=== PATIENT | female | born 1960 | race Caucasian/White ===

== ENCOUNTER 2016-06-02 12:43 | Inpatient (IN) | payer OTHER ==
[~2016-06-02] VITALS: Ht 162.6 cm; Wt 70.6 kg
[2016-06-02] VITALS (20 sets, daily range): BP systolic 106–122; BP diastolic 58–74; PULSE 77–104; RESP 16–20; BMI 28.1; BMI 32.8
[~2016-06-02 12:43] MED LIST: DEC2 PO; HYDR-906 PO; IBUP-1542 PO; LOSA25TA5 PO
[2016-06-02] MEDS ORDERED: FLUCONAZOLE 100 MG TAB PO SCH (14:30)
[2016-06-02] MEDS: SOD CHLORIDE 0.9% 1,000 ML IV SCH (15:15)
[2016-06-02] MEDS: ACYCLOVIR 400 MG TAB PO SCH ×2 (15:30→23:29)
--- NOTE | 2016-06-02 15:39 | CONS ---
Date/Time of Note Date/Time of Note DATE: 06/02/16 TIME: 15:19 Assessment/Plan Assessment/Plan Chief Complaint/Hosp Course 56 yo female with massive neck mass causing tracheal compression and airway compromise s/p tracheostomy placement. 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 Pt was given cycle 1A and 1B of R HyperCVAD but had only a partial response to therapy. She is now being admitted for cycle 1 of R-CODOX- M. Pt now afebrile and is now off antibiotics. Problems: Additional Assessment/Plan Additional Assessment/Plan -pt is to start cycle 1 R CODOX -M -Rituximab (Rituxan) as follows: * Cycle 1: 375 mg/m2 (660mg) IV on Day 1 -Cyclophosphamide (Cytoxan) 800 mg/m2 ( 1415mg) IV once per day on days 1 & 2 -Vincristine (Oncovin) 1.0 mg (dose reduced for neuropathy) days 1 & 15 -Doxorubicin (Adriamycin) 50 mg/m2 (88mg) IV once on day 1 -Methotrexate (MTX) 100mg/m2 (175mg) IV over 1 hour then 900mg/m2 (1590mg) over 23 hours on day 15. will start Na HCo3 prior to MTX infusion and only start MTX once Urine Ph > 7.0. Leucovorin 25mg IV q 4 hours will start 36 hours after MTX starts until MTX level is < 0.05. 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 all steroids should be discontinued for now unless they are part of the chemotherapy regimen -continue to work with physical therapy. # Neuropathy -gabapentin 300mg TID Approximately 40 min were spent at patient's bedside and in coordination of her care Consultation Date/Type/Reason Admit Date/Time 06/02/16 Date of Consultation: Jun 02, 2016 Type of Consultation: Hematology Reason for Consultation Burkitt's lymphoma Referring Provider: TELLY SOLANO MD Hx of Present Illness 56-year-old female over the last month who has been noticing a large swelling in her neck associated with difficulty breathing, voice changes and dysphagia. In the ER, the patient had a CT scan of the soft tissues of the neck that showed a large thyroid mass. Pt was subsequently been trached. She has since been diagnosed with aggressive STAGE IIB Burkitts lymphoma of the neck causing tracheal deviation. Of note her initial LDH was greater than 800. She started chemotherapy with R HyperCVAD but had debilitating neuropathy and only a partial response with cycle 1A and Cycle 1B. she is thus being electively admitted to start chemotherapy with R CODOX- M / IVAC. She currently feels well and is tolerating a puree diet. She denies any fevers or problems breathing Constitutional: no complaints Eyes: no complaints ENT: no complaints Respiratory: no complaints Cardiovascular: no complaints Gastrointestinal: no complaints Genitourinary: no complaints Musculoskeletal: bone/joint pain Skin: no complaints Neurologic: other (neuropathy) Psychological: anxiety Past Medical History hypothyroidism burkitts lymphoma Past Surgical History Past Surgical Hx: no surgical history Family History Significant Family History: no pertinent family hx Social History Smoking Status: Never smoker Drug Use: none Exam/Review of Systems Vital Signs Vitals Vital Signs Date Time Temp Pulse Resp B/P Pulse Ox O2 Delivery O2 Flow Rate FiO2 06/02/16 13:24 99.0 104 20 107/74 100 Room Air Exam Constitutional: alert, frail, oriented Psych: anxiety Head: normocephalic Eyes: nl conjunctiva ENMT: other (trach in place) Neck: non-tender, supple Respiratory: clear to auscultation, normal air movement Cardiovascular: regular rate and rhythm Gastrointestinal: soft Musculoskeletal: nl extremities to inspection, nl gait and stance Extremities: normal pulses Medications Medications Current Medications Sodium Chloride (NS) 1,000 ml @ 75 mls/hr [id number] IV Last administered on 06/06at 15:15; Admin Dose 75 MLS/HR; Start 06/02/16 at 14:30 Acyclovir (Zovirax) 400 mg BID PO ; Start 06/02/16 at 14:30 Fluconazole (Diflucan) 100 mg DAILY PO ; Start 06/02/16 at 14:30 CHANDRIKA MERLOS M.D. Jun 02, 2016 15:36
[2016-06-02 16:32] LABS: BASOPHILS % 0.1 % (0.0-2.0); EOSINOPHILS % 0.8 % (0.0-7.0); HEMATOCRIT 24.4 % (37.0-47.0); HEMOGLOBIN 8.3 g/dl (12.0-16.0); LYMPHOCYTES # 0.9 10^3/ul (0.8-2.9); LYMPHOCYTES % 14.3 % (15.0-51.0); MEAN CORPUSCULAR HEMOGLOBIN 28.8 pg (29.0-33.0); MEAN CORPUSCULAR HGB CONC 34.1 g/dl (32.0-37.0); MEAN CORPUSCULAR VOLUME 84.5 fl (82.0-101.0); MEAN PLATELET VOLUME 6.7 fl (7.4-10.4); MONOCYTE # 0.6 10^3/ul (0.3-0.9); MONOCYTES % 9.8 % (0.0-11.0); NEUTROPHIL # 4.8 10^3/ul (1.6-7.5); PLATELET COUNT 179 10^3/UL (140-440); RED BLOOD COUNT 2.89 10^6/ul (4.20-5.40); RED CELL DISTRIBUTION WIDTH 18.3 % (11.5-14.5); UNCORRECTED WBC 6.4 10^3/ul (4.8-10.8); WHITE BLOOD COUNT 6.4 10^3/ul (4.8-10.8)
[2016-06-02 16:35] LABS: ALBUMIN 3.1 g/dl (3.3-4.9); POTASSIUM 4.1 mmol/L (3.5-5.1)
[2016-06-02 16:37] LABS: BILIRUBIN,INDIRECT 0.5 mg/dl (0-1.1); BILIRUBIN,TOTAL 0.5 mg/dl (0.2-1.3); CREATININE 0.37 mg/dl (0.44-1.00)
[2016-06-02 16:38] LABS: ALBUMIN/GLOBULIN RATIO 1.24; TOTAL PROTEIN 5.6 g/dl (6.1-8.1); URIC ACID 2.7 mg/dl (3.1-7.9)
[2016-06-02 16:39] LABS: CALCIUM 8.6 mg/dl (8.4-10.2)
[2016-06-02 16:49] LABS: CONDITION 1; LH ANALYZER COMMENTS 1; SUSPECT 1
[2016-06-02] MEDS ORDERED: DEXAMETHASONE 10 MG/ML 1 ML INJ IV PRN (18:30)
[2016-06-02] MEDS ORDERED: DIPHENHYDRAMINE 50 MG INJ IV PRN (18:30)
[2016-06-02] MEDS ORDERED: [UNRECOGNIZED DRUG - REMARK] XX SCH (19:00)
[2016-06-02] MEDS ORDERED: ONDANSETRON IV ONE (19:30)
[2016-06-02] MEDS ORDERED: DIPHENHYDRAMINE IV ONE (19:30)
[2016-06-02] MEDS ORDERED: DEXAMETHASONE IV ONE (19:30)
[2016-06-02] MEDS ORDERED: [UNRECOGNIZED DRUG - OTHER] IV ONE (19:30)
[2016-06-02] MEDS ORDERED: RITUXIMAB IV SCH (20:00)
[2016-06-02] MEDS ORDERED: SOD CHLORIDE 0.9% IV SCH (20:00)
[2016-06-03] VITALS (23 sets, daily range): BP systolic 103–121; BP diastolic 59–73; PULSE 64–101; RESP 16–20
[2016-06-03] MEDS: SOD CHLORIDE 0.9% IV SCH (01:19)
[2016-06-03] MEDS: CYCLOPHOSPHAMIDE IV SCH (01:19)
[2016-06-03] MEDS ORDERED: SOD CHLORIDE 0.9% IV SCH ×3 (02:00→18:00)
[2016-06-03] MEDS ORDERED: VINCRISTINE IV SCH ×2 (02:00→18:00)
[2016-06-03] MEDS ORDERED: DOXORUBICIN IV SCH (03:00)
[2016-06-03] MEDS: SOD CHLORIDE 0.9% 1,000 ML IV SCH ×3 (03:29→15:46)
[2016-06-03 05:24] LABS: BASOPHILS % 0.2 % (0.0-2.0); EOSINOPHILS % 0.2 % (0.0-7.0); HEMATOCRIT 21.3 % (37.0-47.0); HEMOGLOBIN 7.3 g/dl (12.0-16.0); LYMPHOCYTES # 0.8 10^3/ul (0.8-2.9); LYMPHOCYTES % 11.5 % (15.0-51.0); MEAN CORPUSCULAR HEMOGLOBIN 28.9 pg (29.0-33.0); MEAN CORPUSCULAR HGB CONC 34.3 g/dl (32.0-37.0); MEAN CORPUSCULAR VOLUME 84.3 fl (82.0-101.0); MEAN PLATELET VOLUME 6.8 fl (7.4-10.4); MONOCYTE # 0.2 10^3/ul (0.3-0.9); MONOCYTES % 2.6 % (0.0-11.0); NEUTROPHIL # 5.7 10^3/ul (1.6-7.5); NEUTROPHILS % 85.5 % (39.0-77.0); PLATELET COUNT 188 10^3/UL (140-440); RED BLOOD COUNT 2.53 10^6/ul (4.20-5.40); RED CELL DISTRIBUTION WIDTH 18.7 % (11.5-14.5); UNCORRECTED WBC 6.7 10^3/ul (4.8-10.8); WHITE BLOOD COUNT 6.7 10^3/ul (4.8-10.8)
[2016-06-03 05:28] LABS: CONDITION 1; LH ANALYZER COMMENTS 1
[2016-06-03 05:38] LABS: POTASSIUM 4.1 mmol/L (3.5-5.1)
[2016-06-03 05:39] LABS: CREATININE 0.35 mg/dl (0.44-1.00)
[2016-06-03 05:40] LABS: ALBUMIN/GLOBULIN RATIO 1.11; BILIRUBIN,INDIRECT 0.4 mg/dl (0-1.1); BILIRUBIN,TOTAL 0.4 mg/dl (0.2-1.3); TOTAL PROTEIN 5.7 g/dl (6.1-8.1); URIC ACID 2.5 mg/dl (3.1-7.9)
[2016-06-03 05:41] LABS: CALCIUM 8.2 mg/dl (8.4-10.2)
[2016-06-03] MEDS: FLUCONAZOLE 100 MG TAB PO SCH (09:59)
[2016-06-03] MEDS: ACYCLOVIR 400 MG TAB PO SCH ×2 (09:59→21:20)
--- NOTE | 2016-06-03 11:04 | CONS ---
Date/Time of Note Date/Time of Note DATE: 06/03/16 TIME: 11:00 Assessment/Plan Assessment/Plan Chief Complaint/Hosp Course 56 yo female with massive neck mass causing tracheal compression and airway compromise s/p tracheostomy placement. 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 Pt was given cycle 1A and 1B of R HyperCVAD but had only a partial response to therapy and severe side effects. We have thus changed her chemotherapy regimen. She is now being admitted for cycle 1 of R-CODOX-M. Pt now afebrile and is now off antibiotics. Problems: Additional Assessment/Plan -continue with cycle 1 R CODOX -M. today is day 2 -Rituximab (Rituxan) as follows: * Cycle 1: 375 mg/m2 (660mg) IV on Day 1 -Cyclophosphamide (Cytoxan) 800 mg/m2 ( 1415mg) IV once per day on days 1 & 2 -Vincristine (Oncovin) 1.0 mg (dose reduced for neuropathy) days 1 & 15 -Doxorubicin (Adriamycin) 50 mg/m2 (88mg) IV once on day 1 -Methotrexate (MTX) 100mg/m2 (175mg) IV over 1 hour then 900mg/m2 (1590mg) over 23 hours on day 15. will start Na HCo3 prior to MTX infusion and only start MTX once Urine Ph > 7.0. Leucovorin 25mg IV q 4 hours will start 36 hours after MTX starts until MTX level is < 0.05. 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 all steroids should be discontinued for now unless they are part of the chemotherapy regimen -continue to work with physical therapy. # Neuropathy -gabapentin 300mg TID Approximately 40 min were spent at patient's bedside and in coordination of her care Consultation Date/Type/Reason Admit Date/Time Jun 02, 2016 at 15:10 Initial Consult Date 06/02/16 Type of Consultation: Hematology Reason for Consultation burkitt's lymphoma, of neck Referring Provider: TELLY SOLANO MD 24 HR Interval Summary Free Text/Dictation patient has started chemotherapy. today is day 2. tolerated chemotherapy well. working with physical therapy Exam/Review of Systems Vital Signs Vitals Vital Signs Date Time Temp Pulse Resp B/P Pulse Ox O2 Delivery O2 Flow Rate FiO2 06/03/16 09:00 99 20 99 Aerosol 5.0 28 06/03/16 07:15 114/67 06/03/16 04:00 97.6 Intake and Output 06/02/16 06/02/16 06/03/16 15:00 23:00 07:00 Intake Total 524.5 ml 1656 ml Output Total 850 ml Balance 524.5 ml 806 ml Exam Constitutional: alert, oriented Head: atraumatic, normocephalic Eyes: nl conjunctiva Neck: other (trach in place) Respiratory: clear to auscultation, normal air movement Cardiovascular: regular rate and rhythm Gastrointestinal: soft Musculoskeletal: nl extremities to inspection, nl gait and stance Extremities: normal pulses Results Result Diagram: 06/03/16 0415 06/03/16 0415 Results 24 hrs Laboratory Tests Test 06/02/16 15:45 06/03/16 04:15 Alanine Aminotransferase (ALT/SGPT) 80 H 79 H Albumin 3.1 L 3.0 L Albumin/Globulin Ratio 1.24 1.11 Alkaline Phosphatase 102 96 Anion Gap 7 L 10 Aspartate Amino Transf (AST/SGOT) 62 H 48 H Basophils # 0.0 0.0 Basophils % 0.1 0.2 Blood Morphology Comment Blood Urea Nitrogen 3 L 5 L Calcium Level 8.6 8.2 L Carbon Dioxide Level 34 H 29 Chloride Level 101 106 Creatinine 0.37 L 0.35 L Direct Bilirubin 0.00 0.00 Eosinophils # 0.0 0.0 Eosinophils % 0.8 0.2 Globulin 2.50 2.70 Glucose Level 94 163 Hematocrit 24.4 L 21.3 L Hemoglobin 8.3 L 7.3 L Indirect Bilirubin 0.5 0.4 Lactate Dehydrogenase 1541 H 1414 H Lymphocytes # 0.9 0.8 Lymphocytes % 14.3 L 11.5 L Mean Corpuscular Hemoglobin 28.8 L 28.9 L Mean Corpuscular Hemoglobin Concent 34.1 34.3 Mean Corpuscular Volume 84.5 84.3 Mean Platelet Volume 6.7 L 6.8 L Monocytes # 0.6 0.2 L Monocytes % 9.8 2.6 Neutrophils # 4.8 5.7 Neutrophils % 75.0 85.5 H Nucleated Red Blood Cells # 0.0 0.0 Nucleated Red Blood Cells % 0.0 0.0 Platelet Count 179 # 188 Potassium Level 4.1 4.1 Red Blood Count 2.89 L 2.53 L Red Cell Distribution Width 18.3 H 18.7 H Sodium Level 138 141 Total Bilirubin 0.5 0.4 Total Protein 5.6 L 5.7 L Uric Acid 2.7 L 2.5 L White Blood Count 6.4 # 6.7 Medications Medications Current Medications Sodium Chloride (NS) 1,000 ml @ 100 mls/hr Q10H IV Last administered on at 03:29; Admin Dose 100 MLS/HR; Start 06/02/16 at 14:30 Acyclovir 400 mg 400 mg BID PO Last administered on 06/03/16at 09:59; Admin Dose 400 MG; Start 06/02/16 at 14:30 Cyclophosphamide 1 gm/ Cyclophosphamide 415 mg/Sodium Chloride 250 ml @ 125 mls /hr Q24H IV Last administered on 06/03/16at 01:19; Admin Dose 125 MLS/HR; Start 06/03/16 at 00:00; Stop 06/04/16 at 01:59 Vincristine Sulfate 1 mg/ Sodium Chloride 51 ml @ 102 mls/hr Q15D IV Last administered on 06/03/16at 04:59; Admin Dose 102 MLS/HR; Start 06/03/16 at 02: 00; Stop 06/18/16 at 02:29 Methotrexate 175 mg/Sodium Chloride 250 ml @ 250 mls/hr ONCE IV ; Start at 03:00; Stop 06/18/16 at 03:59 Methotrexate 1590 mg/Sodium Chloride 1,000 ml @ 43.478 mls/ hr Q23H IV ; Start 06/18/16 at 04:00; Stop 06/19/16 at 02:59 Ondansetron HCl 16 mg/ Dexamethasone 10 mg/ Diphenhydramine HCl 25 mg/Dextrose 59.5 ml @ 252 mls/hr ONCE ONCE IV ; Start 06/03/16 at 23:30; Stop 06/03/16 at 23:44 Ondansetron HCl/ Dexamethasone/ Diphenhydramine HCl/Dextrose (Zofran Inj/ Decadron/Benadryl/ D5W) 59.5 ml @ 252 mls/hr ONCE ONCE IV ; Start 06/18/16 at 01:30; Stop 06/18/16 at 01:44 Diphenhydramine HCl (Benadryl) 25 mg Q4H PRN IV ALLERGIC REACTION; Start 06/02 at 18:30 Dexamethasone (Decadron) 10 mg Q4H PRN IV ALLERGIC REACTION; Start 06/02/16 at 18:30 Filgrastim 300 mcg 300 mcg DAILY@17 SC ; Start 06/04/16 at 17:00; Stop at 17:01 Leucovorin Calcium/Dextrose (Leucovorin Calcium Inj/D5W) 50 ml @ 50 mls/hr Q6H IV ; Start 06/19/16 at 15:00 Fluconazole 100 mg 100 mg DAILY PO Last administered on 06/03/16at 09:59; Admin Dose 100 MG; Start 06/03/16 at 09:00 Ondansetron HCl 8 mg/Sodium Chloride 54 ml @ 216 mls/hr Q6H PRN IV NAUSEA AND/ OR VOMITING; Start 06/02/16 at 18:30 Sodium Bicarbonate/ Dextrose (Na Bicarb/D5W) 1,000 ml @ 125 mls/hr Q8H IV ; Start 06/17/16 at 03:00 CHANDRIKA MERLOS M.D. Jun 03, 2016 11:04
--- NOTE | 2016-06-03 16:34 | QN ---
Documentation Comment [id number] GUERLINE SULLIVAN MD Jun 03, 2016 16:34
[2016-06-03] MEDS ORDERED: NACL 0.9% 3 ML SYG IV SCH (17:00)
[2016-06-03] MEDS ORDERED: BISACODYL (EC) 5 MG TAB PO PRN (17:00)
[2016-06-03] MEDS ORDERED: MAGNESIUM HYDROXIDE 30ML CUP PO PRN (17:00)
[2016-06-03] MEDS ORDERED: BISACODYL 10 MG SUPP PR PRN (17:00)
[2016-06-03] MEDS ORDERED: NA PHOSPHATE/BIPHOS 133 ML ENEMA PR PRN (17:00)
[2016-06-03] MEDS: ALBUTEROL/IPRATROPIUM (NEB) 3 ML AMP HHN SCH ×2 (17:30→21:29)
--- NOTE | 2016-06-03 18:03 | HP ---
DATE OF ADMISSION: 06/02/2016 HISTORY OF PRESENT ILLNESS: A 56-year-old female with massive neck mass in the past causing trachea l compression, airway compromise, status post tracheostomy placement. The patient has Burkitt's lym phoma, getting chemotherapy by Dr. Thomas, admitted again for chemotherapy. The patient is being adm itted for further management. The patient has a history of respiratory failure, Burkitt's lymphoma, history of cholelithiasis, right umbilical hernia, tracheostomy, status post pancytopenia. The pat ient has a history of healthcare-associated pneumonia, history of encephalopathy, history of chemoth erapy-induced pancytopenia, history of abdominal surgery. ALLERGY HISTORY: NEGATIVE. FAMILY HISTORY: Negative. SOCIAL HISTORY: Noncontributory at this point. MEDICATION HISTORY: The patient is on: 1. Zovirax. 2. Cyclophosphamide. 3. Decadron. 4. Benadryl. 5. Neupogen. 6. Diflucan. 7. Leucovorin 8. Methotrexate. 9. Zofran. 10. Sodium bicarbonate. 11. Vincristine. 12. Decadron. 13. [place]. 14. Ibuprofen. 15. Losartan. REVIEW OF SYSTEMS: Limited because of the tracheostomy. PHYSICAL EXAMINATION: GENERAL: The patient is awake and alert. VITAL SIGNS: Pulse 99, blood pressure . HEENT: Head is atraumatic, normocephalic. NECK: Tracheostomy in place. LUNGS: Clear. CARDIOVASCULAR: S1, S2 are normal. ABDOMEN: Soft. Bowel sounds positive. No palpable mass or hepatosplenomegaly. Surgical scar on a bdominal area. EXTREMITIES: There is no cyanosis, clubbing, edema. CENTRAL NERVOUS SYSTEM: The patient is awake, alert with no focal deficit. LABORATORY DATA: Sodium 130, potassium 4.1, BUN of 3, creatinine 0.37. Lactate dehydrogenase 1541. Alkaline phosphatase is 102, AST 62, ALT 80. The patient had a right lower lobe patchy consolidat ion on the previous x-ray done. IMPRESSION: The patient has Burkitt's lymphoma status post tracheostomy, status post thyroid mass, status post pancytopenia, abnormal liver function test. The patient has anemia. PLAN: Continue recommendation from Dr. Thomas for chemotherapy. The patient will be on oxygen and b ronchodilators as needed. Dictated By: GUERLINE MORALES/YUNI Conf#: [id number] DID#: [id number]
[2016-06-03] MEDS: NYSTATIN SUSP 5 ML CUP PO SCH (21:19)
[2016-06-03] MEDS: GABAPENTIN 100 MG CAP PO SCH (21:20)
[2016-06-03] MEDS: ARTIFICIAL TEARS 15 ML OPH BOTH EYES SCH (21:53)
[2016-06-03] MEDS ORDERED: [UNRECOGNIZED DRUG - OTHER] IV ONE (23:30)
[2016-06-03] MEDS ORDERED: DIPHENHYDRAMINE IV ONE (23:30)
[2016-06-03] MEDS ORDERED: ONDANSETRON IV ONE (23:30)
[2016-06-03] MEDS ORDERED: DEXAMETHASONE IV ONE (23:30)
[2016-06-04] MEDS: SOD CHLORIDE 0.9% IV SCH (00:43)
[2016-06-04] MEDS: CYCLOPHOSPHAMIDE IV SCH (00:43)
[2016-06-04 00:50] VITALS: BP 98/57; PULSE 75; RESP 18
[2016-06-04 01:14] VITALS: BP 99/57; PULSE 76; RESP 18
[2016-06-04] MEDS: ALBUTEROL/IPRATROPIUM (NEB) 3 ML AMP HHN SCH ×6 (01:32→21:28)
[2016-06-04] MEDS: LEVOTHYROXINE 100 MCG TAB PO SCH (05:23)
[2016-06-04] MEDS: SOD CHLORIDE 0.9% 1,000 ML IV SCH ×2 (05:23→18:39)
[2016-06-04] MEDS: PANTOPRAZOLE 40 MG INJ IV SCH (05:23)
[2016-06-04 05:46] VITALS: BP 105/60; PULSE 77; RESP 18
[2016-06-04 06:07] LABS: ALBUMIN 2.6 g/dl (3.3-4.9)
[2016-06-04 06:09] LABS: BILIRUBIN,INDIRECT 0.1 mg/dl (0-1.1); BILIRUBIN,TOTAL 0.1 mg/dl (0.2-1.3); CREATININE 0.31 mg/dl (0.44-1.00)
[2016-06-04 06:10] LABS: ALBUMIN/GLOBULIN RATIO 1.13; CALCIUM 7.9 mg/dl (8.4-10.2); TOTAL PROTEIN 4.9 g/dl (6.1-8.1)
[2016-06-04 07:31] LABS: EOSINOPHILS % 0.1 % (0.0-7.0); HEMOGLOBIN 7.1 g/dl (12.0-16.0); LYMPHOCYTES # 0.3 10^3/ul (0.8-2.9); LYMPHOCYTES % 4.7 % (15.0-51.0); MEAN CORPUSCULAR HEMOGLOBIN 28.6 pg (29.0-33.0); MEAN CORPUSCULAR HGB CONC 33.6 g/dl (32.0-37.0); MEAN CORPUSCULAR VOLUME 85.1 fl (82.0-101.0); MEAN PLATELET VOLUME 6.7 fl (7.4-10.4); MONOCYTE # 0.2 10^3/ul (0.3-0.9); MONOCYTES % 2.6 % (0.0-11.0); NEUTROPHIL # 6.6 10^3/ul (1.6-7.5); NEUTROPHILS % 92.6 % (39.0-77.0); PLATELET COUNT 195 10^3/UL (140-440); RED BLOOD COUNT 2.47 10^6/ul (4.20-5.40); RED CELL DISTRIBUTION WIDTH 19.3 % (11.5-14.5); UNCORRECTED WBC 7.1 10^3/ul (4.8-10.8); WHITE BLOOD COUNT 7.1 10^3/ul (4.8-10.8)
[2016-06-04 07:35] LABS: CONDITION 1; LH ANALYZER COMMENTS 1
[2016-06-04 08:00] VITALS: BP 109/56; PULSE 102; RESP 20
--- NOTE | 2016-06-04 08:33 | CONS ---
Date/Time of Note Date/Time of Note DATE: 06/04/16 TIME: 08:29 Assessment/Plan Assessment/Plan Chief Complaint/Hosp Course 56 yo female with massive neck mass causing tracheal compression and airway compromise s/p tracheostomy placement. 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 Pt was given cycle 1A and 1B of R HyperCVAD but had only a partial response to therapy and severe side effects. We have thus changed her chemotherapy regimen. She is now being admitted for cycle 1 of R-CODOX-M. Problems: (1) Tracheostomy present Status: Acute (2) Lymphoma Status: Chronic Additional Assessment/Plan -continue with cycle 1 R CODOX -M. today is day 2 -Rituximab (Rituxan) as follows: * Cycle 1: 375 mg/m2 (660mg) IV on Day 1 -Cyclophosphamide (Cytoxan) 800 mg/m2 ( 1415mg) IV once per day on days 1 & 2 -Vincristine (Oncovin) 1.0 mg (dose reduced for neuropathy) days 1 & 15 -Doxorubicin (Adriamycin) 50 mg/m2 (88mg) IV once on day 1 -Methotrexate (MTX) 100mg/m2 (175mg) IV over 1 hour then 900mg/m2 (1590mg) over 23 hours on day 15. will start Na HCo3 prior to MTX infusion and only start MTX once Urine Ph > 7.0. Leucovorin 25mg IV q 4 hours will start 36 hours after MTX starts until MTX level is < 0.05. 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 all steroids should be discontinued for now unless they are part of the chemotherapy regimen -continue to work with physical therapy. 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 -uric acid level ok -will continue to monitor LDH Approximately 40 min were spent at patient's bedside and in coordination of her care Consultation Date/Type/Reason Admit Date/Time Jun 02, 2016 at 15:10 Initial Consult Date 12/12/16 Type of Consultation: Hematology Reason for Consultation burkitt's lymphoma Referring Provider: TELLY SOLANO MD 24 HR Interval Summary Free Text/Dictation no acute overnight events. working with physical therapy Exam/Review of Systems Vital Signs Vitals Vital Signs Date Time Temp Pulse Resp B/P Pulse Ox O2 Delivery O2 Flow Rate FiO2 06/04/16 05:46 98.9 77 18 105/60 98 Trach Collar 5.0 06/04/16 05:42 28 Intake and Output 06/03/16 06/03/16 06/04/16 15:00 23:00 07:00 Intake Total 144 ml 1600 ml 350 ml Output Total 1000 ml 850 ml Balance 144 ml 600 ml -500 ml Exam Constitutional: alert, oriented Psych: no complaints Head: atraumatic, normocephalic Eyes: nl conjunctiva ENMT: other (trach in place) Neck: other (mass has decreased in size), supple Respiratory: clear to auscultation, normal air movement Cardiovascular: regular rate and rhythm Gastrointestinal: soft Musculoskeletal: nl extremities to inspection, nl gait and stance Extremities: normal pulses Neurological: DIETETIC AIDE II-XII intact Results Result Diagram: 06/04/1642706/04/16427 Results 24 hrs Laboratory Tests Test 06/04/16 04:28 Alanine Aminotransferase (ALT/SGPT) 61 Albumin 2.6 L Albumin/Globulin Ratio 1.13 Alkaline Phosphatase 78 Anion Gap 14 Aspartate Amino Transf (AST/SGOT) 37 Basophils # 0.0 Basophils % 0.0 Blood Morphology Comment Blood Urea Nitrogen 5 L Calcium Level 7.9 L Carbon Dioxide Level 24 Chloride Level 111 H Creatinine 0.31 L Direct Bilirubin 0.00 Eosinophils # 0.0 Eosinophils % 0.1 Globulin 2.30 Glucose Level 191 Hematocrit 21.0 L Hemoglobin 7.1 L Indirect Bilirubin 0.1 Lactate Dehydrogenase 1089 H Lymphocytes # 0.3 L Lymphocytes % 4.7 L Mean Corpuscular Hemoglobin 28.6 L Mean Corpuscular Hemoglobin Concent 33.6 Mean Corpuscular Volume 85.1 Mean Platelet Volume 6.7 L Monocytes # 0.2 L Monocytes % 2.6 Neutrophils # 6.6 Neutrophils % 92.6 H Nucleated Red Blood Cells # 0.0 Nucleated Red Blood Cells % 0.0 Platelet Count 195 Potassium Level 3.0 L Red Blood Count 2.47 L Red Cell Distribution Width 19.3 H Sodium Level 146 H Total Bilirubin 0.1 L Total Protein 4.9 L Uric Acid 3.0 L White Blood Count 7.1 Medications Medications Current Medications Sodium Chloride (NS) 1,000 ml @ 100 mls/hr Q10H IV Last administered on at 05:23; Admin Dose 100 MLS/HR; Start 06/02/16 at 14:30 Acyclovir 400 mg 400 mg BID PO Last administered on 06/03/16at 21:20; Admin Dose 400 MG; Start 06/02/16 at 14:30 Methotrexate 175 mg/Sodium Chloride 250 ml @ 250 mls/hr ONCE IV ; Start at 03:00; Stop 06/16/16 at 03:59 Methotrexate 1590 mg/Sodium Chloride 1,000 ml @ 43.478 mls/ hr Q23H IV ; Start 06/16/16 at 04:00; Stop 06/17/16 at 02:59 Ondansetron HCl/ Dexamethasone/ Diphenhydramine HCl/Dextrose (Zofran Inj/ Decadron/Benadryl/ D5W) 59.5 ml @ 120 mls/hr ONCE IV ; Start 06/16/16 at 02:00 ; Stop 06/16/16 at 02:30 Diphenhydramine HCl (Benadryl) 25 mg Q4H PRN IV ALLERGIC REACTION; Start 06/02 at 18:30 Dexamethasone (Decadron) 10 mg Q4H PRN IV ALLERGIC REACTION; Start 06/02/16 at 18:30 Filgrastim 300 mcg 300 mcg DAILY@17 SC ; Start 06/04/16 at 17:00; Stop at 17:01 Leucovorin Calcium/Dextrose (Leucovorin Calcium Inj/D5W) 50 ml @ 50 mls/hr Q6H IV ; Start 06/17/16 at 15:00 Fluconazole 100 mg 100 mg DAILY PO Last administered on 06/03/16at 09:59; Admin Dose 100 MG; Start 06/03/16 at 09:00 Ondansetron HCl 8 mg/Sodium Chloride 54 ml @ 216 mls/hr Q6H PRN IV NAUSEA AND/ OR VOMITING; Start 06/02/16 at 18:30 Sodium Bicarbonate/ Dextrose (Na Bicarb/D5W) 1,000 ml @ 125 mls/hr Q8H IV ; Start 06/17/16 at 03:00 Ondansetron HCl (Zofran Inj) 4 mg Q6H PRN IV NAUSEA AND/OR VOMITING; Start at 17:00 Acetaminophen (Tylenol Tab) 650 mg Q6H PRN PO PAIN LEVEL 1-3 OR FEVER; Start 06/03/16 at 17:00 Acetaminophen (Tylenol Supp) 650 mg Q6H PRN AR PAIN LEVEL 1-3 OR FEVER; Start 06/03/16 at 17:00 Docusate Sodium (Colace) 100 mg Q12H PRN PO CONSTIPATION; Start 06/03/16 at 17 :00 Magnesium Hydroxide (Milk Of Mag) 30 ml DAILY PRN PO CONSTIPATION; Start 06/03 at 17:00 Bisacodyl (Dulcolax) 5 mg DAILY PRN PO CONSTIPATION; Start 06/03/16 at 17:00 Bisacodyl (Dulcolax Supp) 10 mg DAILY PRN AR CONSTIPATION; Start 06/03/16 at 17:00 Sodium Biphosphate/ Sodium Phosphate (Fleet Enema) 133 ml DAILY PRN AR CONSTIPATION; Start 06/03/16 at 17:00 Pantoprazole (Protonix Iv) 40 mg DAILY@06 IV Last administered on 06/04/16at 05 :23; Admin Dose 40 MG; Start 06/04/16 at 06:00 Enoxaparin Sodium (Lovenox) 30 mg DAILY SC ; Start 06/04/16 at 09:00 Allopurinol (Zyloprim) 300 mg DAILY PO ; Start 06/04/16 at 09:00 Eye Lubricant (Artificial Tears Oph) 2 drop QID BOTH EYES Last administered on 06/03/16at 21:53; Admin Dose 2 DROP; Start 06/03/16 at 21:00 Eye Lubricant ([place] Oint) 1 applic DAILY BOTH EYES ; Start 06/04/16 at 09:00 Gabapentin (Neurontin) 200 mg TID PO Last administered on 06/03/16at 21:20; Admin Dose 200 MG; Start 06/03/16 at 21:00 Levothyroxine Sodium (Synthroid) 100 mcg DAILY@06 PO Last administered on 06/04at 05:23; Admin Dose 100 MCG; Start 06/04/16 at 06:00 Nystatin 5 ml 5 ml QID PO Last administered on 06/03/16at 21:19; Admin Dose 5 ML; Start 06/03/16 at 21:00 Vincristine Sulfate/Sodium Chloride (Oncovin/NS) 51 ml @ 102 mls/hr 05 IV ; Start 06/17/16 at 05:00; Stop 06/17/16 at 05:29 CHANDRIKA MERLOS M.D. Jun 04, 2016 08:33
[2016-06-04] MEDS: ENOXAPARIN 30 MG/0.3 ML SYG SC SCH (09:33)
[2016-06-04] MEDS: ACYCLOVIR 400 MG TAB PO SCH ×2 (09:34→21:19)
[2016-06-04] MEDS: FLUCONAZOLE 100 MG TAB PO SCH (09:34)
[2016-06-04] MEDS: GABAPENTIN 100 MG CAP PO SCH ×3 (09:34→21:19)
[2016-06-04] MEDS: ALLOPURINOL 300 MG TAB PO SCH (09:34)
[2016-06-04] MEDS: NYSTATIN SUSP 5 ML CUP PO SCH ×4 (09:34→21:19)
[2016-06-04] MEDS: ARTIFICIAL TEARS 15 ML OPH BOTH EYES SCH ×4 (09:56→21:19)
[2016-06-04] MEDS: OCULAR LUBRICANT 3.5 GM OPH OINT BOTH EYES SCH (09:56)
[2016-06-04] MEDS ORDERED: POTASSIUM CHLORIDE 20 MEQ in SOD CHLORIDE 0.9% 100 ML IVPB ONE (10:00)
[2016-06-04] MEDS: FILGRASTIM 300 MCG INJ SC SCH (18:43)
--- NOTE | 2016-06-04 20:09 | PN ---
Date/Time of Note Date/Time of Note DATE: 06/04/16 TIME: 20:08 Assessment/Plan VTE Prophylaxis VTE Prophylaxis Intervention: other Lines/Catheters IV [facility] PICC Line Central line still needed: Yes Urinary Cath still in place: No Assessment/Plan Chief Complaint/Hosp Course IMPRESSION: The patient has Burkitt's lymphoma status post tracheostomy, status post thyroid mass, status post pancytopenia, abnormal liver function test. The patient has anemia. hypokalemiaplan chemo kcl Problems: Subjective 24 Hr Interval Summary Respiratory: No shortness of breath Gastrointestinal: no complaints Genitourinary: no complaints Exam/Review of Systems Vital Signs Vitals Vital Signs Date Time Temp Pulse Resp B/P Pulse Ox O2 Delivery O2 Flow Rate FiO2 06/04/16 16:37 80 20 100 Aerosol 5.0 28 06/04/16 08:00 98.0 109/56 Intake and Output 06/03/16 06/03/16 06/04/16 15:00 23:00 07:00 Intake Total 144 ml 1600 ml 350 ml Output Total 1000 ml 850 ml Balance 144 ml 600 ml -500 ml Exam Cardiovascular: regular rate and rhythm Gastrointestinal: nl liver, spleen, non-tender, soft Extremities: No edema 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, nl mental status Results Result Diagram: 06/04/1642706/04/16427 Results 24 hrs Laboratory Tests Test 06/04/16 04:28 Alanine Aminotransferase (ALT/SGPT) 61 Albumin 2.6 L Albumin/Globulin Ratio 1.13 Alkaline Phosphatase 78 Anion Gap 14 Aspartate Amino Transf (AST/SGOT) 37 Basophils # 0.0 Basophils % 0.0 Blood Morphology Comment Blood Urea Nitrogen 5 L Calcium Level 7.9 L Carbon Dioxide Level 24 Chloride Level 111 H Creatinine 0.31 L Direct Bilirubin 0.00 Eosinophils # 0.0 Eosinophils % 0.1 Globulin 2.30 Glucose Level 191 Hematocrit 21.0 L Hemoglobin 7.1 L Indirect Bilirubin 0.1 Lactate Dehydrogenase 1089 H Lymphocytes # 0.3 L Lymphocytes % 4.7 L Mean Corpuscular Hemoglobin 28.6 L Mean Corpuscular Hemoglobin Concent 33.6 Mean Corpuscular Volume 85.1 Mean Platelet Volume 6.7 L Monocytes # 0.2 L Monocytes % 2.6 Neutrophils # 6.6 Neutrophils % 92.6 H Nucleated Red Blood Cells # 0.0 Nucleated Red Blood Cells % 0.0 Platelet Count 195 Potassium Level 3.0 L Red Blood Count 2.47 L Red Cell Distribution Width 19.3 H Sodium Level 146 H Total Bilirubin 0.1 L Total Protein 4.9 L Uric Acid 3.0 L White Blood Count 7.1 Medications Medications Current Medications Sodium Chloride (NS) 1,000 ml @ 100 mls/hr Q10H IV Last administered on at 18:39; Admin Dose 100 MLS/HR; Start 06/02/16 at 14:30 Acyclovir 400 mg 400 mg BID PO Last administered on 06/04/16at 09:34; Admin Dose 400 MG; Start 06/02/16 at 14:30 Methotrexate 175 mg/Sodium Chloride 250 ml @ 250 mls/hr ONCE IV ; Start at 03:00; Stop 06/16/16 at 03:59 Methotrexate 1590 mg/Sodium Chloride 1,000 ml @ 43.478 mls/ hr Q23H IV ; Start 06/16/16 at 04:00; Stop 06/17/16 at 02:59 Ondansetron HCl/ Dexamethasone/ Diphenhydramine HCl/Dextrose (Zofran Inj/ Decadron/Benadryl/ D5W) 59.5 ml @ 120 mls/hr ONCE IV ; Start 06/16/16 at 02:00 ; Stop 06/16/16 at 02:30 Diphenhydramine HCl (Benadryl) 25 mg Q4H PRN IV ALLERGIC REACTION; Start 06/02 at 18:30 Dexamethasone (Decadron) 10 mg Q4H PRN IV ALLERGIC REACTION; Start 06/02/16 at 18:30 Filgrastim 300 mcg 300 mcg DAILY@17 SC Last administered on 06/04/16at 18:43; Admin Dose 300 MCG; Start 06/04/16 at 17:00; Stop 06/08/16 at 17:01 Leucovorin Calcium/Dextrose (Leucovorin Calcium Inj/D5W) 50 ml @ 50 mls/hr Q6H IV ; Start 06/17/16 at 15:00 Fluconazole 100 mg 100 mg DAILY PO Last administered on 06/04/16at 09:34; Admin Dose 100 MG; Start 06/03/16 at 09:00 Ondansetron HCl 8 mg/Sodium Chloride 54 ml @ 216 mls/hr Q6H PRN IV NAUSEA AND/ OR VOMITING; Start 06/02/16 at 18:30 Sodium Bicarbonate/ Dextrose (Na Bicarb/D5W) 1,000 ml @ 125 mls/hr Q8H IV ; Start 06/17/16 at 03:00 Ondansetron HCl (Zofran Inj) 4 mg Q6H PRN IV NAUSEA AND/OR VOMITING; Start at 17:00 Acetaminophen (Tylenol Tab) 650 mg Q6H PRN PO PAIN LEVEL 1-3 OR FEVER; Start 06/03/16 at 17:00 Acetaminophen (Tylenol Supp) 650 mg Q6H PRN [place] PAIN LEVEL 1-3 OR FEVER; Start 06/03/16 at 17:00 Docusate Sodium (Colace) 100 mg Q12H PRN PO CONSTIPATION; Start 06/03/16 at 17 :00 Magnesium Hydroxide (Milk Of Mag) 30 ml DAILY PRN PO CONSTIPATION; Start 06/03 at 17:00 Bisacodyl (Dulcolax) 5 mg DAILY PRN PO CONSTIPATION; Start 06/03/16 at 17:00 Bisacodyl (Dulcolax Supp) 10 mg DAILY PRN [place] CONSTIPATION; Start 06/03/16 at 17:00 Sodium Biphosphate/ Sodium Phosphate (Fleet Enema) 133 ml DAILY PRN [place] CONSTIPATION; Start 06/03/16 at 17:00 Pantoprazole (Protonix Iv) 40 mg DAILY@06 IV Last administered on 06/04/16at 05 :23; Admin Dose 40 MG; Start 06/04/16 at 06:00 Enoxaparin Sodium (Lovenox) 30 mg DAILY SC Last administered on 06/04/16at 09: 33; Admin Dose 30 MG; Start 06/04/16 at 09:00 Allopurinol (Zyloprim) 300 mg DAILY PO Last administered on 06/04/16at 09:34; Admin Dose 300 MG; Start 06/04/16 at 09:00 Eye Lubricant (Artificial Tears Oph) 2 drop QID BOTH EYES Last administered on 06/04/16at 18:39; Admin Dose 2 DROP; Start 06/03/16 at 21:00 Eye Lubricant (Akwa Oint) 1 applic DAILY BOTH EYES Last administered on at 09:56; Admin Dose 1 APPLIC; Start 06/04/16 at 09:00 Gabapentin (Neurontin) 200 mg TID PO Last administered on 06/04/16at 09:34; Admin Dose 200 MG; Start 06/03/16 at 21:00 Levothyroxine Sodium (Synthroid) 100 mcg DAILY@06 PO Last administered on 06/04at 05:23; Admin Dose 100 MCG; Start 06/04/16 at 06:00 Nystatin 5 ml 5 ml QID PO Last administered on 06/04/16at 18:39; Admin Dose 5 ML; Start 06/03/16 at 21:00 Vincristine Sulfate/Sodium Chloride (Oncovin/NS) 51 ml @ 102 mls/hr 05 IV ; Start 06/17/16 at 05:00; Stop 06/17/16 at 05:29 Mupirocin (Bactroban) 1 applic BID TOP ; Start 06/04/16 at 21:00 GUERLINE SULLIVAN MD Jun 04, 2016 20:09
[2016-06-04 21:05] VITALS: BP 124/61; PULSE 97; RESP 18
[2016-06-04] MEDS: MUPIROCIN 2% 22 GM OINT TOP SCH (21:26)
[2016-06-05] MEDS: ALBUTEROL/IPRATROPIUM (NEB) 3 ML AMP HHN SCH ×6 (01:03→21:25)
[2016-06-05] MEDS: SOD CHLORIDE 0.9% 1,000 ML IV SCH ×3 (03:46→22:30)
[2016-06-05 05:47] LABS: EOSINOPHILS % 0.1 % (0.0-7.0); HEMATOCRIT 26.9 % (37.0-47.0); HEMOGLOBIN 9.1 g/dl (12.0-16.0); LYMPHOCYTES # 0.3 10^3/ul (0.8-2.9); LYMPHOCYTES % 4.1 % (15.0-51.0); MEAN CORPUSCULAR HEMOGLOBIN 28.7 pg (29.0-33.0); MEAN CORPUSCULAR HGB CONC 33.8 g/dl (32.0-37.0); MEAN PLATELET VOLUME 6.6 fl (7.4-10.4); MONOCYTE # 0.1 10^3/ul (0.3-0.9); MONOCYTES % 0.9 % (0.0-11.0); NEUTROPHIL # 6.9 10^3/ul (1.6-7.5); NEUTROPHILS % 94.9 % (39.0-77.0); PLATELET COUNT 168 10^3/UL (140-440); RED BLOOD COUNT 3.17 10^6/ul (4.20-5.40); UNCORRECTED WBC 7.3 10^3/ul (4.8-10.8); WHITE BLOOD COUNT 7.3 10^3/ul (4.8-10.8)
[2016-06-05 06:01] LABS: CONDITION 1; LH ANALYZER COMMENTS 1; SUSPECT 1
[2016-06-05 06:10] LABS: ALBUMIN 2.6 g/dl (3.3-4.9)
[2016-06-05 06:11] LABS: POTASSIUM 3.1 mmol/L (3.5-5.1)
[2016-06-05 06:13] LABS: ALBUMIN/GLOBULIN RATIO 1.13; BILIRUBIN,INDIRECT 0.2 mg/dl (0-1.1); BILIRUBIN,TOTAL 0.2 mg/dl (0.2-1.3); CALCIUM 8.1 mg/dl (8.4-10.2); CREATININE 0.33 mg/dl (0.44-1.00); TOTAL PROTEIN 4.9 g/dl (6.1-8.1); URIC ACID 3.1 mg/dl (3.1-7.9)
[2016-06-05] MEDS: PANTOPRAZOLE 40 MG INJ IV SCH (06:31)
[2016-06-05] MEDS: LEVOTHYROXINE 100 MCG TAB PO SCH (06:31)
[2016-06-05 07:58] VITALS: BP 153/77; PULSE 96; RESP 20
[2016-06-05] MEDS: ALLOPURINOL 300 MG TAB PO SCH (08:50)
[2016-06-05] MEDS: OCULAR LUBRICANT 3.5 GM OPH OINT BOTH EYES SCH (08:50)
[2016-06-05] MEDS: GABAPENTIN 100 MG CAP PO SCH ×3 (08:50→21:34)
[2016-06-05] MEDS: ACYCLOVIR 400 MG TAB PO SCH ×2 (08:50→21:35)
[2016-06-05] MEDS: NYSTATIN SUSP 5 ML CUP PO SCH ×4 (08:50→21:34)
[2016-06-05] MEDS: ARTIFICIAL TEARS 15 ML OPH BOTH EYES SCH ×4 (08:51→21:35)
[2016-06-05] MEDS: MUPIROCIN 2% 22 GM OINT TOP SCH ×2 (08:51→21:35)
[2016-06-05] MEDS: FLUCONAZOLE 100 MG TAB PO SCH (08:51)
[2016-06-05] MEDS: ENOXAPARIN 30 MG/0.3 ML SYG SC SCH (09:04)
[2016-06-05] MEDS ORDERED: POTASSIUM CHLORIDE 250 ML IVPB SCH (10:00)
--- NOTE | 2016-06-05 10:59 | PN ---
Date/Time of Note Date/Time of Note DATE: 06/05/16 TIME: 10:55 Assessment/Plan VTE Prophylaxis VTE Prophylaxis Intervention: other Lines/Catheters IV Catheter Type (from Nrs): PICC Line Central line still needed: Yes Urinary Cath still in place: No Assessment/Plan Chief Complaint/Hosp Course IMPRESSION: The patient has Burkitt's lymphoma status post tracheostomy, status post thyroid mass, status post pancytopenia, abnormal liver function test. The patient has anemia. hypokalemia plan chemo kcl Problems: Subjective 24 Hr Interval Summary Cardiovascular: no complaints Gastrointestinal: no complaints Exam/Review of Systems Vital Signs Vitals Vital Signs Date Time Temp Pulse Resp B/P Pulse Ox O2 Delivery O2 Flow Rate FiO2 06/05/16 10:34 101 26 100 Aerosol 5.0 28 06/05/16 07:58 99.0 153/77 Intake and Output 06/04/16 06/04/16 06/05/16 15:00 23:00 07:00 Intake Total 2210 ml 1600 ml Output Total 850 ml Balance 2210 ml 750 ml Exam Respiratory: clear to auscultation Cardiovascular: regular rate and rhythm Gastrointestinal: soft Musculoskeletal: nl extremities to inspection Extremities: No clubbing, No edema Results Result Diagram: 06/05/16 0439 06/05/16 0439 Results 24 hrs Laboratory Tests Test 06/05/16 04:39 Alanine Aminotransferase (ALT/SGPT) 62 Albumin 2.6 L Albumin/Globulin Ratio 1.13 Alkaline Phosphatase 84 Anion Gap 9 # Aspartate Amino Transf (AST/SGOT) 41 Basophils # 0.0 Basophils % 0.0 Blood Morphology Comment Blood Urea Nitrogen 3 L Calcium Level 8.1 L Carbon Dioxide Level 27 Chloride Level 112 H Creatinine 0.33 L Direct Bilirubin 0.00 Eosinophils # 0.0 Eosinophils % 0.1 Globulin 2.30 Glucose Level 86 # Hematocrit 26.9 #L Hemoglobin 9.1 #L Indirect Bilirubin 0.2 Lactate Dehydrogenase 1185 H Lymphocytes # 0.3 L Lymphocytes % 4.1 L Mean Corpuscular Hemoglobin 28.7 L Mean Corpuscular Hemoglobin Concent 33.8 Mean Corpuscular Volume 85.0 Mean Platelet Volume 6.6 L Monocytes # 0.1 L Monocytes % 0.9 Neutrophils # 6.9 Neutrophils % 94.9 H Nucleated Red Blood Cells # 0.0 Nucleated Red Blood Cells % 0.0 Platelet Count 168 Potassium Level 3.1 L Red Blood Count 3.17 #L Red Cell Distribution Width 18.0 H Sodium Level 145 H Total Bilirubin 0.2 Total Protein 4.9 L Uric Acid 3.1 White Blood Count 7.3 Medications Medications Current Medications Sodium Chloride (NS) 1,000 ml @ 100 mls/hr Q10H IV Last administered on at 03:46; Admin Dose 100 MLS/HR; Start 06/02/16 at 14:30 Acyclovir 400 mg 400 mg BID PO Last administered on 06/05/16at 08:50; Admin Dose 400 MG; Start 06/02/16 at 14:30 Methotrexate 175 mg/Sodium Chloride 250 ml @ 250 mls/hr ONCE IV ; Start at 03:00; Stop 06/16/16 at 03:59 Methotrexate 1590 mg/Sodium Chloride 1,000 ml @ 43.478 mls/ hr Q23H IV ; Start 06/16/16 at 04:00; Stop 06/17/16 at 02:59 Ondansetron HCl/ Dexamethasone/ Diphenhydramine HCl/Dextrose (Zofran Inj/ Decadron/Benadryl/ D5W) 59.5 ml @ 120 mls/hr ONCE IV ; Start 06/16/16 at 02:00 ; Stop 06/16/16 at 02:30 Diphenhydramine HCl (Benadryl) 25 mg Q4H PRN IV ALLERGIC REACTION; Start 06/02 at 18:30 Dexamethasone (Decadron) 10 mg Q4H PRN IV ALLERGIC REACTION; Start 06/02/16 at 18:30 Filgrastim 300 mcg 300 mcg DAILY@17 SC Last administered on 06/04/16at 18:43; Admin Dose 300 MCG; Start 06/04/16 at 17:00; Stop 06/08/16 at 17:01 Leucovorin Calcium/Dextrose (Leucovorin Calcium Inj/D5W) 50 ml @ 50 mls/hr Q6H IV ; Start 06/17/16 at 15:00 Fluconazole 100 mg 100 mg DAILY PO Last administered on 06/05/16at 08:51; Admin Dose 100 MG; Start 06/03/16 at 09:00 Ondansetron HCl 8 mg/Sodium Chloride 54 ml @ 216 mls/hr Q6H PRN IV NAUSEA AND/ OR VOMITING; Start 06/02/16 at 18:30 Sodium Bicarbonate/ Dextrose (Na Bicarb/D5W) 1,000 ml @ 125 mls/hr Q8H IV ; Start 06/17/16 at 03:00 Ondansetron HCl (Zofran Inj) 4 mg Q6H PRN IV NAUSEA AND/OR VOMITING; Start at 17:00 Acetaminophen (Tylenol Tab) 650 mg Q6H PRN PO PAIN LEVEL 1-3 OR FEVER; Start 06/03/16 at 17:00 Acetaminophen (Tylenol Supp) 650 mg Q6H PRN [place] PAIN LEVEL 1-3 OR FEVER; Start 06/03/16 at 17:00 Docusate Sodium (Colace) 100 mg Q12H PRN PO CONSTIPATION; Start 06/03/16 at 17 :00 Magnesium Hydroxide (Milk Of Mag) 30 ml DAILY PRN PO CONSTIPATION; Start 06/03 at 17:00 Bisacodyl (Dulcolax) 5 mg DAILY PRN PO CONSTIPATION; Start 06/03/16 at 17:00 Bisacodyl (Dulcolax Supp) 10 mg DAILY PRN [place] CONSTIPATION; Start 06/03/16 at 17:00 Sodium Biphosphate/ Sodium Phosphate (Fleet Enema) 133 ml DAILY PRN [place] CONSTIPATION; Start 06/03/16 at 17:00 Pantoprazole (Protonix Iv) 40 mg DAILY@06 IV Last administered on 06/05/16at 06 :31; Admin Dose 40 MG; Start 06/04/16 at 06:00 Enoxaparin Sodium (Lovenox) 30 mg DAILY SC Last administered on 06/05/16at 09: 04; Admin Dose 30 MG; Start 06/04/16 at 09:00 Allopurinol (Zyloprim) 300 mg DAILY PO Last administered on 06/05/16at 08:50; Admin Dose 300 MG; Start 06/04/16 at 09:00 Eye Lubricant (Artificial Tears Oph) 2 drop QID BOTH EYES Last administered on 06/05/16at 08:51; Admin Dose 2 DROP; Start 06/03/16 at 21:00 Eye Lubricant (Akwa Oint) 1 applic DAILY BOTH EYES Last administered on at 08:50; Admin Dose 1 APPLIC; Start 06/04/16 at 09:00 Gabapentin (Neurontin) 200 mg TID PO Last administered on 06/05/16at 08:50; Admin Dose 200 MG; Start 06/03/16 at 21:00 Levothyroxine Sodium (Synthroid) 100 mcg DAILY@06 PO Last administered on 06/05at 06:31; Admin Dose 100 MCG; Start 06/04/16 at 06:00 Nystatin 5 ml 5 ml QID PO Last administered on 06/05/16at 08:50; Admin Dose 5 ML; Start 06/03/16 at 21:00 Vincristine Sulfate/Sodium Chloride (Oncovin/NS) 51 ml @ 102 mls/hr 05 IV ; Start 06/17/16 at 05:00; Stop 06/17/16 at 05:29 Mupirocin 1 applic 1 applic BID TOP Last administered on 06/05/16at 08:51; Admin Dose 1 APPLIC; Start 06/04/16 at 21:00 Potassium Chloride (KCl 40 MEQ/250 ML NS) 250 ml @ 62.5 mls/hr ONCE IVPB Last administered on 06/05/16at 09:32; Admin Dose 62.5 MLS/HR; Start 06/05/16 at 10: 00; Stop 06/05/16 at 13:59 GUERLINE SULLIVAN MD Jun 05, 2016 10:58
--- NOTE | 2016-06-05 13:02 | CONS ---
Date/Time of Note Date/Time of Note DATE: 06/05/16 TIME: 12:58 Assessment/Plan Assessment/Plan Chief Complaint/Hosp Course 56 yo female with massive neck mass causing tracheal compression and airway compromise s/p tracheostomy placement. 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 Pt was given cycle 1A and 1B of R HyperCVAD but had only a partial response to therapy and severe side effects. We have thus changed her chemotherapy regimen. She is now being admitted for cycle 1 of R-CODOX-M. Problems: Additional Assessment/Plan -continue with cycle 1 R CODOX -M. today is day 3 -Rituximab (Rituxan) as follows: * Cycle 1: 375 mg/m2 (660mg) IV on Day 1 -Cyclophosphamide (Cytoxan) 800 mg/m2 ( 1415mg) IV once per day on days 1 & 2 -Vincristine (Oncovin) 1.0 mg (dose reduced for neuropathy) days 1 & 15 -Doxorubicin (Adriamycin) 50 mg/m2 (88mg) IV once on day 1 -Methotrexate (MTX) 100mg/m2 (175mg) IV over 1 hour then 900mg/m2 (1590mg) over 23 hours on day 15. will start Na HCo3 prior to MTX infusion and only start MTX once Urine Ph > 7.0. Leucovorin 25mg IV q 4 hours will start 36 hours after MTX starts until MTX level is < 0.05. 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 all steroids should be discontinued for now unless they are part of the chemotherapy regimen -continue to work with physical therapy. 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 -uric acid level ok -will continue to monitor LDH Approximately 40 min were spent at patient's bedside and in coordination of her care Consultation Date/Type/Reason Admit Date/Time Jun 02, 2016 at 15:10 Initial Consult Date 06/02/16 Type of Consultation: Hematology Reason for Consultation burkitt's lymphoma Referring Provider: TELLY SOLANO MD 24 HR Interval Summary Free Text/Dictation patient feels more weak today Exam/Review of Systems Vital Signs Vitals Vital Signs Date Time Temp Pulse Resp B/P Pulse Ox O2 Delivery O2 Flow Rate FiO2 06/05/16 10:34 101 26 100 Aerosol 5.0 28 06/05/16 07:58 99.0 153/77 Intake and Output 06/04/16 06/04/16 06/05/16 15:00 23:00 07:00 Intake Total 2210 ml 1600 ml Output Total 850 ml Balance 2210 ml 750 ml Exam Head: atraumatic, normocephalic Eyes: nl conjunctiva ENMT: nl external ears & nose Neck: other (trach in place), supple Respiratory: clear to auscultation, normal air movement Cardiovascular: regular rate and rhythm Gastrointestinal: soft Musculoskeletal: nl extremities to inspection, nl gait and stance Extremities: normal pulses Results Result Diagram: 06/05/16 0439 06/05/16 0439 Results 24 hrs Laboratory Tests Test 06/05/16 04:39 Alanine Aminotransferase (ALT/SGPT) 62 Albumin 2.6 L Albumin/Globulin Ratio 1.13 Alkaline Phosphatase 84 Anion Gap 9 # Aspartate Amino Transf (AST/SGOT) 41 Basophils # 0.0 Basophils % 0.0 Blood Morphology Comment Blood Urea Nitrogen 3 L Calcium Level 8.1 L Carbon Dioxide Level 27 Chloride Level 112 H Creatinine 0.33 L Direct Bilirubin 0.00 Eosinophils # 0.0 Eosinophils % 0.1 Globulin 2.30 Glucose Level 86 # Hematocrit 26.9 #L Hemoglobin 9.1 #L Indirect Bilirubin 0.2 Lactate Dehydrogenase 1185 H Lymphocytes # 0.3 L Lymphocytes % 4.1 L Mean Corpuscular Hemoglobin 28.7 L Mean Corpuscular Hemoglobin Concent 33.8 Mean Corpuscular Volume 85.0 Mean Platelet Volume 6.6 L Monocytes # 0.1 L Monocytes % 0.9 Neutrophils # 6.9 Neutrophils % 94.9 H Nucleated Red Blood Cells # 0.0 Nucleated Red Blood Cells % 0.0 Platelet Count 168 Potassium Level 3.1 L Red Blood Count 3.17 #L Red Cell Distribution Width 18.0 H Sodium Level 145 H Total Bilirubin 0.2 Total Protein 4.9 L Uric Acid 3.1 White Blood Count 7.3 Medications Medications Current Medications Sodium Chloride (NS) 1,000 ml @ 100 mls/hr Q10H IV Last administered on at 03:46; Admin Dose 100 MLS/HR; Start 06/02/16 at 14:30 Acyclovir 400 mg 400 mg BID PO Last administered on 06/05/16at 08:50; Admin Dose 400 MG; Start 06/02/16 at 14:30 Methotrexate 175 mg/Sodium Chloride 250 ml @ 250 mls/hr ONCE IV ; Start at 03:00; Stop 06/16/16 at 03:59 Methotrexate 1590 mg/Sodium Chloride 1,000 ml @ 43.478 mls/ hr Q23H IV ; Start 06/16/16 at 04:00; Stop 06/17/16 at 02:59 Ondansetron HCl/ Dexamethasone/ Diphenhydramine HCl/Dextrose (Zofran Inj/ Decadron/Benadryl/ D5W) 59.5 ml @ 120 mls/hr ONCE IV ; Start 06/16/16 at 02:00 ; Stop 06/16/16 at 02:30 Diphenhydramine HCl (Benadryl) 25 mg Q4H PRN IV ALLERGIC REACTION; Start 06/02 at 18:30 Dexamethasone (Decadron) 10 mg Q4H PRN IV ALLERGIC REACTION; Start 06/02/16 at 18:30 Filgrastim 300 mcg 300 mcg DAILY@17 SC Last administered on 06/04/16at 18:43; Admin Dose 300 MCG; Start 06/04/16 at 17:00; Stop 06/08/16 at 17:01 Leucovorin Calcium/Dextrose (Leucovorin Calcium Inj/D5W) 50 ml @ 50 mls/hr Q6H IV ; Start 06/17/16 at 15:00 Fluconazole 100 mg 100 mg DAILY PO Last administered on 06/05/16at 08:51; Admin Dose 100 MG; Start 06/03/16 at 09:00 Ondansetron HCl 8 mg/Sodium Chloride 54 ml @ 216 mls/hr Q6H PRN IV NAUSEA AND/ OR VOMITING; Start 06/02/16 at 18:30 Sodium Bicarbonate/ Dextrose (Na Bicarb/D5W) 1,000 ml @ 125 mls/hr Q8H IV ; Start 06/17/16 at 03:00 Ondansetron HCl (Zofran Inj) 4 mg Q6H PRN IV NAUSEA AND/OR VOMITING; Start at 17:00 Acetaminophen (Tylenol Tab) 650 mg Q6H PRN PO PAIN LEVEL 1-3 OR FEVER; Start 06/03/16 at 17:00 Acetaminophen (Tylenol Supp) 650 mg Q6H PRN [place] PAIN LEVEL 1-3 OR FEVER; Start 06/03/16 at 17:00 Docusate Sodium (Colace) 100 mg Q12H PRN PO CONSTIPATION; Start 06/03/16 at 17 :00 Magnesium Hydroxide (Milk Of Mag) 30 ml DAILY PRN PO CONSTIPATION; Start 06/03 at 17:00 Bisacodyl (Dulcolax) 5 mg DAILY PRN PO CONSTIPATION; Start 06/03/16 at 17:00 Bisacodyl (Dulcolax Supp) 10 mg DAILY PRN [place] CONSTIPATION; Start 06/03/16 at 17:00 Sodium Biphosphate/ Sodium Phosphate (Fleet Enema) 133 ml DAILY PRN [place] CONSTIPATION; Start 06/03/16 at 17:00 Pantoprazole (Protonix Iv) 40 mg DAILY@06 IV Last administered on 06/05/16at 06 :31; Admin Dose 40 MG; Start 06/04/16 at 06:00 Enoxaparin Sodium (Lovenox) 30 mg DAILY SC Last administered on 06/05/16at 09: 04; Admin Dose 30 MG; Start 06/04/16 at 09:00 Allopurinol (Zyloprim) 300 mg DAILY PO Last administered on 06/05/16at 08:50; Admin Dose 300 MG; Start 06/04/16 at 09:00 Eye Lubricant (Artificial Tears Oph) 2 drop QID BOTH EYES Last administered on 06/05/16at 12:44; Admin Dose 2 DROP; Start 06/03/16 at 21:00 Eye Lubricant (Akwa Oint) 1 applic DAILY BOTH EYES Last administered on at 08:50; Admin Dose 1 APPLIC; Start 06/04/16 at 09:00 Gabapentin (Neurontin) 200 mg TID PO Last administered on 06/05/16at 12:44; Admin Dose 200 MG; Start 06/03/16 at 21:00 Levothyroxine Sodium (Synthroid) 100 mcg DAILY@06 PO Last administered on 12/15 /16at 06:31; Admin Dose 100 MCG; Start 06/04/16 at 06:00 Nystatin 5 ml 5 ml QID PO Last administered on 06/05/16at 12:44; Admin Dose 5 ML; Start 06/03/16 at 21:00 Vincristine Sulfate/Sodium Chloride (Oncovin/NS) 51 ml @ 102 mls/hr 05 IV ; Start 06/17/16 at 05:00; Stop 06/17/16 at 05:29 Mupirocin 1 applic 1 applic BID TOP Last administered on 06/05/16at 08:51; Admin Dose 1 APPLIC; Start 06/04/16 at 21:00 Potassium Chloride (KCl 40 MEQ/250 ML NS) 250 ml @ 62.5 mls/hr ONCE IVPB Last administered on 06/05/16at 09:32; Admin Dose 62.5 MLS/HR; Start 06/05/16 at 10: 00; Stop 06/05/16 at 13:59 CHANDRIKA MERLOS M.D. Jun 05, 2016 13:01
[2016-06-05] MEDS: FILGRASTIM 300 MCG INJ SC SCH (17:06)
[2016-06-05 20:05] VITALS: BP 143/69; PULSE 104; RESP 20
[2016-06-06] MEDS: ALBUTEROL/IPRATROPIUM (NEB) 3 ML AMP HHN SCH ×5 (01:29→20:13)
[2016-06-06] MEDS: PANTOPRAZOLE (EC) 40 MG TAB PO SCH (05:53)
[2016-06-06] MEDS: LEVOTHYROXINE 100 MCG TAB PO SCH (05:53)
[2016-06-06 05:55] LABS: BASOPHILS % 0.2 % (0.0-2.0); EOSINOPHILS % 0.3 % (0.0-7.0); HEMOGLOBIN 9.3 g/dl (12.0-16.0); LYMPHOCYTES # 0.3 10^3/ul (0.8-2.9); LYMPHOCYTES % 4.1 % (15.0-51.0); MEAN CORPUSCULAR HEMOGLOBIN 28.9 pg (29.0-33.0); MEAN CORPUSCULAR HGB CONC 34.3 g/dl (32.0-37.0); MEAN CORPUSCULAR VOLUME 84.4 fl (82.0-101.0); MEAN PLATELET VOLUME 6.7 fl (7.4-10.4); MONOCYTE # 0.1 10^3/ul (0.3-0.9); MONOCYTES % 0.7 % (0.0-11.0); NEUTROPHIL # 7.4 10^3/ul (1.6-7.5); NEUTROPHILS % 94.7 % (39.0-77.0); PLATELET COUNT 164 10^3/UL (140-440); RED CELL DISTRIBUTION WIDTH 17.7 % (11.5-14.5); UNCORRECTED WBC 7.8 10^3/ul (4.8-10.8); WHITE BLOOD COUNT 7.8 10^3/ul (4.8-10.8)
[2016-06-06 06:05] LABS: ALBUMIN 2.6 g/dl (3.3-4.9); POTASSIUM 3.5 mmol/L (3.5-5.1)
[2016-06-06 06:07] LABS: CREATININE 0.31 mg/dl (0.44-1.00)
[2016-06-06 06:08] LABS: ALBUMIN/GLOBULIN RATIO 1.23; BILIRUBIN,INDIRECT 0.5 mg/dl (0-1.1); BILIRUBIN,TOTAL 0.5 mg/dl (0.2-1.3); TOTAL PROTEIN 4.7 g/dl (6.1-8.1); URIC ACID 2.4 mg/dl (3.1-7.9)
[2016-06-06 06:09] LABS: CALCIUM 8.5 mg/dl (8.4-10.2)
[2016-06-06 06:10] LABS: CONDITION 1; LH ANALYZER COMMENTS 1; SUSPECT 1
[2016-06-06 08:21] VITALS: BP 123/74; PULSE 91; RESP 20
[2016-06-06] MEDS: SOD CHLORIDE 0.9% 1,000 ML IV SCH ×2 (08:30→18:30)
[2016-06-06] MEDS: ALLOPURINOL 300 MG TAB PO SCH (08:58)
[2016-06-06] MEDS: NYSTATIN SUSP 5 ML CUP PO SCH ×4 (08:58→20:25)
[2016-06-06] MEDS: GABAPENTIN 100 MG CAP PO SCH ×3 (08:58→20:25)
[2016-06-06] MEDS: OCULAR LUBRICANT 3.5 GM OPH OINT BOTH EYES SCH (08:58)
[2016-06-06] MEDS: ACYCLOVIR 400 MG TAB PO SCH ×2 (08:58→20:25)
[2016-06-06] MEDS: ARTIFICIAL TEARS 15 ML OPH BOTH EYES SCH ×4 (08:58→20:24)
[2016-06-06] MEDS: FLUCONAZOLE 100 MG TAB PO SCH (08:58)
[2016-06-06] MEDS: ENOXAPARIN 30 MG/0.3 ML SYG SC SCH (09:00)
[2016-06-06] MEDS: MUPIROCIN 2% 22 GM OINT TOP SCH ×2 (11:40→20:25)
--- NOTE | 2016-06-06 12:51 | CONS ---
Date/Time of Note Date/Time of Note DATE: 06/06/16 TIME: 12:50 Assessment/Plan Assessment/Plan Chief Complaint/Hosp Course 56 yo female with massive neck mass causing tracheal compression and airway compromise s/p tracheostomy placement. 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 Pt was given cycle 1A and 1B of R HyperCVAD but had only a partial response to therapy and severe side effects. We have thus changed her chemotherapy regimen. She is now being admitted for cycle 1 of R-CODOX-M. Problems: Additional Assessment/Plan -continue with cycle 1 R CODOX -M. today is day 4 -Rituximab (Rituxan) as follows: * Cycle 1: 375 mg/m2 (660mg) IV on Day 1 -Cyclophosphamide (Cytoxan) 800 mg/m2 ( 1415mg) IV once per day on days 1 & 2 -Vincristine (Oncovin) 1.0 mg (dose reduced for neuropathy) days 1 & 15 -Doxorubicin (Adriamycin) 50 mg/m2 (88mg) IV once on day 1 -Methotrexate (MTX) 100mg/m2 (175mg) IV over 1 hour then 900mg/m2 (1590mg) over 23 hours on day 15. will start Na HCo3 prior to MTX infusion and only start MTX once Urine Ph > 7.0. Leucovorin 25mg IV q 4 hours will start 36 hours after MTX starts until MTX level is < 0.05. 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 all steroids should be discontinued for now unless they are part of the chemotherapy regimen -continue to work with physical therapy. 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 -uric acid level ok -will continue to monitor LDH Approximately 40 min were spent at patient's bedside and in coordination of her care Consultation Date/Type/Reason Admit Date/Time Jun 02, 2016 at 15:10 Initial Consult Date 06/02/16 Type of Consultation: Hematology Reason for Consultation burkitt's lymphoma Referring Provider: TELLY SOLANO MD 24 HR Interval Summary Free Text/Dictation working with PT and ambulating well Exam/Review of Systems Vital Signs Vitals Vital Signs Date Time Temp Pulse Resp B/P Pulse Ox O2 Delivery O2 Flow Rate FiO2 06/06/16 08:21 104 20 99 5.0 06/06/16 08:21 98.6 123/74 Trach Collar 06/06/16 01:29 28 Intake and Output 06/05/16 06/05/16 06/06/16 15:00 23:00 07:00 Intake Total 1100 ml 820 ml 120 ml Output Total 1800 ml Balance 1100 ml 820 ml -1680 ml Exam Constitutional: alert, oriented Psych: no complaints Head: atraumatic, normocephalic Eyes: nl conjunctiva ENMT: nl external ears & nose Neck: other (trach in place) Respiratory: clear to auscultation, normal air movement Cardiovascular: nl pulses, regular rate and rhythm Gastrointestinal: soft Musculoskeletal: nl extremities to inspection, nl gait and stance Extremities: normal pulses Results Result Diagram: 06/06/16 04306/06/16 043 Results 24 hrs Laboratory Tests Test 06/06/16 04:30 Alanine Aminotransferase (ALT/SGPT) 63 Albumin 2.6 L Albumin/Globulin Ratio 1.23 Alkaline Phosphatase 93 Anion Gap 11 Aspartate Amino Transf (AST/SGOT) 30 Basophils # 0.0 Basophils % 0.2 Blood Morphology Comment Blood Urea Nitrogen 6 L Calcium Level 8.5 Carbon Dioxide Level 30 Chloride Level 103 Creatinine 0.31 L Direct Bilirubin 0.00 Eosinophils # 0.0 Eosinophils % 0.3 Globulin 2.10 Glucose Level 89 Hematocrit 27.0 L Hemoglobin 9.3 L Indirect Bilirubin 0.5 Lactate Dehydrogenase 1180 H Lymphocytes # 0.3 L Lymphocytes % 4.1 L Mean Corpuscular Hemoglobin 28.9 L Mean Corpuscular Hemoglobin Concent 34.3 Mean Corpuscular Volume 84.4 Mean Platelet Volume 6.7 L Monocytes # 0.1 L Monocytes % 0.7 Neutrophils # 7.4 Neutrophils % 94.7 H Nucleated Red Blood Cells # 0.0 Nucleated Red Blood Cells % 0.0 Platelet Count 164 Potassium Level 3.5 Red Blood Count 3.20 L Red Cell Distribution Width 17.7 H Sodium Level 140 Total Bilirubin 0.5 Total Protein 4.7 L Uric Acid 2.4 L White Blood Count 7.8 Medications Medications Current Medications Sodium Chloride (NS) 1,000 ml @ 100 mls/hr Q10H IV Last administered on at 03:46; Admin Dose 100 MLS/HR; Start 06/02/16 at 14:30 Acyclovir 400 mg 400 mg BID PO Last administered on 06/06/16at 08:58; Admin Dose 400 MG; Start 06/02/16 at 14:30 Methotrexate 175 mg/Sodium Chloride 250 ml @ 250 mls/hr ONCE IV ; Start at 03:00; Stop 06/16/16 at 03:59 Methotrexate 1590 mg/Sodium Chloride 1,000 ml @ 43.478 mls/ hr Q23H IV ; Start 06/16/16 at 04:00; Stop 06/17/16 at 02:59 Ondansetron HCl/ Dexamethasone/ Diphenhydramine HCl/Dextrose (Zofran Inj/ Decadron/Benadryl/ D5W) 59.5 ml @ 120 mls/hr ONCE IV ; Start 06/16/16 at 02:00 ; Stop 06/16/16 at 02:30 Diphenhydramine HCl (Benadryl) 25 mg Q4H PRN IV ALLERGIC REACTION; Start 06/02 at 18:30 Dexamethasone (Decadron) 10 mg Q4H PRN IV ALLERGIC REACTION; Start 06/02/16 at 18:30 Filgrastim 300 mcg 300 mcg DAILY@17 SC Last administered on 06/05/16at 17:06; Admin Dose 300 MCG; Start 06/04/16 at 17:00; Stop 06/08/16 at 17:01 Leucovorin Calcium/Dextrose (Leucovorin Calcium Inj/D5W) 50 ml @ 50 mls/hr Q6H IV ; Start 06/17/16 at 15:00 Fluconazole 100 mg 100 mg DAILY PO Last administered on 06/06/16at 08:58; Admin Dose 100 MG; Start 06/03/16 at 09:00 Ondansetron HCl 8 mg/Sodium Chloride 54 ml @ 216 mls/hr Q6H PRN IV NAUSEA AND/ OR VOMITING; Start 06/02/16 at 18:30 Sodium Bicarbonate/ Dextrose (Na Bicarb/D5W) 1,000 ml @ 125 mls/hr Q8H IV ; Start 06/17/16 at 03:00 Ondansetron HCl (Zofran Inj) 4 mg Q6H PRN IV NAUSEA AND/OR VOMITING; Start at 17:00 Acetaminophen (Tylenol Tab) 650 mg Q6H PRN PO PAIN LEVEL 1-3 OR FEVER; Start 06/03/16 at 17:00 Acetaminophen (Tylenol Supp) 650 mg Q6H PRN HI PAIN LEVEL 1-3 OR FEVER; Start 06/03/16 at 17:00 Docusate Sodium (Colace) 100 mg Q12H PRN PO CONSTIPATION; Start 06/03/16 at 17 :00 Magnesium Hydroxide (Milk Of Mag) 30 ml DAILY PRN PO CONSTIPATION; Start 06/03 at 17:00 Bisacodyl (Dulcolax) 5 mg DAILY PRN PO CONSTIPATION; Start 06/03/16 at 17:00 Bisacodyl (Dulcolax Supp) 10 mg DAILY PRN [place] CONSTIPATION; Start 06/03/16 at 17:00 Sodium Biphosphate/ Sodium Phosphate (Fleet Enema) 133 ml DAILY PRN [place] CONSTIPATION; Start 06/03/16 at 17:00 Enoxaparin Sodium (Lovenox) 30 mg DAILY SC Last administered on 06/06/16at 09: 00; Admin Dose 30 MG; Start 06/04/16 at 09:00 Allopurinol (Zyloprim) 300 mg DAILY PO Last administered on 06/06/16at 08:58; Admin Dose 300 MG; Start 06/04/16 at 09:00 Eye Lubricant (Artificial Tears Oph) 2 drop QID BOTH EYES Last administered on 06/06/16at 08:58; Admin Dose 2 DROP; Start 06/03/16 at 21:00 Eye Lubricant (Akwa Oint) 1 applic DAILY BOTH EYES Last administered on at 08:58; Admin Dose 1 APPLIC; Start 06/04/16 at 09:00 Gabapentin (Neurontin) 200 mg TID PO Last administered on 06/06/16at 08:58; Admin Dose 200 MG; Start 06/03/16 at 21:00 Levothyroxine Sodium (Synthroid) 100 mcg DAILY@06 PO Last administered on 06/06at 05:53; Admin Dose 100 MCG; Start 06/04/16 at 06:00 Nystatin 5 ml 5 ml QID PO Last administered on 06/06/16at 08:58; Admin Dose 5 ML; Start 06/03/16 at 21:00 Vincristine Sulfate/Sodium Chloride (Oncovin/NS) 51 ml @ 102 mls/hr 05 IV ; Start 06/17/16 at 05:00; Stop 06/17/16 at 05:29 Mupirocin (Bactroban) 1 applic BID TOP Last administered on 06/06/16at 11:40; Admin Dose 1 APPLIC; Start 06/04/16 at 21:00 Pantoprazole (Protonix Tab) 40 mg DAILY@06 PO Last administered on 06/06/16at 05:53; Admin Dose 40 MG; Start 06/06/16 at 06:00 CHANDRIKA MERLOS M.D. Jun 06, 2016 12:51
--- NOTE | 2016-06-06 17:31 | PN ---
Date/Time of Note Date/Time of Note DATE: 06/06/16 TIME: 17:30 Assessment/Plan VTE Prophylaxis VTE Prophylaxis Intervention: other Lines/Catheters IV Catheter Type (from Nrs): PICC Line Central line still needed: Yes Urinary Cath still in place: No Assessment/Plan Chief Complaint/Hosp Course IMPRESSION: The patient has Burkitt's lymphoma status post tracheostomy, status post thyroid mass, status post pancytopenia, abnormal liver function test. The patient has anemia. plan chemo PER DR MERLOS Problems: Subjective 24 Hr Interval Summary Cardiovascular: no complaints Gastrointestinal: no complaints Exam/Review of Systems Vital Signs Vitals Vital Signs Date Time Temp Pulse Resp B/P Pulse Ox O2 Delivery O2 Flow Rate FiO2 06/06/16 15:05 101 22 99 Aerosol 5.0 T Tube 06/06/16 15:05 28 06/06/16 08:21 98.6 123/74 Intake and Output 06/05/16 06/05/16 06/06/16 15:00 23:00 07:00 Intake Total 1100 ml 820 ml 120 ml Output Total 1800 ml Balance 1100 ml 820 ml -1680 ml Exam Respiratory: clear to auscultation Cardiovascular: regular rate and rhythm Gastrointestinal: soft Musculoskeletal: nl extremities to inspection Extremities: normal pulses Results Result Diagram: 06/06/16 0430 06/06/16 0430 Results 24 hrs Laboratory Tests Test 06/06/16 04:30 Alanine Aminotransferase (ALT/SGPT) 63 Albumin 2.6 L Albumin/Globulin Ratio 1.23 Alkaline Phosphatase 93 Anion Gap 11 Aspartate Amino Transf (AST/SGOT) 30 Basophils # 0.0 Basophils % 0.2 Blood Morphology Comment Blood Urea Nitrogen 6 L Calcium Level 8.5 Carbon Dioxide Level 30 Chloride Level 103 Creatinine 0.31 L Direct Bilirubin 0.00 Eosinophils # 0.0 Eosinophils % 0.3 Globulin 2.10 Glucose Level 89 Hematocrit 27.0 L Hemoglobin 9.3 L Indirect Bilirubin 0.5 Lactate Dehydrogenase 1180 H Lymphocytes # 0.3 L Lymphocytes % 4.1 L Mean Corpuscular Hemoglobin 28.9 L Mean Corpuscular Hemoglobin Concent 34.3 Mean Corpuscular Volume 84.4 Mean Platelet Volume 6.7 L Monocytes # 0.1 L Monocytes % 0.7 Neutrophils # 7.4 Neutrophils % 94.7 H Nucleated Red Blood Cells # 0.0 Nucleated Red Blood Cells % 0.0 Platelet Count 164 Potassium Level 3.5 Red Blood Count 3.20 L Red Cell Distribution Width 17.7 H Sodium Level 140 Total Bilirubin 0.5 Total Protein 4.7 L Uric Acid 2.4 L White Blood Count 7.8 Medications Medications Current Medications Sodium Chloride (NS) 1,000 ml @ 100 mls/hr Q10H IV Last administered on at 03:46; Admin Dose 100 MLS/HR; Start 06/02/16 at 14:30 Acyclovir 400 mg 400 mg BID PO Last administered on 06/06/16at 08:58; Admin Dose 400 MG; Start 06/02/16 at 14:30 Methotrexate 175 mg/Sodium Chloride 250 ml @ 250 mls/hr ONCE IV ; Start at 03:00; Stop 06/16/16 at 03:59 Methotrexate 1590 mg/Sodium Chloride 1,000 ml @ 43.478 mls/ hr Q23H IV ; Start 06/16/16 at 04:00; Stop 06/17/16 at 02:59 Ondansetron HCl/ Dexamethasone/ Diphenhydramine HCl/Dextrose (Zofran Inj/ Decadron/Benadryl/ D5W) 59.5 ml @ 120 mls/hr ONCE IV ; Start 06/16/16 at 02:00 ; Stop 06/16/16 at 02:30 Diphenhydramine HCl (Benadryl) 25 mg Q4H PRN IV ALLERGIC REACTION; Start 06/02 at 18:30 Dexamethasone (Decadron) 10 mg Q4H PRN IV ALLERGIC REACTION; Start 06/02/16 at 18:30 Filgrastim 300 mcg 300 mcg DAILY@17 SC Last administered on 06/05/16at 17:06; Admin Dose 300 MCG; Start 06/04/16 at 17:00; Stop 06/08/16 at 17:01 Leucovorin Calcium/Dextrose (Leucovorin Calcium Inj/D5W) 50 ml @ 50 mls/hr Q6H IV ; Start 06/17/16 at 15:00 Fluconazole 100 mg 100 mg DAILY PO Last administered on 06/06/16at 08:58; Admin Dose 100 MG; Start 06/03/16 at 09:00 Ondansetron HCl 8 mg/Sodium Chloride 54 ml @ 216 mls/hr Q6H PRN IV NAUSEA AND/ OR VOMITING; Start 06/02/16 at 18:30 Sodium Bicarbonate/ Dextrose (Na Bicarb/D5W) 1,000 ml @ 125 mls/hr Q8H IV ; Start 06/17/16 at 03:00 Ondansetron HCl (Zofran Inj) 4 mg Q6H PRN IV NAUSEA AND/OR VOMITING; Start at 17:00 Acetaminophen (Tylenol Tab) 650 mg Q6H PRN PO PAIN LEVEL 1-3 OR FEVER; Start 06/03/16 at 17:00 Acetaminophen (Tylenol Supp) 650 mg Q6H PRN PA PAIN LEVEL 1-3 OR FEVER; Start 06/03/16 at 17:00 Docusate Sodium (Colace) 100 mg Q12H PRN PO CONSTIPATION; Start 06/03/16 at 17 :00 Magnesium Hydroxide (Milk Of Mag) 30 ml DAILY PRN PO CONSTIPATION; Start 06/03 at 17:00 Bisacodyl (Dulcolax) 5 mg DAILY PRN PO CONSTIPATION; Start 06/03/16 at 17:00 Bisacodyl (Dulcolax Supp) 10 mg DAILY PRN [place] CONSTIPATION; Start 06/03/16 at 17:00 Sodium Biphosphate/ Sodium Phosphate (Fleet Enema) 133 ml DAILY PRN PA CONSTIPATION; Start 06/03/16 at 17:00 Enoxaparin Sodium (Lovenox) 30 mg DAILY SC Last administered on 06/06/16at 09: 00; Admin Dose 30 MG; Start 06/04/16 at 09:00 Allopurinol (Zyloprim) 300 mg DAILY PO Last administered on 06/06/16at 08:58; Admin Dose 300 MG; Start 06/04/16 at 09:00 Eye Lubricant (Artificial Tears Oph) 2 drop QID BOTH EYES Last administered on 06/06/16at 13:57; Admin Dose 2 DROP; Start 06/03/16 at 21:00 Eye Lubricant (Akwa Oint) 1 applic DAILY BOTH EYES Last administered on at 08:58; Admin Dose 1 APPLIC; Start 06/04/16 at 09:00 Gabapentin (Neurontin) 200 mg TID PO Last administered on 06/06/16at 13:57; Admin Dose 200 MG; Start 06/03/16 at 21:00 Levothyroxine Sodium (Synthroid) 100 mcg DAILY@06 PO Last administered on 06/06at 05:53; Admin Dose 100 MCG; Start 06/04/16 at 06:00 Nystatin 5 ml 5 ml QID PO Last administered on 06/06/16at 13:57; Admin Dose 5 ML; Start 06/03/16 at 21:00 Vincristine Sulfate/Sodium Chloride (Oncovin/NS) 51 ml @ 102 mls/hr 05 IV ; Start 06/17/16 at 05:00; Stop 06/17/16 at 05:29 Mupirocin (Bactroban) 1 applic BID TOP Last administered on 06/06/16at 11:40; Admin Dose 1 APPLIC; Start 06/04/16 at 21:00 Pantoprazole (Protonix Tab) 40 mg DAILY@06 PO Last administered on 06/06/16at 05:53; Admin Dose 40 MG; Start 06/06/16 at 06:00 GUERLINE SULLIVAN MD Jun 06, 2016 17:31
[2016-06-06] MEDS: FILGRASTIM 300 MCG INJ SC SCH (17:34)
[2016-06-06 20:03] VITALS: BP 135/75; PULSE 101; RESP 19
[2016-06-07] MEDS: ALBUTEROL/IPRATROPIUM (NEB) 3 ML AMP HHN SCH ×6 (01:00→20:29)
[2016-06-07] MEDS: SOD CHLORIDE 0.9% 1,000 ML IV SCH ×2 (04:30→16:04)
[2016-06-07 05:23] LABS: BASOPHILS % 0.2 % (0.0-2.0); EOSINOPHILS % 0.6 % (0.0-7.0); HEMATOCRIT 30.1 % (37.0-47.0); HEMOGLOBIN 10.4 g/dl (12.0-16.0); LYMPHOCYTES # 0.2 10^3/ul (0.8-2.9); LYMPHOCYTES % 4.1 % (15.0-51.0); MEAN CORPUSCULAR HEMOGLOBIN 29.4 pg (29.0-33.0); MEAN CORPUSCULAR HGB CONC 34.7 g/dl (32.0-37.0); MEAN CORPUSCULAR VOLUME 84.6 fl (82.0-101.0); MEAN PLATELET VOLUME 6.7 fl (7.4-10.4); NEUTROPHIL # 3.6 10^3/ul (1.6-7.5); NEUTROPHILS % 94.1 % (39.0-77.0); PLATELET COUNT 164 10^3/UL (140-440); RED BLOOD COUNT 3.56 10^6/ul (4.20-5.40); RED CELL DISTRIBUTION WIDTH 17.6 % (11.5-14.5); UNCORRECTED WBC 3.9 10^3/ul (4.8-10.8); WHITE BLOOD COUNT 3.9 10^3/ul (4.8-10.8)
[2016-06-07] MEDS: PANTOPRAZOLE (EC) 40 MG TAB PO SCH (05:29)
[2016-06-07] MEDS: LEVOTHYROXINE 100 MCG TAB PO SCH (05:29)
[2016-06-07 05:30] LABS: ALBUMIN 3.2 g/dl (3.3-4.9); POTASSIUM 3.7 mmol/L (3.5-5.1)
[2016-06-07 05:32] LABS: BILIRUBIN,INDIRECT 0.5 mg/dl (0-1.1); BILIRUBIN,TOTAL 0.5 mg/dl (0.2-1.3); CREATININE 0.32 mg/dl (0.44-1.00)
[2016-06-07 05:33] LABS: ALBUMIN/GLOBULIN RATIO 1.14; URIC ACID 1.9 mg/dl (3.1-7.9)
[2016-06-07 05:34] LABS: CALCIUM 8.7 mg/dl (8.4-10.2)
[2016-06-07 06:13] LABS: CONDITION 1; LH ANALYZER COMMENTS 1; SUSPECT 1
[2016-06-07 08:20] VITALS: BP 106/65; PULSE 97; RESP 18
[2016-06-07] MEDS: ARTIFICIAL TEARS 15 ML OPH BOTH EYES SCH ×4 (09:25→20:36)
[2016-06-07] MEDS: OCULAR LUBRICANT 3.5 GM OPH OINT BOTH EYES SCH (09:25)
[2016-06-07] MEDS: NYSTATIN SUSP 5 ML CUP PO SCH ×4 (09:25→20:37)
[2016-06-07] MEDS: MUPIROCIN 2% 22 GM OINT TOP SCH ×2 (09:26→20:37)
[2016-06-07] MEDS: GABAPENTIN 100 MG CAP PO SCH ×3 (09:26→20:37)
[2016-06-07] MEDS: ALLOPURINOL 300 MG TAB PO SCH (09:26)
[2016-06-07] MEDS: ACYCLOVIR 400 MG TAB PO SCH ×2 (09:26→20:36)
[2016-06-07] MEDS: FLUCONAZOLE 100 MG TAB PO SCH (09:26)
[2016-06-07] MEDS: ENOXAPARIN 30 MG/0.3 ML SYG SC SCH (09:47)
[2016-06-07 11:14] LABS: ANISOCYTOSIS 1+; POIKILOCYTOSIS 1+
[2016-06-07 11:15] LABS: OVALOCYTES FEW; TEAR DROP CELLS OCCASIONAL
--- NOTE | 2016-06-07 13:43 | PN ---
Date/Time of Note Date/Time of Note DATE: 06/07/16 TIME: 13:42 Assessment/Plan VTE Prophylaxis VTE Prophylaxis Intervention: other Lines/Catheters IV Catheter Type (from Nrs): PICC Line Central line still needed: Yes Urinary Cath still in place: No Assessment/Plan Chief Complaint/Hosp Course IMPRESSION: The patient has Burkitt's lymphoma status post tracheostomy, status post thyroid mass, status post pancytopenia, abnormal liver function test. The patient has anemia. plan chemo PER DR MERLOS ck cbc Problems: Subjective 24 Hr Interval Summary Cardiovascular: no complaints Gastrointestinal: no complaints Genitourinary: no complaints Musculoskeletal: no complaints Exam/Review of Systems Vital Signs Vitals Vital Signs Date Time Temp Pulse Resp B/P Pulse Ox O2 Delivery O2 Flow Rate FiO2 06/07/16 13:06 102 22 97 Aerosol 28 06/07/16 09:46 5.0 06/07/16 08:20 98.6 106/65 Intake and Output 06/06/16 06/06/16 06/07/16 15:00 23:00 07:00 Intake Total 500 ml 700 ml Output Total 900 ml Balance 500 ml -200 ml Exam Respiratory: clear to auscultation Cardiovascular: regular rate and rhythm Gastrointestinal: bowel sounds (+), soft Results Result Diagram: 06/07/16 0430 06/07/16 0430 Results 24 hrs Laboratory Tests Test 06/07/16 04:30 Alanine Aminotransferase (ALT/SGPT) 60 Albumin 3.2 L Albumin/Globulin Ratio 1.14 Alkaline Phosphatase 114 Anion Gap 12 Anisocytosis 1+ Aspartate Amino Transf (AST/SGOT) 24 Basophils # 0.0 Basophils % 0.2 Blood Morphology Comment Blood Urea Nitrogen 7 Calcium Level 8.7 Carbon Dioxide Level 30 Chloride Level 101 Creatinine 0.32 L Direct Bilirubin 0.00 Eosinophils # 0.0 Eosinophils % 0.6 Globulin 2.80 Glucose Level 102 Hematocrit 30.1 L Hemoglobin 10.4 L Indirect Bilirubin 0.5 Lactate Dehydrogenase 1040 H Lymphocytes # 0.2 L Lymphocytes % 4.1 L Mean Corpuscular Hemoglobin 29.4 Mean Corpuscular Hemoglobin Concent 34.7 Mean Corpuscular Volume 84.6 Mean Platelet Volume 6.7 L Monocytes # 0.0 L Monocytes % 1.0 Neutrophils # 3.6 Neutrophils % 94.1 H Nucleated Red Blood Cells # 0.0 Nucleated Red Blood Cells % 0.0 Ovalocytes FEW Platelet Count 164 Potassium Level 3.7 Red Blood Count 3.56 L Red Cell Distribution Width 17.6 H Sodium Level 139 Tear Drop Cells OCCASIONAL Total Bilirubin 0.5 Total Protein 6.0 #L Uric Acid 1.9 L White Blood Count 3.9 #L Medications Medications Current Medications Sodium Chloride (NS) 1,000 ml @ 100 mls/hr Q10H IV Last administered on at 03:46; Admin Dose 100 MLS/HR; Start 06/02/16 at 14:30 Acyclovir 400 mg 400 mg BID PO Last administered on 06/07/16at 09:26; Admin Dose 400 MG; Start 06/02/16 at 14:30 Methotrexate 175 mg/Sodium Chloride 250 ml @ 250 mls/hr ONCE IV ; Start at 03:00; Stop 06/16/16 at 03:59 Methotrexate 1590 mg/Sodium Chloride 1,000 ml @ 43.478 mls/ hr Q23H IV ; Start 06/16/16 at 04:00; Stop 06/17/16 at 02:59 Ondansetron HCl/ Dexamethasone/ Diphenhydramine HCl/Dextrose (Zofran Inj/ Decadron/Benadryl/ D5W) 59.5 ml @ 120 mls/hr ONCE IV ; Start 06/16/16 at 02:00 ; Stop 06/16/16 at 02:30 Diphenhydramine HCl (Benadryl) 25 mg Q4H PRN IV ALLERGIC REACTION Last administered on 06/06/16at 20:26; Admin Dose 25 MG; Start 06/02/16 at 18:30 Dexamethasone (Decadron) 10 mg Q4H PRN IV ALLERGIC REACTION; Start 06/02/16 at 18:30 Filgrastim 300 mcg 300 mcg DAILY@17 SC Last administered on 06/06/16at 17:34; Admin Dose 300 MCG; Start 06/04/16 at 17:00; Stop 06/08/16 at 17:01 Leucovorin Calcium/Dextrose (Leucovorin Calcium Inj/D5W) 50 ml @ 50 mls/hr Q6H IV ; Start 06/17/16 at 15:00 Fluconazole 100 mg 100 mg DAILY PO Last administered on 06/07/16at 09:26; Admin Dose 100 MG; Start 06/03/16 at 09:00 Ondansetron HCl 8 mg/Sodium Chloride 54 ml @ 216 mls/hr Q6H PRN IV NAUSEA AND/ OR VOMITING; Start 06/02/16 at 18:30 Sodium Bicarbonate/ Dextrose (Na Bicarb/D5W) 1,000 ml @ 125 mls/hr Q8H IV ; Start 06/17/16 at 03:00 Ondansetron HCl (Zofran Inj) 4 mg Q6H PRN IV NAUSEA AND/OR VOMITING; Start at 17:00 Acetaminophen (Tylenol Tab) 650 mg Q6H PRN PO PAIN LEVEL 1-3 OR FEVER; Start 06/03/16 at 17:00 Acetaminophen (Tylenol Supp) 650 mg Q6H PRN [place] PAIN LEVEL 1-3 OR FEVER; Start 06/03/16 at 17:00 Docusate Sodium (Colace) 100 mg Q12H PRN PO CONSTIPATION; Start 06/03/16 at 17 :00 Magnesium Hydroxide (Milk Of Mag) 30 ml DAILY PRN PO CONSTIPATION; Start 06/03 at 17:00 Bisacodyl (Dulcolax) 5 mg DAILY PRN PO CONSTIPATION; Start 06/03/16 at 17:00 Bisacodyl (Dulcolax Supp) 10 mg DAILY PRN [place] CONSTIPATION; Start 06/03/16 at 17:00 Sodium Biphosphate/ Sodium Phosphate (Fleet Enema) 133 ml DAILY PRN [place] CONSTIPATION; Start 06/03/16 at 17:00 Enoxaparin Sodium (Lovenox) 30 mg DAILY SC Last administered on 06/07/16at 09: 47; Admin Dose 30 MG; Start 06/04/16 at 09:00 Allopurinol (Zyloprim) 300 mg DAILY PO Last administered on 06/07/16at 09:26; Admin Dose 300 MG; Start 06/04/16 at 09:00 Eye Lubricant (Artificial Tears Oph) 2 drop QID BOTH EYES Last administered on 06/07/16at 12:40; Admin Dose 2 DROP; Start 06/03/16 at 21:00 Eye Lubricant (Akwa Oint) 1 applic DAILY BOTH EYES Last administered on at 09:25; Admin Dose 1 APPLIC; Start 06/04/16 at 09:00 Gabapentin (Neurontin) 200 mg TID PO Last administered on 06/07/16at 12:40; Admin Dose 200 MG; Start 06/03/16 at 21:00 Levothyroxine Sodium (Synthroid) 100 mcg DAILY@06 PO Last administered on 06/07at 05:29; Admin Dose 100 MCG; Start 06/04/16 at 06:00 Nystatin 5 ml 5 ml QID PO Last administered on 06/07/16at 12:40; Admin Dose 5 ML; Start 06/03/16 at 21:00 Vincristine Sulfate/Sodium Chloride (Oncovin/NS) 51 ml @ 102 mls/hr 05 IV ; Start 06/17/16 at 05:00; Stop 06/17/16 at 05:29 Mupirocin (Bactroban) 1 applic BID TOP Last administered on 06/07/16at 09:26; Admin Dose 1 APPLIC; Start 06/04/16 at 21:00 Pantoprazole (Protonix Tab) 40 mg DAILY@06 PO Last administered on 06/07/16at 05:29; Admin Dose 40 MG; Start 06/06/16 at 06:00 GUERLINE SULLIVAN MD Jun 07, 2016 13:43
[2016-06-07 17:52] LABS: ADD UMIC YES; URINE BILIRUBIN (Dip) NEGATIVE (NEGATIVE); URINE BLOOD (Dip) TRACE (NEGATIVE); URINE COLOR LT. YELLOW (YELLOW); URINE GLUCOSE (Dip) NEGATIVE (NEGATIVE); URINE KETONES (Dip) NEGATIVE (NEGATIVE); URINE LEUKOCYTE ESTERASE (Dip) NEGATIVE (NEGATIVE); URINE NITRITE (Dip) NEGATIVE (NEGATIVE); URINE TOTAL PROTEIN (Dip) NEGATIVE (NEGATIVE); URINE UROBILINOGEN (Dip) 0.2 E.U./dL (0.1-1.0)
[2016-06-07] MEDS: FILGRASTIM 300 MCG INJ SC SCH (18:04)
[2016-06-07 18:29] LABS: SQUAMOUS EPITHELIAL CELL,UR RARE; URINE RBCS 0-2 /HPF (0)
--- NOTE | 2016-06-07 19:33 | CONS ---
Date/Time of Note Date/Time of Note DATE: 06/07/16 TIME: 19:32 Assessment/Plan Assessment/Plan Chief Complaint/Hosp Course 56 yo female with massive neck mass causing tracheal compression and airway compromise s/p tracheostomy placement. 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 Pt was given cycle 1A and 1B of R HyperCVAD but had only a partial response to therapy and severe side effects. We have thus changed her chemotherapy regimen. She is now being admitted for cycle 1 of R-CODOX-M. Problems: Additional Assessment/Plan -continue with cycle 1 R CODOX -M. today is day 5 -Rituximab (Rituxan) as follows: * Cycle 1: 375 mg/m2 (660mg) IV on Day 1 -Cyclophosphamide (Cytoxan) 800 mg/m2 ( 1415mg) IV once per day on days 1 & 2 -Vincristine (Oncovin) 1.0 mg (dose reduced for neuropathy) days 1 & 15 -Doxorubicin (Adriamycin) 50 mg/m2 (88mg) IV once on day 1 -Methotrexate (MTX) 100mg/m2 (175mg) IV over 1 hour then 900mg/m2 (1590mg) over 23 hours on day 15. will start Na HCo3 prior to MTX infusion and only start MTX once Urine Ph > 7.0. Leucovorin 25mg IV q 4 hours will start 36 hours after MTX starts until MTX level is < 0.05. 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 all steroids should be discontinued for now unless they are part of the chemotherapy regimen -continue to work with physical therapy. 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 -uric acid level ok, 1.9 today -will continue to monitor LDH Problems: Consultation Date/Type/Reason Admit Date/Time Jun 02, 2016 at 15:10 Initial Consult Date 06/02/16 Type of Consultation: Hematology Referring Provider: TELLY SOLANO MD 24 HR Interval Summary Free Text/Dictation Patient doing well, no complaints, no pain. Exam/Review of Systems Vital Signs Vitals Vital Signs Date Time Temp Pulse Resp B/P Pulse Ox O2 Delivery O2 Flow Rate FiO2 06/07/16 17:08 108 26 99 Aerosol 28 06/07/16 17:07 5.0 06/07/16 08:20 98.6 106/65 Intake and Output 06/06/16 06/06/16 06/07/16 15:00 23:00 07:00 Intake Total 500 ml 700 ml Output Total 900 ml Balance 500 ml -200 ml Exam Constitutional: alert, oriented Psych: no complaints Head: atraumatic, normocephalic Eyes: nl conjunctiva ENMT: nl external ears & nose Neck: other (trach in place) Respiratory: clear to auscultation, normal air movement Cardiovascular: nl pulses, regular rate and rhythm Gastrointestinal: soft Musculoskeletal: nl extremities to inspection, nl gait and stance Extremities: normal pulses Results Result Diagram: 06/07/16 0430 06/07/16 0430 Results 24 hrs Laboratory Tests Test 06/07/16 04:30 06/07/16 17:07 Alanine Aminotransferase (ALT/SGPT) 60 Albumin 3.2 L Albumin/Globulin Ratio 1.14 Alkaline Phosphatase 114 Anion Gap 12 Anisocytosis 1+ Aspartate Amino Transf (AST/SGOT) 24 Basophils # 0.0 Basophils % 0.2 Blood Morphology Comment Blood Urea Nitrogen 7 Calcium Level 8.7 Carbon Dioxide Level 30 Chloride Level 101 Creatinine 0.32 L Direct Bilirubin 0.00 Eosinophils # 0.0 Eosinophils % 0.6 Globulin 2.80 Glucose Level 102 Hematocrit 30.1 L Hemoglobin 10.4 L Indirect Bilirubin 0.5 Lactate Dehydrogenase 1040 H Lymphocytes # 0.2 L Lymphocytes % 4.1 L Mean Corpuscular Hemoglobin 29.4 Mean Corpuscular Hemoglobin Concent 34.7 Mean Corpuscular Volume 84.6 Mean Platelet Volume 6.7 L Monocytes # 0.0 L Monocytes % 1.0 Neutrophils # 3.6 Neutrophils % 94.1 H Nucleated Red Blood Cells # 0.0 Nucleated Red Blood Cells % 0.0 Ovalocytes FEW Platelet Count 164 Potassium Level 3.7 Red Blood Count 3.56 L Red Cell Distribution Width 17.6 H Sodium Level 139 Tear Drop Cells OCCASIONAL Total Bilirubin 0.5 Total Protein 6.0 #L Uric Acid 1.9 L White Blood Count 3.9 #L Urine Bilirubin NEGATIVE Urine Clarity CLEAR Urine Color LT. YELLOW Urine Glucose NEGATIVE Urine Hemoglobin TRACE Urine Ketones NEGATIVE Urine Leukocyte Esterase NEGATIVE Urine Microscopic RBC 0-2 Urine Microscopic WBC 0-2 Urine Nitrite NEGATIVE Urine Specific [place] 1.010 Urine Squamous Epithelial Cells RARE Urine Total Protein NEGATIVE Urine Urobilinogen 0.2 E.U./dL Urine pH 7.0 Medications Medications Current Medications Sodium Chloride (NS) 1,000 ml @ 100 mls/hr Q10H IV Last administered on at 16:04; Admin Dose 100 MLS/HR; Start 06/02/16 at 14:30 Acyclovir 400 mg 400 mg BID PO Last administered on 06/07/16at 09:26; Admin Dose 400 MG; Start 06/02/16 at 14:30 Methotrexate 175 mg/Sodium Chloride 250 ml @ 250 mls/hr ONCE IV ; Start at 03:00; Stop 06/16/16 at 03:59 Methotrexate 1590 mg/Sodium Chloride 1,000 ml @ 43.478 mls/ hr Q23H IV ; Start 06/16/16 at 04:00; Stop 06/17/16 at 02:59 Ondansetron HCl/ Dexamethasone/ Diphenhydramine HCl/Dextrose (Zofran Inj/ Decadron/Benadryl/ D5W) 59.5 ml @ 120 mls/hr ONCE IV ; Start 06/16/16 at 02:00 ; Stop 06/16/16 at 02:30 Diphenhydramine HCl (Benadryl) 25 mg Q4H PRN IV ALLERGIC REACTION Last administered on 06/06/16at 20:26; Admin Dose 25 MG; Start 06/02/16 at 18:30 Dexamethasone (Decadron) 10 mg Q4H PRN IV ALLERGIC REACTION; Start 06/02/16 at 18:30 Filgrastim 300 mcg 300 mcg DAILY@17 SC Last administered on 06/07/16at 18:04; Admin Dose 300 MCG; Start 06/04/16 at 17:00; Stop 06/08/16 at 17:01 Leucovorin Calcium/Dextrose (Leucovorin Calcium Inj/D5W) 50 ml @ 50 mls/hr Q6H IV ; Start 06/17/16 at 15:00 Fluconazole 100 mg 100 mg DAILY PO Last administered on 06/07/16at 09:26; Admin Dose 100 MG; Start 06/03/16 at 09:00 Ondansetron HCl 8 mg/Sodium Chloride 54 ml @ 216 mls/hr Q6H PRN IV NAUSEA AND/ OR VOMITING; Start 06/02/16 at 18:30 Sodium Bicarbonate/ Dextrose (Na Bicarb/D5W) 1,000 ml @ 125 mls/hr Q8H IV ; Start 06/17/16 at 03:00 Ondansetron HCl (Zofran Inj) 4 mg Q6H PRN IV NAUSEA AND/OR VOMITING; Start at 17:00 Acetaminophen (Tylenol Tab) 650 mg Q6H PRN PO PAIN LEVEL 1-3 OR FEVER; Start 06/03/16 at 17:00 Acetaminophen (Tylenol Supp) 650 mg Q6H PRN [place] PAIN LEVEL 1-3 OR FEVER; Start 06/03/16 at 17:00 Docusate Sodium (Colace) 100 mg Q12H PRN PO CONSTIPATION; Start 06/03/16 at 17 :00 Magnesium Hydroxide (Milk Of Mag) 30 ml DAILY PRN PO CONSTIPATION; Start 06/03 at 17:00 Bisacodyl (Dulcolax) 5 mg DAILY PRN PO CONSTIPATION; Start 06/03/16 at 17:00 Bisacodyl (Dulcolax Supp) 10 mg DAILY PRN [place] CONSTIPATION; Start 06/03/16 at 17:00 Sodium Biphosphate/ Sodium Phosphate (Fleet Enema) 133 ml DAILY PRN [place] CONSTIPATION; Start 06/03/16 at 17:00 Enoxaparin Sodium (Lovenox) 30 mg DAILY SC Last administered on 06/07/16at 09: 47; Admin Dose 30 MG; Start 06/04/16 at 09:00 Allopurinol (Zyloprim) 300 mg DAILY PO Last administered on 06/07/16at 09:26; Admin Dose 300 MG; Start 06/04/16 at 09:00 Eye Lubricant (Artificial Tears Oph) 2 drop QID BOTH EYES Last administered on 06/07/16at 18:03; Admin Dose 2 DROP; Start 06/03/16 at 21:00 Eye Lubricant (Akwa Oint) 1 applic DAILY BOTH EYES Last administered on at 09:25; Admin Dose 1 APPLIC; Start 06/04/16 at 09:00 Gabapentin (Neurontin) 200 mg TID PO Last administered on 06/07/16at 12:40; Admin Dose 200 MG; Start 06/03/16 at 21:00 Levothyroxine Sodium (Synthroid) 100 mcg DAILY@06 PO Last administered on 06/07at 05:29; Admin Dose 100 MCG; Start 06/04/16 at 06:00 Nystatin 5 ml 5 ml QID PO Last administered on 06/07/16at 18:03; Admin Dose 5 ML; Start 06/03/16 at 21:00 Vincristine Sulfate/Sodium Chloride (Oncovin/NS) 51 ml @ 102 mls/hr 05 IV ; Start 06/17/16 at 05:00; Stop 06/17/16 at 05:29 Mupirocin (Bactroban) 1 applic BID TOP Last administered on 06/07/16at 09:26; Admin Dose 1 APPLIC; Start 06/04/16 at 21:00 Pantoprazole (Protonix Tab) 40 mg DAILY@06 PO Last administered on 06/07/16at 05:29; Admin Dose 40 MG; Start 06/06/16 at 06:00 KELLY ELAINE MD Jun 07, 2016 19:33
[2016-06-07 20:00] VITALS: BP 134/78; PULSE 110; RESP 20
[2016-06-07] MEDS: ACETAMINOPHEN 325 MG TAB PO PRN (20:45)
[2016-06-07 23:05] VITALS: PULSE 93
[2016-06-08] MEDS: ALBUTEROL/IPRATROPIUM (NEB) 3 ML AMP HHN SCH ×6 (00:08→21:25)
[2016-06-08 00:10] VITALS: PULSE 98
[2016-06-08] MEDS: SOD CHLORIDE 0.9% 1,000 ML IV SCH ×6 (00:30→22:20)
[2016-06-08 05:46] LABS: ALBUMIN 3.1 g/dl (3.3-4.9)
[2016-06-08 05:48] LABS: BILIRUBIN,INDIRECT 0.5 mg/dl (0-1.1); BILIRUBIN,TOTAL 0.5 mg/dl (0.2-1.3); CREATININE 0.3 mg/dl (0.44-1.00)
[2016-06-08 05:49] LABS: ALBUMIN/GLOBULIN RATIO 1.19; CALCIUM 8.1 mg/dl (8.4-10.2); TOTAL PROTEIN 5.7 g/dl (6.1-8.1); URIC ACID 1.6 mg/dl (3.1-7.9)
[2016-06-08] MEDS: LEVOTHYROXINE 100 MCG TAB PO SCH (05:49)
[2016-06-08] MEDS: PANTOPRAZOLE (EC) 40 MG TAB PO SCH (05:50)
[2016-06-08 09:51] VITALS: BP 107/66; PULSE 100; RESP 17
[2016-06-08 09:53] LABS: HEMATOCRIT 27.3 % (37.0-47.0); HEMOGLOBIN 9.5 g/dl (12.0-16.0); MEAN CORPUSCULAR HEMOGLOBIN 29.1 pg (29.0-33.0); MEAN CORPUSCULAR HGB CONC 34.9 g/dl (32.0-37.0); MEAN CORPUSCULAR VOLUME 83.3 fl (82.0-101.0); MEAN PLATELET VOLUME 6.7 fl (7.4-10.4); PLATELET COUNT 136 10^3/UL (140-440); RED BLOOD COUNT 3.27 10^6/ul (4.20-5.40); RED CELL DISTRIBUTION WIDTH 17.2 % (11.5-14.5); UNCORRECTED WBC 0.7 10^3/ul (4.8-10.8)
[2016-06-08] MEDS: NYSTATIN SUSP 5 ML CUP PO SCH ×5 (09:57→22:21)
[2016-06-08 09:58] LABS: CONDITION 1; LH ANALYZER COMMENTS 1; SUSPECT 1
[2016-06-08] MEDS: ACYCLOVIR 400 MG TAB PO SCH ×3 (09:58→22:20)
[2016-06-08] MEDS: FLUCONAZOLE 100 MG TAB PO SCH (09:58)
[2016-06-08] MEDS: ALLOPURINOL 300 MG TAB PO SCH (09:58)
[2016-06-08] MEDS: OCULAR LUBRICANT 3.5 GM OPH OINT BOTH EYES SCH (09:58)
[2016-06-08] MEDS: ARTIFICIAL TEARS 15 ML OPH BOTH EYES SCH ×5 (09:58→22:20)
[2016-06-08] MEDS: GABAPENTIN 100 MG CAP PO SCH ×4 (09:58→22:20)
[2016-06-08] MEDS: MUPIROCIN 2% 22 GM OINT TOP SCH ×3 (09:59→22:21)
[2016-06-08] MEDS: ENOXAPARIN 30 MG/0.3 ML SYG SC SCH (10:05)
[2016-06-08 12:59] LABS: LYMPHOCYTES # 0.1 10^3/ul (0.8-2.9); MONOCYTE # 0.1 10^3/ul (0.3-0.9); NEUTROPHIL # 0.5 10^3/ul (1.6-7.5)
[2016-06-08 13:01] LABS: ANISOCYTOSIS 1+
--- NOTE | 2016-06-08 16:39 | PN ---
Date/Time of Note Date/Time of Note DATE: 06/08/16 TIME: 16:38 Assessment/Plan VTE Prophylaxis VTE Prophylaxis Intervention: other Lines/Catheters IV Catheter Type (from Nrs): PICC Line Central line still needed: Yes Urinary Cath still in place: No Assessment/Plan Chief Complaint/Hosp Course IMPRESSION: The patient has Burkitt's lymphoma status post tracheostomy, status post thyroid mass, status post pancytopenia, abnormal liver function test. The patient has anemia.NEUTROPENIA S/P CHEMO plan PER DR MERLOS ck cbc Problems: Subjective 24 Hr Interval Summary Cardiovascular: no complaints, No orthopenea, No palpitations Neurologic: no complaints Exam/Review of Systems Vital Signs Vitals Vital Signs Date Time Temp Pulse Resp B/P Pulse Ox O2 Delivery O2 Flow Rate FiO2 06/08/16 13:46 108 18 99 Aerosol Mask 5.0 28 06/08/16 09:51 99.7 107/66 Intake and Output 06/07/16 06/07/16 06/08/16 15:00 23:00 07:00 Intake Total 660 ml 1280 ml Output Total 600 ml 800 ml Balance 60 ml 480 ml Exam Neck: supple Respiratory: clear to auscultation Cardiovascular: regular rate and rhythm Gastrointestinal: soft Musculoskeletal: nl extremities to inspection Results Result Diagram: 06/08/165 06/08/16 0445 Results 24 hrs Laboratory Tests Test 06/07/16 17:07 06/08/16 04:45 Urine Bilirubin NEGATIVE Urine Clarity CLEAR Urine Color LT. YELLOW Urine Glucose NEGATIVE Urine Hemoglobin TRACE Urine Ketones NEGATIVE Urine Leukocyte Esterase NEGATIVE Urine Microscopic RBC 0-2 Urine Microscopic WBC 0-2 Urine Nitrite NEGATIVE Urine Specific [place] 1.010 Urine Squamous Epithelial Cells RARE Urine Total Protein NEGATIVE Urine Urobilinogen 0.2 E.U./dL Urine pH 7.0 Alanine Aminotransferase (ALT/SGPT) 54 Albumin 3.1 L Albumin/Globulin Ratio 1.19 Alkaline Phosphatase 98 Anion Gap 12 Anisocytosis 1+ Aspartate Amino Transf (AST/SGOT) 30 Band Neutrophils % 2.0 Basophils # 0.0 Basophils % 1.0 Blood Morphology Comment Blood Urea Nitrogen 6 L Calcium Level 8.1 L Carbon Dioxide Level 26 Chloride Level 104 Creatinine 0.30 L Differential Comment MANUAL DIFF Direct Bilirubin 0.00 Eosinophils # 0.0 Eosinophils % 2.0 Globulin 2.60 Glucose Level 108 Hematocrit 27.3 L Hemoglobin 9.5 L Indirect Bilirubin 0.5 Lactate Dehydrogenase 1051 H Lymphocytes # 0.1 L Lymphocytes % 14.0 L Mean Corpuscular Hemoglobin 29.1 Mean Corpuscular Hemoglobin Concent 34.9 Mean Corpuscular Volume 83.3 Mean Platelet Volume 6.7 L Metamyelocytes # 0.0 Metamyelocytes % 1.0 H Monocytes # 0.1 L Monocytes % 10.0 Neutrophils # 0.5 L Neutrophils % 70.0 Platelet Count 136 L Potassium Level 4.0 Red Blood Count 3.27 L Red Cell Distribution Width 17.2 H Sodium Level 138 Total Bilirubin 0.5 Total Protein 5.7 L Uric Acid 1.6 L White Blood Count 0.7 #L Medications Medications Current Medications Sodium Chloride (NS) 1,000 ml @ 100 mls/hr Q10H IV Last administered on at 11:48; Admin Dose 100 MLS/HR; Start 06/02/16 at 14:30 Acyclovir 400 mg 400 mg BID PO Last administered on 06/08/16at 09:58; Admin Dose 400 MG; Start 06/02/16 at 14:30 Methotrexate 175 mg/Sodium Chloride 250 ml @ 250 mls/hr ONCE IV ; Start at 03:00; Stop 06/16/16 at 03:59 Methotrexate 1590 mg/Sodium Chloride 1,000 ml @ 43.478 mls/ hr Q23H IV ; Start 06/16/16 at 04:00; Stop 06/17/16 at 02:59 Ondansetron HCl/ Dexamethasone/ Diphenhydramine HCl/Dextrose (Zofran Inj/ Decadron/Benadryl/ D5W) 59.5 ml @ 120 mls/hr ONCE IV ; Start 06/16/16 at 02:00 ; Stop 06/16/16 at 02:30 Diphenhydramine HCl (Benadryl) 25 mg Q4H PRN IV ALLERGIC REACTION Last administered on 06/06/16at 20:26; Admin Dose 25 MG; Start 06/02/16 at 18:30 Dexamethasone (Decadron) 10 mg Q4H PRN IV ALLERGIC REACTION; Start 06/02/16 at 18:30 Filgrastim 300 mcg 300 mcg DAILY@17 SC Last administered on 06/07/16at 18:04; Admin Dose 300 MCG; Start 06/04/16 at 17:00; Stop 06/08/16 at 17:01 Leucovorin Calcium/Dextrose (Leucovorin Calcium Inj/D5W) 50 ml @ 50 mls/hr Q6H IV ; Start 06/17/16 at 15:00 Fluconazole 100 mg 100 mg DAILY PO Last administered on 06/08/16at 09:58; Admin Dose 100 MG; Start 06/03/16 at 09:00 Ondansetron HCl 8 mg/Sodium Chloride 54 ml @ 216 mls/hr Q6H PRN IV NAUSEA AND/ OR VOMITING; Start 06/02/16 at 18:30 Sodium Bicarbonate/ Dextrose (Na Bicarb/D5W) 1,000 ml @ 125 mls/hr Q8H IV ; Start 06/17/16 at 03:00 Ondansetron HCl (Zofran Inj) 4 mg Q6H PRN IV NAUSEA AND/OR VOMITING; Start at 17:00 Acetaminophen (Tylenol Tab) 650 mg Q6H PRN PO PAIN LEVEL 1-3 OR FEVER Last administered on 06/07/16at 20:45; Admin Dose 650 MG; Start 06/03/16 at 17:00 Acetaminophen (Tylenol Supp) 650 mg Q6H PRN [place] PAIN LEVEL 1-3 OR FEVER; Start 06/03/16 at 17:00 Docusate Sodium (Colace) 100 mg Q12H PRN PO CONSTIPATION; Start 06/03/16 at 17 :00 Magnesium Hydroxide (Milk Of Mag) 30 ml DAILY PRN PO CONSTIPATION; Start 06/03 at 17:00 Bisacodyl (Dulcolax) 5 mg DAILY PRN PO CONSTIPATION; Start 06/03/16 at 17:00 Bisacodyl (Dulcolax Supp) 10 mg DAILY PRN [place] CONSTIPATION; Start 06/03/16 at 17:00 Sodium Biphosphate/ Sodium Phosphate (Fleet Enema) 133 ml DAILY PRN [place] CONSTIPATION; Start 06/03/16 at 17:00 Enoxaparin Sodium (Lovenox) 30 mg DAILY SC Last administered on 06/08/16at 10: 05; Admin Dose 30 MG; Start 06/04/16 at 09:00 Allopurinol (Zyloprim) 300 mg DAILY PO Last administered on 06/08/16at 09:58; Admin Dose 300 MG; Start 06/04/16 at 09:00 Eye Lubricant (Artificial Tears Oph) 2 drop QID BOTH EYES Last administered on 06/08/16 09:58; Admin Dose 2 DROP; Start 06/03/16 at 21:00 Eye Lubricant (Akwa Oint) 1 applic DAILY BOTH EYES Last administered on at 09:58; Admin Dose 1 APPLIC; Start 06/04/16 at 09:00 Gabapentin (Neurontin) 200 mg TID PO Last administered on 06/08/16at 09:58; Admin Dose 200 MG; Start 06/03/16 at 21:00 Levothyroxine Sodium (Synthroid) 100 mcg DAILY@06 PO Last administered on 06/08 05:49; Admin Dose 100 MCG; Start 06/04/16 at 06:00 Nystatin 5 ml 5 ml QID PO Last administered on 06/08/16at 09:57; Admin Dose 5 ML; Start 06/03/16 at 21:00 Vincristine Sulfate/Sodium Chloride (Oncovin/NS) 51 ml @ 102 mls/hr 05 IV ; Start 06/17/16 at 05:00; Stop 06/17/16 at 05:29 Mupirocin (Bactroban) 1 applic BID TOP Last administered on 06/08/16at 09:59; Admin Dose 1 APPLIC; Start 06/04/16 at 21:00 Pantoprazole (Protonix Tab) 40 mg DAILY@06 PO Last administered on 06/07/16at 05:29; Admin Dose 40 MG; Start 06/06/16 at 06:00 GUERLINE SULLIVAN MD Jun 08, 2016 16:39
[2016-06-08] MEDS: FILGRASTIM 300 MCG INJ SC SCH ×2 (17:00→22:19)
[2016-06-08] MEDS: LORAZEPAM 2 MG INJ IV PRN (18:38)
[2016-06-08 20:00] VITALS: BP 116/75; PULSE 109; RESP 17
[2016-06-08] MEDS: ACETAMINOPHEN 325 MG TAB PO PRN (22:20)
[2016-06-08] MEDS: ACETAMINOPHEN 650 MG SUPP PR PRN (22:26)
[2016-06-08] MEDS ORDERED: VANCOMYCIN 1 GM (PMX) 250 ML IVPB SCH (22:30)
[2016-06-08 22:56] LABS: INR 1.09; PARTIAL THROMBOPLASTIN TIME 31.4 Sec (25.0-35.0); PROTIME 14.1 Sec (12.2-14.2); PT RATIO 1.1
[2016-06-08] MEDS: CEFEPIME 1GM/50 ML (PMX) 50 ML IVPB SCH (23:41)
--- NOTE | 2016-06-08 23:52 | RADRPT ---
PROCEDURE: Chest xray. CLINICAL INDICATION: Bleeding from trache. TECHNIQUE: A portable upright AP view of the chest was obtained. COMPARISON: 05/20/2016. FINDINGS: There is a percutaneous tracheostomy tube with its tip projecting in the upper thoracic trachea. Th ere is a left arm PICC with its tip near the cavoatrial junction. There is stable mild enlargement of the cardiac silhouette. Atherosclerotic calcifications are again noted in the aortic arch. Ther e is pulmonary vascular congestion. Subsegmental atelectasis remains in the right mid lung zone. T here is suggestion of a small left pleural effusion. No pneumothorax is identified. IMPRESSION: Percutaneous tracheostomy tube tip projects in the upper thoracic trachea. Stable mild cardiomegaly and pulmonary vascular congestion. Right mid lung zone subsegmental atelectasis. Suggestion of a small left pleural effusion. RPTAT:PP .Bobbi Trevino MD, Date Time Electronically viewed and signed by .Bobbi Tervino MD, on 06/08/2016 23:51 .K/
[2016-06-09] VITALS (57 sets, daily range): BP systolic 91–148; BP diastolic 47–94; PULSE 88–120; RESP 15–43
[2016-06-09] MEDS: ALBUTEROL/IPRATROPIUM (NEB) 3 ML AMP HHN SCH ×6 (00:19→20:54)
[2016-06-09] MEDS: ACETAMINOPHEN 650 MG SUPP PR PRN (03:37)
[2016-06-09] MEDS ORDERED: SOD CHLORIDE 0.9% IV ONE (04:00)
[2016-06-09 04:34] LABS: HEMATOCRIT 26.5 % (37.0-47.0); HEMOGLOBIN 9.1 g/dl (12.0-16.0); MEAN CORPUSCULAR HEMOGLOBIN 28.8 pg (29.0-33.0); MEAN CORPUSCULAR HGB CONC 34.3 g/dl (32.0-37.0); MEAN PLATELET VOLUME 6.6 fl (7.4-10.4); PLATELET COUNT 107 10^3/UL (140-440); RED BLOOD COUNT 3.16 10^6/ul (4.20-5.40); RED CELL DISTRIBUTION WIDTH 17.3 % (11.5-14.5); UNCORRECTED WBC 0.3 10^3/ul (4.8-10.8); WHITE BLOOD COUNT 0.3 10^3/ul (4.8-10.8)
[2016-06-09 04:46] LABS: POTASSIUM 3.6 mmol/L (3.5-5.1)
[2016-06-09 04:48] LABS: ALBUMIN/GLOBULIN RATIO 1.15; BILIRUBIN,INDIRECT 0.6 mg/dl (0-1.1); BILIRUBIN,TOTAL 0.6 mg/dl (0.2-1.3); CREATININE 0.32 mg/dl (0.44-1.00); TOTAL PROTEIN 5.6 g/dl (6.1-8.1)
[2016-06-09 04:49] LABS: CALCIUM 8.2 mg/dl (8.4-10.2); URIC ACID 1.7 mg/dl (3.1-7.9)
[2016-06-09 04:54] LABS: CONDITION 1; LH ANALYZER COMMENTS 1; SUSPECT 1
[2016-06-09] MEDS: LEVOTHYROXINE 100 MCG TAB PO SCH (05:20)
[2016-06-09] MEDS: PANTOPRAZOLE 40 MG INJ IV SCH (05:20)
[2016-06-09] MEDS ORDERED: GENTAMICIN IV PER PHARMACY XX SCH (05:30)
[2016-06-09] MEDS ORDERED: VANCOMYCIN IV PER PHARMACY XX SCH (05:30)
[2016-06-09] MEDS: SOD CHLORIDE 0.9% IV SCH ×5 (06:29→09:30)
[2016-06-09] MEDS: SOD CHLORIDE 0.9% 1,000 ML IV SCH ×2 (06:30→16:30)
[2016-06-09] MEDS: FLUCONAZOLE 200 MG/NS (PMX) 100 ML IVPB SCH (06:37)
[2016-06-09] MEDS: ACYCLOVIR 400 MG TAB PO SCH ×2 (09:00→22:46)
[2016-06-09] MEDS ORDERED: VANCOMYCIN 1 GM in NS 250 ML IVPB SCH (09:00)
[2016-06-09] MEDS ORDERED: GENTAMICIN 120 MG/NS (PMX) 100 ML IVPB SCH (09:00)
[2016-06-09 09:42] LABS: LYMPHOCYTES # 0.2 10^3/ul (0.8-2.9)
[2016-06-09 09:57] LABS: ADD UMIC YES; URINE BILIRUBIN (Dip) NEGATIVE (NEGATIVE); URINE BLOOD (Dip) TRACE (NEGATIVE); URINE COLOR LT. YELLOW (YELLOW); URINE GLUCOSE (Dip) NEGATIVE (NEGATIVE); URINE KETONES (Dip) 15 (NEGATIVE); URINE LEUKOCYTE ESTERASE (Dip) NEGATIVE (NEGATIVE); URINE NITRITE (Dip) NEGATIVE (NEGATIVE); URINE TOTAL PROTEIN (Dip) NEGATIVE (NEGATIVE); URINE UROBILINOGEN (Dip) 0.2 E.U./dL (0.1-1.0)
[2016-06-09 11:03] LABS: SQUAMOUS EPITHELIAL CELL,UR FEW; URINE RBCS 0-2 /HPF (0)
[2016-06-09] MEDS: CEFEPIME 1GM/50 ML (PMX) 50 ML IVPB SCH (11:37)
[2016-06-09] MEDS: OCULAR LUBRICANT 3.5 GM OPH OINT BOTH EYES SCH (11:45)
[2016-06-09] MEDS: NYSTATIN SUSP 5 ML CUP PO SCH ×4 (12:16→22:05)
[2016-06-09] MEDS: GABAPENTIN 100 MG CAP PO SCH ×3 (12:16→22:06)
[2016-06-09] MEDS: ALLOPURINOL 300 MG TAB PO SCH (12:16)
[2016-06-09] MEDS: ARTIFICIAL TEARS 15 ML OPH BOTH EYES SCH ×4 (12:48→22:06)
[2016-06-09] MEDS: MUPIROCIN 2% 22 GM OINT TOP SCH ×2 (12:51→22:06)
[2016-06-09] MEDS: ENOXAPARIN 30 MG/0.3 ML SYG SC SCH (12:51)
--- NOTE | 2016-06-09 12:59 | CONS ---
Date/Time of Note Date/Time of Note DATE: 06/09/16 TIME: 12:53 Assessment/Plan Assessment/Plan Chief Complaint/Hosp Course 56 yo female with massive neck mass causing tracheal compression and airway compromise s/p tracheostomy placement. 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 Pt was given cycle 1A and 1B of R HyperCVAD but had only a partial response to therapy and severe side effects. We have thus changed her chemotherapy regimen. She is now being admitted for cycle 1 of R-CODOX-M. Problems: Additional Assessment/Plan # Burkitt's lymphoma -continue with cycle 1 R CODOX -M. today is day 7 -Rituximab (Rituxan) as follows: * Cycle 1: 375 mg/m2 (660mg) IV on Day 1 -Cyclophosphamide (Cytoxan) 800 mg/m2 ( 1415mg) IV once per day on days 1 & 2 -Vincristine (Oncovin) 1.0 mg (dose reduced for neuropathy) days 1 & 15 -Doxorubicin (Adriamycin) 50 mg/m2 (88mg) IV once on day 1 -Methotrexate (MTX) 100mg/m2 (175mg) IV over 1 hour then 900mg/m2 (1590mg) over 23 hours on day 15. will start Na HCo3 prior to MTX infusion and only start MTX once Urine Ph > 7.0. Leucovorin 25mg IV q 4 hours will start 36 hours after MTX starts until MTX level is < 0.05. # Neutropenic fever -cont Neupogen 480mcg q day -continue antibiotics. will consult Dr. 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 all steroids should be discontinued for now unless they are part of the chemotherapy regimen -continue to work with physical therapy. 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 -uric acid level ok, 1.9 today -will continue to monitor LDH Approximately 40 min were spent at patient;s bedside and in coordination of her care Consultation Date/Type/Reason Admit Date/Time Jun 02, 2016 at 15:10 Initial Consult Date 06/02/16 Type of Consultation: Hematology Reason for Consultation Burkitt's lymphoma Referring Provider: TELLY SOLANO MD 24 HR Interval Summary Free Text/Dictation pt transferred to ICU for neutropenic sepsis. t max to 103. currently not on pressors. pt given a dose of gentamicin Exam/Review of Systems Vital Signs Vitals Vital Signs Date Time Temp Pulse Resp B/P Pulse Ox O2 Delivery O2 Flow Rate FiO2 06/09/16 12:00 112 06/09/16 09:36 98 5.0 28 06/09/16 09:36 30 Aerosol 06/09/16 08:15 113/66 06/09/16 08:00 99.7 Intake and Output 06/08/16 06/08/16 06/09/16 15:00 23:00 07:00 Intake Total 1640 ml 1000 ml Output Total 800 ml 400 ml Balance 840 ml 600 ml Exam Constitutional: alert, oriented Psych: no complaints Head: atraumatic, normocephalic Eyes: nl conjunctiva Neck: other (trach in place) Respiratory: diminished breath sounds Cardiovascular: other (tachycardic) Gastrointestinal: soft Musculoskeletal: nl extremities to inspection, nl gait and stance Extremities: normal pulses Results Result Diagram: 06/09/16 0424 06/09/16423 Results 24 hrs Laboratory Tests Test 06/08/16 22:35 06/09/16 03:55 06/09/16 04:24 06/09/16 05:45 Activated Partial Thromboplast Time 31.4 INR International Normalized Ratio 1.09 Prothrombin Time 14.1 Prothrombin Time Ratio 1.1 Bedside Glucose 116 Alanine Aminotransferase (ALT/SGPT) 55 Albumin 3.0 L Albumin/Globulin Ratio 1.15 Alkaline Phosphatase 99 Anion Gap 13 Aspartate Amino Transf (AST/SGOT) 26 Basophils # 0.0 Basophils % 4.0 H Blood Morphology Comment Blood Urea Nitrogen 5 L Calcium Level 8.2 L Carbon Dioxide Level 25 Chloride Level 103 Creatinine 0.32 L Direct Bilirubin 0.00 Eosinophils # 0.0 Eosinophils % 4.0 Globulin 2.60 Glucose Level 118 Hematocrit 26.5 L Hemoglobin 9.1 L Indirect Bilirubin 0.6 Lactate Dehydrogenase 865 H Lactic Acid Level 0.9 Lymphocytes # 0.2 L Lymphocytes % 76.0 H Mean Corpuscular Hemoglobin 28.8 L Mean Corpuscular Hemoglobin Concent 34.3 Mean Corpuscular Volume 84.0 Mean Platelet Volume 6.6 L Monocytes # 0.0 L Monocytes % 8.0 Neutrophils # 0.0 L Neutrophils % 8.0 L Platelet Count 107 #L Potassium Level 3.6 Red Blood Count 3.16 L Red Cell Distribution Width 17.3 H Sodium Level 137 Total Bilirubin 0.6 Total Protein 5.6 L Uric Acid 1.7 L White Blood Count 0.3 #L Urine Bilirubin NEGATIVE Urine Clarity CLEAR Urine Color LT. YELLOW Urine Glucose NEGATIVE Urine Hemoglobin TRACE Urine Ketones 15 Urine Leukocyte Esterase NEGATIVE Urine Microscopic RBC 0-2 Urine Microscopic WBC NONE SEEN Urine Nitrite NEGATIVE Urine Specific [place] 1.015 Urine Squamous Epithelial Cells FEW Urine Total Protein NEGATIVE Urine Urobilinogen 0.2 E.U./dL Urine pH 5.5 Test 06/09/16 10:30 Lactic Acid Level 0.8 Medications Medications Current Medications Sodium Chloride (NS) 1,000 ml @ 100 mls/hr Q10H IV Last administered on at 22:20; Admin Dose 100 MLS/HR; Start 06/02/16 at 14:30 Acyclovir 400 mg 400 mg BID PO Last administered on 06/08/16at 09:58; Admin Dose 400 MG; Start 06/02/16 at 14:30 Methotrexate 175 mg/Sodium Chloride 250 ml @ 250 mls/hr ONCE IV ; Start at 03:00; Stop 06/16/16 at 03:59 Methotrexate 1590 mg/Sodium Chloride 1,000 ml @ 43.478 mls/ hr Q23H IV ; Start 06/16/16 at 04:00; Stop 06/17/16 at 02:59 Ondansetron HCl/ Dexamethasone/ Diphenhydramine HCl/Dextrose (Zofran Inj/ Decadron/Benadryl/ D5W) 59.5 ml @ 120 mls/hr ONCE IV ; Start 06/16/16 at 02:00 ; Stop 06/16/16 at 02:30 Diphenhydramine HCl (Benadryl) 25 mg Q4H PRN IV ALLERGIC REACTION Last administered on 06/06/16at 20:26; Admin Dose 25 MG; Start 06/02/16 at 18:30 Dexamethasone 10 mg 10 mg Q4H PRN IV ALLERGIC REACTION; Start 06/02/16 at 18: 30 Leucovorin Calcium/Dextrose (Leucovorin Calcium Inj/D5W) 50 ml @ 50 mls/hr Q6H IV ; Start 06/17/16 at 15:00 Fluconazole 100 mg 100 mg DAILY PO Last administered on 06/08/16at 09:58; Admin Dose 100 MG; Start 06/03/16 at 09:00; Status Future Hold Ondansetron HCl 8 mg/Sodium Chloride 54 ml @ 216 mls/hr Q6H PRN IV NAUSEA AND/ OR VOMITING; Start 06/02/16 at 18:30 Sodium Bicarbonate/ Dextrose (Na Bicarb/D5W) 1,000 ml @ 125 mls/hr Q8H IV ; Start 06/17/16 at 03:00 Ondansetron HCl (Zofran Inj) 4 mg Q6H PRN IV NAUSEA AND/OR VOMITING; Start at 17:00 Acetaminophen (Tylenol Tab) 650 mg Q6H PRN PO PAIN LEVEL 1-3 OR FEVER Last administered on 06/07/16at 20:45; Admin Dose 650 MG; Start 06/03/16 at 17:00 Acetaminophen (Tylenol Supp) 650 mg Q6H PRN IN PAIN LEVEL 1-3 OR FEVER Last administered on 06/09/16at 03:37; Admin Dose 650 MG; Start 06/03/16 at 17:00 Docusate Sodium (Colace) 100 mg Q12H PRN PO CONSTIPATION; Start 06/03/16 at 17 :00 Magnesium Hydroxide (Milk Of Mag) 30 ml DAILY PRN PO CONSTIPATION; Start 06/03 at 17:00 Bisacodyl (Dulcolax) 5 mg DAILY PRN PO CONSTIPATION; Start 06/03/16 at 17:00 Bisacodyl (Dulcolax Supp) 10 mg DAILY PRN IN CONSTIPATION; Start 06/03/16 at 17:00 Sodium Biphosphate/ Sodium Phosphate (Fleet Enema) 133 ml DAILY PRN IN CONSTIPATION; Start 06/03/16 at 17:00 Enoxaparin Sodium (Lovenox) 30 mg DAILY SC Last administered on 06/08/16at 10: 05; Admin Dose 30 MG; Start 06/04/16 at 09:00 Allopurinol (Zyloprim) 300 mg DAILY PO Last administered on 06/09/16at 12:16; Admin Dose 300 MG; Start 06/04/16 at 09:00 Eye Lubricant (Artificial Tears Oph) 2 drop QID BOTH EYES Last administered on 06/08/16at 18:38; Admin Dose 2 DROP; Start 06/03/16 at 21:00 Eye Lubricant (Akwa Oint) 1 applic DAILY BOTH EYES Last administered on at 11:45; Admin Dose 1 APPLIC; Start 06/04/16 at 09:00 Gabapentin (Neurontin) 200 mg TID PO Last administered on 06/09/16at 12:16; Admin Dose 200 MG; Start 06/03/16 at 21:00 Levothyroxine Sodium (Synthroid) 100 mcg DAILY@06 PO Last administered on 06/08at 05:49; Admin Dose 100 MCG; Start 06/04/16 at 06:00 Nystatin 5 ml 5 ml QID PO Last administered on 06/09/16at 12:16; Admin Dose 5 ML; Start 06/03/16 at 21:00 Vincristine Sulfate/Sodium Chloride (Oncovin/NS) 51 ml @ 102 mls/hr 05 IV ; Start 06/17/16 at 05:00; Stop 06/17/16 at 05:29 Mupirocin (Bactroban) 1 applic BID TOP Last administered on 06/08/16at 09:59; Admin Dose 1 APPLIC; Start 06/04/16 at 21:00 Pantoprazole (Protonix Iv) 40 mg DAILY@06 IV Last administered on 06/09/16at 05 :20; Admin Dose 40 MG; Start 06/09/16 at 06:00 Lorazepam 1 mg 1 mg Q6H PRN IV AGITATION/ANXIETY Last administered on at 18:38; Admin Dose 1 MG; Start 06/08/16 at 18:00 Cefepime HCl 50 ml @ 100 mls/hr DAILY IVPB Last administered on 06/09/16at 11: 37; Admin Dose 100 MLS/HR; Start 06/08/16 at 23:00 Sodium Chloride 2,600 ml @ 2,600 mls/hr Q1H IV Last administered on at 06:45; Admin Dose 2,600 MLS/HR; Start 06/09/16 at 05:30 Fluconazole (Diflucan 200 Mg/ NS (Pmx)) 100 ml @ 100 mls/hr Q24H IVPB Last administered on 06/09/16at 06:37; Admin Dose 100 MLS/HR; Start 06/09/16 at 05: 30 Gentamicin Sulfate GENTAMICIN PER PHARM... NOTE XX ; Start 06/09/16 at 05:30 Vancomycin HCl 250 ml @ 125 mls/hr Q12H IVPB Last administered on 06/09/16at 11:38; Admin Dose 125 MLS/HR; Start 06/09/16 at 09:00 Gentamicin Sulfate 100 ml @ 200 mls/hr Q8H IVPB Last administered on at 11:36; Admin Dose 200 MLS/HR; Start 06/09/16 at 09:00 Imipenem/ Cilastatin Sodium (Primaxin 500 Mg/ 100 ml (Pmx)) 100 ml @ 100 mls/ hr Q8 IVPB ; Start 06/09/16 at 14:00 CHANDRIKA MERLOS M.D. Jun 09, 2016 12:59
[2016-06-09] MEDS: IMIPENEM-CILAST 500MG IV (PMX) 100 ML IVPB SCH ×2 (14:03→22:06)
[2016-06-09] MEDS: ACETAMINOPHEN 325 MG TAB PO PRN (14:36)
--- NOTE | 2016-06-09 15:26 | PN ---
DATE: 06/09/2016 SUBJECTIVE: Patient was transferred to ICU secondary to fever of 103, acute encephalopathy. Curren tly sleeping and in no distress. ANTIMICROBIALS: 1. Patient received IV bolus. 2. Vancomycin. 3. Fluconazole. 4. Gentamicin 5. Cefepime. 6. She is also getting topical Bactroban to nares. 7. She is also on acyclovir. VITAL SIGNS: T-max 103.9, T-current 99.7, pulse 112, respirations 30, blood pressure 113/66, satura tion 98 on trach mask. WBC 0.3, H and H 9.1 and 26.5, platelets 107. Neutrophils of ____ no bands. BUN 5, creatinine 0.82. MICROBIOLOGY: Nares swab on admission growing MRSA. INDWELLINGS: The patient has PICC line, tracheostomy. PHYSICAL EXAMINATION: GENERAL: A well developed , fragile, middle-aged [place] woman who is in no distress. Patient is sleeping. HEENT: Head atraumatic, normocephalic. Sclerae anicteric. Buccal mucosa dry. NECK: Supple, trachea midline. CHEST: Rise symmetrical. Breath sounds diminished to bases. HEART: S1, S2. ABDOMEN: Soft, bowel tones present. EXTREMITIES: Without cyanosis. ASSESSMENT: 1. Neutropenic fevers, rule out pneumonia, rule out other infectious etiologies. 2. Stage IIA Burkitt's lymphoma, currently in chemotherapy. 3. Methicillin-resistant Staphylococcus aureus nares colonization. 4. Respiratory failure, status post tracheostomy secondary to a neck mass causing tracheal compress ion and airway compromise. 5. Neutropenia and pancytopenia. PLAN: We are going to discontinue cefepime and gentamicin and start patient on imipenem. Continue vancomycin, Diflucan and acyclovir. Check blood and urine cultures, follow on chest x-ray tomorrow. Continue Bactroban to nares. Follow oncology recommendations. Dictated By: RODRÍGUEZ ERAZO ASSOCIATE DIRECTOR QA for JILLIAN CUEVAS/YUNI Conf#: [id number] DID#: [id number]
[2016-06-09 16:55] LABS: WHITE BLOOD COUNT 0.7 10^3/ul (4.8-10.8)
[2016-06-09] MEDS: FILGRASTIM IVPB SCH (17:00)
[2016-06-09] MEDS: DEXTROSE 5% IVPB SCH (17:00)
--- NOTE | 2016-06-09 22:30 | PN ---
Date/Time of Note Date/Time of Note DATE: 06/09/16 TIME: 22:28 Assessment/Plan VTE Prophylaxis VTE Prophylaxis Intervention: other Lines/Catheters IV Catheter Type (from Nrs): PICC Line Central line still needed: Yes Urinary Cath still in place: No Assessment/Plan Chief Complaint/Hosp Course IMPRESSION: The patient has Burkitt's lymphoma status post tracheostomy, status post thyroid mass, status post pancytopenia, abnormal liver function test. The patient has anemia.NEUTROPENIA S/P CHEMO, S/P [employer] plan PER DR MERLOS ANTIBIOTIC IV FLUID ID CONSULT Problems: Subjective 24 Hr Interval Summary Subjective hx not possible: other (S/P [employer] NOW IN ICU) Exam/Review of Systems Vital Signs Vitals Vital Signs Date Time Temp Pulse Resp B/P Pulse Ox O2 Delivery O2 Flow Rate FiO2 06/09/16 20:59 98 5.0 28 06/09/16 20:55 107 24 Aerosol 06/09/16 19:30 140/79 06/09/16 16:00 99.7 Intake and Output 06/08/16 06/08/16 06/09/16 15:00 23:00 07:00 Intake Total 1640 ml 1000 ml Output Total 800 ml 400 ml Balance 840 ml 600 ml Exam Respiratory: diminished breath sounds Cardiovascular: regular rate and rhythm Gastrointestinal: soft Musculoskeletal: nl extremities to inspection Extremities: normal pulses Results Result Diagram: 06/09/16 0424 06/09/16 0424 Results 24 hrs Laboratory Tests Test 06/08/16 22:35 06/09/16 03:55 06/09/16 04:24 06/09/16 05:45 Activated Partial Thromboplast Time 31.4 INR International Normalized Ratio 1.09 Prothrombin Time 14.1 Prothrombin Time Ratio 1.1 Bedside Glucose 116 Alanine Aminotransferase (ALT/SGPT) 55 Albumin 3.0 L Albumin/Globulin Ratio 1.15 Alkaline Phosphatase 99 Anion Gap 13 Aspartate Amino Transf (AST/SGOT) 26 Basophils # 0.0 Basophils % 4.0 H Blood Morphology Comment Blood Urea Nitrogen 5 L Calcium Level 8.2 L Carbon Dioxide Level 25 Chloride Level 103 Creatinine 0.32 L Direct Bilirubin 0.00 Eosinophils # 0.0 Eosinophils % 4.0 Globulin 2.60 Glucose Level 118 Hematocrit 26.5 L Hemoglobin 9.1 L Indirect Bilirubin 0.6 Lactate Dehydrogenase 865 H Lactic Acid Level 0.9 Lymphocytes # 0.2 L Lymphocytes % 76.0 H Mean Corpuscular Hemoglobin 28.8 L Mean Corpuscular Hemoglobin Concent 34.3 Mean Corpuscular Volume 84.0 Mean Platelet Volume 6.6 L Monocytes # 0.0 L Monocytes % 8.0 Neutrophils # 0.0 L Neutrophils % 8.0 L Platelet Count 107 #L Potassium Level 3.6 Red Blood Count 3.16 L Red Cell Distribution Width 17.3 H Sodium Level 137 Total Bilirubin 0.6 Total Protein 5.6 L Uric Acid 1.7 L White Blood Count 0.3 #L Urine Bilirubin NEGATIVE Urine Clarity CLEAR Urine Color LT. YELLOW Urine Glucose NEGATIVE Urine Hemoglobin TRACE Urine Ketones 15 Urine Leukocyte Esterase NEGATIVE Urine Microscopic RBC 0-2 Urine Microscopic WBC NONE SEEN Urine Nitrite NEGATIVE Urine Specific [place] 1.015 Urine Squamous Epithelial Cells FEW Urine Total Protein NEGATIVE Urine Urobilinogen 0.2 E.U./dL Urine pH 5.5 Test 06/09/16 10:30 Lactic Acid Level 0.8 Medications Medications Current Medications Sodium Chloride (NS) 1,000 ml @ 100 mls/hr Q10H IV Last administered on at 22:20; Admin Dose 100 MLS/HR; Start 06/02/16 at 14:30 Acyclovir 400 mg 400 mg BID PO Last administered on 06/09/16at 09:00; Admin Dose 400 MG; Start 06/02/16 at 14:30 Methotrexate 175 mg/Sodium Chloride 250 ml @ 250 mls/hr ONCE IV ; Start at 03:00; Stop 06/16/16 at 03:59 Methotrexate 1590 mg/Sodium Chloride 1,000 ml @ 43.478 mls/ hr Q23H IV ; Start 06/16/16 at 04:00; Stop 06/17/16 at 02:59 Ondansetron HCl/ Dexamethasone/ Diphenhydramine HCl/Dextrose (Zofran Inj/ Decadron/Benadryl/ D5W) 59.5 ml @ 120 mls/hr ONCE IV ; Start 06/16/16 at 02:00 ; Stop 06/16/16 at 02:30 Diphenhydramine HCl (Benadryl) 25 mg Q4H PRN IV ALLERGIC REACTION Last administered on 06/06/16at 20:26; Admin Dose 25 MG; Start 06/02/16 at 18:30 Dexamethasone 10 mg 10 mg Q4H PRN IV ALLERGIC REACTION; Start 06/02/16 at 18: 30 Leucovorin Calcium/Dextrose (Leucovorin Calcium Inj/D5W) 50 ml @ 50 mls/hr Q6H IV ; Start 06/17/16 at 15:00 Fluconazole 100 mg 100 mg DAILY PO Last administered on 06/08/16at 09:58; Admin Dose 100 MG; Start 06/03/16 at 09:00; Status Future Hold Ondansetron HCl 8 mg/Sodium Chloride 54 ml @ 216 mls/hr Q6H PRN IV NAUSEA AND/ OR VOMITING; Start 06/02/16 at 18:30 Sodium Bicarbonate/ Dextrose (Na Bicarb/D5W) 1,000 ml @ 125 mls/hr Q8H IV ; Start 06/17/16 at 03:00 Ondansetron HCl (Zofran Inj) 4 mg Q6H PRN IV NAUSEA AND/OR VOMITING; Start at 17:00 Acetaminophen (Tylenol Tab) 650 mg Q6H PRN PO PAIN LEVEL 1-3 OR FEVER Last administered on 06/09/16at 14:36; Admin Dose 650 MG; Start 06/03/16 at 17:00 Acetaminophen (Tylenol Supp) 650 mg Q6H PRN [place] PAIN LEVEL 1-3 OR FEVER Last administered on 06/09/16at 03:37; Admin Dose 650 MG; Start 06/03/16 at 17:00 Docusate Sodium (Colace) 100 mg Q12H PRN PO CONSTIPATION; Start 06/03/16 at 17 :00 Magnesium Hydroxide (Milk Of Mag) 30 ml DAILY PRN PO CONSTIPATION; Start 06/03 at 17:00 Bisacodyl (Dulcolax) 5 mg DAILY PRN PO CONSTIPATION; Start 06/03/16 at 17:00 Bisacodyl (Dulcolax Supp) 10 mg DAILY PRN [place] CONSTIPATION; Start 06/03/16 at 17:00 Sodium Biphosphate/ Sodium Phosphate (Fleet Enema) 133 ml DAILY PRN [place] CONSTIPATION; Start 06/03/16 at 17:00 Enoxaparin Sodium (Lovenox) 30 mg DAILY SC Last administered on 06/09/16at 12: 51; Admin Dose 30 MG; Start 06/04/16 at 09:00 Allopurinol (Zyloprim) 300 mg DAILY PO Last administered on 06/09/16at 12:16; Admin Dose 300 MG; Start 06/04/16 at 09:00 Eye Lubricant (Artificial Tears Oph) 2 drop QID BOTH EYES Last administered on 06/09/16at 22:06; Admin Dose 2 DROP; Start 06/03/16 at 21:00 Eye Lubricant (Akwa Oint) 1 applic DAILY BOTH EYES Last administered on at 11:45; Admin Dose 1 APPLIC; Start 06/04/16 at 09:00 Gabapentin (Neurontin) 200 mg TID PO Last administered on 06/09/16at 22:06; Admin Dose 200 MG; Start 06/03/16 at 21:00 Levothyroxine Sodium (Synthroid) 100 mcg DAILY@06 PO Last administered on 06/08at 05:49; Admin Dose 100 MCG; Start 06/04/16 at 06:00 Nystatin 5 ml 5 ml QID PO Last administered on 06/09/16at 22:05; Admin Dose 5 ML; Start 06/03/16 at 21:00 Vincristine Sulfate/Sodium Chloride (Oncovin/NS) 51 ml @ 102 mls/hr 05 IV ; Start 06/17/16 at 05:00; Stop 06/17/16 at 05:29 Mupirocin (Bactroban) 1 applic BID TOP Last administered on 06/09/16at 22:06; Admin Dose 1 APPLIC; Start 06/04/16 at 21:00 Pantoprazole (Protonix Iv) 40 mg DAILY@06 IV Last administered on 06/09/16at 05 :20; Admin Dose 40 MG; Start 06/09/16 at 06:00 Lorazepam 1 mg 1 mg Q6H PRN IV AGITATION/ANXIETY Last administered on at 18:38; Admin Dose 1 MG; Start 06/08/16 at 18:00 Fluconazole 100 ml @ 100 mls/hr Q24H IVPB Last administered on 06/09/16at 06: 37; Admin Dose 100 MLS/HR; Start 06/09/16 at 05:30 Imipenem/ Cilastatin Sodium 100 ml @ 100 mls/hr Q8 IVPB Last administered on 06/09/16at 22:06; Admin Dose 100 MLS/HR; Start 06/09/16 at 14:00 Filgrastim 480 mcg/Dextrose 51.6 ml @ 103.2 mls/ hr DAILY@17 IVPB Last administered on 06/09/16at 17:00; Admin Dose 103.2 MLS/HR; Start 06/09/16 at 17 :00 Vancomycin HCl/ Sodium Chloride (Vancocin/NS) 250 ml @ 83.333 mls/ hr Q12H IVPB ; Start 06/09/16 at 21:00 GUERLINE SULLIVAN MD Jun 09, 2016 22:30
[2016-06-09] MEDS: VANCOMYCIN 1.25 GM in SOD CHLORIDE 0.9% 250 ML IVPB SCH (23:49)
[2016-06-10] VITALS (19 sets, daily range): BP systolic 100–137; BP diastolic 51–88; PULSE 87–117; RESP 18–44
[2016-06-10] MEDS: SOD CHLORIDE 0.9% 1,000 ML IV SCH ×3 (00:01→22:28)
[2016-06-10] MEDS: ALBUTEROL/IPRATROPIUM (NEB) 3 ML AMP HHN SCH ×6 (01:46→20:09)
[2016-06-10 05:32] LABS: ALBUMIN 2.4 g/dl (3.3-4.9); ALBUMIN/GLOBULIN RATIO 0.88; BILIRUBIN,INDIRECT 0.3 mg/dl (0-1.1); BILIRUBIN,TOTAL 0.3 mg/dl (0.2-1.3); CALCIUM 7.7 mg/dl (8.4-10.2); CREATININE 0.31 mg/dl (0.44-1.00); TOTAL PROTEIN 5.1 g/dl (6.1-8.1); URIC ACID 1.5 mg/dl (3.1-7.9)
[2016-06-10] MEDS: PANTOPRAZOLE 40 MG INJ IV SCH (05:43)
[2016-06-10] MEDS: FLUCONAZOLE 200 MG/NS (PMX) 100 ML IVPB SCH (05:43)
[2016-06-10 05:44] LABS: HEMATOCRIT 20.7 % (37.0-47.0); HEMOGLOBIN 7.2 g/dl (12.0-16.0); MEAN CORPUSCULAR HEMOGLOBIN 29.3 pg (29.0-33.0); MEAN CORPUSCULAR HGB CONC 34.8 g/dl (32.0-37.0); MEAN CORPUSCULAR VOLUME 84.3 fl (82.0-101.0); MEAN PLATELET VOLUME 6.9 fl (7.4-10.4); PLATELET COUNT 66 10^3/UL (140-440); RED BLOOD COUNT 2.46 10^6/ul (4.20-5.40); RED CELL DISTRIBUTION WIDTH 17.3 % (11.5-14.5); UNCORRECTED WBC 0.3 10^3/ul (4.8-10.8); WHITE BLOOD COUNT 0.3 10^3/ul (4.8-10.8)
[2016-06-10] MEDS: LEVOTHYROXINE 100 MCG TAB PO SCH (05:44)
[2016-06-10] MEDS: IMIPENEM-CILAST 500MG IV (PMX) 100 ML IVPB SCH ×3 (05:44→21:24)
[2016-06-10 05:58] LABS: CONDITION 1; LH ANALYZER COMMENTS 1; SUSPECT 1
[2016-06-10 06:37] LABS: POTASSIUM 2.9 mmol/L (3.5-5.1)
[2016-06-10] MEDS ORDERED: POTASSIUM CHLORIDE 250 ML IVPB ONE (07:00)
--- NOTE | 2016-06-10 09:32 | RADRPT ---
PROCEDURE: XR Chest. CLINICAL INDICATION: Shortness of breath. TECHNIQUE: Single frontal chest x-ray. COMPARISON: Chest radiograph 12 01/30/2016. FINDINGS: Interval removal of the left upper extremity PICC line is noted. The cardiac silhouette remains mildly enlarged. Interval decrease in mild pulmonary vascular conges tion. Aortic atherosclerotic vascular calcifications are identified. There are bilateral low lung volumes with vascular crowding and mild bibasilar atelectasis which has slightly improved compared to prior study. No pneumothorax, pleural effusion or consolidation is s een. No acute osseous abnormality is noted. IMPRESSION: 1. Interval removal of the left upper extremity PICC line. 2. Low lung volumes with vascular crowding and mild bibasilar atelectasis which has slightly impro neva compared to prior study. 3. Persistent mild cardiomegaly with interval decrease in mild pulmonary vascular congestion. 4. Aortic atherosclerosis. RPTAT: [facility] .Lindy Parks MD, MD Date Time Electronically viewed and signed by .Lindy Parks MD, on 06/10/2016 09:32 .N/
--- NOTE | 2016-06-10 09:34 | CONS ---
Date/Time of Note Date/Time of Note DATE: 06/10/16 TIME: 09:32 Assessment/Plan Assessment/Plan Chief Complaint/Hosp Course 56 yo female with massive neck mass causing tracheal compression and airway compromise s/p tracheostomy placement. 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 Pt was given cycle 1A and 1B of R HyperCVAD but had only a partial response to therapy and severe side effects. We have thus changed her chemotherapy regimen. She is now being admitted for cycle 1 of R-CODOX-M. Problems: Additional Assessment/Plan # Burkitt's lymphoma -continue with cycle 1 R CODOX -M. today is day 8 -Rituximab (Rituxan) as follows: * Cycle 1: 375 mg/m2 (660mg) IV on Day 1 -Cyclophosphamide (Cytoxan) 800 mg/m2 ( 1415mg) IV once per day on days 1 & 2 -Vincristine (Oncovin) 1.0 mg (dose reduced for neuropathy) days 1 & 15 -Doxorubicin (Adriamycin) 50 mg/m2 (88mg) IV once on day 1 -Methotrexate (MTX) 100mg/m2 (175mg) IV over 1 hour then 900mg/m2 (1590mg) over 23 hours on day 15. will start Na HCo3 prior to MTX infusion and only start MTX once Urine Ph > 7.0. Leucovorin 25mg IV q 4 hours will start 36 hours after MTX starts until MTX level is < 0.05. # Neutropenic fever -pt is now afebrile -cont Neupogen 480mcg q day -continue antibiotics. will consult Dr. 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 all steroids should be discontinued for now unless they are part of the chemotherapy regimen -continue to work with physical therapy. 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 -uric acid level ok, 1.9 today -will continue to monitor LDH Approximately 40 min were spent at patient;s bedside and in coordination of her care Consultation Date/Type/Reason Admit Date/Time Jun 02, 2016 at 15:10 Initial Consult Date 06/02/16 Type of Consultation: Hematology Reason for Consultation Stage II Burkitt's lymphoma Referring Provider: TELLY SOLANO MD 24 HR Interval Summary Free Text/Dictation pt remains afebrile. still neutropenic Exam/Review of Systems Vital Signs Vitals Vital Signs Date Time Temp Pulse Resp B/P Pulse Ox O2 Delivery O2 Flow Rate FiO2 06/10/16 07:00 102 25 130/68 98 Trach Collar 5.0 06/10/16 05:54 28 06/10/16 04:00 98.1 Intake and Output 06/09/16 06/09/16 06/10/16 15:00 23:00 07:00 Intake Total 1420 ml 603.6 ml 1233.2 ml Output Total 1050 ml 350 ml Balance 370 ml 253.6 ml 1233.2 ml Exam Constitutional: alert, oriented Psych: anxiety Head: normocephalic ENMT: other (trach in place) Respiratory: clear to auscultation, normal air movement Cardiovascular: nl pulses, regular rate and rhythm Gastrointestinal: soft Musculoskeletal: nl extremities to inspection, nl gait and stance Extremities: normal pulses Results Result Diagram: 06/10/16 0430 06/10/16 0430 Results 24 hrs Laboratory Tests Test 06/09/16 10:30 06/10/16 04:30 Lactic Acid Level 0.8 Alanine Aminotransferase (ALT/SGPT) 49 Albumin 2.4 L Albumin/Globulin Ratio 0.88 Alkaline Phosphatase 86 Anion Gap 10 Aspartate Amino Transf (AST/SGOT) 20 Basophils # Basophils % Blood Morphology Comment Blood Urea Nitrogen 3 L Calcium Level 7.7 L Carbon Dioxide Level 25 Chloride Level 110 Creatinine 0.31 L Direct Bilirubin 0.00 Eosinophils # Eosinophils % Globulin 2.70 Glucose Level 87 Hematocrit 20.7 #L Hemoglobin 7.2 #L Indirect Bilirubin 0.3 Lactate Dehydrogenase 700 H Lymphocytes # Mean Corpuscular Hemoglobin 29.3 Mean Corpuscular Hemoglobin Concent 34.8 Mean Corpuscular Volume 84.3 Mean Platelet Volume 6.9 L Monocytes # Neutrophils # Neutrophils % Platelet Count 66 #L Potassium Level 2.9 *L Red Blood Count 2.46 #L Red Cell Distribution Width 17.3 H Sodium Level 142 Total Bilirubin 0.3 Total Protein 5.1 L Uric Acid 1.5 L White Blood Count 0.3 L Medications Medications Current Medications Sodium Chloride (NS) 1,000 ml @ 100 mls/hr Q10H IV Last administered on at 00:01; Admin Dose 100 MLS/HR; Start 06/02/16 at 14:30 Acyclovir 400 mg 400 mg BID PO Last administered on 06/09/16at 22:46; Admin Dose 400 MG; Start 06/02/16 at 14:30 Methotrexate 175 mg/Sodium Chloride 250 ml @ 250 mls/hr ONCE IV ; Start at 03:00; Stop 06/16/16 at 03:59 Methotrexate 1590 mg/Sodium Chloride 1,000 ml @ 43.478 mls/ hr Q23H IV ; Start 06/16/16 at 04:00; Stop 06/17/16 at 02:59 Ondansetron HCl/ Dexamethasone/ Diphenhydramine HCl/Dextrose (Zofran Inj/ Decadron/Benadryl/ D5W) 59.5 ml @ 120 mls/hr ONCE IV ; Start 06/16/16 at 02:00 ; Stop 06/16/16 at 02:30 Diphenhydramine HCl (Benadryl) 25 mg Q4H PRN IV ALLERGIC REACTION Last administered on 06/06/16at 20:26; Admin Dose 25 MG; Start 06/02/16 at 18:30 Dexamethasone 10 mg 10 mg Q4H PRN IV ALLERGIC REACTION; Start 06/02/16 at 18: 30 Leucovorin Calcium/Dextrose (Leucovorin Calcium Inj/D5W) 50 ml @ 50 mls/hr Q6H IV ; Start 06/17/16 at 15:00 Fluconazole 100 mg 100 mg DAILY PO Last administered on 06/08/16at 09:58; Admin Dose 100 MG; Start 06/03/16 at 09:00; Status Future Hold Ondansetron HCl 8 mg/Sodium Chloride 54 ml @ 216 mls/hr Q6H PRN IV NAUSEA AND/ OR VOMITING; Start 06/02/16 at 18:30 Sodium Bicarbonate/ Dextrose (Na Bicarb/D5W) 1,000 ml @ 125 mls/hr Q8H IV ; Start 06/17/16 at 03:00 Ondansetron HCl (Zofran Inj) 4 mg Q6H PRN IV NAUSEA AND/OR VOMITING; Start at 17:00 Acetaminophen (Tylenol Tab) 650 mg Q6H PRN PO PAIN LEVEL 1-3 OR FEVER Last administered on 06/10/16at 00:00; Admin Dose 650 MG; Start 06/03/16 at 17:00 Acetaminophen (Tylenol Supp) 650 mg Q6H PRN [place] PAIN LEVEL 1-3 OR FEVER Last administered on 06/09/16at 03:37; Admin Dose 650 MG; Start 06/03/16 at 17:00 Docusate Sodium (Colace) 100 mg Q12H PRN PO CONSTIPATION; Start 06/03/16 at 17 :00 Magnesium Hydroxide (Milk Of Mag) 30 ml DAILY PRN PO CONSTIPATION; Start 06/03 at 17:00 Bisacodyl (Dulcolax) 5 mg DAILY PRN PO CONSTIPATION; Start 06/03/16 at 17:00 Bisacodyl (Dulcolax Supp) 10 mg DAILY PRN [place] CONSTIPATION; Start 06/03/16 at 17:00 Sodium Biphosphate/ Sodium Phosphate (Fleet Enema) 133 ml DAILY PRN [place] CONSTIPATION; Start 06/03/16 at 17:00 Enoxaparin Sodium (Lovenox) 30 mg DAILY SC Last administered on 06/09/16at 12: 51; Admin Dose 30 MG; Start 06/04/16 at 09:00 Allopurinol (Zyloprim) 300 mg DAILY PO Last administered on 06/09/16at 12:16; Admin Dose 300 MG; Start 06/04/16 at 09:00 Eye Lubricant (Artificial Tears Oph) 2 drop QID BOTH EYES Last administered on 06/09/16at 22:06; Admin Dose 2 DROP; Start 06/03/16 at 21:00 Eye Lubricant (Akwa Oint) 1 applic DAILY BOTH EYES Last administered on at 11:45; Admin Dose 1 APPLIC; Start 06/04/16 at 09:00 Gabapentin (Neurontin) 200 mg TID PO Last administered on 06/09/16at 22:06; Admin Dose 200 MG; Start 06/03/16 at 21:00 Levothyroxine Sodium (Synthroid) 100 mcg DAILY@06 PO Last administered on 06/10at 05:44; Admin Dose 100 MCG; Start 06/04/16 at 06:00 Nystatin 5 ml 5 ml QID PO Last administered on 06/09/16at 22:05; Admin Dose 5 ML; Start 06/03/16 at 21:00 Vincristine Sulfate/Sodium Chloride (Oncovin/NS) 51 ml @ 102 mls/hr 05 IV ; Start 06/17/16 at 05:00; Stop 06/17/16 at 05:29 Mupirocin (Bactroban) 1 applic BID TOP Last administered on 06/09/16at 22:06; Admin Dose 1 APPLIC; Start 06/04/16 at 21:00 Pantoprazole (Protonix Iv) 40 mg DAILY@06 IV Last administered on 06/10/16at 05 :43; Admin Dose 40 MG; Start 06/09/16 at 06:00 Lorazepam 1 mg 1 mg Q6H PRN IV AGITATION/ANXIETY Last administered on at 18:38; Admin Dose 1 MG; Start 06/08/16 at 18:00 Fluconazole 100 ml @ 100 mls/hr Q24H IVPB Last administered on 06/10/16at 05: 43; Admin Dose 100 MLS/HR; Start 06/09/16 at 05:30 Imipenem/ Cilastatin Sodium 100 ml @ 100 mls/hr Q8 IVPB Last administered on 06/10/16at 05:44; Admin Dose 100 MLS/HR; Start 06/09/16 at 14:00 Filgrastim 480 mcg/Dextrose 51.6 ml @ 103.2 mls/ hr DAILY@17 IVPB Last administered on 06/09/16at 17:00; Admin Dose 103.2 MLS/HR; Start 06/09/16 at 17 :00 Vancomycin HCl 1.25 gm/Sodium Chloride 250 ml @ 83.333 mls/ hr Q12H IVPB Last administered on 06/09/16at 23:49; Admin Dose 83.333 MLS/HR; Start 06/09/16 at 21:00 Potassium Chloride (KCl 40 MEQ/250 ML NS) 250 ml @ 62.5 mls/hr ONCE ONCE IVPB ; Start 06/10/16 at 07:00; Stop 06/10/16 at 10:59 CHANDRIKA MERLOS M.D. Jun 10, 2016 09:34
[2016-06-10] MEDS: ARTIFICIAL TEARS 15 ML OPH BOTH EYES SCH ×4 (09:35→21:23)
[2016-06-10] MEDS: MUPIROCIN 2% 22 GM OINT TOP SCH ×2 (09:36→21:23)
[2016-06-10] MEDS: OCULAR LUBRICANT 3.5 GM OPH OINT BOTH EYES SCH (09:36)
[2016-06-10] MEDS: ACYCLOVIR 400 MG TAB PO SCH ×2 (09:37→21:23)
[2016-06-10] MEDS: ALLOPURINOL 300 MG TAB PO SCH (09:37)
[2016-06-10] MEDS: GABAPENTIN 100 MG CAP PO SCH ×3 (09:37→21:24)
[2016-06-10 09:40] LABS: LYMPHOCYTES # 0.2 10^3/ul (0.8-2.9)
[2016-06-10 09:41] LABS: ANISOCYTOSIS 1+; PLATELET ESTIMATE PLT APPEAR DECREASED
[2016-06-10] MEDS: ENOXAPARIN 30 MG/0.3 ML SYG SC SCH (09:46)
[2016-06-10] MEDS: VANCOMYCIN 1.25 GM in SOD CHLORIDE 0.9% 250 ML IVPB SCH ×2 (09:50→22:23)
--- NOTE | 2016-06-10 12:29 | PN ---
Date/Time of Note Date/Time of Note DATE: 06/10/16 TIME: 12:26 Assessment/Plan VTE Prophylaxis VTE Prophylaxis Intervention: other Lines/Catheters IV Catheter Type (from Nrs): PICC Line Central line still needed: Yes Urinary Cath still in place: No Assessment/Plan Chief Complaint/Hosp Course IMPRESSION: The patient has Burkitt's lymphoma status post tracheostomy, status post thyroid mass, status post pancytopenia, abnormal liver function test. 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 PLAN PER DR MERLOS ANTIBIOTIC IV FLUID ID CONSULT KCL Problems: Subjective 24 Hr Interval Summary Respiratory: No shortness of breath Cardiovascular: no complaints Gastrointestinal: no complaints Exam/Review of Systems Vital Signs Vitals Vital Signs Date Time Temp Pulse Resp B/P Pulse Ox O2 Delivery O2 Flow Rate FiO2 06/10/16 12:00 113 24 120/65 99 06/10/16 08:00 97.6 Trach Collar 5.0 06/10/16 05:54 28 Intake and Output 06/09/16 06/09/16 06/10/16 15:00 23:00 07:00 Intake Total 1420 ml 603.6 ml 1233.2 ml Output Total 1050 ml 350 ml Balance 370 ml 253.6 ml 1233.2 ml Exam Neck: supple Cardiovascular: regular rate and rhythm Gastrointestinal: bowel sounds (+), soft Extremities: normal pulses Results Result Diagram: 06/10/1642906/10/16 0430 Results 24 hrs Laboratory Tests Test 06/10/16 04:30 Alanine Aminotransferase (ALT/SGPT) 49 Albumin 2.4 L Albumin/Globulin Ratio 0.88 Alkaline Phosphatase 86 Anion Gap 10 Anisocytosis 1+ Aspartate Amino Transf (AST/SGOT) 20 Basophils # 0.0 Basophils % 1.0 Blood Morphology Comment Blood Urea Nitrogen 3 L Calcium Level 7.7 L Carbon Dioxide Level 25 Chloride Level 110 Creatinine 0.31 L Differential Comment Direct Bilirubin 0.00 Eosinophils # 0.0 Eosinophils % 5.0 Globulin 2.70 Glucose Level 87 Hematocrit 20.7 #L Hemoglobin 7.2 #L Indirect Bilirubin 0.3 Lactate Dehydrogenase 700 H Lymphocytes # 0.2 L Lymphocytes % 80.0 H Mean Corpuscular Hemoglobin 29.3 Mean Corpuscular Hemoglobin Concent 34.8 Mean Corpuscular Volume 84.3 Mean Platelet Volume 6.9 L Monocytes # 0.0 L Monocytes % 8.0 Neutrophils # 0.0 L Neutrophils % 6.0 L Platelet Count 66 #L Platelet Estimate PLT APPEAR DECREASED Potassium Level 2.9 *L Red Blood Count 2.46 #L Red Cell Distribution Width 17.3 H Sodium Level 142 Total Bilirubin 0.3 Total Protein 5.1 L Uric Acid 1.5 L White Blood Count 0.3 L Medications Medications Current Medications Sodium Chloride (NS) 1,000 ml @ 100 mls/hr Q10H IV Last administered on at 09:34; Admin Dose 100 MLS/HR; Start 06/02/16 at 14:30 Acyclovir 400 mg 400 mg BID PO Last administered on 06/10/16at 09:37; Admin Dose 400 MG; Start 06/02/16 at 14:30 Methotrexate 175 mg/Sodium Chloride 250 ml @ 250 mls/hr ONCE IV ; Start at 03:00; Stop 06/16/16 at 03:59 Methotrexate 1590 mg/Sodium Chloride 1,000 ml @ 43.478 mls/ hr Q23H IV ; Start 06/16/16 at 04:00; Stop 06/17/16 at 02:59 Ondansetron HCl/ Dexamethasone/ Diphenhydramine HCl/Dextrose (Zofran Inj/ Decadron/Benadryl/ D5W) 59.5 ml @ 120 mls/hr ONCE IV ; Start 06/16/16 at 02:00 ; Stop 06/16/16 at 02:30 Diphenhydramine HCl (Benadryl) 25 mg Q4H PRN IV ALLERGIC REACTION Last administered on 06/06/16at 20:26; Admin Dose 25 MG; Start 06/02/16 at 18:30 Dexamethasone 10 mg 10 mg Q4H PRN IV ALLERGIC REACTION; Start 06/02/16 at 18: 30 Leucovorin Calcium/Dextrose (Leucovorin Calcium Inj/D5W) 50 ml @ 50 mls/hr Q6H IV ; Start 06/17/16 at 15:00 Fluconazole 100 mg 100 mg DAILY PO Last administered on 06/08/16at 09:58; Admin Dose 100 MG; Start 06/03/16 at 09:00; Status Future Hold Ondansetron HCl 8 mg/Sodium Chloride 54 ml @ 216 mls/hr Q6H PRN IV NAUSEA AND/ OR VOMITING; Start 06/02/16 at 18:30 Sodium Bicarbonate/ Dextrose (Na Bicarb/D5W) 1,000 ml @ 125 mls/hr Q8H IV ; Start 06/17/16 at 03:00 Ondansetron HCl (Zofran Inj) 4 mg Q6H PRN IV NAUSEA AND/OR VOMITING; Start at 17:00 Acetaminophen (Tylenol Tab) 650 mg Q6H PRN PO PAIN LEVEL 1-3 OR FEVER Last administered on 06/10/16at 00:00; Admin Dose 650 MG; Start 06/03/16 at 17:00 Acetaminophen (Tylenol Supp) 650 mg Q6H PRN [place] PAIN LEVEL 1-3 OR FEVER Last administered on 06/09/16at 03:37; Admin Dose 650 MG; Start 06/03/16 at 17:00 Docusate Sodium (Colace) 100 mg Q12H PRN PO CONSTIPATION; Start 06/03/16 at 17 :00 Magnesium Hydroxide (Milk Of Mag) 30 ml DAILY PRN PO CONSTIPATION; Start 06/03 at 17:00 Bisacodyl (Dulcolax) 5 mg DAILY PRN PO CONSTIPATION; Start 06/03/16 at 17:00 Bisacodyl (Dulcolax Supp) 10 mg DAILY PRN [place] CONSTIPATION; Start 06/03/16 at 17:00 Sodium Biphosphate/ Sodium Phosphate (Fleet Enema) 133 ml DAILY PRN [place] CONSTIPATION; Start 06/03/16 at 17:00 Enoxaparin Sodium (Lovenox) 30 mg DAILY SC Last administered on 06/10/16at 09: 46; Admin Dose 30 MG; Start 06/04/16 at 09:00 Allopurinol (Zyloprim) 300 mg DAILY PO Last administered on 06/10/16at 09:37; Admin Dose 300 MG; Start 06/04/16 at 09:00 Eye Lubricant (Artificial Tears Oph) 2 drop QID BOTH EYES Last administered on 06/10/16at 09:35; Admin Dose 2 DROP; Start 06/03/16 at 21:00 Eye Lubricant (Akwa Oint) 1 applic DAILY BOTH EYES Last administered on at 09:36; Admin Dose 1 APPLIC; Start 06/04/16 at 09:00 Gabapentin (Neurontin) 200 mg TID PO Last administered on 06/10/16 09:37; Admin Dose 200 MG; Start 06/03/16 at 21:00 Levothyroxine Sodium (Synthroid) 100 mcg DAILY@06 PO Last administered on 06/10 05:44; Admin Dose 100 MCG; Start 06/04/16 at 06:00 Nystatin 5 ml 5 ml QID PO Last administered on 06/09/16 22:05; Admin Dose 5 ML; Start 06/03/16 at 21:00 Vincristine Sulfate/Sodium Chloride (Oncovin/NS) 51 ml @ 102 mls/hr 05 IV ; Start 06/17/16 at 05:00; Stop 06/17/16 at 05:29 Mupirocin (Bactroban) 1 applic BID TOP Last administered on 06/10/16 09:36; Admin Dose 1 APPLIC; Start 06/04/16 at 21:00 Pantoprazole (Protonix Iv) 40 mg DAILY@06 IV Last administered on 06/10/16 05 :43; Admin Dose 40 MG; Start 06/09/16 at 06:00 Lorazepam 1 mg 1 mg Q6H PRN IV AGITATION/ANXIETY Last administered on at 18:38; Admin Dose 1 MG; Start 06/08/16 at 18:00 Fluconazole 100 ml @ 100 mls/hr Q24H IVPB Last administered on 06/10/16 05: 43; Admin Dose 100 MLS/HR; Start 06/09/16 at 05:30 Imipenem/ Cilastatin Sodium 100 ml @ 100 mls/hr Q8 IVPB Last administered on 06/10/16 05:44; Admin Dose 100 MLS/HR; Start 06/09/16 at 14:00 Filgrastim 480 mcg/Dextrose 51.6 ml @ 103.2 mls/ hr DAILY@17 IVPB Last administered on 06/09/16 17:00; Admin Dose 103.2 MLS/HR; Start 06/09/16 at 17 :00 Vancomycin HCl/ Sodium Chloride (Vancocin/NS) 250 ml @ 83.333 mls/ hr Q12H IVPB Last administered on 06/10/16 09:50; Admin Dose 83.333 MLS/HR; Start at 21:00 GUERLINE SULLIVAN MD Jun 10, 2016 12:28
[2016-06-10] MEDS: NYSTATIN SUSP 5 ML CUP PO SCH ×4 (13:00→21:23)
--- NOTE | 2016-06-10 15:19 | PN ---
DATE: 06/10/2016 SUBJECTIVE: This is an infectious disease progress note. No acute events overnight. Patient is al ert, feels good, looks comfortable. Denies pain, discomfort. T-max last night was 101.2, T-current 97.6, pulse 113, respirations 20, blood pressure 120/65, saturation 99% on trach mask. WBC 0.3, H and H 7.2 and 20.7, platelets 66. BUN 3, creatinine 0.31. MICROBIOLOGY: Blood cultures from 06/08/2016 grew coagulase-negative staph species. Repeat blood c ultures pending. Nares swab positive for MRSA. INDWELLINGS: Trach and left upper extremity PICC line. ANTIMICROBIALS: 1. Vancomycin. 2. Imipenem. 3. Topical Bactroban to nares. 4. Fluconazole. 5. Acyclovir. PHYSICAL EXAMINATION: GENERAL: This is a well-developed, ill-appearing, middle-aged [place] woman who is alert, in no dis tress. HEENT: Head atraumatic, normocephalic. Sclerae anicteric. Buccal mucosa pink. NECK: Supple. Tracheostomy present. CHEST: Rise symmetrical. Breath sounds diminished to bases. HEART: S1, S2. ABDOMEN: Soft, bowel tones present. EXTREMITIES: Without cyanosis. ASSESSMENT: 1. Sepsis with high fevers likely secondary to neutropenia. 2. Coagulase-negative Staphylococcus bacteremia, possibly contaminant versus secondary to lyme. 3. Methicillin-resistant Staphylococcus aureus nares colonization. 4. Possible aspiration pneumonia. 5. Stage IIA Burkitt's lymphoma, getting chemotherapy. The next cycle on Thursday. 6. Respiratory failure, status post tracheostomy secondary to a neck mass causing tracheal compress ion and airway compromise, remains on trach collar. 7. Dysphagia. PLAN: The patient remains stable pending repeat cultures. She is on appropriate antimicrobials. W e will continue observing blood cultures. Repeated come back positive. We will discontinue PICC li ne and give her a line holiday prior to putting in a new line. The above was discussed with patient , Dr. Curran and ____. Dictated By: RODRÍGUEZ ERAZO SOFTWARE ENGINEER DEVELOPER for JILLIAN CUEVAS/YUNI Conf#: [id number] DID#: [id number]
[2016-06-10] MEDS: DEXTROSE 5% IVPB SCH (17:45)
[2016-06-10] MEDS: FILGRASTIM IVPB SCH (17:45)
[2016-06-10] MEDS: ACETAMINOPHEN 325 MG TAB PO PRN ×2 (19:00)
[2016-06-11] MEDS: ALBUTEROL/IPRATROPIUM (NEB) 3 ML AMP HHN SCH ×6 (01:24→20:28)
[2016-06-11] MEDS: ACETAMINOPHEN 325 MG TAB PO PRN ×2 (03:11→21:50)
[2016-06-11] MEDS: FLUCONAZOLE 200 MG/NS (PMX) 100 ML IVPB SCH (06:44)
[2016-06-11] MEDS: LEVOTHYROXINE 100 MCG TAB PO SCH (06:55)
[2016-06-11] MEDS: PANTOPRAZOLE 40 MG INJ IV SCH (06:55)
[2016-06-11 08:10] VITALS: BP 119/57; PULSE 88; RESP 16
[2016-06-11] MEDS: ARTIFICIAL TEARS 15 ML OPH BOTH EYES SCH ×4 (08:16→22:01)
[2016-06-11] MEDS: MUPIROCIN 2% 22 GM OINT TOP SCH ×2 (08:16→22:01)
[2016-06-11] MEDS: ACYCLOVIR 400 MG TAB PO SCH ×2 (08:16→22:56)
[2016-06-11] MEDS: IMIPENEM-CILAST 500MG IV (PMX) 100 ML IVPB SCH ×3 (08:16→22:57)
[2016-06-11] MEDS: ALLOPURINOL 300 MG TAB PO SCH (08:17)
[2016-06-11] MEDS: GABAPENTIN 100 MG CAP PO SCH ×3 (08:17→21:49)
[2016-06-11] MEDS: OCULAR LUBRICANT 3.5 GM OPH OINT BOTH EYES SCH (08:17)
[2016-06-11] MEDS: NYSTATIN SUSP 5 ML CUP PO SCH ×4 (08:17→21:50)
[2016-06-11] MEDS: SOD CHLORIDE 0.9% 1,000 ML IV SCH ×2 (08:28→18:30)
[2016-06-11] MEDS: ENOXAPARIN 30 MG/0.3 ML SYG SC SCH (08:36)
[2016-06-11] MEDS ORDERED: COLLAGENASE 30 GM TUBE TOP ONE (09:00)
[2016-06-11] MEDS: VANCOMYCIN 1.25 GM in SOD CHLORIDE 0.9% 250 ML IVPB SCH ×2 (10:09→21:49)
--- NOTE | 2016-06-11 12:07 | CONS ---
Date/Time of Note Date/Time of Note DATE: 06/11/16 TIME: 12:05 Consult Date/Type/Reason Admit Date/Time Jun 02, 2016 at 15:10 Initial Consult Date 06/02/16 Type of Consultation: ID Ordering Provider: TLELY SOLANO MD Subjective alert, c/o no appetite, no n/v/d, feels good, looks comfortable Objective Vital Signs Date Time Temp Pulse Resp B/P Pulse Ox O2 Delivery O2 Flow Rate FiO2 06/11/16 09:52 83 20 99 Aerosol 5.0 28 Aerosol Mask 06/11/16 08:10 97.8 119/57 Intake and Output 06/10/16 06/10/16 06/11/16 15:00 23:00 07:00 Intake Total 120 ml 1811.6 ml 1010 ml Output Total 400 ml 300 ml 600 ml Balance -280 ml 1511.6 ml 410 ml Results/Medications Result Diagram: 06/10/16 0430 06/10/16 0430 Medications Current Medications Sodium Chloride (NS) 1,000 ml @ 100 mls/hr Q10H IV Last administered on at 22:28; Admin Dose 100 MLS/HR; Start 06/02/16 at 14:30 Acyclovir 400 mg 400 mg BID PO Last administered on 06/11/16at 08:16; Admin Dose 400 MG; Start 06/02/16 at 14:30 Methotrexate 175 mg/Sodium Chloride 250 ml @ 250 mls/hr ONCE IV ; Start at 03:00; Stop 06/16/16 at 03:59 Methotrexate 1590 mg/Sodium Chloride 1,000 ml @ 43.478 mls/ hr Q23H IV ; Start 06/16/16 at 04:00; Stop 06/17/16 at 02:59 Ondansetron HCl/ Dexamethasone/ Diphenhydramine HCl/Dextrose (Zofran Inj/ Decadron/Benadryl/ D5W) 59.5 ml @ 120 mls/hr ONCE IV ; Start 06/16/16 at 02:00 ; Stop 06/16/16 at 02:30 Diphenhydramine HCl (Benadryl) 25 mg Q4H PRN IV ALLERGIC REACTION Last administered on 06/06/16at 20:26; Admin Dose 25 MG; Start 06/02/16 at 18:30 Dexamethasone 10 mg 10 mg Q4H PRN IV ALLERGIC REACTION; Start 06/02/16 at 18: 30 Leucovorin Calcium/Dextrose (Leucovorin Calcium Inj/D5W) 50 ml @ 50 mls/hr Q6H IV ; Start 06/17/16 at 15:00 Fluconazole 100 mg 100 mg DAILY PO Last administered on 06/08/16at 09:58; Admin Dose 100 MG; Start 06/03/16 at 09:00; Status Future Hold Ondansetron HCl/ Sodium Chloride (Zofran Inj/NS) 54 ml @ 216 mls/hr Q6H PRN IV NAUSEA AND/OR VOMITING; Start 06/02/16 at 18:30 Ondansetron HCl (Zofran Inj) 4 mg Q6H PRN IV NAUSEA AND/OR VOMITING; Start at 17:00 Acetaminophen (Tylenol Tab) 650 mg Q6H PRN PO PAIN LEVEL 1-3 OR FEVER Last administered on 06/11/16at 03:11; Admin Dose 650 MG; Start 06/03/16 at 17:00 Acetaminophen (Tylenol Supp) 650 mg Q6H PRN [place] PAIN LEVEL 1-3 OR FEVER Last administered on 06/09/16at 03:37; Admin Dose 650 MG; Start 06/03/16 at 17:00 Docusate Sodium (Colace) 100 mg Q12H PRN PO CONSTIPATION; Start 06/03/16 at 17 :00 Magnesium Hydroxide (Milk Of Mag) 30 ml DAILY PRN PO CONSTIPATION; Start 06/03 at 17:00 Bisacodyl (Dulcolax) 5 mg DAILY PRN PO CONSTIPATION; Start 06/03/16 at 17:00 Bisacodyl (Dulcolax Supp) 10 mg DAILY PRN [place] CONSTIPATION; Start 06/03/16 at 17:00 Sodium Biphosphate/ Sodium Phosphate (Fleet Enema) 133 ml DAILY PRN [place] CONSTIPATION; Start 06/03/16 at 17:00 Enoxaparin Sodium (Lovenox) 30 mg DAILY SC Last administered on 06/11/16at 08: 36; Admin Dose 30 MG; Start 06/04/16 at 09:00 Allopurinol (Zyloprim) 300 mg DAILY PO Last administered on 06/11/16at 08:17; Admin Dose 300 MG; Start 06/04/16 at 09:00 Eye Lubricant (Artificial Tears Oph) 2 drop QID BOTH EYES Last administered on 06/11/16at 08:16; Admin Dose 2 DROP; Start 06/03/16 at 21:00 Eye Lubricant (Akwa Oint) 1 applic DAILY BOTH EYES Last administered on at 08:17; Admin Dose 1 APPLIC; Start 06/04/16 at 09:00 Gabapentin (Neurontin) 200 mg TID PO Last administered on 06/11/16at 08:17; Admin Dose 200 MG; Start 06/03/16 at 21:00 Levothyroxine Sodium (Synthroid) 100 mcg DAILY@06 PO Last administered on 06/11at 06:55; Admin Dose 100 MCG; Start 06/04/16 at 06:00 Nystatin 5 ml 5 ml QID PO Last administered on 06/11/16at 08:17; Admin Dose 5 ML; Start 06/03/16 at 21:00 Vincristine Sulfate/Sodium Chloride (Oncovin/NS) 51 ml @ 102 mls/hr 05 IV ; Start 06/17/16 at 05:00; Stop 06/17/16 at 05:29 Mupirocin (Bactroban) 1 applic BID TOP Last administered on 06/11/16at 08:16; Admin Dose 1 APPLIC; Start 06/04/16 at 21:00 Pantoprazole (Protonix Iv) 40 mg DAILY@06 IV Last administered on 06/11/16at 06 :55; Admin Dose 40 MG; Start 06/09/16 at 06:00 Lorazepam 1 mg 1 mg Q6H PRN IV AGITATION/ANXIETY Last administered on at 18:38; Admin Dose 1 MG; Start 06/08/16 at 18:00 Fluconazole 100 ml @ 100 mls/hr Q24H IVPB Last administered on 06/11/16at 06: 44; Admin Dose 100 MLS/HR; Start 06/09/16 at 05:30 Imipenem/ Cilastatin Sodium 100 ml @ 100 mls/hr Q8 IVPB Last administered on 06/11/16at 08:16; Admin Dose 100 MLS/HR; Start 06/09/16 at 14:00 Filgrastim 480 mcg/Dextrose 51.6 ml @ 103.2 mls/ hr DAILY@17 IVPB Last administered on 06/10/16at 17:45; Admin Dose 103.2 MLS/HR; Start 06/09/16 at 17 :00 Vancomycin HCl/ Sodium Chloride (Vancocin/NS) 250 ml @ 83.333 mls/ hr Q12H IVPB Last administered on 06/11/16at 10:09; Admin Dose 83.333 MLS/HR; Start at 21:00 Assessment/Plan Chief Complaint/Hosp Course MICROBIOLOGY: Blood cultures from 06/08/2016 grew coagulase-negative staph species. Repeat blood cultures negative. Nares swab positive for MRSA. INDWELLINGS: Trach and left upper extremity PICC line. ANTIMICROBIALS: 1. Vancomycin. 2. Imipenem. 3. Topical Bactroban to nares. 4. Fluconazole. 5. Acyclovir. PHYSICAL EXAMINATION: GENERAL: This is a well-developed, ill-appearing, middle-aged [place] woman who is alert, in no distress. HEENT: Head atraumatic, normocephalic. Sclerae anicteric. Buccal mucosa pink. NECK: Supple. Tracheostomy present. CHEST: Rise symmetrical. Breath sounds diminished to bases. HEART: S1, S2. ABDOMEN: Soft, bowel tones present. EXTREMITIES: Without cyanosis. ASSESSMENT: 1. Sepsis with high fevers likely secondary to neutropenia. 2. Coagulase-negative Staphylococcus bacteremia, likely contaminant. 3. Methicillin-resistant Staphylococcus aureus nares colonization. 4. Possible aspiration pneumonia. 5. Stage IIA Burkitt's lymphoma, getting chemotherapy. The next cycle on Thursday. 6. Respiratory failure, status post tracheostomy secondary to a neck mass causing tracheal compression and airway compromise, remains on trach collar. 7. Dysphagia. PLAN: The patient remains stable, repeat bld cultures negative. She is on appropriate antimicrobials. Plan for chemo next week DW pt/staff Problems: RODRÍGUEZ ERAZO NP Jun 11, 2016 12:07
--- NOTE | 2016-06-11 12:43 | CONS ---
Date/Time of Note Date/Time of Note DATE: 06/11/16 TIME: 12:41 Assessment/Plan Assessment/Plan Chief Complaint/Hosp Course 56 yo female with massive neck mass causing tracheal compression and airway compromise s/p tracheostomy placement. 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 Pt was given cycle 1A and 1B of R HyperCVAD but had only a partial response to therapy and severe side effects. We have thus changed her chemotherapy regimen. She is now being admitted for cycle 1 of R-CODOX-M. Problems: Additional Assessment/Plan # Burkitt's lymphoma -continue with cycle 1 R CODOX -M. today is day 8 -Rituximab (Rituxan) as follows: * Cycle 1: 375 mg/m2 (660mg) IV on Day 1 -Cyclophosphamide (Cytoxan) 800 mg/m2 ( 1415mg) IV once per day on days 1 & 2 -Vincristine (Oncovin) 1.0 mg (dose reduced for neuropathy) days 1 & 15 . next dose due on 06/17 -Doxorubicin (Adriamycin) 50 mg/m2 (88mg) IV once on day 1 -Methotrexate (MTX) 100mg/m2 (175mg) IV over 1 hour then 900mg/m2 (1590mg) over 23 hours on day 15. will start Na HCo3 prior to MTX infusion and only start MTX once Urine Ph > 7.0. Leucovorin 25mg IV q 4 hours will start 36 hours after MTX starts until MTX level is < 0.05. next dose due on 06/16 # Neutropenic fever -pt is now afebrile -cont Neupogen 480mcg q day -continue antibiotics. will consult Dr. 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 all steroids should be discontinued for now unless they are part of the chemotherapy regimen -continue to work with physical therapy. 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 -uric acid level ok, 1.9 today -will continue to monitor LDH Approximately 40 min were spent at patient;s bedside and in coordination of her care Consultation Date/Type/Reason Admit Date/Time Jun 02, 2016 at 15:10 Initial Consult Date 06/02/16 Type of Consultation: Hematology Reason for Consultation Burkitt's Lymphoma Referring Provider: TELLY SOLANO MD 24 HR Interval Summary Free Text/Dictation no acute overnight events. pt remains afebrile. Hg did drop. no signs of bleeding Exam/Review of Systems Vital Signs Vitals Vital Signs Date Time Temp Pulse Resp B/P Pulse Ox O2 Delivery O2 Flow Rate FiO2 06/11/16 09:52 83 20 99 Aerosol 5.0 28 Aerosol Mask 06/11/16 08:10 97.8 119/57 Intake and Output 06/10/16 06/10/16 06/11/16 15:00 23:00 07:00 Intake Total 120 ml 1811.6 ml 1010 ml Output Total 400 ml 300 ml 600 ml Balance -280 ml 1511.6 ml 410 ml Exam Constitutional: alert, oriented Psych: no complaints Head: atraumatic, normocephalic Eyes: nl conjunctiva ENMT: nl external ears & nose Neck: non-tender, supple Respiratory: other (trach in place) Cardiovascular: nl pulses, regular rate and rhythm Gastrointestinal: soft Musculoskeletal: nl extremities to inspection, nl gait and stance Results Result Diagram: 06/10/16 04306/10/16 043 Medications Medications Current Medications Sodium Chloride (NS) 1,000 ml @ 100 mls/hr Q10H IV Last administered on at 22:28; Admin Dose 100 MLS/HR; Start 06/02/16 at 14:30 Acyclovir 400 mg 400 mg BID PO Last administered on 06/11/16at 08:16; Admin Dose 400 MG; Start 06/02/16 at 14:30 Methotrexate 175 mg/Sodium Chloride 250 ml @ 250 mls/hr ONCE IV ; Start at 03:00; Stop 06/16/16 at 03:59 Methotrexate 1590 mg/Sodium Chloride 1,000 ml @ 43.478 mls/ hr Q23H IV ; Start 06/16/16 at 04:00; Stop 06/17/16 at 02:59 Ondansetron HCl/ Dexamethasone/ Diphenhydramine HCl/Dextrose (Zofran Inj/ Decadron/Benadryl/ D5W) 59.5 ml @ 120 mls/hr ONCE IV ; Start 06/16/16 at 02:00 ; Stop 06/16/16 at 02:30 Diphenhydramine HCl (Benadryl) 25 mg Q4H PRN IV ALLERGIC REACTION Last administered on 06/06/16at 20:26; Admin Dose 25 MG; Start 06/02/16 at 18:30 Dexamethasone 10 mg 10 mg Q4H PRN IV ALLERGIC REACTION; Start 06/02/16 at 18: 30 Leucovorin Calcium/Dextrose (Leucovorin Calcium Inj/D5W) 50 ml @ 50 mls/hr Q6H IV ; Start 06/17/16 at 15:00 Fluconazole 100 mg 100 mg DAILY PO Last administered on 06/08/16at 09:58; Admin Dose 100 MG; Start 06/03/16 at 09:00; Status Future Hold Ondansetron HCl/ Sodium Chloride (Zofran Inj/NS) 54 ml @ 216 mls/hr Q6H PRN IV NAUSEA AND/OR VOMITING; Start 06/02/16 at 18:30 Ondansetron HCl (Zofran Inj) 4 mg Q6H PRN IV NAUSEA AND/OR VOMITING; Start at 17:00 Acetaminophen (Tylenol Tab) 650 mg Q6H PRN PO PAIN LEVEL 1-3 OR FEVER Last administered on 06/11/16at 03:11; Admin Dose 650 MG; Start 06/03/16 at 17:00 Acetaminophen (Tylenol Supp) 650 mg Q6H PRN [place] PAIN LEVEL 1-3 OR FEVER Last administered on 06/09/16at 03:37; Admin Dose 650 MG; Start 06/03/16 at 17:00 Docusate Sodium (Colace) 100 mg Q12H PRN PO CONSTIPATION; Start 06/03/16 at 17 :00 Magnesium Hydroxide (Milk Of Mag) 30 ml DAILY PRN PO CONSTIPATION; Start 06/03 at 17:00 Bisacodyl (Dulcolax) 5 mg DAILY PRN PO CONSTIPATION; Start 06/03/16 at 17:00 Bisacodyl (Dulcolax Supp) 10 mg DAILY PRN [place] CONSTIPATION; Start 06/03/16 at 17:00 Sodium Biphosphate/ Sodium Phosphate (Fleet Enema) 133 ml DAILY PRN AL CONSTIPATION; Start 06/03/16 at 17:00 Enoxaparin Sodium (Lovenox) 30 mg DAILY SC Last administered on 06/11/16at 08: 36; Admin Dose 30 MG; Start 06/04/16 at 09:00 Allopurinol (Zyloprim) 300 mg DAILY PO Last administered on 06/11/16 08:17; Admin Dose 300 MG; Start 06/04/16 at 09:00 Eye Lubricant (Artificial Tears Oph) 2 drop QID BOTH EYES Last administered on 06/11/16 08:16; Admin Dose 2 DROP; Start 06/03/16 at 21:00 Eye Lubricant (Akwa Oint) 1 applic DAILY BOTH EYES Last administered on 08:17; Admin Dose 1 APPLIC; Start 06/04/16 at 09:00 Gabapentin (Neurontin) 200 mg TID PO Last administered on 06/11/16 08:17; Admin Dose 200 MG; Start 06/03/16 at 21:00 Levothyroxine Sodium (Synthroid) 100 mcg DAILY@06 PO Last administered on 06/11at 06:55; Admin Dose 100 MCG; Start 06/04/16 at 06:00 Nystatin 5 ml 5 ml QID PO Last administered on 06/11/16 08:17; Admin Dose 5 ML; Start 06/03/16 at 21:00 Vincristine Sulfate/Sodium Chloride (Oncovin/NS) 51 ml @ 102 mls/hr 05 IV ; Start 06/17/16 at 05:00; Stop 06/17/16 at 05:29 Mupirocin (Bactroban) 1 applic BID TOP Last administered on 06/11/16at 08:16; Admin Dose 1 APPLIC; Start 06/04/16 at 21:00 Pantoprazole (Protonix Iv) 40 mg DAILY@06 IV Last administered on 06/11/16at 06 :55; Admin Dose 40 MG; Start 06/09/16 at 06:00 Lorazepam 1 mg 1 mg Q6H PRN IV AGITATION/ANXIETY Last administered on at 18:38; Admin Dose 1 MG; Start 06/08/16 at 18:00 Fluconazole 100 ml @ 100 mls/hr Q24H IVPB Last administered on 06/11/16at 06: 44; Admin Dose 100 MLS/HR; Start 06/09/16 at 05:30 Imipenem/ Cilastatin Sodium 100 ml @ 100 mls/hr Q8 IVPB Last administered on 06/11/16at 08:16; Admin Dose 100 MLS/HR; Start 06/09/16 at 14:00 Filgrastim 480 mcg/Dextrose 51.6 ml @ 103.2 mls/ hr DAILY@17 IVPB Last administered on 06/10/16at 17:45; Admin Dose 103.2 MLS/HR; Start 06/09/16 at 17 :00 Vancomycin HCl/ Sodium Chloride (Vancocin/NS) 250 ml @ 83.333 mls/ hr Q12H IVPB Last administered on 06/11/16at 10:09; Admin Dose 83.333 MLS/HR; Start at 21:00 CHANDRIKA MERLOS M.D. Jun 11, 2016 12:43
[2016-06-11 13:44] LABS: ALBUMIN 2.7 g/dl (3.3-4.9); HEMATOCRIT 24.7 % (37.0-47.0); HEMOGLOBIN 8.6 g/dl (12.0-16.0); MEAN CORPUSCULAR HGB CONC 34.6 g/dl (32.0-37.0); MEAN CORPUSCULAR VOLUME 83.9 fl (82.0-101.0); MEAN PLATELET VOLUME 8.2 fl (7.4-10.4); PLATELET COUNT 44 10^3/UL (140-440); RED BLOOD COUNT 2.94 10^6/ul (4.20-5.40); RED CELL DISTRIBUTION WIDTH 16.1 % (11.5-14.5); UNCORRECTED WBC 0.9 10^3/ul (4.8-10.8); WHITE BLOOD COUNT 0.9 10^3/ul (4.8-10.8)
[2016-06-11 13:47] LABS: BILIRUBIN,INDIRECT 0.5 mg/dl (0-1.1); BILIRUBIN,TOTAL 0.5 mg/dl (0.2-1.3); CREATININE 0.28 mg/dl (0.44-1.00); TOTAL PROTEIN 5.4 g/dl (6.1-8.1)
[2016-06-11 13:48] LABS: URIC ACID 1.4 mg/dl (3.1-7.9)
[2016-06-11 13:54] LABS: CONDITION 1; LH ANALYZER COMMENTS 1; SUSPECT 1
[2016-06-11 16:00] LABS: LYMPHOCYTES # 0.3 10^3/ul (0.8-2.9); MONOCYTE # 0.1 10^3/ul (0.3-0.9); MYELOCYTES # 0.1; NEUTROPHIL # 0.3 10^3/ul (1.6-7.5)
[2016-06-11 16:02] LABS: ANISOCYTOSIS 1+; POLYCHROMASIA 1+
[2016-06-11 16:03] LABS: PLATELET ESTIMATE PLT APPEAR DECREASED; POIKILOCYTOSIS 1+
--- NOTE | 2016-06-11 17:13 | PN ---
Date/Time of Note Date/Time of Note DATE: 06/11/16 TIME: 17:13 Assessment/Plan VTE Prophylaxis VTE Prophylaxis Intervention: other Lines/Catheters IV [facility] Type (from [facility]): PICC Line Central line still needed: Yes Urinary Cath still in place: No Assessment/Plan Chief Complaint/Hosp Course IMPRESSION: The patient has Burkitt's lymphoma status post tracheostomy, status post thyroid mass, status post pancytopenia, abnormal liver function test. The patient has anemia.NEUTROPENIA S/P CHEMO, S/P HOME COMPANION SEPSIS HYPOKALEMIA PLAN PER DR MERLOS ANTIBIOTIC IV FLUID ID CONSULT KCL Problems: Subjective 24 Hr Interval Summary Cardiovascular: no complaints Gastrointestinal: no complaints Genitourinary: no complaints Exam/Review of Systems Vital Signs Vitals Vital Signs Date Time Temp Pulse Resp B/P Pulse Ox O2 Delivery O2 Flow Rate FiO2 06/11/16 16:35 95 20 99 Aerosol 5.0 28 06/11/16 08:10 97.8 119/57 Intake and Output 06/10/16 06/10/16 06/11/16 15:00 23:00 07:00 Intake Total 120 ml 1811.6 ml 1010 ml Output Total 400 ml 300 ml 600 ml Balance -280 ml 1511.6 ml 410 ml Exam Respiratory: clear to auscultation Cardiovascular: regular rate and rhythm Gastrointestinal: soft Musculoskeletal: nl extremities to inspection Results Result Diagram: 06/11/16 1320 06/11/16 1320 Results 24 hrs Laboratory Tests Test 06/11/16 13:20 Alanine Aminotransferase (ALT/SGPT) 47 Albumin 2.7 L Albumin/Globulin Ratio 1.00 Alkaline Phosphatase 97 Anion Gap 9 Anisocytosis 1+ Aspartate Amino Transf (AST/SGOT) 20 Band Neutrophils % 8.0 H Basophils # 0.0 Basophils % 2.0 Blood Morphology Comment Blood Urea Nitrogen 3 L Calcium Level 8.0 L Carbon Dioxide Level 27 Chloride Level 106 Creatinine 0.28 L Direct Bilirubin 0.00 Eosinophils # 0.0 Eosinophils % 2.0 Giant Platelets FEW Globulin 2.70 Glucose Level 108 Hematocrit 24.7 L Hemoglobin 8.6 L Indirect Bilirubin 0.5 Lactate Dehydrogenase 920 H Lymphocytes # 0.3 L Lymphocytes % 35.0 Mean Corpuscular Hemoglobin 29.0 Mean Corpuscular Hemoglobin Concent 34.6 Mean Corpuscular Volume 83.9 Mean Platelet Volume 8.2 Metamyelocytes # 0.0 Metamyelocytes % 2.0 H Monocytes # 0.1 L Monocytes % 6.0 Myelocytes # 0.1 Myelocytes % 15.0 H Neutrophils # 0.3 L Neutrophils % 30.0 L Nucleated Red Blood Cells % 5.0 H Platelet Count 44 #L Platelet Estimate PLT APPEAR DECREASED Polychromasia 1+ Potassium Level 3.0 L Red Blood Count 2.94 L Red Cell Distribution Width 16.1 H Sodium Level 139 Total Bilirubin 0.5 Total Protein 5.4 L Uric Acid 1.4 L White Blood Count 0.9 #L Medications Medications Current Medications Sodium Chloride (NS) 1,000 ml @ 100 mls/hr Q10H IV Last administered on at 22:28; Admin Dose 100 MLS/HR; Start 06/02/16 at 14:30 Acyclovir 400 mg 400 mg BID PO Last administered on 06/11/16at 08:16; Admin Dose 400 MG; Start 06/02/16 at 14:30 Methotrexate 175 mg/Sodium Chloride 250 ml @ 250 mls/hr ONCE IV ; Start at 03:00; Stop 06/16/16 at 03:59 Methotrexate 1590 mg/Sodium Chloride 1,000 ml @ 43.478 mls/ hr Q23H IV ; Start 06/16/16 at 04:00; Stop 06/17/16 at 02:59 Ondansetron HCl/ Dexamethasone/ Diphenhydramine HCl/Dextrose (Zofran Inj/ Decadron/Benadryl/ D5W) 59.5 ml @ 120 mls/hr ONCE IV ; Start 06/16/16 at 02:00 ; Stop 06/16/16 at 02:30 Diphenhydramine HCl (Benadryl) 25 mg Q4H PRN IV ALLERGIC REACTION Last administered on 06/06/16at 20:26; Admin Dose 25 MG; Start 06/02/16 at 18:30 Dexamethasone 10 mg 10 mg Q4H PRN IV ALLERGIC REACTION; Start 06/02/16 at 18: 30 Leucovorin Calcium/Dextrose (Leucovorin Calcium Inj/D5W) 50 ml @ 50 mls/hr Q6H IV ; Start 06/17/16 at 15:00 Fluconazole 100 mg 100 mg DAILY PO Last administered on 06/08/16at 09:58; Admin Dose 100 MG; Start 06/03/16 at 09:00; Status Future Hold Ondansetron HCl/ Sodium Chloride (Zofran Inj/NS) 54 ml @ 216 mls/hr Q6H PRN IV NAUSEA AND/OR VOMITING; Start 06/02/16 at 18:30 Ondansetron HCl (Zofran Inj) 4 mg Q6H PRN IV NAUSEA AND/OR VOMITING; Start at 17:00 Acetaminophen (Tylenol Tab) 650 mg Q6H PRN PO PAIN LEVEL 1-3 OR FEVER Last administered on 06/11/16at 03:11; Admin Dose 650 MG; Start 06/03/16 at 17:00 Acetaminophen (Tylenol Supp) 650 mg Q6H PRN [place] PAIN LEVEL 1-3 OR FEVER Last administered on 06/09/16at 03:37; Admin Dose 650 MG; Start 06/03/16 at 17:00 Docusate Sodium (Colace) 100 mg Q12H PRN PO CONSTIPATION; Start 06/03/16 at 17 :00 Magnesium Hydroxide (Milk Of Mag) 30 ml DAILY PRN PO CONSTIPATION; Start 06/03 at 17:00 Bisacodyl (Dulcolax) 5 mg DAILY PRN PO CONSTIPATION; Start 06/03/16 at 17:00 Bisacodyl (Dulcolax Supp) 10 mg DAILY PRN MS CONSTIPATION; Start 06/03/16 at 17:00 Sodium Biphosphate/ Sodium Phosphate (Fleet Enema) 133 ml DAILY PRN MS CONSTIPATION; Start 06/03/16 at 17:00 Enoxaparin Sodium (Lovenox) 30 mg DAILY SC Last administered on 06/11/16at 08: 36; Admin Dose 30 MG; Start 06/04/16 at 09:00 Allopurinol (Zyloprim) 300 mg DAILY PO Last administered on 06/11/16at 08:17; Admin Dose 300 MG; Start 06/04/16 at 09:00 Eye Lubricant (Artificial Tears Oph) 2 drop QID BOTH EYES Last administered on 06/11/16at 12:52; Admin Dose 2 DROP; Start 06/03/16 at 21:00 Eye Lubricant (Akwa Oint) 1 applic DAILY BOTH EYES Last administered on at 08:17; Admin Dose 1 APPLIC; Start 06/04/16 at 09:00 Gabapentin (Neurontin) 200 mg TID PO Last administered on 06/11/16at 12:53; Admin Dose 200 MG; Start 06/03/16 at 21:00 Levothyroxine Sodium (Synthroid) 100 mcg DAILY@06 PO Last administered on 06/11at 06:55; Admin Dose 100 MCG; Start 06/04/16 at 06:00 Nystatin 5 ml 5 ml QID PO Last administered on 06/11/16at 12:52; Admin Dose 5 ML; Start 06/03/16 at 21:00 Vincristine Sulfate/Sodium Chloride (Oncovin/NS) 51 ml @ 102 mls/hr 05 IV ; Start 06/17/16 at 05:00; Stop 06/17/16 at 05:29 Mupirocin (Bactroban) 1 applic BID TOP Last administered on 06/11/16at 08:16; Admin Dose 1 APPLIC; Start 06/04/16 at 21:00 Pantoprazole (Protonix Iv) 40 mg DAILY@06 IV Last administered on 06/11/16at 06 :55; Admin Dose 40 MG; Start 06/09/16 at 06:00 Lorazepam 1 mg 1 mg Q6H PRN IV AGITATION/ANXIETY Last administered on at 18:38; Admin Dose 1 MG; Start 06/08/16 at 18:00 Fluconazole 100 ml @ 100 mls/hr Q24H IVPB Last administered on 06/11/16at 06: 44; Admin Dose 100 MLS/HR; Start 06/09/16 at 05:30 Imipenem/ Cilastatin Sodium 100 ml @ 100 mls/hr Q8 IVPB Last administered on 06/11/16at 08:16; Admin Dose 100 MLS/HR; Start 06/09/16 at 14:00 Filgrastim 480 mcg/Dextrose 51.6 ml @ 103.2 mls/ hr DAILY@17 IVPB Last administered on 06/10/16at 17:45; Admin Dose 103.2 MLS/HR; Start 06/09/16 at 17 :00 Vancomycin HCl/ Sodium Chloride (Vancocin/NS) 250 ml @ 83.333 mls/ hr Q12H IVPB Last administered on 06/11/16at 10:09; Admin Dose 83.333 MLS/HR; Start at 21:00 Miscellaneous Information (*Rx Drug Level Order Reminder*) VANCO TR LEVEL PRIOR... ONCE ONCE XX ; Start 06/11/16 at 20:00; Stop 06/11/16 at 20:01 GUERLINE SULLIVAN MD Jun 11, 2016 17:13
[2016-06-11] MEDS ORDERED: POTASSIUM CHLORIDE (SR) 10 MEQ TAB PO ONE (17:30)
[2016-06-11] MEDS: HYDROCODONE/APAP (5/325) TAB PO PRN (17:38)
[2016-06-11] MEDS: DEXTROSE 5% IVPB SCH (18:48)
[2016-06-11] MEDS: FILGRASTIM IVPB SCH (18:48)
[2016-06-11 20:00] VITALS: BP 125/73; PULSE 95; RESP 20
[2016-06-12] MEDS: ALBUTEROL/IPRATROPIUM (NEB) 3 ML AMP HHN SCH ×5 (00:06→20:56)
[2016-06-12] MEDS: SOD CHLORIDE 0.9% 1,000 ML IV SCH ×4 (04:30→23:41)
[2016-06-12] MEDS: PANTOPRAZOLE 40 MG INJ IV SCH (05:25)
[2016-06-12] MEDS: FLUCONAZOLE 200 MG/NS (PMX) 100 ML IVPB SCH (05:25)
[2016-06-12] MEDS: LEVOTHYROXINE 100 MCG TAB PO SCH (05:25)
[2016-06-12 05:48] LABS: HEMATOCRIT 27.7 % (37.0-47.0); HEMOGLOBIN 9.5 g/dl (12.0-16.0); MEAN CORPUSCULAR HEMOGLOBIN 28.9 pg (29.0-33.0); MEAN CORPUSCULAR HGB CONC 34.2 g/dl (32.0-37.0); MEAN CORPUSCULAR VOLUME 84.5 fl (82.0-101.0); MEAN PLATELET VOLUME 7.6 fl (7.4-10.4); PLATELET COUNT 41 10^3/UL (140-440); RED BLOOD COUNT 3.28 10^6/ul (4.20-5.40); RED CELL DISTRIBUTION WIDTH 16.2 % (11.5-14.5); UNCORRECTED WBC 2.8 10^3/ul (4.8-10.8); WHITE BLOOD COUNT 2.8 10^3/ul (4.8-10.8)
[2016-06-12] MEDS: IMIPENEM-CILAST 500MG IV (PMX) 100 ML IVPB SCH ×3 (05:58→21:09)
[2016-06-12] MEDS: VANCOMYCIN 1.25 GM in SOD CHLORIDE 0.9% 250 ML IVPB SCH ×3 (06:00→22:38)
[2016-06-12 06:10] LABS: CONDITION 1; LH ANALYZER COMMENTS 1; SUSPECT 1
[2016-06-12 07:16] LABS: ALBUMIN 2.7 g/dl (3.3-4.9)
[2016-06-12 07:17] LABS: CHLORIDE 107 mmol/L (97-110); SODIUM 142 mmol/L (135-144)
[2016-06-12 07:19] LABS: ALANINE AMINOTRANSFERASE 42 IU/L (13-69); ALKALINE PHOSPHATASE 103 IU/L (42-121); ANION GAP 11 (8-16); ASPARTATE AMINO TRANSFERASE 21 IU/L (15-46); BILIRUBIN,INDIRECT 0.3 mg/dl (0-1.1); BILIRUBIN,TOTAL 0.3 mg/dl (0.2-1.3); CARBON DIOXIDE 27 mmol/L (21-31); TOTAL PROTEIN 5.4 g/dl (6.1-8.1)
[2016-06-12 07:20] LABS: GLUCOSE 74 mg/dl (70-220); LACTATE DEHYDROGENASE 1038 IU/L (313-618); URIC ACID 1.9 mg/dl (3.1-7.9)
[2016-06-12 07:21] LABS: CALCIUM 8.2 mg/dl (8.4-10.2)
[2016-06-12 07:30] LABS: BLOOD UREA NITROGEN < 2 mg/dl (7-20)
[2016-06-12 08:00] VITALS: BP 134/78; PULSE 94; RESP 14
[2016-06-12] MEDS: ONDANSETRON 4 MG INJ IV PRN (08:11)
[2016-06-12] MEDS: NYSTATIN SUSP 5 ML CUP PO SCH ×4 (08:12→20:50)
[2016-06-12] MEDS: GABAPENTIN 100 MG CAP PO SCH ×3 (08:12→20:50)
[2016-06-12] MEDS: ARTIFICIAL TEARS 15 ML OPH BOTH EYES SCH ×4 (08:12→20:50)
[2016-06-12] MEDS: MUPIROCIN 2% 22 GM OINT TOP SCH ×2 (08:12→20:50)
[2016-06-12] MEDS: ALLOPURINOL 300 MG TAB PO SCH (08:12)
[2016-06-12] MEDS: ACYCLOVIR 400 MG TAB PO SCH ×2 (08:12→20:50)
[2016-06-12] MEDS: OCULAR LUBRICANT 3.5 GM OPH OINT BOTH EYES SCH (08:13)
[2016-06-12] MEDS: ENOXAPARIN 30 MG/0.3 ML SYG SC SCH (08:27)
[2016-06-12] MEDS: COLLAGENASE 30 GM TUBE TOP SCH (09:00)
[2016-06-12 09:47] LABS: LYMPHOCYTES # 0.2 10^3/ul (0.8-2.9); MONOCYTE # 0.2 10^3/ul (0.3-0.9); MYELOCYTES # 0.1; NEUTROPHIL # 1.7 10^3/ul (1.6-7.5)
[2016-06-12 09:48] LABS: PLATELET ESTIMATE PLT APPEAR DECREASED
--- NOTE | 2016-06-12 14:19 | CONS ---
Date/Time of Note Date/Time of Note DATE: 06/12/16 TIME: 14:17 Assessment/Plan Assessment/Plan Chief Complaint/Hosp Course 56 yo female with massive neck mass causing tracheal compression and airway compromise s/p tracheostomy placement. 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 Pt was given cycle 1A and 1B of R HyperCVAD but had only a partial response to therapy and severe side effects. We have thus changed her chemotherapy regimen. She is now being admitted for cycle 1 of R-CODOX-M. Problems: Additional Assessment/Plan # Burkitt's lymphoma -continue with cycle 1 R CODOX -M. today is day 10 -Rituximab (Rituxan) as follows: * Cycle 1: 375 mg/m2 (660mg) IV on Day 1 -Cyclophosphamide (Cytoxan) 800 mg/m2 ( 1415mg) IV once per day on days 1 & 2 -Vincristine (Oncovin) 1.0 mg (dose reduced for neuropathy) days 1 & 15 . next dose due on 06/17 -Doxorubicin (Adriamycin) 50 mg/m2 (88mg) IV once on day 1 -Methotrexate (MTX) 100mg/m2 (175mg) IV over 1 hour then 900mg/m2 (1590mg) over 23 hours on day 15. will start Na HCo3 prior to MTX infusion and only start MTX once Urine Ph > 7.0. Leucovorin 25mg IV q 4 hours will start 36 hours after MTX starts until MTX level is < 0.05. next dose due on 06/16 # Neutropenic fever -pt is now afebrile -cont Neupogen 480mcg q day -continue antibiotics. will consult Dr. 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 all steroids should be discontinued for now unless they are part of the chemotherapy regimen -continue to work with physical therapy. 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 -uric acid level ok, 1.9 today -will continue to monitor LDH Approximately 40 min were spent at patient;s bedside and in coordination of her care Consultation Date/Type/Reason Admit Date/Time Jun 02, 2016 at 15:10 Initial Consult Date 06/02/16 Type of Consultation: Hematology Reason for Consultation burkitts lymphoma Referring Provider: TELLY SOLANO MD 24 HR Interval Summary Free Text/Dictation no acute overnight events Exam/Review of Systems Vital Signs Vitals Vital Signs Date Time Temp Pulse Resp B/P Pulse Ox O2 Delivery O2 Flow Rate FiO2 06/12/16 13:52 89 17 96 Aerosol 5.0 28 06/12/16 08:00 98.4 134/78 Intake and Output 06/11/16 06/11/16 06/12/16 15:00 23:00 07:00 Intake Total 450 ml 841.6 ml 970 ml Output Total 600 ml 1100 ml Balance 450 ml 241.6 ml -130 ml Exam Constitutional: alert, oriented Psych: nl mood/affect, no complaints Head: normocephalic Eyes: nl conjunctiva ENMT: other (trach in place) Neck: non-tender, supple Respiratory: clear to auscultation, normal air movement Cardiovascular: regular rate and rhythm Gastrointestinal: soft Musculoskeletal: nl extremities to inspection, nl gait and stance Results Result Diagram: 06/12/16 0520 06/12/16 0520 Results 24 hrs Laboratory Tests Test 06/11/16 20:30 06/12/16 05:20 Vancomycin Level Trough 5.1 L Alanine Aminotransferase (ALT/SGPT) 42 Albumin 2.7 L Albumin/Globulin Ratio 1.00 Alkaline Phosphatase 103 Anion Gap 11 Aspartate Amino Transf (AST/SGOT) 21 Band Neutrophils % 18.0 H Blood Morphology Comment Blood Urea Nitrogen < 2 L Calcium Level 8.2 L Carbon Dioxide Level 27 Chloride Level 107 Creatinine 0.30 L Differential Comment MANUAL DIFF Direct Bilirubin 0.00 Globulin 2.70 Glucose Level 74 Hematocrit 27.7 L Hemoglobin 9.5 L Indirect Bilirubin 0.3 Lactate Dehydrogenase 1038 H Lymphocytes # 0.2 L Lymphocytes % 8.0 L Mean Corpuscular Hemoglobin 28.9 L Mean Corpuscular Hemoglobin Concent 34.2 Mean Corpuscular Volume 84.5 Mean Platelet Volume 7.6 Metamyelocytes # 0.1 Metamyelocytes % 2.0 H Monocytes # 0.2 L Monocytes % 8.0 Myelocytes # 0.1 Myelocytes % 5.0 H Neutrophils # 1.7 Neutrophils % 59.0 Platelet Count 41 L Platelet Estimate PLT APPEAR DECREASED Potassium Level 3.0 L Red Blood Count 3.28 L Red Cell Distribution Width 16.2 H Sodium Level 142 Total Bilirubin 0.3 Total Protein 5.4 L Uric Acid 1.9 L White Blood Count 2.8 #L Medications Medications Current Medications Sodium Chloride (NS) 1,000 ml @ 100 mls/hr Q10H IV Last administered on at 22:28; Admin Dose 100 MLS/HR; Start 06/02/16 at 14:30 Acyclovir 400 mg 400 mg BID PO Last administered on 06/12/16at 08:12; Admin Dose 400 MG; Start 06/02/16 at 14:30 Methotrexate 175 mg/Sodium Chloride 250 ml @ 250 mls/hr ONCE IV ; Start at 03:00; Stop 06/16/16 at 03:59 Methotrexate 1590 mg/Sodium Chloride 1,000 ml @ 43.478 mls/ hr Q23H IV ; Start 06/16/16 at 04:00; Stop 06/17/16 at 02:59 Ondansetron HCl/ Dexamethasone/ Diphenhydramine HCl/Dextrose (Zofran Inj/ Decadron/Benadryl/ D5W) 59.5 ml @ 120 mls/hr ONCE IV ; Start 06/16/16 at 02:00 ; Stop 06/16/16 at 02:30 Diphenhydramine HCl (Benadryl) 25 mg Q4H PRN IV ALLERGIC REACTION Last administered on 06/06/16at 20:26; Admin Dose 25 MG; Start 06/02/16 at 18:30 Dexamethasone 10 mg 10 mg Q4H PRN IV ALLERGIC REACTION; Start 06/02/16 at 18: 30 Leucovorin Calcium/Dextrose (Leucovorin Calcium Inj/D5W) 50 ml @ 50 mls/hr Q6H IV ; Start 06/17/16 at 15:00 Fluconazole 100 mg 100 mg DAILY PO Last administered on 06/08/16at 09:58; Admin Dose 100 MG; Start 06/03/16 at 09:00; Status Future Hold Ondansetron HCl/ Sodium Chloride (Zofran Inj/NS) 54 ml @ 216 mls/hr Q6H PRN IV NAUSEA AND/OR VOMITING; Start 06/02/16 at 18:30 Ondansetron HCl (Zofran Inj) 4 mg Q6H PRN IV NAUSEA AND/OR VOMITING Last administered on 06/12/16at 08:11; Admin Dose 4 MG; Start 06/03/16 at 17:00 Acetaminophen (Tylenol Tab) 650 mg Q6H PRN PO PAIN LEVEL 1-3 OR FEVER Last administered on 06/11/16at 21:50; Admin Dose 650 MG; Start 06/03/16 at 17:00 Acetaminophen (Tylenol Supp) 650 mg Q6H PRN [place] PAIN LEVEL 1-3 OR FEVER Last administered on 06/09/16at 03:37; Admin Dose 650 MG; Start 06/03/16 at 17:00 Docusate Sodium (Colace) 100 mg Q12H PRN PO CONSTIPATION; Start 06/03/16 at 17 :00 Magnesium Hydroxide (Milk Of Mag) 30 ml DAILY PRN PO CONSTIPATION; Start 06/03 at 17:00 Bisacodyl (Dulcolax) 5 mg DAILY PRN PO CONSTIPATION; Start 06/03/16 at 17:00 Bisacodyl (Dulcolax Supp) 10 mg DAILY PRN [place] CONSTIPATION; Start 06/03/16 at 17:00 Sodium Biphosphate/ Sodium Phosphate (Fleet Enema) 133 ml DAILY PRN DE CONSTIPATION; Start 06/03/16 at 17:00 Enoxaparin Sodium (Lovenox) 30 mg DAILY SC Last administered on 06/12/16at 08: 27; Admin Dose 30 MG; Start 06/04/16 at 09:00 Allopurinol (Zyloprim) 300 mg DAILY PO Last administered on 06/12/16at 08:12; Admin Dose 300 MG; Start 06/04/16 at 09:00 Eye Lubricant (Artificial Tears Oph) 2 drop QID BOTH EYES Last administered on 06/12/16at 12:16; Admin Dose 2 DROP; Start 06/03/16 at 21:00 Eye Lubricant (Akwa Oint) 1 applic DAILY BOTH EYES Last administered on at 08:13; Admin Dose 1 APPLIC; Start 06/04/16 at 09:00 Gabapentin (Neurontin) 200 mg TID PO Last administered on 06/12/16at 12:16; Admin Dose 200 MG; Start 06/03/16 at 21:00 Levothyroxine Sodium (Synthroid) 100 mcg DAILY@06 PO Last administered on 06/12at 05:25; Admin Dose 100 MCG; Start 06/04/16 at 06:00 Nystatin 5 ml 5 ml QID PO Last administered on 06/12/16at 12:15; Admin Dose 5 ML; Start 06/03/16 at 21:00 Vincristine Sulfate/Sodium Chloride (Oncovin/NS) 51 ml @ 102 mls/hr 05 IV ; Start 06/17/16 at 05:00; Stop 06/17/16 at 05:29 Mupirocin (Bactroban) 1 applic BID TOP Last administered on 06/12/16at 08:12; Admin Dose 1 APPLIC; Start 06/04/16 at 21:00 Pantoprazole (Protonix Iv) 40 mg DAILY@06 IV Last administered on 06/12/16at 05 :25; Admin Dose 40 MG; Start 06/09/16 at 06:00 Lorazepam 1 mg 1 mg Q6H PRN IV AGITATION/ANXIETY Last administered on at 18:38; Admin Dose 1 MG; Start 06/08/16 at 18:00 Fluconazole 100 ml @ 100 mls/hr Q24H IVPB Last administered on 06/12/16at 05: 25; Admin Dose 100 MLS/HR; Start 06/09/16 at 05:30 Imipenem/ Cilastatin Sodium 100 ml @ 100 mls/hr Q8 IVPB Last administered on 06/12/16at 13:10; Admin Dose 100 MLS/HR; Start 06/09/16 at 14:00 Filgrastim/ Dextrose (Neupogen/D5W) 51.6 ml @ 103.2 mls/ hr DAILY@17 IVPB Last administered on 06/11/16at 18:48; Admin Dose 103.2 MLS/HR; Start 06/09/16 at 17:00 Acetaminophen/ Hydrocodone Bitart 1 tab 1 tab Q6H PRN PO PAIN Last administered on 06/11/16at 17:38; Admin Dose 1 TAB; Start 06/11/16 at 17:30 Vancomycin HCl/ Sodium Chloride (Vancocin/NS) 250 ml @ 83.333 mls/ hr Q8H IVPB Last administered on 06/12/16at 06:00; Admin Dose 83.333 MLS/HR; Start at 06:00 Collagenase (Santyl) 1 applic DAILY TOP ; Start 06/12/16 at 09:00 Miscellaneous Information (*Rx Drug Level Order Reminder*) 1 ONCE ONCE XX ; Start 06/13/16 at 05:00; Stop 06/13/16 at 05:01 CHANDRIKA MERLOS M.D. Jun 12, 2016 14:19
--- NOTE | 2016-06-12 15:38 | PN ---
Date/Time of Note Date/Time of Note DATE: 06/12/16 TIME: 15:37 Assessment/Plan VTE Prophylaxis VTE Prophylaxis Intervention: other Lines/Catheters IV Catheter Type (from Nrs): PICC Line Central line still needed: Yes Urinary Cath still in place: No Assessment/Plan Chief Complaint/Hosp Course IMPRESSION: The patient has Burkitt's lymphoma status post tracheostomy, status post thyroid mass, status post pancytopenia, abnormal liver function test. 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 SEPSIS HYPOKALEMIA PLAN PER DR MERLOS ANTIBIOTIC IV FLUID ID CONSULT f/u [facility] Problems: Subjective 24 Hr Interval Summary Cardiovascular: no complaints Genitourinary: no complaints Exam/Review of Systems Vital Signs Vitals Vital Signs Date Time Temp Pulse Resp B/P Pulse Ox O2 Delivery O2 Flow Rate FiO2 06/12/16 13:52 89 17 96 Aerosol 5.0 28 06/12/16 08:00 98.4 134/78 Intake and Output 06/11/16 06/11/16 06/12/16 15:00 23:00 07:00 Intake Total 450 ml 841.6 ml 970 ml Output Total 600 ml 1100 ml Balance 450 ml 241.6 ml -130 ml Exam Neck: supple Respiratory: clear to auscultation Cardiovascular: regular rate and rhythm Gastrointestinal: soft Musculoskeletal: nl extremities to inspection Results Result Diagram: 06/12/16 0520 06/12/16 0520 Results 24 hrs Laboratory Tests Test 06/11/16 20:30 06/12/16 05:20 Vancomycin Level Trough 5.1 L Alanine Aminotransferase (ALT/SGPT) 42 Albumin 2.7 L Albumin/Globulin Ratio 1.00 Alkaline Phosphatase 103 Anion Gap 11 Aspartate Amino Transf (AST/SGOT) 21 Band Neutrophils % 18.0 H Blood Morphology Comment Blood Urea Nitrogen < 2 L Calcium Level 8.2 L Carbon Dioxide Level 27 Chloride Level 107 Creatinine 0.30 L Differential Comment MANUAL DIFF Direct Bilirubin 0.00 Globulin 2.70 Glucose Level 74 Hematocrit 27.7 L Hemoglobin 9.5 L Indirect Bilirubin 0.3 Lactate Dehydrogenase 1038 H Lymphocytes # 0.2 L Lymphocytes % 8.0 L Mean Corpuscular Hemoglobin 28.9 L Mean Corpuscular Hemoglobin Concent 34.2 Mean Corpuscular Volume 84.5 Mean Platelet Volume 7.6 Metamyelocytes # 0.1 Metamyelocytes % 2.0 H Monocytes # 0.2 L Monocytes % 8.0 Myelocytes # 0.1 Myelocytes % 5.0 H Neutrophils # 1.7 Neutrophils % 59.0 Platelet Count 41 L Platelet Estimate PLT APPEAR DECREASED Potassium Level 3.0 L Red Blood Count 3.28 L Red Cell Distribution Width 16.2 H Sodium Level 142 Total Bilirubin 0.3 Total Protein 5.4 L Uric Acid 1.9 L White Blood Count 2.8 #L Medications Medications Current Medications Sodium Chloride (NS) 1,000 ml @ 100 mls/hr Q10H IV Last administered on at 22:28; Admin Dose 100 MLS/HR; Start 06/02/16 at 14:30 Acyclovir 400 mg 400 mg BID PO Last administered on 06/12/16at 08:12; Admin Dose 400 MG; Start 06/02/16 at 14:30 Methotrexate 175 mg/Sodium Chloride 250 ml @ 250 mls/hr ONCE IV ; Start at 03:00; Stop 06/16/16 at 03:59 Methotrexate 1590 mg/Sodium Chloride 1,000 ml @ 43.478 mls/ hr Q23H IV ; Start 06/16/16 at 04:00; Stop 06/17/16 at 02:59 Ondansetron HCl/ Dexamethasone/ Diphenhydramine HCl/Dextrose (Zofran Inj/ Decadron/Benadryl/ D5W) 59.5 ml @ 120 mls/hr ONCE IV ; Start 06/16/16 at 02:00 ; Stop 06/16/16 at 02:30 Diphenhydramine HCl (Benadryl) 25 mg Q4H PRN IV ALLERGIC REACTION Last administered on 06/06/16at 20:26; Admin Dose 25 MG; Start 06/02/16 at 18:30 Dexamethasone 10 mg 10 mg Q4H PRN IV ALLERGIC REACTION; Start 06/02/16 at 18: 30 Leucovorin Calcium/Dextrose (Leucovorin Calcium Inj/D5W) 50 ml @ 50 mls/hr Q6H IV ; Start 06/17/16 at 15:00 Fluconazole 100 mg 100 mg DAILY PO Last administered on 06/08/16at 09:58; Admin Dose 100 MG; Start 06/03/16 at 09:00; Status Future Hold Ondansetron HCl/ Sodium Chloride (Zofran Inj/NS) 54 ml @ 216 mls/hr Q6H PRN IV NAUSEA AND/OR VOMITING; Start 06/02/16 at 18:30 Ondansetron HCl (Zofran Inj) 4 mg Q6H PRN IV NAUSEA AND/OR VOMITING Last administered on 06/12/16at 08:11; Admin Dose 4 MG; Start 06/03/16 at 17:00 Acetaminophen (Tylenol Tab) 650 mg Q6H PRN PO PAIN LEVEL 1-3 OR FEVER Last administered on 06/11/16at 21:50; Admin Dose 650 MG; Start 06/03/16 at 17:00 Acetaminophen (Tylenol Supp) 650 mg Q6H PRN [place] PAIN LEVEL 1-3 OR FEVER Last administered on 06/09/16at 03:37; Admin Dose 650 MG; Start 06/03/16 at 17:00 Docusate Sodium (Colace) 100 mg Q12H PRN PO CONSTIPATION; Start 06/03/16 at 17 :00 Magnesium Hydroxide (Milk Of Mag) 30 ml DAILY PRN PO CONSTIPATION; Start 06/03 at 17:00 Bisacodyl (Dulcolax) 5 mg DAILY PRN PO CONSTIPATION; Start 06/03/16 at 17:00 Bisacodyl (Dulcolax Supp) 10 mg DAILY PRN [place] CONSTIPATION; Start 06/03/16 at 17:00 Sodium Biphosphate/ Sodium Phosphate (Fleet Enema) 133 ml DAILY PRN [place] CONSTIPATION; Start 06/03/16 at 17:00 Enoxaparin Sodium (Lovenox) 30 mg DAILY SC Last administered on 06/12/16at 08: 27; Admin Dose 30 MG; Start 06/04/16 at 09:00 Allopurinol (Zyloprim) 300 mg DAILY PO Last administered on 06/12/16at 08:12; Admin Dose 300 MG; Start 06/04/16 at 09:00 Eye Lubricant (Artificial Tears Oph) 2 drop QID BOTH EYES Last administered on 06/12/16at 12:16; Admin Dose 2 DROP; Start 06/03/16 at 21:00 Eye Lubricant (Akwa Oint) 1 applic DAILY BOTH EYES Last administered on at 08:13; Admin Dose 1 APPLIC; Start 06/04/16 at 09:00 Gabapentin (Neurontin) 200 mg TID PO Last administered on 06/12/16at 12:16; Admin Dose 200 MG; Start 06/03/16 at 21:00 Levothyroxine Sodium (Synthroid) 100 mcg DAILY@06 PO Last administered on 06/12at 05:25; Admin Dose 100 MCG; Start 06/04/16 at 06:00 Nystatin 5 ml 5 ml QID PO Last administered on 06/12/16at 12:15; Admin Dose 5 ML; Start 06/03/16 at 21:00 Vincristine Sulfate/Sodium Chloride (Oncovin/NS) 51 ml @ 102 mls/hr 05 IV ; Start 06/17/16 at 05:00; Stop 06/17/16 at 05:29 Mupirocin (Bactroban) 1 applic BID TOP Last administered on 06/12/16at 08:12; Admin Dose 1 APPLIC; Start 06/04/16 at 21:00 Pantoprazole (Protonix Iv) 40 mg DAILY@06 IV Last administered on 06/12/16at 05 :25; Admin Dose 40 MG; Start 06/09/16 at 06:00 Lorazepam 1 mg 1 mg Q6H PRN IV AGITATION/ANXIETY Last administered on at 18:38; Admin Dose 1 MG; Start 06/08/16 at 18:00 Fluconazole 100 ml @ 100 mls/hr Q24H IVPB Last administered on 06/12/16at 05: 25; Admin Dose 100 MLS/HR; Start 06/09/16 at 05:30 Imipenem/ Cilastatin Sodium 100 ml @ 100 mls/hr Q8 IVPB Last administered on 06/12/16at 13:10; Admin Dose 100 MLS/HR; Start 06/09/16 at 14:00 Filgrastim/ Dextrose (Neupogen/D5W) 51.6 ml @ 103.2 mls/ hr DAILY@17 IVPB Last administered on 06/11/16at 18:48; Admin Dose 103.2 MLS/HR; Start 06/09/16 at 17:00 Acetaminophen/ Hydrocodone Bitart 1 tab 1 tab Q6H PRN PO PAIN Last administered on 06/11/16at 17:38; Admin Dose 1 TAB; Start 06/11/16 at 17:30 Vancomycin HCl/ Sodium Chloride (Vancocin/NS) 250 ml @ 83.333 mls/ hr Q8H IVPB Last administered on 06/12/16at 06:00; Admin Dose 83.333 MLS/HR; Start at 06:00 Collagenase (Santyl) 1 applic DAILY TOP ; Start 06/12/16 at 09:00 Miscellaneous Information (*Rx Drug Level Order Reminder*) 1 ONCE ONCE XX ; Start 06/13/16 at 05:00; Stop 06/13/16 at 05:01 GUERLINE SULLIVAN MD Jun 12, 2016 15:38
[2016-06-12] MEDS: DEXTROSE 5% IVPB SCH (17:46)
[2016-06-12] MEDS: FILGRASTIM IVPB SCH (17:46)
--- NOTE | 2016-06-12 18:09 | CONS ---
Date/Time of Note Date/Time of Note DATE: 06/12/16 TIME: 18:07 Consult Date/Type/Reason Admit Date/Time Jun 02, 2016 at 15:10 Initial Consult Date 06/02/16 Type of Consultation: ID Ordering Provider: TELLY SOLANO MD Subjective alert, feels good, no fevers, was nauseated in am, no vomiting/diarrhea, nad Objective Vital Signs Date Time Temp Pulse Resp B/P Pulse Ox O2 Delivery O2 Flow Rate FiO2 06/12/16 13:52 89 17 96 Aerosol 5.0 28 06/12/16 08:00 98.4 134/78 Intake and Output 06/11/16 06/11/16 06/12/16 15:00 23:00 07:00 Intake Total 450 ml 841.6 ml 970 ml Output Total 600 ml 1100 ml Balance 450 ml 241.6 ml -130 ml Results/Medications Result Diagram: 06/12/16 0520 06/12/16 0520 Results 24 hrs Laboratory Tests Test 06/11/16 20:30 06/12/16 05:20 Vancomycin Level Trough 5.1 L Alanine Aminotransferase (ALT/SGPT) 42 Albumin 2.7 L Albumin/Globulin Ratio 1.00 Alkaline Phosphatase 103 Anion Gap 11 Aspartate Amino Transf (AST/SGOT) 21 Band Neutrophils % 18.0 H Blood Morphology Comment Blood Urea Nitrogen < 2 L Calcium Level 8.2 L Carbon Dioxide Level 27 Chloride Level 107 Creatinine 0.30 L Differential Comment MANUAL DIFF Direct Bilirubin 0.00 Globulin 2.70 Glucose Level 74 Hematocrit 27.7 L Hemoglobin 9.5 L Indirect Bilirubin 0.3 Lactate Dehydrogenase 1038 H Lymphocytes # 0.2 L Lymphocytes % 8.0 L Mean Corpuscular Hemoglobin 28.9 L Mean Corpuscular Hemoglobin Concent 34.2 Mean Corpuscular Volume 84.5 Mean Platelet Volume 7.6 Metamyelocytes # 0.1 Metamyelocytes % 2.0 H Monocytes # 0.2 L Monocytes % 8.0 Myelocytes # 0.1 Myelocytes % 5.0 H Neutrophils # 1.7 Neutrophils % 59.0 Platelet Count 41 L Platelet Estimate PLT APPEAR DECREASED Potassium Level 3.0 L Red Blood Count 3.28 L Red Cell Distribution Width 16.2 H Sodium Level 142 Total Bilirubin 0.3 Total Protein 5.4 L Uric Acid 1.9 L White Blood Count 2.8 #L Medications Current Medications Sodium Chloride (NS) 1,000 ml @ 100 mls/hr Q10H IV Last administered on at 13:30; Admin Dose 100 MLS/HR; Start 06/02/16 at 14:30 Acyclovir 400 mg 400 mg BID PO Last administered on 06/12/16at 08:12; Admin Dose 400 MG; Start 06/02/16 at 14:30 Methotrexate 175 mg/Sodium Chloride 250 ml @ 250 mls/hr ONCE IV ; Start at 03:00; Stop 06/16/16 at 03:59 Methotrexate 1590 mg/Sodium Chloride 1,000 ml @ 43.478 mls/ hr Q23H IV ; Start 06/16/16 at 04:00; Stop 06/17/16 at 02:59 Ondansetron HCl/ Dexamethasone/ Diphenhydramine HCl/Dextrose (Zofran Inj/ Decadron/Benadryl/ D5W) 59.5 ml @ 120 mls/hr ONCE IV ; Start 06/16/16 at 02:00 ; Stop 06/16/16 at 02:30 Diphenhydramine HCl (Benadryl) 25 mg Q4H PRN IV ALLERGIC REACTION Last administered on 06/06/16at 20:26; Admin Dose 25 MG; Start 06/02/16 at 18:30 Dexamethasone 10 mg 10 mg Q4H PRN IV ALLERGIC REACTION; Start 06/02/16 at 18: 30 Leucovorin Calcium/Dextrose (Leucovorin Calcium Inj/D5W) 50 ml @ 50 mls/hr Q6H IV ; Start 06/17/16 at 15:00 Fluconazole 100 mg 100 mg DAILY PO Last administered on 06/08/16at 09:58; Admin Dose 100 MG; Start 06/03/16 at 09:00; Status Future Hold Ondansetron HCl/ Sodium Chloride (Zofran Inj/NS) 54 ml @ 216 mls/hr Q6H PRN IV NAUSEA AND/OR VOMITING; Start 06/02/16 at 18:30 Ondansetron HCl (Zofran Inj) 4 mg Q6H PRN IV NAUSEA AND/OR VOMITING Last administered on 06/12/16at 08:11; Admin Dose 4 MG; Start 06/03/16 at 17:00 Acetaminophen (Tylenol Tab) 650 mg Q6H PRN PO PAIN LEVEL 1-3 OR FEVER Last administered on 06/11/16at 21:50; Admin Dose 650 MG; Start 06/03/16 at 17:00 Acetaminophen (Tylenol Supp) 650 mg Q6H PRN [place] PAIN LEVEL 1-3 OR FEVER Last administered on 06/09/16at 03:37; Admin Dose 650 MG; Start 06/03/16 at 17:00 Docusate Sodium (Colace) 100 mg Q12H PRN PO CONSTIPATION; Start 06/03/16 at 17 :00 Magnesium Hydroxide (Milk Of Mag) 30 ml DAILY PRN PO CONSTIPATION; Start 06/03 at 17:00 Bisacodyl (Dulcolax) 5 mg DAILY PRN PO CONSTIPATION; Start 06/03/16 at 17:00 Bisacodyl (Dulcolax Supp) 10 mg DAILY PRN [place] CONSTIPATION; Start 06/03/16 at 17:00 Sodium Biphosphate/ Sodium Phosphate (Fleet Enema) 133 ml DAILY PRN [place] CONSTIPATION; Start 06/03/16 at 17:00 Enoxaparin Sodium (Lovenox) 30 mg DAILY SC Last administered on 06/12/16at 08: 27; Admin Dose 30 MG; Start 06/04/16 at 09:00 Allopurinol (Zyloprim) 300 mg DAILY PO Last administered on 06/12/16at 08:12; Admin Dose 300 MG; Start 06/04/16 at 09:00 Eye Lubricant (Artificial Tears Oph) 2 drop QID BOTH EYES Last administered on 06/12/16at 12:16; Admin Dose 2 DROP; Start 06/03/16 at 21:00 Eye Lubricant (Akwa Oint) 1 applic DAILY BOTH EYES Last administered on at 08:13; Admin Dose 1 APPLIC; Start 06/04/16 at 09:00 Gabapentin (Neurontin) 200 mg TID PO Last administered on 06/12/16at 12:16; Admin Dose 200 MG; Start 06/03/16 at 21:00 Levothyroxine Sodium (Synthroid) 100 mcg DAILY@06 PO Last administered on 06/12at 05:25; Admin Dose 100 MCG; Start 06/04/16 at 06:00 Nystatin 5 ml 5 ml QID PO Last administered on 06/12/16at 12:15; Admin Dose 5 ML; Start 06/03/16 at 21:00 Vincristine Sulfate/Sodium Chloride (Oncovin/NS) 51 ml @ 102 mls/hr 05 IV ; Start 06/17/16 at 05:00; Stop 06/17/16 at 05:29 Mupirocin (Bactroban) 1 applic BID TOP Last administered on 06/12/16at 08:12; Admin Dose 1 APPLIC; Start 06/04/16 at 21:00 Pantoprazole (Protonix Iv) 40 mg DAILY@06 IV Last administered on 06/12/16at 05 :25; Admin Dose 40 MG; Start 06/09/16 at 06:00 Lorazepam 1 mg 1 mg Q6H PRN IV AGITATION/ANXIETY Last administered on at 18:38; Admin Dose 1 MG; Start 06/08/16 at 18:00 Fluconazole 100 ml @ 100 mls/hr Q24H IVPB Last administered on 06/12/16at 05: 25; Admin Dose 100 MLS/HR; Start 06/09/16 at 05:30 Imipenem/ Cilastatin Sodium 100 ml @ 100 mls/hr Q8 IVPB Last administered on 06/12/16at 13:10; Admin Dose 100 MLS/HR; Start 06/09/16 at 14:00 Filgrastim/ Dextrose (Neupogen/D5W) 51.6 ml @ 103.2 mls/ hr DAILY@17 IVPB Last administered on 06/12/16at 17:46; Admin Dose 103.2 MLS/HR; Start 06/09/16 at 17:00 Acetaminophen/ Hydrocodone Bitart 1 tab 1 tab Q6H PRN PO PAIN Last administered on 06/11/16at 17:38; Admin Dose 1 TAB; Start 06/11/16 at 17:30 Vancomycin HCl/ Sodium Chloride (Vancocin/NS) 250 ml @ 83.333 mls/ hr Q8H IVPB Last administered on 06/12/16at 16:21; Admin Dose 83.333 MLS/HR; Start at 06:00 Collagenase (Santyl) 1 applic DAILY TOP ; Start 06/12/16 at 09:00 Miscellaneous Information 1 ONCE ONCE XX ; Start 06/13/16 at 05:00; Stop at 05:01 Potassium Chloride (KCl 40 MEQ/250 ML NS) 250 ml @ 62.5 mls/hr Q4H IVPB ; Start 06/12/16 at 17:00; Stop 06/13/16 at 00:59 Assessment/Plan Chief Complaint/Hosp Course MICROBIOLOGY: Blood cultures from 06/08/2016 grew coagulase-negative staph species. Repeat blood cultures negative. Nares swab/sputum cx positive for MRSA. INDWELLINGS: Trach and left upper extremity PICC line. ANTIMICROBIALS: 1. Vancomycin. 2. Imipenem. 3. Topical Bactroban to nares. 4. Fluconazole. 5. Acyclovir. PHYSICAL EXAMINATION: GENERAL: This is a well-developed, ill-appearing, middle-aged [place] woman who is alert, in no distress. HEENT: Head atraumatic, normocephalic. Sclerae anicteric. Buccal mucosa pink. NECK: Supple. Tracheostomy present. CHEST: Rise symmetrical. Breath sounds diminished to bases. HEART: S1, S2. ABDOMEN: Soft, bowel tones present. EXTREMITIES: Without cyanosis. ASSESSMENT: 1. S/p sepsis with high fevers likely secondary to neutropenia. 2. Coagulase-negative Staphylococcus bacteremia, likely contaminant. 3. Methicillin-resistant Staphylococcus aureus nares colonization. 4. Possible aspiration pneumonia===> sputum cx + MRSA. 5. Stage IIA Burkitt's lymphoma, getting chemotherapy. The next cycle on Thursday. 6. Respiratory failure, status post tracheostomy secondary to a neck mass causing tracheal compression and airway compromise, remains on trach collar. 7. Dysphagia. PLAN: The patient remains stable, repeat bld cultures negative, continue abx, Bactroban to nares. Chemo per oncology DW pt/staff Problems: RODRÍGUEZ ERAZO NP Jun 12, 2016 18:08
[2016-06-12] MEDS: POTASSIUM CHLORIDE 250 ML IVPB SCH ×2 (18:37→20:50)
[2016-06-12 20:00] VITALS: BP 130/71; PULSE 105; RESP 18
[2016-06-13] MEDS: ALBUTEROL/IPRATROPIUM (NEB) 3 ML AMP HHN SCH ×6 (00:39→21:05)
[2016-06-13] MEDS: FLUCONAZOLE 200 MG/NS (PMX) 100 ML IVPB SCH (05:05)
[2016-06-13] MEDS: PANTOPRAZOLE 40 MG INJ IV SCH (05:10)
[2016-06-13 05:54] LABS: HEMATOCRIT 28.9 % (37.0-47.0); MEAN CORPUSCULAR HEMOGLOBIN 29.3 pg (29.0-33.0); MEAN CORPUSCULAR HGB CONC 34.5 g/dl (32.0-37.0); MEAN CORPUSCULAR VOLUME 84.9 fl (82.0-101.0); MEAN PLATELET VOLUME 7.8 fl (7.4-10.4); PLATELET COUNT 38 10^3/UL (140-440); RED CELL DISTRIBUTION WIDTH 16.6 % (11.5-14.5); UNCORRECTED WBC 9.7 10^3/ul (4.8-10.8); WHITE BLOOD COUNT 9.7 10^3/ul (4.8-10.8)
[2016-06-13 06:06] LABS: ALBUMIN 2.7 g/dl (3.3-4.9)
[2016-06-13 06:07] LABS: CHLORIDE 106 mmol/L (97-110); POTASSIUM 3.7 mmol/L (3.5-5.1); SODIUM 143 mmol/L (135-144)
[2016-06-13 06:09] LABS: ANION GAP 12 (8-16); ASPARTATE AMINO TRANSFERASE 26 IU/L (15-46); BILIRUBIN,INDIRECT 0.3 mg/dl (0-1.1); BILIRUBIN,TOTAL 0.3 mg/dl (0.2-1.3); CARBON DIOXIDE 29 mmol/L (21-31)
[2016-06-13] MEDS: IMIPENEM-CILAST 500MG IV (PMX) 100 ML IVPB SCH (06:09)
[2016-06-13] MEDS: LEVOTHYROXINE 100 MCG TAB PO SCH (06:09)
[2016-06-13 06:10] LABS: ALANINE AMINOTRANSFERASE 39 IU/L (13-69); ALBUMIN/GLOBULIN RATIO 1.03; ALKALINE PHOSPHATASE 112 IU/L (42-121); GLUCOSE 81 mg/dl (70-220); LACTATE DEHYDROGENASE 1598 IU/L (313-618); TOTAL PROTEIN 5.3 g/dl (6.1-8.1); URIC ACID 1.9 mg/dl (3.1-7.9)
[2016-06-13 06:11] LABS: CALCIUM 8.5 mg/dl (8.4-10.2)
[2016-06-13 06:15] LABS: CONDITION 1; LH ANALYZER COMMENTS 1; SUSPECT 1
[2016-06-13 06:32] LABS: BLOOD UREA NITROGEN < 2 mg/dl (7-20)
[2016-06-13] MEDS: VANCOMYCIN 1.25 GM in SOD CHLORIDE 0.9% 250 ML IVPB SCH (06:36)
[2016-06-13 08:00] VITALS: BP 117/74; PULSE 96; RESP 18
[2016-06-13] MEDS: COLLAGENASE 30 GM TUBE TOP SCH (09:00)
[2016-06-13] MEDS: OCULAR LUBRICANT 3.5 GM OPH OINT BOTH EYES SCH (09:01)
[2016-06-13] MEDS: MUPIROCIN 2% 22 GM OINT TOP SCH ×2 (09:01→21:23)
[2016-06-13] MEDS: NYSTATIN SUSP 5 ML CUP PO SCH ×4 (09:01→21:22)
[2016-06-13] MEDS: ARTIFICIAL TEARS 15 ML OPH BOTH EYES SCH ×4 (09:01→21:23)
[2016-06-13] MEDS: ACYCLOVIR 400 MG TAB PO SCH ×2 (09:01→21:22)
[2016-06-13] MEDS: GABAPENTIN 100 MG CAP PO SCH ×3 (09:01→21:22)
[2016-06-13] MEDS: ALLOPURINOL 300 MG TAB PO SCH (09:01)
[2016-06-13] MEDS: SOD CHLORIDE 0.9% 1,000 ML IV SCH ×2 (10:17→21:23)
[2016-06-13 10:37] LABS: EOSINOPHILS # 0.1 10^3/ul (0.0-0.5); LYMPHOCYTES # 0.3 10^3/ul (0.8-2.9); MONOCYTE # 0.7 10^3/ul (0.3-0.9); MYELOCYTES # 0.1; NEUTROPHIL # 5.8 10^3/ul (1.6-7.5); PLATELET ESTIMATE PLT APPEAR DECREASED
[2016-06-13] MEDS ORDERED: VANCOMYCIN 1 GM in NS 250 ML IVPB SCH (14:00)
[2016-06-13] MEDS: ENOXAPARIN 30 MG/0.3 ML SYG SC SCH (15:12)
--- NOTE | 2016-06-13 15:16 | CONS ---
Date/Time of Note Date/Time of Note DATE: 06/13/16 TIME: 15:15 Assessment/Plan Assessment/Plan Chief Complaint/Hosp Course 56 yo female with massive neck mass causing tracheal compression and airway compromise s/p tracheostomy placement. 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 Pt was given cycle 1A and 1B of R HyperCVAD but had only a partial response to therapy and severe side effects. We have thus changed her chemotherapy regimen. She is now being admitted for cycle 1 of R-CODOX-M. Problems: Additional Assessment/Plan # Burkitt's lymphoma -continue with cycle 1 R CODOX -M. today is day 11 -Rituximab (Rituxan) as follows: * Cycle 1: 375 mg/m2 (660mg) IV on Day 1 -Cyclophosphamide (Cytoxan) 800 mg/m2 ( 1415mg) IV once per day on days 1 & 2 -Vincristine (Oncovin) 1.0 mg (dose reduced for neuropathy) days 1 & 15 . next dose due on 06/17 -Doxorubicin (Adriamycin) 50 mg/m2 (88mg) IV once on day 1 -Methotrexate (MTX) 100mg/m2 (175mg) IV over 1 hour then 900mg/m2 (1590mg) over 23 hours on day 15. will start Na HCo3 prior to MTX infusion and only start MTX once Urine Ph > 7.0. Leucovorin 25mg IV q 4 hours will start 36 hours after MTX starts until MTX level is < 0.05. next dose due on 06/16 # Neutropenic fever -pt is now afebrile -cont Neupogen 480mcg q day -continue antibiotics. will consult Dr. 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 all steroids should be discontinued for now unless they are part of the chemotherapy regimen -continue to work with physical therapy. 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 -uric acid level ok, 1.9 today -will continue to monitor LDH Approximately 40 min were spent at patient;s bedside and in coordination of her care Consultation Date/Type/Reason Admit Date/Time Jun 02, 2016 at 15:10 Initial Consult Date 06/02/16 Type of Consultation: Hematology Reason for Consultation STAGE IIB burkitts lymphoma Referring Provider: TELLY SOLANO MD 24 HR Interval Summary Free Text/Dictation pt is doing well. c/o nausea controlled with antiemetic medications Exam/Review of Systems Vital Signs Vitals Vital Signs Date Time Temp Pulse Resp B/P Pulse Ox O2 Delivery O2 Flow Rate FiO2 06/13/16 14:10 98 18 97 Aerosol 5.0 28 06/13/16 08:00 99.0 117/74 Intake and Output 06/12/16 06/12/16 06/13/16 15:00 23:00 07:00 Intake Total 350 ml 961.6 ml 1240 ml Output Total 700 ml 1300 ml Balance 350 ml 261.6 ml -60 ml Exam Constitutional: alert, oriented Psych: no complaints Head: normocephalic Eyes: nl conjunctiva ENMT: nl external ears & nose Neck: other (trach in place) Respiratory: clear to auscultation, normal air movement Cardiovascular: nl pulses, regular rate and rhythm Gastrointestinal: soft Musculoskeletal: nl extremities to inspection, nl gait and stance Extremities: normal pulses Results Result Diagram: 06/13/16 0505 06/13/16 0505 Results 24 hrs Laboratory Tests Test 06/13/16 05:05 Alanine Aminotransferase (ALT/SGPT) 39 Albumin 2.7 L Albumin/Globulin Ratio 1.03 Alkaline Phosphatase 112 Anion Gap 12 Aspartate Amino Transf (AST/SGOT) 26 Band Neutrophils % 24.0 H Blood Morphology Comment Blood Urea Nitrogen < 2 L Calcium Level 8.5 Carbon Dioxide Level 29 Chloride Level 106 Creatinine 0.30 L Differential Comment MANUAL DIFF Direct Bilirubin 0.00 Eosinophils # 0.1 Eosinophils % 1.0 Globulin 2.60 Glucose Level 81 Hematocrit 28.9 L Hemoglobin 10.0 L Indirect Bilirubin 0.3 Lactate Dehydrogenase 1598 #H Lymphocytes # 0.3 L Lymphocytes % 3.0 L Mean Corpuscular Hemoglobin 29.3 Mean Corpuscular Hemoglobin Concent 34.5 Mean Corpuscular Volume 84.9 Mean Platelet Volume 7.8 Metamyelocytes # 0.2 Metamyelocytes % 2.0 H Monocytes # 0.7 Monocytes % 7.0 Myelocytes # 0.1 Myelocytes % 1.0 H Neutrophils # 5.8 Neutrophils % 60.0 Platelet Count 38 L Platelet Estimate PLT APPEAR DECREASED Potassium Level 3.7 Promyelocytes # 0.2 Promyelocytes % 2.0 H Red Blood Count 3.40 L Red Cell Distribution Width 16.6 H Sodium Level 143 Total Bilirubin 0.3 Total Protein 5.3 L Uric Acid 1.9 L Vancomycin Level Trough 18.9 White Blood Count 9.7 # Medications Medications Current Medications Sodium Chloride (NS) 1,000 ml @ 100 mls/hr Q10H IV Last administered on at 10:17; Admin Dose 100 MLS/HR; Start 06/02/16 at 14:30 Acyclovir 400 mg 400 mg BID PO Last administered on 06/13/16at 09:01; Admin Dose 400 MG; Start 06/02/16 at 14:30 Methotrexate 175 mg/Sodium Chloride 250 ml @ 250 mls/hr ONCE IV ; Start at 03:00; Stop 06/16/16 at 03:59 Methotrexate 1590 mg/Sodium Chloride 1,000 ml @ 43.478 mls/ hr Q23H IV ; Start 06/16/16 at 04:00; Stop 06/17/16 at 02:59 Ondansetron HCl/ Dexamethasone/ Diphenhydramine HCl/Dextrose (Zofran Inj/ Decadron/Benadryl/ D5W) 59.5 ml @ 120 mls/hr ONCE IV ; Start 06/16/16 at 02:00 ; Stop 06/16/16 at 02:30 Diphenhydramine HCl (Benadryl) 25 mg Q4H PRN IV ALLERGIC REACTION Last administered on 06/06/16at 20:26; Admin Dose 25 MG; Start 06/02/16 at 18:30 Dexamethasone 10 mg 10 mg Q4H PRN IV ALLERGIC REACTION; Start 06/02/16 at 18: 30 Leucovorin Calcium/Dextrose (Leucovorin Calcium Inj/D5W) 50 ml @ 50 mls/hr Q6H IV ; Start 06/17/16 at 15:00 Fluconazole 100 mg 100 mg DAILY PO Last administered on 06/08/16at 09:58; Admin Dose 100 MG; Start 06/03/16 at 09:00; Status Future Hold Ondansetron HCl/ Sodium Chloride (Zofran Inj/NS) 54 ml @ 216 mls/hr Q6H PRN IV NAUSEA AND/OR VOMITING; Start 06/02/16 at 18:30 Ondansetron HCl (Zofran Inj) 4 mg Q6H PRN IV NAUSEA AND/OR VOMITING Last administered on 06/12/16at 08:11; Admin Dose 4 MG; Start 06/03/16 at 17:00 Acetaminophen (Tylenol Tab) 650 mg Q6H PRN PO PAIN LEVEL 1-3 OR FEVER Last administered on 06/11/16at 21:50; Admin Dose 650 MG; Start 06/03/16 at 17:00 Acetaminophen (Tylenol Supp) 650 mg Q6H PRN [place] PAIN LEVEL 1-3 OR FEVER Last administered on 06/09/16at 03:37; Admin Dose 650 MG; Start 06/03/16 at 17:00 Docusate Sodium (Colace) 100 mg Q12H PRN PO CONSTIPATION; Start 06/03/16 at 17 :00 Magnesium Hydroxide (Milk Of Mag) 30 ml DAILY PRN PO CONSTIPATION; Start 06/03 at 17:00 Bisacodyl (Dulcolax) 5 mg DAILY PRN PO CONSTIPATION; Start 06/03/16 at 17:00 Bisacodyl (Dulcolax Supp) 10 mg DAILY PRN [place] CONSTIPATION; Start 06/03/16 at 17:00 Sodium Biphosphate/ Sodium Phosphate (Fleet Enema) 133 ml DAILY PRN [place] CONSTIPATION; Start 06/03/16 at 17:00 Enoxaparin Sodium (Lovenox) 30 mg DAILY SC Last administered on 06/12/16at 08: 27; Admin Dose 30 MG; Start 06/04/16 at 09:00; Status Future Hold Allopurinol (Zyloprim) 300 mg DAILY PO Last administered on 06/13/16at 09:01; Admin Dose 300 MG; Start 06/04/16 at 09:00 Eye Lubricant (Artificial Tears Oph) 2 drop QID BOTH EYES Last administered on 06/13/16at 13:06; Admin Dose 2 DROP; Start 06/03/16 at 21:00 Eye Lubricant (Akwa Oint) 1 applic DAILY BOTH EYES Last administered on at 09:01; Admin Dose 1 APPLIC; Start 06/04/16 at 09:00 Gabapentin (Neurontin) 200 mg TID PO Last administered on 06/13/16at 13:06; Admin Dose 200 MG; Start 06/03/16 at 21:00 Levothyroxine Sodium (Synthroid) 100 mcg DAILY@06 PO Last administered on 06/13at 06:09; Admin Dose 100 MCG; Start 06/04/16 at 06:00 Nystatin 5 ml 5 ml QID PO Last administered on 06/13/16at 13:05; Admin Dose 5 ML; Start 06/03/16 at 21:00 Vincristine Sulfate/Sodium Chloride (Oncovin/NS) 51 ml @ 102 mls/hr 05 IV ; Start 06/17/16 at 05:00; Stop 06/17/16 at 05:29 Mupirocin (Bactroban) 1 applic BID TOP Last administered on 06/13/16at 09:01; Admin Dose 1 APPLIC; Start 06/04/16 at 21:00 Pantoprazole (Protonix Iv) 40 mg DAILY@06 IV Last administered on 06/13/16at 05 :10; Admin Dose 40 MG; Start 06/09/16 at 06:00 Lorazepam 1 mg 1 mg Q6H PRN IV AGITATION/ANXIETY Last administered on at 18:38; Admin Dose 1 MG; Start 06/08/16 at 18:00 Fluconazole 100 ml @ 100 mls/hr Q24H IVPB Last administered on 06/13/16at 05: 05; Admin Dose 100 MLS/HR; Start 06/09/16 at 05:30 Filgrastim/ Dextrose (Neupogen/D5W) 51.6 ml @ 103.2 mls/ hr DAILY@17 IVPB Last administered on 06/12/16at 17:46; Admin Dose 103.2 MLS/HR; Start 06/09/16 at 17:00 Acetaminophen/ Hydrocodone Bitart ([place] (5/325)) 1 tab Q6H PRN PO PAIN Last administered on 06/11/16at 17:38; Admin Dose 1 TAB; Start 06/11/16 at 17:30 Collagenase (Santyl) 1 applic DAILY TOP ; Start 06/12/16 at 09:00 Trimethoprim/ Sulfamethoxazole (Bactrim (Ds)) 1 tab BID PO ; Start 06/13/16 at 21:00 CHANDRIKA MERLOS M.D. Jun 13, 2016 15:16
--- NOTE | 2016-06-13 16:24 | CONS ---
Date/Time of Note Date/Time of Note DATE: 06/13/16 TIME: 16:23 Consult Date/Type/Reason Admit Date/Time Jun 02, 2016 at 15:10 Initial Consult Date 06/02/16 Type of Consultation: ID Ordering Provider: TELLY SOLANO MD Subjective alert, c/o nausea, s/p vomiting last night, no appetite, no fevers, family at bedside, nad Objective Vital Signs Date Time Temp Pulse Resp B/P Pulse Ox O2 Delivery O2 Flow Rate FiO2 06/13/16 14:10 98 18 97 Aerosol 5.0 28 06/13/16 08:00 99.0 117/74 Intake and Output 06/12/16 06/12/16 06/13/16 15:00 23:00 07:00 Intake Total 350 ml 961.6 ml 1240 ml Output Total 700 ml 1300 ml Balance 350 ml 261.6 ml -60 ml Results/Medications Result Diagram: 06/13/16 0505 06/13/16 0505 Results 24 hrs Laboratory Tests Test 06/13/16 05:05 Alanine Aminotransferase (ALT/SGPT) 39 Albumin 2.7 L Albumin/Globulin Ratio 1.03 Alkaline Phosphatase 112 Anion Gap 12 Aspartate Amino Transf (AST/SGOT) 26 Band Neutrophils % 24.0 H Blood Morphology Comment Blood Urea Nitrogen < 2 L Calcium Level 8.5 Carbon Dioxide Level 29 Chloride Level 106 Creatinine 0.30 L Differential Comment MANUAL DIFF Direct Bilirubin 0.00 Eosinophils # 0.1 Eosinophils % 1.0 Globulin 2.60 Glucose Level 81 Hematocrit 28.9 L Hemoglobin 10.0 L Indirect Bilirubin 0.3 Lactate Dehydrogenase 1598 #H Lymphocytes # 0.3 L Lymphocytes % 3.0 L Mean Corpuscular Hemoglobin 29.3 Mean Corpuscular Hemoglobin Concent 34.5 Mean Corpuscular Volume 84.9 Mean Platelet Volume 7.8 Metamyelocytes # 0.2 Metamyelocytes % 2.0 H Monocytes # 0.7 Monocytes % 7.0 Myelocytes # 0.1 Myelocytes % 1.0 H Neutrophils # 5.8 Neutrophils % 60.0 Platelet Count 38 L Platelet Estimate PLT APPEAR DECREASED Potassium Level 3.7 Promyelocytes # 0.2 Promyelocytes % 2.0 H Red Blood Count 3.40 L Red Cell Distribution Width 16.6 H Sodium Level 143 Total Bilirubin 0.3 Total Protein 5.3 L Uric Acid 1.9 L Vancomycin Level Trough 18.9 White Blood Count 9.7 # Medications Current Medications Sodium Chloride (NS) 1,000 ml @ 100 mls/hr Q10H IV Last administered on at 10:17; Admin Dose 100 MLS/HR; Start 06/02/16 at 14:30 Acyclovir 400 mg 400 mg BID PO Last administered on 06/13/16at 09:01; Admin Dose 400 MG; Start 06/02/16 at 14:30 Methotrexate 175 mg/Sodium Chloride 250 ml @ 250 mls/hr ONCE IV ; Start at 03:00; Stop 06/16/16 at 03:59 Methotrexate 1590 mg/Sodium Chloride 1,000 ml @ 43.478 mls/ hr Q23H IV ; Start 06/16/16 at 04:00; Stop 06/17/16 at 02:59 Ondansetron HCl/ Dexamethasone/ Diphenhydramine HCl/Dextrose (Zofran Inj/ Decadron/Benadryl/ D5W) 59.5 ml @ 120 mls/hr ONCE IV ; Start 06/16/16 at 02:00 ; Stop 06/16/16 at 02:30 Diphenhydramine HCl (Benadryl) 25 mg Q4H PRN IV ALLERGIC REACTION Last administered on 06/06/16at 20:26; Admin Dose 25 MG; Start 06/02/16 at 18:30 Dexamethasone 10 mg 10 mg Q4H PRN IV ALLERGIC REACTION; Start 06/02/16 at 18: 30 Leucovorin Calcium/Dextrose (Leucovorin Calcium Inj/D5W) 50 ml @ 50 mls/hr Q6H IV ; Start 06/17/16 at 15:00 Fluconazole 100 mg 100 mg DAILY PO Last administered on 06/08/16at 09:58; Admin Dose 100 MG; Start 06/03/16 at 09:00; Status Future Hold Ondansetron HCl/ Sodium Chloride (Zofran Inj/NS) 54 ml @ 216 mls/hr Q6H PRN IV NAUSEA AND/OR VOMITING; Start 06/02/16 at 18:30 Ondansetron HCl (Zofran Inj) 4 mg Q6H PRN IV NAUSEA AND/OR VOMITING Last administered on 06/12/16at 08:11; Admin Dose 4 MG; Start 06/03/16 at 17:00 Acetaminophen (Tylenol Tab) 650 mg Q6H PRN PO PAIN LEVEL 1-3 OR FEVER Last administered on 06/11/16at 21:50; Admin Dose 650 MG; Start 06/03/16 at 17:00 Acetaminophen (Tylenol Supp) 650 mg Q6H PRN [place] PAIN LEVEL 1-3 OR FEVER Last administered on 06/09/16at 03:37; Admin Dose 650 MG; Start 06/03/16 at 17:00 Docusate Sodium (Colace) 100 mg Q12H PRN PO CONSTIPATION; Start 06/03/16 at 17 :00 Magnesium Hydroxide (Milk Of Mag) 30 ml DAILY PRN PO CONSTIPATION; Start 06/03 at 17:00 Bisacodyl (Dulcolax) 5 mg DAILY PRN PO CONSTIPATION; Start 06/03/16 at 17:00 Bisacodyl (Dulcolax Supp) 10 mg DAILY PRN [place] CONSTIPATION; Start 06/03/16 at 17:00 Sodium Biphosphate/ Sodium Phosphate (Fleet Enema) 133 ml DAILY PRN [place] CONSTIPATION; Start 06/03/16 at 17:00 Enoxaparin Sodium (Lovenox) 30 mg DAILY SC Last administered on 06/12/16at 08: 27; Admin Dose 30 MG; Start 06/04/16 at 09:00; Status Future Hold Allopurinol (Zyloprim) 300 mg DAILY PO Last administered on 06/13/16at 09:01; Admin Dose 300 MG; Start 06/04/16 at 09:00 Eye Lubricant (Artificial Tears Oph) 2 drop QID BOTH EYES Last administered on 06/13/16at 13:06; Admin Dose 2 DROP; Start 06/03/16 at 21:00 Eye Lubricant ([place] Oint) 1 applic DAILY BOTH EYES Last administered on at 09:01; Admin Dose 1 APPLIC; Start 06/04/16 at 09:00 Gabapentin (Neurontin) 200 mg TID PO Last administered on 06/13/16at 13:06; Admin Dose 200 MG; Start 06/03/16 at 21:00 Levothyroxine Sodium (Synthroid) 100 mcg DAILY@06 PO Last administered on 06/13at 06:09; Admin Dose 100 MCG; Start 06/04/16 at 06:00 Nystatin 5 ml 5 ml QID PO Last administered on 06/13/16at 13:05; Admin Dose 5 ML; Start 06/03/16 at 21:00 Vincristine Sulfate/Sodium Chloride (Oncovin/NS) 51 ml @ 102 mls/hr 05 IV ; Start 06/17/16 at 05:00; Stop 06/17/16 at 05:29 Mupirocin (Bactroban) 1 applic BID TOP Last administered on 06/13/16at 09:01; Admin Dose 1 APPLIC; Start 06/04/16 at 21:00 Pantoprazole (Protonix Iv) 40 mg DAILY@06 IV Last administered on 06/13/16at 05 :10; Admin Dose 40 MG; Start 06/09/16 at 06:00 Lorazepam 1 mg 1 mg Q6H PRN IV AGITATION/ANXIETY Last administered on at 18:38; Admin Dose 1 MG; Start 06/08/16 at 18:00 Fluconazole 100 ml @ 100 mls/hr Q24H IVPB Last administered on 06/13/16at 05: 05; Admin Dose 100 MLS/HR; Start 06/09/16 at 05:30 Filgrastim/ Dextrose (Neupogen/D5W) 51.6 ml @ 103.2 mls/ hr DAILY@17 IVPB Last administered on 06/12/16at 17:46; Admin Dose 103.2 MLS/HR; Start 06/09/16 at 17:00 Acetaminophen/ Hydrocodone Bitart ([place] (5/325)) 1 tab Q6H PRN PO PAIN Last administered on 06/11/16at 17:38; Admin Dose 1 TAB; Start 06/11/16 at 17:30 Collagenase (Santyl) 1 applic DAILY TOP ; Start 06/12/16 at 09:00 Trimethoprim/ Sulfamethoxazole (Bactrim (Ds)) 1 tab BID PO ; Start 06/13/16 at 21:00 Assessment/Plan Chief Complaint/Hosp Course MICROBIOLOGY: Blood cultures from 06/08/2016 grew coagulase-negative staph species. Repeat blood cultures negative. Nares swab/sputum cx positive for MRSA. INDWELLINGS: Trach and left upper extremity PICC line. ANTIMICROBIALS: 1. Vancomycin. 2. Imipenem. 3. Topical Bactroban to nares. 4. Fluconazole. 5. Acyclovir. PHYSICAL EXAMINATION: GENERAL: This is a well-developed, ill-appearing, middle-aged [place] woman who is alert, in no distress. HEENT: Head atraumatic, normocephalic. Sclerae anicteric. Buccal mucosa pink. NECK: Supple. Tracheostomy present. CHEST: Rise symmetrical. Breath sounds diminished to bases. HEART: S1, S2. ABDOMEN: Soft, bowel tones present. EXTREMITIES: Without cyanosis. ASSESSMENT: 1. S/p sepsis with high fevers likely secondary to neutropenia. 2. Coagulase-negative Staphylococcus bacteremia, likely contaminant. 3. Methicillin-resistant Staphylococcus aureus nares colonization. 4. Possible aspiration pneumonia===> sputum cx + MRSA. 5. Stage IIA Burkitt's lymphoma, getting chemotherapy. The next cycle on Thursday. 6. Respiratory failure, status post tracheostomy secondary to a neck mass causing tracheal compression and airway compromise, remains on trach collar. 7. Dysphagia. PLAN: Clinically stable, no fevers, repeat bld cultures negative, change abx to PO Bactrim, continue Bactroban to nares, Diflucan and Acyclovir. Oncology rec-s DW pt/staff Problems: RODRÍGUEZ ERAZO NP Jun 13, 2016 16:24
--- NOTE | 2016-06-13 16:31 | PN ---
Date/Time of Note Date/Time of Note DATE: 06/13/16 TIME: 16:29 Assessment/Plan VTE Prophylaxis VTE Prophylaxis Intervention: other Lines/Catheters IV Catheter Type (from Nrs): PICC Line Central line still needed: Yes Urinary Cath still in place: No Assessment/Plan Chief Complaint/Hosp Course IMPRESSION: The patient has Burkitt's lymphoma status post tracheostomy, status post thyroid mass, status post pancytopenia, abnormal liver function test. The patient has anemia.NEUTROPENIA S/P CHEMO, S/P RATE CLERK SEPSIS HYPOKALEMIA better PLAN PER DR MERLOS ANTIBIOTIC IV FLUID Problems: Subjective 24 Hr Interval Summary Respiratory: no complaints Cardiovascular: no complaints Exam/Review of Systems Vital Signs Vitals Vital Signs Date Time Temp Pulse Resp B/P Pulse Ox O2 Delivery O2 Flow Rate FiO2 06/13/16 14:10 98 18 97 Aerosol 5.0 28 06/13/16 08:00 99.0 117/74 Intake and Output 06/12/16 06/12/16 06/13/16 15:00 23:00 07:00 Intake Total 350 ml 961.6 ml 1240 ml Output Total 700 ml 1300 ml Balance 350 ml 261.6 ml -60 ml Exam Neck: supple Respiratory: diminished breath sounds Cardiovascular: regular rate and rhythm Gastrointestinal: soft Musculoskeletal: nl extremities to inspection Results Result Diagram: 06/13/16 0505 06/13/16 0505 Results 24 hrs Laboratory Tests Test 06/13/16 05:05 Alanine Aminotransferase (ALT/SGPT) 39 Albumin 2.7 L Albumin/Globulin Ratio 1.03 Alkaline Phosphatase 112 Anion Gap 12 Aspartate Amino Transf (AST/SGOT) 26 Band Neutrophils % 24.0 H Blood Morphology Comment Blood Urea Nitrogen < 2 L Calcium Level 8.5 Carbon Dioxide Level 29 Chloride Level 106 Creatinine 0.30 L Differential Comment MANUAL DIFF Direct Bilirubin 0.00 Eosinophils # 0.1 Eosinophils % 1.0 Globulin 2.60 Glucose Level 81 Hematocrit 28.9 L Hemoglobin 10.0 L Indirect Bilirubin 0.3 Lactate Dehydrogenase 1598 #H Lymphocytes # 0.3 L Lymphocytes % 3.0 L Mean Corpuscular Hemoglobin 29.3 Mean Corpuscular Hemoglobin Concent 34.5 Mean Corpuscular Volume 84.9 Mean Platelet Volume 7.8 Metamyelocytes # 0.2 Metamyelocytes % 2.0 H Monocytes # 0.7 Monocytes % 7.0 Myelocytes # 0.1 Myelocytes % 1.0 H Neutrophils # 5.8 Neutrophils % 60.0 Platelet Count 38 L Platelet Estimate PLT APPEAR DECREASED Potassium Level 3.7 Promyelocytes # 0.2 Promyelocytes % 2.0 H Red Blood Count 3.40 L Red Cell Distribution Width 16.6 H Sodium Level 143 Total Bilirubin 0.3 Total Protein 5.3 L Uric Acid 1.9 L Vancomycin Level Trough 18.9 White Blood Count 9.7 # Medications Medications Current Medications Sodium Chloride (NS) 1,000 ml @ 100 mls/hr Q10H IV Last administered on at 10:17; Admin Dose 100 MLS/HR; Start 06/02/16 at 14:30 Acyclovir 400 mg 400 mg BID PO Last administered on 06/13/16at 09:01; Admin Dose 400 MG; Start 06/02/16 at 14:30 Methotrexate 175 mg/Sodium Chloride 250 ml @ 250 mls/hr ONCE IV ; Start at 03:00; Stop 06/16/16 at 03:59 Methotrexate 1590 mg/Sodium Chloride 1,000 ml @ 43.478 mls/ hr Q23H IV ; Start 06/16/16 at 04:00; Stop 06/17/16 at 02:59 Ondansetron HCl/ Dexamethasone/ Diphenhydramine HCl/Dextrose (Zofran Inj/ Decadron/Benadryl/ D5W) 59.5 ml @ 120 mls/hr ONCE IV ; Start 06/16/16 at 02:00 ; Stop 06/16/16 at 02:30 Diphenhydramine HCl (Benadryl) 25 mg Q4H PRN IV ALLERGIC REACTION Last administered on 06/06/16at 20:26; Admin Dose 25 MG; Start 06/02/16 at 18:30 Dexamethasone 10 mg 10 mg Q4H PRN IV ALLERGIC REACTION; Start 06/02/16 at 18: 30 Leucovorin Calcium/Dextrose (Leucovorin Calcium Inj/D5W) 50 ml @ 50 mls/hr Q6H IV ; Start 06/17/16 at 15:00 Fluconazole 100 mg 100 mg DAILY PO Last administered on 06/08/16at 09:58; Admin Dose 100 MG; Start 06/03/16 at 09:00; Status Future Hold Ondansetron HCl/ Sodium Chloride (Zofran Inj/NS) 54 ml @ 216 mls/hr Q6H PRN IV NAUSEA AND/OR VOMITING; Start 06/02/16 at 18:30 Ondansetron HCl (Zofran Inj) 4 mg Q6H PRN IV NAUSEA AND/OR VOMITING Last administered on 06/12/16at 08:11; Admin Dose 4 MG; Start 06/03/16 at 17:00 Acetaminophen (Tylenol Tab) 650 mg Q6H PRN PO PAIN LEVEL 1-3 OR FEVER Last administered on 06/11/16at 21:50; Admin Dose 650 MG; Start 06/03/16 at 17:00 Acetaminophen (Tylenol Supp) 650 mg Q6H PRN [place] PAIN LEVEL 1-3 OR FEVER Last administered on 06/09/16at 03:37; Admin Dose 650 MG; Start 06/03/16 at 17:00 Docusate Sodium (Colace) 100 mg Q12H PRN PO CONSTIPATION; Start 06/03/16 at 17 :00 Magnesium Hydroxide (Milk Of Mag) 30 ml DAILY PRN PO CONSTIPATION; Start 06/03 at 17:00 Bisacodyl (Dulcolax) 5 mg DAILY PRN PO CONSTIPATION; Start 06/03/16 at 17:00 Bisacodyl (Dulcolax Supp) 10 mg DAILY PRN [place] CONSTIPATION; Start 06/03/16 at 17:00 Sodium Biphosphate/ Sodium Phosphate (Fleet Enema) 133 ml DAILY PRN NE CONSTIPATION; Start 06/03/16 at 17:00 Enoxaparin Sodium (Lovenox) 30 mg DAILY SC Last administered on 06/12/16at 08: 27; Admin Dose 30 MG; Start 06/04/16 at 09:00; Status Future Hold Allopurinol (Zyloprim) 300 mg DAILY PO Last administered on 06/13/16at 09:01; Admin Dose 300 MG; Start 06/04/16 at 09:00 Eye Lubricant (Artificial Tears Oph) 2 drop QID BOTH EYES Last administered on 06/13/16at 13:06; Admin Dose 2 DROP; Start 06/03/16 at 21:00 Eye Lubricant (Akwa Oint) 1 applic DAILY BOTH EYES Last administered on at 09:01; Admin Dose 1 APPLIC; Start 06/04/16 at 09:00 Gabapentin (Neurontin) 200 mg TID PO Last administered on 06/13/16at 13:06; Admin Dose 200 MG; Start 06/03/16 at 21:00 Levothyroxine Sodium (Synthroid) 100 mcg DAILY@06 PO Last administered on 06/13at 06:09; Admin Dose 100 MCG; Start 06/04/16 at 06:00 Nystatin 5 ml 5 ml QID PO Last administered on 06/13/16at 13:05; Admin Dose 5 ML; Start 06/03/16 at 21:00 Vincristine Sulfate/Sodium Chloride (Oncovin/NS) 51 ml @ 102 mls/hr 05 IV ; Start 06/17/16 at 05:00; Stop 06/17/16 at 05:29 Mupirocin (Bactroban) 1 applic BID TOP Last administered on 06/13/16at 09:01; Admin Dose 1 APPLIC; Start 06/04/16 at 21:00 Pantoprazole (Protonix Iv) 40 mg DAILY@06 IV Last administered on 06/13/16at 05 :10; Admin Dose 40 MG; Start 06/09/16 at 06:00 Lorazepam 1 mg 1 mg Q6H PRN IV AGITATION/ANXIETY Last administered on at 18:38; Admin Dose 1 MG; Start 06/08/16 at 18:00 Fluconazole 100 ml @ 100 mls/hr Q24H IVPB Last administered on 06/13/16at 05: 05; Admin Dose 100 MLS/HR; Start 06/09/16 at 05:30 Filgrastim/ Dextrose (Neupogen/D5W) 51.6 ml @ 103.2 mls/ hr DAILY@17 IVPB Last administered on 06/12/16at 17:46; Admin Dose 103.2 MLS/HR; Start 06/09/16 at 17:00 Acetaminophen/ Hydrocodone Bitart ([place] (5/325)) 1 tab Q6H PRN PO PAIN Last administered on 06/11/16at 17:38; Admin Dose 1 TAB; Start 06/11/16 at 17:30 Collagenase (Santyl) 1 applic DAILY TOP ; Start 06/12/16 at 09:00 Trimethoprim/ Sulfamethoxazole (Bactrim (Ds)) 1 tab BID PO ; Start 06/13/16 at 21:00 GUERLINE SULLIVAN MD Jun 13, 2016 16:31
[2016-06-13] MEDS: DEXTROSE 5% IVPB SCH (17:24)
[2016-06-13] MEDS: FILGRASTIM IVPB SCH (17:24)
[2016-06-13 20:00] VITALS: BP 135/76; PULSE 97; RESP 18
[2016-06-13] MEDS: TRIMETHOPRIM/SULFAMETHOX (DS) TAB PO SCH (21:22)
[2016-06-14] MEDS: ALBUTEROL/IPRATROPIUM (NEB) 3 ML AMP HHN SCH ×6 (00:36→20:27)
[2016-06-14] MEDS: PANTOPRAZOLE 40 MG INJ IV SCH (05:58)
[2016-06-14] MEDS: FLUCONAZOLE 200 MG/NS (PMX) 100 ML IVPB SCH (05:58)
[2016-06-14] MEDS: LEVOTHYROXINE 100 MCG TAB PO SCH ×2 (05:59→06:00)
[2016-06-14] MEDS: SOD CHLORIDE 0.9% 1,000 ML IV SCH ×2 (06:00→13:30)
[2016-06-14 06:02] LABS: HEMATOCRIT 30.2 % (37.0-47.0); HEMOGLOBIN 10.4 g/dl (12.0-16.0); MEAN CORPUSCULAR HGB CONC 34.2 g/dl (32.0-37.0); MEAN CORPUSCULAR VOLUME 84.7 fl (82.0-101.0); PLATELET COUNT 38 10^3/UL (140-440); RED BLOOD COUNT 3.57 10^6/ul (4.20-5.40); RED CELL DISTRIBUTION WIDTH 16.1 % (11.5-14.5); UNCORRECTED WBC 16.9 10^3/ul (4.8-10.8); WHITE BLOOD COUNT 16.9 10^3/ul (4.8-10.8)
[2016-06-14 06:27] LABS: ALBUMIN 2.8 g/dl (3.3-4.9); CHLORIDE 100 mmol/L (97-110)
[2016-06-14 06:28] LABS: SODIUM 140 mmol/L (135-144)
[2016-06-14 06:30] LABS: ALANINE AMINOTRANSFERASE 42 IU/L (13-69); ALBUMIN/GLOBULIN RATIO 1.07; ALKALINE PHOSPHATASE 140 IU/L (42-121); ANION GAP 12 (8-16); ASPARTATE AMINO TRANSFERASE 38 IU/L (15-46); BILIRUBIN,INDIRECT 0.3 mg/dl (0-1.1); BILIRUBIN,TOTAL 0.3 mg/dl (0.2-1.3); CARBON DIOXIDE 31 mmol/L (21-31); CREATININE 0.32 mg/dl (0.44-1.00); GLUCOSE 87 mg/dl (70-220); LACTATE DEHYDROGENASE 1900 IU/L (313-618); TOTAL PROTEIN 5.4 g/dl (6.1-8.1)
[2016-06-14 06:31] LABS: BLOOD UREA NITROGEN < 2 mg/dl (7-20); CALCIUM 8.5 mg/dl (8.4-10.2); URIC ACID 1.4 mg/dl (3.1-7.9)
[2016-06-14 07:09] LABS: CONDITION 1; LH ANALYZER COMMENTS 1; MEAN PLATELET VOLUME 8.2 fl (7.4-10.4); SUSPECT 1
[2016-06-14 08:00] VITALS: BP 118/61; PULSE 98; RESP 24
[2016-06-14] MEDS: GABAPENTIN 100 MG CAP PO SCH ×3 (09:19→21:14)
[2016-06-14] MEDS: ACYCLOVIR 400 MG TAB PO SCH ×2 (09:19→21:14)
[2016-06-14] MEDS: ARTIFICIAL TEARS 15 ML OPH BOTH EYES SCH ×4 (09:19→21:13)
[2016-06-14] MEDS: ALLOPURINOL 300 MG TAB PO SCH (09:19)
[2016-06-14] MEDS: NYSTATIN SUSP 5 ML CUP PO SCH ×4 (09:19→21:14)
[2016-06-14] MEDS: TRIMETHOPRIM/SULFAMETHOX (DS) TAB PO SCH ×2 (09:19→21:14)
[2016-06-14] MEDS: MUPIROCIN 2% 22 GM OINT TOP SCH ×2 (09:20→21:16)
[2016-06-14] MEDS: OCULAR LUBRICANT 3.5 GM OPH OINT BOTH EYES SCH (09:20)
[2016-06-14] MEDS: COLLAGENASE 30 GM TUBE TOP SCH (09:23)
[2016-06-14] MEDS: ONDANSETRON 4 MG INJ IV PRN (09:33)
[2016-06-14 11:40] LABS: LYMPHOCYTES # 0.3 10^3/ul (0.8-2.9); MONOCYTE # 1.4 10^3/ul (0.3-0.9); MYELOCYTES # 0.8; NEUTROPHIL # 7.9 10^3/ul (1.6-7.5); PLATELET ESTIMATE PLT APPEAR DECREASED
--- NOTE | 2016-06-14 13:28 | PN ---
Date/Time of Note Date/Time of Note DATE: 06/14/16 TIME: 13:24 Assessment/Plan VTE Prophylaxis VTE Prophylaxis Intervention: SCD's Lines/Catheters IV Catheter Type (from Nrsg): PICC Line Central line still needed: Yes (IV access, Chemotherapy ) Urinary Cath still in place: No Assessment/Plan Assessment/Plan 1. S/p Neutropenic fever 2. Coagulase-negative Staphylococcus bacteremia, likely contaminant. 3. possible aspiration PNA 5. Stage IIA Burkitt's lymphoma, on chemotherapy 6. Respiratory failure, status post tracheostomy secondary to a neck mass causing tracheal compression and airway compromise, remains on trach collar. 7. Dysphagia. Plan: KCL replacement ID and oncolgoy following will montior electrolytes pain control SCD for DVT prophylaxis Subjective 24 Hr Interval Summary Free Text/Dictation pt doing ok, K low, platelets stable, afebrile Exam/Review of Systems Vital Signs Vitals Vital Signs Date Time Temp Pulse Resp B/P Pulse Ox O2 Delivery O2 Flow Rate FiO2 06/14/16 12:12 96 16 94 Aerosol 28 06/14/16 08:00 99.0 118/61 06/14/16 05:06 5.0 Intake and Output 06/13/16 06/13/16 06/14/16 15:00 23:00 07:00 Intake Total 500 ml 1381.6 ml 1000 ml Output Total 1300 ml 1900 ml Balance 500 ml 81.6 ml -900 ml Exam HEENT: Head atraumatic, normocephalic. Sclerae anicteric. Buccal mucosa pink. NECK: Supple. Tracheostomy present. CHEST: Rise symmetrical. Breath sounds diminished to bases. HEART: S1, S2. ABDOMEN: Soft, bowel tones present. EXTREMITIES: Without cyanosis. Results Result Diagram: 06/14/16 0458 06/14/16 0452 Results 24 hrs Laboratory Tests Test 06/14/16 04:52 06/14/16 04:58 Alanine Aminotransferase (ALT/SGPT) 42 Albumin 2.8 L Albumin/Globulin Ratio 1.07 Alkaline Phosphatase 140 H Anion Gap 12 Aspartate Amino Transf (AST/SGOT) 38 Blood Urea Nitrogen < 2 L Calcium Level 8.5 Carbon Dioxide Level 31 Chloride Level 100 Creatinine 0.32 L Direct Bilirubin 0.00 Globulin 2.60 Glucose Level 87 Indirect Bilirubin 0.3 Lactate Dehydrogenase 1900 H Potassium Level 3.0 L Sodium Level 140 Total Bilirubin 0.3 Total Protein 5.4 L Uric Acid 1.4 L Band Neutrophils % 24.0 H Blood Morphology Comment Hematocrit 30.2 L Hemoglobin 10.4 L Lymphocytes # 0.3 L Lymphocytes % 2.0 L Mean Corpuscular Hemoglobin 29.0 Mean Corpuscular Hemoglobin Concent 34.2 Mean Corpuscular Volume 84.7 Mean Platelet Volume 8.2 Metamyelocytes # 1.4 Metamyelocytes % 8.0 H Monocytes # 1.4 H Monocytes % 8.0 Myelocytes # 0.8 Myelocytes % 5.0 H Neutrophils # 7.9 H Neutrophils % 47.0 Platelet Count 38 L Platelet Estimate PLT APPEAR DECREASED Promyelocytes # 1.0 Promyelocytes % 6.0 H Red Blood Count 3.57 L Red Cell Distribution Width 16.1 H White Blood Count 16.9 #H Medications Medications Current Medications Sodium Chloride (NS) 1,000 ml @ 100 mls/hr Q10H IV Last administered on at 06:00; Admin Dose 100 MLS/HR; Start 06/02/16 at 14:30 Acyclovir 400 mg 400 mg BID PO Last administered on 06/14/16at 09:19; Admin Dose 400 MG; Start 06/02/16 at 14:30 Methotrexate 175 mg/Sodium Chloride 250 ml @ 250 mls/hr ONCE IV ; Start at 03:00; Stop 06/16/16 at 03:59 Methotrexate 1590 mg/Sodium Chloride 1,000 ml @ 43.478 mls/ hr Q23H IV ; Start 06/16/16 at 04:00; Stop 06/17/16 at 02:59 Ondansetron HCl/ Dexamethasone/ Diphenhydramine HCl/Dextrose (Zofran Inj/ Decadron/Benadryl/ D5W) 59.5 ml @ 120 mls/hr ONCE IV ; Start 06/16/16 at 02:00 ; Stop 06/16/16 at 02:30 Diphenhydramine HCl (Benadryl) 25 mg Q4H PRN IV ALLERGIC REACTION Last administered on 06/06/16at 20:26; Admin Dose 25 MG; Start 06/02/16 at 18:30 Dexamethasone 10 mg 10 mg Q4H PRN IV ALLERGIC REACTION; Start 06/02/16 at 18: 30 Leucovorin Calcium/Dextrose (Leucovorin Calcium Inj/D5W) 50 ml @ 50 mls/hr Q6H IV ; Start 06/17/16 at 15:00 Fluconazole 100 mg 100 mg DAILY PO Last administered on 06/08/16at 09:58; Admin Dose 100 MG; Start 06/03/16 at 09:00; Status Future Hold Ondansetron HCl/ Sodium Chloride (Zofran Inj/NS) 54 ml @ 216 mls/hr Q6H PRN IV NAUSEA AND/OR VOMITING; Start 06/02/16 at 18:30 Ondansetron HCl (Zofran Inj) 4 mg Q6H PRN IV NAUSEA AND/OR VOMITING Last administered on 06/14/16at 09:33; Admin Dose 4 MG; Start 06/03/16 at 17:00 Acetaminophen (Tylenol Tab) 650 mg Q6H PRN PO PAIN LEVEL 1-3 OR FEVER Last administered on 06/11/16at 21:50; Admin Dose 650 MG; Start 06/03/16 at 17:00 Acetaminophen (Tylenol Supp) 650 mg Q6H PRN [place] PAIN LEVEL 1-3 OR FEVER Last administered on 06/09/16at 03:37; Admin Dose 650 MG; Start 06/03/16 at 17:00 Docusate Sodium (Colace) 100 mg Q12H PRN PO CONSTIPATION; Start 06/03/16 at 17 :00 Magnesium Hydroxide (Milk Of Mag) 30 ml DAILY PRN PO CONSTIPATION; Start 06/03 at 17:00 Bisacodyl (Dulcolax) 5 mg DAILY PRN PO CONSTIPATION; Start 06/03/16 at 17:00 Bisacodyl (Dulcolax Supp) 10 mg DAILY PRN [place] CONSTIPATION; Start 06/03/16 at 17:00 Sodium Biphosphate/ Sodium Phosphate (Fleet Enema) 133 ml DAILY PRN [place] CONSTIPATION; Start 06/03/16 at 17:00 Enoxaparin Sodium (Lovenox) 30 mg DAILY SC Last administered on 06/12/16at 08: 27; Admin Dose 30 MG; Start 06/04/16 at 09:00; Status Future Hold Allopurinol (Zyloprim) 300 mg DAILY PO Last administered on 06/14/16at 09:19; Admin Dose 300 MG; Start 06/04/16 at 09:00 Eye Lubricant (Artificial Tears Oph) 2 drop QID BOTH EYES Last administered on 06/14/16 09:19; Admin Dose 2 DROP; Start 06/03/16 at 21:00 Eye Lubricant ([place] Oint) 1 applic DAILY BOTH EYES Last administered on at 09:20; Admin Dose 1 APPLIC; Start 06/04/16 at 09:00 Gabapentin (Neurontin) 200 mg TID PO Last administered on 06/14/16 09:19; Admin Dose 200 MG; Start 06/03/16 at 21:00 Levothyroxine Sodium (Synthroid) 100 mcg DAILY@06 PO Last administered on 06/13 06:09; Admin Dose 100 MCG; Start 06/04/16 at 06:00 Nystatin 5 ml 5 ml QID PO Last administered on 06/14/16 09:19; Admin Dose 5 ML; Start 06/03/16 at 21:00 Vincristine Sulfate/Sodium Chloride (Oncovin/NS) 51 ml @ 102 mls/hr 05 IV ; Start 06/17/16 at 05:00; Stop 06/17/16 at 05:29 Mupirocin (Bactroban) 1 applic BID TOP Last administered on 06/14/16 09:20; Admin Dose 1 APPLIC; Start 06/04/16 at 21:00 Pantoprazole (Protonix Iv) 40 mg DAILY@06 IV Last administered on 06/14/16at 05 :58; Admin Dose 40 MG; Start 06/09/16 at 06:00 Lorazepam 1 mg 1 mg Q6H PRN IV AGITATION/ANXIETY Last administered on at 18:38; Admin Dose 1 MG; Start 06/08/16 at 18:00 Fluconazole 100 ml @ 100 mls/hr Q24H IVPB Last administered on 06/14/16at 05: 58; Admin Dose 100 MLS/HR; Start 06/09/16 at 05:30 Filgrastim/ Dextrose (Neupogen/D5W) 51.6 ml @ 103.2 mls/ hr DAILY@17 IVPB Last administered on 06/13/16at 17:24; Admin Dose 103.2 MLS/HR; Start 06/09/16 at 17:00 Acetaminophen/ Hydrocodone Bitart ([place] (5/325)) 1 tab Q6H PRN PO PAIN Last administered on 06/11/16at 17:38; Admin Dose 1 TAB; Start 06/11/16 at 17:30 Collagenase (Santyl) 1 applic DAILY TOP Last administered on 06/14/16at 09:23; Admin Dose 1 APPLIC; Start 06/12/16 at 09:00 Trimethoprim/ Sulfamethoxazole (Bactrim (Ds)) 1 tab BID PO Last administered on 06/14/16 09:19; Admin Dose 1 TAB; Start 06/13/16 at 21:00 TELLY SOLANO MD Jun 14, 2016 13:28
--- NOTE | 2016-06-14 13:35 | PN ---
Date/Time of Note Date/Time of Note DATE: 06/14/16 TIME: 13:33 Assessment/Plan VTE Prophylaxis VTE Prophylaxis Intervention: contraindicated Lines/Catheters IV C[facility]ter Type (from [facility] PICC Line Central line still needed: Yes Urinary Cath still in place: No Assessment/Plan Assessment/Plan # Burkitt's lymphoma -continue with cycle 1 R CODOX -M -Rituximab (Rituxan) as follows: * Cycle 1: 375 mg/m2 (660mg) IV on Day 1 -Cyclophosphamide (Cytoxan) 800 mg/m2 ( 1415mg) IV once per day on days 1 & 2 -Vincristine (Oncovin) 1.0 mg (dose reduced for neuropathy) days 1 & 15 . next dose due on 06/17 -Doxorubicin (Adriamycin) 50 mg/m2 (88mg) IV once on day 1 -Methotrexate (MTX) 100mg/m2 (175mg) IV over 1 hour then 900mg/m2 (1590mg) over 23 hours on day 15. will start Na HCo3 prior to MTX infusion and only start MTX once Urine Ph > 7.0. Leucovorin 25mg IV q 4 hours will start 36 hours after MTX starts until MTX level is < 0.05. next dose due on 06/16 # Neutropenic fever -pt is now afebrile and will dc precautions -continue antibiotics. will consult Dr. 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 all steroids should be discontinued for now unless they are part of the chemotherapy regimen -continue to work with physical therapy. 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 -uric acid level ok -will continue to monitor LDH Subjective 24 Hr Interval Summary Subjective hx not possible: pt critical status Constitutional: no complaints Exam/Review of Systems Vital Signs Vitals Vital Signs Date Time Temp Pulse Resp B/P Pulse Ox O2 Delivery O2 Flow Rate FiO2 06/14/16 12:12 96 16 94 Aerosol 28 06/14/16 08:00 99.0 118/61 06/14/16 05:06 5.0 Intake and Output 06/13/16 06/13/16 06/14/16 15:00 23:00 07:00 Intake Total 500 ml 1381.6 ml 1000 ml Output Total 1300 ml 1900 ml Balance 500 ml 81.6 ml -900 ml Exam trach no bleeding Constitutional: alert, oriented Respiratory: normal air movement Cardiovascular: regular rate and rhythm Gastrointestinal: soft Results Result Diagram: 06/14/16 0458 06/14/16 0452 Results 24 hrs Laboratory Tests Test 06/14/16 04:52 06/14/16 04:58 Alanine Aminotransferase (ALT/SGPT) 42 Albumin 2.8 L Albumin/Globulin Ratio 1.07 Alkaline Phosphatase 140 H Anion Gap 12 Aspartate Amino Transf (AST/SGOT) 38 Blood Urea Nitrogen < 2 L Calcium Level 8.5 Carbon Dioxide Level 31 Chloride Level 100 Creatinine 0.32 L Direct Bilirubin 0.00 Globulin 2.60 Glucose Level 87 Indirect Bilirubin 0.3 Lactate Dehydrogenase 1900 H Potassium Level 3.0 L Sodium Level 140 Total Bilirubin 0.3 Total Protein 5.4 L Uric Acid 1.4 L Band Neutrophils % 24.0 H Blood Morphology Comment Hematocrit 30.2 L Hemoglobin 10.4 L Lymphocytes # 0.3 L Lymphocytes % 2.0 L Mean Corpuscular Hemoglobin 29.0 Mean Corpuscular Hemoglobin Concent 34.2 Mean Corpuscular Volume 84.7 Mean Platelet Volume 8.2 Metamyelocytes # 1.4 Metamyelocytes % 8.0 H Monocytes # 1.4 H Monocytes % 8.0 Myelocytes # 0.8 Myelocytes % 5.0 H Neutrophils # 7.9 H Neutrophils % 47.0 Platelet Count 38 L Platelet Estimate PLT APPEAR DECREASED Promyelocytes # 1.0 Promyelocytes % 6.0 H Red Blood Count 3.57 L Red Cell Distribution Width 16.1 H White Blood Count 16.9 #H Medications Medications Current Medications Sodium Chloride (NS) 1,000 ml @ 100 mls/hr Q10H IV Last administered on at 13:30; Admin Dose 100 MLS/HR; Start 06/02/16 at 14:30 Acyclovir 400 mg 400 mg BID PO Last administered on 06/14/16at 09:19; Admin Dose 400 MG; Start 06/02/16 at 14:30 Methotrexate 175 mg/Sodium Chloride 250 ml @ 250 mls/hr ONCE IV ; Start at 03:00; Stop 06/16/16 at 03:59 Methotrexate 1590 mg/Sodium Chloride 1,000 ml @ 43.478 mls/ hr Q23H IV ; Start 06/16/16 at 04:00; Stop 06/17/16 at 02:59 Ondansetron HCl/ Dexamethasone/ Diphenhydramine HCl/Dextrose (Zofran Inj/ Decadron/Benadryl/ D5W) 59.5 ml @ 120 mls/hr ONCE IV ; Start 06/16/16 at 02:00 ; Stop 06/16/16 at 02:30 Diphenhydramine HCl (Benadryl) 25 mg Q4H PRN IV ALLERGIC REACTION Last administered on 06/06/16at 20:26; Admin Dose 25 MG; Start 06/02/16 at 18:30 Dexamethasone 10 mg 10 mg Q4H PRN IV ALLERGIC REACTION; Start 06/02/16 at 18: 30 Leucovorin Calcium/Dextrose (Leucovorin Calcium Inj/D5W) 50 ml @ 50 mls/hr Q6H IV ; Start 06/17/16 at 15:00 Fluconazole 100 mg 100 mg DAILY PO Last administered on 06/08/16at 09:58; Admin Dose 100 MG; Start 06/03/16 at 09:00; Status Future Hold Ondansetron HCl/ Sodium Chloride (Zofran Inj/NS) 54 ml @ 216 mls/hr Q6H PRN IV NAUSEA AND/OR VOMITING; Start 06/02/16 at 18:30 Ondansetron HCl (Zofran Inj) 4 mg Q6H PRN IV NAUSEA AND/OR VOMITING Last administered on 06/14/16at 09:33; Admin Dose 4 MG; Start 06/03/16 at 17:00 Acetaminophen (Tylenol Tab) 650 mg Q6H PRN PO PAIN LEVEL 1-3 OR FEVER Last administered on 06/11/16at 21:50; Admin Dose 650 MG; Start 06/03/16 at 17:00 Acetaminophen (Tylenol Supp) 650 mg Q6H PRN [place] PAIN LEVEL 1-3 OR FEVER Last administered on 06/09/16at 03:37; Admin Dose 650 MG; Start 06/03/16 at 17:00 Docusate Sodium (Colace) 100 mg Q12H PRN PO CONSTIPATION; Start 06/03/16 at 17 :00 Magnesium Hydroxide (Milk Of Mag) 30 ml DAILY PRN PO CONSTIPATION; Start 06/03 at 17:00 Bisacodyl (Dulcolax) 5 mg DAILY PRN PO CONSTIPATION; Start 06/03/16 at 17:00 Bisacodyl (Dulcolax Supp) 10 mg DAILY PRN [place] CONSTIPATION; Start 06/03/16 at 17:00 Sodium Biphosphate/ Sodium Phosphate (Fleet Enema) 133 ml DAILY PRN [place] CONSTIPATION; Start 06/03/16 at 17:00 Enoxaparin Sodium (Lovenox) 30 mg DAILY SC Last administered on 06/12/16at 08: 27; Admin Dose 30 MG; Start 06/04/16 at 09:00; Status Future Hold Allopurinol (Zyloprim) 300 mg DAILY PO Last administered on 06/14/16at 09:19; Admin Dose 300 MG; Start 06/04/16 at 09:00 Eye Lubricant (Artificial Tears Oph) 2 drop QID BOTH EYES Last administered on 06/14/16 13:24; Admin Dose 2 DROP; Start 06/03/16 at 21:00 Eye Lubricant (Akwa Oint) 1 applic DAILY BOTH EYES Last administered on 09:20; Admin Dose 1 APPLIC; Start 06/04/16 at 09:00 Gabapentin (Neurontin) 200 mg TID PO Last administered on 06/14/16at 13:24; Admin Dose 200 MG; Start 06/03/16 at 21:00 Levothyroxine Sodium (Synthroid) 100 mcg DAILY@06 PO Last administered on 06/13at 06:09; Admin Dose 100 MCG; Start 06/04/16 at 06:00 Nystatin 5 ml 5 ml QID PO Last administered on 06/14/16at 13:24; Admin Dose 5 ML; Start 06/03/16 at 21:00 Vincristine Sulfate/Sodium Chloride (Oncovin/NS) 51 ml @ 102 mls/hr 05 IV ; Start 06/17/16 at 05:00; Stop 06/17/16 at 05:29 Mupirocin (Bactroban) 1 applic BID TOP Last administered on 06/14/16at 09:20; Admin Dose 1 APPLIC; Start 06/04/16 at 21:00 Pantoprazole (Protonix Iv) 40 mg DAILY@06 IV Last administered on 06/14/16at 05 :58; Admin Dose 40 MG; Start 06/09/16 at 06:00 Lorazepam 1 mg 1 mg Q6H PRN IV AGITATION/ANXIETY Last administered on at 18:38; Admin Dose 1 MG; Start 06/08/16 at 18:00 Fluconazole 100 ml @ 100 mls/hr Q24H IVPB Last administered on 06/14/16at 05: 58; Admin Dose 100 MLS/HR; Start 06/09/16 at 05:30 Filgrastim/ Dextrose (Neupogen/D5W) 51.6 ml @ 103.2 mls/ hr DAILY@17 IVPB Last administered on 06/13/16at 17:24; Admin Dose 103.2 MLS/HR; Start 06/09/16 at 17:00 Acetaminophen/ Hydrocodone Bitart ([place] (5/325)) 1 tab Q6H PRN PO PAIN Last administered on 06/11/16at 17:38; Admin Dose 1 TAB; Start 06/11/16 at 17:30 Collagenase (Santyl) 1 applic DAILY TOP Last administered on 06/14/16at 09:23; Admin Dose 1 APPLIC; Start 06/12/16 at 09:00 Trimethoprim/ Sulfamethoxazole 1 tab 1 tab BID PO Last administered on at 09:19; Admin Dose 1 TAB; Start 06/13/16 at 21:00 Potassium Chloride/Sodium Chloride (KCl/NS) 110 ml @ 55 mls/hr ONCE ONCE IVPB ; Start 06/14/16 at 15:00; Stop 06/14/16 at 16:59 SUAD FRANCO MD Jun 14, 2016 13:35
[2016-06-14] MEDS ORDERED: POTASSIUM CHLORIDE 20 MEQ in SOD CHLORIDE 0.9% 100 ML IVPB ONE (15:00)
[2016-06-14 15:30] VITALS: BP 122/75; PULSE 98; RESP 20
[2016-06-14] MEDS: DEXTROSE 5% IVPB SCH (17:00)
[2016-06-14] MEDS: FILGRASTIM IVPB SCH (17:00)
[2016-06-14 20:11] VITALS: BP 127/69; PULSE 102; RESP 18
--- NOTE | 2016-06-14 21:37 | CONS ---
Date/Time of Note Date/Time of Note DATE: 06/14/16 TIME: 21:35 Consult Date/Type/Reason Admit Date/Time Jun 02, 2016 at 15:10 Initial Consult Date 06/02/16 Type of Consultation: ID Ordering Provider: TELLY SOLANO MD Subjective no acute changes, no fevers, sleeping, nad Objective Vital Signs Date Time Temp Pulse Resp B/P Pulse Ox O2 Delivery O2 Flow Rate FiO2 06/14/16 20:30 5.0 28 06/14/16 20:30 98 18 Aerosol Mask 06/14/16 20:11 98.3 127/69 96 Intake and Output 06/13/16 06/13/16 06/14/16 15:00 23:00 07:00 Intake Total 500 ml 1381.6 ml 1000 ml Output Total 1300 ml 1900 ml Balance 500 ml 81.6 ml -900 ml Results/Medications Result Diagram: 06/14/16 0458 06/14/16 0452 Results 24 hrs Laboratory Tests Test 06/14/16 04:52 06/14/16 04:58 Alanine Aminotransferase (ALT/SGPT) 42 Albumin 2.8 L Albumin/Globulin Ratio 1.07 Alkaline Phosphatase 140 H Anion Gap 12 Aspartate Amino Transf (AST/SGOT) 38 Blood Urea Nitrogen < 2 L Calcium Level 8.5 Carbon Dioxide Level 31 Chloride Level 100 Creatinine 0.32 L Direct Bilirubin 0.00 Globulin 2.60 Glucose Level 87 Indirect Bilirubin 0.3 Lactate Dehydrogenase 1900 H Potassium Level 3.0 L Sodium Level 140 Total Bilirubin 0.3 Total Protein 5.4 L Uric Acid 1.4 L Band Neutrophils % 24.0 H Blood Morphology Comment Hematocrit 30.2 L Hemoglobin 10.4 L Lymphocytes # 0.3 L Lymphocytes % 2.0 L Mean Corpuscular Hemoglobin 29.0 Mean Corpuscular Hemoglobin Concent 34.2 Mean Corpuscular Volume 84.7 Mean Platelet Volume 8.2 Metamyelocytes # 1.4 Metamyelocytes % 8.0 H Monocytes # 1.4 H Monocytes % 8.0 Myelocytes # 0.8 Myelocytes % 5.0 H Neutrophils # 7.9 H Neutrophils % 47.0 Platelet Count 38 L Platelet Estimate PLT APPEAR DECREASED Promyelocytes # 1.0 Promyelocytes % 6.0 H Red Blood Count 3.57 L Red Cell Distribution Width 16.1 H White Blood Count 16.9 #H Medications Current Medications Sodium Chloride (NS) 1,000 ml @ 100 mls/hr Q10H IV Last administered on at 13:30; Admin Dose 100 MLS/HR; Start 06/02/16 at 14:30 Acyclovir 400 mg 400 mg BID PO Last administered on 06/14/16at 21:14; Admin Dose 400 MG; Start 06/02/16 at 14:30 Methotrexate 175 mg/Sodium Chloride 250 ml @ 250 mls/hr ONCE IV ; Start at 03:00; Stop 06/16/16 at 03:59 Methotrexate 1590 mg/Sodium Chloride 1,000 ml @ 43.478 mls/ hr Q23H IV ; Start 06/16/16 at 04:00; Stop 06/17/16 at 02:59 Ondansetron HCl/ Dexamethasone/ Diphenhydramine HCl/Dextrose (Zofran Inj/ Decadron/Benadryl/ D5W) 59.5 ml @ 120 mls/hr ONCE IV ; Start 06/16/16 at 02:00 ; Stop 06/16/16 at 02:30 Diphenhydramine HCl (Benadryl) 25 mg Q4H PRN IV ALLERGIC REACTION Last administered on 06/06/16at 20:26; Admin Dose 25 MG; Start 06/02/16 at 18:30 Dexamethasone 10 mg 10 mg Q4H PRN IV ALLERGIC REACTION; Start 06/02/16 at 18: 30 Leucovorin Calcium/Dextrose (Leucovorin Calcium Inj/D5W) 50 ml @ 50 mls/hr Q6H IV ; Start 06/17/16 at 15:00 Fluconazole 100 mg 100 mg DAILY PO Last administered on 06/08/16at 09:58; Admin Dose 100 MG; Start 06/03/16 at 09:00; Status Future Hold Ondansetron HCl/ Sodium Chloride (Zofran Inj/NS) 54 ml @ 216 mls/hr Q6H PRN IV NAUSEA AND/OR VOMITING; Start 06/02/16 at 18:30 Ondansetron HCl (Zofran Inj) 4 mg Q6H PRN IV NAUSEA AND/OR VOMITING Last administered on 06/14/16at 09:33; Admin Dose 4 MG; Start 06/03/16 at 17:00 Acetaminophen (Tylenol Tab) 650 mg Q6H PRN PO PAIN LEVEL 1-3 OR FEVER Last administered on 06/11/16at 21:50; Admin Dose 650 MG; Start 06/03/16 at 17:00 Acetaminophen (Tylenol Supp) 650 mg Q6H PRN [place] PAIN LEVEL 1-3 OR FEVER Last administered on 06/09/16at 03:37; Admin Dose 650 MG; Start 06/03/16 at 17:00 Docusate Sodium (Colace) 100 mg Q12H PRN PO CONSTIPATION; Start 06/03/16 at 17 :00 Magnesium Hydroxide (Milk Of Mag) 30 ml DAILY PRN PO CONSTIPATION; Start 06/03 at 17:00 Bisacodyl (Dulcolax) 5 mg DAILY PRN PO CONSTIPATION; Start 06/03/16 at 17:00 Bisacodyl (Dulcolax Supp) 10 mg DAILY PRN [place] CONSTIPATION; Start 06/03/16 at 17:00 Sodium Biphosphate/ Sodium Phosphate (Fleet Enema) 133 ml DAILY PRN [place] CONSTIPATION; Start 06/03/16 at 17:00 Enoxaparin Sodium (Lovenox) 30 mg DAILY SC Last administered on 06/12/16at 08: 27; Admin Dose 30 MG; Start 06/04/16 at 09:00; Status Future Hold Allopurinol (Zyloprim) 300 mg DAILY PO Last administered on 06/14/16at 09:19; Admin Dose 300 MG; Start 06/04/16 at 09:00 Eye Lubricant (Artificial Tears Oph) 2 drop QID BOTH EYES Last administered on 06/14/16 21:13; Admin Dose 2 DROP; Start 06/03/16 at 21:00 Eye Lubricant (Akwa Oint) 1 applic DAILY BOTH EYES Last administered on at 09:20; Admin Dose 1 APPLIC; Start 06/04/16 at 09:00 Gabapentin (Neurontin) 200 mg TID PO Last administered on 06/14/16 21:14; Admin Dose 200 MG; Start 06/03/16 at 21:00 Levothyroxine Sodium (Synthroid) 100 mcg DAILY@06 PO Last administered on 06/13at 06:09; Admin Dose 100 MCG; Start 06/04/16 at 06:00 Nystatin 5 ml 5 ml QID PO Last administered on 12/24/16at 21:14; Admin Dose 5 ML; Start 06/03/16 at 21:00 Vincristine Sulfate/Sodium Chloride (Oncovin/NS) 51 ml @ 102 mls/hr 05 IV ; Start 06/17/16 at 05:00; Stop 06/17/16 at 05:29 Mupirocin (Bactroban) 1 applic BID TOP Last administered on 06/14/16at 21:16; Admin Dose 1 APPLIC; Start 06/04/16 at 21:00 Pantoprazole (Protonix Iv) 40 mg DAILY@06 IV Last administered on 06/14/16 05 :58; Admin Dose 40 MG; Start 06/09/16 at 06:00 Lorazepam 1 mg 1 mg Q6H PRN IV AGITATION/ANXIETY Last administered on at 18:38; Admin Dose 1 MG; Start 06/08/16 at 18:00 Fluconazole 100 ml @ 100 mls/hr Q24H IVPB Last administered on 06/14/16at 05: 58; Admin Dose 100 MLS/HR; Start 06/09/16 at 05:30 Filgrastim/ Dextrose (Neupogen/D5W) 51.6 ml @ 103.2 mls/ hr DAILY@17 IVPB Last administered on 06/13/16at 17:24; Admin Dose 103.2 MLS/HR; Start 06/09/16 at 17:00 Acetaminophen/ Hydrocodone Bitart ([place] (5/325)) 1 tab Q6H PRN PO PAIN Last administered on 06/11/16at 17:38; Admin Dose 1 TAB; Start 06/11/16 at 17:30 Collagenase (Santyl) 1 applic DAILY TOP Last administered on 06/14/16at 09:23; Admin Dose 1 APPLIC; Start 06/12/16 at 09:00 Trimethoprim/ Sulfamethoxazole (Bactrim (Ds)) 1 tab BID PO Last administered on 06/14/16at 21:14; Admin Dose 1 TAB; Start 06/13/16 at 21:00 Assessment/Plan Chief Complaint/Hosp Course MICROBIOLOGY: Blood cultures from 06/08/2016 grew coagulase-negative staph species. Repeat blood cultures negative. Nares swab/sputum cx positive for MRSA. INDWELLINGS: Trach and left upper extremity PICC line. ANTIMICROBIALS: 1. Bactrinm 2. Topical Bactroban to nares. 3. Fluconazole. 4. Acyclovir. PHYSICAL EXAMINATION: GENERAL: This is a well-developed, ill-appearing, middle-aged Citizen Of [place] woman who is alert, in no distress. HEENT: Head atraumatic, normocephalic. Sclerae anicteric. Buccal mucosa pink. NECK: Supple. Tracheostomy present. CHEST: Rise symmetrical. Breath sounds diminished to bases. HEART: S1, S2. ABDOMEN: Soft, bowel tones present. EXTREMITIES: Without cyanosis. ASSESSMENT: 1. S/p sepsis with high fevers likely secondary to neutropenia. 2. Coagulase-negative Staphylococcus bacteremia, likely contaminant. 3. Methicillin-resistant Staphylococcus aureus nares colonization. 4. Possible aspiration pneumonia===> sputum cx + MRSA. 5. Stage IIA Burkitt's lymphoma, getting chemotherapy. The next cycle on Thursday. 6. Respiratory failure, status post tracheostomy secondary to a neck mass causing tracheal compression and airway compromise, remains on trach collar. 7. Dysphagia. PLAN: Clinically stable, no fevers, repeat bld cultures negative, continue abx/ Bactroban to nares, Diflucan and Acyclovir. Oncology rec-s [facility] staff Problems: RODRÍGUEZ ERAZO NP Jun 14, 2016 21:36
[2016-06-15] MEDS: ALBUTEROL/IPRATROPIUM (NEB) 3 ML AMP HHN SCH ×6 (01:34→20:12)
[2016-06-15] MEDS: SOD CHLORIDE 0.9% 1,000 ML IV SCH ×3 (02:54→22:30)
[2016-06-15] MEDS: PANTOPRAZOLE 40 MG INJ IV SCH (05:49)
[2016-06-15] MEDS: LEVOTHYROXINE 100 MCG TAB PO SCH (05:49)
[2016-06-15 05:56] LABS: ALBUMIN 2.7 g/dl (3.3-4.9)
[2016-06-15 05:57] LABS: POTASSIUM 3.2 mmol/L (3.5-5.1)
[2016-06-15 05:59] LABS: BILIRUBIN,INDIRECT 0.1 mg/dl (0-1.1); BILIRUBIN,TOTAL 0.1 mg/dl (0.2-1.3); CREATININE 0.37 mg/dl (0.44-1.00)
[2016-06-15 06:00] LABS: CALCIUM 8.5 mg/dl (8.4-10.2); TOTAL PROTEIN 5.4 g/dl (6.1-8.1); URIC ACID 1.3 mg/dl (3.1-7.9)
[2016-06-15 06:30] LABS: HEMATOCRIT 29.7 % (37.0-47.0); HEMOGLOBIN 10.1 g/dl (12.0-16.0); MEAN CORPUSCULAR HEMOGLOBIN 29.3 pg (29.0-33.0); MEAN CORPUSCULAR HGB CONC 34.2 g/dl (32.0-37.0); MEAN CORPUSCULAR VOLUME 85.7 fl (82.0-101.0); MEAN PLATELET VOLUME 8.8 fl (7.4-10.4); PLATELET COUNT 33 10^3/UL (140-440); RED BLOOD COUNT 3.46 10^6/ul (4.20-5.40); RED CELL DISTRIBUTION WIDTH 16.3 % (11.5-14.5); UNCORRECTED WBC 15.6 10^3/ul (4.8-10.8); WHITE BLOOD COUNT 15.6 10^3/ul (4.8-10.8)
[2016-06-15 07:15] LABS: CONDITION 1; LH ANALYZER COMMENTS 1; SUSPECT 1
[2016-06-15] MEDS ORDERED: SODIUM BICARBONATE (IV ADD) 150 MEQ in DEXTROSE 5% 850 ML IV SCH (09:00)
[2016-06-15] MEDS: FLUCONAZOLE 200 MG/NS (PMX) 100 ML IVPB SCH (09:49)
[2016-06-15] MEDS: ARTIFICIAL TEARS 15 ML OPH BOTH EYES SCH ×4 (09:50→20:52)
[2016-06-15] MEDS: MUPIROCIN 2% 22 GM OINT TOP SCH ×2 (09:50→20:52)
[2016-06-15] MEDS: NYSTATIN SUSP 5 ML CUP PO SCH ×4 (09:50→20:52)
[2016-06-15] MEDS: TRIMETHOPRIM/SULFAMETHOX (DS) TAB PO SCH ×2 (09:51→20:52)
[2016-06-15] MEDS: ALLOPURINOL 300 MG TAB PO SCH (09:51)
[2016-06-15] MEDS: GABAPENTIN 100 MG CAP PO SCH ×3 (09:51→20:52)
[2016-06-15] MEDS: ACYCLOVIR 400 MG TAB PO SCH ×2 (09:52→20:52)
[2016-06-15] MEDS: COLLAGENASE 30 GM TUBE TOP SCH (09:53)
[2016-06-15 10:01] LABS: LYMPHOCYTES # 0.5 10^3/ul (0.8-2.9); MONOCYTE # 0.9 10^3/ul (0.3-0.9); MYELOCYTES # 0.9; NEUTROPHIL # 8.4 10^3/ul (1.6-7.5)
[2016-06-15 10:02] LABS: PLATELET ESTIMATE PLT APPEAR DECREASED
[2016-06-15 10:20] VITALS: BP 135/75; PULSE 100; RESP 17
--- NOTE | 2016-06-15 10:50 | PN ---
Date/Time of Note Date/Time of Note DATE: 06/15/16 TIME: 10:45 Assessment/Plan VTE Prophylaxis VTE Prophylaxis Intervention: LMWH, SCD's Lines/Catheters IV Catheter Type (from Nrsg): PICC Line Central line still needed: Yes (Chemotherapy plan ) Urinary Cath still in place: No Assessment/Plan Assessment/Plan 1. S/p Neutropenic fever 2. Coagulase-negative Staphylococcus bacteremia, likely contaminant. 3. possible aspiration PNA 4. Stage IIA Burkitt's lymphoma, on chemotherapy 5. Respiratory failure, status post tracheostomy secondary to a neck mass causing tracheal compression and airway compromise, remains on trach collar. 6. Dysphagia. 7. Hypokalemia Plan: KCL replacement 20meq IV x 1, then IVF D51/2NS with KCL d/c bicarbonate drip ID and oncolgoy following- next chemo on 06/16 and 06/17 lovenox for DVT prophylaxis Subjective 24 Hr Interval Summary Free Text/Dictation afebirle, eating ok,No fever, no chills, on trach collar saturating ok Exam/Review of Systems Vital Signs Vitals Vital Signs Date Time Temp Pulse Resp B/P Pulse Ox O2 Delivery O2 Flow Rate FiO2 06/15/16 10:20 98.9 100 17 135/75 93 Trach Collar 4.0 06/15/16 08:12 28 Intake and Output 06/14/16 06/14/16 06/15/16 14:59 22:59 06:59 Intake Total 1380 ml 1300 ml Output Total 900 ml Balance 1380 ml 400 ml Exam GENERAL: This is a well-developed, ill-appearing, middle-aged [place] woman who is alert, in no distress. HEENT: Head atraumatic, normocephalic. Sclerae anicteric. Buccal mucosa pink. NECK: Supple. Tracheostomy present. CHEST: Rise symmetrical. Breath sounds diminished to bases. HEART: S1, S2. ABDOMEN: Soft, bowel tones present. EXTREMITIES: Without cyanosis. Results Result Diagram: 06/15/16 0415 06/15/165 Results 24 hrs Laboratory Tests Test 06/15/16 04:15 Alanine Aminotransferase (ALT/SGPT) 51 Albumin 2.7 L Albumin/Globulin Ratio 1.00 Alkaline Phosphatase 124 H Anion Gap 12 Aspartate Amino Transf (AST/SGOT) 44 Band Neutrophils % 23.0 H Blood Morphology Comment Blood Urea Nitrogen 2 L Calcium Level 8.5 Carbon Dioxide Level 31 Chloride Level 102 Creatinine 0.37 L Differential Comment MANUAL DIFF Direct Bilirubin 0.00 Globulin 2.70 Glucose Level 88 Hematocrit 29.7 L Hemoglobin 10.1 L Indirect Bilirubin 0.1 Lactate Dehydrogenase 1470 H Lymphocytes # 0.5 L Lymphocytes % 3.0 L Mean Corpuscular Hemoglobin 29.3 Mean Corpuscular Hemoglobin Concent 34.2 Mean Corpuscular Volume 85.7 Mean Platelet Volume 8.8 Metamyelocytes # 0.9 Metamyelocytes % 6.0 H Monocytes # 0.9 Monocytes % 6.0 Myelocytes # 0.9 Myelocytes % 6.0 H Neutrophils # 8.4 H Neutrophils % 54.0 Platelet Count 33 L Platelet Estimate PLT APPEAR DECREASED Potassium Level 3.2 L Promyelocytes # 0.3 Promyelocytes % 2.0 H Red Blood Count 3.46 L Red Cell Distribution Width 16.3 H Sodium Level 142 Total Bilirubin 0.1 L Total Protein 5.4 L Uric Acid 1.3 L White Blood Count 15.6 H Medications Medications Current Medications Sodium Chloride (NS) 1,000 ml @ 100 mls/hr Q10H IV Last administered on at 02:54; Admin Dose 100 MLS/HR; Start 06/02/16 at 14:30 Acyclovir (Zovirax) 400 mg BID PO Last administered on 06/15/16at 09:52; Admin Dose 400 MG; Start 06/02/16 at 14:30 Diphenhydramine HCl (Benadryl) 25 mg Q4H PRN IV ALLERGIC REACTION Last administered on 06/06/16at 20:26; Admin Dose 25 MG; Start 06/02/16 at 18:30 Dexamethasone 10 mg 10 mg Q4H PRN IV ALLERGIC REACTION; Start 06/02/16 at 18: 30 Leucovorin Calcium/Dextrose (Leucovorin Calcium Inj/D5W) 50 ml @ 50 mls/hr Q6H IV ; Start 06/17/16 at 23:00 Fluconazole 100 mg 100 mg DAILY PO Last administered on 06/08/16at 09:58; Admin Dose 100 MG; Start 06/03/16 at 09:00; Status Future Hold Ondansetron HCl/ Sodium Chloride (Zofran Inj/NS) 54 ml @ 216 mls/hr Q6H PRN IV NAUSEA AND/OR VOMITING; Start 06/02/16 at 18:30 Ondansetron HCl (Zofran Inj) 4 mg Q6H PRN IV NAUSEA AND/OR VOMITING Last administered on 06/14/16at 09:33; Admin Dose 4 MG; Start 06/03/16 at 17:00 Acetaminophen (Tylenol Tab) 650 mg Q6H PRN PO PAIN LEVEL 1-3 OR FEVER Last administered on 06/11/16at 21:50; Admin Dose 650 MG; Start 06/03/16 at 17:00 Acetaminophen (Tylenol Supp) 650 mg Q6H PRN [place] PAIN LEVEL 1-3 OR FEVER Last administered on 06/09/16at 03:37; Admin Dose 650 MG; Start 06/03/16 at 17:00 Docusate Sodium (Colace) 100 mg Q12H PRN PO CONSTIPATION; Start 06/03/16 at 17 :00 Magnesium Hydroxide (Milk Of Mag) 30 ml DAILY PRN PO CONSTIPATION; Start 06/03 at 17:00 Bisacodyl (Dulcolax) 5 mg DAILY PRN PO CONSTIPATION; Start 06/03/16 at 17:00 Bisacodyl (Dulcolax Supp) 10 mg DAILY PRN [place] CONSTIPATION; Start 06/03/16 at 17:00 Sodium Biphosphate/ Sodium Phosphate (Fleet Enema) 133 ml DAILY PRN [place] CONSTIPATION; Start 06/03/16 at 17:00 Enoxaparin Sodium (Lovenox) 30 mg DAILY SC Last administered on 06/12/16at 08: 27; Admin Dose 30 MG; Start 06/04/16 at 09:00; Status Future Hold Allopurinol (Zyloprim) 300 mg DAILY PO Last administered on 06/15/16 09:51; Admin Dose 300 MG; Start 06/04/16 at 09:00 Eye Lubricant (Artificial Tears Oph) 2 drop QID BOTH EYES Last administered on 06/15/16 09:50; Admin Dose 2 DROP; Start 06/03/16 at 21:00 Eye Lubricant (Akwa Oint) 1 applic DAILY BOTH EYES Last administered on 09:20; Admin Dose 1 APPLIC; Start 06/04/16 at 09:00 Gabapentin (Neurontin) 200 mg TID PO Last administered on 06/15/16 09:51; Admin Dose 200 MG; Start 06/03/16 at 21:00 Levothyroxine Sodium (Synthroid) 100 mcg DAILY@06 PO Last administered on 06/15 05:49; Admin Dose 100 MCG; Start 06/04/16 at 06:00 Nystatin 5 ml 5 ml QID PO Last administered on 06/15/16 09:50; Admin Dose 5 ML; Start 06/03/16 at 21:00 Vincristine Sulfate/Sodium Chloride (Oncovin/NS) 51 ml @ 102 mls/hr ONCE IV ; Start 06/16/16 at 09:30; Stop 06/16/16 at 09:59 Mupirocin (Bactroban) 1 applic BID TOP Last administered on 06/15/16 09:50; Admin Dose 1 APPLIC; Start 06/04/16 at 21:00 Pantoprazole (Protonix Iv) 40 mg DAILY@06 IV Last administered on 06/15/16 05 :49; Admin Dose 40 MG; Start 06/09/16 at 06:00 Lorazepam 1 mg 1 mg Q6H PRN IV AGITATION/ANXIETY Last administered on 18:38; Admin Dose 1 MG; Start 06/08/16 at 18:00 Fluconazole 100 ml @ 100 mls/hr Q24H IVPB Last administered on 06/15/16 09: 49; Admin Dose 100 MLS/HR; Start 06/09/16 at 05:30 Filgrastim/ Dextrose (Neupogen/D5W) 51.6 ml @ 103.2 mls/ hr DAILY@17 IVPB Last administered on 06/13/16at 17:24; Admin Dose 103.2 MLS/HR; Start 06/09/16 at 17:00 Acetaminophen/ Hydrocodone Bitart ([place] (5/325)) 1 tab Q6H PRN PO PAIN Last administered on 06/11/16 17:38; Admin Dose 1 TAB; Start 06/11/16 at 17:30 Collagenase (Santyl) 1 applic DAILY TOP Last administered on 06/15/16 09:53; Admin Dose 1 APPLIC; Start 06/12/16 at 09:00 Trimethoprim/ Sulfamethoxazole 1 tab 1 tab BID PO Last administered on 09:51; Admin Dose 1 TAB; Start 06/13/16 at 21:00 Sodium Bicarbonate 150 meq/Dextrose 1,000 ml @ 125 mls/hr Q8H IV ; Start 06/15 at 09:00 Methotrexate 175 mg/Sodium Chloride 250 ml @ 250 mls/hr ONCE IV ; Start at 10:00; Stop 06/16/16 at 10:59 Methotrexate 1590 mg/Sodium Chloride 1,000 ml @ 43.478 mls/ hr Q23H IV ; Start 06/16/16 at 11:00; Stop 06/17/16 at 09:59 Ondansetron HCl/ Dexamethasone/ Diphenhydramine HCl/Dextrose (Zofran Inj/ Decadron/Benadryl/ D5W) 59.5 ml @ 119 mls/hr ONCE IV ; Start 06/16/16 at 09:00 ; Stop 06/16/16 at 09:29 TELLY SOLANO MD Jun 15, 2016 10:50
[2016-06-15] MEDS ORDERED: D5W-0.45 NACL + KCL 20 MEQ 1,000 ML IV SCH (11:00)
[2016-06-15] MEDS ORDERED: POTASSIUM CHLORIDE 20 MEQ in SOD CHLORIDE 0.9% 100 ML IVPB ONE (12:00)
[2016-06-15] MEDS: OCULAR LUBRICANT 3.5 GM OPH OINT BOTH EYES SCH (12:13)
--- NOTE | 2016-06-15 13:05 | PN ---
Date/Time of Note Date/Time of Note DATE: 06/15/16 TIME: 13:03 Assessment/Plan VTE Prophylaxis VTE Prophylaxis Intervention: ambulation Lines/Catheters IV [facility]ter Type (from [facility] PICC Line Central line still needed: Yes Urinary Cath still in place: No Assessment/Plan Assessment/Plan # Burkitt's lymphoma -continue with cycle 1 R CODOX -M -Rituximab (Rituxan) as follows: * Cycle 1: 375 mg/m2 (660mg) IV on Day 1 -Cyclophosphamide (Cytoxan) 800 mg/m2 ( 1415mg) IV once per day on days 1 & 2 -Vincristine (Oncovin) 1.0 mg (dose reduced for neuropathy) days 1 & 15 . next dose due on 06/17 -Doxorubicin (Adriamycin) 50 mg/m2 (88mg) IV once on day 1 -Methotrexate (MTX) 100mg/m2 (175mg) IV over 1 hour then 900mg/m2 (1590mg) over 23 hours on day 15. will start Na HCo3 prior to MTX infusion and only start MTX once Urine Ph > 7.0. Leucovorin 25mg IV q 4 hours will start 36 hours after MTX starts until MTX level is < 0.05. next dose due on 06/16 # Neutropenic fever -pt is now afebrile and will dc precautions -held dose yesterday for neupogen -continue antibiotics. 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 all steroids should be discontinued for now unless they are part of the chemotherapy regimen -continue to work with physical therapy. 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 -uric acid level ok -will continue to monitor LDH d/w nursing and checking u/a for ph Subjective 24 Hr Interval Summary Subjective hx not possible: pt critical status Constitutional: poor po Respiratory: sputum Gastrointestinal: no complaints Exam/Review of Systems Vital Signs Vitals Vital Signs Date Time Temp Pulse Resp B/P Pulse Ox O2 Delivery O2 Flow Rate FiO2 06/15/16 12:39 104 20 95 Aerosol 5.0 28 06/15/16 10:20 98.9 135/75 Intake and Output 06/14/16 06/14/16 06/15/16 15:00 23:00 07:00 Intake Total 1380 ml 1300 ml Output Total 900 ml Balance 1380 ml 400 ml Exam Constitutional: alert, oriented Eyes: nl conjunctiva Respiratory: congested cough Cardiovascular: regular rate and rhythm Gastrointestinal: soft Musculoskeletal: nl extremities to inspection Results Result Diagram: 06/15/1641406/15/16414 Results 24 hrs Laboratory Tests Test 06/15/16 04:15 Alanine Aminotransferase (ALT/SGPT) 51 Albumin 2.7 L Albumin/Globulin Ratio 1.00 Alkaline Phosphatase 124 H Anion Gap 12 Aspartate Amino Transf (AST/SGOT) 44 Band Neutrophils % 23.0 H Blood Morphology Comment Blood Urea Nitrogen 2 L Calcium Level 8.5 Carbon Dioxide Level 31 Chloride Level 102 Creatinine 0.37 L Differential Comment MANUAL DIFF Direct Bilirubin 0.00 Globulin 2.70 Glucose Level 88 Hematocrit 29.7 L Hemoglobin 10.1 L Indirect Bilirubin 0.1 Lactate Dehydrogenase 1470 H Lymphocytes # 0.5 L Lymphocytes % 3.0 L Mean Corpuscular Hemoglobin 29.3 Mean Corpuscular Hemoglobin Concent 34.2 Mean Corpuscular Volume 85.7 Mean Platelet Volume 8.8 Metamyelocytes # 0.9 Metamyelocytes % 6.0 H Monocytes # 0.9 Monocytes % 6.0 Myelocytes # 0.9 Myelocytes % 6.0 H Neutrophils # 8.4 H Neutrophils % 54.0 Platelet Count 33 L Platelet Estimate PLT APPEAR DECREASED Potassium Level 3.2 L Promyelocytes # 0.3 Promyelocytes % 2.0 H Red Blood Count 3.46 L Red Cell Distribution Width 16.3 H Sodium Level 142 Total Bilirubin 0.1 L Total Protein 5.4 L Uric Acid 1.3 L White Blood Count 15.6 H Medications Medications Current Medications Sodium Chloride (NS) 1,000 ml @ 100 mls/hr Q10H IV Last administered on at 02:54; Admin Dose 100 MLS/HR; Start 06/02/16 at 14:30 Acyclovir (Zovirax) 400 mg BID PO Last administered on 06/15/16at 09:52; Admin Dose 400 MG; Start 06/02/16 at 14:30 Diphenhydramine HCl (Benadryl) 25 mg Q4H PRN IV ALLERGIC REACTION Last administered on 06/06/16at 20:26; Admin Dose 25 MG; Start 06/02/16 at 18:30 Dexamethasone 10 mg 10 mg Q4H PRN IV ALLERGIC REACTION; Start 06/02/16 at 18: 30 Leucovorin Calcium/Dextrose (Leucovorin Calcium Inj/D5W) 50 ml @ 50 mls/hr Q6H IV ; Start 06/17/16 at 23:00 Fluconazole 100 mg 100 mg DAILY PO Last administered on 06/08/16at 09:58; Admin Dose 100 MG; Start 06/03/16 at 09:00; Status Future Hold Ondansetron HCl/ Sodium Chloride (Zofran Inj/NS) 54 ml @ 216 mls/hr Q6H PRN IV NAUSEA AND/OR VOMITING; Start 06/02/16 at 18:30 Ondansetron HCl (Zofran Inj) 4 mg Q6H PRN IV NAUSEA AND/OR VOMITING Last administered on 06/14/16at 09:33; Admin Dose 4 MG; Start 06/03/16 at 17:00 Acetaminophen (Tylenol Tab) 650 mg Q6H PRN PO PAIN LEVEL 1-3 OR FEVER Last administered on 06/11/16at 21:50; Admin Dose 650 MG; Start 06/03/16 at 17:00 Acetaminophen (Tylenol Supp) 650 mg Q6H PRN [place] PAIN LEVEL 1-3 OR FEVER Last administered on 06/09/16at 03:37; Admin Dose 650 MG; Start 06/03/16 at 17:00 Docusate Sodium (Colace) 100 mg Q12H PRN PO CONSTIPATION; Start 06/03/16 at 17 :00 Magnesium Hydroxide (Milk Of Mag) 30 ml DAILY PRN PO CONSTIPATION; Start 06/03 at 17:00 Bisacodyl (Dulcolax) 5 mg DAILY PRN PO CONSTIPATION; Start 06/03/16 at 17:00 Bisacodyl (Dulcolax Supp) 10 mg DAILY PRN [place] CONSTIPATION; Start 06/03/16 at 17:00 Sodium Biphosphate/ Sodium Phosphate (Fleet Enema) 133 ml DAILY PRN [place] CONSTIPATION; Start 06/03/16 at 17:00 Enoxaparin Sodium (Lovenox) 30 mg DAILY SC Last administered on 06/12/16 08: 27; Admin Dose 30 MG; Start 06/04/16 at 09:00; Status Future Hold Allopurinol (Zyloprim) 300 mg DAILY PO Last administered on 06/15/16 09:51; Admin Dose 300 MG; Start 06/04/16 at 09:00 Eye Lubricant (Artificial Tears Oph) 2 drop QID BOTH EYES Last administered on 06/15/16 09:50; Admin Dose 2 DROP; Start 06/03/16 at 21:00 Eye Lubricant ([place] Oint) 1 applic DAILY BOTH EYES Last administered on 12:13; Admin Dose 1 APPLIC; Start 06/04/16 at 09:00 Gabapentin (Neurontin) 200 mg TID PO Last administered on 06/15/16 12:13; Admin Dose 200 MG; Start 06/03/16 at 21:00 Levothyroxine Sodium (Synthroid) 100 mcg DAILY@06 PO Last administered on 06/15 05:49; Admin Dose 100 MCG; Start 06/04/16 at 06:00 Nystatin 5 ml 5 ml QID PO Last administered on 06/15/16 09:50; Admin Dose 5 ML; Start 06/03/16 at 21:00 Vincristine Sulfate/Sodium Chloride (Oncovin/NS) 51 ml @ 102 mls/hr ONCE IV ; Start 06/16/16 at 09:30; Stop 06/16/16 at 09:59 Mupirocin (Bactroban) 1 applic BID TOP Last administered on 06/15/16 09:50; Admin Dose 1 APPLIC; Start 06/04/16 at 21:00 Pantoprazole (Protonix Iv) 40 mg DAILY@06 IV Last administered on 06/15/16 05 :49; Admin Dose 40 MG; Start 06/09/16 at 06:00 Lorazepam 1 mg 1 mg Q6H PRN IV AGITATION/ANXIETY Last administered on 18:38; Admin Dose 1 MG; Start 06/08/16 at 18:00 Fluconazole 100 ml @ 100 mls/hr Q24H IVPB Last administered on 06/15/16 09: 49; Admin Dose 100 MLS/HR; Start 06/09/16 at 05:30 Filgrastim/ Dextrose (Neupogen/D5W) 51.6 ml @ 103.2 mls/ hr DAILY@17 IVPB Last administered on 06/13/16at 17:24; Admin Dose 103.2 MLS/HR; Start 06/09/16 at 17:00 Acetaminophen/ Hydrocodone Bitart ([place] (5/325)) 1 tab Q6H PRN PO PAIN Last administered on 06/11/16at 17:38; Admin Dose 1 TAB; Start 06/11/16 at 17:30 Collagenase (Santyl) 1 applic DAILY TOP Last administered on 06/15/16at 09:53; Admin Dose 1 APPLIC; Start 06/12/16 at 09:00 Trimethoprim/ Sulfamethoxazole 1 tab 1 tab BID PO Last administered on at 09:51; Admin Dose 1 TAB; Start 06/13/16 at 21:00 Methotrexate 175 mg/Sodium Chloride 250 ml @ 250 mls/hr ONCE IV ; Start at 10:00; Stop 06/16/16 at 10:59 Methotrexate 1590 mg/Sodium Chloride 1,000 ml @ 43.478 mls/ hr Q23H IV ; Start 06/16/16 at 11:00; Stop 06/17/16 at 09:59 Ondansetron HCl 16 mg/ Dexamethasone 10 mg/ Diphenhydramine HCl 25 mg/Dextrose 59.5 ml @ 119 mls/hr ONCE IV ; Start 06/16/16 at 09:00; Stop 06/16/16 at 09: 29 Potassium Chloride 20 meq/ Sodium Chloride 110 ml @ 55 mls/hr ONCE ONCE IVPB Last administered on 06/15/16at 13:00; Admin Dose 55 MLS/HR; Start 06/15/16 at 12:00; Stop 06/15/16 at 13:59 Potassium Chloride/Dextrose/ Sod Cl (D5-1/2ns + KCl 20 Meq) 1,000 ml @ 100 mls/ hr Q10H IV Last administered on 06/15/16at 12:12; Admin Dose 100 MLS/HR; Start 06/15/16 at 11:00 SUAD FRANCO MD Jun 15, 2016 13:05
--- NOTE | 2016-06-15 14:42 | CONS ---
Date/Time of Note Date/Time of Note DATE: 06/15/16 TIME: 14:41 Consult Date/Type/Reason Admit Date/Time Jun 02, 2016 at 15:10 Initial Consult Date 06/02/16 Type of Consultation: ID Ordering Provider: TELLY SOLANO MD Subjective alert, feels good, no fevers, nad Objective Vital Signs Date Time Temp Pulse Resp B/P Pulse Ox O2 Delivery O2 Flow Rate FiO2 06/15/16 12:39 104 20 95 Aerosol 5.0 28 06/15/16 10:20 98.9 135/75 Intake and Output 06/14/16 06/14/16 06/15/16 15:00 23:00 07:00 Intake Total 1380 ml 1300 ml Output Total 900 ml Balance 1380 ml 400 ml Results/Medications Result Diagram: 06/15/16 0415 06/15/16 0415 Results 24 hrs Laboratory Tests Test 06/15/16 04:15 Alanine Aminotransferase (ALT/SGPT) 51 Albumin 2.7 L Albumin/Globulin Ratio 1.00 Alkaline Phosphatase 124 H Anion Gap 12 Aspartate Amino Transf (AST/SGOT) 44 Band Neutrophils % 23.0 H Blood Morphology Comment Blood Urea Nitrogen 2 L Calcium Level 8.5 Carbon Dioxide Level 31 Chloride Level 102 Creatinine 0.37 L Differential Comment MANUAL DIFF Direct Bilirubin 0.00 Globulin 2.70 Glucose Level 88 Hematocrit 29.7 L Hemoglobin 10.1 L Indirect Bilirubin 0.1 Lactate Dehydrogenase 1470 H Lymphocytes # 0.5 L Lymphocytes % 3.0 L Mean Corpuscular Hemoglobin 29.3 Mean Corpuscular Hemoglobin Concent 34.2 Mean Corpuscular Volume 85.7 Mean Platelet Volume 8.8 Metamyelocytes # 0.9 Metamyelocytes % 6.0 H Monocytes # 0.9 Monocytes % 6.0 Myelocytes # 0.9 Myelocytes % 6.0 H Neutrophils # 8.4 H Neutrophils % 54.0 Platelet Count 33 L Platelet Estimate PLT APPEAR DECREASED Potassium Level 3.2 L Promyelocytes # 0.3 Promyelocytes % 2.0 H Red Blood Count 3.46 L Red Cell Distribution Width 16.3 H Sodium Level 142 Total Bilirubin 0.1 L Total Protein 5.4 L Uric Acid 1.3 L White Blood Count 15.6 H Medications Current Medications Sodium Chloride (NS) 1,000 ml @ 100 mls/hr Q10H IV Last administered on at 02:54; Admin Dose 100 MLS/HR; Start 06/02/16 at 14:30 Acyclovir (Zovirax) 400 mg BID PO Last administered on 06/15/16at 09:52; Admin Dose 400 MG; Start 06/02/16 at 14:30 Diphenhydramine HCl (Benadryl) 25 mg Q4H PRN IV ALLERGIC REACTION Last administered on 06/06/16at 20:26; Admin Dose 25 MG; Start 06/02/16 at 18:30 Dexamethasone (Decadron) 10 mg Q4H PRN IV ALLERGIC REACTION; Start 06/02/16 at 18:30 Fluconazole 100 mg 100 mg DAILY PO Last administered on 06/08/16at 09:58; Admin Dose 100 MG; Start 06/03/16 at 09:00; Status Future Hold Ondansetron HCl/ Sodium Chloride (Zofran Inj/NS) 54 ml @ 216 mls/hr Q6H PRN IV NAUSEA AND/OR VOMITING; Start 06/02/16 at 18:30 Ondansetron HCl (Zofran Inj) 4 mg Q6H PRN IV NAUSEA AND/OR VOMITING Last administered on 06/14/16at 09:33; Admin Dose 4 MG; Start 06/03/16 at 17:00 Acetaminophen (Tylenol Tab) 650 mg Q6H PRN PO PAIN LEVEL 1-3 OR FEVER Last administered on 06/11/16at 21:50; Admin Dose 650 MG; Start 06/03/16 at 17:00 Acetaminophen (Tylenol Supp) 650 mg Q6H PRN [place] PAIN LEVEL 1-3 OR FEVER Last administered on 06/09/16at 03:37; Admin Dose 650 MG; Start 06/03/16 at 17:00 Docusate Sodium (Colace) 100 mg Q12H PRN PO CONSTIPATION; Start 06/03/16 at 17 :00 Magnesium Hydroxide (Milk Of Mag) 30 ml DAILY PRN PO CONSTIPATION; Start 06/03 at 17:00 Bisacodyl (Dulcolax) 5 mg DAILY PRN PO CONSTIPATION; Start 06/03/16 at 17:00 Bisacodyl (Dulcolax Supp) 10 mg DAILY PRN [place] CONSTIPATION; Start 06/03/16 at 17:00 Sodium Biphosphate/ Sodium Phosphate (Fleet Enema) 133 ml DAILY PRN [place] CONSTIPATION; Start 06/03/16 at 17:00 Enoxaparin Sodium (Lovenox) 30 mg DAILY SC Last administered on 06/12/16 08: 27; Admin Dose 30 MG; Start 06/04/16 at 09:00; Status Future Hold Allopurinol (Zyloprim) 300 mg DAILY PO Last administered on 06/15/16 09:51; Admin Dose 300 MG; Start 06/04/16 at 09:00 Eye Lubricant (Artificial Tears Oph) 2 drop QID BOTH EYES Last administered on 06/15/16 09:50; Admin Dose 2 DROP; Start 06/03/16 at 21:00 Eye Lubricant (Akwa Oint) 1 applic DAILY BOTH EYES Last administered on 12:13; Admin Dose 1 APPLIC; Start 06/04/16 at 09:00 Gabapentin (Neurontin) 200 mg TID PO Last administered on 06/15/16 12:13; Admin Dose 200 MG; Start 06/03/16 at 21:00 Levothyroxine Sodium (Synthroid) 100 mcg DAILY@06 PO Last administered on 06/15 05:49; Admin Dose 100 MCG; Start 06/04/16 at 06:00 Nystatin (Nystatin Susp) 5 ml QID PO Last administered on 06/15/16 09:50; Admin Dose 5 ML; Start 06/03/16 at 21:00 Mupirocin (Bactroban) 1 applic BID TOP Last administered on 06/15/16 09:50; Admin Dose 1 APPLIC; Start 06/04/16 at 21:00 Pantoprazole (Protonix Iv) 40 mg DAILY@06 IV Last administered on 06/15/16 05 :49; Admin Dose 40 MG; Start 06/09/16 at 06:00 Lorazepam 1 mg 1 mg Q6H PRN IV AGITATION/ANXIETY Last administered on 18:38; Admin Dose 1 MG; Start 06/08/16 at 18:00 Fluconazole 100 ml @ 100 mls/hr Q24H IVPB Last administered on 06/15/16 09: 49; Admin Dose 100 MLS/HR; Start 06/09/16 at 05:30 Filgrastim/ Dextrose (Neupogen/D5W) 51.6 ml @ 103.2 mls/ hr DAILY@17 IVPB Last administered on 06/13/16at 17:24; Admin Dose 103.2 MLS/HR; Start 06/09/16 at 17:00 Acetaminophen/ Hydrocodone Bitart ([place] (5/325)) 1 tab Q6H PRN PO PAIN Last administered on 06/11/16at 17:38; Admin Dose 1 TAB; Start 06/11/16 at 17:30 Collagenase (Santyl) 1 applic DAILY TOP Last administered on 06/15/16at 09:53; Admin Dose 1 APPLIC; Start 06/12/16 at 09:00 Trimethoprim/ Sulfamethoxazole 1 tab 1 tab BID PO Last administered on at 09:51; Admin Dose 1 TAB; Start 06/13/16 at 21:00 Potassium Chloride/Dextrose/ Sod Cl 1,000 ml @ 100 mls/hr Q10H IV Last administered on 06/15/16at 12:12; Admin Dose 100 MLS/HR; Start 06/15/16 at 11: 00 Vincristine Sulfate 1 mg/ Sodium Chloride 51 ml @ 102 mls/hr ONCE IV ; Start 06/16/16 at 12:00; Stop 06/16/16 at 12:29 Ondansetron HCl 16 mg/ Dexamethasone 10 mg/ Diphenhydramine HCl 25 mg/Dextrose 59.5 ml @ 119 mls/hr ONCE IV ; Start 06/16/16 at 11:30; Stop 06/16/16 at 11: 59 Methotrexate 175 mg/Sodium Chloride 250 ml @ 250 mls/hr ONCE IV ; Start at 13:00; Stop 06/17/16 at 13:59 Methotrexate 1590 mg/Sodium Chloride 1,000 ml @ 43.478 mls/ hr Q23H IV ; Start 06/16/16 at 14:00; Stop 06/17/16 at 12:59 Leucovorin Calcium/Dextrose (Leucovorin Calcium Inj/D5W) 50 ml @ 50 mls/hr Q6H IV ; Start 06/18/16 at 01:00 Assessment/Plan Chief Complaint/Hosp Course MICROBIOLOGY: Blood cultures from 06/08/2016 grew coagulase-negative staph species. Repeat blood cultures negative. Nares swab/sputum cx positive for MRSA. INDWELLINGS: Trach and left upper extremity PICC line. ANTIMICROBIALS: 1. PO Bactrim 2. Topical Bactroban to nares. 3. Fluconazole. 4. Acyclovir. PHYSICAL EXAMINATION: GENERAL: This is a well-developed, ill-appearing, middle-aged [place] woman who is alert, in no distress. HEENT: Head atraumatic, normocephalic. Sclerae anicteric. Buccal mucosa pink. NECK: Supple. Tracheostomy present. CHEST: Rise symmetrical. Breath sounds diminished to bases. HEART: S1, S2. ABDOMEN: Soft, bowel tones present. EXTREMITIES: Without cyanosis. ASSESSMENT: 1. S/p sepsis with high fevers likely secondary to neutropenia. 2. Coagulase-negative Staphylococcus bacteremia cw contaminant. 3. Methicillin-resistant Staphylococcus aureus nares colonization. 4. Possible aspiration pneumonia===> sputum cx + MRSA. 5. Stage IIA Burkitt's lymphoma, getting chemotherapy. The next cycle on Thursday. 6. Respiratory failure, status post tracheostomy secondary to a neck mass causing tracheal compression and airway compromise, remains on trach collar. 7. Dysphagia. PLAN: Clinically stable, no fevers, repeat bld cultures negative, continue abx/ Bactroban to nares, Diflucan and Acyclovir. Chemo per oncology [facility] staff Problems: RODRÍGUEZ ERAZO NP Jun 15, 2016 14:42
[2016-06-15 17:43] LABS: ADD UMIC YES; URINE BILIRUBIN (Dip) NEGATIVE (NEGATIVE); URINE BLOOD (Dip) 2+ (NEGATIVE); URINE COLOR LT. YELLOW (YELLOW); URINE GLUCOSE (Dip) NEGATIVE (NEGATIVE); URINE KETONES (Dip) NEGATIVE (NEGATIVE); URINE LEUKOCYTE ESTERASE (Dip) NEGATIVE (NEGATIVE); URINE NITRITE (Dip) NEGATIVE (NEGATIVE); URINE TOTAL PROTEIN (Dip) NEGATIVE (NEGATIVE); URINE UROBILINOGEN (Dip) 0.2 E.U./dL (0.1-1.0)
[2016-06-15 18:24] LABS: SQUAMOUS EPITHELIAL CELL,UR FEW
[2016-06-15] MEDS: FILGRASTIM IVPB SCH (18:54)
[2016-06-15] MEDS: DEXTROSE 5% IVPB SCH (18:54)
[2016-06-15 20:00] VITALS: BP 130/74; PULSE 85; RESP 18
[2016-06-15] MEDS ORDERED: SODIUM BICARBONATE (IV ADD) 150 MEQ in SOD CHLORIDE 0.9% 1,000 ML IV SCH (20:30)
[2016-06-15] MEDS: SODIUM BICARBONATE (IV ADD) 150 MEQ in SOD CHLORIDE 0.9% 1,000 ML IV SCH (21:11)
[2016-06-16] VITALS (12 sets, daily range): BP systolic 105–129; BP diastolic 58–77; PULSE 70–101; RESP 16–20
[2016-06-16] MEDS: ALBUTEROL/IPRATROPIUM (NEB) 3 ML AMP HHN SCH ×6 (00:47→21:29)
[2016-06-16] MEDS ORDERED: ONDANSETRON IV SCH ×3 (02:00→11:30)
[2016-06-16] MEDS ORDERED: DIPHENHYDRAMINE IV SCH ×3 (02:00→11:30)
[2016-06-16] MEDS ORDERED: [UNRECOGNIZED DRUG - OTHER] IV SCH ×3 (02:00→11:30)
[2016-06-16] MEDS ORDERED: DEXAMETHASONE IV SCH ×3 (02:00→11:30)
[2016-06-16] MEDS: ONDANSETRON 4 MG INJ IV PRN (02:20)
[2016-06-16] MEDS ORDERED: METHOTREXATE IV SCH ×6 (03:00→14:00)
[2016-06-16] MEDS ORDERED: SOD CHLORIDE 0.9% IV SCH ×8 (03:00→14:00)
[2016-06-16] MEDS: SODIUM BICARBONATE (IV ADD) 150 MEQ in SOD CHLORIDE 0.9% 1,000 ML IV SCH (05:33)
[2016-06-16 05:35] LABS: HEMATOCRIT 28.2 % (37.0-47.0); HEMOGLOBIN 9.8 g/dl (12.0-16.0); MEAN CORPUSCULAR HEMOGLOBIN 29.4 pg (29.0-33.0); MEAN CORPUSCULAR HGB CONC 34.7 g/dl (32.0-37.0); MEAN CORPUSCULAR VOLUME 84.9 fl (82.0-101.0); MEAN PLATELET VOLUME 8.5 fl (7.4-10.4); PLATELET COUNT 34 10^3/UL (140-440); RED BLOOD COUNT 3.32 10^6/ul (4.20-5.40); RED CELL DISTRIBUTION WIDTH 16.1 % (11.5-14.5); UNCORRECTED WBC 22.4 10^3/ul (4.8-10.8); WHITE BLOOD COUNT 22.4 10^3/ul (4.8-10.8)
[2016-06-16 05:41] LABS: CONDITION 1; LH ANALYZER COMMENTS 1; SUSPECT 1
[2016-06-16 05:42] LABS: INR 1.09; PROTIME 14.1 Sec (12.2-14.2); PT RATIO 1.1
[2016-06-16 05:43] LABS: CHLORIDE 102 mmol/L (97-110); PARTIAL THROMBOPLASTIN TIME 31.5 Sec (25.0-35.0); SODIUM 143 mmol/L (135-144)
[2016-06-16 05:44] LABS: POTASSIUM 3.2 mmol/L (3.5-5.1)
[2016-06-16 05:46] LABS: CREATININE 0.32 mg/dl (0.44-1.00)
[2016-06-16 05:47] LABS: ANION GAP 12 (8-16); CALCIUM 8.1 mg/dl (8.4-10.2); CARBON DIOXIDE 32 mmol/L (21-31); GLUCOSE 85 mg/dl (70-220)
[2016-06-16 05:54] LABS: BLOOD UREA NITROGEN < 2 mg/dl (7-20)
[2016-06-16 05:59] LABS: ADD UMIC YES; URINE BILIRUBIN (Dip) NEGATIVE (NEGATIVE); URINE BLOOD (Dip) TRACE (NEGATIVE); URINE COLOR LT. YELLOW (YELLOW); URINE GLUCOSE (Dip) NEGATIVE (NEGATIVE); URINE KETONES (Dip) NEGATIVE (NEGATIVE); URINE LEUKOCYTE ESTERASE (Dip) NEGATIVE (NEGATIVE); URINE NITRITE (Dip) NEGATIVE (NEGATIVE); URINE TOTAL PROTEIN (Dip) NEGATIVE (NEGATIVE); URINE UROBILINOGEN (Dip) 0.2 E.U./dL (0.1-1.0)
[2016-06-16 06:14] LABS: SQUAMOUS EPITHELIAL CELL,UR OCCASIONAL; TRANSITIONAL EPI CELLS,URINE OCCASIONAL; URINE RBCS 0-2 /HPF (0)
[2016-06-16] MEDS: LEVOTHYROXINE 100 MCG TAB PO SCH (06:18)
[2016-06-16] MEDS: PANTOPRAZOLE 40 MG INJ IV SCH (06:18)
[2016-06-16] MEDS: FLUCONAZOLE 200 MG/NS (PMX) 100 ML IVPB SCH (06:18)
[2016-06-16] MEDS: SOD CHLORIDE 0.9% 1,000 ML IV SCH ×2 (08:30→18:30)
[2016-06-16] MEDS: MUPIROCIN 2% 22 GM OINT TOP SCH ×2 (09:12→20:22)
[2016-06-16] MEDS: NYSTATIN SUSP 5 ML CUP PO SCH ×4 (09:12→20:22)
[2016-06-16] MEDS: ALLOPURINOL 300 MG TAB PO SCH (09:12)
[2016-06-16] MEDS: GABAPENTIN 100 MG CAP PO SCH ×3 (09:12→20:22)
[2016-06-16] MEDS: ARTIFICIAL TEARS 15 ML OPH BOTH EYES SCH ×4 (09:12→20:20)
[2016-06-16] MEDS: TRIMETHOPRIM/SULFAMETHOX (DS) TAB PO SCH ×2 (09:12→20:22)
[2016-06-16] MEDS: ACYCLOVIR 400 MG TAB PO SCH ×2 (09:12→20:22)
[2016-06-16] MEDS: COLLAGENASE 30 GM TUBE TOP SCH (09:13)
[2016-06-16] MEDS: OCULAR LUBRICANT 3.5 GM OPH OINT BOTH EYES SCH (09:13)
[2016-06-16] MEDS ORDERED: VINCRISTINE IV SCH ×2 (09:30→12:00)
[2016-06-16 09:34] LABS: LYMPHOCYTES # 1.1 10^3/ul (0.8-2.9); NEUTROPHIL # 16.8 10^3/ul (1.6-7.5)
[2016-06-16] MEDS ORDERED: POTASSIUM CHLORIDE 250 ML IVPB ONE (12:30)
--- NOTE | 2016-06-16 14:06 | PN ---
Date/Time of Note Date/Time of Note DATE: 06/16/16 TIME: 14:04 Assessment/Plan VTE Prophylaxis VTE Prophylaxis Intervention: ambulation Lines/Catheters IV [facility] Type (from [facility] PICC Line Central line still needed: Yes Urinary Cath still in place: No Assessment/Plan Assessment/Plan # Burkitt's lymphoma -continue with cycle 1 R CODOX -M -Rituximab (Rituxan) as follows: * Cycle 1: 375 mg/m2 (660mg) IV on Day 1 -Cyclophosphamide (Cytoxan) 800 mg/m2 ( 1415mg) IV once per day on days 1 & 2 -Vincristine (Oncovin) 1.0 mg (dose reduced for neuropathy) days 1 & 15 . next dose due on 06/17 -Doxorubicin (Adriamycin) 50 mg/m2 (88mg) IV once on day 1 -Methotrexate (MTX) 100mg/m2 (175mg) IV over 1 hour then 900mg/m2 (1590mg) over 23 hours on day 15. will start IVF with 2 amps Na HCo3 prior to MTX infusion since Urine Ph > 7.0. Leucovorin 25mg IV q 4 hours will start 36 hours after MTX starts until MTX level is < 0.05. next dose due today 06/16 # Neutropenic fever -pt is now afebrile and will dc precautions -held dose yesterday for neupogen -continue antibiotics. 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 all steroids should be discontinued for now unless they are part of the chemotherapy regimen -continue to work with physical therapy. 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 -uric acid level ok -will continue to monitor LDH d/w nursing and checking u/a for ph every 6 hours to keep greater than 7 Subjective 24 Hr Interval Summary Subjective hx not possible: pt non-verbal Eyes: no complaints Respiratory: no complaints Gastrointestinal: no complaints Exam/Review of Systems Vital Signs Vitals Vital Signs Date Time Temp Pulse Resp B/P Pulse Ox O2 Delivery O2 Flow Rate FiO2 06/16/16 12:32 92 18 96 Aerosol 5.0 28 06/16/16 08:25 98.2 117/77 Intake and Output 06/15/16 06/15/16 06/16/16 15:00 23:00 07:00 Intake Total 600 ml 1735 ml Balance 600 ml 1735 ml Exam trach no bleed Psych: nl mood/affect Eyes: nl conjunctiva Respiratory: normal air movement Gastrointestinal: soft Results Result Diagram: 06/16/16 0435 06/16/16 0435 Results 24 hrs Laboratory Tests Test 06/15/16 17:05 06/16/16 04:35 06/16/16 05:35 Urine Bilirubin NEGATIVE NEGATIVE Urine Clarity CLEAR CLEAR Urine Color LT. YELLOW LT. YELLOW Urine Glucose NEGATIVE NEGATIVE Urine Hemoglobin 2+ H TRACE Urine Ketones NEGATIVE NEGATIVE Urine Leukocyte Esterase NEGATIVE NEGATIVE Urine Microscopic RBC 2-5 0-2 Urine Microscopic WBC 0-2 2-5 Urine Nitrite NEGATIVE NEGATIVE Urine Specific [place] 1.010 1.015 Urine Squamous Epithelial Cells FEW OCCASIONAL Urine Total Protein NEGATIVE NEGATIVE Urine Urobilinogen 0.2 E.U./dL 0.2 E.U./dL Urine pH 6.5 8.5 Activated Partial Thromboplast Time 31.5 Anion Gap 12 Band Neutrophils % 16.0 H Basophils # Basophils % Blood Morphology Comment Blood Urea Nitrogen < 2 L Calcium Level 8.1 L Carbon Dioxide Level 32 H Chloride Level 102 Creatinine 0.32 L Eosinophils # Eosinophils % Glucose Level 85 Hematocrit 28.2 L Hemoglobin 9.8 L INR International Normalized Ratio 1.09 Lymphocytes # 1.1 Lymphocytes % 5.0 L Magnesium Level 1.1 L Mean Corpuscular Hemoglobin 29.4 Mean Corpuscular Hemoglobin Concent 34.7 Mean Corpuscular Volume 84.9 Mean Platelet Volume 8.5 Metamyelocytes # 0.9 Metamyelocytes % 4.0 H Monocytes # Monocytes % Neutrophils # 16.8 H Neutrophils % 75.0 Nucleated Red Blood Cells # Nucleated Red Blood Cells % Platelet Count 34 L Potassium Level 3.2 L Prothrombin Time 14.1 Prothrombin Time Ratio 1.1 Red Blood Count 3.32 L Red Cell Distribution Width 16.1 H Sodium Level 143 White Blood Count 22.4 #H Urine Transitional Epithelial Cells OCCASIONAL Medications Medications Current Medications Sodium Chloride (NS) 1,000 ml @ 100 mls/hr Q10H IV Last administered on at 02:54; Admin Dose 100 MLS/HR; Start 06/02/16 at 14:30 Acyclovir (Zovirax) 400 mg BID PO Last administered on 06/16/16at 09:12; Admin Dose 400 MG; Start 06/02/16 at 14:30 Diphenhydramine HCl (Benadryl) 25 mg Q4H PRN IV ALLERGIC REACTION Last administered on 06/06/16at 20:26; Admin Dose 25 MG; Start 06/02/16 at 18:30 Dexamethasone (Decadron) 10 mg Q4H PRN IV ALLERGIC REACTION; Start 06/02/16 at 18:30 Fluconazole 100 mg 100 mg DAILY PO Last administered on 06/08/16at 09:58; Admin Dose 100 MG; Start 06/03/16 at 09:00; Status Future Hold Ondansetron HCl/ Sodium Chloride (Zofran Inj/NS) 54 ml @ 216 mls/hr Q6H PRN IV NAUSEA AND/OR VOMITING; Start 06/02/16 at 18:30 Ondansetron HCl (Zofran Inj) 4 mg Q6H PRN IV NAUSEA AND/OR VOMITING Last administered on 06/16/16at 02:20; Admin Dose 4 MG; Start 06/03/16 at 17:00 Acetaminophen (Tylenol Tab) 650 mg Q6H PRN PO PAIN LEVEL 1-3 OR FEVER Last administered on 06/11/16at 21:50; Admin Dose 650 MG; Start 06/03/16 at 17:00 Acetaminophen (Tylenol Supp) 650 mg Q6H PRN [place] PAIN LEVEL 1-3 OR FEVER Last administered on 06/09/16at 03:37; Admin Dose 650 MG; Start 06/03/16 at 17:00 Docusate Sodium (Colace) 100 mg Q12H PRN PO CONSTIPATION; Start 06/03/16 at 17 :00 Magnesium Hydroxide (Milk Of Mag) 30 ml DAILY PRN PO CONSTIPATION; Start 06/03 at 17:00 Bisacodyl (Dulcolax) 5 mg DAILY PRN PO CONSTIPATION; Start 06/03/16 at 17:00 Bisacodyl (Dulcolax Supp) 10 mg DAILY PRN MD CONSTIPATION; Start 06/03/16 at 17:00 Sodium Biphosphate/ Sodium Phosphate (Fleet Enema) 133 ml DAILY PRN MD CONSTIPATION; Start 06/03/16 at 17:00 Enoxaparin Sodium (Lovenox) 30 mg DAILY SC Last administered on 06/12/16at 08: 27; Admin Dose 30 MG; Start 06/04/16 at 09:00; Status Future Hold Allopurinol (Zyloprim) 300 mg DAILY PO Last administered on 06/16/16at 09:12; Admin Dose 300 MG; Start 06/04/16 at 09:00 Eye Lubricant (Artificial Tears Oph) 2 drop QID BOTH EYES Last administered on 06/16/16at 13:25; Admin Dose 2 DROP; Start 06/03/16 at 21:00 Eye Lubricant (Akwa Oint) 1 applic DAILY BOTH EYES Last administered on 09:13; Admin Dose 1 APPLIC; Start 06/04/16 at 09:00 Gabapentin (Neurontin) 200 mg TID PO Last administered on 06/16/16 13:26; Admin Dose 200 MG; Start 06/03/16 at 21:00 Levothyroxine Sodium (Synthroid) 100 mcg DAILY@06 PO Last administered on 06/16at 06:18; Admin Dose 100 MCG; Start 06/04/16 at 06:00 Nystatin (Nystatin Susp) 5 ml QID PO Last administered on 06/16/16 13:26; Admin Dose 5 ML; Start 06/03/16 at 21:00 Mupirocin (Bactroban) 1 applic BID TOP Last administered on 06/16/16at 09:12; Admin Dose 1 APPLIC; Start 06/04/16 at 21:00 Pantoprazole (Protonix Iv) 40 mg DAILY@06 IV Last administered on 06/16/16at 06 :18; Admin Dose 40 MG; Start 06/09/16 at 06:00 Lorazepam 1 mg 1 mg Q6H PRN IV AGITATION/ANXIETY Last administered on at 18:38; Admin Dose 1 MG; Start 06/08/16 at 18:00 Fluconazole 100 ml @ 100 mls/hr Q24H IVPB Last administered on 06/16/16at 06: 18; Admin Dose 100 MLS/HR; Start 06/09/16 at 05:30 Filgrastim/ Dextrose (Neupogen/D5W) 51.6 ml @ 103.2 mls/ hr DAILY@17 IVPB Last administered on 06/15/16at 18:54; Admin Dose 103.2 MLS/HR; Start 06/09/16 at 17:00 Acetaminophen/ Hydrocodone Bitart ([place] (5/325)) 1 tab Q6H PRN PO PAIN Last administered on 06/11/16at 17:38; Admin Dose 1 TAB; Start 06/11/16 at 17:30 Collagenase (Santyl) 1 applic DAILY TOP Last administered on 06/16/16at 09:13; Admin Dose 1 APPLIC; Start 06/12/16 at 09:00 Trimethoprim/ Sulfamethoxazole 1 tab 1 tab BID PO Last administered on at 09:12; Admin Dose 1 TAB; Start 06/13/16 at 21:00 Methotrexate 1590 mg/Sodium Chloride 1,000 ml @ 43.478 mls/ hr Q23H IV ; Start 06/16/16 at 14:00; Stop 06/17/16 at 12:59 Leucovorin Calcium 25 mg/ Dextrose 50 ml @ 50 mls/hr Q6H IV ; Start 06/18/16 at 01:00 Magnesium Sulfate 100 ml @ 25 mls/hr DAILY IVPB ; Start 06/16/16 at 12:30; Stop 06/17/16 at 12:59 Potassium Chloride 250 ml @ 62.5 mls/hr ONCE ONCE IVPB ; Start 06/16/16 at 12 :30; Stop 06/16/16 at 16:29 Sodium Bicarbonate/ Sodium Chloride (Na Bicarb/NS) 1,100 ml @ 125 mls/hr Q8H48M IV ; Start 06/16/16 at 14:30 SUAD FRANCO MD Jun 16, 2016 14:06
[2016-06-16] MEDS: MAGNESIUM SULFATE 4 GM/100 ML 100 ML IVPB SCH (14:27)
--- NOTE | 2016-06-16 14:44 | CONS ---
Date/Time of Note Date/Time of Note DATE: 06/16/16 TIME: 14:42 Consult Date/Type/Reason Admit Date/Time Jun 02, 2016 at 15:10 Initial Consult Date 06/02/16 Type of Consultation: ID Ordering Provider: TELLY SOLANO MD Subjective alert, feels good, no fevers, nad Objective Vital Signs Date Time Temp Pulse Resp B/P Pulse Ox O2 Delivery O2 Flow Rate FiO2 06/16/16 12:32 92 18 96 Aerosol 5.0 28 06/16/16 08:25 98.2 117/77 Intake and Output 06/15/16 06/15/16 06/16/16 15:00 23:00 07:00 Intake Total 600 ml 1735 ml Balance 600 ml 1735 ml Results/Medications Result Diagram: 06/16/16 0435 06/16/16 0435 Results 24 hrs Laboratory Tests Test 06/15/16 17:05 06/16/16 04:35 06/16/16 05:35 Urine Bilirubin NEGATIVE NEGATIVE Urine Clarity CLEAR CLEAR Urine Color LT. YELLOW LT. YELLOW Urine Glucose NEGATIVE NEGATIVE Urine Hemoglobin 2+ H TRACE Urine Ketones NEGATIVE NEGATIVE Urine Leukocyte Esterase NEGATIVE NEGATIVE Urine Microscopic RBC 2-5 0-2 Urine Microscopic WBC 0-2 2-5 Urine Nitrite NEGATIVE NEGATIVE Urine Specific [place] 1.010 1.015 Urine Squamous Epithelial Cells FEW OCCASIONAL Urine Total Protein NEGATIVE NEGATIVE Urine Urobilinogen 0.2 E.U./dL 0.2 E.U./dL Urine pH 6.5 8.5 Activated Partial Thromboplast Time 31.5 Anion Gap 12 Band Neutrophils % 16.0 H Basophils # Basophils % Blood Morphology Comment Blood Urea Nitrogen < 2 L Calcium Level 8.1 L Carbon Dioxide Level 32 H Chloride Level 102 Creatinine 0.32 L Eosinophils # Eosinophils % Glucose Level 85 Hematocrit 28.2 L Hemoglobin 9.8 L INR International Normalized Ratio 1.09 Lymphocytes # 1.1 Lymphocytes % 5.0 L Magnesium Level 1.1 L Mean Corpuscular Hemoglobin 29.4 Mean Corpuscular Hemoglobin Concent 34.7 Mean Corpuscular Volume 84.9 Mean Platelet Volume 8.5 Metamyelocytes # 0.9 Metamyelocytes % 4.0 H Monocytes # Monocytes % Neutrophils # 16.8 H Neutrophils % 75.0 Nucleated Red Blood Cells # Nucleated Red Blood Cells % Platelet Count 34 L Potassium Level 3.2 L Prothrombin Time 14.1 Prothrombin Time Ratio 1.1 Red Blood Count 3.32 L Red Cell Distribution Width 16.1 H Sodium Level 143 White Blood Count 22.4 #H Urine Transitional Epithelial Cells OCCASIONAL Medications Current Medications Sodium Chloride (NS) 1,000 ml @ 100 mls/hr Q10H IV Last administered on 02:54; Admin Dose 100 MLS/HR; Start 06/02/16 at 14:30 Acyclovir (Zovirax) 400 mg BID PO Last administered on 06/16/16at 09:12; Admin Dose 400 MG; Start 06/02/16 at 14:30 Diphenhydramine HCl (Benadryl) 25 mg Q4H PRN IV ALLERGIC REACTION Last administered on 06/06/16 20:26; Admin Dose 25 MG; Start 06/02/16 at 18:30 Dexamethasone (Decadron) 10 mg Q4H PRN IV ALLERGIC REACTION; Start 06/02/16 at 18:30 Fluconazole 100 mg 100 mg DAILY PO Last administered on 06/08/16at 09:58; Admin Dose 100 MG; Start 06/03/16 at 09:00; Status Future Hold Ondansetron HCl/ Sodium Chloride (Zofran Inj/NS) 54 ml @ 216 mls/hr Q6H PRN IV NAUSEA AND/OR VOMITING; Start 06/02/16 at 18:30 Ondansetron HCl (Zofran Inj) 4 mg Q6H PRN IV NAUSEA AND/OR VOMITING Last administered on 06/16/16at 02:20; Admin Dose 4 MG; Start 06/03/16 at 17:00 Acetaminophen (Tylenol Tab) 650 mg Q6H PRN PO PAIN LEVEL 1-3 OR FEVER Last administered on 06/11/16at 21:50; Admin Dose 650 MG; Start 06/03/16 at 17:00 Acetaminophen (Tylenol Supp) 650 mg Q6H PRN [place] PAIN LEVEL 1-3 OR FEVER Last administered on 06/09/16at 03:37; Admin Dose 650 MG; Start 06/03/16 at 17:00 Docusate Sodium (Colace) 100 mg Q12H PRN PO CONSTIPATION; Start 06/03/16 at 17 :00 Magnesium Hydroxide (Milk Of Mag) 30 ml DAILY PRN PO CONSTIPATION; Start 06/03 at 17:00 Bisacodyl (Dulcolax) 5 mg DAILY PRN PO CONSTIPATION; Start 06/03/16 at 17:00 Bisacodyl (Dulcolax Supp) 10 mg DAILY PRN [place] CONSTIPATION; Start 06/03/16 at 17:00 Sodium Biphosphate/ Sodium Phosphate (Fleet Enema) 133 ml DAILY PRN MS CONSTIPATION; Start 06/03/16 at 17:00 Enoxaparin Sodium (Lovenox) 30 mg DAILY SC Last administered on 06/12/16at 08: 27; Admin Dose 30 MG; Start 06/04/16 at 09:00; Status Future Hold Allopurinol (Zyloprim) 300 mg DAILY PO Last administered on 06/16/16 09:12; Admin Dose 300 MG; Start 06/04/16 at 09:00 Eye Lubricant (Artificial Tears Oph) 2 drop QID BOTH EYES Last administered on 06/16/16at 13:25; Admin Dose 2 DROP; Start 06/03/16 at 21:00 Eye Lubricant (Akwa Oint) 1 applic DAILY BOTH EYES Last administered on 09:13; Admin Dose 1 APPLIC; Start 06/04/16 at 09:00 Gabapentin (Neurontin) 200 mg TID PO Last administered on 06/16/16 13:26; Admin Dose 200 MG; Start 06/03/16 at 21:00 Levothyroxine Sodium (Synthroid) 100 mcg DAILY@06 PO Last administered on 06/16 06:18; Admin Dose 100 MCG; Start 06/04/16 at 06:00 Nystatin (Nystatin Susp) 5 ml QID PO Last administered on 06/16/16 13:26; Admin Dose 5 ML; Start 06/03/16 at 21:00 Mupirocin (Bactroban) 1 applic BID TOP Last administered on 06/16/16 09:12; Admin Dose 1 APPLIC; Start 06/04/16 at 21:00 Pantoprazole (Protonix Iv) 40 mg DAILY@06 IV Last administered on 06/16/16 06 :18; Admin Dose 40 MG; Start 06/09/16 at 06:00 Lorazepam 1 mg 1 mg Q6H PRN IV AGITATION/ANXIETY Last administered on at 18:38; Admin Dose 1 MG; Start 06/08/16 at 18:00 Fluconazole 100 ml @ 100 mls/hr Q24H IVPB Last administered on 06/16/16at 06: 18; Admin Dose 100 MLS/HR; Start 06/09/16 at 05:30 Filgrastim/ Dextrose (Neupogen/D5W) 51.6 ml @ 103.2 mls/ hr DAILY@17 IVPB Last administered on 06/15/16at 18:54; Admin Dose 103.2 MLS/HR; Start 06/09/16 at 17:00 Acetaminophen/ Hydrocodone Bitart ([place] (5/325)) 1 tab Q6H PRN PO PAIN Last administered on 06/11/16at 17:38; Admin Dose 1 TAB; Start 06/11/16 at 17:30 Collagenase (Santyl) 1 applic DAILY TOP Last administered on 06/16/16at 09:13; Admin Dose 1 APPLIC; Start 06/12/16 at 09:00 Trimethoprim/ Sulfamethoxazole 1 tab 1 tab BID PO Last administered on at 09:12; Admin Dose 1 TAB; Start 06/13/16 at 21:00 Methotrexate 1590 mg/Sodium Chloride 1,000 ml @ 43.478 mls/ hr Q23H IV ; Start 06/16/16 at 14:00; Stop 06/17/16 at 12:59 Leucovorin Calcium 25 mg/ Dextrose 50 ml @ 50 mls/hr Q6H IV ; Start 06/18/16 at 01:00 Magnesium Sulfate 100 ml @ 25 mls/hr DAILY IVPB Last administered on at 14:27; Admin Dose 25 MLS/HR; Start 06/16/16 at 12:30; Stop 06/17/16 at 12 :59 Potassium Chloride 250 ml @ 62.5 mls/hr ONCE ONCE IVPB ; Start 06/16/16 at 12 :30; Stop 06/16/16 at 16:29 Sodium Bicarbonate/ Sodium Chloride (Na Bicarb/NS) 1,100 ml @ 125 mls/hr Q8H48M IV ; Start 06/16/16 at 14:30 Assessment/Plan Chief Complaint/Hosp Course MICROBIOLOGY: Blood cultures from 06/08/2016 grew coagulase-negative staph species. Repeat blood cultures negative. Nares swab/sputum cx positive for MRSA. INDWELLINGS: Trach and left upper extremity PICC line. ANTIMICROBIALS: 1. PO Bactrim 2. Topical Bactroban to nares. 3. Fluconazole. 4. Acyclovir. PHYSICAL EXAMINATION: GENERAL: This is a well-developed, ill-appearing, middle-aged [place] woman who is alert, in no distress. HEENT: Head atraumatic, normocephalic. Sclerae anicteric. Buccal mucosa pink. NECK: Supple. Tracheostomy present. CHEST: Rise symmetrical. Breath sounds CTA. HEART: S1, S2. ABDOMEN: Soft, bowel tones present. EXTREMITIES: Without cyanosis. ASSESSMENT: 1. S/p sepsis with high fevers likely secondary to neutropenia. 2. Coagulase-negative Staphylococcus bacteremia cw contaminant. 3. Methicillin-resistant Staphylococcus aureus nares colonization. 4. Possible aspiration pneumonia===> sputum cx + MRSA. 5. Stage IIA Burkitt's lymphoma, getting chemotherapy. The next cycle on Thursday. 6. Respiratory failure, status post tracheostomy secondary to a neck mass causing tracheal compression and airway compromise, remains on trach collar. 7. Leukocytosis==> s/p Neupogen PLAN: Clinically stable, continue abx/ Bactroban to nares. Chemo per oncology [facility] staff/pt Problems: RODRÍGUEZ ERAZO NP Jun 16, 2016 14:44
--- NOTE | 2016-06-16 15:30 | PN ---
Date/Time of Note Date/Time of Note DATE: 06/16/16 TIME: 15:28 Assessment/Plan VTE Prophylaxis VTE Prophylaxis Intervention: other Lines/Catheters [facility] P[facility] Line Central line still needed: Yes Urinary Cath still in place: No Assessment/Plan Chief Complaint/Hosp Course IMPRESSION: The patient has Burkitt's lymphoma status post tracheostomy, status post thyroid mass, status post pancytopenia, abnormal liver function test. The patient has anemia.NEUTROPENIA S/P CHEMO, S/P PANCAKE PROFESSIONAL SEPSIS HYPOKALEMIA b PLAN PER DR MERLOS ANTIBIOTIC IV FLUID LYTES REPLACEMENT Problems: Subjective 24 Hr Interval Summary Gastrointestinal: decreased appetite Genitourinary: no complaints Musculoskeletal: no complaints Exam/Review of Systems Vital Signs Vitals Vital Signs Date Time Temp Pulse Resp B/P Pulse Ox O2 Delivery O2 Flow Rate FiO2 06/16/16 15:05 98.2 101 18 120/66 96 Trach Collar 4.0 06/16/16 12:32 28 Intake and Output 06/15/16 06/15/16 06/16/16 15:00 23:00 07:00 Intake Total 600 ml 1735 ml Balance 600 ml 1735 ml Exam Respiratory: diminished breath sounds Cardiovascular: regular rate and rhythm Gastrointestinal: bowel sounds (POSITIVE), soft Extremities: edema (NEG) Results Result Diagram: 06/16/16 0435 06/16/16 0435 Results 24 hrs Laboratory Tests Test 06/15/16 17:05 06/16/16 04:35 06/16/16 05:35 Urine Bilirubin NEGATIVE NEGATIVE Urine Clarity CLEAR CLEAR Urine Color LT. YELLOW LT. YELLOW Urine Glucose NEGATIVE NEGATIVE Urine Hemoglobin 2+ H TRACE Urine Ketones NEGATIVE NEGATIVE Urine Leukocyte Esterase NEGATIVE NEGATIVE Urine Microscopic RBC 2-5 0-2 Urine Microscopic WBC 0-2 2-5 Urine Nitrite NEGATIVE NEGATIVE Urine Specific [place] 1.010 1.015 Urine Squamous Epithelial Cells FEW OCCASIONAL Urine Total Protein NEGATIVE NEGATIVE Urine Urobilinogen 0.2 E.U./dL 0.2 E.U./dL Urine pH 6.5 8.5 Activated Partial Thromboplast Time 31.5 Anion Gap 12 Band Neutrophils % 16.0 H Basophils # Basophils % Blood Morphology Comment Blood Urea Nitrogen < 2 L Calcium Level 8.1 L Carbon Dioxide Level 32 H Chloride Level 102 Creatinine 0.32 L Eosinophils # Eosinophils % Glucose Level 85 Hematocrit 28.2 L Hemoglobin 9.8 L INR International Normalized Ratio 1.09 Lymphocytes # 1.1 Lymphocytes % 5.0 L Magnesium Level 1.1 L Mean Corpuscular Hemoglobin 29.4 Mean Corpuscular Hemoglobin Concent 34.7 Mean Corpuscular Volume 84.9 Mean Platelet Volume 8.5 Metamyelocytes # 0.9 Metamyelocytes % 4.0 H Monocytes # Monocytes % Neutrophils # 16.8 H Neutrophils % 75.0 Nucleated Red Blood Cells # Nucleated Red Blood Cells % Platelet Count 34 L Potassium Level 3.2 L Prothrombin Time 14.1 Prothrombin Time Ratio 1.1 Red Blood Count 3.32 L Red Cell Distribution Width 16.1 H Sodium Level 143 White Blood Count 22.4 #H Urine Transitional Epithelial Cells OCCASIONAL Medications Medications Current Medications Sodium Chloride (NS) 1,000 ml @ 100 mls/hr Q10H IV Last administered on 02:54; Admin Dose 100 MLS/HR; Start 06/02/16 at 14:30 Acyclovir (Zovirax) 400 mg BID PO Last administered on 06/16/16 09:12; Admin Dose 400 MG; Start 06/02/16 at 14:30 Diphenhydramine HCl (Benadryl) 25 mg Q4H PRN IV ALLERGIC REACTION Last administered on 06/06/16 20:26; Admin Dose 25 MG; Start 06/02/16 at 18:30 Dexamethasone (Decadron) 10 mg Q4H PRN IV ALLERGIC REACTION; Start 06/02/16 at 18:30 Fluconazole 100 mg 100 mg DAILY PO Last administered on 06/08/16 09:58; Admin Dose 100 MG; Start 06/03/16 at 09:00; Status Future Hold Ondansetron HCl/ Sodium Chloride (Zofran Inj/NS) 54 ml @ 216 mls/hr Q6H PRN IV NAUSEA AND/OR VOMITING; Start 06/02/16 at 18:30 Ondansetron HCl (Zofran Inj) 4 mg Q6H PRN IV NAUSEA AND/OR VOMITING Last administered on 06/16/16at 02:20; Admin Dose 4 MG; Start 06/03/16 at 17:00 Acetaminophen (Tylenol Tab) 650 mg Q6H PRN PO PAIN LEVEL 1-3 OR FEVER Last administered on 06/11/16at 21:50; Admin Dose 650 MG; Start 06/03/16 at 17:00 Acetaminophen (Tylenol Supp) 650 mg Q6H PRN [place] PAIN LEVEL 1-3 OR FEVER Last administered on 06/09/16at 03:37; Admin Dose 650 MG; Start 06/03/16 at 17:00 Docusate Sodium (Colace) 100 mg Q12H PRN PO CONSTIPATION; Start 06/03/16 at 17 :00 Magnesium Hydroxide (Milk Of Mag) 30 ml DAILY PRN PO CONSTIPATION; Start 06/03 at 17:00 Bisacodyl (Dulcolax) 5 mg DAILY PRN PO CONSTIPATION; Start 06/03/16 at 17:00 Bisacodyl (Dulcolax Supp) 10 mg DAILY PRN [place] CONSTIPATION; Start 06/03/16 at 17:00 Sodium Biphosphate/ Sodium Phosphate (Fleet Enema) 133 ml DAILY PRN [place] CONSTIPATION; Start 06/03/16 at 17:00 Enoxaparin Sodium (Lovenox) 30 mg DAILY SC Last administered on 06/12/16at 08: 27; Admin Dose 30 MG; Start 06/04/16 at 09:00; Status Future Hold Allopurinol (Zyloprim) 300 mg DAILY PO Last administered on 06/16/16at 09:12; Admin Dose 300 MG; Start 06/04/16 at 09:00 Eye Lubricant (Artificial Tears Oph) 2 drop QID BOTH EYES Last administered on 06/16/16at 13:25; Admin Dose 2 DROP; Start 06/03/16 at 21:00 Eye Lubricant ([place]wa Oint) 1 applic DAILY BOTH EYES Last administered on at 09:13; Admin Dose 1 APPLIC; Start 06/04/16 at 09:00 Gabapentin (Neurontin) 200 mg TID PO Last administered on 06/16/16at 13:26; Admin Dose 200 MG; Start 06/03/16 at 21:00 Levothyroxine Sodium (Synthroid) 100 mcg DAILY@06 PO Last administered on 06/16at 06:18; Admin Dose 100 MCG; Start 06/04/16 at 06:00 Nystatin (Nystatin Susp) 5 ml QID PO Last administered on 06/16/16at 13:26; Admin Dose 5 ML; Start 06/03/16 at 21:00 Mupirocin (Bactroban) 1 applic BID TOP Last administered on 06/16/16at 09:12; Admin Dose 1 APPLIC; Start 06/04/16 at 21:00 Pantoprazole (Protonix Iv) 40 mg DAILY@06 IV Last administered on 06/16/16at 06 :18; Admin Dose 40 MG; Start 06/09/16 at 06:00 Lorazepam 1 mg 1 mg Q6H PRN IV AGITATION/ANXIETY Last administered on at 18:38; Admin Dose 1 MG; Start 06/08/16 at 18:00 Fluconazole 100 ml @ 100 mls/hr Q24H IVPB Last administered on 06/16/16at 06: 18; Admin Dose 100 MLS/HR; Start 06/09/16 at 05:30 Filgrastim/ Dextrose (Neupogen/D5W) 51.6 ml @ 103.2 mls/ hr DAILY@17 IVPB Last administered on 06/15/16at 18:54; Admin Dose 103.2 MLS/HR; Start 06/09/16 at 17:00 Acetaminophen/ Hydrocodone Bitart ([place] (5/325)) 1 tab Q6H PRN PO PAIN Last administered on 06/11/16at 17:38; Admin Dose 1 TAB; Start 06/11/16 at 17:30 Collagenase (Santyl) 1 applic DAILY TOP Last administered on 06/16/16at 09:13; Admin Dose 1 APPLIC; Start 06/12/16 at 09:00 Trimethoprim/ Sulfamethoxazole 1 tab 1 tab BID PO Last administered on at 09:12; Admin Dose 1 TAB; Start 06/13/16 at 21:00 Methotrexate 1590 mg/Sodium Chloride 1,000 ml @ 43.478 mls/ hr Q23H IV ; Start 06/16/16 at 14:00; Stop 06/17/16 at 12:59 Leucovorin Calcium 25 mg/ Dextrose 50 ml @ 50 mls/hr Q6H IV ; Start 06/18/16 at 01:00 Magnesium Sulfate 100 ml @ 25 mls/hr DAILY IVPB Last administered on at 14:27; Admin Dose 25 MLS/HR; Start 06/16/16 at 12:30; Stop 06/17/16 at 12 :59 Potassium Chloride 250 ml @ 62.5 mls/hr ONCE ONCE IVPB ; Start 06/16/16 at 12 :30; Stop 06/16/16 at 16:29 Sodium Bicarbonate/ Sodium Chloride (Na Bicarb/NS) 1,100 ml @ 125 mls/hr Q8H48M IV ; Start 06/16/16 at 14:30 GUERLINE SULLIVAN MD Jun 16, 2016 15:29
[2016-06-16 17:55] LABS: ADD UMIC YES; URINE BILIRUBIN (Dip) NEGATIVE (NEGATIVE); URINE BLOOD (Dip) TRACE (NEGATIVE); URINE COLOR LT. YELLOW (YELLOW); URINE GLUCOSE (Dip) NEGATIVE (NEGATIVE); URINE KETONES (Dip) NEGATIVE (NEGATIVE); URINE LEUKOCYTE ESTERASE (Dip) NEGATIVE (NEGATIVE); URINE NITRITE (Dip) NEGATIVE (NEGATIVE); URINE TOTAL PROTEIN (Dip) NEGATIVE (NEGATIVE); URINE UROBILINOGEN (Dip) 0.2 E.U./dL (0.1-1.0)
[2016-06-16 18:35] LABS: URINE RBCS 0-2 /HPF (0)
[2016-06-16] MEDS: DEXTROSE 5% IVPB SCH (19:00)
[2016-06-16] MEDS: FILGRASTIM IVPB SCH (19:00)
[2016-06-17] MEDS: SODIUM BICARBONATE (IV ADD) 100 MEQ in SOD CHLORIDE 0.9% 1,000 ML IV SCH ×3 (00:19→15:28)
[2016-06-17] MEDS: ALBUTEROL/IPRATROPIUM (NEB) 3 ML AMP HHN SCH ×6 (01:19→20:47)
[2016-06-17] MEDS ORDERED: SODIUM BICARBONATE (IV ADD) 150 MEQ in DEXTROSE 5% 850 ML IV SCH (03:00)
[2016-06-17 03:11] VITALS: BP 120/77; PULSE 88; RESP 18
[2016-06-17] MEDS: SOD CHLORIDE 0.9% 1,000 ML IV SCH ×2 (04:30→13:55)
[2016-06-17 06:23] LABS: HEMATOCRIT 30.7 % (37.0-47.0); HEMOGLOBIN 10.5 g/dl (12.0-16.0); MEAN CORPUSCULAR HEMOGLOBIN 29.2 pg (29.0-33.0); MEAN CORPUSCULAR HGB CONC 34.2 g/dl (32.0-37.0); MEAN CORPUSCULAR VOLUME 85.3 fl (82.0-101.0); MEAN PLATELET VOLUME 8.6 fl (7.4-10.4); PLATELET COUNT 48 10^3/UL (140-440); RED CELL DISTRIBUTION WIDTH 15.9 % (11.5-14.5); UNCORRECTED WBC 34.3 10^3/ul (4.8-10.8); WHITE BLOOD COUNT 34.3 10^3/ul (4.8-10.8)
[2016-06-17] MEDS: PANTOPRAZOLE 40 MG INJ IV SCH (06:27)
[2016-06-17] MEDS: LEVOTHYROXINE 100 MCG TAB PO SCH (06:27)
[2016-06-17] MEDS: FLUCONAZOLE 200 MG/NS (PMX) 100 ML IVPB SCH (06:27)
[2016-06-17 06:31] LABS: POTASSIUM 5.5 mmol/L (3.5-5.1)
[2016-06-17 06:33] LABS: ALBUMIN/GLOBULIN RATIO 1.11; BILIRUBIN,INDIRECT 0.1 mg/dl (0-1.1); BILIRUBIN,TOTAL 0.1 mg/dl (0.2-1.3); CREATININE 0.31 mg/dl (0.44-1.00); TOTAL PROTEIN 5.7 g/dl (6.1-8.1)
[2016-06-17 06:34] LABS: CALCIUM 8.5 mg/dl (8.4-10.2); MAGNESIUM 2.2 mg/dl (1.7-2.5)
[2016-06-17 07:22] LABS: CONDITION 1; LH ANALYZER COMMENTS 1; SUSPECT 1
[2016-06-17 08:00] VITALS: BP 140/88; PULSE 80; RESP 17
[2016-06-17 08:55] LABS: ADD UMIC YES; URINE BILIRUBIN (Dip) NEGATIVE (NEGATIVE); URINE BLOOD (Dip) TRACE (NEGATIVE); URINE COLOR LT. YELLOW (YELLOW); URINE GLUCOSE (Dip) NEGATIVE (NEGATIVE); URINE KETONES (Dip) NEGATIVE (NEGATIVE); URINE LEUKOCYTE ESTERASE (Dip) NEGATIVE (NEGATIVE); URINE NITRITE (Dip) NEGATIVE (NEGATIVE); URINE TOTAL PROTEIN (Dip) NEGATIVE (NEGATIVE); URINE UROBILINOGEN (Dip) 0.2 E.U./dL (0.1-1.0)
[2016-06-17 09:12] LABS: BACTERIA,URINE FEW; URINE RBCS 0-2 /HPF (0)
[2016-06-17] MEDS: ARTIFICIAL TEARS 15 ML OPH BOTH EYES SCH ×4 (10:05→20:18)
[2016-06-17] MEDS: GABAPENTIN 100 MG CAP PO SCH ×3 (10:05→20:18)
[2016-06-17] MEDS: NYSTATIN SUSP 5 ML CUP PO SCH ×4 (10:05→20:18)
[2016-06-17] MEDS: OCULAR LUBRICANT 3.5 GM OPH OINT BOTH EYES SCH (10:06)
[2016-06-17] MEDS: ACYCLOVIR 400 MG TAB PO SCH ×2 (10:06→20:18)
[2016-06-17] MEDS: TRIMETHOPRIM/SULFAMETHOX (DS) TAB PO SCH ×2 (10:06→20:18)
[2016-06-17] MEDS: ALLOPURINOL 300 MG TAB PO SCH (10:06)
[2016-06-17] MEDS: MAGNESIUM SULFATE 4 GM/100 ML 100 ML IVPB SCH (10:08)
[2016-06-17] MEDS: COLLAGENASE 30 GM TUBE TOP SCH (10:08)
[2016-06-17] MEDS: MUPIROCIN 2% 22 GM OINT TOP SCH ×2 (10:08→20:19)
[2016-06-17 10:47] LABS: LYMPHOCYTES # 1.4 10^3/ul (0.8-2.9); NEUTROPHIL # 24.4 10^3/ul (1.6-7.5)
[2016-06-17 10:48] LABS: PLATELET ESTIMATE PLT APPEAR DECREASED
[2016-06-17 12:00] VITALS: BP 98/58; PULSE 84; RESP 18
[2016-06-17 13:27] LABS: ADD UMIC YES; URINE BILIRUBIN (Dip) NEGATIVE (NEGATIVE); URINE BLOOD (Dip) TRACE (NEGATIVE); URINE COLOR LT. YELLOW (YELLOW); URINE GLUCOSE (Dip) NEGATIVE (NEGATIVE); URINE KETONES (Dip) NEGATIVE (NEGATIVE); URINE LEUKOCYTE ESTERASE (Dip) NEGATIVE (NEGATIVE); URINE NITRITE (Dip) NEGATIVE (NEGATIVE); URINE TOTAL PROTEIN (Dip) NEGATIVE (NEGATIVE); URINE UROBILINOGEN (Dip) 0.2 E.U./dL (0.1-1.0)
[2016-06-17 13:56] LABS: BACTERIA,URINE RARE; URINE RBCS 0-2 /HPF (0)
--- NOTE | 2016-06-17 14:27 | CONS ---
Date/Time of Note Date/Time of Note DATE: 06/17/16 TIME: 14:27 Consult Date/Type/Reason Admit Date/Time Jun 02, 2016 at 15:10 Initial Consult Date 06/02/16 Type of Consultation: ID Ordering Provider: TELLY SOLANO MD Subjective alert, feels good, looks good, no fevers Objective Vital Signs Date Time Temp Pulse Resp B/P Pulse Ox O2 Delivery O2 Flow Rate FiO2 06/17/16 12:18 76 20 97 Aerosol 28 T Tube 06/17/16 12:00 98.0 98/58 4.0 Intake and Output 06/16/16 06/16/16 06/17/16 15:00 23:00 07:00 Intake Total 1683.7 ml 1749.4 ml Output Total 1300 ml 800 ml Balance 383.7 ml 949.4 ml Results/Medications Result Diagram: 06/17/16 0420 06/17/16 0420 Results 24 hrs Laboratory Tests Test 06/16/16 17:30 06/17/16 04:20 06/17/16 06:15 06/17/16 11:00 Urine Bilirubin NEGATIVE NEGATIVE NEGATIVE Urine Clarity CLEAR CLEAR CLEAR Urine Color LT. YELLOW LT. YELLOW LT. YELLOW Urine Epithelial Cells FEW FEW RARE Urine Glucose NEGATIVE NEGATIVE NEGATIVE Urine Hemoglobin TRACE TRACE TRACE Urine Ketones NEGATIVE NEGATIVE NEGATIVE Urine Leukocyte Esterase NEGATIVE NEGATIVE NEGATIVE Urine Microscopic RBC 0-2 0-2 0-2 Urine Microscopic WBC 0-2 0-2 0-2 Urine Nitrite NEGATIVE NEGATIVE NEGATIVE Urine Specific [place] 1.015 1.010 1.015 Urine Total Protein NEGATIVE NEGATIVE NEGATIVE Urine Urobilinogen 0.2 E.U./dL 0.2 E.U./dL 0.2 E.U./dL Urine pH 8.5 7.0 8.0 Alanine Aminotransferase (ALT/SGPT) 62 Albumin 3.0 L Albumin/Globulin Ratio 1.11 Alkaline Phosphatase 171 H Anion Gap 16 Aspartate Amino Transf (AST/SGOT) 55 H Band Neutrophils % 22.0 H Basophils # Basophils % Blood Morphology Comment Blood Urea Nitrogen 4 L Calcium Level 8.5 Carbon Dioxide Level 31 Chloride Level 104 Creatinine 0.31 L Direct Bilirubin 0.00 Eosinophils # Eosinophils % Globulin 2.70 Glucose Level 126 # Hematocrit 30.7 L Hemoglobin 10.5 L Indirect Bilirubin 0.1 Lymphocytes # 1.4 Lymphocytes % 4.0 L Magnesium Level 2.2 # Mean Corpuscular Hemoglobin 29.2 Mean Corpuscular Hemoglobin Concent 34.2 Mean Corpuscular Volume 85.3 Mean Platelet Volume 8.6 Monocytes # 1.0 H Monocytes % 3.0 Neutrophils # 24.4 H Neutrophils % 71.0 Nucleated Red Blood Cells # Nucleated Red Blood Cells % Platelet Count 48 #L Platelet Estimate PLT APPEAR DECREASED Potassium Level 5.5 #H Red Blood Count 3.60 L Red Cell Distribution Width 15.9 H Sodium Level 145 H Total Bilirubin 0.1 L Total Protein 5.7 L White Blood Count 34.3 #H Urine Bacteria FEW RARE Medications Current Medications Sodium Chloride (NS) 1,000 ml @ 100 mls/hr Q10H IV Last administered on 02:54; Admin Dose 100 MLS/HR; Start 06/02/16 at 14:30 Acyclovir (Zovirax) 400 mg BID PO Last administered on 06/17/16at 10:06; Admin Dose 400 MG; Start 06/02/16 at 14:30 Diphenhydramine HCl (Benadryl) 25 mg Q4H PRN IV ALLERGIC REACTION Last administered on 06/06/16at 20:26; Admin Dose 25 MG; Start 06/02/16 at 18:30 Dexamethasone (Decadron) 10 mg Q4H PRN IV ALLERGIC REACTION; Start 06/02/16 at 18:30 Fluconazole 100 mg 100 mg DAILY PO Last administered on 06/08/16at 09:58; Admin Dose 100 MG; Start 06/03/16 at 09:00; Status Future Hold Ondansetron HCl/ Sodium Chloride (Zofran Inj/NS) 54 ml @ 216 mls/hr Q6H PRN IV NAUSEA AND/OR VOMITING; Start 06/02/16 at 18:30 Ondansetron HCl (Zofran Inj) 4 mg Q6H PRN IV NAUSEA AND/OR VOMITING Last administered on 06/16/16at 02:20; Admin Dose 4 MG; Start 06/03/16 at 17:00 Acetaminophen (Tylenol Tab) 650 mg Q6H PRN PO PAIN LEVEL 1-3 OR FEVER Last administered on 06/11/16at 21:50; Admin Dose 650 MG; Start 06/03/16 at 17:00 Acetaminophen (Tylenol Supp) 650 mg Q6H PRN [place] PAIN LEVEL 1-3 OR FEVER Last administered on 06/09/16at 03:37; Admin Dose 650 MG; Start 06/03/16 at 17:00 Docusate Sodium (Colace) 100 mg Q12H PRN PO CONSTIPATION; Start 06/03/16 at 17 :00 Magnesium Hydroxide (Milk Of Mag) 30 ml DAILY PRN PO CONSTIPATION; Start 06/03 at 17:00 Bisacodyl (Dulcolax) 5 mg DAILY PRN PO CONSTIPATION; Start 06/03/16 at 17:00 Bisacodyl (Dulcolax Supp) 10 mg DAILY PRN [place] CONSTIPATION; Start 06/03/16 at 17:00 Sodium Biphosphate/ Sodium Phosphate (Fleet Enema) 133 ml DAILY PRN [place] CONSTIPATION; Start 06/03/16 at 17:00 Enoxaparin Sodium (Lovenox) 30 mg DAILY SC Last administered on 06/12/16at 08: 27; Admin Dose 30 MG; Start 06/04/16 at 09:00; Status Future Hold Allopurinol (Zyloprim) 300 mg DAILY PO Last administered on 06/17/16at 10:06; Admin Dose 300 MG; Start 06/04/16 at 09:00 Eye Lubricant (Artificial Tears Oph) 2 drop QID BOTH EYES Last administered on 06/17/16at 13:50; Admin Dose 2 DROP; Start 06/03/16 at 21:00 Eye Lubricant ([place] Oint) 1 applic DAILY BOTH EYES Last administered on at 10:06; Admin Dose 1 APPLIC; Start 06/04/16 at 09:00 Gabapentin (Neurontin) 200 mg TID PO Last administered on 06/17/16at 13:50; Admin Dose 200 MG; Start 06/03/16 at 21:00 Levothyroxine Sodium (Synthroid) 100 mcg DAILY@06 PO Last administered on 06/17at 06:27; Admin Dose 100 MCG; Start 06/04/16 at 06:00 Nystatin (Nystatin Susp) 5 ml QID PO Last administered on 06/17/16at 13:50; Admin Dose 5 ML; Start 06/03/16 at 21:00 Mupirocin (Bactroban) 1 applic BID TOP Last administered on 06/17/16at 10:08; Admin Dose 1 APPLIC; Start 06/04/16 at 21:00 Pantoprazole (Protonix Iv) 40 mg DAILY@06 IV Last administered on 06/17/16at 06 :27; Admin Dose 40 MG; Start 06/09/16 at 06:00 Lorazepam 1 mg 1 mg Q6H PRN IV AGITATION/ANXIETY Last administered on at 18:38; Admin Dose 1 MG; Start 06/08/16 at 18:00 Fluconazole (Diflucan 200 Mg/ NS (Pmx)) 100 ml @ 100 mls/hr Q24H IVPB Last administered on 06/17/16at 06:27; Admin Dose 100 MLS/HR; Start 06/09/16 at 05: 30 Acetaminophen/ Hydrocodone Bitart ([place] (5/325)) 1 tab Q6H PRN PO PAIN Last administered on 06/11/16at 17:38; Admin Dose 1 TAB; Start 06/11/16 at 17:30 Collagenase (Santyl) 1 applic DAILY TOP Last administered on 06/17/16at 10:08; Admin Dose 1 APPLIC; Start 06/12/16 at 09:00 Trimethoprim/ Sulfamethoxazole 1 tab 1 tab BID PO Last administered on at 10:06; Admin Dose 1 TAB; Start 06/13/16 at 21:00 Leucovorin Calcium 25 mg/ Dextrose 50 ml @ 50 mls/hr Q6H IV ; Start 06/18/16 at 04:30 Sodium Bicarbonate/ Sodium Chloride (Na Bicarb/NS) 1,100 ml @ 125 mls/hr Q8H48M IV Last administered on 06/17/16at 00:19; Admin Dose 125 MLS/HR; Start 06/16/16 at 14:30 Assessment/Plan Chief Complaint/Hosp Course MICROBIOLOGY: Blood cultures from 06/08/2016 grew coagulase-negative staph species. Repeat blood cultures negative. Nares swab/sputum cx positive for MRSA. INDWELLINGS: Trach and left upper extremity PICC line. ANTIMICROBIALS: 1. PO Bactrim 2. Topical Bactroban to nares. 3. Fluconazole. 4. Acyclovir. PHYSICAL EXAMINATION: GENERAL: This is a well-developed, ill-appearing, middle-aged [place] woman who is alert, in no distress. HEENT: Head atraumatic, normocephalic. Sclerae anicteric. Buccal mucosa pink. NECK: Supple. Tracheostomy present. CHEST: Rise symmetrical. Breath sounds CTA. HEART: S1, S2. ABDOMEN: Soft, bowel tones present. EXTREMITIES: Without cyanosis. ASSESSMENT: 1. S/p sepsis with high fevers likely secondary to neutropenia. 2. Coagulase-negative Staphylococcus bacteremia cw contaminant. 3. Methicillin-resistant Staphylococcus aureus nares colonization. 4. Possible aspiration pneumonia===> sputum cx + MRSA. 5. Stage IIA Burkitt's lymphoma, getting chemotherapy. The next cycle on Thursday. 6. Respiratory failure, status post tracheostomy secondary to a neck mass causing tracheal compression and airway compromise, remains on trach collar. 7. Leukocytosis==> s/p Neupogen PLAN: Remains stable, continue abx/ Bactroban to nares. Chemo per oncology [facility] staff/pt Problems: RODRÍGUEZ ERAZO NP Jun 17, 2016 14:27
[2016-06-17 17:30] VITALS: BP 125/63; PULSE 84; RESP 17
--- NOTE | 2016-06-17 17:33 | PN ---
Date/Time of Note Date/Time of Note DATE: 06/17/16 TIME: 17:32 Assessment/Plan VTE Prophylaxis VTE Prophylaxis Intervention: other Lines/Catheters IV Catheter Type (from Nrs): PICC Line Central line still needed: Yes Urinary Cath still in place: No Reason Cath still needed: other (indicate) Assessment/Plan Chief Complaint/Hosp Course IMPRESSION: The patient has Burkitt's lymphoma status post tracheostomy, status post thyroid mass, status post pancytopenia, abnormal liver function test. 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 PLAN PER DR MERLOS ANTIBIOTIC IV FLUID LYTES REPLACEMENT Problems: Subjective 24 Hr Interval Summary Respiratory: no complaints Cardiovascular: no complaints Gastrointestinal: no complaints Exam/Review of Systems Vital Signs Vitals Vital Signs Date Time Temp Pulse Resp B/P Pulse Ox O2 Delivery O2 Flow Rate FiO2 06/17/16 16:32 71 20 98 Aerosol 28 T Tube 06/17/16 12:00 98.0 98/58 4.0 Intake and Output 06/16/16 06/16/16 06/17/16 15:00 23:00 07:00 Intake Total 1683.7 ml 1749.4 ml Output Total 1300 ml 800 ml Balance 383.7 ml 949.4 ml Exam Neck: supple Respiratory: diminished breath sounds Cardiovascular: regular rate and rhythm Gastrointestinal: soft Musculoskeletal: nl extremities to inspection Extremities: normal pulses Results Result Diagram: 06/17/16 0420 06/17/16 0420 Results 24 hrs Laboratory Tests Test 06/17/16 04:20 06/17/16 06:15 06/17/16 11:00 Alanine Aminotransferase (ALT/SGPT) 62 Albumin 3.0 L Albumin/Globulin Ratio 1.11 Alkaline Phosphatase 171 H Anion Gap 16 Aspartate Amino Transf (AST/SGOT) 55 H Band Neutrophils % 22.0 H Basophils # Basophils % Blood Morphology Comment Blood Urea Nitrogen 4 L Calcium Level 8.5 Carbon Dioxide Level 31 Chloride Level 104 Creatinine 0.31 L Direct Bilirubin 0.00 Eosinophils # Eosinophils % Globulin 2.70 Glucose Level 126 # Hematocrit 30.7 L Hemoglobin 10.5 L Indirect Bilirubin 0.1 Lymphocytes # 1.4 Lymphocytes % 4.0 L Magnesium Level 2.2 # Mean Corpuscular Hemoglobin 29.2 Mean Corpuscular Hemoglobin Concent 34.2 Mean Corpuscular Volume 85.3 Mean Platelet Volume 8.6 Monocytes # 1.0 H Monocytes % 3.0 Neutrophils # 24.4 H Neutrophils % 71.0 Nucleated Red Blood Cells # Nucleated Red Blood Cells % Platelet Count 48 #L Platelet Estimate PLT APPEAR DECREASED Potassium Level 5.5 #H Red Blood Count 3.60 L Red Cell Distribution Width 15.9 H Sodium Level 145 H Total Bilirubin 0.1 L Total Protein 5.7 L White Blood Count 34.3 #H Urine Bacteria FEW RARE Urine Bilirubin NEGATIVE NEGATIVE Urine Clarity CLEAR CLEAR Urine Color LT. YELLOW LT. YELLOW Urine Epithelial Cells FEW RARE Urine Glucose NEGATIVE NEGATIVE Urine Hemoglobin TRACE TRACE Urine Ketones NEGATIVE NEGATIVE Urine Leukocyte Esterase NEGATIVE NEGATIVE Urine Microscopic RBC 0-2 0-2 Urine Microscopic WBC 0-2 0-2 Urine Nitrite NEGATIVE NEGATIVE Urine Specific [place] 1.010 1.015 Urine Total Protein NEGATIVE NEGATIVE Urine Urobilinogen 0.2 E.U./dL 0.2 E.U./dL Urine pH 7.0 8.0 Medications Medications Current Medications Sodium Chloride (NS) 1,000 ml @ 100 mls/hr Q10H IV Last administered on at 02:54; Admin Dose 100 MLS/HR; Start 06/02/16 at 14:30 Acyclovir (Zovirax) 400 mg BID PO Last administered on 06/17/16at 10:06; Admin Dose 400 MG; Start 06/02/16 at 14:30 Diphenhydramine HCl (Benadryl) 25 mg Q4H PRN IV ALLERGIC REACTION Last administered on 06/06/16at 20:26; Admin Dose 25 MG; Start 06/02/16 at 18:30 Dexamethasone (Decadron) 10 mg Q4H PRN IV ALLERGIC REACTION; Start 06/02/16 at 18:30 Fluconazole 100 mg 100 mg DAILY PO Last administered on 06/08/16at 09:58; Admin Dose 100 MG; Start 06/03/16 at 09:00; Status Future Hold Ondansetron HCl/ Sodium Chloride (Zofran Inj/NS) 54 ml @ 216 mls/hr Q6H PRN IV NAUSEA AND/OR VOMITING; Start 06/02/16 at 18:30 Ondansetron HCl (Zofran Inj) 4 mg Q6H PRN IV NAUSEA AND/OR VOMITING Last administered on 06/16/16at 02:20; Admin Dose 4 MG; Start 06/03/16 at 17:00 Acetaminophen (Tylenol Tab) 650 mg Q6H PRN PO PAIN LEVEL 1-3 OR FEVER Last administered on 06/11/16at 21:50; Admin Dose 650 MG; Start 06/03/16 at 17:00 Acetaminophen (Tylenol Supp) 650 mg Q6H PRN [place] PAIN LEVEL 1-3 OR FEVER Last administered on 06/09/16at 03:37; Admin Dose 650 MG; Start 06/03/16 at 17:00 Docusate Sodium (Colace) 100 mg Q12H PRN PO CONSTIPATION; Start 06/03/16 at 17 :00 Magnesium Hydroxide (Milk Of Mag) 30 ml DAILY PRN PO CONSTIPATION; Start 06/03 at 17:00 Bisacodyl (Dulcolax) 5 mg DAILY PRN PO CONSTIPATION; Start 06/03/16 at 17:00 Bisacodyl (Dulcolax Supp) 10 mg DAILY PRN IN CONSTIPATION; Start 06/03/16 at 17:00 Sodium Biphosphate/ Sodium Phosphate (Fleet Enema) 133 ml DAILY PRN IN CONSTIPATION; Start 06/03/16 at 17:00 Enoxaparin Sodium (Lovenox) 30 mg DAILY SC Last administered on 06/12/16at 08: 27; Admin Dose 30 MG; Start 06/04/16 at 09:00; Status Future Hold Allopurinol (Zyloprim) 300 mg DAILY PO Last administered on 06/17/16at 10:06; Admin Dose 300 MG; Start 06/04/16 at 09:00 Eye Lubricant (Artificial Tears Oph) 2 drop QID BOTH EYES Last administered on 06/17/16at 17:22; Admin Dose 2 DROP; Start 06/03/16 at 21:00 Eye Lubricant (Akwa Oint) 1 applic DAILY BOTH EYES Last administered on at 10:06; Admin Dose 1 APPLIC; Start 06/04/16 at 09:00 Gabapentin (Neurontin) 200 mg TID PO Last administered on 06/17/16at 13:50; Admin Dose 200 MG; Start 06/03/16 at 21:00 Levothyroxine Sodium (Synthroid) 100 mcg DAILY@06 PO Last administered on 06/17at 06:27; Admin Dose 100 MCG; Start 12/14/16 at 06:00 Nystatin (Nystatin Susp) 5 ml QID PO Last administered on 06/17/16 17:22; Admin Dose 5 ML; Start 06/03/16 at 21:00 Mupirocin (Bactroban) 1 applic BID TOP Last administered on 06/17/16 10:08; Admin Dose 1 APPLIC; Start 06/04/16 at 21:00 Pantoprazole (Protonix Iv) 40 mg DAILY@06 IV Last administered on 06/17/16 06 :27; Admin Dose 40 MG; Start 06/09/16 at 06:00 Lorazepam 1 mg 1 mg Q6H PRN IV AGITATION/ANXIETY Last administered on 18:38; Admin Dose 1 MG; Start 06/08/16 at 18:00 Fluconazole (Diflucan 200 Mg/ NS (Pmx)) 100 ml @ 100 mls/hr Q24H IVPB Last administered on 06/17/16 06:27; Admin Dose 100 MLS/HR; Start 06/09/16 at 05: 30 Acetaminophen/ Hydrocodone Bitart ([place] (5/325)) 1 tab Q6H PRN PO PAIN Last administered on 06/11/16 17:38; Admin Dose 1 TAB; Start 06/11/16 at 17:30 Collagenase (Santyl) 1 applic DAILY TOP Last administered on 06/17/16 10:08; Admin Dose 1 APPLIC; Start 06/12/16 at 09:00 Trimethoprim/ Sulfamethoxazole 1 tab 1 tab BID PO Last administered on 10:06; Admin Dose 1 TAB; Start 06/13/16 at 21:00 Leucovorin Calcium 25 mg/ Dextrose 50 ml @ 50 mls/hr Q6H IV ; Start 06/18/16 at 04:30 Sodium Bicarbonate/ Sodium Chloride (Na Bicarb/NS) 1,100 ml @ 125 mls/hr Q8H48M IV Last administered on 06/17/16 15:28; Admin Dose 125 MLS/HR; Start 06/16/16 at 14:30 GUERLINE SULLIVAN MD Jun 17, 2016 17:33
[2016-06-17 19:39] LABS: ADD UMIC YES; URINE BILIRUBIN (Dip) NEGATIVE (NEGATIVE); URINE BLOOD (Dip) TRACE (NEGATIVE); URINE COLOR LT. YELLOW (YELLOW); URINE GLUCOSE (Dip) NEGATIVE (NEGATIVE); URINE KETONES (Dip) NEGATIVE (NEGATIVE); URINE LEUKOCYTE ESTERASE (Dip) TRACE (NEGATIVE); URINE NITRITE (Dip) NEGATIVE (NEGATIVE); URINE TOTAL PROTEIN (Dip) NEGATIVE (NEGATIVE); URINE UROBILINOGEN (Dip) 0.2 E.U./dL (0.1-1.0)
[2016-06-17 20:00] LABS: URINE RBCS 0-2 /HPF (0)
[2016-06-17 20:01] LABS: BACTERIA,URINE FEW
[2016-06-17 20:20] VITALS: BP 126/64; PULSE 80; RESP 21
[2016-06-17] MEDS ORDERED: DEXTROSE 5% IV SCH (23:00)
[2016-06-17] MEDS ORDERED: LEUCOVORIN CALCIUM IV SCH (23:00)
[2016-06-18] MEDS: SOD CHLORIDE 0.9% 1,000 ML IV SCH ×3 (00:30→20:07)
[2016-06-18] MEDS: SODIUM BICARBONATE (IV ADD) 100 MEQ in SOD CHLORIDE 0.9% 1,000 ML IV SCH ×3 (00:31→20:07)
[2016-06-18] MEDS: ALBUTEROL/IPRATROPIUM (NEB) 3 ML AMP HHN SCH ×6 (00:34→20:58)
[2016-06-18] MEDS: DEXTROSE 5% IV SCH ×4 (04:12→23:00)
[2016-06-18] MEDS: LEUCOVORIN CALCIUM IV SCH ×4 (04:12→23:00)
[2016-06-18] MEDS: FLUCONAZOLE 200 MG/NS (PMX) 100 ML IVPB SCH (05:35)
[2016-06-18] MEDS: LEVOTHYROXINE 100 MCG TAB PO SCH (06:00)
[2016-06-18] MEDS: PANTOPRAZOLE 40 MG INJ IV SCH (06:00)
[2016-06-18 07:35] VITALS: BP 118/81; PULSE 98; RESP 18
[2016-06-18 07:45] LABS: HEMATOCRIT 28.1 % (37.0-47.0); HEMOGLOBIN 9.5 g/dl (12.0-16.0); MEAN CORPUSCULAR HEMOGLOBIN 28.9 pg (29.0-33.0); MEAN CORPUSCULAR HGB CONC 33.7 g/dl (32.0-37.0); MEAN CORPUSCULAR VOLUME 85.8 fl (82.0-101.0); MEAN PLATELET VOLUME 8.3 fl (7.4-10.4); PLATELET COUNT 51 10^3/UL (140-440); RED BLOOD COUNT 3.27 10^6/ul (4.20-5.40); RED CELL DISTRIBUTION WIDTH 16.7 % (11.5-14.5); UNCORRECTED WBC 11.4 10^3/ul (4.8-10.8); WHITE BLOOD COUNT 11.4 10^3/ul (4.8-10.8)
[2016-06-18 07:49] LABS: ALBUMIN 2.8 g/dl (3.3-4.9)
[2016-06-18 07:50] LABS: POTASSIUM 3.8 mmol/L (3.5-5.1)
[2016-06-18 07:52] LABS: ALBUMIN/GLOBULIN RATIO 1.16; BILIRUBIN,INDIRECT 0.2 mg/dl (0-1.1); BILIRUBIN,TOTAL 0.2 mg/dl (0.2-1.3); CREATININE 0.33 mg/dl (0.44-1.00); TOTAL PROTEIN 5.2 g/dl (6.1-8.1)
[2016-06-18 07:53] LABS: CALCIUM 8.2 mg/dl (8.4-10.2); URIC ACID 1.2 mg/dl (3.1-7.9)
[2016-06-18 07:54] LABS: CONDITION 1; LH ANALYZER COMMENTS 1; SUSPECT 1
[2016-06-18 09:13] LABS: LYMPHOCYTES # 0.9 10^3/ul (0.8-2.9); MONOCYTE # 0.1 10^3/ul (0.3-0.9); NEUTROPHIL # 10.1 10^3/ul (1.6-7.5)
[2016-06-18] MEDS: NYSTATIN SUSP 5 ML CUP PO SCH ×6 (09:33→21:19)
[2016-06-18] MEDS: ACYCLOVIR 400 MG TAB PO SCH ×2 (09:33→21:19)
[2016-06-18] MEDS: TRIMETHOPRIM/SULFAMETHOX (DS) TAB PO SCH ×2 (09:33→21:18)
[2016-06-18] MEDS: GABAPENTIN 100 MG CAP PO SCH ×3 (09:33→21:19)
[2016-06-18] MEDS: ALLOPURINOL 300 MG TAB PO SCH (09:33)
[2016-06-18] MEDS: OCULAR LUBRICANT 3.5 GM OPH OINT BOTH EYES SCH (09:34)
[2016-06-18] MEDS: ARTIFICIAL TEARS 15 ML OPH BOTH EYES SCH ×4 (09:34→21:18)
[2016-06-18] MEDS: MUPIROCIN 2% 22 GM OINT TOP SCH ×2 (09:34→21:18)
[2016-06-18] MEDS: COLLAGENASE 30 GM TUBE TOP SCH (09:35)
--- NOTE | 2016-06-18 14:09 | CONS ---
Date/Time of Note Date/Time of Note DATE: 06/18/16 TIME: 14:08 Consult Date/Type/Reason Admit Date/Time Jun 02, 2016 at 15:10 Initial Consult Date 06/02/16 Type of Consultation: ID Ordering Provider: TELLY SOLANO MD Subjective alert, feels ok, lost voice, no fevers, nad Objective Vital Signs Date Time Temp Pulse Resp B/P Pulse Ox O2 Delivery O2 Flow Rate FiO2 06/18/16 13:36 90 18 97 Aerosol 5.0 28 06/18/16 07:35 98.0 118/81 Intake and Output 06/17/16 06/17/16 06/18/16 14:59 22:59 06:59 Intake Total 100 ml 1160 ml 990 ml Output Total 1200 ml Balance 100 ml -40 ml 990 ml Results/Medications Result Diagram: 06/18/16 0730 06/18/16 0630 Results 24 hrs Laboratory Tests Test 06/17/16 19:15 06/18/16 06:30 06/18/16 07:30 Urine Bacteria FEW Urine Bilirubin NEGATIVE Urine Clarity CLEAR Urine Color LT. YELLOW Urine Epithelial Cells FEW Urine Glucose NEGATIVE Urine Hemoglobin TRACE Urine Ketones NEGATIVE Urine Leukocyte Esterase TRACE H Urine Microscopic RBC 0-2 Urine Microscopic WBC 2-5 Urine Nitrite NEGATIVE Urine Specific [place] 1.020 Urine Total Protein NEGATIVE Urine Urobilinogen 0.2 E.U./dL Urine pH 8.0 Alanine Aminotransferase (ALT/SGPT) 75 H Albumin 2.8 L Albumin/Globulin Ratio 1.16 Alkaline Phosphatase 131 H Anion Gap 12 Aspartate Amino Transf (AST/SGOT) 75 H Blood Urea Nitrogen 7 Calcium Level 8.2 L Carbon Dioxide Level 33 H Chloride Level 103 Creatinine 0.33 L Direct Bilirubin 0.00 Globulin 2.40 Glucose Level 90 Indirect Bilirubin 0.2 Lactate Dehydrogenase 1727 H Potassium Level 3.8 Sodium Level 144 Total Bilirubin 0.2 Total Protein 5.2 L Uric Acid 1.2 L Band Neutrophils % 1.0 Basophils # Basophils % Blood Morphology Comment Differential Comment MANUAL DIFF Eosinophils # Eosinophils % Hematocrit 28.1 L Hemoglobin 9.5 L Lymphocytes # 0.9 Lymphocytes % 8.0 L Mean Corpuscular Hemoglobin 28.9 L Mean Corpuscular Hemoglobin Concent 33.7 Mean Corpuscular Volume 85.8 Mean Platelet Volume 8.3 Monocytes # 0.1 L Monocytes % 1.0 Neutrophils # 10.1 H Neutrophils % 89.0 H Nucleated Red Blood Cells # Nucleated Red Blood Cells % Platelet Count 51 L Reactive Lymphocytes % 1.0 Red Blood Count 3.27 L Red Cell Distribution Width 16.7 H White Blood Count 11.4 #H Medications Current Medications Sodium Chloride (NS) 1,000 ml @ 100 mls/hr Q10H IV Last administered on 02:54; Admin Dose 100 MLS/HR; Start 06/02/16 at 14:30 Acyclovir (Zovirax) 400 mg BID PO Last administered on 06/18/16 09:33; Admin Dose 400 MG; Start 06/02/16 at 14:30 Diphenhydramine HCl (Benadryl) 25 mg Q4H PRN IV ALLERGIC REACTION Last administered on 06/06/16at 20:26; Admin Dose 25 MG; Start 06/02/16 at 18:30 Dexamethasone (Decadron) 10 mg Q4H PRN IV ALLERGIC REACTION; Start 06/02/16 at 18:30 Fluconazole 100 mg 100 mg DAILY PO Last administered on 06/08/16at 09:58; Admin Dose 100 MG; Start 06/03/16 at 09:00; Status Future Hold Ondansetron HCl/ Sodium Chloride (Zofran Inj/NS) 54 ml @ 216 mls/hr Q6H PRN IV NAUSEA AND/OR VOMITING; Start 06/02/16 at 18:30 Ondansetron HCl (Zofran Inj) 4 mg Q6H PRN IV NAUSEA AND/OR VOMITING Last administered on 06/16/16at 02:20; Admin Dose 4 MG; Start 06/03/16 at 17:00 Acetaminophen (Tylenol Tab) 650 mg Q6H PRN PO PAIN LEVEL 1-3 OR FEVER Last administered on 06/11/16at 21:50; Admin Dose 650 MG; Start 06/03/16 at 17:00 Acetaminophen (Tylenol Supp) 650 mg Q6H PRN [place] PAIN LEVEL 1-3 OR FEVER Last administered on 06/09/16at 03:37; Admin Dose 650 MG; Start 06/03/16 at 17:00 Docusate Sodium (Colace) 100 mg Q12H PRN PO CONSTIPATION; Start 06/03/16 at 17 :00 Magnesium Hydroxide (Milk Of Mag) 30 ml DAILY PRN PO CONSTIPATION; Start 06/03 at 17:00 Bisacodyl (Dulcolax) 5 mg DAILY PRN PO CONSTIPATION; Start 06/03/16 at 17:00 Bisacodyl (Dulcolax Supp) 10 mg DAILY PRN [place] CONSTIPATION; Start 06/03/16 at 17:00 Sodium Biphosphate/ Sodium Phosphate (Fleet Enema) 133 ml DAILY PRN [place] CONSTIPATION; Start 06/03/16 at 17:00 Enoxaparin Sodium (Lovenox) 30 mg DAILY SC Last administered on 06/12/16 08: 27; Admin Dose 30 MG; Start 06/04/16 at 09:00; Status Future Hold Allopurinol (Zyloprim) 300 mg DAILY PO Last administered on 06/18/16 09:33; Admin Dose 300 MG; Start 06/04/16 at 09:00 Eye Lubricant (Artificial Tears Oph) 2 drop QID BOTH EYES Last administered on 06/18/16 13:54; Admin Dose 2 DROP; Start 06/03/16 at 21:00 Eye Lubricant (Akwa Oint) 1 applic DAILY BOTH EYES Last administered on 09:34; Admin Dose 1 APPLIC; Start 06/04/16 at 09:00 Gabapentin (Neurontin) 200 mg TID PO Last administered on 06/18/16 13:54; Admin Dose 200 MG; Start 06/03/16 at 21:00 Levothyroxine Sodium (Synthroid) 100 mcg DAILY@06 PO Last administered on 06/18 06:00; Admin Dose 100 MCG; Start 06/04/16 at 06:00 Nystatin (Nystatin Susp) 5 ml QID PO Last administered on 06/18/16 13:54; Admin Dose 5 ML; Start 06/03/16 at 21:00 Mupirocin (Bactroban) 1 applic BID TOP Last administered on 06/18/16 09:34; Admin Dose 1 APPLIC; Start 06/04/16 at 21:00 Pantoprazole (Protonix Iv) 40 mg DAILY@06 IV Last administered on 06/18/16 06 :00; Admin Dose 40 MG; Start 06/09/16 at 06:00 Lorazepam 1 mg 1 mg Q6H PRN IV AGITATION/ANXIETY Last administered on at 18:38; Admin Dose 1 MG; Start 06/08/16 at 18:00 Fluconazole (Diflucan 200 Mg/ NS (Pmx)) 100 ml @ 100 mls/hr Q24H IVPB Last administered on 06/18/16at 05:35; Admin Dose 100 MLS/HR; Start 06/09/16 at 05: 30 Acetaminophen/ Hydrocodone Bitart ([place] (5/325)) 1 tab Q6H PRN PO PAIN Last administered on 06/11/16at 17:38; Admin Dose 1 TAB; Start 06/11/16 at 17:30 Collagenase (Santyl) 1 applic DAILY TOP Last administered on 06/18/16at 09:35; Admin Dose 1 APPLIC; Start 06/12/16 at 09:00 Trimethoprim/ Sulfamethoxazole 1 tab 1 tab BID PO Last administered on at 09:33; Admin Dose 1 TAB; Start 06/13/16 at 21:00 Leucovorin Calcium 25 mg/ Dextrose 50 ml @ 50 mls/hr Q6H IV Last administered on 06/18/16at 12:08; Admin Dose 50 MLS/HR; Start 06/18/16 at 04:30 Sodium Bicarbonate/ Sodium Chloride (Na Bicarb/NS) 1,100 ml @ 125 mls/hr Q8H48M IV Last administered on 06/18/16at 13:53; Admin Dose 125 MLS/HR; Start 06/16/16 at 14:30 Assessment/Plan Chief Complaint/Hosp Course MICROBIOLOGY: Blood cultures from 06/08/2016 grew coagulase-negative staph species. Repeat blood cultures negative. Nares swab/sputum cx positive for MRSA. INDWELLINGS: Trach and left upper extremity PICC line. ANTIMICROBIALS: 1. PO Bactrim 2. Topical Bactroban to nares. 3. Fluconazole. 4. Acyclovir. PHYSICAL EXAMINATION: GENERAL: This is a well-developed, ill-appearing, middle-aged [place] woman who is alert, in no distress. HEENT: Head atraumatic, normocephalic. Sclerae anicteric. Buccal mucosa pink. NECK: Supple. Tracheostomy present. CHEST: Rise symmetrical. Breath sounds CTA. HEART: S1, S2. ABDOMEN: Soft, bowel tones present. EXTREMITIES: Without cyanosis. ASSESSMENT: 1. S/p sepsis with high fevers likely secondary to neutropenia. 2. Coagulase-negative Staphylococcus bacteremia cw contaminant. 3. Methicillin-resistant Staphylococcus aureus nares colonization. 4. Possible aspiration pneumonia===> sputum cx + MRSA. 5. Stage IIA Burkitt's lymphoma, getting chemotherapy. The next cycle on Thursday. 6. Respiratory failure, status post tracheostomy secondary to a neck mass causing tracheal compression and airway compromise, remains on trach collar. 7. Leukocytosis==> s/p Neupogen 8. Oral thrush PLAN: Remains stable, continue abx/Bactroban to nares, add oral Nystatin. Chemo per oncology [facility] staff/pt Problems: RODRÍGUEZ ERAZO NP Jun 18, 2016 14:09
--- NOTE | 2016-06-18 15:22 | CONS ---
Date/Time of Note Date/Time of Note DATE: 06/18/16 TIME: 15:21 Assessment/Plan Assessment/Plan Chief Complaint/Hosp Course Assessment/Plan # Burkitt's lymphoma -continue with cycle 1 R CODOX -M -Rituximab (Rituxan) as follows: * Cycle 1: 375 mg/m2 (660mg) IV on Day 1 -Cyclophosphamide (Cytoxan) 800 mg/m2 ( 1415mg) IV once per day on days 1 & 2 -Vincristine (Oncovin) 1.0 mg (dose reduced for neuropathy) days 1 & 15 . next dose due on 06/17 -Doxorubicin (Adriamycin) 50 mg/m2 (88mg) IV once on day 1 -Methotrexate (MTX) 100mg/m2 (175mg) IV over 1 hour then 900mg/m2 (1590mg) over 23 hours on day 15. will start IVF with 2 amps Na HCo3 prior to MTX infusion since Urine Ph > 7.0. Leucovorin 25mg IV q 4 hours will start 36 hours after MTX starts until MTX level is < 0.05. next dose due today 06/16. Pending 48 hour MTX level, if > 0.5 will need to increase bicarb and/or leucovorin. # Neutropenic fever -pt is now afebrile and will dc precautions -held dose yesterday for neupogen, will resart today for 5 days (D3-7) as WBC now dropping and will be expected to continue to decline. -continue antibiotics. 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 all steroids should be discontinued for now unless they are part of the chemotherapy regimen -continue to work with physical therapy. 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 -uric acid level ok -will continue to monitor LDH d/w nursing and checking u/a for ph every 6 hours to keep greater than 7 Problems: Consultation Date/Type/Reason Admit Date/Time Jun 02, 2016 at 15:10 Initial Consult Date 06/02/16 Type of Consultation: Hematology/Oncology Referring Provider: TELLY SOLANO MD 24 HR Interval Summary Free Text/Dictation Patient sleepy but arousable. Has no complaints but per nurse had a scratchy throat/cough earlier but improved now. Overall feels weak. Exam/Review of Systems Vital Signs Vitals Vital Signs Date Time Temp Pulse Resp B/P Pulse Ox O2 Delivery O2 Flow Rate FiO2 06/18/16 13:36 90 18 97 Aerosol 5.0 28 06/18/16 07:35 98.0 118/81 Intake and Output 06/17/16 06/17/16 06/18/16 15:00 23:00 07:00 Intake Total 100 ml 1160 ml 990 ml Output Total 1200 ml Balance 100 ml -40 ml 990 ml Exam Constitutional: alert, oriented Psych: no complaints Head: normocephalic Eyes: nl conjunctiva ENMT: nl external ears & nose Neck: other (trach in place) Respiratory: clear to auscultation, normal air movement Cardiovascular: nl pulses, regular rate and rhythm Gastrointestinal: soft Musculoskeletal: nl extremities to inspection, nl gait and stance Extremities: normal pulses Results Result Diagram: 06/18/16 0730 06/18/16 0630 Results 24 hrs Laboratory Tests Test 06/17/16 19:15 06/18/16 06:30 06/18/16 07:30 Urine Bacteria FEW Urine Bilirubin NEGATIVE Urine Clarity CLEAR Urine Color LT. YELLOW Urine Epithelial Cells FEW Urine Glucose NEGATIVE Urine Hemoglobin TRACE Urine Ketones NEGATIVE Urine Leukocyte Esterase TRACE H Urine Microscopic RBC 0-2 Urine Microscopic WBC 2-5 Urine Nitrite NEGATIVE Urine Specific [place] 1.020 Urine Total Protein NEGATIVE Urine Urobilinogen 0.2 E.U./dL Urine pH 8.0 Alanine Aminotransferase (ALT/SGPT) 75 H Albumin 2.8 L Albumin/Globulin Ratio 1.16 Alkaline Phosphatase 131 H Anion Gap 12 Aspartate Amino Transf (AST/SGOT) 75 H Blood Urea Nitrogen 7 Calcium Level 8.2 L Carbon Dioxide Level 33 H Chloride Level 103 Creatinine 0.33 L Direct Bilirubin 0.00 Globulin 2.40 Glucose Level 90 Indirect Bilirubin 0.2 Lactate Dehydrogenase 1727 H Potassium Level 3.8 Sodium Level 144 Total Bilirubin 0.2 Total Protein 5.2 L Uric Acid 1.2 L Band Neutrophils % 1.0 Basophils # Basophils % Blood Morphology Comment Differential Comment MANUAL DIFF Eosinophils # Eosinophils % Hematocrit 28.1 L Hemoglobin 9.5 L Lymphocytes # 0.9 Lymphocytes % 8.0 L Mean Corpuscular Hemoglobin 28.9 L Mean Corpuscular Hemoglobin Concent 33.7 Mean Corpuscular Volume 85.8 Mean Platelet Volume 8.3 Monocytes # 0.1 L Monocytes % 1.0 Neutrophils # 10.1 H Neutrophils % 89.0 H Nucleated Red Blood Cells # Nucleated Red Blood Cells % Platelet Count 51 L Reactive Lymphocytes % 1.0 Red Blood Count 3.27 L Red Cell Distribution Width 16.7 H White Blood Count 11.4 #H Medications Medications Current Medications Sodium Chloride (NS) 1,000 ml @ 100 mls/hr Q10H IV Last administered on 02:54; Admin Dose 100 MLS/HR; Start 06/02/16 at 14:30 Acyclovir (Zovirax) 400 mg BID PO Last administered on 06/18/16 09:33; Admin Dose 400 MG; Start 06/02/16 at 14:30 Diphenhydramine HCl (Benadryl) 25 mg Q4H PRN IV ALLERGIC REACTION Last administered on 06/06/16 20:26; Admin Dose 25 MG; Start 06/02/16 at 18:30 Dexamethasone (Decadron) 10 mg Q4H PRN IV ALLERGIC REACTION; Start 06/02/16 at 18:30 Fluconazole 100 mg 100 mg DAILY PO Last administered on 06/08/16 09:58; Admin Dose 100 MG; Start 06/03/16 at 09:00; Status Future Hold Ondansetron HCl/ Sodium Chloride (Zofran Inj/NS) 54 ml @ 216 mls/hr Q6H PRN IV NAUSEA AND/OR VOMITING; Start 06/02/16 at 18:30 Ondansetron HCl (Zofran Inj) 4 mg Q6H PRN IV NAUSEA AND/OR VOMITING Last administered on 06/16/16 02:20; Admin Dose 4 MG; Start 06/03/16 at 17:00 Acetaminophen (Tylenol Tab) 650 mg Q6H PRN PO PAIN LEVEL 1-3 OR FEVER Last administered on 06/11/16 21:50; Admin Dose 650 MG; Start 06/03/16 at 17:00 Acetaminophen (Tylenol Supp) 650 mg Q6H PRN [place] PAIN LEVEL 1-3 OR FEVER Last administered on 06/09/16 03:37; Admin Dose 650 MG; Start 06/03/16 at 17:00 Docusate Sodium (Colace) 100 mg Q12H PRN PO CONSTIPATION; Start 06/03/16 at 17 :00 Magnesium Hydroxide (Milk Of Mag) 30 ml DAILY PRN PO CONSTIPATION; Start 06/03 at 17:00 Bisacodyl (Dulcolax) 5 mg DAILY PRN PO CONSTIPATION; Start 06/03/16 at 17:00 Bisacodyl (Dulcolax Supp) 10 mg DAILY PRN [place] CONSTIPATION; Start 06/03/16 at 17:00 Sodium Biphosphate/ Sodium Phosphate (Fleet Enema) 133 ml DAILY PRN [place] CONSTIPATION; Start 06/03/16 at 17:00 Enoxaparin Sodium (Lovenox) 30 mg DAILY SC Last administered on 06/12/16 08: 27; Admin Dose 30 MG; Start 06/04/16 at 09:00; Status Future Hold Allopurinol (Zyloprim) 300 mg DAILY PO Last administered on 06/18/16 09:33; Admin Dose 300 MG; Start 06/04/16 at 09:00 Eye Lubricant (Artificial Tears Oph) 2 drop QID BOTH EYES Last administered on 06/18/16 13:54; Admin Dose 2 DROP; Start 06/03/16 at 21:00 Eye Lubricant (Akwa Oint) 1 applic DAILY BOTH EYES Last administered on 09:34; Admin Dose 1 APPLIC; Start 06/04/16 at 09:00 Gabapentin (Neurontin) 200 mg TID PO Last administered on 06/18/16 13:54; Admin Dose 200 MG; Start 06/03/16 at 21:00 Levothyroxine Sodium (Synthroid) 100 mcg DAILY@06 PO Last administered on 06/18 06:00; Admin Dose 100 MCG; Start 06/04/16 at 06:00 Nystatin (Nystatin Susp) 5 ml QID PO Last administered on 06/18/16 13:54; Admin Dose 5 ML; Start 06/03/16 at 21:00 Mupirocin (Bactroban) 1 applic BID TOP Last administered on 06/18/16 09:34; Admin Dose 1 APPLIC; Start 06/04/16 at 21:00 Pantoprazole (Protonix Iv) 40 mg DAILY@06 IV Last administered on 06/18/16 06 :00; Admin Dose 40 MG; Start 06/09/16 at 06:00 Lorazepam 1 mg 1 mg Q6H PRN IV AGITATION/ANXIETY Last administered on 18:38; Admin Dose 1 MG; Start 06/08/16 at 18:00 Fluconazole (Diflucan 200 Mg/ NS (Pmx)) 100 ml @ 100 mls/hr Q24H IVPB Last administered on 06/18/16 05:35; Admin Dose 100 MLS/HR; Start 06/09/16 at 05: 30 Acetaminophen/ Hydrocodone Bitart ([place] (5/325)) 1 tab Q6H PRN PO PAIN Last administered on 06/11/16 17:38; Admin Dose 1 TAB; Start 06/11/16 at 17:30 Collagenase (Santyl) 1 applic DAILY TOP Last administered on 06/18/16 09:35; Admin Dose 1 APPLIC; Start 06/12/16 at 09:00 Trimethoprim/ Sulfamethoxazole 1 tab 1 tab BID PO Last administered on 09:33; Admin Dose 1 TAB; Start 06/13/16 at 21:00 Leucovorin Calcium 25 mg/ Dextrose 50 ml @ 50 mls/hr Q6H IV Last administered on 06/18/16 12:08; Admin Dose 50 MLS/HR; Start 06/18/16 at 04:30 Sodium Bicarbonate/ Sodium Chloride (Na Bicarb/NS) 1,100 ml @ 125 mls/hr Q8H48M IV Last administered on 06/18/16 13:53; Admin Dose 125 MLS/HR; Start 06/16/16 at 14:30 Nystatin (Nystatin Susp) 5 ml QID PO ; Start 06/18/16 at 17:00 KELLY ELAINE MD Jun 18, 2016 15:22
[2016-06-18] MEDS: FILGRASTIM 300 MCG in DEXTROSE 5% 50 ML IVPB SCH (18:08)
--- NOTE | 2016-06-18 19:32 | PN ---
Date/Time of Note Date/Time of Note DATE: 06/18/16 TIME: 19:31 Assessment/Plan VTE Prophylaxis VTE Prophylaxis Intervention: other Lines/Catheters IV Catheter Type (from Rust): PICC Line Central line still needed: Yes Urinary Cath still in place: No Assessment/Plan Chief Complaint/Hosp Course IMPRESSION: The patient has Burkitt's lymphoma status post tracheostomy, status post thyroid mass, status post pancytopenia, abnormal liver function test. The patient has anemia.NEUTROPENIA S/P CHEMO, S/P [employer] better SEPSIS hyperkalemia better PLAN PER DR MERLOS per id IV FLUID ck labs Problems: Subjective 24 Hr Interval Summary Respiratory: no complaints Cardiovascular: no complaints Gastrointestinal: no complaints Exam/Review of Systems Vital Signs Vitals Vital Signs Date Time Temp Pulse Resp B/P Pulse Ox O2 Delivery O2 Flow Rate FiO2 06/18/16 18:00 5.0 28 06/18/16 17:16 92 20 100 Aerosol 06/18/16 07:35 98.0 118/81 Intake and Output 06/17/16 06/17/16 06/18/16 14:59 22:59 06:59 Intake Total 100 ml 1160 ml 990 ml Output Total 1200 ml Balance 100 ml -40 ml 990 ml Exam Neck: supple Respiratory: clear to auscultation Cardiovascular: regular rate and rhythm Gastrointestinal: bowel sounds (+), soft Extremities: edema (neg) Results Result Diagram: 06/18/16 0730 06/18/16 0630 Results 24 hrs Laboratory Tests Test 06/18/16 06:30 06/18/16 07:30 Alanine Aminotransferase (ALT/SGPT) 75 H Albumin 2.8 L Albumin/Globulin Ratio 1.16 Alkaline Phosphatase 131 H Anion Gap 12 Aspartate Amino Transf (AST/SGOT) 75 H Blood Urea Nitrogen 7 Calcium Level 8.2 L Carbon Dioxide Level 33 H Chloride Level 103 Creatinine 0.33 L Direct Bilirubin 0.00 Globulin 2.40 Glucose Level 90 Indirect Bilirubin 0.2 Lactate Dehydrogenase 1727 H Potassium Level 3.8 Sodium Level 144 Total Bilirubin 0.2 Total Protein 5.2 L Uric Acid 1.2 L Band Neutrophils % 1.0 Basophils # Basophils % Blood Morphology Comment Differential Comment MANUAL DIFF Eosinophils # Eosinophils % Hematocrit 28.1 L Hemoglobin 9.5 L Lymphocytes # 0.9 Lymphocytes % 8.0 L Mean Corpuscular Hemoglobin 28.9 L Mean Corpuscular Hemoglobin Concent 33.7 Mean Corpuscular Volume 85.8 Mean Platelet Volume 8.3 Monocytes # 0.1 L Monocytes % 1.0 Neutrophils # 10.1 H Neutrophils % 89.0 H Nucleated Red Blood Cells # Nucleated Red Blood Cells % Platelet Count 51 L Reactive Lymphocytes % 1.0 Red Blood Count 3.27 L Red Cell Distribution Width 16.7 H White Blood Count 11.4 #H Medications Medications Current Medications Sodium Chloride (NS) 1,000 ml @ 100 mls/hr Q10H IV Last administered on 02:54; Admin Dose 100 MLS/HR; Start 06/02/16 at 14:30 Acyclovir (Zovirax) 400 mg BID PO Last administered on 06/18/16 09:33; Admin Dose 400 MG; Start 06/02/16 at 14:30 Diphenhydramine HCl (Benadryl) 25 mg Q4H PRN IV ALLERGIC REACTION Last administered on 06/06/16 20:26; Admin Dose 25 MG; Start 06/02/16 at 18:30 Dexamethasone (Decadron) 10 mg Q4H PRN IV ALLERGIC REACTION; Start 06/02/16 at 18:30 Fluconazole 100 mg 100 mg DAILY PO Last administered on 06/08/16 09:58; Admin Dose 100 MG; Start 06/03/16 at 09:00; Status Future Hold Ondansetron HCl/ Sodium Chloride (Zofran Inj/NS) 54 ml @ 216 mls/hr Q6H PRN IV NAUSEA AND/OR VOMITING; Start 06/02/16 at 18:30 Ondansetron HCl (Zofran Inj) 4 mg Q6H PRN IV NAUSEA AND/OR VOMITING Last administered on 06/16/16 02:20; Admin Dose 4 MG; Start 06/03/16 at 17:00 Acetaminophen (Tylenol Tab) 650 mg Q6H PRN PO PAIN LEVEL 1-3 OR FEVER Last administered on 06/11/16 21:50; Admin Dose 650 MG; Start 06/03/16 at 17:00 Acetaminophen (Tylenol Supp) 650 mg Q6H PRN [place] PAIN LEVEL 1-3 OR FEVER Last administered on 06/09/16 03:37; Admin Dose 650 MG; Start 06/03/16 at 17:00 Docusate Sodium (Colace) 100 mg Q12H PRN PO CONSTIPATION; Start 06/03/16 at 17 :00 Magnesium Hydroxide (Milk Of Mag) 30 ml DAILY PRN PO CONSTIPATION; Start 06/03 at 17:00 Bisacodyl (Dulcolax) 5 mg DAILY PRN PO CONSTIPATION; Start 06/03/16 at 17:00 Bisacodyl (Dulcolax Supp) 10 mg DAILY PRN [place] CONSTIPATION; Start 06/03/16 at 17:00 Sodium Biphosphate/ Sodium Phosphate (Fleet Enema) 133 ml DAILY PRN [place] CONSTIPATION; Start 06/03/16 at 17:00 Enoxaparin Sodium (Lovenox) 30 mg DAILY SC Last administered on 06/12/16 08: 27; Admin Dose 30 MG; Start 06/04/16 at 09:00; Status Future Hold Allopurinol (Zyloprim) 300 mg DAILY PO Last administered on 06/18/16 09:33; Admin Dose 300 MG; Start 06/04/16 at 09:00 Eye Lubricant (Artificial Tears Oph) 2 drop QID BOTH EYES Last administered on 06/18/16 18:07; Admin Dose 2 DROP; Start 06/03/16 at 21:00 Eye Lubricant (Akwa Oint) 1 applic DAILY BOTH EYES Last administered on 09:34; Admin Dose 1 APPLIC; Start 06/04/16 at 09:00 Gabapentin (Neurontin) 200 mg TID PO Last administered on 06/18/16 13:54; Admin Dose 200 MG; Start 06/03/16 at 21:00 Levothyroxine Sodium (Synthroid) 100 mcg DAILY@06 PO Last administered on 06/18 06:00; Admin Dose 100 MCG; Start 06/04/16 at 06:00 Nystatin (Nystatin Susp) 5 ml QID PO Last administered on 06/18/16 18:06; Admin Dose 5 ML; Start 06/03/16 at 21:00 Mupirocin (Bactroban) 1 applic BID TOP Last administered on 06/18/16 09:34; Admin Dose 1 APPLIC; Start 06/04/16 at 21:00 Pantoprazole (Protonix Iv) 40 mg DAILY@06 IV Last administered on 06/18/16 06 :00; Admin Dose 40 MG; Start 06/09/16 at 06:00 Lorazepam 1 mg 1 mg Q6H PRN IV AGITATION/ANXIETY Last administered on at 18:38; Admin Dose 1 MG; Start 06/08/16 at 18:00 Fluconazole (Diflucan 200 Mg/ NS (Pmx)) 100 ml @ 100 mls/hr Q24H IVPB Last administered on 06/18/16at 05:35; Admin Dose 100 MLS/HR; Start 06/09/16 at 05: 30 Acetaminophen/ Hydrocodone Bitart ([place] (5/325)) 1 tab Q6H PRN PO PAIN Last administered on 06/11/16at 17:38; Admin Dose 1 TAB; Start 06/11/16 at 17:30 Collagenase (Santyl) 1 applic DAILY TOP Last administered on 06/18/16at 09:35; Admin Dose 1 APPLIC; Start 06/12/16 at 09:00 Trimethoprim/ Sulfamethoxazole 1 tab 1 tab BID PO Last administered on at 09:33; Admin Dose 1 TAB; Start 06/13/16 at 21:00 Leucovorin Calcium 25 mg/ Dextrose 50 ml @ 50 mls/hr Q6H IV Last administered on 06/18/16at 16:50; Admin Dose 50 MLS/HR; Start 06/18/16 at 04:30 Sodium Bicarbonate/ Sodium Chloride (Na Bicarb/NS) 1,100 ml @ 125 mls/hr Q8H48M IV Last administered on 06/18/16at 13:53; Admin Dose 125 MLS/HR; Start 06/16/16 at 14:30 Nystatin 5 ml 5 ml QID PO ; Start 06/18/16 at 17:00 Filgrastim/ Dextrose (Neupogen/D5W) 51 ml @ 50 mls/hr DAILY@17 IVPB Last administered on 06/18/16at 18:08; Admin Dose 50 MLS/HR; Start 06/18/16 at 17:00 ; Stop 06/22/16 at 17:00 GUERLINE SULLIVAN MD Jun 18, 2016 19:32
[2016-06-18 20:41] VITALS: BP 140/68; PULSE 84; RESP 18
[2016-06-19] MEDS: ALBUTEROL/IPRATROPIUM (NEB) 3 ML AMP HHN SCH ×6 (01:51→21:34)
[2016-06-19] MEDS: DEXTROSE 5% IV SCH ×4 (04:44→22:15)
[2016-06-19] MEDS: LEUCOVORIN CALCIUM IV SCH ×4 (04:44→22:15)
[2016-06-19] MEDS: SODIUM BICARBONATE (IV ADD) 100 MEQ in SOD CHLORIDE 0.9% 1,000 ML IV SCH ×2 (04:44→12:54)
[2016-06-19] MEDS: FLUCONAZOLE 200 MG/NS (PMX) 100 ML IVPB SCH (05:54)
[2016-06-19] MEDS: SOD CHLORIDE 0.9% 1,000 ML IV SCH (05:55)
[2016-06-19] MEDS: PANTOPRAZOLE 40 MG INJ IV SCH (05:55)
[2016-06-19] MEDS: LEVOTHYROXINE 100 MCG TAB PO SCH (05:55)
[2016-06-19 06:25] LABS: ALBUMIN 2.8 g/dl (3.3-4.9)
[2016-06-19 06:27] LABS: BILIRUBIN,INDIRECT 0.3 mg/dl (0-1.1); BILIRUBIN,TOTAL 0.3 mg/dl (0.2-1.3); CREATININE 0.31 mg/dl (0.44-1.00)
[2016-06-19 06:28] LABS: ALBUMIN/GLOBULIN RATIO 1.33; CALCIUM 8.6 mg/dl (8.4-10.2); POTASSIUM 4.1 mmol/L (3.5-5.1); TOTAL PROTEIN 4.9 g/dl (6.1-8.1); URIC ACID 0.8 mg/dl (3.1-7.9)
[2016-06-19 06:35] LABS: HEMATOCRIT 28.5 % (37.0-47.0); HEMOGLOBIN 9.7 g/dl (12.0-16.0); MEAN CORPUSCULAR HEMOGLOBIN 29.2 pg (29.0-33.0); MEAN CORPUSCULAR VOLUME 85.8 fl (82.0-101.0); MEAN PLATELET VOLUME 8.1 fl (7.4-10.4); PLATELET COUNT 50 10^3/UL (140-440); RED BLOOD COUNT 3.32 10^6/ul (4.20-5.40); RED CELL DISTRIBUTION WIDTH 16.2 % (11.5-14.5)
[2016-06-19 06:55] LABS: CONDITION 1; LH ANALYZER COMMENTS 1; SUSPECT 1
[2016-06-19 07:50] VITALS: BP 118/69; PULSE 96; RESP 18
[2016-06-19] MEDS: NYSTATIN SUSP 5 ML CUP PO SCH ×5 (09:00→22:02)
[2016-06-19] MEDS: ARTIFICIAL TEARS 15 ML OPH BOTH EYES SCH ×4 (09:19→22:01)
[2016-06-19] MEDS: GABAPENTIN 100 MG CAP PO SCH ×3 (09:19→22:02)
[2016-06-19] MEDS: ACYCLOVIR 400 MG TAB PO SCH ×2 (09:19→22:02)
[2016-06-19] MEDS: TRIMETHOPRIM/SULFAMETHOX (DS) TAB PO SCH ×2 (09:19→22:02)
[2016-06-19] MEDS: ALLOPURINOL 300 MG TAB PO SCH (09:19)
[2016-06-19 09:20] LABS: PLATELET ESTIMATE PLT APPEAR DECREASED
[2016-06-19] MEDS: OCULAR LUBRICANT 3.5 GM OPH OINT BOTH EYES SCH (09:20)
[2016-06-19] MEDS: MUPIROCIN 2% 22 GM OINT TOP SCH ×2 (09:20→22:02)
[2016-06-19] MEDS: COLLAGENASE 30 GM TUBE TOP SCH (09:21)
[2016-06-19 10:39] LABS: LYMPHOCYTES # 0.2 10^3/ul (0.8-2.9); NEUTROPHIL # 8.3 10^3/ul (1.6-7.5)
--- NOTE | 2016-06-19 11:51 | CONS ---
Date/Time of Note Date/Time of Note DATE: 06/19/16 TIME: 11:50 Assessment/Plan Assessment/Plan Chief Complaint/Hosp Course Assessment/Plan # Burkitt's lymphoma -continue with cycle 1 R CODOX -M -Rituximab (Rituxan) as follows: * Cycle 1: 375 mg/m2 (660mg) IV on Day 1 -Cyclophosphamide (Cytoxan) 800 mg/m2 ( 1415mg) IV once per day on days 1 & 2 -Vincristine (Oncovin) 1.0 mg (dose reduced for neuropathy) days 1 & 15 . next dose due on 06/17 -Doxorubicin (Adriamycin) 50 mg/m2 (88mg) IV once on day 1 -Methotrexate (MTX) 100mg/m2 (175mg) IV over 1 hour then 900mg/m2 (1590mg) over 23 hours on day 15. will start IVF with 2 amps Na HCo3 prior to MTX infusion since Urine Ph > 7.0. Leucovorin 25mg IV q 4 hours will start 36 hours after MTX starts until MTX level is < 0.05. next dose due today 06/16. Methotrexate at 48 hours is 0.69, above goal of 0.50. Will increase leucovorin to 50 mg Q6 hours and increase bicarb from 2 amps to 3 amps. Pending 72 hour MTX level, goal < 0.05. Patient complaining of feeling of tightness around trach cannula. RT already evaluated patient. Discussed with Dr. Curran, given oxygenation adequate, will continue to monitor. Consider ENT consult if worsens. # Neutropenic fever -pt is now afebrile and will dc precautions -held dose 06/17/16 for neupogen, resarted 06/18/16 for 5 days (D3-7) as WBC now dropping and will be expected to continue to decline. -continue antibiotics. # Supportive Care and prophylactic meds -Started Acyclovir 400mg BID -fluconazole 100mg q day -Neupogen 300mcg q day -Zofran ordered prn nausea #Expected Pancytopenia -keep Hg> 8 and platelets > 10 # Elevated AST and ALT, likely related to methotrexate. Monitor. 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 all steroids should be discontinued for now unless they are part of the chemotherapy regimen -continue to work with physical therapy. 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 -uric acid level ok -will continue to monitor LDH d/w nursing and checking u/a for ph every 6 hours to keep greater than 7 Problems: Consultation Date/Type/Reason Admit Date/Time Jun 02, 2016 at 15:10 Initial Consult Date 06/02/16 Type of Consultation: Hematology/Oncology Referring Provider: TELLY SOLANO MD 24 HR Interval Summary Free Text/Dictation Patient complaining of feeling of tightness around trach cannula. Exam/Review of Systems Vital Signs Vitals Vital Signs Date Time Temp Pulse Resp B/P Pulse Ox O2 Delivery O2 Flow Rate FiO2 06/19/16 08:43 88 18 95 Aerosol 28 06/19/16 04:16 5.0 06/18/16 20:41 97.9 140/68 Intake and Output 06/18/16 06/18/16 06/19/16 15:00 23:00 07:00 Intake Total 700 ml 1950 ml Output Total 1100 ml Balance 700 ml 850 ml Exam Constitutional: alert, oriented Head: normocephalic Eyes: nl conjunctiva ENMT: nl external ears & nose Neck: other (trach in place) Respiratory: clear to auscultation, normal air movement Cardiovascular: nl pulses, regular rate and rhythm Gastrointestinal: soft Musculoskeletal: nl extremities to inspection, nl gait and stance Extremities: normal pulses Results Result Diagram: 06/19/1645 06/19/16 0545 Results 24 hrs Laboratory Tests Test 06/19/16 05:45 Alanine Aminotransferase (ALT/SGPT) 111 H Albumin 2.8 L Albumin/Globulin Ratio 1.33 Alkaline Phosphatase 123 H Anion Gap 12 Aspartate Amino Transf (AST/SGOT) 110 H Band Neutrophils % 6.0 H Basophils # Basophils % Blood Morphology Comment Blood Urea Nitrogen 4 L Calcium Level 8.6 Carbon Dioxide Level 29 Chloride Level 101 Creatinine 0.31 L Differential Comment MANUAL DIFF Direct Bilirubin 0.00 Eosinophils # Eosinophils % Globulin 2.10 Glucose Level 106 Hematocrit 28.5 L Hemoglobin 9.7 L Indirect Bilirubin 0.3 Lactate Dehydrogenase 1414 H Lymphocytes # 0.2 L Lymphocytes % 2.0 L Mean Corpuscular Hemoglobin 29.2 Mean Corpuscular Hemoglobin Concent 34.0 Mean Corpuscular Volume 85.8 Mean Platelet Volume 8.1 Monocytes # Monocytes % Neutrophils # 8.3 H Neutrophils % 92.0 H Nucleated Red Blood Cells # Nucleated Red Blood Cells % Platelet Count 50 L Platelet Estimate PLT APPEAR DECREASED Potassium Level 4.1 Red Blood Count 3.32 L Red Cell Distribution Width 16.2 H Sodium Level 138 Total Bilirubin 0.3 Total Protein 4.9 L Uric Acid 0.8 L White Blood Count 9.0 # Medications Medications Current Medications Sodium Chloride (NS) 1,000 ml @ 100 mls/hr Q10H IV Last administered on 02:54; Admin Dose 100 MLS/HR; Start 06/02/16 at 14:30 Acyclovir (Zovirax) 400 mg BID PO Last administered on 06/19/16 09:19; Admin Dose 400 MG; Start 06/02/16 at 14:30 Diphenhydramine HCl (Benadryl) 25 mg Q4H PRN IV ALLERGIC REACTION Last administered on 06/06/16 20:26; Admin Dose 25 MG; Start 06/02/16 at 18:30 Dexamethasone (Decadron) 10 mg Q4H PRN IV ALLERGIC REACTION; Start 06/02/16 at 18:30 Fluconazole 100 mg 100 mg DAILY PO Last administered on 06/08/16at 09:58; Admin Dose 100 MG; Start 06/03/16 at 09:00; Status Future Hold Ondansetron HCl/ Sodium Chloride (Zofran Inj/NS) 54 ml @ 216 mls/hr Q6H PRN IV NAUSEA AND/OR VOMITING; Start 06/02/16 at 18:30 Ondansetron HCl (Zofran Inj) 4 mg Q6H PRN IV NAUSEA AND/OR VOMITING Last administered on 06/16/16at 02:20; Admin Dose 4 MG; Start 06/03/16 at 17:00 Acetaminophen (Tylenol Tab) 650 mg Q6H PRN PO PAIN LEVEL 1-3 OR FEVER Last administered on 06/11/16at 21:50; Admin Dose 650 MG; Start 06/03/16 at 17:00 Acetaminophen (Tylenol Supp) 650 mg Q6H PRN [place] PAIN LEVEL 1-3 OR FEVER Last administered on 06/09/16at 03:37; Admin Dose 650 MG; Start 06/03/16 at 17:00 Docusate Sodium (Colace) 100 mg Q12H PRN PO CONSTIPATION; Start 06/03/16 at 17 :00 Magnesium Hydroxide (Milk Of Mag) 30 ml DAILY PRN PO CONSTIPATION; Start 06/03 at 17:00 Bisacodyl (Dulcolax) 5 mg DAILY PRN PO CONSTIPATION; Start 06/03/16 at 17:00 Bisacodyl (Dulcolax Supp) 10 mg DAILY PRN [place] CONSTIPATION; Start 06/03/16 at 17:00 Sodium Biphosphate/ Sodium Phosphate (Fleet Enema) 133 ml DAILY PRN [place] CONSTIPATION; Start 06/03/16 at 17:00 Enoxaparin Sodium (Lovenox) 30 mg DAILY SC Last administered on 06/12/16 08: 27; Admin Dose 30 MG; Start 06/04/16 at 09:00; Status Future Hold Allopurinol (Zyloprim) 300 mg DAILY PO Last administered on 06/19/16 09:19; Admin Dose 300 MG; Start 06/04/16 at 09:00 Eye Lubricant (Artificial Tears Oph) 2 drop QID BOTH EYES Last administered on 06/19/16 09:19; Admin Dose 2 DROP; Start 06/03/16 at 21:00 Eye Lubricant (Akwa Oint) 1 applic DAILY BOTH EYES Last administered on 09:20; Admin Dose 1 APPLIC; Start 06/04/16 at 09:00 Gabapentin (Neurontin) 200 mg TID PO Last administered on 06/19/16 09:19; Admin Dose 200 MG; Start 06/03/16 at 21:00 Levothyroxine Sodium (Synthroid) 100 mcg DAILY@06 PO Last administered on 06/19 05:55; Admin Dose 100 MCG; Start 06/04/16 at 06:00 Nystatin (Nystatin Susp) 5 ml QID PO Last administered on 06/19/16 09:19; Admin Dose 5 ML; Start 06/03/16 at 21:00 Mupirocin (Bactroban) 1 applic BID TOP Last administered on 06/19/16 09:20; Admin Dose 1 APPLIC; Start 06/04/16 at 21:00 Pantoprazole (Protonix Iv) 40 mg DAILY@06 IV Last administered on 06/19/16 05 :55; Admin Dose 40 MG; Start 06/09/16 at 06:00 Lorazepam 1 mg 1 mg Q6H PRN IV AGITATION/ANXIETY Last administered on 18:38; Admin Dose 1 MG; Start 06/08/16 at 18:00 Fluconazole (Diflucan 200 Mg/ NS (Pmx)) 100 ml @ 100 mls/hr Q24H IVPB Last administered on 06/19/16 05:54; Admin Dose 100 MLS/HR; Start 06/09/16 at 05: 30 Acetaminophen/ Hydrocodone Bitart ([place] (5/325)) 1 tab Q6H PRN PO PAIN Last administered on 06/11/16 17:38; Admin Dose 1 TAB; Start 06/11/16 at 17:30 Collagenase (Santyl) 1 applic DAILY TOP Last administered on 06/19/16 09:21; Admin Dose 1 APPLIC; Start 06/12/16 at 09:00 Trimethoprim/ Sulfamethoxazole 1 tab 1 tab BID PO Last administered on 09:19; Admin Dose 1 TAB; Start 06/13/16 at 21:00 Leucovorin Calcium 25 mg/ Dextrose 50 ml @ 50 mls/hr Q6H IV Last administered on 06/19/16 11:15; Admin Dose 50 MLS/HR; Start 06/18/16 at 04:30 Sodium Bicarbonate/ Sodium Chloride (Na Bicarb/NS) 1,100 ml @ 125 mls/hr Q8H48M IV Last administered on 06/19/16 04:44; Admin Dose 125 MLS/HR; Start 06/16/16 at 14:30 Nystatin 5 ml 5 ml QID PO ; Start 06/18/16 at 17:00 Filgrastim/ Dextrose (Neupogen/D5W) 51 ml @ 50 mls/hr DAILY@17 IVPB Last administered on 06/18/16 18:08; Admin Dose 50 MLS/HR; Start 06/18/16 at 17:00 ; Stop 06/22/16 at 17:00 TOKELLY MD Jun 19, 2016 11:51
[2016-06-19 15:30] LABS: ADD UMIC YES; URINE BILIRUBIN (Dip) NEGATIVE (NEGATIVE); URINE BLOOD (Dip) TRACE (NEGATIVE); URINE COLOR LT. YELLOW (YELLOW); URINE GLUCOSE (Dip) NEGATIVE (NEGATIVE); URINE KETONES (Dip) NEGATIVE (NEGATIVE); URINE LEUKOCYTE ESTERASE (Dip) NEGATIVE (NEGATIVE); URINE NITRITE (Dip) NEGATIVE (NEGATIVE); URINE TOTAL PROTEIN (Dip) NEGATIVE (NEGATIVE); URINE UROBILINOGEN (Dip) 0.2 E.U./dL (0.1-1.0)
[2016-06-19 15:52] LABS: BACTERIA,URINE OCCASIONAL; SQUAMOUS EPITHELIAL CELL,UR FEW; URINE RBCS 0-2 /HPF (0)
--- NOTE | 2016-06-19 16:08 | PN ---
Date/Time of Note Date/Time of Note DATE: 06/19/16 TIME: 16:06 Assessment/Plan VTE Prophylaxis VTE Prophylaxis Intervention: other Lines/Catheters IV Catheter Type (from Nrsg): PICC Line Central line still needed: Yes Urinary Cath still in place: No Assessment/Plan Chief Complaint/Hosp Course IMPRESSION: The patient has Burkitt's lymphoma status post tracheostomy, status post thyroid mass, status post pancytopenia, abnormal liver function test. The patient has PANCYTOPENIA, ON CHEMO SEPSIS hyperkalemia better ABN LFT PLAN PER DR MERLOS per id IV FLUID ck labs CHEMO Problems: Subjective 24 Hr Interval Summary Respiratory: no complaints Cardiovascular: no complaints Skin: other (neck pain+) Exam/Review of Systems Vital Signs Vitals Vital Signs Date Time Temp Pulse Resp B/P Pulse Ox O2 Delivery O2 Flow Rate FiO2 06/19/16 12:02 94 18 94 Aerosol 28 06/19/16 07:50 98.3 118/69 5.0 Intake and Output 06/18/16 06/18/16 06/19/16 15:00 23:00 07:00 Intake Total 700 ml 1950 ml Output Total 1100 ml Balance 700 ml 850 ml Exam Respiratory: clear to auscultation Cardiovascular: regular rate and rhythm Gastrointestinal: soft Genitourinary - Female: nl adnexae Musculoskeletal: nl extremities to inspection Extremities: normal pulses Results Result Diagram: 06/19/16 0545 06/19/16 0545 Results 24 hrs Laboratory Tests Test 06/19/16 05:45 06/19/16 14:55 Alanine Aminotransferase (ALT/SGPT) 111 H Albumin 2.8 L Albumin/Globulin Ratio 1.33 Alkaline Phosphatase 123 H Anion Gap 12 Aspartate Amino Transf (AST/SGOT) 110 H Band Neutrophils % 6.0 H Basophils # Basophils % Blood Morphology Comment Blood Urea Nitrogen 4 L Calcium Level 8.6 Carbon Dioxide Level 29 Chloride Level 101 Creatinine 0.31 L Differential Comment MANUAL DIFF Direct Bilirubin 0.00 Eosinophils # Eosinophils % Globulin 2.10 Glucose Level 106 Hematocrit 28.5 L Hemoglobin 9.7 L Indirect Bilirubin 0.3 Lactate Dehydrogenase 1414 H Lymphocytes # 0.2 L Lymphocytes % 2.0 L Mean Corpuscular Hemoglobin 29.2 Mean Corpuscular Hemoglobin Concent 34.0 Mean Corpuscular Volume 85.8 Mean Platelet Volume 8.1 Monocytes # Monocytes % Neutrophils # 8.3 H Neutrophils % 92.0 H Nucleated Red Blood Cells # Nucleated Red Blood Cells % Platelet Count 50 L Platelet Estimate PLT APPEAR DECREASED Potassium Level 4.1 Red Blood Count 3.32 L Red Cell Distribution Width 16.2 H Sodium Level 138 Total Bilirubin 0.3 Total Protein 4.9 L Uric Acid 0.8 L White Blood Count 9.0 # Urine Bacteria OCCASIONAL Urine Bilirubin NEGATIVE Urine Clarity CLEAR Urine Color LT. YELLOW Urine Glucose NEGATIVE Urine Hemoglobin TRACE Urine Ketones NEGATIVE Urine Leukocyte Esterase NEGATIVE Urine Microscopic RBC 0-2 Urine Microscopic WBC 0-2 Urine Nitrite NEGATIVE Urine Specific [place] 1.015 Urine Squamous Epithelial Cells FEW Urine Total Protein NEGATIVE Urine Urobilinogen 0.2 E.U./dL Urine pH 8.0 Medications Medications Current Medications Acyclovir (Zovirax) 400 mg BID PO Last administered on 06/19/16at 09:19; Admin Dose 400 MG; Start 06/02/16 at 14:30 Diphenhydramine HCl (Benadryl) 25 mg Q4H PRN IV ALLERGIC REACTION Last administered on 06/06/16at 20:26; Admin Dose 25 MG; Start 06/02/16 at 18:30 Dexamethasone (Decadron) 10 mg Q4H PRN IV ALLERGIC REACTION; Start 06/02/16 at 18:30 Fluconazole 100 mg 100 mg DAILY PO Last administered on 06/08/16at 09:58; Admin Dose 100 MG; Start 06/03/16 at 09:00; Status Future Hold Ondansetron HCl/ Sodium Chloride (Zofran Inj/NS) 54 ml @ 216 mls/hr Q6H PRN IV NAUSEA AND/OR VOMITING; Start 06/02/16 at 18:30 Ondansetron HCl (Zofran Inj) 4 mg Q6H PRN IV NAUSEA AND/OR VOMITING Last administered on 06/16/16at 02:20; Admin Dose 4 MG; Start 06/03/16 at 17:00 Acetaminophen (Tylenol Tab) 650 mg Q6H PRN PO PAIN LEVEL 1-3 OR FEVER Last administered on 06/11/16at 21:50; Admin Dose 650 MG; Start 06/03/16 at 17:00 Acetaminophen (Tylenol Supp) 650 mg Q6H PRN ID PAIN LEVEL 1-3 OR FEVER Last administered on 06/09/16at 03:37; Admin Dose 650 MG; Start 06/03/16 at 17:00 Docusate Sodium (Colace) 100 mg Q12H PRN PO CONSTIPATION; Start 06/03/16 at 17 :00 Magnesium Hydroxide (Milk Of Mag) 30 ml DAILY PRN PO CONSTIPATION; Start 06/03 at 17:00 Bisacodyl (Dulcolax) 5 mg DAILY PRN PO CONSTIPATION; Start 06/03/16 at 17:00 Bisacodyl (Dulcolax Supp) 10 mg DAILY PRN ID CONSTIPATION; Start 06/03/16 at 17:00 Sodium Biphosphate/ Sodium Phosphate (Fleet Enema) 133 ml DAILY PRN ID CONSTIPATION; Start 06/03/16 at 17:00 Enoxaparin Sodium (Lovenox) 30 mg DAILY SC Last administered on 06/12/16at 08: 27; Admin Dose 30 MG; Start 06/04/16 at 09:00; Status Future Hold Allopurinol (Zyloprim) 300 mg DAILY PO Last administered on 06/19/16 09:19; Admin Dose 300 MG; Start 06/04/16 at 09:00 Eye Lubricant (Artificial Tears Oph) 2 drop QID BOTH EYES Last administered on 06/19/16 14:06; Admin Dose 2 DROP; Start 06/03/16 at 21:00 Eye Lubricant ([place]wa Oint) 1 applic DAILY BOTH EYES Last administered on 09:20; Admin Dose 1 APPLIC; Start 06/04/16 at 09:00 Gabapentin (Neurontin) 200 mg TID PO Last administered on 06/19/16 14:06; Admin Dose 200 MG; Start 06/03/16 at 21:00 Levothyroxine Sodium (Synthroid) 100 mcg DAILY@06 PO Last administered on 06/19 05:55; Admin Dose 100 MCG; Start 06/04/16 at 06:00 Mupirocin (Bactroban) 1 applic BID TOP Last administered on 06/19/16 09:20; Admin Dose 1 APPLIC; Start 06/04/16 at 21:00 Pantoprazole (Protonix Iv) 40 mg DAILY@06 IV Last administered on 06/19/16 05 :55; Admin Dose 40 MG; Start 06/09/16 at 06:00 Lorazepam 1 mg 1 mg Q6H PRN IV AGITATION/ANXIETY Last administered on 18:38; Admin Dose 1 MG; Start 06/08/16 at 18:00 Fluconazole (Diflucan 200 Mg/ NS (Pmx)) 100 ml @ 100 mls/hr Q24H IVPB Last administered on 06/19/16 05:54; Admin Dose 100 MLS/HR; Start 06/09/16 at 05: 30 Acetaminophen/ Hydrocodone Bitart ([place] (5/325)) 1 tab Q6H PRN PO PAIN Last administered on 06/11/16 17:38; Admin Dose 1 TAB; Start 06/11/16 at 17:30 Collagenase (Santyl) 1 applic DAILY TOP Last administered on 06/19/16 09:21; Admin Dose 1 APPLIC; Start 06/12/16 at 09:00 Trimethoprim/ Sulfamethoxazole 1 tab 1 tab BID PO Last administered on 09:19; Admin Dose 1 TAB; Start 06/13/16 at 21:00 Leucovorin Calcium/Dextrose (Leucovorin Calcium Inj/D5W) 50 ml @ 50 mls/hr Q6H IV Last administered on 06/19/16at 11:15; Admin Dose 50 MLS/HR; Start at 04:30; Stop 06/19/16 at 16:29 Nystatin 5 ml 5 ml QID PO Last administered on 06/19/16 14:06; Admin Dose 5 ML; Start 06/18/16 at 17:00 Filgrastim 300 mcg/Dextrose 51 ml @ 50 mls/hr DAILY@17 IVPB Last administered on 06/18/16at 18:08; Admin Dose 50 MLS/HR; Start 06/18/16 at 17:00; Stop at 17:00 Sodium Bicarbonate 150 meq/Dextrose/ Sodium Chloride 1,000 ml @ 125 mls/hr Q8H IV ; Start 06/19/16 at 14:00 Leucovorin Calcium/Dextrose (Leucovorin Calcium Inj/D5W) 50 ml @ 50 mls/hr Q6H IV ; Start 06/19/16 at 16:30 GUERLINE SULLIVAN MD Jun 19, 2016 16:08
[2016-06-19] MEDS: SODIUM BICARBONATE (IV ADD) 150 MEQ in DEXTROSE 5%-0.45% NACL 850 ML IV SCH ×2 (16:11→22:03)
[2016-06-19] MEDS: LORAZEPAM 2 MG INJ IV PRN (16:12)
[2016-06-19] MEDS: FILGRASTIM 300 MCG in DEXTROSE 5% 50 ML IVPB SCH (17:54)
--- NOTE | 2016-06-19 18:28 | CONS ---
Date/Time of Note Date/Time of Note DATE: 06/19/16 TIME: 18:26 Consult Date/Type/Reason Admit Date/Time Jun 02, 2016 at 15:10 Initial Consult Date 06/02/16 Type of Consultation: ID Ordering Provider: TELLY SOLANO MD Subjective sleeping, s/p Ativan, was depressed today, no fevers, nad Objective Vital Signs Date Time Temp Pulse Resp B/P Pulse Ox O2 Delivery O2 Flow Rate FiO2 06/19/16 16:56 28 06/19/16 16:25 94 18 95 Aerosol 06/19/16 07:50 98.3 118/69 5.0 Intake and Output 06/18/16 06/18/16 06/19/16 14:59 22:59 06:59 Intake Total 700 ml 1950 ml Output Total 1100 ml Balance 700 ml 850 ml Results/Medications Result Diagram: 06/19/16 0545 06/19/16 0545 Results 24 hrs Laboratory Tests Test 06/19/16 05:45 06/19/16 14:55 Alanine Aminotransferase (ALT/SGPT) 111 H Albumin 2.8 L Albumin/Globulin Ratio 1.33 Alkaline Phosphatase 123 H Anion Gap 12 Aspartate Amino Transf (AST/SGOT) 110 H Band Neutrophils % 6.0 H Basophils # Basophils % Blood Morphology Comment Blood Urea Nitrogen 4 L Calcium Level 8.6 Carbon Dioxide Level 29 Chloride Level 101 Creatinine 0.31 L Differential Comment MANUAL DIFF Direct Bilirubin 0.00 Eosinophils # Eosinophils % Globulin 2.10 Glucose Level 106 Hematocrit 28.5 L Hemoglobin 9.7 L Indirect Bilirubin 0.3 Lactate Dehydrogenase 1414 H Lymphocytes # 0.2 L Lymphocytes % 2.0 L Mean Corpuscular Hemoglobin 29.2 Mean Corpuscular Hemoglobin Concent 34.0 Mean Corpuscular Volume 85.8 Mean Platelet Volume 8.1 Monocytes # Monocytes % Neutrophils # 8.3 H Neutrophils % 92.0 H Nucleated Red Blood Cells # Nucleated Red Blood Cells % Platelet Count 50 L Platelet Estimate PLT APPEAR DECREASED Potassium Level 4.1 Red Blood Count 3.32 L Red Cell Distribution Width 16.2 H Sodium Level 138 Total Bilirubin 0.3 Total Protein 4.9 L Uric Acid 0.8 L White Blood Count 9.0 # Urine Bacteria OCCASIONAL Urine Bilirubin NEGATIVE Urine Clarity CLEAR Urine Color LT. YELLOW Urine Glucose NEGATIVE Urine Hemoglobin TRACE Urine Ketones NEGATIVE Urine Leukocyte Esterase NEGATIVE Urine Microscopic RBC 0-2 Urine Microscopic WBC 0-2 Urine Nitrite NEGATIVE Urine Specific [place] 1.015 Urine Squamous Epithelial Cells FEW Urine Total Protein NEGATIVE Urine Urobilinogen 0.2 E.U./dL Urine pH 8.0 Medications Current Medications Acyclovir (Zovirax) 400 mg BID PO Last administered on 06/19/16at 09:19; Admin Dose 400 MG; Start 06/02/16 at 14:30 Diphenhydramine HCl (Benadryl) 25 mg Q4H PRN IV ALLERGIC REACTION Last administered on 06/06/16at 20:26; Admin Dose 25 MG; Start 06/02/16 at 18:30 Dexamethasone (Decadron) 10 mg Q4H PRN IV ALLERGIC REACTION; Start 06/02/16 at 18:30 Fluconazole 100 mg 100 mg DAILY PO Last administered on 06/08/16at 09:58; Admin Dose 100 MG; Start 06/03/16 at 09:00; Status Future Hold Ondansetron HCl/ Sodium Chloride (Zofran Inj/NS) 54 ml @ 216 mls/hr Q6H PRN IV NAUSEA AND/OR VOMITING; Start 06/02/16 at 18:30 Ondansetron HCl (Zofran Inj) 4 mg Q6H PRN IV NAUSEA AND/OR VOMITING Last administered on 06/16/16at 02:20; Admin Dose 4 MG; Start 06/03/16 at 17:00 Acetaminophen (Tylenol Tab) 650 mg Q6H PRN PO PAIN LEVEL 1-3 OR FEVER Last administered on 06/11/16at 21:50; Admin Dose 650 MG; Start 06/03/16 at 17:00 Acetaminophen (Tylenol Supp) 650 mg Q6H PRN MS PAIN LEVEL 1-3 OR FEVER Last administered on 06/09/16at 03:37; Admin Dose 650 MG; Start 06/03/16 at 17:00 Docusate Sodium (Colace) 100 mg Q12H PRN PO CONSTIPATION; Start 06/03/16 at 17 :00 Magnesium Hydroxide (Milk Of Mag) 30 ml DAILY PRN PO CONSTIPATION; Start 06/03 at 17:00 Bisacodyl (Dulcolax) 5 mg DAILY PRN PO CONSTIPATION; Start 06/03/16 at 17:00 Bisacodyl (Dulcolax Supp) 10 mg DAILY PRN MS CONSTIPATION; Start 06/03/16 at 17:00 Sodium Biphosphate/ Sodium Phosphate (Fleet Enema) 133 ml DAILY PRN MS CONSTIPATION; Start 06/03/16 at 17:00 Enoxaparin Sodium (Lovenox) 30 mg DAILY SC Last administered on 06/12/16at 08: 27; Admin Dose 30 MG; Start 06/04/16 at 09:00; Status Future Hold Allopurinol (Zyloprim) 300 mg DAILY PO Last administered on 06/19/16 09:19; Admin Dose 300 MG; Start 06/04/16 at 09:00 Eye Lubricant (Artificial Tears Oph) 2 drop QID BOTH EYES Last administered on 06/19/16 17:55; Admin Dose 2 DROP; Start 06/03/16 at 21:00 Eye Lubricant (Akwa Oint) 1 applic DAILY BOTH EYES Last administered on 09:20; Admin Dose 1 APPLIC; Start 06/04/16 at 09:00 Gabapentin (Neurontin) 200 mg TID PO Last administered on 06/19/16 14:06; Admin Dose 200 MG; Start 06/03/16 at 21:00 Levothyroxine Sodium (Synthroid) 100 mcg DAILY@06 PO Last administered on 06/19 05:55; Admin Dose 100 MCG; Start 06/04/16 at 06:00 Mupirocin (Bactroban) 1 applic BID TOP Last administered on 06/19/16 09:20; Admin Dose 1 APPLIC; Start 06/04/16 at 21:00 Pantoprazole (Protonix Iv) 40 mg DAILY@06 IV Last administered on 06/19/16 05 :55; Admin Dose 40 MG; Start 06/09/16 at 06:00 Lorazepam 1 mg 1 mg Q6H PRN IV AGITATION/ANXIETY Last administered on 16:12; Admin Dose 1 MG; Start 06/08/16 at 18:00 Fluconazole (Diflucan 200 Mg/ NS (Pmx)) 100 ml @ 100 mls/hr Q24H IVPB Last administered on 06/19/16 05:54; Admin Dose 100 MLS/HR; Start 06/09/16 at 05: 30 Acetaminophen/ Hydrocodone Bitart ([place] (5/325)) 1 tab Q6H PRN PO PAIN Last administered on 06/11/16 17:38; Admin Dose 1 TAB; Start 06/11/16 at 17:30 Collagenase (Santyl) 1 applic DAILY TOP Last administered on 06/19/16at 09:21; Admin Dose 1 APPLIC; Start 06/12/16 at 09:00 Trimethoprim/ Sulfamethoxazole (Bactrim (Ds)) 1 tab BID PO Last administered on 06/19/16 09:19; Admin Dose 1 TAB; Start 06/13/16 at 21:00 Nystatin 5 ml 5 ml QID PO Last administered on 06/19/16at 17:55; Admin Dose 5 ML; Start 06/18/16 at 17:00 Filgrastim 300 mcg/Dextrose 51 ml @ 50 mls/hr DAILY@17 IVPB Last administered on 06/19/16 17:54; Admin Dose 50 MLS/HR; Start 06/18/16 at 17:00; Stop at 17:00 Sodium Bicarbonate 150 meq/Dextrose/ Sodium Chloride 1,000 ml @ 125 mls/hr Q8H IV Last administered on 06/19/16at 16:11; Admin Dose 125 MLS/HR; Start at 14:00 Leucovorin Calcium/Dextrose (Leucovorin Calcium Inj/D5W) 50 ml @ 50 mls/hr Q6H IV Last administered on 06/19/16 17:53; Admin Dose 50 MLS/HR; Start at 16:30 Assessment/Plan Chief Complaint/Hosp Course MICROBIOLOGY: Blood cultures from 06/08/2016 grew coagulase-negative staph species. Repeat blood cultures negative. Nares swab/sputum cx positive for MRSA. INDWELLINGS: Trach and left upper extremity PICC line. ANTIMICROBIALS: 1. PO Bactrim 2. Topical Bactroban to nares. 3. Fluconazole. 4. Acyclovir. PHYSICAL EXAMINATION: GENERAL: This is a well-developed, ill-appearing, middle-aged [place] woman who is alert, in no distress. HEENT: Head atraumatic, normocephalic. Sclerae anicteric. Buccal mucosa pink. NECK: Supple. Tracheostomy present. CHEST: Rise symmetrical. Breath sounds CTA. HEART: S1, S2. ABDOMEN: Soft, bowel tones present. EXTREMITIES: Without cyanosis. ASSESSMENT: 1. S/p sepsis with high fevers likely secondary to neutropenia. 2. Coagulase-negative Staphylococcus bacteremia cw contaminant. 3. Methicillin-resistant Staphylococcus aureus nares colonization. 4. Possible aspiration pneumonia===> sputum cx + MRSA. 5. Stage IIA Burkitt's lymphoma, getting chemotherapy. The next cycle on Thursday. 6. Respiratory failure, status post tracheostomy secondary to a neck mass causing tracheal compression and airway compromise, remains on trach collar. 7. Leukocytosis==> s/p Neupogen 8. Oral thrush==> oral Nystatin PLAN: More depressed and weak, no fevers, continue abx/Bactroban to nares. Chemo per oncology [facility] staff Problems: RODRÍGUEZ ERAZO NP Jun 19, 2016 18:28
[2016-06-19 21:05] VITALS: BP 108/66; PULSE 104; RESP 18
[2016-06-20] MEDS: ALBUTEROL/IPRATROPIUM (NEB) 3 ML AMP HHN SCH ×6 (01:58→21:39)
[2016-06-20] MEDS: DEXTROSE 5% IV SCH ×2 (04:46→11:45)
[2016-06-20] MEDS: LEUCOVORIN CALCIUM IV SCH ×2 (04:46→11:45)
[2016-06-20] MEDS: SODIUM BICARBONATE (IV ADD) 150 MEQ in DEXTROSE 5%-0.45% NACL 850 ML IV SCH (04:49)
[2016-06-20 05:57] LABS: HEMATOCRIT 29.2 % (37.0-47.0); HEMOGLOBIN 10.1 g/dl (12.0-16.0); LYMPHOCYTES # 0.3 10^3/ul (0.8-2.9); LYMPHOCYTES % 7.1 % (15.0-51.0); MEAN CORPUSCULAR HEMOGLOBIN 29.2 pg (29.0-33.0); MEAN CORPUSCULAR HGB CONC 34.7 g/dl (32.0-37.0); MEAN CORPUSCULAR VOLUME 84.3 fl (82.0-101.0); MEAN PLATELET VOLUME 8.4 fl (7.4-10.4); MONOCYTES % 0.5 % (0.0-11.0); NEUTROPHIL # 3.3 10^3/ul (1.6-7.5); NEUTROPHILS % 92.4 % (39.0-77.0); PLATELET COUNT 57 10^3/UL (140-440); RED BLOOD COUNT 3.46 10^6/ul (4.20-5.40); RED CELL DISTRIBUTION WIDTH 16.4 % (11.5-14.5); UNCORRECTED WBC 3.6 10^3/ul (4.8-10.8); WHITE BLOOD COUNT 3.6 10^3/ul (4.8-10.8)
[2016-06-20 06:14] LABS: POTASSIUM 3.5 mmol/L (3.5-5.1)
[2016-06-20] MEDS: DOCUSATE SODIUM 100 MG CAP PO PRN ×2 (06:15→22:25)
[2016-06-20] MEDS: LEVOTHYROXINE 100 MCG TAB PO SCH (06:15)
[2016-06-20] MEDS: FLUCONAZOLE 200 MG/NS (PMX) 100 ML IVPB SCH (06:15)
[2016-06-20 06:16] LABS: ALBUMIN/GLOBULIN RATIO 1.25; BILIRUBIN,INDIRECT 0.4 mg/dl (0-1.1); BILIRUBIN,TOTAL 0.4 mg/dl (0.2-1.3); CREATININE 0.38 mg/dl (0.44-1.00); TOTAL PROTEIN 5.4 g/dl (6.1-8.1)
[2016-06-20] MEDS: PANTOPRAZOLE 40 MG INJ IV SCH (06:16)
[2016-06-20 06:17] LABS: CALCIUM 8.5 mg/dl (8.4-10.2); URIC ACID 0.8 mg/dl (3.1-7.9)
[2016-06-20 06:18] LABS: CONDITION 1; LH ANALYZER COMMENTS 1; SUSPECT 1
[2016-06-20 08:38] VITALS: BP 111/74; PULSE 104; RESP 18
[2016-06-20] MEDS ORDERED: IOHEXOL 300MG/ML 150 ML BTL ONE (08:56)
[2016-06-20] MEDS ORDERED: SOD CHLORIDE 0.9% 100 ML ONE (08:56)
[2016-06-20] MEDS: GABAPENTIN 100 MG CAP PO SCH ×3 (09:33→22:25)
[2016-06-20] MEDS: ALLOPURINOL 300 MG TAB PO SCH (09:33)
[2016-06-20] MEDS: TRIMETHOPRIM/SULFAMETHOX (DS) TAB PO SCH ×2 (09:33→22:25)
[2016-06-20] MEDS: NYSTATIN SUSP 5 ML CUP PO SCH ×4 (09:33→22:26)
[2016-06-20] MEDS: ACYCLOVIR 400 MG TAB PO SCH ×2 (09:33→22:25)
[2016-06-20] MEDS: ARTIFICIAL TEARS 15 ML OPH BOTH EYES SCH ×4 (09:45→22:24)
[2016-06-20] MEDS: MUPIROCIN 2% 22 GM OINT TOP SCH ×2 (09:46→22:26)
[2016-06-20] MEDS: OCULAR LUBRICANT 3.5 GM OPH OINT BOTH EYES SCH (09:46)
[2016-06-20] MEDS: COLLAGENASE 30 GM TUBE TOP SCH (11:47)
--- NOTE | 2016-06-20 11:54 | RADRPT ---
PROCEDURE: CT Neck with and without contrast. CLINICAL INDICATION: 56-year-old female with suspected tracheal stenosis. TECHNIQUE: The study was performed utilizing a multislice multidetector CT scanner. Direct spiral 1 mm axial sections were obtained through the neck with the use of with and without the use of intra venous contrast material. 80 cc of [id number] was utilized without complication. Coronal and sag ittal as well as maximal intensity projection reformations were obtained. The images were reviewed o n a PACS workstation. RADIATION DOSE: CTDIvol: 10.1 mGyDLP: 441.5 mGy-cm COMPARISON: 05/14/2016 FINDINGS: There is a tracheostomy in place. The trachea is adequately patent surrounding the tracheostomy wit hout significant tracheal stenosis. No definite tracheal lead is visualized. There is redemonstrat ion of extensive heterogeneity of the right thyroid gland. There is stable prominent peripherally c alcified left thyroid cyst. There is a second prominent cyst in the left thyroid gland measuring 13 mm, with heterogeneous enhancement of the right thyroid gland. The nasopharynx, oropharynx and hyp opharynx are normal in appearance. There is no tongue base mass. The larynx is normal in appearanc e. The parotid and submandibular glands are normal in appearance. No enlarged cervical lymph nodes are seen. The vascular structures are normal. The paranasal sinuses and orbits are normal. Limit ed visualization of the intracranial contents is unremarkable. There are mild to moderate degenerat eduardo changes of the cervical spine at C5-6 and C6-7. The lung apices are normal in appearance. IMPRESSION: 1. Tracheostomy tube in place without significant stenosis surrounding the tracheostomy. No eviden ce of tracheal web. 2. Extensive heterogeneous enhancement of the bilateral thyroid glands, which is essentially stable compared to the prior examination on 05/14/2016. There is stable appearance of prominent cyst in t he lateral thyroid gland with prominent peripherally calcified cyst in the medial left thyroid gland . Ultrasound may be helpful for further evaluation. 3. Otherwise, normal CT of the neck soft tissues. No mass lesion, lymphadenopathy or abnormal flui d collection. RPTAT: DD .Yovany Blood MD, MD Date Time Electronically viewed and signed by .Yovany Blood MD, on 06/20/2016 11:53 .S/
[2016-06-20 12:00] VITALS: BP_SYST 110; BP_SYST 117; BP_DIAS 65; BP_DIAS 72; PULSE 101; RESP 17
--- NOTE | 2016-06-20 12:28 | CONS ---
Date/Time of Note Date/Time of Note DATE: 06/20/16 TIME: 12:25 Assessment/Plan Assessment/Plan Chief Complaint/Hosp Course Assessment/Plan # Burkitt's lymphoma -continue with cycle 1 R CODOX -M -Rituximab (Rituxan) as follows: * Cycle 1: 375 mg/m2 (660mg) IV on Day 1 -Cyclophosphamide (Cytoxan) 800 mg/m2 ( 1415mg) IV once per day on days 1 & 2 -Vincristine (Oncovin) 1.0 mg (dose reduced for neuropathy) days 1 & 15 . next dose due on 06/17 -Doxorubicin (Adriamycin) 50 mg/m2 (88mg) IV once on day 1 -Methotrexate (MTX) 100mg/m2 (175mg) IV over 1 hour then 900mg/m2 (1590mg) over 23 hours on day 15. will start IVF with 2 amps Na HCo3 prior to MTX infusion since Urine Ph > 7.0. Leucovorin 25mg IV q 4 hours will start 36 hours after MTX starts until MTX level is < 0.05. next dose due today 06/16. Methotrexate at 72 hours is 0.05, which is at goal. Can stop bicarb and leucovorin, can stop checking urine pH. - Patient complaining of feeling of tightness around trach cannula. RT already evaluated patient. Discussed with Dr. Curran, given oxygenation adequate, will continue to monitor. Repeat CT neck 06/20 shows no stenosis, overal stable findings. Consider ENT consult if worsens. Currently resolved, may be related to mucous plugging, improved after suctioning per nurse. # Neutropenic fever -pt is now afebrile and will dc precautions -held dose 06/17/16 for neupogen, resarted 06/18/16 for 5 days (D3-7) as WBC now dropping and will be expected to continue to decline. Continue neupogen, continue to monitor counts. -continue antibiotics. # Supportive Care and prophylactic meds -Started Acyclovir 400mg BID -fluconazole 100mg q day -Neupogen 300mcg q day -Zofran ordered prn nausea #Expected Pancytopenia -keep Hg> 8 and platelets > 10 # Elevated AST and ALT, likely related to methotrexate. Monitor. 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 all steroids should be discontinued for now unless they are part of the chemotherapy regimen -continue to work with physical therapy. 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 -uric acid level ok -will continue to monitor LDH Problems: Consultation Date/Type/Reason Admit Date/Time Jun 02, 2016 at 15:10 Initial Consult Date 06/02/16 Type of Consultation: Hematology/Oncology Referring Provider: TELLY SOLANO MD 24 HR Interval Summary Free Text/Dictation The patient states that she feels better today and no longer has the feeling of tightness in her throat. She was seen by respiratory therapy earlier and a mucous plug was suctioned according to the nurse. Exam/Review of Systems Vital Signs Vitals Vital Signs Date Time Temp Pulse Resp B/P Pulse Ox O2 Delivery O2 Flow Rate FiO2 06/20/16 09:00 Nasal Cannula 4.0 06/20/16 08:38 98.7 104 18 111/74 99 06/20/16 05:37 28 Intake and Output 06/19/16 06/19/16 06/20/16 15:00 23:00 07:00 Intake Total 450 ml 1900 ml Output Total 3 ml 450 ml Balance 447 ml 1450 ml Exam Constitutional: alert, oriented Head: normocephalic Eyes: nl conjunctiva ENMT: nl external ears & nose Neck: other (trach in place) Respiratory: clear to auscultation, normal air movement Cardiovascular: nl pulses, regular rate and rhythm Gastrointestinal: soft Musculoskeletal: nl extremities to inspection, nl gait and stance Extremities: normal pulses Results Result Diagram: 06/20/16 0450 06/20/16 0450 Results 24 hrs Laboratory Tests Test 06/19/16 14:55 06/20/16 04:50 Urine Bacteria OCCASIONAL Urine Bilirubin NEGATIVE Urine Clarity CLEAR Urine Color LT. YELLOW Urine Glucose NEGATIVE Urine Hemoglobin TRACE Urine Ketones NEGATIVE Urine Leukocyte Esterase NEGATIVE Urine Microscopic RBC 0-2 Urine Microscopic WBC 0-2 Urine Nitrite NEGATIVE Urine Specific Hunter 1.015 Urine Squamous Epithelial Cells FEW Urine Total Protein NEGATIVE Urine Urobilinogen 0.2 E.U./dL Urine pH 8.0 Alanine Aminotransferase (ALT/SGPT) 157 H Albumin 3.0 L Albumin/Globulin Ratio 1.25 Alkaline Phosphatase 130 H Anion Gap 13 Aspartate Amino Transf (AST/SGOT) 149 H Basophils # 0.0 Basophils % 0.0 Blood Morphology Comment Blood Urea Nitrogen 5 L Calcium Level 8.5 Carbon Dioxide Level 34 H Chloride Level 96 L Creatinine 0.38 L Direct Bilirubin 0.00 Eosinophils # 0.0 Eosinophils % 0.0 Globulin 2.40 Glucose Level 110 Hematocrit 29.2 L Hemoglobin 10.1 L Indirect Bilirubin 0.4 Lactate Dehydrogenase 1064 H Lymphocytes # 0.3 L Lymphocytes % 7.1 L Mean Corpuscular Hemoglobin 29.2 Mean Corpuscular Hemoglobin Concent 34.7 Mean Corpuscular Volume 84.3 Mean Platelet Volume 8.4 Monocytes # 0.0 L Monocytes % 0.5 Neutrophils # 3.3 Neutrophils % 92.4 H Nucleated Red Blood Cells # 0.0 Nucleated Red Blood Cells % 0.0 Platelet Count 57 L Potassium Level 3.5 Red Blood Count 3.46 L Red Cell Distribution Width 16.4 H Sodium Level 139 Total Bilirubin 0.4 Total Protein 5.4 L Uric Acid 0.8 L White Blood Count 3.6 #L Medications Medications Current Medications Acyclovir (Zovirax) 400 mg BID PO Last administered on 06/20/16at 09:33; Admin Dose 400 MG; Start 06/02/16 at 14:30 Diphenhydramine HCl (Benadryl) 25 mg Q4H PRN IV ALLERGIC REACTION Last administered on 06/06/16at 20:26; Admin Dose 25 MG; Start 06/02/16 at 18:30 Dexamethasone (Decadron) 10 mg Q4H PRN IV ALLERGIC REACTION; Start 06/02/16 at 18:30 Fluconazole 100 mg 100 mg DAILY PO Last administered on 06/08/16at 09:58; Admin Dose 100 MG; Start 06/03/16 at 09:00; Status Future Hold Ondansetron HCl/ Sodium Chloride (Zofran Inj/NS) 54 ml @ 216 mls/hr Q6H PRN IV NAUSEA AND/OR VOMITING; Start 06/02/16 at 18:30 Ondansetron HCl (Zofran Inj) 4 mg Q6H PRN IV NAUSEA AND/OR VOMITING Last administered on 06/16/16at 02:20; Admin Dose 4 MG; Start 06/03/16 at 17:00 Acetaminophen (Tylenol Tab) 650 mg Q6H PRN PO PAIN LEVEL 1-3 OR FEVER Last administered on 06/11/16at 21:50; Admin Dose 650 MG; Start 06/03/16 at 17:00 Acetaminophen (Tylenol Supp) 650 mg Q6H PRN [place] PAIN LEVEL 1-3 OR FEVER Last administered on 06/09/16 03:37; Admin Dose 650 MG; Start 06/03/16 at 17:00 Docusate Sodium (Colace) 100 mg Q12H PRN PO CONSTIPATION Last administered on 06/20/16 06:15; Admin Dose 100 MG; Start 06/03/16 at 17:00 Magnesium Hydroxide (Milk Of Mag) 30 ml DAILY PRN PO CONSTIPATION Last administered on 06/20/16 06:13; Admin Dose 30 ML; Start 06/03/16 at 17:00 Bisacodyl (Dulcolax) 5 mg DAILY PRN PO CONSTIPATION; Start 06/03/16 at 17:00 Bisacodyl (Dulcolax Supp) 10 mg DAILY PRN [place] CONSTIPATION; Start 06/03/16 at 17:00 Sodium Biphosphate/ Sodium Phosphate (Fleet Enema) 133 ml DAILY PRN [place] CONSTIPATION; Start 06/03/16 at 17:00 Enoxaparin Sodium (Lovenox) 30 mg DAILY SC Last administered on 06/12/16 08: 27; Admin Dose 30 MG; Start 06/04/16 at 09:00; Status Future Hold Allopurinol (Zyloprim) 300 mg DAILY PO Last administered on 06/20/16 09:33; Admin Dose 300 MG; Start 06/04/16 at 09:00 Eye Lubricant (Artificial Tears Oph) 2 drop QID BOTH EYES Last administered on 06/20/16 09:45; Admin Dose 2 DROP; Start 06/03/16 at 21:00 Eye Lubricant (Akwa Oint) 1 applic DAILY BOTH EYES Last administered on 09:46; Admin Dose 1 APPLIC; Start 06/04/16 at 09:00 Gabapentin (Neurontin) 200 mg TID PO Last administered on 06/20/16 09:33; Admin Dose 200 MG; Start 06/03/16 at 21:00 Levothyroxine Sodium (Synthroid) 100 mcg DAILY@06 PO Last administered on 06/20 06:15; Admin Dose 100 MCG; Start 06/04/16 at 06:00 Mupirocin (Bactroban) 1 applic BID TOP Last administered on 06/20/16 09:46; Admin Dose 1 APPLIC; Start 06/04/16 at 21:00 Pantoprazole (Protonix Iv) 40 mg DAILY@06 IV Last administered on 06/20/16at 06 :16; Admin Dose 40 MG; Start 06/09/16 at 06:00 Lorazepam 1 mg 1 mg Q6H PRN IV AGITATION/ANXIETY Last administered on 16:12; Admin Dose 1 MG; Start 06/08/16 at 18:00 Fluconazole (Diflucan 200 Mg/ NS (Pmx)) 100 ml @ 100 mls/hr Q24H IVPB Last administered on 06/20/16 06:15; Admin Dose 100 MLS/HR; Start 06/09/16 at 05: 30 Acetaminophen/ Hydrocodone Bitart ([place] (5/325)) 1 tab Q6H PRN PO PAIN Last administered on 06/11/16 17:38; Admin Dose 1 TAB; Start 06/11/16 at 17:30 Collagenase (Santyl) 1 applic DAILY TOP Last administered on 06/20/16 11:47; Admin Dose 1 APPLIC; Start 06/12/16 at 09:00 Trimethoprim/ Sulfamethoxazole (Bactrim (Ds)) 1 tab BID PO Last administered on 06/20/16 09:33; Admin Dose 1 TAB; Start 06/13/16 at 21:00 Nystatin 5 ml 5 ml QID PO Last administered on 06/20/16 09:33; Admin Dose 5 ML; Start 06/18/16 at 17:00 Filgrastim 300 mcg/Dextrose 51 ml @ 50 mls/hr DAILY@17 IVPB Last administered on 06/19/16at 17:54; Admin Dose 50 MLS/HR; Start 06/18/16 at 17:00; Stop at 17:00 Sodium Bicarbonate 150 meq/Dextrose/ Sodium Chloride 1,000 ml @ 125 mls/hr Q8H IV Last administered on 06/20/16 04:49; Admin Dose 125 MLS/HR; Start at 14:00 Leucovorin Calcium/Dextrose (Leucovorin Calcium Inj/D5W) 50 ml @ 50 mls/hr Q6H IV Last administered on 06/20/16at 11:45; Admin Dose 50 MLS/HR; Start at 16:30 TO,KELLY Hawkins MD Jun 20, 2016 12:28
--- NOTE | 2016-06-20 16:19 | CONS ---
Date/Time of Note Date/Time of Note DATE: 06/20/16 TIME: 16:18 Consult Date/Type/Reason Admit Date/Time Jun 02, 2016 at 15:10 Initial Consult Date 06/02/16 Type of Consultation: ID Ordering Provider: TELLY SOLANO MD Subjective alert, c/o feeling weak, no fevers, nad Objective Vital Signs Date Time Temp Pulse Resp B/P Pulse Ox O2 Delivery O2 Flow Rate FiO2 06/20/16 12:58 102 18 98 Nasal Cannula 2.0 06/20/16 12:00 98.0 117/72 06/20/16 05:37 28 Intake and Output 06/19/16 06/19/16 06/20/16 15:00 23:00 07:00 Intake Total 450 ml 1900 ml Output Total 3 ml 450 ml Balance 447 ml 1450 ml Results/Medications Result Diagram: 06/20/16 0450 06/20/16 0450 Results 24 hrs Laboratory Tests Test 06/20/16 04:50 Alanine Aminotransferase (ALT/SGPT) 157 H Albumin 3.0 L Albumin/Globulin Ratio 1.25 Alkaline Phosphatase 130 H Anion Gap 13 Aspartate Amino Transf (AST/SGOT) 149 H Basophils # 0.0 Basophils % 0.0 Blood Morphology Comment Blood Urea Nitrogen 5 L Calcium Level 8.5 Carbon Dioxide Level 34 H Chloride Level 96 L Creatinine 0.38 L Direct Bilirubin 0.00 Eosinophils # 0.0 Eosinophils % 0.0 Globulin 2.40 Glucose Level 110 Hematocrit 29.2 L Hemoglobin 10.1 L Indirect Bilirubin 0.4 Lactate Dehydrogenase 1064 H Lymphocytes # 0.3 L Lymphocytes % 7.1 L Mean Corpuscular Hemoglobin 29.2 Mean Corpuscular Hemoglobin Concent 34.7 Mean Corpuscular Volume 84.3 Mean Platelet Volume 8.4 Monocytes # 0.0 L Monocytes % 0.5 Neutrophils # 3.3 Neutrophils % 92.4 H Nucleated Red Blood Cells # 0.0 Nucleated Red Blood Cells % 0.0 Platelet Count 57 L Potassium Level 3.5 Red Blood Count 3.46 L Red Cell Distribution Width 16.4 H Sodium Level 139 Total Bilirubin 0.4 Total Protein 5.4 L Uric Acid 0.8 L White Blood Count 3.6 #L Medications Current Medications Acyclovir (Zovirax) 400 mg BID PO Last administered on 06/20/16at 09:33; Admin Dose 400 MG; Start 12/12/16 at 14:30 Diphenhydramine HCl (Benadryl) 25 mg Q4H PRN IV ALLERGIC REACTION Last administered on 06/06/16at 20:26; Admin Dose 25 MG; Start 06/02/16 at 18:30 Dexamethasone (Decadron) 10 mg Q4H PRN IV ALLERGIC REACTION; Start 06/02/16 at 18:30 Fluconazole 100 mg 100 mg DAILY PO Last administered on 06/08/16at 09:58; Admin Dose 100 MG; Start 06/03/16 at 09:00; Status Future Hold Ondansetron HCl/ Sodium Chloride (Zofran Inj/NS) 54 ml @ 216 mls/hr Q6H PRN IV NAUSEA AND/OR VOMITING; Start 06/02/16 at 18:30 Ondansetron HCl (Zofran Inj) 4 mg Q6H PRN IV NAUSEA AND/OR VOMITING Last administered on 06/16/16at 02:20; Admin Dose 4 MG; Start 06/03/16 at 17:00 Acetaminophen (Tylenol Tab) 650 mg Q6H PRN PO PAIN LEVEL 1-3 OR FEVER Last administered on 06/11/16at 21:50; Admin Dose 650 MG; Start 06/03/16 at 17:00 Acetaminophen (Tylenol Supp) 650 mg Q6H PRN [place] PAIN LEVEL 1-3 OR FEVER Last administered on 06/09/16at 03:37; Admin Dose 650 MG; Start 06/03/16 at 17:00 Docusate Sodium (Colace) 100 mg Q12H PRN PO CONSTIPATION Last administered on 06/20/16at 06:15; Admin Dose 100 MG; Start 06/03/16 at 17:00 Magnesium Hydroxide (Milk Of Mag) 30 ml DAILY PRN PO CONSTIPATION Last administered on 06/20/16at 06:13; Admin Dose 30 ML; Start 06/03/16 at 17:00 Bisacodyl (Dulcolax) 5 mg DAILY PRN PO CONSTIPATION; Start 06/03/16 at 17:00 Bisacodyl (Dulcolax Supp) 10 mg DAILY PRN [place] CONSTIPATION; Start 06/03/16 at 17:00 Sodium Biphosphate/ Sodium Phosphate (Fleet Enema) 133 ml DAILY PRN [place] CONSTIPATION; Start 06/03/16 at 17:00 Enoxaparin Sodium (Lovenox) 30 mg DAILY SC Last administered on 06/12/16 08: 27; Admin Dose 30 MG; Start 06/04/16 at 09:00; Status Future Hold Allopurinol (Zyloprim) 300 mg DAILY PO Last administered on 06/20/16 09:33; Admin Dose 300 MG; Start 06/04/16 at 09:00 Eye Lubricant (Artificial Tears Oph) 2 drop QID BOTH EYES Last administered on 06/20/16 13:49; Admin Dose 2 DROP; Start 06/03/16 at 21:00 Eye Lubricant (Akwa Oint) 1 applic DAILY BOTH EYES Last administered on 09:46; Admin Dose 1 APPLIC; Start 06/04/16 at 09:00 Gabapentin (Neurontin) 200 mg TID PO Last administered on 06/20/16 13:48; Admin Dose 200 MG; Start 06/03/16 at 21:00 Levothyroxine Sodium (Synthroid) 100 mcg DAILY@06 PO Last administered on 06/20 06:15; Admin Dose 100 MCG; Start 06/04/16 at 06:00 Mupirocin (Bactroban) 1 applic BID TOP Last administered on 06/20/16 09:46; Admin Dose 1 APPLIC; Start 06/04/16 at 21:00 Pantoprazole (Protonix Iv) 40 mg DAILY@06 IV Last administered on 06/20/16 06 :16; Admin Dose 40 MG; Start 06/09/16 at 06:00 Lorazepam 1 mg 1 mg Q6H PRN IV AGITATION/ANXIETY Last administered on 16:12; Admin Dose 1 MG; Start 06/08/16 at 18:00 Fluconazole (Diflucan 200 Mg/ NS (Pmx)) 100 ml @ 100 mls/hr Q24H IVPB Last administered on 06/20/16 06:15; Admin Dose 100 MLS/HR; Start 06/09/16 at 05: 30 Acetaminophen/ Hydrocodone Bitart ([place] (5/325)) 1 tab Q6H PRN PO PAIN Last administered on 06/11/16 17:38; Admin Dose 1 TAB; Start 06/11/16 at 17:30 Collagenase (Santyl) 1 applic DAILY TOP Last administered on 12/30/16at 11:47; Admin Dose 1 APPLIC; Start 06/12/16 at 09:00 Trimethoprim/ Sulfamethoxazole (Bactrim (Ds)) 1 tab BID PO Last administered on 06/20/16at 09:33; Admin Dose 1 TAB; Start 06/13/16 at 21:00 Nystatin 5 ml 5 ml QID PO Last administered on 06/20/16at 13:48; Admin Dose 5 ML; Start 06/18/16 at 17:00 Filgrastim/ Dextrose (Neupogen/D5W) 51 ml @ 50 mls/hr DAILY@17 IVPB Last administered on 06/19/16at 17:54; Admin Dose 50 MLS/HR; Start 06/18/16 at 17:00 ; Stop 06/22/16 at 17:00 Assessment/Plan Chief Complaint/Hosp Course MICROBIOLOGY: Blood cultures from 06/08/2016 grew coagulase-negative staph species. Repeat blood cultures negative. Nares swab/sputum cx positive for MRSA. INDWELLINGS: Trach and left upper extremity PICC line. ANTIMICROBIALS: 1. PO Bactrim 2. Topical Bactroban to nares. 3. Fluconazole. 4. Acyclovir. PHYSICAL EXAMINATION: GENERAL: This is a well-developed, ill-appearing, middle-aged [place] woman who is alert, in no distress. HEENT: Head atraumatic, normocephalic. Sclerae anicteric. Buccal mucosa pink. NECK: Supple. Tracheostomy present. CHEST: Rise symmetrical. Breath sounds CTA. HEART: S1, S2. ABDOMEN: Soft, bowel tones present. EXTREMITIES: Without cyanosis. ASSESSMENT: 1. S/p sepsis with high fevers likely secondary to neutropenia. 2. Coagulase-negative Staphylococcus bacteremia cw contaminant. 3. Methicillin-resistant Staphylococcus aureus nares colonization. 4. Possible aspiration pneumonia===> sputum cx + MRSA. 5. Stage IIA Burkitt's lymphoma, getting chemotherapy. The next cycle on Thursday. 6. Respiratory failure, status post tracheostomy secondary to a neck mass causing tracheal compression and airway compromise, remains on trach collar. 7. Leukocytosis==> s/p Neupogen 8. Oral thrush==> oral Nystatin PLAN: Stable, CT neck noted, continue abx/Bactroban to nares. Chemo per oncology [facility] staff /pt Problems: RODRÍGUEZ ERAZO NP Jun 20, 2016 16:19
[2016-06-20] MEDS: FILGRASTIM 300 MCG in DEXTROSE 5% 50 ML IVPB SCH (16:48)
--- NOTE | 2016-06-20 18:35 | PN ---
Date/Time of Note Date/Time of Note DATE: 06/20/16 TIME: 18:34 Assessment/Plan VTE Prophylaxis VTE Prophylaxis Intervention: other Lines/Catheters IV Catheter Type (from Nrs): PICC Line Central line still needed: Yes Urinary Cath still in place: No Assessment/Plan Chief Complaint/Hosp Course IMPRESSION: The patient has Burkitt's lymphoma status post tracheostomy, status post thyroid mass, status post pancytopenia, abnormal liver function test. The patient has PANCYTOPENIA, ON CHEMO SEPSIS hyperkalemia better ABN LFT PLAN PER DR MERLOS per id IV FLUID ck labs CHEMO CK US LIVER Problems: Subjective 24 Hr Interval Summary Cardiovascular: no complaints Gastrointestinal: no complaints Exam/Review of Systems Vital Signs Vitals Vital Signs Date Time Temp Pulse Resp B/P Pulse Ox O2 Delivery O2 Flow Rate FiO2 06/20/16 17:46 98 5.0 28 06/20/16 17:37 20 16 Nasal Cannula 06/20/16 12:00 98.0 117/72 Intake and Output 06/19/16 06/19/16 06/20/16 14:59 22:59 06:59 Intake Total 450 ml 1900 ml Output Total 3 ml 450 ml Balance 447 ml 1450 ml Exam Respiratory: clear to auscultation Cardiovascular: regular rate and rhythm Gastrointestinal: bowel sounds (+), soft Extremities: No edema Results Result Diagram: 06/20/160 06/20/16 0450 Results 24 hrs Laboratory Tests Test 06/20/16 04:50 Alanine Aminotransferase (ALT/SGPT) 157 H Albumin 3.0 L Albumin/Globulin Ratio 1.25 Alkaline Phosphatase 130 H Anion Gap 13 Aspartate Amino Transf (AST/SGOT) 149 H Basophils # 0.0 Basophils % 0.0 Blood Morphology Comment Blood Urea Nitrogen 5 L Calcium Level 8.5 Carbon Dioxide Level 34 H Chloride Level 96 L Creatinine 0.38 L Direct Bilirubin 0.00 Eosinophils # 0.0 Eosinophils % 0.0 Globulin 2.40 Glucose Level 110 Hematocrit 29.2 L Hemoglobin 10.1 L Indirect Bilirubin 0.4 Lactate Dehydrogenase 1064 H Lymphocytes # 0.3 L Lymphocytes % 7.1 L Mean Corpuscular Hemoglobin 29.2 Mean Corpuscular Hemoglobin Concent 34.7 Mean Corpuscular Volume 84.3 Mean Platelet Volume 8.4 Monocytes # 0.0 L Monocytes % 0.5 Neutrophils # 3.3 Neutrophils % 92.4 H Nucleated Red Blood Cells # 0.0 Nucleated Red Blood Cells % 0.0 Platelet Count 57 L Potassium Level 3.5 Red Blood Count 3.46 L Red Cell Distribution Width 16.4 H Sodium Level 139 Total Bilirubin 0.4 Total Protein 5.4 L Uric Acid 0.8 L White Blood Count 3.6 #L Medications Medications Current Medications Acyclovir (Zovirax) 400 mg BID PO Last administered on 06/20/16 09:33; Admin Dose 400 MG; Start 06/02/16 at 14:30 Diphenhydramine HCl (Benadryl) 25 mg Q4H PRN IV ALLERGIC REACTION Last administered on 06/06/16 20:26; Admin Dose 25 MG; Start 06/02/16 at 18:30 Dexamethasone (Decadron) 10 mg Q4H PRN IV ALLERGIC REACTION; Start 06/02/16 at 18:30 Fluconazole 100 mg 100 mg DAILY PO Last administered on 06/08/16 09:58; Admin Dose 100 MG; Start 06/03/16 at 09:00; Status Future Hold Ondansetron HCl/ Sodium Chloride (Zofran Inj/NS) 54 ml @ 216 mls/hr Q6H PRN IV NAUSEA AND/OR VOMITING; Start 06/02/16 at 18:30 Ondansetron HCl (Zofran Inj) 4 mg Q6H PRN IV NAUSEA AND/OR VOMITING Last administered on 06/16/16 02:20; Admin Dose 4 MG; Start 06/03/16 at 17:00 Acetaminophen (Tylenol Tab) 650 mg Q6H PRN PO PAIN LEVEL 1-3 OR FEVER Last administered on 06/11/16at 21:50; Admin Dose 650 MG; Start 06/03/16 at 17:00 Acetaminophen (Tylenol Supp) 650 mg Q6H PRN [place] PAIN LEVEL 1-3 OR FEVER Last administered on 06/09/16 03:37; Admin Dose 650 MG; Start 06/03/16 at 17:00 Docusate Sodium (Colace) 100 mg Q12H PRN PO CONSTIPATION Last administered on 06/20/16 06:15; Admin Dose 100 MG; Start 06/03/16 at 17:00 Magnesium Hydroxide (Milk Of Mag) 30 ml DAILY PRN PO CONSTIPATION Last administered on 06/20/16 06:13; Admin Dose 30 ML; Start 06/03/16 at 17:00 Bisacodyl (Dulcolax) 5 mg DAILY PRN PO CONSTIPATION; Start 06/03/16 at 17:00 Bisacodyl (Dulcolax Supp) 10 mg DAILY PRN [place] CONSTIPATION; Start 06/03/16 at 17:00 Sodium Biphosphate/ Sodium Phosphate (Fleet Enema) 133 ml DAILY PRN [place] CONSTIPATION; Start 06/03/16 at 17:00 Enoxaparin Sodium (Lovenox) 30 mg DAILY SC Last administered on 06/12/16at 08: 27; Admin Dose 30 MG; Start 06/04/16 at 09:00; Status Future Hold Allopurinol (Zyloprim) 300 mg DAILY PO Last administered on 06/20/16 09:33; Admin Dose 300 MG; Start 06/04/16 at 09:00 Eye Lubricant (Artificial Tears Oph) 2 drop QID BOTH EYES Last administered on 06/20/16 18:06; Admin Dose 2 DROP; Start 06/03/16 at 21:00 Eye Lubricant (Akwa Oint) 1 applic DAILY BOTH EYES Last administered on 09:46; Admin Dose 1 APPLIC; Start 06/04/16 at 09:00 Gabapentin (Neurontin) 200 mg TID PO Last administered on 06/20/16 13:48; Admin Dose 200 MG; Start 06/03/16 at 21:00 Levothyroxine Sodium (Synthroid) 100 mcg DAILY@06 PO Last administered on 06/20 06:15; Admin Dose 100 MCG; Start 06/04/16 at 06:00 Mupirocin (Bactroban) 1 applic BID TOP Last administered on 06/20/16 09:46; Admin Dose 1 APPLIC; Start 06/04/16 at 21:00 Pantoprazole (Protonix Iv) 40 mg DAILY@06 IV Last administered on 06/20/16 06 :16; Admin Dose 40 MG; Start 06/09/16 at 06:00 Lorazepam 1 mg 1 mg Q6H PRN IV AGITATION/ANXIETY Last administered on at 16:12; Admin Dose 1 MG; Start 06/08/16 at 18:00 Fluconazole (Diflucan 200 Mg/ NS (Pmx)) 100 ml @ 100 mls/hr Q24H IVPB Last administered on 06/20/16 06:15; Admin Dose 100 MLS/HR; Start 06/09/16 at 05: 30 Acetaminophen/ Hydrocodone Bitart ([place] (5/325)) 1 tab Q6H PRN PO PAIN Last administered on 06/11/16 17:38; Admin Dose 1 TAB; Start 06/11/16 at 17:30 Collagenase (Santyl) 1 applic DAILY TOP Last administered on 06/20/16 11:47; Admin Dose 1 APPLIC; Start 06/12/16 at 09:00 Trimethoprim/ Sulfamethoxazole (Bactrim (Ds)) 1 tab BID PO Last administered on 06/20/16 09:33; Admin Dose 1 TAB; Start 06/13/16 at 21:00 Nystatin 5 ml 5 ml QID PO Last administered on 06/20/16 18:05; Admin Dose 5 ML; Start 06/18/16 at 17:00 Filgrastim/ Dextrose (Neupogen/D5W) 51 ml @ 50 mls/hr DAILY@17 IVPB Last administered on 06/20/16 16:48; Admin Dose 50 MLS/HR; Start 06/18/16 at 17:00 ; Stop 06/22/16 at 17:00 GUERLINE SULLIVAN MD Jun 20, 2016 18:35
[2016-06-20 21:10] VITALS: BP 106/71; PULSE 104; RESP 18
[2016-06-20] MEDS: DEXTROSE 5%-0.9% NACL 1,000 ML IV SCH (22:24)
[2016-06-20] MEDS: ONDANSETRON 4 MG INJ IV PRN (22:33)
[2016-06-21] MEDS: ALBUTEROL/IPRATROPIUM (NEB) 3 ML AMP HHN SCH ×6 (01:53→20:13)
[2016-06-21] MEDS: DEXTROSE 5%-0.9% NACL 1,000 ML IV SCH ×3 (04:00→15:47)
[2016-06-21] MEDS: FLUCONAZOLE 200 MG/NS (PMX) 100 ML IVPB SCH (04:51)
[2016-06-21] MEDS: PANTOPRAZOLE 40 MG INJ IV SCH (05:18)
[2016-06-21 05:36] LABS: BASOPHILS % 0.2 % (0.0-2.0); EOSINOPHILS % 0.1 % (0.0-7.0); HEMOGLOBIN 9.4 g/dl (12.0-16.0); LYMPHOCYTES # 0.3 10^3/ul (0.8-2.9); MEAN CORPUSCULAR HEMOGLOBIN 29.5 pg (29.0-33.0); MEAN CORPUSCULAR HGB CONC 34.7 g/dl (32.0-37.0); MEAN CORPUSCULAR VOLUME 84.8 fl (82.0-101.0); MEAN PLATELET VOLUME 8.5 fl (7.4-10.4); MONOCYTE # 0.1 10^3/ul (0.3-0.9); MONOCYTES % 2.3 % (0.0-11.0); NEUTROPHIL # 2.2 10^3/ul (1.6-7.5); NEUTROPHILS % 86.4 % (39.0-77.0); PLATELET COUNT 67 10^3/UL (140-440); RED BLOOD COUNT 3.19 10^6/ul (4.20-5.40); RED CELL DISTRIBUTION WIDTH 15.6 % (11.5-14.5); UNCORRECTED WBC 2.5 10^3/ul (4.8-10.8); WHITE BLOOD COUNT 2.5 10^3/ul (4.8-10.8)
[2016-06-21 05:49] LABS: ALBUMIN 3.1 g/dl (3.3-4.9); POTASSIUM 4.1 mmol/L (3.5-5.1)
[2016-06-21 05:51] LABS: CREATININE 0.37 mg/dl (0.44-1.00)
[2016-06-21 05:52] LABS: ALBUMIN/GLOBULIN RATIO 1.24; BILIRUBIN,INDIRECT 0.4 mg/dl (0-1.1); BILIRUBIN,TOTAL 0.4 mg/dl (0.2-1.3); TOTAL PROTEIN 5.6 g/dl (6.1-8.1); URIC ACID 0.8 mg/dl (3.1-7.9)
[2016-06-21 05:53] LABS: CALCIUM 8.8 mg/dl (8.4-10.2)
[2016-06-21] MEDS: LEVOTHYROXINE 100 MCG TAB PO SCH ×2 (06:00→09:57)
[2016-06-21 06:08] LABS: CONDITION 1; LH ANALYZER COMMENTS 1; SUSPECT 1
[2016-06-21 08:12] LABS: ANISOCYTOSIS 1+; PLATELET ESTIMATE PLT APPEAR DECREASED
[2016-06-21 08:41] VITALS: BP 152/64; PULSE 103; RESP 17
[2016-06-21] MEDS: ALLOPURINOL 300 MG TAB PO SCH (09:57)
[2016-06-21] MEDS: TRIMETHOPRIM/SULFAMETHOX (DS) TAB PO SCH ×2 (09:57→21:19)
[2016-06-21] MEDS: ACYCLOVIR 400 MG TAB PO SCH ×2 (09:57→21:19)
[2016-06-21] MEDS: NYSTATIN SUSP 5 ML CUP PO SCH ×4 (09:57→21:19)
[2016-06-21] MEDS: GABAPENTIN 100 MG CAP PO SCH ×3 (09:58→21:19)
[2016-06-21] MEDS: OCULAR LUBRICANT 3.5 GM OPH OINT BOTH EYES SCH (09:58)
[2016-06-21] MEDS: ARTIFICIAL TEARS 15 ML OPH BOTH EYES SCH ×4 (09:58→21:20)
[2016-06-21] MEDS: MUPIROCIN 2% 22 GM OINT TOP SCH ×2 (09:59→21:20)
[2016-06-21] MEDS: COLLAGENASE 30 GM TUBE TOP SCH (10:00)
--- NOTE | 2016-06-21 12:31 | RADRPT ---
PROCEDURE: US Abdomen (right upper quadrant). CLINICAL INDICATION: History of lymphoma, elevated liver function tests TECHNIQUE: Multiple real-time longitudinal and transverse images of the right upper quadrant of th e abdomen were acquired utilizing a curved array transducer. Images were reviewed on a high-resoluti on PACS workstation. COMPARISON: CT dated 05/14/2016 FINDINGS: The liver is normal in size and echogenicity, without focal mass or intrahepatic biliary dilatation. There is a 3 cm hyperechoic focus with posterior shadowing in the region of the neck of the gallblad valerie which may represent calcified gallstone in the neck of the gallbladder versus calcified mass or calcified aneurysm. There is no gallbladder wall thickening. No intra or extrahepatic biliary dilatation is seen. The common bile duct measures 4.8 mm in maximal dimension. The visualized portions of the pancreas are unremarkable with obscuration of the tail of the pancrea s. No free fluid is identified. The right kidney measures 9.8 cm in length. There is normal echogenicity within the right kidney. There is no perinephric fluid collection. No hydronephrosis, mass, or calculus is seen. IMPRESSION: 1. Cholelithiasis with 3 cm calcified gallstone within the neck of gallbladder versus liver calcifi cation adjacent to the neck of gallbladder. Visualization is limited due to posterior shadowing. 2. Otherwise unremarkable right upper quadrant ultrasound. RPTAT: QQ .Parminder Díaz MD, Date Time Electronically viewed and signed by .Parminder Díaz MD, on 06/21/2016 12:31 .M/
--- NOTE | 2016-06-21 15:05 | PN ---
Date/Time of Note Date/Time of Note DATE: 06/21/16 TIME: 15:02 Assessment/Plan VTE Prophylaxis VTE Prophylaxis Intervention: other Lines/Catheters IV Catheter Type (from Nrs): PICC Line Central line still needed: Yes Urinary Cath still in place: No Assessment/Plan Chief Complaint/Hosp Course IMPRESSION: The patient has Burkitt's lymphoma status post tracheostomy, status post thyroid mass, status post pancytopenia, abnormal liver function test. The patient has PANCYTOPENIA, ON CHEMO SEPSIS gallstone ABN LFT PLAN PER DR MERLOS per id IV FLUID ck labs CHEMO dr wylie to see called Problems: Subjective 24 Hr Interval Summary Respiratory: no complaints Cardiovascular: no complaints Gastrointestinal: nausea (+), no complaints Exam/Review of Systems Vital Signs Vitals Vital Signs Date Time Temp Pulse Resp B/P Pulse Ox O2 Delivery O2 Flow Rate FiO2 06/21/16 12:29 108 20 99 Aerosol 5.0 28 T Tube 06/21/16 08:41 98.5 152/64 Intake and Output 06/20/16 06/20/16 06/21/16 15:00 23:00 07:00 Intake Total 50 ml 1951 ml 1800 ml Output Total 900 ml Balance 50 ml 1951 ml 900 ml Exam Respiratory: clear to auscultation Cardiovascular: regular rate and rhythm Gastrointestinal: bowel sounds (+), soft Extremities: No edema Results Result Diagram: 06/21/16 0436 06/21/16 0436 Results 24 hrs Laboratory Tests Test 06/21/16 04:36 Alanine Aminotransferase (ALT/SGPT) 148 H Albumin 3.1 L Albumin/Globulin Ratio 1.24 Alkaline Phosphatase 135 H Anion Gap 14 Anisocytosis 1+ Aspartate Amino Transf (AST/SGOT) 111 H Basophils # 0.0 Basophils % 0.2 Blood Morphology Comment Blood Urea Nitrogen 5 L Calcium Level 8.8 Carbon Dioxide Level 28 Chloride Level 100 Creatinine 0.37 L Direct Bilirubin 0.00 Eosinophils # 0.0 Eosinophils % 0.1 Globulin 2.50 Glucose Level 102 Hematocrit 27.0 L Hemoglobin 9.4 L Indirect Bilirubin 0.4 Lactate Dehydrogenase 835 H Lymphocytes # 0.3 L Lymphocytes % 11.0 L Mean Corpuscular Hemoglobin 29.5 Mean Corpuscular Hemoglobin Concent 34.7 Mean Corpuscular Volume 84.8 Mean Platelet Volume 8.5 Monocytes # 0.1 L Monocytes % 2.3 Neutrophils # 2.2 Neutrophils % 86.4 H Nucleated Red Blood Cells # 0.0 Nucleated Red Blood Cells % 0.0 Platelet Count 67 L Platelet Estimate PLT APPEAR DECREASED Potassium Level 4.1 Red Blood Count 3.19 L Red Cell Distribution Width 15.6 H Sodium Level 138 Total Bilirubin 0.4 Total Protein 5.6 L Uric Acid 0.8 L White Blood Count 2.5 #L Medications Medications Current Medications Acyclovir (Zovirax) 400 mg BID PO Last administered on 06/21/16 09:57; Admin Dose 400 MG; Start 06/02/16 at 14:30 Diphenhydramine HCl (Benadryl) 25 mg Q4H PRN IV ALLERGIC REACTION Last administered on 06/06/16 20:26; Admin Dose 25 MG; Start 06/02/16 at 18:30 Dexamethasone (Decadron) 10 mg Q4H PRN IV ALLERGIC REACTION; Start 06/02/16 at 18:30 Fluconazole 100 mg 100 mg DAILY PO Last administered on 06/08/16at 09:58; Admin Dose 100 MG; Start 06/03/16 at 09:00; Status Future Hold Ondansetron HCl/ Sodium Chloride (Zofran Inj/NS) 54 ml @ 216 mls/hr Q6H PRN IV NAUSEA AND/OR VOMITING; Start 06/02/16 at 18:30 Ondansetron HCl (Zofran Inj) 4 mg Q6H PRN IV NAUSEA AND/OR VOMITING Last administered on 06/20/16at 22:33; Admin Dose 4 MG; Start 06/03/16 at 17:00 Acetaminophen (Tylenol Tab) 650 mg Q6H PRN PO PAIN LEVEL 1-3 OR FEVER Last administered on 06/11/16at 21:50; Admin Dose 650 MG; Start 06/03/16 at 17:00 Acetaminophen (Tylenol Supp) 650 mg Q6H PRN [place] PAIN LEVEL 1-3 OR FEVER Last administered on 06/09/16at 03:37; Admin Dose 650 MG; Start 06/03/16 at 17:00 Docusate Sodium (Colace) 100 mg Q12H PRN PO CONSTIPATION Last administered on 06/20/16 22:25; Admin Dose 100 MG; Start 06/03/16 at 17:00 Magnesium Hydroxide (Milk Of Mag) 30 ml DAILY PRN PO CONSTIPATION Last administered on 06/20/16 06:13; Admin Dose 30 ML; Start 06/03/16 at 17:00 Bisacodyl (Dulcolax) 5 mg DAILY PRN PO CONSTIPATION; Start 06/03/16 at 17:00 Bisacodyl (Dulcolax Supp) 10 mg DAILY PRN [place] CONSTIPATION Last administered on 06/21/16 05:18; Admin Dose 10 MG; Start 06/03/16 at 17:00 Sodium Biphosphate/ Sodium Phosphate (Fleet Enema) 133 ml DAILY PRN [place] CONSTIPATION; Start 06/03/16 at 17:00 Enoxaparin Sodium (Lovenox) 30 mg DAILY SC Last administered on 06/12/16 08: 27; Admin Dose 30 MG; Start 06/04/16 at 09:00; Status Future Hold Allopurinol (Zyloprim) 300 mg DAILY PO Last administered on 06/21/16 09:57; Admin Dose 300 MG; Start 06/04/16 at 09:00 Eye Lubricant (Artificial Tears Oph) 2 drop QID BOTH EYES Last administered on 06/21/16 13:36; Admin Dose 2 DROP; Start 06/03/16 at 21:00 Eye Lubricant (Akwa Oint) 1 applic DAILY BOTH EYES Last administered on 09:58; Admin Dose 1 APPLIC; Start 06/04/16 at 09:00 Gabapentin (Neurontin) 200 mg TID PO Last administered on 06/21/16 13:34; Admin Dose 200 MG; Start 06/03/16 at 21:00 Levothyroxine Sodium (Synthroid) 100 mcg DAILY@06 PO Last administered on 06/21 09:57; Admin Dose 100 MCG; Start 06/04/16 at 06:00 Mupirocin (Bactroban) 1 applic BID TOP Last administered on 06/21/16 09:59; Admin Dose 1 APPLIC; Start 06/04/16 at 21:00 Pantoprazole (Protonix Iv) 40 mg DAILY@06 IV Last administered on 06/21/16 05 :18; Admin Dose 40 MG; Start 06/09/16 at 06:00 Lorazepam 1 mg 1 mg Q6H PRN IV AGITATION/ANXIETY Last administered on 16:12; Admin Dose 1 MG; Start 06/08/16 at 18:00 Fluconazole (Diflucan 200 Mg/ NS (Pmx)) 100 ml @ 100 mls/hr Q24H IVPB Last administered on 06/21/16 04:51; Admin Dose 100 MLS/HR; Start 06/09/16 at 05: 30 Acetaminophen/ Hydrocodone Bitart ([place] (5/325)) 1 tab Q6H PRN PO PAIN Last administered on 06/11/16 17:38; Admin Dose 1 TAB; Start 06/11/16 at 17:30 Collagenase (Santyl) 1 applic DAILY TOP Last administered on 06/21/16at 10:00; Admin Dose 1 APPLIC; Start 06/12/16 at 09:00 Trimethoprim/ Sulfamethoxazole (Bactrim (Ds)) 1 tab BID PO Last administered on 06/21/16 09:57; Admin Dose 1 TAB; Start 06/13/16 at 21:00 Nystatin 5 ml 5 ml QID PO Last administered on 06/21/16 13:34; Admin Dose 5 ML; Start 06/18/16 at 17:00 Filgrastim 300 mcg/Dextrose 51 ml @ 50 mls/hr DAILY@17 IVPB Last administered on 06/20/16 16:48; Admin Dose 50 MLS/HR; Start 06/18/16 at 17:00; Stop at 17:00 Dextrose/Sodium Chloride (D5-NS) 1,000 ml @ 125 mls/hr Q8H IV Last administered on 06/21/16 08:51; Admin Dose 125 MLS/HR; Start 06/20/16 at 20: 00 GUERLINE SULLIVAN MD Jun 21, 2016 15:04
[2016-06-21 15:50] VITALS: BP 132/68; PULSE 106; RESP 18
--- NOTE | 2016-06-21 16:00 | CONS ---
Date/Time of Note Date/Time of Note DATE: 06/21/16 TIME: 16:00 Assessment/Plan Assessment/Plan Chief Complaint/Hosp Course ID PROGRESS NOTE 24H INTERVAL SUMMARY * A/A/O -> no fevers, lethargic * MICROBIOLOGY: Blood cultures from 06/08/2016 grew coagulase-negative staph species. Repeat blood cultures negative. Nares swab/sputum cx positive for MRSA. * INDWELLINGS: Trach and left upper extremity PICC line. * Liver AARON: IMPRESSION:1. Cholelithiasis with 3 cm calcified gallstone within the neck of gallbladder versus liver calcification adjacent to the neck of gallbladder. Visualization is limited due to posterior shadowing.2. Otherwise unremarkable right upper quadrant ultrasound. ANTIMICROBIALS: 1. PO Bactrim 2. Topical Bactroban to nares. 3. Fluconazole. 4. Acyclovir. PHYSICAL EXAMINATION: GENERAL: 56 yo F, trach present, VSS, NAD HEENT: Unremarkable NECK: Maurer(+)Trach present LUNGS: Chest rise symmetrical, without dyspnea on observation ABDOMEN: Soft EXTREMITIES: Warm ID ASSESSMENT: 56 yo F Dx Stage IIA Burkitt's lymphoma, getting chemotherapy w/next cycle to start Thursday 2 admit with: 1. S/p sepsis with high fevers likely secondary to neutropenia. 2. Coagulase-negative Staphylococcus bacteremia cw contaminant. 3. Respiratory failure, status post tracheostomy secondary to a neck mass causing tracheal compression and airway compromise, remains on trach collar. 4. Possible aspiration pneumonia=> sputum cx + MRSA. 5 Leukocytosis=> s/p Neupogen 6. Oral thrush=> oral Nystatin 7. (+)HCV w/Transaminitis * ABNORMAL LIVER US: Cholelithiasis with 3 cm calcified gallstone within the neck of gallbladder versus liver calcification adjacent to the neck of gallbladder 8. Situational anxiety related to acute medical Dx and trach -> Stable (+)MRSA Nares Screen->Bactroban CURRENT ABX: PO Bactrim, Diflucan, Acyclovir ID RECOMMENDATIONS/PLAN: Continue current ABX Per notes: Dr. Levi called on ABD Liver US . Problems: Consultation Date/Type/Reason Admit Date/Time Jun 02, 2016 at 15:10 Initial Consult Date 06/02/16 Type of Consultation: ID Referring Provider: TELLY SOLANO MD Exam/Review of Systems Vital Signs Vitals Vital Signs Date Time Temp Pulse Resp B/P Pulse Ox O2 Delivery O2 Flow Rate FiO2 06/21/16 15:50 98.2 106 18 132/68 98 Mask 5.0 06/21/16 12:29 28 Intake and Output 06/20/16 06/20/16 06/21/16 15:00 23:00 07:00 Intake Total 50 ml 1951 ml 1800 ml Output Total 900 ml Balance 50 ml 1951 ml 900 ml Results Result Diagram: 06/21/16 0436 06/21/16 0436 Results 24 hrs Laboratory Tests Test 06/21/16 04:36 Alanine Aminotransferase (ALT/SGPT) 148 H Albumin 3.1 L Albumin/Globulin Ratio 1.24 Alkaline Phosphatase 135 H Anion Gap 14 Anisocytosis 1+ Aspartate Amino Transf (AST/SGOT) 111 H Basophils # 0.0 Basophils % 0.2 Blood Morphology Comment Blood Urea Nitrogen 5 L Calcium Level 8.8 Carbon Dioxide Level 28 Chloride Level 100 Creatinine 0.37 L Direct Bilirubin 0.00 Eosinophils # 0.0 Eosinophils % 0.1 Globulin 2.50 Glucose Level 102 Hematocrit 27.0 L Hemoglobin 9.4 L Indirect Bilirubin 0.4 Lactate Dehydrogenase 835 H Lymphocytes # 0.3 L Lymphocytes % 11.0 L Mean Corpuscular Hemoglobin 29.5 Mean Corpuscular Hemoglobin Concent 34.7 Mean Corpuscular Volume 84.8 Mean Platelet Volume 8.5 Monocytes # 0.1 L Monocytes % 2.3 Neutrophils # 2.2 Neutrophils % 86.4 H Nucleated Red Blood Cells # 0.0 Nucleated Red Blood Cells % 0.0 Platelet Count 67 L Platelet Estimate PLT APPEAR DECREASED Potassium Level 4.1 Red Blood Count 3.19 L Red Cell Distribution Width 15.6 H Sodium Level 138 Total Bilirubin 0.4 Total Protein 5.6 L Uric Acid 0.8 L White Blood Count 2.5 #L Medications Medications Current Medications Acyclovir (Zovirax) 400 mg BID PO Last administered on 06/21/16at 09:57; Admin Dose 400 MG; Start 06/02/16 at 14:30 Diphenhydramine HCl (Benadryl) 25 mg Q4H PRN IV ALLERGIC REACTION Last administered on 06/06/16at 20:26; Admin Dose 25 MG; Start 06/02/16 at 18:30 Dexamethasone (Decadron) 10 mg Q4H PRN IV ALLERGIC REACTION; Start 06/02/16 at 18:30 Fluconazole 100 mg 100 mg DAILY PO Last administered on 06/08/16at 09:58; Admin Dose 100 MG; Start 06/03/16 at 09:00; Status Future Hold Ondansetron HCl/ Sodium Chloride (Zofran Inj/NS) 54 ml @ 216 mls/hr Q6H PRN IV NAUSEA AND/OR VOMITING; Start 06/02/16 at 18:30 Ondansetron HCl (Zofran Inj) 4 mg Q6H PRN IV NAUSEA AND/OR VOMITING Last administered on 06/20/16at 22:33; Admin Dose 4 MG; Start 06/03/16 at 17:00 Acetaminophen (Tylenol Tab) 650 mg Q6H PRN PO PAIN LEVEL 1-3 OR FEVER Last administered on 06/11/16at 21:50; Admin Dose 650 MG; Start 06/03/16 at 17:00 Acetaminophen (Tylenol Supp) 650 mg Q6H PRN [place] PAIN LEVEL 1-3 OR FEVER Last administered on 06/09/16at 03:37; Admin Dose 650 MG; Start 06/03/16 at 17:00 Docusate Sodium (Colace) 100 mg Q12H PRN PO CONSTIPATION Last administered on 06/20/16at 22:25; Admin Dose 100 MG; Start 06/03/16 at 17:00 Magnesium Hydroxide (Milk Of Mag) 30 ml DAILY PRN PO CONSTIPATION Last administered on 06/20/16at 06:13; Admin Dose 30 ML; Start 06/03/16 at 17:00 Bisacodyl (Dulcolax) 5 mg DAILY PRN PO CONSTIPATION; Start 06/03/16 at 17:00 Bisacodyl (Dulcolax Supp) 10 mg DAILY PRN [place] CONSTIPATION Last administered on 06/21/16at 05:18; Admin Dose 10 MG; Start 06/03/16 at 17:00 Sodium Biphosphate/ Sodium Phosphate (Fleet Enema) 133 ml DAILY PRN [place] CONSTIPATION; Start 06/03/16 at 17:00 Enoxaparin Sodium (Lovenox) 30 mg DAILY SC Last administered on 06/12/16at 08: 27; Admin Dose 30 MG; Start 06/04/16 at 09:00; Status Future Hold Allopurinol (Zyloprim) 300 mg DAILY PO Last administered on 06/21/16 09:57; Admin Dose 300 MG; Start 06/04/16 at 09:00 Eye Lubricant (Artificial Tears Oph) 2 drop QID BOTH EYES Last administered on 06/21/16 13:36; Admin Dose 2 DROP; Start 06/03/16 at 21:00 Eye Lubricant (Akwa Oint) 1 applic DAILY BOTH EYES Last administered on 09:58; Admin Dose 1 APPLIC; Start 06/04/16 at 09:00 Gabapentin (Neurontin) 200 mg TID PO Last administered on 06/21/16 13:34; Admin Dose 200 MG; Start 06/03/16 at 21:00 Levothyroxine Sodium (Synthroid) 100 mcg DAILY@06 PO Last administered on 06/21 09:57; Admin Dose 100 MCG; Start 06/04/16 at 06:00 Mupirocin (Bactroban) 1 applic BID TOP Last administered on 06/21/16 09:59; Admin Dose 1 APPLIC; Start 06/04/16 at 21:00 Pantoprazole (Protonix Iv) 40 mg DAILY@06 IV Last administered on 06/21/16 05 :18; Admin Dose 40 MG; Start 06/09/16 at 06:00 Lorazepam 1 mg 1 mg Q6H PRN IV AGITATION/ANXIETY Last administered on 16:12; Admin Dose 1 MG; Start 06/08/16 at 18:00 Fluconazole (Diflucan 200 Mg/ NS (Pmx)) 100 ml @ 100 mls/hr Q24H IVPB Last administered on 06/21/16 04:51; Admin Dose 100 MLS/HR; Start 06/09/16 at 05: 30 Acetaminophen/ Hydrocodone Bitart ([place] (5/325)) 1 tab Q6H PRN PO PAIN Last administered on 06/11/16 17:38; Admin Dose 1 TAB; Start 06/11/16 at 17:30 Collagenase (Santyl) 1 applic DAILY TOP Last administered on 06/21/16 10:00; Admin Dose 1 APPLIC; Start 06/12/16 at 09:00 Trimethoprim/ Sulfamethoxazole (Bactrim (Ds)) 1 tab BID PO Last administered on 06/21/16 09:57; Admin Dose 1 TAB; Start 06/13/16 at 21:00 Nystatin 5 ml 5 ml QID PO Last administered on 06/21/16at 13:34; Admin Dose 5 ML; Start 06/18/16 at 17:00 Filgrastim 300 mcg/Dextrose 51 ml @ 50 mls/hr DAILY@17 IVPB Last administered on 06/20/16at 16:48; Admin Dose 50 MLS/HR; Start 06/18/16 at 17:00; Stop at 17:00 Dextrose/Sodium Chloride (D5-NS) 1,000 ml @ 125 mls/hr Q8H IV Last administered on 06/21/16at 15:47; Admin Dose 125 MLS/HR; Start 06/20/16 at 20: 00 BRENT AUSTIN NP Jun 21, 2016 16:00
[2016-06-21] MEDS: FILGRASTIM 300 MCG in DEXTROSE 5% 50 ML IVPB SCH (17:00)
[2016-06-21 21:15] VITALS: BP 99/63; PULSE 109; RESP 18
[2016-06-21] MEDS: ONDANSETRON INJ 8 MG in SOD CHLORIDE 0.9% 50 ML IV PRN (21:18)
[2016-06-22] MEDS: ALBUTEROL/IPRATROPIUM (NEB) 3 ML AMP HHN SCH ×6 (00:56→21:46)
[2016-06-22] MEDS: FLUCONAZOLE 200 MG/NS (PMX) 100 ML IVPB SCH (04:44)
[2016-06-22] MEDS: DEXTROSE 5%-0.9% NACL 1,000 ML IV SCH ×3 (04:45→19:01)
[2016-06-22 05:44] LABS: ALBUMIN 2.9 g/dl (3.3-4.9)
[2016-06-22 05:47] LABS: ALBUMIN/GLOBULIN RATIO 1.16; BILIRUBIN,INDIRECT 0.3 mg/dl (0-1.1); BILIRUBIN,TOTAL 0.3 mg/dl (0.2-1.3); CREATININE 0.36 mg/dl (0.44-1.00); TOTAL PROTEIN 5.4 g/dl (6.1-8.1)
[2016-06-22 05:48] LABS: CALCIUM 8.6 mg/dl (8.4-10.2)
[2016-06-22] MEDS: PANTOPRAZOLE 40 MG INJ IV SCH (06:09)
[2016-06-22] MEDS: LEVOTHYROXINE 100 MCG TAB PO SCH (06:38)
[2016-06-22 06:39] LABS: HEMATOCRIT 27.1 % (37.0-47.0); HEMOGLOBIN 9.3 g/dl (12.0-16.0); MEAN CORPUSCULAR HGB CONC 34.3 g/dl (32.0-37.0); MEAN CORPUSCULAR VOLUME 84.6 fl (82.0-101.0); MEAN PLATELET VOLUME 8.3 fl (7.4-10.4); PLATELET COUNT 51 10^3/UL (140-440); RED BLOOD COUNT 3.21 10^6/ul (4.20-5.40); RED CELL DISTRIBUTION WIDTH 15.9 % (11.5-14.5); UNCORRECTED WBC 2.3 10^3/ul (4.8-10.8); WHITE BLOOD COUNT 2.3 10^3/ul (4.8-10.8)
[2016-06-22 07:02] LABS: CONDITION 1; LH ANALYZER COMMENTS 1; SUSPECT 1
[2016-06-22 08:56] VITALS: BP 119/72; RESP 18
[2016-06-22] MEDS: NYSTATIN SUSP 5 ML CUP PO SCH ×4 (09:18→20:27)
[2016-06-22] MEDS: ALLOPURINOL 300 MG TAB PO SCH (09:19)
[2016-06-22] MEDS: TRIMETHOPRIM/SULFAMETHOX (DS) TAB PO SCH ×2 (09:19→20:28)
[2016-06-22] MEDS: ACYCLOVIR 400 MG TAB PO SCH ×2 (09:19→20:45)
[2016-06-22] MEDS: GABAPENTIN 100 MG CAP PO SCH ×3 (09:19→20:28)
[2016-06-22] MEDS: COLLAGENASE 30 GM TUBE TOP SCH (09:20)
[2016-06-22] MEDS: OCULAR LUBRICANT 3.5 GM OPH OINT BOTH EYES SCH (09:20)
[2016-06-22] MEDS: MUPIROCIN 2% 22 GM OINT TOP SCH ×2 (09:20→20:45)
[2016-06-22] MEDS: ARTIFICIAL TEARS 15 ML OPH BOTH EYES SCH ×4 (09:20→20:29)
[2016-06-22] MEDS: ONDANSETRON 4 MG INJ IV PRN (09:49)
[2016-06-22 10:30] LABS: ANISOCYTOSIS 1+; HYPOCHROMASIA 1+; LYMPHOCYTES # 0.3 10^3/ul (0.8-2.9); MONOCYTE # 0.1 10^3/ul (0.3-0.9); NEUTROPHIL # 1.8 10^3/ul (1.6-7.5); PLATELET ESTIMATE PLT APPEAR DECREASED
--- NOTE | 2016-06-22 15:32 | PN ---
Date/Time of Note Date/Time of Note DATE: 06/22/16 TIME: 15:31 Assessment/Plan VTE Prophylaxis VTE Prophylaxis Intervention: other Lines/Catheters IV Catheter Type (from Nrs): PICC Line Central line still needed: Yes Urinary Cath still in place: No Assessment/Plan Chief Complaint/Hosp Course IMPRESSION: The patient has Burkitt's lymphoma status post tracheostomy, status post thyroid mass, status post pancytopenia, abnormal liver function test. The patient has PANCYTOPENIA, ON CHEMO SEPSIS gallstone ABN LFT PLAN PER DR MERLOS per id IV FLUID ck labs CHEMO dr wylie to see called Problems: Subjective 24 Hr Interval Summary Gastrointestinal: decreased appetite (+), pain (+), No diarrhea Exam/Review of Systems Vital Signs Vitals Vital Signs Date Time Temp Pulse Resp B/P Pulse Ox O2 Delivery O2 Flow Rate FiO2 06/22/16 13:51 118 22 97 Nasal Cannula 2.0 06/22/16 09:15 28 06/22/16 08:56 98.9 119/72 Intake and Output 06/21/16 06/21/16 06/22/16 15:00 23:00 07:00 Intake Total 250 ml 1801 ml 1650 ml Output Total 3 ml 900 ml Balance 250 ml 1798 ml 750 ml Exam Respiratory: clear to auscultation Cardiovascular: regular rate and rhythm Gastrointestinal: soft Musculoskeletal: nl extremities to inspection Extremities: normal pulses Results Result Diagram: 06/22/16 0429 06/22/16 0429 Results 24 hrs Laboratory Tests Test 06/22/16 04:29 Alanine Aminotransferase (ALT/SGPT) 130 H Albumin 2.9 L Albumin/Globulin Ratio 1.16 Alkaline Phosphatase 121 Anion Gap 14 Anisocytosis 1+ Aspartate Amino Transf (AST/SGOT) 77 H Band Neutrophils % 4.0 Blood Morphology Comment Blood Urea Nitrogen 2 L Calcium Level 8.6 Carbon Dioxide Level 25 Chloride Level 102 Creatinine 0.36 L Differential Comment MANUAL DIFF Direct Bilirubin 0.00 Globulin 2.50 Glucose Level 107 Hematocrit 27.1 L Hemoglobin 9.3 L Hypochromasia 1+ Indirect Bilirubin 0.3 Lactate Dehydrogenase 708 H Lymphocytes # 0.3 L Lymphocytes % 12.0 L Mean Corpuscular Hemoglobin 29.0 Mean Corpuscular Hemoglobin Concent 34.3 Mean Corpuscular Volume 84.6 Mean Platelet Volume 8.3 Monocytes # 0.1 L Monocytes % 5.0 Neutrophils # 1.8 Neutrophils % 79.0 H Platelet Count 51 #L Platelet Estimate PLT APPEAR DECREASED Potassium Level 4.0 Red Blood Count 3.21 L Red Cell Distribution Width 15.9 H Sodium Level 137 Total Bilirubin 0.3 Total Protein 5.4 L Uric Acid 1.0 L White Blood Count 2.3 L Medications Medications Current Medications Acyclovir (Zovirax) 400 mg BID PO Last administered on 06/22/16 09:19; Admin Dose 400 MG; Start 06/02/16 at 14:30 Diphenhydramine HCl (Benadryl) 25 mg Q4H PRN IV ALLERGIC REACTION Last administered on 06/06/16 20:26; Admin Dose 25 MG; Start 06/02/16 at 18:30 Dexamethasone (Decadron) 10 mg Q4H PRN IV ALLERGIC REACTION; Start 06/02/16 at 18:30 Fluconazole 100 mg 100 mg DAILY PO Last administered on 06/08/16 09:58; Admin Dose 100 MG; Start 06/03/16 at 09:00; Status Future Hold Ondansetron HCl/ Sodium Chloride (Zofran Inj/NS) 54 ml @ 216 mls/hr Q6H PRN IV NAUSEA AND/OR VOMITING Last administered on 06/21/16 21:18; Admin Dose 216 MLS/HR; Start 06/02/16 at 18:30 Ondansetron HCl (Zofran Inj) 4 mg Q6H PRN IV NAUSEA AND/OR VOMITING Last administered on 06/22/16 09:49; Admin Dose 4 MG; Start 06/03/16 at 17:00 Acetaminophen (Tylenol Tab) 650 mg Q6H PRN PO PAIN LEVEL 1-3 OR FEVER Last administered on 06/11/16 21:50; Admin Dose 650 MG; Start 06/03/16 at 17:00 Acetaminophen (Tylenol Supp) 650 mg Q6H PRN [place] PAIN LEVEL 1-3 OR FEVER Last administered on 06/09/16 03:37; Admin Dose 650 MG; Start 06/03/16 at 17:00 Docusate Sodium (Colace) 100 mg Q12H PRN PO CONSTIPATION Last administered on 06/20/16 22:25; Admin Dose 100 MG; Start 06/03/16 at 17:00 Magnesium Hydroxide (Milk Of Mag) 30 ml DAILY PRN PO CONSTIPATION Last administered on 06/20/16at 06:13; Admin Dose 30 ML; Start 06/03/16 at 17:00 Bisacodyl (Dulcolax) 5 mg DAILY PRN PO CONSTIPATION; Start 06/03/16 at 17:00 Bisacodyl (Dulcolax Supp) 10 mg DAILY PRN [place] CONSTIPATION Last administered on 06/21/16at 05:18; Admin Dose 10 MG; Start 06/03/16 at 17:00 Sodium Biphosphate/ Sodium Phosphate (Fleet Enema) 133 ml DAILY PRN [place] CONSTIPATION; Start 06/03/16 at 17:00 Enoxaparin Sodium (Lovenox) 30 mg DAILY SC Last administered on 06/12/16at 08: 27; Admin Dose 30 MG; Start 06/04/16 at 09:00; Status Future Hold Allopurinol (Zyloprim) 300 mg DAILY PO Last administered on 06/22/16 09:19; Admin Dose 300 MG; Start 06/04/16 at 09:00 Eye Lubricant (Artificial Tears Oph) 2 drop QID BOTH EYES Last administered on 06/22/16 13:10; Admin Dose 2 DROP; Start 06/03/16 at 21:00 Eye Lubricant (Akwa Oint) 1 applic DAILY BOTH EYES Last administered on 09:20; Admin Dose 1 APPLIC; Start 06/04/16 at 09:00 Gabapentin (Neurontin) 200 mg TID PO Last administered on 06/22/16 13:09; Admin Dose 200 MG; Start 06/03/16 at 21:00 Levothyroxine Sodium (Synthroid) 100 mcg DAILY@06 PO Last administered on 06:38; Admin Dose 100 MCG; Start 06/04/16 at 06:00 Mupirocin (Bactroban) 1 applic BID TOP Last administered on 06/22/16 09:20; Admin Dose 1 APPLIC; Start 06/04/16 at 21:00 Pantoprazole (Protonix Iv) 40 mg DAILY@06 IV Last administered on 06/22/16 06: 09; Admin Dose 40 MG; Start 06/09/16 at 06:00 Lorazepam 1 mg 1 mg Q6H PRN IV AGITATION/ANXIETY Last administered on at 16:12; Admin Dose 1 MG; Start 06/08/16 at 18:00 Fluconazole (Diflucan 200 Mg/ NS (Pmx)) 100 ml @ 100 mls/hr Q24H IVPB Last administered on 06/22/16 04:44; Admin Dose 100 MLS/HR; Start 06/09/16 at 05:30 Acetaminophen/ Hydrocodone Bitart ([place] (5/325)) 1 tab Q6H PRN PO PAIN Last administered on 06/11/16at 17:38; Admin Dose 1 TAB; Start 06/11/16 at 17:30 Collagenase (Santyl) 1 applic DAILY TOP Last administered on 06/22/16 09:20; Admin Dose 1 APPLIC; Start 06/12/16 at 09:00 Trimethoprim/ Sulfamethoxazole (Bactrim (Ds)) 1 tab BID PO Last administered on 06/22/16 09:19; Admin Dose 1 TAB; Start 06/13/16 at 21:00 Nystatin 5 ml 5 ml QID PO Last administered on 06/22/16 13:09; Admin Dose 5 ML ; Start 06/18/16 at 17:00 Filgrastim 300 mcg/Dextrose 51 ml @ 50 mls/hr DAILY@17 IVPB Last administered on 06/21/16at 17:00; Admin Dose 50 MLS/HR; Start 06/18/16 at 17:00; Stop at 17:00 Dextrose/Sodium Chloride (D5-NS) 1,000 ml @ 125 mls/hr Q8H IV Last administered on 06/22/16 13:10; Admin Dose 125 MLS/HR; Start 06/20/16 at 20:00 GUERLINE SULLIVAN MD Jun 22, 2016 15:32
--- NOTE | 2016-06-22 15:48 | CONS ---
Date/Time of Note Date/Time of Note DATE: 06/22/16 TIME: 15:47 Assessment/Plan Assessment/Plan Chief Complaint/Hosp Course ID PROGRESS NOTE 24H INTERVAL SUMMARY * Pt is stable, currently "resting time" on the 4th floor, she is napping and not disturbed. VSS, NAD no fever * MICROBIOLOGY: Blood cultures from 06/08/2016 grew coagulase-negative staph species. Repeat blood cultures negative. Nares swab/sputum cx positive for MRSA. * INDWELLINGS: Trach and left upper extremity PICC line. * Liver AARON: IMPRESSION:1. Cholelithiasis with 3 cm calcified gallstone within the neck of gallbladder versus liver calcification adjacent to the neck of gallbladder. Visualization is limited due to posterior shadowing.2. Otherwise unremarkable right upper quadrant ultrasound. ANTIMICROBIALS: 1. PO Bactrim 2. Topical Bactroban to nares. 3. Fluconazole. 4. Acyclovir. PHYSICAL EXAMINATION: GENERAL: 56 yo F, trach present, VSS, NAD HEENT: Unremarkable NECK: Maurer(+)Trach present LUNGS: Chest rise symmetrical, without dyspnea on observation ABDOMEN: Soft EXTREMITIES: Warm ID ASSESSMENT: 56 yo F Dx Stage IIA Burkitt's lymphoma, getting chemotherapy w/next cycle to start ThursdayJun 23 admit with: 1. S/p sepsis with high fevers likely secondary to neutropenia. 2. Coagulase-negative Staphylococcus bacteremia cw contaminant. 3. Respiratory failure, status post tracheostomy secondary to a neck mass causing tracheal compression and airway compromise, remains on trach collar. 4. Possible aspiration pneumonia=> sputum cx + MRSA. 5 Leukocytosis=> s/p Neupogen 6. Oral thrush=> oral Nystatin 7. (+)HCV w/Transaminitis * ABNORMAL LIVER US: Cholelithiasis with 3 cm calcified gallstone within the neck of gallbladder versus liver calcification adjacent to the neck of gallbladder 8. Situational anxiety related to acute medical Dx and trach -> Stable (+)MRSA Nares Screen->Bactroban CURRENT ABX: PO Bactrim, Diflucan, Acyclovir ID RECOMMENDATIONS/PLAN: Continue current ABX Per notes: Dr. Levi called on ABD Liver US . Problems: Consultation Date/Type/Reason Admit Date/Time Jun 02, 2016 at 15:10 Initial Consult Date 06/02/16 Type of Consultation: ID Referring Provider: TELLY SOLANO MD Exam/Review of Systems Vital Signs Vitals Vital Signs Date Time Temp Pulse Resp B/P Pulse Ox O2 Delivery O2 Flow Rate FiO2 06/22/16 13:51 118 22 97 Nasal Cannula 2.0 06/22/16 09:15 28 06/22/16 08:56 98.9 119/72 Intake and Output 06/21/16 06/21/16 06/22/16 15:00 23:00 07:00 Intake Total 250 ml 1801 ml 1650 ml Output Total 3 ml 900 ml Balance 250 ml 1798 ml 750 ml Results Result Diagram: 06/22/16 0429 06/22/16 0429 Results 24 hrs Laboratory Tests Test 06/22/16 04:29 Alanine Aminotransferase (ALT/SGPT) 130 H Albumin 2.9 L Albumin/Globulin Ratio 1.16 Alkaline Phosphatase 121 Anion Gap 14 Anisocytosis 1+ Aspartate Amino Transf (AST/SGOT) 77 H Band Neutrophils % 4.0 Blood Morphology Comment Blood Urea Nitrogen 2 L Calcium Level 8.6 Carbon Dioxide Level 25 Chloride Level 102 Creatinine 0.36 L Differential Comment MANUAL DIFF Direct Bilirubin 0.00 Globulin 2.50 Glucose Level 107 Hematocrit 27.1 L Hemoglobin 9.3 L Hypochromasia 1+ Indirect Bilirubin 0.3 Lactate Dehydrogenase 708 H Lymphocytes # 0.3 L Lymphocytes % 12.0 L Mean Corpuscular Hemoglobin 29.0 Mean Corpuscular Hemoglobin Concent 34.3 Mean Corpuscular Volume 84.6 Mean Platelet Volume 8.3 Monocytes # 0.1 L Monocytes % 5.0 Neutrophils # 1.8 Neutrophils % 79.0 H Platelet Count 51 #L Platelet Estimate PLT APPEAR DECREASED Potassium Level 4.0 Red Blood Count 3.21 L Red Cell Distribution Width 15.9 H Sodium Level 137 Total Bilirubin 0.3 Total Protein 5.4 L Uric Acid 1.0 L White Blood Count 2.3 L Medications Medications Current Medications Acyclovir (Zovirax) 400 mg BID PO Last administered on 06/22/16t 09:19; Admin Dose 400 MG; Start 06/02/16 at 14:30 Diphenhydramine HCl (Benadryl) 25 mg Q4H PRN IV ALLERGIC REACTION Last administered on 06/06/16at 20:26; Admin Dose 25 MG; Start 06/02/16 at 18:30 Dexamethasone (Decadron) 10 mg Q4H PRN IV ALLERGIC REACTION; Start 06/02/16 at 18:30 Fluconazole 100 mg 100 mg DAILY PO Last administered on 06/08/16at 09:58; Admin Dose 100 MG; Start 06/03/16 at 09:00; Status Future Hold Ondansetron HCl/ Sodium Chloride (Zofran Inj/NS) 54 ml @ 216 mls/hr Q6H PRN IV NAUSEA AND/OR VOMITING Last administered on 06/21/16at 21:18; Admin Dose 216 MLS/HR; Start 06/02/16 at 18:30 Ondansetron HCl (Zofran Inj) 4 mg Q6H PRN IV NAUSEA AND/OR VOMITING Last administered on 06/22/16t 09:49; Admin Dose 4 MG; Start 06/03/16 at 17:00 Acetaminophen (Tylenol Tab) 650 mg Q6H PRN PO PAIN LEVEL 1-3 OR FEVER Last administered on 06/11/16at 21:50; Admin Dose 650 MG; Start 06/03/16 at 17:00 Acetaminophen (Tylenol Supp) 650 mg Q6H PRN [place] PAIN LEVEL 1-3 OR FEVER Last administered on 06/09/16at 03:37; Admin Dose 650 MG; Start 06/03/16 at 17:00 Docusate Sodium (Colace) 100 mg Q12H PRN PO CONSTIPATION Last administered on 06/20/16at 22:25; Admin Dose 100 MG; Start 06/03/16 at 17:00 Magnesium Hydroxide (Milk Of Mag) 30 ml DAILY PRN PO CONSTIPATION Last administered on 06/20/16at 06:13; Admin Dose 30 ML; Start 06/03/16 at 17:00 Bisacodyl (Dulcolax) 5 mg DAILY PRN PO CONSTIPATION; Start 06/03/16 at 17:00 Bisacodyl (Dulcolax Supp) 10 mg DAILY PRN [place] CONSTIPATION Last administered on 06/21/16at 05:18; Admin Dose 10 MG; Start 06/03/16 at 17:00 Sodium Biphosphate/ Sodium Phosphate (Fleet Enema) 133 ml DAILY PRN [place] CONSTIPATION; Start 06/03/16 at 17:00 Enoxaparin Sodium (Lovenox) 30 mg DAILY SC Last administered on 06/12/16at 08: 27; Admin Dose 30 MG; Start 06/04/16 at 09:00; Status Future Hold Allopurinol (Zyloprim) 300 mg DAILY PO Last administered on 06/22/16 09:19; Admin Dose 300 MG; Start 06/04/16 at 09:00 Eye Lubricant (Artificial Tears Oph) 2 drop QID BOTH EYES Last administered on 06/22/16 13:10; Admin Dose 2 DROP; Start 06/03/16 at 21:00 Eye Lubricant (Akwa Oint) 1 applic DAILY BOTH EYES Last administered on 09:20; Admin Dose 1 APPLIC; Start 06/04/16 at 09:00 Gabapentin (Neurontin) 200 mg TID PO Last administered on 06/22/16 13:09; Admin Dose 200 MG; Start 06/03/16 at 21:00 Levothyroxine Sodium (Synthroid) 100 mcg DAILY@06 PO Last administered on 06:38; Admin Dose 100 MCG; Start 06/04/16 at 06:00 Mupirocin (Bactroban) 1 applic BID TOP Last administered on 06/22/16 09:20; Admin Dose 1 APPLIC; Start 06/04/16 at 21:00 Pantoprazole (Protonix Iv) 40 mg DAILY@06 IV Last administered on 06/22/16 06: 09; Admin Dose 40 MG; Start 06/09/16 at 06:00 Lorazepam 1 mg 1 mg Q6H PRN IV AGITATION/ANXIETY Last administered on at 16:12; Admin Dose 1 MG; Start 06/08/16 at 18:00 Fluconazole (Diflucan 200 Mg/ NS (Pmx)) 100 ml @ 100 mls/hr Q24H IVPB Last administered on 06/22/16 04:44; Admin Dose 100 MLS/HR; Start 06/09/16 at 05:30 Acetaminophen/ Hydrocodone Bitart ([place] (5/325)) 1 tab Q6H PRN PO PAIN Last administered on 06/11/16at 17:38; Admin Dose 1 TAB; Start 06/11/16 at 17:30 Collagenase (Santyl) 1 applic DAILY TOP Last administered on 06/22/16 09:20; Admin Dose 1 APPLIC; Start 06/12/16 at 09:00 Trimethoprim/ Sulfamethoxazole (Bactrim (Ds)) 1 tab BID PO Last administered on 06/22/16 09:19; Admin Dose 1 TAB; Start 06/13/16 at 21:00 Nystatin 5 ml 5 ml QID PO Last administered on 06/22/16 13:09; Admin Dose 5 ML ; Start 06/18/16 at 17:00 Filgrastim 300 mcg/Dextrose 51 ml @ 50 mls/hr DAILY@17 IVPB Last administered on 06/21/16at 17:00; Admin Dose 50 MLS/HR; Start 06/18/16 at 17:00; Stop at 17:00 Dextrose/Sodium Chloride (D5-NS) 1,000 ml @ 125 mls/hr Q8H IV Last administered on 06/22/16 13:10; Admin Dose 125 MLS/HR; Start 06/20/16 at 20:00 BRENT AUSTIN NP Jun 22, 2016 15:48
--- NOTE | 2016-06-22 16:16 | CONS ---
Date/Time of Note Date/Time of Note DATE: 06/22/16 TIME: 16:04 Assessment/Plan Assessment/Plan Chief Complaint/Hosp Course Impression: 1. elevated transaminases: likley secondary to hepatotoxic medication. Need to r /o other causes eg reactivation of viral hepatitis due to immunosuppression, hypo or hyper thyroidism, autoimmune. Interestingly, her elevated transaminases correlates with Methotrexate which has hepatotoxicity. 2. Burkitt's lymphoma status post tracheostomy 3. status post thyroid mass: r/o hypo or hyper thyroidism as it can cause hepatotoxicity. 4. chemo induced pancytopenia 5. SEPSIS 6. gallstone: there is no elevated bilirubin and no biliary duct dilation. PLAN 1. elevated LFT likely due to methotrexate. Will ask pharmacy to generate list of hepatotoxic meds for me to review 2. check acute viral hepatitis panel 3. screening test with ELIAZAR and SMA to screening for autoimmune hepatitis 4. trend transaminases Problems: Consultation Date/Type/Reason Admit Date/Time Jun 02, 2016 at 15:10 Type of Consultation: GI Hx of Present Illness 56-year-old female with massive neck mass in the past causing tracheal compression, airway compromise, status post tracheostomy placement. The patient has Burkitt's lymphoma, getting chemotherapy by Dr. Thomas, admitted for chemotherapy. Currently has chemotherapy-induced pancytopenia. GI called to evaluate pt for abnormal LFT, mainly elevated transaminases. Abdominal u/s only showed gallstones. Pt do not recall any h/o liver disease or having viral hepatitis. Constitutional: poor po Eyes: no complaints ENT: no complaints Respiratory: no complaints Cardiovascular: no complaints Gastrointestinal: decreased appetite (+), pain (+), No diarrhea Genitourinary: no complaints Musculoskeletal: no complaints Skin: other (neck pain+) Neurologic: no complaints Psychological: nl mood/affect Past Medical History Burkitts lymphoma, encephalopathy, PNA Medical History: GERD Past Surgical History Past Surgical Hx: bowel resection, endoscopy Family History Significant Family History: no pertinent family hx Social History Alcohol Use: none Smoking Status: Never smoker Drug Use: none Exam/Review of Systems Vital Signs Vitals Vital Signs Date Time Temp Pulse Resp B/P Pulse Ox O2 Delivery O2 Flow Rate FiO2 06/22/16 13:51 118 22 97 Nasal Cannula 2.0 06/22/16 09:15 28 06/22/16 08:56 98.9 119/72 Intake and Output 06/21/16 06/21/16 06/22/16 15:00 23:00 07:00 Intake Total 250 ml 1801 ml 1650 ml Output Total 3 ml 900 ml Balance 250 ml 1798 ml 750 ml Exam Constitutional: alert, oriented, well developed Psych: nl mood/affect, no complaints Head: atraumatic, normocephalic Eyes: EOMI, nl conjunctiva, nl lids, nl sclera ENMT: mucosa pink and moist, nl external ears & nose, nl lips & teeth, nl nasal mucosa & septum Neck: non-tender, supple Respiratory: clear to auscultation Cardiovascular: nl pulses, regular rate and rhythm Gastrointestinal: bowel sounds, soft, tender (RLQ) Neurological: nl mental status, nl speech, nl strength Results Result Diagram: 06/22/1642806/22/16428 Results 24 hrs Laboratory Tests Test 06/22/16 04:29 Alanine Aminotransferase (ALT/SGPT) 130 H Albumin 2.9 L Albumin/Globulin Ratio 1.16 Alkaline Phosphatase 121 Anion Gap 14 Anisocytosis 1+ Aspartate Amino Transf (AST/SGOT) 77 H Band Neutrophils % 4.0 Blood Morphology Comment Blood Urea Nitrogen 2 L Calcium Level 8.6 Carbon Dioxide Level 25 Chloride Level 102 Creatinine 0.36 L Differential Comment MANUAL DIFF Direct Bilirubin 0.00 Globulin 2.50 Glucose Level 107 Hematocrit 27.1 L Hemoglobin 9.3 L Hypochromasia 1+ Indirect Bilirubin 0.3 Lactate Dehydrogenase 708 H Lymphocytes # 0.3 L Lymphocytes % 12.0 L Mean Corpuscular Hemoglobin 29.0 Mean Corpuscular Hemoglobin Concent 34.3 Mean Corpuscular Volume 84.6 Mean Platelet Volume 8.3 Monocytes # 0.1 L Monocytes % 5.0 Neutrophils # 1.8 Neutrophils % 79.0 H Platelet Count 51 #L Platelet Estimate PLT APPEAR DECREASED Potassium Level 4.0 Red Blood Count 3.21 L Red Cell Distribution Width 15.9 H Sodium Level 137 Total Bilirubin 0.3 Total Protein 5.4 L Uric Acid 1.0 L White Blood Count 2.3 L Medications Medications Current Medications Acyclovir (Zovirax) 400 mg BID PO Last administered on 06/22/16 09:19; Admin Dose 400 MG; Start 06/02/16 at 14:30 Diphenhydramine HCl (Benadryl) 25 mg Q4H PRN IV ALLERGIC REACTION Last administered on 06/06/16at 20:26; Admin Dose 25 MG; Start 06/02/16 at 18:30 Dexamethasone (Decadron) 10 mg Q4H PRN IV ALLERGIC REACTION; Start 06/02/16 at 18:30 Fluconazole 100 mg 100 mg DAILY PO Last administered on 06/08/16at 09:58; Admin Dose 100 MG; Start 06/03/16 at 09:00; Status Future Hold Ondansetron HCl/ Sodium Chloride (Zofran Inj/NS) 54 ml @ 216 mls/hr Q6H PRN IV NAUSEA AND/OR VOMITING Last administered on 06/21/16at 21:18; Admin Dose 216 MLS/HR; Start 06/02/16 at 18:30 Ondansetron HCl (Zofran Inj) 4 mg Q6H PRN IV NAUSEA AND/OR VOMITING Last administered on 06/22/16t 09:49; Admin Dose 4 MG; Start 06/03/16 at 17:00 Acetaminophen (Tylenol Tab) 650 mg Q6H PRN PO PAIN LEVEL 1-3 OR FEVER Last administered on 06/11/16at 21:50; Admin Dose 650 MG; Start 06/03/16 at 17:00 Acetaminophen (Tylenol Supp) 650 mg Q6H PRN [place] PAIN LEVEL 1-3 OR FEVER Last administered on 06/09/16at 03:37; Admin Dose 650 MG; Start 06/03/16 at 17:00 Docusate Sodium (Colace) 100 mg Q12H PRN PO CONSTIPATION Last administered on 06/20/16 22:25; Admin Dose 100 MG; Start 06/03/16 at 17:00 Magnesium Hydroxide (Milk Of Mag) 30 ml DAILY PRN PO CONSTIPATION Last administered on 06/20/16 06:13; Admin Dose 30 ML; Start 06/03/16 at 17:00 Bisacodyl (Dulcolax) 5 mg DAILY PRN PO CONSTIPATION; Start 06/03/16 at 17:00 Bisacodyl (Dulcolax Supp) 10 mg DAILY PRN [place] CONSTIPATION Last administered on 06/21/16 05:18; Admin Dose 10 MG; Start 06/03/16 at 17:00 Sodium Biphosphate/ Sodium Phosphate (Fleet Enema) 133 ml DAILY PRN [place] CONSTIPATION; Start 06/03/16 at 17:00 Enoxaparin Sodium (Lovenox) 30 mg DAILY SC Last administered on 06/12/16at 08: 27; Admin Dose 30 MG; Start 06/04/16 at 09:00; Status Future Hold Allopurinol (Zyloprim) 300 mg DAILY PO Last administered on 06/22/16 09:19; Admin Dose 300 MG; Start 06/04/16 at 09:00 Eye Lubricant (Artificial Tears Oph) 2 drop QID BOTH EYES Last administered on 06/22/16 13:10; Admin Dose 2 DROP; Start 06/03/16 at 21:00 Eye Lubricant (Akwa Oint) 1 applic DAILY BOTH EYES Last administered on 09:20; Admin Dose 1 APPLIC; Start 06/04/16 at 09:00 Gabapentin (Neurontin) 200 mg TID PO Last administered on 06/22/16 13:09; Admin Dose 200 MG; Start 06/03/16 at 21:00 Levothyroxine Sodium (Synthroid) 100 mcg DAILY@06 PO Last administered on 06:38; Admin Dose 100 MCG; Start 06/04/16 at 06:00 Mupirocin (Bactroban) 1 applic BID TOP Last administered on 06/22/16 09:20; Admin Dose 1 APPLIC; Start 06/04/16 at 21:00 Pantoprazole (Protonix Iv) 40 mg DAILY@06 IV Last administered on 06/22/16 06: 09; Admin Dose 40 MG; Start 06/09/16 at 06:00 Lorazepam 1 mg 1 mg Q6H PRN IV AGITATION/ANXIETY Last administered on at 16:12; Admin Dose 1 MG; Start 06/08/16 at 18:00 Fluconazole (Diflucan 200 Mg/ NS (Pmx)) 100 ml @ 100 mls/hr Q24H IVPB Last administered on 06/22/16 04:44; Admin Dose 100 MLS/HR; Start 06/09/16 at 05:30 Acetaminophen/ Hydrocodone Bitart ([place] (5/325)) 1 tab Q6H PRN PO PAIN Last administered on 06/11/16at 17:38; Admin Dose 1 TAB; Start 06/11/16 at 17:30 Collagenase (Santyl) 1 applic DAILY TOP Last administered on 06/22/16 09:20; Admin Dose 1 APPLIC; Start 06/12/16 at 09:00 Trimethoprim/ Sulfamethoxazole (Bactrim (Ds)) 1 tab BID PO Last administered on 06/22/16 09:19; Admin Dose 1 TAB; Start 06/13/16 at 21:00 Nystatin 5 ml 5 ml QID PO Last administered on 06/22/16 13:09; Admin Dose 5 ML ; Start 06/18/16 at 17:00 Filgrastim 300 mcg/Dextrose 51 ml @ 50 mls/hr DAILY@17 IVPB Last administered on 06/21/16at 17:00; Admin Dose 50 MLS/HR; Start 06/18/16 at 17:00; Stop at 17:00 Dextrose/Sodium Chloride (D5-NS) 1,000 ml @ 125 mls/hr Q8H IV Last administered on 06/22/16 13:10; Admin Dose 125 MLS/HR; Start 06/20/16 at 20:00 KATIUSKA HORN MD Jun 22, 2016 16:15
[2016-06-22] MEDS: FILGRASTIM 300 MCG in DEXTROSE 5% 50 ML IVPB SCH (18:34)
[2016-06-22] MEDS: SCOPOLAMINE 1.5 MG PATCH TRANSDERM SCH (20:28)
[2016-06-22 23:47] VITALS: BP 119/73; PULSE 109; RESP 20
[2016-06-23] MEDS: ALBUTEROL/IPRATROPIUM (NEB) 3 ML AMP HHN SCH ×6 (01:40→20:58)
[2016-06-23] MEDS: DEXTROSE 5%-0.9% NACL 1,000 ML IV SCH ×3 (04:34→21:28)
[2016-06-23] MEDS: LEVOTHYROXINE 100 MCG TAB PO SCH (05:44)
[2016-06-23] MEDS: FLUCONAZOLE 200 MG/NS (PMX) 100 ML IVPB SCH (05:44)
[2016-06-23] MEDS: PANTOPRAZOLE 40 MG INJ IV SCH (05:55)
[2016-06-23 06:07] LABS: HAAIG REFLEX REFLEX FILED
[2016-06-23 07:10] LABS: ALBUMIN 2.8 g/dl (3.3-4.9)
[2016-06-23 07:11] LABS: POTASSIUM 3.6 mmol/L (3.5-5.1)
[2016-06-23 07:12] LABS: BASOPHILS % 0.6 % (0.0-2.0); CREATININE 0.38 mg/dl (0.44-1.00); HEMATOCRIT 23.8 % (37.0-47.0); HEMOGLOBIN 8.2 g/dl (12.0-16.0); LYMPHOCYTES # 0.4 10^3/ul (0.8-2.9); MEAN CORPUSCULAR HEMOGLOBIN 29.2 pg (29.0-33.0); MEAN CORPUSCULAR HGB CONC 34.6 g/dl (32.0-37.0); MEAN CORPUSCULAR VOLUME 84.5 fl (82.0-101.0); MEAN PLATELET VOLUME 8.3 fl (7.4-10.4); MONOCYTE # 0.1 10^3/ul (0.3-0.9); MONOCYTES % 4.5 % (0.0-11.0); NEUTROPHIL # 2.7 10^3/ul (1.6-7.5); NEUTROPHILS % 83.9 % (39.0-77.0); PLATELET COUNT 41 10^3/UL (140-440); RED BLOOD COUNT 2.81 10^6/ul (4.20-5.40); RED CELL DISTRIBUTION WIDTH 15.8 % (11.5-14.5); UNCORRECTED WBC 3.2 10^3/ul (4.8-10.8); WHITE BLOOD COUNT 3.2 10^3/ul (4.8-10.8)
[2016-06-23 07:13] LABS: ALBUMIN/GLOBULIN RATIO 1.16; BILIRUBIN,INDIRECT 0.2 mg/dl (0-1.1); BILIRUBIN,TOTAL 0.2 mg/dl (0.2-1.3); TOTAL PROTEIN 5.2 g/dl (6.1-8.1); URIC ACID 1.2 mg/dl (3.1-7.9)
[2016-06-23 07:14] LABS: CALCIUM 8.5 mg/dl (8.4-10.2)
[2016-06-23 07:19] LABS: CONDITION 1; LH ANALYZER COMMENTS 1; SUSPECT 1
[2016-06-23 07:52] LABS: HEPATITIS B CORE ANTIBODY NEGATIVE (NEGATIVE)
[2016-06-23 08:28] VITALS: BP 111/74; RESP 16
[2016-06-23] MEDS: NYSTATIN SUSP 5 ML CUP PO SCH ×4 (08:46→21:30)
[2016-06-23] MEDS: ARTIFICIAL TEARS 15 ML OPH BOTH EYES SCH ×4 (08:47→21:29)
[2016-06-23] MEDS: OCULAR LUBRICANT 3.5 GM OPH OINT BOTH EYES SCH (08:47)
[2016-06-23] MEDS: MUPIROCIN 2% 22 GM OINT TOP SCH ×2 (08:47→21:33)
[2016-06-23] MEDS: ACYCLOVIR 400 MG TAB PO SCH ×2 (08:48→21:30)
[2016-06-23] MEDS: ALLOPURINOL 300 MG TAB PO SCH (08:48)
[2016-06-23] MEDS: GABAPENTIN 100 MG CAP PO SCH ×3 (08:48→21:30)
[2016-06-23] MEDS: COLLAGENASE 30 GM TUBE TOP SCH (09:51)
[2016-06-23] MEDS: TRIMETHOPRIM/SULFAMETHOX (DS) TAB PO SCH ×2 (09:51→21:30)
--- NOTE | 2016-06-23 10:00 | CONS ---
Date/Time of Note Date/Time of Note DATE: 06/23/16 TIME: 09:56 Assessment/Plan Assessment/Plan Chief Complaint/Hosp Course Impression: 1. elevated transaminases: likley secondary to hepatotoxic medication such as methotrexate as it is temporally correlated with elevated transaminases. Need to r/o other causes eg rhypo or hyper thyroidism, autoimmune. Viral hepatitis r/ o. Transaminases down-trending. 2. Burkitt's lymphoma status post tracheostomy 3. status post thyroid mass: r/o hypo or hyper thyroidism as it can cause hepatotoxicity. 4. chemo induced pancytopenia 5. SEPSIS 6. gallstone: there is no elevated bilirubin and no biliary duct dilation. PLAN 1. elevated LFT likely due to methotrexate. 2. trend transaminases 3. screening test with ELIAZAR and SMA to screening for autoimmune hepatitis 4. Dr. Toirbio to resume care tomorrow Problems: Consultation Date/Type/Reason Admit Date/Time Jun 02, 2016 at 15:10 Initial Consult Date 06/02/16 Type of Consultation: GI Referring Provider: TELLY SOLANO MD 24 HR Interval Summary Free Text/Dictation no n/v, resting Exam/Review of Systems Vital Signs Vitals Vital Signs Date Time Temp Pulse Resp B/P Pulse Ox O2 Delivery O2 Flow Rate FiO2 06/23/16 09:07 5.0 28 06/23/16 08:57 106 22 97 Aerosol T Tube 06/23/16 08:28 98.9 111/74 Intake and Output 06/22/16 06/22/16 06/23/16 14:59 22:59 06:59 Intake Total 1050 ml 120 ml Output Total 800 ml 350 ml Balance 250 ml -230 ml Exam Constitutional: alert, oriented, well developed Head: atraumatic, normocephalic Eyes: EOMI, nl conjunctiva, nl lids, nl sclera ENMT: mucosa pink and moist, nl external ears & nose, nl lips & teeth, nl nasal mucosa & septum Neck: non-tender, supple Respiratory: clear to auscultation, normal air movement Cardiovascular: nl pulses, regular rate and rhythm Gastrointestinal: bowel sounds, non-tender, soft Results Result Diagram: 06/23/16 0430 06/23/16 0430 Results 24 hrs Laboratory Tests Test 06/23/16 04:30 06/23/16 04:45 Alanine Aminotransferase (ALT/SGPT) 104 H Albumin 2.8 L Albumin/Globulin Ratio 1.16 Alkaline Phosphatase 124 H Anion Gap 13 Aspartate Amino Transf (AST/SGOT) 55 H Basophils # Pending Basophils % Pending Blood Morphology Comment Blood Urea Nitrogen 3 L Calcium Level 8.5 Carbon Dioxide Level 24 Chloride Level 104 Creatinine 0.38 L Direct Bilirubin 0.00 Eosinophils # Pending Eosinophils % Pending Globulin 2.40 Glucose Level 95 Hematocrit 23.8 L Hemoglobin 8.2 L Indirect Bilirubin 0.2 Lactate Dehydrogenase 630 H Lymphocytes # Pending Lymphocytes % Pending Mean Corpuscular Hemoglobin 29.2 Mean Corpuscular Hemoglobin Concent 34.6 Mean Corpuscular Volume 84.5 Mean Platelet Volume 8.3 Monocytes # Pending Monocytes % Pending Neutrophils # Pending Neutrophils % Pending Nucleated Red Blood Cells # Pending Nucleated Red Blood Cells % Pending Platelet Count 41 L Potassium Level 3.6 Red Blood Count 2.81 L Red Cell Distribution Width 15.8 H Sodium Level 137 Total Bilirubin 0.2 Total Protein 5.2 L Uric Acid 1.2 L White Blood Count 3.2 #L Hepatitis B Core Total Antibody NEGATIVE Hepatitis B Surface Antigen NEGATIVE Hepatitis C Antibody NEGATIVE Medications Medications Current Medications Acyclovir (Zovirax) 400 mg BID PO Last administered on 06/23/16 08:48; Admin Dose 400 MG; Start 06/02/16 at 14:30 Diphenhydramine HCl (Benadryl) 25 mg Q4H PRN IV ALLERGIC REACTION Last administered on 06/06/16at 20:26; Admin Dose 25 MG; Start 06/02/16 at 18:30 Dexamethasone (Decadron) 10 mg Q4H PRN IV ALLERGIC REACTION; Start 06/02/16 at 18:30 Fluconazole 100 mg 100 mg DAILY PO Last administered on 06/08/16at 09:58; Admin Dose 100 MG; Start 06/03/16 at 09:00; Status Future Hold Ondansetron HCl/ Sodium Chloride (Zofran Inj/NS) 54 ml @ 216 mls/hr Q6H PRN IV NAUSEA AND/OR VOMITING Last administered on 06/21/16at 21:18; Admin Dose 216 MLS/HR; Start 06/02/16 at 18:30 Ondansetron HCl (Zofran Inj) 4 mg Q6H PRN IV NAUSEA AND/OR VOMITING Last administered on 06/22/16 09:49; Admin Dose 4 MG; Start 06/03/16 at 17:00 Acetaminophen (Tylenol Tab) 650 mg Q6H PRN PO PAIN LEVEL 1-3 OR FEVER Last administered on 06/11/16at 21:50; Admin Dose 650 MG; Start 06/03/16 at 17:00 Acetaminophen (Tylenol Supp) 650 mg Q6H PRN [place] PAIN LEVEL 1-3 OR FEVER Last administered on 06/09/16at 03:37; Admin Dose 650 MG; Start 06/03/16 at 17:00 Docusate Sodium (Colace) 100 mg Q12H PRN PO CONSTIPATION Last administered on 06/20/16 22:25; Admin Dose 100 MG; Start 06/03/16 at 17:00 Magnesium Hydroxide (Milk Of Mag) 30 ml DAILY PRN PO CONSTIPATION Last administered on 06/20/16 06:13; Admin Dose 30 ML; Start 06/03/16 at 17:00 Bisacodyl (Dulcolax) 5 mg DAILY PRN PO CONSTIPATION; Start 06/03/16 at 17:00 Bisacodyl (Dulcolax Supp) 10 mg DAILY PRN [place] CONSTIPATION Last administered on 06/21/16 05:18; Admin Dose 10 MG; Start 06/03/16 at 17:00 Sodium Biphosphate/ Sodium Phosphate (Fleet Enema) 133 ml DAILY PRN [place] CONSTIPATION; Start 06/03/16 at 17:00 Enoxaparin Sodium (Lovenox) 30 mg DAILY SC Last administered on 06/12/16at 08: 27; Admin Dose 30 MG; Start 06/04/16 at 09:00; Status Future Hold Allopurinol (Zyloprim) 300 mg DAILY PO Last administered on 06/23/16 08:48; Admin Dose 300 MG; Start 06/04/16 at 09:00 Eye Lubricant (Artificial Tears Oph) 2 drop QID BOTH EYES Last administered on 06/23/16 08:47; Admin Dose 2 DROP; Start 06/03/16 at 21:00 Eye Lubricant (Akwa Oint) 1 applic DAILY BOTH EYES Last administered on 08:47; Admin Dose 1 APPLIC; Start 06/04/16 at 09:00 Gabapentin (Neurontin) 200 mg TID PO Last administered on 06/23/16 08:48; Admin Dose 200 MG; Start 06/03/16 at 21:00 Levothyroxine Sodium (Synthroid) 100 mcg DAILY@06 PO Last administered on 05:44; Admin Dose 100 MCG; Start 06/04/16 at 06:00 Mupirocin (Bactroban) 1 applic BID TOP Last administered on 06/23/16 08:47; Admin Dose 1 APPLIC; Start 06/04/16 at 21:00 Pantoprazole (Protonix Iv) 40 mg DAILY@06 IV Last administered on 06/23/16 05: 55; Admin Dose 40 MG; Start 06/09/16 at 06:00 Lorazepam 1 mg 1 mg Q6H PRN IV AGITATION/ANXIETY Last administered on at 16:12; Admin Dose 1 MG; Start 06/08/16 at 18:00 Fluconazole (Diflucan 200 Mg/ NS (Pmx)) 100 ml @ 100 mls/hr Q24H IVPB Last administered on 06/23/16 05:44; Admin Dose 100 MLS/HR; Start 06/09/16 at 05:30 Acetaminophen/ Hydrocodone Bitart ([place] (5/325)) 1 tab Q6H PRN PO PAIN Last administered on 06/11/16at 17:38; Admin Dose 1 TAB; Start 06/11/16 at 17:30 Collagenase (Santyl) 1 applic DAILY TOP Last administered on 06/23/16 09:51; Admin Dose 1 APPLIC; Start 06/12/16 at 09:00 Trimethoprim/ Sulfamethoxazole (Bactrim (Ds)) 1 tab BID PO Last administered on 06/23/16 09:51; Admin Dose 1 TAB; Start 06/13/16 at 21:00 Nystatin 5 ml 5 ml QID PO Last administered on 06/23/16 08:46; Admin Dose 5 ML ; Start 06/18/16 at 17:00 Dextrose/Sodium Chloride (D5-NS) 1,000 ml @ 125 mls/hr Q8H IV Last administered on 06/23/16 04:34; Admin Dose 125 MLS/HR; Start 06/20/16 at 20:00 Scopolamine (Transderm-Scop) 1 patch Q72H TRANSDERM Last administered on t 20:28; Admin Dose 1 PATCH; Start 06/22/16 at 21:00 KATIUSKA HORN MD Jun 23, 2016 09:59
[2016-06-23 10:47] LABS: PLATELET ESTIMATE PLT APPEAR DECREASED
--- NOTE | 2016-06-23 12:29 | CONS ---
Date/Time of Note Date/Time of Note DATE: 06/23/16 TIME: 12:27 Assessment/Plan Assessment/Plan Chief Complaint/Hosp Course ID PROGRESS NOTE 24H INTERVAL SUMMARY * Lethargic, no fevers => She pulled out PICC, confused doesn't remember * MICROBIOLOGY: Blood cultures from 06/08/2016 grew coagulase-negative staph species. Repeat blood cultures negative. Nares swab/sputum cx positive for MRSA. * INDWELLINGS: Trach * Per GI NOTE: elevated LFT likely due to methotrexate. * ANTIMICROBIALS: 1. PO Bactrim 2. Topical Bactroban to nares. 3. Fluconazole. 4. Acyclovir. PHYSICAL EXAMINATION: GENERAL: 56 yo F, trach present, VSS, NAD HEENT: Unremarkable NECK: Maurer(+)Trach present LUNGS: Chest rise symmetrical, without dyspnea on observation ABDOMEN: Soft EXTREMITIES: Warm ID ASSESSMENT: 56 yo F Dx Stage IIA Burkitt's lymphoma, getting chemotherapy w/next cycle to start ThursdayJun 23 admit with: 1. S/p sepsis with high fevers likely secondary to neutropenia. 2. Coagulase-negative Staphylococcus bacteremia cw contaminant. 3. Respiratory failure, status post tracheostomy secondary to a neck mass causing tracheal compression and airway compromise, remains on trach collar. 4. Possible aspiration pneumonia=> sputum cx + MRSA. 5 Leukocytosis=> s/p Neupogen 6. Oral thrush=> oral Nystatin 7. (+)HCV w/Transaminitis=> Per GI NOTE: elevated LFT likely due to methotrexate. * ABNORMAL LIVER US: Cholelithiasis with 3 cm calcified gallstone within the neck of gallbladder versus liver calcification adjacent to the neck of gallbladder 8. Situational anxiety related to acute medical Dx and trach -> Stable 9. (+)MRSA Nares Screen->Bactroban CURRENT ABX: PO Bactrim, Diflucan, Acyclovir ID RECOMMENDATIONS/PLAN: Continue current ABX Needs new PICC access . Problems: Consultation Date/Type/Reason Admit Date/Time Jun 02, 2016 at 15:10 Initial Consult Date 06/02/16 Type of Consultation: ID Referring Provider: TELLY SOLANO MD Exam/Review of Systems Vital Signs Vitals Vital Signs Date Time Temp Pulse Resp B/P Pulse Ox O2 Delivery O2 Flow Rate FiO2 06/23/16 10:39 4.0 06/23/16 09:07 28 06/23/16 08:57 106 22 97 Aerosol T Tube 06/23/16 08:28 98.9 111/74 Intake and Output 06/22/16 06/22/16 06/23/16 15:00 23:00 07:00 Intake Total 1050 ml 120 ml Output Total 800 ml 350 ml Balance 250 ml -230 ml Results Result Diagram: 06/23/16 0430 06/23/16 0430 Results 24 hrs Laboratory Tests Test 06/23/16 04:30 06/23/16 04:45 Alanine Aminotransferase (ALT/SGPT) 104 H Albumin 2.8 L Albumin/Globulin Ratio 1.16 Alkaline Phosphatase 124 H Anion Gap 13 Aspartate Amino Transf (AST/SGOT) 55 H Basophils # 0.0 Basophils % 0.6 Blood Morphology Comment Blood Urea Nitrogen 3 L Calcium Level 8.5 Carbon Dioxide Level 24 Chloride Level 104 Creatinine 0.38 L Direct Bilirubin 0.00 Eosinophils # 0.0 Eosinophils % 0.0 Globulin 2.40 Glucose Level 95 Hematocrit 23.8 L Hemoglobin 8.2 L Indirect Bilirubin 0.2 Lactate Dehydrogenase 630 H Lymphocytes # 0.4 L Lymphocytes % 11.0 L Mean Corpuscular Hemoglobin 29.2 Mean Corpuscular Hemoglobin Concent 34.6 Mean Corpuscular Volume 84.5 Mean Platelet Volume 8.3 Monocytes # 0.1 L Monocytes % 4.5 Neutrophils # 2.7 Neutrophils % 83.9 H Nucleated Red Blood Cells # 0.0 Nucleated Red Blood Cells % 0.0 Platelet Count 41 L Platelet Estimate PLT APPEAR DECREASED Potassium Level 3.6 Red Blood Count 2.81 L Red Cell Distribution Width 15.8 H Sodium Level 137 Total Bilirubin 0.2 Total Protein 5.2 L Uric Acid 1.2 L White Blood Count 3.2 #L Hepatitis B Core Total Antibody NEGATIVE Hepatitis B Surface Antigen NEGATIVE Hepatitis C Antibody NEGATIVE Medications Medications Current Medications Acyclovir (Zovirax) 400 mg BID PO Last administered on 06/23/16t 08:48; Admin Dose 400 MG; Start 06/02/16 at 14:30 Diphenhydramine HCl (Benadryl) 25 mg Q4H PRN IV ALLERGIC REACTION Last administered on 06/06/16at 20:26; Admin Dose 25 MG; Start 06/02/16 at 18:30 Dexamethasone (Decadron) 10 mg Q4H PRN IV ALLERGIC REACTION; Start 06/02/16 at 18:30 Fluconazole 100 mg 100 mg DAILY PO Last administered on 06/08/16 09:58; Admin Dose 100 MG; Start 06/03/16 at 09:00; Status Future Hold Ondansetron HCl/ Sodium Chloride (Zofran Inj/NS) 54 ml @ 216 mls/hr Q6H PRN IV NAUSEA AND/OR VOMITING Last administered on 06/21/16 21:18; Admin Dose 216 MLS/HR; Start 06/02/16 at 18:30 Ondansetron HCl (Zofran Inj) 4 mg Q6H PRN IV NAUSEA AND/OR VOMITING Last administered on 06/22/16t 09:49; Admin Dose 4 MG; Start 06/03/16 at 17:00 Acetaminophen (Tylenol Tab) 650 mg Q6H PRN PO PAIN LEVEL 1-3 OR FEVER Last administered on 06/11/16at 21:50; Admin Dose 650 MG; Start 06/03/16 at 17:00 Acetaminophen (Tylenol Supp) 650 mg Q6H PRN [place] PAIN LEVEL 1-3 OR FEVER Last administered on 06/09/16at 03:37; Admin Dose 650 MG; Start 06/03/16 at 17:00 Docusate Sodium (Colace) 100 mg Q12H PRN PO CONSTIPATION Last administered on 06/20/16at 22:25; Admin Dose 100 MG; Start 06/03/16 at 17:00 Magnesium Hydroxide (Milk Of Mag) 30 ml DAILY PRN PO CONSTIPATION Last administered on 06/20/16 06:13; Admin Dose 30 ML; Start 06/03/16 at 17:00 Bisacodyl (Dulcolax) 5 mg DAILY PRN PO CONSTIPATION; Start 06/03/16 at 17:00 Bisacodyl (Dulcolax Supp) 10 mg DAILY PRN [place] CONSTIPATION Last administered on 06/21/16at 05:18; Admin Dose 10 MG; Start 06/03/16 at 17:00 Sodium Biphosphate/ Sodium Phosphate (Fleet Enema) 133 ml DAILY PRN [place] CONSTIPATION; Start 06/03/16 at 17:00 Enoxaparin Sodium (Lovenox) 30 mg DAILY SC Last administered on 06/12/16at 08: 27; Admin Dose 30 MG; Start 06/04/16 at 09:00; Status Future Hold Allopurinol (Zyloprim) 300 mg DAILY PO Last administered on 06/23/16 08:48; Admin Dose 300 MG; Start 06/04/16 at 09:00 Eye Lubricant (Artificial Tears Oph) 2 drop QID BOTH EYES Last administered on 06/23/16 08:47; Admin Dose 2 DROP; Start 06/03/16 at 21:00 Eye Lubricant (Akwa Oint) 1 applic DAILY BOTH EYES Last administered on 08:47; Admin Dose 1 APPLIC; Start 06/04/16 at 09:00 Gabapentin (Neurontin) 200 mg TID PO Last administered on 06/23/16 08:48; Admin Dose 200 MG; Start 06/03/16 at 21:00 Levothyroxine Sodium (Synthroid) 100 mcg DAILY@06 PO Last administered on 05:44; Admin Dose 100 MCG; Start 06/04/16 at 06:00 Mupirocin (Bactroban) 1 applic BID TOP Last administered on 06/23/16 08:47; Admin Dose 1 APPLIC; Start 06/04/16 at 21:00 Pantoprazole (Protonix Iv) 40 mg DAILY@06 IV Last administered on 06/23/16 05: 55; Admin Dose 40 MG; Start 06/09/16 at 06:00 Lorazepam 1 mg 1 mg Q6H PRN IV AGITATION/ANXIETY Last administered on at 16:12; Admin Dose 1 MG; Start 06/08/16 at 18:00 Fluconazole (Diflucan 200 Mg/ NS (Pmx)) 100 ml @ 100 mls/hr Q24H IVPB Last administered on 06/23/16 05:44; Admin Dose 100 MLS/HR; Start 06/09/16 at 05:30 Acetaminophen/ Hydrocodone Bitart ([place] (5/325)) 1 tab Q6H PRN PO PAIN Last administered on 06/11/16at 17:38; Admin Dose 1 TAB; Start 06/11/16 at 17:30 Collagenase (Santyl) 1 applic DAILY TOP Last administered on 06/23/16 09:51; Admin Dose 1 APPLIC; Start 06/12/16 at 09:00 Trimethoprim/ Sulfamethoxazole (Bactrim (Ds)) 1 tab BID PO Last administered on 06/23/16 09:51; Admin Dose 1 TAB; Start 06/13/16 at 21:00 Nystatin 5 ml 5 ml QID PO Last administered on 06/23/16 08:46; Admin Dose 5 ML ; Start 06/18/16 at 17:00 Dextrose/Sodium Chloride (D5-NS) 1,000 ml @ 125 mls/hr Q8H IV Last administered on 06/23/16 04:34; Admin Dose 125 MLS/HR; Start 06/20/16 at 20:00 Scopolamine (Transderm-Scop) 1 patch Q72H TRANSDERM Last administered on 20:28; Admin Dose 1 PATCH; Start 06/22/16 at 21:00 BRENT AUSTIN NP Jun 23, 2016 12:29
--- NOTE | 2016-06-23 13:53 | PN ---
Date/Time of Note Date/Time of Note DATE: 06/23/16 TIME: 13:51 Assessment/Plan VTE Prophylaxis VTE Prophylaxis Intervention: other Lines/Catheters [facility] PICC Line Central line still needed: Yes Urinary Cath still in place: No Assessment/Plan Chief Complaint/Hosp Course IMPRESSION: The patient has Burkitt's lymphoma status post tracheostomy, status post thyroid mass, status post pancytopenia, abnormal liver function test. The patient has PANCYTOPENIA, ON CHEMO SEPSIS gallstone ABN LFT PLAN PER DR MERLOS per id IV FLUID ck labs dr wylie to see called Problems: Subjective 24 Hr Interval Summary Respiratory: no complaints Cardiovascular: no complaints Gastrointestinal: nausea (+) Exam/Review of Systems Vital Signs Vitals Vital Signs Date Time Temp Pulse Resp B/P Pulse Ox O2 Delivery O2 Flow Rate FiO2 06/23/16 10:39 4.0 06/23/16 09:07 28 06/23/16 08:57 106 22 97 Aerosol T Tube 06/23/16 08:28 98.9 111/74 Intake and Output 06/22/16 06/22/16 06/23/16 15:00 23:00 07:00 Intake Total 1050 ml 120 ml Output Total 800 ml 350 ml Balance 250 ml -230 ml Exam Neck: supple Respiratory: clear to auscultation Cardiovascular: regular rate and rhythm Gastrointestinal: soft Extremities: edema (tr) Neurological: INTERPRETER TRANSLATOR II-XII intact Results Result Diagram: 06/23/16 0430 06/23/16 0430 Results 24 hrs Laboratory Tests Test 06/23/16 04:30 06/23/16 04:45 Alanine Aminotransferase (ALT/SGPT) 104 H Albumin 2.8 L Albumin/Globulin Ratio 1.16 Alkaline Phosphatase 124 H Anion Gap 13 Aspartate Amino Transf (AST/SGOT) 55 H Basophils # 0.0 Basophils % 0.6 Blood Morphology Comment Blood Urea Nitrogen 3 L Calcium Level 8.5 Carbon Dioxide Level 24 Chloride Level 104 Creatinine 0.38 L Direct Bilirubin 0.00 Eosinophils # 0.0 Eosinophils % 0.0 Globulin 2.40 Glucose Level 95 Hematocrit 23.8 L Hemoglobin 8.2 L Indirect Bilirubin 0.2 Lactate Dehydrogenase 630 H Lymphocytes # 0.4 L Lymphocytes % 11.0 L Mean Corpuscular Hemoglobin 29.2 Mean Corpuscular Hemoglobin Concent 34.6 Mean Corpuscular Volume 84.5 Mean Platelet Volume 8.3 Monocytes # 0.1 L Monocytes % 4.5 Neutrophils # 2.7 Neutrophils % 83.9 H Nucleated Red Blood Cells # 0.0 Nucleated Red Blood Cells % 0.0 Platelet Count 41 L Platelet Estimate PLT APPEAR DECREASED Potassium Level 3.6 Red Blood Count 2.81 L Red Cell Distribution Width 15.8 H Sodium Level 137 Total Bilirubin 0.2 Total Protein 5.2 L Uric Acid 1.2 L White Blood Count 3.2 #L Hepatitis B Core Total Antibody NEGATIVE Hepatitis B Surface Antigen NEGATIVE Hepatitis C Antibody NEGATIVE Medications Medications Current Medications Acyclovir (Zovirax) 400 mg BID PO Last administered on 06/23/16 08:48; Admin Dose 400 MG; Start 06/02/16 at 14:30 Diphenhydramine HCl (Benadryl) 25 mg Q4H PRN IV ALLERGIC REACTION Last administered on 06/06/16 20:26; Admin Dose 25 MG; Start 06/02/16 at 18:30 Dexamethasone (Decadron) 10 mg Q4H PRN IV ALLERGIC REACTION; Start 06/02/16 at 18:30 Fluconazole 100 mg 100 mg DAILY PO Last administered on 06/08/16 09:58; Admin Dose 100 MG; Start 06/03/16 at 09:00; Status Future Hold Ondansetron HCl/ Sodium Chloride (Zofran Inj/NS) 54 ml @ 216 mls/hr Q6H PRN IV NAUSEA AND/OR VOMITING Last administered on 06/21/16 21:18; Admin Dose 216 MLS/HR; Start 06/02/16 at 18:30 Ondansetron HCl (Zofran Inj) 4 mg Q6H PRN IV NAUSEA AND/OR VOMITING Last administered on 06/22/16 09:49; Admin Dose 4 MG; Start 06/03/16 at 17:00 Acetaminophen (Tylenol Tab) 650 mg Q6H PRN PO PAIN LEVEL 1-3 OR FEVER Last administered on 06/11/16 21:50; Admin Dose 650 MG; Start 06/03/16 at 17:00 Acetaminophen (Tylenol Supp) 650 mg Q6H PRN [place] PAIN LEVEL 1-3 OR FEVER Last administered on 06/09/16 03:37; Admin Dose 650 MG; Start 06/03/16 at 17:00 Docusate Sodium (Colace) 100 mg Q12H PRN PO CONSTIPATION Last administered on 06/20/16at 22:25; Admin Dose 100 MG; Start 06/03/16 at 17:00 Magnesium Hydroxide (Milk Of Mag) 30 ml DAILY PRN PO CONSTIPATION Last administered on 06/20/16at 06:13; Admin Dose 30 ML; Start 06/03/16 at 17:00 Bisacodyl (Dulcolax) 5 mg DAILY PRN PO CONSTIPATION; Start 06/03/16 at 17:00 Bisacodyl (Dulcolax Supp) 10 mg DAILY PRN [place] CONSTIPATION Last administered on 06/21/16at 05:18; Admin Dose 10 MG; Start 06/03/16 at 17:00 Sodium Biphosphate/ Sodium Phosphate (Fleet Enema) 133 ml DAILY PRN [place] CONSTIPATION; Start 06/03/16 at 17:00 Enoxaparin Sodium (Lovenox) 30 mg DAILY SC Last administered on 06/12/16at 08: 27; Admin Dose 30 MG; Start 06/04/16 at 09:00; Status Future Hold Allopurinol (Zyloprim) 300 mg DAILY PO Last administered on 06/23/16 08:48; Admin Dose 300 MG; Start 06/04/16 at 09:00 Eye Lubricant (Artificial Tears Oph) 2 drop QID BOTH EYES Last administered on 06/23/16 12:53; Admin Dose 2 DROP; Start 06/03/16 at 21:00 Eye Lubricant (Akwa Oint) 1 applic DAILY BOTH EYES Last administered on 08:47; Admin Dose 1 APPLIC; Start 06/04/16 at 09:00 Gabapentin (Neurontin) 200 mg TID PO Last administered on 06/23/16 12:53; Admin Dose 200 MG; Start 06/03/16 at 21:00 Levothyroxine Sodium (Synthroid) 100 mcg DAILY@06 PO Last administered on 05:44; Admin Dose 100 MCG; Start 06/04/16 at 06:00 Mupirocin (Bactroban) 1 applic BID TOP Last administered on 06/23/16 08:47; Admin Dose 1 APPLIC; Start 06/04/16 at 21:00 Pantoprazole (Protonix Iv) 40 mg DAILY@06 IV Last administered on 06/23/16 05: 55; Admin Dose 40 MG; Start 06/09/16 at 06:00 Lorazepam 1 mg 1 mg Q6H PRN IV AGITATION/ANXIETY Last administered on at 16:12; Admin Dose 1 MG; Start 06/08/16 at 18:00 Fluconazole (Diflucan 200 Mg/ NS (Pmx)) 100 ml @ 100 mls/hr Q24H IVPB Last administered on 06/23/16 05:44; Admin Dose 100 MLS/HR; Start 06/09/16 at 05:30 Acetaminophen/ Hydrocodone Bitart ([place] (5/325)) 1 tab Q6H PRN PO PAIN Last administered on 06/11/16at 17:38; Admin Dose 1 TAB; Start 06/11/16 at 17:30 Collagenase (Santyl) 1 applic DAILY TOP Last administered on 06/23/16 09:51; Admin Dose 1 APPLIC; Start 06/12/16 at 09:00 Trimethoprim/ Sulfamethoxazole (Bactrim (Ds)) 1 tab BID PO Last administered on 06/23/16 09:51; Admin Dose 1 TAB; Start 06/13/16 at 21:00 Nystatin 5 ml 5 ml QID PO Last administered on 06/23/16 12:52; Admin Dose 5 ML ; Start 06/18/16 at 17:00 Dextrose/Sodium Chloride (D5-NS) 1,000 ml @ 125 mls/hr Q8H IV Last administered on 06/23/16 12:53; Admin Dose 125 MLS/HR; Start 06/20/16 at 20:00 Scopolamine (Transderm-Scop) 1 patch Q72H TRANSDERM Last administered on 20:28; Admin Dose 1 PATCH; Start 06/22/16 at 21:00 GUERLINE SULLIVAN MD Jun 23, 2016 13:53
[2016-06-23] MEDS: LORAZEPAM 2 MG INJ IV PRN (16:31)
[2016-06-23 21:18] VITALS: BP 100/57; RESP 20
[2016-06-23] MEDS: ACETAMINOPHEN 325 MG TAB PO PRN (21:30)
[2016-06-24] MEDS: ALBUTEROL/IPRATROPIUM (NEB) 3 ML AMP HHN SCH ×6 (01:05→20:49)
[2016-06-24] MEDS: FLUCONAZOLE 200 MG/NS (PMX) 100 ML IVPB SCH (05:03)
[2016-06-24] MEDS: DEXTROSE 5%-0.9% NACL 1,000 ML IV SCH ×3 (05:04→17:58)
[2016-06-24 05:32] LABS: HEMATOCRIT 21.3 % (37.0-47.0); HEMOGLOBIN 7.6 g/dl (12.0-16.0); MEAN CORPUSCULAR HEMOGLOBIN 29.9 pg (29.0-33.0); MEAN CORPUSCULAR HGB CONC 35.5 g/dl (32.0-37.0); MEAN CORPUSCULAR VOLUME 84.3 fl (82.0-101.0); MEAN PLATELET VOLUME 9.2 fl (7.4-10.4); RED BLOOD COUNT 2.52 10^6/ul (4.20-5.40); RED CELL DISTRIBUTION WIDTH 15.1 % (11.5-14.5); UNCORRECTED WBC 2.3 10^3/ul (4.8-10.8); WHITE BLOOD COUNT 2.3 10^3/ul (4.8-10.8)
[2016-06-24] MEDS: PANTOPRAZOLE 40 MG INJ IV SCH (05:32)
[2016-06-24] MEDS: LEVOTHYROXINE 100 MCG TAB PO SCH (05:32)
[2016-06-24 05:42] LABS: CONDITION 1; LH ANALYZER COMMENTS 1; PLATELET COUNT 26 10^3/UL (140-440); SUSPECT 1
[2016-06-24 05:45] LABS: ALBUMIN 2.4 g/dl (3.3-4.9); POTASSIUM 3.7 mmol/L (3.5-5.1)
[2016-06-24 05:47] LABS: CREATININE 0.31 mg/dl (0.44-1.00)
[2016-06-24 05:48] LABS: ALBUMIN/GLOBULIN RATIO 1.2; BILIRUBIN,INDIRECT 0.2 mg/dl (0-1.1); BILIRUBIN,TOTAL 0.2 mg/dl (0.2-1.3); CALCIUM 8.2 mg/dl (8.4-10.2); TOTAL PROTEIN 4.4 g/dl (6.1-8.1); URIC ACID 1.3 mg/dl (3.1-7.9)
[2016-06-24 07:58] VITALS: BP 118/68; RESP 18
[2016-06-24 08:42] LABS: LYMPHOCYTES # 0.5 10^3/ul (0.8-2.9); MONOCYTE # 0.2 10^3/ul (0.3-0.9); NEUTROPHIL # 1.4 10^3/ul (1.6-7.5)
[2016-06-24 08:43] LABS: ANISOCYTOSIS 1+; PLATELET ESTIMATE PLT APPEAR DECREASED
[2016-06-24] MEDS: ALLOPURINOL 300 MG TAB PO SCH (09:16)
[2016-06-24] MEDS: ACYCLOVIR 400 MG TAB PO SCH ×2 (09:16→22:07)
[2016-06-24] MEDS: ACETAMINOPHEN 325 MG TAB PO PRN (09:16)
[2016-06-24] MEDS: GABAPENTIN 100 MG CAP PO SCH ×3 (09:16→22:07)
[2016-06-24] MEDS: TRIMETHOPRIM/SULFAMETHOX (DS) TAB PO SCH ×2 (09:16→22:07)
[2016-06-24] MEDS: MUPIROCIN 2% 22 GM OINT TOP SCH (09:17)
[2016-06-24] MEDS: OCULAR LUBRICANT 3.5 GM OPH OINT BOTH EYES SCH (09:17)
[2016-06-24] MEDS: COLLAGENASE 30 GM TUBE TOP SCH (09:17)
[2016-06-24] MEDS: ARTIFICIAL TEARS 15 ML OPH BOTH EYES SCH ×4 (09:17→22:07)
[2016-06-24] MEDS: NYSTATIN SUSP 5 ML CUP PO SCH ×4 (09:17→22:07)
--- NOTE | 2016-06-24 10:41 | RADRPT ---
PROCEDURE: Chest x-ray CLINICAL INDICATION: Lymphoma TECHNIQUE: Chest single view COMPARISON: 06/10/2016 FINDINGS: There is left arm PICC line with tip in the SVC. Tracheostomy tube remain in good position. Heart is normal in size. Bony vessels are normal in caliber. There is persistent elevation right hemidia phragm with mild right basilar atelectasis. Lungs otherwise clear. Costophrenic angles sharp. Bon y thorax is unremarkable. IMPRESSION: 1. Interval placement left arm PICC line with tip in the SVC. 2. Tracheostomy tube remains in good position. 3. Persistent elevation right hemidiaphragm with mild right basilar atelectasis RPTAT: HH .Alcon Villatoro MD, MD Date Time Electronically viewed and signed by .Alcon Villatoro MD, on 06/24/2016 10:40 .W/
[2016-06-24] MEDS: LACTOBACILLUS CHEW TAB PO SCH ×2 (12:24→22:07)
[2016-06-24] MEDS: CEFEPIME 1GM/50 ML (PMX) 50 ML IVPB SCH ×3 (12:30→22:10)
--- NOTE | 2016-06-24 12:50 | CONS ---
Date/Time of Note Date/Time of Note DATE: 06/24/16 TIME: 12:50 Assessment/Plan Assessment/Plan Additional Assessment/Plan Impression: 1. elevated transaminases: likley secondary to hepatotoxic medication such as methotrexate as it is temporally correlated with elevated transaminases. Need to r/o other causes eg rhypo or hyper thyroidism, autoimmune. Viral hepatitis r/ o. Transaminases down-trending. 2. Burkitt's lymphoma status post tracheostomy 3. status post thyroid mass: r/o hypo or hyper thyroidism as it can cause hepatotoxicity. 4. chemo induced pancytopenia 5. SEPSIS 6. gallstone: there is no elevated bilirubin and no biliary duct dilation. PLAN 1. elevated LFT likely due to methotrexate. 2. trend transaminases 3. screening test with ELIAZAR and SMA to screening for autoimmune hepatitis Consultation Date/Type/Reason Admit Date/Time Jun 02, 2016 at 15:10 Initial Consult Date 06/02/16 Type of Consultation: ID Referring Provider: TELLY SOLANO MD 24 HR Interval Summary Free Text/Dictation c/o inguinal area pain Exam/Review of Systems Vital Signs Vitals Vital Signs Date Time Temp Pulse Resp B/P Pulse Ox O2 Delivery O2 Flow Rate FiO2 06/24/16 09:15 99.1 06/24/16 09:00 5.0 28 06/24/16 09:00 92 20 97 Aerosol 06/24/16 07:58 118/68 Intake and Output 06/23/16 06/23/16 06/24/16 14:59 22:59 06:59 Intake Total 1375 ml 1762 ml 1300 ml Output Total 700 ml 600 ml 600 ml Balance 675 ml 1162 ml 700 ml Exam Constitutional: alert, oriented, well developed Psych: nl mood/affect, no complaints Head: atraumatic, normocephalic Eyes: EOMI, PERRL, nl conjunctiva, nl lids, nl sclera ENMT: nl external ears & nose, nl lips & teeth, nl nasal mucosa & septum Neck: non-tender, supple Respiratory: clear to auscultation, normal air movement Cardiovascular: nl pulses, regular rate and rhythm Gastrointestinal: nl liver, spleen, non-tender, soft Musculoskeletal: nl extremities to inspection, nl gait and stance Extremities: normal pulses Neurological: AIRCRAFT SYSTEMS REPAIRER II-XII intact, nl mental status, nl speech, nl strength Skin: nl turgor, No rash or lesions Lymph: nl lymph nodes Results Result Diagram: 06/24/1642406/24/16424 Results 24 hrs Laboratory Tests Test 06/24/16 04:25 Alanine Aminotransferase (ALT/SGPT) 85 H Albumin 2.4 L Albumin/Globulin Ratio 1.20 Alkaline Phosphatase 101 Anion Gap 15 Anisocytosis 1+ Aspartate Amino Transf (AST/SGOT) 39 Band Neutrophils % 5.0 Blood Morphology Comment Blood Urea Nitrogen 2 L Calcium Level 8.2 L Carbon Dioxide Level 23 Chloride Level 107 Creatinine 0.31 L Direct Bilirubin 0.00 Globulin 2.00 Glucose Level 99 Hematocrit 21.3 L Hemoglobin 7.6 L Indirect Bilirubin 0.2 Lactate Dehydrogenase 592 Lymphocytes # 0.5 L Lymphocytes % 21.0 Mean Corpuscular Hemoglobin 29.9 Mean Corpuscular Hemoglobin Concent 35.5 Mean Corpuscular Volume 84.3 Mean Platelet Volume 9.2 Metamyelocytes # 0.0 Metamyelocytes % 2.0 H Monocytes # 0.2 L Monocytes % 10.0 Neutrophils # 1.4 L Neutrophils % 62.0 Platelet Count 26 #*L Platelet Estimate PLT APPEAR DECREASED Potassium Level 3.7 Red Blood Count 2.52 L Red Cell Distribution Width 15.1 H Sodium Level 141 Thyroid Stimulating Hormone (TSH) 0.165 L Total Bilirubin 0.2 Total Protein 4.4 L Uric Acid 1.3 L White Blood Count 2.3 #L Medications Medications Current Medications Acyclovir (Zovirax) 400 mg BID PO Last administered on 06/24/16 09:16; Admin Dose 400 MG; Start 06/02/16 at 14:30 Diphenhydramine HCl (Benadryl) 25 mg Q4H PRN IV ALLERGIC REACTION Last administered on 06/06/16at 20:26; Admin Dose 25 MG; Start 06/02/16 at 18:30 Dexamethasone (Decadron) 10 mg Q4H PRN IV ALLERGIC REACTION; Start 06/02/16 at 18:30 Fluconazole 100 mg 100 mg DAILY PO Last administered on 06/08/16at 09:58; Admin Dose 100 MG; Start 06/03/16 at 09:00; Status Future Hold Ondansetron HCl/ Sodium Chloride (Zofran Inj/NS) 54 ml @ 216 mls/hr Q6H PRN IV NAUSEA AND/OR VOMITING Last administered on 06/21/16 21:18; Admin Dose 216 MLS/HR; Start 06/02/16 at 18:30 Ondansetron HCl (Zofran Inj) 4 mg Q6H PRN IV NAUSEA AND/OR VOMITING Last administered on 06/22/16 09:49; Admin Dose 4 MG; Start 06/03/16 at 17:00 Acetaminophen (Tylenol Tab) 650 mg Q6H PRN PO PAIN LEVEL 1-3 OR FEVER Last administered on 06/24/16 09:16; Admin Dose 650 MG; Start 06/03/16 at 17:00 Acetaminophen (Tylenol Supp) 650 mg Q6H PRN [place] PAIN LEVEL 1-3 OR FEVER Last administered on 06/09/16at 03:37; Admin Dose 650 MG; Start 06/03/16 at 17:00 Docusate Sodium (Colace) 100 mg Q12H PRN PO CONSTIPATION Last administered on 06/20/16 22:25; Admin Dose 100 MG; Start 06/03/16 at 17:00 Magnesium Hydroxide (Milk Of Mag) 30 ml DAILY PRN PO CONSTIPATION Last administered on 06/20/16 06:13; Admin Dose 30 ML; Start 06/03/16 at 17:00 Bisacodyl (Dulcolax) 5 mg DAILY PRN PO CONSTIPATION; Start 06/03/16 at 17:00 Bisacodyl (Dulcolax Supp) 10 mg DAILY PRN [place] CONSTIPATION Last administered on 06/21/16at 05:18; Admin Dose 10 MG; Start 06/03/16 at 17:00 Sodium Biphosphate/ Sodium Phosphate (Fleet Enema) 133 ml DAILY PRN [place] CONSTIPATION; Start 06/03/16 at 17:00 Enoxaparin Sodium (Lovenox) 30 mg DAILY SC Last administered on 06/12/16at 08: 27; Admin Dose 30 MG; Start 06/04/16 at 09:00; Status Future Hold Allopurinol (Zyloprim) 300 mg DAILY PO Last administered on 06/24/16 09:16; Admin Dose 300 MG; Start 06/04/16 at 09:00 Eye Lubricant (Artificial Tears Oph) 2 drop QID BOTH EYES Last administered on 06/24/16 12:24; Admin Dose 2 DROP; Start 06/03/16 at 21:00 Eye Lubricant (Akwa Oint) 1 applic DAILY BOTH EYES Last administered on 09:17; Admin Dose 1 APPLIC; Start 06/04/16 at 09:00 Gabapentin (Neurontin) 200 mg TID PO Last administered on 06/24/16 12:24; Admin Dose 200 MG; Start 06/03/16 at 21:00 Levothyroxine Sodium (Synthroid) 100 mcg DAILY@06 PO Last administered on 05:32; Admin Dose 100 MCG; Start 06/04/16 at 06:00 Mupirocin (Bactroban) 1 applic BID TOP Last administered on 06/24/16 09:17; Admin Dose 1 APPLIC; Start 06/04/16 at 21:00 Pantoprazole (Protonix Iv) 40 mg DAILY@06 IV Last administered on 06/24/16 05: 32; Admin Dose 40 MG; Start 06/09/16 at 06:00 Lorazepam 1 mg 1 mg Q6H PRN IV AGITATION/ANXIETY Last administered on 06/23/16 16:31; Admin Dose 1 MG; Start 06/08/16 at 18:00 Fluconazole (Diflucan 200 Mg/ NS (Pmx)) 100 ml @ 100 mls/hr Q24H IVPB Last administered on 06/24/16 05:03; Admin Dose 100 MLS/HR; Start 06/09/16 at 05:30 Acetaminophen/ Hydrocodone Bitart ([place] (5/325)) 1 tab Q6H PRN PO PAIN Last administered on 06/11/16at 17:38; Admin Dose 1 TAB; Start 06/11/16 at 17:30 Collagenase (Santyl) 1 applic DAILY TOP Last administered on 06/24/16 09:17; Admin Dose 1 APPLIC; Start 06/12/16 at 09:00 Trimethoprim/ Sulfamethoxazole (Bactrim (Ds)) 1 tab BID PO Last administered on 06/24/16 09:16; Admin Dose 1 TAB; Start 06/13/16 at 21:00 Nystatin 5 ml 5 ml QID PO Last administered on 06/24/16 12:24; Admin Dose 5 ML ; Start 06/18/16 at 17:00 Dextrose/Sodium Chloride (D5-NS) 1,000 ml @ 125 mls/hr Q8H IV Last administered on 06/24/16 05:04; Admin Dose 125 MLS/HR; Start 06/20/16 at 20:00 Scopolamine 1 patch 1 patch Q72H TRANSDERM Last administered on 06/22/16 20:28 ; Admin Dose 1 PATCH; Start 06/22/16 at 21:00 Cefepime HCl (Maxipime 1gm/50 ml (Pmx)) 50 ml @ 100 mls/hr Q12 IVPB ; Start 06/24/16 at 12:30 Lactobacillus Acidoph/Bulgaricus (Floranex) 1 tab TID PO Last administered on 12:24; Admin Dose 1 TAB; Start 06/24/16 at 13:00 ANDREZ CONNOR MD Jun 24, 2016 12:50
[2016-06-24 14:37] LABS: ANA SCREEN NEGATIVE (NEGATIVE)
--- NOTE | 2016-06-24 15:15 | CONS ---
Date/Time of Note Date/Time of Note DATE: 06/24/16 TIME: 15:11 Assessment/Plan Assessment/Plan Chief Complaint/Hosp Course 56 yo female with massive neck mass causing tracheal compression and airway compromise s/p tracheostomy placement. 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 Pt was given cycle 1A and 1B of R HyperCVAD but had only a partial response to therapy and severe side effects. We have thus changed her chemotherapy regimen. She is now being admitted for cycle 1 of R-CODOX-M and has now completed her chemotherapy Problems: Additional Assessment/Plan # Burkitt's lymphoma -s/p cycle 1 R CODOX -M -Rituximab (Rituxan) as follows: * Cycle 1: 375 mg/m2 (660mg) IV on Day 1 -Cyclophosphamide (Cytoxan) 800 mg/m2 ( 1415mg) IV once per day on days 1 & 2 -Vincristine (Oncovin) 1.0 mg (dose reduced for neuropathy) days 1 & 15 . given on 06/17 -Doxorubicin (Adriamycin) 50 mg/m2 (88mg) IV once on day 1 -Methotrexate (MTX) 100mg/m2 (175mg) IV over 1 hour then 900mg/m2 (1590mg) over 23 hours on day 15. will start IVF with 2 amps Na HCo3 prior to MTX infusion since Urine Ph > 7.0. Leucovorin 25mg IV q 4 hours will start 36 hours after MTX starts until MTX level is < 0.05. next dose due today 06/16. Methotrexate at 72 hours is 0.05, which is at goal. Can stop bicarb and leucovorin, can stop checking urine pH. - Patient complaining of feeling of tightness around trach cannula. RT already evaluated patient. Discussed with Dr. Curran, given oxygenation adequate, will continue to monitor. Repeat CT neck 06/20 shows no stenosis, overall stable findings. Consider ENT consult if worsens. Currently resolved, may be related to mucous plugging, improved after suctioning per nurse. # Neutropenic fever -pt is now afebrile and will dc precautions -ANC 1400. can dc Neupogen for now -continue antibiotics. # Supportive Care and prophylactic meds -Started Acyclovir 400mg BID -fluconazole 100mg q day -Neupogen 300mcg q day -Zofran ordered prn nausea #Expected Pancytopenia -keep Hg> 8 and platelets > 10. pt to get 1 units of prbc today # Elevated AST and ALT, likely related to methotrexate. Monitor. 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 all steroids should be discontinued for now unless they are part of the chemotherapy regimen -continue to work with physical therapy. 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 -uric acid level ok Consultation Date/Type/Reason Admit Date/Time Jun 02, 2016 at 15:10 Initial Consult Date 06/02/16 Type of Consultation: Hematology Reason for Consultation Burkitt's lymphoma Referring Provider: TELLY SOLANO MD 24 HR Interval Summary Free Text/Dictation pt had nausea and weakness yesterday but today feels better. walking with physical therapy Exam/Review of Systems Vital Signs Vitals Vital Signs Date Time Temp Pulse Resp B/P Pulse Ox O2 Delivery O2 Flow Rate FiO2 06/24/16 12:53 5.0 28 06/24/16 12:53 94 22 98 Aerosol 06/24/16 09:15 99.1 06/24/16 07:58 118/68 Intake and Output 06/23/16 06/23/16 06/24/16 15:00 23:00 07:00 Intake Total 1375 ml 1762 ml 1300 ml Output Total 700 ml 600 ml 600 ml Balance 675 ml 1162 ml 700 ml Exam Constitutional: alert, oriented Psych: no complaints Head: atraumatic, normocephalic Eyes: nl conjunctiva ENMT: other (trach in place) Respiratory: clear to auscultation, normal air movement Cardiovascular: nl pulses, regular rate and rhythm Gastrointestinal: soft Musculoskeletal: nl extremities to inspection, nl gait and stance Extremities: normal pulses Neurological: [employer] II-XII intact Results Result Diagram: 06/24/165 06/24/16 0425 Results 24 hrs Laboratory Tests Test 06/24/16 04:25 Alanine Aminotransferase (ALT/SGPT) 85 H Albumin 2.4 L Albumin/Globulin Ratio 1.20 Alkaline Phosphatase 101 Anion Gap 15 Anisocytosis 1+ Aspartate Amino Transf (AST/SGOT) 39 Band Neutrophils % 5.0 Blood Morphology Comment Blood Urea Nitrogen 2 L Calcium Level 8.2 L Carbon Dioxide Level 23 Chloride Level 107 Creatinine 0.31 L Direct Bilirubin 0.00 Globulin 2.00 Glucose Level 99 Hematocrit 21.3 L Hemoglobin 7.6 L Indirect Bilirubin 0.2 Lactate Dehydrogenase 592 Lymphocytes # 0.5 L Lymphocytes % 21.0 Mean Corpuscular Hemoglobin 29.9 Mean Corpuscular Hemoglobin Concent 35.5 Mean Corpuscular Volume 84.3 Mean Platelet Volume 9.2 Metamyelocytes # 0.0 Metamyelocytes % 2.0 H Monocytes # 0.2 L Monocytes % 10.0 Neutrophils # 1.4 L Neutrophils % 62.0 Platelet Count 26 #*L Platelet Estimate PLT APPEAR DECREASED Potassium Level 3.7 Red Blood Count 2.52 L Red Cell Distribution Width 15.1 H Sodium Level 141 Thyroid Stimulating Hormone (TSH) 0.165 L Total Bilirubin 0.2 Total Protein 4.4 L Uric Acid 1.3 L White Blood Count 2.3 #L Medications Medications Current Medications Acyclovir (Zovirax) 400 mg BID PO Last administered on 06/24/16 09:16; Admin Dose 400 MG; Start 06/02/16 at 14:30 Diphenhydramine HCl (Benadryl) 25 mg Q4H PRN IV ALLERGIC REACTION Last administered on 06/06/16at 20:26; Admin Dose 25 MG; Start 06/02/16 at 18:30 Dexamethasone (Decadron) 10 mg Q4H PRN IV ALLERGIC REACTION; Start 06/02/16 at 18:30 Fluconazole 100 mg 100 mg DAILY PO Last administered on 06/08/16at 09:58; Admin Dose 100 MG; Start 06/03/16 at 09:00; Status Future Hold Ondansetron HCl/ Sodium Chloride (Zofran Inj/NS) 54 ml @ 216 mls/hr Q6H PRN IV NAUSEA AND/OR VOMITING Last administered on 06/21/16at 21:18; Admin Dose 216 MLS/HR; Start 06/02/16 at 18:30 Ondansetron HCl (Zofran Inj) 4 mg Q6H PRN IV NAUSEA AND/OR VOMITING Last administered on 06/22/16 09:49; Admin Dose 4 MG; Start 06/03/16 at 17:00 Acetaminophen (Tylenol Tab) 650 mg Q6H PRN PO PAIN LEVEL 1-3 OR FEVER Last administered on 06/24/16 09:16; Admin Dose 650 MG; Start 06/03/16 at 17:00 Acetaminophen (Tylenol Supp) 650 mg Q6H PRN [place] PAIN LEVEL 1-3 OR FEVER Last administered on 06/09/16at 03:37; Admin Dose 650 MG; Start 06/03/16 at 17:00 Docusate Sodium (Colace) 100 mg Q12H PRN PO CONSTIPATION Last administered on 06/20/16at 22:25; Admin Dose 100 MG; Start 06/03/16 at 17:00 Magnesium Hydroxide (Milk Of Mag) 30 ml DAILY PRN PO CONSTIPATION Last administered on 06/20/16at 06:13; Admin Dose 30 ML; Start 06/03/16 at 17:00 Bisacodyl (Dulcolax) 5 mg DAILY PRN PO CONSTIPATION; Start 06/03/16 at 17:00 Bisacodyl (Dulcolax Supp) 10 mg DAILY PRN [place] CONSTIPATION Last administered on 06/21/16at 05:18; Admin Dose 10 MG; Start 06/03/16 at 17:00 Sodium Biphosphate/ Sodium Phosphate (Fleet Enema) 133 ml DAILY PRN [place] CONSTIPATION; Start 06/03/16 at 17:00 Enoxaparin Sodium (Lovenox) 30 mg DAILY SC Last administered on 06/12/16at 08: 27; Admin Dose 30 MG; Start 06/04/16 at 09:00; Status Future Hold Allopurinol (Zyloprim) 300 mg DAILY PO Last administered on 06/24/16 09:16; Admin Dose 300 MG; Start 06/04/16 at 09:00 Eye Lubricant (Artificial Tears Oph) 2 drop QID BOTH EYES Last administered on 06/24/16 12:24; Admin Dose 2 DROP; Start 06/03/16 at 21:00 Eye Lubricant (Akwa Oint) 1 applic DAILY BOTH EYES Last administered on 09:17; Admin Dose 1 APPLIC; Start 06/04/16 at 09:00 Gabapentin (Neurontin) 200 mg TID PO Last administered on 06/24/16 12:24; Admin Dose 200 MG; Start 06/03/16 at 21:00 Levothyroxine Sodium (Synthroid) 100 mcg DAILY@06 PO Last administered on 05:32; Admin Dose 100 MCG; Start 06/04/16 at 06:00 Mupirocin (Bactroban) 1 applic BID TOP Last administered on 06/24/16 09:17; Admin Dose 1 APPLIC; Start 06/04/16 at 21:00 Pantoprazole (Protonix Iv) 40 mg DAILY@06 IV Last administered on 06/24/16 05: 32; Admin Dose 40 MG; Start 06/09/16 at 06:00 Lorazepam 1 mg 1 mg Q6H PRN IV AGITATION/ANXIETY Last administered on 06/23/16 16:31; Admin Dose 1 MG; Start 06/08/16 at 18:00 Fluconazole (Diflucan 200 Mg/ NS (Pmx)) 100 ml @ 100 mls/hr Q24H IVPB Last administered on 06/24/16 05:03; Admin Dose 100 MLS/HR; Start 06/09/16 at 05:30 Acetaminophen/ Hydrocodone Bitart ([place] (5/325)) 1 tab Q6H PRN PO PAIN Last administered on 06/11/16at 17:38; Admin Dose 1 TAB; Start 06/11/16 at 17:30 Collagenase (Santyl) 1 applic DAILY TOP Last administered on 06/24/16 09:17; Admin Dose 1 APPLIC; Start 06/12/16 at 09:00 Trimethoprim/ Sulfamethoxazole (Bactrim (Ds)) 1 tab BID PO Last administered on 06/24/16 09:16; Admin Dose 1 TAB; Start 06/13/16 at 21:00 Nystatin 5 ml 5 ml QID PO Last administered on 06/24/16 12:24; Admin Dose 5 ML ; Start 06/18/16 at 17:00 Dextrose/Sodium Chloride (D5-NS) 1,000 ml @ 125 mls/hr Q8H IV Last administered on 06/24/16 05:04; Admin Dose 125 MLS/HR; Start 06/20/16 at 20:00 Scopolamine 1 patch 1 patch Q72H TRANSDERM Last administered on 06/22/16 20:28 ; Admin Dose 1 PATCH; Start 06/22/16 at 21:00 Cefepime HCl (Maxipime 1gm/50 ml (Pmx)) 50 ml @ 100 mls/hr Q12 IVPB Last administered on 06/24/16 15:01; Admin Dose 100 MLS/HR; Start 06/24/16 at 12:30 Lactobacillus Acidoph/Bulgaricus (Floranex) 1 tab TID PO Last administered on t 12:24; Admin Dose 1 TAB; Start 06/24/16 at 13:00 CHANDRIKA MERLOS M.D. Jun 24, 2016 15:15
[2016-06-24] MEDS: ONDANSETRON 4 MG INJ IV PRN (17:01)
--- NOTE | 2016-06-24 17:09 | PN ---
Date/Time of Note Date/Time of Note DATE: 06/24/16 TIME: 17:07 Assessment/Plan VTE Prophylaxis VTE Prophylaxis Intervention: other Lines/Catheters IV [facility]ter [facility] (from [facility]): PICC Line Central line still needed: Yes Urinary Cath still in place: No Assessment/Plan Chief Complaint/Hosp Course IMPRESSION: The patient has Burkitt's lymphoma status post tracheostomy, status post thyroid mass, status post pancytopenia, abnormal liver function test. The patient has PANCYTOPENIA, ON CHEMO SEPSIS gallstone ABN LFT better PLAN PER DR MERLOS per id per gi IV FLUID ck labs dr wylie to see called Problems: Subjective 24 Hr Interval Summary Cardiovascular: no complaints Gastrointestinal: decreased appetite, No diarrhea Genitourinary: no complaints Musculoskeletal: no complaints Exam/Review of Systems Vital Signs Vitals Vital Signs Date Time Temp Pulse Resp B/P Pulse Ox O2 Delivery O2 Flow Rate FiO2 06/24/16 16:41 96 20 98 Aerosol 5.0 28 06/24/16 09:15 99.1 06/24/16 07:58 118/68 Intake and Output 06/23/16 06/23/16 06/24/16 15:00 23:00 07:00 Intake Total 1375 ml 1762 ml 1300 ml Output Total 700 ml 600 ml 600 ml Balance 675 ml 1162 ml 700 ml Exam Neck: supple Respiratory: clear to auscultation Cardiovascular: regular rate and rhythm Gastrointestinal: soft Results Result Diagram: 06/24/16 0425 06/24/16 0425 Results 24 hrs Laboratory Tests Test 06/24/16 04:25 Alanine Aminotransferase (ALT/SGPT) 85 H Albumin 2.4 L Albumin/Globulin Ratio 1.20 Alkaline Phosphatase 101 Anion Gap 15 Anisocytosis 1+ Aspartate Amino Transf (AST/SGOT) 39 Band Neutrophils % 5.0 Blood Morphology Comment Blood Urea Nitrogen 2 L Calcium Level 8.2 L Carbon Dioxide Level 23 Chloride Level 107 Creatinine 0.31 L Direct Bilirubin 0.00 Globulin 2.00 Glucose Level 99 Hematocrit 21.3 L Hemoglobin 7.6 L Indirect Bilirubin 0.2 Lactate Dehydrogenase 592 Lymphocytes # 0.5 L Lymphocytes % 21.0 Mean Corpuscular Hemoglobin 29.9 Mean Corpuscular Hemoglobin Concent 35.5 Mean Corpuscular Volume 84.3 Mean Platelet Volume 9.2 Metamyelocytes # 0.0 Metamyelocytes % 2.0 H Monocytes # 0.2 L Monocytes % 10.0 Neutrophils # 1.4 L Neutrophils % 62.0 Platelet Count 26 #*L Platelet Estimate PLT APPEAR DECREASED Potassium Level 3.7 Red Blood Count 2.52 L Red Cell Distribution Width 15.1 H Sodium Level 141 Thyroid Stimulating Hormone (TSH) 0.165 L Total Bilirubin 0.2 Total Protein 4.4 L Uric Acid 1.3 L White Blood Count 2.3 #L Medications Medications Current Medications Acyclovir (Zovirax) 400 mg BID PO Last administered on 06/24/16 09:16; Admin Dose 400 MG; Start 06/02/16 at 14:30 Diphenhydramine HCl (Benadryl) 25 mg Q4H PRN IV ALLERGIC REACTION Last administered on 06/06/16 20:26; Admin Dose 25 MG; Start 06/02/16 at 18:30 Dexamethasone (Decadron) 10 mg Q4H PRN IV ALLERGIC REACTION; Start 06/02/16 at 18:30 Fluconazole 100 mg 100 mg DAILY PO Last administered on 06/08/16at 09:58; Admin Dose 100 MG; Start 06/03/16 at 09:00; Status Future Hold Ondansetron HCl/ Sodium Chloride (Zofran Inj/NS) 54 ml @ 216 mls/hr Q6H PRN IV NAUSEA AND/OR VOMITING Last administered on 06/21/16 21:18; Admin Dose 216 MLS/HR; Start 06/02/16 at 18:30 Ondansetron HCl (Zofran Inj) 4 mg Q6H PRN IV NAUSEA AND/OR VOMITING Last administered on 06/24/16 17:01; Admin Dose 4 MG; Start 06/03/16 at 17:00 Acetaminophen (Tylenol Tab) 650 mg Q6H PRN PO PAIN LEVEL 1-3 OR FEVER Last administered on 06/24/16 09:16; Admin Dose 650 MG; Start 06/03/16 at 17:00 Acetaminophen (Tylenol Supp) 650 mg Q6H PRN [place] PAIN LEVEL 1-3 OR FEVER Last administered on 06/09/16 03:37; Admin Dose 650 MG; Start 06/03/16 at 17:00 Docusate Sodium (Colace) 100 mg Q12H PRN PO CONSTIPATION Last administered on 06/20/16 22:25; Admin Dose 100 MG; Start 06/03/16 at 17:00 Magnesium Hydroxide (Milk Of Mag) 30 ml DAILY PRN PO CONSTIPATION Last administered on 06/20/16at 06:13; Admin Dose 30 ML; Start 06/03/16 at 17:00 Bisacodyl (Dulcolax) 5 mg DAILY PRN PO CONSTIPATION; Start 06/03/16 at 17:00 Bisacodyl (Dulcolax Supp) 10 mg DAILY PRN [place] CONSTIPATION Last administered on 06/21/16at 05:18; Admin Dose 10 MG; Start 06/03/16 at 17:00 Sodium Biphosphate/ Sodium Phosphate (Fleet Enema) 133 ml DAILY PRN [place] CONSTIPATION; Start 06/03/16 at 17:00 Enoxaparin Sodium (Lovenox) 30 mg DAILY SC Last administered on 06/12/16at 08: 27; Admin Dose 30 MG; Start 06/04/16 at 09:00; Status Future Hold Allopurinol (Zyloprim) 300 mg DAILY PO Last administered on 06/24/16 09:16; Admin Dose 300 MG; Start 06/04/16 at 09:00 Eye Lubricant (Artificial Tears Oph) 2 drop QID BOTH EYES Last administered on 06/24/16 16:55; Admin Dose 2 DROP; Start 06/03/16 at 21:00 Eye Lubricant (Akwa Oint) 1 applic DAILY BOTH EYES Last administered on 09:17; Admin Dose 1 APPLIC; Start 06/04/16 at 09:00 Gabapentin (Neurontin) 200 mg TID PO Last administered on 06/24/16 12:24; Admin Dose 200 MG; Start 06/03/16 at 21:00 Levothyroxine Sodium (Synthroid) 100 mcg DAILY@06 PO Last administered on 05:32; Admin Dose 100 MCG; Start 06/04/16 at 06:00 Pantoprazole (Protonix Iv) 40 mg DAILY@06 IV Last administered on 06/24/16 05: 32; Admin Dose 40 MG; Start 06/09/16 at 06:00 Lorazepam 1 mg 1 mg Q6H PRN IV AGITATION/ANXIETY Last administered on 06/23/16 16:31; Admin Dose 1 MG; Start 06/08/16 at 18:00 Fluconazole (Diflucan 200 Mg/ NS (Pmx)) 100 ml @ 100 mls/hr Q24H IVPB Last administered on 06/24/16 05:03; Admin Dose 100 MLS/HR; Start 06/09/16 at 05:30 Acetaminophen/ Hydrocodone Bitart ([place] (5/325)) 1 tab Q6H PRN PO PAIN Last administered on 06/11/16at 17:38; Admin Dose 1 TAB; Start 06/11/16 at 17:30 Collagenase (Santyl) 1 applic DAILY TOP Last administered on 06/24/16 09:17; Admin Dose 1 APPLIC; Start 06/12/16 at 09:00 Trimethoprim/ Sulfamethoxazole (Bactrim (Ds)) 1 tab BID PO Last administered on 06/24/16 09:16; Admin Dose 1 TAB; Start 06/13/16 at 21:00 Nystatin 5 ml 5 ml QID PO Last administered on 06/24/16 16:55; Admin Dose 5 ML ; Start 06/18/16 at 17:00 Dextrose/Sodium Chloride (D5-NS) 1,000 ml @ 125 mls/hr Q8H IV Last administered on 06/24/16 05:04; Admin Dose 125 MLS/HR; Start 06/20/16 at 20:00 Scopolamine 1 patch 1 patch Q72H TRANSDERM Last administered on 06/22/16 20:28 ; Admin Dose 1 PATCH; Start 06/22/16 at 21:00 Cefepime HCl (Maxipime 1gm/50 ml (Pmx)) 50 ml @ 100 mls/hr Q12 IVPB Last administered on 06/24/16 15:01; Admin Dose 100 MLS/HR; Start 06/24/16 at 12:30 Lactobacillus Acidoph/Bulgaricus (Floranex) 1 tab TID PO Last administered on 12:24; Admin Dose 1 TAB; Start 06/24/16 at 13:00 GUERLINE SULLIVAN MD Jun 24, 2016 17:08
[2016-06-24 19:30] VITALS: BP 128/62; RESP 18
[2016-06-24 20:15] VITALS: BP 128/62; PULSE 101; RESP 18
[2016-06-25] MEDS: DEXTROSE 5%-0.9% NACL 1,000 ML IV SCH ×4 (01:30→22:24)
[2016-06-25] MEDS: ALBUTEROL/IPRATROPIUM (NEB) 3 ML AMP HHN SCH ×6 (01:53→20:36)
[2016-06-25] MEDS: FLUCONAZOLE 200 MG/NS (PMX) 100 ML IVPB SCH (05:04)
[2016-06-25] MEDS: LEVOTHYROXINE 100 MCG TAB PO SCH (05:56)
[2016-06-25] MEDS: PANTOPRAZOLE 40 MG INJ IV SCH (05:56)
[2016-06-25 06:31] LABS: BASOPHILS % 0.8 % (0.0-2.0); EOSINOPHILS % 0.3 % (0.0-7.0); HEMATOCRIT 22.5 % (37.0-47.0); HEMOGLOBIN 7.9 g/dl (12.0-16.0); LYMPHOCYTES # 0.5 10^3/ul (0.8-2.9); LYMPHOCYTES % 21.7 % (15.0-51.0); MEAN CORPUSCULAR HEMOGLOBIN 29.4 pg (29.0-33.0); MEAN CORPUSCULAR HGB CONC 34.9 g/dl (32.0-37.0); MEAN CORPUSCULAR VOLUME 84.3 fl (82.0-101.0); MEAN PLATELET VOLUME 9.8 fl (7.4-10.4); MONOCYTE # 0.3 10^3/ul (0.3-0.9); MONOCYTES % 13.1 % (0.0-11.0); NEUTROPHIL # 1.4 10^3/ul (1.6-7.5); NEUTROPHILS % 64.1 % (39.0-77.0); RED BLOOD COUNT 2.67 10^6/ul (4.20-5.40); UNCORRECTED WBC 2.1 10^3/ul (4.8-10.8); WHITE BLOOD COUNT 2.1 10^3/ul (4.8-10.8)
[2016-06-25 06:32] LABS: ALBUMIN 2.3 g/dl (3.3-4.9); CHLORIDE 107 mmol/L (97-110); SODIUM 138 mmol/L (135-144)
[2016-06-25 06:33] LABS: POTASSIUM 3.2 mmol/L (3.5-5.1)
[2016-06-25 06:35] LABS: ALANINE AMINOTRANSFERASE 67 IU/L (13-69); ALKALINE PHOSPHATASE 98 IU/L (42-121); ANION GAP 11 (8-16); ASPARTATE AMINO TRANSFERASE 30 IU/L (15-46); BILIRUBIN,INDIRECT 0.1 mg/dl (0-1.1); BILIRUBIN,TOTAL 0.1 mg/dl (0.2-1.3); CALCIUM 7.8 mg/dl (8.4-10.2); CARBON DIOXIDE 23 mmol/L (21-31); CREATININE 0.31 mg/dl (0.44-1.00); GLUCOSE 87 mg/dl (70-220); TOTAL PROTEIN 4.6 g/dl (6.1-8.1); URIC ACID 1.3 mg/dl (3.1-7.9)
[2016-06-25 06:36] LABS: LACTATE DEHYDROGENASE 608 IU/L (313-618)
[2016-06-25 06:46] LABS: CONDITION 1; LH ANALYZER COMMENTS 1; SUSPECT 1
[2016-06-25 06:47] LABS: PLATELET COUNT 17 10^3/UL (140-440)
[2016-06-25 06:48] LABS: BLOOD UREA NITROGEN < 2 mg/dl (7-20)
--- NOTE | 2016-06-25 06:53 | PN ---
DATE: 06/24/2016 SUBJECTIVE: The patient is alert, feels good, looks comfortable. Sister at bedside. The patient i s eating. She is in no distress. VITAL SIGNS: T-max yesterday was 100.5, T-current 99.1. WBC 2.3, platelets 26. BUN 2, creatinine 0.31. DIAGNOSTICS: Liver ultrasound revealed cholelithiasis with 3 cm calcified gallstone within the neck of the bladder versus liver calcification adjacent to the neck of the gallbladder, otherwise unrema rkable. Chest x-ray revealed persistent elevation with right hemidiaphragm with right basilar atele ctasis. INDWELLINGS: Left upper extremity PICC line and tracheostomy. ANTIMICROBIALS: 1. Oral Bactrim 2. Fluconazole. 3. Acyclovir. 4. Oral nystatin. 5. Topical Bactroban to nares. PHYSICAL EXAMINATION: GENERAL: This is a fragile, well-developed, middle-aged woman who is alert, in no distress. HEENT: Head atraumatic, normocephalic. Sclerae anicteric. Buccal mucosa dry. NECK: Supple. Tracheostomy present. CHEST: Rise symmetrical. Breath sounds with scattered rhonchi. HEART: S1, S2. ABDOMEN: Soft. Bowel tones present. EXTREMITIES: Without cyanosis or edema. ASSESSMENT: 1. Low-grade fevers, possible tracheobronchitis. 2. Methicillin-resistant Staphylococcus aureus nares colonization and methicillin-resistant Staphyl ococcus aureus-positive sputum status post vancomycin, now on oral Bactrim. 3. Status post coagulase-negative staphylococcus bacteremia on admission, consistent with a contami nant. 4. Stage IIA Burkitt's lymphoma, in chemotherapy. 5. Respiratory failure, status post tracheostomy secondary to neck mass causing tracheal compressio n and airway compromise. 6. Oral thrush. 7. Pancytopenia. PLAN: The patient remains stable with low-grade fevers. We are going to start her on cefepime for concern of tracheobronchitis and given the right-sided atelectasis. Repeat sputum cultures. Follow chest x-rays and panculture p.r.n. if she spikes fever of 101 and above. Continue on probiotics. Dictated By: RODRÍGUEZ ERAZO CORE EXTRUDER for JILLIAN CUEVAS/YUNI Conf#: [id number] [facility]#: [id number]
[2016-06-25 08:18] VITALS: BP 110/58; RESP 20
[2016-06-25] MEDS: CEFEPIME 1GM/50 ML (PMX) 50 ML IVPB SCH ×2 (09:20→21:27)
[2016-06-25] MEDS: LACTOBACILLUS CHEW TAB PO SCH ×3 (09:22→21:28)
[2016-06-25] MEDS: GABAPENTIN 100 MG CAP PO SCH ×3 (09:22→21:28)
[2016-06-25] MEDS: ALLOPURINOL 300 MG TAB PO SCH (09:22)
[2016-06-25] MEDS: ARTIFICIAL TEARS 15 ML OPH BOTH EYES SCH ×4 (09:22→21:28)
[2016-06-25] MEDS: NYSTATIN SUSP 5 ML CUP PO SCH ×4 (09:22→21:29)
[2016-06-25] MEDS: TRIMETHOPRIM/SULFAMETHOX (DS) TAB PO SCH ×2 (09:22→21:28)
[2016-06-25] MEDS: ACYCLOVIR 400 MG TAB PO SCH ×2 (09:22→21:29)
[2016-06-25] MEDS: OCULAR LUBRICANT 3.5 GM OPH OINT BOTH EYES SCH (09:22)
[2016-06-25] MEDS: COLLAGENASE 30 GM TUBE TOP SCH (09:23)
--- NOTE | 2016-06-25 12:02 | PN ---
DATE: 06/25/2016 SUBJECTIVE: Patient is alert, feels better today, looks comfortable, still had a low grade fever la st night and this morning she is afebrile. Denies pain, discomfort. Appetite is good. WBC today 2 .1, platelets 17. No shift. BUN 2, creatinine 0.31. MICROBIOLOGY: Endotracheal aspirate growing Staphylococcus aureus preliminary. ANTIMICROBIALS:. The patient is on: 1. Cefepime. 2. Bactrim. 3. Oral nystatin. 4. Fluconazole. 5. Acyclovir. INDWELLINGS: Trach, left upper extremity PICC line. PHYSICAL EXAMINATION: GENERAL: Well-developed, middle-aged [place] woman who is alert, in no distress. HEENT: Head atraumatic, normocephalic. Sclerae anicteric. Buccal mucosa pink, dry. NECK: Supple. Tracheostomy present. CHEST: Rise symmetrical. Breath sounds clear, diminished to bases. HEART: S1, S2. ABDOMEN: Soft, bowel tones present. EXTREMITIES: Without cyanosis. ASSESSMENT: 1. Systemic inflammatory response syndrome with low grade fevers likely secondary to #2. 2. Tracheobronchitis. Cefepime was added yesterday, patient remains on Bactrim. 3. MRSA. aureus positive nares colonization and sputum. 4. Stage IIa Burkitt's lymphoma, on chemo. 5. Respiratory failure secondary to neck mass, status post tracheostomy. 6. Pancytopenia. PLAN: The patient remains stable, overall doing better today. Continue present care, antibiotics, chemotherapy per oncology. Dictated By: RODRÍGUEZ ERAZO PHOTOGRAPH EDITOR for JILLIAN UCEVAS/YUNI Conf#: [id number] DID#: [id number]
--- NOTE | 2016-06-25 12:58 | CONS ---
Date/Time of Note Date/Time of Note DATE: 06/25/16 TIME: 12:55 Assessment/Plan Assessment/Plan Chief Complaint/Hosp Course 56 yo female with massive neck mass causing tracheal compression and airway compromise s/p tracheostomy placement. 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 Pt was given cycle 1A and 1B of R HyperCVAD but had only a partial response to therapy and severe side effects. We have thus changed her chemotherapy regimen. She is now being admitted for cycle 1 of R-CODOX-M and has now completed her chemotherapy. Most recent CT neck showed resolution of the mass. Problems: Additional Assessment/Plan # Burkitt's lymphoma -s/p cycle 1 R CODOX -M -Rituximab (Rituxan) as follows: * Cycle 1: 375 mg/m2 (660mg) IV on Day 1 -Cyclophosphamide (Cytoxan) 800 mg/m2 ( 1415mg) IV once per day on days 1 & 2 -Vincristine (Oncovin) 1.0 mg (dose reduced for neuropathy) days 1 & 15 . given on 06/17 -Doxorubicin (Adriamycin) 50 mg/m2 (88mg) IV once on day 1 -Methotrexate (MTX) 100mg/m2 (175mg) IV over 1 hour then 900mg/m2 (1590mg) over 23 hours on day 15. will start IVF with 2 amps Na HCo3 prior to MTX infusion since Urine Ph > 7.0. Leucovorin 25mg IV q 4 hours will start 36 hours after MTX starts until MTX level is < 0.05. next dose due today 06/16. Methotrexate at 72 hours is 0.05, which is at goal. Can stop bicarb and leucovorin, can stop checking urine pH. - Patient complaining of feeling of tightness around trach cannula. RT already evaluated patient. Discussed with Dr. Curran, given oxygenation adequate, will continue to monitor. Repeat CT neck 06/20 shows no stenosis, overall stable findings. Consider ENT consult if worsens. Currently resolved, may be related to mucous plugging, improved after suctioning per nurse. # Neutropenic fever -pt is now afebrile and will dc precautions -ANC 1400. can dc Neupogen for now -continue antibiotics. # Supportive Care and prophylactic meds -Started Acyclovir 400mg BID -fluconazole 100mg q day -Neupogen 300mcg q day -Zofran ordered prn nausea #Expected Pancytopenia -keep Hg> 8 and platelets > 10. pt to get 1 units of prbc today # Elevated AST and ALT, likely related to methotrexate. Monitor. 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 all steroids should be discontinued for now unless they are part of the chemotherapy regimen -continue to work with physical therapy. 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 -uric acid level ok Approximately 40 min were spent at patient's bedside and in coordination of her care Consultation Date/Type/Reason Admit Date/Time Jun 02, 2016 at 15:10 Initial Consult Date 06/02/16 Type of Consultation: Hematology Reason for Consultation Burkitt's lymphoma Referring Provider: TELLY SOLANO MD 24 HR Interval Summary Free Text/Dictation no acute overnight events Exam/Review of Systems Vital Signs Vitals Vital Signs Date Time Temp Pulse Resp B/P Pulse Ox O2 Delivery O2 Flow Rate FiO2 06/25/16 12:47 96 20 98 Aerosol 5.0 28 06/25/16 08:18 98.5 110/58 Intake and Output 06/24/16 06/24/16 06/25/16 15:00 23:00 07:00 Intake Total 1465 ml 1650 ml Balance 1465 ml 1650 ml Exam Constitutional: alert, oriented Psych: no complaints Head: normocephalic Eyes: nl conjunctiva ENMT: other (trach in place) Neck: masses (no masses felt), non-tender, supple Respiratory: clear to auscultation, normal air movement Cardiovascular: nl pulses, regular rate and rhythm Gastrointestinal: nl liver, spleen, soft Musculoskeletal: nl extremities to inspection, nl gait and stance Extremities: normal pulses Results Result Diagram: 06/25/1644006/25/16440 Results 24 hrs Laboratory Tests Test 06/25/16 04:41 Alanine Aminotransferase (ALT/SGPT) 67 Albumin 2.3 L Albumin/Globulin Ratio 1.00 Alkaline Phosphatase 98 Anion Gap 11 Aspartate Amino Transf (AST/SGOT) 30 Basophils # 0.0 Basophils % 0.8 Blood Morphology Comment Blood Urea Nitrogen < 2 L Calcium Level 7.8 L Carbon Dioxide Level 23 Chloride Level 107 Creatinine 0.31 L Direct Bilirubin 0.00 Eosinophils # 0.0 Eosinophils % 0.3 Globulin 2.30 Glucose Level 87 Hematocrit 22.5 L Hemoglobin 7.9 L Indirect Bilirubin 0.1 Lactate Dehydrogenase 608 Lymphocytes # 0.5 L Lymphocytes % 21.7 Mean Corpuscular Hemoglobin 29.4 Mean Corpuscular Hemoglobin Concent 34.9 Mean Corpuscular Volume 84.3 Mean Platelet Volume 9.8 Monocytes # 0.3 Monocytes % 13.1 H Neutrophils # 1.4 L Neutrophils % 64.1 Nucleated Red Blood Cells # 0.0 Nucleated Red Blood Cells % 0.0 Platelet Count 17 #*L Potassium Level 3.2 L Red Blood Count 2.67 L Red Cell Distribution Width 16.0 H Sodium Level 138 Total Bilirubin 0.1 L Total Protein 4.6 L Uric Acid 1.3 L White Blood Count 2.1 L Medications Medications Current Medications Acyclovir (Zovirax) 400 mg BID PO Last administered on 06/25/16 09:22; Admin Dose 400 MG; Start 06/02/16 at 14:30 Diphenhydramine HCl (Benadryl) 25 mg Q4H PRN IV ALLERGIC REACTION Last administered on 06/06/16at 20:26; Admin Dose 25 MG; Start 06/02/16 at 18:30 Dexamethasone (Decadron) 10 mg Q4H PRN IV ALLERGIC REACTION; Start 06/02/16 at 18:30 Fluconazole 100 mg 100 mg DAILY PO Last administered on 06/08/16at 09:58; Admin Dose 100 MG; Start 06/03/16 at 09:00; Status Future Hold Ondansetron HCl/ Sodium Chloride (Zofran Inj/NS) 54 ml @ 216 mls/hr Q6H PRN IV NAUSEA AND/OR VOMITING Last administered on 06/21/16at 21:18; Admin Dose 216 MLS/HR; Start 06/02/16 at 18:30 Ondansetron HCl (Zofran Inj) 4 mg Q6H PRN IV NAUSEA AND/OR VOMITING Last administered on 06/24/16 17:01; Admin Dose 4 MG; Start 06/03/16 at 17:00 Acetaminophen (Tylenol Tab) 650 mg Q6H PRN PO PAIN LEVEL 1-3 OR FEVER Last administered on 06/24/16 09:16; Admin Dose 650 MG; Start 06/03/16 at 17:00 Acetaminophen (Tylenol Supp) 650 mg Q6H PRN [place] PAIN LEVEL 1-3 OR FEVER Last administered on 06/09/16 03:37; Admin Dose 650 MG; Start 06/03/16 at 17:00 Docusate Sodium (Colace) 100 mg Q12H PRN PO CONSTIPATION Last administered on 06/20/16 22:25; Admin Dose 100 MG; Start 06/03/16 at 17:00 Magnesium Hydroxide (Milk Of Mag) 30 ml DAILY PRN PO CONSTIPATION Last administered on 06/20/16 06:13; Admin Dose 30 ML; Start 06/03/16 at 17:00 Bisacodyl (Dulcolax) 5 mg DAILY PRN PO CONSTIPATION; Start 06/03/16 at 17:00 Bisacodyl (Dulcolax Supp) 10 mg DAILY PRN [place] CONSTIPATION Last administered on 06/21/16 05:18; Admin Dose 10 MG; Start 06/03/16 at 17:00 Sodium Biphosphate/ Sodium Phosphate (Fleet Enema) 133 ml DAILY PRN [place] CONSTIPATION; Start 06/03/16 at 17:00 Enoxaparin Sodium (Lovenox) 30 mg DAILY SC Last administered on 06/12/16at 08: 27; Admin Dose 30 MG; Start 06/04/16 at 09:00; Status Future Hold Allopurinol (Zyloprim) 300 mg DAILY PO Last administered on 06/25/16 09:22; Admin Dose 300 MG; Start 06/04/16 at 09:00 Eye Lubricant (Artificial Tears Oph) 2 drop QID BOTH EYES Last administered on 06/25/16 12:25; Admin Dose 2 DROP; Start 06/03/16 at 21:00 Eye Lubricant (Akwa Oint) 1 applic DAILY BOTH EYES Last administered on 09:22; Admin Dose 1 APPLIC; Start 06/04/16 at 09:00 Gabapentin (Neurontin) 200 mg TID PO Last administered on 06/25/16 12:24; Admin Dose 200 MG; Start 06/03/16 at 21:00 Levothyroxine Sodium (Synthroid) 100 mcg DAILY@06 PO Last administered on 05:56; Admin Dose 100 MCG; Start 06/04/16 at 06:00 Pantoprazole (Protonix Iv) 40 mg DAILY@06 IV Last administered on 06/25/16 05: 56; Admin Dose 40 MG; Start 06/09/16 at 06:00 Lorazepam 1 mg 1 mg Q6H PRN IV AGITATION/ANXIETY Last administered on 06/23/16 16:31; Admin Dose 1 MG; Start 06/08/16 at 18:00 Fluconazole (Diflucan 200 Mg/ NS (Pmx)) 100 ml @ 100 mls/hr Q24H IVPB Last administered on 06/25/16 05:04; Admin Dose 100 MLS/HR; Start 06/09/16 at 05:30 Acetaminophen/ Hydrocodone Bitart ([place] (5/325)) 1 tab Q6H PRN PO PAIN Last administered on 06/11/16at 17:38; Admin Dose 1 TAB; Start 06/11/16 at 17:30 Collagenase (Santyl) 1 applic DAILY TOP Last administered on 06/25/16 09:23; Admin Dose 1 APPLIC; Start 06/12/16 at 09:00 Trimethoprim/ Sulfamethoxazole (Bactrim (Ds)) 1 tab BID PO Last administered on 06/25/16 09:22; Admin Dose 1 TAB; Start 06/13/16 at 21:00 Nystatin 5 ml 5 ml QID PO Last administered on 06/25/16 12:24; Admin Dose 5 ML ; Start 06/18/16 at 17:00 Dextrose/Sodium Chloride (D5-NS) 1,000 ml @ 125 mls/hr Q8H IV Last administered on 06/25/16 12:23; Admin Dose 125 MLS/HR; Start 06/20/16 at 20:00 Scopolamine 1 patch 1 patch Q72H TRANSDERM Last administered on 06/22/16 20:28 ; Admin Dose 1 PATCH; Start 06/22/16 at 21:00 Cefepime HCl (Maxipime 1gm/50 ml (Pmx)) 50 ml @ 100 mls/hr Q12 IVPB Last administered on 06/25/16 09:20; Admin Dose 100 MLS/HR; Start 06/24/16 at 12:30 Lactobacillus Acidoph/Bulgaricus (Floranex) 1 tab TID PO Last administered on 12:24; Admin Dose 1 TAB; Start 06/24/16 at 13:00 CHANDRIKA MERLOS M.D. Jun 25, 2016 12:58
[2016-06-25] MEDS ORDERED: POTASSIUM CHLORIDE 250 ML IVPB ONE (17:00)
--- NOTE | 2016-06-25 19:09 | PN ---
Date/Time of Note Date/Time of Note DATE: 06/25/16 TIME: 19:08 Assessment/Plan VTE Prophylaxis VTE Prophylaxis Intervention: other Lines/Catheters IV [facility]ter Type (from [email or web address] PICC Line Central line still needed: Yes Urinary Cath still in place: No Assessment/Plan Chief Complaint/Hosp Course IMPRESSION: The patient has Burkitt's lymphoma status post tracheostomy, status post thyroid mass, status post pancytopenia, abnormal liver function test. The patient has PANCYTOPENIA, ON CHEMO SEPSIS gallstone ABN LFT better PLAN PER DR MERLOS per id per gi IV FLUID ck labs KCL Problems: Subjective 24 Hr Interval Summary Respiratory: no complaints Cardiovascular: no complaints Gastrointestinal: no complaints Exam/Review of Systems Vital Signs Vitals Vital Signs Date Time Temp Pulse Resp B/P Pulse Ox O2 Delivery O2 Flow Rate FiO2 06/25/16 17:30 91 16 98 Aerosol 5.0 06/25/16 12:47 28 06/25/16 08:18 98.5 110/58 Intake and Output 06/24/16 06/24/16 06/25/16 15:00 23:00 07:00 Intake Total 1465 ml 1650 ml Balance 1465 ml 1650 ml Exam Respiratory: clear to auscultation Cardiovascular: regular rate and rhythm Gastrointestinal: soft Musculoskeletal: nl extremities to inspection Extremities: normal pulses Results Result Diagram: 06/25/1644006/25/16 0441 Results 24 hrs Laboratory Tests Test 06/25/16 04:41 Alanine Aminotransferase (ALT/SGPT) 67 Albumin 2.3 L Albumin/Globulin Ratio 1.00 Alkaline Phosphatase 98 Anion Gap 11 Aspartate Amino Transf (AST/SGOT) 30 Basophils # 0.0 Basophils % 0.8 Blood Morphology Comment Blood Urea Nitrogen < 2 L Calcium Level 7.8 L Carbon Dioxide Level 23 Chloride Level 107 Creatinine 0.31 L Direct Bilirubin 0.00 Eosinophils # 0.0 Eosinophils % 0.3 Globulin 2.30 Glucose Level 87 Hematocrit 22.5 L Hemoglobin 7.9 L Indirect Bilirubin 0.1 Lactate Dehydrogenase 608 Lymphocytes # 0.5 L Lymphocytes % 21.7 Mean Corpuscular Hemoglobin 29.4 Mean Corpuscular Hemoglobin Concent 34.9 Mean Corpuscular Volume 84.3 Mean Platelet Volume 9.8 Monocytes # 0.3 Monocytes % 13.1 H Neutrophils # 1.4 L Neutrophils % 64.1 Nucleated Red Blood Cells # 0.0 Nucleated Red Blood Cells % 0.0 Platelet Count 17 #*L Potassium Level 3.2 L Red Blood Count 2.67 L Red Cell Distribution Width 16.0 H Sodium Level 138 Total Bilirubin 0.1 L Total Protein 4.6 L Uric Acid 1.3 L White Blood Count 2.1 L Medications Medications Current Medications Acyclovir (Zovirax) 400 mg BID PO Last administered on 06/25/16 09:22; Admin Dose 400 MG; Start 06/02/16 at 14:30 Diphenhydramine HCl (Benadryl) 25 mg Q4H PRN IV ALLERGIC REACTION Last administered on 06/06/16at 20:26; Admin Dose 25 MG; Start 06/02/16 at 18:30 Dexamethasone (Decadron) 10 mg Q4H PRN IV ALLERGIC REACTION; Start 06/02/16 at 18:30 Fluconazole 100 mg 100 mg DAILY PO Last administered on 06/08/16at 09:58; Admin Dose 100 MG; Start 06/03/16 at 09:00; Status Future Hold Ondansetron HCl/ Sodium Chloride (Zofran Inj/NS) 54 ml @ 216 mls/hr Q6H PRN IV NAUSEA AND/OR VOMITING Last administered on 06/21/16 21:18; Admin Dose 216 MLS/HR; Start 06/02/16 at 18:30 Ondansetron HCl (Zofran Inj) 4 mg Q6H PRN IV NAUSEA AND/OR VOMITING Last administered on 06/24/16 17:01; Admin Dose 4 MG; Start 06/03/16 at 17:00 Acetaminophen (Tylenol Tab) 650 mg Q6H PRN PO PAIN LEVEL 1-3 OR FEVER Last administered on 06/24/16 09:16; Admin Dose 650 MG; Start 06/03/16 at 17:00 Acetaminophen (Tylenol Supp) 650 mg Q6H PRN [place] PAIN LEVEL 1-3 OR FEVER Last administered on 06/09/16at 03:37; Admin Dose 650 MG; Start 06/03/16 at 17:00 Docusate Sodium (Colace) 100 mg Q12H PRN PO CONSTIPATION Last administered on 06/20/16 22:25; Admin Dose 100 MG; Start 06/03/16 at 17:00 Magnesium Hydroxide (Milk Of Mag) 30 ml DAILY PRN PO CONSTIPATION Last administered on 06/20/16at 06:13; Admin Dose 30 ML; Start 06/03/16 at 17:00 Bisacodyl (Dulcolax) 5 mg DAILY PRN PO CONSTIPATION; Start 06/03/16 at 17:00 Bisacodyl (Dulcolax Supp) 10 mg DAILY PRN [place] CONSTIPATION Last administered on 06/21/16at 05:18; Admin Dose 10 MG; Start 06/03/16 at 17:00 Sodium Biphosphate/ Sodium Phosphate (Fleet Enema) 133 ml DAILY PRN [place] CONSTIPATION; Start 06/03/16 at 17:00 Enoxaparin Sodium (Lovenox) 30 mg DAILY SC Last administered on 06/12/16 08: 27; Admin Dose 30 MG; Start 06/04/16 at 09:00; Status Future Hold Allopurinol (Zyloprim) 300 mg DAILY PO Last administered on 06/25/16 09:22; Admin Dose 300 MG; Start 06/04/16 at 09:00 Eye Lubricant (Artificial Tears Oph) 2 drop QID BOTH EYES Last administered on 06/25/16 17:14; Admin Dose 2 DROP; Start 06/03/16 at 21:00 Eye Lubricant (Akwa Oint) 1 applic DAILY BOTH EYES Last administered on 09:22; Admin Dose 1 APPLIC; Start 06/04/16 at 09:00 Gabapentin (Neurontin) 200 mg TID PO Last administered on 06/25/16 12:24; Admin Dose 200 MG; Start 06/03/16 at 21:00 Levothyroxine Sodium (Synthroid) 100 mcg DAILY@06 PO Last administered on 05:56; Admin Dose 100 MCG; Start 06/04/16 at 06:00 Pantoprazole (Protonix Iv) 40 mg DAILY@06 IV Last administered on 06/25/16 05: 56; Admin Dose 40 MG; Start 06/09/16 at 06:00 Lorazepam 1 mg 1 mg Q6H PRN IV AGITATION/ANXIETY Last administered on 06/23/16 16:31; Admin Dose 1 MG; Start 06/08/16 at 18:00 Fluconazole (Diflucan 200 Mg/ NS (Pmx)) 100 ml @ 100 mls/hr Q24H IVPB Last administered on 06/25/16 05:04; Admin Dose 100 MLS/HR; Start 06/09/16 at 05:30 Acetaminophen/ Hydrocodone Bitart ([place] (5/325)) 1 tab Q6H PRN PO PAIN Last administered on 06/11/16at 17:38; Admin Dose 1 TAB; Start 06/11/16 at 17:30 Collagenase (Santyl) 1 applic DAILY TOP Last administered on 06/25/16 09:23; Admin Dose 1 APPLIC; Start 06/12/16 at 09:00 Trimethoprim/ Sulfamethoxazole (Bactrim (Ds)) 1 tab BID PO Last administered on 06/25/16 09:22; Admin Dose 1 TAB; Start 06/13/16 at 21:00 Nystatin 5 ml 5 ml QID PO Last administered on 06/25/16 17:13; Admin Dose 5 ML ; Start 06/18/16 at 17:00 Dextrose/Sodium Chloride (D5-NS) 1,000 ml @ 125 mls/hr Q8H IV Last administered on 06/25/16 12:23; Admin Dose 125 MLS/HR; Start 06/20/16 at 20:00 Scopolamine 1 patch 1 patch Q72H TRANSDERM Last administered on 06/22/16 20:28 ; Admin Dose 1 PATCH; Start 06/22/16 at 21:00 Cefepime HCl (Maxipime 1gm/50 ml (Pmx)) 50 ml @ 100 mls/hr Q12 IVPB Last administered on 06/25/16 09:20; Admin Dose 100 MLS/HR; Start 06/24/16 at 12:30 Lactobacillus Acidoph/ [place]icus 1 tab 1 tab TID PO Last administered on 12:24; Admin Dose 1 TAB; Start 06/24/16 at 13:00 Potassium Chloride (KCl 40 MEQ/250 ML NS) 250 ml @ 62.5 mls/hr ONCE ONCE IVPB Last administered on 06/25/16 17:14; Admin Dose 62.5 MLS/HR; Start 06/25/16 at 17:00; Stop 06/25/16 at 20:59 GUERLINE SULLIVAN MD Jun 25, 2016 19:09
--- NOTE | 2016-06-25 20:45 | CONS ---
Date/Time of Note Date/Time of Note DATE: 06/25/16 TIME: 20:44 Assessment/Plan Assessment/Plan Additional Assessment/Plan Impression: 1. elevated transaminases: likley secondary to hepatotoxic medication such as methotrexate as it is temporally correlated with elevated transaminases. Need to r/o other causes eg rhypo or hyper thyroidism, autoimmune. Viral hepatitis r/ o. Transaminases down-trending. 2. Burkitt's lymphoma status post tracheostomy 3. status post thyroid mass: r/o hypo or hyper thyroidism as it can cause hepatotoxicity. 4. chemo induced pancytopenia 5. SEPSIS 6. gallstone: there is no elevated bilirubin and no biliary duct dilation. PLAN 1. elevated LFT likely due to methotrexate. all improved and now back to normal 2. trend transaminases 3. screening test with ELIAZAR and SMA to screening for autoimmune hepatitis Consultation Date/Type/Reason Admit Date/Time Jun 02, 2016 at 15:10 Initial Consult Date 06/02/16 Type of Consultation: Hematology Referring Provider: TELLY SOLANO MD 24 HR Interval Summary Constitutional: no complaints Exam/Review of Systems Vital Signs Vitals Vital Signs Date Time Temp Pulse Resp B/P Pulse Ox O2 Delivery O2 Flow Rate FiO2 06/25/16 20:36 5.0 28 06/25/16 20:36 88 18 97 Aerosol 06/25/16 08:18 98.5 110/58 Intake and Output 06/24/16 06/24/16 06/25/16 15:00 23:00 07:00 Intake Total 1465 ml 1650 ml Balance 1465 ml 1650 ml Results Result Diagram: 06/25/16 04406/25/16 0441 Results 24 hrs Laboratory Tests Test 06/25/16 04:41 Alanine Aminotransferase (ALT/SGPT) 67 Albumin 2.3 L Albumin/Globulin Ratio 1.00 Alkaline Phosphatase 98 Anion Gap 11 Aspartate Amino Transf (AST/SGOT) 30 Basophils # 0.0 Basophils % 0.8 Blood Morphology Comment Blood Urea Nitrogen < 2 L Calcium Level 7.8 L Carbon Dioxide Level 23 Chloride Level 107 Creatinine 0.31 L Direct Bilirubin 0.00 Eosinophils # 0.0 Eosinophils % 0.3 Globulin 2.30 Glucose Level 87 Hematocrit 22.5 L Hemoglobin 7.9 L Indirect Bilirubin 0.1 Lactate Dehydrogenase 608 Lymphocytes # 0.5 L Lymphocytes % 21.7 Mean Corpuscular Hemoglobin 29.4 Mean Corpuscular Hemoglobin Concent 34.9 Mean Corpuscular Volume 84.3 Mean Platelet Volume 9.8 Monocytes # 0.3 Monocytes % 13.1 H Neutrophils # 1.4 L Neutrophils % 64.1 Nucleated Red Blood Cells # 0.0 Nucleated Red Blood Cells % 0.0 Platelet Count 17 #*L Potassium Level 3.2 L Red Blood Count 2.67 L Red Cell Distribution Width 16.0 H Sodium Level 138 Total Bilirubin 0.1 L Total Protein 4.6 L Uric Acid 1.3 L White Blood Count 2.1 L Medications Medications Current Medications Acyclovir (Zovirax) 400 mg BID PO Last administered on 06/25/16 09:22; Admin Dose 400 MG; Start 06/02/16 at 14:30 Diphenhydramine HCl (Benadryl) 25 mg Q4H PRN IV ALLERGIC REACTION Last administered on 06/06/16at 20:26; Admin Dose 25 MG; Start 06/02/16 at 18:30 Dexamethasone (Decadron) 10 mg Q4H PRN IV ALLERGIC REACTION; Start 06/02/16 at 18:30 Fluconazole 100 mg 100 mg DAILY PO Last administered on 06/08/16at 09:58; Admin Dose 100 MG; Start 06/03/16 at 09:00; Status Future Hold Ondansetron HCl/ Sodium Chloride (Zofran Inj/NS) 54 ml @ 216 mls/hr Q6H PRN IV NAUSEA AND/OR VOMITING Last administered on 06/21/16at 21:18; Admin Dose 216 MLS/HR; Start 06/02/16 at 18:30 Ondansetron HCl (Zofran Inj) 4 mg Q6H PRN IV NAUSEA AND/OR VOMITING Last administered on 06/24/16 17:01; Admin Dose 4 MG; Start 06/03/16 at 17:00 Acetaminophen (Tylenol Tab) 650 mg Q6H PRN PO PAIN LEVEL 1-3 OR FEVER Last administered on 06/24/16 09:16; Admin Dose 650 MG; Start 06/03/16 at 17:00 Acetaminophen (Tylenol Supp) 650 mg Q6H PRN [place] PAIN LEVEL 1-3 OR FEVER Last administered on 06/09/16at 03:37; Admin Dose 650 MG; Start 06/03/16 at 17:00 Docusate Sodium (Colace) 100 mg Q12H PRN PO CONSTIPATION Last administered on 06/20/16at 22:25; Admin Dose 100 MG; Start 06/03/16 at 17:00 Magnesium Hydroxide (Milk Of Mag) 30 ml DAILY PRN PO CONSTIPATION Last administered on 06/20/16at 06:13; Admin Dose 30 ML; Start 06/03/16 at 17:00 Bisacodyl (Dulcolax) 5 mg DAILY PRN PO CONSTIPATION; Start 06/03/16 at 17:00 Bisacodyl (Dulcolax Supp) 10 mg DAILY PRN [place] CONSTIPATION Last administered on 06/21/16at 05:18; Admin Dose 10 MG; Start 06/03/16 at 17:00 Sodium Biphosphate/ Sodium Phosphate (Fleet Enema) 133 ml DAILY PRN [place] CONSTIPATION; Start 06/03/16 at 17:00 Enoxaparin Sodium (Lovenox) 30 mg DAILY SC Last administered on 06/12/16at 08: 27; Admin Dose 30 MG; Start 06/04/16 at 09:00; Status Future Hold Allopurinol (Zyloprim) 300 mg DAILY PO Last administered on 06/25/16 09:22; Admin Dose 300 MG; Start 06/04/16 at 09:00 Eye Lubricant (Artificial Tears Oph) 2 drop QID BOTH EYES Last administered on 06/25/16 17:14; Admin Dose 2 DROP; Start 06/03/16 at 21:00 Eye Lubricant (Akwa Oint) 1 applic DAILY BOTH EYES Last administered on 09:22; Admin Dose 1 APPLIC; Start 06/04/16 at 09:00 Gabapentin (Neurontin) 200 mg TID PO Last administered on 06/25/16 12:24; Admin Dose 200 MG; Start 06/03/16 at 21:00 Levothyroxine Sodium (Synthroid) 100 mcg DAILY@06 PO Last administered on 05:56; Admin Dose 100 MCG; Start 06/04/16 at 06:00 Pantoprazole (Protonix Iv) 40 mg DAILY@06 IV Last administered on 06/25/16 05: 56; Admin Dose 40 MG; Start 06/09/16 at 06:00 Lorazepam 1 mg 1 mg Q6H PRN IV AGITATION/ANXIETY Last administered on 06/23/16 16:31; Admin Dose 1 MG; Start 06/08/16 at 18:00 Fluconazole (Diflucan 200 Mg/ NS (Pmx)) 100 ml @ 100 mls/hr Q24H IVPB Last administered on 06/25/16 05:04; Admin Dose 100 MLS/HR; Start 06/09/16 at 05:30 Acetaminophen/ Hydrocodone Bitart ([place] (5/325)) 1 tab Q6H PRN PO PAIN Last administered on 06/11/16at 17:38; Admin Dose 1 TAB; Start 06/11/16 at 17:30 Collagenase (Santyl) 1 applic DAILY TOP Last administered on 06/25/16 09:23; Admin Dose 1 APPLIC; Start 06/12/16 at 09:00 Trimethoprim/ Sulfamethoxazole (Bactrim (Ds)) 1 tab BID PO Last administered on 06/25/16 09:22; Admin Dose 1 TAB; Start 06/13/16 at 21:00 Nystatin 5 ml 5 ml QID PO Last administered on 06/25/16 17:13; Admin Dose 5 ML ; Start 06/18/16 at 17:00 Dextrose/Sodium Chloride (D5-NS) 1,000 ml @ 125 mls/hr Q8H IV Last administered on 06/25/16 12:23; Admin Dose 125 MLS/HR; Start 06/20/16 at 20:00 Scopolamine 1 patch 1 patch Q72H TRANSDERM Last administered on 06/22/16 20:28 ; Admin Dose 1 PATCH; Start 06/22/16 at 21:00 Cefepime HCl (Maxipime 1gm/50 ml (Pmx)) 50 ml @ 100 mls/hr Q12 IVPB Last administered on 06/25/16 09:20; Admin Dose 100 MLS/HR; Start 06/24/16 at 12:30 Lactobacillus Acidoph/ [place]icus 1 tab 1 tab TID PO Last administered on 12:24; Admin Dose 1 TAB; Start 06/24/16 at 13:00 Potassium Chloride (KCl 40 MEQ/250 ML NS) 250 ml @ 62.5 mls/hr ONCE ONCE IVPB Last administered on 06/25/16 17:14; Admin Dose 62.5 MLS/HR; Start 06/25/16 at 17:00; Stop 06/25/16 at 20:59 ANDREZ CONNOR MD Jun 25, 2016 20:45
[2016-06-25 21:14] VITALS: BP 104/68; RESP 22
[2016-06-25] MEDS: SCOPOLAMINE 1.5 MG PATCH TRANSDERM SCH (21:39)
[2016-06-26] MEDS: ALBUTEROL/IPRATROPIUM (NEB) 3 ML AMP HHN SCH ×6 (01:51→20:03)
[2016-06-26] MEDS: PANTOPRAZOLE 40 MG INJ IV SCH (05:11)
[2016-06-26] MEDS: FLUCONAZOLE 200 MG/NS (PMX) 100 ML IVPB SCH (05:11)
[2016-06-26] MEDS: DEXTROSE 5%-0.9% NACL 1,000 ML IV SCH ×3 (05:11→21:17)
[2016-06-26] MEDS: LEVOTHYROXINE 100 MCG TAB PO SCH (06:01)
[2016-06-26 06:06] LABS: BASOPHILS % 0.4 % (0.0-2.0); EOSINOPHILS % 0.3 % (0.0-7.0); HEMATOCRIT 24.2 % (37.0-47.0); HEMOGLOBIN 8.3 g/dl (12.0-16.0); LYMPHOCYTES # 0.7 10^3/ul (0.8-2.9); LYMPHOCYTES % 24.9 % (15.0-51.0); MEAN CORPUSCULAR HEMOGLOBIN 28.8 pg (29.0-33.0); MEAN CORPUSCULAR HGB CONC 34.3 g/dl (32.0-37.0); MEAN CORPUSCULAR VOLUME 83.9 fl (82.0-101.0); MEAN PLATELET VOLUME 9.9 fl (7.4-10.4); MONOCYTE # 0.4 10^3/ul (0.3-0.9); MONOCYTES % 13.7 % (0.0-11.0); NEUTROPHIL # 1.7 10^3/ul (1.6-7.5); NEUTROPHILS % 60.7 % (39.0-77.0); RED BLOOD COUNT 2.88 10^6/ul (4.20-5.40); RED CELL DISTRIBUTION WIDTH 16.1 % (11.5-14.5); UNCORRECTED WBC 2.7 10^3/ul (4.8-10.8); WHITE BLOOD COUNT 2.7 10^3/ul (4.8-10.8)
[2016-06-26 06:17] LABS: ALBUMIN 2.5 g/dl (3.3-4.9); CHLORIDE 107 mmol/L (97-110); POTASSIUM 3.4 mmol/L (3.5-5.1); SODIUM 140 mmol/L (135-144)
[2016-06-26 06:19] LABS: ANION GAP 10 (8-16); ASPARTATE AMINO TRANSFERASE 25 IU/L (15-46); BILIRUBIN,INDIRECT 0.1 mg/dl (0-1.1); BILIRUBIN,TOTAL 0.1 mg/dl (0.2-1.3); CARBON DIOXIDE 26 mmol/L (21-31); CREATININE 0.29 mg/dl (0.44-1.00)
[2016-06-26 06:20] LABS: ALANINE AMINOTRANSFERASE 57 IU/L (13-69); ALBUMIN/GLOBULIN RATIO 1.13; ALKALINE PHOSPHATASE 105 IU/L (42-121); GLUCOSE 95 mg/dl (70-220); LACTATE DEHYDROGENASE 656 IU/L (313-618); TOTAL PROTEIN 4.7 g/dl (6.1-8.1); URIC ACID 1.3 mg/dl (3.1-7.9)
[2016-06-26 06:21] LABS: BLOOD UREA NITROGEN < 2 mg/dl (7-20); CALCIUM 8.3 mg/dl (8.4-10.2)
[2016-06-26 06:26] LABS: CONDITION 1; LH ANALYZER COMMENTS 1; SUSPECT 1
[2016-06-26 06:28] LABS: PLATELET COUNT 19 10^3/UL (140-440)
[2016-06-26 08:48] VITALS: BP 141/64; RESP 20
[2016-06-26] MEDS: CEFEPIME 1GM/50 ML (PMX) 50 ML IVPB SCH ×2 (09:17→21:19)
[2016-06-26] MEDS: GABAPENTIN 100 MG CAP PO SCH ×3 (09:18→21:21)
[2016-06-26] MEDS: COLLAGENASE 30 GM TUBE TOP SCH (09:18)
[2016-06-26] MEDS: OCULAR LUBRICANT 3.5 GM OPH OINT BOTH EYES SCH (09:18)
[2016-06-26] MEDS: ALLOPURINOL 300 MG TAB PO SCH (09:18)
[2016-06-26] MEDS: ACYCLOVIR 400 MG TAB PO SCH ×2 (09:18→21:21)
[2016-06-26] MEDS: ARTIFICIAL TEARS 15 ML OPH BOTH EYES SCH ×4 (09:18→21:17)
[2016-06-26] MEDS: LACTOBACILLUS CHEW TAB PO SCH ×3 (09:18→21:22)
[2016-06-26] MEDS: TRIMETHOPRIM/SULFAMETHOX (DS) TAB PO SCH ×2 (09:18→21:22)
[2016-06-26] MEDS: NYSTATIN SUSP 5 ML CUP PO SCH ×4 (09:18→21:22)
--- NOTE | 2016-06-26 11:14 | CONS ---
Date/Time of Note Date/Time of Note DATE: 06/26/16 TIME: 11:12 Assessment/Plan Assessment/Plan Chief Complaint/Hosp Course 56 yo female with massive neck mass causing tracheal compression and airway compromise s/p tracheostomy placement. 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 Pt was given cycle 1A and 1B of R HyperCVAD but had only a partial response to therapy and severe side effects. We have thus changed her chemotherapy regimen. She is now being admitted for cycle 1 of R-CODOX-M and has now completed her chemotherapy. Most recent CT neck showed resolution of the mass. Problems: Additional Assessment/Plan # Burkitt's lymphoma -s/p cycle 1 R CODOX -M -Rituximab (Rituxan) as follows: * Cycle 1: 375 mg/m2 (660mg) IV on Day 1 -Cyclophosphamide (Cytoxan) 800 mg/m2 ( 1415mg) IV once per day on days 1 & 2 -Vincristine (Oncovin) 1.0 mg (dose reduced for neuropathy) days 1 & 15 . given on 06/17 -Doxorubicin (Adriamycin) 50 mg/m2 (88mg) IV once on day 1 -Methotrexate (MTX) 100mg/m2 (175mg) IV over 1 hour then 900mg/m2 (1590mg) over 23 hours on day 15. will start IVF with 2 amps Na HCo3 prior to MTX infusion since Urine Ph > 7.0. Leucovorin 25mg IV q 4 hours will start 36 hours after MTX starts until MTX level is < 0.05. next dose due today 06/16. Methotrexate at 72 hours is 0.05, which is at goal. Can stop bicarb and leucovorin, can stop checking urine pH. - Patient complaining of feeling of tightness around trach cannula. RT already evaluated patient. Discussed with Dr. Curran, given oxygenation adequate, will continue to monitor. Repeat CT neck 06/20 shows no stenosis, overall stable findings. Consider ENT consult if worsens. Currently resolved, may be related to mucous plugging, improved after suctioning per nurse. # Neutropenic fever -pt is now afebrile and will dc precautions -ANC 1400. can dc Neupogen for now -continue antibiotics. # Supportive Care and prophylactic meds -Started Acyclovir 400mg BID -fluconazole 100mg q day -Neupogen 300mcg q day -Zofran ordered prn nausea #Expected Pancytopenia -keep Hg> 8 and platelets > 10. pt to get 1 units of prbc today # Elevated AST and ALT, likely related to methotrexate. 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 all steroids should be discontinued for now unless they are part of the chemotherapy regimen -continue to work with physical therapy. 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 -uric acid level ok Approximately 40 min were spent at patient's bedside and in coordination of her care Consultation Date/Type/Reason Admit Date/Time Jun 02, 2016 at 15:10 Initial Consult Date 06/02/16 Type of Consultation: Hematology Reason for Consultation burkitts lymphoma Referring Provider: TELLY SOLANO MD 24 HR Interval Summary Free Text/Dictation no acute overnight events Exam/Review of Systems Vital Signs Vitals Vital Signs Date Time Temp Pulse Resp B/P Pulse Ox O2 Delivery O2 Flow Rate FiO2 06/26/16 09:19 80 18 97 Aerosol 5.0 T Tube 06/26/16 09:19 28 06/26/16 08:48 98.0 141/64 Intake and Output 06/25/16 06/25/16 06/26/16 15:00 23:00 07:00 Intake Total 50 ml 1750 ml 1280 ml Output Total 700 ml 800 ml Balance 50 ml 1050 ml 480 ml Exam Constitutional: alert, oriented Psych: no complaints Head: atraumatic, normocephalic Eyes: nl conjunctiva ENMT: nl external ears & nose, nl lips & teeth Neck: other (trach in place) Respiratory: clear to auscultation, normal air movement Cardiovascular: nl pulses, regular rate and rhythm Gastrointestinal: soft Musculoskeletal: nl extremities to inspection, nl gait and stance Extremities: normal pulses Results Result Diagram: 06/26/16 0505 06/26/16 0505 Results 24 hrs Laboratory Tests Test 06/26/16 05:05 06/26/16 08:14 06/26/16 08:15 Alanine Aminotransferase (ALT/SGPT) 57 Albumin 2.5 L Albumin/Globulin Ratio 1.13 Alkaline Phosphatase 105 Anion Gap 10 Aspartate Amino Transf (AST/SGOT) 25 Basophils # 0.0 Basophils % 0.4 Blood Morphology Comment Blood Urea Nitrogen < 2 L Calcium Level 8.3 L Carbon Dioxide Level 26 Chloride Level 107 Creatinine 0.29 L Direct Bilirubin 0.00 Eosinophils # 0.0 Eosinophils % 0.3 Globulin 2.20 Glucose Level 95 Hematocrit 24.2 L Hemoglobin 8.3 L Indirect Bilirubin 0.1 Lactate Dehydrogenase 656 H Lymphocytes # 0.7 L Lymphocytes % 24.9 Mean Corpuscular Hemoglobin 28.8 L Mean Corpuscular Hemoglobin Concent 34.3 Mean Corpuscular Volume 83.9 Mean Platelet Volume 9.9 Monocytes # 0.4 Monocytes % 13.7 H Neutrophils # 1.7 Neutrophils % 60.7 Nucleated Red Blood Cells # 0.0 Nucleated Red Blood Cells % 0.0 Platelet Count 19 *L Potassium Level 3.4 L Red Blood Count 2.88 L Red Cell Distribution Width 16.1 H Sodium Level 140 Total Bilirubin 0.1 L Total Protein 4.7 L Uric Acid 1.3 L White Blood Count 2.7 #L Lab Scanned Report REFERENCE LAB REFERENCE LAB Medications Medications Current Medications Acyclovir (Zovirax) 400 mg BID PO Last administered on 06/26/16 09:18; Admin Dose 400 MG; Start 06/02/16 at 14:30 Diphenhydramine HCl (Benadryl) 25 mg Q4H PRN IV ALLERGIC REACTION Last administered on 06/06/16at 20:26; Admin Dose 25 MG; Start 06/02/16 at 18:30 Dexamethasone (Decadron) 10 mg Q4H PRN IV ALLERGIC REACTION; Start 06/02/16 at 18:30 Fluconazole 100 mg 100 mg DAILY PO Last administered on 06/08/16at 09:58; Admin Dose 100 MG; Start 06/03/16 at 09:00; Status Future Hold Ondansetron HCl/ Sodium Chloride (Zofran Inj/NS) 54 ml @ 216 mls/hr Q6H PRN IV NAUSEA AND/OR VOMITING Last administered on 06/21/16at 21:18; Admin Dose 216 MLS/HR; Start 06/02/16 at 18:30 Ondansetron HCl (Zofran Inj) 4 mg Q6H PRN IV NAUSEA AND/OR VOMITING Last administered on 06/24/16 17:01; Admin Dose 4 MG; Start 06/03/16 at 17:00 Acetaminophen (Tylenol Tab) 650 mg Q6H PRN PO PAIN LEVEL 1-3 OR FEVER Last administered on 06/24/16 09:16; Admin Dose 650 MG; Start 06/03/16 at 17:00 Acetaminophen (Tylenol Supp) 650 mg Q6H PRN ME PAIN LEVEL 1-3 OR FEVER Last administered on 06/09/16at 03:37; Admin Dose 650 MG; Start 06/03/16 at 17:00 Docusate Sodium (Colace) 100 mg Q12H PRN PO CONSTIPATION Last administered on 06/20/16at 22:25; Admin Dose 100 MG; Start 06/03/16 at 17:00 Magnesium Hydroxide (Milk Of Mag) 30 ml DAILY PRN PO CONSTIPATION Last administered on 06/20/16 06:13; Admin Dose 30 ML; Start 06/03/16 at 17:00 Bisacodyl (Dulcolax) 5 mg DAILY PRN PO CONSTIPATION; Start 06/03/16 at 17:00 Bisacodyl (Dulcolax Supp) 10 mg DAILY PRN ME CONSTIPATION Last administered on 06/21/16at 05:18; Admin Dose 10 MG; Start 06/03/16 at 17:00 Sodium Biphosphate/ Sodium Phosphate (Fleet Enema) 133 ml DAILY PRN ME CONSTIPATION; Start 06/03/16 at 17:00 Enoxaparin Sodium (Lovenox) 30 mg DAILY SC Last administered on 06/12/16at 08: 27; Admin Dose 30 MG; Start 06/04/16 at 09:00; Status Future Hold Allopurinol (Zyloprim) 300 mg DAILY PO Last administered on 06/26/16 09:18; Admin Dose 300 MG; Start 06/04/16 at 09:00 Eye Lubricant (Artificial Tears Oph) 2 drop QID BOTH EYES Last administered on 06/26/16 09:18; Admin Dose 2 DROP; Start 06/03/16 at 21:00 Eye Lubricant (Akwa Oint) 1 applic DAILY BOTH EYES Last administered on 09:18; Admin Dose 1 APPLIC; Start 06/04/16 at 09:00 Gabapentin (Neurontin) 200 mg TID PO Last administered on 06/26/16 09:18; Admin Dose 200 MG; Start 06/03/16 at 21:00 Levothyroxine Sodium (Synthroid) 100 mcg DAILY@06 PO Last administered on 06:01; Admin Dose 100 MCG; Start 06/04/16 at 06:00 Pantoprazole (Protonix Iv) 40 mg DAILY@06 IV Last administered on 06/26/16 05: 11; Admin Dose 40 MG; Start 06/09/16 at 06:00 Lorazepam 1 mg 1 mg Q6H PRN IV AGITATION/ANXIETY Last administered on 06/23/16 16:31; Admin Dose 1 MG; Start 06/08/16 at 18:00 Fluconazole (Diflucan 200 Mg/ NS (Pmx)) 100 ml @ 100 mls/hr Q24H IVPB Last administered on 06/26/16 05:11; Admin Dose 100 MLS/HR; Start 06/09/16 at 05:30 Acetaminophen/ Hydrocodone Bitart ([place] (5/325)) 1 tab Q6H PRN PO PAIN Last administered on 06/11/16at 17:38; Admin Dose 1 TAB; Start 06/11/16 at 17:30 Collagenase (Santyl) 1 applic DAILY TOP Last administered on 06/26/16 09:18; Admin Dose 1 APPLIC; Start 06/12/16 at 09:00 Trimethoprim/ Sulfamethoxazole (Bactrim (Ds)) 1 tab BID PO Last administered on 06/26/16 09:18; Admin Dose 1 TAB; Start 06/13/16 at 21:00 Nystatin 5 ml 5 ml QID PO Last administered on 06/26/16 09:18; Admin Dose 5 ML ; Start 06/18/16 at 17:00 Dextrose/Sodium Chloride (D5-NS) 1,000 ml @ 125 mls/hr Q8H IV Last administered on 06/26/16 05:11; Admin Dose 125 MLS/HR; Start 06/20/16 at 20:00 Scopolamine 1 patch 1 patch Q72H TRANSDERM Last administered on 06/25/16 21:39 ; Admin Dose 1 PATCH; Start 06/22/16 at 21:00 Cefepime HCl (Maxipime 1gm/50 ml (Pmx)) 50 ml @ 100 mls/hr Q12 IVPB Last administered on 06/26/16 09:17; Admin Dose 100 MLS/HR; Start 06/24/16 at 12:30 Lactobacillus Acidoph/Bulgaricus (Floranex) 1 tab TID PO Last administered on 1 /5/17at 09:18; Admin Dose 1 TAB; Start 06/24/16 at 13:00 CHANDRIKA MERLOS M.D. Jun 26, 2016 11:14
--- NOTE | 2016-06-26 12:04 | CONS ---
Date/Time of Note Date/Time of Note DATE: 06/26/16 TIME: 12:03 Assessment/Plan Assessment/Plan Additional Assessment/Plan Impression: 1. elevated transaminases: likley secondary to hepatotoxic medication such as methotrexate as it is temporally correlated with elevated transaminases. Need to r/o other causes eg rhypo or hyper thyroidism, autoimmune. Viral hepatitis r/ o. Transaminases down-trending. 2. Burkitt's lymphoma status post tracheostomy 3. status post thyroid mass: r/o hypo or hyper thyroidism as it can cause hepatotoxicity. 4. chemo induced pancytopenia 5. SEPSIS 6. gallstone: there is no elevated bilirubin and no biliary duct dilation. PLAN 1. elevated LFT likely due to methotrexate. all improved and now back to normal 2. trend transaminases 3. screening test with ELIAZAR and SMA to screening for autoimmune hepatitis Consultation Date/Type/Reason Admit Date/Time Jun 02, 2016 at 15:10 Initial Consult Date 06/02/16 Type of Consultation: Hematology Referring Provider: TELLY SOLANO MD 24 HR Interval Summary Free Text/Dictation weakness Exam/Review of Systems Vital Signs Vitals Vital Signs Date Time Temp Pulse Resp B/P Pulse Ox O2 Delivery O2 Flow Rate FiO2 06/26/16 09:19 80 18 97 Aerosol 5.0 T Tube 06/26/16 09:19 28 06/26/16 08:48 98.0 141/64 Intake and Output 06/25/16 06/25/16 06/26/16 15:00 23:00 07:00 Intake Total 50 ml 1750 ml 1280 ml Output Total 700 ml 800 ml Balance 50 ml 1050 ml 480 ml Exam Constitutional: alert, oriented, well developed Psych: nl mood/affect, no complaints Head: atraumatic, normocephalic Eyes: EOMI, PERRL, nl conjunctiva, nl lids, nl sclera ENMT: nl external ears & nose, nl lips & teeth, nl nasal mucosa & septum Neck: non-tender, supple Respiratory: clear to auscultation, normal air movement Cardiovascular: nl pulses, regular rate and rhythm Gastrointestinal: nl liver, spleen, non-tender, soft Musculoskeletal: nl extremities to inspection, nl gait and stance Extremities: normal pulses Neurological: TENT FINISHER II-XII intact, nl mental status, nl speech, nl strength Skin: nl turgor, No rash or lesions Lymph: nl lymph nodes Results Result Diagram: 06/26/16 0505 06/26/16 0505 Results 24 hrs Laboratory Tests Test 06/26/16 05:05 06/26/16 08:14 06/26/16 08:15 Alanine Aminotransferase (ALT/SGPT) 57 Albumin 2.5 L Albumin/Globulin Ratio 1.13 Alkaline Phosphatase 105 Anion Gap 10 Aspartate Amino Transf (AST/SGOT) 25 Basophils # 0.0 Basophils % 0.4 Blood Morphology Comment Blood Urea Nitrogen < 2 L Calcium Level 8.3 L Carbon Dioxide Level 26 Chloride Level 107 Creatinine 0.29 L Direct Bilirubin 0.00 Eosinophils # 0.0 Eosinophils % 0.3 Globulin 2.20 Glucose Level 95 Hematocrit 24.2 L Hemoglobin 8.3 L Indirect Bilirubin 0.1 Lactate Dehydrogenase 656 H Lymphocytes # 0.7 L Lymphocytes % 24.9 Mean Corpuscular Hemoglobin 28.8 L Mean Corpuscular Hemoglobin Concent 34.3 Mean Corpuscular Volume 83.9 Mean Platelet Volume 9.9 Monocytes # 0.4 Monocytes % 13.7 H Neutrophils # 1.7 Neutrophils % 60.7 Nucleated Red Blood Cells # 0.0 Nucleated Red Blood Cells % 0.0 Platelet Count 19 *L Potassium Level 3.4 L Red Blood Count 2.88 L Red Cell Distribution Width 16.1 H Sodium Level 140 Total Bilirubin 0.1 L Total Protein 4.7 L Uric Acid 1.3 L White Blood Count 2.7 #L Lab Scanned Report REFERENCE LAB REFERENCE LAB Medications Medications Current Medications Acyclovir (Zovirax) 400 mg BID PO Last administered on 06/26/16t 09:18; Admin Dose 400 MG; Start 06/02/16 at 14:30 Diphenhydramine HCl (Benadryl) 25 mg Q4H PRN IV ALLERGIC REACTION Last administered on 06/06/16at 20:26; Admin Dose 25 MG; Start 06/02/16 at 18:30 Dexamethasone (Decadron) 10 mg Q4H PRN IV ALLERGIC REACTION; Start 06/02/16 at 18:30 Fluconazole 100 mg 100 mg DAILY PO Last administered on 06/08/16at 09:58; Admin Dose 100 MG; Start 06/03/16 at 09:00; Status Future Hold Ondansetron HCl/ Sodium Chloride (Zofran Inj/NS) 54 ml @ 216 mls/hr Q6H PRN IV NAUSEA AND/OR VOMITING Last administered on 06/21/16 21:18; Admin Dose 216 MLS/HR; Start 06/02/16 at 18:30 Ondansetron HCl (Zofran Inj) 4 mg Q6H PRN IV NAUSEA AND/OR VOMITING Last administered on 06/24/16 17:01; Admin Dose 4 MG; Start 06/03/16 at 17:00 Acetaminophen (Tylenol Tab) 650 mg Q6H PRN PO PAIN LEVEL 1-3 OR FEVER Last administered on 06/24/16 09:16; Admin Dose 650 MG; Start 06/03/16 at 17:00 Acetaminophen (Tylenol Supp) 650 mg Q6H PRN [place] PAIN LEVEL 1-3 OR FEVER Last administered on 06/09/16 03:37; Admin Dose 650 MG; Start 06/03/16 at 17:00 Docusate Sodium (Colace) 100 mg Q12H PRN PO CONSTIPATION Last administered on 06/20/16 22:25; Admin Dose 100 MG; Start 06/03/16 at 17:00 Magnesium Hydroxide (Milk Of Mag) 30 ml DAILY PRN PO CONSTIPATION Last administered on 06/20/16 06:13; Admin Dose 30 ML; Start 06/03/16 at 17:00 Bisacodyl (Dulcolax) 5 mg DAILY PRN PO CONSTIPATION; Start 06/03/16 at 17:00 Bisacodyl (Dulcolax Supp) 10 mg DAILY PRN [place] CONSTIPATION Last administered on 06/21/16 05:18; Admin Dose 10 MG; Start 06/03/16 at 17:00 Sodium Biphosphate/ Sodium Phosphate (Fleet Enema) 133 ml DAILY PRN [place] CONSTIPATION; Start 06/03/16 at 17:00 Enoxaparin Sodium (Lovenox) 30 mg DAILY SC Last administered on 06/12/16at 08: 27; Admin Dose 30 MG; Start 06/04/16 at 09:00; Status Future Hold Allopurinol (Zyloprim) 300 mg DAILY PO Last administered on 06/26/16 09:18; Admin Dose 300 MG; Start 06/04/16 at 09:00 Eye Lubricant (Artificial Tears Oph) 2 drop QID BOTH EYES Last administered on 06/26/16 09:18; Admin Dose 2 DROP; Start 06/03/16 at 21:00 Eye Lubricant (Akwa Oint) 1 applic DAILY BOTH EYES Last administered on 09:18; Admin Dose 1 APPLIC; Start 06/04/16 at 09:00 Gabapentin (Neurontin) 200 mg TID PO Last administered on 06/26/16 09:18; Admin Dose 200 MG; Start 06/03/16 at 21:00 Levothyroxine Sodium (Synthroid) 100 mcg DAILY@06 PO Last administered on 06:01; Admin Dose 100 MCG; Start 06/04/16 at 06:00 Pantoprazole (Protonix Iv) 40 mg DAILY@06 IV Last administered on 06/26/16 05: 11; Admin Dose 40 MG; Start 06/09/16 at 06:00 Lorazepam 1 mg 1 mg Q6H PRN IV AGITATION/ANXIETY Last administered on 06/23/16 16:31; Admin Dose 1 MG; Start 06/08/16 at 18:00 Fluconazole (Diflucan 200 Mg/ NS (Pmx)) 100 ml @ 100 mls/hr Q24H IVPB Last administered on 06/26/16 05:11; Admin Dose 100 MLS/HR; Start 06/09/16 at 05:30 Acetaminophen/ Hydrocodone Bitart ([place] (5/325)) 1 tab Q6H PRN PO PAIN Last administered on 06/11/16at 17:38; Admin Dose 1 TAB; Start 06/11/16 at 17:30 Collagenase (Santyl) 1 applic DAILY TOP Last administered on 06/26/16 09:18; Admin Dose 1 APPLIC; Start 06/12/16 at 09:00 Trimethoprim/ Sulfamethoxazole (Bactrim (Ds)) 1 tab BID PO Last administered on 06/26/16 09:18; Admin Dose 1 TAB; Start 06/13/16 at 21:00 Nystatin 5 ml 5 ml QID PO Last administered on 06/26/16 09:18; Admin Dose 5 ML ; Start 06/18/16 at 17:00 Dextrose/Sodium Chloride (D5-NS) 1,000 ml @ 125 mls/hr Q8H IV Last administered on 06/26/16 05:11; Admin Dose 125 MLS/HR; Start 06/20/16 at 20:00 Scopolamine 1 patch 1 patch Q72H TRANSDERM Last administered on 06/25/16 21:39 ; Admin Dose 1 PATCH; Start 06/22/16 at 21:00 Cefepime HCl (Maxipime 1gm/50 ml (Pmx)) 50 ml @ 100 mls/hr Q12 IVPB Last administered on 06/26/16 09:17; Admin Dose 100 MLS/HR; Start 06/24/16 at 12:30 Lactobacillus Acidoph/Bulgaricus (Floranex) 1 tab TID PO Last administered on 09:18; Admin Dose 1 TAB; Start 06/24/16 at 13:00 ANDREZ CONNOR MD Jun 26, 2016 12:04
--- NOTE | 2016-06-26 12:58 | PN ---
DATE: 06/26/2016 INFECTIOUS DISEASE PROGRESS NOTE SUBJECTIVE: The patient is alert, feels good. Denies pain, discomfort. She has been afebrile sinc e the night of June 25. She is on Cefepime, Bactrim, acyclovir, Diflucan. WBC today 2.7, without shift to the left. Platelets 19. BUN 2, creatinine 0.9. INDWELLINGS: Trach, PICC line. PHYSICAL EXAMINATION: GENERAL: This is a well-developed, ill-appearing, middle-aged [place] woman, who is alert, in no d istress. HEENT: Head atraumatic, normocephalic. Sclerae anicteric. Buccal mucosa pink. NECK: Supple. Tracheostomy present. CHEST: Chest rise is symmetrical. Breath sounds clear, diminished to the bases. HEART: S1, S2. ABDOMEN: Soft, bowel tones present. EXTREMITIES: Without cyanosis. ASSESSMENT: 1. Systemic inflammatory response syndrome, status post fevers. 2. Acute tracheobronchitis, with sputum culture growing methicillin-resistant Staphylococcus aureus . 3. Methicillin-resistant Staphylococcus aureus nares colonization. 4. Stage IIIA Burkitt's lymphoma, in chemotherapy. 5. Respiratory failure secondary to respiratory compromise by neck mass, requiring tracheostomy. 6. Pancytopenia. PLAN: The patient is doing better. We are going to keep her on cefepime for a couple more days. C ontinue Bactroban and other antimicrobials, and follow oncology recommendations. Dictated By: RODRÍGUEZ [facility] ADMINISTRATOR for JILLIAN CUEVAS/NTS Conf#: [id number] DID#: [id number]
--- NOTE | 2016-06-26 13:52 | PN ---
Date/Time of Note Date/Time of Note DATE: 06/26/16 TIME: 13:50 Assessment/Plan VTE Prophylaxis VTE Prophylaxis Intervention: other Lines/Catheters IV C[facility]ter Type (from [facility] PICC Line Central line still needed: Yes Urinary Cath still in place: No Assessment/Plan Chief Complaint/Hosp Course IMPRESSION: The patient has Burkitt's lymphoma status post tracheostomy, status post thyroid mass, status post pancytopenia, abnormal liver function test. better The patient has PANCYTOPENIA, ON CHEMO SEPSIS better gallstone ABN LFT better hypokalemia PLAN PER DR MERLOS per id per gi IV FLUID ck labs KCL Problems: Subjective 24 Hr Interval Summary Cardiovascular: no complaints Gastrointestinal: no complaints Genitourinary: no complaints Exam/Review of Systems Vital Signs Vitals Vital Signs Date Time Temp Pulse Resp B/P Pulse Ox O2 Delivery O2 Flow Rate FiO2 06/26/16 12:02 Simple Mask 5.0 06/26/16 09:19 80 18 97 06/26/16 09:19 28 06/26/16 08:48 98.0 141/64 Intake and Output 06/25/16 06/25/16 06/26/16 15:00 23:00 07:00 Intake Total 50 ml 1750 ml 1280 ml Output Total 700 ml 800 ml Balance 50 ml 1050 ml 480 ml Exam Neck: supple Respiratory: clear to auscultation Cardiovascular: regular rate and rhythm Gastrointestinal: soft Extremities: normal pulses Results Result Diagram: 06/26/16 0505 06/26/16 0505 Results 24 hrs Laboratory Tests Test 06/26/16 05:05 06/26/16 08:14 06/26/16 08:15 Alanine Aminotransferase (ALT/SGPT) 57 Albumin 2.5 L Albumin/Globulin Ratio 1.13 Alkaline Phosphatase 105 Anion Gap 10 Aspartate Amino Transf (AST/SGOT) 25 Basophils # 0.0 Basophils % 0.4 Blood Morphology Comment Blood Urea Nitrogen < 2 L Calcium Level 8.3 L Carbon Dioxide Level 26 Chloride Level 107 Creatinine 0.29 L Direct Bilirubin 0.00 Eosinophils # 0.0 Eosinophils % 0.3 Globulin 2.20 Glucose Level 95 Hematocrit 24.2 L Hemoglobin 8.3 L Indirect Bilirubin 0.1 Lactate Dehydrogenase 656 H Lymphocytes # 0.7 L Lymphocytes % 24.9 Mean Corpuscular Hemoglobin 28.8 L Mean Corpuscular Hemoglobin Concent 34.3 Mean Corpuscular Volume 83.9 Mean Platelet Volume 9.9 Monocytes # 0.4 Monocytes % 13.7 H Neutrophils # 1.7 Neutrophils % 60.7 Nucleated Red Blood Cells # 0.0 Nucleated Red Blood Cells % 0.0 Platelet Count 19 *L Potassium Level 3.4 L Red Blood Count 2.88 L Red Cell Distribution Width 16.1 H Sodium Level 140 Total Bilirubin 0.1 L Total Protein 4.7 L Uric Acid 1.3 L White Blood Count 2.7 #L Lab Scanned Report REFERENCE LAB REFERENCE LAB Medications Medications Current Medications Acyclovir (Zovirax) 400 mg BID PO Last administered on 06/26/16 09:18; Admin Dose 400 MG; Start 06/02/16 at 14:30 Diphenhydramine HCl (Benadryl) 25 mg Q4H PRN IV ALLERGIC REACTION Last administered on 06/06/16at 20:26; Admin Dose 25 MG; Start 06/02/16 at 18:30 Dexamethasone (Decadron) 10 mg Q4H PRN IV ALLERGIC REACTION; Start 06/02/16 at 18:30 Fluconazole 100 mg 100 mg DAILY PO Last administered on 06/08/16at 09:58; Admin Dose 100 MG; Start 06/03/16 at 09:00; Status Future Hold Ondansetron HCl/ Sodium Chloride (Zofran Inj/NS) 54 ml @ 216 mls/hr Q6H PRN IV NAUSEA AND/OR VOMITING Last administered on 06/21/16at 21:18; Admin Dose 216 MLS/HR; Start 06/02/16 at 18:30 Ondansetron HCl (Zofran Inj) 4 mg Q6H PRN IV NAUSEA AND/OR VOMITING Last administered on 06/24/16 17:01; Admin Dose 4 MG; Start 06/03/16 at 17:00 Acetaminophen (Tylenol Tab) 650 mg Q6H PRN PO PAIN LEVEL 1-3 OR FEVER Last administered on 06/24/16 09:16; Admin Dose 650 MG; Start 06/03/16 at 17:00 Acetaminophen (Tylenol Supp) 650 mg Q6H PRN [place] PAIN LEVEL 1-3 OR FEVER Last administered on 06/09/16at 03:37; Admin Dose 650 MG; Start 06/03/16 at 17:00 Docusate Sodium (Colace) 100 mg Q12H PRN PO CONSTIPATION Last administered on 06/20/16 22:25; Admin Dose 100 MG; Start 06/03/16 at 17:00 Magnesium Hydroxide (Milk Of Mag) 30 ml DAILY PRN PO CONSTIPATION Last administered on 06/20/16at 06:13; Admin Dose 30 ML; Start 06/03/16 at 17:00 Bisacodyl (Dulcolax) 5 mg DAILY PRN PO CONSTIPATION; Start 06/03/16 at 17:00 Bisacodyl (Dulcolax Supp) 10 mg DAILY PRN [place] CONSTIPATION Last administered on 06/21/16 05:18; Admin Dose 10 MG; Start 06/03/16 at 17:00 Sodium Biphosphate/ Sodium Phosphate (Fleet Enema) 133 ml DAILY PRN [place] CONSTIPATION; Start 06/03/16 at 17:00 Enoxaparin Sodium (Lovenox) 30 mg DAILY SC Last administered on 06/12/16at 08: 27; Admin Dose 30 MG; Start 06/04/16 at 09:00; Status Future Hold Allopurinol (Zyloprim) 300 mg DAILY PO Last administered on 06/26/16 09:18; Admin Dose 300 MG; Start 06/04/16 at 09:00 Eye Lubricant (Artificial Tears Oph) 2 drop QID BOTH EYES Last administered on 06/26/16 13:37; Admin Dose 2 DROP; Start 06/03/16 at 21:00 Eye Lubricant (Akwa Oint) 1 applic DAILY BOTH EYES Last administered on 09:18; Admin Dose 1 APPLIC; Start 06/04/16 at 09:00 Gabapentin (Neurontin) 200 mg TID PO Last administered on 06/26/16 13:36; Admin Dose 200 MG; Start 06/03/16 at 21:00 Levothyroxine Sodium (Synthroid) 100 mcg DAILY@06 PO Last administered on 06:01; Admin Dose 100 MCG; Start 06/04/16 at 06:00 Pantoprazole (Protonix Iv) 40 mg DAILY@06 IV Last administered on 06/26/16 05: 11; Admin Dose 40 MG; Start 06/09/16 at 06:00 Lorazepam 1 mg 1 mg Q6H PRN IV AGITATION/ANXIETY Last administered on 06/23/16 16:31; Admin Dose 1 MG; Start 06/08/16 at 18:00 Fluconazole (Diflucan 200 Mg/ NS (Pmx)) 100 ml @ 100 mls/hr Q24H IVPB Last administered on 06/26/16 05:11; Admin Dose 100 MLS/HR; Start 06/09/16 at 05:30 Acetaminophen/ Hydrocodone Bitart ([place] (5/325)) 1 tab Q6H PRN PO PAIN Last administered on 06/11/16at 17:38; Admin Dose 1 TAB; Start 06/11/16 at 17:30 Collagenase (Santyl) 1 applic DAILY TOP Last administered on 06/26/16 09:18; Admin Dose 1 APPLIC; Start 06/12/16 at 09:00 Trimethoprim/ Sulfamethoxazole (Bactrim (Ds)) 1 tab BID PO Last administered on 06/26/16 09:18; Admin Dose 1 TAB; Start 06/13/16 at 21:00 Nystatin 5 ml 5 ml QID PO Last administered on 06/26/16 13:37; Admin Dose 5 ML ; Start 06/18/16 at 17:00 Dextrose/Sodium Chloride (D5-NS) 1,000 ml @ 125 mls/hr Q8H IV Last administered on 06/26/16 05:11; Admin Dose 125 MLS/HR; Start 06/20/16 at 20:00 Scopolamine 1 patch 1 patch Q72H TRANSDERM Last administered on 06/25/16 21:39 ; Admin Dose 1 PATCH; Start 06/22/16 at 21:00 Cefepime HCl (Maxipime 1gm/50 ml (Pmx)) 50 ml @ 100 mls/hr Q12 IVPB Last administered on 06/26/16 09:17; Admin Dose 100 MLS/HR; Start 06/24/16 at 12:30 Lactobacillus Acidoph/Bulgaricus (Floranex) 1 tab TID PO Last administered on 13:36; Admin Dose 1 TAB; Start 06/24/16 at 13:00 GUERLINE SULLIVAN MD Jun 26, 2016 13:51
[2016-06-26] MEDS ORDERED: POTASSIUM CHLORIDE 250 ML IVPB ONE (15:30)
[2016-06-26 19:41] VITALS: BP 121/68; RESP 18
[2016-06-26 19:54] VITALS: BP 121/68; PULSE 90; RESP 18
[2016-06-26] MEDS: ONDANSETRON 4 MG INJ IV PRN (22:51)
[2016-06-27] MEDS: ALBUTEROL/IPRATROPIUM (NEB) 3 ML AMP HHN SCH ×6 (00:04→21:34)
[2016-06-27] MEDS: DEXTROSE 5%-0.9% NACL 1,000 ML IV SCH ×3 (04:00→21:25)
[2016-06-27] MEDS: FLUCONAZOLE 200 MG/NS (PMX) 100 ML IVPB SCH (04:22)
[2016-06-27 05:58] LABS: BASOPHILS % 0.5 % (0.0-2.0); EOSINOPHILS % 0.3 % (0.0-7.0); HEMATOCRIT 24.7 % (37.0-47.0); HEMOGLOBIN 8.6 g/dl (12.0-16.0); LYMPHOCYTES # 1.7 10^3/ul (0.8-2.9); LYMPHOCYTES % 42.8 % (15.0-51.0); MEAN CORPUSCULAR HEMOGLOBIN 29.5 pg (29.0-33.0); MEAN CORPUSCULAR HGB CONC 34.9 g/dl (32.0-37.0); MEAN CORPUSCULAR VOLUME 84.3 fl (82.0-101.0); MEAN PLATELET VOLUME 8.6 fl (7.4-10.4); MONOCYTE # 0.2 10^3/ul (0.3-0.9); NEUTROPHILS % 50.4 % (39.0-77.0); PLATELET COUNT 42 10^3/UL (140-440); RED BLOOD COUNT 2.93 10^6/ul (4.20-5.40); RED CELL DISTRIBUTION WIDTH 15.9 % (11.5-14.5); UNCORRECTED WBC 4.1 10^3/ul (4.8-10.8); WHITE BLOOD COUNT 4.1 10^3/ul (4.8-10.8)
[2016-06-27 06:01] LABS: CONDITION 1; LH ANALYZER COMMENTS 1; SUSPECT 1
[2016-06-27] MEDS: PANTOPRAZOLE 40 MG INJ IV SCH (06:08)
[2016-06-27] MEDS: LEVOTHYROXINE 100 MCG TAB PO SCH (06:08)
[2016-06-27 06:10] LABS: ALBUMIN 2.5 g/dl (3.3-4.9)
[2016-06-27 06:11] LABS: POTASSIUM 3.8 mmol/L (3.5-5.1)
[2016-06-27 06:13] LABS: ALBUMIN/GLOBULIN RATIO 1.13; BILIRUBIN,INDIRECT 0.1 mg/dl (0-1.1); BILIRUBIN,TOTAL 0.1 mg/dl (0.2-1.3); CREATININE 0.33 mg/dl (0.44-1.00); TOTAL PROTEIN 4.7 g/dl (6.1-8.1)
[2016-06-27 06:14] LABS: CALCIUM 8.4 mg/dl (8.4-10.2); URIC ACID 1.4 mg/dl (3.1-7.9)
[2016-06-27 08:34] VITALS: BP 112/70; RESP 18
[2016-06-27] MEDS: NYSTATIN SUSP 5 ML CUP PO SCH ×4 (09:04→21:28)
[2016-06-27] MEDS: CEFEPIME 1GM/50 ML (PMX) 50 ML IVPB SCH (09:05)
[2016-06-27] MEDS: GABAPENTIN 100 MG CAP PO SCH ×3 (09:05→21:27)
[2016-06-27] MEDS: LACTOBACILLUS CHEW TAB PO SCH ×4 (09:05→21:27)
[2016-06-27] MEDS: ARTIFICIAL TEARS 15 ML OPH BOTH EYES SCH ×4 (09:05→21:25)
[2016-06-27] MEDS: TRIMETHOPRIM/SULFAMETHOX (DS) TAB PO SCH (09:05)
[2016-06-27] MEDS: ALLOPURINOL 300 MG TAB PO SCH (09:05)
[2016-06-27] MEDS: ACYCLOVIR 400 MG TAB PO SCH ×2 (09:05→21:28)
[2016-06-27] MEDS: COLLAGENASE 30 GM TUBE TOP SCH (09:06)
[2016-06-27] MEDS: OCULAR LUBRICANT 3.5 GM OPH OINT BOTH EYES SCH (09:07)
--- NOTE | 2016-06-27 11:46 | CONS ---
Date/Time of Note Date/Time of Note DATE: 06/27/16 TIME: 11:45 Assessment/Plan Assessment/Plan Additional Assessment/Plan Additional Assessment/Plan Impression: 1. elevated transaminases: likley secondary to hepatotoxic medication such as methotrexate as it is temporally correlated with elevated transaminases. Need to r/o other causes eg rhypo or hyper thyroidism, autoimmune. Viral hepatitis r/ o. Transaminases down-trending.now normal 2. Burkitt's lymphoma status post tracheostomy 3. status post thyroid mass: r/o hypo or hyper thyroidism as it can cause hepatotoxicity. 4. chemo induced pancytopenia,better 5. SEPSIS 6. gallstone: there is no elevated bilirubin and no biliary duct dilation. PLAN 1. elevated LFT likely due to methotrexate. all improved and now back to normal Consultation Date/Type/Reason Admit Date/Time Jun 02, 2016 at 15:10 Initial Consult Date 06/02/16 Type of Consultation: Hematology Referring Provider: TELLY SOLANO MD 24 HR Interval Summary Constitutional: no complaints Exam/Review of Systems Vital Signs Vitals Vital Signs Date Time Temp Pulse Resp B/P Pulse Ox O2 Delivery O2 Flow Rate FiO2 06/27/16 09:42 98 5.0 28 06/27/16 09:41 92 18 Aerosol Aerosol Mask 06/27/16 08:34 98.4 112/70 Intake and Output 06/26/16 06/26/16 06/27/16 15:00 23:00 07:00 Intake Total 1550 ml 1700 ml Output Total 700 ml 900 ml Balance 850 ml 800 ml Exam Constitutional: alert, oriented, well developed Psych: nl mood/affect, no complaints Head: atraumatic, normocephalic Eyes: EOMI, PERRL, nl conjunctiva, nl lids, nl sclera ENMT: nl external ears & nose, nl lips & teeth, nl nasal mucosa & septum Neck: non-tender, supple Respiratory: clear to auscultation, normal air movement Cardiovascular: nl pulses, regular rate and rhythm Gastrointestinal: nl liver, spleen, non-tender, soft Musculoskeletal: nl extremities to inspection, nl gait and stance Extremities: normal pulses 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, nl mental status, nl speech, nl strength Skin: nl turgor, No rash or lesions Lymph: nl lymph nodes Results Result Diagram: 06/27/16 0430 06/27/16 0430 Results 24 hrs Laboratory Tests Test 06/27/16 04:30 Alanine Aminotransferase (ALT/SGPT) 53 Albumin 2.5 L Albumin/Globulin Ratio 1.13 Alkaline Phosphatase 108 Anion Gap 13 Aspartate Amino Transf (AST/SGOT) 29 Basophils # 0.0 Basophils % 0.5 Blood Morphology Comment Blood Urea Nitrogen 3 L Calcium Level 8.4 Carbon Dioxide Level 24 Chloride Level 107 Creatinine 0.33 L Direct Bilirubin 0.00 Eosinophils # 0.0 Eosinophils % 0.3 Globulin 2.20 Glucose Level 93 Hematocrit 24.7 L Hemoglobin 8.6 L Indirect Bilirubin 0.1 Lactate Dehydrogenase 723 H Lymphocytes # 1.7 Lymphocytes % 42.8 Mean Corpuscular Hemoglobin 29.5 Mean Corpuscular Hemoglobin Concent 34.9 Mean Corpuscular Volume 84.3 Mean Platelet Volume 8.6 Monocytes # 0.2 L Monocytes % 6.0 Neutrophils # 2.0 Neutrophils % 50.4 Nucleated Red Blood Cells # 0.0 Nucleated Red Blood Cells % 0.0 Platelet Count 42 #L Potassium Level 3.8 Red Blood Count 2.93 L Red Cell Distribution Width 15.9 H Sodium Level 140 Total Bilirubin 0.1 L Total Protein 4.7 L Uric Acid 1.4 L White Blood Count 4.1 #L Medications Medications Current Medications Acyclovir (Zovirax) 400 mg BID PO Last administered on 06/27/16t 09:05; Admin Dose 400 MG; Start 06/02/16 at 14:30 Diphenhydramine HCl (Benadryl) 25 mg Q4H PRN IV ALLERGIC REACTION Last administered on 06/06/16at 20:26; Admin Dose 25 MG; Start 06/02/16 at 18:30 Dexamethasone (Decadron) 10 mg Q4H PRN IV ALLERGIC REACTION; Start 06/02/16 at 18:30 Fluconazole 100 mg 100 mg DAILY PO Last administered on 06/08/16at 09:58; Admin Dose 100 MG; Start 06/03/16 at 09:00; Status Future Hold Ondansetron HCl/ Sodium Chloride (Zofran Inj/NS) 54 ml @ 216 mls/hr Q6H PRN IV NAUSEA AND/OR VOMITING Last administered on 06/21/16at 21:18; Admin Dose 216 MLS/HR; Start 06/02/16 at 18:30 Ondansetron HCl (Zofran Inj) 4 mg Q6H PRN IV NAUSEA AND/OR VOMITING Last administered on 06/26/16 22:51; Admin Dose 4 MG; Start 06/03/16 at 17:00 Acetaminophen (Tylenol Tab) 650 mg Q6H PRN PO PAIN LEVEL 1-3 OR FEVER Last administered on 06/24/16 09:16; Admin Dose 650 MG; Start 06/03/16 at 17:00 Acetaminophen (Tylenol Supp) 650 mg Q6H PRN [place] PAIN LEVEL 1-3 OR FEVER Last administered on 06/09/16 03:37; Admin Dose 650 MG; Start 06/03/16 at 17:00 Docusate Sodium (Colace) 100 mg Q12H PRN PO CONSTIPATION Last administered on 06/20/16 22:25; Admin Dose 100 MG; Start 06/03/16 at 17:00 Magnesium Hydroxide (Milk Of Mag) 30 ml DAILY PRN PO CONSTIPATION Last administered on 06/20/16at 06:13; Admin Dose 30 ML; Start 06/03/16 at 17:00 Bisacodyl (Dulcolax) 5 mg DAILY PRN PO CONSTIPATION; Start 06/03/16 at 17:00 Bisacodyl (Dulcolax Supp) 10 mg DAILY PRN [place] CONSTIPATION Last administered on 06/21/16at 05:18; Admin Dose 10 MG; Start 06/03/16 at 17:00 Sodium Biphosphate/ Sodium Phosphate (Fleet Enema) 133 ml DAILY PRN [place] CONSTIPATION; Start 06/03/16 at 17:00 Enoxaparin Sodium (Lovenox) 30 mg DAILY SC Last administered on 06/12/16at 08: 27; Admin Dose 30 MG; Start 06/04/16 at 09:00; Status Future Hold Allopurinol (Zyloprim) 300 mg DAILY PO Last administered on 06/27/16 09:05; Admin Dose 300 MG; Start 06/04/16 at 09:00 Eye Lubricant (Artificial Tears Oph) 2 drop QID BOTH EYES Last administered on 06/27/16 09:05; Admin Dose 2 DROP; Start 06/03/16 at 21:00 Eye Lubricant (Akwa Oint) 1 applic DAILY BOTH EYES Last administered on 09:07; Admin Dose 1 APPLIC; Start 06/04/16 at 09:00 Gabapentin (Neurontin) 200 mg TID PO Last administered on 06/27/16 09:05; Admin Dose 200 MG; Start 06/03/16 at 21:00 Levothyroxine Sodium (Synthroid) 100 mcg DAILY@06 PO Last administered on 06:08; Admin Dose 100 MCG; Start 06/04/16 at 06:00 Pantoprazole (Protonix Iv) 40 mg DAILY@06 IV Last administered on 06/27/16 06: 08; Admin Dose 40 MG; Start 06/09/16 at 06:00 Lorazepam 1 mg 1 mg Q6H PRN IV AGITATION/ANXIETY Last administered on 06/23/16 16:31; Admin Dose 1 MG; Start 06/08/16 at 18:00 Fluconazole (Diflucan 200 Mg/ NS (Pmx)) 100 ml @ 100 mls/hr Q24H IVPB Last administered on 06/27/16 04:22; Admin Dose 100 MLS/HR; Start 06/09/16 at 05:30 Acetaminophen/ Hydrocodone Bitart ([place] (5/325)) 1 tab Q6H PRN PO PAIN Last administered on 06/11/16at 17:38; Admin Dose 1 TAB; Start 06/11/16 at 17:30 Collagenase (Santyl) 1 applic DAILY TOP Last administered on 06/27/16 09:06; Admin Dose 1 APPLIC; Start 06/12/16 at 09:00 Trimethoprim/ Sulfamethoxazole (Bactrim (Ds)) 1 tab BID PO Last administered on 06/27/16 09:05; Admin Dose 1 TAB; Start 06/13/16 at 21:00 Nystatin 5 ml 5 ml QID PO Last administered on 06/27/16 09:04; Admin Dose 5 ML ; Start 06/18/16 at 17:00 Dextrose/Sodium Chloride (D5-NS) 1,000 ml @ 125 mls/hr Q8H IV Last administered on 06/27/16 04:00; Admin Dose 125 MLS/HR; Start 06/20/16 at 20:00 Scopolamine 1 patch 1 patch Q72H TRANSDERM Last administered on 06/25/16 21:39 ; Admin Dose 1 PATCH; Start 06/22/16 at 21:00 Cefepime HCl (Maxipime 1gm/50 ml (Pmx)) 50 ml @ 100 mls/hr Q12 IVPB Last administered on 06/27/16 09:05; Admin Dose 100 MLS/HR; Start 06/24/16 at 12:30 Lactobacillus Acidoph/Bulgaricus (Floranex) 1 tab TID PO Last administered on 09:05; Admin Dose 1 TAB; Start 06/24/16 at 13:00 ANDREZ CONNOR MD Jun 27, 2016 11:46
--- NOTE | 2016-06-27 12:34 | CONS ---
Date/Time of Note Date/Time of Note DATE: 06/27/16 TIME: 12:30 Assessment/Plan Assessment/Plan Chief Complaint/Hosp Course 56 yo female with massive neck mass causing tracheal compression and airway compromise s/p tracheostomy placement. 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 Pt was given cycle 1A and 1B of R HyperCVAD but had only a partial response to therapy and severe side effects. We have thus changed her chemotherapy regimen. She is now being admitted for cycle 1 of R-CODOX-M and has now completed her chemotherapy. Most recent CT neck showed resolution of the mass. Pt's counts are now improving and she is no longer transfusion dependant. She is ok for discharge from a hematology standpoint to a SNF. Problems: Additional Assessment/Plan # Burkitt's lymphoma -s/p cycle 1 R CODOX -M -Rituximab (Rituxan) as follows: * Cycle 1: 375 mg/m2 (660mg) IV on Day 1 -Cyclophosphamide (Cytoxan) 800 mg/m2 ( 1415mg) IV once per day on days 1 & 2 -Vincristine (Oncovin) 1.0 mg (dose reduced for neuropathy) days 1 & 15 . given on 06/17 -Doxorubicin (Adriamycin) 50 mg/m2 (88mg) IV once on day 1 -Methotrexate (MTX) 100mg/m2 (175mg) IV over 1 hour then 900mg/m2 (1590mg) over 23 hours on day 15. will start IVF with 2 amps Na HCo3 prior to MTX infusion since Urine Ph > 7.0. Leucovorin 25mg IV q 4 hours will start 36 hours after MTX starts until MTX level is < 0.05. next dose due today 06/16. Methotrexate at 72 hours is 0.05, which is at goal. Can stop bicarb and leucovorin, can stop checking urine pH. # Neutropenic fever -pt is now afebrile and will dc precautions -ANC 1400. can dc Neupogen for now -continue antibiotics. # Supportive Care and prophylactic meds -Started Acyclovir 400mg BID -fluconazole 100mg q day -Neupogen 300mcg q day -Zofran ordered prn nausea #Expected Pancytopenia -keep Hg> 8 and platelets > 10. pt to get 1 units of prbc today # Elevated AST and ALT, likely related to methotrexate. 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 all steroids should be discontinued for now unless they are part of the chemotherapy regimen -continue to work with physical therapy. 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 -uric acid level ok # Dispo -pt is ok for discharge from a hematology standpoint and can be discharged to a SNF. She will need to be readmitted in 2 week for chemotherapy again Approximately 40 min were spent at patient's bedside and in coordination of her care Consultation Date/Type/Reason Admit Date/Time Jun 02, 2016 at 15:10 Initial Consult Date 06/02/16 Type of Consultation: Hematology Referring Provider: TELLY SOLANO MD Exam/Review of Systems Vital Signs Vitals Vital Signs Date Time Temp Pulse Resp B/P Pulse Ox O2 Delivery O2 Flow Rate FiO2 06/27/16 12:10 94 18 100 Aerosol 5.0 28 T Tube 06/27/16 08:34 98.4 112/70 Intake and Output 06/26/16 06/26/16 06/27/16 15:00 23:00 07:00 Intake Total 1550 ml 1700 ml Output Total 700 ml 900 ml Balance 850 ml 800 ml Results Result Diagram: 06/27/16 0430 06/27/16 0430 Results 24 hrs Laboratory Tests Test 06/27/16 04:30 Alanine Aminotransferase (ALT/SGPT) 53 Albumin 2.5 L Albumin/Globulin Ratio 1.13 Alkaline Phosphatase 108 Anion Gap 13 Aspartate Amino Transf (AST/SGOT) 29 Basophils # 0.0 Basophils % 0.5 Blood Morphology Comment Blood Urea Nitrogen 3 L Calcium Level 8.4 Carbon Dioxide Level 24 Chloride Level 107 Creatinine 0.33 L Direct Bilirubin 0.00 Eosinophils # 0.0 Eosinophils % 0.3 Globulin 2.20 Glucose Level 93 Hematocrit 24.7 L Hemoglobin 8.6 L Indirect Bilirubin 0.1 Lactate Dehydrogenase 723 H Lymphocytes # 1.7 Lymphocytes % 42.8 Mean Corpuscular Hemoglobin 29.5 Mean Corpuscular Hemoglobin Concent 34.9 Mean Corpuscular Volume 84.3 Mean Platelet Volume 8.6 Monocytes # 0.2 L Monocytes % 6.0 Neutrophils # 2.0 Neutrophils % 50.4 Nucleated Red Blood Cells # 0.0 Nucleated Red Blood Cells % 0.0 Platelet Count 42 #L Potassium Level 3.8 Red Blood Count 2.93 L Red Cell Distribution Width 15.9 H Sodium Level 140 Total Bilirubin 0.1 L Total Protein 4.7 L Uric Acid 1.4 L White Blood Count 4.1 #L Medications Medications Current Medications Acyclovir (Zovirax) 400 mg BID PO Last administered on 06/27/16 09:05; Admin Dose 400 MG; Start 06/02/16 at 14:30 Diphenhydramine HCl (Benadryl) 25 mg Q4H PRN IV ALLERGIC REACTION Last administered on 06/06/16 20:26; Admin Dose 25 MG; Start 06/02/16 at 18:30 Dexamethasone (Decadron) 10 mg Q4H PRN IV ALLERGIC REACTION; Start 06/02/16 at 18:30 Fluconazole 100 mg 100 mg DAILY PO Last administered on 06/08/16 09:58; Admin Dose 100 MG; Start 06/03/16 at 09:00; Status Future Hold Ondansetron HCl/ Sodium Chloride (Zofran Inj/NS) 54 ml @ 216 mls/hr Q6H PRN IV NAUSEA AND/OR VOMITING Last administered on 06/21/16 21:18; Admin Dose 216 MLS/HR; Start 06/02/16 at 18:30 Ondansetron HCl (Zofran Inj) 4 mg Q6H PRN IV NAUSEA AND/OR VOMITING Last administered on 06/26/16 22:51; Admin Dose 4 MG; Start 06/03/16 at 17:00 Acetaminophen (Tylenol Tab) 650 mg Q6H PRN PO PAIN LEVEL 1-3 OR FEVER Last administered on 06/24/16 09:16; Admin Dose 650 MG; Start 06/03/16 at 17:00 Acetaminophen (Tylenol Supp) 650 mg Q6H PRN [place] PAIN LEVEL 1-3 OR FEVER Last administered on 06/09/16 03:37; Admin Dose 650 MG; Start 06/03/16 at 17:00 Docusate Sodium (Colace) 100 mg Q12H PRN PO CONSTIPATION Last administered on 06/20/16 22:25; Admin Dose 100 MG; Start 06/03/16 at 17:00 Magnesium Hydroxide (Milk Of Mag) 30 ml DAILY PRN PO CONSTIPATION Last administered on 06/20/16 06:13; Admin Dose 30 ML; Start 06/03/16 at 17:00 Bisacodyl (Dulcolax) 5 mg DAILY PRN PO CONSTIPATION; Start 06/03/16 at 17:00 Bisacodyl (Dulcolax Supp) 10 mg DAILY PRN [place] CONSTIPATION Last administered on 06/21/16at 05:18; Admin Dose 10 MG; Start 06/03/16 at 17:00 Sodium Biphosphate/ Sodium Phosphate (Fleet Enema) 133 ml DAILY PRN [place] CONSTIPATION; Start 06/03/16 at 17:00 Enoxaparin Sodium (Lovenox) 30 mg DAILY SC Last administered on 06/12/16at 08: 27; Admin Dose 30 MG; Start 06/04/16 at 09:00; Status Future Hold Allopurinol (Zyloprim) 300 mg DAILY PO Last administered on 06/27/16 09:05; Admin Dose 300 MG; Start 06/04/16 at 09:00 Eye Lubricant (Artificial Tears Oph) 2 drop QID BOTH EYES Last administered on 06/27/16 09:05; Admin Dose 2 DROP; Start 06/03/16 at 21:00 Eye Lubricant (Akwa Oint) 1 applic DAILY BOTH EYES Last administered on 09:07; Admin Dose 1 APPLIC; Start 06/04/16 at 09:00 Gabapentin (Neurontin) 200 mg TID PO Last administered on 06/27/16 09:05; Admin Dose 200 MG; Start 06/03/16 at 21:00 Levothyroxine Sodium (Synthroid) 100 mcg DAILY@06 PO Last administered on 06:08; Admin Dose 100 MCG; Start 06/04/16 at 06:00 Pantoprazole (Protonix Iv) 40 mg DAILY@06 IV Last administered on 06/27/16 06: 08; Admin Dose 40 MG; Start 06/09/16 at 06:00 Lorazepam 1 mg 1 mg Q6H PRN IV AGITATION/ANXIETY Last administered on 06/23/16 16:31; Admin Dose 1 MG; Start 06/08/16 at 18:00 Fluconazole (Diflucan 200 Mg/ NS (Pmx)) 100 ml @ 100 mls/hr Q24H IVPB Last administered on 06/27/16 04:22; Admin Dose 100 MLS/HR; Start 06/09/16 at 05:30 Acetaminophen/ Hydrocodone Bitart ([place] (5/325)) 1 tab Q6H PRN PO PAIN Last administered on 06/11/16at 17:38; Admin Dose 1 TAB; Start 06/11/16 at 17:30 Collagenase (Santyl) 1 applic DAILY TOP Last administered on 06/27/16 09:06; Admin Dose 1 APPLIC; Start 06/12/16 at 09:00 Trimethoprim/ Sulfamethoxazole (Bactrim (Ds)) 1 tab BID PO Last administered on 06/27/16 09:05; Admin Dose 1 TAB; Start 06/13/16 at 21:00 Nystatin 5 ml 5 ml QID PO Last administered on 06/27/16 09:04; Admin Dose 5 ML ; Start 06/18/16 at 17:00 Dextrose/Sodium Chloride (D5-NS) 1,000 ml @ 125 mls/hr Q8H IV Last administered on 06/27/16 04:00; Admin Dose 125 MLS/HR; Start 06/20/16 at 20:00 Scopolamine 1 patch 1 patch Q72H TRANSDERM Last administered on 06/25/16 21:39 ; Admin Dose 1 PATCH; Start 06/22/16 at 21:00 Cefepime HCl (Maxipime 1gm/50 ml (Pmx)) 50 ml @ 100 mls/hr Q12 IVPB Last administered on 06/27/16 09:05; Admin Dose 100 MLS/HR; Start 06/24/16 at 12:30 Lactobacillus Acidoph/Bulgaricus (Floranex) 1 tab TID PO Last administered on 09:05; Admin Dose 1 TAB; Start 06/24/16 at 13:00 CHANDRIKA MERLOS M.D. Jun 27, 2016 12:34
--- NOTE | 2016-06-27 13:19 | CONS ---
Date/Time of Note Date/Time of Note DATE: 06/27/16 TIME: 13:16 Consult Date/Type/Reason Admit Date/Time Jun 02, 2016 at 15:10 Initial Consult Date 06/02/16 Type of Consultation: id Ordering Provider: TELLY SOLANO MD Subjective alert, feels good, no fevers, nad Objective Vital Signs Date Time Temp Pulse Resp B/P Pulse Ox O2 Delivery O2 Flow Rate FiO2 06/27/16 12:10 94 18 100 Aerosol 5.0 28 T Tube 06/27/16 08:34 98.4 112/70 Intake and Output 06/26/16 06/26/16 06/27/16 15:00 23:00 07:00 Intake Total 1550 ml 1700 ml Output Total 700 ml 900 ml Balance 850 ml 800 ml Results/Medications Result Diagram: 06/27/16 0430 06/27/16 0430 Results 24 hrs Laboratory Tests Test 06/27/16 04:30 Alanine Aminotransferase (ALT/SGPT) 53 Albumin 2.5 L Albumin/Globulin Ratio 1.13 Alkaline Phosphatase 108 Anion Gap 13 Aspartate Amino Transf (AST/SGOT) 29 Basophils # 0.0 Basophils % 0.5 Blood Morphology Comment Blood Urea Nitrogen 3 L Calcium Level 8.4 Carbon Dioxide Level 24 Chloride Level 107 Creatinine 0.33 L Direct Bilirubin 0.00 Eosinophils # 0.0 Eosinophils % 0.3 Globulin 2.20 Glucose Level 93 Hematocrit 24.7 L Hemoglobin 8.6 L Indirect Bilirubin 0.1 Lactate Dehydrogenase 723 H Lymphocytes # 1.7 Lymphocytes % 42.8 Mean Corpuscular Hemoglobin 29.5 Mean Corpuscular Hemoglobin Concent 34.9 Mean Corpuscular Volume 84.3 Mean Platelet Volume 8.6 Monocytes # 0.2 L Monocytes % 6.0 Neutrophils # 2.0 Neutrophils % 50.4 Nucleated Red Blood Cells # 0.0 Nucleated Red Blood Cells % 0.0 Platelet Count 42 #L Potassium Level 3.8 Red Blood Count 2.93 L Red Cell Distribution Width 15.9 H Sodium Level 140 Total Bilirubin 0.1 L Total Protein 4.7 L Uric Acid 1.4 L White Blood Count 4.1 #L Medications Current Medications Acyclovir (Zovirax) 400 mg BID PO Last administered on 06/27/16t 09:05; Admin Dose 400 MG; Start 06/02/16 at 14:30 Diphenhydramine HCl (Benadryl) 25 mg Q4H PRN IV ALLERGIC REACTION Last administered on 06/06/16 20:26; Admin Dose 25 MG; Start 06/02/16 at 18:30 Dexamethasone (Decadron) 10 mg Q4H PRN IV ALLERGIC REACTION; Start 06/02/16 at 18:30 Fluconazole 100 mg 100 mg DAILY PO Last administered on 06/08/16 09:58; Admin Dose 100 MG; Start 06/03/16 at 09:00; Status Future Hold Ondansetron HCl/ Sodium Chloride (Zofran Inj/NS) 54 ml @ 216 mls/hr Q6H PRN IV NAUSEA AND/OR VOMITING Last administered on 06/21/16 21:18; Admin Dose 216 MLS/HR; Start 06/02/16 at 18:30 Ondansetron HCl (Zofran Inj) 4 mg Q6H PRN IV NAUSEA AND/OR VOMITING Last administered on 06/26/16 22:51; Admin Dose 4 MG; Start 06/03/16 at 17:00 Acetaminophen (Tylenol Tab) 650 mg Q6H PRN PO PAIN LEVEL 1-3 OR FEVER Last administered on 06/24/16 09:16; Admin Dose 650 MG; Start 06/03/16 at 17:00 Acetaminophen (Tylenol Supp) 650 mg Q6H PRN [place] PAIN LEVEL 1-3 OR FEVER Last administered on 06/09/16 03:37; Admin Dose 650 MG; Start 06/03/16 at 17:00 Docusate Sodium (Colace) 100 mg Q12H PRN PO CONSTIPATION Last administered on 06/20/16 22:25; Admin Dose 100 MG; Start 06/03/16 at 17:00 Magnesium Hydroxide (Milk Of Mag) 30 ml DAILY PRN PO CONSTIPATION Last administered on 06/20/16 06:13; Admin Dose 30 ML; Start 06/03/16 at 17:00 Bisacodyl (Dulcolax) 5 mg DAILY PRN PO CONSTIPATION; Start 06/03/16 at 17:00 Bisacodyl (Dulcolax Supp) 10 mg DAILY PRN [place] CONSTIPATION Last administered on 06/21/16 05:18; Admin Dose 10 MG; Start 06/03/16 at 17:00 Sodium Biphosphate/ Sodium Phosphate (Fleet Enema) 133 ml DAILY PRN [place] CONSTIPATION; Start 06/03/16 at 17:00 Enoxaparin Sodium (Lovenox) 30 mg DAILY SC Last administered on 06/12/16at 08: 27; Admin Dose 30 MG; Start 06/04/16 at 09:00; Status Future Hold Allopurinol (Zyloprim) 300 mg DAILY PO Last administered on 06/27/16 09:05; Admin Dose 300 MG; Start 06/04/16 at 09:00 Eye Lubricant (Artificial Tears Oph) 2 drop QID BOTH EYES Last administered on 06/27/16 09:05; Admin Dose 2 DROP; Start 06/03/16 at 21:00 Eye Lubricant (Akwa Oint) 1 applic DAILY BOTH EYES Last administered on 09:07; Admin Dose 1 APPLIC; Start 06/04/16 at 09:00 Gabapentin (Neurontin) 200 mg TID PO Last administered on 06/27/16 09:05; Admin Dose 200 MG; Start 06/03/16 at 21:00 Levothyroxine Sodium (Synthroid) 100 mcg DAILY@06 PO Last administered on 06:08; Admin Dose 100 MCG; Start 06/04/16 at 06:00 Pantoprazole (Protonix Iv) 40 mg DAILY@06 IV Last administered on 06/27/16 06: 08; Admin Dose 40 MG; Start 06/09/16 at 06:00 Lorazepam 1 mg 1 mg Q6H PRN IV AGITATION/ANXIETY Last administered on 06/23/16 16:31; Admin Dose 1 MG; Start 06/08/16 at 18:00 Fluconazole (Diflucan 200 Mg/ NS (Pmx)) 100 ml @ 100 mls/hr Q24H IVPB Last administered on 06/27/16 04:22; Admin Dose 100 MLS/HR; Start 06/09/16 at 05:30 Acetaminophen/ Hydrocodone Bitart ([place] (5/325)) 1 tab Q6H PRN PO PAIN Last administered on 06/11/16at 17:38; Admin Dose 1 TAB; Start 06/11/16 at 17:30 Collagenase (Santyl) 1 applic DAILY TOP Last administered on 06/27/16 09:06; Admin Dose 1 APPLIC; Start 06/12/16 at 09:00 Trimethoprim/ Sulfamethoxazole (Bactrim (Ds)) 1 tab BID PO Last administered on 06/27/16 09:05; Admin Dose 1 TAB; Start 06/13/16 at 21:00 Nystatin 5 ml 5 ml QID PO Last administered on 06/27/16 09:04; Admin Dose 5 ML ; Start 06/18/16 at 17:00 Dextrose/Sodium Chloride (D5-NS) 1,000 ml @ 125 mls/hr Q8H IV Last administered on 06/27/16 04:00; Admin Dose 125 MLS/HR; Start 06/20/16 at 20:00 Scopolamine 1 patch 1 patch Q72H TRANSDERM Last administered on 06/25/16 21:39 ; Admin Dose 1 PATCH; Start 06/22/16 at 21:00 Cefepime HCl (Maxipime 1gm/50 ml (Pmx)) 50 ml @ 100 mls/hr Q12 IVPB Last administered on 06/27/16 09:05; Admin Dose 100 MLS/HR; Start 06/24/16 at 12:30 Lactobacillus Acidoph/Bulgaricus (Floranex) 1 tab TID PO Last administered on 09:05; Admin Dose 1 TAB; Start 06/24/16 at 13:00 Assessment/Plan Chief Complaint/Hosp Course INDWELLINGS: Trach, PICC line. PHYSICAL EXAMINATION: GENERAL: This is a well-developed, ill-appearing, middle-aged [place] woman, who is alert, in no distress. HEENT: Head atraumatic, normocephalic. Sclerae anicteric. Buccal mucosa pink. NECK: Supple. Tracheostomy present. CHEST: Chest rise is symmetrical. Breath sounds clear, diminished to the bases. HEART: S1, S2. ABDOMEN: Soft, bowel tones present. EXTREMITIES: Without cyanosis. ASSESSMENT: 1. Systemic inflammatory response syndrome, status post fevers. 2. Acute tracheobronchitis, with sputum culture growing methicillin-resistant Staphylococcus aureus. 3. Methicillin-resistant Staphylococcus aureus nares colonization. 4. Stage IIIA Burkitt's lymphoma, in chemotherapy. 5. Respiratory failure secondary to respiratory compromise by neck mass, requiring tracheostomy. 6. Pancytopenia. PLAN: The patient is doing better Will dc Cefepime and Bactrim and start Doxycycline for 2 more weeks for MRSA + sputum, pending dc to SNF, pt to be back for chemo in a week, continue probiotics DW pt/ at bedside Problems: RODRÍGUEZ ERAZO NP Jun 27, 2016 13:18
--- NOTE | 2016-06-27 17:24 | PN ---
Date/Time of Note Date/Time of Note DATE: 06/27/16 TIME: 17:23 Assessment/Plan VTE Prophylaxis VTE Prophylaxis Intervention: other Lines/Catheters IV Catheter Type (from Nrs): PICC Line Central line still needed: Yes Urinary Cath still in place: No Assessment/Plan Chief Complaint/Hosp Course IMPRESSION: The patient has Burkitt's lymphoma status post tracheostomy, status post thyroid mass, status post pancytopenia, abnormal liver function test. better The patient has PANCYTOPENIA, ON CHEMO SEPSIS better gallstone ABN LFT better hypokalemia PLAN PER DR CHELITA willams to snf Problems: Subjective 24 Hr Interval Summary Respiratory: no complaints Cardiovascular: no complaints Exam/Review of Systems Vital Signs Vitals Vital Signs Date Time Temp Pulse Resp B/P Pulse Ox O2 Delivery O2 Flow Rate FiO2 06/27/16 15:46 100 5.0 28 06/27/16 15:42 92 18 Aerosol 06/27/16 08:34 98.4 112/70 Intake and Output 06/26/16 06/26/16 06/27/16 15:00 23:00 07:00 Intake Total 1550 ml 1700 ml Output Total 700 ml 900 ml Balance 850 ml 800 ml Exam Respiratory: clear to auscultation Cardiovascular: regular rate and rhythm Gastrointestinal: soft Musculoskeletal: nl extremities to inspection Results Result Diagram: 06/27/16 0430 06/27/16 0430 Results 24 hrs Laboratory Tests Test 06/27/16 04:30 Alanine Aminotransferase (ALT/SGPT) 53 Albumin 2.5 L Albumin/Globulin Ratio 1.13 Alkaline Phosphatase 108 Anion Gap 13 Aspartate Amino Transf (AST/SGOT) 29 Basophils # 0.0 Basophils % 0.5 Blood Morphology Comment Blood Urea Nitrogen 3 L Calcium Level 8.4 Carbon Dioxide Level 24 Chloride Level 107 Creatinine 0.33 L Direct Bilirubin 0.00 Eosinophils # 0.0 Eosinophils % 0.3 Globulin 2.20 Glucose Level 93 Hematocrit 24.7 L Hemoglobin 8.6 L Indirect Bilirubin 0.1 Lactate Dehydrogenase 723 H Lymphocytes # 1.7 Lymphocytes % 42.8 Mean Corpuscular Hemoglobin 29.5 Mean Corpuscular Hemoglobin Concent 34.9 Mean Corpuscular Volume 84.3 Mean Platelet Volume 8.6 Monocytes # 0.2 L Monocytes % 6.0 Neutrophils # 2.0 Neutrophils % 50.4 Nucleated Red Blood Cells # 0.0 Nucleated Red Blood Cells % 0.0 Platelet Count 42 #L Potassium Level 3.8 Red Blood Count 2.93 L Red Cell Distribution Width 15.9 H Sodium Level 140 Total Bilirubin 0.1 L Total Protein 4.7 L Uric Acid 1.4 L White Blood Count 4.1 #L Medications Medications Current Medications Acyclovir (Zovirax) 400 mg BID PO Last administered on 06/27/16 09:05; Admin Dose 400 MG; Start 06/02/16 at 14:30 Diphenhydramine HCl (Benadryl) 25 mg Q4H PRN IV ALLERGIC REACTION Last administered on 06/06/16 20:26; Admin Dose 25 MG; Start 06/02/16 at 18:30 Dexamethasone (Decadron) 10 mg Q4H PRN IV ALLERGIC REACTION; Start 06/02/16 at 18:30 Fluconazole 100 mg 100 mg DAILY PO Last administered on 06/08/16 09:58; Admin Dose 100 MG; Start 06/03/16 at 09:00; Status Future Hold Ondansetron HCl/ Sodium Chloride (Zofran Inj/NS) 54 ml @ 216 mls/hr Q6H PRN IV NAUSEA AND/OR VOMITING Last administered on 06/21/16 21:18; Admin Dose 216 MLS/HR; Start 06/02/16 at 18:30 Ondansetron HCl (Zofran Inj) 4 mg Q6H PRN IV NAUSEA AND/OR VOMITING Last administered on 06/26/16 22:51; Admin Dose 4 MG; Start 06/03/16 at 17:00 Acetaminophen (Tylenol Tab) 650 mg Q6H PRN PO PAIN LEVEL 1-3 OR FEVER Last administered on 06/24/16 09:16; Admin Dose 650 MG; Start 06/03/16 at 17:00 Acetaminophen (Tylenol Supp) 650 mg Q6H PRN [place] PAIN LEVEL 1-3 OR FEVER Last administered on 06/09/16 03:37; Admin Dose 650 MG; Start 06/03/16 at 17:00 Docusate Sodium (Colace) 100 mg Q12H PRN PO CONSTIPATION Last administered on 06/20/16 22:25; Admin Dose 100 MG; Start 06/03/16 at 17:00 Magnesium Hydroxide (Milk Of Mag) 30 ml DAILY PRN PO CONSTIPATION Last administered on 12/30/16at 06:13; Admin Dose 30 ML; Start 06/03/16 at 17:00 Bisacodyl (Dulcolax) 5 mg DAILY PRN PO CONSTIPATION; Start 06/03/16 at 17:00 Bisacodyl (Dulcolax Supp) 10 mg DAILY PRN [place] CONSTIPATION Last administered on 06/21/16 05:18; Admin Dose 10 MG; Start 06/03/16 at 17:00 Sodium Biphosphate/ Sodium Phosphate (Fleet Enema) 133 ml DAILY PRN [place] CONSTIPATION; Start 06/03/16 at 17:00 Enoxaparin Sodium (Lovenox) 30 mg DAILY SC Last administered on 06/12/16 08: 27; Admin Dose 30 MG; Start 06/04/16 at 09:00; Status Future Hold Allopurinol (Zyloprim) 300 mg DAILY PO Last administered on 06/27/16 09:05; Admin Dose 300 MG; Start 06/04/16 at 09:00 Eye Lubricant (Artificial Tears Oph) 2 drop QID BOTH EYES Last administered on 06/27/16 09:05; Admin Dose 2 DROP; Start 06/03/16 at 21:00 Eye Lubricant (Akwa Oint) 1 applic DAILY BOTH EYES Last administered on 09:07; Admin Dose 1 APPLIC; Start 06/04/16 at 09:00 Gabapentin (Neurontin) 200 mg TID PO Last administered on 06/27/16 09:05; Admin Dose 200 MG; Start 06/03/16 at 21:00 Levothyroxine Sodium (Synthroid) 100 mcg DAILY@06 PO Last administered on 06:08; Admin Dose 100 MCG; Start 06/04/16 at 06:00 Pantoprazole (Protonix Iv) 40 mg DAILY@06 IV Last administered on 06/27/16 06: 08; Admin Dose 40 MG; Start 06/09/16 at 06:00 Lorazepam (Ativan) 1 mg Q6H PRN IV AGITATION/ANXIETY Last administered on 16:31; Admin Dose 1 MG; Start 06/08/16 at 18:00 Acetaminophen/ Hydrocodone Bitart ([place] (5/325)) 1 tab Q6H PRN PO PAIN Last administered on 06/11/16at 17:38; Admin Dose 1 TAB; Start 06/11/16 at 17:30 Collagenase (Santyl) 1 applic DAILY TOP Last administered on 06/27/16 09:06; Admin Dose 1 APPLIC; Start 06/12/16 at 09:00 Nystatin 5 ml 5 ml QID PO Last administered on 06/27/16 09:04; Admin Dose 5 ML ; Start 06/18/16 at 17:00 Dextrose/Sodium Chloride (D5-NS) 1,000 ml @ 125 mls/hr Q8H IV Last administered on 06/27/16 04:00; Admin Dose 125 MLS/HR; Start 06/20/16 at 20:00 Scopolamine (Transderm-Scop) 1 patch Q72H TRANSDERM Last administered on 21:39; Admin Dose 1 PATCH; Start 06/22/16 at 21:00 Lactobacillus Acidoph/Bulgaricus (Floranex) 1 tab TID PO Last administered on 09:05; Admin Dose 1 TAB; Start 06/24/16 at 13:00 Doxycycline Hyclate (Vibramycin) 100 mg BID PO ; Start 06/27/16 at 21:00 Lactobacillus Acidoph/Bulgaricus (Floranex) 1 tab TID PO ; Start 06/27/16 at 21: 00 Fluconazole (Diflucan) 100 mg DAILY PO ; Start 06/28/16 at 09:00 GUERLINE SULLIVAN MD Jun 27, 2016 17:24
[2016-06-27 20:40] VITALS: BP 143/61; RESP 22
[2016-06-27] MEDS: ONDANSETRON 4 MG INJ IV PRN (21:28)
[2016-06-27] MEDS: DOXYCYCLINE 100 MG TAB PO SCH (21:28)
[2016-06-28] MEDS: DEXTROSE 5%-0.9% NACL 1,000 ML IV SCH ×3 (04:20→18:34)
[2016-06-28] MEDS: ALBUTEROL/IPRATROPIUM (NEB) 3 ML AMP HHN SCH ×6 (05:05→21:55)
[2016-06-28] MEDS: PANTOPRAZOLE 40 MG INJ IV SCH (06:01)
[2016-06-28] MEDS: LEVOTHYROXINE 100 MCG TAB PO SCH (06:01)
[2016-06-28 08:09] VITALS: BP 106/59; RESP 18
[2016-06-28] MEDS: LACTOBACILLUS CHEW TAB PO SCH ×7 (09:00→21:40)
[2016-06-28] MEDS: OCULAR LUBRICANT 3.5 GM OPH OINT BOTH EYES SCH (09:38)
[2016-06-28] MEDS: ARTIFICIAL TEARS 15 ML OPH BOTH EYES SCH ×5 (09:38→21:39)
[2016-06-28] MEDS: DOXYCYCLINE 100 MG TAB PO SCH ×2 (09:39→21:41)
[2016-06-28] MEDS: ACYCLOVIR 400 MG TAB PO SCH ×2 (09:39→21:41)
[2016-06-28] MEDS: ALLOPURINOL 300 MG TAB PO SCH (09:39)
[2016-06-28] MEDS: FLUCONAZOLE 100 MG TAB PO SCH (09:39)
[2016-06-28] MEDS: NYSTATIN SUSP 5 ML CUP PO SCH ×5 (09:39→21:41)
[2016-06-28] MEDS: GABAPENTIN 100 MG CAP PO SCH ×4 (09:40→21:41)
[2016-06-28] MEDS: COLLAGENASE 30 GM TUBE TOP SCH (09:41)
--- NOTE | 2016-06-28 11:33 | PN ---
Date/Time of Note Date/Time of Note DATE: 06/28/16 TIME: 11:31 Assessment/Plan VTE Prophylaxis VTE Prophylaxis Intervention: LMWH, SCD's Lines/Catheters IV Catheter Type (from Nrsg): PICC Line Central line still needed: Yes (for chemotherapy ) Urinary Cath still in place: No Assessment/Plan Assessment/Plan 1. Systemic inflammatory response syndrome, status post fevers. 2. Acute tracheobronchitis, with sputum culture growing methicillin-resistant Staphylococcus aureus. 3. Methicillin-resistant Staphylococcus aureus nares colonization. 4. Stage IIIA Burkitt's lymphoma, in chemotherapy. 5. Respiratory failure secondary to respiratory compromise by neck mass, requiring tracheostomy. 6. Pancytopenia. PLAN: continue Current care Decrease IVF rate Protonix for GI prophylaxis Lovenox for DVT prophylaxis Subjective 24 Hr Interval Summary Free Text/Dictation c/o pain otherwise stable, awaiting SNF placement Exam/Review of Systems Vital Signs Vitals Vital Signs Date Time Temp Pulse Resp B/P Pulse Ox O2 Delivery O2 Flow Rate FiO2 06/28/16 08:35 94 20 98 Aerosol 28 T Tube 06/28/16 08:30 4.0 06/28/16 08:09 97.9 106/59 Intake and Output 06/27/16 06/27/16 06/28/16 15:00 23:00 07:00 Intake Total 1650 ml 1450 ml Output Total 750 ml 1100 ml Balance 900 ml 350 ml Exam GENERAL: This is a well-developed, ill-appearing, middle-aged [place] woman, who is alert, in no distress. HEENT: Head atraumatic, normocephalic. Sclerae anicteric. Buccal mucosa pink. NECK: Supple. Tracheostomy present. CHEST: Chest rise is symmetrical. Breath sounds clear, diminished to the bases. HEART: S1, S2. ABDOMEN: Soft, bowel tones present. EXTREMITIES: Without cyanosis. Results Result Diagram: 06/27/1642906/27/16429 Medications Medications Current Medications Acyclovir (Zovirax) 400 mg BID PO Last administered on 06/28/16t 09:39; Admin Dose 400 MG; Start 06/02/16 at 14:30 Diphenhydramine HCl (Benadryl) 25 mg Q4H PRN IV ALLERGIC REACTION Last administered on 06/06/16at 20:26; Admin Dose 25 MG; Start 06/02/16 at 18:30 Dexamethasone (Decadron) 10 mg Q4H PRN IV ALLERGIC REACTION; Start 06/02/16 at 18:30 Fluconazole 100 mg 100 mg DAILY PO Last administered on 06/08/16at 09:58; Admin Dose 100 MG; Start 06/03/16 at 09:00; Status Future Hold Ondansetron HCl/ Sodium Chloride (Zofran Inj/NS) 54 ml @ 216 mls/hr Q6H PRN IV NAUSEA AND/OR VOMITING Last administered on 06/21/16at 21:18; Admin Dose 216 MLS/HR; Start 06/02/16 at 18:30 Ondansetron HCl (Zofran Inj) 4 mg Q6H PRN IV NAUSEA AND/OR VOMITING Last administered on 06/27/16 21:28; Admin Dose 4 MG; Start 06/03/16 at 17:00 Acetaminophen (Tylenol Tab) 650 mg Q6H PRN PO PAIN LEVEL 1-3 OR FEVER Last administered on 06/24/16 09:16; Admin Dose 650 MG; Start 06/03/16 at 17:00 Acetaminophen (Tylenol Supp) 650 mg Q6H PRN [place] PAIN LEVEL 1-3 OR FEVER Last administered on 06/09/16at 03:37; Admin Dose 650 MG; Start 06/03/16 at 17:00 Docusate Sodium (Colace) 100 mg Q12H PRN PO CONSTIPATION Last administered on 06/20/16at 22:25; Admin Dose 100 MG; Start 06/03/16 at 17:00 Magnesium Hydroxide (Milk Of Mag) 30 ml DAILY PRN PO CONSTIPATION Last administered on 06/20/16at 06:13; Admin Dose 30 ML; Start 06/03/16 at 17:00 Bisacodyl (Dulcolax) 5 mg DAILY PRN PO CONSTIPATION; Start 06/03/16 at 17:00 Bisacodyl (Dulcolax Supp) 10 mg DAILY PRN [place] CONSTIPATION Last administered on 06/21/16at 05:18; Admin Dose 10 MG; Start 06/03/16 at 17:00 Sodium Biphosphate/ Sodium Phosphate (Fleet Enema) 133 ml DAILY PRN [place] CONSTIPATION; Start 06/03/16 at 17:00 Enoxaparin Sodium (Lovenox) 30 mg DAILY SC Last administered on 06/12/16at 08: 27; Admin Dose 30 MG; Start 06/04/16 at 09:00; Status Future Hold Allopurinol (Zyloprim) 300 mg DAILY PO Last administered on 06/28/16 09:39; Admin Dose 300 MG; Start 06/04/16 at 09:00 Eye Lubricant (Artificial Tears Oph) 2 drop QID BOTH EYES Last administered on 06/28/16 09:38; Admin Dose 2 DROP; Start 06/03/16 at 21:00 Eye Lubricant (Akwa Oint) 1 applic DAILY BOTH EYES Last administered on 09:38; Admin Dose 1 APPLIC; Start 06/04/16 at 09:00 Gabapentin (Neurontin) 200 mg TID PO Last administered on 06/28/16 09:40; Admin Dose 200 MG; Start 06/03/16 at 21:00 Levothyroxine Sodium (Synthroid) 100 mcg DAILY@06 PO Last administered on 06:01; Admin Dose 100 MCG; Start 06/04/16 at 06:00 Pantoprazole (Protonix Iv) 40 mg DAILY@06 IV Last administered on 06/28/16 06: 01; Admin Dose 40 MG; Start 06/09/16 at 06:00 Lorazepam (Ativan) 1 mg Q6H PRN IV AGITATION/ANXIETY Last administered on 16:31; Admin Dose 1 MG; Start 06/08/16 at 18:00 Acetaminophen/ Hydrocodone Bitart ([place] (5/325)) 1 tab Q6H PRN PO PAIN Last administered on 06/11/16at 17:38; Admin Dose 1 TAB; Start 06/11/16 at 17:30 Collagenase (Santyl) 1 applic DAILY TOP Last administered on 06/28/16 09:41; Admin Dose 1 APPLIC; Start 06/12/16 at 09:00 Nystatin 5 ml 5 ml QID PO Last administered on 06/28/16 09:39; Admin Dose 5 ML ; Start 06/18/16 at 17:00 Dextrose/Sodium Chloride (D5-NS) 1,000 ml @ 125 mls/hr Q8H IV Last administered on 06/28/16 04:20; Admin Dose 125 MLS/HR; Start 06/20/16 at 20:00 Scopolamine (Transderm-Scop) 1 patch Q72H TRANSDERM Last administered on 21:39; Admin Dose 1 PATCH; Start 06/22/16 at 21:00 Lactobacillus Acidoph/Bulgaricus (Floranex) 1 tab TID PO Last administered on 09:39; Admin Dose 1 TAB; Start 06/24/16 at 13:00 Doxycycline Hyclate (Vibramycin) 100 mg BID PO Last administered on 06/28/16 09 :39; Admin Dose 100 MG; Start 06/27/16 at 21:00 Lactobacillus Acidoph/Bulgaricus (Floranex) 1 tab TID PO ; Start 06/27/16 at 21: 00 Fluconazole (Diflucan) 100 mg DAILY PO Last administered on 06/28/16 09:39; Admin Dose 100 MG; Start 06/28/16 at 09:00 TELLY SOLANO MD Jun 28, 2016 11:33
[2016-06-28] MEDS: ONDANSETRON 4 MG INJ IV PRN ×2 (12:20→21:39)
--- NOTE | 2016-06-28 13:54 | CONS ---
Date/Time of Note Date/Time of Note DATE: 06/28/16 TIME: 13:52 Consult Date/Type/Reason Admit Date/Time Jun 02, 2016 at 15:10 Initial Consult Date 06/02/16 Type of Consultation: id Ordering Provider: TELLY SOLANO MD Subjective no events per report, sleeping, no fevers, nad Objective Vital Signs Date Time Temp Pulse Resp B/P Pulse Ox O2 Delivery O2 Flow Rate FiO2 06/28/16 12:46 84 18 100 Aerosol 28 T Tube 06/28/16 08:30 4.0 06/28/16 08:09 97.9 106/59 Intake and Output 06/27/16 06/27/16 06/28/16 15:00 23:00 07:00 Intake Total 1650 ml 1450 ml Output Total 750 ml 1100 ml Balance 900 ml 350 ml Results/Medications Result Diagram: 06/27/16 04306/27/16 0430 Medications Current Medications Acyclovir (Zovirax) 400 mg BID PO Last administered on 06/28/16 09:39; Admin Dose 400 MG; Start 06/02/16 at 14:30 Diphenhydramine HCl (Benadryl) 25 mg Q4H PRN IV ALLERGIC REACTION Last administered on 06/06/16at 20:26; Admin Dose 25 MG; Start 06/02/16 at 18:30 Dexamethasone (Decadron) 10 mg Q4H PRN IV ALLERGIC REACTION; Start 06/02/16 at 18:30 Fluconazole 100 mg 100 mg DAILY PO Last administered on 06/08/16at 09:58; Admin Dose 100 MG; Start 06/03/16 at 09:00; Status Future Hold Ondansetron HCl/ Sodium Chloride (Zofran Inj/NS) 54 ml @ 216 mls/hr Q6H PRN IV NAUSEA AND/OR VOMITING Last administered on 06/21/16at 21:18; Admin Dose 216 MLS/HR; Start 06/02/16 at 18:30 Ondansetron HCl (Zofran Inj) 4 mg Q6H PRN IV NAUSEA AND/OR VOMITING Last administered on 06/28/16 12:20; Admin Dose 4 MG; Start 06/03/16 at 17:00 Acetaminophen (Tylenol Tab) 650 mg Q6H PRN PO PAIN LEVEL 1-3 OR FEVER Last administered on 06/24/16 09:16; Admin Dose 650 MG; Start 06/03/16 at 17:00 Acetaminophen (Tylenol Supp) 650 mg Q6H PRN [place] PAIN LEVEL 1-3 OR FEVER Last administered on 06/09/16at 03:37; Admin Dose 650 MG; Start 06/03/16 at 17:00 Docusate Sodium (Colace) 100 mg Q12H PRN PO CONSTIPATION Last administered on 06/20/16at 22:25; Admin Dose 100 MG; Start 06/03/16 at 17:00 Magnesium Hydroxide (Milk Of Mag) 30 ml DAILY PRN PO CONSTIPATION Last administered on 06/20/16 06:13; Admin Dose 30 ML; Start 06/03/16 at 17:00 Bisacodyl (Dulcolax) 5 mg DAILY PRN PO CONSTIPATION; Start 06/03/16 at 17:00 Bisacodyl (Dulcolax Supp) 10 mg DAILY PRN [place] CONSTIPATION Last administered on 06/21/16 05:18; Admin Dose 10 MG; Start 06/03/16 at 17:00 Sodium Biphosphate/ Sodium Phosphate (Fleet Enema) 133 ml DAILY PRN [place] CONSTIPATION; Start 06/03/16 at 17:00 Enoxaparin Sodium (Lovenox) 30 mg DAILY SC Last administered on 06/12/16at 08: 27; Admin Dose 30 MG; Start 06/04/16 at 09:00; Status Future Hold Allopurinol (Zyloprim) 300 mg DAILY PO Last administered on 06/28/16 09:39; Admin Dose 300 MG; Start 06/04/16 at 09:00 Eye Lubricant (Artificial Tears Oph) 2 drop QID BOTH EYES Last administered on 06/28/16 12:20; Admin Dose 2 DROP; Start 06/03/16 at 21:00 Eye Lubricant (Akwa Oint) 1 applic DAILY BOTH EYES Last administered on 09:38; Admin Dose 1 APPLIC; Start 06/04/16 at 09:00 Gabapentin (Neurontin) 200 mg TID PO Last administered on 06/28/16 12:20; Admin Dose 200 MG; Start 06/03/16 at 21:00 Levothyroxine Sodium (Synthroid) 100 mcg DAILY@06 PO Last administered on 06:01; Admin Dose 100 MCG; Start 06/04/16 at 06:00 Pantoprazole (Protonix Iv) 40 mg DAILY@06 IV Last administered on 06/28/16 06: 01; Admin Dose 40 MG; Start 06/09/16 at 06:00 Lorazepam (Ativan) 1 mg Q6H PRN IV AGITATION/ANXIETY Last administered on 16:31; Admin Dose 1 MG; Start 06/08/16 at 18:00 Acetaminophen/ Hydrocodone Bitart ([place] (5/325)) 1 tab Q6H PRN PO PAIN Last administered on 06/11/16at 17:38; Admin Dose 1 TAB; Start 06/11/16 at 17:30 Collagenase (Santyl) 1 applic DAILY TOP Last administered on 06/28/16 09:41; Admin Dose 1 APPLIC; Start 06/12/16 at 09:00 Nystatin 5 ml 5 ml QID PO Last administered on 06/28/16 12:20; Admin Dose 5 ML ; Start 06/18/16 at 17:00 Dextrose/Sodium Chloride (D5-NS) 1,000 ml @ 50 mls/hr Q20H IV Last administered on 06/28/16 04:20; Admin Dose 125 MLS/HR; Start 06/20/16 at 20:00 Scopolamine (Transderm-Scop) 1 patch Q72H TRANSDERM Last administered on 21:39; Admin Dose 1 PATCH; Start 06/22/16 at 21:00 Lactobacillus Acidoph/Bulgaricus (Floranex) 1 tab TID PO Last administered on 12:20; Admin Dose 1 TAB; Start 06/24/16 at 13:00 Doxycycline Hyclate (Vibramycin) 100 mg BID PO Last administered on 06/28/16 09 :39; Admin Dose 100 MG; Start 06/27/16 at 21:00 Lactobacillus Acidoph/Bulgaricus (Floranex) 1 tab TID PO ; Start 06/27/16 at 21: 00 Fluconazole (Diflucan) 100 mg DAILY PO Last administered on 06/28/16 09:39; Admin Dose 100 MG; Start 06/28/16 at 09:00 Assessment/Plan Chief Complaint/Hosp Course INDWELLINGS: Trach, PICC line. PHYSICAL EXAMINATION: GENERAL: This is a well-developed, ill-appearing, middle-aged [place] woman, who is alert, in no distress. HEENT: Head atraumatic, normocephalic. Sclerae anicteric. Buccal mucosa pink. NECK: Supple. Tracheostomy present. CHEST: Chest rise is symmetrical. Breath sounds clear, diminished to the bases. HEART: S1, S2. ABDOMEN: Soft, bowel tones present. EXTREMITIES: Without cyanosis. ASSESSMENT: 1. Systemic inflammatory response syndrome, status post fevers. 2. Acute tracheobronchitis, with sputum culture growing methicillin-resistant Staphylococcus aureus. 3. Methicillin-resistant Staphylococcus aureus nares colonization. 4. Stage IIIA Burkitt's lymphoma, in chemotherapy. 5. Respiratory failure secondary to respiratory compromise by neck mass, requiring tracheostomy. 6. Pancytopenia. PLAN: The patient remains stable, continue Doxycycline for 2 more weeks for MRSA + sputum, continue Diflucan, pending dc plan [facility] staff Problems: RODRÍGUEZ ERAZO NP Jun 28, 2016 13:53
[2016-06-28 19:16] VITALS: BP 113/77; RESP 18
[2016-06-28] MEDS: SCOPOLAMINE 1.5 MG PATCH TRANSDERM SCH (21:41)
[2016-06-29] MEDS: ALBUTEROL/IPRATROPIUM (NEB) 3 ML AMP HHN SCH ×6 (01:44→20:46)
[2016-06-29] MEDS: LEVOTHYROXINE 100 MCG TAB PO SCH (06:07)
[2016-06-29] MEDS: PANTOPRAZOLE 40 MG INJ IV SCH (06:07)
[2016-06-29 07:47] VITALS: BP 113/60; RESP 21
[2016-06-29] MEDS: LACTOBACILLUS CHEW TAB PO SCH ×6 (09:00→20:29)
[2016-06-29] MEDS: COLLAGENASE 30 GM TUBE TOP SCH (09:16)
[2016-06-29] MEDS: ARTIFICIAL TEARS 15 ML OPH BOTH EYES SCH ×4 (09:16→20:28)
[2016-06-29] MEDS: OCULAR LUBRICANT 3.5 GM OPH OINT BOTH EYES SCH (09:16)
[2016-06-29] MEDS: NYSTATIN SUSP 5 ML CUP PO SCH ×4 (09:16→20:28)
[2016-06-29] MEDS: DOXYCYCLINE 100 MG TAB PO SCH ×2 (09:17→20:28)
[2016-06-29] MEDS: GABAPENTIN 100 MG CAP PO SCH ×3 (09:17→20:29)
[2016-06-29] MEDS: FLUCONAZOLE 100 MG TAB PO SCH (09:17)
[2016-06-29] MEDS: ACYCLOVIR 400 MG TAB PO SCH ×2 (09:17→20:29)
[2016-06-29] MEDS: ALLOPURINOL 300 MG TAB PO SCH (09:17)
--- NOTE | 2016-06-29 12:02 | PN ---
Date/Time of Note Date/Time of Note DATE: 06/29/16 TIME: 11:59 Assessment/Plan VTE Prophylaxis VTE Prophylaxis Intervention: LMWH Lines/Catheters IV Catheter Type (from Nrsg): PICC Line Central line still needed: Yes (IV access for chemotherapy ) Urinary Cath still in place: No Assessment/Plan Assessment/Plan 1. Systemic inflammatory response syndrome, status post fevers. 2. Acute tracheobronchitis, with sputum culture growing methicillin-resistant Staphylococcus aureus. 3. Methicillin-resistant Staphylococcus aureus nares colonization. 4. Stage IIIA Burkitt's lymphoma, in chemotherapy. 5. Respiratory failure secondary to respiratory compromise by neck mass, requiring tracheostomy. 6. Pancytopenia. PLAN: continue Current care d/c IVF Protonix for GI prophylaxis Lovenox for DVT prophylaxis as per H&O-no plan for Portacath, will keep PICC line in place on discharge Subjective 24 Hr Interval Summary Free Text/Dictation awaiting SNF placement, no plan for portacah, keep PICC line in place Exam/Review of Systems Vital Signs Vitals Vital Signs Date Time Temp Pulse Resp B/P Pulse Ox O2 Delivery O2 Flow Rate FiO2 06/29/16 08:30 Vapotherm 4.0 06/29/16 08:01 88 20 98 28 06/29/16 07:47 97.9 113/60 Intake and Output 06/28/16 06/28/16 06/29/16 15:00 23:00 07:00 Intake Total 1660 ml 700 ml Output Total 1200 ml 1200 ml Balance 460 ml -500 ml Exam GENERAL: This is a well-developed, ill-appearing, middle-aged [place] woman, who is alert, in no distress. HEENT: Head atraumatic, normocephalic. Sclerae anicteric. Buccal mucosa pink. NECK: Supple. Tracheostomy present. CHEST: Chest rise is symmetrical. Breath sounds clear, diminished to the bases. HEART: S1, S2. ABDOMEN: Soft, bowel tones present. EXTREMITIES: Without cyanosis. Results Result Diagram: 06/27/1642906/27/16 043 Medications Medications Current Medications Acyclovir (Zovirax) 400 mg BID PO Last administered on 06/29/16t 09:17; Admin Dose 400 MG; Start 06/02/16 at 14:30 Diphenhydramine HCl (Benadryl) 25 mg Q4H PRN IV ALLERGIC REACTION Last administered on 06/06/16at 20:26; Admin Dose 25 MG; Start 06/02/16 at 18:30 Dexamethasone (Decadron) 10 mg Q4H PRN IV ALLERGIC REACTION; Start 06/02/16 at 18:30 Fluconazole 100 mg 100 mg DAILY PO Last administered on 06/08/16at 09:58; Admin Dose 100 MG; Start 06/03/16 at 09:00; Status Future Hold Ondansetron HCl/ Sodium Chloride (Zofran Inj/NS) 54 ml @ 216 mls/hr Q6H PRN IV NAUSEA AND/OR VOMITING Last administered on 06/21/16at 21:18; Admin Dose 216 MLS/HR; Start 06/02/16 at 18:30 Ondansetron HCl (Zofran Inj) 4 mg Q6H PRN IV NAUSEA AND/OR VOMITING Last administered on 06/28/16 21:39; Admin Dose 4 MG; Start 06/03/16 at 17:00 Acetaminophen (Tylenol Tab) 650 mg Q6H PRN PO PAIN LEVEL 1-3 OR FEVER Last administered on 06/24/16 09:16; Admin Dose 650 MG; Start 06/03/16 at 17:00 Acetaminophen (Tylenol Supp) 650 mg Q6H PRN [place] PAIN LEVEL 1-3 OR FEVER Last administered on 06/09/16at 03:37; Admin Dose 650 MG; Start 06/03/16 at 17:00 Docusate Sodium (Colace) 100 mg Q12H PRN PO CONSTIPATION Last administered on 06/20/16at 22:25; Admin Dose 100 MG; Start 06/03/16 at 17:00 Magnesium Hydroxide (Milk Of Mag) 30 ml DAILY PRN PO CONSTIPATION Last administered on 06/20/16 06:13; Admin Dose 30 ML; Start 06/03/16 at 17:00 Bisacodyl (Dulcolax) 5 mg DAILY PRN PO CONSTIPATION; Start 06/03/16 at 17:00 Bisacodyl (Dulcolax Supp) 10 mg DAILY PRN [place] CONSTIPATION Last administered on 06/21/16 05:18; Admin Dose 10 MG; Start 06/03/16 at 17:00 Sodium Biphosphate/ Sodium Phosphate (Fleet Enema) 133 ml DAILY PRN [place] CONSTIPATION; Start 06/03/16 at 17:00 Enoxaparin Sodium (Lovenox) 30 mg DAILY SC Last administered on 06/12/16at 08: 27; Admin Dose 30 MG; Start 06/04/16 at 09:00; Status Future Hold Allopurinol (Zyloprim) 300 mg DAILY PO Last administered on 06/29/16 09:17; Admin Dose 300 MG; Start 06/04/16 at 09:00 Eye Lubricant (Artificial Tears Oph) 2 drop QID BOTH EYES Last administered on 06/29/16 09:16; Admin Dose 2 DROP; Start 06/03/16 at 21:00 Eye Lubricant (Akwa Oint) 1 applic DAILY BOTH EYES Last administered on 09:16; Admin Dose 1 APPLIC; Start 06/04/16 at 09:00 Gabapentin (Neurontin) 200 mg TID PO Last administered on 06/29/16 09:17; Admin Dose 200 MG; Start 06/03/16 at 21:00 Levothyroxine Sodium (Synthroid) 100 mcg DAILY@06 PO Last administered on 06:07; Admin Dose 100 MCG; Start 06/04/16 at 06:00 Pantoprazole (Protonix Iv) 40 mg DAILY@06 IV Last administered on 06/29/16 06: 07; Admin Dose 40 MG; Start 06/09/16 at 06:00 Lorazepam (Ativan) 1 mg Q6H PRN IV AGITATION/ANXIETY Last administered on 16:31; Admin Dose 1 MG; Start 06/08/16 at 18:00 Acetaminophen/ Hydrocodone Bitart ([place] (5/325)) 1 tab Q6H PRN PO PAIN Last administered on 06/11/16at 17:38; Admin Dose 1 TAB; Start 06/11/16 at 17:30 Collagenase (Santyl) 1 applic DAILY TOP Last administered on 06/29/16 09:16; Admin Dose 1 APPLIC; Start 06/12/16 at 09:00 Nystatin 5 ml 5 ml QID PO Last administered on 06/29/16 09:16; Admin Dose 5 ML ; Start 06/18/16 at 17:00 Dextrose/Sodium Chloride (D5-NS) 1,000 ml @ 50 mls/hr Q20H IV Last administered on 06/28/16 18:34; Admin Dose 50 MLS/HR; Start 06/20/16 at 20:00 Scopolamine (Transderm-Scop) 1 patch Q72H TRANSDERM Last administered on 21:41; Admin Dose 1 PATCH; Start 06/22/16 at 21:00 Lactobacillus Acidoph/Bulgaricus (Floranex) 1 tab TID PO Last administered on 09:17; Admin Dose 1 TAB; Start 06/24/16 at 13:00 Doxycycline Hyclate (Vibramycin) 100 mg BID PO Last administered on 06/29/16 09 :17; Admin Dose 100 MG; Start 06/27/16 at 21:00 Lactobacillus Acidoph/Bulgaricus (Floranex) 1 tab TID PO ; Start 06/27/16 at 21: 00 Fluconazole (Diflucan) 100 mg DAILY PO Last administered on 06/29/16 09:17; Admin Dose 100 MG; Start 06/28/16 at 09:00 TELLY SOLANO MD Jun 29, 2016 12:02
--- NOTE | 2016-06-29 13:59 | CONS ---
Date/Time of Note Date/Time of Note DATE: 06/29/16 TIME: 13:58 Consult Date/Type/Reason Admit Date/Time Jun 02, 2016 at 15:10 Initial Consult Date 06/02/16 Type of Consultation: id Ordering Provider: TELLY SOLANO MD Subjective alert, feels good, no n/v/d/sob/fevers Objective Vital Signs Date Time Temp Pulse Resp B/P Pulse Ox O2 Delivery O2 Flow Rate FiO2 06/29/16 12:21 6.0 28 06/29/16 12:17 100 20 99 Aerosol 06/29/16 07:47 97.9 113/60 Intake and Output 06/28/16 06/28/16 06/29/16 15:00 23:00 07:00 Intake Total 1660 ml 700 ml Output Total 1200 ml 1200 ml Balance 460 ml -500 ml Results/Medications Result Diagram: 06/27/16 0430 06/27/16 0430 Medications Current Medications Acyclovir (Zovirax) 400 mg BID PO Last administered on 06/29/16 09:17; Admin Dose 400 MG; Start 06/02/16 at 14:30 Diphenhydramine HCl (Benadryl) 25 mg Q4H PRN IV ALLERGIC REACTION Last administered on 06/06/16at 20:26; Admin Dose 25 MG; Start 06/02/16 at 18:30 Dexamethasone (Decadron) 10 mg Q4H PRN IV ALLERGIC REACTION; Start 06/02/16 at 18:30 Fluconazole 100 mg 100 mg DAILY PO Last administered on 06/08/16at 09:58; Admin Dose 100 MG; Start 06/03/16 at 09:00; Status Future Hold Ondansetron HCl/ Sodium Chloride (Zofran Inj/NS) 54 ml @ 216 mls/hr Q6H PRN IV NAUSEA AND/OR VOMITING Last administered on 06/21/16at 21:18; Admin Dose 216 MLS/HR; Start 06/02/16 at 18:30 Ondansetron HCl (Zofran Inj) 4 mg Q6H PRN IV NAUSEA AND/OR VOMITING Last administered on 06/28/16 21:39; Admin Dose 4 MG; Start 06/03/16 at 17:00 Acetaminophen (Tylenol Tab) 650 mg Q6H PRN PO PAIN LEVEL 1-3 OR FEVER Last administered on 06/24/16 09:16; Admin Dose 650 MG; Start 06/03/16 at 17:00 Acetaminophen (Tylenol Supp) 650 mg Q6H PRN [place] PAIN LEVEL 1-3 OR FEVER Last administered on 06/09/16at 03:37; Admin Dose 650 MG; Start 06/03/16 at 17:00 Docusate Sodium (Colace) 100 mg Q12H PRN PO CONSTIPATION Last administered on 06/20/16 22:25; Admin Dose 100 MG; Start 06/03/16 at 17:00 Magnesium Hydroxide (Milk Of Mag) 30 ml DAILY PRN PO CONSTIPATION Last administered on 06/20/16 06:13; Admin Dose 30 ML; Start 06/03/16 at 17:00 Bisacodyl (Dulcolax) 5 mg DAILY PRN PO CONSTIPATION; Start 06/03/16 at 17:00 Bisacodyl (Dulcolax Supp) 10 mg DAILY PRN [place] CONSTIPATION Last administered on 06/21/16 05:18; Admin Dose 10 MG; Start 06/03/16 at 17:00 Sodium Biphosphate/ Sodium Phosphate (Fleet Enema) 133 ml DAILY PRN [place] CONSTIPATION; Start 06/03/16 at 17:00 Enoxaparin Sodium (Lovenox) 30 mg DAILY SC Last administered on 06/12/16at 08: 27; Admin Dose 30 MG; Start 06/04/16 at 09:00; Status Future Hold Allopurinol (Zyloprim) 300 mg DAILY PO Last administered on 06/29/16 09:17; Admin Dose 300 MG; Start 06/04/16 at 09:00 Eye Lubricant (Artificial Tears Oph) 2 drop QID BOTH EYES Last administered on 06/29/16 12:35; Admin Dose 2 DROP; Start 06/03/16 at 21:00 Eye Lubricant (Akwa Oint) 1 applic DAILY BOTH EYES Last administered on 09:16; Admin Dose 1 APPLIC; Start 06/04/16 at 09:00 Gabapentin (Neurontin) 200 mg TID PO Last administered on 06/29/16 12:34; Admin Dose 200 MG; Start 06/03/16 at 21:00 Levothyroxine Sodium (Synthroid) 100 mcg DAILY@06 PO Last administered on 06:07; Admin Dose 100 MCG; Start 06/04/16 at 06:00 Pantoprazole (Protonix Iv) 40 mg DAILY@06 IV Last administered on 06/29/16 06: 07; Admin Dose 40 MG; Start 06/09/16 at 06:00 Lorazepam (Ativan) 1 mg Q6H PRN IV AGITATION/ANXIETY Last administered on 16:31; Admin Dose 1 MG; Start 06/08/16 at 18:00 Acetaminophen/ Hydrocodone Bitart ([place] (5/325)) 1 tab Q6H PRN PO PAIN Last administered on 06/11/16at 17:38; Admin Dose 1 TAB; Start 06/11/16 at 17:30 Collagenase (Santyl) 1 applic DAILY TOP Last administered on 06/29/16 09:16; Admin Dose 1 APPLIC; Start 06/12/16 at 09:00 Nystatin (Nystatin Susp) 5 ml QID PO Last administered on 06/29/16 12:34; Admin Dose 5 ML; Start 06/18/16 at 17:00 Scopolamine (Transderm-Scop) 1 patch Q72H TRANSDERM Last administered on 21:41; Admin Dose 1 PATCH; Start 06/22/16 at 21:00 Lactobacillus Acidoph/Bulgaricus (Floranex) 1 tab TID PO Last administered on 12:34; Admin Dose 1 TAB; Start 06/24/16 at 13:00 Doxycycline Hyclate (Vibramycin) 100 mg BID PO Last administered on 06/29/16 09 :17; Admin Dose 100 MG; Start 06/27/16 at 21:00 Lactobacillus Acidoph/Bulgaricus (Floranex) 1 tab TID PO ; Start 06/27/16 at 21: 00 Fluconazole (Diflucan) 100 mg DAILY PO Last administered on 06/29/16 09:17; Admin Dose 100 MG; Start 06/28/16 at 09:00 Assessment/Plan Chief Complaint/Hosp Course INDWELLINGS: Trach, PICC line. PHYSICAL EXAMINATION: GENERAL: This is a well-developed, ill-appearing, middle-aged [place] woman, who is alert, in no distress. HEENT: Head atraumatic, normocephalic. Sclerae anicteric. Buccal mucosa pink. NECK: Supple. Tracheostomy present. CHEST: Chest rise is symmetrical. Breath sounds clear, diminished to the bases. HEART: S1, S2. ABDOMEN: Soft, bowel tones present. EXTREMITIES: Without cyanosis. ASSESSMENT: 1. Systemic inflammatory response syndrome, status post fevers. 2. Acute tracheobronchitis, with sputum culture growing methicillin-resistant Staphylococcus aureus. 3. Methicillin-resistant Staphylococcus aureus nares colonization. 4. Stage IIIA Burkitt's lymphoma, in chemotherapy. 5. Respiratory failure secondary to respiratory compromise by neck mass, requiring tracheostomy. 6. Pancytopenia. PLAN: The patient remains stable, continue Doxycycline for 2 weeks for MRSA + sputum, continue Diflucan, pending dc plan. Oncology rec-s [facility] staff Problems: RODRÍGUEZ ERAZO NP Jun 29, 2016 13:59
[2016-06-29] MEDS: ONDANSETRON 4 MG INJ IV PRN (20:28)
[2016-06-29 20:58] VITALS: BP 152/94; RESP 20
[2016-06-30] MEDS: ALBUTEROL/IPRATROPIUM (NEB) 3 ML AMP HHN SCH ×6 (00:21→20:54)
[2016-06-30] MEDS: PANTOPRAZOLE 40 MG INJ IV SCH (05:06)
[2016-06-30] MEDS: LEVOTHYROXINE 100 MCG TAB PO SCH (05:07)
[2016-06-30 05:18] LABS: POTASSIUM 3.1 mmol/L (3.5-5.1)
[2016-06-30 05:20] LABS: INR 1.08; PT RATIO 1.1
[2016-06-30 05:21] LABS: CREATININE 0.26 mg/dl (0.44-1.00); PARTIAL THROMBOPLASTIN TIME 27.5 Sec (25.0-35.0)
[2016-06-30 05:22] LABS: CALCIUM 8.5 mg/dl (8.4-10.2)
[2016-06-30 05:25] LABS: BASOPHILS % 0.5 % (0.0-2.0); EOSINOPHILS % 0.5 % (0.0-7.0); HEMOGLOBIN 8.3 g/dl (12.0-16.0); LYMPHOCYTES # 2.4 10^3/ul (0.8-2.9); LYMPHOCYTES % 40.9 % (15.0-51.0); MEAN CORPUSCULAR HEMOGLOBIN 29.4 pg (29.0-33.0); MEAN CORPUSCULAR HGB CONC 34.7 g/dl (32.0-37.0); MEAN CORPUSCULAR VOLUME 84.7 fl (82.0-101.0); MEAN PLATELET VOLUME 6.6 fl (7.4-10.4); MONOCYTE # 0.3 10^3/ul (0.3-0.9); MONOCYTES % 4.9 % (0.0-11.0); NEUTROPHIL # 3.1 10^3/ul (1.6-7.5); NEUTROPHILS % 53.2 % (39.0-77.0); PLATELET COUNT 159 10^3/UL (140-440); RED BLOOD COUNT 2.84 10^6/ul (4.20-5.40); RED CELL DISTRIBUTION WIDTH 16.2 % (11.5-14.5); UNCORRECTED WBC 5.9 10^3/ul (4.8-10.8); WHITE BLOOD COUNT 5.9 10^3/ul (4.8-10.8)
[2016-06-30 05:42] LABS: CONDITION 1
[2016-06-30 05:43] LABS: LH ANALYZER COMMENTS 1
[2016-06-30 08:33] VITALS: BP 115/71; RESP 20
[2016-06-30] MEDS: ALLOPURINOL 300 MG TAB PO SCH (08:45)
[2016-06-30] MEDS: DOXYCYCLINE 100 MG TAB PO SCH ×2 (08:45→21:51)
[2016-06-30] MEDS: GABAPENTIN 100 MG CAP PO SCH ×3 (08:45→21:50)
[2016-06-30] MEDS: FLUCONAZOLE 100 MG TAB PO SCH (08:45)
[2016-06-30] MEDS: LACTOBACILLUS CHEW TAB PO SCH ×4 (08:45→21:50)
[2016-06-30] MEDS: ARTIFICIAL TEARS 15 ML OPH BOTH EYES SCH ×4 (08:45→21:50)
[2016-06-30] MEDS: ACYCLOVIR 400 MG TAB PO SCH ×2 (08:45→21:50)
[2016-06-30] MEDS: COLLAGENASE 30 GM TUBE TOP SCH (08:51)
[2016-06-30] MEDS: OCULAR LUBRICANT 3.5 GM OPH OINT BOTH EYES SCH ×2 (09:00→10:57)
[2016-06-30] MEDS: NYSTATIN SUSP 5 ML CUP PO SCH ×5 (09:00→21:50)
[2016-06-30] MEDS: POTASSIUM CHLORIDE (SR) 10 MEQ TAB PO SCH ×2 (10:56→21:51)
--- NOTE | 2016-06-30 11:44 | CONS ---
Date/Time of Note Date/Time of Note DATE: 06/30/16 TIME: 11:42 Consult Date/Type/Reason Admit Date/Time Jun 02, 2016 at 15:10 Initial Consult Date 06/02/16 Type of Consultation: id Ordering Provider: TELLY SOLANO MD Subjective alert, feels good, no fevers/sob/n/v/d Objective Vital Signs Date Time Temp Pulse Resp B/P Pulse Ox O2 Delivery O2 Flow Rate FiO2 06/30/16 09:33 80 20 99 Aerosol 5.0 28 06/30/16 08:33 98.1 115/71 Intake and Output 06/29/16 06/29/16 06/30/16 15:00 23:00 07:00 Intake Total 320 ml 300 ml 120 ml Output Total 800 ml 400 ml Balance 320 ml -500 ml -280 ml Results/Medications Result Diagram: 06/30/16 0430 06/30/16 0430 Results 24 hrs Laboratory Tests Test 06/30/16 04:30 Activated Partial Thromboplast Time 27.5 Anion Gap 13 Basophils # 0.0 Basophils % 0.5 Blood Morphology Comment Blood Urea Nitrogen 4 L Calcium Level 8.5 Carbon Dioxide Level 29 Chloride Level 103 Creatinine 0.26 L Eosinophils # 0.0 Eosinophils % 0.5 Glucose Level 90 Hematocrit 24.0 L Hemoglobin 8.3 L INR International Normalized Ratio 1.08 Lymphocytes # 2.4 Lymphocytes % 40.9 Mean Corpuscular Hemoglobin 29.4 Mean Corpuscular Hemoglobin Concent 34.7 Mean Corpuscular Volume 84.7 Mean Platelet Volume 6.6 #L Monocytes # 0.3 Monocytes % 4.9 Neutrophils # 3.1 Neutrophils % 53.2 Nucleated Red Blood Cells # 0.0 Nucleated Red Blood Cells % 0.0 Platelet Count 159 # Potassium Level 3.1 L Prothrombin Time 14.0 Prothrombin Time Ratio 1.1 Red Blood Count 2.84 L Red Cell Distribution Width 16.2 H Sodium Level 142 White Blood Count 5.9 # Medications Current Medications Acyclovir (Zovirax) 400 mg BID PO Last administered on 06/30/16t 08:45; Admin Dose 400 MG; Start 06/02/16 at 14:30 Diphenhydramine HCl (Benadryl) 25 mg Q4H PRN IV ALLERGIC REACTION Last administered on 06/06/16at 20:26; Admin Dose 25 MG; Start 06/02/16 at 18:30 Dexamethasone (Decadron) 10 mg Q4H PRN IV ALLERGIC REACTION; Start 06/02/16 at 18:30 Fluconazole 100 mg 100 mg DAILY PO Last administered on 06/08/16at 09:58; Admin Dose 100 MG; Start 06/03/16 at 09:00; Status Future Hold Ondansetron HCl/ Sodium Chloride (Zofran Inj/NS) 54 ml @ 216 mls/hr Q6H PRN IV NAUSEA AND/OR VOMITING Last administered on 06/21/16at 21:18; Admin Dose 216 MLS/HR; Start 06/02/16 at 18:30 Ondansetron HCl (Zofran Inj) 4 mg Q6H PRN IV NAUSEA AND/OR VOMITING Last administered on 06/29/16 20:28; Admin Dose 4 MG; Start 06/03/16 at 17:00 Acetaminophen (Tylenol Tab) 650 mg Q6H PRN PO PAIN LEVEL 1-3 OR FEVER Last administered on 06/24/16 09:16; Admin Dose 650 MG; Start 06/03/16 at 17:00 Acetaminophen (Tylenol Supp) 650 mg Q6H PRN [place] PAIN LEVEL 1-3 OR FEVER Last administered on 06/09/16at 03:37; Admin Dose 650 MG; Start 06/03/16 at 17:00 Docusate Sodium (Colace) 100 mg Q12H PRN PO CONSTIPATION Last administered on 06/20/16at 22:25; Admin Dose 100 MG; Start 06/03/16 at 17:00 Magnesium Hydroxide (Milk Of Mag) 30 ml DAILY PRN PO CONSTIPATION Last administered on 06/20/16at 06:13; Admin Dose 30 ML; Start 06/03/16 at 17:00 Bisacodyl (Dulcolax) 5 mg DAILY PRN PO CONSTIPATION; Start 06/03/16 at 17:00 Bisacodyl (Dulcolax Supp) 10 mg DAILY PRN [place] CONSTIPATION Last administered on 06/21/16at 05:18; Admin Dose 10 MG; Start 06/03/16 at 17:00 Sodium Biphosphate/ Sodium Phosphate (Fleet Enema) 133 ml DAILY PRN [place] CONSTIPATION; Start 06/03/16 at 17:00 Enoxaparin Sodium (Lovenox) 30 mg DAILY SC Last administered on 06/12/16at 08: 27; Admin Dose 30 MG; Start 06/04/16 at 09:00; Status Future Hold Allopurinol (Zyloprim) 300 mg DAILY PO Last administered on 06/30/16 08:45; Admin Dose 300 MG; Start 06/04/16 at 09:00 Eye Lubricant (Artificial Tears Oph) 2 drop QID BOTH EYES Last administered on 06/30/16 08:45; Admin Dose 2 DROP; Start 06/03/16 at 21:00 Eye Lubricant (Akwa Oint) 1 applic DAILY BOTH EYES Last administered on 10:57; Admin Dose 1 APPLIC; Start 06/04/16 at 09:00 Gabapentin (Neurontin) 200 mg TID PO Last administered on 06/30/16 08:45; Admin Dose 200 MG; Start 06/03/16 at 21:00 Levothyroxine Sodium (Synthroid) 100 mcg DAILY@06 PO Last administered on 05:07; Admin Dose 100 MCG; Start 06/04/16 at 06:00 Pantoprazole (Protonix Iv) 40 mg DAILY@06 IV Last administered on 06/30/16 05: 06; Admin Dose 40 MG; Start 06/09/16 at 06:00 Lorazepam (Ativan) 1 mg Q6H PRN IV AGITATION/ANXIETY Last administered on 16:31; Admin Dose 1 MG; Start 06/08/16 at 18:00 Acetaminophen/ Hydrocodone Bitart ([place] (5/325)) 1 tab Q6H PRN PO PAIN Last administered on 06/11/16at 17:38; Admin Dose 1 TAB; Start 06/11/16 at 17:30 Collagenase (Santyl) 1 applic DAILY TOP Last administered on 06/30/16 08:51; Admin Dose 1 APPLIC; Start 06/12/16 at 09:00 Nystatin (Nystatin Susp) 5 ml QID PO Last administered on 06/30/16 10:56; Admin Dose 5 ML; Start 06/18/16 at 17:00 Scopolamine (Transderm-Scop) 1 patch Q72H TRANSDERM Last administered on 21:41; Admin Dose 1 PATCH; Start 06/22/16 at 21:00 Doxycycline Hyclate (Vibramycin) 100 mg BID PO Last administered on 06/30/16 08 :45; Admin Dose 100 MG; Start 06/27/16 at 21:00 Lactobacillus Acidoph/Bulgaricus (Floranex) 1 tab TID PO ; Start 06/27/16 at 21: 00 Fluconazole (Diflucan) 100 mg DAILY PO Last administered on 06/30/16 08:45; Admin Dose 100 MG; Start 06/28/16 at 09:00 Potassium Chloride (Klor-Con 10) 10 meq BID PO Last administered on 06/30/16 10 :56; Admin Dose 10 MEQ; Start 06/30/16 at 10:00 Assessment/Plan Chief Complaint/Hosp Course INDWELLINGS: Trach, PICC line. PHYSICAL EXAMINATION: GENERAL: This is a well-developed, ill-appearing, middle-aged [place]an woman, who is alert, in no distress. HEENT: Head atraumatic, normocephalic. Sclerae anicteric. Buccal mucosa pink. NECK: Supple. Tracheostomy present. CHEST: Chest rise is symmetrical. Breath sounds clear, diminished to the bases. HEART: S1, S2. ABDOMEN: Soft, bowel tones present. EXTREMITIES: Without cyanosis. ASSESSMENT: 1. S/p Systemic inflammatory response syndrome. 2. S/p acute tracheobronchitis, with sputum culture growing methicillin- resistant Staphylococcus aureus. 3. Methicillin-resistant Staphylococcus aureus nares colonization. 4. Stage IIIA Burkitt's lymphoma, in chemotherapy. 5. Respiratory failure secondary to respiratory compromise by neck mass, requiring tracheostomy. 6. Pancytopenia==> resolved. PLAN: Remains stable, continue Doxycycline for 2 weeks for MRSA + sputum, continue Diflucan, repeat nares swab for MRSA. DW staff Problems: RODRÍGUEZ ERAZO NP Jun 30, 2016 11:43
--- NOTE | 2016-06-30 12:31 | CONS ---
Date/Time of Note Date/Time of Note DATE: 06/30/16 TIME: : Assessment/Plan Assessment/Plan Chief Complaint/Hosp Course 56 yo female with massive neck mass causing tracheal compression and airway compromise s/p tracheostomy placement. 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 Pt was given cycle 1A and 1B of R HyperCVAD but had only a partial response to therapy and severe side effects. We have thus changed her chemotherapy regimen. She is now being admitted for cycle 1 of R-CODOX-M and has now completed her chemotherapy. Most recent CT neck showed resolution of the mass. Pt's counts are now improving and she is no longer transfusion dependant. Problems: Additional Assessment/Plan # Burkitt's lymphoma -s/p cycle 1 R CODOX -M. cycle started on 06/03 -Rituximab (Rituxan) as follows: * Cycle 1: 375 mg/m2 (660mg) IV on Day 1 -Cyclophosphamide (Cytoxan) 800 mg/m2 ( 1415mg) IV once per day on days 1 & 2 -Vincristine (Oncovin) 1.0 mg (dose reduced for neuropathy) days 1 & 15 . given on 06/17 -Doxorubicin (Adriamycin) 50 mg/m2 (88mg) IV once on day 1 -Methotrexate (MTX) 100mg/m2 (175mg) IV over 1 hour then 900mg/m2 (1590mg) over 23 hours on day 15. will start IVF with 2 amps Na HCo3 prior to MTX infusion since Urine Ph > 7.0. Leucovorin 25mg IV q 4 hours will start 36 hours after MTX starts until MTX level is < 0.05. next dose due today 06/16. Methotrexate at 72 hours is 0.05, which is at goal. Can stop bicarb and leucovorin, can stop checking urine pH. -patients counts have recovered. given the problems with discharge she is ready to start her next cycle. will start R IVAC in house. chemo orders written. will start once meds arrive # Neutropenic fever -pt is now afebrile and will dc precautions # Supportive Care and prophylactic meds -Started Acyclovir 400mg BID -fluconazole 100mg q day -Neupogen 300mcg q day -Zofran ordered prn nausea #Expected Pancytopenia -keep Hg> 8 and platelets > 10. pt to get 1 units of prbc today # Elevated AST and ALT, likely related to methotrexate. 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 all steroids should be discontinued for now unless they are part of the chemotherapy regimen -continue to work with physical therapy. 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 -uric acid level ok Approximately 40 min were spent at patient's bedside and in coordination of her care Consultation Date/Type/Reason Admit Date/Time Jun 02, 2016 at 15:10 Initial Consult Date 06/02/16 Type of Consultation: hematology Reason for Consultation Burkitt's lymphoma Referring Provider: TELLY SOLANO MD 24 HR Interval Summary Free Text/Dictation pt's counts continue to recover. no bleeding. no fevers Exam/Review of Systems Vital Signs Vitals Vital Signs Date Time Temp Pulse Resp B/P Pulse Ox O2 Delivery O2 Flow Rate FiO2 06/30/16 12:19 92 20 96 Aerosol 5.0 28 06/30/16 08:33 98.1 115/71 Intake and Output 06/29/16 06/29/16 06/30/16 15:00 23:00 07:00 Intake Total 320 ml 300 ml 120 ml Output Total 800 ml 400 ml Balance 320 ml -500 ml -280 ml Exam Constitutional: alert, oriented Psych: no complaints Head: normocephalic Eyes: EOMI, nl conjunctiva ENMT: other (trach in place) Neck: masses (resolved), supple Respiratory: clear to auscultation, normal air movement Cardiovascular: nl pulses, regular rate and rhythm Gastrointestinal: soft Musculoskeletal: nl extremities to inspection, nl gait and stance Results Result Diagram: 06/30/1642906/30/16 0430 Results 24 hrs Laboratory Tests Test 06/30/16 04:30 Activated Partial Thromboplast Time 27.5 Anion Gap 13 Basophils # 0.0 Basophils % 0.5 Blood Morphology Comment Blood Urea Nitrogen 4 L Calcium Level 8.5 Carbon Dioxide Level 29 Chloride Level 103 Creatinine 0.26 L Eosinophils # 0.0 Eosinophils % 0.5 Glucose Level 90 Hematocrit 24.0 L Hemoglobin 8.3 L INR International Normalized Ratio 1.08 Lymphocytes # 2.4 Lymphocytes % 40.9 Mean Corpuscular Hemoglobin 29.4 Mean Corpuscular Hemoglobin Concent 34.7 Mean Corpuscular Volume 84.7 Mean Platelet Volume 6.6 #L Monocytes # 0.3 Monocytes % 4.9 Neutrophils # 3.1 Neutrophils % 53.2 Nucleated Red Blood Cells # 0.0 Nucleated Red Blood Cells % 0.0 Platelet Count 159 # Potassium Level 3.1 L Prothrombin Time 14.0 Prothrombin Time Ratio 1.1 Red Blood Count 2.84 L Red Cell Distribution Width 16.2 H Sodium Level 142 White Blood Count 5.9 # Medications Medications Current Medications Acyclovir (Zovirax) 400 mg BID PO Last administered on 06/30/16 08:45; Admin Dose 400 MG; Start 06/02/16 at 14:30 Diphenhydramine HCl (Benadryl) 25 mg Q4H PRN IV ALLERGIC REACTION Last administered on 06/06/16 20:26; Admin Dose 25 MG; Start 06/02/16 at 18:30 Dexamethasone (Decadron) 10 mg Q4H PRN IV ALLERGIC REACTION; Start 06/02/16 at 18:30 Fluconazole 100 mg 100 mg DAILY PO Last administered on 06/08/16at 09:58; Admin Dose 100 MG; Start 06/03/16 at 09:00; Status Future Hold Ondansetron HCl/ Sodium Chloride (Zofran Inj/NS) 54 ml @ 216 mls/hr Q6H PRN IV NAUSEA AND/OR VOMITING Last administered on 06/21/16 21:18; Admin Dose 216 MLS/HR; Start 06/02/16 at 18:30 Ondansetron HCl (Zofran Inj) 4 mg Q6H PRN IV NAUSEA AND/OR VOMITING Last administered on 06/29/16 20:28; Admin Dose 4 MG; Start 06/03/16 at 17:00 Acetaminophen (Tylenol Tab) 650 mg Q6H PRN PO PAIN LEVEL 1-3 OR FEVER Last administered on 06/24/16 09:16; Admin Dose 650 MG; Start 06/03/16 at 17:00 Acetaminophen (Tylenol Supp) 650 mg Q6H PRN [place] PAIN LEVEL 1-3 OR FEVER Last administered on 06/09/16at 03:37; Admin Dose 650 MG; Start 06/03/16 at 17:00 Docusate Sodium (Colace) 100 mg Q12H PRN PO CONSTIPATION Last administered on 06/20/16 22:25; Admin Dose 100 MG; Start 06/03/16 at 17:00 Magnesium Hydroxide (Milk Of Mag) 30 ml DAILY PRN PO CONSTIPATION Last administered on 06/20/16at 06:13; Admin Dose 30 ML; Start 06/03/16 at 17:00 Bisacodyl (Dulcolax) 5 mg DAILY PRN PO CONSTIPATION; Start 06/03/16 at 17:00 Bisacodyl (Dulcolax Supp) 10 mg DAILY PRN [place] CONSTIPATION Last administered on 06/21/16at 05:18; Admin Dose 10 MG; Start 06/03/16 at 17:00 Sodium Biphosphate/ Sodium Phosphate (Fleet Enema) 133 ml DAILY PRN [place] CONSTIPATION; Start 06/03/16 at 17:00 Enoxaparin Sodium (Lovenox) 30 mg DAILY SC Last administered on 06/12/16at 08: 27; Admin Dose 30 MG; Start 06/04/16 at 09:00; Status Future Hold Allopurinol (Zyloprim) 300 mg DAILY PO Last administered on 06/30/16 08:45; Admin Dose 300 MG; Start 06/04/16 at 09:00 Eye Lubricant (Artificial Tears Oph) 2 drop QID BOTH EYES Last administered on 06/30/16 08:45; Admin Dose 2 DROP; Start 06/03/16 at 21:00 Eye Lubricant ([place]wa Oint) 1 applic DAILY BOTH EYES Last administered on 10:57; Admin Dose 1 APPLIC; Start 06/04/16 at 09:00 Gabapentin (Neurontin) 200 mg TID PO Last administered on 06/30/16 08:45; Admin Dose 200 MG; Start 06/03/16 at 21:00 Levothyroxine Sodium (Synthroid) 100 mcg DAILY@06 PO Last administered on 05:07; Admin Dose 100 MCG; Start 06/04/16 at 06:00 Pantoprazole (Protonix Iv) 40 mg DAILY@06 IV Last administered on 06/30/16 05: 06; Admin Dose 40 MG; Start 06/09/16 at 06:00 Lorazepam (Ativan) 1 mg Q6H PRN IV AGITATION/ANXIETY Last administered on 16:31; Admin Dose 1 MG; Start 06/08/16 at 18:00 Acetaminophen/ Hydrocodone Bitart ([place] (5/325)) 1 tab Q6H PRN PO PAIN Last administered on 06/11/16at 17:38; Admin Dose 1 TAB; Start 06/11/16 at 17:30 Collagenase (Santyl) 1 applic DAILY TOP Last administered on 06/30/16 08:51; Admin Dose 1 APPLIC; Start 06/12/16 at 09:00 Nystatin (Nystatin Susp) 5 ml QID PO Last administered on 06/30/16 10:56; Admin Dose 5 ML; Start 06/18/16 at 17:00 Scopolamine (Transderm-Scop) 1 patch Q72H TRANSDERM Last administered on 21:41; Admin Dose 1 PATCH; Start 06/22/16 at 21:00 Doxycycline Hyclate (Vibramycin) 100 mg BID PO Last administered on 06/30/16 08 :45; Admin Dose 100 MG; Start 06/27/16 at 21:00 Lactobacillus Acidoph/Bulgaricus (Floranex) 1 tab TID PO ; Start 06/27/16 at 21: 00 Fluconazole (Diflucan) 100 mg DAILY PO Last administered on 06/30/16 08:45; Admin Dose 100 MG; Start 06/28/16 at 09:00 Potassium Chloride (Klor-Con 10) 10 meq BID PO Last administered on 06/30/16 10 :56; Admin Dose 10 MEQ; Start 06/30/16 at 10:00 CHANDRIKA MERLOS M.D. Jun 30, 2016 12:31 CHANDRIKA MERLOS M.D. Jun 30, 2016 12:31
[2016-06-30 13:29] VITALS: Ht 162.6 cm; Wt 70.6 kg
--- NOTE | 2016-06-30 16:50 | PN ---
Date/Time of Note Date/Time of Note DATE: 06/30/16 TIME: 16:47 Assessment/Plan VTE Prophylaxis VTE Prophylaxis Intervention: other Lines/Catheters IV Catheter Type (from Nrs): PICC Line Central line still needed: Yes Urinary Cath still in place: No Assessment/Plan Chief Complaint/Hosp Course IMPRESSION: The patient has Burkitt's lymphoma status post tracheostomy, status post thyroid mass, status post pancytopenia, abnormal liver function test. better The patient has PANCYTOPENIA, ON CHEMO better SEPSIS better gallstone ABN LFT better hypokalemia PLAN PER DR CHELITA willams to [facility] [place] dr lockett to see for decaulation Problems: Subjective 24 Hr Interval Summary Respiratory: no complaints Gastrointestinal: no complaints Exam/Review of Systems Vital Signs Vitals Vital Signs Date Time Temp Pulse Resp B/P Pulse Ox O2 Delivery O2 Flow Rate FiO2 06/30/16 16:11 5.0 28 06/30/16 12:19 92 20 96 Aerosol 06/30/16 08:33 98.1 115/71 Intake and Output 06/29/16 06/29/16 06/30/16 15:00 23:00 07:00 Intake Total 320 ml 300 ml 120 ml Output Total 800 ml 400 ml Balance 320 ml -500 ml -280 ml Exam Respiratory: clear to auscultation Cardiovascular: regular rate and rhythm Gastrointestinal: soft Musculoskeletal: nl extremities to inspection Results Result Diagram: 06/30/16 0430 06/30/16 0430 Results 24 hrs Laboratory Tests Test 06/30/16 04:30 Activated Partial Thromboplast Time 27.5 Anion Gap 13 Basophils # 0.0 Basophils % 0.5 Blood Morphology Comment Blood Urea Nitrogen 4 L Calcium Level 8.5 Carbon Dioxide Level 29 Chloride Level 103 Creatinine 0.26 L Eosinophils # 0.0 Eosinophils % 0.5 Glucose Level 90 Hematocrit 24.0 L Hemoglobin 8.3 L INR International Normalized Ratio 1.08 Lymphocytes # 2.4 Lymphocytes % 40.9 Mean Corpuscular Hemoglobin 29.4 Mean Corpuscular Hemoglobin Concent 34.7 Mean Corpuscular Volume 84.7 Mean Platelet Volume 6.6 #L Monocytes # 0.3 Monocytes % 4.9 Neutrophils # 3.1 Neutrophils % 53.2 Nucleated Red Blood Cells # 0.0 Nucleated Red Blood Cells % 0.0 Platelet Count 159 # Potassium Level 3.1 L Prothrombin Time 14.0 Prothrombin Time Ratio 1.1 Red Blood Count 2.84 L Red Cell Distribution Width 16.2 H Sodium Level 142 White Blood Count 5.9 # Medications Medications Current Medications Acyclovir (Zovirax) 400 mg BID PO Last administered on 06/30/16 08:45; Admin Dose 400 MG; Start 06/02/16 at 14:30 Diphenhydramine HCl (Benadryl) 25 mg Q4H PRN IV ALLERGIC REACTION Last administered on 06/06/16 20:26; Admin Dose 25 MG; Start 06/02/16 at 18:30 Dexamethasone (Decadron) 10 mg Q4H PRN IV ALLERGIC REACTION; Start 06/02/16 at 18:30 Fluconazole 100 mg 100 mg DAILY PO Last administered on 06/08/16 09:58; Admin Dose 100 MG; Start 06/03/16 at 09:00; Status Future Hold Ondansetron HCl/ Sodium Chloride (Zofran Inj/NS) 54 ml @ 216 mls/hr Q6H PRN IV NAUSEA AND/OR VOMITING Last administered on 06/21/16 21:18; Admin Dose 216 MLS/HR; Start 06/02/16 at 18:30 Ondansetron HCl (Zofran Inj) 4 mg Q6H PRN IV NAUSEA AND/OR VOMITING Last administered on 06/29/16 20:28; Admin Dose 4 MG; Start 06/03/16 at 17:00 Acetaminophen (Tylenol Tab) 650 mg Q6H PRN PO PAIN LEVEL 1-3 OR FEVER Last administered on 06/24/16 09:16; Admin Dose 650 MG; Start 06/03/16 at 17:00 Acetaminophen (Tylenol Supp) 650 mg Q6H PRN [place] PAIN LEVEL 1-3 OR FEVER Last administered on 06/09/16 03:37; Admin Dose 650 MG; Start 06/03/16 at 17:00 Docusate Sodium (Colace) 100 mg Q12H PRN PO CONSTIPATION Last administered on 06/20/16 22:25; Admin Dose 100 MG; Start 06/03/16 at 17:00 Magnesium Hydroxide (Milk Of Mag) 30 ml DAILY PRN PO CONSTIPATION Last administered on 06/20/16 06:13; Admin Dose 30 ML; Start 06/03/16 at 17:00 Bisacodyl (Dulcolax) 5 mg DAILY PRN PO CONSTIPATION; Start 06/03/16 at 17:00 Bisacodyl (Dulcolax Supp) 10 mg DAILY PRN [place] CONSTIPATION Last administered on 06/21/16 05:18; Admin Dose 10 MG; Start 06/03/16 at 17:00 Sodium Biphosphate/ Sodium Phosphate (Fleet Enema) 133 ml DAILY PRN [place] CONSTIPATION; Start 06/03/16 at 17:00 Enoxaparin Sodium (Lovenox) 30 mg DAILY SC Last administered on 06/12/16 08: 27; Admin Dose 30 MG; Start 06/04/16 at 09:00; Status Future Hold Allopurinol (Zyloprim) 300 mg DAILY PO Last administered on 06/30/16 08:45; Admin Dose 300 MG; Start 06/04/16 at 09:00 Eye Lubricant (Artificial Tears Oph) 2 drop QID BOTH EYES Last administered on 06/30/16 13:30; Admin Dose 2 DROP; Start 06/03/16 at 21:00 Eye Lubricant (Akwa Oint) 1 applic DAILY BOTH EYES Last administered on 10:57; Admin Dose 1 APPLIC; Start 06/04/16 at 09:00 Gabapentin (Neurontin) 200 mg TID PO Last administered on 06/30/16 13:27; Admin Dose 200 MG; Start 06/03/16 at 21:00 Levothyroxine Sodium (Synthroid) 100 mcg DAILY@06 PO Last administered on 05:07; Admin Dose 100 MCG; Start 06/04/16 at 06:00 Pantoprazole (Protonix Iv) 40 mg DAILY@06 IV Last administered on 06/30/16 05: 06; Admin Dose 40 MG; Start 06/09/16 at 06:00 Lorazepam (Ativan) 1 mg Q6H PRN IV AGITATION/ANXIETY Last administered on 16:31; Admin Dose 1 MG; Start 06/08/16 at 18:00 Acetaminophen/ Hydrocodone Bitart ([place] (5/325)) 1 tab Q6H PRN PO PAIN Last administered on 06/11/16at 17:38; Admin Dose 1 TAB; Start 06/11/16 at 17:30 Collagenase (Santyl) 1 applic DAILY TOP Last administered on 06/30/16 08:51; Admin Dose 1 APPLIC; Start 06/12/16 at 09:00 Nystatin (Nystatin Susp) 5 ml QID PO Last administered on 06/30/16 13:27; Admin Dose 5 ML; Start 06/18/16 at 17:00 Scopolamine (Transderm-Scop) 1 patch Q72H TRANSDERM Last administered on 21:41; Admin Dose 1 PATCH; Start 06/22/16 at 21:00 Doxycycline Hyclate (Vibramycin) 100 mg BID PO Last administered on 06/30/16 08 :45; Admin Dose 100 MG; Start 06/27/16 at 21:00 Lactobacillus Acidoph/Bulgaricus (Floranex) 1 tab TID PO Last administered on 13:27; Admin Dose 1 TAB; Start 06/27/16 at 21:00 Fluconazole (Diflucan) 100 mg DAILY PO Last administered on 06/30/16 08:45; Admin Dose 100 MG; Start 06/28/16 at 09:00 Potassium Chloride (Klor-Con 10) 10 meq BID PO Last administered on 06/30/16 10 :56; Admin Dose 10 MEQ; Start 06/30/16 at 10:00 GUERLINE SULLIVAN MD Jun 30, 2016 16:50
[2016-06-30 20:30] VITALS: BP 109/61; RESP 19
[2016-07-01] VITALS (7 sets, daily range): BP systolic 118–133; BP diastolic 68–77; PULSE 93–104; RESP 18–20
[2016-07-01] MEDS: ALBUTEROL/IPRATROPIUM (NEB) 3 ML AMP HHN SCH ×6 (01:43→20:26)
[2016-07-01 06:01] LABS: POTASSIUM 3.2 mmol/L (3.5-5.1)
[2016-07-01 06:04] LABS: CREATININE 0.29 mg/dl (0.44-1.00)
[2016-07-01 06:05] LABS: CALCIUM 8.5 mg/dl (8.4-10.2)
[2016-07-01] MEDS: PANTOPRAZOLE 40 MG INJ IV SCH (06:51)
[2016-07-01] MEDS: LEVOTHYROXINE 100 MCG TAB PO SCH (06:51)
[2016-07-01] MEDS: ACYCLOVIR 400 MG TAB PO SCH ×2 (09:38→20:15)
[2016-07-01] MEDS: LACTOBACILLUS CHEW TAB PO SCH ×3 (09:38→20:15)
[2016-07-01] MEDS: POTASSIUM CHLORIDE (SR) 10 MEQ TAB PO SCH ×2 (09:38→20:16)
[2016-07-01] MEDS: NYSTATIN SUSP 5 ML CUP PO SCH ×4 (09:38→20:16)
[2016-07-01] MEDS: FLUCONAZOLE 100 MG TAB PO SCH (09:38)
[2016-07-01] MEDS: ARTIFICIAL TEARS 15 ML OPH BOTH EYES SCH ×4 (09:39→20:16)
[2016-07-01] MEDS: COLLAGENASE 30 GM TUBE TOP SCH (09:39)
[2016-07-01] MEDS: GABAPENTIN 100 MG CAP PO SCH ×3 (09:39→20:15)
[2016-07-01] MEDS: ALLOPURINOL 300 MG TAB PO SCH (09:39)
[2016-07-01] MEDS: DOXYCYCLINE 100 MG TAB PO SCH ×2 (09:39→20:15)
[2016-07-01] MEDS: OCULAR LUBRICANT 3.5 GM OPH OINT BOTH EYES SCH (09:40)
[2016-07-01 11:11] LABS: HEMATOCRIT 24.4 % (37.0-47.0); HEMOGLOBIN 8.5 g/dl (12.0-16.0); MEAN CORPUSCULAR HEMOGLOBIN 29.4 pg (29.0-33.0); MEAN CORPUSCULAR HGB CONC 34.7 g/dl (32.0-37.0); MEAN CORPUSCULAR VOLUME 84.9 fl (82.0-101.0); MEAN PLATELET VOLUME 6.7 fl (7.4-10.4); PLATELET COUNT 203 10^3/UL (140-440); RED BLOOD COUNT 2.88 10^6/ul (4.20-5.40); RED CELL DISTRIBUTION WIDTH 16.2 % (11.5-14.5); UNCORRECTED WBC 6.3 10^3/ul (4.8-10.8); WHITE BLOOD COUNT 6.3 10^3/ul (4.8-10.8)
[2016-07-01 11:16] LABS: CONDITION 1; SUSPECT 1
[2016-07-01 11:17] LABS: LH ANALYZER COMMENTS 1
[2016-07-01 11:24] LABS: ALBUMIN 2.4 g/dl (3.3-4.9)
[2016-07-01 11:25] LABS: POTASSIUM 3.5 mmol/L (3.5-5.1)
[2016-07-01 11:27] LABS: ALBUMIN/GLOBULIN RATIO 1.2; BILIRUBIN,INDIRECT 0.1 mg/dl (0-1.1); BILIRUBIN,TOTAL 0.1 mg/dl (0.2-1.3); CALCIUM 8.3 mg/dl (8.4-10.2); CREATININE 0.28 mg/dl (0.44-1.00); TOTAL PROTEIN 4.4 g/dl (6.1-8.1)
[2016-07-01] MEDS: ONDANSETRON 4 MG INJ IV PRN (12:19)
[2016-07-01 12:58] LABS: LYMPHOCYTES # 2.3 10^3/ul (0.8-2.9); MONOCYTE # 0.4 10^3/ul (0.3-0.9); MYELOCYTES # 0.1; NEUTROPHIL # 2.7 10^3/ul (1.6-7.5)
--- NOTE | 2016-07-01 13:05 | CONS ---
Date/Time of Note Date/Time of Note DATE: 07/01/16 TIME: 13:04 Consult Date/Type/Reason Admit Date/Time Jun 02, 2016 at 15:10 Initial Consult Date 06/02/16 Type of Consultation: ID Ordering Provider: TELLY SOLANO MD Subjective NO ACUTE CHANGES, alert, was nauseated earlier, no vomiting, no diarrhea, nad Objective Vital Signs Date Time Temp Pulse Resp B/P Pulse Ox O2 Delivery O2 Flow Rate FiO2 07/01/16 12:38 91 18 100 Aerosol 28 T Tube 07/01/16 09:00 4.0 07/01/16 08:35 98.0 Intake and Output 06/30/16 06/30/16 07/01/16 15:00 23:00 07:00 Intake Total 240 ml 200 ml Output Total 600 ml Balance 240 ml -400 ml Results/Medications Result Diagram: 07/01/16 1025 07/01/16 1025 Results 24 hrs Laboratory Tests Test 07/01/16 04:45 07/01/16 10:25 Anion Gap 11 12 Blood Urea Nitrogen 6 L 6 L Calcium Level 8.5 8.3 L Carbon Dioxide Level 30 30 Chloride Level 105 103 Creatinine 0.29 L 0.28 L Glucose Level 88 92 Potassium Level 3.2 L 3.5 Sodium Level 143 141 Alanine Aminotransferase (ALT/SGPT) 50 Albumin 2.4 L Albumin/Globulin Ratio 1.20 Alkaline Phosphatase 108 Aspartate Amino Transf (AST/SGOT) 37 Band Neutrophils % 10.0 H Blood Morphology Comment Direct Bilirubin 0.00 Globulin 2.00 Hematocrit 24.4 L Hemoglobin 8.5 L Indirect Bilirubin 0.1 Lactate Dehydrogenase 677 H Lactic Acid Level 0.8 Lymphocytes # 2.3 Lymphocytes % 37.0 Mean Corpuscular Hemoglobin 29.4 Mean Corpuscular Hemoglobin Concent 34.7 Mean Corpuscular Volume 84.9 Mean Platelet Volume 6.7 L Metamyelocytes # 0.1 Metamyelocytes % 2.0 H Monocytes # 0.4 Monocytes % 6.0 Myelocytes # 0.1 Myelocytes % 2.0 H Neutrophils # 2.7 Neutrophils % 43.0 Nucleated Red Blood Cells % 2.0 H Platelet Count 203 # Red Blood Count 2.88 L Red Cell Distribution Width 16.2 H Total Bilirubin 0.1 L Total Protein 4.4 L White Blood Count 6.3 Medications Current Medications Acyclovir (Zovirax) 400 mg BID PO Last administered on 07/01/16 09:38; Admin Dose 400 MG; Start 06/02/16 at 14:30 Diphenhydramine HCl (Benadryl) 25 mg Q4H PRN IV ALLERGIC REACTION Last administered on 06/06/16 20:26; Admin Dose 25 MG; Start 06/02/16 at 18:30 Dexamethasone (Decadron) 10 mg Q4H PRN IV ALLERGIC REACTION; Start 06/02/16 at 18:30 Fluconazole 100 mg 100 mg DAILY PO Last administered on 06/08/16 09:58; Admin Dose 100 MG; Start 06/03/16 at 09:00; Status Future Hold Ondansetron HCl/ Sodium Chloride (Zofran Inj/NS) 54 ml @ 216 mls/hr Q6H PRN IV NAUSEA AND/OR VOMITING Last administered on 06/21/16 21:18; Admin Dose 216 MLS/HR; Start 06/02/16 at 18:30 Ondansetron HCl (Zofran Inj) 4 mg Q6H PRN IV NAUSEA AND/OR VOMITING Last administered on 07/01/16 12:19; Admin Dose 4 MG; Start 06/03/16 at 17:00 Acetaminophen (Tylenol Tab) 650 mg Q6H PRN PO PAIN LEVEL 1-3 OR FEVER Last administered on 06/24/16 09:16; Admin Dose 650 MG; Start 06/03/16 at 17:00 Acetaminophen (Tylenol Supp) 650 mg Q6H PRN [place] PAIN LEVEL 1-3 OR FEVER Last administered on 06/09/16at 03:37; Admin Dose 650 MG; Start 06/03/16 at 17:00 Docusate Sodium (Colace) 100 mg Q12H PRN PO CONSTIPATION Last administered on 06/20/16 22:25; Admin Dose 100 MG; Start 06/03/16 at 17:00 Magnesium Hydroxide (Milk Of Mag) 30 ml DAILY PRN PO CONSTIPATION Last administered on 06/20/16 06:13; Admin Dose 30 ML; Start 06/03/16 at 17:00 Bisacodyl (Dulcolax) 5 mg DAILY PRN PO CONSTIPATION; Start 06/03/16 at 17:00 Bisacodyl (Dulcolax Supp) 10 mg DAILY PRN [place] CONSTIPATION Last administered on 06/21/16at 05:18; Admin Dose 10 MG; Start 06/03/16 at 17:00 Sodium Biphosphate/ Sodium Phosphate (Fleet Enema) 133 ml DAILY PRN [place] CONSTIPATION; Start 06/03/16 at 17:00 Enoxaparin Sodium (Lovenox) 30 mg DAILY SC Last administered on 06/12/16at 08: 27; Admin Dose 30 MG; Start 06/04/16 at 09:00; Status Future Hold Allopurinol (Zyloprim) 300 mg DAILY PO Last administered on 07/01/16 09:39; Admin Dose 300 MG; Start 06/04/16 at 09:00 Eye Lubricant (Artificial Tears Oph) 2 drop QID BOTH EYES Last administered on 07/01/16 12:07; Admin Dose 2 DROP; Start 06/03/16 at 21:00 Eye Lubricant (Akwa Oint) 1 applic DAILY BOTH EYES Last administered on 09:40; Admin Dose 1 APPLIC; Start 06/04/16 at 09:00 Gabapentin (Neurontin) 200 mg TID PO Last administered on 07/01/16 12:07; Admin Dose 200 MG; Start 06/03/16 at 21:00 Levothyroxine Sodium (Synthroid) 100 mcg DAILY@06 PO Last administered on 06:51; Admin Dose 100 MCG; Start 06/04/16 at 06:00 Pantoprazole (Protonix Iv) 40 mg DAILY@06 IV Last administered on 07/01/16 06: 51; Admin Dose 40 MG; Start 06/09/16 at 06:00 Lorazepam (Ativan) 1 mg Q6H PRN IV AGITATION/ANXIETY Last administered on 16:31; Admin Dose 1 MG; Start 06/08/16 at 18:00 Acetaminophen/ Hydrocodone Bitart ([place] (5/325)) 1 tab Q6H PRN PO PAIN Last administered on 06/11/16at 17:38; Admin Dose 1 TAB; Start 06/11/16 at 17:30 Collagenase (Santyl) 1 applic DAILY TOP Last administered on 07/01/16 09:39; Admin Dose 1 APPLIC; Start 06/12/16 at 09:00 Nystatin (Nystatin Susp) 5 ml QID PO Last administered on 07/01/16 12:07; Admin Dose 5 ML; Start 06/18/16 at 17:00 Scopolamine (Transderm-Scop) 1 patch Q72H TRANSDERM Last administered on 21:41; Admin Dose 1 PATCH; Start 06/22/16 at 21:00 Doxycycline Hyclate (Vibramycin) 100 mg BID PO Last administered on 07/01/16 09:39; Admin Dose 100 MG; Start 06/27/16 at 21:00 Lactobacillus Acidoph/Bulgaricus (Floranex) 1 tab TID PO Last administered on 12:07; Admin Dose 1 TAB; Start 06/27/16 at 21:00 Fluconazole (Diflucan) 100 mg DAILY PO Last administered on 07/01/16 09:38; Admin Dose 100 MG; Start 06/28/16 at 09:00 Potassium Chloride (Klor-Con 10) 10 meq BID PO Last administered on 07/01/16 09:38; Admin Dose 10 MEQ; Start 06/30/16 at 10:00 Assessment/Plan Chief Complaint/Hosp Course INDWELLINGS: Trach, PICC line. PHYSICAL EXAMINATION: GENERAL: This is a well-developed, ill-appearing, middle-aged [place] woman, who is alert, in no distress. HEENT: Head atraumatic, normocephalic. Sclerae anicteric. Buccal mucosa pink. NECK: Supple. Tracheostomy present. CHEST: Chest rise is symmetrical. Breath sounds clear, diminished to the bases. HEART: S1, S2. ABDOMEN: Soft, bowel tones present. EXTREMITIES: Without cyanosis. ASSESSMENT: 1. S/p systemic inflammatory response syndrome. 2. S/p acute tracheobronchitis, with sputum culture growing methicillin- resistant Staphylococcus aureus. 3. Methicillin-resistant Staphylococcus aureus nares colonization. 4. Stage IIIA Burkitt's lymphoma, in chemotherapy. 5. Respiratory failure secondary to respiratory compromise by neck mass, requiring tracheostomy. 6. Pancytopenia==> resolved. PLAN: Remains stable, continue Doxycycline for 10 more days for MRSA + sputum, continue Diflucan, pending repeat nares swab for MRSA. DW staff Problems: RODRÍGUEZ ERAZO NP Jul 01, 2016 13:05
--- NOTE | 2016-07-01 13:37 | CONS ---
Date/Time of Note Date/Time of Note DATE: 07/01/16 TIME: 13:31 Assessment/Plan Assessment/Plan Chief Complaint/Hosp Course 56 yo female with massive neck mass causing tracheal compression and airway compromise s/p tracheostomy placement. 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 Pt was given cycle 1A and 1B of R HyperCVAD but had only a partial response to therapy and severe side effects. We have thus changed her chemotherapy regimen. She is now being admitted for cycle 1 of R-CODOX-M and has now completed her chemotherapy. Most recent CT neck showed resolution of the mass. Pt's counts are now improving and she is no longer transfusion dependant. Problems: Additional Assessment/Plan # Burkitt's lymphoma - to start cycle 1B R -IVAC as soon as meds arrive. chemotherapy regimen is as follows Part 2: R-IVAC Rituximab (Rituxan) 375 mg/m2 IV once on day 1 Ifosfamide (Ifex) 1500 mg/m2 IV over 2 hours once per day on days 1 to 5 Etoposide (Vepesid) 60 mg/m2 IV over 1 hour once per day on days 1 to 5 Cytarabine (Cytosar) 2 g/m2 IV over 3 hours Q12H on days 1 & 2 (4 doses totoal) [place] (Mesnex) 300 mg/m2 (mixed with Ifosfamide (Ifex)) over 1 hour, then 300mg/m2 IV every four hours x 2, on days 1 to 5 # Supportive Care and prophylactic meds -Started Acyclovir 400mg BID -fluconazole 100mg q day -Neupogen 300mcg q day day after chemotherapy is completed -Zofran ordered prn nausea #Expected Pancytopenia -keep Hg> 8 and platelets > 10. pt to get 1 units of prbc today # Elevated AST and ALT, likely related to methotrexate. 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 all steroids should be discontinued for now unless they are part of the chemotherapy regimen -continue to work with physical therapy. 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 -uric acid level ok Approximately 40 min were spent at patient's bedside and in coordination of her care Consultation Date/Type/Reason Admit Date/Time Jun 02, 2016 at 15:10 Initial Consult Date 06/02/16 Type of Consultation: Hematology Reason for Consultation Burkitt lymphoma Referring Provider: TELLY SOLANO MD 24 HR Interval Summary Free Text/Dictation pt feels well. no acute overnight events Exam/Review of Systems Vital Signs Vitals Vital Signs Date Time Temp Pulse Resp B/P Pulse Ox O2 Delivery O2 Flow Rate FiO2 07/01/16 12:38 91 18 100 Aerosol 28 T Tube 07/01/16 09:00 4.0 07/01/16 08:35 98.0 Intake and Output 06/30/16 06/30/16 07/01/16 15:00 23:00 07:00 Intake Total 240 ml 200 ml Output Total 600 ml Balance 240 ml -400 ml Exam Constitutional: alert, oriented Head: atraumatic, normocephalic Eyes: nl conjunctiva ENMT: nl external ears & nose Neck: other (trach in place. mass improved) Respiratory: clear to auscultation, normal air movement Cardiovascular: nl pulses, regular rate and rhythm Gastrointestinal: soft Musculoskeletal: nl extremities to inspection, nl gait and stance Extremities: normal pulses Neurological: nl mental status Results Result Diagram: 07/01/16 1025 07/01/16 1025 Results 24 hrs Laboratory Tests Test 07/01/16 04:45 07/01/16 10:25 Anion Gap 11 12 Blood Urea Nitrogen 6 L 6 L Calcium Level 8.5 8.3 L Carbon Dioxide Level 30 30 Chloride Level 105 103 Creatinine 0.29 L 0.28 L Glucose Level 88 92 Potassium Level 3.2 L 3.5 Sodium Level 143 141 Alanine Aminotransferase (ALT/SGPT) 50 Albumin 2.4 L Albumin/Globulin Ratio 1.20 Alkaline Phosphatase 108 Aspartate Amino Transf (AST/SGOT) 37 Band Neutrophils % 10.0 H Blood Morphology Comment Direct Bilirubin 0.00 Globulin 2.00 Hematocrit 24.4 L Hemoglobin 8.5 L Indirect Bilirubin 0.1 Lactate Dehydrogenase 677 H Lactic Acid Level 0.8 Lymphocytes # 2.3 Lymphocytes % 37.0 Mean Corpuscular Hemoglobin 29.4 Mean Corpuscular Hemoglobin Concent 34.7 Mean Corpuscular Volume 84.9 Mean Platelet Volume 6.7 L Metamyelocytes # 0.1 Metamyelocytes % 2.0 H Monocytes # 0.4 Monocytes % 6.0 Myelocytes # 0.1 Myelocytes % 2.0 H Neutrophils # 2.7 Neutrophils % 43.0 Nucleated Red Blood Cells % 2.0 H Platelet Count 203 # Red Blood Count 2.88 L Red Cell Distribution Width 16.2 H Total Bilirubin 0.1 L Total Protein 4.4 L White Blood Count 6.3 Medications Medications Current Medications Acyclovir (Zovirax) 400 mg BID PO Last administered on 07/01/16 09:38; Admin Dose 400 MG; Start 06/02/16 at 14:30 Diphenhydramine HCl (Benadryl) 25 mg Q4H PRN IV ALLERGIC REACTION Last administered on 06/06/16 20:26; Admin Dose 25 MG; Start 06/02/16 at 18:30 Dexamethasone (Decadron) 10 mg Q4H PRN IV ALLERGIC REACTION; Start 06/02/16 at 18:30 Fluconazole 100 mg 100 mg DAILY PO Last administered on 06/08/16 09:58; Admin Dose 100 MG; Start 06/03/16 at 09:00; Status Future Hold Ondansetron HCl/ Sodium Chloride (Zofran Inj/NS) 54 ml @ 216 mls/hr Q6H PRN IV NAUSEA AND/OR VOMITING Last administered on 06/21/16 21:18; Admin Dose 216 MLS/HR; Start 06/02/16 at 18:30 Ondansetron HCl (Zofran Inj) 4 mg Q6H PRN IV NAUSEA AND/OR VOMITING Last administered on 07/01/16 12:19; Admin Dose 4 MG; Start 06/03/16 at 17:00 Acetaminophen (Tylenol Tab) 650 mg Q6H PRN PO PAIN LEVEL 1-3 OR FEVER Last administered on 06/24/16 09:16; Admin Dose 650 MG; Start 06/03/16 at 17:00 Acetaminophen (Tylenol Supp) 650 mg Q6H PRN [place] PAIN LEVEL 1-3 OR FEVER Last administered on 06/09/16 03:37; Admin Dose 650 MG; Start 06/03/16 at 17:00 Docusate Sodium (Colace) 100 mg Q12H PRN PO CONSTIPATION Last administered on 06/20/16 22:25; Admin Dose 100 MG; Start 06/03/16 at 17:00 Magnesium Hydroxide (Milk Of Mag) 30 ml DAILY PRN PO CONSTIPATION Last administered on 06/20/16 06:13; Admin Dose 30 ML; Start 06/03/16 at 17:00 Bisacodyl (Dulcolax) 5 mg DAILY PRN PO CONSTIPATION; Start 06/03/16 at 17:00 Bisacodyl (Dulcolax Supp) 10 mg DAILY PRN [place] CONSTIPATION Last administered on 06/21/16at 05:18; Admin Dose 10 MG; Start 06/03/16 at 17:00 Sodium Biphosphate/ Sodium Phosphate (Fleet Enema) 133 ml DAILY PRN [place] CONSTIPATION; Start 06/03/16 at 17:00 Enoxaparin Sodium (Lovenox) 30 mg DAILY SC Last administered on 06/12/16 08: 27; Admin Dose 30 MG; Start 06/04/16 at 09:00; Status Future Hold Allopurinol (Zyloprim) 300 mg DAILY PO Last administered on 07/01/16 09:39; Admin Dose 300 MG; Start 06/04/16 at 09:00 Eye Lubricant (Artificial Tears Oph) 2 drop QID BOTH EYES Last administered on 07/01/16 12:07; Admin Dose 2 DROP; Start 06/03/16 at 21:00 Eye Lubricant (Akwa Oint) 1 applic DAILY BOTH EYES Last administered on 09:40; Admin Dose 1 APPLIC; Start 06/04/16 at 09:00 Gabapentin (Neurontin) 200 mg TID PO Last administered on 07/01/16 12:07; Admin Dose 200 MG; Start 06/03/16 at 21:00 Levothyroxine Sodium (Synthroid) 100 mcg DAILY@06 PO Last administered on 06:51; Admin Dose 100 MCG; Start 06/04/16 at 06:00 Pantoprazole (Protonix Iv) 40 mg DAILY@06 IV Last administered on 07/01/16 06: 51; Admin Dose 40 MG; Start 06/09/16 at 06:00 Lorazepam (Ativan) 1 mg Q6H PRN IV AGITATION/ANXIETY Last administered on 16:31; Admin Dose 1 MG; Start 06/08/16 at 18:00 Acetaminophen/ Hydrocodone Bitart ([place] (5/325)) 1 tab Q6H PRN PO PAIN Last administered on 06/11/16at 17:38; Admin Dose 1 TAB; Start 06/11/16 at 17:30 Collagenase (Santyl) 1 applic DAILY TOP Last administered on 07/01/16 09:39; Admin Dose 1 APPLIC; Start 06/12/16 at 09:00 Nystatin (Nystatin Susp) 5 ml QID PO Last administered on 07/01/16 12:07; Admin Dose 5 ML; Start 06/18/16 at 17:00 Scopolamine (Transderm-Scop) 1 patch Q72H TRANSDERM Last administered on 21:41; Admin Dose 1 PATCH; Start 06/22/16 at 21:00 Doxycycline Hyclate (Vibramycin) 100 mg BID PO Last administered on 07/01/16 09:39; Admin Dose 100 MG; Start 06/27/16 at 21:00 Lactobacillus Acidoph/Bulgaricus (Floranex) 1 tab TID PO Last administered on 12:07; Admin Dose 1 TAB; Start 06/27/16 at 21:00 Fluconazole (Diflucan) 100 mg DAILY PO Last administered on 07/01/16 09:38; Admin Dose 100 MG; Start 06/28/16 at 09:00 Potassium Chloride (Klor-Con 10) 10 meq BID PO Last administered on 07/01/16 09:38; Admin Dose 10 MEQ; Start 06/30/16 at 10:00 CHANDRIKA MERLOS M.D. Jul 01, 2016 13:36
--- NOTE | 2016-07-01 17:00 | PN ---
Date/Time of Note Date/Time of Note DATE: 07/01/16 TIME: 16:59 Assessment/Plan VTE Prophylaxis VTE Prophylaxis Intervention: other Lines/Catheters [facility] Urinary Cath still in place: No Assessment/Plan Chief Complaint/Hosp Course IMPRESSION: The patient has Burkitt's lymphoma status post tracheostomy, status post thyroid mass, status post pancytopenia, abnormal liver function test. better The patient has PANCYTOPENIA, ON CHEMO better SEPSIS better gallstone ABN LFT better hypokalemia PLAN PER DR MERLOS chemo soon dr lockett to see for decaulation Problems: Subjective 24 Hr Interval Summary Constitutional: no complaints Eyes: no complaints Exam/Review of Systems Vital Signs Vitals Vital Signs Date Time Temp Pulse Resp B/P Pulse Ox O2 Delivery O2 Flow Rate FiO2 07/01/16 12:38 91 18 100 Aerosol 28 T Tube 07/01/16 09:00 4.0 07/01/16 08:35 98.0 Intake and Output 06/30/16 06/30/16 07/01/16 14:59 22:59 06:59 Intake Total 240 ml 200 ml Output Total 600 ml Balance 240 ml -400 ml Exam Neck: supple Respiratory: clear to auscultation Cardiovascular: regular rate and rhythm Gastrointestinal: soft Musculoskeletal: nl extremities to inspection Extremities: normal pulses Results Result Diagram: 07/01/16 1025 07/01/16 1025 Results 24 hrs Laboratory Tests Test 07/01/16 04:45 07/01/16 10:25 Anion Gap 11 12 Blood Urea Nitrogen 6 L 6 L Calcium Level 8.5 8.3 L Carbon Dioxide Level 30 30 Chloride Level 105 103 Creatinine 0.29 L 0.28 L Glucose Level 88 92 Potassium Level 3.2 L 3.5 Sodium Level 143 141 Alanine Aminotransferase (ALT/SGPT) 50 Albumin 2.4 L Albumin/Globulin Ratio 1.20 Alkaline Phosphatase 108 Aspartate Amino Transf (AST/SGOT) 37 Band Neutrophils % 10.0 H Blood Morphology Comment Direct Bilirubin 0.00 Globulin 2.00 Hematocrit 24.4 L Hemoglobin 8.5 L Indirect Bilirubin 0.1 Lactate Dehydrogenase 677 H Lactic Acid Level 0.8 Lymphocytes # 2.3 Lymphocytes % 37.0 Mean Corpuscular Hemoglobin 29.4 Mean Corpuscular Hemoglobin Concent 34.7 Mean Corpuscular Volume 84.9 Mean Platelet Volume 6.7 L Metamyelocytes # 0.1 Metamyelocytes % 2.0 H Monocytes # 0.4 Monocytes % 6.0 Myelocytes # 0.1 Myelocytes % 2.0 H Neutrophils # 2.7 Neutrophils % 43.0 Nucleated Red Blood Cells % 2.0 H Platelet Count 203 # Red Blood Count 2.88 L Red Cell Distribution Width 16.2 H Total Bilirubin 0.1 L Total Protein 4.4 L White Blood Count 6.3 Medications Medications Current Medications Acyclovir (Zovirax) 400 mg BID PO Last administered on 07/01/16 09:38; Admin Dose 400 MG; Start 06/02/16 at 14:30 Diphenhydramine HCl (Benadryl) 25 mg Q4H PRN IV ALLERGIC REACTION Last administered on 06/06/16 20:26; Admin Dose 25 MG; Start 06/02/16 at 18:30 Dexamethasone (Decadron) 10 mg Q4H PRN IV ALLERGIC REACTION; Start 06/02/16 at 18:30 Fluconazole 100 mg 100 mg DAILY PO Last administered on 06/08/16 09:58; Admin Dose 100 MG; Start 06/03/16 at 09:00; Status Future Hold Ondansetron HCl/ Sodium Chloride (Zofran Inj/NS) 54 ml @ 216 mls/hr Q6H PRN IV NAUSEA AND/OR VOMITING Last administered on 06/21/16 21:18; Admin Dose 216 MLS/HR; Start 06/02/16 at 18:30 Ondansetron HCl (Zofran Inj) 4 mg Q6H PRN IV NAUSEA AND/OR VOMITING Last administered on 07/01/16 12:19; Admin Dose 4 MG; Start 06/03/16 at 17:00 Acetaminophen (Tylenol Tab) 650 mg Q6H PRN PO PAIN LEVEL 1-3 OR FEVER Last administered on 06/24/16 09:16; Admin Dose 650 MG; Start 06/03/16 at 17:00 Acetaminophen (Tylenol Supp) 650 mg Q6H PRN [place] PAIN LEVEL 1-3 OR FEVER Last administered on 06/09/16 03:37; Admin Dose 650 MG; Start 06/03/16 at 17:00 Docusate Sodium (Colace) 100 mg Q12H PRN PO CONSTIPATION Last administered on 12/30/16at 22:25; Admin Dose 100 MG; Start 06/03/16 at 17:00 Magnesium Hydroxide (Milk Of Mag) 30 ml DAILY PRN PO CONSTIPATION Last administered on 06/20/16at 06:13; Admin Dose 30 ML; Start 06/03/16 at 17:00 Bisacodyl (Dulcolax) 5 mg DAILY PRN PO CONSTIPATION; Start 06/03/16 at 17:00 Bisacodyl (Dulcolax Supp) 10 mg DAILY PRN [place] CONSTIPATION Last administered on 06/21/16 05:18; Admin Dose 10 MG; Start 06/03/16 at 17:00 Sodium Biphosphate/ Sodium Phosphate (Fleet Enema) 133 ml DAILY PRN [place] CONSTIPATION; Start 06/03/16 at 17:00 Enoxaparin Sodium (Lovenox) 30 mg DAILY SC Last administered on 06/12/16 08: 27; Admin Dose 30 MG; Start 06/04/16 at 09:00; Status Future Hold Allopurinol (Zyloprim) 300 mg DAILY PO Last administered on 07/01/16 09:39; Admin Dose 300 MG; Start 06/04/16 at 09:00 Eye Lubricant (Artificial Tears Oph) 2 drop QID BOTH EYES Last administered on 07/01/16 12:07; Admin Dose 2 DROP; Start 06/03/16 at 21:00 Eye Lubricant (Akwa Oint) 1 applic DAILY BOTH EYES Last administered on 09:40; Admin Dose 1 APPLIC; Start 06/04/16 at 09:00 Gabapentin (Neurontin) 200 mg TID PO Last administered on 07/01/16 12:07; Admin Dose 200 MG; Start 06/03/16 at 21:00 Levothyroxine Sodium (Synthroid) 100 mcg DAILY@06 PO Last administered on 06:51; Admin Dose 100 MCG; Start 06/04/16 at 06:00 Pantoprazole (Protonix Iv) 40 mg DAILY@06 IV Last administered on 07/01/16 06: 51; Admin Dose 40 MG; Start 06/09/16 at 06:00 Lorazepam (Ativan) 1 mg Q6H PRN IV AGITATION/ANXIETY Last administered on 16:31; Admin Dose 1 MG; Start 06/08/16 at 18:00 Acetaminophen/ Hydrocodone Bitart ([place] (5/325)) 1 tab Q6H PRN PO PAIN Last administered on 06/11/16at 17:38; Admin Dose 1 TAB; Start 06/11/16 at 17:30 Collagenase (Santyl) 1 applic DAILY TOP Last administered on 07/01/16 09:39; Admin Dose 1 APPLIC; Start 06/12/16 at 09:00 Nystatin (Nystatin Susp) 5 ml QID PO Last administered on 07/01/16 12:07; Admin Dose 5 ML; Start 06/18/16 at 17:00 Scopolamine (Transderm-Scop) 1 patch Q72H TRANSDERM Last administered on 21:41; Admin Dose 1 PATCH; Start 06/22/16 at 21:00 Doxycycline Hyclate (Vibramycin) 100 mg BID PO Last administered on 07/01/16 09:39; Admin Dose 100 MG; Start 06/27/16 at 21:00 Fluconazole (Diflucan) 100 mg DAILY PO Last administered on 07/01/16 09:38; Admin Dose 100 MG; Start 06/28/16 at 09:00 Potassium Chloride 10 meq 10 meq BID PO Last administered on 07/01/16 09:38; Admin Dose 10 MEQ; Start 06/30/16 at 10:00 Sodium Chloride (NS) 1,000 ml @ 100 mls/hr Q10H IV ; Start 07/01/16 at 19:00 Lactobacillus Acidoph/ Bulgaricus 1 tab 1 tab BID PO ; Start 07/01/16 at 21:00 Ondansetron HCl/ Dexamethasone/ Diphenhydramine HCl/Dextrose (Zofran Inj/ Decadron/Benadryl/ D5W) 59.5 ml @ 119 mls/hr ONCE IV ; Start 07/01/16 at 19:00 ; Stop 07/01/16 at 19:29 GUERLINE SULLIVAN MD Jul 01, 2016 17:00
[2016-07-01] MEDS: SOD CHLORIDE 0.9% 1,000 ML IV SCH (18:15)
[2016-07-01] MEDS ORDERED: DEXAMETHASONE IV SCH (19:00)
[2016-07-01] MEDS ORDERED: DIPHENHYDRAMINE IV SCH (19:00)
[2016-07-01] MEDS ORDERED: ONDANSETRON IV SCH (19:00)
[2016-07-01] MEDS ORDERED: [UNRECOGNIZED DRUG - OTHER] IV SCH (19:00)
[2016-07-01] MEDS ORDERED: SOD CHLORIDE 0.9% IV SCH (20:00)
[2016-07-01] MEDS ORDERED: RITUXIMAB IV SCH (20:00)
[2016-07-01] MEDS: SCOPOLAMINE 1.5 MG PATCH TRANSDERM SCH (20:16)
[2016-07-02] VITALS (9 sets, daily range): BP systolic 107–128; BP diastolic 56–91; PULSE 74–92; RESP 18
[2016-07-02] MEDS: ALBUTEROL/IPRATROPIUM (NEB) 3 ML AMP HHN SCH ×6 (00:48→21:35)
[2016-07-02] MEDS: ETOPOSIDE IV SCH (04:23)
[2016-07-02] MEDS: SOD CHLORIDE 0.9% IV SCH ×4 (04:23→20:12)
[2016-07-02 05:24] LABS: BASOPHILS % 0.3 % (0.0-2.0); EOSINOPHILS % 0.3 % (0.0-7.0); HEMATOCRIT 24.7 % (37.0-47.0); HEMOGLOBIN 8.6 g/dl (12.0-16.0); MEAN CORPUSCULAR HEMOGLOBIN 29.5 pg (29.0-33.0); MEAN CORPUSCULAR HGB CONC 34.6 g/dl (32.0-37.0); MEAN CORPUSCULAR VOLUME 85.2 fl (82.0-101.0); MEAN PLATELET VOLUME 6.8 fl (7.4-10.4); MONOCYTE # 0.2 10^3/ul (0.3-0.9); MONOCYTES % 2.8 % (0.0-11.0); NEUTROPHIL # 4.5 10^3/ul (1.6-7.5); NEUTROPHILS % 66.6 % (39.0-77.0); PLATELET COUNT 259 10^3/UL (140-440); RED CELL DISTRIBUTION WIDTH 16.5 % (11.5-14.5); UNCORRECTED WBC 6.8 10^3/ul (4.8-10.8); WHITE BLOOD COUNT 6.8 10^3/ul (4.8-10.8)
[2016-07-02 05:26] LABS: ALBUMIN 2.5 g/dl (3.3-4.9)
[2016-07-02] MEDS: PANTOPRAZOLE 40 MG INJ IV SCH (05:26)
[2016-07-02] MEDS: SOD CHLORIDE 0.9% 1,000 ML IV SCH ×2 (05:26→16:35)
[2016-07-02] MEDS: LEVOTHYROXINE 100 MCG TAB PO SCH (05:26)
[2016-07-02 05:27] LABS: POTASSIUM 4.1 mmol/L (3.5-5.1)
[2016-07-02 05:29] LABS: ALBUMIN/GLOBULIN RATIO 1.08; BILIRUBIN,INDIRECT 0.1 mg/dl (0-1.1); BILIRUBIN,TOTAL 0.1 mg/dl (0.2-1.3); CREATININE 0.3 mg/dl (0.44-1.00); TOTAL PROTEIN 4.8 g/dl (6.1-8.1)
[2016-07-02 05:30] LABS: CALCIUM 8.4 mg/dl (8.4-10.2)
[2016-07-02 05:33] LABS: CONDITION 1; LH ANALYZER COMMENTS 1
[2016-07-02] MEDS: MESNA IV SCH (05:52)
[2016-07-02] MEDS: IFOSFAMIDE IV SCH (05:52)
[2016-07-02] MEDS: CYTARABINE IV SCH ×2 (08:24→20:12)
[2016-07-02] MEDS: ARTIFICIAL TEARS 15 ML OPH BOTH EYES SCH ×4 (08:25→21:14)
[2016-07-02] MEDS: OCULAR LUBRICANT 3.5 GM OPH OINT BOTH EYES SCH (08:26)
[2016-07-02] MEDS: NYSTATIN SUSP 5 ML CUP PO SCH ×4 (09:01→21:24)
[2016-07-02] MEDS: POTASSIUM CHLORIDE (SR) 10 MEQ TAB PO SCH ×2 (09:01→21:12)
[2016-07-02] MEDS: GABAPENTIN 100 MG CAP PO SCH ×3 (09:01→21:12)
[2016-07-02] MEDS: DOXYCYCLINE 100 MG TAB PO SCH ×2 (09:02→21:12)
[2016-07-02] MEDS: ACYCLOVIR 400 MG TAB PO SCH ×2 (09:02→21:12)
[2016-07-02] MEDS: FLUCONAZOLE 100 MG TAB PO SCH (09:02)
[2016-07-02] MEDS: ALLOPURINOL 300 MG TAB PO SCH (09:02)
[2016-07-02] MEDS: LACTOBACILLUS CHEW TAB PO SCH ×2 (09:02→21:11)
[2016-07-02] MEDS: COLLAGENASE 30 GM TUBE TOP SCH (09:06)
--- NOTE | 2016-07-02 09:28 | CONS ---
Date/Time of Note Date/Time of Note DATE: 07/02/16 TIME: 09:24 Assessment/Plan Assessment/Plan Chief Complaint/Hosp Course 56 yo female with massive neck mass causing tracheal compression and airway compromise s/p tracheostomy placement. 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 Pt was given cycle 1A and 1B of R HyperCVAD but had only a partial response to therapy and severe side effects. We have thus changed her chemotherapy regimen. She is now s/p cycle 1A of R-CODOX-M and has now completed her chemotherapy. Most recent CT neck showed resolution of the mass. Pt's counts are now improving and she is no longer transfusion dependant. She has since started Cycle 1B and is receiving R-IVAC Problems: (1) Burkitts lymphoma Status: Acute Qualifiers: Lymphoma site: neck Qualified Code: C83.71 - Burkitt lymphoma of lymph nodes of neck Additional Assessment/Plan # Burkitt's lymphoma - currently day 1 cycle 1B R -IVAC. chemotherapy regimen is as follows Part 2: R-IVAC Rituximab (Rituxan) 375 mg/m2 IV once on day 1 Ifosfamide (Ifex) 1500 mg/m2 IV over 2 hours once per day on days 1 to 5 Etoposide (Vepesid) 60 mg/m2 IV over 1 hour once per day on days 1 to 5 Cytarabine (Cytosar) 2 g/m2 IV over 3 hours Q12H on days 1 & 2 (4 doses total) [place] (Mesnex) 300 mg/m2 (mixed with Ifosfamide (Ifex)) , then 300mg/m2 IV every four hours x 2, on days 1 to 5 # Supportive Care and prophylactic meds -Started Acyclovir 400mg BID -fluconazole 100mg q day -Neupogen 300mcg q day day after chemotherapy is completed -Zofran ordered prn nausea #Expected Pancytopenia -keep Hg> 8 and platelets > 10. pt to get 1 units of prbc today # Elevated AST and ALT, likely related to methotrexate. 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 all steroids should be discontinued for now unless they are part of the chemotherapy regimen -continue to work with physical therapy. 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 -uric acid level ok Approximately 40 min were spent at patient's bedside and in coordination of her care Consultation Date/Type/Reason Admit Date/Time Jun 02, 2016 at 15:10 Initial Consult Date 06/02/16 Type of Consultation: Hematology Referring Provider: TELLY SOLANO MD 24 HR Interval Summary Free Text/Dictation no acute overnight events. pt started chemotherapy last night. received Rituxan. currently receiving cytarabine. tolerating chemotherapy well thus far Exam/Review of Systems Vital Signs Vitals Vital Signs Date Time Temp Pulse Resp B/P Pulse Ox O2 Delivery O2 Flow Rate FiO2 07/02/16 08:06 83 16 98 Aerosol 5.0 28 07/02/16 06:16 98.2 118/65 Intake and Output 07/01/16 07/01/16 07/02/16 15:00 23:00 07:00 Intake Total 400 ml 2509.5 ml Output Total 900 ml 700 ml Balance -500 ml 1809.5 ml Exam Constitutional: alert, oriented Head: normocephalic Eyes: nl conjunctiva ENMT: nl external ears & nose Neck: other (trach in place) Respiratory: clear to auscultation, normal air movement Cardiovascular: nl pulses, regular rate and rhythm Gastrointestinal: nl liver, spleen, soft Genitourinary - Female: nl adnexae Musculoskeletal: nl extremities to inspection Extremities: normal pulses Results Result Diagram: 07/02/16 0450 07/02/16 0450 Results 24 hrs Laboratory Tests Test 07/01/16 10:25 07/02/16 04:50 Alanine Aminotransferase (ALT/SGPT) 50 47 Albumin 2.4 L 2.5 L Albumin/Globulin Ratio 1.20 1.08 Alkaline Phosphatase 108 107 Anion Gap 12 10 Aspartate Amino Transf (AST/SGOT) 37 35 Band Neutrophils % 10.0 H Blood Morphology Comment Blood Urea Nitrogen 6 L 5 L Calcium Level 8.3 L 8.4 Carbon Dioxide Level 30 30 Chloride Level 103 108 Creatinine 0.28 L 0.30 L Direct Bilirubin 0.00 0.00 Globulin 2.00 2.30 Glucose Level 92 140 # Hematocrit 24.4 L 24.7 L Hemoglobin 8.5 L 8.6 L Indirect Bilirubin 0.1 0.1 Lactate Dehydrogenase 677 H 762 H Lactic Acid Level 0.8 Lymphocytes # 2.3 2.0 Lymphocytes % 37.0 30.0 Mean Corpuscular Hemoglobin 29.4 29.5 Mean Corpuscular Hemoglobin Concent 34.7 34.6 Mean Corpuscular Volume 84.9 85.2 Mean Platelet Volume 6.7 L 6.8 L Metamyelocytes # 0.1 Metamyelocytes % 2.0 H Monocytes # 0.4 0.2 L Monocytes % 6.0 2.8 Myelocytes # 0.1 Myelocytes % 2.0 H Neutrophils # 2.7 4.5 Neutrophils % 43.0 66.6 Nucleated Red Blood Cells % 2.0 H 0.0 Platelet Count 203 # 259 # Potassium Level 3.5 4.1 Red Blood Count 2.88 L 2.90 L Red Cell Distribution Width 16.2 H 16.5 H Sodium Level 141 144 Total Bilirubin 0.1 L 0.1 L Total Protein 4.4 L 4.8 L White Blood Count 6.3 6.8 Basophils # 0.0 Basophils % 0.3 Eosinophils # 0.0 Eosinophils % 0.3 Nucleated Red Blood Cells # 0.0 Medications Medications Current Medications Acyclovir (Zovirax) 400 mg BID PO Last administered on 07/02/16 09:02; Admin Dose 400 MG; Start 06/02/16 at 14:30 Diphenhydramine HCl (Benadryl) 25 mg Q4H PRN IV ALLERGIC REACTION Last administered on 06/06/16at 20:26; Admin Dose 25 MG; Start 06/02/16 at 18:30 Dexamethasone (Decadron) 10 mg Q4H PRN IV ALLERGIC REACTION; Start 06/02/16 at 18:30 Fluconazole 100 mg 100 mg DAILY PO Last administered on 06/08/16at 09:58; Admin Dose 100 MG; Start 06/03/16 at 09:00; Status Future Hold Ondansetron HCl/ Sodium Chloride (Zofran Inj/NS) 54 ml @ 216 mls/hr Q6H PRN IV NAUSEA AND/OR VOMITING Last administered on 06/21/16at 21:18; Admin Dose 216 MLS/HR; Start 06/02/16 at 18:30 Ondansetron HCl (Zofran Inj) 4 mg Q6H PRN IV NAUSEA AND/OR VOMITING Last administered on 07/01/16 12:19; Admin Dose 4 MG; Start 06/03/16 at 17:00 Acetaminophen (Tylenol Tab) 650 mg Q6H PRN PO PAIN LEVEL 1-3 OR FEVER Last administered on 06/24/16 09:16; Admin Dose 650 MG; Start 06/03/16 at 17:00 Acetaminophen (Tylenol Supp) 650 mg Q6H PRN LA PAIN LEVEL 1-3 OR FEVER Last administered on 06/09/16at 03:37; Admin Dose 650 MG; Start 06/03/16 at 17:00 Docusate Sodium (Colace) 100 mg Q12H PRN PO CONSTIPATION Last administered on 06/20/16 22:25; Admin Dose 100 MG; Start 06/03/16 at 17:00 Magnesium Hydroxide (Milk Of Mag) 30 ml DAILY PRN PO CONSTIPATION Last administered on 06/20/16 06:13; Admin Dose 30 ML; Start 06/03/16 at 17:00 Bisacodyl (Dulcolax) 5 mg DAILY PRN PO CONSTIPATION; Start 06/03/16 at 17:00 Bisacodyl (Dulcolax Supp) 10 mg DAILY PRN LA CONSTIPATION Last administered on 06/21/16 05:18; Admin Dose 10 MG; Start 06/03/16 at 17:00 Sodium Biphosphate/ Sodium Phosphate (Fleet Enema) 133 ml DAILY PRN LA CONSTIPATION; Start 06/03/16 at 17:00 Enoxaparin Sodium (Lovenox) 30 mg DAILY SC Last administered on 06/12/16 08: 27; Admin Dose 30 MG; Start 06/04/16 at 09:00; Status Future Hold Allopurinol (Zyloprim) 300 mg DAILY PO Last administered on 07/02/16 09:02; Admin Dose 300 MG; Start 06/04/16 at 09:00 Eye Lubricant (Artificial Tears Oph) 2 drop QID BOTH EYES Last administered on 07/02/16 08:25; Admin Dose 2 DROP; Start 06/03/16 at 21:00 Eye Lubricant (Akwa Oint) 1 applic DAILY BOTH EYES Last administered on 08:26; Admin Dose 1 APPLIC; Start 06/04/16 at 09:00 Gabapentin (Neurontin) 200 mg TID PO Last administered on 07/02/16 09:01; Admin Dose 200 MG; Start 06/03/16 at 21:00 Levothyroxine Sodium (Synthroid) 100 mcg DAILY@06 PO Last administered on 05:26; Admin Dose 100 MCG; Start 06/04/16 at 06:00 Pantoprazole (Protonix Iv) 40 mg DAILY@06 IV Last administered on 07/02/16 05: 26; Admin Dose 40 MG; Start 06/09/16 at 06:00 Lorazepam (Ativan) 1 mg Q6H PRN IV AGITATION/ANXIETY Last administered on 16:31; Admin Dose 1 MG; Start 06/08/16 at 18:00 Acetaminophen/ Hydrocodone Bitart ([place] (5/325)) 1 tab Q6H PRN PO PAIN Last administered on 06/11/16at 17:38; Admin Dose 1 TAB; Start 06/11/16 at 17:30 Collagenase (Santyl) 1 applic DAILY TOP Last administered on 07/02/16 09:06; Admin Dose 1 APPLIC; Start 06/12/16 at 09:00 Nystatin (Nystatin Susp) 5 ml QID PO Last administered on 07/02/16 09:01; Admin Dose 5 ML; Start 06/18/16 at 17:00 Scopolamine (Transderm-Scop) 1 patch Q72H TRANSDERM Last administered on 20:16; Admin Dose 1 PATCH; Start 06/22/16 at 21:00 Doxycycline Hyclate (Vibramycin) 100 mg BID PO Last administered on 07/02/16 09:02; Admin Dose 100 MG; Start 06/27/16 at 21:00 Fluconazole (Diflucan) 100 mg DAILY PO Last administered on 07/02/16 09:02; Admin Dose 100 MG; Start 06/28/16 at 09:00 Potassium Chloride 10 meq 10 meq BID PO Last administered on 07/02/16 09:01; Admin Dose 10 MEQ; Start 06/30/16 at 10:00 Sodium Chloride (NS) 1,000 ml @ 100 mls/hr Q10H IV Last administered on 05:26; Admin Dose 100 MLS/HR; Start 07/01/16 at 19:00 Lactobacillus Acidoph/ Bulgaricus 1 tab 1 tab BID PO Last administered on 09:02; Admin Dose 1 TAB; Start 07/01/16 at 21:00 Etoposide 105 mg/ Sodium Chloride 500 ml @ 500 mls/hr Q24H IV Last administered on 07/02/16 04:23; Admin Dose 500 MLS/HR; Start 07/02/16 at 04:00 ; Stop 07/06/16 at 04:59 Ifosfamide 2.63 gm/[place] 525 mg/ Sodium Chloride 250 ml @ 125 mls/hr Q24H IV Last administered on 07/02/16 05:52; Admin Dose 125 MLS/HR; Start 07/02/16 at 05:00; Stop 07/06/16 at 06:59 [place] 525 mg/ Sodium Chloride 105.25 ml @ 200 mls/ hr BID@15 IVPB ; Start at 11:00; Stop 07/06/16 at 16:00 Cytarabine/Sodium Chloride ([place] C/NS) 250 ml @ 83.333 mls/ hr Q12H IV Last administered on 07/02/16 08:24; Admin Dose 83.333 MLS/HR; Start 07/02/16 at 08: 00; Stop 07/03/16 at 22:59 CHANDRIKA MERLOS M.D. Jul 02, 2016 09:27
[2016-07-02] MEDS: SOD CHLORIDE 0.9% IVPB SCH ×2 (12:04→15:43)
[2016-07-02] MEDS: MESNA IVPB SCH ×2 (12:04→15:43)
[2016-07-02] MEDS: ONDANSETRON 4 MG INJ IV PRN (12:05)
--- NOTE | 2016-07-02 13:45 | CONS ---
Date/Time of Note Date/Time of Note DATE: 07/02/16 TIME: 13:42 Consult Date/Type/Reason Admit Date/Time Jun 02, 2016 at 15:10 Initial Consult Date 06/02/16 Type of Consultation: ID Ordering Provider: TELLY SOLANO MD Subjective alert, weak, c/o nausea and no appetite, no fevers, s/p chemo last night, nad Objective Vital Signs Date Time Temp Pulse Resp B/P Pulse Ox O2 Delivery O2 Flow Rate FiO2 07/02/16 13:05 78 20 97 Aerosol 5.0 28 07/02/16 11:17 97.9 107/91 Intake and Output 07/01/16 07/01/16 07/02/16 15:00 23:00 07:00 Intake Total 400 ml 2509.5 ml Output Total 900 ml 700 ml Balance -500 ml 1809.5 ml Results/Medications Result Diagram: 07/02/16 0450 07/02/16 0450 Results 24 hrs Laboratory Tests Test 07/02/16 04:50 Alanine Aminotransferase (ALT/SGPT) 47 Albumin 2.5 L Albumin/Globulin Ratio 1.08 Alkaline Phosphatase 107 Anion Gap 10 Aspartate Amino Transf (AST/SGOT) 35 Basophils # 0.0 Basophils % 0.3 Blood Morphology Comment Blood Urea Nitrogen 5 L Calcium Level 8.4 Carbon Dioxide Level 30 Chloride Level 108 Creatinine 0.30 L Direct Bilirubin 0.00 Eosinophils # 0.0 Eosinophils % 0.3 Globulin 2.30 Glucose Level 140 # Hematocrit 24.7 L Hemoglobin 8.6 L Indirect Bilirubin 0.1 Lactate Dehydrogenase 762 H Lymphocytes # 2.0 Lymphocytes % 30.0 Mean Corpuscular Hemoglobin 29.5 Mean Corpuscular Hemoglobin Concent 34.6 Mean Corpuscular Volume 85.2 Mean Platelet Volume 6.8 L Monocytes # 0.2 L Monocytes % 2.8 Neutrophils # 4.5 Neutrophils % 66.6 Nucleated Red Blood Cells # 0.0 Nucleated Red Blood Cells % 0.0 Platelet Count 259 # Potassium Level 4.1 Red Blood Count 2.90 L Red Cell Distribution Width 16.5 H Sodium Level 144 Total Bilirubin 0.1 L Total Protein 4.8 L White Blood Count 6.8 Medications Current Medications Acyclovir (Zovirax) 400 mg BID PO Last administered on 07/02/16t 09:02; Admin Dose 400 MG; Start 06/02/16 at 14:30 Diphenhydramine HCl (Benadryl) 25 mg Q4H PRN IV ALLERGIC REACTION Last administered on 06/06/16at 20:26; Admin Dose 25 MG; Start 06/02/16 at 18:30 Dexamethasone (Decadron) 10 mg Q4H PRN IV ALLERGIC REACTION; Start 06/02/16 at 18:30 Fluconazole 100 mg 100 mg DAILY PO Last administered on 06/08/16at 09:58; Admin Dose 100 MG; Start 06/03/16 at 09:00; Status Future Hold Ondansetron HCl/ Sodium Chloride (Zofran Inj/NS) 54 ml @ 216 mls/hr Q6H PRN IV NAUSEA AND/OR VOMITING Last administered on 06/21/16 21:18; Admin Dose 216 MLS/HR; Start 06/02/16 at 18:30 Ondansetron HCl (Zofran Inj) 4 mg Q6H PRN IV NAUSEA AND/OR VOMITING Last administered on 07/02/16 12:05; Admin Dose 4 MG; Start 06/03/16 at 17:00 Acetaminophen (Tylenol Tab) 650 mg Q6H PRN PO PAIN LEVEL 1-3 OR FEVER Last administered on 06/24/16 09:16; Admin Dose 650 MG; Start 06/03/16 at 17:00 Acetaminophen (Tylenol Supp) 650 mg Q6H PRN [place] PAIN LEVEL 1-3 OR FEVER Last administered on 06/09/16at 03:37; Admin Dose 650 MG; Start 06/03/16 at 17:00 Docusate Sodium (Colace) 100 mg Q12H PRN PO CONSTIPATION Last administered on 06/20/16at 22:25; Admin Dose 100 MG; Start 06/03/16 at 17:00 Magnesium Hydroxide (Milk Of Mag) 30 ml DAILY PRN PO CONSTIPATION Last administered on 06/20/16 06:13; Admin Dose 30 ML; Start 06/03/16 at 17:00 Bisacodyl (Dulcolax) 5 mg DAILY PRN PO CONSTIPATION; Start 06/03/16 at 17:00 Bisacodyl (Dulcolax Supp) 10 mg DAILY PRN [place] CONSTIPATION Last administered on 06/21/16 05:18; Admin Dose 10 MG; Start 06/03/16 at 17:00 Sodium Biphosphate/ Sodium Phosphate (Fleet Enema) 133 ml DAILY PRN [place] CONSTIPATION; Start 06/03/16 at 17:00 Enoxaparin Sodium (Lovenox) 30 mg DAILY SC Last administered on 06/12/16at 08: 27; Admin Dose 30 MG; Start 06/04/16 at 09:00; Status Future Hold Allopurinol (Zyloprim) 300 mg DAILY PO Last administered on 07/02/16 09:02; Admin Dose 300 MG; Start 06/04/16 at 09:00 Eye Lubricant (Artificial Tears Oph) 2 drop QID BOTH EYES Last administered on 07/02/16 12:05; Admin Dose 2 DROP; Start 06/03/16 at 21:00 Eye Lubricant (Akwa Oint) 1 applic DAILY BOTH EYES Last administered on 08:26; Admin Dose 1 APPLIC; Start 06/04/16 at 09:00 Gabapentin (Neurontin) 200 mg TID PO Last administered on 07/02/16 12:05; Admin Dose 200 MG; Start 06/03/16 at 21:00 Levothyroxine Sodium (Synthroid) 100 mcg DAILY@06 PO Last administered on 05:26; Admin Dose 100 MCG; Start 06/04/16 at 06:00 Pantoprazole (Protonix Iv) 40 mg DAILY@06 IV Last administered on 07/02/16 05: 26; Admin Dose 40 MG; Start 06/09/16 at 06:00 Lorazepam (Ativan) 1 mg Q6H PRN IV AGITATION/ANXIETY Last administered on 16:31; Admin Dose 1 MG; Start 06/08/16 at 18:00 Acetaminophen/ Hydrocodone Bitart ([place] (5/325)) 1 tab Q6H PRN PO PAIN Last administered on 06/11/16at 17:38; Admin Dose 1 TAB; Start 06/11/16 at 17:30 Collagenase (Santyl) 1 applic DAILY TOP Last administered on 07/02/16 09:06; Admin Dose 1 APPLIC; Start 06/12/16 at 09:00 Nystatin (Nystatin Susp) 5 ml QID PO Last administered on 07/02/16 12:05; Admin Dose 5 ML; Start 06/18/16 at 17:00 Scopolamine (Transderm-Scop) 1 patch Q72H TRANSDERM Last administered on 20:16; Admin Dose 1 PATCH; Start 06/22/16 at 21:00 Doxycycline Hyclate (Vibramycin) 100 mg BID PO Last administered on 07/02/16 09:02; Admin Dose 100 MG; Start 06/27/16 at 21:00 Fluconazole (Diflucan) 100 mg DAILY PO Last administered on 07/02/16 09:02; Admin Dose 100 MG; Start 06/28/16 at 09:00 Potassium Chloride 10 meq 10 meq BID PO Last administered on 07/02/16 09:01; Admin Dose 10 MEQ; Start 06/30/16 at 10:00 Sodium Chloride (NS) 1,000 ml @ 100 mls/hr Q10H IV Last administered on 05:26; Admin Dose 100 MLS/HR; Start 07/01/16 at 19:00 Lactobacillus Acidoph/ Bulgaricus 1 tab 1 tab BID PO Last administered on 09:02; Admin Dose 1 TAB; Start 07/01/16 at 21:00 Etoposide 105 mg/ Sodium Chloride 500 ml @ 500 mls/hr Q24H IV Last administered on 07/02/16 04:23; Admin Dose 500 MLS/HR; Start 07/02/16 at 04:00 ; Stop 07/06/16 at 04:59 Ifosfamide 2.63 gm/[place] 525 mg/ Sodium Chloride 250 ml @ 125 mls/hr Q24H IV Last administered on 07/02/16 05:52; Admin Dose 125 MLS/HR; Start 07/02/16 at 05:00; Stop 07/06/16 at 06:59 [place] 525 mg/ Sodium Chloride 105.25 ml @ 200 mls/ hr BID@11,15 IVPB Last administered on 07/02/16 12:04; Admin Dose 200 MLS/HR; Start 07/02/16 at 11:00 ; Stop 07/06/16 at 16:00 Cytarabine/Sodium Chloride ([place] C/NS) 250 ml @ 83.333 mls/ hr Q12H IV Last administered on 07/02/16 08:24; Admin Dose 83.333 MLS/HR; Start 07/02/16 at 08: 00; Stop 07/03/16 at 22:59 Assessment/Plan Chief Complaint/Hosp Course INDWELLINGS: Trach, PICC line. PHYSICAL EXAMINATION: GENERAL: This is a well-developed, ill-appearing, middle-aged [place] woman, who is alert, in no distress. HEENT: Head atraumatic, normocephalic. Sclerae anicteric. Buccal mucosa pink. NECK: Supple. Tracheostomy present. CHEST: Chest rise is symmetrical. Breath sounds clear, diminished to the bases. HEART: S1, S2. ABDOMEN: Soft, bowel tones present. EXTREMITIES: Without cyanosis. ASSESSMENT: 1. Nausea 2 to chemo 2. S/p acute tracheobronchitis, with sputum culture growing methicillin- resistant Staphylococcus aureus. 3. Methicillin-resistant Staphylococcus aureus nares colonization==> repeat cx negative. 4. Stage IIIA Burkitt's lymphoma, in chemotherapy. 5. Respiratory failure secondary to respiratory compromise by neck mass, requiring tracheostomy. 6. Pancytopenia==> resolved. PLAN: More weak today but stable, no fevers, continue Doxycycline for MRSA + sputum, continue Diflucan, Zofran prn, oncology rec-s. DW staff Problems: RODRÍGUEZ ERAZO NP Jul 02, 2016 13:44
--- NOTE | 2016-07-02 21:24 | PN ---
Date/Time of Note Date/Time of Note DATE: 07/02/16 TIME: 21:23 Assessment/Plan VTE Prophylaxis VTE Prophylaxis Intervention: other Lines/Catheters IV Catheter Type (from Nrs): PICC Line Central line still needed: Yes Urinary Cath still in place: No Assessment/Plan Chief Complaint/Hosp Course IMPRESSION: The patient has Burkitt's lymphoma status post tracheostomy, status post thyroid mass, status post pancytopenia, abnormal liver function test. better The patient has PANCYTOPENIA, ON CHEMO better SEPSIS better gallstone ABN LFT better hypokalemia PLAN per oncology Problems: Subjective 24 Hr Interval Summary Constitutional: no complaints Eyes: no complaints Exam/Review of Systems Vital Signs Vitals Vital Signs Date Time Temp Pulse Resp B/P Pulse Ox O2 Delivery O2 Flow Rate FiO2 07/02/16 17:38 97 5.0 28 07/02/16 17:35 76 18 Aerosol 07/02/16 16:50 97.9 120/56 Intake and Output 07/01/16 07/01/16 07/02/16 15:00 23:00 07:00 Intake Total 400 ml 2509.5 ml Output Total 900 ml 700 ml Balance -500 ml 1809.5 ml Exam Neck: supple Respiratory: clear to auscultation Cardiovascular: regular rate and rhythm Gastrointestinal: soft Musculoskeletal: nl extremities to inspection Results Result Diagram: 07/02/1644907/02/16 0450 Results 24 hrs Laboratory Tests Test 07/02/16 04:50 Alanine Aminotransferase (ALT/SGPT) 47 Albumin 2.5 L Albumin/Globulin Ratio 1.08 Alkaline Phosphatase 107 Anion Gap 10 Aspartate Amino Transf (AST/SGOT) 35 Basophils # 0.0 Basophils % 0.3 Blood Morphology Comment Blood Urea Nitrogen 5 L Calcium Level 8.4 Carbon Dioxide Level 30 Chloride Level 108 Creatinine 0.30 L Direct Bilirubin 0.00 Eosinophils # 0.0 Eosinophils % 0.3 Globulin 2.30 Glucose Level 140 # Hematocrit 24.7 L Hemoglobin 8.6 L Indirect Bilirubin 0.1 Lactate Dehydrogenase 762 H Lymphocytes # 2.0 Lymphocytes % 30.0 Mean Corpuscular Hemoglobin 29.5 Mean Corpuscular Hemoglobin Concent 34.6 Mean Corpuscular Volume 85.2 Mean Platelet Volume 6.8 L Monocytes # 0.2 L Monocytes % 2.8 Neutrophils # 4.5 Neutrophils % 66.6 Nucleated Red Blood Cells # 0.0 Nucleated Red Blood Cells % 0.0 Platelet Count 259 # Potassium Level 4.1 Red Blood Count 2.90 L Red Cell Distribution Width 16.5 H Sodium Level 144 Total Bilirubin 0.1 L Total Protein 4.8 L White Blood Count 6.8 Medications Medications Current Medications Acyclovir (Zovirax) 400 mg BID PO Last administered on 07/02/16 21:12; Admin Dose 400 MG; Start 06/02/16 at 14:30 Diphenhydramine HCl (Benadryl) 25 mg Q4H PRN IV ALLERGIC REACTION Last administered on 06/06/16 20:26; Admin Dose 25 MG; Start 06/02/16 at 18:30 Dexamethasone (Decadron) 10 mg Q4H PRN IV ALLERGIC REACTION; Start 06/02/16 at 18:30 Fluconazole 100 mg 100 mg DAILY PO Last administered on 06/08/16 09:58; Admin Dose 100 MG; Start 06/03/16 at 09:00; Status Future Hold Ondansetron HCl/ Sodium Chloride (Zofran Inj/NS) 54 ml @ 216 mls/hr Q6H PRN IV NAUSEA AND/OR VOMITING Last administered on 06/21/16 21:18; Admin Dose 216 MLS/HR; Start 06/02/16 at 18:30 Ondansetron HCl (Zofran Inj) 4 mg Q6H PRN IV NAUSEA AND/OR VOMITING Last administered on 07/02/16 12:05; Admin Dose 4 MG; Start 06/03/16 at 17:00 Acetaminophen (Tylenol Tab) 650 mg Q6H PRN PO PAIN LEVEL 1-3 OR FEVER Last administered on 06/24/16 09:16; Admin Dose 650 MG; Start 06/03/16 at 17:00 Acetaminophen (Tylenol Supp) 650 mg Q6H PRN [place] PAIN LEVEL 1-3 OR FEVER Last administered on 06/09/16 03:37; Admin Dose 650 MG; Start 06/03/16 at 17:00 Docusate Sodium (Colace) 100 mg Q12H PRN PO CONSTIPATION Last administered on 06/20/16 22:25; Admin Dose 100 MG; Start 06/03/16 at 17:00 Magnesium Hydroxide (Milk Of Mag) 30 ml DAILY PRN PO CONSTIPATION Last administered on 06/20/16 06:13; Admin Dose 30 ML; Start 06/03/16 at 17:00 Bisacodyl (Dulcolax) 5 mg DAILY PRN PO CONSTIPATION; Start 06/03/16 at 17:00 Bisacodyl (Dulcolax Supp) 10 mg DAILY PRN [place] CONSTIPATION Last administered on 06/21/16 05:18; Admin Dose 10 MG; Start 06/03/16 at 17:00 Sodium Biphosphate/ Sodium Phosphate (Fleet Enema) 133 ml DAILY PRN [place] CONSTIPATION; Start 06/03/16 at 17:00 Enoxaparin Sodium (Lovenox) 30 mg DAILY SC Last administered on 06/12/16 08: 27; Admin Dose 30 MG; Start 06/04/16 at 09:00; Status Future Hold Allopurinol (Zyloprim) 300 mg DAILY PO Last administered on 07/02/16 09:02; Admin Dose 300 MG; Start 06/04/16 at 09:00 Eye Lubricant (Artificial Tears Oph) 2 drop QID BOTH EYES Last administered on 07/02/16 21:14; Admin Dose 2 DROP; Start 06/03/16 at 21:00 Eye Lubricant (Akwa Oint) 1 applic DAILY BOTH EYES Last administered on 08:26; Admin Dose 1 APPLIC; Start 06/04/16 at 09:00 Gabapentin (Neurontin) 200 mg TID PO Last administered on 07/02/16 21:12; Admin Dose 200 MG; Start 06/03/16 at 21:00 Levothyroxine Sodium (Synthroid) 100 mcg DAILY@06 PO Last administered on 05:26; Admin Dose 100 MCG; Start 06/04/16 at 06:00 Pantoprazole (Protonix Iv) 40 mg DAILY@06 IV Last administered on 07/02/16 05: 26; Admin Dose 40 MG; Start 06/09/16 at 06:00 Lorazepam (Ativan) 1 mg Q6H PRN IV AGITATION/ANXIETY Last administered on 16:31; Admin Dose 1 MG; Start 06/08/16 at 18:00 Acetaminophen/ Hydrocodone Bitart ([place] (5/325)) 1 tab Q6H PRN PO PAIN Last administered on 06/11/16at 17:38; Admin Dose 1 TAB; Start 06/11/16 at 17:30 Collagenase (Santyl) 1 applic DAILY TOP Last administered on 07/02/16 09:06; Admin Dose 1 APPLIC; Start 06/12/16 at 09:00 Nystatin (Nystatin Susp) 5 ml QID PO Last administered on 07/02/16 16:34; Admin Dose 5 ML; Start 06/18/16 at 17:00 Scopolamine (Transderm-Scop) 1 patch Q72H TRANSDERM Last administered on 20:16; Admin Dose 1 PATCH; Start 06/22/16 at 21:00 Doxycycline Hyclate (Vibramycin) 100 mg BID PO Last administered on 07/02/16 21:12; Admin Dose 100 MG; Start 06/27/16 at 21:00 Fluconazole (Diflucan) 100 mg DAILY PO Last administered on 07/02/16 09:02; Admin Dose 100 MG; Start 06/28/16 at 09:00 Potassium Chloride 10 meq 10 meq BID PO Last administered on 07/02/16 21:12; Admin Dose 10 MEQ; Start 06/30/16 at 10:00 Sodium Chloride (NS) 1,000 ml @ 100 mls/hr Q10H IV Last administered on 16:35; Admin Dose 100 MLS/HR; Start 07/01/16 at 19:00 Lactobacillus Acidoph/ Bulgaricus 1 tab 1 tab BID PO Last administered on 21:11; Admin Dose 1 TAB; Start 07/01/16 at 21:00 Etoposide 105 mg/ Sodium Chloride 500 ml @ 500 mls/hr Q24H IV Last administered on 07/02/16 04:23; Admin Dose 500 MLS/HR; Start 07/02/16 at 04:00 ; Stop 07/06/16 at 04:59 Ifosfamide 2.63 gm/[place] 525 mg/ Sodium Chloride 250 ml @ 125 mls/hr Q24H IV Last administered on 07/02/16 05:52; Admin Dose 125 MLS/HR; Start 07/02/16 at 05:00; Stop 07/06/16 at 06:59 [place] 525 mg/ Sodium Chloride 105.25 ml @ 200 mls/ hr BID@11,15 IVPB Last administered on 1/11/17at 15:43; Admin Dose 200 MLS/HR; Start 07/02/16 at 11:00 ; Stop 07/06/16 at 16:00 Cytarabine/Sodium Chloride (Leena C/NS) 250 ml @ 83.333 mls/ hr Q12H IV Last administered on 07/02/16t 20:12; Admin Dose 83.333 MLS/HR; Start 07/02/16 at 08: 00; Stop 07/03/16 at 22:59 GUERLINE SULLIVAN MD Jul 02, 2016 21:24
[2016-07-03] VITALS (17 sets, daily range): BP systolic 105–132; BP diastolic 55–77; PULSE 76–108; RESP 18–20
[2016-07-03] MEDS: SOD CHLORIDE 0.9% 1,000 ML IV SCH ×2 (01:07→14:29)
[2016-07-03] MEDS: ALBUTEROL/IPRATROPIUM (NEB) 3 ML AMP HHN SCH ×6 (02:03→21:30)
[2016-07-03] MEDS: ETOPOSIDE IV SCH (03:22)
[2016-07-03] MEDS: SOD CHLORIDE 0.9% IV SCH ×4 (03:22→20:30)
[2016-07-03] MEDS: LEVOTHYROXINE 100 MCG TAB PO SCH (05:32)
[2016-07-03] MEDS: PANTOPRAZOLE 40 MG INJ IV SCH (05:32)
[2016-07-03] MEDS: IFOSFAMIDE IV SCH (05:37)
[2016-07-03] MEDS: MESNA IV SCH (05:37)
[2016-07-03 05:50] LABS: BASOPHILS % 0.1 % (0.0-2.0); EOSINOPHILS % 0.1 % (0.0-7.0); HEMATOCRIT 20.5 % (37.0-47.0); LYMPHOCYTES # 0.5 10^3/ul (0.8-2.9); LYMPHOCYTES % 11.6 % (15.0-51.0); MEAN CORPUSCULAR HEMOGLOBIN 29.5 pg (29.0-33.0); MEAN CORPUSCULAR HGB CONC 34.2 g/dl (32.0-37.0); MEAN PLATELET VOLUME 6.8 fl (7.4-10.4); MONOCYTE # 0.1 10^3/ul (0.3-0.9); MONOCYTES % 2.8 % (0.0-11.0); NEUTROPHIL # 3.8 10^3/ul (1.6-7.5); NEUTROPHILS % 85.4 % (39.0-77.0); PLATELET COUNT 247 10^3/UL (140-440); RED BLOOD COUNT 2.39 10^6/ul (4.20-5.40); RED CELL DISTRIBUTION WIDTH 17.3 % (11.5-14.5); UNCORRECTED WBC 4.4 10^3/ul (4.8-10.8); WHITE BLOOD COUNT 4.4 10^3/ul (4.8-10.8)
[2016-07-03] MEDS: ONDANSETRON 4 MG INJ IV PRN (05:59)
[2016-07-03 06:03] LABS: CONDITION 1; LH ANALYZER COMMENTS 1
[2016-07-03 06:32] LABS: ALBUMIN 2.1 g/dl (3.3-4.9); POTASSIUM 3.4 mmol/L (3.5-5.1)
[2016-07-03 06:34] LABS: ALBUMIN/GLOBULIN RATIO 1.05; CREATININE 0.31 mg/dl (0.44-1.00); TOTAL PROTEIN 4.1 g/dl (6.1-8.1)
[2016-07-03 06:35] LABS: CALCIUM 7.6 mg/dl (8.4-10.2)
[2016-07-03] MEDS: FLUCONAZOLE 100 MG TAB PO SCH ×2 (09:00→09:32)
[2016-07-03] MEDS: GABAPENTIN 100 MG CAP PO SCH ×4 (09:00→21:42)
[2016-07-03] MEDS: NYSTATIN SUSP 5 ML CUP PO SCH ×5 (09:00→21:42)
[2016-07-03] MEDS: DOXYCYCLINE 100 MG TAB PO SCH ×3 (09:00→21:42)
[2016-07-03] MEDS: LACTOBACILLUS CHEW TAB PO SCH ×3 (09:00→21:42)
[2016-07-03] MEDS: ALLOPURINOL 300 MG TAB PO SCH ×2 (09:00→09:33)
[2016-07-03] MEDS: ACYCLOVIR 400 MG TAB PO SCH ×3 (09:00→21:42)
[2016-07-03] MEDS: CYTARABINE IV SCH ×2 (09:24→20:30)
[2016-07-03] MEDS: ARTIFICIAL TEARS 15 ML OPH BOTH EYES SCH ×4 (09:32→21:42)
[2016-07-03] MEDS: OCULAR LUBRICANT 3.5 GM OPH OINT BOTH EYES SCH (09:32)
[2016-07-03] MEDS: POTASSIUM CHLORIDE (SR) 10 MEQ TAB PO SCH (09:33)
[2016-07-03] MEDS: COLLAGENASE 30 GM TUBE TOP SCH (09:34)
--- NOTE | 2016-07-03 10:14 | CONS ---
Date/Time of Note Date/Time of Note DATE: 07/03/16 TIME: 10:12 Assessment/Plan Assessment/Plan Chief Complaint/Hosp Course 56 yo female with massive neck mass causing tracheal compression and airway compromise s/p tracheostomy placement. 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 Pt was given cycle 1A and 1B of R HyperCVAD but had only a partial response to therapy and severe side effects. We have thus changed her chemotherapy regimen. She is now s/p cycle 1A of R-CODOX-M and has now completed her chemotherapy. Most recent CT neck showed resolution of the mass. Pt's counts are now improving and she is no longer transfusion dependant. She has since started Cycle 1B and is receiving R-IVAC Problems: Additional Assessment/Plan # Burkitt's lymphoma - currently day 2 cycle 1B R -IVAC. chemotherapy regimen is as follows Part 2: R-IVAC Rituximab (Rituxan) 375 mg/m2 IV once on day 1 Ifosfamide (Ifex) 1500 mg/m2 IV over 2 hours once per day on days 1 to 5 Etoposide (Vepesid) 60 mg/m2 IV over 1 hour once per day on days 1 to 5 Cytarabine (Cytosar) 2 g/m2 IV over 3 hours Q12H on days 1 & 2 (4 doses total) [place] (Mesnex) 300 mg/m2 (mixed with Ifosfamide (Ifex)) , then 300mg/m2 IV every four hours x 2, on days 1 to 5 # Supportive Care and prophylactic meds -Started Acyclovir 400mg BID -fluconazole 100mg q day -Neupogen 300mcg q day day after chemotherapy is completed -Zofran ordered prn nausea #Expected Pancytopenia -keep Hg> 8 and platelets > 10. pt to get 1 units of prbc today # Elevated AST and ALT, likely related to methotrexate. 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 all steroids should be discontinued for now unless they are part of the chemotherapy regimen -continue to work with physical therapy. 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 -uric acid level ok Approximately 40 min were spent at patient's bedside and in coordination of her care Consultation Date/Type/Reason Admit Date/Time Jun 02, 2016 at 15:10 Initial Consult Date 06/02/16 Type of Consultation: Hematology Reason for Consultation stage II Burkitt's lymphoma Referring Provider: TELLY SOLANO MD 24 HR Interval Summary Free Text/Dictation no acute overnight events. pt continues on chemotherapy. Hg did drop. Exam/Review of Systems Vital Signs Vitals Vital Signs Date Time Temp Pulse Resp B/P Pulse Ox O2 Delivery O2 Flow Rate FiO2 07/03/16 09:35 89 17 99 T Tube 5.0 28 07/03/16 08:20 97.7 117/70 Intake and Output 07/02/16 07/02/16 07/03/16 15:00 23:00 07:00 Intake Total 1765.25 ml 2250 ml Output Total 300 ml 800 ml Balance 1465.25 ml 1450 ml Exam Constitutional: alert, oriented Psych: no complaints Head: atraumatic, normocephalic Eyes: nl conjunctiva ENMT: nl external ears & nose Neck: other (trach in place) Respiratory: clear to auscultation, normal air movement Cardiovascular: nl pulses, regular rate and rhythm Gastrointestinal: soft Musculoskeletal: nl extremities to inspection, nl gait and stance Extremities: normal pulses Results Result Diagram: 07/03/1644907/03/16 0450 Results 24 hrs Laboratory Tests Test 07/03/16 04:50 Alanine Aminotransferase (ALT/SGPT) 44 Albumin 2.1 L Albumin/Globulin Ratio 1.05 Alkaline Phosphatase 87 Anion Gap 14 Aspartate Amino Transf (AST/SGOT) 32 Basophils # 0.0 Basophils % 0.1 Blood Morphology Comment Blood Urea Nitrogen 8 Calcium Level 7.6 L Carbon Dioxide Level 25 Chloride Level 110 Creatinine 0.31 L Direct Bilirubin 0.00 Eosinophils # 0.0 Eosinophils % 0.1 Globulin 2.00 Glucose Level 96 # Hematocrit 20.5 L Hemoglobin 7.0 L Indirect Bilirubin 0.0 Lactate Dehydrogenase 586 Lactic Acid Level 1.9 Lymphocytes # 0.5 L Lymphocytes % 11.6 L Mean Corpuscular Hemoglobin 29.5 Mean Corpuscular Hemoglobin Concent 34.2 Mean Corpuscular Volume 86.0 Mean Platelet Volume 6.8 L Monocytes # 0.1 L Monocytes % 2.8 Neutrophils # 3.8 Neutrophils % 85.4 H Nucleated Red Blood Cells # 0.0 Nucleated Red Blood Cells % 0.0 Platelet Count 247 Potassium Level 3.4 L Red Blood Count 2.39 L Red Cell Distribution Width 17.3 H Sodium Level 146 H Total Bilirubin 0.0 L Total Protein 4.1 L White Blood Count 4.4 #L Medications Medications Current Medications Acyclovir (Zovirax) 400 mg BID PO Last administered on 07/03/16 09:33; Admin Dose 400 MG; Start 06/02/16 at 14:30 Diphenhydramine HCl (Benadryl) 25 mg Q4H PRN IV ALLERGIC REACTION Last administered on 06/06/16 20:26; Admin Dose 25 MG; Start 06/02/16 at 18:30 Dexamethasone (Decadron) 10 mg Q4H PRN IV ALLERGIC REACTION; Start 06/02/16 at 18:30 Fluconazole 100 mg 100 mg DAILY PO Last administered on 06/08/16 09:58; Admin Dose 100 MG; Start 06/03/16 at 09:00; Status Future Hold Ondansetron HCl/ Sodium Chloride (Zofran Inj/NS) 54 ml @ 216 mls/hr Q6H PRN IV NAUSEA AND/OR VOMITING Last administered on 06/21/16 21:18; Admin Dose 216 MLS/HR; Start 06/02/16 at 18:30 Ondansetron HCl (Zofran Inj) 4 mg Q6H PRN IV NAUSEA AND/OR VOMITING Last administered on 07/03/16 05:59; Admin Dose 4 MG; Start 06/03/16 at 17:00 Acetaminophen (Tylenol Tab) 650 mg Q6H PRN PO PAIN LEVEL 1-3 OR FEVER Last administered on 06/24/16 09:16; Admin Dose 650 MG; Start 06/03/16 at 17:00 Acetaminophen (Tylenol Supp) 650 mg Q6H PRN [place] PAIN LEVEL 1-3 OR FEVER Last administered on 06/09/16 03:37; Admin Dose 650 MG; Start 06/03/16 at 17:00 Docusate Sodium (Colace) 100 mg Q12H PRN PO CONSTIPATION Last administered on 06/20/16 22:25; Admin Dose 100 MG; Start 06/03/16 at 17:00 Magnesium Hydroxide (Milk Of Mag) 30 ml DAILY PRN PO CONSTIPATION Last administered on 06/20/16 06:13; Admin Dose 30 ML; Start 06/03/16 at 17:00 Bisacodyl (Dulcolax) 5 mg DAILY PRN PO CONSTIPATION; Start 06/03/16 at 17:00 Bisacodyl (Dulcolax Supp) 10 mg DAILY PRN [place] CONSTIPATION Last administered on 06/21/16at 05:18; Admin Dose 10 MG; Start 06/03/16 at 17:00 Sodium Biphosphate/ Sodium Phosphate (Fleet Enema) 133 ml DAILY PRN [place] CONSTIPATION; Start 06/03/16 at 17:00 Enoxaparin Sodium (Lovenox) 30 mg DAILY SC Last administered on 06/12/16at 08: 27; Admin Dose 30 MG; Start 06/04/16 at 09:00; Status Future Hold Allopurinol (Zyloprim) 300 mg DAILY PO Last administered on 07/03/16 09:33; Admin Dose 300 MG; Start 06/04/16 at 09:00 Eye Lubricant (Artificial Tears Oph) 2 drop QID BOTH EYES Last administered on 07/03/16 09:32; Admin Dose 2 DROP; Start 06/03/16 at 21:00 Eye Lubricant ([place]wa Oint) 1 applic DAILY BOTH EYES Last administered on 09:32; Admin Dose 1 APPLIC; Start 06/04/16 at 09:00 Gabapentin (Neurontin) 200 mg TID PO Last administered on 07/03/16 09:32; Admin Dose 200 MG; Start 06/03/16 at 21:00 Levothyroxine Sodium (Synthroid) 100 mcg DAILY@06 PO Last administered on 05:32; Admin Dose 100 MCG; Start 06/04/16 at 06:00 Pantoprazole (Protonix Iv) 40 mg DAILY@06 IV Last administered on 07/03/16 05: 32; Admin Dose 40 MG; Start 06/09/16 at 06:00 Lorazepam (Ativan) 1 mg Q6H PRN IV AGITATION/ANXIETY Last administered on 16:31; Admin Dose 1 MG; Start 06/08/16 at 18:00 Acetaminophen/ Hydrocodone Bitart ([place] (5/325)) 1 tab Q6H PRN PO PAIN Last administered on 06/11/16at 17:38; Admin Dose 1 TAB; Start 06/11/16 at 17:30 Collagenase (Santyl) 1 applic DAILY TOP Last administered on 07/03/16 09:34; Admin Dose 1 APPLIC; Start 06/12/16 at 09:00 Nystatin (Nystatin Susp) 5 ml QID PO Last administered on 07/03/16 09:33; Admin Dose 5 ML; Start 06/18/16 at 17:00 Scopolamine (Transderm-Scop) 1 patch Q72H TRANSDERM Last administered on 20:16; Admin Dose 1 PATCH; Start 06/22/16 at 21:00 Doxycycline Hyclate (Vibramycin) 100 mg BID PO Last administered on 07/03/16 09:32; Admin Dose 100 MG; Start 06/27/16 at 21:00 Fluconazole (Diflucan) 100 mg DAILY PO Last administered on 07/03/16 09:32; Admin Dose 100 MG; Start 06/28/16 at 09:00 Potassium Chloride 10 meq 10 meq BID PO Last administered on 07/03/16 09:33; Admin Dose 10 MEQ; Start 06/30/16 at 10:00 Sodium Chloride (NS) 1,000 ml @ 100 mls/hr Q10H IV Last administered on 01:07; Admin Dose 100 MLS/HR; Start 07/01/16 at 19:00 Lactobacillus Acidoph/ [place] 1 tab 1 tab BID PO Last administered on 09:33; Admin Dose 1 TAB; Start 07/01/16 at 21:00 Etoposide 105 mg/ Sodium Chloride 500 ml @ 500 mls/hr Q24H IV Last administered on 07/03/16 03:22; Admin Dose 500 MLS/HR; Start 07/02/16 at 04:00 ; Stop 07/06/16 at 04:59 Ifosfamide 2.63 gm/[place] 525 mg/ Sodium Chloride 250 ml @ 125 mls/hr Q24H IV Last administered on 07/03/16 05:37; Admin Dose 125 MLS/HR; Start 07/02/16 at 05:00; Stop 07/06/16 at 06:59 [place] 525 mg/ Sodium Chloride 105.25 ml @ 200 mls/ hr BID@11,15 IVPB Last administered on 07/02/16 15:43; Admin Dose 200 MLS/HR; Start 07/02/16 at 11:00 ; Stop 07/06/16 at 16:00 Cytarabine/Sodium Chloride ([place]ena C/NS) 250 ml @ 83.333 mls/ hr Q12H IV Last administered on 07/03/16t 09:24; Admin Dose 83.333 MLS/HR; Start 07/02/16 at 08: 00; Stop 07/03/16 at 22:59 CHANDRIKA MERLOS M.D. Jul 03, 2016 10:14
[2016-07-03] MEDS: LORAZEPAM 2 MG INJ IV PRN (10:53)
[2016-07-03] MEDS: MESNA IVPB SCH ×2 (13:17→17:16)
[2016-07-03] MEDS: SOD CHLORIDE 0.9% IVPB SCH ×2 (13:17→17:16)
--- NOTE | 2016-07-03 14:37 | CONS ---
Date/Time of Note Date/Time of Note DATE: 07/03/16 TIME: 14:35 Consult Date/Type/Reason Admit Date/Time Jun 02, 2016 at 15:10 Initial Consult Date 06/02/16 Type of Consultation: id Ordering Provider: TELLY SOLANO MD Subjective sleeping s/p Ativan, no fevers, weak post chemo, on/off nausea per dw staff, nad Objective Vital Signs Date Time Temp Pulse Resp B/P Pulse Ox O2 Delivery O2 Flow Rate FiO2 07/03/16 09:35 89 17 99 T Tube 5.0 28 07/03/16 08:20 97.7 117/70 Intake and Output 07/02/16 07/02/16 07/03/16 15:00 23:00 07:00 Intake Total 1765.25 ml 2250 ml Output Total 300 ml 800 ml Balance 1465.25 ml 1450 ml Results/Medications Result Diagram: 07/03/16 0450 07/03/16 0450 Results 24 hrs Laboratory Tests Test 07/03/16 04:50 Alanine Aminotransferase (ALT/SGPT) 44 Albumin 2.1 L Albumin/Globulin Ratio 1.05 Alkaline Phosphatase 87 Anion Gap 14 Aspartate Amino Transf (AST/SGOT) 32 Basophils # 0.0 Basophils % 0.1 Blood Morphology Comment Blood Urea Nitrogen 8 Calcium Level 7.6 L Carbon Dioxide Level 25 Chloride Level 110 Creatinine 0.31 L Direct Bilirubin 0.00 Eosinophils # 0.0 Eosinophils % 0.1 Globulin 2.00 Glucose Level 96 # Hematocrit 20.5 L Hemoglobin 7.0 L Indirect Bilirubin 0.0 Lactate Dehydrogenase 586 Lactic Acid Level 1.9 Lymphocytes # 0.5 L Lymphocytes % 11.6 L Mean Corpuscular Hemoglobin 29.5 Mean Corpuscular Hemoglobin Concent 34.2 Mean Corpuscular Volume 86.0 Mean Platelet Volume 6.8 L Monocytes # 0.1 L Monocytes % 2.8 Neutrophils # 3.8 Neutrophils % 85.4 H Nucleated Red Blood Cells # 0.0 Nucleated Red Blood Cells % 0.0 Platelet Count 247 Potassium Level 3.4 L Red Blood Count 2.39 L Red Cell Distribution Width 17.3 H Sodium Level 146 H Total Bilirubin 0.0 L Total Protein 4.1 L White Blood Count 4.4 #L Medications Current Medications Acyclovir (Zovirax) 400 mg BID PO Last administered on 07/02/16 21:12; Admin Dose 400 MG; Start 06/02/16 at 14:30 Diphenhydramine HCl (Benadryl) 25 mg Q4H PRN IV ALLERGIC REACTION Last administered on 06/06/16 20:26; Admin Dose 25 MG; Start 06/02/16 at 18:30 Dexamethasone (Decadron) 10 mg Q4H PRN IV ALLERGIC REACTION; Start 06/02/16 at 18:30 Fluconazole 100 mg 100 mg DAILY PO Last administered on 06/08/16 09:58; Admin Dose 100 MG; Start 06/03/16 at 09:00; Status Future Hold Ondansetron HCl/ Sodium Chloride (Zofran Inj/NS) 54 ml @ 216 mls/hr Q6H PRN IV NAUSEA AND/OR VOMITING Last administered on 06/21/16 21:18; Admin Dose 216 MLS/HR; Start 06/02/16 at 18:30 Ondansetron HCl (Zofran Inj) 4 mg Q6H PRN IV NAUSEA AND/OR VOMITING Last administered on 07/03/16 05:59; Admin Dose 4 MG; Start 06/03/16 at 17:00 Acetaminophen (Tylenol Tab) 650 mg Q6H PRN PO PAIN LEVEL 1-3 OR FEVER Last administered on 06/24/16 09:16; Admin Dose 650 MG; Start 06/03/16 at 17:00 Acetaminophen (Tylenol Supp) 650 mg Q6H PRN [place] PAIN LEVEL 1-3 OR FEVER Last administered on 06/09/16 03:37; Admin Dose 650 MG; Start 06/03/16 at 17:00 Docusate Sodium (Colace) 100 mg Q12H PRN PO CONSTIPATION Last administered on 06/20/16 22:25; Admin Dose 100 MG; Start 06/03/16 at 17:00 Magnesium Hydroxide (Milk Of Mag) 30 ml DAILY PRN PO CONSTIPATION Last administered on 06/20/16 06:13; Admin Dose 30 ML; Start 06/03/16 at 17:00 Bisacodyl (Dulcolax) 5 mg DAILY PRN PO CONSTIPATION; Start 06/03/16 at 17:00 Bisacodyl (Dulcolax Supp) 10 mg DAILY PRN [place] CONSTIPATION Last administered on 06/21/16 05:18; Admin Dose 10 MG; Start 06/03/16 at 17:00 Sodium Biphosphate/ Sodium Phosphate (Fleet Enema) 133 ml DAILY PRN [place] CONSTIPATION; Start 06/03/16 at 17:00 Enoxaparin Sodium (Lovenox) 30 mg DAILY SC Last administered on 06/12/16at 08: 27; Admin Dose 30 MG; Start 06/04/16 at 09:00; Status Future Hold Allopurinol (Zyloprim) 300 mg DAILY PO Last administered on 07/02/16 09:02; Admin Dose 300 MG; Start 06/04/16 at 09:00 Eye Lubricant (Artificial Tears Oph) 2 drop QID BOTH EYES Last administered on 07/03/16 13:17; Admin Dose 2 DROP; Start 06/03/16 at 21:00 Eye Lubricant (Akwa Oint) 1 applic DAILY BOTH EYES Last administered on 09:32; Admin Dose 1 APPLIC; Start 06/04/16 at 09:00 Gabapentin (Neurontin) 200 mg TID PO Last administered on 07/03/16 14:29; Admin Dose 200 MG; Start 06/03/16 at 21:00 Levothyroxine Sodium (Synthroid) 100 mcg DAILY@06 PO Last administered on 05:32; Admin Dose 100 MCG; Start 06/04/16 at 06:00 Pantoprazole (Protonix Iv) 40 mg DAILY@06 IV Last administered on 07/03/16 05: 32; Admin Dose 40 MG; Start 06/09/16 at 06:00 Lorazepam (Ativan) 1 mg Q6H PRN IV AGITATION/ANXIETY Last administered on 10:53; Admin Dose 1 MG; Start 06/08/16 at 18:00 Acetaminophen/ Hydrocodone Bitart ([place]une (5/325)) 1 tab Q6H PRN PO PAIN Last administered on 06/11/16at 17:38; Admin Dose 1 TAB; Start 06/11/16 at 17:30 Collagenase (Santyl) 1 applic DAILY TOP Last administered on 07/03/16 09:34; Admin Dose 1 APPLIC; Start 06/12/16 at 09:00 Nystatin (Nystatin Susp) 5 ml QID PO Last administered on 07/03/16 14:29; Admin Dose 5 ML; Start 06/18/16 at 17:00 Scopolamine (Transderm-Scop) 1 patch Q72H TRANSDERM Last administered on 20:16; Admin Dose 1 PATCH; Start 06/22/16 at 21:00 Doxycycline Hyclate (Vibramycin) 100 mg BID PO Last administered on 07/02/16 21:12; Admin Dose 100 MG; Start 06/27/16 at 21:00 Fluconazole 100 mg 100 mg DAILY PO Last administered on 07/02/16 09:02; Admin Dose 100 MG; Start 06/28/16 at 09:00 Sodium Chloride (NS) 1,000 ml @ 100 mls/hr Q10H IV Last administered on 14:29; Admin Dose 100 MLS/HR; Start 07/01/16 at 19:00 Lactobacillus Acidoph/ Bulgaricus 1 tab 1 tab BID PO Last administered on 21:11; Admin Dose 1 TAB; Start 07/01/16 at 21:00 Etoposide 105 mg/ Sodium Chloride 500 ml @ 500 mls/hr Q24H IV Last administered on 07/03/16 03:22; Admin Dose 500 MLS/HR; Start 07/02/16 at 04:00 ; Stop 07/06/16 at 04:59 Ifosfamide 2.63 gm/[place] 525 mg/ Sodium Chloride 250 ml @ 125 mls/hr Q24H IV Last administered on 07/03/16 05:37; Admin Dose 125 MLS/HR; Start 07/02/16 at 05:00; Stop 07/06/16 at 06:59 Mes[place] 525 mg/ Sodium Chloride 105.25 ml @ 200 mls/ hr BID@11,15 IVPB Last administered on 07/03/16 13:17; Admin Dose 200 MLS/HR; Start 07/02/16 at 11:00 ; Stop 07/06/16 at 16:00 Cytarabine/Sodium Chloride (Leena C/NS) 250 ml @ 83.333 mls/ hr Q12H IV Last administered on 07/03/16 09:24; Admin Dose 83.333 MLS/HR; Start 07/02/16 at 08: 00; Stop 07/03/16 at 22:59 Potassium Chloride (Klor-Con 20) 20 meq BID PO ; Start 07/03/16 at 21:00 Assessment/Plan Chief Complaint/Hosp Course INDWELLINGS: Trach, PICC line. Abx: Doxycycline, Diflucan, Acyclovir PHYSICAL EXAMINATION: GENERAL: This is a well-developed, ill-appearing, middle-aged [place] woman, who is alert, in no distress. HEENT: Head atraumatic, normocephalic. Sclerae anicteric. Buccal mucosa pink. NECK: Supple. Tracheostomy present. CHEST: Chest rise is symmetrical. Breath sounds clear, diminished to the bases. HEART: S1, S2. ABDOMEN: Soft, bowel tones present. EXTREMITIES: Without cyanosis. ASSESSMENT: 1. Nausea 2 to chemo 2. S/p acute tracheobronchitis, with sputum culture growing methicillin- resistant Staphylococcus aureus. 3. Methicillin-resistant Staphylococcus aureus nares colonization==> repeat cx negative. 4. Stage IIIA Burkitt's lymphoma, in chemotherapy. 5. Respiratory failure secondary to respiratory compromise by neck mass, requiring tracheostomy. 6. Pancytopenia. PLAN: Stable, no fevers, no diarrhea, continue present care, abx, chemo per oncology DW staff Problems: RODRÍGUEZ ERAZO NP Jul 03, 2016 14:37
--- NOTE | 2016-07-03 16:08 | PN ---
Date/Time of Note Date/Time of Note DATE: 07/03/16 TIME: 16:06 Assessment/Plan VTE Prophylaxis VTE Prophylaxis Intervention: other Lines/Catheters IV Catheter Type (from Nrs): PICC Line Central line still needed: Yes Urinary Cath still in place: No Assessment/Plan Chief Complaint/Hosp Course IMPRESSION: The patient has Burkitt's lymphoma status post tracheostomy, status post thyroid mass, status post pancytopenia, abnormal liver function test. better The patient has PANCYTOPENIA, ON CHEMO better SEPSIS better gallstone ABN LFT better hypokalemia anemia post chemo PLAN per oncology kcl prbc Problems: Subjective 24 Hr Interval Summary Subjective hx not possible: other (on chemo) Exam/Review of Systems Vital Signs Vitals Vital Signs Date Time Temp Pulse Resp B/P Pulse Ox O2 Delivery O2 Flow Rate FiO2 07/03/16 10:00 Vapotherm 4.0 07/03/16 09:35 89 17 99 28 07/03/16 08:20 97.7 117/70 Intake and Output 07/02/16 07/02/16 07/03/16 15:00 23:00 07:00 Intake Total 1765.25 ml 2250 ml Output Total 300 ml 800 ml Balance 1465.25 ml 1450 ml Exam Neck: supple Respiratory: clear to auscultation Cardiovascular: regular rate and rhythm Gastrointestinal: soft Musculoskeletal: nl extremities to inspection Extremities: normal pulses Results Result Diagram: 07/03/160 07/03/16 0450 Results 24 hrs Laboratory Tests Test 07/03/16 04:50 Alanine Aminotransferase (ALT/SGPT) 44 Albumin 2.1 L Albumin/Globulin Ratio 1.05 Alkaline Phosphatase 87 Anion Gap 14 Aspartate Amino Transf (AST/SGOT) 32 Basophils # 0.0 Basophils % 0.1 Blood Morphology Comment Blood Urea Nitrogen 8 Calcium Level 7.6 L Carbon Dioxide Level 25 Chloride Level 110 Creatinine 0.31 L Direct Bilirubin 0.00 Eosinophils # 0.0 Eosinophils % 0.1 Globulin 2.00 Glucose Level 96 # Hematocrit 20.5 L Hemoglobin 7.0 L Indirect Bilirubin 0.0 Lactate Dehydrogenase 586 Lactic Acid Level 1.9 Lymphocytes # 0.5 L Lymphocytes % 11.6 L Mean Corpuscular Hemoglobin 29.5 Mean Corpuscular Hemoglobin Concent 34.2 Mean Corpuscular Volume 86.0 Mean Platelet Volume 6.8 L Monocytes # 0.1 L Monocytes % 2.8 Neutrophils # 3.8 Neutrophils % 85.4 H Nucleated Red Blood Cells # 0.0 Nucleated Red Blood Cells % 0.0 Platelet Count 247 Potassium Level 3.4 L Red Blood Count 2.39 L Red Cell Distribution Width 17.3 H Sodium Level 146 H Total Bilirubin 0.0 L Total Protein 4.1 L White Blood Count 4.4 #L Medications Medications Current Medications Acyclovir (Zovirax) 400 mg BID PO Last administered on 07/02/16 21:12; Admin Dose 400 MG; Start 06/02/16 at 14:30 Diphenhydramine HCl (Benadryl) 25 mg Q4H PRN IV ALLERGIC REACTION Last administered on 06/06/16 20:26; Admin Dose 25 MG; Start 06/02/16 at 18:30 Dexamethasone (Decadron) 10 mg Q4H PRN IV ALLERGIC REACTION; Start 06/02/16 at 18:30 Fluconazole 100 mg 100 mg DAILY PO Last administered on 06/08/16at 09:58; Admin Dose 100 MG; Start 06/03/16 at 09:00; Status Future Hold Ondansetron HCl/ Sodium Chloride (Zofran Inj/NS) 54 ml @ 216 mls/hr Q6H PRN IV NAUSEA AND/OR VOMITING Last administered on 06/21/16 21:18; Admin Dose 216 MLS/HR; Start 06/02/16 at 18:30 Ondansetron HCl (Zofran Inj) 4 mg Q6H PRN IV NAUSEA AND/OR VOMITING Last administered on 07/03/16 05:59; Admin Dose 4 MG; Start 06/03/16 at 17:00 Acetaminophen (Tylenol Tab) 650 mg Q6H PRN PO PAIN LEVEL 1-3 OR FEVER Last administered on 06/24/16 09:16; Admin Dose 650 MG; Start 06/03/16 at 17:00 Acetaminophen (Tylenol Supp) 650 mg Q6H PRN [place] PAIN LEVEL 1-3 OR FEVER Last administered on 06/09/16at 03:37; Admin Dose 650 MG; Start 06/03/16 at 17:00 Docusate Sodium (Colace) 100 mg Q12H PRN PO CONSTIPATION Last administered on 06/20/16 22:25; Admin Dose 100 MG; Start 06/03/16 at 17:00 Magnesium Hydroxide (Milk Of Mag) 30 ml DAILY PRN PO CONSTIPATION Last administered on 06/20/16at 06:13; Admin Dose 30 ML; Start 06/03/16 at 17:00 Bisacodyl (Dulcolax) 5 mg DAILY PRN PO CONSTIPATION; Start 06/03/16 at 17:00 Bisacodyl (Dulcolax Supp) 10 mg DAILY PRN [place] CONSTIPATION Last administered on 06/21/16at 05:18; Admin Dose 10 MG; Start 06/03/16 at 17:00 Sodium Biphosphate/ Sodium Phosphate (Fleet Enema) 133 ml DAILY PRN [place] CONSTIPATION; Start 06/03/16 at 17:00 Enoxaparin Sodium (Lovenox) 30 mg DAILY SC Last administered on 06/12/16at 08: 27; Admin Dose 30 MG; Start 06/04/16 at 09:00; Status Future Hold Allopurinol (Zyloprim) 300 mg DAILY PO Last administered on 07/02/16 09:02; Admin Dose 300 MG; Start 06/04/16 at 09:00 Eye Lubricant (Artificial Tears Oph) 2 drop QID BOTH EYES Last administered on 07/03/16 13:17; Admin Dose 2 DROP; Start 06/03/16 at 21:00 Eye Lubricant (Akwa Oint) 1 applic DAILY BOTH EYES Last administered on 09:32; Admin Dose 1 APPLIC; Start 06/04/16 at 09:00 Gabapentin (Neurontin) 200 mg TID PO Last administered on 07/03/16 14:29; Admin Dose 200 MG; Start 06/03/16 at 21:00 Levothyroxine Sodium (Synthroid) 100 mcg DAILY@06 PO Last administered on 05:32; Admin Dose 100 MCG; Start 06/04/16 at 06:00 Pantoprazole (Protonix Iv) 40 mg DAILY@06 IV Last administered on 07/03/16 05: 32; Admin Dose 40 MG; Start 06/09/16 at 06:00 Lorazepam (Ativan) 1 mg Q6H PRN IV AGITATION/ANXIETY Last administered on 10:53; Admin Dose 1 MG; Start 06/08/16 at 18:00 Acetaminophen/ Hydrocodone Bitart ([place] (5/325)) 1 tab Q6H PRN PO PAIN Last administered on 06/11/16at 17:38; Admin Dose 1 TAB; Start 06/11/16 at 17:30 Collagenase (Santyl) 1 applic DAILY TOP Last administered on 07/03/16 09:34; Admin Dose 1 APPLIC; Start 06/12/16 at 09:00 Nystatin (Nystatin Susp) 5 ml QID PO Last administered on 07/03/16 14:29; Admin Dose 5 ML; Start 06/18/16 at 17:00 Scopolamine (Transderm-Scop) 1 patch Q72H TRANSDERM Last administered on 20:16; Admin Dose 1 PATCH; Start 06/22/16 at 21:00 Doxycycline Hyclate (Vibramycin) 100 mg BID PO Last administered on 07/02/16 21:12; Admin Dose 100 MG; Start 06/27/16 at 21:00 Fluconazole 100 mg 100 mg DAILY PO Last administered on 07/02/16 09:02; Admin Dose 100 MG; Start 06/28/16 at 09:00 Sodium Chloride (NS) 1,000 ml @ 100 mls/hr Q10H IV Last administered on 14:29; Admin Dose 100 MLS/HR; Start 07/01/16 at 19:00 Lactobacillus Acidoph/ Bulgaricus 1 tab 1 tab BID PO Last administered on 21:11; Admin Dose 1 TAB; Start 07/01/16 at 21:00 Etoposide 105 mg/ Sodium Chloride 500 ml @ 500 mls/hr Q24H IV Last administered on 07/03/16 03:22; Admin Dose 500 MLS/HR; Start 07/02/16 at 04:00 ; Stop 07/06/16 at 04:59 Ifosfamide 2.63 gm/[place] 525 mg/ Sodium Chloride 250 ml @ 125 mls/hr Q24H IV Last administered on 07/03/16 05:37; Admin Dose 125 MLS/HR; Start 07/02/16 at 05:00; Stop 07/06/16 at 06:59 Mesna 525 mg/ Sodium Chloride 105.25 ml @ 200 mls/ hr BID@11,15 IVPB Last administered on 07/03/16 13:17; Admin Dose 200 MLS/HR; Start 07/02/16 at 11:00 ; Stop 07/06/16 at 16:00 Cytarabine/Sodium Chloride (Leena C/NS) 250 ml @ 83.333 mls/ hr Q12H IV Last administered on 07/03/16t 09:24; Admin Dose 83.333 MLS/HR; Start 07/02/16 at 08: 00; Stop 07/03/16 at 22:59 Potassium Chloride (Klor-Con 20) 20 meq BID PO ; Start 07/03/16 at 21:00 GUERLINE SULLIVAN MD Jul 03, 2016 16:07
[2016-07-03] MEDS: ACETAMINOPHEN 325 MG TAB PO PRN (18:37)
[2016-07-03] MEDS: POTASSIUM CHLORIDE (SR) 20 MEQ TAB PO SCH (21:42)
[2016-07-04] VITALS (16 sets, daily range): BP systolic 106–153; BP diastolic 55–81; PULSE 92–121; RESP 17–20
[2016-07-04] MEDS: ALBUTEROL/IPRATROPIUM (NEB) 3 ML AMP HHN SCH ×6 (01:15→21:19)
[2016-07-04] MEDS: ONDANSETRON INJ 8 MG in SOD CHLORIDE 0.9% 50 ML IV PRN (01:24)
[2016-07-04] MEDS: IBUPROFEN 600 MG TAB PO PRN (01:29)
[2016-07-04] MEDS: LEVOTHYROXINE 100 MCG TAB PO SCH (05:52)
[2016-07-04] MEDS: PANTOPRAZOLE 40 MG INJ IV SCH (05:52)
[2016-07-04] MEDS: SOD CHLORIDE 0.9% 1,000 ML IV SCH ×3 (05:52→17:00)
[2016-07-04 07:56] LABS: HEMATOCRIT 26.7 % (37.0-47.0); HEMOGLOBIN 9.2 g/dl (12.0-16.0); MEAN CORPUSCULAR HEMOGLOBIN 29.9 pg (29.0-33.0); MEAN CORPUSCULAR HGB CONC 34.5 g/dl (32.0-37.0); MEAN CORPUSCULAR VOLUME 86.6 fl (82.0-101.0); MEAN PLATELET VOLUME 6.8 fl (7.4-10.4); PLATELET COUNT 218 10^3/UL (140-440); RED BLOOD COUNT 3.09 10^6/ul (4.20-5.40); RED CELL DISTRIBUTION WIDTH 16.7 % (11.5-14.5); UNCORRECTED WBC 2.9 10^3/ul (4.8-10.8); WHITE BLOOD COUNT 2.9 10^3/ul (4.8-10.8)
[2016-07-04 08:14] LABS: CONDITION 1; LH ANALYZER COMMENTS 1
[2016-07-04 08:45] LABS: POTASSIUM 3.1 mmol/L (3.5-5.1)
[2016-07-04 08:47] LABS: CREATININE 0.31 mg/dl (0.44-1.00)
[2016-07-04 08:49] LABS: CALCIUM 8.1 mg/dl (8.4-10.2)
[2016-07-04] MEDS: NYSTATIN SUSP 5 ML CUP PO SCH ×4 (09:10→20:17)
[2016-07-04] MEDS: OCULAR LUBRICANT 3.5 GM OPH OINT BOTH EYES SCH (09:10)
[2016-07-04] MEDS: ARTIFICIAL TEARS 15 ML OPH BOTH EYES SCH ×4 (09:11→20:18)
[2016-07-04] MEDS: GABAPENTIN 100 MG CAP PO SCH ×3 (09:11→20:18)
[2016-07-04] MEDS: POTASSIUM CHLORIDE (SR) 20 MEQ TAB PO SCH ×2 (09:11→20:18)
[2016-07-04] MEDS: FLUCONAZOLE 100 MG TAB PO SCH (09:11)
[2016-07-04] MEDS: DOXYCYCLINE 100 MG TAB PO SCH (09:11)
[2016-07-04] MEDS: ALLOPURINOL 300 MG TAB PO SCH (09:11)
[2016-07-04] MEDS: COLLAGENASE 30 GM TUBE TOP SCH (09:11)
[2016-07-04] MEDS: ACYCLOVIR 400 MG TAB PO SCH ×2 (09:11→20:17)
[2016-07-04] MEDS: LACTOBACILLUS CHEW TAB PO SCH ×2 (09:11→20:17)
--- NOTE | 2016-07-04 10:17 | CONS ---
Date/Time of Note Date/Time of Note DATE: 07/04/16 TIME: 10:14 Assessment/Plan Assessment/Plan Chief Complaint/Hosp Course 56 yo female with massive neck mass causing tracheal compression and airway compromise s/p tracheostomy placement. 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 Pt was given cycle 1A and 1B of R HyperCVAD but had only a partial response to therapy and severe side effects. We have thus changed her chemotherapy regimen. She is now s/p cycle 1A of R-CODOX-M and has now completed her chemotherapy. Most recent CT neck showed resolution of the mass. Pt's counts are now improving and she is no longer transfusion dependant. She has since started Cycle 1B and is receiving R-IVAC Problems: Additional Assessment/Plan # Burkitt's lymphoma - currently day 3 cycle 1B R -IVAC. chemotherapy regimen is as follows Part 2: R-IVAC Rituximab (Rituxan) 375 mg/m2 IV once on day 1 Ifosfamide (Ifex) 1500 mg/m2 IV over 2 hours once per day on days 1 to 5 Etoposide (Vepesid) 60 mg/m2 IV over 1 hour once per day on days 1 to 5 Cytarabine (Cytosar) 2 g/m2 IV over 3 hours Q12H on days 1 & 2 (4 doses total) Mesna (Mesnex) 300 mg/m2 (mixed with Ifosfamide (Ifex)) , then 300mg/m2 IV every four hours x 2, on days 1 to 5 # Supportive Care and prophylactic meds -Started Acyclovir 400mg BID -fluconazole 100mg q day -Neupogen 300mcg q day day after chemotherapy is completed -Zofran ordered prn nausea #Expected Pancytopenia -keep Hg> 8 and platelets > 10. pt to get 1 units of prbc today # Elevated AST and ALT, likely related to methotrexate. 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 all steroids should be discontinued for now unless they are part of the chemotherapy regimen -continue to work with physical therapy. 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 -uric acid level ok Approximately 40 min were spent at patient's bedside and in coordination of her care Consultation Date/Type/Reason Admit Date/Time Jun 02, 2016 at 15:10 Initial Consult Date 06/02/16 Type of Consultation: Hematology Reason for Consultation burkitt's lymphoma Referring Provider: TELLY SOLANO MD 24 HR Interval Summary Free Text/Dictation pt feels very weak and nauseas. received 2 units of prbcs yesterday Exam/Review of Systems Vital Signs Vitals Vital Signs Date Time Temp Pulse Resp B/P Pulse Ox O2 Delivery O2 Flow Rate FiO2 07/04/16 09:25 85 22 96 Aerosol 5.0 28 T Tube 07/04/16 07:28 98.1 133/78 Intake and Output 07/03/16 07/03/16 07/04/16 15:00 23:00 07:00 Intake Total 355.25 ml 1205.25 ml 2224 ml Output Total 1000 ml 1450 ml Balance 355.25 ml 205.25 ml 774 ml Exam Constitutional: alert, oriented Psych: no complaints Head: atraumatic, normocephalic Eyes: nl conjunctiva ENMT: nl external ears & nose Neck: non-tender, other (trach in place), supple Respiratory: clear to auscultation, congested cough, normal air movement Cardiovascular: nl pulses, regular rate and rhythm Gastrointestinal: soft Musculoskeletal: nl extremities to inspection, nl gait and stance Results Result Diagram: 07/04/16 0707 07/04/16 0707 Results 24 hrs Laboratory Tests Test 07/04/16 07:07 Anion Gap 10 Basophils # Pending Basophils % Pending Blood Morphology Comment Blood Urea Nitrogen 6 L Calcium Level 8.1 L Carbon Dioxide Level 28 Chloride Level 107 Creatinine 0.31 L Eosinophils # Pending Eosinophils % Pending Glucose Level 82 Hematocrit 26.7 #L Hemoglobin 9.2 #L Lymphocytes # Pending Lymphocytes % Pending Mean Corpuscular Hemoglobin 29.9 Mean Corpuscular Hemoglobin Concent 34.5 Mean Corpuscular Volume 86.6 Mean Platelet Volume 6.8 L Monocytes # Pending Monocytes % Pending Neutrophils # Pending Neutrophils % Pending Nucleated Red Blood Cells # Pending Nucleated Red Blood Cells % Pending Platelet Count 218 Potassium Level 3.1 L Red Blood Count 3.09 #L Red Cell Distribution Width 16.7 H Sodium Level 142 White Blood Count 2.9 #L Medications Medications Current Medications Acyclovir (Zovirax) 400 mg BID PO Last administered on 07/04/16t 09:11; Admin Dose 400 MG; Start 06/02/16 at 14:30 Diphenhydramine HCl (Benadryl) 25 mg Q4H PRN IV ALLERGIC REACTION Last administered on 06/06/16 20:26; Admin Dose 25 MG; Start 06/02/16 at 18:30 Dexamethasone (Decadron) 10 mg Q4H PRN IV ALLERGIC REACTION; Start 06/02/16 at 18:30 Fluconazole 100 mg 100 mg DAILY PO Last administered on 06/08/16 09:58; Admin Dose 100 MG; Start 06/03/16 at 09:00; Status Future Hold Ondansetron HCl/ Sodium Chloride (Zofran Inj/NS) 54 ml @ 216 mls/hr Q6H PRN IV NAUSEA AND/OR VOMITING Last administered on 07/04/16 01:24; Admin Dose 216 MLS/HR; Start 06/02/16 at 18:30 Ondansetron HCl (Zofran Inj) 4 mg Q6H PRN IV NAUSEA AND/OR VOMITING Last administered on 07/03/16 05:59; Admin Dose 4 MG; Start 06/03/16 at 17:00 Acetaminophen (Tylenol Tab) 650 mg Q6H PRN PO PAIN LEVEL 1-3 OR FEVER Last administered on 07/03/16 18:37; Admin Dose 650 MG; Start 06/03/16 at 17:00 Acetaminophen (Tylenol Supp) 650 mg Q6H PRN [place] PAIN LEVEL 1-3 OR FEVER Last administered on 06/09/16 03:37; Admin Dose 650 MG; Start 06/03/16 at 17:00 Docusate Sodium (Colace) 100 mg Q12H PRN PO CONSTIPATION Last administered on 06/20/16 22:25; Admin Dose 100 MG; Start 06/03/16 at 17:00 Magnesium Hydroxide (Milk Of Mag) 30 ml DAILY PRN PO CONSTIPATION Last administered on 06/20/16 06:13; Admin Dose 30 ML; Start 06/03/16 at 17:00 Bisacodyl (Dulcolax) 5 mg DAILY PRN PO CONSTIPATION; Start 06/03/16 at 17:00 Bisacodyl (Dulcolax Supp) 10 mg DAILY PRN [place] CONSTIPATION Last administered on 06/21/16 05:18; Admin Dose 10 MG; Start 06/03/16 at 17:00 Sodium Biphosphate/ Sodium Phosphate (Fleet Enema) 133 ml DAILY PRN [place] CONSTIPATION; Start 06/03/16 at 17:00 Enoxaparin Sodium (Lovenox) 30 mg DAILY SC Last administered on 06/12/16at 08: 27; Admin Dose 30 MG; Start 06/04/16 at 09:00; Status Future Hold Allopurinol (Zyloprim) 300 mg DAILY PO Last administered on 07/04/16 09:11; Admin Dose 300 MG; Start 06/04/16 at 09:00 Eye Lubricant (Artificial Tears Oph) 2 drop QID BOTH EYES Last administered on 07/04/16 09:11; Admin Dose 2 DROP; Start 06/03/16 at 21:00 Eye Lubricant (Akwa Oint) 1 applic DAILY BOTH EYES Last administered on 09:10; Admin Dose 1 APPLIC; Start 06/04/16 at 09:00 Gabapentin (Neurontin) 200 mg TID PO Last administered on 07/04/16 09:11; Admin Dose 200 MG; Start 06/03/16 at 21:00 Levothyroxine Sodium (Synthroid) 100 mcg DAILY@06 PO Last administered on 05:52; Admin Dose 100 MCG; Start 06/04/16 at 06:00 Pantoprazole (Protonix Iv) 40 mg DAILY@06 IV Last administered on 07/04/16 05: 52; Admin Dose 40 MG; Start 06/09/16 at 06:00 Lorazepam (Ativan) 1 mg Q6H PRN IV AGITATION/ANXIETY Last administered on 10:53; Admin Dose 1 MG; Start 06/08/16 at 18:00 Acetaminophen/ Hydrocodone Bitart ([place] (5/325)) 1 tab Q6H PRN PO PAIN Last administered on 06/11/16at 17:38; Admin Dose 1 TAB; Start 06/11/16 at 17:30 Collagenase (Santyl) 1 applic DAILY TOP Last administered on 07/04/16 09:11; Admin Dose 1 APPLIC; Start 06/12/16 at 09:00 Nystatin (Nystatin Susp) 5 ml QID PO Last administered on 07/04/16 09:10; Admin Dose 5 ML; Start 06/18/16 at 17:00 Scopolamine (Transderm-Scop) 1 patch Q72H TRANSDERM Last administered on 20:16; Admin Dose 1 PATCH; Start 06/22/16 at 21:00 Doxycycline Hyclate (Vibramycin) 100 mg BID PO Last administered on 07/04/16 09:11; Admin Dose 100 MG; Start 06/27/16 at 21:00 Fluconazole 100 mg 100 mg DAILY PO Last administered on 07/04/16 09:11; Admin Dose 100 MG; Start 06/28/16 at 09:00 Sodium Chloride (NS) 1,000 ml @ 100 mls/hr Q10H IV Last administered on 05:52; Admin Dose 100 MLS/HR; Start 07/01/16 at 19:00 Lactobacillus Acidoph/ Bulgaricus 1 tab 1 tab BID PO Last administered on 09:11; Admin Dose 1 TAB; Start 07/01/16 at 21:00 Etoposide 105 mg/ Sodium Chloride 500 ml @ 500 mls/hr Q24H IV Last administered on 07/03/16 03:22; Admin Dose 500 MLS/HR; Start 07/02/16 at 04:00 ; Stop 07/06/16 at 04:59 Ifosfamide 2.63 gm/[place]es[place] 525 mg/ Sodium Chloride 250 ml @ 125 mls/hr Q24H IV Last administered on 07/03/16 05:37; Admin Dose 125 MLS/HR; Start 07/02/16 at 05:00; Stop 07/06/16 at 06:59 Mesna/Sodium Chloride ([place]esna/NS) 105.25 ml @ 200 mls/ hr BID@11,15 IVPB Last administered on 07/03/16 17:16; Admin Dose 200 MLS/HR; Start 07/02/16 at 11:00 ; Stop 07/06/16 at 16:00 Potassium Chloride (Klor-Con 20) 20 meq BID PO Last administered on 07/04/16 09:11; Admin Dose 20 MEQ; Start 07/03/16 at 21:00 Ibuprofen (Motrin) 600 mg TID PRN PO FEVER Last administered on 07/04/16 01:29 ; Admin Dose 600 MG; Start 07/03/16 at 19:30 Filgrastim (Neupogen) 480 mcg DAILY@17 SC ; Start 07/06/16 at 17:00; Stop at 17:01 CHANDRIKA MERLOS M.D. Jul 04, 2016 10:17
[2016-07-04 10:39] LABS: ANISOCYTOSIS 1+; LYMPHOCYTES # 0.1 10^3/ul (0.8-2.9); NEUTROPHIL # 2.7 10^3/ul (1.6-7.5)
[2016-07-04] MEDS ORDERED: [UNRECOGNIZED DRUG - OTHER] IV SCH (12:00)
[2016-07-04] MEDS ORDERED: DIPHENHYDRAMINE IV SCH (12:00)
[2016-07-04] MEDS ORDERED: ONDANSETRON IV SCH (12:00)
[2016-07-04] MEDS ORDERED: DEXAMETHASONE IV SCH (12:00)
--- NOTE | 2016-07-04 13:24 | PN ---
Date/Time of Note Date/Time of Note DATE: 07/04/16 TIME: 13:20 Assessment/Plan VTE Prophylaxis VTE Prophylaxis Intervention: other Lines/Catheters IV Catheter Type (from Nrs): PICC Line Central line still needed: Yes Urinary Cath still in place: No Assessment/Plan Chief Complaint/Hosp Course IMPRESSION: The patient has Burkitt's lymphoma status post tracheostomy, status post thyroid mass, status post pancytopenia, abnormal liver function test. better SEPSIS better gallstone ABN LFT better hypokalemia anemia post chemo PLAN per oncology kcl Problems: Subjective 24 Hr Interval Summary Subjective hx not possible: other (weakness positive) Respiratory: No shortness of breath Cardiovascular: No no complaints Exam/Review of Systems Vital Signs Vitals Vital Signs Date Time Temp Pulse Resp B/P Pulse Ox O2 Delivery O2 Flow Rate FiO2 07/04/16 09:25 85 22 96 Aerosol 5.0 28 T Tube 07/04/16 07:28 98.1 133/78 Intake and Output 07/03/16 07/03/16 07/04/16 15:00 23:00 07:00 Intake Total 355.25 ml 1205.25 ml 2224 ml Output Total 1000 ml 1450 ml Balance 355.25 ml 205.25 ml 774 ml Exam Neck: supple Respiratory: clear to auscultation Cardiovascular: regular rate and rhythm Gastrointestinal: soft Musculoskeletal: nl extremities to inspection Extremities: normal pulses Results Result Diagram: 07/04/16 0707 07/04/16 0707 Results 24 hrs Laboratory Tests Test 07/04/16 07:07 Anion Gap 10 Anisocytosis 1+ Basophils # Basophils % Blood Morphology Comment Blood Urea Nitrogen 6 L Calcium Level 8.1 L Carbon Dioxide Level 28 Chloride Level 107 Creatinine 0.31 L Differential Comment MANUAL DIFF Eosinophils # 0.0 Eosinophils % 1.0 Glucose Level 82 Hematocrit 26.7 #L Hemoglobin 9.2 #L Lymphocytes # 0.1 L Lymphocytes % 2.0 L Mean Corpuscular Hemoglobin 29.9 Mean Corpuscular Hemoglobin Concent 34.5 Mean Corpuscular Volume 86.6 Mean Platelet Volume 6.8 L Monocytes # Monocytes % Neutrophils # 2.7 Neutrophils % 93.0 H Nucleated Red Blood Cells # Nucleated Red Blood Cells % 0.0 Platelet Count 218 Potassium Level 3.1 L Red Blood Count 3.09 #L Red Cell Distribution Width 16.7 H Sodium Level 142 White Blood Count 2.9 #L Medications Medications Current Medications Acyclovir (Zovirax) 400 mg BID PO Last administered on 07/04/16 09:11; Admin Dose 400 MG; Start 06/02/16 at 14:30 Diphenhydramine HCl (Benadryl) 25 mg Q4H PRN IV ALLERGIC REACTION Last administered on 06/06/16 20:26; Admin Dose 25 MG; Start 06/02/16 at 18:30 Dexamethasone (Decadron) 10 mg Q4H PRN IV ALLERGIC REACTION; Start 06/02/16 at 18:30 Fluconazole 100 mg 100 mg DAILY PO Last administered on 06/08/16 09:58; Admin Dose 100 MG; Start 06/03/16 at 09:00; Status Future Hold Ondansetron HCl/ Sodium Chloride (Zofran Inj/NS) 54 ml @ 216 mls/hr Q6H PRN IV NAUSEA AND/OR VOMITING Last administered on 07/04/16 01:24; Admin Dose 216 MLS/HR; Start 06/02/16 at 18:30 Ondansetron HCl (Zofran Inj) 4 mg Q6H PRN IV NAUSEA AND/OR VOMITING Last administered on 07/03/16 05:59; Admin Dose 4 MG; Start 06/03/16 at 17:00 Acetaminophen (Tylenol Tab) 650 mg Q6H PRN PO PAIN LEVEL 1-3 OR FEVER Last administered on 07/03/16 18:37; Admin Dose 650 MG; Start 06/03/16 at 17:00 Acetaminophen (Tylenol Supp) 650 mg Q6H PRN [place] PAIN LEVEL 1-3 OR FEVER Last administered on 06/09/16 03:37; Admin Dose 650 MG; Start 06/03/16 at 17:00 Docusate Sodium (Colace) 100 mg Q12H PRN PO CONSTIPATION Last administered on 06/20/16 22:25; Admin Dose 100 MG; Start 06/03/16 at 17:00 Magnesium Hydroxide (Milk Of Mag) 30 ml DAILY PRN PO CONSTIPATION Last administered on 06/20/16 06:13; Admin Dose 30 ML; Start 06/03/16 at 17:00 Bisacodyl (Dulcolax) 5 mg DAILY PRN PO CONSTIPATION; Start 06/03/16 at 17:00 Bisacodyl (Dulcolax Supp) 10 mg DAILY PRN [place] CONSTIPATION Last administered on 06/21/16at 05:18; Admin Dose 10 MG; Start 06/03/16 at 17:00 Sodium Biphosphate/ Sodium Phosphate (Fleet Enema) 133 ml DAILY PRN [place] CONSTIPATION; Start 06/03/16 at 17:00 Enoxaparin Sodium (Lovenox) 30 mg DAILY SC Last administered on 06/12/16at 08: 27; Admin Dose 30 MG; Start 06/04/16 at 09:00; Status Future Hold Allopurinol (Zyloprim) 300 mg DAILY PO Last administered on 07/04/16 09:11; Admin Dose 300 MG; Start 06/04/16 at 09:00 Eye Lubricant (Artificial Tears Oph) 2 drop QID BOTH EYES Last administered on 07/04/16 13:08; Admin Dose 2 DROP; Start 06/03/16 at 21:00 Eye Lubricant (Akwa Oint) 1 applic DAILY BOTH EYES Last administered on 09:10; Admin Dose 1 APPLIC; Start 06/04/16 at 09:00 Gabapentin (Neurontin) 200 mg TID PO Last administered on 07/04/16 13:13; Admin Dose 200 MG; Start 06/03/16 at 21:00 Levothyroxine Sodium (Synthroid) 100 mcg DAILY@06 PO Last administered on 05:52; Admin Dose 100 MCG; Start 06/04/16 at 06:00 Pantoprazole (Protonix Iv) 40 mg DAILY@06 IV Last administered on 07/04/16 05: 52; Admin Dose 40 MG; Start 06/09/16 at 06:00 Lorazepam (Ativan) 1 mg Q6H PRN IV AGITATION/ANXIETY Last administered on 10:53; Admin Dose 1 MG; Start 06/08/16 at 18:00 Acetaminophen/ Hydrocodone Bitart ([place] (5/325)) 1 tab Q6H PRN PO PAIN Last administered on 06/11/16at 17:38; Admin Dose 1 TAB; Start 06/11/16 at 17:30 Collagenase (Santyl) 1 applic DAILY TOP Last administered on 07/04/16 09:11; Admin Dose 1 APPLIC; Start 06/12/16 at 09:00 Nystatin (Nystatin Susp) 5 ml QID PO Last administered on 07/04/16 13:07; Admin Dose 5 ML; Start 06/18/16 at 17:00 Scopolamine (Transderm-Scop) 1 patch Q72H TRANSDERM Last administered on 20:16; Admin Dose 1 PATCH; Start 06/22/16 at 21:00 Doxycycline Hyclate (Vibramycin) 100 mg BID PO Last administered on 07/04/16 09:11; Admin Dose 100 MG; Start 06/27/16 at 21:00 Fluconazole 100 mg 100 mg DAILY PO Last administered on 07/04/16 09:11; Admin Dose 100 MG; Start 06/28/16 at 09:00 Sodium Chloride (NS) 1,000 ml @ 100 mls/hr Q10H IV Last administered on 05:52; Admin Dose 100 MLS/HR; Start 07/01/16 at 19:00 Lactobacillus Acidoph/ Bulgaricus 1 tab 1 tab BID PO Last administered on 09:11; Admin Dose 1 TAB; Start 07/01/16 at 21:00 Etoposide 105 mg/ Sodium Chloride 500 ml @ 500 mls/hr Q24H IV Last administered on 07/03/16 03:22; Admin Dose 500 MLS/HR; Start 07/02/16 at 04:00 ; Stop 07/06/16 at 04:59 Ifosfamide 2.63 gm/Mesna 525 mg/ Sodium Chloride 250 ml @ 125 mls/hr Q24H IV Last administered on 07/03/16 05:37; Admin Dose 125 MLS/HR; Start 07/02/16 at 05:00; Stop 07/06/16 at 06:59 Mesna/Sodium Chloride (Mesna/NS) 105.25 ml @ 200 mls/ hr BID@11,15 IVPB Last administered on 07/03/16 17:16; Admin Dose 200 MLS/HR; Start 07/02/16 at 11:00 ; Stop 07/06/16 at 16:00 Potassium Chloride (Klor-Con 20) 20 meq BID PO Last administered on 07/04/16 09:11; Admin Dose 20 MEQ; Start 07/03/16 at 21:00 Ibuprofen (Motrin) 600 mg TID PRN PO FEVER Last administered on 07/04/16t 01:29 ; Admin Dose 600 MG; Start 07/03/16 at 19:30 Filgrastim (Neupogen) 480 mcg DAILY@17 SC ; Start 07/06/16 at 17:00; Stop at 17:01 Miscellaneous Information PREMEDICATION,ZOFRAN,DECADRON,BENADRYL,... ONCE XX ; Start 07/04/16 at 11:00; Stop 07/06/16 at 10:59 Ondansetron HCl/ Dexamethasone/ Diphenhydramine HCl/Dextrose (Zofran Inj/ Decadron/Benadryl/ D5W) 59.5 ml @ 119 mls/hr Q24H IV ; Start 07/05/16 at 03:30 ; Stop 07/06/16 at 03:59 GUERLINE SULLIVAN MD Jul 04, 2016 13:24
[2016-07-04] MEDS: SOD CHLORIDE 0.9% IV SCH ×2 (13:53→17:51)
[2016-07-04] MEDS: ETOPOSIDE IV SCH (13:53)
[2016-07-04] MEDS ORDERED: POTASSIUM CHLORIDE 250 ML IVPB ONE (14:00)
[2016-07-04] MEDS ORDERED: VANCOMYCIN IV PER PHARMACY XX SCH (16:00)
--- NOTE | 2016-07-04 16:35 | RADRPT ---
PROCEDURE: XR Chest. CLINICAL INDICATION: Cough and fever. TECHNIQUE: Single frontal view. COMPARISON: 06/24/2016. FINDINGS: There is a left arm PICC line with the tip in the lower superior vena cava. There is mild right bas ilar atelectasis, improved. The lungs are otherwise clear. The tracheostomy tube is in satisfactor y position. The heart size is normal. There is no pleural effusion. There is no pneumothorax. IMPRESSION: 1. No change from 06/24/2016. RPTAT: QQ .Adebayo Mojica MD, MD Date Time Electronically viewed and signed by .Adebayo Mojica MD, MD on 07/04/2016 16:35 .R/
[2016-07-04] MEDS: IFOSFAMIDE IV SCH (17:51)
[2016-07-04] MEDS: MESNA IV SCH (17:51)
[2016-07-04] MEDS ORDERED: VANCOMYCIN 1.25 GM in SOD CHLORIDE 0.9% 250 ML IVPB ONE (18:00)
[2016-07-04] MEDS: SCOPOLAMINE 1.5 MG PATCH TRANSDERM SCH (20:18)
[2016-07-04] MEDS: MESNA IVPB SCH (21:44)
[2016-07-04] MEDS: SOD CHLORIDE 0.9% IVPB SCH (21:44)
[2016-07-04] MEDS: MEROPENEM 500 MG in SOD CHLORIDE 0.9% 100 ML IVPB SCH (22:39)
[2016-07-05] VITALS (8 sets, daily range): BP systolic 112–132; BP diastolic 56–70; PULSE 90–98; RESP 18–20
[2016-07-05] MEDS: ALBUTEROL/IPRATROPIUM (NEB) 3 ML AMP HHN SCH ×6 (00:44→21:08)
[2016-07-05] MEDS: SOD CHLORIDE 0.9% IVPB SCH ×6 (01:32→17:16)
[2016-07-05] MEDS: MESNA IVPB SCH ×6 (01:32→17:16)
[2016-07-05] MEDS: SOD CHLORIDE 0.9% 1,000 ML IV SCH ×4 (02:20→21:50)
[2016-07-05] MEDS: VANCOMYCIN 1 GM in NS 250 ML IVPB SCH ×3 (02:20→18:55)
[2016-07-05] MEDS ORDERED: [UNRECOGNIZED DRUG - OTHER] IV SCH (03:30)
[2016-07-05] MEDS ORDERED: ONDANSETRON IV SCH (03:30)
[2016-07-05] MEDS ORDERED: DEXAMETHASONE IV SCH (03:30)
[2016-07-05] MEDS ORDERED: DIPHENHYDRAMINE IV SCH (03:30)
[2016-07-05] MEDS: PANTOPRAZOLE 40 MG INJ IV SCH (05:27)
[2016-07-05] MEDS: LEVOTHYROXINE 100 MCG TAB PO SCH (05:27)
[2016-07-05] MEDS: MEROPENEM 500 MG in SOD CHLORIDE 0.9% 100 ML IVPB SCH ×3 (05:29→22:08)
--- NOTE | 2016-07-05 06:05 | PN ---
DATE: 07/04/2016 SUBJECTIVE: Patient is awake, very weak, spiking low-grade fevers. She is in no distress, no diarr hea, no dysuria. LABORATORY DATA: WBC 2.9, platelets 218, neutrophils 93, BUN 6, creatinine 0.31. INDWELLINGS: PICC line, trach. PHYSICAL EXAMINATION: GENERAL: This is a fragile, middle-aged woman who is awake, in no distress. HEENT: Head atraumatic, normocephalic. Sclerae anicteric. Buccal mucosa dry. NECK: Supple. Tracheostomy present. CHEST: Rise symmetrical. Breath sounds with bilateral scattered rhonchi. HEART: S1, S2. ABDOMEN: Soft, bowel tones present. EXTREMITIES: Without cyanosis. ASSESSMENT: 1. Low-grade fevers with leukopenia; rule out early sepsis. 2. Stage IIIA Burkitt's lymphoma, in chemotherapy. 3. History of methicillin-resistant Staphylococcus aureus nares colonization with repeat swab negat eduardo. 4. Methicillin-resistant Staphylococcus aureus positive sputum, on doxycycline. 5. Respiratory failure, status post tracheostomy secondary to respiratory compromise by neck mass. 6. Left upper extremity PICC line. 7. Status post staph bacteremia. PLAN: The patient remains hemodynamically stable. She is spiking low-grade fevers. We are going t o start her on broad spectrum antibiotics with vancomycin and Merrem. Repeat blood and urine cultur es. Check her chest x-ray. Continue fluconazole for oral thrush and empiric acyclovir while she is on chemotherapy. Follow oncology recommendations. Dictated By: RODRÍGUEZ ERAZO VIDEO GAME PROGRAMMER for JILLIAN CUEVAS/YUNI Conf#: [id number] DID#: [id number]
[2016-07-05] MEDS: POTASSIUM CHLORIDE (SR) 20 MEQ TAB PO SCH ×2 (09:20→21:00)
[2016-07-05] MEDS: COLLAGENASE 30 GM TUBE TOP SCH (09:20)
[2016-07-05] MEDS: NYSTATIN SUSP 5 ML CUP PO SCH ×4 (09:20→21:10)
[2016-07-05] MEDS: OCULAR LUBRICANT 3.5 GM OPH OINT BOTH EYES SCH (09:20)
[2016-07-05] MEDS: FLUCONAZOLE 100 MG TAB PO SCH (09:21)
[2016-07-05] MEDS: GABAPENTIN 100 MG CAP PO SCH ×3 (09:21→21:10)
[2016-07-05] MEDS: ALLOPURINOL 300 MG TAB PO SCH (09:21)
[2016-07-05] MEDS: IBUPROFEN 600 MG TAB PO PRN (09:21)
[2016-07-05] MEDS: ACYCLOVIR 400 MG TAB PO SCH ×2 (09:21→21:10)
[2016-07-05] MEDS: ARTIFICIAL TEARS 15 ML OPH BOTH EYES SCH ×4 (09:21→21:49)
[2016-07-05] MEDS: LACTOBACILLUS CHEW TAB PO SCH ×2 (09:22→21:10)
--- NOTE | 2016-07-05 11:40 | CONS ---
Date/Time of Note Date/Time of Note DATE: 07/05/16 TIME: 11:38 Assessment/Plan Assessment/Plan Chief Complaint/Hosp Course 56 yo female with massive neck mass causing tracheal compression and airway compromise s/p tracheostomy placement. 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 Pt was given cycle 1A and 1B of R HyperCVAD but had only a partial response to therapy and severe side effects. We have thus changed her chemotherapy regimen. She is now s/p cycle 1A of R-CODOX-M and has now completed her chemotherapy. Most recent CT neck showed resolution of the mass. Pt's counts are now improving and she is no longer transfusion dependant. She has since started Cycle 1B and is receiving R-IVAC Problems: Additional Assessment/Plan # Burkitt's lymphoma - currently day 4 cycle 1B R -IVAC. chemotherapy regimen is as follows Part 2: R-IVAC Rituximab (Rituxan) 375 mg/m2 IV once on day 1 Ifosfamide (Ifex) 1500 mg/m2 IV over 2 hours once per day on days 1 to 5 Etoposide (Vepesid) 60 mg/m2 IV over 1 hour once per day on days 1 to 5 Cytarabine (Cytosar) 2 g/m2 IV over 3 hours Q12H on days 1 & 2 (4 doses total) Mesna (Mesnex) 300 mg/m2 (mixed with Ifosfamide (Ifex)) , then 300mg/m2 IV every four hours x 2, on days 1 to 5 # Neutropenic fevers -appreciate ID recs. continue meropenem and vancomycin -f/u blood and urine cultures # Supportive Care and prophylactic meds -Started Acyclovir 400mg BID -fluconazole 100mg q day -Neupogen 300mcg q day day after chemotherapy is completed -Zofran ordered prn nausea #Expected Pancytopenia -keep Hg> 8 and platelets > 10. pt to get 1 units of prbc today # Elevated AST and ALT, likely related to methotrexate. 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 all steroids should be discontinued for now unless they are part of the chemotherapy regimen -continue to work with physical therapy. 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 -uric acid level ok Approximately 40 min were spent at patient's bedside and in coordination of her care Consultation Date/Type/Reason Admit Date/Time Jun 02, 2016 at 15:10 Initial Consult Date 06/02/16 Type of Consultation: Hematology Reason for Consultation burkitt's lymphoma Referring Provider: TELLY SOLANO MD 24 HR Interval Summary Free Text/Dictation pt spiked a low grade fever yesterday. has since been started on broad spectrum antibiotics, Vancomycin and meropenem. now afebrile. poor appetite Exam/Review of Systems Vital Signs Vitals Vital Signs Date Time Temp Pulse Resp B/P Pulse Ox O2 Delivery O2 Flow Rate FiO2 07/05/16 08:25 84 20 100 Aerosol 28 T Tube 07/05/16 07:00 98.6 132/63 07/05/16 04:55 5.0 Intake and Output 07/04/16 07/04/16 07/05/16 15:00 23:00 07:00 Intake Total 1620 ml Output Total 1800 ml Balance -180 ml Exam Constitutional: alert, oriented Psych: no complaints Head: normocephalic Eyes: EOMI ENMT: nl external ears & nose Neck: other (trach in place) Respiratory: clear to auscultation, normal air movement Cardiovascular: nl pulses, regular rate and rhythm Gastrointestinal: soft Musculoskeletal: nl extremities to inspection Extremities: normal pulses Results Result Diagram: 07/04/16 0707 07/04/16 0707 Medications Medications Current Medications Acyclovir (Zovirax) 400 mg BID PO Last administered on 07/05/16 09:21; Admin Dose 400 MG; Start 06/02/16 at 14:30 Diphenhydramine HCl (Benadryl) 25 mg Q4H PRN IV ALLERGIC REACTION Last administered on 06/06/16at 20:26; Admin Dose 25 MG; Start 06/02/16 at 18:30 Dexamethasone 10 mg 10 mg Q4H PRN IV ALLERGIC REACTION; Start 06/02/16 at 18: 30 Ondansetron HCl/ Sodium Chloride (Zofran Inj/NS) 54 ml @ 216 mls/hr Q6H PRN IV NAUSEA AND/OR VOMITING Last administered on 07/04/16 01:24; Admin Dose 216 MLS/HR; Start 06/02/16 at 18:30 Ondansetron HCl (Zofran Inj) 4 mg Q6H PRN IV NAUSEA AND/OR VOMITING Last administered on 07/03/16 05:59; Admin Dose 4 MG; Start 06/03/16 at 17:00 Acetaminophen (Tylenol Tab) 650 mg Q6H PRN PO PAIN LEVEL 1-3 OR FEVER Last administered on 07/03/16 18:37; Admin Dose 650 MG; Start 06/03/16 at 17:00 Acetaminophen (Tylenol Supp) 650 mg Q6H PRN [place] PAIN LEVEL 1-3 OR FEVER Last administered on 06/09/16 03:37; Admin Dose 650 MG; Start 06/03/16 at 17:00 Docusate Sodium (Colace) 100 mg Q12H PRN PO CONSTIPATION Last administered on 06/20/16 22:25; Admin Dose 100 MG; Start 06/03/16 at 17:00 Magnesium Hydroxide (Milk Of Mag) 30 ml DAILY PRN PO CONSTIPATION Last administered on 06/20/16 06:13; Admin Dose 30 ML; Start 06/03/16 at 17:00 Bisacodyl (Dulcolax) 5 mg DAILY PRN PO CONSTIPATION; Start 06/03/16 at 17:00 Bisacodyl (Dulcolax Supp) 10 mg DAILY PRN [place] CONSTIPATION Last administered on 06/21/16 05:18; Admin Dose 10 MG; Start 06/03/16 at 17:00 Sodium Biphosphate/ Sodium Phosphate (Fleet Enema) 133 ml DAILY PRN [place] CONSTIPATION; Start 06/03/16 at 17:00 Enoxaparin Sodium (Lovenox) 30 mg DAILY SC Last administered on 06/12/16 08: 27; Admin Dose 30 MG; Start 06/04/16 at 09:00; Status Future Hold Allopurinol (Zyloprim) 300 mg DAILY PO Last administered on 07/05/16 09:21; Admin Dose 300 MG; Start 06/04/16 at 09:00 Eye Lubricant (Artificial Tears Oph) 2 drop QID BOTH EYES Last administered on 07/05/16 09:21; Admin Dose 2 DROP; Start 06/03/16 at 21:00 Eye Lubricant (Akwa Oint) 1 applic DAILY BOTH EYES Last administered on 09:20; Admin Dose 1 APPLIC; Start 06/04/16 at 09:00 Gabapentin (Neurontin) 200 mg TID PO Last administered on 07/05/16 09:21; Admin Dose 200 MG; Start 06/03/16 at 21:00 Levothyroxine Sodium (Synthroid) 100 mcg DAILY@06 PO Last administered on 05:27; Admin Dose 100 MCG; Start 06/04/16 at 06:00 Pantoprazole (Protonix Iv) 40 mg DAILY@06 IV Last administered on 07/05/16 05: 27; Admin Dose 40 MG; Start 06/09/16 at 06:00 Lorazepam (Ativan) 1 mg Q6H PRN IV AGITATION/ANXIETY Last administered on 10:53; Admin Dose 1 MG; Start 06/08/16 at 18:00 Acetaminophen/ Hydrocodone Bitart ([place] (5/325)) 1 tab Q6H PRN PO PAIN Last administered on 06/11/16at 17:38; Admin Dose 1 TAB; Start 06/11/16 at 17:30 Collagenase (Santyl) 1 applic DAILY TOP Last administered on 07/05/16 09:20; Admin Dose 1 APPLIC; Start 06/12/16 at 09:00 Nystatin (Nystatin Susp) 5 ml QID PO Last administered on 07/05/16 09:20; Admin Dose 5 ML; Start 06/18/16 at 17:00 Scopolamine (Transderm-Scop) 1 patch Q72H TRANSDERM Last administered on 20:18; Admin Dose 1 PATCH; Start 06/22/16 at 21:00 Fluconazole 100 mg 100 mg DAILY PO Last administered on 07/05/16 09:21; Admin Dose 100 MG; Start 06/28/16 at 09:00 Sodium Chloride (NS) 1,000 ml @ 100 mls/hr Q10H IV Last administered on 05:33; Admin Dose 100 MLS/HR; Start 07/01/16 at 19:00 Lactobacillus Acidoph/ Bulgaricus 1 tab 1 tab BID PO Last administered on 09:22; Admin Dose 1 TAB; Start 07/01/16 at 21:00 Mesna/Sodium Chloride ([place]esna/NS) 105.25 ml @ 200 mls/ hr BID@11,15 IVPB Last administered on 07/05/16 01:32; Admin Dose 200 MLS/HR; Start 07/02/16 at 11:00 ; Stop 07/06/16 at 16:00 Potassium Chloride (Klor-Con 20) 20 meq BID PO Last administered on 07/05/16 09:20; Admin Dose 20 MEQ; Start 07/03/16 at 21:00 Ibuprofen (Motrin) 600 mg TID PRN PO FEVER Last administered on 07/04/16 01:29 ; Admin Dose 600 MG; Start 07/03/16 at 19:30 Filgrastim (Neupogen) 480 mcg DAILY@17 SC ; Start 07/06/16 at 17:00; Stop at 17:01 Miscellaneous Information PREMEDICATION,ZOFRAN,DECADRON,BENADRYL,... ONCE XX ; Start 07/04/16 at 11:00; Stop 07/06/16 at 10:59 Meropenem 500 mg/ Sodium Chloride 100 ml @ 200 mls/hr Q8 IVPB Last administered on 07/05/16 05:29; Admin Dose 200 MLS/HR; Start 07/04/16 at 22:00 Vancomycin HCl 250 ml @ 125 mls/hr Q8H IVPB Last administered on 07/05/16 02: 20; Admin Dose 125 MLS/HR; Start 07/05/16 at 02:00 Etoposide 105 mg/ Sodium Chloride 500 ml @ 500 mls/hr Q24H IV ; Start 07/05/16 at 14:00; Stop 07/06/16 at 14:59 Ifosfamide 2.63 gm/Mesna 525 mg/ Sodium Chloride 250 ml @ 125 mls/hr Q24H IV ; Start 07/05/16 at 18:00; Stop 07/06/16 at 19:59 Ondansetron HCl/ Dexamethasone/ Diphenhydramine HCl/Dextrose (Zofran Inj/ Decadron/Benadryl/ D5W) 59.5 ml @ 119 mls/hr Q24H IV ; Start 07/05/16 at 13:30 ; Stop 07/06/16 at 13:59 CHANDRIKA MERLOS M.D. Jul 05, 2016 11:40
--- NOTE | 2016-07-05 13:06 | CONS ---
Date/Time of Note Date/Time of Note DATE: 07/05/16 TIME: 12:54 Assessment/Plan Assessment/Plan Chief Complaint/Hosp Course ID PROGRESS NOTE CURRENT ABX: Vanco IV, Merrem, Acyclovir 24H INTERVAL SUMMARY * Awake, alert, eating lunch with Trach-> cool aerosol, calm, VSS, NAD * ABX restarted yesterday for 48+H of low grade temps 100.8 range, afebrile today, Urine culture (-) preliminary * [facility]: 07/04/16 Rcvd: 07/04/16 Source: BAGGED URI Sp Descrip: Procedure Result Microbiology URINE CULTURE Preliminary NO GROWTH AFTER 24 HOURS PHYSICAL EXAMINATION: GENERAL: 56 yo F, trach present, VSS, NAD HEENT: Unremarkable NECK: (+)Trach present LUNGS: Chest rise symmetrical, without dyspnea on observation ABDOMEN: Soft EXTREMITIES: Warm, LUEXT PICC site without evidence infection, no edema, no drainage ID ASSESSMENT: 56 yo F w/neck mass 2nd/2 STAGE IIA Burkitts Lymphoma, s/p tracheostomy placement for compressed airway currently in chemo tx admit with: 1. SIRS w/low grade temperatures, s/p sepsis with high fevers likely secondary to neutropenia. 2. Respiratory failure, status post tracheostomy secondary to a neck mass causing tracheal compression and airway compromise, remains on trach collar. 3. Possible aspiration pneumonia=> sputum cx + MRSA. 4. Leukocytosis=> s/p Neupogen 5. s/p Coagulase-negative Staphylococcus bacteremia cw contaminant. 6. Oral thrush=> oral Nystatin 7. Transaminitis=> Per GI NOTE: elevated LFT likely due to methotrexate. * ABNORMAL LIVER US: Cholelithiasis with 3 cm calcified gallstone within the neck of gallbladder versus liver calcification adjacent to the neck of gallbladder 8. Situational anxiety related to acute medical Dx and trach -> Stable (+)MRSA Nares Screen->Bactroban => Repeat MRSA (-) INVASIVES: PICC LUEXT, FC, Trach CURRENT ABX: Vanco IV, Merrem, Acyclovir s/p PO Bactrim, Diflucan, Doxy ID RECOMMENDATIONS/PLAN: Continue current ABX . . Problems: Consultation Date/Type/Reason Admit Date/Time Jun 02, 2016 at 15:10 Initial Consult Date 06/02/16 Type of Consultation: ID Referring Provider: TELLY SOLANO MD Exam/Review of Systems Vital Signs Vitals Vital Signs Date Time Temp Pulse Resp B/P Pulse Ox O2 Delivery O2 Flow Rate FiO2 07/05/16 08:25 84 20 100 Aerosol 28 T Tube 07/05/16 07:00 98.6 132/63 07/05/16 04:55 5.0 Intake and Output 07/04/16 07/04/16 07/05/16 15:00 23:00 07:00 Intake Total 1620 ml Output Total 1800 ml Balance -180 ml Results Result Diagram: 07/04/16 0707 07/04/16 0707 Medications Medications Current Medications Acyclovir (Zovirax) 400 mg BID PO Last administered on 07/05/16t 09:21; Admin Dose 400 MG; Start 06/02/16 at 14:30 Diphenhydramine HCl (Benadryl) 25 mg Q4H PRN IV ALLERGIC REACTION Last administered on 06/06/16at 20:26; Admin Dose 25 MG; Start 06/02/16 at 18:30 Dexamethasone 10 mg 10 mg Q4H PRN IV ALLERGIC REACTION; Start 06/02/16 at 18: 30 Ondansetron HCl/ Sodium Chloride (Zofran Inj/NS) 54 ml @ 216 mls/hr Q6H PRN IV NAUSEA AND/OR VOMITING Last administered on 07/04/16 01:24; Admin Dose 216 MLS/HR; Start 06/02/16 at 18:30 Ondansetron HCl (Zofran Inj) 4 mg Q6H PRN IV NAUSEA AND/OR VOMITING Last administered on 07/03/16 05:59; Admin Dose 4 MG; Start 06/03/16 at 17:00 Acetaminophen (Tylenol Tab) 650 mg Q6H PRN PO PAIN LEVEL 1-3 OR FEVER Last administered on 07/03/16 18:37; Admin Dose 650 MG; Start 06/03/16 at 17:00 Acetaminophen (Tylenol Supp) 650 mg Q6H PRN [place] PAIN LEVEL 1-3 OR FEVER Last administered on 06/09/16 03:37; Admin Dose 650 MG; Start 06/03/16 at 17:00 Docusate Sodium (Colace) 100 mg Q12H PRN PO CONSTIPATION Last administered on 06/20/16 22:25; Admin Dose 100 MG; Start 06/03/16 at 17:00 Magnesium Hydroxide (Milk Of Mag) 30 ml DAILY PRN PO CONSTIPATION Last administered on 06/20/16 06:13; Admin Dose 30 ML; Start 06/03/16 at 17:00 Bisacodyl (Dulcolax) 5 mg DAILY PRN PO CONSTIPATION; Start 06/03/16 at 17:00 Bisacodyl (Dulcolax Supp) 10 mg DAILY PRN [place] CONSTIPATION Last administered on 06/21/16 05:18; Admin Dose 10 MG; Start 06/03/16 at 17:00 Sodium Biphosphate/ Sodium Phosphate (Fleet Enema) 133 ml DAILY PRN [place] CONSTIPATION; Start 06/03/16 at 17:00 Enoxaparin Sodium (Lovenox) 30 mg DAILY SC Last administered on 06/12/16 08: 27; Admin Dose 30 MG; Start 06/04/16 at 09:00; Status Future Hold Allopurinol (Zyloprim) 300 mg DAILY PO Last administered on 07/05/16 09:21; Admin Dose 300 MG; Start 06/04/16 at 09:00 Eye Lubricant (Artificial Tears Oph) 2 drop QID BOTH EYES Last administered on 07/05/16 12:38; Admin Dose 2 DROP; Start 06/03/16 at 21:00 Eye Lubricant (Akwa Oint) 1 applic DAILY BOTH EYES Last administered on 09:20; Admin Dose 1 APPLIC; Start 06/04/16 at 09:00 Gabapentin (Neurontin) 200 mg TID PO Last administered on 07/05/16 12:45; Admin Dose 200 MG; Start 06/03/16 at 21:00 Levothyroxine Sodium (Synthroid) 100 mcg DAILY@06 PO Last administered on 05:27; Admin Dose 100 MCG; Start 06/04/16 at 06:00 Pantoprazole (Protonix Iv) 40 mg DAILY@06 IV Last administered on 07/05/16 05: 27; Admin Dose 40 MG; Start 06/09/16 at 06:00 Lorazepam (Ativan) 1 mg Q6H PRN IV AGITATION/ANXIETY Last administered on 10:53; Admin Dose 1 MG; Start 06/08/16 at 18:00 Acetaminophen/ Hydrocodone Bitart ([place] (5/325)) 1 tab Q6H PRN PO PAIN Last administered on 06/11/16at 17:38; Admin Dose 1 TAB; Start 06/11/16 at 17:30 Collagenase (Santyl) 1 applic DAILY TOP Last administered on 07/05/16 09:20; Admin Dose 1 APPLIC; Start 06/12/16 at 09:00 Nystatin (Nystatin Susp) 5 ml QID PO Last administered on 07/05/16 12:45; Admin Dose 5 ML; Start 06/18/16 at 17:00 Scopolamine (Transderm-Scop) 1 patch Q72H TRANSDERM Last administered on 20:18; Admin Dose 1 PATCH; Start 06/22/16 at 21:00 Fluconazole 100 mg 100 mg DAILY PO Last administered on 07/05/16 09:21; Admin Dose 100 MG; Start 06/28/16 at 09:00 Sodium Chloride (NS) 1,000 ml @ 100 mls/hr Q10H IV Last administered on 12:38; Admin Dose 100 MLS/HR; Start 07/01/16 at 19:00 Lactobacillus Acidoph/ Bulgaricus 1 tab 1 tab BID PO Last administered on 09:22; Admin Dose 1 TAB; Start 07/01/16 at 21:00 Mesna/Sodium Chloride (Mesna/NS) 105.25 ml @ 200 mls/ hr BID@11,15 IVPB Last administered on 07/05/16 12:44; Admin Dose 200 MLS/HR; Start 07/02/16 at 11:00 ; Stop 07/06/16 at 16:00 Potassium Chloride (Klor-Con 20) 20 meq BID PO Last administered on 07/05/16 09:20; Admin Dose 20 MEQ; Start 07/03/16 at 21:00 Ibuprofen (Motrin) 600 mg TID PRN PO FEVER Last administered on 07/04/16 01:29 ; Admin Dose 600 MG; Start 07/03/16 at 19:30 Filgrastim (Neupogen) 480 mcg DAILY@17 SC ; Start 07/06/16 at 17:00; Stop at 17:01 Miscellaneous Information PREMEDICATION,ZOFRAN,DECADRON,BENADRYL,... ONCE XX ; Start 07/04/16 at 11:00; Stop 07/06/16 at 10:59 Meropenem 500 mg/ Sodium Chloride 100 ml @ 200 mls/hr Q8 IVPB Last administered on 07/05/16 05:29; Admin Dose 200 MLS/HR; Start 07/04/16 at 22:00 Vancomycin HCl 250 ml @ 125 mls/hr Q8H IVPB Last administered on 07/05/16 11: 50; Admin Dose 125 MLS/HR; Start 07/05/16 at 02:00 Etoposide 105 mg/ Sodium Chloride 500 ml @ 500 mls/hr Q24H IV ; Start 07/05/16 at 14:00; Stop 07/06/16 at 14:59 Ifosfamide 2.63 gm/Mesna 525 mg/ Sodium Chloride 250 ml @ 125 mls/hr Q24H IV ; Start 07/05/16 at 18:00; Stop 07/06/16 at 19:59 Ondansetron HCl/ Dexamethasone/ Diphenhydramine HCl/Dextrose (Zofran Inj/ Decadron/Benadryl/ D5W) 59.5 ml @ 119 mls/hr Q24H IV ; Start 07/05/16 at 13:30 ; Stop 07/06/16 at 13:59 BRENT AUSTIN NP Jul 05, 2016 13:05
[2016-07-05] MEDS: DIPHENHYDRAMINE IV SCH (15:01)
[2016-07-05] MEDS: DEXAMETHASONE IV SCH (15:01)
[2016-07-05] MEDS: ONDANSETRON IV SCH (15:01)
[2016-07-05] MEDS: [UNRECOGNIZED DRUG - OTHER] IV SCH (15:01)
[2016-07-05] MEDS: SOD CHLORIDE 0.9% IV SCH ×2 (15:53→21:47)
[2016-07-05] MEDS: ETOPOSIDE IV SCH (15:53)
[2016-07-05 18:29] LABS: ADD UMIC YES; URINE BILIRUBIN (Dip) NEGATIVE (NEGATIVE); URINE BLOOD (Dip) TRACE (NEGATIVE); URINE COLOR LT. YELLOW (YELLOW); URINE GLUCOSE (Dip) NEGATIVE (NEGATIVE); URINE KETONES (Dip) TRACE (NEGATIVE); URINE LEUKOCYTE ESTERASE (Dip) NEGATIVE (NEGATIVE); URINE NITRITE (Dip) NEGATIVE (NEGATIVE); URINE TOTAL PROTEIN (Dip) NEGATIVE (NEGATIVE); URINE UROBILINOGEN (Dip) 0.2 E.U./dL (0.1-1.0)
[2016-07-05 18:44] LABS: SQUAMOUS EPITHELIAL CELL,UR RARE; URINE RBCS 0-2 /HPF (0)
--- NOTE | 2016-07-05 18:46 | PN ---
Date/Time of Note Date/Time of Note DATE: 07/05/16 TIME: 18:44 Assessment/Plan VTE Prophylaxis VTE Prophylaxis Intervention: other Lines/Catheters IV Catheter Type (from Nrs): PICC Line Central line still needed: Yes Urinary Cath still in place: No Assessment/Plan Chief Complaint/Hosp Course IMPRESSION: The patient has Burkitt's lymphoma status post tracheostomy, status post thyroid mass, status post pancytopenia, abnormal liver function test. better SEPSIS better gallstone ABN LFT better hypokalemia anemia post chemo PLAN per oncology kcl chemo Problems: Subjective 24 Hr Interval Summary Subjective hx not possible: pt critical, other (weakness) Exam/Review of Systems Vital Signs Vitals Vital Signs Date Time Temp Pulse Resp B/P Pulse Ox O2 Delivery O2 Flow Rate FiO2 07/05/16 16:56 82 20 97 Aerosol 28 T Tube 07/05/16 07:00 98.6 132/63 07/05/16 04:55 5.0 Intake and Output 07/04/16 07/04/16 07/05/16 15:00 23:00 07:00 Intake Total 1620 ml Output Total 1800 ml Balance -180 ml Exam Respiratory: clear to auscultation Cardiovascular: regular rate and rhythm Gastrointestinal: soft Musculoskeletal: nl extremities to inspection Extremities: normal pulses Results Result Diagram: 07/04/16 0707 07/04/16 0707 Results 24 hrs Laboratory Tests Test 07/05/16 17:35 Urine Bilirubin NEGATIVE Urine Clarity CLEAR Urine Color LT. YELLOW Urine Glucose NEGATIVE Urine Hemoglobin TRACE Urine Ketones TRACE H Urine Leukocyte Esterase NEGATIVE Urine Microscopic RBC Pending Urine Microscopic WBC Pending Urine Nitrite NEGATIVE Urine Specific [place] 1.010 Urine Total Protein NEGATIVE Urine Urobilinogen 0.2 E.U./dL Urine pH 7.5 Medications Medications Current Medications Acyclovir (Zovirax) 400 mg BID PO Last administered on 07/05/16t 09:21; Admin Dose 400 MG; Start 06/02/16 at 14:30 Diphenhydramine HCl (Benadryl) 25 mg Q4H PRN IV ALLERGIC REACTION Last administered on 06/06/16at 20:26; Admin Dose 25 MG; Start 06/02/16 at 18:30 Dexamethasone 10 mg 10 mg Q4H PRN IV ALLERGIC REACTION; Start 06/02/16 at 18: 30 Ondansetron HCl/ Sodium Chloride (Zofran Inj/NS) 54 ml @ 216 mls/hr Q6H PRN IV NAUSEA AND/OR VOMITING Last administered on 07/04/16 01:24; Admin Dose 216 MLS/HR; Start 06/02/16 at 18:30 Ondansetron HCl (Zofran Inj) 4 mg Q6H PRN IV NAUSEA AND/OR VOMITING Last administered on 07/03/16 05:59; Admin Dose 4 MG; Start 06/03/16 at 17:00 Acetaminophen (Tylenol Tab) 650 mg Q6H PRN PO PAIN LEVEL 1-3 OR FEVER Last administered on 07/03/16 18:37; Admin Dose 650 MG; Start 06/03/16 at 17:00 Acetaminophen (Tylenol Supp) 650 mg Q6H PRN [place] PAIN LEVEL 1-3 OR FEVER Last administered on 06/09/16 03:37; Admin Dose 650 MG; Start 06/03/16 at 17:00 Docusate Sodium (Colace) 100 mg Q12H PRN PO CONSTIPATION Last administered on 06/20/16 22:25; Admin Dose 100 MG; Start 06/03/16 at 17:00 Magnesium Hydroxide (Milk Of Mag) 30 ml DAILY PRN PO CONSTIPATION Last administered on 06/20/16 06:13; Admin Dose 30 ML; Start 06/03/16 at 17:00 Bisacodyl (Dulcolax) 5 mg DAILY PRN PO CONSTIPATION; Start 06/03/16 at 17:00 Bisacodyl (Dulcolax Supp) 10 mg DAILY PRN [place] CONSTIPATION Last administered on 06/21/16 05:18; Admin Dose 10 MG; Start 06/03/16 at 17:00 Sodium Biphosphate/ Sodium Phosphate (Fleet Enema) 133 ml DAILY PRN [place] CONSTIPATION; Start 06/03/16 at 17:00 Enoxaparin Sodium (Lovenox) 30 mg DAILY SC Last administered on 06/12/16 08: 27; Admin Dose 30 MG; Start 06/04/16 at 09:00; Status Future Hold Allopurinol (Zyloprim) 300 mg DAILY PO Last administered on 07/05/16 09:21; Admin Dose 300 MG; Start 06/04/16 at 09:00 Eye Lubricant (Artificial Tears Oph) 2 drop QID BOTH EYES Last administered on 07/05/16 17:16; Admin Dose 2 DROP; Start 06/03/16 at 21:00 Eye Lubricant (Akwa Oint) 1 applic DAILY BOTH EYES Last administered on 09:20; Admin Dose 1 APPLIC; Start 06/04/16 at 09:00 Gabapentin (Neurontin) 200 mg TID PO Last administered on 07/05/16 12:45; Admin Dose 200 MG; Start 06/03/16 at 21:00 Levothyroxine Sodium (Synthroid) 100 mcg DAILY@06 PO Last administered on 05:27; Admin Dose 100 MCG; Start 06/04/16 at 06:00 Pantoprazole (Protonix Iv) 40 mg DAILY@06 IV Last administered on 07/05/16 05: 27; Admin Dose 40 MG; Start 06/09/16 at 06:00 Lorazepam (Ativan) 1 mg Q6H PRN IV AGITATION/ANXIETY Last administered on 10:53; Admin Dose 1 MG; Start 06/08/16 at 18:00 Acetaminophen/ Hydrocodone Bitart ([place] (5/325)) 1 tab Q6H PRN PO PAIN Last administered on 06/11/16at 17:38; Admin Dose 1 TAB; Start 06/11/16 at 17:30 Collagenase (Santyl) 1 applic DAILY TOP Last administered on 07/05/16 09:20; Admin Dose 1 APPLIC; Start 06/12/16 at 09:00 Nystatin (Nystatin Susp) 5 ml QID PO Last administered on 07/05/16 12:45; Admin Dose 5 ML; Start 06/18/16 at 17:00 Scopolamine (Transderm-Scop) 1 patch Q72H TRANSDERM Last administered on 20:18; Admin Dose 1 PATCH; Start 06/22/16 at 21:00 Fluconazole 100 mg 100 mg DAILY PO Last administered on 07/05/16 09:21; Admin Dose 100 MG; Start 06/28/16 at 09:00 Sodium Chloride (NS) 1,000 ml @ 100 mls/hr Q10H IV Last administered on 12:38; Admin Dose 100 MLS/HR; Start 07/01/16 at 19:00 Lactobacillus Acidoph/ Bulgaricus 1 tab 1 tab BID PO Last administered on 09:22; Admin Dose 1 TAB; Start 07/01/16 at 21:00 [place]/Sodium Chloride (Mesna/NS) 105.25 ml @ 200 mls/ hr BID@11,15 IVPB Last administered on 07/05/16 17:16; Admin Dose 200 MLS/HR; Start 07/02/16 at 11:00 ; Stop 07/06/16 at 16:00 Potassium Chloride (Klor-Con 20) 20 meq BID PO Last administered on 07/05/16 09:20; Admin Dose 20 MEQ; Start 07/03/16 at 21:00 Ibuprofen (Motrin) 600 mg TID PRN PO FEVER Last administered on 07/04/16 01:29 ; Admin Dose 600 MG; Start 07/03/16 at 19:30 Filgrastim (Neupogen) 480 mcg DAILY@17 SC ; Start 07/06/16 at 17:00; Stop at 17:01 Miscellaneous Information PREMEDICATION,ZOFRAN,DECADRON,BENADRYL,... ONCE XX ; Start 07/04/16 at 11:00; Stop 07/06/16 at 10:59 Meropenem 500 mg/ Sodium Chloride 100 ml @ 200 mls/hr Q8 IVPB Last administered on 07/05/16 15:02; Admin Dose 200 MLS/HR; Start 07/04/16 at 22:00 Vancomycin HCl 250 ml @ 125 mls/hr Q8H IVPB Last administered on 07/05/16 11: 50; Admin Dose 125 MLS/HR; Start 07/05/16 at 02:00 Etoposide 105 mg/ Sodium Chloride 500 ml @ 500 mls/hr Q24H IV Last administered on 07/05/16 15:53; Admin Dose 500 MLS/HR; Start 07/05/16 at 14:00 ; Stop 07/06/16 at 14:59 Ifosfamide 2.63 gm/Mesna 525 mg/ Sodium Chloride 250 ml @ 125 mls/hr Q24H IV ; Start 07/05/16 at 18:00; Stop 07/06/16 at 19:59 Ondansetron HCl/ Dexamethasone/ Diphenhydramine HCl/Dextrose (Zofran Inj/ Decadron/Benadryl/ D5W) 59.5 ml @ 119 mls/hr Q24H IV Last administered on 07/05t 15:01; Admin Dose 119 MLS/HR; Start 07/05/16 at 13:30; Stop 07/06/16 at 13 :59 GUERLINE SULLIVAN MD Jul 05, 2016 18:45
[2016-07-05] MEDS: ONDANSETRON 4 MG INJ IV PRN (19:51)
[2016-07-05] MEDS: MESNA IV SCH (21:47)
[2016-07-05] MEDS: IFOSFAMIDE IV SCH (21:47)
[2016-07-05] MEDS: POTASSIUM CHLORIDE 250 ML IVPB SCH (22:41)
[2016-07-06 00:15] VITALS: BP 124/77; PULSE 76; RESP 18
[2016-07-06] MEDS: ALBUTEROL/IPRATROPIUM (NEB) 3 ML AMP HHN SCH ×6 (00:58→20:29)
[2016-07-06 01:15] VITALS: BP 120/68; PULSE 79; RESP 17
[2016-07-06] MEDS: VANCOMYCIN 1 GM in NS 250 ML IVPB SCH ×3 (02:33→18:06)
[2016-07-06] MEDS: POTASSIUM CHLORIDE 250 ML IVPB SCH (02:34)
[2016-07-06] MEDS: LORAZEPAM 2 MG INJ IV PRN (02:48)
[2016-07-06] MEDS: LEVOTHYROXINE 100 MCG TAB PO SCH (05:59)
[2016-07-06] MEDS: PANTOPRAZOLE 40 MG INJ IV SCH (05:59)
[2016-07-06] MEDS: MEROPENEM 500 MG in SOD CHLORIDE 0.9% 100 ML IVPB SCH ×4 (05:59→21:39)
[2016-07-06 08:15] VITALS: BP 128/81; RESP 18
[2016-07-06] MEDS: ALLOPURINOL 300 MG TAB PO SCH (08:41)
[2016-07-06] MEDS: ACYCLOVIR 400 MG TAB PO SCH ×2 (08:41→21:41)
[2016-07-06] MEDS: NYSTATIN SUSP 5 ML CUP PO SCH ×4 (08:41→21:41)
[2016-07-06] MEDS: GABAPENTIN 100 MG CAP PO SCH ×3 (08:41→21:41)
[2016-07-06] MEDS: LACTOBACILLUS CHEW TAB PO SCH ×2 (08:41→21:41)
[2016-07-06] MEDS: FLUCONAZOLE 100 MG TAB PO SCH (08:41)
[2016-07-06] MEDS: POTASSIUM CHLORIDE (SR) 20 MEQ TAB PO SCH ×2 (08:41→21:41)
[2016-07-06] MEDS: COLLAGENASE 30 GM TUBE TOP SCH (08:42)
[2016-07-06] MEDS: ARTIFICIAL TEARS 15 ML OPH BOTH EYES SCH ×4 (08:42→21:41)
[2016-07-06] MEDS: SOD CHLORIDE 0.9% 1,000 ML IV SCH ×2 (09:00→19:00)
[2016-07-06] MEDS: OCULAR LUBRICANT 3.5 GM OPH OINT BOTH EYES SCH ×2 (09:00→13:33)
--- NOTE | 2016-07-06 09:18 | CONS ---
Date/Time of Note Date/Time of Note DATE: 07/06/16 TIME: 09:16 Assessment/Plan Assessment/Plan Chief Complaint/Hosp Course 56 yo female with massive neck mass causing tracheal compression and airway compromise s/p tracheostomy placement. 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 Pt was given cycle 1A and 1B of R HyperCVAD but had only a partial response to therapy and severe side effects. We have thus changed her chemotherapy regimen. She is now s/p cycle 1A of R-CODOX-M and has now completed her chemotherapy. Most recent CT neck showed resolution of the mass. Pt's counts are now improving and she is no longer transfusion dependant. She has since started Cycle 1B and is receiving R-IVAC Problems: Additional Assessment/Plan # Burkitt's lymphoma - currently day 5 cycle 1B R -IVAC. chemotherapy regimen is as follows Part 2: R-IVAC Rituximab (Rituxan) 375 mg/m2 IV once on day 1 Ifosfamide (Ifex) 1500 mg/m2 IV over 2 hours once per day on days 1 to 5 Etoposide (Vepesid) 60 mg/m2 IV over 1 hour once per day on days 1 to 5 Cytarabine (Cytosar) 2 g/m2 IV over 3 hours Q12H on days 1 & 2 (4 doses total) Mesna (Mesnex) 300 mg/m2 (mixed with Ifosfamide (Ifex)) , then 300mg/m2 IV every four hours x 2, on days 1 to 5 # Neutropenic fevers -appreciate ID recs. continue meropenem and vancomycin -f/u blood and urine cultures # Supportive Care and prophylactic meds -Started Acyclovir 400mg BID -fluconazole 100mg q day -Neupogen 300mcg q day day after chemotherapy is completed -Zofran ordered prn nausea #Expected Pancytopenia -keep Hg> 8 and platelets > 10. pt to get 1 units of prbc today # Elevated AST and ALT, likely related to methotrexate. 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 all steroids should be discontinued for now unless they are part of the chemotherapy regimen -continue to work with physical therapy. 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 -uric acid level ok Approximately 40 min were spent at patient's bedside and in coordination of her care Consultation Date/Type/Reason Admit Date/Time Jun 02, 2016 at 15:10 Initial Consult Date 06/02/16 Type of Consultation: Hematology Reason for Consultation burkitt's lymphoma Referring Provider: TELLY SOLANO MD 24 HR Interval Summary Free Text/Dictation no acute overnight events. pt tolerating chemotherapy well Exam/Review of Systems Vital Signs Vitals Vital Signs Date Time Temp Pulse Resp B/P Pulse Ox O2 Delivery O2 Flow Rate FiO2 07/06/16 08:15 97.4 77 18 128/81 99 07/06/16 05:20 5.0 28 07/06/16 05:16 Aerosol T Tube Intake and Output 07/05/16 07/05/16 07/06/16 15:00 23:00 07:00 Intake Total 1614.75 ml 1220 ml Output Total 2100 ml 1600 ml Balance -485.25 ml -380 ml Exam Constitutional: alert, oriented Psych: no complaints Head: normocephalic Eyes: nl conjunctiva ENMT: nl external ears & nose Neck: other (trach in place) Respiratory: clear to auscultation, normal air movement Cardiovascular: nl pulses, regular rate and rhythm Gastrointestinal: soft Genitourinary - Female: nl adnexae, nl external genitalia Musculoskeletal: nl extremities to inspection Extremities: normal pulses Neurological: LEAD IOS DEVELOPER II-XII intact Results Result Diagram: 07/04/16 0707 07/04/16 0707 Results 24 hrs Laboratory Tests Test 07/05/16 17:00 07/05/16 17:35 Vancomycin Level Trough 19.1 Urine Bilirubin NEGATIVE Urine Clarity CLEAR Urine Color LT. YELLOW Urine Glucose NEGATIVE Urine Hemoglobin TRACE Urine Ketones TRACE H Urine Leukocyte Esterase NEGATIVE Urine Microscopic RBC 0-2 Urine Microscopic WBC NONE SEEN Urine Nitrite NEGATIVE Urine Specific [place] 1.010 Urine Squamous Epithelial Cells RARE Urine Total Protein NEGATIVE Urine Urobilinogen 0.2 E.U./dL Urine pH 7.5 Medications Medications Current Medications Acyclovir (Zovirax) 400 mg BID PO Last administered on 07/06/16t 08:41; Admin Dose 400 MG; Start 06/02/16 at 14:30 Diphenhydramine HCl (Benadryl) 25 mg Q4H PRN IV ALLERGIC REACTION Last administered on 06/06/16at 20:26; Admin Dose 25 MG; Start 06/02/16 at 18:30 Dexamethasone 10 mg 10 mg Q4H PRN IV ALLERGIC REACTION; Start 06/02/16 at 18: 30 Ondansetron HCl/ Sodium Chloride (Zofran Inj/NS) 54 ml @ 216 mls/hr Q6H PRN IV NAUSEA AND/OR VOMITING Last administered on 07/04/16 01:24; Admin Dose 216 MLS/HR; Start 06/02/16 at 18:30 Ondansetron HCl (Zofran Inj) 4 mg Q6H PRN IV NAUSEA AND/OR VOMITING Last administered on 07/05/16 19:51; Admin Dose 4 MG; Start 06/03/16 at 17:00 Acetaminophen (Tylenol Tab) 650 mg Q6H PRN PO PAIN LEVEL 1-3 OR FEVER Last administered on 07/03/16 18:37; Admin Dose 650 MG; Start 06/03/16 at 17:00 Acetaminophen (Tylenol Supp) 650 mg Q6H PRN [place] PAIN LEVEL 1-3 OR FEVER Last administered on 06/09/16 03:37; Admin Dose 650 MG; Start 06/03/16 at 17:00 Docusate Sodium (Colace) 100 mg Q12H PRN PO CONSTIPATION Last administered on 06/20/16 22:25; Admin Dose 100 MG; Start 06/03/16 at 17:00 Magnesium Hydroxide (Milk Of Mag) 30 ml DAILY PRN PO CONSTIPATION Last administered on 06/20/16 06:13; Admin Dose 30 ML; Start 06/03/16 at 17:00 Bisacodyl (Dulcolax) 5 mg DAILY PRN PO CONSTIPATION; Start 06/03/16 at 17:00 Bisacodyl (Dulcolax Supp) 10 mg DAILY PRN [place] CONSTIPATION Last administered on 06/21/16 05:18; Admin Dose 10 MG; Start 06/03/16 at 17:00 Sodium Biphosphate/ Sodium Phosphate (Fleet Enema) 133 ml DAILY PRN [place] CONSTIPATION; Start 06/03/16 at 17:00 Enoxaparin Sodium (Lovenox) 30 mg DAILY SC Last administered on 06/12/16 08: 27; Admin Dose 30 MG; Start 06/04/16 at 09:00; Status Future Hold Allopurinol (Zyloprim) 300 mg DAILY PO Last administered on 07/06/16 08:41; Admin Dose 300 MG; Start 06/04/16 at 09:00 Eye Lubricant (Artificial Tears Oph) 2 drop QID BOTH EYES Last administered on 07/06/16 08:42; Admin Dose 2 DROP; Start 06/03/16 at 21:00 Eye Lubricant (Akwa Oint) 1 applic DAILY BOTH EYES Last administered on 09:20; Admin Dose 1 APPLIC; Start 06/04/16 at 09:00 Gabapentin (Neurontin) 200 mg TID PO Last administered on 07/06/16 08:41; Admin Dose 200 MG; Start 06/03/16 at 21:00 Levothyroxine Sodium (Synthroid) 100 mcg DAILY@06 PO Last administered on 05:59; Admin Dose 100 MCG; Start 06/04/16 at 06:00 Pantoprazole (Protonix Iv) 40 mg DAILY@06 IV Last administered on 07/06/16 05: 59; Admin Dose 40 MG; Start 06/09/16 at 06:00 Lorazepam (Ativan) 1 mg Q6H PRN IV AGITATION/ANXIETY Last administered on 02:48; Admin Dose 1 MG; Start 06/08/16 at 18:00 Acetaminophen/ Hydrocodone Bitart ([place] (5/325)) 1 tab Q6H PRN PO PAIN Last administered on 06/11/16at 17:38; Admin Dose 1 TAB; Start 06/11/16 at 17:30 Collagenase (Santyl) 1 applic DAILY TOP Last administered on 07/06/16 08:42; Admin Dose 1 APPLIC; Start 06/12/16 at 09:00 Nystatin (Nystatin Susp) 5 ml QID PO Last administered on 07/06/16 08:41; Admin Dose 5 ML; Start 06/18/16 at 17:00 Scopolamine (Transderm-Scop) 1 patch Q72H TRANSDERM Last administered on 20:18; Admin Dose 1 PATCH; Start 06/22/16 at 21:00 Fluconazole 100 mg 100 mg DAILY PO Last administered on 07/06/16 08:41; Admin Dose 100 MG; Start 06/28/16 at 09:00 Sodium Chloride (NS) 1,000 ml @ 100 mls/hr Q10H IV Last administered on 21:50; Admin Dose 100 MLS/HR; Start 07/01/16 at 19:00 Lactobacillus Acidoph/ [place]icus 1 tab 1 tab BID PO Last administered on 08:41; Admin Dose 1 TAB; Start 07/01/16 at 21:00 [place]/Sodium Chloride ([place]/NS) 105.25 ml @ 200 mls/ hr BID@11,15 IVPB Last administered on 07/05/16 17:16; Admin Dose 200 MLS/HR; Start 07/02/16 at 11:00 ; Stop 07/06/16 at 16:00 Potassium Chloride (Klor-Con 20) 20 meq BID PO Last administered on 07/06/16 08:41; Admin Dose 20 MEQ; Start 07/03/16 at 21:00 Ibuprofen (Motrin) 600 mg TID PRN PO FEVER Last administered on 07/04/16 01:29 ; Admin Dose 600 MG; Start 07/03/16 at 19:30 Filgrastim (Neupogen) 480 mcg DAILY@17 SC ; Start 07/06/16 at 17:00; Stop at 17:01 Miscellaneous Information PREMEDICATION,ZOFRAN,DECADRON,BENADRYL,... ONCE XX ; Start 07/04/16 at 11:00; Stop 07/06/16 at 10:59 Meropenem 500 mg/ Sodium Chloride 100 ml @ 200 mls/hr Q8 IVPB Last administered on 07/06/16 05:59; Admin Dose 200 MLS/HR; Start 07/04/16 at 22:00 Vancomycin HCl 250 ml @ 125 mls/hr Q8H IVPB Last administered on 07/06/16 02: 33; Admin Dose 125 MLS/HR; Start 07/05/16 at 02:00 Etoposide 105 mg/ Sodium Chloride 500 ml @ 500 mls/hr Q24H IV Last administered on 07/05/16 15:53; Admin Dose 500 MLS/HR; Start 07/05/16 at 14:00 ; Stop 07/06/16 at 14:59 Ifosfamide 2.63 gm/[place]es[place] 525 mg/ Sodium Chloride 250 ml @ 125 mls/hr Q24H IV Last administered on 1/14/17at 21:47; Admin Dose 125 MLS/HR; Start 07/05/16 at 18:00; Stop 07/06/16 at 19:59 Ondansetron HCl/ Dexamethasone/ Diphenhydramine HCl/Dextrose (Zofran Inj/ Decadron/Benadryl/ D5W) 59.5 ml @ 119 mls/hr Q24H IV Last administered on 07/05t 15:01; Admin Dose 119 MLS/HR; Start 07/05/16 at 13:30; Stop 07/06/16 at 13 :59 CHANDRIKA MERLOS M.D. Jul 06, 2016 09:18
[2016-07-06 10:49] LABS: BASOPHILS % 1.4 % (0.0-2.0); EOSINOPHILS % 0.5 % (0.0-7.0); HEMATOCRIT 32.3 % (37.0-47.0); LYMPHOCYTES % 1.7 % (15.0-51.0); MEAN CORPUSCULAR HEMOGLOBIN 29.7 pg (29.0-33.0); MEAN CORPUSCULAR HGB CONC 34.1 g/dl (32.0-37.0); MEAN CORPUSCULAR VOLUME 87.1 fl (82.0-101.0); MEAN PLATELET VOLUME 6.4 fl (7.4-10.4); MONOCYTES % 0.1 % (0.0-11.0); NEUTROPHIL # 2.8 10^3/ul (1.6-7.5); NEUTROPHILS % 96.3 % (39.0-77.0); PLATELET COUNT 204 10^3/UL (140-440); RED BLOOD COUNT 3.71 10^6/ul (4.20-5.40); RED CELL DISTRIBUTION WIDTH 17.6 % (11.5-14.5); UNCORRECTED WBC 2.9 10^3/ul (4.8-10.8); WHITE BLOOD COUNT 2.9 10^3/ul (4.8-10.8)
[2016-07-06 10:50] LABS: CONDITION 1; LH ANALYZER COMMENTS 1
[2016-07-06] MEDS: MESNA IVPB SCH ×2 (11:12→16:11)
[2016-07-06] MEDS: SOD CHLORIDE 0.9% IVPB SCH ×2 (11:12→16:11)
--- NOTE | 2016-07-06 13:22 | CONS ---
Date/Time of Note Date/Time of Note DATE: 07/06/16 TIME: 13:20 Assessment/Plan Assessment/Plan Chief Complaint/Hosp Course ID PROGRESS NOTE CURRENT ABX: Vanco IV, Merrem, Acyclovir 24H INTERVAL SUMMARY * Napping post lunch -> VSS, NAD Trach-> cool aerosol, calm, VSS, NAD * ABX restarted 07/04/16 or 48+H of low grade temps 100.8 range, afebrile today, Urine culture (-) preliminary * 06/24/16 Trach (+)MRSA * [facility]: 07/04/16-1539 Rcvd: 07/04/16-1548 Source: BAGGED URI Sp Descrip: Microbiology URINE CULTURE Preliminary NO GROWTH AFTER 24 HOURS PHYSICAL EXAMINATION: GENERAL: 56 yo F, trach present, VSS, NAD HEENT: Unremarkable NECK: (+)Trach present LUNGS: Chest rise symmetrical, without dyspnea on observation ABDOMEN: Soft EXTREMITIES: Warm, LUEXT PICC site without evidence infection, no edema, no drainage ID ASSESSMENT: 56 yo F w/neck mass 2nd/2 STAGE IIA Burkitts Lymphoma, s/p tracheostomy placement for compressed airway currently in chemo tx admit with: 1. SIRS w/low grade temperatures, s/p sepsis with high fevers likely secondary to neutropenia. 2. Respiratory failure, status post tracheostomy secondary to a neck mass causing tracheal compression and airway compromise, remains on trach collar. 3. Possible aspiration pneumonia=> sputum cx + MRSA. 4. Leukocytosis=> s/p Neupogen 5. s/p Coagulase-negative Staphylococcus bacteremia cw contaminant. 6. Oral thrush=> oral Nystatin 7. Transaminitis=> Per GI NOTE: elevated LFT likely due to methotrexate. * ABNORMAL LIVER US: Cholelithiasis with 3 cm calcified gallstone within the neck of gallbladder versus liver calcification adjacent to the neck of gallbladder 8. Situational anxiety related to acute medical Dx and trach -> Stable (+)MRSA Nares Screen->Bactroban => Repeat MRSA (-) INVASIVES: PICC LUEXT, FC, Trach CURRENT ABX: Vanco IV, Merrem, Acyclovir s/p PO Bactrim, Diflucan, Doxy ID RECOMMENDATIONS/PLAN: Continue current ABX . . Problems: Consultation Date/Type/Reason Admit Date/Time Jun 02, 2016 at 15:10 Initial Consult Date 06/02/16 Type of Consultation: ID Referring Provider: TELLY SOLANO MD Exam/Review of Systems Vital Signs Vitals Vital Signs Date Time Temp Pulse Resp B/P Pulse Ox O2 Delivery O2 Flow Rate FiO2 07/06/16 09:49 98 5.0 28 07/06/16 09:42 93 20 Aerosol Aerosol Mask 07/06/16 08:15 97.4 128/81 Intake and Output 07/05/16 07/05/16 07/06/16 15:00 23:00 07:00 Intake Total 1614.75 ml 1220 ml Output Total 2100 ml 1600 ml Balance -485.25 ml -380 ml Results Result Diagram: 07/06/16 1035 07/04/16 0707 Results 24 hrs Laboratory Tests Test 07/05/16 17:00 07/05/16 17:35 07/06/16 10:35 Vancomycin Level Trough 19.1 Urine Bilirubin NEGATIVE Urine Clarity CLEAR Urine Color LT. YELLOW Urine Glucose NEGATIVE Urine Hemoglobin TRACE Urine Ketones TRACE H Urine Leukocyte Esterase NEGATIVE Urine Microscopic RBC 0-2 Urine Microscopic WBC NONE SEEN Urine Nitrite NEGATIVE Urine Specific [place] 1.010 Urine Squamous Epithelial Cells RARE Urine Total Protein NEGATIVE Urine Urobilinogen 0.2 E.U./dL Urine pH 7.5 Basophils # 0.0 Basophils % 1.4 Blood Morphology Comment Differential Comment AUTO w/SCAN Eosinophils # 0.0 Eosinophils % 0.5 Hematocrit 32.3 #L Hemoglobin 11.0 L Lymphocytes # 0.0 L Lymphocytes % 1.7 L Mean Corpuscular Hemoglobin 29.7 Mean Corpuscular Hemoglobin Concent 34.1 Mean Corpuscular Volume 87.1 Mean Platelet Volume 6.4 L Monocytes # 0.0 L Monocytes % 0.1 Neutrophils # 2.8 Neutrophils % 96.3 H Nucleated Red Blood Cells # 0.0 Nucleated Red Blood Cells % 0.0 Platelet Count 204 Red Blood Count 3.71 #L Red Cell Distribution Width 17.6 H White Blood Count 2.9 L Medications Medications Current Medications Acyclovir (Zovirax) 400 mg BID PO Last administered on 07/06/16t 08:41; Admin Dose 400 MG; Start 06/02/16 at 14:30 Diphenhydramine HCl (Benadryl) 25 mg Q4H PRN IV ALLERGIC REACTION Last administered on 06/06/16 20:26; Admin Dose 25 MG; Start 06/02/16 at 18:30 Dexamethasone 10 mg 10 mg Q4H PRN IV ALLERGIC REACTION; Start 06/02/16 at 18: 30 Ondansetron HCl/ Sodium Chloride (Zofran Inj/NS) 54 ml @ 216 mls/hr Q6H PRN IV NAUSEA AND/OR VOMITING Last administered on 07/04/16 01:24; Admin Dose 216 MLS/HR; Start 06/02/16 at 18:30 Ondansetron HCl (Zofran Inj) 4 mg Q6H PRN IV NAUSEA AND/OR VOMITING Last administered on 07/05/16 19:51; Admin Dose 4 MG; Start 06/03/16 at 17:00 Acetaminophen (Tylenol Tab) 650 mg Q6H PRN PO PAIN LEVEL 1-3 OR FEVER Last administered on 07/03/16 18:37; Admin Dose 650 MG; Start 06/03/16 at 17:00 Acetaminophen (Tylenol Supp) 650 mg Q6H PRN [place] PAIN LEVEL 1-3 OR FEVER Last administered on 06/09/16 03:37; Admin Dose 650 MG; Start 06/03/16 at 17:00 Docusate Sodium (Colace) 100 mg Q12H PRN PO CONSTIPATION Last administered on 06/20/16 22:25; Admin Dose 100 MG; Start 06/03/16 at 17:00 Magnesium Hydroxide (Milk Of Mag) 30 ml DAILY PRN PO CONSTIPATION Last administered on 06/20/16 06:13; Admin Dose 30 ML; Start 06/03/16 at 17:00 Bisacodyl (Dulcolax) 5 mg DAILY PRN PO CONSTIPATION; Start 06/03/16 at 17:00 Bisacodyl (Dulcolax Supp) 10 mg DAILY PRN [place] CONSTIPATION Last administered on 06/21/16 05:18; Admin Dose 10 MG; Start 06/03/16 at 17:00 Sodium Biphosphate/ Sodium Phosphate (Fleet Enema) 133 ml DAILY PRN [place] CONSTIPATION; Start 06/03/16 at 17:00 Enoxaparin Sodium (Lovenox) 30 mg DAILY SC Last administered on 06/12/16at 08: 27; Admin Dose 30 MG; Start 06/04/16 at 09:00; Status Future Hold Allopurinol (Zyloprim) 300 mg DAILY PO Last administered on 07/06/16 08:41; Admin Dose 300 MG; Start 06/04/16 at 09:00 Eye Lubricant (Artificial Tears Oph) 2 drop QID BOTH EYES Last administered on 07/06/16 08:42; Admin Dose 2 DROP; Start 06/03/16 at 21:00 Eye Lubricant (Akwa Oint) 1 applic DAILY BOTH EYES Last administered on 09:20; Admin Dose 1 APPLIC; Start 06/04/16 at 09:00 Gabapentin (Neurontin) 200 mg TID PO Last administered on 07/06/16 08:41; Admin Dose 200 MG; Start 06/03/16 at 21:00 Levothyroxine Sodium (Synthroid) 100 mcg DAILY@06 PO Last administered on 05:59; Admin Dose 100 MCG; Start 06/04/16 at 06:00 Pantoprazole (Protonix Iv) 40 mg DAILY@06 IV Last administered on 07/06/16 05: 59; Admin Dose 40 MG; Start 06/09/16 at 06:00 Lorazepam (Ativan) 1 mg Q6H PRN IV AGITATION/ANXIETY Last administered on 02:48; Admin Dose 1 MG; Start 06/08/16 at 18:00 Acetaminophen/ Hydrocodone Bitart ([place] (5/325)) 1 tab Q6H PRN PO PAIN Last administered on 06/11/16at 17:38; Admin Dose 1 TAB; Start 06/11/16 at 17:30 Collagenase (Santyl) 1 applic DAILY TOP Last administered on 07/06/16 08:42; Admin Dose 1 APPLIC; Start 06/12/16 at 09:00 Nystatin (Nystatin Susp) 5 ml QID PO Last administered on 07/06/16 08:41; Admin Dose 5 ML; Start 06/18/16 at 17:00 Scopolamine (Transderm-Scop) 1 patch Q72H TRANSDERM Last administered on 20:18; Admin Dose 1 PATCH; Start 06/22/16 at 21:00 Fluconazole 100 mg 100 mg DAILY PO Last administered on 07/06/16 08:41; Admin Dose 100 MG; Start 06/28/16 at 09:00 Sodium Chloride (NS) 1,000 ml @ 100 mls/hr Q10H IV Last administered on 21:50; Admin Dose 100 MLS/HR; Start 07/01/16 at 19:00 Lactobacillus Acidoph/ Bulgaricus 1 tab 1 tab BID PO Last administered on 08:41; Admin Dose 1 TAB; Start 07/01/16 at 21:00 [place]/Sodium Chloride ([place]/NS) 105.25 ml @ 200 mls/ hr BID@11,15 IVPB Last administered on 07/06/16 11:12; Admin Dose 200 MLS/HR; Start 07/02/16 at 11:00 ; Stop 07/06/16 at 16:00 Potassium Chloride (Klor-Con 20) 20 meq BID PO Last administered on 07/06/16 08:41; Admin Dose 20 MEQ; Start 07/03/16 at 21:00 Ibuprofen (Motrin) 600 mg TID PRN PO FEVER Last administered on 07/04/16 01:29 ; Admin Dose 600 MG; Start 07/03/16 at 19:30 Filgrastim 480 mcg 480 mcg DAILY@17 SC ; Start 07/06/16 at 17:00; Stop 07/10/16 at 17:01 Meropenem 500 mg/ Sodium Chloride 100 ml @ 200 mls/hr Q8 IVPB Last administered on 07/06/16 05:59; Admin Dose 200 MLS/HR; Start 07/04/16 at 22:00 Vancomycin HCl 250 ml @ 125 mls/hr Q8H IVPB Last administered on 07/06/16 09: 53; Admin Dose 125 MLS/HR; Start 07/05/16 at 02:00 Etoposide 105 mg/ Sodium Chloride 500 ml @ 500 mls/hr Q24H IV Last administered on 07/05/16 15:53; Admin Dose 500 MLS/HR; Start 07/05/16 at 14:00 ; Stop 07/06/16 at 14:59 Ifosfamide 2.63 gm/[place] 525 mg/ Sodium Chloride 250 ml @ 125 mls/hr Q24H IV Last administered on 07/05/16 21:47; Admin Dose 125 MLS/HR; Start 07/05/16 at 18:00; Stop 07/06/16 at 19:59 Ondansetron HCl/ Dexamethasone/ Diphenhydramine HCl/Dextrose (Zofran Inj/ Decadron/Benadryl/ D5W) 59.5 ml @ 119 mls/hr Q24H IV Last administered on 07/05 15:01; Admin Dose 119 MLS/HR; Start 07/05/16 at 13:30; Stop 07/06/16 at 13 :59 BRENT AUSTIN NP Jul 06, 2016 13:22
[2016-07-06] MEDS: [UNRECOGNIZED DRUG - OTHER] IV SCH (13:33)
[2016-07-06] MEDS: DIPHENHYDRAMINE IV SCH (13:33)
[2016-07-06] MEDS: DEXAMETHASONE IV SCH (13:33)
[2016-07-06] MEDS: ONDANSETRON IV SCH (13:33)
[2016-07-06] MEDS: SOD CHLORIDE 0.9% IV SCH ×2 (14:19→18:27)
[2016-07-06] MEDS: ETOPOSIDE IV SCH (14:19)
[2016-07-06 14:39] VITALS: BP 100/66; PULSE 97; RESP 18
--- NOTE | 2016-07-06 16:29 | PN ---
Date/Time of Note Date/Time of Note DATE: 07/06/16 TIME: 16:28 Assessment/Plan VTE Prophylaxis VTE Prophylaxis Intervention: other Lines/Catheters IV Catheter Type (from Nrs): PICC Line Central line still needed: Yes Urinary Cath still in place: No Assessment/Plan Chief Complaint/Hosp Course IMPRESSION: The patient has Burkitt's lymphoma status post tracheostomy, status post thyroid mass, status post pancytopenia, abnormal liver function test. better SEPSIS better gallstone ABN LFT better hypokalemia anemia post chemo PLAN per oncology LABS chemo Problems: Subjective 24 Hr Interval Summary Respiratory: no complaints Cardiovascular: no complaints Exam/Review of Systems Vital Signs Vitals Vital Signs Date Time Temp Pulse Resp B/P Pulse Ox O2 Delivery O2 Flow Rate FiO2 07/06/16 14:39 98.0 97 18 100/66 100 Trach Collar 5.0 07/06/16 13:58 28 Intake and Output 07/05/16 07/05/16 07/06/16 15:00 23:00 07:00 Intake Total 1614.75 ml 1220 ml Output Total 2100 ml 1600 ml Balance -485.25 ml -380 ml Exam Respiratory: clear to auscultation Cardiovascular: regular rate and rhythm Gastrointestinal: soft Musculoskeletal: nl extremities to inspection Extremities: normal pulses Results Result Diagram: 07/06/16 1035 07/04/16 0707 Results 24 hrs Laboratory Tests Test 07/05/16 17:00 07/05/16 17:35 07/06/16 10:35 Vancomycin Level Trough 19.1 Urine Bilirubin NEGATIVE Urine Clarity CLEAR Urine Color LT. YELLOW Urine Glucose NEGATIVE Urine Hemoglobin TRACE Urine Ketones TRACE H Urine Leukocyte Esterase NEGATIVE Urine Microscopic RBC 0-2 Urine Microscopic WBC NONE SEEN Urine Nitrite NEGATIVE Urine Specific [place] 1.010 Urine Squamous Epithelial Cells RARE Urine Total Protein NEGATIVE Urine Urobilinogen 0.2 E.U./dL Urine pH 7.5 Basophils # 0.0 Basophils % 1.4 Blood Morphology Comment Differential Comment AUTO w/SCAN Eosinophils # 0.0 Eosinophils % 0.5 Hematocrit 32.3 #L Hemoglobin 11.0 L Lymphocytes # 0.0 L Lymphocytes % 1.7 L Mean Corpuscular Hemoglobin 29.7 Mean Corpuscular Hemoglobin Concent 34.1 Mean Corpuscular Volume 87.1 Mean Platelet Volume 6.4 L Monocytes # 0.0 L Monocytes % 0.1 Neutrophils # 2.8 Neutrophils % 96.3 H Nucleated Red Blood Cells # 0.0 Nucleated Red Blood Cells % 0.0 Platelet Count 204 Red Blood Count 3.71 #L Red Cell Distribution Width 17.6 H White Blood Count 2.9 L Medications Medications Current Medications Acyclovir (Zovirax) 400 mg BID PO Last administered on 07/06/16 08:41; Admin Dose 400 MG; Start 06/02/16 at 14:30 Diphenhydramine HCl (Benadryl) 25 mg Q4H PRN IV ALLERGIC REACTION Last administered on 06/06/16 20:26; Admin Dose 25 MG; Start 06/02/16 at 18:30 Dexamethasone 10 mg 10 mg Q4H PRN IV ALLERGIC REACTION; Start 06/02/16 at 18: 30 Ondansetron HCl/ Sodium Chloride (Zofran Inj/NS) 54 ml @ 216 mls/hr Q6H PRN IV NAUSEA AND/OR VOMITING Last administered on 07/04/16 01:24; Admin Dose 216 MLS/HR; Start 06/02/16 at 18:30 Ondansetron HCl (Zofran Inj) 4 mg Q6H PRN IV NAUSEA AND/OR VOMITING Last administered on 07/05/16 19:51; Admin Dose 4 MG; Start 06/03/16 at 17:00 Acetaminophen (Tylenol Tab) 650 mg Q6H PRN PO PAIN LEVEL 1-3 OR FEVER Last administered on 07/03/16 18:37; Admin Dose 650 MG; Start 06/03/16 at 17:00 Acetaminophen (Tylenol Supp) 650 mg Q6H PRN [place] PAIN LEVEL 1-3 OR FEVER Last administered on 06/09/16 03:37; Admin Dose 650 MG; Start 06/03/16 at 17:00 Docusate Sodium (Colace) 100 mg Q12H PRN PO CONSTIPATION Last administered on 06/20/16 22:25; Admin Dose 100 MG; Start 06/03/16 at 17:00 Magnesium Hydroxide (Milk Of Mag) 30 ml DAILY PRN PO CONSTIPATION Last administered on 06/20/16 06:13; Admin Dose 30 ML; Start 06/03/16 at 17:00 Bisacodyl (Dulcolax) 5 mg DAILY PRN PO CONSTIPATION; Start 06/03/16 at 17:00 Bisacodyl (Dulcolax Supp) 10 mg DAILY PRN [place] CONSTIPATION Last administered on 06/21/16at 05:18; Admin Dose 10 MG; Start 06/03/16 at 17:00 Sodium Biphosphate/ Sodium Phosphate (Fleet Enema) 133 ml DAILY PRN [place] CONSTIPATION; Start 06/03/16 at 17:00 Enoxaparin Sodium (Lovenox) 30 mg DAILY SC Last administered on 06/12/16at 08: 27; Admin Dose 30 MG; Start 06/04/16 at 09:00; Status Future Hold Allopurinol (Zyloprim) 300 mg DAILY PO Last administered on 07/06/16 08:41; Admin Dose 300 MG; Start 06/04/16 at 09:00 Eye Lubricant (Artificial Tears Oph) 2 drop QID BOTH EYES Last administered on 07/06/16 13:34; Admin Dose 2 DROP; Start 06/03/16 at 21:00 Eye Lubricant (Akwa Oint) 1 applic DAILY BOTH EYES Last administered on 13:33; Admin Dose 1 APPLIC; Start 06/04/16 at 09:00 Gabapentin (Neurontin) 200 mg TID PO Last administered on 07/06/16 13:32; Admin Dose 200 MG; Start 06/03/16 at 21:00 Levothyroxine Sodium (Synthroid) 100 mcg DAILY@06 PO Last administered on 05:59; Admin Dose 100 MCG; Start 06/04/16 at 06:00 Pantoprazole (Protonix Iv) 40 mg DAILY@06 IV Last administered on 07/06/16 05: 59; Admin Dose 40 MG; Start 06/09/16 at 06:00 Lorazepam (Ativan) 1 mg Q6H PRN IV AGITATION/ANXIETY Last administered on 02:48; Admin Dose 1 MG; Start 06/08/16 at 18:00 Acetaminophen/ Hydrocodone Bitart ([place] (5/325)) 1 tab Q6H PRN PO PAIN Last administered on 06/11/16at 17:38; Admin Dose 1 TAB; Start 06/11/16 at 17:30 Collagenase (Santyl) 1 applic DAILY TOP Last administered on 07/06/16 08:42; Admin Dose 1 APPLIC; Start 06/12/16 at 09:00 Nystatin (Nystatin Susp) 5 ml QID PO Last administered on 07/06/16 13:32; Admin Dose 5 ML; Start 06/18/16 at 17:00 Scopolamine (Transderm-Scop) 1 patch Q72H TRANSDERM Last administered on 20:18; Admin Dose 1 PATCH; Start 06/22/16 at 21:00 Fluconazole 100 mg 100 mg DAILY PO Last administered on 07/06/16 08:41; Admin Dose 100 MG; Start 06/28/16 at 09:00 Sodium Chloride (NS) 1,000 ml @ 100 mls/hr Q10H IV Last administered on 21:50; Admin Dose 100 MLS/HR; Start 07/01/16 at 19:00 Lactobacillus Acidoph/Bulgaricus (Floranex) 1 tab BID PO Last administered on 08:41; Admin Dose 1 TAB; Start 07/01/16 at 21:00 Potassium Chloride (Klor-Con 20) 20 meq BID PO Last administered on 07/06/16 08:41; Admin Dose 20 MEQ; Start 07/03/16 at 21:00 Ibuprofen (Motrin) 600 mg TID PRN PO FEVER Last administered on 07/04/16 01:29 ; Admin Dose 600 MG; Start 07/03/16 at 19:30 Filgrastim 480 mcg 480 mcg DAILY@17 SC ; Start 07/06/16 at 17:00; Stop 07/10/16 at 17:01 Meropenem 500 mg/ Sodium Chloride 100 ml @ 200 mls/hr Q8 IVPB Last administered on 07/06/16 16:13; Admin Dose 200 MLS/HR; Start 07/04/16 at 22:00 Vancomycin HCl 250 ml @ 125 mls/hr Q8H IVPB Last administered on 07/06/16 09: 53; Admin Dose 125 MLS/HR; Start 07/05/16 at 02:00 Ifosfamide/[place]/ Sodium Chloride (Ifex/[place]/NS) 250 ml @ 125 mls/hr Q24H IV Last administered on 07/05/16 21:47; Admin Dose 125 MLS/HR; Start 07/05/16 at 18:00; Stop 1/15/17 at 19:59 GUERLINE SULLIVAN MD Jul 06, 2016 16:29
[2016-07-06] MEDS: FILGRASTIM 480 MCG INJ SC SCH (18:07)
[2016-07-06] MEDS: MESNA IV SCH (18:27)
[2016-07-06] MEDS: IFOSFAMIDE IV SCH (18:27)
[2016-07-06 18:34] VITALS: BP 100/65; PULSE 92; RESP 18
[2016-07-06 20:03] VITALS: BP 109/71; RESP 20
[2016-07-07] MEDS: ALBUTEROL/IPRATROPIUM (NEB) 3 ML AMP HHN SCH ×6 (00:43→20:00)
[2016-07-07] MEDS: VANCOMYCIN 1 GM in NS 250 ML IVPB SCH ×2 (02:17→10:23)
[2016-07-07] MEDS: SOD CHLORIDE 0.9% 1,000 ML IV SCH ×3 (04:50→16:48)
[2016-07-07 05:44] LABS: HEMATOCRIT 31.6 % (37.0-47.0); MEAN CORPUSCULAR HEMOGLOBIN 30.2 pg (29.0-33.0); MEAN CORPUSCULAR HGB CONC 34.7 g/dl (32.0-37.0); MEAN PLATELET VOLUME 6.9 fl (7.4-10.4); PLATELET COUNT 167 10^3/UL (140-440); RED BLOOD COUNT 3.63 10^6/ul (4.20-5.40); RED CELL DISTRIBUTION WIDTH 17.4 % (11.5-14.5); UNCORRECTED WBC 7.5 10^3/ul (4.8-10.8); WHITE BLOOD COUNT 7.5 10^3/ul (4.8-10.8)
[2016-07-07 05:53] LABS: CONDITION 1; LH ANALYZER COMMENTS 1; SUSPECT 1
[2016-07-07] MEDS: PANTOPRAZOLE 40 MG INJ IV SCH (05:59)
[2016-07-07] MEDS: LEVOTHYROXINE 100 MCG TAB PO SCH (05:59)
[2016-07-07] MEDS: MEROPENEM 500 MG in SOD CHLORIDE 0.9% 100 ML IVPB SCH (06:00)
[2016-07-07 06:25] LABS: POTASSIUM 3.9 mmol/L (3.5-5.1)
[2016-07-07 06:26] LABS: CREATININE 0.32 mg/dl (0.44-1.00)
[2016-07-07 06:27] LABS: ALBUMIN/GLOBULIN RATIO 1.15; BILIRUBIN,INDIRECT 0.3 mg/dl (0-1.1); BILIRUBIN,TOTAL 0.3 mg/dl (0.2-1.3); CALCIUM 9.1 mg/dl (8.4-10.2); TOTAL PROTEIN 5.6 g/dl (6.1-8.1)
[2016-07-07 08:25] VITALS: BP 107/68; RESP 18
[2016-07-07] MEDS: LACTOBACILLUS CHEW TAB PO SCH ×2 (08:44→23:00)
[2016-07-07] MEDS: OCULAR LUBRICANT 3.5 GM OPH OINT BOTH EYES SCH (08:44)
[2016-07-07] MEDS: GABAPENTIN 100 MG CAP PO SCH ×3 (08:44→23:00)
[2016-07-07] MEDS: ACYCLOVIR 400 MG TAB PO SCH ×2 (08:44→23:00)
[2016-07-07] MEDS: ALLOPURINOL 300 MG TAB PO SCH (08:44)
[2016-07-07] MEDS: ARTIFICIAL TEARS 15 ML OPH BOTH EYES SCH ×4 (08:44→21:05)
[2016-07-07] MEDS: POTASSIUM CHLORIDE (SR) 20 MEQ TAB PO SCH ×2 (08:44→23:00)
[2016-07-07] MEDS: FLUCONAZOLE 100 MG TAB PO SCH (08:44)
[2016-07-07] MEDS: NYSTATIN SUSP 5 ML CUP PO SCH ×4 (08:44→23:00)
[2016-07-07] MEDS: COLLAGENASE 30 GM TUBE TOP SCH (08:45)
[2016-07-07 09:59] LABS: LYMPHOCYTES # 0.1 10^3/ul (0.8-2.9); NEUTROPHIL # 7.4 10^3/ul (1.6-7.5)
[2016-07-07] MEDS: ONDANSETRON 4 MG INJ IV PRN (11:16)
--- NOTE | 2016-07-07 14:27 | CONS ---
Date/Time of Note Date/Time of Note DATE: 07/07/16 TIME: 14:20 Assessment/Plan Assessment/Plan Chief Complaint/Hosp Course ID PROGRESS NOTE CURRENT ABX: # 3 = restarted Vanco IV, Merrem, Acyclovir 24H INTERVAL SUMMARY * Awake, no complaints, Chemo Tx infused today via PICC * VSS, NAD Trach-> cool aerosol, calm, VSS, NAD * 06/24/16 Trach (+)MRSA * [facility]: 07/04/16-1539 Rcvd: 07/04/16 Source: BAGGED URI Sp Descrip: Microbiology URINE CULTURE Preliminary Organism 1 PSEUDOMONAS AERUGINOSA COLONY COUNT 50,000 - 60,000 CFU/ml P.AERUG M.I.C. RX --------- --- AMIKACIN 4 S CEFEPIME >=64 R CEFTAZIDIME 16 I CIPROFLOXACIN >=4 R GENTAMICIN 4 S IMIPENEM >=16 R LEVOFLOXACIN >=8 R TOBRAMYCIN <=1 S PIPERACILLIN/TAZOBACTAM R PHYSICAL EXAMINATION: GENERAL: 56 yo F, trach present, VSS, NAD HEENT: Unremarkable NECK: (+)Trach present LUNGS: Chest rise symmetrical, without dyspnea on observation ABDOMEN: Soft EXTREMITIES: Warm, LUEXT PICC site without evidence infection, no edema, no drainage ID ASSESSMENT: 56 yo F w/neck mass 2nd/2 STAGE IIA Burkitts Lymphoma, s/p tracheostomy placement for compressed airway currently in chemo tx admit with: 1. SIRS w/low grade temperatures, s/p sepsis with high fevers likely secondary to neutropenia. * UTI 07/04/16 (+)Low colony count PSAR=MDRO 2. Respiratory failure, status post tracheostomy secondary to a neck mass causing tracheal compression and airway compromise, remains on trach collar. 3. Possible aspiration pneumonia=> (+)MRSA sputum 4. Leukocytosis=> s/p Neupogen 5. s/p Coagulase-negative Staphylococcus bacteremia cw contaminant. 6. Oral thrush=> oral Nystatin 7. Transaminitis=> Per GI NOTE: elevated LFT likely due to methotrexate. * ABNORMAL LIVER US: Cholelithiasis with 3 cm calcified gallstone within the neck of gallbladder versus liver calcification adjacent to the neck of gallbladder 8. Situational anxiety related to acute medical Dx and trach -> Stable (+)MRSA Nares Screen->Bactroban => Repeat MRSA (-) INVASIVES: PICC LUEXT, FC, Trach CURRENT ABX: Vanco IV, Merrem, Acyclovir s/p PO Bactrim, Diflucan, Doxy ID RECOMMENDATIONS/PLAN: DC Merrem = PSAR is resistant Give Fosfomycin 3gm po X1 for bladder anti-sepsis + GENT IV x 3 days only Avoid prolonged aminoglycoside + Vanco due to ototoxicity + nephrotoxicity . . . Problems: Consultation Date/Type/Reason Admit Date/Time Jun 02, 2016 at 15:10 Initial Consult Date 06/02/16 Type of Consultation: ID Referring Provider: TELLY SOLANO MD Exam/Review of Systems Vital Signs Vitals Vital Signs Date Time Temp Pulse Resp B/P Pulse Ox O2 Delivery O2 Flow Rate FiO2 07/07/16 13:50 5.0 28 07/07/16 13:50 97 20 98 Aerosol 07/07/16 08:25 98.1 107/68 Intake and Output 07/06/16 07/06/16 07/07/16 15:00 23:00 07:00 Intake Total 1840 ml 1210 ml Output Total 1200 ml 1600 ml Balance 640 ml -390 ml Results Result Diagram: 07/07/16 0435 07/07/16 0435 Results 24 hrs Laboratory Tests Test 07/07/16 04:35 Alanine Aminotransferase (ALT/SGPT) 75 H Albumin 3.0 L Albumin/Globulin Ratio 1.15 Alkaline Phosphatase 136 H Anion Gap 17 H Aspartate Amino Transf (AST/SGOT) 73 H Basophils # Basophils % Blood Morphology Comment Blood Urea Nitrogen 7 Calcium Level 9.1 Carbon Dioxide Level 22 Chloride Level 106 Creatinine 0.32 L Differential Comment MANUAL DIFF Direct Bilirubin 0.00 Eosinophils # Eosinophils % Globulin 2.60 Glucose Level 82 Hematocrit 31.6 L Hemoglobin 11.0 L Indirect Bilirubin 0.3 Lymphocytes # 0.1 L Lymphocytes % 1.0 L Mean Corpuscular Hemoglobin 30.2 Mean Corpuscular Hemoglobin Concent 34.7 Mean Corpuscular Volume 87.0 Mean Platelet Volume 6.9 L Monocytes # Monocytes % Neutrophils # 7.4 Neutrophils % 99.0 H Nucleated Red Blood Cells # Nucleated Red Blood Cells % Platelet Count 167 Potassium Level 3.9 Red Blood Count 3.63 L Red Cell Distribution Width 17.4 H Sodium Level 141 Total Bilirubin 0.3 Total Protein 5.6 L White Blood Count 7.5 # Medications Medications Current Medications Acyclovir (Zovirax) 400 mg BID PO Last administered on 07/07/16 08:44; Admin Dose 400 MG; Start 06/02/16 at 14:30 Diphenhydramine HCl (Benadryl) 25 mg Q4H PRN IV ALLERGIC REACTION Last administered on 06/06/16 20:26; Admin Dose 25 MG; Start 06/02/16 at 18:30 Dexamethasone 10 mg 10 mg Q4H PRN IV ALLERGIC REACTION; Start 06/02/16 at 18: 30 Ondansetron HCl/ Sodium Chloride (Zofran Inj/NS) 54 ml @ 216 mls/hr Q6H PRN IV NAUSEA AND/OR VOMITING Last administered on 07/04/16 01:24; Admin Dose 216 MLS/HR; Start 06/02/16 at 18:30 Ondansetron HCl (Zofran Inj) 4 mg Q6H PRN IV NAUSEA AND/OR VOMITING Last administered on 07/07/16 11:16; Admin Dose 4 MG; Start 06/03/16 at 17:00 Acetaminophen (Tylenol Tab) 650 mg Q6H PRN PO PAIN LEVEL 1-3 OR FEVER Last administered on 07/03/16 18:37; Admin Dose 650 MG; Start 06/03/16 at 17:00 Acetaminophen (Tylenol Supp) 650 mg Q6H PRN [place] PAIN LEVEL 1-3 OR FEVER Last administered on 06/09/16 03:37; Admin Dose 650 MG; Start 06/03/16 at 17:00 Docusate Sodium (Colace) 100 mg Q12H PRN PO CONSTIPATION Last administered on 06/20/16 22:25; Admin Dose 100 MG; Start 06/03/16 at 17:00 Magnesium Hydroxide (Milk Of Mag) 30 ml DAILY PRN PO CONSTIPATION Last administered on 06/20/16 06:13; Admin Dose 30 ML; Start 06/03/16 at 17:00 Bisacodyl (Dulcolax) 5 mg DAILY PRN PO CONSTIPATION; Start 06/03/16 at 17:00 Bisacodyl (Dulcolax Supp) 10 mg DAILY PRN [place] CONSTIPATION Last administered on 06/21/16at 05:18; Admin Dose 10 MG; Start 06/03/16 at 17:00 Sodium Biphosphate/ Sodium Phosphate (Fleet Enema) 133 ml DAILY PRN [place] CONSTIPATION; Start 06/03/16 at 17:00 Enoxaparin Sodium (Lovenox) 30 mg DAILY SC Last administered on 06/12/16at 08: 27; Admin Dose 30 MG; Start 06/04/16 at 09:00; Status Future Hold Allopurinol (Zyloprim) 300 mg DAILY PO Last administered on 07/07/16 08:44; Admin Dose 300 MG; Start 06/04/16 at 09:00 Eye Lubricant (Artificial Tears Oph) 2 drop QID BOTH EYES Last administered on 07/07/16 12:44; Admin Dose 2 DROP; Start 06/03/16 at 21:00 Eye Lubricant (Akwa Oint) 1 applic DAILY BOTH EYES Last administered on 08:44; Admin Dose 1 APPLIC; Start 06/04/16 at 09:00 Gabapentin (Neurontin) 200 mg TID PO Last administered on 07/07/16 12:44; Admin Dose 200 MG; Start 06/03/16 at 21:00 Levothyroxine Sodium (Synthroid) 100 mcg DAILY@06 PO Last administered on 05:59; Admin Dose 100 MCG; Start 06/04/16 at 06:00 Pantoprazole (Protonix Iv) 40 mg DAILY@06 IV Last administered on 07/07/16 05: 59; Admin Dose 40 MG; Start 06/09/16 at 06:00 Lorazepam (Ativan) 1 mg Q6H PRN IV AGITATION/ANXIETY Last administered on 02:48; Admin Dose 1 MG; Start 06/08/16 at 18:00 Acetaminophen/ Hydrocodone Bitart ([place] (5/325)) 1 tab Q6H PRN PO PAIN Last administered on 06/11/16at 17:38; Admin Dose 1 TAB; Start 06/11/16 at 17:30 Collagenase (Santyl) 1 applic DAILY TOP Last administered on 07/07/16 08:45; Admin Dose 1 APPLIC; Start 06/12/16 at 09:00 Nystatin (Nystatin Susp) 5 ml QID PO Last administered on 07/07/16 12:44; Admin Dose 5 ML; Start 06/18/16 at 17:00 Scopolamine (Transderm-Scop) 1 patch Q72H TRANSDERM Last administered on 20:18; Admin Dose 1 PATCH; Start 06/22/16 at 21:00 Fluconazole 100 mg 100 mg DAILY PO Last administered on 07/07/16 08:44; Admin Dose 100 MG; Start 06/28/16 at 09:00 Sodium Chloride (NS) 1,000 ml @ 100 mls/hr Q10H IV Last administered on 21:50; Admin Dose 100 MLS/HR; Start 07/01/16 at 19:00 Lactobacillus Acidoph/Bulgaricus (Floranex) 1 tab BID PO Last administered on 08:44; Admin Dose 1 TAB; Start 07/01/16 at 21:00 Potassium Chloride (Klor-Con 20) 20 meq BID PO Last administered on 07/07/16 08:44; Admin Dose 20 MEQ; Start 07/03/16 at 21:00 Ibuprofen (Motrin) 600 mg TID PRN PO FEVER Last administered on 07/04/16 01:29 ; Admin Dose 600 MG; Start 07/03/16 at 19:30 Filgrastim 480 mcg 480 mcg DAILY@17 SC Last administered on 07/06/16 18:07; Admin Dose 480 MCG; Start 07/06/16 at 17:00; Stop 07/10/16 at 17:01 Meropenem 500 mg/ Sodium Chloride 100 ml @ 200 mls/hr Q8 IVPB Last administered on 07/07/16 06:00; Admin Dose 200 MLS/HR; Start 07/04/16 at 22:00 Vancomycin HCl (Vancocin) 250 ml @ 125 mls/hr Q8H IVPB Last administered on 10:23; Admin Dose 125 MLS/HR; Start 07/05/16 at 02:00 Miscellaneous Information (*Rx Drug Level Order Reminder*) VANCOMYCIN TROUGH AT 1700 ONCE ONCE XX ; Start 07/07/16 at 17:00; Stop 07/07/16 at 17:01 BRENT AUSTIN NP Jul 07, 2016 14:27
[2016-07-07] MEDS ORDERED: GENTAMICIN IV PER PHARMACY XX SCH (14:30)
--- NOTE | 2016-07-07 14:48 | CONS ---
Date/Time of Note Date/Time of Note DATE: 07/07/16 TIME: 14:44 Assessment/Plan Assessment/Plan Chief Complaint/Hosp Course 56 yo female with massive neck mass causing tracheal compression and airway compromise s/p tracheostomy placement. 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 Pt was given cycle 1A and 1B of R HyperCVAD but had only a partial response to therapy and severe side effects. We have thus changed her chemotherapy regimen. She is now s/p cycle 1A of R-CODOX-M and has now completed her chemotherapy. Most recent CT neck showed resolution of the mass. Pt's counts are now improving and she is no longer transfusion dependant. She has since started Cycle 1B and is receiving R-IVAC Problems: Additional Assessment/Plan # Burkitt's lymphoma - currently day 6 cycle 1B R -IVAC. chemotherapy regimen is as follows Part 2: R-IVAC Rituximab (Rituxan) 375 mg/m2 IV once on day 1 Ifosfamide (Ifex) 1500 mg/m2 IV over 2 hours once per day on days 1 to 5 Etoposide (Vepesid) 60 mg/m2 IV over 1 hour once per day on days 1 to 5 Cytarabine (Cytosar) 2 g/m2 IV over 3 hours Q12H on days 1 & 2 (4 doses total) [place] (Mesnex) 300 mg/m2 (mixed with Ifosfamide (Ifex)) , then 300mg/m2 IV every four hours x 2, on days 1 to 5 # Neutropenic fevers -appreciate ID recs. continue meropenem and vancomycin -f/u blood and urine cultures # Supportive Care and prophylactic meds -Started Acyclovir 400mg BID -fluconazole 100mg q day -Neupogen 300mcg q day day after chemotherapy is completed -Zofran ordered prn nausea #Expected Pancytopenia -keep Hg> 8 and platelets > 10. pt to get 1 units of prbc today # Elevated AST and ALT, likely related to methotrexate. 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 all steroids should be discontinued for now unless they are part of the chemotherapy regimen -continue to work with physical therapy. 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 -uric acid level ok Approximately 40 min were spent at patient's bedside and in coordination of her care Consultation Date/Type/Reason Admit Date/Time Jun 02, 2016 at 15:10 Initial Consult Date 06/02/16 Type of Consultation: Hematology Reason for Consultation Burkitt's lymphoma Referring Provider: TELLY SOLANO MD 24 HR Interval Summary Free Text/Dictation pt with weakness and nausea. now done with chemotherapy Exam/Review of Systems Vital Signs Vitals Vital Signs Date Time Temp Pulse Resp B/P Pulse Ox O2 Delivery O2 Flow Rate FiO2 07/07/16 13:50 5.0 28 07/07/16 13:50 97 20 98 Aerosol 07/07/16 08:25 98.1 107/68 Intake and Output 07/06/16 07/06/16 07/07/16 15:00 23:00 07:00 Intake Total 1840 ml 1210 ml Output Total 1200 ml 1600 ml Balance 640 ml -390 ml Exam Constitutional: alert, oriented Psych: nl mood/affect, no complaints Head: atraumatic, normocephalic Eyes: nl conjunctiva ENMT: nl external ears & nose Neck: other (trach in place) Respiratory: clear to auscultation, normal air movement Cardiovascular: nl pulses, regular rate and rhythm Gastrointestinal: soft Genitourinary - Female: nl adnexae Musculoskeletal: nl extremities to inspection, nl gait and stance Results Result Diagram: 07/07/165 07/07/16 0435 Results 24 hrs Laboratory Tests Test 07/07/16 04:35 Alanine Aminotransferase (ALT/SGPT) 75 H Albumin 3.0 L Albumin/Globulin Ratio 1.15 Alkaline Phosphatase 136 H Anion Gap 17 H Aspartate Amino Transf (AST/SGOT) 73 H Basophils # Basophils % Blood Morphology Comment Blood Urea Nitrogen 7 Calcium Level 9.1 Carbon Dioxide Level 22 Chloride Level 106 Creatinine 0.32 L Differential Comment MANUAL DIFF Direct Bilirubin 0.00 Eosinophils # Eosinophils % Globulin 2.60 Glucose Level 82 Hematocrit 31.6 L Hemoglobin 11.0 L Indirect Bilirubin 0.3 Lymphocytes # 0.1 L Lymphocytes % 1.0 L Mean Corpuscular Hemoglobin 30.2 Mean Corpuscular Hemoglobin Concent 34.7 Mean Corpuscular Volume 87.0 Mean Platelet Volume 6.9 L Monocytes # Monocytes % Neutrophils # 7.4 Neutrophils % 99.0 H Nucleated Red Blood Cells # Nucleated Red Blood Cells % Platelet Count 167 Potassium Level 3.9 Red Blood Count 3.63 L Red Cell Distribution Width 17.4 H Sodium Level 141 Total Bilirubin 0.3 Total Protein 5.6 L White Blood Count 7.5 # Medications Medications Current Medications Acyclovir (Zovirax) 400 mg BID PO Last administered on 07/07/16 08:44; Admin Dose 400 MG; Start 06/02/16 at 14:30 Diphenhydramine HCl (Benadryl) 25 mg Q4H PRN IV ALLERGIC REACTION Last administered on 06/06/16 20:26; Admin Dose 25 MG; Start 06/02/16 at 18:30 Dexamethasone 10 mg 10 mg Q4H PRN IV ALLERGIC REACTION; Start 06/02/16 at 18: 30 Ondansetron HCl/ Sodium Chloride (Zofran Inj/NS) 54 ml @ 216 mls/hr Q6H PRN IV NAUSEA AND/OR VOMITING Last administered on 07/04/16 01:24; Admin Dose 216 MLS/HR; Start 06/02/16 at 18:30 Ondansetron HCl (Zofran Inj) 4 mg Q6H PRN IV NAUSEA AND/OR VOMITING Last administered on 07/07/16 11:16; Admin Dose 4 MG; Start 06/03/16 at 17:00 Acetaminophen (Tylenol Tab) 650 mg Q6H PRN PO PAIN LEVEL 1-3 OR FEVER Last administered on 07/03/16 18:37; Admin Dose 650 MG; Start 06/03/16 at 17:00 Acetaminophen (Tylenol Supp) 650 mg Q6H PRN [place] PAIN LEVEL 1-3 OR FEVER Last administered on 06/09/16 03:37; Admin Dose 650 MG; Start 06/03/16 at 17:00 Docusate Sodium (Colace) 100 mg Q12H PRN PO CONSTIPATION Last administered on 06/20/16 22:25; Admin Dose 100 MG; Start 06/03/16 at 17:00 Magnesium Hydroxide (Milk Of Mag) 30 ml DAILY PRN PO CONSTIPATION Last administered on 06/20/16 06:13; Admin Dose 30 ML; Start 06/03/16 at 17:00 Bisacodyl (Dulcolax) 5 mg DAILY PRN PO CONSTIPATION; Start 06/03/16 at 17:00 Bisacodyl (Dulcolax Supp) 10 mg DAILY PRN [place] CONSTIPATION Last administered on 06/21/16 05:18; Admin Dose 10 MG; Start 06/03/16 at 17:00 Sodium Biphosphate/ Sodium Phosphate (Fleet Enema) 133 ml DAILY PRN [place] CONSTIPATION; Start 06/03/16 at 17:00 Enoxaparin Sodium (Lovenox) 30 mg DAILY SC Last administered on 06/12/16at 08: 27; Admin Dose 30 MG; Start 06/04/16 at 09:00; Status Future Hold Allopurinol (Zyloprim) 300 mg DAILY PO Last administered on 07/07/16 08:44; Admin Dose 300 MG; Start 06/04/16 at 09:00 Eye Lubricant (Artificial Tears Oph) 2 drop QID BOTH EYES Last administered on 07/07/16 12:44; Admin Dose 2 DROP; Start 06/03/16 at 21:00 Eye Lubricant ([place] Oint) 1 applic DAILY BOTH EYES Last administered on 08:44; Admin Dose 1 APPLIC; Start 06/04/16 at 09:00 Gabapentin (Neurontin) 200 mg TID PO Last administered on 07/07/16 12:44; Admin Dose 200 MG; Start 06/03/16 at 21:00 Levothyroxine Sodium (Synthroid) 100 mcg DAILY@06 PO Last administered on 05:59; Admin Dose 100 MCG; Start 06/04/16 at 06:00 Pantoprazole (Protonix Iv) 40 mg DAILY@06 IV Last administered on 07/07/16 05: 59; Admin Dose 40 MG; Start 06/09/16 at 06:00 Lorazepam (Ativan) 1 mg Q6H PRN IV AGITATION/ANXIETY Last administered on 02:48; Admin Dose 1 MG; Start 06/08/16 at 18:00 Acetaminophen/ Hydrocodone Bitart ([place] (5/325)) 1 tab Q6H PRN PO PAIN Last administered on 06/11/16at 17:38; Admin Dose 1 TAB; Start 06/11/16 at 17:30 Collagenase (Santyl) 1 applic DAILY TOP Last administered on 07/07/16 08:45; Admin Dose 1 APPLIC; Start 06/12/16 at 09:00 Nystatin (Nystatin Susp) 5 ml QID PO Last administered on 07/07/16 12:44; Admin Dose 5 ML; Start 06/18/16 at 17:00 Scopolamine (Transderm-Scop) 1 patch Q72H TRANSDERM Last administered on 20:18; Admin Dose 1 PATCH; Start 06/22/16 at 21:00 Fluconazole 100 mg 100 mg DAILY PO Last administered on 07/07/16 08:44; Admin Dose 100 MG; Start 06/28/16 at 09:00 Sodium Chloride (NS) 1,000 ml @ 100 mls/hr Q10H IV Last administered on 21:50; Admin Dose 100 MLS/HR; Start 07/01/16 at 19:00 Lactobacillus Acidoph/Bulgaricus (Floranex) 1 tab BID PO Last administered on 08:44; Admin Dose 1 TAB; Start 07/01/16 at 21:00 Potassium Chloride (Klor-Con 20) 20 meq BID PO Last administered on 07/07/16 08:44; Admin Dose 20 MEQ; Start 07/03/16 at 21:00 Ibuprofen (Motrin) 600 mg TID PRN PO FEVER Last administered on 07/04/16 01:29 ; Admin Dose 600 MG; Start 07/03/16 at 19:30 Filgrastim 480 mcg 480 mcg DAILY@17 SC Last administered on 07/06/16 18:07; Admin Dose 480 MCG; Start 07/06/16 at 17:00; Stop 07/10/16 at 17:01 Vancomycin HCl (Vancocin) 250 ml @ 125 mls/hr Q8H IVPB Last administered on 10:23; Admin Dose 125 MLS/HR; Start 07/05/16 at 02:00 Miscellaneous Information (*Rx Drug Level Order Reminder*) VANCOMYCIN TROUGH AT 1700 ONCE ONCE XX ; Start 07/07/16 at 17:00; Stop 07/07/16 at 17:01 Fosfomycin Tromethamine (Monurol) 3 gm ONCE ONCE PO ; Start 07/07/16 at 16:00; Stop 07/07/16 at 16:01 Gentamicin Sulfate (Gentamicin Iv Per Pharmacy) GENTAMICIN PER PHARM... NOTE XX ; Start 07/07/16 at 14:30; Stop 07/09/16 at 22:00 CHANDRIKA MERLOS M.D. Jul 07, 2016 14:48
[2016-07-07] MEDS: ONDANSETRON INJ 8 MG in SOD CHLORIDE 0.9% 50 ML IV PRN ×2 (15:01→21:05)
[2016-07-07] MEDS ORDERED: FOSFOMYCIN 3 GM PACKET PO ONE (16:00)
[2016-07-07] MEDS: GENTAMICIN 300 MG in SOD CHLORIDE 0.9% 100 ML IVPB SCH (16:47)
--- NOTE | 2016-07-07 19:25 | PN ---
Date/Time of Note Date/Time of Note DATE: 07/07/16 TIME: 19:24 Assessment/Plan VTE Prophylaxis VTE Prophylaxis Intervention: other Lines/Catheters IV Catheter Type (from Nrs): PICC Line Central line still needed: Yes Urinary Cath still in place: No Assessment/Plan Chief Complaint/Hosp Course IMPRESSION: The patient has Burkitt's lymphoma status post tracheostomy, status post thyroid mass, status post pancytopenia, abnormal liver function test. better SEPSIS better gallstone ABN LFT better anemia post chemo better PLAN per oncology LABS chemo Problems: Subjective 24 Hr Interval Summary Constitutional: other (weakness,no nausea) Exam/Review of Systems Vital Signs Vitals Vital Signs Date Time Temp Pulse Resp B/P Pulse Ox O2 Delivery O2 Flow Rate FiO2 07/07/16 17:41 5.0 28 07/07/16 17:41 89 20 98 Aerosol 07/07/16 08:25 98.1 107/68 Intake and Output 07/06/16 07/06/16 07/07/16 15:00 23:00 07:00 Intake Total 1840 ml 1210 ml Output Total 1200 ml 1600 ml Balance 640 ml -390 ml Exam Neck: supple Respiratory: clear to auscultation Cardiovascular: regular rate and rhythm Gastrointestinal: bowel sounds (+), non-tender, soft Results Result Diagram: 07/07/16 0435 07/07/16 0435 Results 24 hrs Laboratory Tests Test 07/07/16 04:35 07/07/16 17:20 Alanine Aminotransferase (ALT/SGPT) 75 H Albumin 3.0 L Albumin/Globulin Ratio 1.15 Alkaline Phosphatase 136 H Anion Gap 17 H Aspartate Amino Transf (AST/SGOT) 73 H Basophils # Basophils % Blood Morphology Comment Blood Urea Nitrogen 7 Calcium Level 9.1 Carbon Dioxide Level 22 Chloride Level 106 Creatinine 0.32 L Differential Comment MANUAL DIFF Direct Bilirubin 0.00 Eosinophils # Eosinophils % Globulin 2.60 Glucose Level 82 Hematocrit 31.6 L Hemoglobin 11.0 L Indirect Bilirubin 0.3 Lymphocytes # 0.1 L Lymphocytes % 1.0 L Mean Corpuscular Hemoglobin 30.2 Mean Corpuscular Hemoglobin Concent 34.7 Mean Corpuscular Volume 87.0 Mean Platelet Volume 6.9 L Monocytes # Monocytes % Neutrophils # 7.4 Neutrophils % 99.0 H Nucleated Red Blood Cells # Nucleated Red Blood Cells % Platelet Count 167 Potassium Level 3.9 Red Blood Count 3.63 L Red Cell Distribution Width 17.4 H Sodium Level 141 Total Bilirubin 0.3 Total Protein 5.6 L White Blood Count 7.5 # Vancomycin Level Trough 22.3 *H Medications Medications Current Medications Acyclovir (Zovirax) 400 mg BID PO Last administered on 07/07/16 08:44; Admin Dose 400 MG; Start 06/02/16 at 14:30 Diphenhydramine HCl (Benadryl) 25 mg Q4H PRN IV ALLERGIC REACTION Last administered on 06/06/16 20:26; Admin Dose 25 MG; Start 06/02/16 at 18:30 Dexamethasone 10 mg 10 mg Q4H PRN IV ALLERGIC REACTION; Start 06/02/16 at 18: 30 Ondansetron HCl/ Sodium Chloride (Zofran Inj/NS) 54 ml @ 216 mls/hr Q6H PRN IV NAUSEA AND/OR VOMITING Last administered on 07/07/16 15:01; Admin Dose 216 MLS/HR; Start 06/02/16 at 18:30 Ondansetron HCl (Zofran Inj) 4 mg Q6H PRN IV NAUSEA AND/OR VOMITING Last administered on 07/07/16 11:16; Admin Dose 4 MG; Start 06/03/16 at 17:00 Acetaminophen (Tylenol Tab) 650 mg Q6H PRN PO PAIN LEVEL 1-3 OR FEVER Last administered on 07/03/16 18:37; Admin Dose 650 MG; Start 06/03/16 at 17:00 Acetaminophen (Tylenol Supp) 650 mg Q6H PRN [place] PAIN LEVEL 1-3 OR FEVER Last administered on 06/09/16 03:37; Admin Dose 650 MG; Start 06/03/16 at 17:00 Docusate Sodium (Colace) 100 mg Q12H PRN PO CONSTIPATION Last administered on 06/20/16 22:25; Admin Dose 100 MG; Start 06/03/16 at 17:00 Magnesium Hydroxide (Milk Of Mag) 30 ml DAILY PRN PO CONSTIPATION Last administered on 06/20/16 06:13; Admin Dose 30 ML; Start 06/03/16 at 17:00 Bisacodyl (Dulcolax) 5 mg DAILY PRN PO CONSTIPATION; Start 06/03/16 at 17:00 Bisacodyl (Dulcolax Supp) 10 mg DAILY PRN [place] CONSTIPATION Last administered on 06/21/16at 05:18; Admin Dose 10 MG; Start 06/03/16 at 17:00 Sodium Biphosphate/ Sodium Phosphate (Fleet Enema) 133 ml DAILY PRN [place] CONSTIPATION; Start 06/03/16 at 17:00 Enoxaparin Sodium (Lovenox) 30 mg DAILY SC Last administered on 06/12/16at 08: 27; Admin Dose 30 MG; Start 06/04/16 at 09:00; Status Future Hold Allopurinol (Zyloprim) 300 mg DAILY PO Last administered on 07/07/16 08:44; Admin Dose 300 MG; Start 06/04/16 at 09:00 Eye Lubricant (Artificial Tears Oph) 2 drop QID BOTH EYES Last administered on 07/07/16 12:44; Admin Dose 2 DROP; Start 06/03/16 at 21:00 Eye Lubricant (Akwa Oint) 1 applic DAILY BOTH EYES Last administered on 08:44; Admin Dose 1 APPLIC; Start 06/04/16 at 09:00 Gabapentin (Neurontin) 200 mg TID PO Last administered on 07/07/16 12:44; Admin Dose 200 MG; Start 06/03/16 at 21:00 Levothyroxine Sodium (Synthroid) 100 mcg DAILY@06 PO Last administered on 05:59; Admin Dose 100 MCG; Start 06/04/16 at 06:00 Pantoprazole (Protonix Iv) 40 mg DAILY@06 IV Last administered on 07/07/16 05: 59; Admin Dose 40 MG; Start 06/09/16 at 06:00 Lorazepam (Ativan) 1 mg Q6H PRN IV AGITATION/ANXIETY Last administered on 02:48; Admin Dose 1 MG; Start 06/08/16 at 18:00 Acetaminophen/ Hydrocodone Bitart ([place] (5/325)) 1 tab Q6H PRN PO PAIN Last administered on 06/11/16at 17:38; Admin Dose 1 TAB; Start 06/11/16 at 17:30 Collagenase (Santyl) 1 applic DAILY TOP Last administered on 07/07/16 08:45; Admin Dose 1 APPLIC; Start 06/12/16 at 09:00 Nystatin (Nystatin Susp) 5 ml QID PO Last administered on 07/07/16 12:44; Admin Dose 5 ML; Start 06/18/16 at 17:00 Scopolamine (Transderm-Scop) 1 patch Q72H TRANSDERM Last administered on 20:18; Admin Dose 1 PATCH; Start 06/22/16 at 21:00 Fluconazole 100 mg 100 mg DAILY PO Last administered on 07/07/16 08:44; Admin Dose 100 MG; Start 06/28/16 at 09:00 Sodium Chloride (NS) 1,000 ml @ 100 mls/hr Q10H IV Last administered on 16:48; Admin Dose 100 MLS/HR; Start 07/01/16 at 19:00 Lactobacillus Acidoph/Bulgaricus (Floranex) 1 tab BID PO Last administered on 08:44; Admin Dose 1 TAB; Start 07/01/16 at 21:00 Potassium Chloride (Klor-Con 20) 20 meq BID PO Last administered on 07/07/16 08:44; Admin Dose 20 MEQ; Start 07/03/16 at 21:00 Ibuprofen (Motrin) 600 mg TID PRN PO FEVER Last administered on 07/04/16 01:29 ; Admin Dose 600 MG; Start 07/03/16 at 19:30 Filgrastim (Neupogen) 480 mcg DAILY@17 SC Last administered on 07/06/16 18:07 ; Admin Dose 480 MCG; Start 07/06/16 at 17:00; Stop 07/10/16 at 17:01 Gentamicin Sulfate GENTAMICIN PER PHARM... NOTE XX ; Start 07/07/16 at 14:30; Stop 07/09/16 at 22:00 Gentamicin Sulfate 300 mg/ Sodium Chloride 107.5 ml @ 103.75 mls/ hr Q24H IVPB Last administered on 07/07/16 16:47; Admin Dose 103.75 MLS/HR; Start at 16:00; Stop 07/09/16 at 17:03 Vancomycin HCl/ Sodium Chloride (Vancocin/NS) 250 ml @ 83.333 mls/ hr Q12H IVPB ; Start 07/07/16 at 22:00 GUERLINE SULLIVAN MD Jul 07, 2016 19:25
[2016-07-07 20:02] VITALS: BP 100/68; RESP 20
[2016-07-07] MEDS: FILGRASTIM 480 MCG INJ SC SCH (21:07)
[2016-07-07] MEDS: SCOPOLAMINE 1.5 MG PATCH TRANSDERM SCH (21:07)
[2016-07-07] MEDS: VANCOMYCIN 1.25 GM in SOD CHLORIDE 0.9% 250 ML IVPB SCH (21:57)
[2016-07-08] MEDS: ALBUTEROL/IPRATROPIUM (NEB) 3 ML AMP HHN SCH ×6 (00:06→20:18)
[2016-07-08] MEDS: SOD CHLORIDE 0.9% 1,000 ML IV SCH ×3 (01:00→21:21)
[2016-07-08] MEDS: PANTOPRAZOLE 40 MG INJ IV SCH (05:42)
[2016-07-08] MEDS: LEVOTHYROXINE 100 MCG TAB PO SCH (05:42)
[2016-07-08 08:18] VITALS: BP 111/67; RESP 20
[2016-07-08] MEDS: NYSTATIN SUSP 5 ML CUP PO SCH ×4 (09:18→21:23)
[2016-07-08] MEDS: LACTOBACILLUS CHEW TAB PO SCH ×2 (09:18→21:22)
[2016-07-08] MEDS: ACYCLOVIR 400 MG TAB PO SCH ×2 (09:18→21:23)
[2016-07-08] MEDS: GABAPENTIN 100 MG CAP PO SCH ×3 (09:18→21:22)
[2016-07-08] MEDS: POTASSIUM CHLORIDE (SR) 20 MEQ TAB PO SCH ×2 (09:18→21:25)
[2016-07-08] MEDS: FLUCONAZOLE 100 MG TAB PO SCH (09:18)
[2016-07-08] MEDS: COLLAGENASE 30 GM TUBE TOP SCH (09:19)
[2016-07-08] MEDS: OCULAR LUBRICANT 3.5 GM OPH OINT BOTH EYES SCH (09:19)
[2016-07-08] MEDS: ARTIFICIAL TEARS 15 ML OPH BOTH EYES SCH ×4 (09:19→21:22)
[2016-07-08] MEDS: ALLOPURINOL 300 MG TAB PO SCH (09:20)
[2016-07-08] MEDS: ONDANSETRON INJ 8 MG in SOD CHLORIDE 0.9% 50 ML IV PRN ×2 (09:33→20:35)
[2016-07-08] MEDS: VANCOMYCIN 1.25 GM in SOD CHLORIDE 0.9% 250 ML IVPB SCH ×2 (11:10→21:22)
[2016-07-08 11:48] LABS: HEMATOCRIT 32.7 % (37.0-47.0); HEMOGLOBIN 11.1 g/dl (12.0-16.0); MEAN CORPUSCULAR HEMOGLOBIN 29.6 pg (29.0-33.0); MEAN CORPUSCULAR HGB CONC 33.8 g/dl (32.0-37.0); MEAN CORPUSCULAR VOLUME 87.6 fl (82.0-101.0); PLATELET COUNT 97 10^3/UL (140-440); POTASSIUM 3.7 mmol/L (3.5-5.1); RED BLOOD COUNT 3.73 10^6/ul (4.20-5.40); RED CELL DISTRIBUTION WIDTH 17.1 % (11.5-14.5); UNCORRECTED WBC 1.4 10^3/ul (4.8-10.8); WHITE BLOOD COUNT 1.4 10^3/ul (4.8-10.8)
[2016-07-08 11:50] LABS: CREATININE 0.33 mg/dl (0.44-1.00)
[2016-07-08 11:51] LABS: CALCIUM 9.1 mg/dl (8.4-10.2)
[2016-07-08 11:59] LABS: CONDITION 1; LH ANALYZER COMMENTS 1
--- NOTE | 2016-07-08 12:28 | PN ---
DATE: 07/08/2016 SUBJECTIVE: No acute events overnight. The patient is alert, feels okay, complaining of nausea sta tus post vomiting, no fevers. She is ambulating with physical therapy. LABORATORIES: No labs this morning and no fevers. ANTIMICROBIALS: 1. Gentamicin, started yesterday. 2. Vancomycin. 3. Fluconazole. 4. Oral nystatin. 5. Acyclovir. INDWELLINGS: PICC line. PHYSICAL EXAMINATION: GENERAL: Chronically ill-appearing, wasted, middle-aged woman who is awake, in no distress. HEENT: Head atraumatic, normocephalic. Sclerae anicteric. Buccal mucosa dry. NECK: Supple. CHEST: Rise symmetrical. Breath sounds diminished to bases. HEART: S1, S2. ABDOMEN: Soft, bowel tones present. EXTREMITIES: Without cyanosis. ASSESSMENT: 1. Systemic inflammatory response syndrome. 2. Urinary tract infection with urine culture grew small amount of Pseudomonas aeruginosa, started on gentamicin. 3. Methicillin-resistant Staphylococcus aureus positive sputum status post pneumonia. 4. Status post coagulase-negative staph bacteremia consistent with contaminant. 5. History of methicillin-resistant Staphylococcus aureus positive nares colonization. 6. Stage IIIA Burkitt's lymphoma, in chemotherapy per oncology. 7. Respiratory failure, status post tracheostomy secondary to neck mass. PLAN: The patient remains stable, no fevers. Continue present care, antibiotics, monitor renal fun ction and follow hematology/oncology recommendations. Dictated By: RODRÍGUEZ ERAZO [employer] INSPECTOR for JILLIAN CUEVAS/YUNI Conf#: [id number] DID#: [id number]
[2016-07-08 14:20] LABS: LYMPHOCYTES # 0.1 10^3/ul (0.8-2.9); NEUTROPHIL # 1.3 10^3/ul (1.6-7.5)
--- NOTE | 2016-07-08 15:07 | CONS ---
Date/Time of Note Date/Time of Note DATE: 07/08/16 TIME: 15:05 Assessment/Plan Assessment/Plan Chief Complaint/Hosp Course 56 yo female with massive neck mass causing tracheal compression and airway compromise s/p tracheostomy placement. 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 Pt was given cycle 1A and 1B of R HyperCVAD but had only a partial response to therapy and severe side effects. We have thus changed her chemotherapy regimen. She is now s/p cycle 1A of R-CODOX-M and has now completed her chemotherapy. Most recent CT neck showed resolution of the mass. Pt's counts are now improving and she is no longer transfusion dependant. She has since started Cycle 1B and is receiving R-IVAC Problems: Additional Assessment/Plan # Burkitt's lymphoma - currently day 7 cycle 1B R -IVAC. chemotherapy regimen is as follows Part 2: R-IVAC Rituximab (Rituxan) 375 mg/m2 IV once on day 1 Ifosfamide (Ifex) 1500 mg/m2 IV over 2 hours once per day on days 1 to 5 Etoposide (Vepesid) 60 mg/m2 IV over 1 hour once per day on days 1 to 5 Cytarabine (Cytosar) 2 g/m2 IV over 3 hours Q12H on days 1 & 2 (4 doses total) [place] (Mesnex) 300 mg/m2 (mixed with Ifosfamide (Ifex)) , then 300mg/m2 IV every four hours x 2, on days 1 to 5 # Neutropenic fevers -appreciate ID recs. continue meropenem and vancomycin -f/u blood and urine cultures # Supportive Care and prophylactic meds -Started Acyclovir 400mg BID -fluconazole 100mg q day -Neupogen 300mcg q day day after chemotherapy is completed -Zofran ordered prn nausea #Expected Pancytopenia -keep Hg> 8 and platelets > 10. pt to get 1 units of prbc today # Elevated AST and ALT, likely related to methotrexate. 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 all steroids should be discontinued for now unless they are part of the chemotherapy regimen -continue to work with physical therapy. 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 -uric acid level ok Approximately 40 min were spent at patient's bedside and in coordination of her care Consultation Date/Type/Reason Admit Date/Time Jun 02, 2016 at 15:10 Initial Consult Date 06/02/16 Type of Consultation: Hematology Reason for Consultation Burkitt's lymphoma Referring Provider: TELLY SOLANO MD 24 HR Interval Summary Free Text/Dictation pt c/o nausea Constitutional: no complaints Exam/Review of Systems Vital Signs Vitals Vital Signs Date Time Temp Pulse Resp B/P Pulse Ox O2 Delivery O2 Flow Rate FiO2 07/08/16 13:22 99 5.0 28 07/08/16 13:22 87 18 Aerosol Mask 07/08/16 08:18 97.5 111/67 Intake and Output 07/07/16 07/07/16 07/08/16 15:00 23:00 07:00 Intake Total 2025 ml 450 ml Output Total 1500 ml 750 ml Balance 525 ml -300 ml Exam Constitutional: alert, oriented Psych: no complaints Head: normocephalic Eyes: nl conjunctiva ENMT: nl external ears & nose, nl lips & teeth Neck: non-tender, other (trach in place), supple Respiratory: clear to auscultation, normal air movement Cardiovascular: regular rate and rhythm Gastrointestinal: soft Musculoskeletal: nl extremities to inspection, nl gait and stance Extremities: normal pulses Results Result Diagram: 07/08/16 1115 07/08/16 1115 Results 24 hrs Laboratory Tests Test 07/07/16 17:20 07/08/16 11:15 Vancomycin Level Trough 22.3 *H Anion Gap 14 Blood Morphology Comment Blood Urea Nitrogen 7 Calcium Level 9.1 Carbon Dioxide Level 22 Chloride Level 105 Creatinine 0.33 L Eosinophils # 0.0 Eosinophils % 1.0 Glucose Level 87 Hematocrit 32.7 L Hemoglobin 11.1 L Lymphocytes # 0.1 L Lymphocytes % 7.0 L Mean Corpuscular Hemoglobin 29.6 Mean Corpuscular Hemoglobin Concent 33.8 Mean Corpuscular Volume 87.6 Mean Platelet Volume 7.0 L Neutrophils # 1.3 L Neutrophils % 92.0 H Platelet Count 97 #L Potassium Level 3.7 Red Blood Count 3.73 L Red Cell Distribution Width 17.1 H Sodium Level 137 White Blood Count 1.4 #L Medications Medications Current Medications Acyclovir (Zovirax) 400 mg BID PO Last administered on 07/08/16t 09:18; Admin Dose 400 MG; Start 06/02/16 at 14:30 Diphenhydramine HCl (Benadryl) 25 mg Q4H PRN IV ALLERGIC REACTION Last administered on 06/06/16at 20:26; Admin Dose 25 MG; Start 06/02/16 at 18:30 Dexamethasone 10 mg 10 mg Q4H PRN IV ALLERGIC REACTION; Start 06/02/16 at 18: 30 Ondansetron HCl/ Sodium Chloride (Zofran Inj/NS) 54 ml @ 216 mls/hr Q6H PRN IV NAUSEA AND/OR VOMITING Last administered on 07/08/16 09:33; Admin Dose 216 MLS/HR; Start 06/02/16 at 18:30 Ondansetron HCl (Zofran Inj) 4 mg Q6H PRN IV NAUSEA AND/OR VOMITING Last administered on 07/07/16 11:16; Admin Dose 4 MG; Start 06/03/16 at 17:00 Acetaminophen (Tylenol Tab) 650 mg Q6H PRN PO PAIN LEVEL 1-3 OR FEVER Last administered on 07/03/16 18:37; Admin Dose 650 MG; Start 06/03/16 at 17:00 Acetaminophen (Tylenol Supp) 650 mg Q6H PRN [place] PAIN LEVEL 1-3 OR FEVER Last administered on 06/09/16 03:37; Admin Dose 650 MG; Start 06/03/16 at 17:00 Docusate Sodium (Colace) 100 mg Q12H PRN PO CONSTIPATION Last administered on 06/20/16at 22:25; Admin Dose 100 MG; Start 06/03/16 at 17:00 Magnesium Hydroxide (Milk Of Mag) 30 ml DAILY PRN PO CONSTIPATION Last administered on 06/20/16at 06:13; Admin Dose 30 ML; Start 06/03/16 at 17:00 Bisacodyl (Dulcolax) 5 mg DAILY PRN PO CONSTIPATION; Start 06/03/16 at 17:00 Bisacodyl (Dulcolax Supp) 10 mg DAILY PRN [place] CONSTIPATION Last administered on 06/21/16at 05:18; Admin Dose 10 MG; Start 06/03/16 at 17:00 Sodium Biphosphate/ Sodium Phosphate (Fleet Enema) 133 ml DAILY PRN [place] CONSTIPATION; Start 06/03/16 at 17:00 Enoxaparin Sodium (Lovenox) 30 mg DAILY SC Last administered on 06/12/16at 08: 27; Admin Dose 30 MG; Start 06/04/16 at 09:00; Status Future Hold Allopurinol (Zyloprim) 300 mg DAILY PO Last administered on 07/08/16 09:20; Admin Dose 300 MG; Start 06/04/16 at 09:00 Eye Lubricant (Artificial Tears Oph) 2 drop QID BOTH EYES Last administered on 07/08/16 14:35; Admin Dose 2 DROP; Start 06/03/16 at 21:00 Eye Lubricant (Akwa Oint) 1 applic DAILY BOTH EYES Last administered on 09:19; Admin Dose 1 APPLIC; Start 06/04/16 at 09:00 Gabapentin (Neurontin) 200 mg TID PO Last administered on 07/08/16 14:35; Admin Dose 200 MG; Start 06/03/16 at 21:00 Levothyroxine Sodium (Synthroid) 100 mcg DAILY@06 PO Last administered on 05:42; Admin Dose 100 MCG; Start 06/04/16 at 06:00 Pantoprazole (Protonix Iv) 40 mg DAILY@06 IV Last administered on 07/08/16 05: 42; Admin Dose 40 MG; Start 06/09/16 at 06:00 Lorazepam (Ativan) 1 mg Q6H PRN IV AGITATION/ANXIETY Last administered on 02:48; Admin Dose 1 MG; Start 06/08/16 at 18:00 Acetaminophen/ Hydrocodone Bitart ([place] (5/325)) 1 tab Q6H PRN PO PAIN Last administered on 06/11/16at 17:38; Admin Dose 1 TAB; Start 06/11/16 at 17:30 Collagenase (Santyl) 1 applic DAILY TOP Last administered on 07/08/16 09:19; Admin Dose 1 APPLIC; Start 06/12/16 at 09:00 Nystatin (Nystatin Susp) 5 ml QID PO Last administered on 07/08/16 09:18; Admin Dose 5 ML; Start 06/18/16 at 17:00 Scopolamine (Transderm-Scop) 1 patch Q72H TRANSDERM Last administered on 21:07; Admin Dose 1 PATCH; Start 06/22/16 at 21:00 Fluconazole 100 mg 100 mg DAILY PO Last administered on 07/08/16 09:18; Admin Dose 100 MG; Start 06/28/16 at 09:00 Sodium Chloride (NS) 1,000 ml @ 100 mls/hr Q10H IV Last administered on 06:37; Admin Dose 100 MLS/HR; Start 07/01/16 at 19:00 Lactobacillus Acidoph/Bulgaricus (Floranex) 1 tab BID PO Last administered on 09:18; Admin Dose 1 TAB; Start 07/01/16 at 21:00 Potassium Chloride (Klor-Con 20) 20 meq BID PO Last administered on 07/08/16 09:18; Admin Dose 20 MEQ; Start 07/03/16 at 21:00 Ibuprofen (Motrin) 600 mg TID PRN PO FEVER Last administered on 07/04/16 01:29 ; Admin Dose 600 MG; Start 07/03/16 at 19:30 Filgrastim (Neupogen) 480 mcg DAILY@17 SC Last administered on 07/07/16 21:07 ; Admin Dose 480 MCG; Start 07/06/16 at 17:00; Stop 07/10/16 at 17:01 Gentamicin Sulfate GENTAMICIN PER PHARM... NOTE XX ; Start 07/07/16 at 14:30; Stop 07/09/16 at 22:00 Gentamicin Sulfate 300 mg/ Sodium Chloride 107.5 ml @ 103.75 mls/ hr Q24H IVPB Last administered on 07/07/16 16:47; Admin Dose 103.75 MLS/HR; Start at 16:00; Stop 07/09/16 at 17:03 Vancomycin HCl/ Sodium Chloride (Vancocin/NS) 250 ml @ 83.333 mls/ hr Q12H IVPB Last administered on 07/08/16 11:10; Admin Dose 83.333 MLS/HR; Start at 22:00 Miscellaneous Information (*Rx Drug Level Order Reminder*) 1 ONCE ONCE XX ; Start 07/09/16 at 09:00; Stop 07/09/16 at 09:01 CHANDRIKA MERLOS M.D. Jul 08, 2016 15:06
--- NOTE | 2016-07-08 15:51 | PN ---
Date/Time of Note Date/Time of Note DATE: 07/08/16 TIME: 15:50 Assessment/Plan VTE Prophylaxis VTE Prophylaxis Intervention: other Lines/Catheters IV Catheter Type (from Nrs): PICC Line Central line still needed: Yes Urinary Cath still in place: No Assessment/Plan Chief Complaint/Hosp Course IMPRESSION: The patient has Burkitt's lymphoma status post tracheostomy, status post thyroid mass, pancytopenia, abnormal liver function test. better SEPSIS better gallstone ABN LFT better anemia post chemo uti pancytopenia PLAN per oncology LABS chemo per id Problems: Subjective 24 Hr Interval Summary Respiratory: no complaints Cardiovascular: no complaints Exam/Review of Systems Vital Signs Vitals Vital Signs Date Time Temp Pulse Resp B/P Pulse Ox O2 Delivery O2 Flow Rate FiO2 07/08/16 13:22 99 5.0 28 07/08/16 13:22 87 18 Aerosol Mask 07/08/16 08:18 97.5 111/67 Intake and Output 07/07/16 07/07/16 07/08/16 15:00 23:00 07:00 Intake Total 2025 ml 450 ml Output Total 1500 ml 750 ml Balance 525 ml -300 ml Exam Neck: supple Respiratory: clear to auscultation Cardiovascular: regular rate and rhythm Gastrointestinal: bowel sounds (+), soft Extremities: normal pulses Results Result Diagram: 07/08/16 1115 07/08/16 1115 Results 24 hrs Laboratory Tests Test 07/07/16 17:20 07/08/16 11:15 Vancomycin Level Trough 22.3 *H Anion Gap 14 Blood Morphology Comment Blood Urea Nitrogen 7 Calcium Level 9.1 Carbon Dioxide Level 22 Chloride Level 105 Creatinine 0.33 L Eosinophils # 0.0 Eosinophils % 1.0 Glucose Level 87 Hematocrit 32.7 L Hemoglobin 11.1 L Lymphocytes # 0.1 L Lymphocytes % 7.0 L Mean Corpuscular Hemoglobin 29.6 Mean Corpuscular Hemoglobin Concent 33.8 Mean Corpuscular Volume 87.6 Mean Platelet Volume 7.0 L Neutrophils # 1.3 L Neutrophils % 92.0 H Platelet Count 97 #L Potassium Level 3.7 Red Blood Count 3.73 L Red Cell Distribution Width 17.1 H Sodium Level 137 White Blood Count 1.4 #L Medications Medications Current Medications Acyclovir (Zovirax) 400 mg BID PO Last administered on 07/08/16t 09:18; Admin Dose 400 MG; Start 06/02/16 at 14:30 Diphenhydramine HCl (Benadryl) 25 mg Q4H PRN IV ALLERGIC REACTION Last administered on 06/06/16at 20:26; Admin Dose 25 MG; Start 06/02/16 at 18:30 Dexamethasone 10 mg 10 mg Q4H PRN IV ALLERGIC REACTION; Start 06/02/16 at 18: 30 Ondansetron HCl/ Sodium Chloride (Zofran Inj/NS) 54 ml @ 216 mls/hr Q6H PRN IV NAUSEA AND/OR VOMITING Last administered on 07/08/16 09:33; Admin Dose 216 MLS/HR; Start 06/02/16 at 18:30 Ondansetron HCl (Zofran Inj) 4 mg Q6H PRN IV NAUSEA AND/OR VOMITING Last administered on 07/07/16 11:16; Admin Dose 4 MG; Start 06/03/16 at 17:00 Acetaminophen (Tylenol Tab) 650 mg Q6H PRN PO PAIN LEVEL 1-3 OR FEVER Last administered on 07/03/16 18:37; Admin Dose 650 MG; Start 06/03/16 at 17:00 Acetaminophen (Tylenol Supp) 650 mg Q6H PRN [place] PAIN LEVEL 1-3 OR FEVER Last administered on 06/09/16 03:37; Admin Dose 650 MG; Start 06/03/16 at 17:00 Docusate Sodium (Colace) 100 mg Q12H PRN PO CONSTIPATION Last administered on 06/20/16 22:25; Admin Dose 100 MG; Start 06/03/16 at 17:00 Magnesium Hydroxide (Milk Of Mag) 30 ml DAILY PRN PO CONSTIPATION Last administered on 06/20/16at 06:13; Admin Dose 30 ML; Start 06/03/16 at 17:00 Bisacodyl (Dulcolax) 5 mg DAILY PRN PO CONSTIPATION; Start 06/03/16 at 17:00 Bisacodyl (Dulcolax Supp) 10 mg DAILY PRN [place] CONSTIPATION Last administered on 06/21/16at 05:18; Admin Dose 10 MG; Start 06/03/16 at 17:00 Sodium Biphosphate/ Sodium Phosphate (Fleet Enema) 133 ml DAILY PRN [place] CONSTIPATION; Start 06/03/16 at 17:00 Enoxaparin Sodium (Lovenox) 30 mg DAILY SC Last administered on 06/12/16at 08: 27; Admin Dose 30 MG; Start 06/04/16 at 09:00; Status Future Hold Allopurinol (Zyloprim) 300 mg DAILY PO Last administered on 07/08/16 09:20; Admin Dose 300 MG; Start 06/04/16 at 09:00 Eye Lubricant (Artificial Tears Oph) 2 drop QID BOTH EYES Last administered on 07/08/16 14:35; Admin Dose 2 DROP; Start 06/03/16 at 21:00 Eye Lubricant (Akwa Oint) 1 applic DAILY BOTH EYES Last administered on 09:19; Admin Dose 1 APPLIC; Start 06/04/16 at 09:00 Gabapentin (Neurontin) 200 mg TID PO Last administered on 07/08/16 14:35; Admin Dose 200 MG; Start 06/03/16 at 21:00 Levothyroxine Sodium (Synthroid) 100 mcg DAILY@06 PO Last administered on 05:42; Admin Dose 100 MCG; Start 06/04/16 at 06:00 Pantoprazole (Protonix Iv) 40 mg DAILY@06 IV Last administered on 07/08/16 05: 42; Admin Dose 40 MG; Start 06/09/16 at 06:00 Lorazepam (Ativan) 1 mg Q6H PRN IV AGITATION/ANXIETY Last administered on 02:48; Admin Dose 1 MG; Start 06/08/16 at 18:00 Acetaminophen/ Hydrocodone Bitart ([place] (5/325)) 1 tab Q6H PRN PO PAIN Last administered on 06/11/16at 17:38; Admin Dose 1 TAB; Start 06/11/16 at 17:30 Collagenase (Santyl) 1 applic DAILY TOP Last administered on 07/08/16 09:19; Admin Dose 1 APPLIC; Start 06/12/16 at 09:00 Nystatin (Nystatin Susp) 5 ml QID PO Last administered on 07/08/16 09:18; Admin Dose 5 ML; Start 06/18/16 at 17:00 Scopolamine (Transderm-Scop) 1 patch Q72H TRANSDERM Last administered on 21:07; Admin Dose 1 PATCH; Start 06/22/16 at 21:00 Fluconazole 100 mg 100 mg DAILY PO Last administered on 07/08/16 09:18; Admin Dose 100 MG; Start 06/28/16 at 09:00 Sodium Chloride (NS) 1,000 ml @ 100 mls/hr Q10H IV Last administered on 06:37; Admin Dose 100 MLS/HR; Start 07/01/16 at 19:00 Lactobacillus Acidoph/Bulgaricus (Floranex) 1 tab BID PO Last administered on 09:18; Admin Dose 1 TAB; Start 07/01/16 at 21:00 Potassium Chloride (Klor-Con 20) 20 meq BID PO Last administered on 07/08/16 09:18; Admin Dose 20 MEQ; Start 07/03/16 at 21:00 Ibuprofen (Motrin) 600 mg TID PRN PO FEVER Last administered on 07/04/16 01:29 ; Admin Dose 600 MG; Start 07/03/16 at 19:30 Filgrastim (Neupogen) 480 mcg DAILY@17 SC Last administered on 07/07/16 21:07 ; Admin Dose 480 MCG; Start 07/06/16 at 17:00; Stop 07/10/16 at 17:01 Gentamicin Sulfate GENTAMICIN PER PHARM... NOTE XX ; Start 07/07/16 at 14:30; Stop 07/09/16 at 22:00 Gentamicin Sulfate 300 mg/ Sodium Chloride 107.5 ml @ 103.75 mls/ hr Q24H IVPB Last administered on 07/07/16 16:47; Admin Dose 103.75 MLS/HR; Start at 16:00; Stop 07/09/16 at 17:03 Vancomycin HCl/ Sodium Chloride (Vancocin/NS) 250 ml @ 83.333 mls/ hr Q12H IVPB Last administered on 07/08/16 11:10; Admin Dose 83.333 MLS/HR; Start at 22:00 Miscellaneous Information (*Rx Drug Level Order Reminder*) 1 ONCE ONCE XX ; Start 07/09/16 at 09:00; Stop 07/09/16 at 09:01 GUERLINE SULLIVAN MD Jul 08, 2016 15:51
[2016-07-08] MEDS: GENTAMICIN 300 MG in SOD CHLORIDE 0.9% 100 ML IVPB SCH (16:44)
[2016-07-08] MEDS: ACETAMINOPHEN 325 MG TAB PO PRN (16:56)
[2016-07-08] MEDS: FILGRASTIM 480 MCG INJ SC SCH (16:57)
[2016-07-08 20:10] VITALS: RESP 20
[2016-07-09] MEDS: LORAZEPAM 2 MG INJ IV PRN ×2 (00:08→17:20)
[2016-07-09] MEDS: ALBUTEROL/IPRATROPIUM (NEB) 3 ML AMP HHN SCH ×4 (00:34→19:33)
[2016-07-09] MEDS: PANTOPRAZOLE 40 MG INJ IV SCH (05:32)
[2016-07-09] MEDS: LEVOTHYROXINE 100 MCG TAB PO SCH (05:33)
[2016-07-09] MEDS: SOD CHLORIDE 0.9% 1,000 ML IV SCH ×3 (07:00→17:00)
[2016-07-09 07:25] VITALS: BP 101/68; RESP 20
[2016-07-09] MEDS: FLUCONAZOLE 100 MG TAB PO SCH (08:29)
[2016-07-09] MEDS: POTASSIUM CHLORIDE (SR) 20 MEQ TAB PO SCH ×2 (08:29→21:14)
[2016-07-09] MEDS: LACTOBACILLUS CHEW TAB PO SCH ×2 (08:30→21:12)
[2016-07-09] MEDS: GABAPENTIN 100 MG CAP PO SCH ×3 (08:30→21:14)
[2016-07-09] MEDS: ACYCLOVIR 400 MG TAB PO SCH ×2 (08:30→21:14)
[2016-07-09] MEDS: ALLOPURINOL 300 MG TAB PO SCH (08:30)
[2016-07-09] MEDS: OCULAR LUBRICANT 3.5 GM OPH OINT BOTH EYES SCH (08:31)
[2016-07-09] MEDS: COLLAGENASE 30 GM TUBE TOP SCH (08:31)
[2016-07-09] MEDS: ARTIFICIAL TEARS 15 ML OPH BOTH EYES SCH ×4 (08:31→21:12)
[2016-07-09 10:01] LABS: HEMATOCRIT 29.9 % (37.0-47.0); HEMOGLOBIN 10.3 g/dl (12.0-16.0); MEAN CORPUSCULAR HEMOGLOBIN 29.8 pg (29.0-33.0); MEAN CORPUSCULAR HGB CONC 34.3 g/dl (32.0-37.0); MEAN CORPUSCULAR VOLUME 86.9 fl (82.0-101.0); PLATELET COUNT 61 10^3/UL (140-440); RED BLOOD COUNT 3.44 10^6/ul (4.20-5.40); RED CELL DISTRIBUTION WIDTH 16.1 % (11.5-14.5); UNCORRECTED WBC 0.2 10^3/ul (4.8-10.8); WHITE BLOOD COUNT 0.2 10^3/ul (4.8-10.8)
[2016-07-09 10:06] LABS: ALBUMIN 3.1 g/dl (3.3-4.9)
[2016-07-09 10:07] LABS: POTASSIUM 3.6 mmol/L (3.5-5.1)
[2016-07-09 10:09] LABS: ALBUMIN/GLOBULIN RATIO 1.29; BILIRUBIN,INDIRECT 0.3 mg/dl (0-1.1); BILIRUBIN,TOTAL 0.3 mg/dl (0.2-1.3); CREATININE 0.39 mg/dl (0.44-1.00); TOTAL PROTEIN 5.5 g/dl (6.1-8.1)
[2016-07-09 10:10] LABS: CALCIUM 8.9 mg/dl (8.4-10.2)
[2016-07-09 10:25] LABS: CONDITION 1; LH ANALYZER COMMENTS 1; SUSPECT 1
[2016-07-09] MEDS: VANCOMYCIN 1.25 GM in SOD CHLORIDE 0.9% 250 ML IVPB SCH ×2 (11:00→22:23)
[2016-07-09] MEDS: NYSTATIN SUSP 5 ML CUP PO SCH ×4 (11:00→21:14)
[2016-07-09 13:27] LABS: ANISOCYTOSIS 1+; NEUTROPHIL # 0.2 10^3/ul (1.6-7.5)
[2016-07-09] MEDS: ONDANSETRON INJ 8 MG in SOD CHLORIDE 0.9% 50 ML IV PRN (13:46)
--- NOTE | 2016-07-09 13:58 | CONS ---
Date/Time of Note Date/Time of Note DATE: 07/09/16 TIME: 13:57 Assessment/Plan Assessment/Plan Chief Complaint/Hosp Course 56 yo female with massive neck mass causing tracheal compression and airway compromise s/p tracheostomy placement. 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 Pt was given cycle 1A and 1B of R HyperCVAD but had only a partial response to therapy and severe side effects. We have thus changed her chemotherapy regimen. She is now s/p cycle 1A of R-CODOX-M and has now completed her chemotherapy. Most recent CT neck showed resolution of the mass. Pt's counts are now improving and she is no longer transfusion dependant. She has since started Cycle 1B and is receiving R-IVAC Problems: Additional Assessment/Plan # Burkitt's lymphoma - currently day 8 cycle 1B R -IVAC. chemotherapy regimen is as follows Part 2: R-IVAC Rituximab (Rituxan) 375 mg/m2 IV once on day 1 Ifosfamide (Ifex) 1500 mg/m2 IV over 2 hours once per day on days 1 to 5 Etoposide (Vepesid) 60 mg/m2 IV over 1 hour once per day on days 1 to 5 Cytarabine (Cytosar) 2 g/m2 IV over 3 hours Q12H on days 1 & 2 (4 doses total) [place] (Mesnex) 300 mg/m2 (mixed with Ifosfamide (Ifex)) , then 300mg/m2 IV every four hours x 2, on days 1 to 5 # Neutropenic fevers -appreciate ID recs. continue meropenem and vancomycin -f/u blood and urine cultures # Supportive Care and prophylactic meds -Started Acyclovir 400mg BID -fluconazole 100mg q day -Neupogen 300mcg q day day after chemotherapy is completed -Zofran ordered prn nausea #Expected Pancytopenia -keep Hg> 8 and platelets > 10. pt to get 1 units of prbc today # Elevated AST and ALT, likely related to methotrexate. 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 all steroids should be discontinued for now unless they are part of the chemotherapy regimen -continue to work with physical therapy. 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 -uric acid level ok Approximately 40 min were spent at patient's bedside and in coordination of her care Consultation Date/Type/Reason Admit Date/Time Jun 02, 2016 at 15:10 Initial Consult Date 06/02/16 Type of Consultation: Hematology Reason for Consultation Burkitt's lymphoma Referring Provider: TELLY SOLANO MD 24 HR Interval Summary Free Text/Dictation patient's nausea is improved Exam/Review of Systems Vital Signs Vitals Vital Signs Date Time Temp Pulse Resp B/P Pulse Ox O2 Delivery O2 Flow Rate FiO2 07/09/16 09:32 97 16 97 Aerosol Mask 5.0 28 07/09/16 07:25 98.0 101/68 Intake and Output 07/08/16 07/08/16 07/09/16 15:00 23:00 07:00 Intake Total 1711.5 ml 1224 ml Balance 1711.5 ml 1224 ml Exam Constitutional: alert, oriented Psych: anxiety, depression Head: normocephalic Eyes: nl conjunctiva Neck: other (trach in place) Respiratory: clear to auscultation, normal air movement Cardiovascular: nl pulses, regular rate and rhythm Gastrointestinal: soft Musculoskeletal: nl extremities to inspection, nl gait and stance Extremities: normal pulses Results Result Diagram: 07/09/1611 07/09/1611 Results 24 hrs Laboratory Tests Test 07/09/16 09:11 Alanine Aminotransferase (ALT/SGPT) 59 Albumin 3.1 L Albumin/Globulin Ratio 1.29 Alkaline Phosphatase 125 H Anion Gap 14 Anisocytosis 1+ Aspartate Amino Transf (AST/SGOT) 31 Basophils # Basophils % Blood Morphology Comment Blood Urea Nitrogen 5 L Calcium Level 8.9 Carbon Dioxide Level 22 Chloride Level 107 Creatinine 0.39 L Direct Bilirubin 0.00 Eosinophils # 0.0 Eosinophils % 20.0 H Globulin 2.40 Glucose Level 137 # Hematocrit 29.9 L Hemoglobin 10.3 L Indirect Bilirubin 0.3 Lactate Dehydrogenase 400 Lymphocytes # Lymphocytes % Mean Corpuscular Hemoglobin 29.8 Mean Corpuscular Hemoglobin Concent 34.3 Mean Corpuscular Volume 86.9 Mean Platelet Volume 7.0 L Monocytes # Monocytes % Neutrophils # 0.2 L Neutrophils % 80.0 H Platelet Count 61 #L Potassium Level 3.6 Red Blood Count 3.44 L Red Cell Distribution Width 16.1 H Sodium Level 139 Total Bilirubin 0.3 Total Protein 5.5 L Vancomycin Level Trough 16.6 White Blood Count 0.2 #L Medications Medications Current Medications Acyclovir (Zovirax) 400 mg BID PO Last administered on 07/09/16 08:30; Admin Dose 400 MG; Start 06/02/16 at 14:30 Diphenhydramine HCl (Benadryl) 25 mg Q4H PRN IV ALLERGIC REACTION Last administered on 06/06/16 20:26; Admin Dose 25 MG; Start 06/02/16 at 18:30 Dexamethasone 10 mg 10 mg Q4H PRN IV ALLERGIC REACTION; Start 06/02/16 at 18: 30 Ondansetron HCl/ Sodium Chloride (Zofran Inj/NS) 54 ml @ 216 mls/hr Q6H PRN IV NAUSEA AND/OR VOMITING Last administered on 07/09/16 13:46; Admin Dose 216 MLS/HR; Start 06/02/16 at 18:30 Ondansetron HCl (Zofran Inj) 4 mg Q6H PRN IV NAUSEA AND/OR VOMITING Last administered on 07/07/16 11:16; Admin Dose 4 MG; Start 06/03/16 at 17:00 Acetaminophen (Tylenol Tab) 650 mg Q6H PRN PO PAIN LEVEL 1-3 OR FEVER Last administered on 07/08/16 16:56; Admin Dose 650 MG; Start 06/03/16 at 17:00 Acetaminophen (Tylenol Supp) 650 mg Q6H PRN [place] PAIN LEVEL 1-3 OR FEVER Last administered on 06/09/16 03:37; Admin Dose 650 MG; Start 06/03/16 at 17:00 Docusate Sodium (Colace) 100 mg Q12H PRN PO CONSTIPATION Last administered on 06/20/16 22:25; Admin Dose 100 MG; Start 06/03/16 at 17:00 Magnesium Hydroxide (Milk Of Mag) 30 ml DAILY PRN PO CONSTIPATION Last administered on 06/20/16 06:13; Admin Dose 30 ML; Start 06/03/16 at 17:00 Bisacodyl (Dulcolax) 5 mg DAILY PRN PO CONSTIPATION; Start 06/03/16 at 17:00 Bisacodyl (Dulcolax Supp) 10 mg DAILY PRN [place] CONSTIPATION Last administered on 06/21/16 05:18; Admin Dose 10 MG; Start 06/03/16 at 17:00 Sodium Biphosphate/ Sodium Phosphate (Fleet Enema) 133 ml DAILY PRN [place] CONSTIPATION; Start 06/03/16 at 17:00 Enoxaparin Sodium (Lovenox) 30 mg DAILY SC Last administered on 06/12/16at 08: 27; Admin Dose 30 MG; Start 06/04/16 at 09:00; Status Future Hold Allopurinol (Zyloprim) 300 mg DAILY PO Last administered on 07/09/16 08:30; Admin Dose 300 MG; Start 06/04/16 at 09:00 Eye Lubricant (Artificial Tears Oph) 2 drop QID BOTH EYES Last administered on 07/09/16 13:20; Admin Dose 2 DROP; Start 06/03/16 at 21:00 Eye Lubricant (Akwa Oint) 1 applic DAILY BOTH EYES Last administered on 08:31; Admin Dose 1 APPLIC; Start 06/04/16 at 09:00 Gabapentin (Neurontin) 200 mg TID PO Last administered on 07/09/16 13:20; Admin Dose 200 MG; Start 06/03/16 at 21:00 Levothyroxine Sodium (Synthroid) 100 mcg DAILY@06 PO Last administered on 05:33; Admin Dose 100 MCG; Start 06/04/16 at 06:00 Pantoprazole (Protonix Iv) 40 mg DAILY@06 IV Last administered on 07/09/16 05: 32; Admin Dose 40 MG; Start 06/09/16 at 06:00 Lorazepam (Ativan) 1 mg Q6H PRN IV AGITATION/ANXIETY Last administered on 00:08; Admin Dose 1 MG; Start 06/08/16 at 18:00 Acetaminophen/ Hydrocodone Bitart ([place] (5/325)) 1 tab Q6H PRN PO PAIN Last administered on 06/11/16at 17:38; Admin Dose 1 TAB; Start 06/11/16 at 17:30 Collagenase (Santyl) 1 applic DAILY TOP Last administered on 07/09/16 08:31; Admin Dose 1 APPLIC; Start 06/12/16 at 09:00 Nystatin (Nystatin Susp) 5 ml QID PO Last administered on 07/09/16 13:20; Admin Dose 5 ML; Start 06/18/16 at 17:00 Scopolamine (Transderm-Scop) 1 patch Q72H TRANSDERM Last administered on 21:07; Admin Dose 1 PATCH; Start 06/22/16 at 21:00 Fluconazole 100 mg 100 mg DAILY PO Last administered on 07/09/16 08:29; Admin Dose 100 MG; Start 06/28/16 at 09:00 Sodium Chloride (NS) 1,000 ml @ 100 mls/hr Q10H IV Last administered on 13:21; Admin Dose 100 MLS/HR; Start 07/01/16 at 19:00 Lactobacillus Acidoph/Bulgaricus (Floranex) 1 tab BID PO Last administered on 08:30; Admin Dose 1 TAB; Start 07/01/16 at 21:00 Potassium Chloride (Klor-Con 20) 20 meq BID PO Last administered on 07/09/16 08:29; Admin Dose 20 MEQ; Start 07/03/16 at 21:00 Ibuprofen (Motrin) 600 mg TID PRN PO FEVER Last administered on 07/04/16 01:29 ; Admin Dose 600 MG; Start 07/03/16 at 19:30 Filgrastim (Neupogen) 480 mcg DAILY@17 SC Last administered on 07/08/16 16:57 ; Admin Dose 480 MCG; Start 07/06/16 at 17:00; Stop 07/10/16 at 17:01 Gentamicin Sulfate GENTAMICIN PER PHARM... NOTE XX ; Start 07/07/16 at 14:30; Stop 07/09/16 at 22:00 Gentamicin Sulfate 300 mg/ Sodium Chloride 107.5 ml @ 103.75 mls/ hr Q24H IVPB Last administered on 07/08/16 16:44; Admin Dose 103.75 MLS/HR; Start at 16:00; Stop 07/09/16 at 17:03 Vancomycin HCl/ Sodium Chloride (Vancocin/NS) 250 ml @ 83.333 mls/ hr Q12H IVPB Last administered on 07/09/16 11:00; Admin Dose 83.333 MLS/HR; Start at 22:00 Albuterol/ Ipratropium (Duoneb) 3 ml Q6 HHN ; Start 07/09/16 at 14:00 CHANDRIKA MERLOS M.D. Jul 09, 2016 13:58
[2016-07-09] MEDS ORDERED: ALBUTEROL/IPRATROPIUM (NEB) 3 ML AMP HHN SCH (14:00)
--- NOTE | 2016-07-09 15:20 | PN ---
DATE: 07/09/2016 SUBJECTIVE: No acute changes overnight. The patient is alert, watching the movie. She denies pain , discomfort and feels better than yesterday. No vomiting, no diarrhea this morning; however, had d iarrhea last night, WBC today is 0.2, platelets 61. BUN 5, creatinine 0.39. ANTIMICROBIALS: 1. Vancomycin. 2. Gentamicin. Last dose today. 3. She is also on Diflucan and acyclovir. INDWELLINGS: PICC line trach. PHYSICAL EXAMINATION: GENERAL: Chronically ill-appearing, fragile, middle-aged woman who is awake, in no distress. HEENT: Head atraumatic, normocephalic. Sclerae anicteric. Buccal mucosa dry. The patient has dario e white thrush on her tongue. NECK: Supple, tracheostomy present. CHEST: Rise symmetrical. Breath sounds diminished to bases. HEART: S1, S2. ABDOMEN: Soft. Bowel tones present. EXTREMITIES: Without cyanosis. ASSESSMENT: 1. Systemic inflammatory response syndrome, status post low-grade fevers. 2. Methicillin-resistant Staphylococcus aureus positive sputum, remains on vancomycin. 3. Pseudomonas aeruginosa urinary tract infection, completing treatment with gentamicin. Today is the last dose. 4. Stage IIIA Burkitt's lymphoma, in chemotherapy per oncology follows. 5. Pancytopenia. 6. Status post tracheostomy secondary to neck mass. PLAN: The patient remains stable, no fevers. Continue present care, antibiotics, oral nystatin and follow oncology recommendations. Dictated By: RODRÍGUEZ ERAZO DIETETIC AIDE for JILLIAN CUEVAS/YUNI Conf#: [id number] DID#: [id number]
[2016-07-09] MEDS: GENTAMICIN 300 MG in SOD CHLORIDE 0.9% 100 ML IVPB SCH (16:42)
--- NOTE | 2016-07-09 19:38 | PN ---
Date/Time of Note Date/Time of Note DATE: 07/09/16 TIME: 19:36 Assessment/Plan VTE Prophylaxis VTE Prophylaxis Intervention: other Lines/Catheters IV Catheter Type (from Nrsg): PICC Line Central line still needed: Yes Urinary Cath still in place: No Assessment/Plan Chief Complaint/Hosp Course IMPRESSION: The patient has Burkitt's lymphoma HX tracheostomy, status post thyroid mass, pancytopenia, abnormal liver function test. better SEPSIS better gallstone ABN LFT better anemia post chemo uti pancytopenia PLAN per oncology LABS chemo per id Problems: Subjective 24 Hr Interval Summary Subjective hx not possible: other (WEAKNESS+) Exam/Review of Systems Vital Signs Vitals Vital Signs Date Time Temp Pulse Resp B/P Pulse Ox O2 Delivery O2 Flow Rate FiO2 07/09/16 14:27 90 14 99 Aerosol 5.0 28 07/09/16 07:25 98.0 101/68 Intake and Output 07/08/16 07/08/16 07/09/16 15:00 23:00 07:00 Intake Total 1711.5 ml 1224 ml Balance 1711.5 ml 1224 ml Exam Respiratory: diminished breath sounds Cardiovascular: regular rate and rhythm Gastrointestinal: soft Musculoskeletal: nl extremities to inspection Extremities: normal pulses Results Result Diagram: 07/09/16 0911 07/09/16 0911 Results 24 hrs Laboratory Tests Test 07/09/16 09:11 Alanine Aminotransferase (ALT/SGPT) 59 Albumin 3.1 L Albumin/Globulin Ratio 1.29 Alkaline Phosphatase 125 H Anion Gap 14 Anisocytosis 1+ Aspartate Amino Transf (AST/SGOT) 31 Basophils # Basophils % Blood Morphology Comment Blood Urea Nitrogen 5 L Calcium Level 8.9 Carbon Dioxide Level 22 Chloride Level 107 Creatinine 0.39 L Direct Bilirubin 0.00 Eosinophils # 0.0 Eosinophils % 20.0 H Globulin 2.40 Glucose Level 137 # Hematocrit 29.9 L Hemoglobin 10.3 L Indirect Bilirubin 0.3 Lactate Dehydrogenase 400 Lymphocytes # Lymphocytes % Mean Corpuscular Hemoglobin 29.8 Mean Corpuscular Hemoglobin Concent 34.3 Mean Corpuscular Volume 86.9 Mean Platelet Volume 7.0 L Monocytes # Monocytes % Neutrophils # 0.2 L Neutrophils % 80.0 H Platelet Count 61 #L Potassium Level 3.6 Red Blood Count 3.44 L Red Cell Distribution Width 16.1 H Sodium Level 139 Total Bilirubin 0.3 Total Protein 5.5 L Vancomycin Level Trough 16.6 White Blood Count 0.2 #L Medications Medications Current Medications Acyclovir (Zovirax) 400 mg BID PO Last administered on 07/09/16 08:30; Admin Dose 400 MG; Start 06/02/16 at 14:30 Diphenhydramine HCl (Benadryl) 25 mg Q4H PRN IV ALLERGIC REACTION Last administered on 06/06/16 20:26; Admin Dose 25 MG; Start 06/02/16 at 18:30 Dexamethasone 10 mg 10 mg Q4H PRN IV ALLERGIC REACTION; Start 06/02/16 at 18: 30 Ondansetron HCl/ Sodium Chloride (Zofran Inj/NS) 54 ml @ 216 mls/hr Q6H PRN IV NAUSEA AND/OR VOMITING Last administered on 07/09/16 13:46; Admin Dose 216 MLS/HR; Start 06/02/16 at 18:30 Ondansetron HCl (Zofran Inj) 4 mg Q6H PRN IV NAUSEA AND/OR VOMITING Last administered on 07/07/16 11:16; Admin Dose 4 MG; Start 06/03/16 at 17:00 Acetaminophen (Tylenol Tab) 650 mg Q6H PRN PO PAIN LEVEL 1-3 OR FEVER Last administered on 07/08/16 16:56; Admin Dose 650 MG; Start 06/03/16 at 17:00 Acetaminophen (Tylenol Supp) 650 mg Q6H PRN [place] PAIN LEVEL 1-3 OR FEVER Last administered on 06/09/16 03:37; Admin Dose 650 MG; Start 06/03/16 at 17:00 Docusate Sodium (Colace) 100 mg Q12H PRN PO CONSTIPATION Last administered on 06/20/16 22:25; Admin Dose 100 MG; Start 06/03/16 at 17:00 Magnesium Hydroxide (Milk Of Mag) 30 ml DAILY PRN PO CONSTIPATION Last administered on 06/20/16 06:13; Admin Dose 30 ML; Start 06/03/16 at 17:00 Bisacodyl (Dulcolax) 5 mg DAILY PRN PO CONSTIPATION; Start 06/03/16 at 17:00 Bisacodyl (Dulcolax Supp) 10 mg DAILY PRN [place] CONSTIPATION Last administered on 06/21/16 05:18; Admin Dose 10 MG; Start 06/03/16 at 17:00 Sodium Biphosphate/ Sodium Phosphate (Fleet Enema) 133 ml DAILY PRN [place] CONSTIPATION; Start 06/03/16 at 17:00 Enoxaparin Sodium (Lovenox) 30 mg DAILY SC Last administered on 06/12/16at 08: 27; Admin Dose 30 MG; Start 06/04/16 at 09:00; Status Future Hold Allopurinol (Zyloprim) 300 mg DAILY PO Last administered on 07/09/16 08:30; Admin Dose 300 MG; Start 06/04/16 at 09:00 Eye Lubricant (Artificial Tears Oph) 2 drop QID BOTH EYES Last administered on 07/09/16 16:42; Admin Dose 2 DROP; Start 06/03/16 at 21:00 Eye Lubricant (Akwa Oint) 1 applic DAILY BOTH EYES Last administered on 08:31; Admin Dose 1 APPLIC; Start 06/04/16 at 09:00 Gabapentin (Neurontin) 200 mg TID PO Last administered on 07/09/16 13:20; Admin Dose 200 MG; Start 06/03/16 at 21:00 Levothyroxine Sodium (Synthroid) 100 mcg DAILY@06 PO Last administered on 05:33; Admin Dose 100 MCG; Start 06/04/16 at 06:00 Pantoprazole (Protonix Iv) 40 mg DAILY@06 IV Last administered on 07/09/16 05: 32; Admin Dose 40 MG; Start 06/09/16 at 06:00 Lorazepam (Ativan) 1 mg Q6H PRN IV AGITATION/ANXIETY Last administered on 17:20; Admin Dose 1 MG; Start 06/08/16 at 18:00 Acetaminophen/ Hydrocodone Bitart ([place] (5/325)) 1 tab Q6H PRN PO PAIN Last administered on 06/11/16at 17:38; Admin Dose 1 TAB; Start 06/11/16 at 17:30 Collagenase (Santyl) 1 applic DAILY TOP Last administered on 07/09/16 08:31; Admin Dose 1 APPLIC; Start 06/12/16 at 09:00 Nystatin (Nystatin Susp) 5 ml QID PO Last administered on 07/09/16 17:08; Admin Dose 5 ML; Start 06/18/16 at 17:00 Scopolamine (Transderm-Scop) 1 patch Q72H TRANSDERM Last administered on 21:07; Admin Dose 1 PATCH; Start 06/22/16 at 21:00 Fluconazole 100 mg 100 mg DAILY PO Last administered on 07/09/16 08:29; Admin Dose 100 MG; Start 06/28/16 at 09:00 Sodium Chloride (NS) 1,000 ml @ 100 mls/hr Q10H IV Last administered on 13:21; Admin Dose 100 MLS/HR; Start 07/01/16 at 19:00 Lactobacillus Acidoph/Bulgaricus (Floranex) 1 tab BID PO Last administered on 08:30; Admin Dose 1 TAB; Start 07/01/16 at 21:00 Potassium Chloride (Klor-Con 20) 20 meq BID PO Last administered on 07/09/16 08:29; Admin Dose 20 MEQ; Start 07/03/16 at 21:00 Ibuprofen (Motrin) 600 mg TID PRN PO FEVER Last administered on 07/04/16 01:29 ; Admin Dose 600 MG; Start 07/03/16 at 19:30 Filgrastim (Neupogen) 480 mcg DAILY@17 SC Last administered on 07/08/16 16:57 ; Admin Dose 480 MCG; Start 07/06/16 at 17:00; Stop 07/10/16 at 17:01 Gentamicin Sulfate GENTAMICIN PER PHARM... NOTE XX ; Start 07/07/16 at 14:30; Stop 07/09/16 at 22:00 Vancomycin HCl/ Sodium Chloride (Vancocin/NS) 250 ml @ 83.333 mls/ hr Q12H IVPB Last administered on 07/09/16 11:00; Admin Dose 83.333 MLS/HR; Start at 22:00 GUERLINE SULLIVAN MD Jul 09, 2016 19:38
[2016-07-09 20:13] VITALS: BP 114/76; RESP 17
[2016-07-09] MEDS: FILGRASTIM 480 MCG INJ SC SCH (21:12)
[2016-07-10] MEDS: ALBUTEROL/IPRATROPIUM (NEB) 3 ML AMP HHN SCH ×4 (01:22→19:50)
[2016-07-10] MEDS: SOD CHLORIDE 0.9% 1,000 ML IV SCH ×3 (03:02→23:00)
[2016-07-10] MEDS: LEVOTHYROXINE 100 MCG TAB PO SCH (05:09)
[2016-07-10] MEDS: PANTOPRAZOLE 40 MG INJ IV SCH (05:09)
[2016-07-10 05:22] LABS: HEMATOCRIT 27.2 % (37.0-47.0); HEMOGLOBIN 9.5 g/dl (12.0-16.0); MEAN CORPUSCULAR HEMOGLOBIN 30.1 pg (29.0-33.0); MEAN CORPUSCULAR VOLUME 86.1 fl (82.0-101.0); MEAN PLATELET VOLUME 7.4 fl (7.4-10.4); PLATELET COUNT 35 10^3/UL (140-440); RED BLOOD COUNT 3.16 10^6/ul (4.20-5.40); RED CELL DISTRIBUTION WIDTH 15.8 % (11.5-14.5); UNCORRECTED WBC 0.2 10^3/ul (4.8-10.8); WHITE BLOOD COUNT 0.2 10^3/ul (4.8-10.8)
[2016-07-10 05:34] LABS: CONDITION 1; LH ANALYZER COMMENTS 1; SUSPECT 1
[2016-07-10 05:44] LABS: ALBUMIN 2.9 g/dl (3.3-4.9)
[2016-07-10 05:45] LABS: POTASSIUM 3.5 mmol/L (3.5-5.1)
[2016-07-10 05:47] LABS: ALBUMIN/GLOBULIN RATIO 1.16; BILIRUBIN,INDIRECT 0.4 mg/dl (0-1.1); BILIRUBIN,TOTAL 0.4 mg/dl (0.2-1.3); CALCIUM 8.8 mg/dl (8.4-10.2); CREATININE 0.35 mg/dl (0.44-1.00); TOTAL PROTEIN 5.4 g/dl (6.1-8.1)
[2016-07-10 08:29] VITALS: BP 107/66; RESP 18
[2016-07-10] MEDS: ARTIFICIAL TEARS 15 ML OPH BOTH EYES SCH ×4 (09:18→21:57)
[2016-07-10] MEDS: FLUCONAZOLE 100 MG TAB PO SCH (09:18)
[2016-07-10] MEDS: OCULAR LUBRICANT 3.5 GM OPH OINT BOTH EYES SCH (09:18)
[2016-07-10] MEDS: LACTOBACILLUS CHEW TAB PO SCH ×2 (09:18→21:58)
[2016-07-10] MEDS: POTASSIUM CHLORIDE (SR) 20 MEQ TAB PO SCH ×2 (09:19→21:58)
[2016-07-10] MEDS: ACYCLOVIR 400 MG TAB PO SCH ×2 (09:21→21:58)
[2016-07-10] MEDS: GABAPENTIN 100 MG CAP PO SCH ×3 (09:21→21:58)
[2016-07-10] MEDS: ALLOPURINOL 300 MG TAB PO SCH (09:21)
[2016-07-10] MEDS: NYSTATIN SUSP 5 ML CUP PO SCH ×4 (09:21→21:57)
[2016-07-10] MEDS: ONDANSETRON INJ 8 MG in SOD CHLORIDE 0.9% 50 ML IV PRN ×2 (09:23→19:23)
[2016-07-10] MEDS: COLLAGENASE 30 GM TUBE TOP SCH (09:27)
[2016-07-10] MEDS: VANCOMYCIN 1.25 GM in SOD CHLORIDE 0.9% 250 ML IVPB SCH ×2 (10:13→21:57)
--- NOTE | 2016-07-10 10:23 | CONS ---
Date/Time of Note Date/Time of Note DATE: 07/10/16 TIME: 10:21 Assessment/Plan Assessment/Plan Chief Complaint/Hosp Course 56 yo female with massive neck mass causing tracheal compression and airway compromise s/p tracheostomy placement. 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 Pt was given cycle 1A and 1B of R HyperCVAD but had only a partial response to therapy and severe side effects. We have thus changed her chemotherapy regimen. She is now s/p cycle 1A of R-CODOX-M and has now completed her chemotherapy. Most recent CT neck showed resolution of the mass. Pt's counts are now improving and she is no longer transfusion dependant. She has since started Cycle 1B and is receiving R-IVAC Problems: Additional Assessment/Plan # Burkitt's lymphoma - currently day 9 cycle 1B R -IVAC. chemotherapy regimen is as follows Part 2: R-IVAC Rituximab (Rituxan) 375 mg/m2 IV once on day 1 Ifosfamide (Ifex) 1500 mg/m2 IV over 2 hours once per day on days 1 to 5 Etoposide (Vepesid) 60 mg/m2 IV over 1 hour once per day on days 1 to 5 Cytarabine (Cytosar) 2 g/m2 IV over 3 hours Q12H on days 1 & 2 (4 doses total) [place] (Mesnex) 300 mg/m2 (mixed with Ifosfamide (Ifex)) , then 300mg/m2 IV every four hours x 2, on days 1 to 5 # Neutropenic fevers -appreciate ID recs. continue meropenem and vancomycin -f/u blood and urine cultures # Supportive Care and prophylactic meds -Started Acyclovir 400mg BID -fluconazole 100mg q day -Neupogen 300mcg q day day after chemotherapy is completed -Zofran ordered prn nausea #Expected Pancytopenia -keep Hg> 8 and platelets > 10. pt to get 1 units of prbc today # Elevated AST and ALT, likely related to methotrexate. 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 all steroids should be discontinued for now unless they are part of the chemotherapy regimen -continue to work with physical therapy. 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 -uric acid level ok Approximately 40 min were spent at patient's bedside and in coordination of her care Consultation Date/Type/Reason Admit Date/Time Jun 02, 2016 at 15:10 Initial Consult Date 06/02/16 Type of Consultation: Hematology Reason for Consultation burkitt's lymphoma Referring Provider: TELLY SOLANO MD 24 HR Interval Summary Free Text/Dictation no acute overnight events. pt still with nausea Exam/Review of Systems Vital Signs Vitals Vital Signs Date Time Temp Pulse Resp B/P Pulse Ox O2 Delivery O2 Flow Rate FiO2 07/10/16 08:29 98.2 86 18 107/66 99 07/10/16 01:22 Aerosol 5.0 28 Intake and Output 07/09/16 07/09/16 07/10/16 15:00 23:00 07:00 Intake Total 1604 ml 1400 ml Output Total 1200 ml Balance 1604 ml 200 ml Exam Constitutional: alert, oriented Psych: no complaints Head: atraumatic, normocephalic Eyes: nl conjunctiva Neck: other (trach in place) Respiratory: clear to auscultation, normal air movement Cardiovascular: regular rate and rhythm Gastrointestinal: nl liver, spleen, soft Musculoskeletal: nl extremities to inspection Results Result Diagram: 07/10/16 0440 07/10/16 0440 Results 24 hrs Laboratory Tests Test 07/10/16 04:40 Alanine Aminotransferase (ALT/SGPT) 50 Albumin 2.9 L Albumin/Globulin Ratio 1.16 Alkaline Phosphatase 117 Anion Gap 13 Aspartate Amino Transf (AST/SGOT) 22 Basophils # Basophils % Blood Morphology Comment Blood Urea Nitrogen 5 L Calcium Level 8.8 Carbon Dioxide Level 25 Chloride Level 107 Creatinine 0.35 L Direct Bilirubin 0.00 Eosinophils # Eosinophils % Globulin 2.50 Glucose Level 93 # Hematocrit 27.2 L Hemoglobin 9.5 L Indirect Bilirubin 0.4 Lactate Dehydrogenase 373 Lymphocytes # Mean Corpuscular Hemoglobin 30.1 Mean Corpuscular Hemoglobin Concent 35.0 Mean Corpuscular Volume 86.1 Mean Platelet Volume 7.4 Monocytes # Monocytes % Neutrophils # Neutrophils % Platelet Count 35 #L Potassium Level 3.5 Red Blood Count 3.16 L Red Cell Distribution Width 15.8 H Sodium Level 141 Total Bilirubin 0.4 Total Protein 5.4 L White Blood Count 0.2 L Medications Medications Current Medications Acyclovir (Zovirax) 400 mg BID PO Last administered on 07/10/16t 09:21; Admin Dose 400 MG; Start 06/02/16 at 14:30 Diphenhydramine HCl (Benadryl) 25 mg Q4H PRN IV ALLERGIC REACTION Last administered on 06/06/16at 20:26; Admin Dose 25 MG; Start 06/02/16 at 18:30 Dexamethasone 10 mg 10 mg Q4H PRN IV ALLERGIC REACTION; Start 06/02/16 at 18: 30 Ondansetron HCl/ Sodium Chloride (Zofran Inj/NS) 54 ml @ 216 mls/hr Q6H PRN IV NAUSEA AND/OR VOMITING Last administered on 07/10/16 09:23; Admin Dose 216 MLS/HR; Start 06/02/16 at 18:30 Ondansetron HCl (Zofran Inj) 4 mg Q6H PRN IV NAUSEA AND/OR VOMITING Last administered on 07/07/16 11:16; Admin Dose 4 MG; Start 06/03/16 at 17:00 Acetaminophen (Tylenol Tab) 650 mg Q6H PRN PO PAIN LEVEL 1-3 OR FEVER Last administered on 07/08/16 16:56; Admin Dose 650 MG; Start 06/03/16 at 17:00 Acetaminophen (Tylenol Supp) 650 mg Q6H PRN [place] PAIN LEVEL 1-3 OR FEVER Last administered on 06/09/16at 03:37; Admin Dose 650 MG; Start 06/03/16 at 17:00 Docusate Sodium (Colace) 100 mg Q12H PRN PO CONSTIPATION Last administered on 06/20/16at 22:25; Admin Dose 100 MG; Start 06/03/16 at 17:00 Magnesium Hydroxide (Milk Of Mag) 30 ml DAILY PRN PO CONSTIPATION Last administered on 06/20/16at 06:13; Admin Dose 30 ML; Start 06/03/16 at 17:00 Bisacodyl (Dulcolax) 5 mg DAILY PRN PO CONSTIPATION; Start 06/03/16 at 17:00 Bisacodyl (Dulcolax Supp) 10 mg DAILY PRN [place] CONSTIPATION Last administered on 06/21/16at 05:18; Admin Dose 10 MG; Start 06/03/16 at 17:00 Sodium Biphosphate/ Sodium Phosphate (Fleet Enema) 133 ml DAILY PRN [place] CONSTIPATION; Start 06/03/16 at 17:00 Enoxaparin Sodium (Lovenox) 30 mg DAILY SC Last administered on 06/12/16at 08: 27; Admin Dose 30 MG; Start 06/04/16 at 09:00; Status Future Hold Allopurinol (Zyloprim) 300 mg DAILY PO Last administered on 07/10/16 09:21; Admin Dose 300 MG; Start 06/04/16 at 09:00 Eye Lubricant (Artificial Tears Oph) 2 drop QID BOTH EYES Last administered on 07/10/16 09:18; Admin Dose 2 DROP; Start 06/03/16 at 21:00 Eye Lubricant (Akwa Oint) 1 applic DAILY BOTH EYES Last administered on 09:18; Admin Dose 1 APPLIC; Start 06/04/16 at 09:00 Gabapentin (Neurontin) 200 mg TID PO Last administered on 07/10/16 09:21; Admin Dose 200 MG; Start 06/03/16 at 21:00 Levothyroxine Sodium (Synthroid) 100 mcg DAILY@06 PO Last administered on 05:09; Admin Dose 100 MCG; Start 06/04/16 at 06:00 Pantoprazole (Protonix Iv) 40 mg DAILY@06 IV Last administered on 07/10/16 05: 09; Admin Dose 40 MG; Start 06/09/16 at 06:00 Lorazepam (Ativan) 1 mg Q6H PRN IV AGITATION/ANXIETY Last administered on 17:20; Admin Dose 1 MG; Start 06/08/16 at 18:00 Acetaminophen/ Hydrocodone Bitart ([place] (5/325)) 1 tab Q6H PRN PO PAIN Last administered on 06/11/16at 17:38; Admin Dose 1 TAB; Start 06/11/16 at 17:30 Collagenase (Santyl) 1 applic DAILY TOP Last administered on 07/10/16 09:27; Admin Dose 1 APPLIC; Start 06/12/16 at 09:00 Nystatin (Nystatin Susp) 5 ml QID PO Last administered on 07/10/16 09:21; Admin Dose 5 ML; Start 06/18/16 at 17:00 Scopolamine (Transderm-Scop) 1 patch Q72H TRANSDERM Last administered on 21:07; Admin Dose 1 PATCH; Start 06/22/16 at 21:00 Fluconazole 100 mg 100 mg DAILY PO Last administered on 07/10/16 09:18; Admin Dose 100 MG; Start 06/28/16 at 09:00 Sodium Chloride (NS) 1,000 ml @ 100 mls/hr Q10H IV Last administered on 09:22; Admin Dose 100 MLS/HR; Start 07/01/16 at 19:00 Lactobacillus Acidoph/Bulgaricus (Floranex) 1 tab BID PO Last administered on 09:18; Admin Dose 1 TAB; Start 07/01/16 at 21:00 Potassium Chloride (Klor-Con 20) 20 meq BID PO Last administered on 07/10/16 09:19; Admin Dose 20 MEQ; Start 07/03/16 at 21:00 Ibuprofen (Motrin) 600 mg TID PRN PO FEVER Last administered on 07/04/16 01:29 ; Admin Dose 600 MG; Start 07/03/16 at 19:30 Filgrastim 480 mcg 480 mcg DAILY@17 SC Last administered on 07/09/16 21:12; Admin Dose 480 MCG; Start 07/06/16 at 17:00; Stop 07/10/16 at 17:01 Vancomycin HCl/ Sodium Chloride (Vancocin/NS) 250 ml @ 83.333 mls/ hr Q12H IVPB Last administered on 07/10/16 10:13; Admin Dose 83.333 MLS/HR; Start at 22:00 CHANDRIKA MERLOS M.D. Jul 10, 2016 10:23
[2016-07-10 12:43] LABS: LYMPHOCYTES # 0.2 10^3/ul (0.8-2.9); PLATELET ESTIMATE PLT APPEAR DECREASED
[2016-07-10] MEDS: ONDANSETRON 4 MG INJ IV PRN ×2 (12:53→22:44)
--- NOTE | 2016-07-10 13:20 | CONS ---
Date/Time of Note Date/Time of Note DATE: 07/10/16 TIME: 13:18 Consult Date/Type/Reason Admit Date/Time Jun 02, 2016 at 15:10 Initial Consult Date 06/02/16 Type of Consultation: ID Ordering Provider: TELLY SOLANO MD Subjective alert, looks comfortable, c/o L sided rib pain, nad Objective Vital Signs Date Time Temp Pulse Resp B/P Pulse Ox O2 Delivery O2 Flow Rate FiO2 07/10/16 08:29 98.2 86 18 107/66 99 07/10/16 08:00 Vapotherm 5.0 07/10/16 01:22 28 Intake and Output 07/09/16 07/09/16 07/10/16 15:00 23:00 07:00 Intake Total 1604 ml 1400 ml Output Total 1200 ml Balance 1604 ml 200 ml Results/Medications Result Diagram: 07/10/16 0440 07/10/16 0440 Results 24 hrs Laboratory Tests Test 07/10/16 04:40 Alanine Aminotransferase (ALT/SGPT) 50 Albumin 2.9 L Albumin/Globulin Ratio 1.16 Alkaline Phosphatase 117 Anion Gap 13 Aspartate Amino Transf (AST/SGOT) 22 Basophils # Basophils % Blood Morphology Comment Blood Urea Nitrogen 5 L Calcium Level 8.8 Carbon Dioxide Level 25 Chloride Level 107 Creatinine 0.35 L Direct Bilirubin 0.00 Eosinophils # Eosinophils % Globulin 2.50 Glucose Level 93 # Hematocrit 27.2 L Hemoglobin 9.5 L Indirect Bilirubin 0.4 Lactate Dehydrogenase 373 Lymphocytes # 0.2 L Lymphocytes % 89.0 H Mean Corpuscular Hemoglobin 30.1 Mean Corpuscular Hemoglobin Concent 35.0 Mean Corpuscular Volume 86.1 Mean Platelet Volume 7.4 Monocytes # Monocytes % Neutrophils # 0.0 L Neutrophils % 11.0 L Platelet Count 35 #L Platelet Estimate PLT APPEAR DECREASED Potassium Level 3.5 Red Blood Count 3.16 L Red Cell Distribution Width 15.8 H Sodium Level 141 Total Bilirubin 0.4 Total Protein 5.4 L White Blood Count 0.2 L Medications Current Medications Acyclovir (Zovirax) 400 mg BID PO Last administered on 07/10/16t 09:21; Admin Dose 400 MG; Start 06/02/16 at 14:30 Diphenhydramine HCl (Benadryl) 25 mg Q4H PRN IV ALLERGIC REACTION Last administered on 06/06/16 20:26; Admin Dose 25 MG; Start 06/02/16 at 18:30 Dexamethasone 10 mg 10 mg Q4H PRN IV ALLERGIC REACTION; Start 06/02/16 at 18: 30 Ondansetron HCl/ Sodium Chloride (Zofran Inj/NS) 54 ml @ 216 mls/hr Q6H PRN IV NAUSEA AND/OR VOMITING Last administered on 07/10/16 09:23; Admin Dose 216 MLS/HR; Start 06/02/16 at 18:30 Ondansetron HCl (Zofran Inj) 4 mg Q6H PRN IV NAUSEA AND/OR VOMITING Last administered on 07/10/16 12:53; Admin Dose 4 MG; Start 06/03/16 at 17:00 Acetaminophen (Tylenol Tab) 650 mg Q6H PRN PO PAIN LEVEL 1-3 OR FEVER Last administered on 07/08/16 16:56; Admin Dose 650 MG; Start 06/03/16 at 17:00 Acetaminophen (Tylenol Supp) 650 mg Q6H PRN [place] PAIN LEVEL 1-3 OR FEVER Last administered on 06/09/16 03:37; Admin Dose 650 MG; Start 06/03/16 at 17:00 Docusate Sodium (Colace) 100 mg Q12H PRN PO CONSTIPATION Last administered on 06/20/16 22:25; Admin Dose 100 MG; Start 06/03/16 at 17:00 Magnesium Hydroxide (Milk Of Mag) 30 ml DAILY PRN PO CONSTIPATION Last administered on 06/20/16 06:13; Admin Dose 30 ML; Start 06/03/16 at 17:00 Bisacodyl (Dulcolax) 5 mg DAILY PRN PO CONSTIPATION; Start 06/03/16 at 17:00 Bisacodyl (Dulcolax Supp) 10 mg DAILY PRN [place] CONSTIPATION Last administered on 06/21/16 05:18; Admin Dose 10 MG; Start 06/03/16 at 17:00 Sodium Biphosphate/ Sodium Phosphate (Fleet Enema) 133 ml DAILY PRN [place] CONSTIPATION; Start 06/03/16 at 17:00 Enoxaparin Sodium (Lovenox) 30 mg DAILY SC Last administered on 06/12/16 08: 27; Admin Dose 30 MG; Start 06/04/16 at 09:00; Status Future Hold Allopurinol (Zyloprim) 300 mg DAILY PO Last administered on 07/10/16 09:21; Admin Dose 300 MG; Start 06/04/16 at 09:00 Eye Lubricant (Artificial Tears Oph) 2 drop QID BOTH EYES Last administered on 07/10/16 12:45; Admin Dose 2 DROP; Start 06/03/16 at 21:00 Eye Lubricant (Akwa Oint) 1 applic DAILY BOTH EYES Last administered on 09:18; Admin Dose 1 APPLIC; Start 06/04/16 at 09:00 Gabapentin (Neurontin) 200 mg TID PO Last administered on 07/10/16 12:45; Admin Dose 200 MG; Start 06/03/16 at 21:00 Levothyroxine Sodium (Synthroid) 100 mcg DAILY@06 PO Last administered on 05:09; Admin Dose 100 MCG; Start 06/04/16 at 06:00 Pantoprazole (Protonix Iv) 40 mg DAILY@06 IV Last administered on 07/10/16 05: 09; Admin Dose 40 MG; Start 06/09/16 at 06:00 Lorazepam (Ativan) 1 mg Q6H PRN IV AGITATION/ANXIETY Last administered on 17:20; Admin Dose 1 MG; Start 06/08/16 at 18:00 Acetaminophen/ Hydrocodone Bitart ([place] (5/325)) 1 tab Q6H PRN PO PAIN Last administered on 06/11/16at 17:38; Admin Dose 1 TAB; Start 06/11/16 at 17:30 Collagenase (Santyl) 1 applic DAILY TOP Last administered on 07/10/16 09:27; Admin Dose 1 APPLIC; Start 06/12/16 at 09:00 Nystatin (Nystatin Susp) 5 ml QID PO Last administered on 07/10/16 12:45; Admin Dose 5 ML; Start 06/18/16 at 17:00 Scopolamine (Transderm-Scop) 1 patch Q72H TRANSDERM Last administered on 21:07; Admin Dose 1 PATCH; Start 06/22/16 at 21:00 Fluconazole 100 mg 100 mg DAILY PO Last administered on 07/10/16 09:18; Admin Dose 100 MG; Start 06/28/16 at 09:00 Sodium Chloride (NS) 1,000 ml @ 100 mls/hr Q10H IV Last administered on 09:22; Admin Dose 100 MLS/HR; Start 07/01/16 at 19:00 Lactobacillus Acidoph/Bulgaricus (Floranex) 1 tab BID PO Last administered on 09:18; Admin Dose 1 TAB; Start 07/01/16 at 21:00 Potassium Chloride (Klor-Con 20) 20 meq BID PO Last administered on 07/10/16 09:19; Admin Dose 20 MEQ; Start 07/03/16 at 21:00 Ibuprofen (Motrin) 600 mg TID PRN PO FEVER Last administered on 07/04/16 01:29 ; Admin Dose 600 MG; Start 07/03/16 at 19:30 Filgrastim 480 mcg 480 mcg DAILY@17 SC Last administered on 07/09/16 21:12; Admin Dose 480 MCG; Start 07/06/16 at 17:00; Stop 07/10/16 at 17:01 Vancomycin HCl/ Sodium Chloride (Vancocin/NS) 250 ml @ 83.333 mls/ hr Q12H IVPB Last administered on 07/10/16 10:13; Admin Dose 83.333 MLS/HR; Start at 22:00 Assessment/Plan Chief Complaint/Hosp Course ANTIMICROBIALS: 1. Vancomycin. 2. s/p Gentamicin 3. She is also on Diflucan and acyclovir. INDWELLINGS: PICC line trach. PHYSICAL EXAMINATION: GENERAL: Chronically ill-appearing, fragile, middle-aged woman who is awake, in no distress. HEENT: Head atraumatic, normocephalic. Sclerae anicteric. Buccal mucosa dry. The patient has some white thrush on her tongue. NECK: Supple, tracheostomy present. CHEST: Rise symmetrical. Breath sounds diminished to bases. HEART: S1, S2. ABDOMEN: Soft. Bowel tones present. No pain with palpation EXTREMITIES: Without cyanosis. ASSESSMENT: 1. Systemic inflammatory response syndrome, status post low-grade fevers. 2. Methicillin-resistant Staphylococcus aureus positive sputum, remains on vancomycin. 3. Pseudomonas aeruginosa urinary tract infection, completing treatment with gentamicin. Today is the last dose. 4. Stage IIIA Burkitt's lymphoma, in chemotherapy per oncology follows. 5. Pancytopenia. 6. Status post tracheostomy secondary to neck mass. PLAN: The patient remains stable, no fevers. Will repeat urine cx, continue present care, antibiotics, oral nystatin and follow oncology recommendations. DW staff Problems: RODRÍGUEZ ERAZO NP Jul 10, 2016 13:20
[2016-07-10] MEDS: FILGRASTIM 480 MCG INJ SC SCH (17:05)
--- NOTE | 2016-07-10 19:06 | PN ---
Date/Time of Note Date/Time of Note DATE: 07/10/16 TIME: 19:05 Assessment/Plan VTE Prophylaxis VTE Prophylaxis Intervention: other Lines/Catheters IV Catheter Type (from Nrs): PICC Line Central line still needed: Yes Urinary Cath still in place: No Reason Cath still needed: other (indicate) Assessment/Plan Chief Complaint/Hosp Course IMPRESSION: The patient has Burkitt's lymphoma HX tracheostomy, status post thyroid mass, pancytopenia, abnormal liver function test. better SEPSIS better gallstone ABN LFT better anemia post chemo uti pancytopenia PLAN per oncology LABS chemo per id ck cbc Problems: Subjective 24 Hr Interval Summary ENT: no complaints Respiratory: no complaints Cardiovascular: no complaints Gastrointestinal: no complaints Exam/Review of Systems Vital Signs Vitals Vital Signs Date Time Temp Pulse Resp B/P Pulse Ox O2 Delivery O2 Flow Rate FiO2 07/10/16 14:32 88 18 98 Aerosol 5.0 28 07/10/16 08:29 98.2 107/66 Intake and Output 07/09/16 07/09/16 07/10/16 15:00 23:00 07:00 Intake Total 1604 ml 1400 ml Output Total 1200 ml Balance 1604 ml 200 ml Exam Neck: supple Respiratory: clear to auscultation Cardiovascular: regular rate and rhythm Gastrointestinal: soft Musculoskeletal: nl extremities to inspection Extremities: normal pulses Results Result Diagram: 07/10/1643907/10/16 0440 Results 24 hrs Laboratory Tests Test 07/10/16 04:40 Alanine Aminotransferase (ALT/SGPT) 50 Albumin 2.9 L Albumin/Globulin Ratio 1.16 Alkaline Phosphatase 117 Anion Gap 13 Aspartate Amino Transf (AST/SGOT) 22 Basophils # Basophils % Blood Morphology Comment Blood Urea Nitrogen 5 L Calcium Level 8.8 Carbon Dioxide Level 25 Chloride Level 107 Creatinine 0.35 L Direct Bilirubin 0.00 Eosinophils # Eosinophils % Globulin 2.50 Glucose Level 93 # Hematocrit 27.2 L Hemoglobin 9.5 L Indirect Bilirubin 0.4 Lactate Dehydrogenase 373 Lymphocytes # 0.2 L Lymphocytes % 89.0 H Mean Corpuscular Hemoglobin 30.1 Mean Corpuscular Hemoglobin Concent 35.0 Mean Corpuscular Volume 86.1 Mean Platelet Volume 7.4 Monocytes # Monocytes % Neutrophils # 0.0 L Neutrophils % 11.0 L Platelet Count 35 #L Platelet Estimate PLT APPEAR DECREASED Potassium Level 3.5 Red Blood Count 3.16 L Red Cell Distribution Width 15.8 H Sodium Level 141 Total Bilirubin 0.4 Total Protein 5.4 L White Blood Count 0.2 L Medications Medications Current Medications Acyclovir (Zovirax) 400 mg BID PO Last administered on 07/10/16 09:21; Admin Dose 400 MG; Start 06/02/16 at 14:30 Diphenhydramine HCl (Benadryl) 25 mg Q4H PRN IV ALLERGIC REACTION Last administered on 06/06/16 20:26; Admin Dose 25 MG; Start 06/02/16 at 18:30 Dexamethasone 10 mg 10 mg Q4H PRN IV ALLERGIC REACTION; Start 06/02/16 at 18: 30 Ondansetron HCl/ Sodium Chloride (Zofran Inj/NS) 54 ml @ 216 mls/hr Q6H PRN IV NAUSEA AND/OR VOMITING Last administered on 07/10/16 09:23; Admin Dose 216 MLS/HR; Start 06/02/16 at 18:30 Ondansetron HCl (Zofran Inj) 4 mg Q6H PRN IV NAUSEA AND/OR VOMITING Last administered on 07/10/16 12:53; Admin Dose 4 MG; Start 06/03/16 at 17:00 Acetaminophen (Tylenol Tab) 650 mg Q6H PRN PO PAIN LEVEL 1-3 OR FEVER Last administered on 07/08/16 16:56; Admin Dose 650 MG; Start 06/03/16 at 17:00 Acetaminophen (Tylenol Supp) 650 mg Q6H PRN [place] PAIN LEVEL 1-3 OR FEVER Last administered on 06/09/16 03:37; Admin Dose 650 MG; Start 06/03/16 at 17:00 Docusate Sodium (Colace) 100 mg Q12H PRN PO CONSTIPATION Last administered on 06/20/16 22:25; Admin Dose 100 MG; Start 06/03/16 at 17:00 Magnesium Hydroxide (Milk Of Mag) 30 ml DAILY PRN PO CONSTIPATION Last administered on 06/20/16 06:13; Admin Dose 30 ML; Start 06/03/16 at 17:00 Bisacodyl (Dulcolax) 5 mg DAILY PRN PO CONSTIPATION; Start 06/03/16 at 17:00 Bisacodyl (Dulcolax Supp) 10 mg DAILY PRN [place] CONSTIPATION Last administered on 06/21/16 05:18; Admin Dose 10 MG; Start 06/03/16 at 17:00 Sodium Biphosphate/ Sodium Phosphate (Fleet Enema) 133 ml DAILY PRN [place] CONSTIPATION; Start 06/03/16 at 17:00 Enoxaparin Sodium (Lovenox) 30 mg DAILY SC Last administered on 06/12/16 08: 27; Admin Dose 30 MG; Start 06/04/16 at 09:00; Status Future Hold Allopurinol (Zyloprim) 300 mg DAILY PO Last administered on 07/10/16 09:21; Admin Dose 300 MG; Start 06/04/16 at 09:00 Eye Lubricant (Artificial Tears Oph) 2 drop QID BOTH EYES Last administered on 07/10/16 17:04; Admin Dose 2 DROP; Start 06/03/16 at 21:00 Eye Lubricant (Akwa Oint) 1 applic DAILY BOTH EYES Last administered on 09:18; Admin Dose 1 APPLIC; Start 06/04/16 at 09:00 Gabapentin (Neurontin) 200 mg TID PO Last administered on 07/10/16 12:45; Admin Dose 200 MG; Start 06/03/16 at 21:00 Levothyroxine Sodium (Synthroid) 100 mcg DAILY@06 PO Last administered on 05:09; Admin Dose 100 MCG; Start 06/04/16 at 06:00 Pantoprazole (Protonix Iv) 40 mg DAILY@06 IV Last administered on 07/10/16 05: 09; Admin Dose 40 MG; Start 06/09/16 at 06:00 Lorazepam (Ativan) 1 mg Q6H PRN IV AGITATION/ANXIETY Last administered on 17:20; Admin Dose 1 MG; Start 06/08/16 at 18:00 Acetaminophen/ Hydrocodone Bitart ([place] (5/325)) 1 tab Q6H PRN PO PAIN Last administered on 06/11/16at 17:38; Admin Dose 1 TAB; Start 06/11/16 at 17:30 Collagenase (Santyl) 1 applic DAILY TOP Last administered on 07/10/16 09:27; Admin Dose 1 APPLIC; Start 06/12/16 at 09:00 Nystatin (Nystatin Susp) 5 ml QID PO Last administered on 07/10/16 17:04; Admin Dose 5 ML; Start 06/18/16 at 17:00 Scopolamine (Transderm-Scop) 1 patch Q72H TRANSDERM Last administered on 21:07; Admin Dose 1 PATCH; Start 06/22/16 at 21:00 Fluconazole 100 mg 100 mg DAILY PO Last administered on 07/10/16 09:18; Admin Dose 100 MG; Start 06/28/16 at 09:00 Sodium Chloride (NS) 1,000 ml @ 100 mls/hr Q10H IV Last administered on 09:22; Admin Dose 100 MLS/HR; Start 07/01/16 at 19:00 Lactobacillus Acidoph/Bulgaricus (Floranex) 1 tab BID PO Last administered on 09:18; Admin Dose 1 TAB; Start 07/01/16 at 21:00 Potassium Chloride (Klor-Con 20) 20 meq BID PO Last administered on 07/10/16 09:19; Admin Dose 20 MEQ; Start 07/03/16 at 21:00 Ibuprofen 600 mg 600 mg TID PRN PO FEVER Last administered on 07/04/16 01:29; Admin Dose 600 MG; Start 07/03/16 at 19:30 Vancomycin HCl/ Sodium Chloride (Vancocin/NS) 250 ml @ 83.333 mls/ hr Q12H IVPB Last administered on 07/10/16 10:13; Admin Dose 83.333 MLS/HR; Start at 22:00 GUERLINE SULLIVAN MD Jul 10, 2016 19:06
[2016-07-10 20:11] VITALS: BP 100/60; RESP 18
[2016-07-10] MEDS: SCOPOLAMINE 1.5 MG PATCH TRANSDERM SCH (21:58)
[2016-07-10] MEDS: LORAZEPAM 2 MG INJ IV PRN (22:36)
[2016-07-11] MEDS: ALBUTEROL/IPRATROPIUM (NEB) 3 ML AMP HHN SCH ×4 (02:39→19:43)
[2016-07-11] MEDS: SOD CHLORIDE 0.9% 1,000 ML IV SCH ×2 (04:29→21:33)
[2016-07-11 05:45] LABS: HEMATOCRIT 24.8 % (37.0-47.0); HEMOGLOBIN 8.6 g/dl (12.0-16.0); MEAN CORPUSCULAR HEMOGLOBIN 29.8 pg (29.0-33.0); MEAN CORPUSCULAR HGB CONC 34.7 g/dl (32.0-37.0); MEAN CORPUSCULAR VOLUME 85.9 fl (82.0-101.0); RED BLOOD COUNT 2.89 10^6/ul (4.20-5.40); RED CELL DISTRIBUTION WIDTH 15.9 % (11.5-14.5); UNCORRECTED WBC 0.1 10^3/ul (4.8-10.8); WHITE BLOOD COUNT 0.1 10^3/ul (4.8-10.8)
[2016-07-11] MEDS: LEVOTHYROXINE 100 MCG TAB PO SCH (05:46)
[2016-07-11] MEDS: PANTOPRAZOLE 40 MG INJ IV SCH (05:46)
[2016-07-11 06:08] LABS: ALBUMIN 2.8 g/dl (3.3-4.9)
[2016-07-11 06:09] LABS: POTASSIUM 3.3 mmol/L (3.5-5.1)
[2016-07-11 06:11] LABS: ALBUMIN/GLOBULIN RATIO 1.21; BILIRUBIN,INDIRECT 0.4 mg/dl (0-1.1); BILIRUBIN,TOTAL 0.4 mg/dl (0.2-1.3); CREATININE 0.34 mg/dl (0.44-1.00); TOTAL PROTEIN 5.1 g/dl (6.1-8.1)
[2016-07-11 06:12] LABS: CALCIUM 8.5 mg/dl (8.4-10.2)
[2016-07-11 06:40] LABS: CONDITION 1; LH ANALYZER COMMENTS 1; MEAN PLATELET VOLUME 7.5 fl (7.4-10.4); SUSPECT 1
[2016-07-11 06:43] LABS: PLATELET COUNT 16 10^3/UL (140-440)
[2016-07-11 07:53] VITALS: BP 109/61; RESP 18
[2016-07-11] MEDS: OCULAR LUBRICANT 3.5 GM OPH OINT BOTH EYES SCH (09:00)
[2016-07-11] MEDS: NYSTATIN SUSP 5 ML CUP PO SCH ×4 (09:00→21:35)
[2016-07-11] MEDS: COLLAGENASE 30 GM TUBE TOP SCH (09:00)
--- NOTE | 2016-07-11 09:33 | CONS ---
Date/Time of Note Date/Time of Note DATE: 07/11/16 TIME: 09:31 Assessment/Plan Assessment/Plan Chief Complaint/Hosp Course 56 yo female with massive neck mass causing tracheal compression and airway compromise s/p tracheostomy placement. 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 Pt was given cycle 1A and 1B of R HyperCVAD but had only a partial response to therapy and severe side effects. We have thus changed her chemotherapy regimen. She is now s/p cycle 1A of R-CODOX-M and has now completed her chemotherapy. Most recent CT neck showed resolution of the mass. Pt's counts are now improving and she is no longer transfusion dependant. She has since started Cycle 1B and is receiving R-IVAC Problems: Additional Assessment/Plan # Burkitt's lymphoma - currently day 10 cycle 1B R -IVAC. chemotherapy regimen is as follows Part 2: R-IVAC Rituximab (Rituxan) 375 mg/m2 IV once on day 1 Ifosfamide (Ifex) 1500 mg/m2 IV over 2 hours once per day on days 1 to 5 Etoposide (Vepesid) 60 mg/m2 IV over 1 hour once per day on days 1 to 5 Cytarabine (Cytosar) 2 g/m2 IV over 3 hours Q12H on days 1 & 2 (4 doses total) [place] (Mesnex) 300 mg/m2 (mixed with Ifosfamide (Ifex)) , then 300mg/m2 IV every four hours x 2, on days 1 to 5 # Neutropenic fevers -appreciate ID recs. continue meropenem and vancomycin -f/u blood and urine cultures # Supportive Care and prophylactic meds -Started Acyclovir 400mg BID -fluconazole 100mg q day -Neupogen 300mcg q day day after chemotherapy is completed -Zofran ordered prn nausea #Expected Pancytopenia -keep Hg> 8 and platelets > 10. pt to get 1 units of prbc today # Elevated AST and ALT, likely related to methotrexate. 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 all steroids should be discontinued for now unless they are part of the chemotherapy regimen -continue to work with physical therapy. 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 -uric acid level ok Approximately 40 min were spent at patient's bedside and in coordination of her care Consultation Date/Type/Reason Admit Date/Time Jun 02, 2016 at 15:10 Initial Consult Date 06/02/16 Type of Consultation: Hematology Reason for Consultation Burkitt's lymphoma Referring Provider: TELLY SOLANO MD 24 HR Interval Summary Free Text/Dictation nausea continues to improve. no fevers. pt is ambulating Exam/Review of Systems Vital Signs Vitals Vital Signs Date Time Temp Pulse Resp B/P Pulse Ox O2 Delivery O2 Flow Rate FiO2 07/11/16 07:53 98.6 94 18 109/61 99 07/11/16 07:19 Aerosol 5.0 28 Intake and Output 07/10/16 07/10/16 07/11/16 15:00 23:00 07:00 Intake Total 304 ml 1224 ml 200 ml Output Total 600 ml Balance 304 ml 1224 ml -400 ml Exam Constitutional: alert, oriented Psych: no complaints Head: atraumatic, normocephalic Eyes: nl conjunctiva ENMT: nl external ears & nose Neck: non-tender, other (trach in place), supple Respiratory: clear to auscultation Cardiovascular: nl pulses, regular rate and rhythm Gastrointestinal: soft Musculoskeletal: nl extremities to inspection, nl gait and stance Extremities: normal pulses Results Result Diagram: 07/11/16 0425 07/11/16 0425 Results 24 hrs Laboratory Tests Test 07/11/16 04:25 Alanine Aminotransferase (ALT/SGPT) 48 Albumin 2.8 L Albumin/Globulin Ratio 1.21 Alkaline Phosphatase 113 Anion Gap 12 Aspartate Amino Transf (AST/SGOT) 25 Basophils # Basophils % Blood Morphology Comment Blood Urea Nitrogen 2 L Calcium Level 8.5 Carbon Dioxide Level 25 Chloride Level 107 Creatinine 0.34 L Direct Bilirubin 0.00 Eosinophils # Eosinophils % Globulin 2.30 Glucose Level 90 Hematocrit 24.8 L Hemoglobin 8.6 L Indirect Bilirubin 0.4 Lactate Dehydrogenase 347 Lymphocytes # Mean Corpuscular Hemoglobin 29.8 Mean Corpuscular Hemoglobin Concent 34.7 Mean Corpuscular Volume 85.9 Mean Platelet Volume 7.5 Monocytes # Monocytes % Neutrophils # Neutrophils % Platelet Count 16 #*L Potassium Level 3.3 L Red Blood Count 2.89 L Red Cell Distribution Width 15.9 H Sodium Level 141 Total Bilirubin 0.4 Total Protein 5.1 L White Blood Count 0.1 #L Medications Medications Current Medications Acyclovir (Zovirax) 400 mg BID PO Last administered on 07/10/16 21:58; Admin Dose 400 MG; Start 06/02/16 at 14:30 Diphenhydramine HCl (Benadryl) 25 mg Q4H PRN IV ALLERGIC REACTION Last administered on 06/06/16 20:26; Admin Dose 25 MG; Start 06/02/16 at 18:30 Dexamethasone 10 mg 10 mg Q4H PRN IV ALLERGIC REACTION; Start 06/02/16 at 18: 30 Ondansetron HCl/ Sodium Chloride (Zofran Inj/NS) 54 ml @ 216 mls/hr Q6H PRN IV NAUSEA AND/OR VOMITING Last administered on 07/10/16 19:23; Admin Dose 216 MLS/HR; Start 06/02/16 at 18:30 Ondansetron HCl (Zofran Inj) 4 mg Q6H PRN IV NAUSEA AND/OR VOMITING Last administered on 07/10/16 22:44; Admin Dose 4 MG; Start 06/03/16 at 17:00 Acetaminophen (Tylenol Tab) 650 mg Q6H PRN PO PAIN LEVEL 1-3 OR FEVER Last administered on 07/08/16 16:56; Admin Dose 650 MG; Start 06/03/16 at 17:00 Acetaminophen (Tylenol Supp) 650 mg Q6H PRN [place] PAIN LEVEL 1-3 OR FEVER Last administered on 06/09/16at 03:37; Admin Dose 650 MG; Start 06/03/16 at 17:00 Docusate Sodium (Colace) 100 mg Q12H PRN PO CONSTIPATION Last administered on 06/20/16 22:25; Admin Dose 100 MG; Start 06/03/16 at 17:00 Magnesium Hydroxide (Milk Of Mag) 30 ml DAILY PRN PO CONSTIPATION Last administered on 06/20/16 06:13; Admin Dose 30 ML; Start 06/03/16 at 17:00 Bisacodyl (Dulcolax) 5 mg DAILY PRN PO CONSTIPATION; Start 06/03/16 at 17:00 Bisacodyl (Dulcolax Supp) 10 mg DAILY PRN [place] CONSTIPATION Last administered on 06/21/16 05:18; Admin Dose 10 MG; Start 06/03/16 at 17:00 Sodium Biphosphate/ Sodium Phosphate (Fleet Enema) 133 ml DAILY PRN [place] CONSTIPATION; Start 06/03/16 at 17:00 Enoxaparin Sodium (Lovenox) 30 mg DAILY SC Last administered on 06/12/16at 08: 27; Admin Dose 30 MG; Start 06/04/16 at 09:00; Status Future Hold Allopurinol (Zyloprim) 300 mg DAILY PO Last administered on 07/10/16 09:21; Admin Dose 300 MG; Start 06/04/16 at 09:00 Eye Lubricant (Artificial Tears Oph) 2 drop QID BOTH EYES Last administered on 07/10/16 21:57; Admin Dose 2 DROP; Start 06/03/16 at 21:00 Eye Lubricant (Akwa Oint) 1 applic DAILY BOTH EYES Last administered on 09:18; Admin Dose 1 APPLIC; Start 06/04/16 at 09:00 Gabapentin (Neurontin) 200 mg TID PO Last administered on 07/10/16 21:58; Admin Dose 200 MG; Start 06/03/16 at 21:00 Levothyroxine Sodium (Synthroid) 100 mcg DAILY@06 PO Last administered on 05:46; Admin Dose 100 MCG; Start 06/04/16 at 06:00 Pantoprazole (Protonix Iv) 40 mg DAILY@06 IV Last administered on 07/11/16 05: 46; Admin Dose 40 MG; Start 06/09/16 at 06:00 Lorazepam (Ativan) 1 mg Q6H PRN IV AGITATION/ANXIETY Last administered on 22:36; Admin Dose 1 MG; Start 06/08/16 at 18:00 Acetaminophen/ Hydrocodone Bitart ([place] (5/325)) 1 tab Q6H PRN PO PAIN Last administered on 06/11/16at 17:38; Admin Dose 1 TAB; Start 06/11/16 at 17:30 Collagenase (Santyl) 1 applic DAILY TOP Last administered on 07/10/16 09:27; Admin Dose 1 APPLIC; Start 06/12/16 at 09:00 Nystatin (Nystatin Susp) 5 ml QID PO Last administered on 07/10/16 21:57; Admin Dose 5 ML; Start 06/18/16 at 17:00 Scopolamine (Transderm-Scop) 1 patch Q72H TRANSDERM Last administered on 21:58; Admin Dose 1 PATCH; Start 06/22/16 at 21:00 Fluconazole 100 mg 100 mg DAILY PO Last administered on 07/10/16 09:18; Admin Dose 100 MG; Start 06/28/16 at 09:00 Sodium Chloride (NS) 1,000 ml @ 100 mls/hr Q10H IV Last administered on 04:29; Admin Dose 100 MLS/HR; Start 07/01/16 at 19:00 Lactobacillus Acidoph/Bulgaricus (Floranex) 1 tab BID PO Last administered on 21:58; Admin Dose 1 TAB; Start 07/01/16 at 21:00 Potassium Chloride (Klor-Con 20) 20 meq BID PO Last administered on 07/10/16 21:58; Admin Dose 20 MEQ; Start 07/03/16 at 21:00 Ibuprofen 600 mg 600 mg TID PRN PO FEVER Last administered on 07/04/16 01:29; Admin Dose 600 MG; Start 07/03/16 at 19:30 Vancomycin HCl/ Sodium Chloride (Vancocin/NS) 250 ml @ 83.333 mls/ hr Q12H IVPB Last administered on 07/10/16 21:57; Admin Dose 83.333 MLS/HR; Start at 22:00 CHANDRIKA MERLOS M.D. Jul 11, 2016 09:33
[2016-07-11] MEDS: ALLOPURINOL 300 MG TAB PO SCH (11:16)
[2016-07-11] MEDS: FLUCONAZOLE 100 MG TAB PO SCH (11:16)
[2016-07-11] MEDS: LACTOBACILLUS CHEW TAB PO SCH ×2 (11:16→21:34)
[2016-07-11] MEDS: GABAPENTIN 100 MG CAP PO SCH ×3 (11:16→21:35)
[2016-07-11] MEDS: ACYCLOVIR 400 MG TAB PO SCH ×2 (11:16→21:34)
[2016-07-11] MEDS: ARTIFICIAL TEARS 15 ML OPH BOTH EYES SCH ×4 (11:17→21:55)
[2016-07-11] MEDS: POTASSIUM CHLORIDE (SR) 20 MEQ TAB PO SCH ×2 (11:18→21:35)
[2016-07-11] MEDS: VANCOMYCIN 1.25 GM in SOD CHLORIDE 0.9% 250 ML IVPB SCH (11:40)
--- NOTE | 2016-07-11 12:26 | PN ---
DATE: 07/11/2016 SUBJECTIVE: No acute changes. The patient is alert, looks comfortable. Denies pain. No nausea, v omiting, diarrhea. No dysuria. INDWELLINGS: Trach, PICC line. ANTIMICROBIALS: 1. Vancomycin. 2. Oral nystatin. 3. Diflucan. 4. Acyclovir. LABORATORY: WBC today 0.1, H and H 8.6 and 24.8, platelets 16, BUN 2, creatinine 0.34. PHYSICAL EXAMINATION: GENERAL: This is a fragile, middle-aged woman who is alert, in no distress. HEENT: Head atraumatic, normocephalic. Sclerae anicteric. Buccal mucosa pink with some thrush on her tongue. NECK: Supple. Tracheostomy present. CHEST: Chest rise symmetrical. Breath sounds clear to auscultation. HEART: S1, S2. ABDOMEN: Soft, bowel tones present. EXTREMITIES: Without cyanosis. ASSESSMENT: 1. Systemic inflammatory response syndrome, status post fever. 2. MRSA sputum colonization, remains on IV vancomycin. 3. Neutropenia. 4. Stage III Burkitt's lymphoma, in chemotherapy. 5. Status post tracheostomy secondary to neck mass. 6. Status post Pseudomonas aeruginosa urinary tract infection. PLAN: The patient remains stable, no fevers. Continue present care, physical therapy and follow on cology recommendations. Dictated By: [employer] TECH for JILLIAN CUEVAS/YUNI Conf#: [id number] DID#: [id number]
[2016-07-11 12:49] LABS: NEUTROPHIL # 0.1 10^3/ul (1.6-7.5)
[2016-07-11] MEDS: ONDANSETRON 4 MG INJ IV PRN (17:11)
[2016-07-11 19:10] VITALS: BP 115/70; RESP 18
--- NOTE | 2016-07-11 20:50 | PN ---
Date/Time of Note Date/Time of Note DATE: 07/11/16 TIME: 20:49 Assessment/Plan VTE Prophylaxis VTE Prophylaxis Intervention: other Lines/Catheters IV Catheter Type (from Nrs): PICC Line Central line still needed: Yes Urinary Cath still in place: No Assessment/Plan Chief Complaint/Hosp Course IMPRESSION: The patient has Burkitt's lymphoma HX tracheostomy, status post thyroid mass, pancytopenia, abnormal liver function test. better SEPSIS better gallstone ABN LFT better anemia post chemo uti pancytopenia hypokalemia PLAN per oncology LABS chemo per id ck cbc bmp kcl Problems: Subjective 24 Hr Interval Summary Cardiovascular: no complaints Gastrointestinal: no complaints Genitourinary: no complaints Exam/Review of Systems Vital Signs Vitals Vital Signs Date Time Temp Pulse Resp B/P Pulse Ox O2 Delivery O2 Flow Rate FiO2 07/11/16 19:49 5.0 28 07/11/16 19:49 98 20 97 Aerosol 07/11/16 19:10 98.7 115/70 Intake and Output 07/10/16 07/10/16 07/11/16 15:00 23:00 07:00 Intake Total 304 ml 1224 ml 200 ml Output Total 600 ml Balance 304 ml 1224 ml -400 ml Exam Neck: supple Respiratory: clear to auscultation Cardiovascular: regular rate and rhythm Gastrointestinal: soft Musculoskeletal: nl extremities to inspection Results Result Diagram: 07/11/16 0425 07/11/16 0425 Results 24 hrs Laboratory Tests Test 07/11/16 04:25 Alanine Aminotransferase (ALT/SGPT) 48 Albumin 2.8 L Albumin/Globulin Ratio 1.21 Alkaline Phosphatase 113 Anion Gap 12 Aspartate Amino Transf (AST/SGOT) 25 Basophils # 0.0 Basophils % 1.0 Blood Morphology Comment Blood Urea Nitrogen 2 L Calcium Level 8.5 Carbon Dioxide Level 25 Chloride Level 107 Creatinine 0.34 L Direct Bilirubin 0.00 Eosinophils # 0.0 Eosinophils % 1.0 Globulin 2.30 Glucose Level 90 Hematocrit 24.8 L Hemoglobin 8.6 L Indirect Bilirubin 0.4 Lactate Dehydrogenase 347 Lymphocytes # Mean Corpuscular Hemoglobin 29.8 Mean Corpuscular Hemoglobin Concent 34.7 Mean Corpuscular Volume 85.9 Mean Platelet Volume 7.5 Monocytes # Monocytes % Neutrophils # 0.1 L Neutrophils % 98.0 H Platelet Count 16 #*L Potassium Level 3.3 L Red Blood Count 2.89 L Red Cell Distribution Width 15.9 H Sodium Level 141 Total Bilirubin 0.4 Total Protein 5.1 L White Blood Count 0.1 #L Medications Medications Current Medications Acyclovir (Zovirax) 400 mg BID PO Last administered on 07/11/16 11:16; Admin Dose 400 MG; Start 06/02/16 at 14:30 Diphenhydramine HCl (Benadryl) 25 mg Q4H PRN IV ALLERGIC REACTION Last administered on 06/06/16 20:26; Admin Dose 25 MG; Start 06/02/16 at 18:30 Dexamethasone 10 mg 10 mg Q4H PRN IV ALLERGIC REACTION; Start 06/02/16 at 18: 30 Ondansetron HCl/ Sodium Chloride (Zofran Inj/NS) 54 ml @ 216 mls/hr Q6H PRN IV NAUSEA AND/OR VOMITING Last administered on 07/10/16 19:23; Admin Dose 216 MLS/HR; Start 06/02/16 at 18:30 Ondansetron HCl (Zofran Inj) 4 mg Q6H PRN IV NAUSEA AND/OR VOMITING Last administered on 07/11/16 17:11; Admin Dose 4 MG; Start 06/03/16 at 17:00 Acetaminophen (Tylenol Tab) 650 mg Q6H PRN PO PAIN LEVEL 1-3 OR FEVER Last administered on 07/08/16 16:56; Admin Dose 650 MG; Start 06/03/16 at 17:00 Acetaminophen (Tylenol Supp) 650 mg Q6H PRN [place] PAIN LEVEL 1-3 OR FEVER Last administered on 06/09/16 03:37; Admin Dose 650 MG; Start 06/03/16 at 17:00 Docusate Sodium (Colace) 100 mg Q12H PRN PO CONSTIPATION Last administered on 06/20/16 22:25; Admin Dose 100 MG; Start 06/03/16 at 17:00 Magnesium Hydroxide (Milk Of Mag) 30 ml DAILY PRN PO CONSTIPATION Last administered on 06/20/16 06:13; Admin Dose 30 ML; Start 06/03/16 at 17:00 Bisacodyl (Dulcolax) 5 mg DAILY PRN PO CONSTIPATION; Start 06/03/16 at 17:00 Bisacodyl (Dulcolax Supp) 10 mg DAILY PRN [place] CONSTIPATION Last administered on 06/21/16 05:18; Admin Dose 10 MG; Start 06/03/16 at 17:00 Sodium Biphosphate/ Sodium Phosphate (Fleet Enema) 133 ml DAILY PRN [place] CONSTIPATION; Start 06/03/16 at 17:00 Enoxaparin Sodium (Lovenox) 30 mg DAILY SC Last administered on 06/12/16at 08: 27; Admin Dose 30 MG; Start 06/04/16 at 09:00; Status Future Hold Allopurinol (Zyloprim) 300 mg DAILY PO Last administered on 07/11/16 11:16; Admin Dose 300 MG; Start 06/04/16 at 09:00 Eye Lubricant (Artificial Tears Oph) 2 drop QID BOTH EYES Last administered on 07/11/16 11:17; Admin Dose 2 DROP; Start 06/03/16 at 21:00 Eye Lubricant (Akwa Oint) 1 applic DAILY BOTH EYES Last administered on 09:18; Admin Dose 1 APPLIC; Start 06/04/16 at 09:00 Gabapentin (Neurontin) 200 mg TID PO Last administered on 07/11/16 11:16; Admin Dose 200 MG; Start 06/03/16 at 21:00 Levothyroxine Sodium (Synthroid) 100 mcg DAILY@06 PO Last administered on 05:46; Admin Dose 100 MCG; Start 06/04/16 at 06:00 Pantoprazole (Protonix Iv) 40 mg DAILY@06 IV Last administered on 07/11/16 05: 46; Admin Dose 40 MG; Start 06/09/16 at 06:00 Lorazepam (Ativan) 1 mg Q6H PRN IV AGITATION/ANXIETY Last administered on 22:36; Admin Dose 1 MG; Start 06/08/16 at 18:00 Acetaminophen/ Hydrocodone Bitart ([place] (5/325)) 1 tab Q6H PRN PO PAIN Last administered on 06/11/16at 17:38; Admin Dose 1 TAB; Start 06/11/16 at 17:30 Collagenase (Santyl) 1 applic DAILY TOP Last administered on 07/10/16 09:27; Admin Dose 1 APPLIC; Start 06/12/16 at 09:00 Nystatin (Nystatin Susp) 5 ml QID PO Last administered on 07/11/16 09:00; Admin Dose 5 ML; Start 06/18/16 at 17:00 Scopolamine (Transderm-Scop) 1 patch Q72H TRANSDERM Last administered on 21:58; Admin Dose 1 PATCH; Start 06/22/16 at 21:00 Fluconazole 100 mg 100 mg DAILY PO Last administered on 07/11/16 11:16; Admin Dose 100 MG; Start 06/28/16 at 09:00 Sodium Chloride (NS) 1,000 ml @ 100 mls/hr Q10H IV Last administered on 04:29; Admin Dose 100 MLS/HR; Start 07/01/16 at 19:00 Lactobacillus Acidoph/Bulgaricus (Floranex) 1 tab BID PO Last administered on 11:16; Admin Dose 1 TAB; Start 07/01/16 at 21:00 Potassium Chloride (Klor-Con 20) 20 meq BID PO Last administered on 07/11/16 11:18; Admin Dose 20 MEQ; Start 07/03/16 at 21:00 Ibuprofen 600 mg 600 mg TID PRN PO FEVER Last administered on 07/04/16 01:29; Admin Dose 600 MG; Start 07/03/16 at 19:30 Vancomycin HCl (Vancocin) 250 ml @ 125 mls/hr Q12H IVPB ; Start 07/11/16 at 22: 00 GUERLINE SULLIVAN MD Jul 11, 2016 20:50
[2016-07-11] MEDS ORDERED: POTASSIUM CHLORIDE 250 ML IVPB ONE (21:00)
[2016-07-11] MEDS: VANCOMYCIN 1 GM in NS 250 ML IVPB SCH ×2 (22:00→23:29)
[2016-07-11] MEDS: LORAZEPAM 2 MG INJ IV PRN (23:34)
[2016-07-12] MEDS: ALBUTEROL/IPRATROPIUM (NEB) 3 ML AMP HHN SCH ×4 (01:08→19:33)
[2016-07-12] MEDS: SOD CHLORIDE 0.9% 1,000 ML IV SCH ×2 (05:00→16:42)
[2016-07-12 05:36] LABS: HEMATOCRIT 22.7 % (37.0-47.0); HEMOGLOBIN 7.6 g/dl (12.0-16.0); MEAN CORPUSCULAR HEMOGLOBIN 28.9 pg (29.0-33.0); MEAN CORPUSCULAR HGB CONC 33.6 g/dl (32.0-37.0); MEAN CORPUSCULAR VOLUME 85.8 fl (82.0-101.0); MEAN PLATELET VOLUME 7.4 fl (7.4-10.4); RED BLOOD COUNT 2.65 10^6/ul (4.20-5.40); RED CELL DISTRIBUTION WIDTH 15.8 % (11.5-14.5); UNCORRECTED WBC 0.2 10^3/ul (4.8-10.8); WHITE BLOOD COUNT 0.2 10^3/ul (4.8-10.8)
[2016-07-12 06:03] LABS: CONDITION 1; LH ANALYZER COMMENTS 1; SUSPECT 1
[2016-07-12 06:06] LABS: PLATELET COUNT 5 10^3/UL (140-440)
[2016-07-12 06:12] LABS: ALBUMIN 2.7 g/dl (3.3-4.9)
[2016-07-12 06:13] LABS: POTASSIUM 3.6 mmol/L (3.5-5.1)
[2016-07-12 06:15] LABS: ALBUMIN/GLOBULIN RATIO 1.12; BILIRUBIN,INDIRECT 0.4 mg/dl (0-1.1); BILIRUBIN,TOTAL 0.4 mg/dl (0.2-1.3); CREATININE 0.37 mg/dl (0.44-1.00); TOTAL PROTEIN 5.1 g/dl (6.1-8.1)
[2016-07-12 06:16] LABS: CALCIUM 8.6 mg/dl (8.4-10.2)
[2016-07-12] MEDS: PANTOPRAZOLE 40 MG INJ IV SCH (06:33)
[2016-07-12] MEDS: LEVOTHYROXINE 100 MCG TAB PO SCH (06:33)
[2016-07-12] MEDS ORDERED: ACETAMINOPHEN 500 MG TAB PO ONE (06:55)
[2016-07-12] MEDS ORDERED: DIPHENHYDRAMINE 25 MG CAP PO ONE ×2 (07:00→17:00)
[2016-07-12 08:14] VITALS: BP 121/70; RESP 19
[2016-07-12 09:48] LABS: LYMPHOCYTES # 0.2 10^3/ul (0.8-2.9)
[2016-07-12 09:49] LABS: PLATELET ESTIMATE PLT APPEAR DECREASED
[2016-07-12] MEDS: NYSTATIN SUSP 5 ML CUP PO SCH ×4 (11:01→21:03)
[2016-07-12] MEDS: ALLOPURINOL 300 MG TAB PO SCH (11:02)
[2016-07-12] MEDS: ACYCLOVIR 400 MG TAB PO SCH ×2 (11:02→21:02)
[2016-07-12] MEDS: FLUCONAZOLE 100 MG TAB PO SCH (11:02)
[2016-07-12] MEDS: GABAPENTIN 100 MG CAP PO SCH ×3 (11:02→21:03)
[2016-07-12] MEDS: POTASSIUM CHLORIDE (SR) 20 MEQ TAB PO SCH ×2 (11:02→21:02)
[2016-07-12] MEDS: DOCUSATE SODIUM 100 MG CAP PO PRN (11:02)
[2016-07-12] MEDS: OCULAR LUBRICANT 3.5 GM OPH OINT BOTH EYES SCH (11:03)
[2016-07-12] MEDS: ARTIFICIAL TEARS 15 ML OPH BOTH EYES SCH ×4 (11:03→21:02)
[2016-07-12] MEDS: LACTOBACILLUS CHEW TAB PO SCH ×2 (11:03→21:03)
[2016-07-12] MEDS: VANCOMYCIN 1 GM in NS 250 ML IVPB SCH ×2 (11:04→22:39)
[2016-07-12] MEDS: COLLAGENASE 30 GM TUBE TOP SCH (11:04)
--- NOTE | 2016-07-12 11:36 | PN ---
Date/Time of Note Date/Time of Note DATE: 07/12/16 TIME: 11:34 Assessment/Plan VTE Prophylaxis VTE Prophylaxis Intervention: LMWH Lines/Catheters IV Catheter Type (from Nrsg): PICC Line Central line still needed: Yes (chemotherapy ) Urinary Cath still in place: No Assessment/Plan Assessment/Plan Burkitt's lymphoma HX tracheostomy, status post thyroid mass, pancytopenia, abnormal liver function test. better SEPSIS better gallstone ABN LFT better anemia post chemo uti pancytopenia hypokalemia PLAN lovenox for DVT prophylaxis per oncology Plan for chemo awaiting placement Subjective 24 Hr Interval Summary Free Text/Dictation no acute events, oncolgoy plannign for next chemo on thursday Exam/Review of Systems Vital Signs Vitals Vital Signs Date Time Temp Pulse Resp B/P Pulse Ox O2 Delivery O2 Flow Rate FiO2 07/12/16 08:34 96 20 96 Aerosol 5.0 28 07/12/16 08:14 99.1 121/70 Intake and Output 07/11/16 07/11/16 07/12/16 15:00 23:00 07:00 Intake Total 1770 ml 1700 ml Output Total 1300 ml 1300 ml Balance 470 ml 400 ml Results Result Diagram: 07/12/16 0445 07/12/16 0445 Results 24 hrs Laboratory Tests Test 07/12/16 04:45 Alanine Aminotransferase (ALT/SGPT) 46 Albumin 2.7 L Albumin/Globulin Ratio 1.12 Alkaline Phosphatase 114 Anion Gap 12 Aspartate Amino Transf (AST/SGOT) 24 Basophils # Basophils % Blood Morphology Comment Blood Urea Nitrogen 3 L Calcium Level 8.6 Carbon Dioxide Level 25 Chloride Level 108 Creatinine 0.37 L Direct Bilirubin 0.00 Eosinophils # 0.0 Eosinophils % 2.0 Globulin 2.40 Glucose Level 83 Hematocrit 22.7 L Hemoglobin 7.6 L Indirect Bilirubin 0.4 Lactate Dehydrogenase 360 Lymphocytes # 0.2 L Lymphocytes % 93.0 H Mean Corpuscular Hemoglobin 28.9 L Mean Corpuscular Hemoglobin Concent 33.6 Mean Corpuscular Volume 85.8 Mean Platelet Volume 7.4 Monocytes # 0.0 L Monocytes % 2.0 Neutrophils # 0.0 L Neutrophils % 3.0 L Platelet Count 5 #*L Platelet Estimate PLT APPEAR DECREASED Potassium Level 3.6 Red Blood Count 2.65 L Red Cell Distribution Width 15.8 H Sodium Level 141 Total Bilirubin 0.4 Total Protein 5.1 L White Blood Count 0.2 #L Medications Medications Current Medications Acyclovir (Zovirax) 400 mg BID PO Last administered on 07/12/16 11:02; Admin Dose 400 MG; Start 06/02/16 at 14:30 Diphenhydramine HCl (Benadryl) 25 mg Q4H PRN IV ALLERGIC REACTION Last administered on 06/06/16 20:26; Admin Dose 25 MG; Start 06/02/16 at 18:30 Dexamethasone 10 mg 10 mg Q4H PRN IV ALLERGIC REACTION; Start 06/02/16 at 18: 30 Ondansetron HCl/ Sodium Chloride (Zofran Inj/NS) 54 ml @ 216 mls/hr Q6H PRN IV NAUSEA AND/OR VOMITING Last administered on 07/10/16 19:23; Admin Dose 216 MLS/HR; Start 06/02/16 at 18:30 Ondansetron HCl (Zofran Inj) 4 mg Q6H PRN IV NAUSEA AND/OR VOMITING Last administered on 07/11/16 17:11; Admin Dose 4 MG; Start 06/03/16 at 17:00 Acetaminophen (Tylenol Tab) 650 mg Q6H PRN PO PAIN LEVEL 1-3 OR FEVER Last administered on 07/08/16 16:56; Admin Dose 650 MG; Start 06/03/16 at 17:00 Acetaminophen (Tylenol Supp) 650 mg Q6H PRN [place] PAIN LEVEL 1-3 OR FEVER Last administered on 06/09/16 03:37; Admin Dose 650 MG; Start 06/03/16 at 17:00 Docusate Sodium (Colace) 100 mg Q12H PRN PO CONSTIPATION Last administered on 11:02; Admin Dose 100 MG; Start 06/03/16 at 17:00 Magnesium Hydroxide (Milk Of Mag) 30 ml DAILY PRN PO CONSTIPATION Last administered on 06/20/16 06:13; Admin Dose 30 ML; Start 06/03/16 at 17:00 Bisacodyl (Dulcolax) 5 mg DAILY PRN PO CONSTIPATION Last administered on 11:02; Admin Dose 5 MG; Start 06/03/16 at 17:00 Bisacodyl (Dulcolax Supp) 10 mg DAILY PRN [place] CONSTIPATION Last administered on 06/21/16at 05:18; Admin Dose 10 MG; Start 06/03/16 at 17:00 Sodium Biphosphate/ Sodium Phosphate (Fleet Enema) 133 ml DAILY PRN [place] CONSTIPATION; Start 06/03/16 at 17:00 Enoxaparin Sodium (Lovenox) 30 mg DAILY SC Last administered on 06/12/16at 08: 27; Admin Dose 30 MG; Start 06/04/16 at 09:00; Status Future Hold Allopurinol (Zyloprim) 300 mg DAILY PO Last administered on 07/12/16 11:02; Admin Dose 300 MG; Start 06/04/16 at 09:00 Eye Lubricant (Artificial Tears Oph) 2 drop QID BOTH EYES Last administered on 07/12/16 11:03; Admin Dose 2 DROP; Start 06/03/16 at 21:00 Eye Lubricant ([place] Oint) 1 applic DAILY BOTH EYES Last administered on 11:03; Admin Dose 1 APPLIC; Start 06/04/16 at 09:00 Gabapentin (Neurontin) 200 mg TID PO Last administered on 07/12/16 11:02; Admin Dose 200 MG; Start 06/03/16 at 21:00 Levothyroxine Sodium (Synthroid) 100 mcg DAILY@06 PO Last administered on 06:33; Admin Dose 100 MCG; Start 06/04/16 at 06:00 Pantoprazole (Protonix Iv) 40 mg DAILY@06 IV Last administered on 07/12/16 06: 33; Admin Dose 40 MG; Start 06/09/16 at 06:00 Lorazepam (Ativan) 1 mg Q6H PRN IV AGITATION/ANXIETY Last administered on 23:34; Admin Dose 1 MG; Start 06/08/16 at 18:00 Acetaminophen/ Hydrocodone Bitart ([place] (5/325)) 1 tab Q6H PRN PO PAIN Last administered on 06/11/16at 17:38; Admin Dose 1 TAB; Start 06/11/16 at 17:30 Collagenase (Santyl) 1 applic DAILY TOP Last administered on 07/12/16 11:04; Admin Dose 1 APPLIC; Start 06/12/16 at 09:00 Nystatin (Nystatin Susp) 5 ml QID PO Last administered on 07/12/16 11:01; Admin Dose 5 ML; Start 06/18/16 at 17:00 Scopolamine (Transderm-Scop) 1 patch Q72H TRANSDERM Last administered on 21:58; Admin Dose 1 PATCH; Start 06/22/16 at 21:00 Fluconazole 100 mg 100 mg DAILY PO Last administered on 07/12/16 11:02; Admin Dose 100 MG; Start 06/28/16 at 09:00 Sodium Chloride (NS) 1,000 ml @ 100 mls/hr Q10H IV Last administered on 21:33; Admin Dose 100 MLS/HR; Start 07/01/16 at 19:00 Lactobacillus Acidoph/Bulgaricus (Floranex) 1 tab BID PO Last administered on 11:03; Admin Dose 1 TAB; Start 07/01/16 at 21:00 Potassium Chloride (Klor-Con 20) 20 meq BID PO Last administered on 07/12/16 11:02; Admin Dose 20 MEQ; Start 07/03/16 at 21:00 Ibuprofen 600 mg 600 mg TID PRN PO FEVER Last administered on 07/04/16 01:29; Admin Dose 600 MG; Start 07/03/16 at 19:30 Vancomycin HCl (Vancocin) 250 ml @ 125 mls/hr Q12H IVPB Last administered on 11:04; Admin Dose 125 MLS/HR; Start 07/11/16 at 22:00 TELLY SOLANO MD Jul 12, 2016 11:36
[2016-07-12] MEDS: ONDANSETRON 4 MG INJ IV PRN ×2 (13:39→21:02)
--- NOTE | 2016-07-12 15:06 | PN ---
Date/Time of Note Date/Time of Note DATE: 07/12/16 TIME: 14:55 Assessment/Plan VTE Prophylaxis VTE Prophylaxis Intervention: ambulation Lines/Catheters IV [facility] Type [facility]from [facility] PICC Line Central line still needed: Yes Urinary Cath still in place: No Assessment/Plan Chief Complaint/Hosp Course Patient admitted for chemotherapy. Now has severe fatigue and nausea. She is unable to keep any food. She is on IVs Problems: Assessment/Plan 1. High-grade lymphoma She had chemotherapy the hospital. She is now having nausea and severe fatigue 2. Dizziness and fatigue She complains of severe fatigue and also dizziness. Has difficulty in getting out of bed and walking. Will get physical therapy evaluation also she needs close follow-up with her labs especially CBC and BMP. 3. Pancytopenia She is afebrile but her WBC is only 200, hemoglobin 7.6 and platelets 5000. Will give her platelets today and also follow-up with packed cells. Will continue her Neupogen Subjective 24 Hr Interval Summary Free Text/Dictation This 56-year-old lady with history of high-grade lymphoma has had chemotherapy. She complains of nausea and fatigue. She states she is not able to keep any food she is afebrile Gastrointestinal: nausea, vomiting Musculoskeletal: back pain Neurologic: dizziness Psychological: anxiety Exam/Review of Systems Vital Signs Vitals Vital Signs Date Time Temp Pulse Resp B/P Pulse Ox O2 Delivery O2 Flow Rate FiO2 07/12/16 13:35 94 18 100 Aerosol 5.0 28 07/12/16 08:14 99.1 121/70 Intake and Output 07/11/16 07/11/16 07/12/16 15:00 23:00 07:00 Intake Total 1770 ml 1700 ml Output Total 1300 ml 1300 ml Balance 470 ml 400 ml Exam Constitutional: frail ENMT: nl external ears & nose, nl lips & teeth, nl nasal mucosa & septum Respiratory: other (She has distant breath sounds) Cardiovascular: nl pulses, regular rate and rhythm (Has sinus tachycardia) Musculoskeletal: joint tenderness Extremities: edema Skin: ecchymosis Results Result Diagram: 07/12/165 07/12/165 Results 24 hrs Laboratory Tests Test 07/12/16 04:45 Alanine Aminotransferase (ALT/SGPT) 46 Albumin 2.7 L Albumin/Globulin Ratio 1.12 Alkaline Phosphatase 114 Anion Gap 12 Aspartate Amino Transf (AST/SGOT) 24 Basophils # Basophils % Blood Morphology Comment Blood Urea Nitrogen 3 L Calcium Level 8.6 Carbon Dioxide Level 25 Chloride Level 108 Creatinine 0.37 L Direct Bilirubin 0.00 Eosinophils # 0.0 Eosinophils % 2.0 Globulin 2.40 Glucose Level 83 Hematocrit 22.7 L Hemoglobin 7.6 L Indirect Bilirubin 0.4 Lactate Dehydrogenase 360 Lymphocytes # 0.2 L Lymphocytes % 93.0 H Mean Corpuscular Hemoglobin 28.9 L Mean Corpuscular Hemoglobin Concent 33.6 Mean Corpuscular Volume 85.8 Mean Platelet Volume 7.4 Monocytes # 0.0 L Monocytes % 2.0 Neutrophils # 0.0 L Neutrophils % 3.0 L Platelet Count 5 #*L Platelet Estimate PLT APPEAR DECREASED Potassium Level 3.6 Red Blood Count 2.65 L Red Cell Distribution Width 15.8 H Sodium Level 141 Total Bilirubin 0.4 Total Protein 5.1 L White Blood Count 0.2 #L Medications Medications Current Medications Acyclovir (Zovirax) 400 mg BID PO Last administered on 07/12/16 11:02; Admin Dose 400 MG; Start 06/02/16 at 14:30 Diphenhydramine HCl (Benadryl) 25 mg Q4H PRN IV ALLERGIC REACTION Last administered on 06/06/16at 20:26; Admin Dose 25 MG; Start 06/02/16 at 18:30 Dexamethasone 10 mg 10 mg Q4H PRN IV ALLERGIC REACTION; Start 06/02/16 at 18: 30 Ondansetron HCl/ Sodium Chloride (Zofran Inj/NS) 54 ml @ 216 mls/hr Q6H PRN IV NAUSEA AND/OR VOMITING Last administered on 07/10/16 19:23; Admin Dose 216 MLS/HR; Start 06/02/16 at 18:30 Ondansetron HCl (Zofran Inj) 4 mg Q6H PRN IV NAUSEA AND/OR VOMITING Last administered on 07/12/16 13:39; Admin Dose 4 MG; Start 06/03/16 at 17:00 Acetaminophen (Tylenol Tab) 650 mg Q6H PRN PO PAIN LEVEL 1-3 OR FEVER Last administered on 07/08/16 16:56; Admin Dose 650 MG; Start 06/03/16 at 17:00 Acetaminophen (Tylenol Supp) 650 mg Q6H PRN [place] PAIN LEVEL 1-3 OR FEVER Last administered on 06/09/16 03:37; Admin Dose 650 MG; Start 06/03/16 at 17:00 Docusate Sodium (Colace) 100 mg Q12H PRN PO CONSTIPATION Last administered on 11:02; Admin Dose 100 MG; Start 06/03/16 at 17:00 Magnesium Hydroxide (Milk Of Mag) 30 ml DAILY PRN PO CONSTIPATION Last administered on 06/20/16at 06:13; Admin Dose 30 ML; Start 06/03/16 at 17:00 Bisacodyl (Dulcolax) 5 mg DAILY PRN PO CONSTIPATION Last administered on 11:02; Admin Dose 5 MG; Start 06/03/16 at 17:00 Bisacodyl (Dulcolax Supp) 10 mg DAILY PRN [place] CONSTIPATION Last administered on 06/21/16at 05:18; Admin Dose 10 MG; Start 06/03/16 at 17:00 Sodium Biphosphate/ Sodium Phosphate (Fleet Enema) 133 ml DAILY PRN [place] CONSTIPATION; Start 06/03/16 at 17:00 Enoxaparin Sodium (Lovenox) 30 mg DAILY SC Last administered on 06/12/16at 08: 27; Admin Dose 30 MG; Start 06/04/16 at 09:00; Status Future Hold Allopurinol (Zyloprim) 300 mg DAILY PO Last administered on 07/12/16 11:02; Admin Dose 300 MG; Start 06/04/16 at 09:00 Eye Lubricant (Artificial Tears Oph) 2 drop QID BOTH EYES Last administered on 07/12/16 13:39; Admin Dose 2 DROP; Start 06/03/16 at 21:00 Eye Lubricant (Akwa Oint) 1 applic DAILY BOTH EYES Last administered on 11:03; Admin Dose 1 APPLIC; Start 06/04/16 at 09:00 Gabapentin (Neurontin) 200 mg TID PO Last administered on 07/12/16 13:39; Admin Dose 200 MG; Start 06/03/16 at 21:00 Levothyroxine Sodium (Synthroid) 100 mcg DAILY@06 PO Last administered on 06:33; Admin Dose 100 MCG; Start 06/04/16 at 06:00 Pantoprazole (Protonix Iv) 40 mg DAILY@06 IV Last administered on 07/12/16 06: 33; Admin Dose 40 MG; Start 06/09/16 at 06:00 Lorazepam (Ativan) 1 mg Q6H PRN IV AGITATION/ANXIETY Last administered on 23:34; Admin Dose 1 MG; Start 06/08/16 at 18:00 Acetaminophen/ Hydrocodone Bitart ([place] (5/325)) 1 tab Q6H PRN PO PAIN Last administered on 06/11/16at 17:38; Admin Dose 1 TAB; Start 06/11/16 at 17:30 Collagenase (Santyl) 1 applic DAILY TOP Last administered on 07/12/16 11:04; Admin Dose 1 APPLIC; Start 06/12/16 at 09:00 Nystatin (Nystatin Susp) 5 ml QID PO Last administered on 07/12/16 13:39; Admin Dose 5 ML; Start 06/18/16 at 17:00 Scopolamine (Transderm-Scop) 1 patch Q72H TRANSDERM Last administered on 21:58; Admin Dose 1 PATCH; Start 06/22/16 at 21:00 Fluconazole 100 mg 100 mg DAILY PO Last administered on 07/12/16 11:02; Admin Dose 100 MG; Start 06/28/16 at 09:00 Sodium Chloride (NS) 1,000 ml @ 100 mls/hr Q10H IV Last administered on 21:33; Admin Dose 100 MLS/HR; Start 07/01/16 at 19:00 Lactobacillus Acidoph/Bulgaricus (Floranex) 1 tab BID PO Last administered on 11:03; Admin Dose 1 TAB; Start 07/01/16 at 21:00 Potassium Chloride (Klor-Con 20) 20 meq BID PO Last administered on 07/12/16 11:02; Admin Dose 20 MEQ; Start 07/03/16 at 21:00 Ibuprofen 600 mg 600 mg TID PRN PO FEVER Last administered on 07/04/16 01:29; Admin Dose 600 MG; Start 07/03/16 at 19:30 Vancomycin HCl (Vancocin) 250 ml @ 125 mls/hr Q12H IVPB ; Start 07/12/16 at 23: 00 Miscellaneous Information (*Rx Drug Level Order Reminder*) VANCOMYCIN TROUGH AT 1000 ONCE ONCE XX ; Start 07/13/16 at 10:00; Stop 07/13/16 at 10:01 DANIELA MAYEN MD Jul 12, 2016 15:05
[2016-07-12] MEDS: ACETAMINOPHEN 325 MG TAB PO PRN (16:42)
[2016-07-12 16:45] VITALS: BP 112/64; PULSE 91; RESP 18
--- NOTE | 2016-07-12 17:08 | CONS ---
Date/Time of Note Date/Time of Note DATE: 07/12/16 TIME: 17:07 Consult Date/Type/Reason Admit Date/Time Jun 02, 2016 at 15:10 Initial Consult Date 06/02/16 Type of Consultation: id Ordering Provider: TELLY SOLANO MD Subjective alert, c/o n/v, no diarrhea, no fevers, nad Objective Vital Signs Date Time Temp Pulse Resp B/P Pulse Ox O2 Delivery O2 Flow Rate FiO2 07/12/16 16:45 97.8 91 18 112/64 97 Trach Collar 5.0 07/12/16 13:35 28 Intake and Output 07/11/16 07/11/16 07/12/16 15:00 23:00 07:00 Intake Total 1770 ml 1700 ml Output Total 1300 ml 1300 ml Balance 470 ml 400 ml Results/Medications Result Diagram: 07/12/165 07/12/16444 Results 24 hrs Laboratory Tests Test 07/12/16 04:45 Alanine Aminotransferase (ALT/SGPT) 46 Albumin 2.7 L Albumin/Globulin Ratio 1.12 Alkaline Phosphatase 114 Anion Gap 12 Aspartate Amino Transf (AST/SGOT) 24 Basophils # Basophils % Blood Morphology Comment Blood Urea Nitrogen 3 L Calcium Level 8.6 Carbon Dioxide Level 25 Chloride Level 108 Creatinine 0.37 L Direct Bilirubin 0.00 Eosinophils # 0.0 Eosinophils % 2.0 Globulin 2.40 Glucose Level 83 Hematocrit 22.7 L Hemoglobin 7.6 L Indirect Bilirubin 0.4 Lactate Dehydrogenase 360 Lymphocytes # 0.2 L Lymphocytes % 93.0 H Mean Corpuscular Hemoglobin 28.9 L Mean Corpuscular Hemoglobin Concent 33.6 Mean Corpuscular Volume 85.8 Mean Platelet Volume 7.4 Monocytes # 0.0 L Monocytes % 2.0 Neutrophils # 0.0 L Neutrophils % 3.0 L Platelet Count 5 #*L Platelet Estimate PLT APPEAR DECREASED Potassium Level 3.6 Red Blood Count 2.65 L Red Cell Distribution Width 15.8 H Sodium Level 141 Total Bilirubin 0.4 Total Protein 5.1 L White Blood Count 0.2 #L Medications Current Medications Acyclovir (Zovirax) 400 mg BID PO Last administered on 07/12/16t 11:02; Admin Dose 400 MG; Start 06/02/16 at 14:30 Diphenhydramine HCl (Benadryl) 25 mg Q4H PRN IV ALLERGIC REACTION Last administered on 06/06/16 20:26; Admin Dose 25 MG; Start 06/02/16 at 18:30 Dexamethasone 10 mg 10 mg Q4H PRN IV ALLERGIC REACTION; Start 06/02/16 at 18: 30 Ondansetron HCl/ Sodium Chloride (Zofran Inj/NS) 54 ml @ 216 mls/hr Q6H PRN IV NAUSEA AND/OR VOMITING Last administered on 07/10/16 19:23; Admin Dose 216 MLS/HR; Start 06/02/16 at 18:30 Ondansetron HCl (Zofran Inj) 4 mg Q6H PRN IV NAUSEA AND/OR VOMITING Last administered on 07/12/16 13:39; Admin Dose 4 MG; Start 06/03/16 at 17:00 Acetaminophen (Tylenol Tab) 650 mg Q6H PRN PO PAIN LEVEL 1-3 OR FEVER Last administered on 07/12/16 16:42; Admin Dose 650 MG; Start 06/03/16 at 17:00 Acetaminophen (Tylenol Supp) 650 mg Q6H PRN [place] PAIN LEVEL 1-3 OR FEVER Last administered on 06/09/16 03:37; Admin Dose 650 MG; Start 06/03/16 at 17:00 Docusate Sodium (Colace) 100 mg Q12H PRN PO CONSTIPATION Last administered on 11:02; Admin Dose 100 MG; Start 06/03/16 at 17:00 Magnesium Hydroxide (Milk Of Mag) 30 ml DAILY PRN PO CONSTIPATION Last administered on 06/20/16 06:13; Admin Dose 30 ML; Start 06/03/16 at 17:00 Bisacodyl (Dulcolax) 5 mg DAILY PRN PO CONSTIPATION Last administered on 11:02; Admin Dose 5 MG; Start 06/03/16 at 17:00 Bisacodyl (Dulcolax Supp) 10 mg DAILY PRN OR CONSTIPATION Last administered on 06/21/16 05:18; Admin Dose 10 MG; Start 06/03/16 at 17:00 Sodium Biphosphate/ Sodium Phosphate (Fleet Enema) 133 ml DAILY PRN OR CONSTIPATION; Start 06/03/16 at 17:00 Enoxaparin Sodium (Lovenox) 30 mg DAILY SC Last administered on 12/22/16at 08: 27; Admin Dose 30 MG; Start 06/04/16 at 09:00; Status Future Hold Allopurinol (Zyloprim) 300 mg DAILY PO Last administered on 07/12/16 11:02; Admin Dose 300 MG; Start 06/04/16 at 09:00 Eye Lubricant (Artificial Tears Oph) 2 drop QID BOTH EYES Last administered on 07/12/16 13:39; Admin Dose 2 DROP; Start 06/03/16 at 21:00 Eye Lubricant (Akwa Oint) 1 applic DAILY BOTH EYES Last administered on 11:03; Admin Dose 1 APPLIC; Start 06/04/16 at 09:00 Gabapentin (Neurontin) 200 mg TID PO Last administered on 07/12/16 13:39; Admin Dose 200 MG; Start 06/03/16 at 21:00 Levothyroxine Sodium (Synthroid) 100 mcg DAILY@06 PO Last administered on 06:33; Admin Dose 100 MCG; Start 06/04/16 at 06:00 Pantoprazole (Protonix Iv) 40 mg DAILY@06 IV Last administered on 07/12/16 06: 33; Admin Dose 40 MG; Start 06/09/16 at 06:00 Lorazepam (Ativan) 1 mg Q6H PRN IV AGITATION/ANXIETY Last administered on 23:34; Admin Dose 1 MG; Start 06/08/16 at 18:00 Acetaminophen/ Hydrocodone Bitart ([place] (5/325)) 1 tab Q6H PRN PO PAIN Last administered on 06/11/16at 17:38; Admin Dose 1 TAB; Start 06/11/16 at 17:30 Collagenase (Santyl) 1 applic DAILY TOP Last administered on 07/12/16 11:04; Admin Dose 1 APPLIC; Start 06/12/16 at 09:00 Nystatin (Nystatin Susp) 5 ml QID PO Last administered on 07/12/16 13:39; Admin Dose 5 ML; Start 06/18/16 at 17:00 Scopolamine (Transderm-Scop) 1 patch Q72H TRANSDERM Last administered on 21:58; Admin Dose 1 PATCH; Start 06/22/16 at 21:00 Fluconazole 100 mg 100 mg DAILY PO Last administered on 07/12/16 11:02; Admin Dose 100 MG; Start 06/28/16 at 09:00 Sodium Chloride (NS) 1,000 ml @ 100 mls/hr Q10H IV Last administered on 16:42; Admin Dose 100 MLS/HR; Start 07/01/16 at 19:00 Lactobacillus Acidoph/Bulgaricus (Floranex) 1 tab BID PO Last administered on 11:03; Admin Dose 1 TAB; Start 07/01/16 at 21:00 Potassium Chloride (Klor-Con 20) 20 meq BID PO Last administered on 07/12/16 11:02; Admin Dose 20 MEQ; Start 07/03/16 at 21:00 Ibuprofen 600 mg 600 mg TID PRN PO FEVER Last administered on 07/04/16 01:29; Admin Dose 600 MG; Start 07/03/16 at 19:30 Vancomycin HCl (Vancocin) 250 ml @ 125 mls/hr Q12H IVPB ; Start 07/12/16 at 23: 00 Miscellaneous Information (*Rx Drug Level Order Reminder*) VANCOMYCIN TROUGH AT 1000 ONCE ONCE XX ; Start 07/13/16 at 10:00; Stop 07/13/16 at 10:01 Assessment/Plan Chief Complaint/Hosp Course INDWELLINGS: Trach, PICC line. ANTIMICROBIALS: 1. Vancomycin. 2. Oral nystatin. 3. Diflucan. 4. Acyclovir. PHYSICAL EXAMINATION: GENERAL: This is a fragile, middle-aged woman who is alert, in no distress. HEENT: Head atraumatic, normocephalic. Sclerae anicteric. Buccal mucosa pink with some thrush on her tongue. NECK: Supple. Tracheostomy present. CHEST: Chest rise symmetrical. Breath sounds clear to auscultation. HEART: S1, S2. ABDOMEN: Soft, bowel tones present. EXTREMITIES: Without cyanosis. ASSESSMENT: 1. Systemic inflammatory response syndrome, status post fever. 2. MRSA sputum colonization, remains on IV vancomycin. 3. Neutropenia. 4. Stage III Burkitt's lymphoma, in chemotherapy. 5. Status post tracheostomy secondary to neck mass. 6. Status post Pseudomonas aeruginosa urinary tract infection==> repeat urine cx neg. PLAN: The patient remains stable, no fevers. Continue present care, Zofran prn , follow oncology recommendations. [facility] staff Problems: RODRÍGUEZ ERAZO NP Jul 12, 2016 17:08
[2016-07-12 19:36] VITALS: BP 106/74; RESP 18
[2016-07-13] MEDS: SOD CHLORIDE 0.9% 1,000 ML IV SCH ×3 (01:00→21:00)
[2016-07-13] MEDS: ALBUTEROL/IPRATROPIUM (NEB) 3 ML AMP HHN SCH ×4 (01:15→19:51)
[2016-07-13 05:51] LABS: ALBUMIN 2.7 g/dl (3.3-4.9)
[2016-07-13 05:52] LABS: POTASSIUM 3.3 mmol/L (3.5-5.1)
[2016-07-13 05:54] LABS: ALBUMIN/GLOBULIN RATIO 1.12; BILIRUBIN,INDIRECT 0.3 mg/dl (0-1.1); BILIRUBIN,TOTAL 0.3 mg/dl (0.2-1.3); CALCIUM 8.5 mg/dl (8.4-10.2); CREATININE 0.32 mg/dl (0.44-1.00); TOTAL PROTEIN 5.1 g/dl (6.1-8.1)
[2016-07-13] MEDS: PANTOPRAZOLE 40 MG INJ IV SCH (06:10)
[2016-07-13] MEDS: LEVOTHYROXINE 100 MCG TAB PO SCH (06:10)
[2016-07-13 06:43] LABS: HEMATOCRIT 19.5 % (37.0-47.0); MEAN CORPUSCULAR HEMOGLOBIN 30.1 pg (29.0-33.0); MEAN CORPUSCULAR HGB CONC 35.7 g/dl (32.0-37.0); MEAN CORPUSCULAR VOLUME 84.5 fl (82.0-101.0); MEAN PLATELET VOLUME 8.1 fl (7.4-10.4); RED BLOOD COUNT 2.31 10^6/ul (4.20-5.40); RED CELL DISTRIBUTION WIDTH 15.5 % (11.5-14.5); UNCORRECTED WBC 0.3 10^3/ul (4.8-10.8); WHITE BLOOD COUNT 0.3 10^3/ul (4.8-10.8)
[2016-07-13 06:46] LABS: PLATELET COUNT 28 10^3/UL (140-440)
[2016-07-13 06:47] LABS: CONDITION 1; LH ANALYZER COMMENTS 1; SUSPECT 1
[2016-07-13 08:31] VITALS: BP 118/56; RESP 21
[2016-07-13] MEDS: OCULAR LUBRICANT 3.5 GM OPH OINT BOTH EYES SCH (09:00)
[2016-07-13] MEDS: COLLAGENASE 30 GM TUBE TOP SCH (09:00)
[2016-07-13 09:29] LABS: LYMPHOCYTES # 0.3 10^3/ul (0.8-2.9)
[2016-07-13 09:30] LABS: PLATELET ESTIMATE PLT APPEAR DECREASED
[2016-07-13] MEDS: ACYCLOVIR 400 MG TAB PO SCH ×2 (09:38→21:45)
[2016-07-13] MEDS: FLUCONAZOLE 100 MG TAB PO SCH (09:38)
[2016-07-13] MEDS: NYSTATIN SUSP 5 ML CUP PO SCH ×4 (09:38→21:45)
[2016-07-13] MEDS: GABAPENTIN 100 MG CAP PO SCH ×3 (09:38→21:44)
[2016-07-13] MEDS: ALLOPURINOL 300 MG TAB PO SCH (09:38)
[2016-07-13] MEDS: LACTOBACILLUS CHEW TAB PO SCH ×2 (09:38→21:44)
[2016-07-13] MEDS: POTASSIUM CHLORIDE (SR) 20 MEQ TAB PO SCH ×2 (09:38→21:45)
[2016-07-13] MEDS: ARTIFICIAL TEARS 15 ML OPH BOTH EYES SCH ×4 (09:39→21:45)
--- NOTE | 2016-07-13 10:38 | PN ---
Date/Time of Note Date/Time of Note DATE: 07/13/16 TIME: 10:36 Assessment/Plan VTE Prophylaxis VTE Prophylaxis Intervention: LMWH Lines/Catheters IV Catheter Type (from Nrsg): PICC Line Central line still needed: Yes (IV chemotherapy ) Urinary Cath still in place: No Assessment/Plan Assessment/Plan Burkitt's lymphoma HX tracheostomy, status post thyroid mass, pancytopenia, abnormal liver function test. better SEPSIS better gallstone ABN LFT better anemia post chemo uti pancytopenia hypokalemia PLAN lovenox for DVT prophylaxis per oncology Plan for chemo awaiting placement Subjective 24 Hr Interval Summary Free Text/Dictation pain controlled, Plan for chemo Exam/Review of Systems Vital Signs Vitals Vital Signs Date Time Temp Pulse Resp B/P Pulse Ox O2 Delivery O2 Flow Rate FiO2 07/13/16 08:31 98.2 101 21 118/56 98 07/13/16 07:57 Aerosol 5.0 28 Intake and Output 07/12/16 07/12/16 07/13/16 15:00 23:00 07:00 Intake Total 250 ml 1772 ml 700 ml Output Total 2100 ml Balance 250 ml 1772 ml -1400 ml Exam Neck: supple Respiratory: clear to auscultation Cardiovascular: regular rate and rhythm Gastrointestinal: soft Musculoskeletal: nl extremities to inspection Results Result Diagram: 07/13/16 0435 07/13/16 0435 Results 24 hrs Laboratory Tests Test 07/13/16 04:35 Alanine Aminotransferase (ALT/SGPT) 39 Albumin 2.7 L Albumin/Globulin Ratio 1.12 Alkaline Phosphatase 106 Anion Gap 12 Aspartate Amino Transf (AST/SGOT) 23 Basophils # Basophils % Blood Morphology Comment Blood Urea Nitrogen 2 L Calcium Level 8.5 Carbon Dioxide Level 25 Chloride Level 107 Clumped Platelets Creatinine 0.32 L Differential Comment MANUAL DIFF Direct Bilirubin 0.00 Eosinophils # Eosinophils % Globulin 2.40 Glucose Level 85 Hematocrit 19.5 L Hemoglobin 7.0 L Indirect Bilirubin 0.3 Lactate Dehydrogenase 357 Lymphocytes # 0.3 L Lymphocytes % 96.0 H Mean Corpuscular Hemoglobin 30.1 Mean Corpuscular Hemoglobin Concent 35.7 Mean Corpuscular Volume 84.5 Mean Platelet Volume 8.1 Monocytes # 0.0 L Monocytes % 1.0 Neutrophils # 0.0 L Neutrophils % 3.0 L Platelet Count 28 #*L Platelet Estimate PLT APPEAR DECREASED Potassium Level 3.3 L Red Blood Count 2.31 L Red Cell Distribution Width 15.5 H Sodium Level 141 Total Bilirubin 0.3 Total Protein 5.1 L White Blood Count 0.3 #L Medications Medications Current Medications Acyclovir (Zovirax) 400 mg BID PO Last administered on 07/13/16 09:38; Admin Dose 400 MG; Start 06/02/16 at 14:30 Diphenhydramine HCl (Benadryl) 25 mg Q4H PRN IV ALLERGIC REACTION Last administered on 06/06/16 20:26; Admin Dose 25 MG; Start 06/02/16 at 18:30 Dexamethasone 10 mg 10 mg Q4H PRN IV ALLERGIC REACTION; Start 06/02/16 at 18: 30 Ondansetron HCl/ Sodium Chloride (Zofran Inj/NS) 54 ml @ 216 mls/hr Q6H PRN IV NAUSEA AND/OR VOMITING Last administered on 07/10/16 19:23; Admin Dose 216 MLS/HR; Start 06/02/16 at 18:30 Ondansetron HCl (Zofran Inj) 4 mg Q6H PRN IV NAUSEA AND/OR VOMITING Last administered on 07/12/16 21:02; Admin Dose 4 MG; Start 06/03/16 at 17:00 Acetaminophen (Tylenol Tab) 650 mg Q6H PRN PO PAIN LEVEL 1-3 OR FEVER Last administered on 07/12/16 16:42; Admin Dose 650 MG; Start 06/03/16 at 17:00 Acetaminophen (Tylenol Supp) 650 mg Q6H PRN [place] PAIN LEVEL 1-3 OR FEVER Last administered on 06/09/16 03:37; Admin Dose 650 MG; Start 06/03/16 at 17:00 Docusate Sodium (Colace) 100 mg Q12H PRN PO CONSTIPATION Last administered on 11:02; Admin Dose 100 MG; Start 06/03/16 at 17:00 Magnesium Hydroxide (Milk Of Mag) 30 ml DAILY PRN PO CONSTIPATION Last administered on 06/20/16 06:13; Admin Dose 30 ML; Start 06/03/16 at 17:00 Bisacodyl (Dulcolax) 5 mg DAILY PRN PO CONSTIPATION Last administered on 11:02; Admin Dose 5 MG; Start 06/03/16 at 17:00 Bisacodyl (Dulcolax Supp) 10 mg DAILY PRN [place] CONSTIPATION Last administered on 06/21/16 05:18; Admin Dose 10 MG; Start 06/03/16 at 17:00 Sodium Biphosphate/ Sodium Phosphate (Fleet Enema) 133 ml DAILY PRN [place] CONSTIPATION; Start 06/03/16 at 17:00 Enoxaparin Sodium (Lovenox) 30 mg DAILY SC Last administered on 06/12/16at 08: 27; Admin Dose 30 MG; Start 06/04/16 at 09:00; Status Future Hold Allopurinol (Zyloprim) 300 mg DAILY PO Last administered on 07/13/16 09:38; Admin Dose 300 MG; Start 06/04/16 at 09:00 Eye Lubricant (Artificial Tears Oph) 2 drop QID BOTH EYES Last administered on 07/13/16 09:39; Admin Dose 2 DROP; Start 06/03/16 at 21:00 Eye Lubricant (Akwa Oint) 1 applic DAILY BOTH EYES Last administered on 11:03; Admin Dose 1 APPLIC; Start 06/04/16 at 09:00 Gabapentin (Neurontin) 200 mg TID PO Last administered on 07/13/16 09:38; Admin Dose 200 MG; Start 06/03/16 at 21:00 Levothyroxine Sodium (Synthroid) 100 mcg DAILY@06 PO Last administered on 06:10; Admin Dose 100 MCG; Start 06/04/16 at 06:00 Pantoprazole (Protonix Iv) 40 mg DAILY@06 IV Last administered on 07/13/16 06: 10; Admin Dose 40 MG; Start 06/09/16 at 06:00 Lorazepam (Ativan) 1 mg Q6H PRN IV AGITATION/ANXIETY Last administered on 23:34; Admin Dose 1 MG; Start 06/08/16 at 18:00 Acetaminophen/ Hydrocodone Bitart ([place] (5/325)) 1 tab Q6H PRN PO PAIN Last administered on 06/11/16 17:38; Admin Dose 1 TAB; Start 06/11/16 at 17:30 Collagenase (Santyl) 1 applic DAILY TOP Last administered on 07/12/16 11:04; Admin Dose 1 APPLIC; Start 06/12/16 at 09:00 Nystatin (Nystatin Susp) 5 ml QID PO Last administered on 07/13/16 09:38; Admin Dose 5 ML; Start 06/18/16 at 17:00 Scopolamine (Transderm-Scop) 1 patch Q72H TRANSDERM Last administered on 21:58; Admin Dose 1 PATCH; Start 06/22/16 at 21:00 Fluconazole 100 mg 100 mg DAILY PO Last administered on 07/13/16 09:38; Admin Dose 100 MG; Start 06/28/16 at 09:00 Sodium Chloride (NS) 1,000 ml @ 100 mls/hr Q10H IV Last administered on 16:42; Admin Dose 100 MLS/HR; Start 07/01/16 at 19:00 Lactobacillus Acidoph/Bulgaricus (Floranex) 1 tab BID PO Last administered on 09:38; Admin Dose 1 TAB; Start 07/01/16 at 21:00 Potassium Chloride (Klor-Con 20) 20 meq BID PO Last administered on 07/13/16 09:38; Admin Dose 20 MEQ; Start 07/03/16 at 21:00 Ibuprofen 600 mg 600 mg TID PRN PO FEVER Last administered on 07/04/16 01:29; Admin Dose 600 MG; Start 07/03/16 at 19:30 Vancomycin HCl (Vancocin) 250 ml @ 125 mls/hr Q12H IVPB Last administered on 22:39; Admin Dose 125 MLS/HR; Start 07/12/16 at 23:00 TELLY SOLANO MD Jul 13, 2016 10:38
[2016-07-13] MEDS: VANCOMYCIN 1 GM in NS 250 ML IVPB SCH (11:35)
[2016-07-13] MEDS ORDERED: POTASSIUM CHLORIDE 20 MEQ in SOD CHLORIDE 0.9% 100 ML IVPB ONE (12:30)
--- NOTE | 2016-07-13 16:03 | RADRPT ---
PROCEDURE: XR Chest. CLINICAL INDICATION: Pneumonia TECHNIQUE: Eighth chest AP portable. COMPARISON: 07/04/2016 FINDINGS: Tracheostomy tube. The mediastinal structures are unremarkable. The heart is normal in size and configuration. The pu lmonary vascularity is normal. No change in right basilar subsegmental atelectasis. No consolidati on is identified. The pleural spaces are unremarkable. The axial skeleton is unremarkable. IMPRESSION: No change in right basilar subsegmental atelectasis RPTAT: [facility] .Reji Chan MD, MD Date Time Electronically viewed and signed by .Reji Chan MD, MD on 07/13/2016 16:02 .B/
[2016-07-13] MEDS: LORAZEPAM 2 MG INJ IV PRN (16:14)
[2016-07-13] MEDS: ONDANSETRON INJ 8 MG in SOD CHLORIDE 0.9% 50 ML IV PRN (16:15)
[2016-07-13] MEDS ORDERED: ACETAMINOPHEN 325 MG TAB PO ONE (16:30)
--- NOTE | 2016-07-13 18:28 | PN ---
DATE: SUBJECTIVE: The patient is alert, complaining of cough. She is in no distress, febrile. On and of f nausea, no fevers. INDWELLINGS: Trach, PICC. ANTIMICROBIALS: 1. Vancomycin. 2. Diflucan. 3. Acyclovir. 4. Status post gentamicin. MICROBIOLOGY: Urine culture repeated on July 10 came back negative. PHYSICAL EXAMINATION: GENERAL: Fragile, middle-aged woman who is alert, in no distress. HEENT: Head atraumatic, normocephalic. Sclerae anicteric. Buccal mucosa pink. NECK: Supple. Tracheostomy present. CHEST: Rise symmetrical. Breath sounds clear. HEART: S1, S2. ABDOMEN: Soft, bowel tones present. EXTREMITIES: Without cyanosis. Trace ankle edema. ASSESSMENT: 1. Grade IIIA Burkitt lymphoma, going through chemotherapy cycles. 2. Cough, rule out pneumonia. 3. Status post neutropenic fevers. 4. Methicillin resistant Staphylococcus aureus positive sputum. 5. Status post Pseudomonas aeruginosa urinary tract infection. 6. Status post tracheostomy secondary to neck mass with respiratory compromise. PLAN: The patient remains stable. We are going to order chest x-ray. Continue her on current anti microbials. Follow oncology recommendations. Panculture p.r.n. Dictated By: RODRÍGUEZ ERAZO ARMATURE WINDER HELPER REPAIR for JILLIAN BELLO MD NI/NTS Conf#: [id number] DID#: [id number] CC: TELLY SOLANO MD;*EndCC*
[2016-07-13 20:25] VITALS: BP 108/60; RESP 20
--- NOTE | 2016-07-13 20:26 | PN ---
DATE: 07/13/2016 HISTORY OF PRESENT ILLNESS: This 56-year-old lady with Birkett lymphoma status post salvage chemoth erapy has severe pancytopenia. The patient had 5 doses of Neupogen last week. She is also on multi ple antibiotics. She complains of severe nausea and also coughing spells. PHYSICAL EXAMINATION: GENERAL: Shows a moderately built female in mild respiratory distress. VITAL SIGNS: Show that she is afebrile. EARS, NOSE, THROAT, HEART, AND LUNGS: Normal except for decreased breath sounds in both bases and a few rhonchi. ABDOMEN: Soft. No masses. GENITOURINARY: External genitalia normal. EXTREMITIES: No edema. LYMPH NODES: No palpable lymphadenopathy. NECK: She has a tracheostomy tube. LABORATORY DATA: Her CBC today shows that her WBC is only 300, hemoglobin 7, platelet count 28,000 after transfusion yesterday. BMP unremarkable. ASSESSMENT AND PLAN: 1. High grade lymphoma, status post salvage chemotherapy. The patient has nausea still from the ch emotherapy. We will continue her antiemetic medications. 2. Shortness of breath. The reason is not clear, as part of it may be anxiety. A chest x-ray has been ordered and we will try to get the result. 3. Severe pancytopenia. Even after 5 doses of Neupogen, her white count is still only 300. If it does not start to come back soon, we may have to repeat the Neupogen. Her hemoglobin is only 7 and we will give her 2 units of packed cells. I will monitor her CBC closely. Thank you very much. Dictated By: DANIELA MAYEN MD PC/NTS Conf#: [id number] DID#: [id number] CC: TELLY SOLANO MD;*End*
[2016-07-13] MEDS: SCOPOLAMINE 1.5 MG PATCH TRANSDERM SCH (21:45)
[2016-07-13] MEDS: VANCOMYCIN 1.25 GM in SOD CHLORIDE 0.9% 250 ML IVPB SCH (22:34)
[2016-07-14] MEDS: ALBUTEROL/IPRATROPIUM (NEB) 3 ML AMP HHN SCH ×6 (02:47→20:45)
[2016-07-14] MEDS: LEVOTHYROXINE 100 MCG TAB PO SCH (06:06)
[2016-07-14] MEDS: SOD CHLORIDE 0.9% 1,000 ML IV SCH ×2 (06:06→17:00)
[2016-07-14] MEDS: PANTOPRAZOLE 40 MG INJ IV SCH (06:06)
[2016-07-14 08:38] VITALS: BP 131/63; RESP 16
[2016-07-14] MEDS: COLLAGENASE 30 GM TUBE TOP SCH (09:00)
[2016-07-14] MEDS: OCULAR LUBRICANT 3.5 GM OPH OINT BOTH EYES SCH (09:00)
[2016-07-14] MEDS: ALLOPURINOL 300 MG TAB PO SCH (09:06)
[2016-07-14] MEDS: GABAPENTIN 100 MG CAP PO SCH ×3 (09:06→21:00)
[2016-07-14] MEDS: POTASSIUM CHLORIDE (SR) 20 MEQ TAB PO SCH ×2 (09:06→21:00)
[2016-07-14] MEDS: FLUCONAZOLE 100 MG TAB PO SCH (09:06)
[2016-07-14] MEDS: LACTOBACILLUS CHEW TAB PO SCH ×2 (09:06→21:00)
[2016-07-14] MEDS: ACYCLOVIR 400 MG TAB PO SCH ×2 (09:06→21:00)
[2016-07-14] MEDS: NYSTATIN SUSP 5 ML CUP PO SCH ×4 (09:07→21:00)
[2016-07-14] MEDS: ARTIFICIAL TEARS 15 ML OPH BOTH EYES SCH ×4 (09:07→21:00)
[2016-07-14 09:39] LABS: HEMATOCRIT 25.9 % (37.0-47.0); MEAN CORPUSCULAR HEMOGLOBIN 29.8 pg (29.0-33.0); MEAN CORPUSCULAR HGB CONC 34.6 g/dl (32.0-37.0); MEAN CORPUSCULAR VOLUME 86.2 fl (82.0-101.0); RED BLOOD COUNT 3.01 10^6/ul (4.20-5.40); RED CELL DISTRIBUTION WIDTH 14.6 % (11.5-14.5); UNCORRECTED WBC 0.1 10^3/ul (4.8-10.8); WHITE BLOOD COUNT 0.1 10^3/ul (4.8-10.8)
[2016-07-14 09:47] LABS: ALBUMIN 2.6 g/dl (3.3-4.9); CHLORIDE 109 mmol/L (97-110)
[2016-07-14 09:48] LABS: POTASSIUM 3.6 mmol/L (3.5-5.1); SODIUM 141 mmol/L (135-144)
[2016-07-14 09:50] LABS: ALBUMIN/GLOBULIN RATIO 1.13; ANION GAP 11 (8-16); ASPARTATE AMINO TRANSFERASE 36 IU/L (15-46); BILIRUBIN,INDIRECT 0.6 mg/dl (0-1.1); BILIRUBIN,TOTAL 0.6 mg/dl (0.2-1.3); CARBON DIOXIDE 25 mmol/L (21-31); CREATININE 0.29 mg/dl (0.44-1.00); TOTAL PROTEIN 4.9 g/dl (6.1-8.1)
[2016-07-14 09:51] LABS: ALANINE AMINOTRANSFERASE 48 IU/L (13-69); ALKALINE PHOSPHATASE 110 IU/L (42-121); CALCIUM 8.2 mg/dl (8.4-10.2); GLUCOSE 96 mg/dl (70-220); LACTATE DEHYDROGENASE 494 IU/L (313-618)
[2016-07-14 09:54] LABS: BLOOD UREA NITROGEN < 2 mg/dl (7-20)
[2016-07-14 10:13] LABS: CONDITION 1; LH ANALYZER COMMENTS 1; MEAN PLATELET VOLUME 8.6 fl (7.4-10.4); SUSPECT 1
[2016-07-14 10:15] LABS: PLATELET COUNT 16 10^3/UL (140-440)
[2016-07-14] MEDS: ONDANSETRON INJ 8 MG in SOD CHLORIDE 0.9% 50 ML IV PRN ×2 (10:18→19:45)
[2016-07-14] MEDS: VANCOMYCIN 1.25 GM in SOD CHLORIDE 0.9% 250 ML IVPB SCH ×2 (11:38→23:22)
[2016-07-14] MEDS: ONDANSETRON 4 MG INJ IV PRN (13:23)
--- NOTE | 2016-07-14 14:07 | CONS ---
Date/Time of Note Date/Time of Note DATE: 07/14/16 TIME: 14:04 Assessment/Plan Assessment/Plan Chief Complaint/Hosp Course 56 yo female with massive neck mass causing tracheal compression and airway compromise s/p tracheostomy placement. 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 Pt was given cycle 1A and 1B of R HyperCVAD but had only a partial response to therapy and severe side effects. We have thus changed her chemotherapy regimen. She is now s/p cycle 1A of R-CODOX-M and has now completed her chemotherapy. Most recent CT neck showed resolution of the mass. Pt's counts are now improving and she is no longer transfusion dependant. She has since started Cycle 1B and is receiving R-IVAC Problems: Additional Assessment/Plan # Burkitt's lymphoma - currently day 10 cycle 1B R -IVAC. chemotherapy regimen is as follows Part 2: R-IVAC Rituximab (Rituxan) 375 mg/m2 IV once on day 1 Ifosfamide (Ifex) 1500 mg/m2 IV over 2 hours once per day on days 1 to 5 Etoposide (Vepesid) 60 mg/m2 IV over 1 hour once per day on days 1 to 5 Cytarabine (Cytosar) 2 g/m2 IV over 3 hours Q12H on days 1 & 2 (4 doses total) [place] (Mesnex) 300 mg/m2 (mixed with Ifosfamide (Ifex)) , then 300mg/m2 IV every four hours x 2, on days 1 to 5 # Neutropenic fevers -appreciate ID recs. continue meropenem and vancomycin -f/u blood and urine cultures # Supportive Care and prophylactic meds -Started Acyclovir 400mg BID -fluconazole 100mg q day -Neupogen 300mcg q day day after chemotherapy is completed -Zofran ordered prn nausea #Expected Pancytopenia -keep Hg> 8 and platelets > 10. 2 units of PRBCs given yesterday. will check f/ u CBC # Elevated AST and ALT, likely related to methotrexate. 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 all steroids should be discontinued for now unless they are part of the chemotherapy regimen -continue to work with physical therapy. 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 -uric acid level ok Consultation Date/Type/Reason Admit Date/Time Jun 02, 2016 at 15:10 Initial Consult Date 06/02/16 Type of Consultation: Hematology Reason for Consultation burkitt's lymphoma Referring Provider: TELLY SOLANO MD 24 HR Interval Summary Free Text/Dictation patient's shortness of breath has improved. CXR done yesterday did not show an acute process Exam/Review of Systems Vital Signs Vitals Vital Signs Date Time Temp Pulse Resp B/P Pulse Ox O2 Delivery O2 Flow Rate FiO2 07/14/16 09:08 97 20 97 Aerosol 5.0 28 T Tube 07/14/16 08:38 98.7 131/63 Intake and Output 07/13/16 07/13/16 07/14/16 15:00 23:00 07:00 Intake Total 1514 ml 1350 ml Balance 1514 ml 1350 ml Exam Constitutional: alert, oriented Psych: no complaints Head: atraumatic, normocephalic Eyes: nl conjunctiva ENMT: nl external ears & nose, other (trach in place) Neck: non-tender, supple Respiratory: clear to auscultation Cardiovascular: nl pulses, regular rate and rhythm Gastrointestinal: soft Musculoskeletal: nl extremities to inspection, nl gait and stance Extremities: normal pulses Results Result Diagram: 07/14/1690407/14/16904 Results 24 hrs Laboratory Tests Test 07/14/16 09:05 Alanine Aminotransferase (ALT/SGPT) 48 Albumin 2.6 L Albumin/Globulin Ratio 1.13 Alkaline Phosphatase 110 Anion Gap 11 Aspartate Amino Transf (AST/SGOT) 36 Basophils # Basophils % Blood Morphology Comment Blood Urea Nitrogen < 2 L Calcium Level 8.2 L Carbon Dioxide Level 25 Chloride Level 109 Creatinine 0.29 L Direct Bilirubin 0.00 Eosinophils # Eosinophils % Globulin 2.30 Glucose Level 96 Hematocrit 25.9 #L Hemoglobin 9.0 #L Indirect Bilirubin 0.6 Lactate Dehydrogenase 494 Lymphocytes # Lymphocytes % Mean Corpuscular Hemoglobin 29.8 Mean Corpuscular Hemoglobin Concent 34.6 Mean Corpuscular Volume 86.2 Mean Platelet Volume 8.6 Monocytes # Neutrophils # Neutrophils % Platelet Count 16 #*L Potassium Level 3.6 Red Blood Count 3.01 #L Red Cell Distribution Width 14.6 H Sodium Level 141 Total Bilirubin 0.6 Total Protein 4.9 L White Blood Count 0.1 #L Medications Medications Current Medications Acyclovir (Zovirax) 400 mg BID PO Last administered on 1/23/17at 09:06; Admin Dose 400 MG; Start 06/02/16 at 14:30 Diphenhydramine HCl (Benadryl) 25 mg Q4H PRN IV ALLERGIC REACTION Last administered on 06/06/16 20:26; Admin Dose 25 MG; Start 06/02/16 at 18:30 Dexamethasone 10 mg 10 mg Q4H PRN IV ALLERGIC REACTION; Start 06/02/16 at 18: 30 Ondansetron HCl/ Sodium Chloride (Zofran Inj/NS) 54 ml @ 216 mls/hr Q6H PRN IV NAUSEA AND/OR VOMITING Last administered on 07/14/16 10:18; Admin Dose 216 MLS/HR; Start 06/02/16 at 18:30 Ondansetron HCl (Zofran Inj) 4 mg Q6H PRN IV NAUSEA AND/OR VOMITING Last administered on 07/14/16 13:23; Admin Dose 4 MG; Start 06/03/16 at 17:00 Acetaminophen (Tylenol Tab) 650 mg Q6H PRN PO PAIN LEVEL 1-3 OR FEVER Last administered on 07/12/16 16:42; Admin Dose 650 MG; Start 06/03/16 at 17:00 Acetaminophen (Tylenol Supp) 650 mg Q6H PRN [place] PAIN LEVEL 1-3 OR FEVER Last administered on 06/09/16 03:37; Admin Dose 650 MG; Start 06/03/16 at 17:00 Docusate Sodium (Colace) 100 mg Q12H PRN PO CONSTIPATION Last administered on 11:02; Admin Dose 100 MG; Start 06/03/16 at 17:00 Magnesium Hydroxide (Milk Of Mag) 30 ml DAILY PRN PO CONSTIPATION Last administered on 06/20/16 06:13; Admin Dose 30 ML; Start 06/03/16 at 17:00 Bisacodyl (Dulcolax) 5 mg DAILY PRN PO CONSTIPATION Last administered on 11:02; Admin Dose 5 MG; Start 06/03/16 at 17:00 Bisacodyl (Dulcolax Supp) 10 mg DAILY PRN [place] CONSTIPATION Last administered on 06/21/16 05:18; Admin Dose 10 MG; Start 06/03/16 at 17:00 Sodium Biphosphate/ Sodium Phosphate (Fleet Enema) 133 ml DAILY PRN [place] CONSTIPATION; Start 06/03/16 at 17:00 Enoxaparin Sodium (Lovenox) 30 mg DAILY SC Last administered on 06/12/16at 08: 27; Admin Dose 30 MG; Start 06/04/16 at 09:00; Status Future Hold Allopurinol (Zyloprim) 300 mg DAILY PO Last administered on 07/14/16 09:06; Admin Dose 300 MG; Start 06/04/16 at 09:00 Eye Lubricant (Artificial Tears Oph) 2 drop QID BOTH EYES Last administered on 07/14/16 13:14; Admin Dose 2 DROP; Start 06/03/16 at 21:00 Eye Lubricant (Akwa Oint) 1 applic DAILY BOTH EYES Last administered on 11:03; Admin Dose 1 APPLIC; Start 06/04/16 at 09:00 Gabapentin (Neurontin) 200 mg TID PO Last administered on 07/14/16 13:14; Admin Dose 200 MG; Start 06/03/16 at 21:00 Levothyroxine Sodium (Synthroid) 100 mcg DAILY@06 PO Last administered on 06:06; Admin Dose 100 MCG; Start 06/04/16 at 06:00 Pantoprazole (Protonix Iv) 40 mg DAILY@06 IV Last administered on 07/14/16 06: 06; Admin Dose 40 MG; Start 06/09/16 at 06:00 Lorazepam (Ativan) 1 mg Q6H PRN IV AGITATION/ANXIETY Last administered on 16:14; Admin Dose 1 MG; Start 06/08/16 at 18:00 Acetaminophen/ Hydrocodone Bitart ([place] (5/325)) 1 tab Q6H PRN PO PAIN Last administered on 06/11/16at 17:38; Admin Dose 1 TAB; Start 06/11/16 at 17:30 Collagenase (Santyl) 1 applic DAILY TOP Last administered on 07/12/16 11:04; Admin Dose 1 APPLIC; Start 06/12/16 at 09:00 Nystatin (Nystatin Susp) 5 ml QID PO Last administered on 07/14/16 13:14; Admin Dose 5 ML; Start 06/18/16 at 17:00 Scopolamine (Transderm-Scop) 1 patch Q72H TRANSDERM Last administered on 21:45; Admin Dose 1 PATCH; Start 06/22/16 at 21:00 Fluconazole 100 mg 100 mg DAILY PO Last administered on 07/14/16 09:06; Admin Dose 100 MG; Start 06/28/16 at 09:00 Sodium Chloride (NS) 1,000 ml @ 100 mls/hr Q10H IV Last administered on 06:06; Admin Dose 100 MLS/HR; Start 07/01/16 at 19:00 Lactobacillus Acidoph/Bulgaricus (Floranex) 1 tab BID PO Last administered on 09:06; Admin Dose 1 TAB; Start 07/01/16 at 21:00 Potassium Chloride (Klor-Con 20) 20 meq BID PO Last administered on 07/14/16 09:06; Admin Dose 20 MEQ; Start 07/03/16 at 21:00 Ibuprofen 600 mg 600 mg TID PRN PO FEVER Last administered on 07/04/16 01:29; Admin Dose 600 MG; Start 07/03/16 at 19:30 Vancomycin HCl 1.25 gm/Sodium Chloride 250 ml @ 83.333 mls/ hr Q12H IVPB Last administered on 07/14/16 11:38; Admin Dose 83.333 MLS/HR; Start 07/13/16 at 23: 00 Filgrastim/ Dextrose (Neupogen/D5W) 51.6 ml @ 103.2 mls/ hr DAILY@17 IVPB ; Start 07/14/16 at 17:00 CHANDRIKA MERLOS M.D. Jul 14, 2016 14:07
[2016-07-14 14:21] LABS: LYMPHOCYTES # 0.1 10^3/ul (0.8-2.9)
--- NOTE | 2016-07-14 16:17 | PN ---
Date/Time of Note Date/Time of Note DATE: 07/14/16 TIME: 16:16 Assessment/Plan VTE Prophylaxis VTE Prophylaxis Intervention: other Lines/Catheters IV Catheter Type (from Nrsg): PICC Line Central line still needed: Yes Urinary Cath still in place: No Reason Cath still needed: other (indicate) Assessment/Plan Chief Complaint/Hosp Course IMPRESSION: The patient has Burkitt's lymphoma HX tracheostomy, status post thyroid mass, pancytopenia, abnormal liver function test. better SEPSIS better gallstone ABN LFT better anemia post chemo uti pancytopenia PLAN per oncology LABS chemo per id Problems: Subjective 24 Hr Interval Summary Cardiovascular: no complaints Gastrointestinal: no complaints Genitourinary: no complaints Exam/Review of Systems Vital Signs Vitals Vital Signs Date Time Temp Pulse Resp B/P Pulse Ox O2 Delivery O2 Flow Rate FiO2 07/14/16 14:57 88 18 98 Aerosol Mask 5.0 28 T Tube 07/14/16 08:38 98.7 131/63 Intake and Output 07/13/16 07/13/16 07/14/16 15:00 23:00 07:00 Intake Total 1514 ml 1350 ml Balance 1514 ml 1350 ml Exam Neck: supple Respiratory: clear to auscultation Cardiovascular: regular rate and rhythm Gastrointestinal: soft Musculoskeletal: nl extremities to inspection Extremities: normal pulses Results Result Diagram: 07/14/1690407/14/16904 Results 24 hrs Laboratory Tests Test 07/14/16 09:05 Alanine Aminotransferase (ALT/SGPT) 48 Albumin 2.6 L Albumin/Globulin Ratio 1.13 Alkaline Phosphatase 110 Anion Gap 11 Aspartate Amino Transf (AST/SGOT) 36 Basophils # 0.0 Basophils % 2.0 Blood Morphology Comment Blood Urea Nitrogen < 2 L Calcium Level 8.2 L Carbon Dioxide Level 25 Chloride Level 109 Creatinine 0.29 L Direct Bilirubin 0.00 Eosinophils # 0.0 Eosinophils % 1.0 Globulin 2.30 Glucose Level 96 Hematocrit 25.9 #L Hemoglobin 9.0 #L Indirect Bilirubin 0.6 Lactate Dehydrogenase 494 Lymphocytes # 0.1 L Lymphocytes % 82.0 H Mean Corpuscular Hemoglobin 29.8 Mean Corpuscular Hemoglobin Concent 34.6 Mean Corpuscular Volume 86.2 Mean Platelet Volume 8.6 Monocytes # 0.0 L Monocytes % 5.0 Neutrophils # 0.0 L Neutrophils % 9.0 L Platelet Count 16 #*L Potassium Level 3.6 Promyelocytes # 0.0 Promyelocytes % 1.0 H Red Blood Count 3.01 #L Red Cell Distribution Width 14.6 H Sodium Level 141 Total Bilirubin 0.6 Total Protein 4.9 L White Blood Count 0.1 #L Medications Medications Current Medications Acyclovir (Zovirax) 400 mg BID PO Last administered on 07/14/16 09:06; Admin Dose 400 MG; Start 06/02/16 at 14:30 Diphenhydramine HCl (Benadryl) 25 mg Q4H PRN IV ALLERGIC REACTION Last administered on 06/06/16 20:26; Admin Dose 25 MG; Start 06/02/16 at 18:30 Dexamethasone 10 mg 10 mg Q4H PRN IV ALLERGIC REACTION; Start 06/02/16 at 18: 30 Ondansetron HCl/ Sodium Chloride (Zofran Inj/NS) 54 ml @ 216 mls/hr Q6H PRN IV NAUSEA AND/OR VOMITING Last administered on 07/14/16 10:18; Admin Dose 216 MLS/HR; Start 06/02/16 at 18:30 Ondansetron HCl (Zofran Inj) 4 mg Q6H PRN IV NAUSEA AND/OR VOMITING Last administered on 07/14/16 13:23; Admin Dose 4 MG; Start 06/03/16 at 17:00 Acetaminophen (Tylenol Tab) 650 mg Q6H PRN PO PAIN LEVEL 1-3 OR FEVER Last administered on 07/12/16 16:42; Admin Dose 650 MG; Start 06/03/16 at 17:00 Acetaminophen (Tylenol Supp) [address] PAIN LEVEL 1-3 OR FEVER Last administered on 06/09/16 03:37; Admin Dose 650 MG; Start 06/03/16 at 17:00 Docusate Sodium (Colace) 100 mg Q12H PRN PO CONSTIPATION Last administered on 11:02; Admin Dose 100 MG; Start 06/03/16 at 17:00 Magnesium Hydroxide (Milk Of Mag) 30 ml DAILY PRN PO CONSTIPATION Last administered on 06/20/16 06:13; Admin Dose 30 ML; Start 06/03/16 at 17:00 Bisacodyl (Dulcolax) 5 mg DAILY PRN PO CONSTIPATION Last administered on 11:02; Admin Dose 5 MG; Start 06/03/16 at 17:00 Bisacodyl (Dulcolax Supp) [address] CONSTIPATION Last administered on 06/21/16at 05:18; Admin Dose 10 MG; Start 06/03/16 at 17:00 Sodium Biphosphate/ Sodium Phosphate (Fleet Enema) [address] CONSTIPATION; Start 06/03/16 at 17:00 Enoxaparin Sodium (Lovenox) 30 mg DAILY SC Last administered on 06/12/16at 08: 27; Admin Dose 30 MG; Start 06/04/16 at 09:00; Status Future Hold Allopurinol (Zyloprim) 300 mg DAILY PO Last administered on 07/14/16 09:06; Admin Dose 300 MG; Start 06/04/16 at 09:00 Eye Lubricant (Artificial Tears Oph) 2 drop QID BOTH EYES Last administered on 07/14/16 13:14; Admin Dose 2 DROP; Start 06/03/16 at 21:00 Eye Lubricant (Akwa Oint) 1 applic DAILY BOTH EYES Last administered on 11:03; Admin Dose 1 APPLIC; Start 06/04/16 at 09:00 Gabapentin (Neurontin) 200 mg TID PO Last administered on 07/14/16 13:14; Admin Dose 200 MG; Start 06/03/16 at 21:00 Levothyroxine Sodium (Synthroid) 100 mcg DAILY@06 PO Last administered on 06:06; Admin Dose 100 MCG; Start 06/04/16 at 06:00 Pantoprazole (Protonix Iv) 40 mg DAILY@06 IV Last administered on 07/14/16 06: 06; Admin Dose 40 MG; Start 06/09/16 at 06:00 Lorazepam (Ativan) 1 mg Q6H PRN IV AGITATION/ANXIETY Last administered on 16:14; Admin Dose 1 MG; Start 06/08/16 at 18:00 Acetaminophen/ Hydrocodone Bitart ([place] (5/325)) 1 tab Q6H PRN PO PAIN Last administered on 06/11/16at 17:38; Admin Dose 1 TAB; Start 06/11/16 at 17:30 Collagenase (Santyl) 1 applic DAILY TOP Last administered on 07/12/16 11:04; Admin Dose 1 APPLIC; Start 06/12/16 at 09:00 Nystatin (Nystatin Susp) 5 ml QID PO Last administered on 07/14/16 13:14; Admin Dose 5 ML; Start 06/18/16 at 17:00 Scopolamine (Transderm-Scop) 1 patch Q72H TRANSDERM Last administered on 21:45; Admin Dose 1 PATCH; Start 06/22/16 at 21:00 Fluconazole 100 mg 100 mg DAILY PO Last administered on 07/14/16 09:06; Admin Dose 100 MG; Start 06/28/16 at 09:00 Sodium Chloride (NS) 1,000 ml @ 100 mls/hr Q10H IV Last administered on 06:06; Admin Dose 100 MLS/HR; Start 07/01/16 at 19:00 Lactobacillus Acidoph/Bulgaricus (Floranex) 1 tab BID PO Last administered on 09:06; Admin Dose 1 TAB; Start 07/01/16 at 21:00 Potassium Chloride (Klor-Con 20) 20 meq BID PO Last administered on 07/14/16 09:06; Admin Dose 20 MEQ; Start 07/03/16 at 21:00 Ibuprofen 600 mg 600 mg TID PRN PO FEVER Last administered on 07/04/16 01:29; Admin Dose 600 MG; Start 07/03/16 at 19:30 Vancomycin HCl 1.25 gm/Sodium Chloride 250 ml @ 83.333 mls/ hr Q12H IVPB Last administered on 07/14/16 11:38; Admin Dose 83.333 MLS/HR; Start 07/13/16 at 23: 00 Filgrastim/ Dextrose (Neupogen/D5W) 51.6 ml @ 103.2 mls/ hr DAILY@17 IVPB ; Start 07/14/16 at 17:00 GUERLINE SULLIVAN MD Jul 14, 2016 16:17
--- NOTE | 2016-07-14 16:24 | CONS ---
Date/Time of Note Date/Time of Note DATE: 07/14/16 TIME: 16:22 Assessment/Plan Assessment/Plan Chief Complaint/Hosp Course Alert, feels much better, cough resolved, no fevers, still with on/off nausea, nad INDWELLINGS: Trach, PICC. ANTIMICROBIALS: 1. Vancomycin. 2. Diflucan. 3. Acyclovir. 4. Status post gentamicin. MICROBIOLOGY: Urine culture repeated on July 10 came back negative. PHYSICAL EXAMINATION: GENERAL: Fragile, middle-aged woman who is alert, in no distress. HEENT: Head atraumatic, normocephalic. Sclerae anicteric. Buccal mucosa pink. NECK: Supple. Tracheostomy present. CHEST: Rise symmetrical. Breath sounds clear. HEART: S1, S2. ABDOMEN: Soft, bowel tones present. EXTREMITIES: Without cyanosis. Trace ankle edema. ASSESSMENT: 1. Grade IIIA Burkitt lymphoma, going through chemotherapy cycles. 2. Cough==>resolved, no evidence for PNA per cxr. 3. Status post neutropenic fevers. 4. Methicillin resistant Staphylococcus aureus positive sputum. 5. Status post Pseudomonas aeruginosa urinary tract infection. 6. Status post tracheostomy secondary to neck mass with respiratory compromise. PLAN: The patient remains stable, feels better than yesterday. Continue current antimicrobials. Follow oncology recommendations. Panculture p.r.n. DW staff/pt Problems: Consultation Date/Type/Reason Admit Date/Time Jun 02, 2016 at 15:10 Initial Consult Date 06/02/16 Type of Consultation: ID Referring Provider: TELLY SOLANO MD Exam/Review of Systems Vital Signs Vitals Vital Signs Date Time Temp Pulse Resp B/P Pulse Ox O2 Delivery O2 Flow Rate FiO2 07/14/16 14:57 88 18 98 Aerosol Mask 5.0 28 T Tube 07/14/16 08:38 98.7 131/63 Intake and Output 07/13/16 07/13/16 07/14/16 15:00 23:00 07:00 Intake Total 1514 ml 1350 ml Balance 1514 ml 1350 ml Results Result Diagram: 07/14/16 0907/14/16 09 Results 24 hrs Laboratory Tests Test 07/14/16 09:05 Alanine Aminotransferase (ALT/SGPT) 48 Albumin 2.6 L Albumin/Globulin Ratio 1.13 Alkaline Phosphatase 110 Anion Gap 11 Aspartate Amino Transf (AST/SGOT) 36 Basophils # 0.0 Basophils % 2.0 Blood Morphology Comment Blood Urea Nitrogen < 2 L Calcium Level 8.2 L Carbon Dioxide Level 25 Chloride Level 109 Creatinine 0.29 L Direct Bilirubin 0.00 Eosinophils # 0.0 Eosinophils % 1.0 Globulin 2.30 Glucose Level 96 Hematocrit 25.9 #L Hemoglobin 9.0 #L Indirect Bilirubin 0.6 Lactate Dehydrogenase 494 Lymphocytes # 0.1 L Lymphocytes % 82.0 H Mean Corpuscular Hemoglobin 29.8 Mean Corpuscular Hemoglobin Concent 34.6 Mean Corpuscular Volume 86.2 Mean Platelet Volume 8.6 Monocytes # 0.0 L Monocytes % 5.0 Neutrophils # 0.0 L Neutrophils % 9.0 L Platelet Count 16 #*L Potassium Level 3.6 Promyelocytes # 0.0 Promyelocytes % 1.0 H Red Blood Count 3.01 #L Red Cell Distribution Width 14.6 H Sodium Level 141 Total Bilirubin 0.6 Total Protein 4.9 L White Blood Count 0.1 #L Medications Medications Current Medications Acyclovir (Zovirax) 400 mg BID PO Last administered on 07/14/16 09:06; Admin Dose 400 MG; Start 06/02/16 at 14:30 Diphenhydramine HCl (Benadryl) 25 mg Q4H PRN IV ALLERGIC REACTION Last administered on 06/06/16at 20:26; Admin Dose 25 MG; Start 06/02/16 at 18:30 Dexamethasone 10 mg 10 mg Q4H PRN IV ALLERGIC REACTION; Start 06/02/16 at 18: 30 Ondansetron HCl/ Sodium Chloride (Zofran Inj/NS) 54 ml @ 216 mls/hr Q6H PRN IV NAUSEA AND/OR VOMITING Last administered on 07/14/16 10:18; Admin Dose 216 MLS/HR; Start 06/02/16 at 18:30 Ondansetron HCl (Zofran Inj) 4 mg Q6H PRN IV NAUSEA AND/OR VOMITING Last administered on 07/14/16 13:23; Admin Dose 4 MG; Start 06/03/16 at 17:00 Acetaminophen (Tylenol Tab) 650 mg Q6H PRN PO PAIN LEVEL 1-3 OR FEVER Last administered on 07/12/16 16:42; Admin Dose 650 MG; Start 06/03/16 at 17:00 Acetaminophen (Tylenol Supp) 650 mg Q6H PRN [place] PAIN LEVEL 1-3 OR FEVER Last administered on 06/09/16 03:37; Admin Dose 650 MG; Start 06/03/16 at 17:00 Docusate Sodium (Colace) 100 mg Q12H PRN PO CONSTIPATION Last administered on 11:02; Admin Dose 100 MG; Start 06/03/16 at 17:00 Magnesium Hydroxide (Milk Of Mag) 30 ml DAILY PRN PO CONSTIPATION Last administered on 06/20/16 06:13; Admin Dose 30 ML; Start 06/03/16 at 17:00 Bisacodyl (Dulcolax) 5 mg DAILY PRN PO CONSTIPATION Last administered on 11:02; Admin Dose 5 MG; Start 06/03/16 at 17:00 Bisacodyl (Dulcolax Supp) 10 mg DAILY PRN [place] CONSTIPATION Last administered on 06/21/16 05:18; Admin Dose 10 MG; Start 06/03/16 at 17:00 Sodium Biphosphate/ Sodium Phosphate (Fleet Enema) 133 ml DAILY PRN [place] CONSTIPATION; Start 06/03/16 at 17:00 Enoxaparin Sodium (Lovenox) 30 mg DAILY SC Last administered on 06/12/16 08: 27; Admin Dose 30 MG; Start 06/04/16 at 09:00; Status Future Hold Allopurinol (Zyloprim) 300 mg DAILY PO Last administered on 07/14/16 09:06; Admin Dose 300 MG; Start 06/04/16 at 09:00 Eye Lubricant (Artificial Tears Oph) 2 drop QID BOTH EYES Last administered on 07/14/16 13:14; Admin Dose 2 DROP; Start 06/03/16 at 21:00 Eye Lubricant (Akwa Oint) 1 applic DAILY BOTH EYES Last administered on 11:03; Admin Dose 1 APPLIC; Start 06/04/16 at 09:00 Gabapentin (Neurontin) 200 mg TID PO Last administered on 07/14/16 13:14; Admin Dose 200 MG; Start 06/03/16 at 21:00 Levothyroxine Sodium (Synthroid) 100 mcg DAILY@06 PO Last administered on 06:06; Admin Dose 100 MCG; Start 06/04/16 at 06:00 Pantoprazole (Protonix Iv) 40 mg DAILY@06 IV Last administered on 07/14/16 06: 06; Admin Dose 40 MG; Start 06/09/16 at 06:00 Lorazepam (Ativan) 1 mg Q6H PRN IV AGITATION/ANXIETY Last administered on 16:14; Admin Dose 1 MG; Start 06/08/16 at 18:00 Acetaminophen/ Hydrocodone Bitart ([place] (5/325)) 1 tab Q6H PRN PO PAIN Last administered on 06/11/16at 17:38; Admin Dose 1 TAB; Start 06/11/16 at 17:30 Collagenase (Santyl) 1 applic DAILY TOP Last administered on 07/12/16 11:04; Admin Dose 1 APPLIC; Start 06/12/16 at 09:00 Nystatin (Nystatin Susp) 5 ml QID PO Last administered on 07/14/16 13:14; Admin Dose 5 ML; Start 06/18/16 at 17:00 Scopolamine (Transderm-Scop) 1 patch Q72H TRANSDERM Last administered on 21:45; Admin Dose 1 PATCH; Start 06/22/16 at 21:00 Fluconazole 100 mg 100 mg DAILY PO Last administered on 07/14/16 09:06; Admin Dose 100 MG; Start 06/28/16 at 09:00 Sodium Chloride (NS) 1,000 ml @ 100 mls/hr Q10H IV Last administered on 06:06; Admin Dose 100 MLS/HR; Start 07/01/16 at 19:00 Lactobacillus Acidoph/Bulgaricus (Floranex) 1 tab BID PO Last administered on 09:06; Admin Dose 1 TAB; Start 07/01/16 at 21:00 Potassium Chloride (Klor-Con 20) 20 meq BID PO Last administered on 07/14/16 09:06; Admin Dose 20 MEQ; Start 07/03/16 at 21:00 Ibuprofen 600 mg 600 mg TID PRN PO FEVER Last administered on 07/04/16 01:29; Admin Dose 600 MG; Start 07/03/16 at 19:30 Vancomycin HCl 1.25 gm/Sodium Chloride 250 ml @ 83.333 mls/ hr Q12H IVPB Last administered on 07/14/16t 11:38; Admin Dose 83.333 MLS/HR; Start 07/13/16 at 23: 00 Filgrastim/ Dextrose (Neupogen/D5W) 51.6 ml @ 103.2 mls/ hr DAILY@17 IVPB ; Start 07/14/16 at 17:00 RODRÍGUEZ ERAZO NP Jul 14, 2016 16:24
[2016-07-14] MEDS: FILGRASTIM IVPB SCH (18:50)
[2016-07-14] MEDS: DEXTROSE 5% IVPB SCH (18:50)
[2016-07-14 20:18] VITALS: BP 131/79; RESP 20
[2016-07-14] MEDS: LORAZEPAM 2 MG INJ IV PRN (20:19)
[2016-07-15] MEDS: SOD CHLORIDE 0.9% 1,000 ML IV SCH ×3 (02:32→22:22)
[2016-07-15] MEDS: ALBUTEROL/IPRATROPIUM (NEB) 3 ML AMP HHN SCH ×4 (02:53→20:02)
[2016-07-15] MEDS: PANTOPRAZOLE 40 MG INJ IV SCH (05:58)
[2016-07-15] MEDS: LEVOTHYROXINE 100 MCG TAB PO SCH (06:00)
[2016-07-15 07:03] LABS: ALBUMIN 2.9 g/dl (3.3-4.9)
[2016-07-15 07:04] LABS: POTASSIUM 3.3 mmol/L (3.5-5.1)
[2016-07-15 07:06] LABS: ALBUMIN/GLOBULIN RATIO 1.26; BILIRUBIN,INDIRECT 0.5 mg/dl (0-1.1); BILIRUBIN,TOTAL 0.5 mg/dl (0.2-1.3); CREATININE 0.33 mg/dl (0.44-1.00); TOTAL PROTEIN 5.2 g/dl (6.1-8.1)
[2016-07-15 07:07] LABS: CALCIUM 8.7 mg/dl (8.4-10.2)
[2016-07-15 07:09] LABS: HEMATOCRIT 26.6 % (37.0-47.0); HEMOGLOBIN 9.3 g/dl (12.0-16.0); MEAN CORPUSCULAR HEMOGLOBIN 29.8 pg (29.0-33.0); MEAN CORPUSCULAR VOLUME 85.2 fl (82.0-101.0); MEAN PLATELET VOLUME 9.5 fl (7.4-10.4); RED BLOOD COUNT 3.13 10^6/ul (4.20-5.40); RED CELL DISTRIBUTION WIDTH 14.5 % (11.5-14.5); UNCORRECTED WBC 0.4 10^3/ul (4.8-10.8); WHITE BLOOD COUNT 0.4 10^3/ul (4.8-10.8)
[2016-07-15 07:40] LABS: CONDITION 1; LH ANALYZER COMMENTS 1; SUSPECT 1
[2016-07-15 07:42] LABS: PLATELET COUNT 10 10^3/UL (140-440)
[2016-07-15 08:25] VITALS: BP 112/78; RESP 16
[2016-07-15] MEDS: GABAPENTIN 100 MG CAP PO SCH ×3 (08:51→21:00)
[2016-07-15] MEDS: ACYCLOVIR 400 MG TAB PO SCH ×2 (08:51→21:00)
[2016-07-15] MEDS: ALLOPURINOL 300 MG TAB PO SCH (08:51)
[2016-07-15] MEDS: NYSTATIN SUSP 5 ML CUP PO SCH ×4 (08:51→21:00)
[2016-07-15] MEDS: POTASSIUM CHLORIDE (SR) 20 MEQ TAB PO SCH ×2 (08:51→21:00)
[2016-07-15] MEDS: FLUCONAZOLE 100 MG TAB PO SCH (08:51)
[2016-07-15] MEDS: OCULAR LUBRICANT 3.5 GM OPH OINT BOTH EYES SCH (08:51)
[2016-07-15] MEDS: LACTOBACILLUS CHEW TAB PO SCH ×2 (08:51→21:00)
[2016-07-15] MEDS: ARTIFICIAL TEARS 15 ML OPH BOTH EYES SCH ×4 (08:52→20:29)
[2016-07-15] MEDS: COLLAGENASE 30 GM TUBE TOP SCH (09:00)
[2016-07-15] MEDS: VANCOMYCIN 1.25 GM in SOD CHLORIDE 0.9% 250 ML IVPB SCH ×2 (12:12→23:28)
--- NOTE | 2016-07-15 13:32 | CONS ---
Date/Time of Note Date/Time of Note DATE: 07/15/16 TIME: 13:31 Assessment/Plan Assessment/Plan Chief Complaint/Hosp Course Subjective: No acute events per report, sleeping, no fevers, nad INDWELLINGS: Trach, PICC. ANTIMICROBIALS: 1. Vancomycin. 2. Diflucan. 3. Acyclovir. 4. Status post gentamicin. MICROBIOLOGY: Urine culture repeated on July 10 came back negative. PHYSICAL EXAMINATION: GENERAL: Fragile, middle-aged woman who is alert, in no distress. HEENT: Head atraumatic, normocephalic. Sclerae anicteric. Buccal mucosa pink. NECK: Supple. Tracheostomy present. CHEST: Rise symmetrical. Breath sounds clear. HEART: S1, S2. ABDOMEN: Soft, bowel tones present. EXTREMITIES: Without cyanosis. Trace ankle edema. ASSESSMENT: 1. Grade IIIA Burkitt lymphoma, going through chemotherapy cycles. 2. On/off cough==>resolved, no evidence for PNA per cxr. 3. Status post neutropenic fevers. 4. Methicillin resistant Staphylococcus aureus positive sputum. 5. Status post Pseudomonas aeruginosa urinary tract infection. 6. Status post tracheostomy secondary to neck mass with respiratory compromise. PLAN: The patient remains stable. Continue on current antimicrobials. Follow oncology recommendations. Panculture p.r.n. DW staff Problems: Consultation Date/Type/Reason Admit Date/Time Jun 02, 2016 at 15:10 Initial Consult Date 06/02/16 Type of Consultation: ID Referring Provider: TELLY SOLANO MD Exam/Review of Systems Vital Signs Vitals Vital Signs Date Time Temp Pulse Resp B/P Pulse Ox O2 Delivery O2 Flow Rate FiO2 07/15/16 10:08 Simple Mask 07/15/16 08:25 98.7 100 16 112/78 98 07/15/16 07:36 5.0 28 Intake and Output 07/14/16 07/14/16 07/15/16 15:00 23:00 07:00 Intake Total 1755.6 ml 1404 ml Balance 1755.6 ml 1404 ml Results Result Diagram: 07/15/16 0553 07/15/16 0553 Results 24 hrs Laboratory Tests Test 07/15/16 05:53 Alanine Aminotransferase (ALT/SGPT) 52 Albumin 2.9 L Albumin/Globulin Ratio 1.26 Alkaline Phosphatase 109 Anion Gap 11 Aspartate Amino Transf (AST/SGOT) 31 Basophils # Basophils % Blood Morphology Comment Blood Urea Nitrogen 2 L Calcium Level 8.7 Carbon Dioxide Level 26 Chloride Level 109 Creatinine 0.33 L Direct Bilirubin 0.00 Eosinophils # Eosinophils % Globulin 2.30 Glucose Level 84 Hematocrit 26.6 L Hemoglobin 9.3 L Indirect Bilirubin 0.5 Lactate Dehydrogenase 501 Lymphocytes # Lymphocytes % Mean Corpuscular Hemoglobin 29.8 Mean Corpuscular Hemoglobin Concent 35.0 Mean Corpuscular Volume 85.2 Mean Platelet Volume 9.5 Monocytes # Monocytes % Neutrophils # Neutrophils % Platelet Count 10 #*L Potassium Level 3.3 L Red Blood Count 3.13 L Red Cell Distribution Width 14.5 Sodium Level 143 Total Bilirubin 0.5 Total Protein 5.2 L White Blood Count 0.4 #L Medications Medications Current Medications Acyclovir (Zovirax) 400 mg BID PO Last administered on 07/15/16 08:51; Admin Dose 400 MG; Start 06/02/16 at 14:30 Diphenhydramine HCl (Benadryl) 25 mg Q4H PRN IV ALLERGIC REACTION Last administered on 06/06/16at 20:26; Admin Dose 25 MG; Start 06/02/16 at 18:30 Dexamethasone 10 mg 10 mg Q4H PRN IV ALLERGIC REACTION; Start 06/02/16 at 18: 30 Ondansetron HCl/ Sodium Chloride (Zofran Inj/NS) 54 ml @ 216 mls/hr Q6H PRN IV NAUSEA AND/OR VOMITING Last administered on 07/14/16 19:45; Admin Dose 216 MLS/HR; Start 06/02/16 at 18:30 Ondansetron HCl (Zofran Inj) 4 mg Q6H PRN IV NAUSEA AND/OR VOMITING Last administered on 07/14/16 13:23; Admin Dose 4 MG; Start 06/03/16 at 17:00 Acetaminophen (Tylenol Tab) 650 mg Q6H PRN PO PAIN LEVEL 1-3 OR FEVER Last administered on 07/12/16 16:42; Admin Dose 650 MG; Start 06/03/16 at 17:00 Acetaminophen (Tylenol Supp) 650 mg Q6H PRN [place] PAIN LEVEL 1-3 OR FEVER Last administered on 06/09/16 03:37; Admin Dose 650 MG; Start 06/03/16 at 17:00 Docusate Sodium (Colace) 100 mg Q12H PRN PO CONSTIPATION Last administered on 11:02; Admin Dose 100 MG; Start 06/03/16 at 17:00 Magnesium Hydroxide (Milk Of Mag) 30 ml DAILY PRN PO CONSTIPATION Last administered on 06/20/16 06:13; Admin Dose 30 ML; Start 06/03/16 at 17:00 Bisacodyl (Dulcolax) 5 mg DAILY PRN PO CONSTIPATION Last administered on 11:02; Admin Dose 5 MG; Start 06/03/16 at 17:00 Bisacodyl (Dulcolax Supp) 10 mg DAILY PRN [place] CONSTIPATION Last administered on 06/21/16 05:18; Admin Dose 10 MG; Start 06/03/16 at 17:00 Sodium Biphosphate/ Sodium Phosphate (Fleet Enema) 133 ml DAILY PRN [place] CONSTIPATION; Start 06/03/16 at 17:00 Enoxaparin Sodium (Lovenox) 30 mg DAILY SC Last administered on 06/12/16 08: 27; Admin Dose 30 MG; Start 06/04/16 at 09:00; Status Future Hold Allopurinol (Zyloprim) 300 mg DAILY PO Last administered on 07/15/16 08:51; Admin Dose 300 MG; Start 06/04/16 at 09:00 Eye Lubricant (Artificial Tears Oph) 2 drop QID BOTH EYES Last administered on 07/15/16 08:52; Admin Dose 2 DROP; Start 06/03/16 at 21:00 Eye Lubricant (Akwa Oint) 1 applic DAILY BOTH EYES Last administered on 08:51; Admin Dose 1 APPLIC; Start 06/04/16 at 09:00 Gabapentin (Neurontin) 200 mg TID PO Last administered on 07/15/16 12:12; Admin Dose 200 MG; Start 06/03/16 at 21:00 Levothyroxine Sodium (Synthroid) 100 mcg DAILY@06 PO Last administered on 06:06; Admin Dose 100 MCG; Start 06/04/16 at 06:00 Pantoprazole (Protonix Iv) 40 mg DAILY@06 IV Last administered on 07/15/16 05: 58; Admin Dose 40 MG; Start 06/09/16 at 06:00 Lorazepam (Ativan) 1 mg Q6H PRN IV AGITATION/ANXIETY Last administered on 20:19; Admin Dose 1 MG; Start 06/08/16 at 18:00 Acetaminophen/ Hydrocodone Bitart ([place] (5/325)) 1 tab Q6H PRN PO PAIN Last administered on 06/11/16at 17:38; Admin Dose 1 TAB; Start 06/11/16 at 17:30 Collagenase (Santyl) 1 applic DAILY TOP Last administered on 07/12/16 11:04; Admin Dose 1 APPLIC; Start 06/12/16 at 09:00 Nystatin (Nystatin Susp) 5 ml QID PO Last administered on 07/15/16 12:12; Admin Dose 5 ML; Start 06/18/16 at 17:00 Scopolamine (Transderm-Scop) 1 patch Q72H TRANSDERM Last administered on 21:45; Admin Dose 1 PATCH; Start 06/22/16 at 21:00 Fluconazole 100 mg 100 mg DAILY PO Last administered on 07/15/16 08:51; Admin Dose 100 MG; Start 06/28/16 at 09:00 Sodium Chloride (NS) 1,000 ml @ 100 mls/hr Q10H IV Last administered on 02:32; Admin Dose 100 MLS/HR; Start 07/01/16 at 19:00 Lactobacillus Acidoph/Bulgaricus (Floranex) 1 tab BID PO Last administered on 08:51; Admin Dose 1 TAB; Start 07/01/16 at 21:00 Potassium Chloride (Klor-Con 20) 20 meq BID PO Last administered on 07/15/16 08:51; Admin Dose 20 MEQ; Start 07/03/16 at 21:00 Ibuprofen 600 mg 600 mg TID PRN PO FEVER Last administered on 07/04/16 01:29; Admin Dose 600 MG; Start 07/03/16 at 19:30 Vancomycin HCl 1.25 gm/Sodium Chloride 250 ml @ 83.333 mls/ hr Q12H IVPB Last administered on 07/15/16 12:12; Admin Dose 83.333 MLS/HR; Start 07/13/16 at 23: 00 Filgrastim/ Dextrose (Neupogen/D5W) 51.6 ml @ 103.2 mls/ hr DAILY@17 IVPB Last administered on 07/14/16t 18:50; Admin Dose 103.2 MLS/HR; Start 07/14/16 at 17:00 Miscellaneous Information (*Rx Drug Level Order Reminder*) VANCO TROUGH @ 2, 200 ON... ONCE ONCE XX ; Start 07/15/16 at 22:00; Stop 07/15/16 at 22:01 RODRÍGUEZ ERAZO NP Jul 15, 2016 13:32
--- NOTE | 2016-07-15 13:32 | CONS ---
Date/Time of Note Date/Time of Note DATE: 07/15/16 TIME: 13:30 Assessment/Plan Assessment/Plan Chief Complaint/Hosp Course 56 yo female with massive neck mass causing tracheal compression and airway compromise s/p tracheostomy placement. 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 Pt was given cycle 1A and 1B of R HyperCVAD but had only a partial response to therapy and severe side effects. We have thus changed her chemotherapy regimen. She is now s/p cycle 1A of R-CODOX-M and has now completed her chemotherapy. Most recent CT neck showed resolution of the mass. Pt's counts are now improving and she is no longer transfusion dependant. She has since started Cycle 1B and is receiving R-IVAC Problems: Additional Assessment/Plan # Burkitt's lymphoma - currently day 11 cycle 1B R -IVAC. chemotherapy regimen is as follows Part 2: R-IVAC Rituximab (Rituxan) 375 mg/m2 IV once on day 1 Ifosfamide (Ifex) 1500 mg/m2 IV over 2 hours once per day on days 1 to 5 Etoposide (Vepesid) 60 mg/m2 IV over 1 hour once per day on days 1 to 5 Cytarabine (Cytosar) 2 g/m2 IV over 3 hours Q12H on days 1 & 2 (4 doses total) [place] (Mesnex) 300 mg/m2 (mixed with Ifosfamide (Ifex)) , then 300mg/m2 IV every four hours x 2, on days 1 to 5 # Neutropenic fevers -appreciate ID recs. continue meropenem and vancomycin -f/u blood and urine cultures -pt continues on Neupogen # Supportive Care and prophylactic meds -Started Acyclovir 400mg BID -fluconazole 100mg q day -Neupogen 300mcg q day day after chemotherapy is completed -Zofran ordered prn nausea #Expected Pancytopenia -keep Hg> 8 and platelets > 10. 2 units of PRBCs given yesterday. will check f/ u CBC. patient remains TRANSFUSION DEPENDANT # Elevated AST and ALT, likely related to methotrexate. 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 all steroids should be discontinued for now unless they are part of the chemotherapy regimen -continue to work with physical therapy. 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 -uric acid level ok Approximately 40 min were spent at patient's bedside and in coordination of her care Consultation Date/Type/Reason Admit Date/Time Jun 02, 2016 at 15:10 Initial Consult Date 06/02/16 Type of Consultation: Hematology Reason for Consultation Burkitt's lymphoma Referring Provider: TELLY SOLANO MD 24 HR Interval Summary Free Text/Dictation patient's nausea has improved Exam/Review of Systems Vital Signs Vitals Vital Signs Date Time Temp Pulse Resp B/P Pulse Ox O2 Delivery O2 Flow Rate FiO2 07/15/16 10:08 Simple Mask 07/15/16 08:25 98.7 100 16 112/78 98 07/15/16 07:36 5.0 28 Intake and Output 07/14/16 07/14/16 07/15/16 15:00 23:00 07:00 Intake Total 1755.6 ml 1404 ml Balance 1755.6 ml 1404 ml Exam Constitutional: alert, oriented Psych: anxiety Head: normocephalic Eyes: nl conjunctiva ENMT: other (trach in place) Neck: masses (mass resolved), supple Cardiovascular: nl pulses, regular rate and rhythm Gastrointestinal: soft Genitourinary - Female: nl adnexae, nl external genitalia Musculoskeletal: nl extremities to inspection Results Result Diagram: 07/15/16 0553 07/15/16 0553 Results 24 hrs Laboratory Tests Test 07/15/16 05:53 Alanine Aminotransferase (ALT/SGPT) 52 Albumin 2.9 L Albumin/Globulin Ratio 1.26 Alkaline Phosphatase 109 Anion Gap 11 Aspartate Amino Transf (AST/SGOT) 31 Basophils # Basophils % Blood Morphology Comment Blood Urea Nitrogen 2 L Calcium Level 8.7 Carbon Dioxide Level 26 Chloride Level 109 Creatinine 0.33 L Direct Bilirubin 0.00 Eosinophils # Eosinophils % Globulin 2.30 Glucose Level 84 Hematocrit 26.6 L Hemoglobin 9.3 L Indirect Bilirubin 0.5 Lactate Dehydrogenase 501 Lymphocytes # Lymphocytes % Mean Corpuscular Hemoglobin 29.8 Mean Corpuscular Hemoglobin Concent 35.0 Mean Corpuscular Volume 85.2 Mean Platelet Volume 9.5 Monocytes # Monocytes % Neutrophils # Neutrophils % Platelet Count 10 #*L Potassium Level 3.3 L Red Blood Count 3.13 L Red Cell Distribution Width 14.5 Sodium Level 143 Total Bilirubin 0.5 Total Protein 5.2 L White Blood Count 0.4 #L Medications Medications Current Medications Acyclovir (Zovirax) 400 mg BID PO Last administered on 07/15/16 08:51; Admin Dose 400 MG; Start 06/02/16 at 14:30 Diphenhydramine HCl (Benadryl) 25 mg Q4H PRN IV ALLERGIC REACTION Last administered on 06/06/16 20:26; Admin Dose 25 MG; Start 06/02/16 at 18:30 Dexamethasone 10 mg 10 mg Q4H PRN IV ALLERGIC REACTION; Start 06/02/16 at 18: 30 Ondansetron HCl/ Sodium Chloride (Zofran Inj/NS) 54 ml @ 216 mls/hr Q6H PRN IV NAUSEA AND/OR VOMITING Last administered on 07/14/16 19:45; Admin Dose 216 MLS/HR; Start 06/02/16 at 18:30 Ondansetron HCl (Zofran Inj) 4 mg Q6H PRN IV NAUSEA AND/OR VOMITING Last administered on 07/14/16 13:23; Admin Dose 4 MG; Start 06/03/16 at 17:00 Acetaminophen (Tylenol Tab) 650 mg Q6H PRN PO PAIN LEVEL 1-3 OR FEVER Last administered on 07/12/16 16:42; Admin Dose 650 MG; Start 06/03/16 at 17:00 Acetaminophen (Tylenol Supp) 650 mg Q6H PRN [place] PAIN LEVEL 1-3 OR FEVER Last administered on 06/09/16 03:37; Admin Dose 650 MG; Start 06/03/16 at 17:00 Docusate Sodium (Colace) 100 mg Q12H PRN PO CONSTIPATION Last administered on 11:02; Admin Dose 100 MG; Start 06/03/16 at 17:00 Magnesium Hydroxide (Milk Of Mag) 30 ml DAILY PRN PO CONSTIPATION Last administered on 06/20/16at 06:13; Admin Dose 30 ML; Start 06/03/16 at 17:00 Bisacodyl (Dulcolax) 5 mg DAILY PRN PO CONSTIPATION Last administered on 11:02; Admin Dose 5 MG; Start 06/03/16 at 17:00 Bisacodyl (Dulcolax Supp) 10 mg DAILY PRN [place] CONSTIPATION Last administered on 06/21/16 05:18; Admin Dose 10 MG; Start 06/03/16 at 17:00 Sodium Biphosphate/ Sodium Phosphate (Fleet Enema) 133 ml DAILY PRN [place] CONSTIPATION; Start 06/03/16 at 17:00 Enoxaparin Sodium (Lovenox) 30 mg DAILY SC Last administered on 06/12/16at 08: 27; Admin Dose 30 MG; Start 06/04/16 at 09:00; Status Future Hold Allopurinol (Zyloprim) 300 mg DAILY PO Last administered on 07/15/16 08:51; Admin Dose 300 MG; Start 06/04/16 at 09:00 Eye Lubricant (Artificial Tears Oph) 2 drop QID BOTH EYES Last administered on 07/15/16 08:52; Admin Dose 2 DROP; Start 06/03/16 at 21:00 Eye Lubricant (Akwa Oint) 1 applic DAILY BOTH EYES Last administered on 08:51; Admin Dose 1 APPLIC; Start 06/04/16 at 09:00 Gabapentin (Neurontin) 200 mg TID PO Last administered on 07/15/16 12:12; Admin Dose 200 MG; Start 06/03/16 at 21:00 Levothyroxine Sodium (Synthroid) 100 mcg DAILY@06 PO Last administered on 06:06; Admin Dose 100 MCG; Start 06/04/16 at 06:00 Pantoprazole (Protonix Iv) 40 mg DAILY@06 IV Last administered on 07/15/16 05: 58; Admin Dose 40 MG; Start 06/09/16 at 06:00 Lorazepam (Ativan) 1 mg Q6H PRN IV AGITATION/ANXIETY Last administered on 20:19; Admin Dose 1 MG; Start 06/08/16 at 18:00 Acetaminophen/ Hydrocodone Bitart ([place] (5/325)) 1 tab Q6H PRN PO PAIN Last administered on 06/11/16at 17:38; Admin Dose 1 TAB; Start 06/11/16 at 17:30 Collagenase (Santyl) 1 applic DAILY TOP Last administered on 07/12/16 11:04; Admin Dose 1 APPLIC; Start 06/12/16 at 09:00 Nystatin (Nystatin Susp) 5 ml QID PO Last administered on 07/15/16 12:12; Admin Dose 5 ML; Start 06/18/16 at 17:00 Scopolamine (Transderm-Scop) 1 patch Q72H TRANSDERM Last administered on 21:45; Admin Dose 1 PATCH; Start 06/22/16 at 21:00 Fluconazole 100 mg 100 mg DAILY PO Last administered on 07/15/16 08:51; Admin Dose 100 MG; Start 06/28/16 at 09:00 Sodium Chloride (NS) 1,000 ml @ 100 mls/hr Q10H IV Last administered on 02:32; Admin Dose 100 MLS/HR; Start 07/01/16 at 19:00 Lactobacillus Acidoph/Bulgaricus (Floranex) 1 tab BID PO Last administered on 08:51; Admin Dose 1 TAB; Start 07/01/16 at 21:00 Potassium Chloride (Klor-Con 20) 20 meq BID PO Last administered on 07/15/16 08:51; Admin Dose 20 MEQ; Start 07/03/16 at 21:00 Ibuprofen 600 mg 600 mg TID PRN PO FEVER Last administered on 07/04/16 01:29; Admin Dose 600 MG; Start 07/03/16 at 19:30 Vancomycin HCl 1.25 gm/Sodium Chloride 250 ml @ 83.333 mls/ hr Q12H IVPB Last administered on 07/15/16 12:12; Admin Dose 83.333 MLS/HR; Start 07/13/16 at 23: 00 Filgrastim/ Dextrose (Neupogen/D5W) 51.6 ml @ 103.2 mls/ hr DAILY@17 IVPB Last administered on 07/14/16 18:50; Admin Dose 103.2 MLS/HR; Start 07/14/16 at 17:00 Miscellaneous Information (*Rx Drug Level Order Reminder*) VANCO TROUGH @ 2, 200 ON... ONCE ONCE XX ; Start 07/15/16 at 22:00; Stop 07/15/16 at 22:01 CHANDRIKA MERLOS M.D. Jul 15, 2016 13:32
[2016-07-15 14:34] LABS: LYMPHOCYTES # 0.1 10^3/ul (0.8-2.9); NEUTROPHIL # 0.1 10^3/ul (1.6-7.5)
--- NOTE | 2016-07-15 15:18 | PN ---
Date/Time of Note Date/Time of Note DATE: 07/15/16 TIME: 15:16 Assessment/Plan VTE Prophylaxis VTE Prophylaxis Intervention: other Lines/Catheters IV Catheter Type (from Nrs): PICC Line Central line still needed: Yes Urinary Cath still in place: No Assessment/Plan Chief Complaint/Hosp Course IMPRESSION: The patient has Burkitt's lymphoma HX tracheostomy, status post thyroid mass, pancytopenia, abnormal liver function test. better SEPSIS better gallstone ABN LFT better anemia post chemo uti pancytopenia PLAN per oncology LABS chemo per id Problems: Subjective 24 Hr Interval Summary Subjective hx not possible: other (weakness) Cardiovascular: no complaints Gastrointestinal: no complaints Genitourinary: no complaints Exam/Review of Systems Vital Signs Vitals Vital Signs Date Time Temp Pulse Resp B/P Pulse Ox O2 Delivery O2 Flow Rate FiO2 07/15/16 14:33 92 18 100 Aerosol 5.0 28 07/15/16 08:25 98.7 112/78 Intake and Output 07/14/16 07/14/16 07/15/16 15:00 23:00 07:00 Intake Total 1755.6 ml 1404 ml Balance 1755.6 ml 1404 ml Exam Neck: supple Respiratory: clear to auscultation Cardiovascular: regular rate and rhythm Gastrointestinal: bowel sounds, nl liver, spleen, non-tender, soft Extremities: No edema Results Result Diagram: 07/15/16 0553 07/15/16 0553 Results 24 hrs Laboratory Tests Test 07/15/16 05:53 Alanine Aminotransferase (ALT/SGPT) 52 Albumin 2.9 L Albumin/Globulin Ratio 1.26 Alkaline Phosphatase 109 Anion Gap 11 Aspartate Amino Transf (AST/SGOT) 31 Band Neutrophils % 24.0 H Basophils # Basophils % Blast Cells % 7.0 H Blastocytes # 0.0 Blood Morphology Comment Blood Urea Nitrogen 2 L Calcium Level 8.7 Carbon Dioxide Level 26 Chloride Level 109 Creatinine 0.33 L Direct Bilirubin 0.00 Eosinophils # Eosinophils % Globulin 2.30 Glucose Level 84 Hematocrit 26.6 L Hemoglobin 9.3 L Indirect Bilirubin 0.5 Lactate Dehydrogenase 501 Lymphocytes # 0.1 L Lymphocytes % 32.0 Mean Corpuscular Hemoglobin 29.8 Mean Corpuscular Hemoglobin Concent 35.0 Mean Corpuscular Volume 85.2 Mean Platelet Volume 9.5 Metamyelocytes # 0.0 Metamyelocytes % 5.0 H Monocytes # Monocytes % Myelocytes # 0.0 Myelocytes % 2.0 H Neutrophils # 0.1 L Neutrophils % 30.0 L Platelet Count 10 #*L Potassium Level 3.3 L Red Blood Count 3.13 L Red Cell Distribution Width 14.5 Sodium Level 143 Total Bilirubin 0.5 Total Protein 5.2 L White Blood Count 0.4 #L Medications Medications Current Medications Acyclovir (Zovirax) 400 mg BID PO Last administered on 07/15/16 08:51; Admin Dose 400 MG; Start 06/02/16 at 14:30 Diphenhydramine HCl (Benadryl) 25 mg Q4H PRN IV ALLERGIC REACTION Last administered on 06/06/16 20:26; Admin Dose 25 MG; Start 06/02/16 at 18:30 Dexamethasone 10 mg 10 mg Q4H PRN IV ALLERGIC REACTION; Start 06/02/16 at 18: 30 Ondansetron HCl/ Sodium Chloride (Zofran Inj/NS) 54 ml @ 216 mls/hr Q6H PRN IV NAUSEA AND/OR VOMITING Last administered on 07/14/16 19:45; Admin Dose 216 MLS/HR; Start 06/02/16 at 18:30 Ondansetron HCl (Zofran Inj) 4 mg Q6H PRN IV NAUSEA AND/OR VOMITING Last administered on 07/14/16 13:23; Admin Dose 4 MG; Start 06/03/16 at 17:00 Acetaminophen (Tylenol Tab) 650 mg Q6H PRN PO PAIN LEVEL 1-3 OR FEVER Last administered on 07/12/16 16:42; Admin Dose 650 MG; Start 06/03/16 at 17:00 Acetaminophen (Tylenol Supp) 650 mg Q6H PRN [place] PAIN LEVEL 1-3 OR FEVER Last administered on 06/09/16 03:37; Admin Dose 650 MG; Start 06/03/16 at 17:00 Docusate Sodium (Colace) 100 mg Q12H PRN PO CONSTIPATION Last administered on 11:02; Admin Dose 100 MG; Start 06/03/16 at 17:00 Magnesium Hydroxide (Milk Of Mag) 30 ml DAILY PRN PO CONSTIPATION Last administered on 06/20/16 06:13; Admin Dose 30 ML; Start 06/03/16 at 17:00 Bisacodyl (Dulcolax) 5 mg DAILY PRN PO CONSTIPATION Last administered on 11:02; Admin Dose 5 MG; Start 06/03/16 at 17:00 Bisacodyl (Dulcolax Supp) 10 mg DAILY PRN [place] CONSTIPATION Last administered on 06/21/16 05:18; Admin Dose 10 MG; Start 06/03/16 at 17:00 Sodium Biphosphate/ Sodium Phosphate (Fleet Enema) 133 ml DAILY PRN [place] CONSTIPATION; Start 06/03/16 at 17:00 Enoxaparin Sodium (Lovenox) 30 mg DAILY SC Last administered on 06/12/16 08: 27; Admin Dose 30 MG; Start 06/04/16 at 09:00; Status Future Hold Allopurinol (Zyloprim) 300 mg DAILY PO Last administered on 07/15/16 08:51; Admin Dose 300 MG; Start 06/04/16 at 09:00 Eye Lubricant (Artificial Tears Oph) 2 drop QID BOTH EYES Last administered on 07/15/16 08:52; Admin Dose 2 DROP; Start 06/03/16 at 21:00 Eye Lubricant (Akwa Oint) 1 applic DAILY BOTH EYES Last administered on 08:51; Admin Dose 1 APPLIC; Start 06/04/16 at 09:00 Gabapentin (Neurontin) 200 mg TID PO Last administered on 07/15/16 12:12; Admin Dose 200 MG; Start 06/03/16 at 21:00 Levothyroxine Sodium (Synthroid) 100 mcg DAILY@06 PO Last administered on 06:06; Admin Dose 100 MCG; Start 06/04/16 at 06:00 Pantoprazole (Protonix Iv) 40 mg DAILY@06 IV Last administered on 07/15/16 05: 58; Admin Dose 40 MG; Start 06/09/16 at 06:00 Lorazepam (Ativan) 1 mg Q6H PRN IV AGITATION/ANXIETY Last administered on 20:19; Admin Dose 1 MG; Start 06/08/16 at 18:00 Acetaminophen/ Hydrocodone Bitart ([place] (5/325)) 1 tab Q6H PRN PO PAIN Last administered on 06/11/16at 17:38; Admin Dose 1 TAB; Start 06/11/16 at 17:30 Collagenase (Santyl) 1 applic DAILY TOP Last administered on 07/12/16 11:04; Admin Dose 1 APPLIC; Start 06/12/16 at 09:00 Nystatin (Nystatin Susp) 5 ml QID PO Last administered on 07/15/16 12:12; Admin Dose 5 ML; Start 06/18/16 at 17:00 Scopolamine (Transderm-Scop) 1 patch Q72H TRANSDERM Last administered on 21:45; Admin Dose 1 PATCH; Start 06/22/16 at 21:00 Fluconazole 100 mg 100 mg DAILY PO Last administered on 07/15/16 08:51; Admin Dose 100 MG; Start 06/28/16 at 09:00 Sodium Chloride (NS) 1,000 ml @ 100 mls/hr Q10H IV Last administered on 02:32; Admin Dose 100 MLS/HR; Start 07/01/16 at 19:00 Lactobacillus Acidoph/Bulgaricus (Floranex) 1 tab BID PO Last administered on 08:51; Admin Dose 1 TAB; Start 07/01/16 at 21:00 Potassium Chloride (Klor-Con 20) 20 meq BID PO Last administered on 07/15/16 08:51; Admin Dose 20 MEQ; Start 07/03/16 at 21:00 Ibuprofen 600 mg 600 mg TID PRN PO FEVER Last administered on 07/04/16 01:29; Admin Dose 600 MG; Start 07/03/16 at 19:30 Vancomycin HCl 1.25 gm/Sodium Chloride 250 ml @ 83.333 mls/ hr Q12H IVPB Last administered on 07/15/16 12:12; Admin Dose 83.333 MLS/HR; Start 07/13/16 at 23: 00 Filgrastim/ Dextrose (Neupogen/D5W) 51.6 ml @ 103.2 mls/ hr DAILY@17 IVPB Last administered on 07/14/16 18:50; Admin Dose 103.2 MLS/HR; Start 07/14/16 at 17:00 Miscellaneous Information (*Rx Drug Level Order Reminder*) VANCO TROUGH @ 2, 200 ON... ONCE ONCE XX ; Start 07/15/16 at 22:00; Stop 07/15/16 at 22:01 GUERLINE SULLIVAN MD Jul 15, 2016 15:17
[2016-07-15] MEDS ORDERED: POTASSIUM CHLORIDE 30 MEQ in DEXTROSE 5% 250 ML IVPB ONE (15:30)
[2016-07-15] MEDS: FILGRASTIM IVPB SCH (16:26)
[2016-07-15] MEDS: DEXTROSE 5% IVPB SCH (16:26)
[2016-07-15] MEDS: ONDANSETRON 4 MG INJ IV PRN (19:38)
[2016-07-15] MEDS: ACETAMINOPHEN 650 MG SUPP PR PRN (19:50)
[2016-07-15 20:46] VITALS: BP 118/57; RESP 20
[2016-07-16] MEDS: ALBUTEROL/IPRATROPIUM (NEB) 3 ML AMP HHN SCH ×4 (01:40→20:08)
[2016-07-16] MEDS: LEVOTHYROXINE 100 MCG TAB PO SCH ×2 (05:20→09:39)
[2016-07-16] MEDS: PANTOPRAZOLE 40 MG INJ IV SCH (06:10)
[2016-07-16 07:15] LABS: HEMATOCRIT 26.8 % (37.0-47.0); HEMOGLOBIN 9.5 g/dl (12.0-16.0); MEAN CORPUSCULAR HEMOGLOBIN 29.7 pg (29.0-33.0); MEAN CORPUSCULAR HGB CONC 35.4 g/dl (32.0-37.0); MEAN CORPUSCULAR VOLUME 83.8 fl (82.0-101.0); MEAN PLATELET VOLUME 8.6 fl (7.4-10.4); RED BLOOD COUNT 3.19 10^6/ul (4.20-5.40); UNCORRECTED WBC 1.7 10^3/ul (4.8-10.8); WHITE BLOOD COUNT 1.7 10^3/ul (4.8-10.8)
[2016-07-16 07:17] LABS: CONDITION 1; LH ANALYZER COMMENTS 1; SUSPECT 1
[2016-07-16 07:19] LABS: PLATELET COUNT 18 10^3/UL (140-440)
[2016-07-16 07:24] LABS: ALBUMIN 2.9 g/dl (3.3-4.9); POTASSIUM 3.4 mmol/L (3.5-5.1)
[2016-07-16 07:27] LABS: ALBUMIN/GLOBULIN RATIO 1.26; BILIRUBIN,INDIRECT 0.6 mg/dl (0-1.1); BILIRUBIN,TOTAL 0.6 mg/dl (0.2-1.3); CALCIUM 8.8 mg/dl (8.4-10.2); CREATININE 0.32 mg/dl (0.44-1.00); TOTAL PROTEIN 5.2 g/dl (6.1-8.1)
[2016-07-16 08:38] VITALS: BP 124/69; RESP 20
[2016-07-16 08:49] LABS: MONOCYTE # 0.2 10^3/ul (0.3-0.9); NEUTROPHIL # 0.9 10^3/ul (1.6-7.5); PLATELET ESTIMATE PLT APPEAR DECREASED
[2016-07-16] MEDS: OCULAR LUBRICANT 3.5 GM OPH OINT BOTH EYES SCH (09:00)
[2016-07-16] MEDS: POTASSIUM CHLORIDE (SR) 20 MEQ TAB PO SCH ×2 (09:39→21:40)
[2016-07-16] MEDS: NYSTATIN SUSP 5 ML CUP PO SCH ×4 (09:39→21:42)
[2016-07-16] MEDS: LACTOBACILLUS CHEW TAB PO SCH ×2 (09:39→21:42)
[2016-07-16] MEDS: GABAPENTIN 100 MG CAP PO SCH ×3 (09:39→21:41)
[2016-07-16] MEDS: ALLOPURINOL 300 MG TAB PO SCH (09:40)
[2016-07-16] MEDS: FLUCONAZOLE 100 MG TAB PO SCH (09:40)
[2016-07-16] MEDS: ARTIFICIAL TEARS 15 ML OPH BOTH EYES SCH ×4 (09:40→21:42)
[2016-07-16] MEDS: ACYCLOVIR 400 MG TAB PO SCH ×2 (09:40→21:41)
[2016-07-16] MEDS: METOCLOPRAMIDE 10 MG INJ IV PRN (09:44)
[2016-07-16] MEDS: COLLAGENASE 30 GM TUBE TOP SCH (09:48)
[2016-07-16] MEDS: LORAZEPAM 2 MG INJ IV PRN ×2 (10:10→22:29)
--- NOTE | 2016-07-16 11:17 | CONS ---
Date/Time of Note Date/Time of Note DATE: 07/16/16 TIME: 11:13 Assessment/Plan Assessment/Plan Chief Complaint/Hosp Course 56 yo female with massive neck mass causing tracheal compression and airway compromise s/p tracheostomy placement. 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 Pt was given cycle 1A and 1B of R HyperCVAD but had only a partial response to therapy and severe side effects. We have thus changed her chemotherapy regimen. She is now s/p cycle 1A of R-CODOX-M and has now completed her chemotherapy. Most recent CT neck showed resolution of the mass. . She has since started Cycle 1B and is receiving R-IVAC. She is currently pancytopenic and transfusion dependant Problems: Additional Assessment/Plan # Burkitt's lymphoma - currently day 12 cycle 1B R -IVAC. chemotherapy regimen is as follows Part 2: R-IVAC Rituximab (Rituxan) 375 mg/m2 IV once on day 1 Ifosfamide (Ifex) 1500 mg/m2 IV over 2 hours once per day on days 1 to 5 Etoposide (Vepesid) 60 mg/m2 IV over 1 hour once per day on days 1 to 5 Cytarabine (Cytosar) 2 g/m2 IV over 3 hours Q12H on days 1 & 2 (4 doses total) [place] (Mesnex) 300 mg/m2 (mixed with Ifosfamide (Ifex)) , then 300mg/m2 IV every four hours x 2, on days 1 to 5 # Neutropenic fevers -appreciate ID recs. continue meropenem and vancomycin. ANC rising appropriately -f/u blood and urine cultures -pt continues on Neupogen # Supportive Care and prophylactic meds -Started Acyclovir 400mg BID -fluconazole 100mg q day -Neupogen 300mcg q day day after chemotherapy is completed -Zofran ordered prn nausea #Expected Pancytopenia -keep Hg> 8 and platelets > 10. 2 units of PRBCs given yesterday. will check f/ u CBC. patient remains TRANSFUSION DEPENDANT # Elevated AST and ALT, likely related to methotrexate. 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 all steroids should be discontinued for now unless they are part of the chemotherapy regimen -continue to work with physical therapy. 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 -uric acid level ok Approximately 40 min were spent at patient's bedside and in coordination of her care Consultation Date/Type/Reason Admit Date/Time Jun 02, 2016 at 15:10 Initial Consult Date 06/02/16 Type of Consultation: Hematology Reason for Consultation burtkitt's lymphoma Referring Provider: TELLY SOLANO MD 24 HR Interval Summary Free Text/Dictation pt became extremely nauseous last night and developed chills during the platelet transfusion. pt states she is ambulating Exam/Review of Systems Vital Signs Vitals Vital Signs Date Time Temp Pulse Resp B/P Pulse Ox O2 Delivery O2 Flow Rate FiO2 07/16/16 08:38 98.2 99 20 124/69 98 07/16/16 04:51 5.0 28 07/16/16 01:40 Aerosol Intake and Output 07/15/16 07/15/16 07/16/16 15:00 23:00 07:00 Intake Total 250 ml 1600 ml 700 ml Output Total 200 ml Balance 250 ml 1400 ml 700 ml Exam Constitutional: alert, frail Psych: anxiety, depression Head: normocephalic Eyes: nl conjunctiva ENMT: nl external ears & nose Neck: other (trach in place) Respiratory: clear to auscultation, normal air movement Cardiovascular: regular rate and rhythm Gastrointestinal: soft Musculoskeletal: nl extremities to inspection, nl gait and stance Extremities: normal pulses Results Result Diagram: 07/16/16 0625 07/16/16 0625 Results 24 hrs Laboratory Tests Test 07/15/16 22:15 07/16/16 06:25 Vancomycin Level Trough 15.2 Alanine Aminotransferase (ALT/SGPT) 46 Albumin 2.9 L Albumin/Globulin Ratio 1.26 Alkaline Phosphatase 120 Anion Gap 13 Aspartate Amino Transf (AST/SGOT) 28 Band Neutrophils % 36.0 H Blood Morphology Comment Blood Urea Nitrogen 4 L Calcium Level 8.8 Carbon Dioxide Level 26 Chloride Level 106 Creatinine 0.32 L Direct Bilirubin 0.00 Globulin 2.30 Glucose Level 92 Hematocrit 26.8 L Hemoglobin 9.5 L Indirect Bilirubin 0.6 Lactate Dehydrogenase 535 Lymphocytes # 0.0 L Lymphocytes % 1.0 L Mean Corpuscular Hemoglobin 29.7 Mean Corpuscular Hemoglobin Concent 35.4 Mean Corpuscular Volume 83.8 Mean Platelet Volume 8.6 Monocytes # 0.2 L Monocytes % 10.0 Neutrophils # 0.9 L Neutrophils % 53.0 Platelet Count 18 #*L Platelet Estimate PLT APPEAR DECREASED Potassium Level 3.4 L Red Blood Count 3.19 L Red Cell Distribution Width 14.0 Sodium Level 142 Total Bilirubin 0.6 Total Protein 5.2 L White Blood Count 1.7 #L Medications Medications Current Medications Acyclovir (Zovirax) 400 mg BID PO Last administered on 07/16/16 09:40; Admin Dose 400 MG; Start 06/02/16 at 14:30 Diphenhydramine HCl (Benadryl) 25 mg Q4H PRN IV ALLERGIC REACTION Last administered on 06/06/16 20:26; Admin Dose 25 MG; Start 06/02/16 at 18:30 Dexamethasone 10 mg 10 mg Q4H PRN IV ALLERGIC REACTION; Start 06/02/16 at 18: 30 Ondansetron HCl/ Sodium Chloride (Zofran Inj/NS) 54 ml @ 216 mls/hr Q6H PRN IV NAUSEA AND/OR VOMITING Last administered on 07/14/16 19:45; Admin Dose 216 MLS/HR; Start 06/02/16 at 18:30 Ondansetron HCl (Zofran Inj) 4 mg Q6H PRN IV NAUSEA AND/OR VOMITING Last administered on 07/15/16 19:38; Admin Dose 4 MG; Start 06/03/16 at 17:00 Acetaminophen (Tylenol Tab) 650 mg Q6H PRN PO PAIN LEVEL 1-3 OR FEVER Last administered on 07/12/16 16:42; Admin Dose 650 MG; Start 06/03/16 at 17:00 Acetaminophen (Tylenol Supp) 650 mg Q6H PRN [place] PAIN LEVEL 1-3 OR FEVER Last administered on 07/15/16 19:50; Admin Dose 650 MG; Start 06/03/16 at 17:00 Docusate Sodium (Colace) 100 mg Q12H PRN PO CONSTIPATION Last administered on 11:02; Admin Dose 100 MG; Start 06/03/16 at 17:00 Magnesium Hydroxide (Milk Of Mag) 30 ml DAILY PRN PO CONSTIPATION Last administered on 06/20/16 06:13; Admin Dose 30 ML; Start 06/03/16 at 17:00 Bisacodyl (Dulcolax) 5 mg DAILY PRN PO CONSTIPATION Last administered on 11:02; Admin Dose 5 MG; Start 06/03/16 at 17:00 Bisacodyl (Dulcolax Supp) 10 mg DAILY PRN [place] CONSTIPATION Last administered on 06/21/16 05:18; Admin Dose 10 MG; Start 06/03/16 at 17:00 Sodium Biphosphate/ Sodium Phosphate (Fleet Enema) 133 ml DAILY PRN [place] CONSTIPATION; Start 06/03/16 at 17:00 Enoxaparin Sodium (Lovenox) 30 mg DAILY SC Last administered on 06/12/16at 08: 27; Admin Dose 30 MG; Start 06/04/16 at 09:00; Status Future Hold Allopurinol (Zyloprim) 300 mg DAILY PO Last administered on 07/16/16 09:40; Admin Dose 300 MG; Start 06/04/16 at 09:00 Eye Lubricant (Artificial Tears Oph) 2 drop QID BOTH EYES Last administered on 07/16/16 09:40; Admin Dose 2 DROP; Start 06/03/16 at 21:00 Eye Lubricant (Akwa Oint) 1 applic DAILY BOTH EYES Last administered on 08:51; Admin Dose 1 APPLIC; Start 06/04/16 at 09:00 Gabapentin (Neurontin) 200 mg TID PO Last administered on 07/16/16 09:39; Admin Dose 200 MG; Start 06/03/16 at 21:00 Levothyroxine Sodium (Synthroid) 100 mcg DAILY@06 PO Last administered on 09:39; Admin Dose 100 MCG; Start 06/04/16 at 06:00 Pantoprazole (Protonix Iv) 40 mg DAILY@06 IV Last administered on 07/16/16 06: 10; Admin Dose 40 MG; Start 06/09/16 at 06:00 Lorazepam (Ativan) 1 mg Q6H PRN IV AGITATION/ANXIETY Last administered on 10:10; Admin Dose 1 MG; Start 06/08/16 at 18:00 Acetaminophen/ Hydrocodone Bitart ([place] (5/325)) 1 tab Q6H PRN PO PAIN Last administered on 06/11/16at 17:38; Admin Dose 1 TAB; Start 06/11/16 at 17:30 Collagenase (Santyl) 1 applic DAILY TOP Last administered on 07/16/16 09:48; Admin Dose 1 APPLIC; Start 06/12/16 at 09:00 Nystatin (Nystatin Susp) 5 ml QID PO Last administered on 07/16/16 09:39; Admin Dose 5 ML; Start 06/18/16 at 17:00 Scopolamine (Transderm-Scop) 1 patch Q72H TRANSDERM Last administered on 21:45; Admin Dose 1 PATCH; Start 06/22/16 at 21:00 Fluconazole 100 mg 100 mg DAILY PO Last administered on 07/16/16 09:40; Admin Dose 100 MG; Start 06/28/16 at 09:00 Sodium Chloride (NS) 1,000 ml @ 100 mls/hr Q10H IV Last administered on 22:22; Admin Dose 100 MLS/HR; Start 07/01/16 at 19:00 Lactobacillus Acidoph/Bulgaricus (Floranex) 1 tab BID PO Last administered on 09:39; Admin Dose 1 TAB; Start 07/01/16 at 21:00 Potassium Chloride (Klor-Con 20) 20 meq BID PO Last administered on 07/16/16 09:39; Admin Dose 20 MEQ; Start 07/03/16 at 21:00 Ibuprofen 600 mg 600 mg TID PRN PO FEVER Last administered on 07/04/16 01:29; Admin Dose 600 MG; Start 07/03/16 at 19:30 Vancomycin HCl 1.25 gm/Sodium Chloride 250 ml @ 83.333 mls/ hr Q12H IVPB Last administered on 07/15/16 23:28; Admin Dose 83.333 MLS/HR; Start 07/13/16 at 23: 00 Filgrastim/ Dextrose (Neupogen/D5W) 51.6 ml @ 103.2 mls/ hr DAILY@17 IVPB Last administered on 07/15/16 16:26; Admin Dose 103.2 MLS/HR; Start 07/14/16 at 17:00 Metoclopramide HCl (Reglan) 10 mg Q6H PRN IV NAUSEA Last administered on 09:44; Admin Dose 10 MG; Start 07/16/16 at 08:30 CHANDRIKA MERLOS M.D. Jul 16, 2016 11:16
[2016-07-16] MEDS: VANCOMYCIN 1.25 GM in SOD CHLORIDE 0.9% 250 ML IVPB SCH ×2 (11:24→23:13)
[2016-07-16] MEDS: SOD CHLORIDE 0.9% 1,000 ML IV SCH ×2 (11:25→19:00)
--- NOTE | 2016-07-16 13:13 | PN ---
Date/Time of Note Date/Time of Note DATE: 07/16/16 TIME: 13:12 Assessment/Plan VTE Prophylaxis VTE Prophylaxis Intervention: other Lines/Catheters IV Catheter Type (from Nrs): PICC Line Central line still needed: Yes Urinary Cath still in place: No Assessment/Plan Chief Complaint/Hosp Course IMPRESSION: The patient has Burkitt's lymphoma HX tracheostomy, status post thyroid mass, pancytopenia, abnormal liver function test. better SEPSIS better gallstone ABN LFT better anemia post chemo uti pancytopenia PLAN per oncology chemo LABS chemo per id Problems: Subjective 24 Hr Interval Summary Subjective hx not possible: other (weakness) Exam/Review of Systems Vital Signs Vitals Vital Signs Date Time Temp Pulse Resp B/P Pulse Ox O2 Delivery O2 Flow Rate FiO2 07/16/16 08:38 98.2 99 20 124/69 98 07/16/16 04:51 5.0 28 07/16/16 01:40 Aerosol Intake and Output 07/15/16 07/15/16 07/16/16 15:00 23:00 07:00 Intake Total 250 ml 1600 ml 700 ml Output Total 200 ml Balance 250 ml 1400 ml 700 ml Exam Neck: supple Respiratory: clear to auscultation Cardiovascular: regular rate and rhythm Gastrointestinal: soft Musculoskeletal: nl extremities to inspection Extremities: normal pulses Results Result Diagram: 07/16/16 0625 07/16/16 0625 Results 24 hrs Laboratory Tests Test 07/15/16 22:15 07/16/16 06:25 Vancomycin Level Trough 15.2 Alanine Aminotransferase (ALT/SGPT) 46 Albumin 2.9 L Albumin/Globulin Ratio 1.26 Alkaline Phosphatase 120 Anion Gap 13 Aspartate Amino Transf (AST/SGOT) 28 Band Neutrophils % 36.0 H Blood Morphology Comment Blood Urea Nitrogen 4 L Calcium Level 8.8 Carbon Dioxide Level 26 Chloride Level 106 Creatinine 0.32 L Direct Bilirubin 0.00 Globulin 2.30 Glucose Level 92 Hematocrit 26.8 L Hemoglobin 9.5 L Indirect Bilirubin 0.6 Lactate Dehydrogenase 535 Lymphocytes # 0.0 L Lymphocytes % 1.0 L Mean Corpuscular Hemoglobin 29.7 Mean Corpuscular Hemoglobin Concent 35.4 Mean Corpuscular Volume 83.8 Mean Platelet Volume 8.6 Monocytes # 0.2 L Monocytes % 10.0 Neutrophils # 0.9 L Neutrophils % 53.0 Platelet Count 18 #*L Platelet Estimate PLT APPEAR DECREASED Potassium Level 3.4 L Red Blood Count 3.19 L Red Cell Distribution Width 14.0 Sodium Level 142 Total Bilirubin 0.6 Total Protein 5.2 L White Blood Count 1.7 #L Medications Medications Current Medications Acyclovir (Zovirax) 400 mg BID PO Last administered on 07/16/16 09:40; Admin Dose 400 MG; Start 06/02/16 at 14:30 Diphenhydramine HCl (Benadryl) 25 mg Q4H PRN IV ALLERGIC REACTION Last administered on 06/06/16at 20:26; Admin Dose 25 MG; Start 06/02/16 at 18:30 Dexamethasone 10 mg 10 mg Q4H PRN IV ALLERGIC REACTION; Start 06/02/16 at 18: 30 Ondansetron HCl/ Sodium Chloride (Zofran Inj/NS) 54 ml @ 216 mls/hr Q6H PRN IV NAUSEA AND/OR VOMITING Last administered on 07/14/16 19:45; Admin Dose 216 MLS/HR; Start 06/02/16 at 18:30 Ondansetron HCl (Zofran Inj) 4 mg Q6H PRN IV NAUSEA AND/OR VOMITING Last administered on 07/15/16 19:38; Admin Dose 4 MG; Start 06/03/16 at 17:00 Acetaminophen (Tylenol Tab) 650 mg Q6H PRN PO PAIN LEVEL 1-3 OR FEVER Last administered on 07/12/16 16:42; Admin Dose 650 MG; Start 06/03/16 at 17:00 Acetaminophen (Tylenol Supp) 650 mg Q6H PRN [place] PAIN LEVEL 1-3 OR FEVER Last administered on 07/15/16 19:50; Admin Dose 650 MG; Start 06/03/16 at 17:00 Docusate Sodium (Colace) 100 mg Q12H PRN PO CONSTIPATION Last administered on 11:02; Admin Dose 100 MG; Start 06/03/16 at 17:00 Magnesium Hydroxide (Milk Of Mag) 30 ml DAILY PRN PO CONSTIPATION Last administered on 06/20/16 06:13; Admin Dose 30 ML; Start 06/03/16 at 17:00 Bisacodyl (Dulcolax) 5 mg DAILY PRN PO CONSTIPATION Last administered on 11:02; Admin Dose 5 MG; Start 06/03/16 at 17:00 Bisacodyl (Dulcolax Supp) 10 mg DAILY PRN [place] CONSTIPATION Last administered on 06/21/16at 05:18; Admin Dose 10 MG; Start 06/03/16 at 17:00 Sodium Biphosphate/ Sodium Phosphate (Fleet Enema) 133 ml DAILY PRN [place] CONSTIPATION; Start 06/03/16 at 17:00 Enoxaparin Sodium (Lovenox) 30 mg DAILY SC Last administered on 06/12/16at 08: 27; Admin Dose 30 MG; Start 06/04/16 at 09:00; Status Future Hold Allopurinol (Zyloprim) 300 mg DAILY PO Last administered on 07/16/16 09:40; Admin Dose 300 MG; Start 06/04/16 at 09:00 Eye Lubricant (Artificial Tears Oph) 2 drop QID BOTH EYES Last administered on 07/16/16 09:40; Admin Dose 2 DROP; Start 06/03/16 at 21:00 Eye Lubricant (Akwa Oint) 1 applic DAILY BOTH EYES Last administered on 08:51; Admin Dose 1 APPLIC; Start 06/04/16 at 09:00 Gabapentin (Neurontin) 200 mg TID PO Last administered on 07/16/16 09:39; Admin Dose 200 MG; Start 06/03/16 at 21:00 Levothyroxine Sodium (Synthroid) 100 mcg DAILY@06 PO Last administered on 09:39; Admin Dose 100 MCG; Start 06/04/16 at 06:00 Pantoprazole (Protonix Iv) 40 mg DAILY@06 IV Last administered on 07/16/16 06: 10; Admin Dose 40 MG; Start 06/09/16 at 06:00 Lorazepam (Ativan) 1 mg Q6H PRN IV AGITATION/ANXIETY Last administered on 10:10; Admin Dose 1 MG; Start 06/08/16 at 18:00 Acetaminophen/ Hydrocodone Bitart ([place] (5/325)) 1 tab Q6H PRN PO PAIN Last administered on 06/11/16at 17:38; Admin Dose 1 TAB; Start 06/11/16 at 17:30 Collagenase (Santyl) 1 applic DAILY TOP Last administered on 07/16/16 09:48; Admin Dose 1 APPLIC; Start 06/12/16 at 09:00 Nystatin (Nystatin Susp) 5 ml QID PO Last administered on 07/16/16 09:39; Admin Dose 5 ML; Start 06/18/16 at 17:00 Scopolamine (Transderm-Scop) 1 patch Q72H TRANSDERM Last administered on 21:45; Admin Dose 1 PATCH; Start 06/22/16 at 21:00 Fluconazole 100 mg 100 mg DAILY PO Last administered on 07/16/16 09:40; Admin Dose 100 MG; Start 06/28/16 at 09:00 Sodium Chloride (NS) 1,000 ml @ 100 mls/hr Q10H IV Last administered on 11:25; Admin Dose 100 MLS/HR; Start 07/01/16 at 19:00 Lactobacillus Acidoph/Bulgaricus (Floranex) 1 tab BID PO Last administered on 09:39; Admin Dose 1 TAB; Start 07/01/16 at 21:00 Potassium Chloride (Klor-Con 20) 20 meq BID PO Last administered on 07/16/16 09:39; Admin Dose 20 MEQ; Start 07/03/16 at 21:00 Ibuprofen 600 mg 600 mg TID PRN PO FEVER Last administered on 07/04/16 01:29; Admin Dose 600 MG; Start 07/03/16 at 19:30 Vancomycin HCl 1.25 gm/Sodium Chloride 250 ml @ 83.333 mls/ hr Q12H IVPB Last administered on 07/16/16 11:24; Admin Dose 83.333 MLS/HR; Start 07/13/16 at 23: 00 Filgrastim/ Dextrose (Neupogen/D5W) 51.6 ml @ 103.2 mls/ hr DAILY@17 IVPB Last administered on 07/15/16 16:26; Admin Dose 103.2 MLS/HR; Start 07/14/16 at 17:00 Metoclopramide HCl (Reglan) 10 mg Q6H PRN IV NAUSEA Last administered on 09:44; Admin Dose 10 MG; Start 07/16/16 at 08:30 GUERLINE SULLIVAN MD Jul 16, 2016 13:13
--- NOTE | 2016-07-16 14:25 | CONS ---
Date/Time of Note Date/Time of Note DATE: 07/16/16 TIME: 14:24 Assessment/Plan Assessment/Plan Chief Complaint/Hosp Course Subjective: No acute events per report, pt was emotional and received Ativan, currently sleeping, no fevers, nad INDWELLING: Trach, PICC. ANTIMICROBIALS: 1. Vancomycin. 2. Diflucan. 3. Acyclovir. 4. Status post gentamicin. MICROBIOLOGY: Urine culture repeated on July 10 came back negative. PHYSICAL EXAMINATION: GENERAL: Fragile, middle-aged woman who is alert, in no distress. HEENT: Head atraumatic, normocephalic. Sclerae anicteric. Buccal mucosa pink. NECK: Supple. Tracheostomy present. CHEST: Rise symmetrical. Breath sounds clear. HEART: S1, S2. ABDOMEN: Soft, bowel tones present. EXTREMITIES: Without cyanosis. Trace ankle edema. ASSESSMENT: 1. Grade IIIA Burkitt lymphoma, going through chemotherapy cycles. 2. On/off cough==>resolved, no evidence for PNA per cxr. 3. Status post neutropenic fevers. 4. Methicillin resistant Staphylococcus aureus positive sputum. 5. Status post Pseudomonas aeruginosa urinary tract infection. 6. Status post tracheostomy secondary to neck mass with respiratory compromise. PLAN: The patient remains stable. Continue on current antimicrobials. Follow oncology recommendations. [facility] p.r.n. staff Problems: Consultation Date/Type/Reason Admit Date/Time Jun 02, 2016 at 15:10 Initial Consult Date 06/02/16 Type of Consultation: id Referring Provider: TELLY SOLANO MD Exam/Review of Systems Vital Signs Vitals Vital Signs Date Time Temp Pulse Resp B/P Pulse Ox O2 Delivery O2 Flow Rate FiO2 07/16/16 14:19 85 16 98 Aerosol 5.0 28 07/16/16 08:38 98.2 124/69 Intake and Output 07/15/16 07/15/16 07/16/16 15:00 23:00 07:00 Intake Total 250 ml 1600 ml 700 ml Output Total 200 ml Balance 250 ml 1400 ml 700 ml Results Result Diagram: 07/16/16 0625 07/16/16 0625 Results 24 hrs Laboratory Tests Test 07/15/16 22:15 07/16/16 06:25 Vancomycin Level Trough 15.2 Alanine Aminotransferase (ALT/SGPT) 46 Albumin 2.9 L Albumin/Globulin Ratio 1.26 Alkaline Phosphatase 120 Anion Gap 13 Aspartate Amino Transf (AST/SGOT) 28 Band Neutrophils % 36.0 H Blood Morphology Comment Blood Urea Nitrogen 4 L Calcium Level 8.8 Carbon Dioxide Level 26 Chloride Level 106 Creatinine 0.32 L Direct Bilirubin 0.00 Globulin 2.30 Glucose Level 92 Hematocrit 26.8 L Hemoglobin 9.5 L Indirect Bilirubin 0.6 Lactate Dehydrogenase 535 Lymphocytes # 0.0 L Lymphocytes % 1.0 L Mean Corpuscular Hemoglobin 29.7 Mean Corpuscular Hemoglobin Concent 35.4 Mean Corpuscular Volume 83.8 Mean Platelet Volume 8.6 Monocytes # 0.2 L Monocytes % 10.0 Neutrophils # 0.9 L Neutrophils % 53.0 Platelet Count 18 #*L Platelet Estimate PLT APPEAR DECREASED Potassium Level 3.4 L Red Blood Count 3.19 L Red Cell Distribution Width 14.0 Sodium Level 142 Total Bilirubin 0.6 Total Protein 5.2 L White Blood Count 1.7 #L Medications Medications Current Medications Acyclovir (Zovirax) 400 mg BID PO Last administered on 07/16/16 09:40; Admin Dose 400 MG; Start 06/02/16 at 14:30 Diphenhydramine HCl (Benadryl) 25 mg Q4H PRN IV ALLERGIC REACTION Last administered on 06/06/16at 20:26; Admin Dose 25 MG; Start 06/02/16 at 18:30 Dexamethasone 10 mg 10 mg Q4H PRN IV ALLERGIC REACTION; Start 06/02/16 at 18: 30 Ondansetron HCl/ Sodium Chloride (Zofran Inj/NS) 54 ml @ 216 mls/hr Q6H PRN IV NAUSEA AND/OR VOMITING Last administered on 07/14/16 19:45; Admin Dose 216 MLS/HR; Start 06/02/16 at 18:30 Ondansetron HCl (Zofran Inj) 4 mg Q6H PRN IV NAUSEA AND/OR VOMITING Last administered on 07/15/16 19:38; Admin Dose 4 MG; Start 06/03/16 at 17:00 Acetaminophen (Tylenol Tab) 650 mg Q6H PRN PO PAIN LEVEL 1-3 OR FEVER Last administered on 07/12/16 16:42; Admin Dose 650 MG; Start 06/03/16 at 17:00 Acetaminophen (Tylenol Supp) 650 mg Q6H PRN [place] PAIN LEVEL 1-3 OR FEVER Last administered on 07/15/16 19:50; Admin Dose 650 MG; Start 06/03/16 at 17:00 Docusate Sodium (Colace) 100 mg Q12H PRN PO CONSTIPATION Last administered on 11:02; Admin Dose 100 MG; Start 06/03/16 at 17:00 Magnesium Hydroxide (Milk Of Mag) 30 ml DAILY PRN PO CONSTIPATION Last administered on 06/20/16 06:13; Admin Dose 30 ML; Start 06/03/16 at 17:00 Bisacodyl (Dulcolax) 5 mg DAILY PRN PO CONSTIPATION Last administered on 11:02; Admin Dose 5 MG; Start 06/03/16 at 17:00 Bisacodyl (Dulcolax Supp) 10 mg DAILY PRN [place] CONSTIPATION Last administered on 06/21/16 05:18; Admin Dose 10 MG; Start 06/03/16 at 17:00 Sodium Biphosphate/ Sodium Phosphate (Fleet Enema) 133 ml DAILY PRN [place] CONSTIPATION; Start 06/03/16 at 17:00 Enoxaparin Sodium (Lovenox) 30 mg DAILY SC Last administered on 06/12/16 08: 27; Admin Dose 30 MG; Start 06/04/16 at 09:00; Status Future Hold Allopurinol (Zyloprim) 300 mg DAILY PO Last administered on 07/16/16 09:40; Admin Dose 300 MG; Start 06/04/16 at 09:00 Eye Lubricant (Artificial Tears Oph) 2 drop QID BOTH EYES Last administered on 07/16/16 09:40; Admin Dose 2 DROP; Start 06/03/16 at 21:00 Eye Lubricant (Akwa Oint) 1 applic DAILY BOTH EYES Last administered on 08:51; Admin Dose 1 APPLIC; Start 06/04/16 at 09:00 Gabapentin (Neurontin) 200 mg TID PO Last administered on 07/16/16 09:39; Admin Dose 200 MG; Start 06/03/16 at 21:00 Levothyroxine Sodium (Synthroid) 100 mcg DAILY@06 PO Last administered on 09:39; Admin Dose 100 MCG; Start 06/04/16 at 06:00 Pantoprazole (Protonix Iv) 40 mg DAILY@06 IV Last administered on 07/16/16 06: 10; Admin Dose 40 MG; Start 06/09/16 at 06:00 Lorazepam (Ativan) 1 mg Q6H PRN IV AGITATION/ANXIETY Last administered on 10:10; Admin Dose 1 MG; Start 06/08/16 at 18:00 Acetaminophen/ Hydrocodone Bitart ([place] (5/325)) 1 tab Q6H PRN PO PAIN Last administered on 06/11/16at 17:38; Admin Dose 1 TAB; Start 06/11/16 at 17:30 Collagenase (Santyl) 1 applic DAILY TOP Last administered on 07/16/16 09:48; Admin Dose 1 APPLIC; Start 06/12/16 at 09:00 Nystatin (Nystatin Susp) 5 ml QID PO Last administered on 07/16/16 09:39; Admin Dose 5 ML; Start 06/18/16 at 17:00 Scopolamine (Transderm-Scop) 1 patch Q72H TRANSDERM Last administered on 21:45; Admin Dose 1 PATCH; Start 06/22/16 at 21:00 Fluconazole 100 mg 100 mg DAILY PO Last administered on 07/16/16 09:40; Admin Dose 100 MG; Start 06/28/16 at 09:00 Sodium Chloride (NS) 1,000 ml @ 100 mls/hr Q10H IV Last administered on 11:25; Admin Dose 100 MLS/HR; Start 07/01/16 at 19:00 Lactobacillus Acidoph/Bulgaricus (Floranex) 1 tab BID PO Last administered on 09:39; Admin Dose 1 TAB; Start 07/01/16 at 21:00 Potassium Chloride (Klor-Con 20) 20 meq BID PO Last administered on 07/16/16 09:39; Admin Dose 20 MEQ; Start 07/03/16 at 21:00 Ibuprofen 600 mg 600 mg TID PRN PO FEVER Last administered on 07/04/16 01:29; Admin Dose 600 MG; Start 07/03/16 at 19:30 Vancomycin HCl 1.25 gm/Sodium Chloride 250 ml @ 83.333 mls/ hr Q12H IVPB Last administered on 07/16/16 11:24; Admin Dose 83.333 MLS/HR; Start 07/13/16 at 23: 00 Filgrastim/ Dextrose (Neupogen/D5W) 51.6 ml @ 103.2 mls/ hr DAILY@17 IVPB Last administered on 07/15/16 16:26; Admin Dose 103.2 MLS/HR; Start 07/14/16 at 17:00 Metoclopramide HCl 10 mg 10 mg Q6H PRN IV NAUSEA Last administered on 09:44; Admin Dose 10 MG; Start 07/16/16 at 08:30 Potassium Chloride/Dextrose (KCl/D5W) 265 ml @ 88.333 mls/ hr ONCE ONCE IVPB ; Start 07/16/16 at 14:30; Stop 07/16/16 at 17:29 RODRÍGUEZ ERAZO NP Jul 16, 2016 14:25
[2016-07-16] MEDS ORDERED: POTASSIUM CHLORIDE 30 MEQ in DEXTROSE 5% 250 ML IVPB ONE (14:30)
[2016-07-16] MEDS: DEXTROSE 5% IVPB SCH (18:07)
[2016-07-16] MEDS: FILGRASTIM IVPB SCH (18:07)
[2016-07-16 19:58] VITALS: BP 118/60; RESP 20
[2016-07-16] MEDS: SCOPOLAMINE 1.5 MG PATCH TRANSDERM SCH (21:42)
[2016-07-17] MEDS: ALBUTEROL/IPRATROPIUM (NEB) 3 ML AMP HHN SCH ×4 (01:19→19:37)
[2016-07-17] MEDS: SOD CHLORIDE 0.9% 1,000 ML IV SCH ×2 (04:26→15:00)
[2016-07-17 05:35] LABS: HEMATOCRIT 25.7 % (37.0-47.0); HEMOGLOBIN 9.2 g/dl (12.0-16.0); MEAN CORPUSCULAR HEMOGLOBIN 30.3 pg (29.0-33.0); MEAN CORPUSCULAR HGB CONC 35.7 g/dl (32.0-37.0); MEAN CORPUSCULAR VOLUME 84.7 fl (82.0-101.0); MEAN PLATELET VOLUME 7.5 fl (7.4-10.4); RED BLOOD COUNT 3.04 10^6/ul (4.20-5.40); RED CELL DISTRIBUTION WIDTH 14.1 % (11.5-14.5); UNCORRECTED WBC 3.6 10^3/ul (4.8-10.8); WHITE BLOOD COUNT 3.6 10^3/ul (4.8-10.8)
[2016-07-17 05:59] LABS: ALBUMIN 2.8 g/dl (3.3-4.9); POTASSIUM 3.5 mmol/L (3.5-5.1)
[2016-07-17 06:02] LABS: ALBUMIN/GLOBULIN RATIO 1.21; BILIRUBIN,INDIRECT 0.6 mg/dl (0-1.1); BILIRUBIN,TOTAL 0.6 mg/dl (0.2-1.3); CALCIUM 8.2 mg/dl (8.4-10.2); CREATININE 0.34 mg/dl (0.44-1.00); TOTAL PROTEIN 5.1 g/dl (6.1-8.1)
[2016-07-17] MEDS: PANTOPRAZOLE 40 MG INJ IV SCH (06:18)
[2016-07-17 06:30] LABS: CONDITION 1; LH ANALYZER COMMENTS 1; PLATELET COUNT 11 10^3/UL (140-440); SUSPECT 1
[2016-07-17 07:40] VITALS: BP 113/61; RESP 20
[2016-07-17] MEDS: POTASSIUM CHLORIDE (SR) 20 MEQ TAB PO SCH ×2 (09:21→21:10)
[2016-07-17] MEDS: FLUCONAZOLE 100 MG TAB PO SCH (09:21)
[2016-07-17] MEDS: LEVOTHYROXINE 100 MCG TAB PO SCH (09:21)
[2016-07-17] MEDS: ACYCLOVIR 400 MG TAB PO SCH ×2 (09:21→21:10)
[2016-07-17] MEDS: ALLOPURINOL 300 MG TAB PO SCH (09:21)
[2016-07-17] MEDS: LACTOBACILLUS CHEW TAB PO SCH ×2 (09:22→21:10)
[2016-07-17] MEDS: NYSTATIN SUSP 5 ML CUP PO SCH ×4 (09:22→21:09)
[2016-07-17] MEDS: GABAPENTIN 100 MG CAP PO SCH ×3 (09:22→21:10)
[2016-07-17] MEDS: OCULAR LUBRICANT 3.5 GM OPH OINT BOTH EYES SCH (09:23)
[2016-07-17] MEDS: ARTIFICIAL TEARS 15 ML OPH BOTH EYES SCH ×4 (09:23→21:09)
[2016-07-17] MEDS: COLLAGENASE 30 GM TUBE TOP SCH (09:24)
[2016-07-17] MEDS: METOCLOPRAMIDE 10 MG INJ IV PRN ×3 (09:43→23:02)
[2016-07-17 10:17] LABS: LYMPHOCYTES # 0.2 10^3/ul (0.8-2.9); MONOCYTE # 0.4 10^3/ul (0.3-0.9); NEUTROPHIL # 2.4 10^3/ul (1.6-7.5)
[2016-07-17 10:18] LABS: PLATELET ESTIMATE PLT APPEAR DECREASED
[2016-07-17] MEDS: VANCOMYCIN 1.25 GM in SOD CHLORIDE 0.9% 250 ML IVPB SCH ×2 (11:46→23:07)
--- NOTE | 2016-07-17 12:42 | CONS ---
Date/Time of Note Date/Time of Note DATE: 07/17/16 TIME: 12:41 Assessment/Plan Assessment/Plan Chief Complaint/Hosp Course 56 yo female with massive neck mass causing tracheal compression and airway compromise s/p tracheostomy placement. 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 Pt was given cycle 1A and 1B of R HyperCVAD but had only a partial response to therapy and severe side effects. We have thus changed her chemotherapy regimen. She is now s/p cycle 1A of R-CODOX-M and has now completed her chemotherapy. Most recent CT neck showed resolution of the mass. . She has since started Cycle 1B and is receiving R-IVAC. She is currently pancytopenic and transfusion dependant Problems: Additional Assessment/Plan # Burkitt's lymphoma - currently day 13 cycle 1B R -IVAC. chemotherapy regimen is as follows Part 2: R-IVAC Rituximab (Rituxan) 375 mg/m2 IV once on day 1 Ifosfamide (Ifex) 1500 mg/m2 IV over 2 hours once per day on days 1 to 5 Etoposide (Vepesid) 60 mg/m2 IV over 1 hour once per day on days 1 to 5 Cytarabine (Cytosar) 2 g/m2 IV over 3 hours Q12H on days 1 & 2 (4 doses total) [place] (Mesnex) 300 mg/m2 (mixed with Ifosfamide (Ifex)) , then 300mg/m2 IV every four hours x 2, on days 1 to 5 # Neutropenic fevers -appreciate ID recs. continue meropenem and vancomycin. ANC rising appropriately -f/u blood and urine cultures -pt continues on Neupogen # Supportive Care and prophylactic meds -Started Acyclovir 400mg BID -fluconazole 100mg q day -Neupogen 300mcg q day day after chemotherapy is completed -Zofran ordered prn nausea #Expected Pancytopenia -keep Hg> 8 and platelets > 10. . patient remains [employer]SF[employer]ION DEPENDANT.will likely need platelet transfusion tomorrow # Elevated AST and ALT, likely related to methotrexate. 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 all steroids should be discontinued for now unless they are part of the chemotherapy regimen -continue to work with physical therapy. 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 -uric acid level ok Approximately 40 min were spent at patient's bedside and in coordination of her care Consultation Date/Type/Reason Admit Date/Time Jun 02, 2016 at 15:10 Initial Consult Date 06/02/16 Type of Consultation: Hematology Reason for Consultation burkitt's lymphoma Referring Provider: TELLY SOLANO MD 24 HR Interval Summary Free Text/Dictation pt very anxious. nausea has improved Exam/Review of Systems Vital Signs Vitals Vital Signs Date Time Temp Pulse Resp B/P Pulse Ox O2 Delivery O2 Flow Rate FiO2 07/17/16 08:24 5.0 28 07/17/16 08:24 94 16 96 Aerosol T Tube 07/17/16 07:40 99.3 113/61 Intake and Output 07/16/16 07/16/16 07/17/16 15:00 23:00 07:00 Intake Total 1200 ml 1170 ml Output Total 800 ml Balance 1200 ml 370 ml Exam Constitutional: alert, oriented Psych: anxiety, depression Head: normocephalic Neck: other (trach in place) Respiratory: clear to auscultation, normal air movement Cardiovascular: regular rate and rhythm Gastrointestinal: soft Extremities: normal pulses Results Result Diagram: 07/17/16 0435 07/17/16 0435 Results 24 hrs Laboratory Tests Test 07/17/16 04:35 Alanine Aminotransferase (ALT/SGPT) 58 Albumin 2.8 L Albumin/Globulin Ratio 1.21 Alkaline Phosphatase 121 Anion Gap 11 Aspartate Amino Transf (AST/SGOT) 38 Band Neutrophils % 17.0 H Basophils # Basophils % Blood Morphology Comment Blood Urea Nitrogen 4 L Calcium Level 8.2 L Carbon Dioxide Level 25 Chloride Level 108 Creatinine 0.34 L Differential Comment MANUAL DIFF Direct Bilirubin 0.00 Eosinophils # Eosinophils % Globulin 2.30 Glucose Level 81 Hematocrit 25.7 L Hemoglobin 9.2 L Indirect Bilirubin 0.6 Lactate Dehydrogenase 685 H Lymphocytes # 0.2 L Lymphocytes % 5.0 L Mean Corpuscular Hemoglobin 30.3 Mean Corpuscular Hemoglobin Concent 35.7 Mean Corpuscular Volume 84.7 Mean Platelet Volume 7.5 Monocytes # 0.4 Monocytes % 10.0 Neutrophils # 2.4 Neutrophils % 68.0 Nucleated Red Blood Cells # Nucleated Red Blood Cells % Platelet Count 11 #*L Platelet Estimate PLT APPEAR DECREASED Potassium Level 3.5 Red Blood Count 3.04 L Red Cell Distribution Width 14.1 Sodium Level 140 Total Bilirubin 0.6 Total Protein 5.1 L White Blood Count 3.6 #L Medications Medications Current Medications Acyclovir (Zovirax) 400 mg BID PO Last administered on 07/17/16 09:21; Admin Dose 400 MG; Start 06/02/16 at 14:30 Diphenhydramine HCl (Benadryl) 25 mg Q4H PRN IV ALLERGIC REACTION Last administered on 06/06/16 20:26; Admin Dose 25 MG; Start 06/02/16 at 18:30 Dexamethasone 10 mg 10 mg Q4H PRN IV ALLERGIC REACTION; Start 06/02/16 at 18: 30 Ondansetron HCl/ Sodium Chloride (Zofran Inj/NS) 54 ml @ 216 mls/hr Q6H PRN IV NAUSEA AND/OR VOMITING Last administered on 07/14/16 19:45; Admin Dose 216 MLS/HR; Start 06/02/16 at 18:30 Ondansetron HCl (Zofran Inj) 4 mg Q6H PRN IV NAUSEA AND/OR VOMITING Last administered on 07/15/16 19:38; Admin Dose 4 MG; Start 06/03/16 at 17:00 Acetaminophen (Tylenol Tab) 650 mg Q6H PRN PO PAIN LEVEL 1-3 OR FEVER Last administered on 07/12/16 16:42; Admin Dose 650 MG; Start 06/03/16 at 17:00 Acetaminophen (Tylenol Supp) 650 mg Q6H PRN [place] PAIN LEVEL 1-3 OR FEVER Last administered on 07/15/16 19:50; Admin Dose 650 MG; Start 06/03/16 at 17:00 Docusate Sodium (Colace) 100 mg Q12H PRN PO CONSTIPATION Last administered on 11:02; Admin Dose 100 MG; Start 06/03/16 at 17:00 Magnesium Hydroxide (Milk Of Mag) 30 ml DAILY PRN PO CONSTIPATION Last administered on 06/20/16 06:13; Admin Dose 30 ML; Start 06/03/16 at 17:00 Bisacodyl (Dulcolax) 5 mg DAILY PRN PO CONSTIPATION Last administered on 11:02; Admin Dose 5 MG; Start 06/03/16 at 17:00 Bisacodyl (Dulcolax Supp) 10 mg DAILY PRN [place] CONSTIPATION Last administered on 06/21/16 05:18; Admin Dose 10 MG; Start 06/03/16 at 17:00 Sodium Biphosphate/ Sodium Phosphate (Fleet Enema) 133 ml DAILY PRN [place] CONSTIPATION; Start 06/03/16 at 17:00 Enoxaparin Sodium (Lovenox) 30 mg DAILY SC Last administered on 06/12/16at 08: 27; Admin Dose 30 MG; Start 06/04/16 at 09:00; Status Future Hold Allopurinol (Zyloprim) 300 mg DAILY PO Last administered on 07/17/16 09:21; Admin Dose 300 MG; Start 06/04/16 at 09:00 Eye Lubricant (Artificial Tears Oph) 2 drop QID BOTH EYES Last administered on 07/17/16 09:23; Admin Dose 2 DROP; Start 06/03/16 at 21:00 Eye Lubricant (Akwa Oint) 1 applic DAILY BOTH EYES Last administered on 09:23; Admin Dose 1 APPLIC; Start 06/04/16 at 09:00 Gabapentin (Neurontin) 200 mg TID PO Last administered on 07/17/16 09:22; Admin Dose 200 MG; Start 06/03/16 at 21:00 Levothyroxine Sodium (Synthroid) 100 mcg DAILY@06 PO Last administered on 09:21; Admin Dose 100 MCG; Start 06/04/16 at 06:00 Pantoprazole (Protonix Iv) 40 mg DAILY@06 IV Last administered on 07/17/16 06: 18; Admin Dose 40 MG; Start 06/09/16 at 06:00 Lorazepam (Ativan) 1 mg Q6H PRN IV AGITATION/ANXIETY Last administered on 22:29; Admin Dose 1 MG; Start 06/08/16 at 18:00 Acetaminophen/ Hydrocodone Bitart ([place] (5/325)) 1 tab Q6H PRN PO PAIN Last administered on 06/11/16at 17:38; Admin Dose 1 TAB; Start 06/11/16 at 17:30 Collagenase (Santyl) 1 applic DAILY TOP Last administered on 07/17/16 09:24; Admin Dose 1 APPLIC; Start 06/12/16 at 09:00 Nystatin (Nystatin Susp) 5 ml QID PO Last administered on 07/17/16 09:22; Admin Dose 5 ML; Start 06/18/16 at 17:00 Scopolamine (Transderm-Scop) 1 patch Q72H TRANSDERM Last administered on 21:42; Admin Dose 1 PATCH; Start 06/22/16 at 21:00 Fluconazole 100 mg 100 mg DAILY PO Last administered on 07/17/16 09:21; Admin Dose 100 MG; Start 06/28/16 at 09:00 Sodium Chloride (NS) 1,000 ml @ 100 mls/hr Q10H IV Last administered on 11:25; Admin Dose 100 MLS/HR; Start 07/01/16 at 19:00 Lactobacillus Acidoph/Bulgaricus (Floranex) 1 tab BID PO Last administered on 09:22; Admin Dose 1 TAB; Start 07/01/16 at 21:00 Potassium Chloride (Klor-Con 20) 20 meq BID PO Last administered on 07/17/16 09:21; Admin Dose 20 MEQ; Start 07/03/16 at 21:00 Ibuprofen 600 mg 600 mg TID PRN PO FEVER Last administered on 07/04/16 01:29; Admin Dose 600 MG; Start 07/03/16 at 19:30 Vancomycin HCl 1.25 gm/Sodium Chloride 250 ml @ 83.333 mls/ hr Q12H IVPB Last administered on 07/17/16 11:46; Admin Dose 83.333 MLS/HR; Start 07/13/16 at 23: 00 Filgrastim/ Dextrose (Neupogen/D5W) 51.6 ml @ 103.2 mls/ hr DAILY@17 IVPB Last administered on 07/16/16 18:07; Admin Dose 103.2 MLS/HR; Start 07/14/16 at 17:00 Metoclopramide HCl (Reglan) 10 mg Q6H PRN IV NAUSEA Last administered on 09:43; Admin Dose 10 MG; Start 07/16/16 at 08:30 CHANDRIKA MERLOS M.D. Jul 17, 2016 12:42
--- NOTE | 2016-07-17 13:39 | PN ---
DATE: 07/17/2016 SUBJECTIVE: The patient is sleeping and had been very anxious yesterday status post Ativan with poo r p.o. intake. No vomiting, no diarrhea, no dysuria. No fevers. LABORATORY DATA: WBC today 3.6 with platelets 11, neutrophils 68, bands 17, lymphs 5. BUN 4, creat inine 0.34. ANTIMICROBIALS: 1. Vancomycin IV. 2. Fluconazole. 3. Oral nystatin. 4. Diflucan. 5. Acyclovir. INDWELLINGS: Trach, PICC line. PHYSICAL EXAMINATION: GENERAL: This is an ill-appearing, middle-aged woman who is sleeping and in no distress. HEENT: Head atraumatic, normocephalic. Sclerae anicteric. Buccal mucosa dry. NECK: Supple. Tracheostomy present. CHEST: Rise symmetrical. Breath sounds clear, diminished to bases. HEART: S1, S2. ABDOMEN: Soft. Bowel sounds present. EXTREMITIES: Without cyanosis. ASSESSMENT: 1. Burkitt's lymphoma, on chemotherapy. 2. Status post acute methicillin-resistant Staphylococcus aureus tracheobronchitis. 3. Respiratory failure, status post tracheostomy secondary to tracheal mass. 4. Status post Pseudomonas aeruginosa urinary tract infection. 5. Pancytopenia, neutropenia, patient remains on Neupogen. PLAN: Remains stable, no fevers. We are going to repeat sputum cultures. Continue her on current antimicrobials. Follow oncology recommendations. Dictated By: RODRÍGUEZ ERAZO COTTON EXPERT for JILLIAN CUEVAS/YUNI Conf#: [id number] DID#: [id number]
--- NOTE | 2016-07-17 13:58 | PN ---
Date/Time of Note Date/Time of Note DATE: 07/17/16 TIME: 13:57 Assessment/Plan VTE Prophylaxis VTE Prophylaxis Intervention: other Lines/Catheters IV Catheter Type (from Nrs): PICC Line Central line still needed: Yes Urinary Cath still in place: No Assessment/Plan Chief Complaint/Hosp Course IMPRESSION: The patient has Burkitt's lymphoma HX tracheostomy, status post thyroid mass, pancytopenia, abnormal liver function test. better SEPSIS better gallstone ABN LFT better anemia post chemo uti pancytopenia better PLAN per oncology LABS chemo per id Problems: Subjective 24 Hr Interval Summary Respiratory: no complaints Cardiovascular: no complaints Exam/Review of Systems Vital Signs Vitals Vital Signs Date Time Temp Pulse Resp B/P Pulse Ox O2 Delivery O2 Flow Rate FiO2 07/17/16 08:24 5.0 28 07/17/16 08:24 94 16 96 Aerosol T Tube 07/17/16 07:40 99.3 113/61 Intake and Output 07/16/16 07/16/16 07/17/16 15:00 23:00 07:00 Intake Total 1200 ml 1170 ml Output Total 800 ml Balance 1200 ml 370 ml Exam Neck: supple Respiratory: clear to auscultation Cardiovascular: regular rate and rhythm Gastrointestinal: soft Musculoskeletal: nl extremities to inspection Extremities: normal pulses Results Result Diagram: 07/17/1643407/17/16 043 Results 24 hrs Laboratory Tests Test 07/17/16 04:35 Alanine Aminotransferase (ALT/SGPT) 58 Albumin 2.8 L Albumin/Globulin Ratio 1.21 Alkaline Phosphatase 121 Anion Gap 11 Aspartate Amino Transf (AST/SGOT) 38 Band Neutrophils % 17.0 H Basophils # Basophils % Blood Morphology Comment Blood Urea Nitrogen 4 L Calcium Level 8.2 L Carbon Dioxide Level 25 Chloride Level 108 Creatinine 0.34 L Differential Comment MANUAL DIFF Direct Bilirubin 0.00 Eosinophils # Eosinophils % Globulin 2.30 Glucose Level 81 Hematocrit 25.7 L Hemoglobin 9.2 L Indirect Bilirubin 0.6 Lactate Dehydrogenase 685 H Lymphocytes # 0.2 L Lymphocytes % 5.0 L Mean Corpuscular Hemoglobin 30.3 Mean Corpuscular Hemoglobin Concent 35.7 Mean Corpuscular Volume 84.7 Mean Platelet Volume 7.5 Monocytes # 0.4 Monocytes % 10.0 Neutrophils # 2.4 Neutrophils % 68.0 Nucleated Red Blood Cells # Nucleated Red Blood Cells % Platelet Count 11 #*L Platelet Estimate PLT APPEAR DECREASED Potassium Level 3.5 Red Blood Count 3.04 L Red Cell Distribution Width 14.1 Sodium Level 140 Total Bilirubin 0.6 Total Protein 5.1 L White Blood Count 3.6 #L Medications Medications Current Medications Acyclovir (Zovirax) 400 mg BID PO Last administered on 07/17/16 09:21; Admin Dose 400 MG; Start 06/02/16 at 14:30 Diphenhydramine HCl (Benadryl) 25 mg Q4H PRN IV ALLERGIC REACTION Last administered on 06/06/16 20:26; Admin Dose 25 MG; Start 06/02/16 at 18:30 Dexamethasone 10 mg 10 mg Q4H PRN IV ALLERGIC REACTION; Start 06/02/16 at 18: 30 Ondansetron HCl/ Sodium Chloride (Zofran Inj/NS) 54 ml @ 216 mls/hr Q6H PRN IV NAUSEA AND/OR VOMITING Last administered on 07/14/16 19:45; Admin Dose 216 MLS/HR; Start 06/02/16 at 18:30 Ondansetron HCl (Zofran Inj) 4 mg Q6H PRN IV NAUSEA AND/OR VOMITING Last administered on 07/15/16 19:38; Admin Dose 4 MG; Start 06/03/16 at 17:00 Acetaminophen (Tylenol Tab) 650 mg Q6H PRN PO PAIN LEVEL 1-3 OR FEVER Last administered on 07/12/16 16:42; Admin Dose 650 MG; Start 06/03/16 at 17:00 Acetaminophen (Tylenol Supp) 650 mg Q6H PRN [place] PAIN LEVEL 1-3 OR FEVER Last administered on 07/15/16 19:50; Admin Dose 650 MG; Start 06/03/16 at 17:00 Docusate Sodium (Colace) 100 mg Q12H PRN PO CONSTIPATION Last administered on 11:02; Admin Dose 100 MG; Start 06/03/16 at 17:00 Magnesium Hydroxide (Milk Of Mag) 30 ml DAILY PRN PO CONSTIPATION Last administered on 06/20/16 06:13; Admin Dose 30 ML; Start 06/03/16 at 17:00 Bisacodyl (Dulcolax) 5 mg DAILY PRN PO CONSTIPATION Last administered on 11:02; Admin Dose 5 MG; Start 06/03/16 at 17:00 Bisacodyl (Dulcolax Supp) 10 mg DAILY PRN [place]STIPATION Last administered on 06/21/16at 05:18; Admin Dose 10 MG; Start 06/03/16 at 17:00 Sodium Biphosphate/ Sodium Phosphate (Fleet Enema) 133 ml DAILY PRN [place] CONSTIPATION; Start 06/03/16 at 17:00 Enoxaparin Sodium (Lovenox) 30 mg DAILY SC Last administered on 06/12/16at 08: 27; Admin Dose 30 MG; Start 06/04/16 at 09:00; Status Future Hold Allopurinol (Zyloprim) 300 mg DAILY PO Last administered on 07/17/16 09:21; Admin Dose 300 MG; Start 06/04/16 at 09:00 Eye Lubricant (Artificial Tears Oph) 2 drop QID BOTH EYES Last administered on 07/17/16 09:23; Admin Dose 2 DROP; Start 06/03/16 at 21:00 Eye Lubricant (Akwa Oint) 1 applic DAILY BOTH EYES Last administered on 09:23; Admin Dose 1 APPLIC; Start 06/04/16 at 09:00 Gabapentin (Neurontin) 200 mg TID PO Last administered on 07/17/16 09:22; Admin Dose 200 MG; Start 06/03/16 at 21:00 Levothyroxine Sodium (Synthroid) 100 mcg DAILY@06 PO Last administered on 09:21; Admin Dose 100 MCG; Start 06/04/16 at 06:00 Pantoprazole (Protonix Iv) 40 mg DAILY@06 IV Last administered on 07/17/16 06: 18; Admin Dose 40 MG; Start 06/09/16 at 06:00 Lorazepam (Ativan) 1 mg Q6H PRN IV AGITATION/ANXIETY Last administered on 22:29; Admin Dose 1 MG; Start 06/08/16 at 18:00 Acetaminophen/ Hydrocodone Bitart ([place] (5/325)) 1 tab Q6H PRN PO PAIN Last administered on 06/11/16at 17:38; Admin Dose 1 TAB; Start 06/11/16 at 17:30 Collagenase (Santyl) 1 applic DAILY TOP Last administered on 07/17/16 09:24; Admin Dose 1 APPLIC; Start 06/12/16 at 09:00 Nystatin (Nystatin Susp) 5 ml QID PO Last administered on 07/17/16 09:22; Admin Dose 5 ML; Start 06/18/16 at 17:00 Scopolamine (Transderm-Scop) 1 patch Q72H TRANSDERM Last administered on 21:42; Admin Dose 1 PATCH; Start 06/22/16 at 21:00 Fluconazole 100 mg 100 mg DAILY PO Last administered on 07/17/16 09:21; Admin Dose 100 MG; Start 06/28/16 at 09:00 Sodium Chloride (NS) 1,000 ml @ 100 mls/hr Q10H IV Last administered on 11:25; Admin Dose 100 MLS/HR; Start 07/01/16 at 19:00 Lactobacillus Acidoph/Bulgaricus (Floranex) 1 tab BID PO Last administered on 09:22; Admin Dose 1 TAB; Start 07/01/16 at 21:00 Potassium Chloride (Klor-Con 20) 20 meq BID PO Last administered on 07/17/16 09:21; Admin Dose 20 MEQ; Start 07/03/16 at 21:00 Ibuprofen 600 mg 600 mg TID PRN PO FEVER Last administered on 07/04/16 01:29; Admin Dose 600 MG; Start 07/03/16 at 19:30 Vancomycin HCl 1.25 gm/Sodium Chloride 250 ml @ 83.333 mls/ hr Q12H IVPB Last administered on 07/17/16 11:46; Admin Dose 83.333 MLS/HR; Start 07/13/16 at 23: 00 Filgrastim/ Dextrose (Neupogen/D5W) 51.6 ml @ 103.2 mls/ hr DAILY@17 IVPB Last administered on 07/16/16 18:07; Admin Dose 103.2 MLS/HR; Start 07/14/16 at 17:00 Metoclopramide HCl (Reglan) 10 mg Q6H PRN IV NAUSEA Last administered on 09:43; Admin Dose 10 MG; Start 07/16/16 at 08:30 GUERLINE SULLIVAN MD Jul 17, 2016 13:58
[2016-07-17] MEDS: FILGRASTIM IVPB SCH (17:29)
[2016-07-17] MEDS: DEXTROSE 5% IVPB SCH (17:29)
[2016-07-17 20:31] VITALS: BP 102/71; RESP 18
[2016-07-17] MEDS: LORAZEPAM 2 MG INJ IV PRN (23:15)
[2016-07-18] MEDS: SOD CHLORIDE 0.9% 1,000 ML IV SCH ×3 (01:00→21:00)
[2016-07-18] MEDS: ALBUTEROL/IPRATROPIUM (NEB) 3 ML AMP HHN SCH ×4 (01:32→19:20)
[2016-07-18 05:49] LABS: HEMOGLOBIN 8.9 g/dl (12.0-16.0); MEAN CORPUSCULAR HGB CONC 35.7 g/dl (32.0-37.0); MEAN CORPUSCULAR VOLUME 83.9 fl (82.0-101.0); RED BLOOD COUNT 2.98 10^6/ul (4.20-5.40); RED CELL DISTRIBUTION WIDTH 14.5 % (11.5-14.5); UNCORRECTED WBC 5.4 10^3/ul (4.8-10.8); WHITE BLOOD COUNT 5.4 10^3/ul (4.8-10.8)
[2016-07-18 06:07] LABS: CONDITION 1; LH ANALYZER COMMENTS 1; POTASSIUM 3.4 mmol/L (3.5-5.1); SUSPECT 1
[2016-07-18 06:08] LABS: PLATELET COUNT 10 10^3/UL (140-440)
[2016-07-18 06:09] LABS: ALBUMIN/GLOBULIN RATIO 1.27; BILIRUBIN,INDIRECT 0.4 mg/dl (0-1.1); BILIRUBIN,TOTAL 0.4 mg/dl (0.2-1.3); CREATININE 0.34 mg/dl (0.44-1.00)
[2016-07-18 06:10] LABS: CALCIUM 8.4 mg/dl (8.4-10.2)
[2016-07-18 06:20] LABS: ALBUMIN 2.8 g/dl (3.3-4.9)
[2016-07-18] MEDS: PANTOPRAZOLE 40 MG INJ IV SCH (06:31)
[2016-07-18] MEDS: LEVOTHYROXINE 100 MCG TAB PO SCH ×2 (06:32→09:46)
[2016-07-18 08:41] VITALS: BP 114/67; RESP 18
[2016-07-18] MEDS: ACYCLOVIR 400 MG TAB PO SCH ×2 (09:46→21:36)
[2016-07-18] MEDS: GABAPENTIN 100 MG CAP PO SCH ×3 (09:46→21:36)
[2016-07-18] MEDS: ALLOPURINOL 300 MG TAB PO SCH (09:46)
[2016-07-18] MEDS: LACTOBACILLUS CHEW TAB PO SCH ×2 (09:46→21:36)
[2016-07-18] MEDS: ARTIFICIAL TEARS 15 ML OPH BOTH EYES SCH ×4 (09:46→21:36)
[2016-07-18] MEDS: FLUCONAZOLE 100 MG TAB PO SCH (09:46)
[2016-07-18] MEDS: OCULAR LUBRICANT 3.5 GM OPH OINT BOTH EYES SCH (09:46)
[2016-07-18] MEDS: NYSTATIN SUSP 5 ML CUP PO SCH ×4 (09:47→21:36)
[2016-07-18] MEDS: COLLAGENASE 30 GM TUBE TOP SCH (09:47)
[2016-07-18] MEDS: POTASSIUM CHLORIDE 20 MEQ POWDER FOR ORAL SOLN PO SCH ×2 (09:53→21:00)
[2016-07-18] MEDS: VANCOMYCIN 1.25 GM in SOD CHLORIDE 0.9% 250 ML IVPB SCH (11:18)
--- NOTE | 2016-07-18 13:01 | PN ---
DATE: 07/18/2016 INFECTIOUS DISEASE PROGRESS NOTE SUBJECTIVE: The patient is awake. Complaining of nausea. She is eating yogurt, in no distress. N o fevers overnight. WBC today 5.4, platelets 10, BUN 5, creatinine 0.34. INDWELLINGS: Trach, PICC line. PHYSICAL EXAMINATION: GENERAL: This is a chronically ill-appearing, middle-aged [place] woman, who is alert, in no distr ess. HEENT: Head atraumatic, normocephalic. Sclerae are anicteric. Buccal mucosa pink. NECK: Supple, trachea midline. CHEST: Chest rise is symmetrical. Breath sounds clear to auscultation. HEART: S1, S2. ABDOMEN: Soft. Bowel tones present. EXTREMITIES: Without cyanosis. ASSESSMENT: 1. Burkitt's lymphoma, chemotherapy per oncology. 2. Significant thrombocytopenia. 3. Status post neutropenic fevers, neutropenia resolved. The patient remains on Neupogen. 4. Status post methicillin-resistant Staphylococcus aureus tracheobronchitis. 5. Status post methicillin-resistant Staphylococcus aureus nares colonization. 6. Status post Pseudomonas aeruginosa urinary tract infection. Repeat urine culture is negative. T he patient was treated with gentamicin. PLAN: The patient remains stable. White blood cell count increased. We are going to discontinue v ancomycin, continue her on Diflucan and acyclovir. Panculture p.r.n. and management as per oncology and primary team. Dictated By: RODRÍGUEZ ERAZO SUPERVISOR [employer]CTION for JILLIAN CUEVAS/YUNI Conf#: [id number] DID#: [id number]
[2016-07-18 13:35] LABS: LYMPHOCYTES # 0.1 10^3/ul (0.8-2.9); MONOCYTE # 0.2 10^3/ul (0.3-0.9); NEUTROPHIL # 4.3 10^3/ul (1.6-7.5)
[2016-07-18 13:36] LABS: PLATELET ESTIMATE PLT APPEAR DECREASED
--- NOTE | 2016-07-18 14:02 | CONS ---
Date/Time of Note Date/Time of Note DATE: 07/18/16 TIME: 14:00 Assessment/Plan Assessment/Plan Chief Complaint/Hosp Course 56 yo female with massive neck mass causing tracheal compression and airway compromise s/p tracheostomy placement. 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 Pt was given cycle 1A and 1B of R HyperCVAD but had only a partial response to therapy and severe side effects. We have thus changed her chemotherapy regimen. She is now s/p cycle 1A of R-CODOX-M and has now completed her chemotherapy. Most recent CT neck showed resolution of the mass. . She has since started Cycle 1B and is receiving R-IVAC. She is currently pancytopenic and transfusion dependant Problems: Additional Assessment/Plan # Burkitt's lymphoma - currently day 14 cycle 1B R -IVAC. chemotherapy regimen is as follows Part 2: R-IVAC Rituximab (Rituxan) 375 mg/m2 IV once on day 1 Ifosfamide (Ifex) 1500 mg/m2 IV over 2 hours once per day on days 1 to 5 Etoposide (Vepesid) 60 mg/m2 IV over 1 hour once per day on days 1 to 5 Cytarabine (Cytosar) 2 g/m2 IV over 3 hours Q12H on days 1 & 2 (4 doses total) [place] (Mesnex) 300 mg/m2 (mixed with Ifosfamide (Ifex)) , then 300mg/m2 IV every four hours x 2, on days 1 to 5 # Neutropenic fevers -appreciate ID recs. continue meropenem and vancomycin. ANC rising appropriately -f/u blood and urine cultures -pt continues on Neupogen # Supportive Care and prophylactic meds -Started Acyclovir 400mg BID -fluconazole 100mg q day -Neupogen 300mcg q day day after chemotherapy is completed -Zofran ordered prn nausea #Expected Pancytopenia -keep Hg> 8 and platelets > 10. . patient remains TRANSFUSION DEPENDANT.will likely need platelet transfusion tomorrow # Elevated AST and ALT, likely related to methotrexate. 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 all steroids should be discontinued for now unless they are part of the chemotherapy regimen -continue to work with physical therapy. 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 -uric acid level ok Approximately 40 min were spent at patient's bedside and in coordination of her care Consultation Date/Type/Reason Admit Date/Time Jun 02, 2016 at 15:10 Initial Consult Date 06/02/16 Type of Consultation: Hematology Reason for Consultation Burkitt's lymphoma Referring Provider: TELLY SOLANO MD 24 HR Interval Summary Free Text/Dictation no acute overnight events. pt's nausea has improved Exam/Review of Systems Vital Signs Vitals Vital Signs Date Time Temp Pulse Resp B/P Pulse Ox O2 Delivery O2 Flow Rate FiO2 07/18/16 13:08 94 16 96 Aerosol Mask 28 07/18/16 08:41 98.0 114/67 07/18/16 08:24 5.0 Intake and Output 07/17/16 07/17/16 07/18/16 15:00 23:00 07:00 Intake Total 903 ml 390 ml Output Total 600 ml Balance 903 ml -210 ml Exam Constitutional: alert, oriented Psych: no complaints Head: atraumatic, normocephalic Eyes: nl conjunctiva ENMT: nl external ears & nose Neck: other (trach in place), supple Respiratory: clear to auscultation Cardiovascular: nl pulses, regular rate and rhythm Gastrointestinal: soft Musculoskeletal: nl extremities to inspection, nl gait and stance Extremities: normal pulses Results Result Diagram: 07/18/1641907/18/16 042 Results 24 hrs Laboratory Tests Test 07/18/16 04:20 Alanine Aminotransferase (ALT/SGPT) 61 Albumin 2.8 L Albumin/Globulin Ratio 1.27 Alkaline Phosphatase 120 Anion Gap 13 Aspartate Amino Transf (AST/SGOT) 37 Band Neutrophils % 14.0 H Blood Morphology Comment Blood Urea Nitrogen 5 L Calcium Level 8.4 Carbon Dioxide Level 24 Chloride Level 107 Creatinine 0.34 L Direct Bilirubin 0.00 Globulin 2.20 Glucose Level 85 Hematocrit 25.0 L Hemoglobin 8.9 L Indirect Bilirubin 0.4 Lactate Dehydrogenase 634 H Lymphocytes # 0.1 L Lymphocytes % 2.0 L Mean Corpuscular Hemoglobin 30.0 Mean Corpuscular Hemoglobin Concent 35.7 Mean Corpuscular Volume 83.9 Mean Platelet Volume 8.0 Monocytes # 0.2 L Monocytes % 4.0 Neutrophils # 4.3 Neutrophils % 79.0 H Platelet Count 10 *L Platelet Estimate PLT APPEAR DECREASED Potassium Level 3.4 L Promyelocytes # 0.1 Promyelocytes % 1.0 H Red Blood Count 2.98 L Red Cell Distribution Width 14.5 Sodium Level 141 Total Bilirubin 0.4 Total Protein 5.0 L White Blood Count 5.4 # Medications Medications Current Medications Acyclovir (Zovirax) 400 mg BID PO Last administered on 07/18/16 09:46; Admin Dose 400 MG; Start 06/02/16 at 14:30 Diphenhydramine HCl (Benadryl) 25 mg Q4H PRN IV ALLERGIC REACTION Last administered on 06/06/16at 20:26; Admin Dose 25 MG; Start 06/02/16 at 18:30 Dexamethasone 10 mg 10 mg Q4H PRN IV ALLERGIC REACTION; Start 06/02/16 at 18: 30 Ondansetron HCl/ Sodium Chloride (Zofran Inj/NS) 54 ml @ 216 mls/hr Q6H PRN IV NAUSEA AND/OR VOMITING Last administered on 07/14/16 19:45; Admin Dose 216 MLS/HR; Start 06/02/16 at 18:30 Ondansetron HCl (Zofran Inj) 4 mg Q6H PRN IV NAUSEA AND/OR VOMITING Last administered on 07/15/16 19:38; Admin Dose 4 MG; Start 06/03/16 at 17:00 Acetaminophen (Tylenol Tab) 650 mg Q6H PRN PO PAIN LEVEL 1-3 OR FEVER Last administered on 07/12/16 16:42; Admin Dose 650 MG; Start 06/03/16 at 17:00 Acetaminophen (Tylenol Supp) 650 mg Q6H PRN [place] PAIN LEVEL 1-3 OR FEVER Last administered on 07/15/16 19:50; Admin Dose 650 MG; Start 06/03/16 at 17:00 Docusate Sodium (Colace) 100 mg Q12H PRN PO CONSTIPATION Last administered on 11:02; Admin Dose 100 MG; Start 06/03/16 at 17:00 Magnesium Hydroxide (Milk Of Mag) 30 ml DAILY PRN PO CONSTIPATION Last administered on 06/20/16 06:13; Admin Dose 30 ML; Start 06/03/16 at 17:00 Bisacodyl (Dulcolax) 5 mg DAILY PRN PO CONSTIPATION Last administered on 11:02; Admin Dose 5 MG; Start 06/03/16 at 17:00 Bisacodyl (Dulcolax Supp) 10 mg DAILY PRN [place] CONSTIPATION Last administered on 06/21/16 05:18; Admin Dose 10 MG; Start 06/03/16 at 17:00 Sodium Biphosphate/ Sodium Phosphate (Fleet Enema) 133 ml DAILY PRN [place] CONSTIPATION; Start 06/03/16 at 17:00 Enoxaparin Sodium (Lovenox) 30 mg DAILY SC Last administered on 06/12/16at 08: 27; Admin Dose 30 MG; Start 06/04/16 at 09:00; Status Future Hold Allopurinol (Zyloprim) 300 mg DAILY PO Last administered on 07/18/16 09:46; Admin Dose 300 MG; Start 06/04/16 at 09:00 Eye Lubricant (Artificial Tears Oph) 2 drop QID BOTH EYES Last administered on 07/18/16 13:02; Admin Dose 2 DROP; Start 06/03/16 at 21:00 Eye Lubricant (Akwa Oint) 1 applic DAILY BOTH EYES Last administered on 09:46; Admin Dose 1 APPLIC; Start 06/04/16 at 09:00 Gabapentin (Neurontin) 200 mg TID PO Last administered on 07/18/16 13:01; Admin Dose 200 MG; Start 06/03/16 at 21:00 Levothyroxine Sodium (Synthroid) 100 mcg DAILY@06 PO Last administered on 09:46; Admin Dose 100 MCG; Start 06/04/16 at 06:00 Pantoprazole (Protonix Iv) 40 mg DAILY@06 IV Last administered on 07/18/16 06: 31; Admin Dose 40 MG; Start 06/09/16 at 06:00 Lorazepam (Ativan) 1 mg Q6H PRN IV AGITATION/ANXIETY Last administered on 23:15; Admin Dose 1 MG; Start 06/08/16 at 18:00 Acetaminophen/ Hydrocodone Bitart ([place] (5/325)) 1 tab Q6H PRN PO PAIN Last administered on 06/11/16at 17:38; Admin Dose 1 TAB; Start 06/11/16 at 17:30 Collagenase (Santyl) 1 applic DAILY TOP Last administered on 07/18/16 09:47; Admin Dose 1 APPLIC; Start 06/12/16 at 09:00 Nystatin (Nystatin Susp) 5 ml QID PO Last administered on 07/18/16 13:01; Admin Dose 5 ML; Start 06/18/16 at 17:00 Scopolamine (Transderm-Scop) 1 patch Q72H TRANSDERM Last administered on 21:42; Admin Dose 1 PATCH; Start 06/22/16 at 21:00 Fluconazole 100 mg 100 mg DAILY PO Last administered on 07/18/16 09:46; Admin Dose 100 MG; Start 06/28/16 at 09:00 Sodium Chloride (NS) 1,000 ml @ 100 mls/hr Q10H IV Last administered on 11:25; Admin Dose 100 MLS/HR; Start 07/01/16 at 19:00 Lactobacillus Acidoph/Bulgaricus (Floranex) 1 tab BID PO Last administered on 09:46; Admin Dose 1 TAB; Start 07/01/16 at 21:00 Ibuprofen 600 mg 600 mg TID PRN PO FEVER Last administered on 07/04/16 01:29; Admin Dose 600 MG; Start 07/03/16 at 19:30 Filgrastim/ Dextrose (Neupogen/D5W) 51.6 ml @ 103.2 mls/ hr DAILY@17 IVPB Last administered on 07/17/16 17:29; Admin Dose 103.2 MLS/HR; Start 07/14/16 at 17:00 Metoclopramide HCl (Reglan) 10 mg Q6H PRN IV NAUSEA Last administered on 23:02; Admin Dose 10 MG; Start 07/16/16 at 08:30 Potassium Chloride (Potassium Chloride Pwd/Soln) 20 meq BID PO Last administered on 07/18/16 09:53; Admin Dose 20 MEQ; Start 07/18/16 at 09:00 CHANDRIKA MERLOS M.D. Jul 18, 2016 14:02
--- NOTE | 2016-07-18 16:32 | PN ---
Date/Time of Note Date/Time of Note DATE: 07/18/16 TIME: 16:30 Assessment/Plan VTE Prophylaxis VTE Prophylaxis Intervention: other Lines/Catheters IV Catheter Type (from Nrsg): PICC Line Central line still needed: Yes Urinary Cath still in place: No Assessment/Plan Chief Complaint/Hosp Course IMPRESSION: The patient has Burkitt's lymphoma HX tracheostomy, status post thyroid mass, pancytopenia, abnormal liver function test. better SEPSIS better gallstone ABN LFT better anemia post chemo uti pancytopenia better hypokalemia PLAN per oncology LABS chemo 2 nd round per id kcl Problems: Subjective 24 Hr Interval Summary Cardiovascular: no complaints Gastrointestinal: nausea (+) Exam/Review of Systems Vital Signs Vitals Vital Signs Date Time Temp Pulse Resp B/P Pulse Ox O2 Delivery O2 Flow Rate FiO2 07/18/16 16:03 5.0 28 07/18/16 13:08 94 16 96 Aerosol Mask 07/18/16 08:41 98.0 114/67 Intake and Output 07/17/16 07/17/16 07/18/16 15:00 23:00 07:00 Intake Total 903 ml 390 ml Output Total 600 ml Balance 903 ml -210 ml Exam Respiratory: clear to auscultation Cardiovascular: regular rate and rhythm Gastrointestinal: soft Musculoskeletal: nl extremities to inspection Extremities: normal pulses Results Result Diagram: 07/18/1641907/18/16 042 Results 24 hrs Laboratory Tests Test 07/18/16 04:20 Alanine Aminotransferase (ALT/SGPT) 61 Albumin 2.8 L Albumin/Globulin Ratio 1.27 Alkaline Phosphatase 120 Anion Gap 13 Aspartate Amino Transf (AST/SGOT) 37 Band Neutrophils % 14.0 H Blood Morphology Comment Blood Urea Nitrogen 5 L Calcium Level 8.4 Carbon Dioxide Level 24 Chloride Level 107 Creatinine 0.34 L Direct Bilirubin 0.00 Globulin 2.20 Glucose Level 85 Hematocrit 25.0 L Hemoglobin 8.9 L Indirect Bilirubin 0.4 Lactate Dehydrogenase 634 H Lymphocytes # 0.1 L Lymphocytes % 2.0 L Mean Corpuscular Hemoglobin 30.0 Mean Corpuscular Hemoglobin Concent 35.7 Mean Corpuscular Volume 83.9 Mean Platelet Volume 8.0 Monocytes # 0.2 L Monocytes % 4.0 Neutrophils # 4.3 Neutrophils % 79.0 H Platelet Count 10 *L Platelet Estimate PLT APPEAR DECREASED Potassium Level 3.4 L Promyelocytes # 0.1 Promyelocytes % 1.0 H Red Blood Count 2.98 L Red Cell Distribution Width 14.5 Sodium Level 141 Total Bilirubin 0.4 Total Protein 5.0 L White Blood Count 5.4 # Medications Medications Current Medications Acyclovir (Zovirax) 400 mg BID PO Last administered on 07/18/16 09:46; Admin Dose 400 MG; Start 06/02/16 at 14:30 Diphenhydramine HCl (Benadryl) 25 mg Q4H PRN IV ALLERGIC REACTION Last administered on 06/06/16 20:26; Admin Dose 25 MG; Start 06/02/16 at 18:30 Dexamethasone 10 mg 10 mg Q4H PRN IV ALLERGIC REACTION; Start 06/02/16 at 18: 30 Ondansetron HCl/ Sodium Chloride (Zofran Inj/NS) 54 ml @ 216 mls/hr Q6H PRN IV NAUSEA AND/OR VOMITING Last administered on 07/14/16 19:45; Admin Dose 216 MLS/HR; Start 06/02/16 at 18:30 Ondansetron HCl (Zofran Inj) 4 mg Q6H PRN IV NAUSEA AND/OR VOMITING Last administered on 07/15/16 19:38; Admin Dose 4 MG; Start 06/03/16 at 17:00 Acetaminophen (Tylenol Tab) 650 mg Q6H PRN PO PAIN LEVEL 1-3 OR FEVER Last administered on 07/12/16 16:42; Admin Dose 650 MG; Start 06/03/16 at 17:00 Acetaminophen (Tylenol Supp) 650 mg Q6H PRN [place] PAIN LEVEL 1-3 OR FEVER Last administered on 07/15/16 19:50; Admin Dose 650 MG; Start 06/03/16 at 17:00 Docusate Sodium (Colace) 100 mg Q12H PRN PO CONSTIPATION Last administered on 11:02; Admin Dose 100 MG; Start 06/03/16 at 17:00 Magnesium Hydroxide (Milk Of Mag) 30 ml DAILY PRN PO CONSTIPATION Last administered on 06/20/16 06:13; Admin Dose 30 ML; Start 06/03/16 at 17:00 Bisacodyl (Dulcolax) 5 mg DAILY PRN PO CONSTIPATION Last administered on 11:02; Admin Dose 5 MG; Start 06/03/16 at 17:00 Bisacodyl (Dulcolax Supp) 10 mg DAILY PRN [place] CONSTIPATION Last administered on 06/21/16at 05:18; Admin Dose 10 MG; Start 06/03/16 at 17:00 Sodium Biphosphate/ Sodium Phosphate (Fleet Enema) 133 ml DAILY PRN [place] CONSTIPATION; Start 06/03/16 at 17:00 Enoxaparin Sodium (Lovenox) 30 mg DAILY SC Last administered on 06/12/16 08: 27; Admin Dose 30 MG; Start 06/04/16 at 09:00; Status Future Hold Allopurinol (Zyloprim) 300 mg DAILY PO Last administered on 07/18/16 09:46; Admin Dose 300 MG; Start 06/04/16 at 09:00 Eye Lubricant (Artificial Tears Oph) 2 drop QID BOTH EYES Last administered on 07/18/16 13:02; Admin Dose 2 DROP; Start 06/03/16 at 21:00 Eye Lubricant (Akwa Oint) 1 applic DAILY BOTH EYES Last administered on 09:46; Admin Dose 1 APPLIC; Start 06/04/16 at 09:00 Gabapentin (Neurontin) 200 mg TID PO Last administered on 07/18/16 13:01; Admin Dose 200 MG; Start 06/03/16 at 21:00 Levothyroxine Sodium (Synthroid) 100 mcg DAILY@06 PO Last administered on 09:46; Admin Dose 100 MCG; Start 06/04/16 at 06:00 Pantoprazole (Protonix Iv) 40 mg DAILY@06 IV Last administered on 07/18/16 06: 31; Admin Dose 40 MG; Start 06/09/16 at 06:00 Lorazepam (Ativan) 1 mg Q6H PRN IV AGITATION/ANXIETY Last administered on 23:15; Admin Dose 1 MG; Start 06/08/16 at 18:00 Acetaminophen/ Hydrocodone Bitart ([place] (5/325)) 1 tab Q6H PRN PO PAIN Last administered on 06/11/16at 17:38; Admin Dose 1 TAB; Start 06/11/16 at 17:30 Collagenase (Santyl) 1 applic DAILY TOP Last administered on 07/18/16 09:47; Admin Dose 1 APPLIC; Start 06/12/16 at 09:00 Nystatin (Nystatin Susp) 5 ml QID PO Last administered on 07/18/16 13:01; Admin Dose 5 ML; Start 06/18/16 at 17:00 Scopolamine (Transderm-Scop) 1 patch Q72H TRANSDERM Last administered on 21:42; Admin Dose 1 PATCH; Start 06/22/16 at 21:00 Fluconazole 100 mg 100 mg DAILY PO Last administered on 07/18/16 09:46; Admin Dose 100 MG; Start 06/28/16 at 09:00 Sodium Chloride (NS) 1,000 ml @ 100 mls/hr Q10H IV Last administered on 11:25; Admin Dose 100 MLS/HR; Start 07/01/16 at 19:00 Lactobacillus Acidoph/Bulgaricus (Floranex) 1 tab BID PO Last administered on 09:46; Admin Dose 1 TAB; Start 07/01/16 at 21:00 Ibuprofen 600 mg 600 mg TID PRN PO FEVER Last administered on 07/04/16 01:29; Admin Dose 600 MG; Start 07/03/16 at 19:30 Filgrastim/ Dextrose (Neupogen/D5W) 51.6 ml @ 103.2 mls/ hr DAILY@17 IVPB Last administered on 07/17/16 17:29; Admin Dose 103.2 MLS/HR; Start 07/14/16 at 17:00 Metoclopramide HCl (Reglan) 10 mg Q6H PRN IV NAUSEA Last administered on 23:02; Admin Dose 10 MG; Start 07/16/16 at 08:30 Potassium Chloride (Potassium Chloride Pwd/Soln) 20 meq BID PO Last administered on 07/18/16 09:53; Admin Dose 20 MEQ; Start 07/18/16 at 09:00 GUERLINE SULLIVAN MD Jul 18, 2016 16:32
[2016-07-18] MEDS: DEXTROSE 5% IVPB SCH (17:23)
[2016-07-18] MEDS: FILGRASTIM IVPB SCH (17:23)
[2016-07-18 19:40] VITALS: BP 138/78; RESP 20
[2016-07-18] MEDS: METOCLOPRAMIDE 10 MG INJ IV PRN (19:47)
[2016-07-19] MEDS: ALBUTEROL/IPRATROPIUM (NEB) 3 ML AMP HHN SCH ×4 (01:56→20:02)
[2016-07-19] MEDS: SOD CHLORIDE 0.9% 1,000 ML IV SCH ×2 (05:39→17:00)
[2016-07-19] MEDS: PANTOPRAZOLE 40 MG INJ IV SCH (05:41)
[2016-07-19] MEDS: LEVOTHYROXINE 100 MCG TAB PO SCH (05:44)
[2016-07-19 06:27] LABS: CREATININE 0.33 mg/dl (0.44-1.00)
[2016-07-19 06:28] LABS: CALCIUM 8.5 mg/dl (8.4-10.2)
[2016-07-19 07:47] VITALS: BP 111/64; RESP 16
[2016-07-19] MEDS: ACYCLOVIR 400 MG TAB PO SCH ×2 (08:36→21:27)
[2016-07-19] MEDS: FLUCONAZOLE 100 MG TAB PO SCH (08:36)
[2016-07-19] MEDS: GABAPENTIN 100 MG CAP PO SCH ×3 (08:37→21:28)
[2016-07-19] MEDS: NYSTATIN SUSP 5 ML CUP PO SCH ×4 (08:37→21:27)
[2016-07-19] MEDS: POTASSIUM CHLORIDE 20 MEQ POWDER FOR ORAL SOLN PO SCH ×2 (08:37→21:28)
[2016-07-19] MEDS: ALLOPURINOL 300 MG TAB PO SCH (08:37)
[2016-07-19] MEDS: OCULAR LUBRICANT 3.5 GM OPH OINT BOTH EYES SCH (08:55)
[2016-07-19] MEDS: ARTIFICIAL TEARS 15 ML OPH BOTH EYES SCH ×4 (08:55→21:34)
[2016-07-19] MEDS: COLLAGENASE 30 GM TUBE TOP SCH (08:55)
[2016-07-19] MEDS ORDERED: POTASSIUM CHLORIDE 250 ML IVPB ONE (09:00)
--- NOTE | 2016-07-19 09:14 | PN ---
Date/Time of Note Date/Time of Note DATE: 07/19/16 TIME: 09:13 Assessment/Plan VTE Prophylaxis VTE Prophylaxis Intervention: other Lines/Catheters IV Catheter Type (from Nrsg): PICC Line Central line still needed: Yes Urinary Cath still in place: No Assessment/Plan Chief Complaint/Hosp Course IMPRESSION: The patient has Burkitt's lymphoma HX tracheostomy, status post thyroid mass, pancytopenia, abnormal liver function test. better SEPSIS better gallstone ABN LFT better anemia post chemo uti pancytopenia better hypokalemia PLAN per oncology LABS chemo 2 nd round per id kcl Problems: Subjective 24 Hr Interval Summary Cardiovascular: no complaints Gastrointestinal: no complaints Genitourinary: no complaints Exam/Review of Systems Vital Signs Vitals Vital Signs Date Time Temp Pulse Resp B/P Pulse Ox O2 Delivery O2 Flow Rate FiO2 07/19/16 07:47 98.2 91 16 111/64 07/19/16 01:58 97 Aerosol 5.0 28 Intake and Output 07/18/16 07/18/16 07/19/16 15:00 23:00 07:00 Intake Total 1183.2 ml 80 ml Output Total 1000 ml Balance 1183.2 ml -920 ml Exam Neck: supple Respiratory: clear to auscultation Cardiovascular: regular rate and rhythm Gastrointestinal: soft Results Result Diagram: 07/18/16 0420 07/19/16 0430 Results 24 hrs Laboratory Tests Test 07/19/16 04:30 Anion Gap 11 Blood Urea Nitrogen 2 L Calcium Level 8.5 Carbon Dioxide Level 28 Chloride Level 105 Creatinine 0.33 L Glucose Level 88 Potassium Level 3.0 L Sodium Level 141 Medications Medications Current Medications Acyclovir (Zovirax) 400 mg BID PO Last administered on 07/19/16 08:36; Admin Dose 400 MG; Start 06/02/16 at 14:30 Diphenhydramine HCl (Benadryl) 25 mg Q4H PRN IV ALLERGIC REACTION Last administered on 06/06/16at 20:26; Admin Dose 25 MG; Start 06/02/16 at 18:30 Dexamethasone 10 mg 10 mg Q4H PRN IV ALLERGIC REACTION; Start 06/02/16 at 18: 30 Ondansetron HCl/ Sodium Chloride (Zofran Inj/NS) 54 ml @ 216 mls/hr Q6H PRN IV NAUSEA AND/OR VOMITING Last administered on 07/14/16 19:45; Admin Dose 216 MLS/HR; Start 06/02/16 at 18:30 Ondansetron HCl (Zofran Inj) 4 mg Q6H PRN IV NAUSEA AND/OR VOMITING Last administered on 07/15/16 19:38; Admin Dose 4 MG; Start 06/03/16 at 17:00 Acetaminophen (Tylenol Tab) 650 mg Q6H PRN PO PAIN LEVEL 1-3 OR FEVER Last administered on 07/12/16 16:42; Admin Dose 650 MG; Start 06/03/16 at 17:00 Acetaminophen (Tylenol Supp) 650 mg Q6H PRN [place] PAIN LEVEL 1-3 OR FEVER Last administered on 07/15/16 19:50; Admin Dose 650 MG; Start 06/03/16 at 17:00 Docusate Sodium (Colace) 100 mg Q12H PRN PO CONSTIPATION Last administered on 11:02; Admin Dose 100 MG; Start 06/03/16 at 17:00 Magnesium Hydroxide (Milk Of Mag) 30 ml DAILY PRN PO CONSTIPATION Last administered on 06/20/16at 06:13; Admin Dose 30 ML; Start 06/03/16 at 17:00 Bisacodyl (Dulcolax) 5 mg DAILY PRN PO CONSTIPATION Last administered on 11:02; Admin Dose 5 MG; Start 06/03/16 at 17:00 Bisacodyl (Dulcolax Supp) 10 mg DAILY PRN [place] CONSTIPATION Last administered on 06/21/16 05:18; Admin Dose 10 MG; Start 06/03/16 at 17:00 Sodium Biphosphate/ Sodium Phosphate (Fleet Enema) 133 ml DAILY PRN [place] CONSTIPATION; Start 06/03/16 at 17:00 Enoxaparin Sodium (Lovenox) 30 mg DAILY SC Last administered on 06/12/16 08: 27; Admin Dose 30 MG; Start 06/04/16 at 09:00; Status Future Hold Allopurinol (Zyloprim) 300 mg DAILY PO Last administered on 07/19/16 08:37; Admin Dose 300 MG; Start 06/04/16 at 09:00 Eye Lubricant (Artificial Tears Oph) 2 drop QID BOTH EYES Last administered on 07/19/16 08:55; Admin Dose 2 DROP; Start 06/03/16 at 21:00 Eye Lubricant (Akwa Oint) 1 applic DAILY BOTH EYES Last administered on 08:55; Admin Dose 1 APPLIC; Start 06/04/16 at 09:00 Gabapentin (Neurontin) 200 mg TID PO Last administered on 07/19/16 08:37; Admin Dose 200 MG; Start 06/03/16 at 21:00 Levothyroxine Sodium (Synthroid) 100 mcg DAILY@06 PO Last administered on 05:44; Admin Dose 100 MCG; Start 06/04/16 at 06:00 Pantoprazole (Protonix Iv) 40 mg DAILY@06 IV Last administered on 07/19/16 05: 41; Admin Dose 40 MG; Start 06/09/16 at 06:00 Lorazepam (Ativan) 1 mg Q6H PRN IV AGITATION/ANXIETY Last administered on 23:15; Admin Dose 1 MG; Start 06/08/16 at 18:00 Acetaminophen/ Hydrocodone Bitart ([place] (5/325)) 1 tab Q6H PRN PO PAIN Last administered on 06/11/16at 17:38; Admin Dose 1 TAB; Start 06/11/16 at 17:30 Collagenase (Santyl) 1 applic DAILY TOP Last administered on 07/19/16 08:55; Admin Dose 1 APPLIC; Start 06/12/16 at 09:00 Nystatin (Nystatin Susp) 5 ml QID PO Last administered on 07/19/16 08:37; Admin Dose 5 ML; Start 06/18/16 at 17:00 Scopolamine (Transderm-Scop) 1 patch Q72H TRANSDERM Last administered on 21:42; Admin Dose 1 PATCH; Start 06/22/16 at 21:00 Fluconazole 100 mg 100 mg DAILY PO Last administered on 07/19/16 08:36; Admin Dose 100 MG; Start 06/28/16 at 09:00 Sodium Chloride (NS) 1,000 ml @ 100 mls/hr Q10H IV Last administered on 11:25; Admin Dose 100 MLS/HR; Start 07/01/16 at 19:00 Lactobacillus Acidoph/Bulgaricus (Floranex) 1 tab BID PO Last administered on 21:36; Admin Dose 1 TAB; Start 07/01/16 at 21:00 Ibuprofen 600 mg 600 mg TID PRN PO FEVER Last administered on 07/04/16 01:29; Admin Dose 600 MG; Start 07/03/16 at 19:30 Filgrastim/ Dextrose (Neupogen/D5W) 51.6 ml @ 103.2 mls/ hr DAILY@17 IVPB Last administered on 07/18/16 17:23; Admin Dose 103.2 MLS/HR; Start 07/14/16 at 17:00 Metoclopramide HCl (Reglan) 10 mg Q6H PRN IV NAUSEA Last administered on 19:47; Admin Dose 10 MG; Start 07/16/16 at 08:30 Potassium Chloride 20 meq 20 meq BID PO Last administered on 07/19/16 08:37; Admin Dose 20 MEQ; Start 07/18/16 at 09:00 Potassium Chloride (KCl 40 MEQ/250 ML NS) 250 ml @ 62.5 mls/hr ONCE ONCE IVPB ; Start 07/19/16 at 09:00; Stop 07/19/16 at 12:59 GUERLINE SULLIVAN MD Jul 19, 2016 09:14
--- NOTE | 2016-07-19 10:07 | CONS ---
Date/Time of Note Date/Time of Note DATE: 07/19/16 TIME: 10:04 Assessment/Plan Assessment/Plan Chief Complaint/Hosp Course ID PROGRESS NOTE CURRENT ABX: # => Vanco IV, Diflucan s/p Merrem, Acyclovir 24H INTERVAL SUMMARY * Awake, no complaints, no fevers, no diarrhea * VSS, NAD Trach-> cool aerosol, calm, VSS, NAD PHYSICAL EXAMINATION: GENERAL: 56 yo F, trach present, VSS, NAD HEENT: Unremarkable NECK: (+)Trach present LUNGS: Chest rise symmetrical, without dyspnea on observation ABDOMEN: Soft EXTREMITIES: Warm, LUEXT PICC site without evidence infection, no edema, no drainage ID ASSESSMENT: 56 yo F w/neck mass 2nd/2 STAGE IIA Burkitts Lymphoma, s/p tracheostomy placement for compressed airway currently in chemo tx admit with: 1. SIRS w/low grade temperatures, s/p sepsis with high fevers likely secondary to neutropenia. * UTI 07/04/16 (+)Low colony count PSAR=MDRO 2. Respiratory failure, status post tracheostomy secondary to a neck mass causing tracheal compression and airway compromise, remains on trach collar. 3. Possible aspiration pneumonia=> (+)MRSA sputum 4. Leukocytosis=> s/p Neupogen 5. s/p Coagulase-negative Staphylococcus bacteremia cw contaminant. 6. Oral thrush=> oral Nystatin 7. Transaminitis=> Per GI NOTE: elevated LFT likely due to methotrexate. * ABNORMAL LIVER US: Cholelithiasis with 3 cm calcified gallstone within the neck of gallbladder versus liver calcification adjacent to the neck of gallbladder 8. Situational anxiety related to acute medical Dx and trach -> Stable (+)MRSA Nares Screen->Bactroban => Repeat MRSA (-) INVASIVES: PICC LUEXT, FC, Trach CURRENT ABX: Vanco IV, Diflucan s/p Merrem, Acyclovir s/p PO Bactrim, Diflucan, Doxy ID RECOMMENDATIONS/PLAN: 1. Stable on current ABX-> Continue . . . . Problems: Consultation Date/Type/Reason Admit Date/Time Jun 02, 2016 at 15:10 Initial Consult Date 06/02/16 Type of Consultation: ID Referring Provider: TELLY SOLANO MD Exam/Review of Systems Vital Signs Vitals Vital Signs Date Time Temp Pulse Resp B/P Pulse Ox O2 Delivery O2 Flow Rate FiO2 07/19/16 07:47 98.2 91 16 111/64 07/19/16 01:58 97 Aerosol 5.0 28 Intake and Output 07/18/16 07/18/16 07/19/16 15:00 23:00 07:00 Intake Total 1183.2 ml 80 ml Output Total 1000 ml Balance 1183.2 ml -920 ml Results Result Diagram: 07/18/16 0420 07/19/16 0430 Results 24 hrs Laboratory Tests Test 07/19/16 04:30 Anion Gap 11 Blood Urea Nitrogen 2 L Calcium Level 8.5 Carbon Dioxide Level 28 Chloride Level 105 Creatinine 0.33 L Glucose Level 88 Potassium Level 3.0 L Sodium Level 141 Medications Medications Current Medications Acyclovir (Zovirax) 400 mg BID PO Last administered on 07/19/16 08:36; Admin Dose 400 MG; Start 06/02/16 at 14:30 Diphenhydramine HCl (Benadryl) 25 mg Q4H PRN IV ALLERGIC REACTION Last administered on 06/06/16at 20:26; Admin Dose 25 MG; Start 06/02/16 at 18:30 Dexamethasone 10 mg 10 mg Q4H PRN IV ALLERGIC REACTION; Start 06/02/16 at 18: 30 Ondansetron HCl/ Sodium Chloride (Zofran Inj/NS) 54 ml @ 216 mls/hr Q6H PRN IV NAUSEA AND/OR VOMITING Last administered on 07/14/16 19:45; Admin Dose 216 MLS/HR; Start 06/02/16 at 18:30 Ondansetron HCl (Zofran Inj) 4 mg Q6H PRN IV NAUSEA AND/OR VOMITING Last administered on 07/15/16 19:38; Admin Dose 4 MG; Start 06/03/16 at 17:00 Acetaminophen (Tylenol Tab) 650 mg Q6H PRN PO PAIN LEVEL 1-3 OR FEVER Last administered on 07/12/16 16:42; Admin Dose 650 MG; Start 06/03/16 at 17:00 Acetaminophen (Tylenol Supp) 650 mg Q6H PRN [place] PAIN LEVEL 1-3 OR FEVER Last administered on 07/15/16 19:50; Admin Dose 650 MG; Start 12/13/16 at 17:00 Docusate Sodium (Colace) 100 mg Q12H PRN PO CONSTIPATION Last administered on 11:02; Admin Dose 100 MG; Start 06/03/16 at 17:00 Magnesium Hydroxide (Milk Of Mag) 30 ml DAILY PRN PO CONSTIPATION Last administered on 06/20/16 06:13; Admin Dose 30 ML; Start 06/03/16 at 17:00 Bisacodyl (Dulcolax) 5 mg DAILY PRN PO CONSTIPATION Last administered on 11:02; Admin Dose 5 MG; Start 06/03/16 at 17:00 Bisacodyl (Dulcolax Supp) 10 mg DAILY PRN [place] CONSTIPATION Last administered on 06/21/16 05:18; Admin Dose 10 MG; Start 06/03/16 at 17:00 Sodium Biphosphate/ Sodium Phosphate (Fleet Enema) 133 ml DAILY PRN ID CONSTIPATION; Start 06/03/16 at 17:00 Enoxaparin Sodium (Lovenox) 30 mg DAILY SC Last administered on 06/12/16 08: 27; Admin Dose 30 MG; Start 06/04/16 at 09:00; Status Future Hold Allopurinol (Zyloprim) 300 mg DAILY PO Last administered on 07/19/16 08:37; Admin Dose 300 MG; Start 06/04/16 at 09:00 Eye Lubricant (Artificial Tears Oph) 2 drop QID BOTH EYES Last administered on 07/19/16 08:55; Admin Dose 2 DROP; Start 06/03/16 at 21:00 Eye Lubricant (Akwa Oint) 1 applic DAILY BOTH EYES Last administered on 08:55; Admin Dose 1 APPLIC; Start 06/04/16 at 09:00 Gabapentin (Neurontin) 200 mg TID PO Last administered on 07/19/16 08:37; Admin Dose 200 MG; Start 06/03/16 at 21:00 Levothyroxine Sodium (Synthroid) 100 mcg DAILY@06 PO Last administered on 05:44; Admin Dose 100 MCG; Start 06/04/16 at 06:00 Pantoprazole (Protonix Iv) 40 mg DAILY@06 IV Last administered on 07/19/16 05: 41; Admin Dose 40 MG; Start 06/09/16 at 06:00 Lorazepam (Ativan) 1 mg Q6H PRN IV AGITATION/ANXIETY Last administered on 23:15; Admin Dose 1 MG; Start 06/08/16 at 18:00 Acetaminophen/ Hydrocodone Bitart ([place] (5/325)) 1 tab Q6H PRN PO PAIN Last administered on 06/11/16at 17:38; Admin Dose 1 TAB; Start 06/11/16 at 17:30 Collagenase (Santyl) 1 applic DAILY TOP Last administered on 07/19/16 08:55; Admin Dose 1 APPLIC; Start 06/12/16 at 09:00 Nystatin (Nystatin Susp) 5 ml QID PO Last administered on 07/19/16 08:37; Admin Dose 5 ML; Start 06/18/16 at 17:00 Scopolamine (Transderm-Scop) 1 patch Q72H TRANSDERM Last administered on 21:42; Admin Dose 1 PATCH; Start 06/22/16 at 21:00 Fluconazole 100 mg 100 mg DAILY PO Last administered on 07/19/16 08:36; Admin Dose 100 MG; Start 06/28/16 at 09:00 Sodium Chloride (NS) 1,000 ml @ 100 mls/hr Q10H IV Last administered on 11:25; Admin Dose 100 MLS/HR; Start 07/01/16 at 19:00 Lactobacillus Acidoph/Bulgaricus (Floranex) 1 tab BID PO Last administered on 21:36; Admin Dose 1 TAB; Start 07/01/16 at 21:00 Ibuprofen 600 mg 600 mg TID PRN PO FEVER Last administered on 07/04/16 01:29; Admin Dose 600 MG; Start 07/03/16 at 19:30 Filgrastim/ Dextrose (Neupogen/D5W) 51.6 ml @ 103.2 mls/ hr DAILY@17 IVPB Last administered on 07/18/16 17:23; Admin Dose 103.2 MLS/HR; Start 07/14/16 at 17:00 Metoclopramide HCl (Reglan) 10 mg Q6H PRN IV NAUSEA Last administered on 19:47; Admin Dose 10 MG; Start 07/16/16 at 08:30 Potassium Chloride 20 meq 20 meq BID PO Last administered on 07/19/16t 08:37; Admin Dose 20 MEQ; Start 07/18/16 at 09:00 Potassium Chloride (KCl 40 MEQ/250 ML NS) 250 ml @ 62.5 mls/hr ONCE ONCE IVPB ; Start 07/19/16 at 09:00; Stop 07/19/16 at 12:59 BRENT AUSTIN NP Jul 19, 2016 10:07
[2016-07-19] MEDS: LACTOBACILLUS CHEW TAB PO SCH ×2 (10:47→21:28)
[2016-07-19] MEDS ORDERED: SOD CHLORIDE 0.9% 250 ML IV* ONE (13:24)
--- NOTE | 2016-07-19 13:48 | PN ---
Date/Time of Note Date/Time of Note DATE: 07/19/16 TIME: 13:45 Assessment/Plan VTE Prophylaxis VTE Prophylaxis Intervention: ambulation Lines/Catheters IV [facility] Type (from [facility]): PICC Line Central line still needed: Yes Urinary Cath still in place: No Assessment/Plan Assessment/Plan 56 yo female with massive neck mass causing tracheal compression and airway compromise s/p tracheostomy placement. Pt diagnosed with STAGE IIA Burkitts Lymphoma. Pt was given cycle 1A and 1B of R HyperCVAD but had only a partial response to therapy and severe side effects and then had a change to her chemotherapy regimen. She is now s/p cycle 1B and is receiving R-IVAC. She is currently pancytopenic and transfusion dependant Problems: Additional Assessment/Plan # Burkitt's lymphoma - currently cycle 1B R -IVAC. chemotherapy regimen is as follows Part 2: R-IVAC Rituximab (Rituxan) 375 mg/m2 IV once on day 1 Ifosfamide (Ifex) 1500 mg/m2 IV over 2 hours once per day on days 1 to 5 Etoposide (Vepesid) 60 mg/m2 IV over 1 hour once per day on days 1 to 5 Cytarabine (Cytosar) 2 g/m2 IV over 3 hours Q12H on days 1 & 2 (4 doses total) [place] (Mesnex) 300 mg/m2 (mixed with Ifosfamide (Ifex)) , then 300mg/m2 IV every four hours x 2, on days 1 to 5 # Neutropenic fevers -appreciate ID recs. improving wbc # Supportive Care and prophylactic meds -Started Acyclovir 400mg BID -fluconazole 100mg q day -Neupogen 300mcg q day day after chemotherapy is completed -Zofran ordered prn nausea #Expected Pancytopenia -keep Hg> 8 and platelets > 10. patient remains [employer].will likely need platelet transfusion tomorrow and wrote orders # Elevated AST and ALT, likely related to methotrexate. now resolved #Weakness - secondary to deconditioning Subjective 24 Hr Interval Summary Free Text/Dictation trach no bleeding. Subjective hx not possible: pt critical status Exam/Review of Systems Vital Signs Vitals Vital Signs Date Time Temp Pulse Resp B/P Pulse Ox O2 Delivery O2 Flow Rate FiO2 07/19/16 09:45 98 20 99 Aerosol 5.0 28 07/19/16 07:47 98.2 111/64 Intake and Output 07/18/16 07/18/16 07/19/16 15:00 23:00 07:00 Intake Total 1183.2 ml 80 ml Output Total 1000 ml Balance 1183.2 ml -920 ml Exam Constitutional: frail, oriented Eyes: nl conjunctiva Respiratory: normal air movement Gastrointestinal: soft Results Result Diagram: 07/18/16 0420 07/19/16 0430 Results 24 hrs Laboratory Tests Test 07/19/16 04:30 Anion Gap 11 Blood Urea Nitrogen 2 L Calcium Level 8.5 Carbon Dioxide Level 28 Chloride Level 105 Creatinine 0.33 L Glucose Level 88 Potassium Level 3.0 L Sodium Level 141 Medications Medications Current Medications Acyclovir (Zovirax) 400 mg BID PO Last administered on 07/19/16 08:36; Admin Dose 400 MG; Start 06/02/16 at 14:30 Diphenhydramine HCl (Benadryl) 25 mg Q4H PRN IV ALLERGIC REACTION Last administered on 06/06/16at 20:26; Admin Dose 25 MG; Start 06/02/16 at 18:30 Dexamethasone 10 mg 10 mg Q4H PRN IV ALLERGIC REACTION; Start 06/02/16 at 18: 30 Ondansetron HCl/ Sodium Chloride (Zofran Inj/NS) 54 ml @ 216 mls/hr Q6H PRN IV NAUSEA AND/OR VOMITING Last administered on 07/14/16 19:45; Admin Dose 216 MLS/HR; Start 06/02/16 at 18:30 Ondansetron HCl (Zofran Inj) 4 mg Q6H PRN IV NAUSEA AND/OR VOMITING Last administered on 07/15/16 19:38; Admin Dose 4 MG; Start 06/03/16 at 17:00 Acetaminophen (Tylenol Tab) 650 mg Q6H PRN PO PAIN LEVEL 1-3 OR FEVER Last administered on 07/12/16 16:42; Admin Dose 650 MG; Start 06/03/16 at 17:00 Acetaminophen (Tylenol Supp) 650 mg Q6H PRN [place] PAIN LEVEL 1-3 OR FEVER Last administered on 07/15/16 19:50; Admin Dose 650 MG; Start 06/03/16 at 17:00 Docusate Sodium (Colace) 100 mg Q12H PRN PO CONSTIPATION Last administered on 11:02; Admin Dose 100 MG; Start 06/03/16 at 17:00 Magnesium Hydroxide (Milk Of Mag) 30 ml DAILY PRN PO CONSTIPATION Last administered on 06/20/16 06:13; Admin Dose 30 ML; Start 06/03/16 at 17:00 Bisacodyl (Dulcolax) 5 mg DAILY PRN PO CONSTIPATION Last administered on 11:02; Admin Dose 5 MG; Start 06/03/16 at 17:00 Bisacodyl (Dulcolax Supp) 10 mg DAILY PRN [place] CONSTIPATION Last administered on 06/21/16 05:18; Admin Dose 10 MG; Start 06/03/16 at 17:00 Sodium Biphosphate/ Sodium Phosphate (Fleet Enema) 133 ml DAILY PRN [place] CONSTIPATION; Start 06/03/16 at 17:00 Enoxaparin Sodium (Lovenox) 30 mg DAILY SC Last administered on 06/12/16 08: 27; Admin Dose 30 MG; Start 06/04/16 at 09:00; Status Future Hold Allopurinol (Zyloprim) 300 mg DAILY PO Last administered on 07/19/16 08:37; Admin Dose 300 MG; Start 06/04/16 at 09:00 Eye Lubricant (Artificial Tears Oph) 2 drop QID BOTH EYES Last administered on 07/19/16 08:55; Admin Dose 2 DROP; Start 06/03/16 at 21:00 Eye Lubricant (Akwa Oint) 1 applic DAILY BOTH EYES Last administered on 08:55; Admin Dose 1 APPLIC; Start 06/04/16 at 09:00 Gabapentin (Neurontin) 200 mg TID PO Last administered on 07/19/16 08:37; Admin Dose 200 MG; Start 06/03/16 at 21:00 Levothyroxine Sodium (Synthroid) 100 mcg DAILY@06 PO Last administered on 05:44; Admin Dose 100 MCG; Start 06/04/16 at 06:00 Pantoprazole (Protonix Iv) 40 mg DAILY@06 IV Last administered on 07/19/16 05: 41; Admin Dose 40 MG; Start 06/09/16 at 06:00 Lorazepam (Ativan) 1 mg Q6H PRN IV AGITATION/ANXIETY Last administered on 23:15; Admin Dose 1 MG; Start 06/08/16 at 18:00 Acetaminophen/ Hydrocodone Bitart ([place] (5/325)) 1 tab Q6H PRN PO PAIN Last administered on 06/11/16at 17:38; Admin Dose 1 TAB; Start 06/11/16 at 17:30 Collagenase (Santyl) 1 applic DAILY TOP Last administered on 07/19/16 08:55; Admin Dose 1 APPLIC; Start 06/12/16 at 09:00 Nystatin (Nystatin Susp) 5 ml QID PO Last administered on 07/19/16 08:37; Admin Dose 5 ML; Start 06/18/16 at 17:00 Scopolamine (Transderm-Scop) 1 patch Q72H TRANSDERM Last administered on 21:42; Admin Dose 1 PATCH; Start 06/22/16 at 21:00 Fluconazole 100 mg 100 mg DAILY PO Last administered on 07/19/16 08:36; Admin Dose 100 MG; Start 06/28/16 at 09:00 Sodium Chloride (NS) 1,000 ml @ 100 mls/hr Q10H IV Last administered on 11:25; Admin Dose 100 MLS/HR; Start 07/01/16 at 19:00 Lactobacillus Acidoph/Bulgaricus (Floranex) 1 tab BID PO Last administered on 10:47; Admin Dose 1 TAB; Start 07/01/16 at 21:00 Ibuprofen 600 mg 600 mg TID PRN PO FEVER Last administered on 07/04/16 01:29; Admin Dose 600 MG; Start 07/03/16 at 19:30 Filgrastim/ Dextrose (Neupogen/D5W) 51.6 ml @ 103.2 mls/ hr DAILY@17 IVPB Last administered on 07/18/16 17:23; Admin Dose 103.2 MLS/HR; Start 07/14/16 at 17:00 Metoclopramide HCl (Reglan) 10 mg Q6H PRN IV NAUSEA Last administered on 19:47; Admin Dose 10 MG; Start 07/16/16 at 08:30 Potassium Chloride (Potassium Chloride Pwd/Soln) 20 meq BID PO Last administered on 07/19/16 08:37; Admin Dose 20 MEQ; Start 07/18/16 at 09:00 SUAD FRANCO MD Jul 19, 2016 13:47
[2016-07-19] MEDS: FILGRASTIM IVPB SCH (19:06)
[2016-07-19] MEDS: DEXTROSE 5% IVPB SCH (19:06)
[2016-07-19 19:10] VITALS: BP 135/82; RESP 18
[2016-07-19] MEDS: ONDANSETRON 4 MG INJ IV PRN (19:19)
[2016-07-19] MEDS: ONDANSETRON INJ 8 MG in SOD CHLORIDE 0.9% 50 ML IV PRN (21:25)
[2016-07-19] MEDS: SCOPOLAMINE 1.5 MG PATCH TRANSDERM SCH (21:32)
[2016-07-20] MEDS: ALBUTEROL/IPRATROPIUM (NEB) 3 ML AMP HHN SCH ×4 (01:49→19:56)
[2016-07-20] MEDS: SOD CHLORIDE 0.9% 1,000 ML IV SCH ×3 (03:00→22:39)
[2016-07-20] MEDS: PANTOPRAZOLE 40 MG INJ IV SCH (05:59)
[2016-07-20] MEDS: LEVOTHYROXINE 100 MCG TAB PO SCH (05:59)
[2016-07-20 07:06] LABS: CHLORIDE 104 mmol/L (97-110); SODIUM 141 mmol/L (135-144)
[2016-07-20 07:07] LABS: POTASSIUM 3.3 mmol/L (3.5-5.1)
[2016-07-20 07:09] LABS: CREATININE 0.35 mg/dl (0.44-1.00)
[2016-07-20 07:10] LABS: ANION GAP 12 (8-16); CALCIUM 8.9 mg/dl (8.4-10.2); CARBON DIOXIDE 28 mmol/L (21-31); GLUCOSE 92 mg/dl (70-220)
[2016-07-20 07:12] LABS: BLOOD UREA NITROGEN < 2 mg/dl (7-20)
[2016-07-20 08:54] VITALS: BP 106/65; RESP 18
[2016-07-20] MEDS: ONDANSETRON INJ 8 MG in SOD CHLORIDE 0.9% 50 ML IV PRN (09:28)
[2016-07-20] MEDS: LACTOBACILLUS CHEW TAB PO SCH ×2 (09:29→21:25)
[2016-07-20] MEDS: NYSTATIN SUSP 5 ML CUP PO SCH ×4 (09:29→22:38)
[2016-07-20] MEDS: POTASSIUM CHLORIDE 20 MEQ POWDER FOR ORAL SOLN PO SCH (09:30)
[2016-07-20] MEDS: HYDROCODONE/APAP (5/325) TAB PO PRN (09:30)
[2016-07-20] MEDS: ALLOPURINOL 300 MG TAB PO SCH (09:30)
[2016-07-20] MEDS: GABAPENTIN 100 MG CAP PO SCH ×3 (09:30→21:25)
[2016-07-20] MEDS: FLUCONAZOLE 100 MG TAB PO SCH (09:30)
[2016-07-20] MEDS: ACYCLOVIR 400 MG TAB PO SCH ×2 (09:30→21:25)
[2016-07-20] MEDS: COLLAGENASE 30 GM TUBE TOP SCH (09:31)
[2016-07-20] MEDS: ARTIFICIAL TEARS 15 ML OPH BOTH EYES SCH ×4 (09:31→21:26)
[2016-07-20] MEDS: OCULAR LUBRICANT 3.5 GM OPH OINT BOTH EYES SCH (09:31)
[2016-07-20] MEDS ORDERED: POTASSIUM CHLORIDE 250 ML IVPB ONE ×2 (12:00→13:15)
--- NOTE | 2016-07-20 12:59 | PN ---
Date/Time of Note Date/Time of Note DATE: 07/20/16 TIME: 12:51 Assessment/Plan VTE Prophylaxis VTE Prophylaxis Intervention: ambulation Lines/Catheters IV [facility] PICC Line Central line still needed: Yes Urinary Cath still in place: No Assessment/Plan Assessment/Plan 56 yo female with massive neck mass causing tracheal compression and airway compromise s/p tracheostomy placement. Pt diagnosed with STAGE IIA Burkitts Lymphoma. Pt was given cycle 1A and 1B of R HyperCVAD but had only a partial response to therapy and severe side effects and then had a change to her chemotherapy regimen. She is now s/p cycle 1B and is receiving R-IVAC. She is currently pancytopenic and transfusion dependant but improving. Problems: Additional Assessment/Plan # Burkitt's lymphoma - currently cycle 1B R -IVAC. chemotherapy regimen is as follows Part 2: R-IVAC Rituximab (Rituxan) 375 mg/m2 IV once on day 1 Ifosfamide (Ifex) 1500 mg/m2 IV over 2 hours once per day on days 1 to 5 Etoposide (Vepesid) 60 mg/m2 IV over 1 hour once per day on days 1 to 5 Cytarabine (Cytosar) 2 g/m2 IV over 3 hours Q12H on days 1 & 2 (4 doses total) [place] (Mesnex) 300 mg/m2 (mixed with Ifosfamide (Ifex)) , then 300mg/m2 IV every four hours x 2, on days 1 to 5 Will d/w Dr dang re; restaging and further chemorx plans. # Neutropenic fevers -appreciate ID recs. improving wbc consider stopping neupogen tomorrow after cbc results available # Supportive Care and prophylactic meds -Started Acyclovir 400mg BID -fluconazole 100mg q day -Neupogen 300mcg q day -Zofran ordered prn nausea #Expected Pancytopenia -keep Hg> 8 and platelets > 10. patient remains [employer].will need platelet transfusion today and wrote orders # Elevated AST and ALT, likely related to methotrexate. now resolved #Weakness - secondary to deconditioning Replace K by Dr Curran recs. Subjective 24 Hr Interval Summary Constitutional: poor po Cardiovascular: lightheadedness Gastrointestinal: nausea, vomiting Musculoskeletal: back pain, bone/joint pain Neurologic: headache Exam/Review of Systems Vital Signs Vitals Vital Signs Date Time Temp Pulse Resp B/P Pulse Ox O2 Delivery O2 Flow Rate FiO2 07/20/16 10:26 5.0 28 07/20/16 10:26 92 22 100 Aerosol T Tube 07/20/16 08:54 98.5 106/65 Intake and Output 07/19/16 07/19/16 07/20/16 15:00 23:00 07:00 Intake Total 240 ml 500 ml Output Total 500 ml Balance 240 ml 0 ml Exam trach no bleeding Constitutional: oriented Psych: anxiety, depression Eyes: nl conjunctiva Neck: supple Respiratory: normal air movement Results Result Diagram: 07/18/16 0420 07/20/16 0545 Results 24 hrs Laboratory Tests Test 07/20/16 05:45 Anion Gap 12 Blood Urea Nitrogen < 2 L Calcium Level 8.9 Carbon Dioxide Level 28 Chloride Level 104 Creatinine 0.35 L Glucose Level 92 Potassium Level 3.3 L Sodium Level 141 Medications Medications Current Medications Acyclovir (Zovirax) 400 mg BID PO Last administered on 07/20/16 09:30; Admin Dose 400 MG; Start 06/02/16 at 14:30 Diphenhydramine HCl (Benadryl) 25 mg Q4H PRN IV ALLERGIC REACTION Last administered on 06/06/16at 20:26; Admin Dose 25 MG; Start 06/02/16 at 18:30 Dexamethasone 10 mg 10 mg Q4H PRN IV ALLERGIC REACTION; Start 06/02/16 at 18: 30 Ondansetron HCl/ Sodium Chloride (Zofran Inj/NS) 54 ml @ 216 mls/hr Q6H PRN IV NAUSEA AND/OR VOMITING Last administered on 07/20/16 09:28; Admin Dose 216 MLS/HR; Start 06/02/16 at 18:30 Ondansetron HCl (Zofran Inj) 4 mg Q6H PRN IV NAUSEA AND/OR VOMITING Last administered on 07/19/16 19:19; Admin Dose 4 MG; Start 06/03/16 at 17:00 Acetaminophen (Tylenol Tab) 650 mg Q6H PRN PO PAIN LEVEL 1-3 OR FEVER Last administered on 07/12/16 16:42; Admin Dose 650 MG; Start 06/03/16 at 17:00 Acetaminophen (Tylenol Supp) 650 mg Q6H PRN [place] PAIN LEVEL 1-3 OR FEVER Last administered on 07/15/16 19:50; Admin Dose 650 MG; Start 06/03/16 at 17:00 Docusate Sodium (Colace) 100 mg Q12H PRN PO CONSTIPATION Last administered on 11:02; Admin Dose 100 MG; Start 06/03/16 at 17:00 Magnesium Hydroxide (Milk Of Mag) 30 ml DAILY PRN PO CONSTIPATION Last administered on 06/20/16 06:13; Admin Dose 30 ML; Start 06/03/16 at 17:00 Bisacodyl (Dulcolax) 5 mg DAILY PRN PO CONSTIPATION Last administered on 11:02; Admin Dose 5 MG; Start 06/03/16 at 17:00 Bisacodyl (Dulcolax Supp) 10 mg DAILY PRN [place] CONSTIPATION Last administered on 06/21/16 05:18; Admin Dose 10 MG; Start 06/03/16 at 17:00 Sodium Biphosphate/ Sodium Phosphate (Fleet Enema) 133 ml DAILY PRN [place] CONSTIPATION; Start 06/03/16 at 17:00 Enoxaparin Sodium (Lovenox) 30 mg DAILY SC Last administered on 06/12/16 08: 27; Admin Dose 30 MG; Start 06/04/16 at 09:00; Status Future Hold Allopurinol (Zyloprim) 300 mg DAILY PO Last administered on 07/20/16 09:30; Admin Dose 300 MG; Start 06/04/16 at 09:00 Eye Lubricant (Artificial Tears Oph) 2 drop QID BOTH EYES Last administered on 07/20/16 09:31; Admin Dose 2 DROP; Start 06/03/16 at 21:00 Eye Lubricant (Akwa Oint) 1 applic DAILY BOTH EYES Last administered on 09:31; Admin Dose 1 APPLIC; Start 06/04/16 at 09:00 Gabapentin (Neurontin) 200 mg TID PO Last administered on 07/20/16 09:30; Admin Dose 200 MG; Start 06/03/16 at 21:00 Levothyroxine Sodium (Synthroid) 100 mcg DAILY@06 PO Last administered on 05:59; Admin Dose 100 MCG; Start 06/04/16 at 06:00 Pantoprazole (Protonix Iv) 40 mg DAILY@06 IV Last administered on 07/20/16 05: 59; Admin Dose 40 MG; Start 06/09/16 at 06:00 Lorazepam (Ativan) 1 mg Q6H PRN IV AGITATION/ANXIETY Last administered on 23:15; Admin Dose 1 MG; Start 06/08/16 at 18:00 Acetaminophen/ Hydrocodone Bitart ([place] (5/325)) 1 tab Q6H PRN PO PAIN Last administered on 07/20/16 09:30; Admin Dose 1 TAB; Start 06/11/16 at 17:30 Collagenase (Santyl) 1 applic DAILY TOP Last administered on 07/20/16 09:31; Admin Dose 1 APPLIC; Start 06/12/16 at 09:00 Nystatin (Nystatin Susp) 5 ml QID PO Last administered on 07/20/16 09:29; Admin Dose 5 ML; Start 06/18/16 at 17:00 Scopolamine (Transderm-Scop) 1 patch Q72H TRANSDERM Last administered on 21:32; Admin Dose 1 PATCH; Start 06/22/16 at 21:00 Fluconazole 100 mg 100 mg DAILY PO Last administered on 07/20/16 09:30; Admin Dose 100 MG; Start 06/28/16 at 09:00 Sodium Chloride (NS) 1,000 ml @ 100 mls/hr Q10H IV Last administered on 11:25; Admin Dose 100 MLS/HR; Start 07/01/16 at 19:00 Lactobacillus Acidoph/Bulgaricus (Floranex) 1 tab BID PO Last administered on 09:29; Admin Dose 1 TAB; Start 07/01/16 at 21:00 Ibuprofen 600 mg 600 mg TID PRN PO FEVER Last administered on 07/04/16 01:29; Admin Dose 600 MG; Start 07/03/16 at 19:30 Filgrastim/ Dextrose (Neupogen/D5W) 51.6 ml @ 103.2 mls/ hr DAILY@17 IVPB Last administered on 07/19/16 19:06; Admin Dose 103.2 MLS/HR; Start 07/14/16 at 17:00 Metoclopramide HCl 10 mg 10 mg Q6H PRN IV NAUSEA Last administered on t 19:47; Admin Dose 10 MG; Start 07/16/16 at 08:30 Potassium Chloride 250 ml @ 62.5 mls/hr ONCE ONCE IVPB ; Start 07/20/16 at 13: 15; Stop 07/20/16 at 17:14 Potassium Chloride 250 ml @ 62.5 mls/hr ONCE ONCE IVPB ; Start 07/21/16 at 13: 00; Stop 07/21/16 at 16:59 Potassium Chloride (KCl 40 MEQ/250 ML NS) 250 ml @ 62.5 mls/hr ONCE ONCE IVPB ; Start 07/22/16 at 12:00; Stop 07/22/16 at 15:59 SUAD FRANCO MD Jul 20, 2016 12:59
--- NOTE | 2016-07-20 13:30 | PN ---
Date/Time of Note Date/Time of Note DATE: 07/20/16 TIME: 13:28 Assessment/Plan VTE Prophylaxis VTE Prophylaxis Intervention: other Lines/Catheters IV Catheter Type (from Nrsg): PICC Line Central line still needed: Yes Urinary Cath still in place: No Assessment/Plan Chief Complaint/Hosp Course IMPRESSION: The patient has Burkitt's lymphoma HX tracheostomy, status post thyroid mass, pancytopenia, abnormal liver function test. better SEPSIS better gallstone ABN LFT better anemia post chemo uti pancytopenia better hypokalemia poor po intake PLAN per oncology LABS chemo per dr dagn per id kcl Problems: Subjective 24 Hr Interval Summary Respiratory: no complaints Cardiovascular: no complaints Gastrointestinal: no complaints Exam/Review of Systems Vital Signs Vitals Vital Signs Date Time Temp Pulse Resp B/P Pulse Ox O2 Delivery O2 Flow Rate FiO2 07/20/16 10:26 5.0 28 07/20/16 10:26 92 22 100 Aerosol T Tube 07/20/16 08:54 98.5 106/65 Intake and Output 07/19/16 07/19/16 07/20/16 15:00 23:00 07:00 Intake Total 240 ml 500 ml Output Total 500 ml Balance 240 ml 0 ml Exam Neck: supple Respiratory: clear to auscultation Cardiovascular: regular rate and rhythm Gastrointestinal: soft Musculoskeletal: nl extremities to inspection Extremities: normal pulses Results Result Diagram: 07/18/16 0420 07/20/16 0545 Results 24 hrs Laboratory Tests Test 07/20/16 05:45 Anion Gap 12 Blood Urea Nitrogen < 2 L Calcium Level 8.9 Carbon Dioxide Level 28 Chloride Level 104 Creatinine 0.35 L Glucose Level 92 Potassium Level 3.3 L Sodium Level 141 Medications Medications Current Medications Acyclovir (Zovirax) 400 mg BID PO Last administered on 07/20/16t 09:30; Admin Dose 400 MG; Start 06/02/16 at 14:30 Diphenhydramine HCl (Benadryl) 25 mg Q4H PRN IV ALLERGIC REACTION Last administered on 06/06/16at 20:26; Admin Dose 25 MG; Start 06/02/16 at 18:30 Dexamethasone 10 mg 10 mg Q4H PRN IV ALLERGIC REACTION; Start 06/02/16 at 18: 30 Ondansetron HCl/ Sodium Chloride (Zofran Inj/NS) 54 ml @ 216 mls/hr Q6H PRN IV NAUSEA AND/OR VOMITING Last administered on 07/20/16 09:28; Admin Dose 216 MLS/HR; Start 06/02/16 at 18:30 Ondansetron HCl (Zofran Inj) 4 mg Q6H PRN IV NAUSEA AND/OR VOMITING Last administered on 07/19/16 19:19; Admin Dose 4 MG; Start 06/03/16 at 17:00 Acetaminophen (Tylenol Tab) 650 mg Q6H PRN PO PAIN LEVEL 1-3 OR FEVER Last administered on 07/12/16 16:42; Admin Dose 650 MG; Start 06/03/16 at 17:00 Acetaminophen (Tylenol Supp) 650 mg Q6H PRN [place] PAIN LEVEL 1-3 OR FEVER Last administered on 07/15/16 19:50; Admin Dose 650 MG; Start 06/03/16 at 17:00 Docusate Sodium (Colace) 100 mg Q12H PRN PO CONSTIPATION Last administered on 11:02; Admin Dose 100 MG; Start 06/03/16 at 17:00 Magnesium Hydroxide (Milk Of Mag) 30 ml DAILY PRN PO CONSTIPATION Last administered on 06/20/16at 06:13; Admin Dose 30 ML; Start 06/03/16 at 17:00 Bisacodyl (Dulcolax) 5 mg DAILY PRN PO CONSTIPATION Last administered on 11:02; Admin Dose 5 MG; Start 06/03/16 at 17:00 Bisacodyl (Dulcolax Supp) 10 mg DAILY PRN [place] CONSTIPATION Last administered on 06/21/16at 05:18; Admin Dose 10 MG; Start 06/03/16 at 17:00 Sodium Biphosphate/ Sodium Phosphate (Fleet Enema) 133 ml DAILY PRN [place] CONSTIPATION; Start 06/03/16 at 17:00 Enoxaparin Sodium (Lovenox) 30 mg DAILY SC Last administered on 06/12/16at 08: 27; Admin Dose 30 MG; Start 06/04/16 at 09:00; Status Future Hold Allopurinol (Zyloprim) 300 mg DAILY PO Last administered on 07/20/16 09:30; Admin Dose 300 MG; Start 06/04/16 at 09:00 Eye Lubricant (Artificial Tears Oph) 2 drop QID BOTH EYES Last administered on 07/20/16 09:31; Admin Dose 2 DROP; Start 06/03/16 at 21:00 Eye Lubricant (Akwa Oint) 1 applic DAILY BOTH EYES Last administered on 09:31; Admin Dose 1 APPLIC; Start 06/04/16 at 09:00 Gabapentin (Neurontin) 200 mg TID PO Last administered on 07/20/16 09:30; Admin Dose 200 MG; Start 06/03/16 at 21:00 Levothyroxine Sodium (Synthroid) 100 mcg DAILY@06 PO Last administered on 05:59; Admin Dose 100 MCG; Start 06/04/16 at 06:00 Pantoprazole (Protonix Iv) 40 mg DAILY@06 IV Last administered on 07/20/16 05: 59; Admin Dose 40 MG; Start 06/09/16 at 06:00 Lorazepam (Ativan) 1 mg Q6H PRN IV AGITATION/ANXIETY Last administered on 23:15; Admin Dose 1 MG; Start 06/08/16 at 18:00 Acetaminophen/ Hydrocodone Bitart ([place] (5/325)) 1 tab Q6H PRN PO PAIN Last administered on 07/20/16 09:30; Admin Dose 1 TAB; Start 06/11/16 at 17:30 Collagenase (Santyl) 1 applic DAILY TOP Last administered on 07/20/16 09:31; Admin Dose 1 APPLIC; Start 06/12/16 at 09:00 Nystatin (Nystatin Susp) 5 ml QID PO Last administered on 07/20/16 09:29; Admin Dose 5 ML; Start 06/18/16 at 17:00 Scopolamine (Transderm-Scop) 1 patch Q72H TRANSDERM Last administered on 21:32; Admin Dose 1 PATCH; Start 06/22/16 at 21:00 Fluconazole 100 mg 100 mg DAILY PO Last administered on 07/20/16 09:30; Admin Dose 100 MG; Start 06/28/16 at 09:00 Sodium Chloride (NS) 1,000 ml @ 100 mls/hr Q10H IV Last administered on 11:25; Admin Dose 100 MLS/HR; Start 07/01/16 at 19:00 Lactobacillus Acidoph/Bulgaricus (Floranex) 1 tab BID PO Last administered on 09:29; Admin Dose 1 TAB; Start 07/01/16 at 21:00 Ibuprofen 600 mg 600 mg TID PRN PO FEVER Last administered on 07/04/16 01:29; Admin Dose 600 MG; Start 07/03/16 at 19:30 Filgrastim/ Dextrose (Neupogen/D5W) 51.6 ml @ 103.2 mls/ hr DAILY@17 IVPB Last administered on 07/19/16 19:06; Admin Dose 103.2 MLS/HR; Start 07/14/16 at 17:00 Metoclopramide HCl 10 mg 10 mg Q6H PRN IV NAUSEA Last administered on 19:47; Admin Dose 10 MG; Start 07/16/16 at 08:30 Potassium Chloride 250 ml @ 62.5 mls/hr ONCE ONCE IVPB ; Start 07/20/16 at 13: 15; Stop 07/20/16 at 17:14 Potassium Chloride 250 ml @ 62.5 mls/hr ONCE ONCE IVPB ; Start 07/21/16 at 13: 00; Stop 07/21/16 at 16:59 Potassium Chloride (KCl 40 MEQ/250 ML NS) 250 ml @ 62.5 mls/hr ONCE ONCE IVPB ; Start 07/22/16 at 12:00; Stop 07/22/16 at 15:59 GUERLINE SULLIVAN MD Jul 20, 2016 13:30
[2016-07-20] MEDS: METOCLOPRAMIDE 10 MG INJ IV PRN ×2 (14:56→21:18)
--- NOTE | 2016-07-20 15:14 | CONS ---
Date/Time of Note Date/Time of Note DATE: 07/20/16 TIME: 15:10 Assessment/Plan Assessment/Plan Chief Complaint/Hosp Course ID PROGRESS NOTE CURRENT ABX: # => Diflucan s/p Merrem, Acyclovir, s/p > Vanco IV DC'd 07/18 24H INTERVAL SUMMARY * Doing OK, watching TV, A/A/O,no fevers, no diarrhea * Trach secure, persistent thrombocytopenia PHYSICAL EXAMINATION: GENERAL: 56 yo F, trach present, VSS, NAD HEENT: Unremarkable NECK: (+)Trach present LUNGS: Chest rise symmetrical, without dyspnea on observation ABDOMEN: Soft EXTREMITIES: Warm, LUEXT PICC site without evidence infection, no edema, no drainage ID ASSESSMENT: 56 yo F w/neck mass 2nd/2 STAGE IIA Burkitts Lymphoma, s/p tracheostomy placement for compressed airway currently in chemo tx admit with: 1. SIRS w/low grade temperatures, s/p sepsis with high fevers likely secondary to neutropenia. * UTI 07/04/16 (+)Low colony count PSAR=MDRO 2. Respiratory failure, status post tracheostomy secondary to a neck mass causing tracheal compression and airway compromise, remains on trach collar. 3. Possible aspiration pneumonia=> (+)MRSA sputum 4. Leukocytosis=> s/p Neupogen 5. s/p Coagulase-negative Staphylococcus bacteremia cw contaminant. 6. Oral thrush=> oral Nystatin 7. Transaminitis=> Per GI NOTE: elevated LFT likely due to methotrexate. * ABNORMAL LIVER US: Cholelithiasis with 3 cm calcified gallstone within the neck of gallbladder versus liver calcification adjacent to the neck of gallbladder 8. Situational anxiety related to acute medical Dx and trach -> Stable 9. Thrombocytopenia (+)MRSA Nares Screen->Bactroban => Repeat MRSA (-) INVASIVES: PICC LUEXT, FC, Trach CURRENT ABX: Diflucan s/p > Vanco IV DC'd 07/18 s/p Merrem, Acyclovir s/p PO Bactrim, Diflucan, Doxy ID RECOMMENDATIONS/PLAN: 1. Vanco IV DC'd on 07/18/16 => MRSA HCAP treated, no fevers 2. Observe on Diflucan for oral candidiasis - repeat micro PRN fevers . . . . . Problems: Consultation Date/Type/Reason Admit Date/Time Jun 02, 2016 at 15:10 Initial Consult Date 06/02/16 Type of Consultation: ID Referring Provider: TELLY SOLANO MD Exam/Review of Systems Vital Signs Vitals Vital Signs Date Time Temp Pulse Resp B/P Pulse Ox O2 Delivery O2 Flow Rate FiO2 07/20/16 13:30 88 20 100 Aerosol 5.0 28 T Tube 07/20/16 08:54 98.5 106/65 Intake and Output 07/19/16 07/19/16 07/20/16 15:00 23:00 07:00 Intake Total 240 ml 500 ml Output Total 500 ml Balance 240 ml 0 ml Results Result Diagram: 07/18/16 0420 07/20/16 0545 Results 24 hrs Laboratory Tests Test 07/20/16 05:45 Anion Gap 12 Blood Urea Nitrogen < 2 L Calcium Level 8.9 Carbon Dioxide Level 28 Chloride Level 104 Creatinine 0.35 L Glucose Level 92 Potassium Level 3.3 L Sodium Level 141 Medications Medications Current Medications Acyclovir (Zovirax) 400 mg BID PO Last administered on 07/20/16 09:30; Admin Dose 400 MG; Start 06/02/16 at 14:30 Diphenhydramine HCl (Benadryl) 25 mg Q4H PRN IV ALLERGIC REACTION Last administered on 06/06/16at 20:26; Admin Dose 25 MG; Start 06/02/16 at 18:30 Dexamethasone 10 mg 10 mg Q4H PRN IV ALLERGIC REACTION; Start 06/02/16 at 18: 30 Ondansetron HCl/ Sodium Chloride (Zofran Inj/NS) 54 ml @ 216 mls/hr Q6H PRN IV NAUSEA AND/OR VOMITING Last administered on 07/20/16 09:28; Admin Dose 216 MLS/HR; Start 06/02/16 at 18:30 Ondansetron HCl (Zofran Inj) 4 mg Q6H PRN IV NAUSEA AND/OR VOMITING Last administered on 07/19/16 19:19; Admin Dose 4 MG; Start 06/03/16 at 17:00 Acetaminophen (Tylenol Tab) 650 mg Q6H PRN PO PAIN LEVEL 1-3 OR FEVER Last administered on 07/12/16 16:42; Admin Dose 650 MG; Start 06/03/16 at 17:00 Acetaminophen (Tylenol Supp) 650 mg Q6H PRN [place] PAIN LEVEL 1-3 OR FEVER Last administered on 07/15/16 19:50; Admin Dose 650 MG; Start 06/03/16 at 17:00 Docusate Sodium (Colace) 100 mg Q12H PRN PO CONSTIPATION Last administered on 11:02; Admin Dose 100 MG; Start 06/03/16 at 17:00 Magnesium Hydroxide (Milk Of Mag) 30 ml DAILY PRN PO CONSTIPATION Last administered on 06/20/16 06:13; Admin Dose 30 ML; Start 06/03/16 at 17:00 Bisacodyl (Dulcolax) 5 mg DAILY PRN PO CONSTIPATION Last administered on 11:02; Admin Dose 5 MG; Start 06/03/16 at 17:00 Bisacodyl (Dulcolax Supp) 10 mg DAILY PRN [place] CONSTIPATION Last administered on 06/21/16 05:18; Admin Dose 10 MG; Start 06/03/16 at 17:00 Sodium Biphosphate/ Sodium Phosphate (Fleet Enema) 133 ml DAILY PRN [place] CONSTIPATION; Start 06/03/16 at 17:00 Enoxaparin Sodium (Lovenox) 30 mg DAILY SC Last administered on 06/12/16 08: 27; Admin Dose 30 MG; Start 06/04/16 at 09:00; Status Future Hold Allopurinol (Zyloprim) 300 mg DAILY PO Last administered on 07/20/16 09:30; Admin Dose 300 MG; Start 06/04/16 at 09:00 Eye Lubricant (Artificial Tears Oph) 2 drop QID BOTH EYES Last administered on 07/20/16 13:40; Admin Dose 2 DROP; Start 06/03/16 at 21:00 Eye Lubricant (Akwa Oint) 1 applic DAILY BOTH EYES Last administered on 09:31; Admin Dose 1 APPLIC; Start 06/04/16 at 09:00 Gabapentin (Neurontin) 200 mg TID PO Last administered on 07/20/16 09:30; Admin Dose 200 MG; Start 06/03/16 at 21:00 Levothyroxine Sodium (Synthroid) 100 mcg DAILY@06 PO Last administered on 05:59; Admin Dose 100 MCG; Start 06/04/16 at 06:00 Pantoprazole (Protonix Iv) 40 mg DAILY@06 IV Last administered on 07/20/16 05: 59; Admin Dose 40 MG; Start 06/09/16 at 06:00 Lorazepam (Ativan) 1 mg Q6H PRN IV AGITATION/ANXIETY Last administered on 23:15; Admin Dose 1 MG; Start 06/08/16 at 18:00 Acetaminophen/ Hydrocodone Bitart ([place] (5/325)) 1 tab Q6H PRN PO PAIN Last administered on 07/20/16 09:30; Admin Dose 1 TAB; Start 06/11/16 at 17:30 Collagenase (Santyl) 1 applic DAILY TOP Last administered on 07/20/16 09:31; Admin Dose 1 APPLIC; Start 06/12/16 at 09:00 Nystatin (Nystatin Susp) 5 ml QID PO Last administered on 07/20/16 13:40; Admin Dose 5 ML; Start 06/18/16 at 17:00 Scopolamine (Transderm-Scop) 1 patch Q72H TRANSDERM Last administered on 21:32; Admin Dose 1 PATCH; Start 06/22/16 at 21:00 Fluconazole 100 mg 100 mg DAILY PO Last administered on 07/20/16 09:30; Admin Dose 100 MG; Start 06/28/16 at 09:00 Sodium Chloride (NS) 1,000 ml @ 100 mls/hr Q10H IV Last administered on 11:25; Admin Dose 100 MLS/HR; Start 07/01/16 at 19:00 Lactobacillus Acidoph/Bulgaricus (Floranex) 1 tab BID PO Last administered on 09:29; Admin Dose 1 TAB; Start 07/01/16 at 21:00 Ibuprofen 600 mg 600 mg TID PRN PO FEVER Last administered on 07/04/16 01:29; Admin Dose 600 MG; Start 07/03/16 at 19:30 Filgrastim/ Dextrose (Neupogen/D5W) 51.6 ml @ 103.2 mls/ hr DAILY@17 IVPB Last administered on 07/19/16 19:06; Admin Dose 103.2 MLS/HR; Start 07/14/16 at 17:00 Metoclopramide HCl 10 mg 10 mg Q6H PRN IV NAUSEA Last administered on 14:56; Admin Dose 10 MG; Start 07/16/16 at 08:30 Potassium Chloride 250 ml @ 62.5 mls/hr ONCE ONCE IVPB Last administered on 14:57; Admin Dose 62.5 MLS/HR; Start 07/20/16 at 13:15; Stop 07/20/16 at 17:14 Potassium Chloride 250 ml @ 62.5 mls/hr ONCE ONCE IVPB ; Start 07/21/16 at 13: 00; Stop 07/21/16 at 16:59 Potassium Chloride (KCl 40 MEQ/250 ML NS) 250 ml @ 62.5 mls/hr ONCE ONCE IVPB ; Start 07/22/16 at 12:00; Stop 07/22/16 at 15:59 BRENT AUSTIN NP Jul 20, 2016 15:14
[2016-07-20] MEDS: DEXTROSE 5% IVPB SCH (17:30)
[2016-07-20] MEDS: FILGRASTIM IVPB SCH (17:30)
[2016-07-20 21:24] VITALS: BP 129/80; PULSE 106; RESP 18
[2016-07-20] MEDS: LORAZEPAM 2 MG INJ IV PRN (23:49)
[2016-07-21] MEDS: ALBUTEROL/IPRATROPIUM (NEB) 3 ML AMP HHN SCH ×4 (01:21→20:25)
[2016-07-21 05:25] LABS: HEMATOCRIT 22.1 % (37.0-47.0); HEMOGLOBIN 7.9 g/dl (12.0-16.0); LYMPHOCYTES # 0.3 10^3/ul (0.8-2.9); LYMPHOCYTES % 2.8 % (15.0-51.0); MEAN CORPUSCULAR HEMOGLOBIN 29.7 pg (29.0-33.0); MEAN CORPUSCULAR HGB CONC 35.7 g/dl (32.0-37.0); MEAN CORPUSCULAR VOLUME 83.4 fl (82.0-101.0); MEAN PLATELET VOLUME 8.6 fl (7.4-10.4); MONOCYTES % 10.9 % (0.0-11.0); NEUTROPHIL # 7.8 10^3/ul (1.6-7.5); NEUTROPHILS % 86.3 % (39.0-77.0); PLATELET COUNT 61 10^3/UL (140-440); RED BLOOD COUNT 2.65 10^6/ul (4.20-5.40); RED CELL DISTRIBUTION WIDTH 14.2 % (11.5-14.5); UNCORRECTED WBC 9.1 10^3/ul (4.8-10.8); WHITE BLOOD COUNT 9.1 10^3/ul (4.8-10.8)
[2016-07-21 05:49] LABS: POTASSIUM 3.3 mmol/L (3.5-5.1)
[2016-07-21 05:51] LABS: CREATININE 0.35 mg/dl (0.44-1.00)
[2016-07-21 05:52] LABS: CALCIUM 8.9 mg/dl (8.4-10.2)
[2016-07-21 05:54] LABS: CONDITION 1; LH ANALYZER COMMENTS 1; SUSPECT 1
[2016-07-21] MEDS: PANTOPRAZOLE 40 MG INJ IV SCH (06:20)
[2016-07-21] MEDS: ONDANSETRON INJ 8 MG in SOD CHLORIDE 0.9% 50 ML IV PRN ×2 (06:22→20:23)
[2016-07-21] MEDS: LEVOTHYROXINE 100 MCG TAB PO SCH (06:23)
[2016-07-21 08:34] VITALS: BP 113/58; RESP 20
[2016-07-21] MEDS: OCULAR LUBRICANT 3.5 GM OPH OINT BOTH EYES SCH (09:00)
[2016-07-21] MEDS: SOD CHLORIDE 0.9% 1,000 ML IV SCH ×2 (09:00→19:00)
[2016-07-21] MEDS: COLLAGENASE 30 GM TUBE TOP SCH (09:00)
[2016-07-21] MEDS: GABAPENTIN 100 MG CAP PO SCH ×3 (09:00→21:17)
[2016-07-21] MEDS: METOCLOPRAMIDE 10 MG INJ IV PRN (09:39)
[2016-07-21] MEDS: LACTOBACILLUS CHEW TAB PO SCH ×2 (09:39→21:17)
[2016-07-21] MEDS: FLUCONAZOLE 100 MG TAB PO SCH (09:39)
[2016-07-21] MEDS: ALLOPURINOL 300 MG TAB PO SCH (09:39)
[2016-07-21] MEDS: NYSTATIN SUSP 5 ML CUP PO SCH ×4 (09:39→21:17)
[2016-07-21] MEDS: ACYCLOVIR 400 MG TAB PO SCH ×2 (09:39→21:17)
[2016-07-21] MEDS: ARTIFICIAL TEARS 15 ML OPH BOTH EYES SCH ×4 (09:40→21:17)
[2016-07-21] MEDS ORDERED: POTASSIUM CHLORIDE 250 ML IVPB ONE ×2 (12:00→13:00)
--- NOTE | 2016-07-21 12:19 | CONS ---
Date/Time of Note Date/Time of Note DATE: 07/21/16 TIME: 12:18 Assessment/Plan Assessment/Plan Chief Complaint/Hosp Course Subjective: No acute events per report, sleeping, no fevers, nad INDWELLING: Trach, PICC. ANTIMICROBIALS: 1. Diflucan. 2. Acyclovir. MICROBIOLOGY: Urine culture repeated on July 10 came back negative. PHYSICAL EXAMINATION: GENERAL: Fragile, middle-aged woman who is alert, in no distress. HEENT: Head atraumatic, normocephalic. Sclerae anicteric. Buccal mucosa pink. NECK: Supple. Tracheostomy present. CHEST: Rise symmetrical. Breath sounds clear. HEART: S1, S2. ABDOMEN: Soft, bowel tones present. EXTREMITIES: Without cyanosis. Trace ankle edema. ASSESSMENT: 1. Grade IIIA Burkitt lymphoma, going through chemotherapy cycles. 2. On/off cough==>resolved, no evidence for PNA per cxr. 3. Status post neutropenic fevers. 4. Methicillin resistant Staphylococcus aureus positive sputum. 5. Status post Pseudomonas aeruginosa urinary tract infection. 6. Status post tracheostomy secondary to neck mass with respiratory compromise. PLAN: The patient remains stable. Continue present care. Follow oncology recommendations. Panculture p.r.n. DW staff Problems: Consultation Date/Type/Reason Admit Date/Time Jun 02, 2016 at 15:10 Initial Consult Date 06/02/16 Type of Consultation: ID Referring Provider: TELLY SOLANO MD Exam/Review of Systems Vital Signs Vitals Vital Signs Date Time Temp Pulse Resp B/P Pulse Ox O2 Delivery O2 Flow Rate FiO2 07/21/16 08:34 98.8 106 20 113/58 97 07/21/16 07:50 Aerosol 5.0 28 Intake and Output 07/20/16 07/20/16 07/21/16 15:00 23:00 07:00 Intake Total 450 ml 400 ml Balance 450 ml 400 ml Results Result Diagram: 07/21/16 0428 07/21/16 0428 Results 24 hrs Laboratory Tests Test 07/21/16 04:28 Anion Gap 11 Basophils # 0.0 Basophils % 0.0 Blood Morphology Comment Blood Urea Nitrogen 3 L Calcium Level 8.9 Carbon Dioxide Level 28 Chloride Level 105 Creatinine 0.35 L Eosinophils # 0.0 Eosinophils % 0.0 Glucose Level 83 Hematocrit 22.1 L Hemoglobin 7.9 L Lymphocytes # 0.3 L Lymphocytes % 2.8 L Mean Corpuscular Hemoglobin 29.7 Mean Corpuscular Hemoglobin Concent 35.7 Mean Corpuscular Volume 83.4 Mean Platelet Volume 8.6 Monocytes # 1.0 H Monocytes % 10.9 Neutrophils # 7.8 H Neutrophils % 86.3 H Nucleated Red Blood Cells # 0.0 Nucleated Red Blood Cells % 0.0 Platelet Count 61 #L Potassium Level 3.3 L Red Blood Count 2.65 L Red Cell Distribution Width 14.2 Sodium Level 141 White Blood Count 9.1 # Medications Medications Current Medications Acyclovir (Zovirax) 400 mg BID PO Last administered on 07/21/16 09:39; Admin Dose 400 MG; Start 06/02/16 at 14:30 Diphenhydramine HCl (Benadryl) 25 mg Q4H PRN IV ALLERGIC REACTION Last administered on 06/06/16at 20:26; Admin Dose 25 MG; Start 06/02/16 at 18:30 Dexamethasone 10 mg 10 mg Q4H PRN IV ALLERGIC REACTION; Start 06/02/16 at 18: 30 Ondansetron HCl/ Sodium Chloride (Zofran Inj/NS) 54 ml @ 216 mls/hr Q6H PRN IV NAUSEA AND/OR VOMITING Last administered on 07/21/16 06:22; Admin Dose 216 MLS/HR; Start 06/02/16 at 18:30 Ondansetron HCl (Zofran Inj) 4 mg Q6H PRN IV NAUSEA AND/OR VOMITING Last administered on 07/19/16 19:19; Admin Dose 4 MG; Start 06/03/16 at 17:00 Acetaminophen (Tylenol Tab) 650 mg Q6H PRN PO PAIN LEVEL 1-3 OR FEVER Last administered on 07/12/16 16:42; Admin Dose 650 MG; Start 06/03/16 at 17:00 Acetaminophen (Tylenol Supp) 650 mg Q6H PRN [place] PAIN LEVEL 1-3 OR FEVER Last administered on 07/15/16 19:50; Admin Dose 650 MG; Start 06/03/16 at 17:00 Docusate Sodium (Colace) 100 mg Q12H PRN PO CONSTIPATION Last administered on 11:02; Admin Dose 100 MG; Start 06/03/16 at 17:00 Magnesium Hydroxide (Milk Of Mag) 30 ml DAILY PRN PO CONSTIPATION Last administered on 06/20/16 06:13; Admin Dose 30 ML; Start 06/03/16 at 17:00 Bisacodyl (Dulcolax) 5 mg DAILY PRN PO CONSTIPATION Last administered on 11:02; Admin Dose 5 MG; Start 06/03/16 at 17:00 Bisacodyl (Dulcolax Supp) 10 mg DAILY PRN [place] CONSTIPATION Last administered on 06/21/16 05:18; Admin Dose 10 MG; Start 06/03/16 at 17:00 Sodium Biphosphate/ Sodium Phosphate (Fleet Enema) 133 ml DAILY PRN [place] CONSTIPATION; Start 06/03/16 at 17:00 Enoxaparin Sodium (Lovenox) 30 mg DAILY SC Last administered on 06/12/16 08: 27; Admin Dose 30 MG; Start 06/04/16 at 09:00; Status Future Hold Allopurinol (Zyloprim) 300 mg DAILY PO Last administered on 07/21/16 09:39; Admin Dose 300 MG; Start 06/04/16 at 09:00 Eye Lubricant (Artificial Tears Oph) 2 drop QID BOTH EYES Last administered on 07/21/16 09:40; Admin Dose 2 DROP; Start 06/03/16 at 21:00 Eye Lubricant (Akwa Oint) 1 applic DAILY BOTH EYES Last administered on 09:31; Admin Dose 1 APPLIC; Start 06/04/16 at 09:00 Gabapentin (Neurontin) 200 mg TID PO Last administered on 07/20/16 21:25; Admin Dose 200 MG; Start 06/03/16 at 21:00 Levothyroxine Sodium (Synthroid) 100 mcg DAILY@06 PO Last administered on 06:23; Admin Dose 100 MCG; Start 06/04/16 at 06:00 Pantoprazole (Protonix Iv) 40 mg DAILY@06 IV Last administered on 07/21/16 06: 20; Admin Dose 40 MG; Start 06/09/16 at 06:00 Lorazepam (Ativan) 1 mg Q6H PRN IV AGITATION/ANXIETY Last administered on 23:49; Admin Dose 1 MG; Start 06/08/16 at 18:00 Acetaminophen/ Hydrocodone Bitart ([place] (5/325)) 1 tab Q6H PRN PO PAIN Last administered on 07/20/16 09:30; Admin Dose 1 TAB; Start 06/11/16 at 17:30 Collagenase (Santyl) 1 applic DAILY TOP Last administered on 07/20/16 09:31; Admin Dose 1 APPLIC; Start 06/12/16 at 09:00 Nystatin (Nystatin Susp) 5 ml QID PO Last administered on 07/21/16 09:39; Admin Dose 5 ML; Start 06/18/16 at 17:00 Scopolamine (Transderm-Scop) 1 patch Q72H TRANSDERM Last administered on 21:32; Admin Dose 1 PATCH; Start 06/22/16 at 21:00 Fluconazole 100 mg 100 mg DAILY PO Last administered on 07/21/16 09:39; Admin Dose 100 MG; Start 06/28/16 at 09:00 Sodium Chloride (NS) 1,000 ml @ 100 mls/hr Q10H IV Last administered on 11:25; Admin Dose 100 MLS/HR; Start 07/01/16 at 19:00 Lactobacillus Acidoph/Bulgaricus (Floranex) 1 tab BID PO Last administered on 09:39; Admin Dose 1 TAB; Start 07/01/16 at 21:00 Ibuprofen 600 mg 600 mg TID PRN PO FEVER Last administered on 07/04/16 01:29; Admin Dose 600 MG; Start 07/03/16 at 19:30 Filgrastim/ Dextrose (Neupogen/D5W) 51.6 ml @ 103.2 mls/ hr DAILY@17 IVPB Last administered on 07/20/16 17:30; Admin Dose 103.2 MLS/HR; Start 07/14/16 at 17:00 Metoclopramide HCl 10 mg 10 mg Q6H PRN IV NAUSEA Last administered on 09:39; Admin Dose 10 MG; Start 07/16/16 at 08:30 Potassium Chloride 250 ml @ 62.5 mls/hr ONCE ONCE IVPB ; Start 07/21/16 at 13: 00; Stop 07/21/16 at 16:59 Potassium Chloride (KCl 40 MEQ/250 ML NS) 250 ml @ 62.5 mls/hr ONCE ONCE IVPB ; Start 07/22/16 at 12:00; Stop 07/22/16 at 15:59 RODRÍGUEZ ERAZO NP Jul 21, 2016 12:19
--- NOTE | 2016-07-21 13:43 | CONS ---
Date/Time of Note Date/Time of Note DATE: 07/21/16 TIME: 13:36 Assessment/Plan Assessment/Plan Chief Complaint/Hosp Course 56 yo female with massive neck mass causing tracheal compression and airway compromise s/p tracheostomy placement. 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 Pt was given cycle 1A and 1B of R HyperCVAD but had only a partial response to therapy and severe side effects. We have thus changed her chemotherapy regimen. She is now s/p cycle 1A of R-CODOX-M and has now completed her chemotherapy. Most recent CT neck showed resolution of the mass. . She has since started Cycle 1B and is receiving R-IVAC. She is currently pancytopenic and transfusion dependant Problems: Additional Assessment/Plan # Burkitt's lymphoma - currently day 17 cycle 1B R -IVAC. chemotherapy regimen is as follows Part 2: R-IVAC Rituximab (Rituxan) 375 mg/m2 IV once on day 1 Ifosfamide (Ifex) 1500 mg/m2 IV over 2 hours once per day on days 1 to 5 Etoposide (Vepesid) 60 mg/m2 IV over 1 hour once per day on days 1 to 5 Cytarabine (Cytosar) 2 g/m2 IV over 3 hours Q12H on days 1 & 2 (4 doses total) Mesna (Mesnex) 300 mg/m2 (mixed with Ifosfamide (Ifex)) , then 300mg/m2 IV every four hours x 2, on days 1 to 5 #Neck mass with trach in place -now that patient is not longer neutropenic and counts are stable, will ask pulmonary about removing the trach # Neutropenic fevers -appreciate ID recs. continue meropenem and vancomycin. ANC rising appropriately -f/u blood and urine cultures -ANC ok, can dc neupogen # Supportive Care and prophylactic meds -Started Acyclovir 400mg BID -fluconazole 100mg q day -Neupogen 300mcg q day day after chemotherapy is completed -Zofran ordered prn nausea #Expected Pancytopenia -keep Hg> 8 and platelets > 10. . patient remains TRANSFUSION DEPENDANT. will transfuse 1 unit of PRBCs today # Elevated AST and ALT, likely related to methotrexate. now resolved Approximately 40 min were spent at patient's bedside and in coordination of her care Consultation Date/Type/Reason Admit Date/Time Jun 02, 2016 at 15:10 Initial Consult Date 06/02/16 Type of Consultation: Heme onc Reason for Consultation burkitt's lymphoma Referring Provider: TELLY SOLANO MD 24 HR Interval Summary Free Text/Dictation pt feels well. wants the trach out Exam/Review of Systems Vital Signs Vitals Vital Signs Date Time Temp Pulse Resp B/P Pulse Ox O2 Delivery O2 Flow Rate FiO2 07/21/16 08:34 98.8 106 20 113/58 97 07/21/16 07:50 Aerosol 5.0 28 Intake and Output 07/20/16 07/20/16 07/21/16 15:00 23:00 07:00 Intake Total 450 ml 400 ml Balance 450 ml 400 ml Exam Constitutional: alert, frail, oriented Psych: depression Head: atraumatic, normocephalic Eyes: nl conjunctiva ENMT: nl external ears & nose, other (trach in place) Neck: non-tender, supple Respiratory: clear to auscultation, normal air movement Cardiovascular: regular rate and rhythm Gastrointestinal: soft Musculoskeletal: nl extremities to inspection, nl gait and stance Extremities: normal pulses 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 Results Result Diagram: 07/21/1642707/21/168 Results 24 hrs Laboratory Tests Test 07/21/16 04:28 Anion Gap 11 Basophils # 0.0 Basophils % 0.0 Blood Morphology Comment Blood Urea Nitrogen 3 L Calcium Level 8.9 Carbon Dioxide Level 28 Chloride Level 105 Creatinine 0.35 L Eosinophils # 0.0 Eosinophils % 0.0 Glucose Level 83 Hematocrit 22.1 L Hemoglobin 7.9 L Lymphocytes # 0.3 L Lymphocytes % 2.8 L Mean Corpuscular Hemoglobin 29.7 Mean Corpuscular Hemoglobin Concent 35.7 Mean Corpuscular Volume 83.4 Mean Platelet Volume 8.6 Monocytes # 1.0 H Monocytes % 10.9 Neutrophils # 7.8 H Neutrophils % 86.3 H Nucleated Red Blood Cells # 0.0 Nucleated Red Blood Cells % 0.0 Platelet Count 61 #L Potassium Level 3.3 L Red Blood Count 2.65 L Red Cell Distribution Width 14.2 Sodium Level 141 White Blood Count 9.1 # Medications Medications Current Medications Acyclovir (Zovirax) 400 mg BID PO Last administered on 07/21/16 09:39; Admin Dose 400 MG; Start 06/02/16 at 14:30 Diphenhydramine HCl (Benadryl) 25 mg Q4H PRN IV ALLERGIC REACTION Last administered on 06/06/16 20:26; Admin Dose 25 MG; Start 06/02/16 at 18:30 Dexamethasone 10 mg 10 mg Q4H PRN IV ALLERGIC REACTION; Start 06/02/16 at 18: 30 Ondansetron HCl/ Sodium Chloride (Zofran Inj/NS) 54 ml @ 216 mls/hr Q6H PRN IV NAUSEA AND/OR VOMITING Last administered on 07/21/16 06:22; Admin Dose 216 MLS/HR; Start 06/02/16 at 18:30 Ondansetron HCl (Zofran Inj) 4 mg Q6H PRN IV NAUSEA AND/OR VOMITING Last administered on 07/19/16 19:19; Admin Dose 4 MG; Start 06/03/16 at 17:00 Acetaminophen (Tylenol Tab) 650 mg Q6H PRN PO PAIN LEVEL 1-3 OR FEVER Last administered on 07/12/16 16:42; Admin Dose 650 MG; Start 06/03/16 at 17:00 Acetaminophen (Tylenol Supp) 650 mg Q6H PRN [place] PAIN LEVEL 1-3 OR FEVER Last administered on 07/15/16 19:50; Admin Dose 650 MG; Start 06/03/16 at 17:00 Docusate Sodium (Colace) 100 mg Q12H PRN PO CONSTIPATION Last administered on 11:02; Admin Dose 100 MG; Start 06/03/16 at 17:00 Magnesium Hydroxide (Milk Of Mag) 30 ml DAILY PRN PO CONSTIPATION Last administered on 06/20/16 06:13; Admin Dose 30 ML; Start 06/03/16 at 17:00 Bisacodyl (Dulcolax) 5 mg DAILY PRN PO CONSTIPATION Last administered on 11:02; Admin Dose 5 MG; Start 06/03/16 at 17:00 Bisacodyl (Dulcolax Supp) 10 mg DAILY PRN [place] CONSTIPATION Last administered on 06/21/16 05:18; Admin Dose 10 MG; Start 06/03/16 at 17:00 Sodium Biphosphate/ Sodium Phosphate (Fleet Enema) 133 ml DAILY PRN [place] CONSTIPATION; Start 06/03/16 at 17:00 Enoxaparin Sodium (Lovenox) 30 mg DAILY SC Last administered on 06/12/16at 08: 27; Admin Dose 30 MG; Start 06/04/16 at 09:00; Status Future Hold Allopurinol (Zyloprim) 300 mg DAILY PO Last administered on 07/21/16 09:39; Admin Dose 300 MG; Start 06/04/16 at 09:00 Eye Lubricant (Artificial Tears Oph) 2 drop QID BOTH EYES Last administered on 07/21/16 09:40; Admin Dose 2 DROP; Start 06/03/16 at 21:00 Eye Lubricant (Akwa Oint) 1 applic DAILY BOTH EYES Last administered on 09:31; Admin Dose 1 APPLIC; Start 06/04/16 at 09:00 Gabapentin (Neurontin) 200 mg TID PO Last administered on 07/20/16 21:25; Admin Dose 200 MG; Start 06/03/16 at 21:00 Levothyroxine Sodium (Synthroid) 100 mcg DAILY@06 PO Last administered on 06:23; Admin Dose 100 MCG; Start 06/04/16 at 06:00 Pantoprazole (Protonix Iv) 40 mg DAILY@06 IV Last administered on 07/21/16 06: 20; Admin Dose 40 MG; Start 06/09/16 at 06:00 Lorazepam (Ativan) 1 mg Q6H PRN IV AGITATION/ANXIETY Last administered on 23:49; Admin Dose 1 MG; Start 06/08/16 at 18:00 Acetaminophen/ Hydrocodone Bitart ([place] (5/325)) 1 tab Q6H PRN PO PAIN Last administered on 07/20/16 09:30; Admin Dose 1 TAB; Start 06/11/16 at 17:30 Collagenase (Santyl) 1 applic DAILY TOP Last administered on 07/20/16 09:31; Admin Dose 1 APPLIC; Start 06/12/16 at 09:00 Nystatin (Nystatin Susp) 5 ml QID PO Last administered on 07/21/16 09:39; Admin Dose 5 ML; Start 06/18/16 at 17:00 Scopolamine (Transderm-Scop) 1 patch Q72H TRANSDERM Last administered on 21:32; Admin Dose 1 PATCH; Start 06/22/16 at 21:00 Fluconazole 100 mg 100 mg DAILY PO Last administered on 07/21/16 09:39; Admin Dose 100 MG; Start 06/28/16 at 09:00 Sodium Chloride (NS) 1,000 ml @ 100 mls/hr Q10H IV Last administered on 11:25; Admin Dose 100 MLS/HR; Start 07/01/16 at 19:00 Lactobacillus Acidoph/Bulgaricus (Floranex) 1 tab BID PO Last administered on 09:39; Admin Dose 1 TAB; Start 07/01/16 at 21:00 Ibuprofen 600 mg 600 mg TID PRN PO FEVER Last administered on 07/04/16 01:29; Admin Dose 600 MG; Start 07/03/16 at 19:30 Filgrastim/ Dextrose (Neupogen/D5W) 51.6 ml @ 103.2 mls/ hr DAILY@17 IVPB Last administered on 07/20/16 17:30; Admin Dose 103.2 MLS/HR; Start 07/14/16 at 17:00 Metoclopramide HCl 10 mg 10 mg Q6H PRN IV NAUSEA Last administered on 09:39; Admin Dose 10 MG; Start 07/16/16 at 08:30 Potassium Chloride 250 ml @ 62.5 mls/hr ONCE ONCE IVPB Last administered on 13:14; Admin Dose 62.5 MLS/HR; Start 07/21/16 at 13:00; Stop 07/21/16 at 16:59 Potassium Chloride (KCl 40 MEQ/250 ML NS) 250 ml @ 62.5 mls/hr ONCE ONCE IVPB ; Start 07/22/16 at 12:00; Stop 07/22/16 at 15:59 CHANDRIKA MERLOS M.D. Jul 21, 2016 13:43
[2016-07-21] MEDS: FILGRASTIM IVPB SCH (18:41)
[2016-07-21] MEDS: DEXTROSE 5% IVPB SCH (18:41)
[2016-07-21 21:16] VITALS: BP 132/60; RESP 20
[2016-07-21 22:45] VITALS: BP 131/65; PULSE 105; RESP 20
[2016-07-21 23:00] VITALS: BP 135/63; PULSE 99; RESP 18
[2016-07-21 23:15] VITALS: BP 128/68; PULSE 98; RESP 19
[2016-07-22 00:15] VITALS: BP 126/59; PULSE 97; RESP 19
[2016-07-22 00:55] VITALS: BP 137/86; PULSE 97; RESP 19
[2016-07-22] MEDS: ALBUTEROL/IPRATROPIUM (NEB) 3 ML AMP HHN SCH ×3 (01:29→20:48)
[2016-07-22] MEDS: METOCLOPRAMIDE 10 MG INJ IV PRN (01:47)
[2016-07-22] MEDS: LORAZEPAM 2 MG INJ IV PRN (01:50)
[2016-07-22 02:00] VITALS: BP 136/78; PULSE 90
[2016-07-22] MEDS: SOD CHLORIDE 0.9% 1,000 ML IV SCH (05:00)
[2016-07-22] MEDS: PANTOPRAZOLE 40 MG INJ IV SCH (05:43)
[2016-07-22] MEDS: LEVOTHYROXINE 100 MCG TAB PO SCH (05:43)
[2016-07-22 08:16] VITALS: BP 117/60; RESP 20
[2016-07-22 08:22] LABS: POTASSIUM 3.4 mmol/L (3.5-5.1)
[2016-07-22 08:24] LABS: ALBUMIN/GLOBULIN RATIO 1.3; BILIRUBIN,INDIRECT 0.4 mg/dl (0-1.1); BILIRUBIN,TOTAL 0.4 mg/dl (0.2-1.3); CALCIUM 8.8 mg/dl (8.4-10.2); CREATININE 0.35 mg/dl (0.44-1.00); HEMATOCRIT 27.1 % (37.0-47.0); HEMOGLOBIN 9.3 g/dl (12.0-16.0); LYMPHOCYTES # 0.5 10^3/ul (0.8-2.9); LYMPHOCYTES % 3.5 % (15.0-51.0); MEAN CORPUSCULAR HEMOGLOBIN 29.8 pg (29.0-33.0); MEAN CORPUSCULAR HGB CONC 34.1 g/dl (32.0-37.0); MEAN CORPUSCULAR VOLUME 87.5 fl (82.0-101.0); MEAN PLATELET VOLUME 8.6 fl (7.4-10.4); MONOCYTE # 0.6 10^3/ul (0.3-0.9); MONOCYTES % 4.4 % (0.0-11.0); NEUTROPHILS % 92.1 % (39.0-77.0); PLATELET COUNT 55 10^3/UL (140-440); RED CELL DISTRIBUTION WIDTH 14.4 % (11.5-14.5); TOTAL PROTEIN 5.3 g/dl (6.1-8.1); UNCORRECTED WBC 14.2 10^3/ul (4.8-10.8); WHITE BLOOD COUNT 14.2 10^3/ul (4.8-10.8)
[2016-07-22 08:49] LABS: CONDITION 1; LH ANALYZER COMMENTS 1; SUSPECT 1
[2016-07-22] MEDS: FLUCONAZOLE 100 MG TAB PO SCH (09:17)
[2016-07-22] MEDS: GABAPENTIN 100 MG CAP PO SCH ×3 (09:17→20:58)
[2016-07-22] MEDS: ACYCLOVIR 400 MG TAB PO SCH ×2 (09:17→20:58)
[2016-07-22] MEDS: OCULAR LUBRICANT 3.5 GM OPH OINT BOTH EYES SCH ×2 (09:18→18:01)
[2016-07-22] MEDS: ARTIFICIAL TEARS 15 ML OPH BOTH EYES SCH ×4 (09:18→20:57)
[2016-07-22] MEDS: LACTOBACILLUS CHEW TAB PO SCH ×2 (09:18→20:58)
[2016-07-22] MEDS: NYSTATIN SUSP 5 ML CUP PO SCH ×4 (09:18→20:58)
[2016-07-22] MEDS: COLLAGENASE 30 GM TUBE TOP SCH (09:18)
[2016-07-22] MEDS ORDERED: POTASSIUM CHLORIDE 250 ML IVPB ONE ×2 (12:00→18:30)
--- NOTE | 2016-07-22 12:26 | CONS ---
Date/Time of Note Date/Time of Note DATE: 07/22/16 TIME: 12:22 Assessment/Plan Assessment/Plan Chief Complaint/Hosp Course 56 yo female with massive neck mass causing tracheal compression and airway compromise s/p tracheostomy placement. 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 Pt was given cycle 1A and 1B of R HyperCVAD but had only a partial response to therapy and severe side effects. We have thus changed her chemotherapy regimen. She is now s/p cycle 1B of R-IVACand has now completed her chemotherapy. Most recent CT neck showed resolution of the mass. . Problems: Additional Assessment/Plan # Burkitt's lymphoma - currently day 18 cycle 1B R -IVAC. chemotherapy regimen is as follows Part 2: R-IVAC Rituximab (Rituxan) 375 mg/m2 IV once on day 1 Ifosfamide (Ifex) 1500 mg/m2 IV over 2 hours once per day on days 1 to 5 Etoposide (Vepesid) 60 mg/m2 IV over 1 hour once per day on days 1 to 5 Cytarabine (Cytosar) 2 g/m2 IV over 3 hours Q12H on days 1 & 2 (4 doses total) Mes[place] (Mesnex) 300 mg/m2 (mixed with Ifosfamide (Ifex)) , then 300mg/m2 IV every four hours x 2, on days 1 to 5 #Neck mass with trach in place -now that patient is not longer neutropenic and counts are stable, -pulmonary to evaluate trach to see if it can be removed # Neutropenic fevers -appreciate ID recs. continue meropenem and vancomycin. ANC rising appropriately -f/u blood and urine cultures -ANC ok, can dc neupogen # Supportive Care and prophylactic meds -Started Acyclovir 400mg BID -fluconazole 100mg q day -Neupogen 300mcg q day day after chemotherapy is completed -Zofran ordered prn nausea #Expected Pancytopenia -keep Hg> 8 and platelets > 10. . patient remains TRANSFUSION DEPENDANT. s/p blood transfusion yesterday. patient remains transfusion dependant # Elevated AST and ALT, likely related to methotrexate. now resolved Approximately 40 min were spent at patient's bedside and in coordination of her care Consultation Date/Type/Reason Admit Date/Time Jun 02, 2016 at 15:10 Initial Consult Date 06/02/16 Type of Consultation: Heme onc Reason for Consultation burkitt's lymphoma Referring Provider: TELLY SOLANO MD 24 HR Interval Summary Free Text/Dictation doing well. ambulating. has more energy after her blood transfusion Exam/Review of Systems Vital Signs Vitals Vital Signs Date Time Temp Pulse Resp B/P Pulse Ox O2 Delivery O2 Flow Rate FiO2 07/22/16 09:44 94 29 98 T Tube 5.0 28 07/22/16 08:16 97.8 117/60 Intake and Output 07/21/16 07/21/16 07/22/16 15:00 23:00 07:00 Intake Total 300 ml 724 ml Balance 300 ml 724 ml Exam Constitutional: alert Psych: nl mood/affect, no complaints Head: normocephalic Eyes: EOMI, nl conjunctiva ENMT: nl external ears & nose Neck: other (trach in place) Respiratory: clear to auscultation, normal air movement Cardiovascular: nl pulses, regular rate and rhythm Gastrointestinal: soft Musculoskeletal: nl extremities to inspection, nl gait and stance Extremities: normal pulses 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 Results Result Diagram: 07/22/1630 07/22/16 0730 Results 24 hrs Laboratory Tests Test 07/22/16 07:30 Alanine Aminotransferase (ALT/SGPT) 71 H Albumin 3.0 L Albumin/Globulin Ratio 1.30 Alkaline Phosphatase 146 H Anion Gap 9 Aspartate Amino Transf (AST/SGOT) 50 H Basophils # 0.0 Basophils % 0.0 Blood Morphology Comment Blood Urea Nitrogen 3 L Calcium Level 8.8 Carbon Dioxide Level 30 Chloride Level 104 Creatinine 0.35 L Direct Bilirubin 0.00 Eosinophils # 0.0 Eosinophils % 0.0 Globulin 2.30 Glucose Level 89 Hematocrit 27.1 #L Hemoglobin 9.3 L Indirect Bilirubin 0.4 Lymphocytes # 0.5 L Lymphocytes % 3.5 L Mean Corpuscular Hemoglobin 29.8 Mean Corpuscular Hemoglobin Concent 34.1 Mean Corpuscular Volume 87.5 Mean Platelet Volume 8.6 Monocytes # 0.6 Monocytes % 4.4 Neutrophils # 13.0 H Neutrophils % 92.1 H Nucleated Red Blood Cells # 0.0 Nucleated Red Blood Cells % 0.0 Platelet Count 55 L Potassium Level 3.4 L Red Blood Count 3.10 L Red Cell Distribution Width 14.4 Sodium Level 140 Total Bilirubin 0.4 Total Protein 5.3 L White Blood Count 14.2 #H Medications Medications Current Medications Acyclovir (Zovirax) 400 mg BID PO Last administered on 07/22/16 09:17; Admin Dose 400 MG; Start 06/02/16 at 14:30 Diphenhydramine HCl (Benadryl) 25 mg Q4H PRN IV ALLERGIC REACTION Last administered on 06/06/16 20:26; Admin Dose 25 MG; Start 06/02/16 at 18:30 Dexamethasone 10 mg 10 mg Q4H PRN IV ALLERGIC REACTION; Start 06/02/16 at 18: 30 Ondansetron HCl/ Sodium Chloride (Zofran Inj/NS) 54 ml @ 216 mls/hr Q6H PRN IV NAUSEA AND/OR VOMITING Last administered on 07/21/16 20:23; Admin Dose 216 MLS/HR; Start 06/02/16 at 18:30 Ondansetron HCl (Zofran Inj) 4 mg Q6H PRN IV NAUSEA AND/OR VOMITING Last administered on 07/19/16 19:19; Admin Dose 4 MG; Start 06/03/16 at 17:00 Acetaminophen (Tylenol Tab) 650 mg Q6H PRN PO PAIN LEVEL 1-3 OR FEVER Last administered on 07/12/16 16:42; Admin Dose 650 MG; Start 06/03/16 at 17:00 Acetaminophen (Tylenol Supp) 650 mg Q6H PRN [place] PAIN LEVEL 1-3 OR FEVER Last administered on 07/15/16 19:50; Admin Dose 650 MG; Start 06/03/16 at 17:00 Docusate Sodium (Colace) 100 mg Q12H PRN PO CONSTIPATION Last administered on 11:02; Admin Dose 100 MG; Start 06/03/16 at 17:00 Magnesium Hydroxide (Milk Of Mag) 30 ml DAILY PRN PO CONSTIPATION Last administered on 06/20/16 06:13; Admin Dose 30 ML; Start 06/03/16 at 17:00 Bisacodyl (Dulcolax) 5 mg DAILY PRN PO CONSTIPATION Last administered on 11:02; Admin Dose 5 MG; Start 06/03/16 at 17:00 Bisacodyl (Dulcolax Supp) 10 mg DAILY PRN [place] CONSTIPATION Last administered on 06/21/16 05:18; Admin Dose 10 MG; Start 06/03/16 at 17:00 Sodium Biphosphate/ Sodium Phosphate (Fleet Enema) 133 ml DAILY PRN [place] CONSTIPATION; Start 06/03/16 at 17:00 Enoxaparin Sodium (Lovenox) 30 mg DAILY SC Last administered on 06/12/16at 08: 27; Admin Dose 30 MG; Start 06/04/16 at 09:00; Status Future Hold Eye Lubricant (Artificial Tears Oph) 2 drop QID BOTH EYES Last administered on 07/22/16 09:18; Admin Dose 2 DROP; Start 06/03/16 at 21:00 Eye Lubricant (Akwa Oint) 1 applic DAILY BOTH EYES Last administered on 09:18; Admin Dose 1 APPLIC; Start 06/04/16 at 09:00 Gabapentin (Neurontin) 200 mg TID PO Last administered on 07/22/16 09:17; Admin Dose 200 MG; Start 06/03/16 at 21:00 Levothyroxine Sodium (Synthroid) 100 mcg DAILY@06 PO Last administered on 05:43; Admin Dose 100 MCG; Start 06/04/16 at 06:00 Pantoprazole (Protonix Iv) 40 mg DAILY@06 IV Last administered on 07/22/16 05: 43; Admin Dose 40 MG; Start 06/09/16 at 06:00 Lorazepam (Ativan) 1 mg Q6H PRN IV AGITATION/ANXIETY Last administered on 01:50; Admin Dose 1 MG; Start 06/08/16 at 18:00 Acetaminophen/ Hydrocodone Bitart ([place] (5/325)) 1 tab Q6H PRN PO PAIN Last administered on 07/20/16 09:30; Admin Dose 1 TAB; Start 06/11/16 at 17:30 Collagenase (Santyl) 1 applic DAILY TOP Last administered on 07/22/16 09:18; Admin Dose 1 APPLIC; Start 06/12/16 at 09:00 Nystatin (Nystatin Susp) 5 ml QID PO Last administered on 07/22/16 09:18; Admin Dose 5 ML; Start 06/18/16 at 17:00 Scopolamine (Transderm-Scop) 1 patch Q72H TRANSDERM Last administered on 21:32; Admin Dose 1 PATCH; Start 06/22/16 at 21:00 Fluconazole 100 mg 100 mg DAILY PO Last administered on 07/22/16 09:17; Admin Dose 100 MG; Start 06/28/16 at 09:00 Sodium Chloride (NS) 1,000 ml @ 100 mls/hr Q10H IV Last administered on 11:25; Admin Dose 100 MLS/HR; Start 07/01/16 at 19:00 Lactobacillus Acidoph/Bulgaricus (Floranex) 1 tab BID PO Last administered on 09:18; Admin Dose 1 TAB; Start 07/01/16 at 21:00 Ibuprofen 600 mg 600 mg TID PRN PO FEVER Last administered on 07/04/16 01:29; Admin Dose 600 MG; Start 07/03/16 at 19:30 Filgrastim/ Dextrose (Neupogen/D5W) 51.6 ml @ 103.2 mls/ hr DAILY@17 IVPB Last administered on 07/21/16 18:41; Admin Dose 103.2 MLS/HR; Start 07/14/16 at 17:00 Metoclopramide HCl 10 mg 10 mg Q6H PRN IV NAUSEA Last administered on 01:47; Admin Dose 10 MG; Start 07/16/16 at 08:30 Potassium Chloride (KCl 40 MEQ/250 ML NS) 250 ml @ 62.5 mls/hr ONCE ONCE IVPB ; Start 07/22/16 at 12:00; Stop 07/22/16 at 15:59 CHANDRIKA MERLOS M.D. Jul 22, 2016 12:26
--- NOTE | 2016-07-22 13:52 | CONS ---
Date/Time of Note Date/Time of Note DATE: 07/22/16 TIME: 13:51 Assessment/Plan Assessment/Plan Chief Complaint/Hosp Course Subjective: No acute events per report, alert, feels good, eating lunch, no fevers,nad INDWELLING: Trach, PICC. ANTIMICROBIALS: 1. Diflucan. 2. Acyclovir. MICROBIOLOGY: Urine culture repeated on July 10 came back negative. PHYSICAL EXAMINATION: GENERAL: Fragile, middle-aged woman who is alert, in no distress. HEENT: Head atraumatic, normocephalic. Sclerae anicteric. Buccal mucosa pink. NECK: Supple. Tracheostomy present. CHEST: Rise symmetrical. Breath sounds clear. HEART: S1, S2. ABDOMEN: Soft, bowel tones present. EXTREMITIES: Without cyanosis. Trace ankle edema. ASSESSMENT: 1. Grade IIIA Burkitt lymphoma, going through chemotherapy cycles. 2. On/off cough==>resolved, no evidence for PNA per cxr. 3. Status post neutropenic fevers. 4. Methicillin resistant Staphylococcus aureus positive sputum. 5. Status post Pseudomonas aeruginosa urinary tract infection. 6. Status post tracheostomy secondary to neck mass with respiratory compromise. PLAN: The patient remains stable. Continue present care. Follow oncology recommendations. Panculture p.r.n. [facility] staff Problems: Consultation Date/Type/Reason Admit Date/Time Jun 02, 2016 at 15:10 Initial Consult Date 06/02/16 Type of Consultation: id Referring Provider: TELLY SOLANO MD Exam/Review of Systems Vital Signs Vitals Vital Signs Date Time Temp Pulse Resp B/P Pulse Ox O2 Delivery O2 Flow Rate FiO2 07/22/16 09:44 94 29 98 T Tube 5.0 28 07/22/16 08:16 97.8 117/60 Intake and Output 07/21/16 07/21/16 07/22/16 15:00 23:00 07:00 Intake Total 300 ml 724 ml Balance 300 ml 724 ml Results Result Diagram: 07/22/16 0730 07/22/16 0730 Results 24 hrs Laboratory Tests Test 07/22/16 07:30 Alanine Aminotransferase (ALT/SGPT) 71 H Albumin 3.0 L Albumin/Globulin Ratio 1.30 Alkaline Phosphatase 146 H Anion Gap 9 Aspartate Amino Transf (AST/SGOT) 50 H Basophils # 0.0 Basophils % 0.0 Blood Morphology Comment Blood Urea Nitrogen 3 L Calcium Level 8.8 Carbon Dioxide Level 30 Chloride Level 104 Creatinine 0.35 L Direct Bilirubin 0.00 Eosinophils # 0.0 Eosinophils % 0.0 Globulin 2.30 Glucose Level 89 Hematocrit 27.1 #L Hemoglobin 9.3 L Indirect Bilirubin 0.4 Lymphocytes # 0.5 L Lymphocytes % 3.5 L Mean Corpuscular Hemoglobin 29.8 Mean Corpuscular Hemoglobin Concent 34.1 Mean Corpuscular Volume 87.5 Mean Platelet Volume 8.6 Monocytes # 0.6 Monocytes % 4.4 Neutrophils # 13.0 H Neutrophils % 92.1 H Nucleated Red Blood Cells # 0.0 Nucleated Red Blood Cells % 0.0 Platelet Count 55 L Potassium Level 3.4 L Red Blood Count 3.10 L Red Cell Distribution Width 14.4 Sodium Level 140 Total Bilirubin 0.4 Total Protein 5.3 L White Blood Count 14.2 #H Medications Medications Current Medications Acyclovir (Zovirax) 400 mg BID PO Last administered on 07/22/16 09:17; Admin Dose 400 MG; Start 06/02/16 at 14:30 Diphenhydramine HCl (Benadryl) 25 mg Q4H PRN IV ALLERGIC REACTION Last administered on 06/06/16at 20:26; Admin Dose 25 MG; Start 06/02/16 at 18:30 Dexamethasone 10 mg 10 mg Q4H PRN IV ALLERGIC REACTION; Start 06/02/16 at 18: 30 Ondansetron HCl/ Sodium Chloride (Zofran Inj/NS) 54 ml @ 216 mls/hr Q6H PRN IV NAUSEA AND/OR VOMITING Last administered on 07/21/16 20:23; Admin Dose 216 MLS/HR; Start 06/02/16 at 18:30 Ondansetron HCl (Zofran Inj) 4 mg Q6H PRN IV NAUSEA AND/OR VOMITING Last administered on 07/19/16 19:19; Admin Dose 4 MG; Start 06/03/16 at 17:00 Acetaminophen (Tylenol Tab) 650 mg Q6H PRN PO PAIN LEVEL 1-3 OR FEVER Last administered on 07/12/16 16:42; Admin Dose 650 MG; Start 06/03/16 at 17:00 Acetaminophen (Tylenol Supp) 650 mg Q6H PRN [place] PAIN LEVEL 1-3 OR FEVER Last administered on 07/15/16 19:50; Admin Dose 650 MG; Start 06/03/16 at 17:00 Docusate Sodium (Colace) 100 mg Q12H PRN PO CONSTIPATION Last administered on 11:02; Admin Dose 100 MG; Start 06/03/16 at 17:00 Magnesium Hydroxide (Milk Of Mag) 30 ml DAILY PRN PO CONSTIPATION Last administered on 06/20/16 06:13; Admin Dose 30 ML; Start 06/03/16 at 17:00 Bisacodyl (Dulcolax) 5 mg DAILY PRN PO CONSTIPATION Last administered on 11:02; Admin Dose 5 MG; Start 06/03/16 at 17:00 Bisacodyl (Dulcolax Supp) 10 mg DAILY PRN [place] CONSTIPATION Last administered on 06/21/16 05:18; Admin Dose 10 MG; Start 06/03/16 at 17:00 Sodium Biphosphate/ Sodium Phosphate (Fleet Enema) 133 ml DAILY PRN [place] CONSTIPATION; Start 06/03/16 at 17:00 Enoxaparin Sodium (Lovenox) 30 mg DAILY SC Last administered on 06/12/16 08: 27; Admin Dose 30 MG; Start 06/04/16 at 09:00; Status Future Hold Eye Lubricant (Artificial Tears Oph) 2 drop QID BOTH EYES Last administered on 07/22/16 12:25; Admin Dose 2 DROP; Start 06/03/16 at 21:00 Eye Lubricant (Akwa Oint) 1 applic DAILY BOTH EYES Last administered on 09:18; Admin Dose 1 APPLIC; Start 06/04/16 at 09:00 Gabapentin (Neurontin) 200 mg TID PO Last administered on 07/22/16 12:25; Admin Dose 200 MG; Start 06/03/16 at 21:00 Levothyroxine Sodium (Synthroid) 100 mcg DAILY@06 PO Last administered on 05:43; Admin Dose 100 MCG; Start 06/04/16 at 06:00 Pantoprazole (Protonix Iv) 40 mg DAILY@06 IV Last administered on 07/22/16 05: 43; Admin Dose 40 MG; Start 06/09/16 at 06:00 Lorazepam (Ativan) 1 mg Q6H PRN IV AGITATION/ANXIETY Last administered on 01:50; Admin Dose 1 MG; Start 06/08/16 at 18:00 Acetaminophen/ Hydrocodone Bitart ([place] (5/325)) 1 tab Q6H PRN PO PAIN Last administered on 07/20/16 09:30; Admin Dose 1 TAB; Start 06/11/16 at 17:30 Collagenase (Santyl) 1 applic DAILY TOP Last administered on 07/22/16 09:18; Admin Dose 1 APPLIC; Start 06/12/16 at 09:00 Nystatin (Nystatin Susp) 5 ml QID PO Last administered on 07/22/16 12:26; Admin Dose 5 ML; Start 06/18/16 at 17:00 Scopolamine (Transderm-Scop) 1 patch Q72H TRANSDERM Last administered on 21:32; Admin Dose 1 PATCH; Start 06/22/16 at 21:00 Fluconazole 100 mg 100 mg DAILY PO Last administered on 07/22/16 09:17; Admin Dose 100 MG; Start 06/28/16 at 09:00 Sodium Chloride (NS) 1,000 ml @ 100 mls/hr Q10H IV Last administered on 11:25; Admin Dose 100 MLS/HR; Start 07/01/16 at 19:00 Lactobacillus Acidoph/Bulgaricus (Floranex) 1 tab BID PO Last administered on 09:18; Admin Dose 1 TAB; Start 07/01/16 at 21:00 Ibuprofen 600 mg 600 mg TID PRN PO FEVER Last administered on 07/04/16 01:29; Admin Dose 600 MG; Start 07/03/16 at 19:30 Filgrastim/ Dextrose (Neupogen/D5W) 51.6 ml @ 103.2 mls/ hr DAILY@17 IVPB Last administered on 07/21/16 18:41; Admin Dose 103.2 MLS/HR; Start 07/14/16 at 17:00 Metoclopramide HCl 10 mg 10 mg Q6H PRN IV NAUSEA Last administered on 01:47; Admin Dose 10 MG; Start 07/16/16 at 08:30 Potassium Chloride (KCl 40 MEQ/250 ML NS) 250 ml @ 62.5 mls/hr ONCE ONCE IVPB Last administered on 07/22/16t 12:25; Admin Dose 62.5 MLS/HR; Start 07/22/16 at 12:00; Stop 07/22/16 at 15:59 RODRÍGUEZ ERAZO NP Jul 22, 2016 13:52
--- NOTE | 2016-07-22 17:27 | PN ---
Date/Time of Note Date/Time of Note DATE: 07/22/16 TIME: 17:26 Assessment/Plan VTE Prophylaxis VTE Prophylaxis Intervention: other Lines/Catheters IV Catheter Type (from Nrsg): PICC Line Central line still needed: Yes Urinary Cath still in place: No Assessment/Plan Chief Complaint/Hosp Course IMPRESSION: The patient has Burkitt's lymphoma HX tracheostomy, status post thyroid mass, pancytopenia, abnormal liver function test. better SEPSIS better gallstone ABN LFT better anemia post chemo HYPOKALEMIA uti pancytopenia better hypokalemia poor po intake KCL PLAN per oncology LABS chemo per dr dang per id kcl Problems: Subjective 24 Hr Interval Summary Cardiovascular: no complaints Gastrointestinal: no complaints Genitourinary: no complaints Musculoskeletal: no complaints Exam/Review of Systems Vital Signs Vitals Vital Signs Date Time Temp Pulse Resp B/P Pulse Ox O2 Delivery O2 Flow Rate FiO2 07/22/16 09:44 94 29 98 T Tube 5.0 28 07/22/16 08:16 97.8 117/60 Intake and Output 07/21/16 07/21/16 07/22/16 15:00 23:00 07:00 Intake Total 300 ml 724 ml Balance 300 ml 724 ml Exam Neck: supple Respiratory: clear to auscultation Cardiovascular: regular rate and rhythm Gastrointestinal: soft Musculoskeletal: nl extremities to inspection Extremities: normal pulses Results Result Diagram: 07/22/1672907/22/16 0730 Results 24 hrs Laboratory Tests Test 07/22/16 07:30 Alanine Aminotransferase (ALT/SGPT) 71 H Albumin 3.0 L Albumin/Globulin Ratio 1.30 Alkaline Phosphatase 146 H Anion Gap 9 Aspartate Amino Transf (AST/SGOT) 50 H Basophils # 0.0 Basophils % 0.0 Blood Morphology Comment Blood Urea Nitrogen 3 L Calcium Level 8.8 Carbon Dioxide Level 30 Chloride Level 104 Creatinine 0.35 L Direct Bilirubin 0.00 Eosinophils # 0.0 Eosinophils % 0.0 Globulin 2.30 Glucose Level 89 Hematocrit 27.1 #L Hemoglobin 9.3 L Indirect Bilirubin 0.4 Lymphocytes # 0.5 L Lymphocytes % 3.5 L Mean Corpuscular Hemoglobin 29.8 Mean Corpuscular Hemoglobin Concent 34.1 Mean Corpuscular Volume 87.5 Mean Platelet Volume 8.6 Monocytes # 0.6 Monocytes % 4.4 Neutrophils # 13.0 H Neutrophils % 92.1 H Nucleated Red Blood Cells # 0.0 Nucleated Red Blood Cells % 0.0 Platelet Count 55 L Potassium Level 3.4 L Red Blood Count 3.10 L Red Cell Distribution Width 14.4 Sodium Level 140 Total Bilirubin 0.4 Total Protein 5.3 L White Blood Count 14.2 #H Medications Medications Current Medications Acyclovir (Zovirax) 400 mg BID PO Last administered on 07/22/16 09:17; Admin Dose 400 MG; Start 06/02/16 at 14:30 Diphenhydramine HCl (Benadryl) 25 mg Q4H PRN IV ALLERGIC REACTION Last administered on 06/06/16 20:26; Admin Dose 25 MG; Start 06/02/16 at 18:30 Dexamethasone 10 mg 10 mg Q4H PRN IV ALLERGIC REACTION; Start 06/02/16 at 18: 30 Ondansetron HCl/ Sodium Chloride (Zofran Inj/NS) 54 ml @ 216 mls/hr Q6H PRN IV NAUSEA AND/OR VOMITING Last administered on 07/21/16 20:23; Admin Dose 216 MLS/HR; Start 06/02/16 at 18:30 Ondansetron HCl (Zofran Inj) 4 mg Q6H PRN IV NAUSEA AND/OR VOMITING Last administered on 07/19/16 19:19; Admin Dose 4 MG; Start 06/03/16 at 17:00 Acetaminophen (Tylenol Tab) 650 mg Q6H PRN PO PAIN LEVEL 1-3 OR FEVER Last administered on 07/12/16 16:42; Admin Dose 650 MG; Start 06/03/16 at 17:00 Acetaminophen (Tylenol Supp) [address] PAIN LEVEL 1-3 OR FEVER Last administered on 07/15/16 19:50; Admin Dose 650 MG; Start 06/03/16 at 17:00 Docusate Sodium (Colace) 100 mg Q12H PRN PO CONSTIPATION Last administered on 11:02; Admin Dose 100 MG; Start 06/03/16 at 17:00 Magnesium Hydroxide (Milk Of Mag) 30 ml DAILY PRN PO CONSTIPATION Last administered on 06/20/16 06:13; Admin Dose 30 ML; Start 06/03/16 at 17:00 Bisacodyl (Dulcolax) 5 mg DAILY PRN PO CONSTIPATION Last administered on 11:02; Admin Dose 5 MG; Start 06/03/16 at 17:00 Bisacodyl (Dulcolax Supp) [address] CONSTIPATION Last administered on 06/21/16 05:18; Admin Dose 10 MG; Start 06/03/16 at 17:00 Sodium Biphosphate/ Sodium Phosphate (Fleet Enema) [address] CONSTIPATION; Start 06/03/16 at 17:00 Enoxaparin Sodium (Lovenox) 30 mg DAILY SC Last administered on 06/12/16at 08: 27; Admin Dose 30 MG; Start 06/04/16 at 09:00; Status Future Hold Eye Lubricant (Artificial Tears Oph) 2 drop QID BOTH EYES Last administered on 07/22/16 12:25; Admin Dose 2 DROP; Start 06/03/16 at 21:00 Eye Lubricant (Akwa Oint) 1 applic DAILY BOTH EYES Last administered on 09:18; Admin Dose 1 APPLIC; Start 06/04/16 at 09:00 Gabapentin (Neurontin) 200 mg TID PO Last administered on 07/22/16 12:25; Admin Dose 200 MG; Start 06/03/16 at 21:00 Levothyroxine Sodium (Synthroid) 100 mcg DAILY@06 PO Last administered on 05:43; Admin Dose 100 MCG; Start 06/04/16 at 06:00 Pantoprazole (Protonix Iv) 40 mg DAILY@06 IV Last administered on 07/22/16 05: 43; Admin Dose 40 MG; Start 06/09/16 at 06:00 Lorazepam (Ativan) 1 mg Q6H PRN IV AGITATION/ANXIETY Last administered on 01:50; Admin Dose 1 MG; Start 06/08/16 at 18:00 Acetaminophen/ Hydrocodone Bitart ([place] (5/325)) 1 tab Q6H PRN PO PAIN Last administered on 07/20/16 09:30; Admin Dose 1 TAB; Start 06/11/16 at 17:30 Collagenase (Santyl) 1 applic DAILY TOP Last administered on 07/22/16 09:18; Admin Dose 1 APPLIC; Start 06/12/16 at 09:00 Nystatin (Nystatin Susp) 5 ml QID PO Last administered on 07/22/16 12:26; Admin Dose 5 ML; Start 06/18/16 at 17:00 Scopolamine (Transderm-Scop) 1 patch Q72H TRANSDERM Last administered on 21:32; Admin Dose 1 PATCH; Start 06/22/16 at 21:00 Fluconazole 100 mg 100 mg DAILY PO Last administered on 07/22/16 09:17; Admin Dose 100 MG; Start 06/28/16 at 09:00 Sodium Chloride (NS) 1,000 ml @ 100 mls/hr Q10H IV Last administered on 11:25; Admin Dose 100 MLS/HR; Start 07/01/16 at 19:00 Lactobacillus Acidoph/Bulgaricus (Floranex) 1 tab BID PO Last administered on 09:18; Admin Dose 1 TAB; Start 07/01/16 at 21:00 Ibuprofen (Motrin) 600 mg TID PRN PO FEVER Last administered on 07/04/16 01:29 ; Admin Dose 600 MG; Start 07/03/16 at 19:30 Metoclopramide HCl (Reglan) 10 mg Q6H PRN IV NAUSEA Last administered on 01:47; Admin Dose 10 MG; Start 07/16/16 at 08:30 GUERLINE SULLIVAN MD Jul 22, 2016 17:27
[2016-07-22 20:04] VITALS: BP 113/73; RESP 20
[2016-07-22] MEDS: SCOPOLAMINE 1.5 MG PATCH TRANSDERM SCH (20:59)
[2016-07-23] MEDS: SOD CHLORIDE 0.9% 1,000 ML IV SCH ×3 (00:16→20:21)
[2016-07-23] MEDS: ALBUTEROL/IPRATROPIUM (NEB) 3 ML AMP HHN SCH ×4 (01:46→20:50)
[2016-07-23 05:08] LABS: HEMATOCRIT 29.7 % (37.0-47.0); HEMOGLOBIN 10.1 g/dl (12.0-16.0); LYMPHOCYTES # 0.7 10^3/ul (0.8-2.9); LYMPHOCYTES % 6.8 % (15.0-51.0); MEAN CORPUSCULAR HEMOGLOBIN 29.9 pg (29.0-33.0); MEAN PLATELET VOLUME 8.9 fl (7.4-10.4); MONOCYTE # 0.7 10^3/ul (0.3-0.9); MONOCYTES % 7.4 % (0.0-11.0); NEUTROPHIL # 8.3 10^3/ul (1.6-7.5); NEUTROPHILS % 85.8 % (39.0-77.0); PLATELET COUNT 55 10^3/UL (140-440); RED BLOOD COUNT 3.37 10^6/ul (4.20-5.40); RED CELL DISTRIBUTION WIDTH 14.8 % (11.5-14.5); UNCORRECTED WBC 9.7 10^3/ul (4.8-10.8); WHITE BLOOD COUNT 9.7 10^3/ul (4.8-10.8)
[2016-07-23 05:33] LABS: CONDITION 1; LH ANALYZER COMMENTS 1; SUSPECT 1
[2016-07-23 05:39] LABS: ALBUMIN 3.3 g/dl (3.3-4.9)
[2016-07-23 05:42] LABS: ALBUMIN/GLOBULIN RATIO 1.32; BILIRUBIN,INDIRECT 0.3 mg/dl (0-1.1); BILIRUBIN,TOTAL 0.3 mg/dl (0.2-1.3); CREATININE 0.36 mg/dl (0.44-1.00); TOTAL PROTEIN 5.8 g/dl (6.1-8.1)
[2016-07-23 05:43] LABS: CALCIUM 9.3 mg/dl (8.4-10.2)
[2016-07-23] MEDS: LEVOTHYROXINE 100 MCG TAB PO SCH (06:59)
[2016-07-23] MEDS: PANTOPRAZOLE 40 MG INJ IV SCH (06:59)
[2016-07-23 07:00] VITALS: BP 116/72; RESP 20
[2016-07-23] MEDS: COLLAGENASE 30 GM TUBE TOP SCH (09:00)
[2016-07-23] MEDS: NYSTATIN SUSP 5 ML CUP PO SCH ×4 (09:51→20:22)
[2016-07-23] MEDS: FLUCONAZOLE 100 MG TAB PO SCH (09:52)
[2016-07-23] MEDS: GABAPENTIN 100 MG CAP PO SCH ×3 (09:52→20:22)
[2016-07-23] MEDS: OCULAR LUBRICANT 3.5 GM OPH OINT BOTH EYES SCH (09:52)
[2016-07-23] MEDS: ARTIFICIAL TEARS 15 ML OPH BOTH EYES SCH ×4 (09:52→20:21)
[2016-07-23] MEDS: LACTOBACILLUS CHEW TAB PO SCH ×2 (09:52→20:22)
[2016-07-23] MEDS: ACYCLOVIR 400 MG TAB PO SCH ×2 (09:52→20:22)
--- NOTE | 2016-07-23 09:56 | CONS ---
Date/Time of Note Date/Time of Note DATE: 07/23/16 TIME: 09:54 Assessment/Plan Assessment/Plan Chief Complaint/Hosp Course 56 yo female with massive neck mass causing tracheal compression and airway compromise s/p tracheostomy placement. 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 Pt was given cycle 1A and 1B of R HyperCVAD but had only a partial response to therapy and severe side effects. We have thus changed her chemotherapy regimen. She is now s/p cycle 1B of R-IVACand has now completed her chemotherapy. Most recent CT neck showed resolution of the mass. . Problems: Additional Assessment/Plan # Burkitt's lymphoma - currently day 19 cycle 1B R -IVAC. chemotherapy regimen is as follows Part 2: R-IVAC Rituximab (Rituxan) 375 mg/m2 IV once on day 1 Ifosfamide (Ifex) 1500 mg/m2 IV over 2 hours once per day on days 1 to 5 Etoposide (Vepesid) 60 mg/m2 IV over 1 hour once per day on days 1 to 5 Cytarabine (Cytosar) 2 g/m2 IV over 3 hours Q12H on days 1 & 2 (4 doses total) [place] (Mesnex) 300 mg/m2 (mixed with Ifosfamide (Ifex)) , then 300mg/m2 IV every four hours x 2, on days 1 to 5 #Neck mass with trach in place -now that patient is not longer neutropenic and counts are stable, Neupogen can be dc'd -pulmonary to evaluate trach to see if it can be removed # Neutropenic fevers -appreciate ID recs. continue meropenem and vancomycin. ANC rising appropriately -f/u blood and urine cultures -ANC ok, can dc neupogen # Supportive Care and prophylactic meds -Started Acyclovir 400mg BID -fluconazole 100mg q day -Neupogen 300mcg q day day after chemotherapy is completed -Zofran ordered prn nausea #Expected Pancytopenia -keep Hg> 8 and platelets > 10. . patient remains TRANSFUSION DEPENDANT. s/p blood transfusion yesterday. patient remains transfusion dependant # Elevated AST and ALT, likely related to methotrexate. now resolved Approximately 40 min were spent at patient's bedside and in coordination of her care Consultation Date/Type/Reason Admit Date/Time Jun 02, 2016 at 15:10 Initial Consult Date 06/02/16 Type of Consultation: Hematology Reason for Consultation Burkitt's lymphoma Referring Provider: TELLY SOLANO MD 24 HR Interval Summary Free Text/Dictation no acute overnight events. pt doing well. ambulating Exam/Review of Systems Vital Signs Vitals Vital Signs Date Time Temp Pulse Resp B/P Pulse Ox O2 Delivery O2 Flow Rate FiO2 07/23/16 07:00 98.8 81 20 116/72 97 07/23/16 04:45 5.0 28 07/23/16 04:45 Aerosol Aerosol Mask Intake and Output 07/22/16 07/22/16 07/23/16 15:00 23:00 07:00 Intake Total 780 ml 120 ml Output Total 900 ml Balance -120 ml 120 ml Exam Constitutional: alert, oriented Psych: no complaints Head: atraumatic, normocephalic Eyes: nl conjunctiva ENMT: nl external ears & nose Neck: non-tender, other (trach in place), supple Respiratory: clear to auscultation, normal air movement Cardiovascular: nl pulses, regular rate and rhythm Gastrointestinal: soft Musculoskeletal: nl extremities to inspection, nl gait and stance Extremities: normal pulses Results Result Diagram: 07/23/1643407/23/16 0435 Results 24 hrs Laboratory Tests Test 07/23/16 04:35 Alanine Aminotransferase (ALT/SGPT) 65 Albumin 3.3 Albumin/Globulin Ratio 1.32 Alkaline Phosphatase 172 H Anion Gap 15 Aspartate Amino Transf (AST/SGOT) 50 H Basophils # 0.0 Basophils % 0.0 Blood Morphology Comment Blood Urea Nitrogen 5 L Calcium Level 9.3 Carbon Dioxide Level 28 Chloride Level 102 Creatinine 0.36 L Direct Bilirubin 0.00 Eosinophils # 0.0 Eosinophils % 0.0 Globulin 2.50 Glucose Level 96 Hematocrit 29.7 L Hemoglobin 10.1 L Indirect Bilirubin 0.3 Lymphocytes # 0.7 L Lymphocytes % 6.8 L Mean Corpuscular Hemoglobin 29.9 Mean Corpuscular Hemoglobin Concent 34.0 Mean Corpuscular Volume 88.0 Mean Platelet Volume 8.9 Monocytes # 0.7 Monocytes % 7.4 Neutrophils # 8.3 H Neutrophils % 85.8 H Nucleated Red Blood Cells # 0.0 Nucleated Red Blood Cells % 0.0 Platelet Count 55 L Potassium Level 4.0 Red Blood Count 3.37 L Red Cell Distribution Width 14.8 H Sodium Level 141 Total Bilirubin 0.3 Total Protein 5.8 L White Blood Count 9.7 # Medications Medications Current Medications Acyclovir (Zovirax) 400 mg BID PO Last administered on 07/22/16 20:58; Admin Dose 400 MG; Start 06/02/16 at 14:30 Diphenhydramine HCl (Benadryl) 25 mg Q4H PRN IV ALLERGIC REACTION Last administered on 06/06/16at 20:26; Admin Dose 25 MG; Start 06/02/16 at 18:30 Dexamethasone 10 mg 10 mg Q4H PRN IV ALLERGIC REACTION; Start 06/02/16 at 18: 30 Ondansetron HCl/ Sodium Chloride (Zofran Inj/NS) 54 ml @ 216 mls/hr Q6H PRN IV NAUSEA AND/OR VOMITING Last administered on 07/21/16 20:23; Admin Dose 216 MLS/HR; Start 06/02/16 at 18:30 Ondansetron HCl (Zofran Inj) 4 mg Q6H PRN IV NAUSEA AND/OR VOMITING Last administered on 07/19/16 19:19; Admin Dose 4 MG; Start 06/03/16 at 17:00 Acetaminophen (Tylenol Tab) 650 mg Q6H PRN PO PAIN LEVEL 1-3 OR FEVER Last administered on 07/12/16 16:42; Admin Dose 650 MG; Start 06/03/16 at 17:00 Acetaminophen (Tylenol Supp) 650 mg Q6H PRN [place] PAIN LEVEL 1-3 OR FEVER Last administered on 07/15/16 19:50; Admin Dose 650 MG; Start 06/03/16 at 17:00 Docusate Sodium (Colace) 100 mg Q12H PRN PO CONSTIPATION Last administered on 11:02; Admin Dose 100 MG; Start 06/03/16 at 17:00 Magnesium Hydroxide (Milk Of Mag) 30 ml DAILY PRN PO CONSTIPATION Last administered on 06/20/16at 06:13; Admin Dose 30 ML; Start 06/03/16 at 17:00 Bisacodyl (Dulcolax) 5 mg DAILY PRN PO CONSTIPATION Last administered on 11:02; Admin Dose 5 MG; Start 06/03/16 at 17:00 Bisacodyl (Dulcolax Supp) 10 mg DAILY PRN [place] CONSTIPATION Last administered on 06/21/16at 05:18; Admin Dose 10 MG; Start 06/03/16 at 17:00 Sodium Biphosphate/ Sodium Phosphate (Fleet Enema) 133 ml DAILY PRN [place] CONSTIPATION; Start 06/03/16 at 17:00 Enoxaparin Sodium (Lovenox) 30 mg DAILY SC Last administered on 06/12/16at 08: 27; Admin Dose 30 MG; Start 06/04/16 at 09:00; Status Future Hold Eye Lubricant (Artificial Tears Oph) 2 drop QID BOTH EYES Last administered on 07/22/16 20:57; Admin Dose 2 DROP; Start 06/03/16 at 21:00 Eye Lubricant (Akwa Oint) 1 applic DAILY BOTH EYES Last administered on 18:01; Admin Dose 1 APPLIC; Start 06/04/16 at 09:00 Gabapentin (Neurontin) 200 mg TID PO Last administered on 07/22/16 20:58; Admin Dose 200 MG; Start 06/03/16 at 21:00 Levothyroxine Sodium (Synthroid) 100 mcg DAILY@06 PO Last administered on 06:59; Admin Dose 100 MCG; Start 06/04/16 at 06:00 Pantoprazole (Protonix Iv) 40 mg DAILY@06 IV Last administered on 07/23/16 06: 59; Admin Dose 40 MG; Start 06/09/16 at 06:00 Lorazepam (Ativan) 1 mg Q6H PRN IV AGITATION/ANXIETY Last administered on 01:50; Admin Dose 1 MG; Start 06/08/16 at 18:00 Acetaminophen/ Hydrocodone Bitart ([place] (5/325)) 1 tab Q6H PRN PO PAIN Last administered on 07/20/16 09:30; Admin Dose 1 TAB; Start 06/11/16 at 17:30 Collagenase (Santyl) 1 applic DAILY TOP Last administered on 07/22/16 09:18; Admin Dose 1 APPLIC; Start 06/12/16 at 09:00 Nystatin (Nystatin Susp) 5 ml QID PO Last administered on 07/22/16 20:58; Admin Dose 5 ML; Start 06/18/16 at 17:00 Scopolamine (Transderm-Scop) 1 patch Q72H TRANSDERM Last administered on 20:59; Admin Dose 1 PATCH; Start 06/22/16 at 21:00 Fluconazole 100 mg 100 mg DAILY PO Last administered on 07/22/16 09:17; Admin Dose 100 MG; Start 06/28/16 at 09:00 Sodium Chloride (NS) 1,000 ml @ 100 mls/hr Q10H IV Last administered on 11:25; Admin Dose 100 MLS/HR; Start 07/01/16 at 19:00 Lactobacillus Acidoph/Bulgaricus (Floranex) 1 tab BID PO Last administered on 20:58; Admin Dose 1 TAB; Start 07/01/16 at 21:00 Ibuprofen (Motrin) 600 mg TID PRN PO FEVER Last administered on 07/04/16 01:29 ; Admin Dose 600 MG; Start 07/03/16 at 19:30 Metoclopramide HCl (Reglan) 10 mg Q6H PRN IV NAUSEA Last administered on 01:47; Admin Dose 10 MG; Start 07/16/16 at 08:30 CHANDRIKA MERLOS M.D. Jul 23, 2016 09:56
--- NOTE | 2016-07-23 13:45 | RADRPT ---
PROCEDURE: XR Chest. CLINICAL INDICATION: Cough TECHNIQUE: Single AP portable chest. COMPARISON: 07/13/2016 FINDINGS: The cardiomediastinal silhouette is within normal limits. Tracheostomy tube in place. .The lungs ar e clear though pleural effusion or focal consolidation. No pneumothorax. The osseous structures and soft tissues are unremarkable. IMPRESSION: 1. No evidence for active cardiopulmonary disease. RPTAT: HH Leonid Cruz Physician Date Time Electronically viewed and signed by Leonid Cruz Physician on 07/23/2016 13:44 ARYA/
[2016-07-23] MEDS: ONDANSETRON INJ 8 MG in SOD CHLORIDE 0.9% 50 ML IV PRN (14:13)
--- NOTE | 2016-07-23 15:20 | PN ---
DATE: 07/23/2016 SUBJECTIVE: No acute changes. The patient is alert, feels better, looks comfortable. She complained of cough earlier today. WBC today 9.7, platelets 55, neutrophils 85.8, BUN 5, creatinine 0.36. INDWELLINGS: Trach, PICC. ANTIMICROBIALS: 1. Fluconazole. 2. Oral nystatin. 3. Acyclovir p.o. PHYSICAL EXAMINATION: GENERAL: Chronically ill-appearing, middle-aged [place] woman who is alert, in no distress. HEENT: Head atraumatic, normocephalic. Sclerae anicteric. NECK: Supple. Tracheostomy present. CHEST: Rise symmetrical. Breath sounds clear. HEART: S1, S2. ABDOMEN: Soft. Bowel sounds present. EXTREMITIES: No cyanosis. ASSESSMENT: 1. Status post neutropenic fevers. 2. Status post urinary tract infection. 3. Galilea's lymphoma. 4. Methicillin-resistant Staphylococcus aureus positive sputum, completed treatment with vancomycin. 5. Respiratory failure, status post tracheostomy secondary to a neck mass resulting in respiratory compromise. PLAN: The patient remains stable, no fevers. She is clinically improving. We are going to order a chest x-ray to make sure she is not developing pneumonia. Continue her on current regimen and follow oncology recommendations. Dictated By: RODRÍGUEZ ERAZO [employer] W[employer]DER SETTER for JILLIAN CUEVAS/YUNI Conf#: [id number] DID#: [id number]
[2016-07-23] MEDS: HYDROCODONE/HOMATROPINE 5ML CUP PO PRN ×2 (16:29→23:39)
[2016-07-23 19:59] VITALS: BP 112/70; RESP 18
--- NOTE | 2016-07-23 20:12 | PN ---
Date/Time of Note Date/Time of Note DATE: 07/23/16 TIME: 20:10 Assessment/Plan VTE Prophylaxis VTE Prophylaxis Intervention: other Lines/Catheters IV Catheter Type (from Nrsg): PICC Line Central line still needed: Yes Urinary Cath still in place: No Assessment/Plan Chief Complaint/Hosp Course IMPRESSION: The patient has Burkitt's lymphoma HX tracheostomy, status post thyroid mass, pancytopenia, abnormal liver function test. better SEPSIS better gallstone ABN LFT anemia post chemo HYPOKALEMIA better uti pancytopenia better PLAN per oncology LABS chemo per dr dang per id Problems: Subjective 24 Hr Interval Summary Respiratory: no complaints Cardiovascular: no complaints Gastrointestinal: no complaints Exam/Review of Systems Vital Signs Vitals Vital Signs Date Time Temp Pulse Resp B/P Pulse Ox O2 Delivery O2 Flow Rate FiO2 07/23/16 19:59 99.3 102 18 112/70 98 07/23/16 14:36 5.0 28 07/23/16 14:36 T Tube Intake and Output 07/22/16 07/22/16 07/23/16 15:00 23:00 07:00 Intake Total 780 ml 120 ml Output Total 900 ml Balance -120 ml 120 ml Exam ENMT: nl external ears & nose Neck: supple Respiratory: clear to auscultation Cardiovascular: regular rate and rhythm Gastrointestinal: soft Results Result Diagram: 07/23/16 0435 07/23/16 0435 Results 24 hrs Laboratory Tests Test 07/23/16 04:35 Alanine Aminotransferase (ALT/SGPT) 65 Albumin 3.3 Albumin/Globulin Ratio 1.32 Alkaline Phosphatase 172 H Anion Gap 15 Aspartate Amino Transf (AST/SGOT) 50 H Basophils # 0.0 Basophils % 0.0 Blood Morphology Comment Blood Urea Nitrogen 5 L Calcium Level 9.3 Carbon Dioxide Level 28 Chloride Level 102 Creatinine 0.36 L Direct Bilirubin 0.00 Eosinophils # 0.0 Eosinophils % 0.0 Globulin 2.50 Glucose Level 96 Hematocrit 29.7 L Hemoglobin 10.1 L Indirect Bilirubin 0.3 Lymphocytes # 0.7 L Lymphocytes % 6.8 L Mean Corpuscular Hemoglobin 29.9 Mean Corpuscular Hemoglobin Concent 34.0 Mean Corpuscular Volume 88.0 Mean Platelet Volume 8.9 Monocytes # 0.7 Monocytes % 7.4 Neutrophils # 8.3 H Neutrophils % 85.8 H Nucleated Red Blood Cells # 0.0 Nucleated Red Blood Cells % 0.0 Platelet Count 55 L Potassium Level 4.0 Red Blood Count 3.37 L Red Cell Distribution Width 14.8 H Sodium Level 141 Total Bilirubin 0.3 Total Protein 5.8 L White Blood Count 9.7 # Medications Medications Current Medications Acyclovir (Zovirax) 400 mg BID PO Last administered on 07/23/16 09:52; Admin Dose 400 MG; Start 06/02/16 at 14:30 Diphenhydramine HCl (Benadryl) 25 mg Q4H PRN IV ALLERGIC REACTION Last administered on 06/06/16 20:26; Admin Dose 25 MG; Start 06/02/16 at 18:30 Dexamethasone 10 mg 10 mg Q4H PRN IV ALLERGIC REACTION; Start 06/02/16 at 18: 30 Ondansetron HCl/ Sodium Chloride (Zofran Inj/NS) 54 ml @ 216 mls/hr Q6H PRN IV NAUSEA AND/OR VOMITING Last administered on 07/23/16 14:13; Admin Dose 216 MLS/HR; Start 06/02/16 at 18:30 Ondansetron HCl (Zofran Inj) 4 mg Q6H PRN IV NAUSEA AND/OR VOMITING Last administered on 07/19/16 19:19; Admin Dose 4 MG; Start 06/03/16 at 17:00 Acetaminophen (Tylenol Tab) 650 mg Q6H PRN PO PAIN LEVEL 1-3 OR FEVER Last administered on 07/12/16 16:42; Admin Dose 650 MG; Start 06/03/16 at 17:00 Acetaminophen (Tylenol Supp) 650 mg Q6H PRN AR PAIN LEVEL 1-3 OR FEVER Last administered on 07/15/16 19:50; Admin Dose 650 MG; Start 06/03/16 at 17:00 Docusate Sodium (Colace) 100 mg Q12H PRN PO CONSTIPATION Last administered on 11:02; Admin Dose 100 MG; Start 06/03/16 at 17:00 Magnesium Hydroxide (Milk Of Mag) 30 ml DAILY PRN PO CONSTIPATION Last administered on 06/20/16 06:13; Admin Dose 30 ML; Start 06/03/16 at 17:00 Bisacodyl (Dulcolax) 5 mg DAILY PRN PO CONSTIPATION Last administered on 11:02; Admin Dose 5 MG; Start 06/03/16 at 17:00 Bisacodyl (Dulcolax Supp) 10 mg DAILY PRN AR CONSTIPATION Last administered on 06/21/16at 05:18; Admin Dose 10 MG; Start 06/03/16 at 17:00 Sodium Biphosphate/ Sodium Phosphate (Fleet Enema) 133 ml DAILY PRN AR CONSTIPATION; Start 06/03/16 at 17:00 Enoxaparin Sodium (Lovenox) 30 mg DAILY SC Last administered on 06/12/16at 08: 27; Admin Dose 30 MG; Start 06/04/16 at 09:00; Status Future Hold Eye Lubricant (Artificial Tears Oph) 2 drop QID BOTH EYES Last administered on 07/23/16 19:01; Admin Dose 2 DROP; Start 06/03/16 at 21:00 Eye Lubricant ([place]wa Oint) 1 applic DAILY BOTH EYES Last administered on 09:52; Admin Dose 1 APPLIC; Start 06/04/16 at 09:00 Gabapentin (Neurontin) 200 mg TID PO Last administered on 07/23/16 13:36; Admin Dose 200 MG; Start 06/03/16 at 21:00 Levothyroxine Sodium (Synthroid) 100 mcg DAILY@06 PO Last administered on 06:59; Admin Dose 100 MCG; Start 06/04/16 at 06:00 Pantoprazole (Protonix Iv) 40 mg DAILY@06 IV Last administered on 07/23/16 06: 59; Admin Dose 40 MG; Start 06/09/16 at 06:00 Lorazepam (Ativan) 1 mg Q6H PRN IV AGITATION/ANXIETY Last administered on 01:50; Admin Dose 1 MG; Start 06/08/16 at 18:00 Acetaminophen/ Hydrocodone Bitart ([place] (5/325)) 1 tab Q6H PRN PO PAIN Last administered on 07/20/16 09:30; Admin Dose 1 TAB; Start 06/11/16 at 17:30 Collagenase (Santyl) 1 applic DAILY TOP Last administered on 07/22/16 09:18; Admin Dose 1 APPLIC; Start 06/12/16 at 09:00 Nystatin (Nystatin Susp) 5 ml QID PO Last administered on 07/23/16 19:01; Admin Dose 5 ML; Start 06/18/16 at 17:00 Scopolamine (Transderm-Scop) 1 patch Q72H TRANSDERM Last administered on 20:59; Admin Dose 1 PATCH; Start 06/22/16 at 21:00 Fluconazole 100 mg 100 mg DAILY PO Last administered on 07/23/16 09:52; Admin Dose 100 MG; Start 06/28/16 at 09:00 Sodium Chloride (NS) 1,000 ml @ 100 mls/hr Q10H IV Last administered on 11:25; Admin Dose 100 MLS/HR; Start 07/01/16 at 19:00 Lactobacillus Acidoph/Bulgaricus (Floranex) 1 tab BID PO Last administered on 09:52; Admin Dose 1 TAB; Start 07/01/16 at 21:00 Ibuprofen (Motrin) 600 mg TID PRN PO FEVER Last administered on 07/04/16 01:29 ; Admin Dose 600 MG; Start 07/03/16 at 19:30 Metoclopramide HCl (Reglan) 10 mg Q6H PRN IV NAUSEA Last administered on 01:47; Admin Dose 10 MG; Start 07/16/16 at 08:30 Hydrocodone Bit/ Homatropine Methylb (Hycodan Liquid) 5 ml TID PRN PO COUGH Last administered on 07/23/16 16:29; Admin Dose 5 ML; Start 07/23/16 at 13:30 GUERLINE SULLIVAN MD Jul 23, 2016 20:12
[2016-07-23] MEDS: ONDANSETRON 4 MG INJ IV PRN (23:38)
[2016-07-24] MEDS: ALBUTEROL/IPRATROPIUM (NEB) 3 ML AMP HHN SCH ×4 (02:00→19:41)
[2016-07-24 05:16] LABS: HEMATOCRIT 29.5 % (37.0-47.0); HEMOGLOBIN 10.2 g/dl (12.0-16.0); MEAN CORPUSCULAR HEMOGLOBIN 30.1 pg (29.0-33.0); MEAN CORPUSCULAR HGB CONC 34.5 g/dl (32.0-37.0); MEAN CORPUSCULAR VOLUME 87.1 fl (82.0-101.0); MONOCYTE # 0.9 10^3/ul (0.3-0.9); PLATELET COUNT 50 10^3/UL (140-440); RED BLOOD COUNT 3.38 10^6/ul (4.20-5.40); RED CELL DISTRIBUTION WIDTH 14.3 % (11.5-14.5); UNCORRECTED WBC 7.2 10^3/ul (4.8-10.8); WHITE BLOOD COUNT 7.2 10^3/ul (4.8-10.8)
[2016-07-24] MEDS: SOD CHLORIDE 0.9% 1,000 ML IV SCH ×2 (05:55→16:09)
[2016-07-24] MEDS: PANTOPRAZOLE 40 MG INJ IV SCH (05:58)
[2016-07-24] MEDS: LEVOTHYROXINE 100 MCG TAB PO SCH (05:59)
[2016-07-24 06:30] LABS: ALBUMIN 3.2 g/dl (3.3-4.9)
[2016-07-24 06:31] LABS: POTASSIUM 3.8 mmol/L (3.5-5.1)
[2016-07-24 06:33] LABS: ALBUMIN/GLOBULIN RATIO 1.33; BILIRUBIN,INDIRECT 0.3 mg/dl (0-1.1); BILIRUBIN,TOTAL 0.3 mg/dl (0.2-1.3); CREATININE 0.42 mg/dl (0.44-1.00); TOTAL PROTEIN 5.6 g/dl (6.1-8.1)
[2016-07-24 06:46] LABS: CONDITION 1; LH ANALYZER COMMENTS 1; SUSPECT 1
[2016-07-24 08:34] VITALS: BP 114/74; RESP 18
[2016-07-24] MEDS: COLLAGENASE 30 GM TUBE TOP SCH (09:00)
[2016-07-24] MEDS: ACYCLOVIR 400 MG TAB PO SCH ×2 (09:33→20:31)
[2016-07-24] MEDS: FLUCONAZOLE 100 MG TAB PO SCH (09:33)
[2016-07-24] MEDS: NYSTATIN SUSP 5 ML CUP PO SCH ×4 (09:33→20:31)
[2016-07-24] MEDS: LACTOBACILLUS CHEW TAB PO SCH ×2 (09:33→20:31)
[2016-07-24] MEDS: GABAPENTIN 100 MG CAP PO SCH ×3 (09:33→20:31)
[2016-07-24] MEDS: ARTIFICIAL TEARS 15 ML OPH BOTH EYES SCH ×4 (09:34→20:31)
[2016-07-24 09:59] LABS: LYMPHOCYTES # 0.9 10^3/ul (0.8-2.9); NEUTROPHIL # 4.5 10^3/ul (1.6-7.5)
[2016-07-24 10:00] LABS: PLATELET ESTIMATE PLT APPEAR DECREASED
--- NOTE | 2016-07-24 10:03 | CONS ---
Date/Time of Note Date/Time of Note DATE: 07/24/16 TIME: 09:53 Consult Date/Type/Reason Admit Date/Time Jun 02, 2016 at 15:10 Initial Consult Date 06/02/16 Type of Consultation: Pulm Ordering Provider: TELLY SOLANO MD Subjective Awake alert oriented. No respiratory distress. Continues cool aerosol. Objective Vital Signs Date Time Temp Pulse Resp B/P Pulse Ox O2 Delivery O2 Flow Rate FiO2 07/24/16 09:25 18 99 Aerosol 5.0 28 07/24/16 08:34 98.2 100 114/74 Intake and Output 07/23/16 07/23/16 07/24/16 15:00 23:00 07:00 Intake Total 474 ml 200 ml Output Total 800 ml Balance 474 ml -600 ml Gen: well nourished well developed lady Heent: trach in place cvs: s1s2 rs: clear bilaterally abdo soft nt bs present ext: no cy cl mumtaz Results/Medications Result Diagram: 07/24/165 07/24/16 0445 Results 24 hrs Laboratory Tests Test 07/24/16 04:45 Alanine Aminotransferase (ALT/SGPT) 70 H Albumin 3.2 L Albumin/Globulin Ratio 1.33 Alkaline Phosphatase 154 H Anion Gap 15 Aspartate Amino Transf (AST/SGOT) 59 H Basophils # Pending Basophils % Pending Blood Morphology Comment Blood Urea Nitrogen 7 Calcium Level 9.0 Carbon Dioxide Level 29 Chloride Level 100 Creatinine 0.42 L Direct Bilirubin 0.00 Eosinophils # Pending Eosinophils % Pending Globulin 2.40 Glucose Level 100 Hematocrit 29.5 L Hemoglobin 10.2 L Indirect Bilirubin 0.3 Lymphocytes # Pending Lymphocytes % Pending Mean Corpuscular Hemoglobin 30.1 Mean Corpuscular Hemoglobin Concent 34.5 Mean Corpuscular Volume 87.1 Mean Platelet Volume 9.0 Monocytes # Pending Monocytes % Pending Neutrophils # Pending Neutrophils % Pending Nucleated Red Blood Cells # Pending Nucleated Red Blood Cells % Pending Platelet Count 50 L Potassium Level 3.8 Red Blood Count 3.38 L Red Cell Distribution Width 14.3 Sodium Level 140 Total Bilirubin 0.3 Total Protein 5.6 L White Blood Count 7.2 # Medications Current Medications Acyclovir (Zovirax) 400 mg BID PO Last administered on 07/24/16t 09:33; Admin Dose 400 MG; Start 06/02/16 at 14:30 Diphenhydramine HCl (Benadryl) 25 mg Q4H PRN IV ALLERGIC REACTION Last administered on 06/06/16at 20:26; Admin Dose 25 MG; Start 06/02/16 at 18:30 Dexamethasone 10 mg 10 mg Q4H PRN IV ALLERGIC REACTION; Start 06/02/16 at 18: 30 Ondansetron HCl/ Sodium Chloride (Zofran Inj/NS) 54 ml @ 216 mls/hr Q6H PRN IV NAUSEA AND/OR VOMITING Last administered on 07/23/16 14:13; Admin Dose 216 MLS/HR; Start 06/02/16 at 18:30 Ondansetron HCl (Zofran Inj) 4 mg Q6H PRN IV NAUSEA AND/OR VOMITING Last administered on 07/23/16 23:38; Admin Dose 4 MG; Start 06/03/16 at 17:00 Acetaminophen (Tylenol Tab) 650 mg Q6H PRN PO PAIN LEVEL 1-3 OR FEVER Last administered on 07/12/16 16:42; Admin Dose 650 MG; Start 06/03/16 at 17:00 Acetaminophen (Tylenol Supp) 650 mg Q6H PRN ID PAIN LEVEL 1-3 OR FEVER Last administered on 07/15/16 19:50; Admin Dose 650 MG; Start 06/03/16 at 17:00 Docusate Sodium (Colace) 100 mg Q12H PRN PO CONSTIPATION Last administered on 11:02; Admin Dose 100 MG; Start 06/03/16 at 17:00 Magnesium Hydroxide (Milk Of Mag) 30 ml DAILY PRN PO CONSTIPATION Last administered on 06/20/16at 06:13; Admin Dose 30 ML; Start 06/03/16 at 17:00 Bisacodyl (Dulcolax) 5 mg DAILY PRN PO CONSTIPATION Last administered on 11:02; Admin Dose 5 MG; Start 06/03/16 at 17:00 Bisacodyl (Dulcolax Supp) 10 mg DAILY PRN ID CONSTIPATION Last administered on 06/21/16 05:18; Admin Dose 10 MG; Start 06/03/16 at 17:00 Sodium Biphosphate/ Sodium Phosphate (Fleet Enema) 133 ml DAILY PRN ID CONSTIPATION; Start 06/03/16 at 17:00 Enoxaparin Sodium (Lovenox) 30 mg DAILY SC Last administered on 06/12/16at 08: 27; Admin Dose 30 MG; Start 06/04/16 at 09:00; Status Future Hold Eye Lubricant (Artificial Tears Oph) 2 drop QID BOTH EYES Last administered on 07/24/16 09:34; Admin Dose 2 DROP; Start 06/03/16 at 21:00 Eye Lubricant (Akwa Oint) 1 applic DAILY BOTH EYES Last administered on 09:52; Admin Dose 1 APPLIC; Start 06/04/16 at 09:00 Gabapentin (Neurontin) 200 mg TID PO Last administered on 07/24/16 09:33; Admin Dose 200 MG; Start 06/03/16 at 21:00 Levothyroxine Sodium (Synthroid) 100 mcg DAILY@06 PO Last administered on 05:59; Admin Dose 100 MCG; Start 06/04/16 at 06:00 Pantoprazole (Protonix Iv) 40 mg DAILY@06 IV Last administered on 07/24/16 05: 58; Admin Dose 40 MG; Start 06/09/16 at 06:00 Lorazepam (Ativan) 1 mg Q6H PRN IV AGITATION/ANXIETY Last administered on 01:50; Admin Dose 1 MG; Start 06/08/16 at 18:00 Acetaminophen/ Hydrocodone Bitart ([place] (5/325)) 1 tab Q6H PRN PO PAIN Last administered on 07/20/16 09:30; Admin Dose 1 TAB; Start 06/11/16 at 17:30 Collagenase (Santyl) 1 applic DAILY TOP Last administered on 07/22/16 09:18; Admin Dose 1 APPLIC; Start 06/12/16 at 09:00 Nystatin (Nystatin Susp) 5 ml QID PO Last administered on 07/24/16 09:33; Admin Dose 5 ML; Start 06/18/16 at 17:00 Scopolamine (Transderm-Scop) 1 patch Q72H TRANSDERM Last administered on 20:59; Admin Dose 1 PATCH; Start 06/22/16 at 21:00 Fluconazole 100 mg 100 mg DAILY PO Last administered on 07/24/16 09:33; Admin Dose 100 MG; Start 06/28/16 at 09:00 Sodium Chloride (NS) 1,000 ml @ 100 mls/hr Q10H IV Last administered on 20:21; Admin Dose 100 MLS/HR; Start 07/01/16 at 19:00 Lactobacillus Acidoph/Bulgaricus (Floranex) 1 tab BID PO Last administered on 09:33; Admin Dose 1 TAB; Start 07/01/16 at 21:00 Ibuprofen (Motrin) 600 mg TID PRN PO FEVER Last administered on 07/04/16 01:29 ; Admin Dose 600 MG; Start 07/03/16 at 19:30 Metoclopramide HCl (Reglan) 10 mg Q6H PRN IV NAUSEA Last administered on 01:47; Admin Dose 10 MG; Start 07/16/16 at 08:30 Hydrocodone Bit/ Homatropine Methylb (Hycodan Liquid) 5 ml TID PRN PO COUGH Last administered on 07/23/16 23:39; Admin Dose 5 ML; Start 07/23/16 at 13:30 Assessment/Plan Chief Complaint/Hosp Course a/p 1. Respiratory failure trach in place. Will cap trach today and decannulate tomorrow if stable. 2. Burkitts lymphoma s/p chemo. Continue heme onc recs. Problems: SANDEEP JACKSON MD, FCCP Jul 24, 2016 10:03
[2016-07-24] MEDS: ONDANSETRON 4 MG INJ IV PRN (14:23)
--- NOTE | 2016-07-24 14:55 | CONS ---
Date/Time of Note Date/Time of Note DATE: 07/24/16 TIME: 14:54 Assessment/Plan Assessment/Plan Chief Complaint/Hosp Course 56 yo female with massive neck mass causing tracheal compression and airway compromise s/p tracheostomy placement. 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 Pt was given cycle 1A and 1B of R HyperCVAD but had only a partial response to therapy and severe side effects. We have thus changed her chemotherapy regimen. She is now s/p cycle 1B of R-IVACand has now completed her chemotherapy. Most recent CT neck showed resolution of the mass. . Problems: Additional Assessment/Plan # Burkitt's lymphoma - currently day 19 cycle 1B R -IVAC. chemotherapy regimen is as follows Part 2: R-IVAC Rituximab (Rituxan) 375 mg/m2 IV once on day 1 Ifosfamide (Ifex) 1500 mg/m2 IV over 2 hours once per day on days 1 to 5 Etoposide (Vepesid) 60 mg/m2 IV over 1 hour once per day on days 1 to 5 Cytarabine (Cytosar) 2 g/m2 IV over 3 hours Q12H on days 1 & 2 (4 doses total) [place] (Mesnex) 300 mg/m2 (mixed with Ifosfamide (Ifex)) , then 300mg/m2 IV every four hours x 2, on days 1 to 5 #Neck mass with trach in place -now that patient is not longer neutropenic and counts are stable, Neupogen can be dc'd -pulmonary to evaluate trach to see if it can be removed # Neutropenic fevers -appreciate ID recs. continue meropenem and vancomycin. ANC rising appropriately -f/u blood and urine cultures -ANC ok, can dc neupogen # Supportive Care and prophylactic meds -Started Acyclovir 400mg BID -fluconazole 100mg q day -Neupogen 300mcg q day day after chemotherapy is completed -Zofran ordered prn nausea #Expected Pancytopenia -keep Hg> 8 and platelets > 10. . patient remains TRANSFUSION DEPENDANT. s/p blood transfusion yesterday. patient remains transfusion dependant # Elevated AST and ALT, likely related to methotrexate. now resolved Approximately 40 min were spent at patient's bedside and in coordination of her care Consultation Date/Type/Reason Admit Date/Time Jun 02, 2016 at 15:10 Initial Consult Date 06/02/16 Type of Consultation: hematology Reason for Consultation burkitt's lymphoma Referring Provider: TELLY SOLANO MD 24 HR Interval Summary Free Text/Dictation no acute overnight events Exam/Review of Systems Vital Signs Vitals Vital Signs Date Time Temp Pulse Resp B/P Pulse Ox O2 Delivery O2 Flow Rate FiO2 07/24/16 14:37 117 17 96 Aerosol 5.0 28 07/24/16 08:34 98.2 114/74 Intake and Output 07/23/16 07/23/16 07/24/16 15:00 23:00 07:00 Intake Total 474 ml 200 ml Output Total 800 ml Balance 474 ml -600 ml Exam Constitutional: alert, oriented Psych: no complaints Head: atraumatic, normocephalic Eyes: nl conjunctiva ENMT: other (trach in place) Neck: supple Respiratory: clear to auscultation Cardiovascular: regular rate and rhythm Gastrointestinal: soft Results Result Diagram: 07/24/16 0445 07/24/16 0445 Results 24 hrs Laboratory Tests Test 07/24/16 04:45 Alanine Aminotransferase (ALT/SGPT) 70 H Albumin 3.2 L Albumin/Globulin Ratio 1.33 Alkaline Phosphatase 154 H Anion Gap 15 Aspartate Amino Transf (AST/SGOT) 59 H Basophils # 0.0 Basophils % 0.0 Blood Morphology Comment Blood Urea Nitrogen 7 Calcium Level 9.0 Carbon Dioxide Level 29 Chloride Level 100 Creatinine 0.42 L Direct Bilirubin 0.00 Eosinophils # 0.0 Eosinophils % 0.0 Globulin 2.40 Glucose Level 100 Hematocrit 29.5 L Hemoglobin 10.2 L Indirect Bilirubin 0.3 Lymphocytes # 0.9 Lymphocytes % 12.0 L Mean Corpuscular Hemoglobin 30.1 Mean Corpuscular Hemoglobin Concent 34.5 Mean Corpuscular Volume 87.1 Mean Platelet Volume 9.0 Monocytes # 0.9 Monocytes % 12.0 H Neutrophils # 4.5 Neutrophils % 63.0 Nucleated Red Blood Cells # 0.0 Nucleated Red Blood Cells % 0.0 Platelet Count 50 L Platelet Estimate PLT APPEAR DECREASED Potassium Level 3.8 Red Blood Count 3.38 L Red Cell Distribution Width 14.3 Sodium Level 140 Total Bilirubin 0.3 Total Protein 5.6 L White Blood Count 7.2 # Medications Medications Current Medications Acyclovir (Zovirax) 400 mg BID PO Last administered on 07/24/16t 09:33; Admin Dose 400 MG; Start 06/02/16 at 14:30 Diphenhydramine HCl (Benadryl) 25 mg Q4H PRN IV ALLERGIC REACTION Last administered on 06/06/16at 20:26; Admin Dose 25 MG; Start 06/02/16 at 18:30 Dexamethasone 10 mg 10 mg Q4H PRN IV ALLERGIC REACTION; Start 06/02/16 at 18: 30 Ondansetron HCl/ Sodium Chloride (Zofran Inj/NS) 54 ml @ 216 mls/hr Q6H PRN IV NAUSEA AND/OR VOMITING Last administered on 07/23/16 14:13; Admin Dose 216 MLS/HR; Start 06/02/16 at 18:30 Ondansetron HCl (Zofran Inj) 4 mg Q6H PRN IV NAUSEA AND/OR VOMITING Last administered on 07/24/16 14:23; Admin Dose 4 MG; Start 06/03/16 at 17:00 Acetaminophen (Tylenol Tab) 650 mg Q6H PRN PO PAIN LEVEL 1-3 OR FEVER Last administered on 07/12/16 16:42; Admin Dose 650 MG; Start 06/03/16 at 17:00 Acetaminophen (Tylenol Supp) 650 mg Q6H PRN OR PAIN LEVEL 1-3 OR FEVER Last administered on 07/15/16 19:50; Admin Dose 650 MG; Start 06/03/16 at 17:00 Docusate Sodium (Colace) 100 mg Q12H PRN PO CONSTIPATION Last administered on 11:02; Admin Dose 100 MG; Start 06/03/16 at 17:00 Magnesium Hydroxide (Milk Of Mag) 30 ml DAILY PRN PO CONSTIPATION Last administered on 06/20/16 06:13; Admin Dose 30 ML; Start 06/03/16 at 17:00 Bisacodyl (Dulcolax) 5 mg DAILY PRN PO CONSTIPATION Last administered on 11:02; Admin Dose 5 MG; Start 06/03/16 at 17:00 Bisacodyl (Dulcolax Supp) 10 mg DAILY PRN OR CONSTIPATION Last administered on 06/21/16 05:18; Admin Dose 10 MG; Start 06/03/16 at 17:00 Sodium Biphosphate/ Sodium Phosphate (Fleet Enema) 133 ml DAILY PRN OR CONSTIPATION; Start 06/03/16 at 17:00 Enoxaparin Sodium (Lovenox) 30 mg DAILY SC Last administered on 06/12/16at 08: 27; Admin Dose 30 MG; Start 06/04/16 at 09:00; Status Future Hold Eye Lubricant (Artificial Tears Oph) 2 drop QID BOTH EYES Last administered on 07/24/16 09:34; Admin Dose 2 DROP; Start 06/03/16 at 21:00 Eye Lubricant (Akwa Oint) 1 applic DAILY BOTH EYES Last administered on 09:52; Admin Dose 1 APPLIC; Start 06/04/16 at 09:00 Gabapentin (Neurontin) 200 mg TID PO Last administered on 07/24/16 09:33; Admin Dose 200 MG; Start 06/03/16 at 21:00 Levothyroxine Sodium (Synthroid) 100 mcg DAILY@06 PO Last administered on 05:59; Admin Dose 100 MCG; Start 06/04/16 at 06:00 Pantoprazole (Protonix Iv) 40 mg DAILY@06 IV Last administered on 07/24/16 05: 58; Admin Dose 40 MG; Start 06/09/16 at 06:00 Lorazepam (Ativan) 1 mg Q6H PRN IV AGITATION/ANXIETY Last administered on 01:50; Admin Dose 1 MG; Start 06/08/16 at 18:00 Acetaminophen/ Hydrocodone Bitart ([place] (5/325)) 1 tab Q6H PRN PO PAIN Last administered on 07/20/16 09:30; Admin Dose 1 TAB; Start 06/11/16 at 17:30 Collagenase (Santyl) 1 applic DAILY TOP Last administered on 07/22/16 09:18; Admin Dose 1 APPLIC; Start 06/12/16 at 09:00 Nystatin (Nystatin Susp) 5 ml QID PO Last administered on 07/24/16 09:33; Admin Dose 5 ML; Start 06/18/16 at 17:00 Scopolamine (Transderm-Scop) 1 patch Q72H TRANSDERM Last administered on 20:59; Admin Dose 1 PATCH; Start 06/22/16 at 21:00 Fluconazole 100 mg 100 mg DAILY PO Last administered on 07/24/16 09:33; Admin Dose 100 MG; Start 06/28/16 at 09:00 Sodium Chloride (NS) 1,000 ml @ 100 mls/hr Q10H IV Last administered on 20:21; Admin Dose 100 MLS/HR; Start 07/01/16 at 19:00 Lactobacillus Acidoph/Bulgaricus (Floranex) 1 tab BID PO Last administered on 09:33; Admin Dose 1 TAB; Start 07/01/16 at 21:00 Ibuprofen (Motrin) 600 mg TID PRN PO FEVER Last administered on 07/04/16 01:29 ; Admin Dose 600 MG; Start 07/03/16 at 19:30 Metoclopramide HCl (Reglan) 10 mg Q6H PRN IV NAUSEA Last administered on 01:47; Admin Dose 10 MG; Start 07/16/16 at 08:30 Hydrocodone Bit/ Homatropine Methylb (Hycodan Liquid) 5 ml TID PRN PO COUGH Last administered on 07/23/16 23:39; Admin Dose 5 ML; Start 07/23/16 at 13:30 CHANDRIKA MERLOS M.D. Jul 24, 2016 14:55
[2016-07-24] MEDS: HYDROCODONE/HOMATROPINE 5ML CUP PO PRN ×2 (16:08→20:40)
--- NOTE | 2016-07-24 18:20 | PN ---
Date/Time of Note Date/Time of Note DATE: 07/24/16 TIME: 18:18 Assessment/Plan VTE Prophylaxis VTE Prophylaxis Intervention: other Lines/Catheters IV Catheter Type (from [facility]): Peripheral IV Urinary Cath still in place: No Assessment/Plan Chief Complaint/Hosp Course IMPRESSION: The patient has Burkitt's lymphoma HX tracheostomy, status post thyroid mass, pancytopenia, abnormal liver function test. better SEPSIS better gallstone ABN LFT stable anemia post chemo better HYPOKALEMIA better uti pancytopenia better PLAN per oncology LABS chemo per dr dang per id capped trac Problems: Subjective 24 Hr Interval Summary Subjective hx not possible: other (trac capped) ENT: no complaints Respiratory: no complaints Exam/Review of Systems Vital Signs Vitals Vital Signs Date Time Temp Pulse Resp B/P Pulse Ox O2 Delivery O2 Flow Rate FiO2 07/24/16 14:37 117 17 96 Aerosol 5.0 28 07/24/16 08:34 98.2 114/74 Intake and Output 07/23/16 07/23/16 07/24/16 15:00 23:00 07:00 Intake Total 474 ml 200 ml Output Total 800 ml Balance 474 ml -600 ml Exam Neck: supple Respiratory: clear to auscultation Cardiovascular: regular rate and rhythm Gastrointestinal: bowel sounds (+), soft Extremities: No edema Results Result Diagram: 07/24/165 07/24/16444 Results 24 hrs Laboratory Tests Test 07/24/16 04:45 Alanine Aminotransferase (ALT/SGPT) 70 H Albumin 3.2 L Albumin/Globulin Ratio 1.33 Alkaline Phosphatase 154 H Anion Gap 15 Aspartate Amino Transf (AST/SGOT) 59 H Basophils # 0.0 Basophils % 0.0 Blood Morphology Comment Blood Urea Nitrogen 7 Calcium Level 9.0 Carbon Dioxide Level 29 Chloride Level 100 Creatinine 0.42 L Direct Bilirubin 0.00 Eosinophils # 0.0 Eosinophils % 0.0 Globulin 2.40 Glucose Level 100 Hematocrit 29.5 L Hemoglobin 10.2 L Indirect Bilirubin 0.3 Lymphocytes # 0.9 Lymphocytes % 12.0 L Mean Corpuscular Hemoglobin 30.1 Mean Corpuscular Hemoglobin Concent 34.5 Mean Corpuscular Volume 87.1 Mean Platelet Volume 9.0 Monocytes # 0.9 Monocytes % 12.0 H Neutrophils # 4.5 Neutrophils % 63.0 Nucleated Red Blood Cells # 0.0 Nucleated Red Blood Cells % 0.0 Platelet Count 50 L Platelet Estimate PLT APPEAR DECREASED Potassium Level 3.8 Red Blood Count 3.38 L Red Cell Distribution Width 14.3 Sodium Level 140 Total Bilirubin 0.3 Total Protein 5.6 L White Blood Count 7.2 # Medications Medications Current Medications Acyclovir (Zovirax) 400 mg BID PO Last administered on 07/24/16 09:33; Admin Dose 400 MG; Start 06/02/16 at 14:30 Diphenhydramine HCl (Benadryl) 25 mg Q4H PRN IV ALLERGIC REACTION Last administered on 06/06/16 20:26; Admin Dose 25 MG; Start 06/02/16 at 18:30 Dexamethasone 10 mg 10 mg Q4H PRN IV ALLERGIC REACTION; Start 06/02/16 at 18: 30 Ondansetron HCl/ Sodium Chloride (Zofran Inj/NS) 54 ml @ 216 mls/hr Q6H PRN IV NAUSEA AND/OR VOMITING Last administered on 07/23/16 14:13; Admin Dose 216 MLS/HR; Start 06/02/16 at 18:30 Ondansetron HCl (Zofran Inj) 4 mg Q6H PRN IV NAUSEA AND/OR VOMITING Last administered on 07/24/16 14:23; Admin Dose 4 MG; Start 06/03/16 at 17:00 Acetaminophen (Tylenol Tab) 650 mg Q6H PRN PO PAIN LEVEL 1-3 OR FEVER Last administered on 07/12/16 16:42; Admin Dose 650 MG; Start 06/03/16 at 17:00 Acetaminophen (Tylenol Supp) 650 mg Q6H PRN [place] PAIN LEVEL 1-3 OR FEVER Last administered on 07/15/16 19:50; Admin Dose 650 MG; Start 06/03/16 at 17:00 Docusate Sodium (Colace) 100 mg Q12H PRN PO CONSTIPATION Last administered on 11:02; Admin Dose 100 MG; Start 06/03/16 at 17:00 Magnesium Hydroxide (Milk Of Mag) 30 ml DAILY PRN PO CONSTIPATION Last administered on 06/20/16 06:13; Admin Dose 30 ML; Start 06/03/16 at 17:00 Bisacodyl (Dulcolax) 5 mg DAILY PRN PO CONSTIPATION Last administered on 11:02; Admin Dose 5 MG; Start 06/03/16 at 17:00 Bisacodyl (Dulcolax Supp) 10 mg DAILY PRN [place] CONSTIPATION Last administered on 06/21/16at 05:18; Admin Dose 10 MG; Start 06/03/16 at 17:00 Sodium Biphosphate/ Sodium Phosphate (Fleet Enema) 133 ml DAILY PRN [place] CONSTIPATION; Start 06/03/16 at 17:00 Enoxaparin Sodium (Lovenox) 30 mg DAILY SC Last administered on 06/12/16at 08: 27; Admin Dose 30 MG; Start 06/04/16 at 09:00; Status Future Hold Eye Lubricant (Artificial Tears Oph) 2 drop QID BOTH EYES Last administered on 07/24/16 09:34; Admin Dose 2 DROP; Start 06/03/16 at 21:00 Eye Lubricant (Akwa Oint) 1 applic DAILY BOTH EYES Last administered on 09:52; Admin Dose 1 APPLIC; Start 06/04/16 at 09:00 Gabapentin (Neurontin) 200 mg TID PO Last administered on 07/24/16 09:33; Admin Dose 200 MG; Start 06/03/16 at 21:00 Levothyroxine Sodium (Synthroid) 100 mcg DAILY@06 PO Last administered on 05:59; Admin Dose 100 MCG; Start 06/04/16 at 06:00 Pantoprazole (Protonix Iv) 40 mg DAILY@06 IV Last administered on 07/24/16 05: 58; Admin Dose 40 MG; Start 06/09/16 at 06:00 Lorazepam (Ativan) 1 mg Q6H PRN IV AGITATION/ANXIETY Last administered on 01:50; Admin Dose 1 MG; Start 06/08/16 at 18:00 Acetaminophen/ Hydrocodone Bitart ([place] (5/325)) 1 tab Q6H PRN PO PAIN Last administered on 07/20/16 09:30; Admin Dose 1 TAB; Start 06/11/16 at 17:30 Collagenase (Santyl) 1 applic DAILY TOP Last administered on 07/22/16 09:18; Admin Dose 1 APPLIC; Start 06/12/16 at 09:00 Nystatin (Nystatin Susp) 5 ml QID PO Last administered on 07/24/16 09:33; Admin Dose 5 ML; Start 06/18/16 at 17:00 Scopolamine (Transderm-Scop) 1 patch Q72H TRANSDERM Last administered on 20:59; Admin Dose 1 PATCH; Start 06/22/16 at 21:00 Fluconazole 100 mg 100 mg DAILY PO Last administered on 07/24/16 09:33; Admin Dose 100 MG; Start 06/28/16 at 09:00 Sodium Chloride (NS) 1,000 ml @ 100 mls/hr Q10H IV Last administered on 20:21; Admin Dose 100 MLS/HR; Start 07/01/16 at 19:00 Lactobacillus Acidoph/Bulgaricus (Floranex) 1 tab BID PO Last administered on 09:33; Admin Dose 1 TAB; Start 07/01/16 at 21:00 Ibuprofen (Motrin) 600 mg TID PRN PO FEVER Last administered on 07/04/16 01:29 ; Admin Dose 600 MG; Start 07/03/16 at 19:30 Metoclopramide HCl (Reglan) 10 mg Q6H PRN IV NAUSEA Last administered on 01:47; Admin Dose 10 MG; Start 07/16/16 at 08:30 Hydrocodone Bit/ Homatropine Methylb (Hycodan Liquid) 5 ml TID PRN PO COUGH Last administered on 07/24/16 16:08; Admin Dose 5 ML; Start 07/23/16 at 13:30 GUERLINE SULLIVAN MD Jul 24, 2016 18:20
[2016-07-24 20:00] VITALS: BP 106/63; RESP 18
[2016-07-24] MEDS: LORAZEPAM 2 MG INJ IV PRN (20:40)
[2016-07-24] MEDS: ONDANSETRON INJ 8 MG in SOD CHLORIDE 0.9% 50 ML IV PRN (21:18)
[2016-07-25] MEDS: ALBUTEROL/IPRATROPIUM (NEB) 3 ML AMP HHN SCH ×4 (01:24→21:29)
[2016-07-25] MEDS: SOD CHLORIDE 0.9% 1,000 ML IV SCH ×3 (03:00→22:24)
[2016-07-25 04:56] LABS: BASOPHILS % 0.3 % (0.0-2.0); HEMATOCRIT 26.9 % (37.0-47.0); HEMOGLOBIN 9.3 g/dl (12.0-16.0); LYMPHOCYTES # 0.9 10^3/ul (0.8-2.9); LYMPHOCYTES % 17.5 % (15.0-51.0); MEAN CORPUSCULAR HEMOGLOBIN 29.9 pg (29.0-33.0); MEAN CORPUSCULAR HGB CONC 34.6 g/dl (32.0-37.0); MEAN CORPUSCULAR VOLUME 86.4 fl (82.0-101.0); MEAN PLATELET VOLUME 9.6 fl (7.4-10.4); MONOCYTE # 0.8 10^3/ul (0.3-0.9); MONOCYTES % 15.4 % (0.0-11.0); NEUTROPHIL # 3.4 10^3/ul (1.6-7.5); NEUTROPHILS % 66.8 % (39.0-77.0); RED BLOOD COUNT 3.11 10^6/ul (4.20-5.40); RED CELL DISTRIBUTION WIDTH 14.8 % (11.5-14.5); UNCORRECTED WBC 5.1 10^3/ul (4.8-10.8); WHITE BLOOD COUNT 5.1 10^3/ul (4.8-10.8)
[2016-07-25 05:10] LABS: CONDITION 1; LH ANALYZER COMMENTS 1
[2016-07-25 05:11] LABS: PLATELET COUNT 45 10^3/UL (140-440)
[2016-07-25 05:34] LABS: ALBUMIN 2.9 g/dl (3.3-4.9)
[2016-07-25 05:35] LABS: POTASSIUM 3.2 mmol/L (3.5-5.1)
[2016-07-25 05:37] LABS: ALBUMIN/GLOBULIN RATIO 1.31; BILIRUBIN,INDIRECT 0.3 mg/dl (0-1.1); BILIRUBIN,TOTAL 0.3 mg/dl (0.2-1.3); CALCIUM 8.1 mg/dl (8.4-10.2); CREATININE 0.38 mg/dl (0.44-1.00); TOTAL PROTEIN 5.1 g/dl (6.1-8.1)
[2016-07-25] MEDS: PANTOPRAZOLE 40 MG INJ IV SCH (05:39)
[2016-07-25] MEDS: LEVOTHYROXINE 100 MCG TAB PO SCH (05:39)
--- NOTE | 2016-07-25 06:43 | PN ---
DATE: 07/24/2016 SUBJECTIVE: Patient is sleeping. No fevers overnight, no events. WBC today 7.2 with a platelet co unt 50, neutrophils 63, BUN 7, creatinine 0.42. DIAGNOSTICS: Chest x-ray done yesterday revealed no evidence for pneumonia. INDWELLINGS: Trach, PICC line. PHYSICAL EXAMINATION: GENERAL: Chronically ill-appearing, middle-aged [place] woman who is in no distress. HEENT: Head atraumatic, normocephalic. Sclerae anicteric. Buccal mucosa dry. NECK: Supple. Tracheostomy present. CHEST: Rise symmetrical. Breath sounds clear. HEART: S1, S2. ABDOMEN: Soft, bowel tones present. EXTREMITIES: Without cyanosis. ASSESSMENT: 1. Lymphoma, currently day 19, cycle of chemotherapy. 2. Status post neutropenic fevers. 3. Status post pneumonia. 4. Status post Pseudomonas aeruginosa urinary tract infection. 5. History of methicillin-resistant Staphylococcus aureus nares colonization. 6. Respiratory failure, status post tracheostomy secondary to neck mass resulting in respiratory c ompromise. PLAN: The patient remains stable. Continue present care, prophylactic Acyclovir and Diflucan. Fo [facility] oncology, pulmonary recommendations. Dictated By: RODRÍGUEZ ERAZO SAND CASTER for JILLIAN CUEVAS/NTS Conf#: [id number] DID#: [id number]
[2016-07-25] MEDS: ONDANSETRON 4 MG INJ IV PRN ×2 (06:52→21:06)
[2016-07-25 08:10] VITALS: BP 117/69; RESP 18
[2016-07-25] MEDS: ACYCLOVIR 400 MG TAB PO SCH ×2 (08:54→21:05)
[2016-07-25] MEDS: FLUCONAZOLE 100 MG TAB PO SCH (08:54)
[2016-07-25] MEDS: OCULAR LUBRICANT 3.5 GM OPH OINT BOTH EYES SCH (08:54)
[2016-07-25] MEDS: LACTOBACILLUS CHEW TAB PO SCH ×2 (08:54→21:04)
[2016-07-25] MEDS: NYSTATIN SUSP 5 ML CUP PO SCH ×4 (08:55→21:05)
[2016-07-25] MEDS: ARTIFICIAL TEARS 15 ML OPH BOTH EYES SCH ×4 (08:55→21:03)
[2016-07-25] MEDS: COLLAGENASE 30 GM TUBE TOP SCH (08:55)
[2016-07-25] MEDS: GABAPENTIN 100 MG CAP PO SCH ×3 (08:55→21:05)
[2016-07-25] MEDS: HYDROCODONE/HOMATROPINE 5ML CUP PO PRN (12:40)
[2016-07-25] MEDS: ONDANSETRON INJ 8 MG in SOD CHLORIDE 0.9% 50 ML IV PRN ×2 (12:43→18:42)
[2016-07-25] MEDS: HYDROCODONE/APAP (5/325) TAB PO PRN (13:08)
--- NOTE | 2016-07-25 13:57 | CONS ---
Date/Time of Note Date/Time of Note DATE: 07/25/16 TIME: 13:54 Assessment/Plan Assessment/Plan Chief Complaint/Hosp Course SUBJECTIVE: No fevers overnight, no events, alert, fels good, on PMV. DIAGNOSTICS: Chest x-ray done yesterday revealed no evidence for pneumonia. INDWELLINGS: Trach, PICC line. PHYSICAL EXAMINATION: GENERAL: Chronically ill-appearing, middle-aged [place] woman who is in no distress. HEENT: Head atraumatic, normocephalic. Sclerae anicteric. Buccal mucosa dry. NECK: Supple. Tracheostomy present. CHEST: Rise symmetrical. Breath sounds clear. HEART: S1, S2. ABDOMEN: Soft, bowel tones present. EXTREMITIES: Without cyanosis. ASSESSMENT: 1. Lymphoma, currently day 19, cycle of chemotherapy. 2. Status post neutropenic fevers. 3. Status post pneumonia. 4. Status post Pseudomonas aeruginosa urinary tract infection. 5. History of methicillin-resistant Staphylococcus aureus nares colonization. 6. S/p respiratory failure requiring tracheostomy secondary to neck mass and respiratory compromise===> tolerates PMV. PLAN: The patient remains stable. Overall improving. Continue present care, prophylactic Acyclovir and Diflucan. Follow oncology, pulmonary recommendations. [facility] staff Problems: Consultation Date/Type/Reason Admit Date/Time Jun 02, 2016 at 15:10 Initial Consult Date 06/02/16 Type of Consultation: id Referring Provider: TELLY SOLANO MD Exam/Review of Systems Vital Signs Vitals Vital Signs Date Time Temp Pulse Resp B/P Pulse Ox O2 Delivery O2 Flow Rate FiO2 07/25/16 08:25 21 07/25/16 08:20 111 18 98 07/25/16 08:10 99.3 117/69 07/24/16 14:37 Aerosol 5.0 Intake and Output 07/24/16 07/24/16 07/25/16 15:00 23:00 07:00 Intake Total 954 ml 120 ml Balance 954 ml 120 ml Results Result Diagram: 07/25/16 0440 07/25/16 0440 Results 24 hrs Laboratory Tests Test 07/25/16 04:40 Alanine Aminotransferase (ALT/SGPT) 73 H Albumin 2.9 L Albumin/Globulin Ratio 1.31 Alkaline Phosphatase 138 H Anion Gap 13 Aspartate Amino Transf (AST/SGOT) 71 H Basophils # 0.0 Basophils % 0.3 Blood Morphology Comment Blood Urea Nitrogen 6 L Calcium Level 8.1 L Carbon Dioxide Level 28 Chloride Level 101 Creatinine 0.38 L Direct Bilirubin 0.00 Eosinophils # 0.0 Eosinophils % 0.0 Globulin 2.20 Glucose Level 98 Hematocrit 26.9 L Hemoglobin 9.3 L Indirect Bilirubin 0.3 Lymphocytes # 0.9 Lymphocytes % 17.5 Mean Corpuscular Hemoglobin 29.9 Mean Corpuscular Hemoglobin Concent 34.6 Mean Corpuscular Volume 86.4 Mean Platelet Volume 9.6 Monocytes # 0.8 Monocytes % 15.4 H Neutrophils # 3.4 Neutrophils % 66.8 Nucleated Red Blood Cells # 0.0 Nucleated Red Blood Cells % 0.0 Platelet Count 45 L Potassium Level 3.2 L Red Blood Count 3.11 L Red Cell Distribution Width 14.8 H Sodium Level 139 Total Bilirubin 0.3 Total Protein 5.1 L White Blood Count 5.1 # Medications Medications Current Medications Acyclovir (Zovirax) 400 mg BID PO Last administered on 07/25/16 08:54; Admin Dose 400 MG; Start 06/02/16 at 14:30 Diphenhydramine HCl (Benadryl) 25 mg Q4H PRN IV ALLERGIC REACTION Last administered on 06/06/16at 20:26; Admin Dose 25 MG; Start 06/02/16 at 18:30 Dexamethasone 10 mg 10 mg Q4H PRN IV ALLERGIC REACTION; Start 06/02/16 at 18: 30 Ondansetron HCl/ Sodium Chloride (Zofran Inj/NS) 54 ml @ 216 mls/hr Q6H PRN IV NAUSEA AND/OR VOMITING Last administered on 07/25/16 12:43; Admin Dose 216 MLS/HR; Start 06/02/16 at 18:30 Ondansetron HCl (Zofran Inj) 4 mg Q6H PRN IV NAUSEA AND/OR VOMITING Last administered on 07/25/16 06:52; Admin Dose 4 MG; Start 06/03/16 at 17:00 Acetaminophen (Tylenol Tab) 650 mg Q6H PRN PO PAIN LEVEL 1-3 OR FEVER Last administered on 07/12/16 16:42; Admin Dose 650 MG; Start 06/03/16 at 17:00 Acetaminophen (Tylenol Supp) 650 mg Q6H PRN [place] PAIN LEVEL 1-3 OR FEVER Last administered on 07/15/16 19:50; Admin Dose 650 MG; Start 06/03/16 at 17:00 Docusate Sodium (Colace) 100 mg Q12H PRN PO CONSTIPATION Last administered on 11:02; Admin Dose 100 MG; Start 06/03/16 at 17:00 Magnesium Hydroxide (Milk Of Mag) 30 ml DAILY PRN PO CONSTIPATION Last administered on 06/20/16 06:13; Admin Dose 30 ML; Start 06/03/16 at 17:00 Bisacodyl (Dulcolax) 5 mg DAILY PRN PO CONSTIPATION Last administered on 11:02; Admin Dose 5 MG; Start 06/03/16 at 17:00 Bisacodyl (Dulcolax Supp) 10 mg DAILY PRN [place] CONSTIPATION Last administered on 06/21/16 05:18; Admin Dose 10 MG; Start 06/03/16 at 17:00 Sodium Biphosphate/ Sodium Phosphate (Fleet Enema) 133 ml DAILY PRN [place] CONSTIPATION; Start 06/03/16 at 17:00 Enoxaparin Sodium (Lovenox) 30 mg DAILY SC Last administered on 06/12/16 08: 27; Admin Dose 30 MG; Start 06/04/16 at 09:00; Status Future Hold Eye Lubricant (Artificial Tears Oph) 2 drop QID BOTH EYES Last administered on 07/25/16 12:44; Admin Dose 2 DROP; Start 06/03/16 at 21:00 Eye Lubricant (Akwa Oint) 1 applic DAILY BOTH EYES Last administered on 09:52; Admin Dose 1 APPLIC; Start 06/04/16 at 09:00 Gabapentin (Neurontin) 200 mg TID PO Last administered on 07/25/16 12:59; Admin Dose 200 MG; Start 06/03/16 at 21:00 Levothyroxine Sodium (Synthroid) 100 mcg DAILY@06 PO Last administered on 05:39; Admin Dose 100 MCG; Start 06/04/16 at 06:00 Pantoprazole (Protonix Iv) 40 mg DAILY@06 IV Last administered on 07/25/16 05: 39; Admin Dose 40 MG; Start 06/09/16 at 06:00 Lorazepam (Ativan) 1 mg Q6H PRN IV AGITATION/ANXIETY Last administered on 20:40; Admin Dose 1 MG; Start 06/08/16 at 18:00 Acetaminophen/ Hydrocodone Bitart ([place] (5/325)) 1 tab Q6H PRN PO PAIN Last administered on 07/25/16 13:08; Admin Dose 1 TAB; Start 06/11/16 at 17:30 Collagenase (Santyl) 1 applic DAILY TOP Last administered on 07/22/16 09:18; Admin Dose 1 APPLIC; Start 06/12/16 at 09:00 Nystatin (Nystatin Susp) 5 ml QID PO Last administered on 07/25/16 12:59; Admin Dose 5 ML; Start 06/18/16 at 17:00 Scopolamine (Transderm-Scop) 1 patch Q72H TRANSDERM Last administered on 20:59; Admin Dose 1 PATCH; Start 06/22/16 at 21:00 Fluconazole 100 mg 100 mg DAILY PO Last administered on 07/25/16 08:54; Admin Dose 100 MG; Start 06/28/16 at 09:00 Sodium Chloride (NS) 1,000 ml @ 100 mls/hr Q10H IV Last administered on 20:21; Admin Dose 100 MLS/HR; Start 07/01/16 at 19:00 Lactobacillus Acidoph/Bulgaricus (Floranex) 1 tab BID PO Last administered on 08:54; Admin Dose 1 TAB; Start 07/01/16 at 21:00 Ibuprofen (Motrin) 600 mg TID PRN PO FEVER Last administered on 07/04/16 01:29 ; Admin Dose 600 MG; Start 07/03/16 at 19:30 Metoclopramide HCl (Reglan) 10 mg Q6H PRN IV NAUSEA Last administered on 01:47; Admin Dose 10 MG; Start 07/16/16 at 08:30 Hydrocodone Bit/ Homatropine Methylb (Hycodan Liquid) 5 ml TID PRN PO COUGH Last administered on 07/25/16 12:40; Admin Dose 5 ML; Start 07/23/16 at 13:30 RODRÍGUEZ ERAZO ESCROW REPRESENTATIVE Jul 25, 2016 13:57
--- NOTE | 2016-07-25 14:00 | CONS ---
Date/Time of Note Date/Time of Note DATE: 07/25/16 TIME: 13:59 Assessment/Plan Assessment/Plan Chief Complaint/Hosp Course 56 yo female with massive neck mass causing tracheal compression and airway compromise s/p tracheostomy placement. 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 Pt was given cycle 1A and 1B of R HyperCVAD but had only a partial response to therapy and severe side effects. We have thus changed her chemotherapy regimen. She is now s/p cycle 1B of R-IVACand has now completed her chemotherapy. Most recent CT neck showed resolution of the mass. . Problems: Additional Assessment/Plan # Burkitt's lymphoma - currently day 20 cycle 1B R -IVAC. chemotherapy regimen is as follows Part 2: R-IVAC Rituximab (Rituxan) 375 mg/m2 IV once on day 1 Ifosfamide (Ifex) 1500 mg/m2 IV over 2 hours once per day on days 1 to 5 Etoposide (Vepesid) 60 mg/m2 IV over 1 hour once per day on days 1 to 5 Cytarabine (Cytosar) 2 g/m2 IV over 3 hours Q12H on days 1 & 2 (4 doses total) [place] (Mesnex) 300 mg/m2 (mixed with Ifosfamide (Ifex)) , then 300mg/m2 IV every four hours x 2, on days 1 to 5 #Neck mass with trach in place -now that patient is not longer neutropenic and counts are stable, Neupogen can be dc'd -pulmonary to evaluate trach to see if it can be removed # Neutropenic fevers -appreciate ID recs. continue meropenem and vancomycin. ANC rising appropriately -f/u blood and urine cultures -ANC ok, can dc neupogen # Supportive Care and prophylactic meds -Started Acyclovir 400mg BID -fluconazole 100mg q day -Neupogen 300mcg q day day after chemotherapy is completed -Zofran ordered prn nausea #Expected Pancytopenia -keep Hg> 8 and platelets > 10. . patient remains TRANSFUSION DEPENDANT. s/p blood transfusion yesterday. patient remains transfusion dependant # Elevated AST and ALT, likely related to methotrexate. now resolved Approximately 40 min were spent at patient's bedside and in coordination of her care Consultation Date/Type/Reason Admit Date/Time Jun 02, 2016 at 15:10 Initial Consult Date 06/02/16 Type of Consultation: Hematology Reason for Consultation burkitt's lymphoma Referring Provider: TELLY SOLANO MD 24 HR Interval Summary Free Text/Dictation no acute overnight events. trach is capped. pt is breathing well Exam/Review of Systems Vital Signs Vitals Vital Signs Date Time Temp Pulse Resp B/P Pulse Ox O2 Delivery O2 Flow Rate FiO2 07/25/16 08:25 21 07/25/16 08:20 111 18 98 07/25/16 08:10 99.3 117/69 07/24/16 14:37 Aerosol 5.0 Intake and Output 07/24/16 07/24/16 07/25/16 15:00 23:00 07:00 Intake Total 954 ml 120 ml Balance 954 ml 120 ml Exam Constitutional: alert, oriented Psych: no complaints Head: atraumatic, normocephalic Eyes: nl conjunctiva Neck: other (trach in place) Respiratory: clear to auscultation, normal air movement Cardiovascular: regular rate and rhythm Gastrointestinal: soft Musculoskeletal: nl extremities to inspection, nl gait and stance Extremities: normal pulses Results Result Diagram: 07/25/16 0440 07/25/16 0440 Results 24 hrs Laboratory Tests Test 07/25/16 04:40 Alanine Aminotransferase (ALT/SGPT) 73 H Albumin 2.9 L Albumin/Globulin Ratio 1.31 Alkaline Phosphatase 138 H Anion Gap 13 Aspartate Amino Transf (AST/SGOT) 71 H Basophils # 0.0 Basophils % 0.3 Blood Morphology Comment Blood Urea Nitrogen 6 L Calcium Level 8.1 L Carbon Dioxide Level 28 Chloride Level 101 Creatinine 0.38 L Direct Bilirubin 0.00 Eosinophils # 0.0 Eosinophils % 0.0 Globulin 2.20 Glucose Level 98 Hematocrit 26.9 L Hemoglobin 9.3 L Indirect Bilirubin 0.3 Lymphocytes # 0.9 Lymphocytes % 17.5 Mean Corpuscular Hemoglobin 29.9 Mean Corpuscular Hemoglobin Concent 34.6 Mean Corpuscular Volume 86.4 Mean Platelet Volume 9.6 Monocytes # 0.8 Monocytes % 15.4 H Neutrophils # 3.4 Neutrophils % 66.8 Nucleated Red Blood Cells # 0.0 Nucleated Red Blood Cells % 0.0 Platelet Count 45 L Potassium Level 3.2 L Red Blood Count 3.11 L Red Cell Distribution Width 14.8 H Sodium Level 139 Total Bilirubin 0.3 Total Protein 5.1 L White Blood Count 5.1 # Medications Medications Current Medications Acyclovir (Zovirax) 400 mg BID PO Last administered on 07/25/16 08:54; Admin Dose 400 MG; Start 06/02/16 at 14:30 Diphenhydramine HCl (Benadryl) 25 mg Q4H PRN IV ALLERGIC REACTION Last administered on 06/06/16 20:26; Admin Dose 25 MG; Start 06/02/16 at 18:30 Dexamethasone 10 mg 10 mg Q4H PRN IV ALLERGIC REACTION; Start 06/02/16 at 18: 30 Ondansetron HCl/ Sodium Chloride (Zofran Inj/NS) 54 ml @ 216 mls/hr Q6H PRN IV NAUSEA AND/OR VOMITING Last administered on 07/25/16 12:43; Admin Dose 216 MLS/HR; Start 06/02/16 at 18:30 Ondansetron HCl (Zofran Inj) 4 mg Q6H PRN IV NAUSEA AND/OR VOMITING Last administered on 07/25/16 06:52; Admin Dose 4 MG; Start 06/03/16 at 17:00 Acetaminophen (Tylenol Tab) 650 mg Q6H PRN PO PAIN LEVEL 1-3 OR FEVER Last administered on 07/12/16 16:42; Admin Dose 650 MG; Start 06/03/16 at 17:00 Acetaminophen (Tylenol Supp) 650 mg Q6H PRN [place] PAIN LEVEL 1-3 OR FEVER Last administered on 07/15/16 19:50; Admin Dose 650 MG; Start 06/03/16 at 17:00 Docusate Sodium (Colace) 100 mg Q12H PRN PO CONSTIPATION Last administered on 11:02; Admin Dose 100 MG; Start 06/03/16 at 17:00 Magnesium Hydroxide (Milk Of Mag) 30 ml DAILY PRN PO CONSTIPATION Last administered on 06/20/16 06:13; Admin Dose 30 ML; Start 06/03/16 at 17:00 Bisacodyl (Dulcolax) 5 mg DAILY PRN PO CONSTIPATION Last administered on 11:02; Admin Dose 5 MG; Start 06/03/16 at 17:00 Bisacodyl (Dulcolax Supp) 10 mg DAILY PRN [place] CONSTIPATION Last administered on 12/31/16at 05:18; Admin Dose 10 MG; Start 06/03/16 at 17:00 Sodium Biphosphate/ Sodium Phosphate (Fleet Enema) 133 ml DAILY PRN [place] CONSTIPATION; Start 06/03/16 at 17:00 Enoxaparin Sodium (Lovenox) 30 mg DAILY SC Last administered on 06/12/16 08: 27; Admin Dose 30 MG; Start 06/04/16 at 09:00; Status Future Hold Eye Lubricant (Artificial Tears Oph) 2 drop QID BOTH EYES Last administered on 07/25/16 12:44; Admin Dose 2 DROP; Start 06/03/16 at 21:00 Eye Lubricant (Akwa Oint) 1 applic DAILY BOTH EYES Last administered on 09:52; Admin Dose 1 APPLIC; Start 06/04/16 at 09:00 Gabapentin (Neurontin) 200 mg TID PO Last administered on 07/25/16 12:59; Admin Dose 200 MG; Start 06/03/16 at 21:00 Levothyroxine Sodium (Synthroid) 100 mcg DAILY@06 PO Last administered on 05:39; Admin Dose 100 MCG; Start 06/04/16 at 06:00 Pantoprazole (Protonix Iv) 40 mg DAILY@06 IV Last administered on 07/25/16 05: 39; Admin Dose 40 MG; Start 06/09/16 at 06:00 Lorazepam (Ativan) 1 mg Q6H PRN IV AGITATION/ANXIETY Last administered on 20:40; Admin Dose 1 MG; Start 06/08/16 at 18:00 Acetaminophen/ Hydrocodone Bitart ([place] (5/325)) 1 tab Q6H PRN PO PAIN Last administered on 07/25/16 13:08; Admin Dose 1 TAB; Start 06/11/16 at 17:30 Collagenase (Santyl) 1 applic DAILY TOP Last administered on 07/22/16 09:18; Admin Dose 1 APPLIC; Start 06/12/16 at 09:00 Nystatin (Nystatin Susp) 5 ml QID PO Last administered on 07/25/16 12:59; Admin Dose 5 ML; Start 06/18/16 at 17:00 Scopolamine (Transderm-Scop) 1 patch Q72H TRANSDERM Last administered on 20:59; Admin Dose 1 PATCH; Start 06/22/16 at 21:00 Fluconazole 100 mg 100 mg DAILY PO Last administered on 07/25/16 08:54; Admin Dose 100 MG; Start 06/28/16 at 09:00 Sodium Chloride (NS) 1,000 ml @ 100 mls/hr Q10H IV Last administered on 20:21; Admin Dose 100 MLS/HR; Start 07/01/16 at 19:00 Lactobacillus Acidoph/Bulgaricus (Floranex) 1 tab BID PO Last administered on 08:54; Admin Dose 1 TAB; Start 07/01/16 at 21:00 Ibuprofen (Motrin) 600 mg TID PRN PO FEVER Last administered on 07/04/16 01:29 ; Admin Dose 600 MG; Start 07/03/16 at 19:30 Metoclopramide HCl (Reglan) 10 mg Q6H PRN IV NAUSEA Last administered on 01:47; Admin Dose 10 MG; Start 07/16/16 at 08:30 Hydrocodone Bit/ Homatropine Methylb (Hycodan Liquid) 5 ml TID PRN PO COUGH Last administered on 07/25/16 12:40; Admin Dose 5 ML; Start 07/23/16 at 13:30 CHANDRIKA MERLOS M.D. Jul 25, 2016 14:00
--- NOTE | 2016-07-25 17:08 | PN ---
Date/Time of Note Date/Time of Note DATE: 07/25/16 TIME: 17:07 Assessment/Plan VTE Prophylaxis VTE Prophylaxis Intervention: other Lines/Catheters IV Catheter Type (from Nrsg): PICC Line Central line still needed: Yes Urinary Cath still in place: No Assessment/Plan Chief Complaint/Hosp Course IMPRESSION: The patient has Burkitt's lymphoma HX tracheostomy, status post thyroid mass, pancytopenia, abnormal liver function test. better SEPSIS better gallstone ABN LFT stable anemia post chemo better HYPOKALEMIA better uti pancytopenia better DECANNULATION TODAY PLAN per oncology LABS chemo per dr dang per id capped trac Problems: Subjective 24 Hr Interval Summary Respiratory: no complaints Cardiovascular: no complaints Exam/Review of Systems Vital Signs Vitals Vital Signs Date Time Temp Pulse Resp B/P Pulse Ox O2 Delivery O2 Flow Rate FiO2 07/25/16 15:37 101 18 98 21 07/25/16 08:10 99.3 117/69 07/24/16 14:37 Aerosol 5.0 Intake and Output 07/24/16 07/24/16 07/25/16 15:00 23:00 07:00 Intake Total 954 ml 120 ml Balance 954 ml 120 ml Exam Respiratory: clear to auscultation Cardiovascular: regular rate and rhythm Gastrointestinal: soft Musculoskeletal: nl extremities to inspection Results Result Diagram: 07/25/16 0440 07/25/16 0440 Results 24 hrs Laboratory Tests Test 07/25/16 04:40 Alanine Aminotransferase (ALT/SGPT) 73 H Albumin 2.9 L Albumin/Globulin Ratio 1.31 Alkaline Phosphatase 138 H Anion Gap 13 Aspartate Amino Transf (AST/SGOT) 71 H Basophils # 0.0 Basophils % 0.3 Blood Morphology Comment Blood Urea Nitrogen 6 L Calcium Level 8.1 L Carbon Dioxide Level 28 Chloride Level 101 Creatinine 0.38 L Direct Bilirubin 0.00 Eosinophils # 0.0 Eosinophils % 0.0 Globulin 2.20 Glucose Level 98 Hematocrit 26.9 L Hemoglobin 9.3 L Indirect Bilirubin 0.3 Lymphocytes # 0.9 Lymphocytes % 17.5 Mean Corpuscular Hemoglobin 29.9 Mean Corpuscular Hemoglobin Concent 34.6 Mean Corpuscular Volume 86.4 Mean Platelet Volume 9.6 Monocytes # 0.8 Monocytes % 15.4 H Neutrophils # 3.4 Neutrophils % 66.8 Nucleated Red Blood Cells # 0.0 Nucleated Red Blood Cells % 0.0 Platelet Count 45 L Potassium Level 3.2 L Red Blood Count 3.11 L Red Cell Distribution Width 14.8 H Sodium Level 139 Total Bilirubin 0.3 Total Protein 5.1 L White Blood Count 5.1 # Medications Medications Current Medications Acyclovir (Zovirax) 400 mg BID PO Last administered on 07/25/16 08:54; Admin Dose 400 MG; Start 06/02/16 at 14:30 Diphenhydramine HCl (Benadryl) 25 mg Q4H PRN IV ALLERGIC REACTION Last administered on 06/06/16 20:26; Admin Dose 25 MG; Start 06/02/16 at 18:30 Dexamethasone 10 mg 10 mg Q4H PRN IV ALLERGIC REACTION; Start 06/02/16 at 18: 30 Ondansetron HCl/ Sodium Chloride (Zofran Inj/NS) 54 ml @ 216 mls/hr Q6H PRN IV NAUSEA AND/OR VOMITING Last administered on 07/25/16 12:43; Admin Dose 216 MLS/HR; Start 06/02/16 at 18:30 Ondansetron HCl (Zofran Inj) 4 mg Q6H PRN IV NAUSEA AND/OR VOMITING Last administered on 07/25/16 06:52; Admin Dose 4 MG; Start 06/03/16 at 17:00 Acetaminophen (Tylenol Tab) 650 mg Q6H PRN PO PAIN LEVEL 1-3 OR FEVER Last administered on 07/12/16 16:42; Admin Dose 650 MG; Start 06/03/16 at 17:00 Acetaminophen (Tylenol Supp) 650 mg Q6H PRN [place] PAIN LEVEL 1-3 OR FEVER Last administered on 07/15/16 19:50; Admin Dose 650 MG; Start 06/03/16 at 17:00 Docusate Sodium (Colace) 100 mg Q12H PRN PO CONSTIPATION Last administered on 11:02; Admin Dose 100 MG; Start 06/03/16 at 17:00 Magnesium Hydroxide (Milk Of Mag) 30 ml DAILY PRN PO CONSTIPATION Last administered on 06/20/16 06:13; Admin Dose 30 ML; Start 06/03/16 at 17:00 Bisacodyl (Dulcolax) 5 mg DAILY PRN PO CONSTIPATION Last administered on 11:02; Admin Dose 5 MG; Start 06/03/16 at 17:00 Bisacodyl (Dulcolax Supp) 10 mg DAILY PRN [place] CONSTIPATION Last administered on 06/21/16at 05:18; Admin Dose 10 MG; Start 06/03/16 at 17:00 Sodium Biphosphate/ Sodium Phosphate (Fleet Enema) 133 ml DAILY PRN [place] CONSTIPATION; Start 06/03/16 at 17:00 Enoxaparin Sodium (Lovenox) 30 mg DAILY SC Last administered on 06/12/16at 08: 27; Admin Dose 30 MG; Start 06/04/16 at 09:00; Status Future Hold Eye Lubricant (Artificial Tears Oph) 2 drop QID BOTH EYES Last administered on 07/25/16 12:44; Admin Dose 2 DROP; Start 06/03/16 at 21:00 Eye Lubricant (Akwa Oint) 1 applic DAILY BOTH EYES Last administered on 09:52; Admin Dose 1 APPLIC; Start 06/04/16 at 09:00 Gabapentin (Neurontin) 200 mg TID PO Last administered on 07/25/16 12:59; Admin Dose 200 MG; Start 06/03/16 at 21:00 Levothyroxine Sodium (Synthroid) 100 mcg DAILY@06 PO Last administered on 05:39; Admin Dose 100 MCG; Start 06/04/16 at 06:00 Pantoprazole (Protonix Iv) 40 mg DAILY@06 IV Last administered on 07/25/16 05: 39; Admin Dose 40 MG; Start 06/09/16 at 06:00 Lorazepam (Ativan) 1 mg Q6H PRN IV AGITATION/ANXIETY Last administered on 20:40; Admin Dose 1 MG; Start 06/08/16 at 18:00 Acetaminophen/ Hydrocodone Bitart ([place] (5/325)) 1 tab Q6H PRN PO PAIN Last administered on 07/25/16 13:08; Admin Dose 1 TAB; Start 06/11/16 at 17:30 Collagenase (Santyl) 1 applic DAILY TOP Last administered on 07/22/16 09:18; Admin Dose 1 APPLIC; Start 06/12/16 at 09:00 Nystatin (Nystatin Susp) 5 ml QID PO Last administered on 07/25/16 12:59; Admin Dose 5 ML; Start 06/18/16 at 17:00 Scopolamine (Transderm-Scop) 1 patch Q72H TRANSDERM Last administered on 20:59; Admin Dose 1 PATCH; Start 06/22/16 at 21:00 Fluconazole 100 mg 100 mg DAILY PO Last administered on 07/25/16 08:54; Admin Dose 100 MG; Start 06/28/16 at 09:00 Sodium Chloride (NS) 1,000 ml @ 100 mls/hr Q10H IV Last administered on 20:21; Admin Dose 100 MLS/HR; Start 07/01/16 at 19:00 Lactobacillus Acidoph/Bulgaricus (Floranex) 1 tab BID PO Last administered on 08:54; Admin Dose 1 TAB; Start 07/01/16 at 21:00 Ibuprofen (Motrin) 600 mg TID PRN PO FEVER Last administered on 07/04/16 01:29 ; Admin Dose 600 MG; Start 07/03/16 at 19:30 Metoclopramide HCl (Reglan) 10 mg Q6H PRN IV NAUSEA Last administered on 01:47; Admin Dose 10 MG; Start 07/16/16 at 08:30 Hydrocodone Bit/ Homatropine Methylb (Hycodan Liquid) 5 ml TID PRN PO COUGH Last administered on 07/25/16 12:40; Admin Dose 5 ML; Start 07/23/16 at 13:30 GUERLINE SULLIVAN MD Jul 25, 2016 17:08
[2016-07-25] MEDS ORDERED: POTASSIUM CHLORIDE (SR) 10 MEQ TAB PO ONE (17:30)
[2016-07-25 20:51] VITALS: BP 126/70; PULSE 98; RESP 18
[2016-07-25] MEDS: SCOPOLAMINE 1.5 MG PATCH TRANSDERM SCH (21:05)
[2016-07-25] MEDS: LORAZEPAM 2 MG INJ IV PRN (22:24)
[2016-07-26] MEDS: ALBUTEROL/IPRATROPIUM (NEB) 3 ML AMP HHN SCH ×6 (02:00→20:10)
[2016-07-26] MEDS: LEVOTHYROXINE 100 MCG TAB PO SCH (05:53)
[2016-07-26] MEDS: PANTOPRAZOLE 40 MG INJ IV SCH (05:53)
[2016-07-26 07:34] LABS: ALBUMIN 2.9 g/dl (3.3-4.9)
[2016-07-26 07:35] LABS: POTASSIUM 3.6 mmol/L (3.5-5.1)
[2016-07-26 07:37] LABS: ALBUMIN/GLOBULIN RATIO 1.31; BILIRUBIN,INDIRECT 0.2 mg/dl (0-1.1); BILIRUBIN,TOTAL 0.2 mg/dl (0.2-1.3); CREATININE 0.38 mg/dl (0.44-1.00); TOTAL PROTEIN 5.1 g/dl (6.1-8.1)
[2016-07-26 08:06] VITALS: BP 109/57; RESP 18
[2016-07-26] MEDS: SOD CHLORIDE 0.9% 1,000 ML IV SCH ×2 (09:00→20:29)
[2016-07-26] MEDS: OCULAR LUBRICANT 3.5 GM OPH OINT BOTH EYES SCH (09:00)
[2016-07-26] MEDS: COLLAGENASE 30 GM TUBE TOP SCH (09:00)
[2016-07-26 09:13] LABS: HEMOGLOBIN 8.7 g/dl (12.0-16.0); RED BLOOD COUNT 2.92 10^6/ul (4.20-5.40)
[2016-07-26 09:14] LABS: HEMATOCRIT 25.6 % (37.0-47.0); MEAN CORPUSCULAR HEMOGLOBIN 29.8 pg (29.0-33.0); MEAN CORPUSCULAR VOLUME 87.7 fl (82.0-101.0); MEAN PLATELET VOLUME 13.2 fl (7.4-10.4); RED CELL DISTRIBUTION WIDTH 14.3 % (11.5-14.5)
[2016-07-26 09:15] LABS: BASOPHILS % 0.6 % (0.0-2.0); LYMPHOCYTES # 1.3 10^3/ul (0.8-2.9); LYMPHOCYTES % 25.6 % (15.0-51.0); MONOCYTE # 0.7 10^3/ul (0.3-0.9); MONOCYTES % 14.4 % (0.0-11.0); NEUTROPHIL # 2.1 10^3/ul (1.6-7.5)
[2016-07-26 09:16] LABS: PLATELET COUNT 54 10^3/UL (140-440)
[2016-07-26] MEDS: FLUCONAZOLE 100 MG TAB PO SCH (09:20)
[2016-07-26] MEDS: NYSTATIN SUSP 5 ML CUP PO SCH ×4 (09:20→20:30)
[2016-07-26] MEDS: GABAPENTIN 100 MG CAP PO SCH ×3 (09:20→20:30)
[2016-07-26] MEDS: ACYCLOVIR 400 MG TAB PO SCH ×2 (09:20→20:30)
[2016-07-26] MEDS: LACTOBACILLUS CHEW TAB PO SCH ×2 (09:20→20:30)
[2016-07-26] MEDS: ARTIFICIAL TEARS 15 ML OPH BOTH EYES SCH ×4 (09:20→20:29)
--- NOTE | 2016-07-26 11:40 | PN ---
Date/Time of Note Date/Time of Note DATE: 07/26/16 TIME: 11:39 Assessment/Plan VTE Prophylaxis VTE Prophylaxis Intervention: other Lines/Catheters IV Catheter Type (from Nrsg): PICC Line Central line still needed: Yes Urinary Cath still in place: No Assessment/Plan Chief Complaint/Hosp Course IMPRESSION: The patient has Burkitt's lymphoma HX tracheostomy, status post thyroid mass, pancytopenia, abnormal liver function test. better SEPSIS better gallstone ABN LFT stable anemia post chemo better HYPOKALEMIA better uti pancytopenia better DECANNULATION done home soon arrange for home health PLAN per oncology LABS chemo per dr dang per id capped trac Problems: Subjective 24 Hr Interval Summary Respiratory: no complaints Cardiovascular: no complaints Gastrointestinal: no complaints Exam/Review of Systems Vital Signs Vitals Vital Signs Date Time Temp Pulse Resp B/P Pulse Ox O2 Delivery O2 Flow Rate FiO2 07/26/16 08:55 85 24 100 Aerosol Mask 8.0 40 07/26/16 08:06 98.3 109/57 Intake and Output 07/25/16 07/25/16 07/26/16 15:00 23:00 07:00 Intake Total 54 ml 844 ml 1600 ml Output Total 900 ml Balance 54 ml 844 ml 700 ml Exam Neck: supple Respiratory: clear to auscultation Cardiovascular: regular rate and rhythm Gastrointestinal: soft Musculoskeletal: nl extremities to inspection Results Result Diagram: 07/26/16 0637 07/26/16 0637 Results 24 hrs Laboratory Tests Test 07/26/16 06:37 Alanine Aminotransferase (ALT/SGPT) 78 H Albumin 2.9 L Albumin/Globulin Ratio 1.31 Alkaline Phosphatase 147 H Anion Gap 13 Aspartate Amino Transf (AST/SGOT) 74 H Basophils # 0.0 Basophils % 0.6 Blood Urea Nitrogen 5 L Calcium Level 8.0 L Carbon Dioxide Level 28 Chloride Level 102 Creatinine 0.38 L Direct Bilirubin 0.00 Eosinophils # 0.0 Eosinophils % 0.0 Globulin 2.20 Glucose Level 106 Hematocrit 25.6 L Hemoglobin 8.7 L Indirect Bilirubin 0.2 Lymphocytes # 1.3 Lymphocytes % 25.6 Mean Corpuscular Hemoglobin 29.8 Mean Corpuscular Hemoglobin Concent 34.0 Mean Corpuscular Volume 87.7 Mean Platelet Volume 13.2 #H Monocytes # 0.7 Monocytes % 14.4 H Neutrophils # 2.1 Neutrophils % 41.0 Nucleated Red Blood Cells # 0.0 Nucleated Red Blood Cells % 0.0 Platelet Count 54 L Potassium Level 3.6 Red Blood Count 2.92 L Red Cell Distribution Width 14.3 Sodium Level 139 Total Bilirubin 0.2 Total Protein 5.1 L White Blood Count 5.0 Medications Medications Current Medications Acyclovir (Zovirax) 400 mg BID PO Last administered on 07/26/16 09:20; Admin Dose 400 MG; Start 06/02/16 at 14:30 Diphenhydramine HCl (Benadryl) 25 mg Q4H PRN IV ALLERGIC REACTION Last administered on 06/06/16 20:26; Admin Dose 25 MG; Start 06/02/16 at 18:30 Dexamethasone 10 mg 10 mg Q4H PRN IV ALLERGIC REACTION; Start 06/02/16 at 18: 30 Ondansetron HCl/ Sodium Chloride (Zofran Inj/NS) 54 ml @ 216 mls/hr Q6H PRN IV NAUSEA AND/OR VOMITING Last administered on 07/25/16 18:42; Admin Dose 216 MLS/HR; Start 06/02/16 at 18:30 Ondansetron HCl (Zofran Inj) 4 mg Q6H PRN IV NAUSEA AND/OR VOMITING Last administered on 07/25/16 21:06; Admin Dose 4 MG; Start 06/03/16 at 17:00 Acetaminophen (Tylenol Tab) 650 mg Q6H PRN PO PAIN LEVEL 1-3 OR FEVER Last administered on 07/12/16 16:42; Admin Dose 650 MG; Start 06/03/16 at 17:00 Acetaminophen (Tylenol Supp) 650 mg Q6H PRN [place] PAIN LEVEL 1-3 OR FEVER Last administered on 07/15/16 19:50; Admin Dose 650 MG; Start 06/03/16 at 17:00 Docusate Sodium (Colace) 100 mg Q12H PRN PO CONSTIPATION Last administered on 11:02; Admin Dose 100 MG; Start 06/03/16 at 17:00 Magnesium Hydroxide (Milk Of Mag) 30 ml DAILY PRN PO CONSTIPATION Last administered on 06/20/16 06:13; Admin Dose 30 ML; Start 06/03/16 at 17:00 Bisacodyl (Dulcolax) 5 mg DAILY PRN PO CONSTIPATION Last administered on 11:02; Admin Dose 5 MG; Start 06/03/16 at 17:00 Bisacodyl (Dulcolax Supp) 10 mg DAILY PRN [place] CONSTIPATION Last administered on 06/21/16at 05:18; Admin Dose 10 MG; Start 06/03/16 at 17:00 Sodium Biphosphate/ Sodium Phosphate (Fleet Enema) 133 ml DAILY PRN [place] CONSTIPATION; Start 06/03/16 at 17:00 Enoxaparin Sodium (Lovenox) 30 mg DAILY SC Last administered on 06/12/16at 08: 27; Admin Dose 30 MG; Start 06/04/16 at 09:00; Status Future Hold Eye Lubricant (Artificial Tears Oph) 2 drop QID BOTH EYES Last administered on 07/26/16 09:20; Admin Dose 2 DROP; Start 06/03/16 at 21:00 Eye Lubricant (Akwa Oint) 1 applic DAILY BOTH EYES Last administered on 09:52; Admin Dose 1 APPLIC; Start 06/04/16 at 09:00 Gabapentin (Neurontin) 200 mg TID PO Last administered on 07/26/16 09:20; Admin Dose 200 MG; Start 06/03/16 at 21:00 Levothyroxine Sodium (Synthroid) 100 mcg DAILY@06 PO Last administered on 05:53; Admin Dose 100 MCG; Start 06/04/16 at 06:00 Pantoprazole (Protonix Iv) 40 mg DAILY@06 IV Last administered on 07/26/16 05: 53; Admin Dose 40 MG; Start 06/09/16 at 06:00 Lorazepam (Ativan) 1 mg Q6H PRN IV AGITATION/ANXIETY Last administered on 22:24; Admin Dose 1 MG; Start 06/08/16 at 18:00 Acetaminophen/ Hydrocodone Bitart ([place] (5/325)) 1 tab Q6H PRN PO PAIN Last administered on 07/25/16 13:08; Admin Dose 1 TAB; Start 06/11/16 at 17:30 Collagenase (Santyl) 1 applic DAILY TOP Last administered on 07/22/16 09:18; Admin Dose 1 APPLIC; Start 06/12/16 at 09:00 Nystatin (Nystatin Susp) 5 ml QID PO Last administered on 07/26/16 09:20; Admin Dose 5 ML; Start 06/18/16 at 17:00 Scopolamine (Transderm-Scop) 1 patch Q72H TRANSDERM Last administered on 21:05; Admin Dose 1 PATCH; Start 06/22/16 at 21:00 Fluconazole 100 mg 100 mg DAILY PO Last administered on 07/26/16 09:20; Admin Dose 100 MG; Start 06/28/16 at 09:00 Sodium Chloride (NS) 1,000 ml @ 100 mls/hr Q10H IV Last administered on 22:24; Admin Dose 100 MLS/HR; Start 07/01/16 at 19:00 Lactobacillus Acidoph/Bulgaricus (Floranex) 1 tab BID PO Last administered on 09:20; Admin Dose 1 TAB; Start 07/01/16 at 21:00 Ibuprofen (Motrin) 600 mg TID PRN PO FEVER Last administered on 07/04/16 01:29 ; Admin Dose 600 MG; Start 07/03/16 at 19:30 Metoclopramide HCl (Reglan) 10 mg Q6H PRN IV NAUSEA Last administered on 01:47; Admin Dose 10 MG; Start 07/16/16 at 08:30 Hydrocodone Bit/ Homatropine Methylb (Hycodan Liquid) 5 ml TID PRN PO COUGH Last administered on 07/25/16 12:40; Admin Dose 5 ML; Start 07/23/16 at 13:30 GUERLINE SULLIVAN MD Jul 26, 2016 11:40
[2016-07-26] MEDS: ONDANSETRON INJ 8 MG in SOD CHLORIDE 0.9% 50 ML IV PRN (13:25)
--- NOTE | 2016-07-26 16:12 | PN ---
DATE: 07/26/2016 PULMONARY FOLLOWUP NOTE SUBJECTIVE: Patient is stable. Post-decannulation. Still has mild pain around the trach stoma sit e, but respiratory status stable overall. PHYSICAL EXAMINATION: VITAL SIGNS: Temperature 98, pulse 95, blood pressure 109/57, O2 saturation 96% on 4 liters. NECK: Supple. No JVD or lymphadenopathy. CARDIAC EXAM: S1, S2. No added sounds or murmurs. CHEST: Diminished air entry bilaterally. ABDOMEN: Soft, nontender. No guarding or rebound. EXTREMITIES: No cyanosis, clubbing, edema. NEUROLOGIC: Generalized weakness. LABORATORY: White count 5.0, hemoglobin 8.7, platelets of 54. BUN 5, creatinine 0.38. IMPRESSION: 1. History of Burkitt's lymphoma. 2. Status post respiratory failure, with decannulation. 3. Significant deconditioning. PLAN: 1. Continue trach stoma care. 2. Supplemental O2. 3. Discharge planning okay from a pulmonary standpoint. Dictated By: SANDEEP CEDENO/YUNI Conf#: [id number] DID#: [id number]
--- NOTE | 2016-07-26 18:33 | CONS ---
Date/Time of Note Date/Time of Note DATE: 07/26/16 TIME: 18:31 Assessment/Plan Assessment/Plan Chief Complaint/Hosp Course SUBJECTIVE: No fevers overnight, no events, alert, feels good, s/p decannulated. DIAGNOSTICS: Chest x-ray done yesterday revealed no evidence for pneumonia. INDWELLINGS: PICC line. PHYSICAL EXAMINATION: GENERAL: Chronically ill-appearing, middle-aged [place] woman who is in no distress. HEENT: Head atraumatic, normocephalic. Sclerae anicteric. Buccal mucosa dry. NECK: Supple. CHEST: Rise symmetrical. Breath sounds clear. HEART: S1, S2. ABDOMEN: Soft, bowel tones present. EXTREMITIES: Without cyanosis. ASSESSMENT: 1. Lymphoma, currently day 19, cycle of chemotherapy. 2. Status post neutropenic fevers. 3. Status post pneumonia. 4. Status post Pseudomonas aeruginosa urinary tract infection. 5. History of methicillin-resistant Staphylococcus aureus nares colonization. 6. S/p respiratory failure requiring tracheostomy ==> decannulated PLAN: The patient remains stable. Overall improving. Continue present care, prophylactic Acyclovir and Diflucan. Follow oncology, pulmonary recommendations. Pending dc [facility] staff Problems: Consultation Date/Type/Reason Admit Date/Time Jun 02, 2016 at 15:10 Initial Consult Date 06/02/16 Type of Consultation: ID Referring Provider: TELLY SOLANO MD Exam/Review of Systems Vital Signs Vitals Vital Signs Date Time Temp Pulse Resp B/P Pulse Ox O2 Delivery O2 Flow Rate FiO2 07/26/16 14:00 95 22 100 Nasal Cannula 4.0 36 07/26/16 08:06 98.3 109/57 Intake and Output 07/25/16 07/25/16 07/26/16 15:00 23:00 07:00 Intake Total 54 ml 844 ml 1600 ml Output Total 900 ml Balance 54 ml 844 ml 700 ml Results Result Diagram: 07/26/16 0637 07/26/16 0637 Results 24 hrs Laboratory Tests Test 07/26/16 06:37 Alanine Aminotransferase (ALT/SGPT) 78 H Albumin 2.9 L Albumin/Globulin Ratio 1.31 Alkaline Phosphatase 147 H Anion Gap 13 Aspartate Amino Transf (AST/SGOT) 74 H Basophils # 0.0 Basophils % 0.6 Blood Urea Nitrogen 5 L Calcium Level 8.0 L Carbon Dioxide Level 28 Chloride Level 102 Creatinine 0.38 L Direct Bilirubin 0.00 Eosinophils # 0.0 Eosinophils % 0.0 Globulin 2.20 Glucose Level 106 Hematocrit 25.6 L Hemoglobin 8.7 L Indirect Bilirubin 0.2 Lymphocytes # 1.3 Lymphocytes % 25.6 Mean Corpuscular Hemoglobin 29.8 Mean Corpuscular Hemoglobin Concent 34.0 Mean Corpuscular Volume 87.7 Mean Platelet Volume 13.2 #H Monocytes # 0.7 Monocytes % 14.4 H Neutrophils # 2.1 Neutrophils % 41.0 Nucleated Red Blood Cells # 0.0 Nucleated Red Blood Cells % 0.0 Platelet Count 54 L Potassium Level 3.6 Red Blood Count 2.92 L Red Cell Distribution Width 14.3 Sodium Level 139 Total Bilirubin 0.2 Total Protein 5.1 L White Blood Count 5.0 Medications Medications Current Medications Acyclovir (Zovirax) 400 mg BID PO Last administered on 07/26/16 09:20; Admin Dose 400 MG; Start 06/02/16 at 14:30 Diphenhydramine HCl (Benadryl) 25 mg Q4H PRN IV ALLERGIC REACTION Last administered on 06/06/16at 20:26; Admin Dose 25 MG; Start 06/02/16 at 18:30 Dexamethasone 10 mg 10 mg Q4H PRN IV ALLERGIC REACTION; Start 06/02/16 at 18: 30 Ondansetron HCl/ Sodium Chloride (Zofran Inj/NS) 54 ml @ 216 mls/hr Q6H PRN IV NAUSEA AND/OR VOMITING Last administered on 07/26/16 13:25; Admin Dose 216 MLS/HR; Start 06/02/16 at 18:30 Ondansetron HCl (Zofran Inj) 4 mg Q6H PRN IV NAUSEA AND/OR VOMITING Last administered on 07/25/16 21:06; Admin Dose 4 MG; Start 06/03/16 at 17:00 Acetaminophen (Tylenol Tab) 650 mg Q6H PRN PO PAIN LEVEL 1-3 OR FEVER Last administered on 07/12/16 16:42; Admin Dose 650 MG; Start 06/03/16 at 17:00 Acetaminophen (Tylenol Supp) 650 mg Q6H PRN [place] PAIN LEVEL 1-3 OR FEVER Last administered on 07/15/16 19:50; Admin Dose 650 MG; Start 06/03/16 at 17:00 Docusate Sodium (Colace) 100 mg Q12H PRN PO CONSTIPATION Last administered on 11:02; Admin Dose 100 MG; Start 06/03/16 at 17:00 Magnesium Hydroxide (Milk Of Mag) 30 ml DAILY PRN PO CONSTIPATION Last administered on 06/20/16 06:13; Admin Dose 30 ML; Start 06/03/16 at 17:00 Bisacodyl (Dulcolax) 5 mg DAILY PRN PO CONSTIPATION Last administered on 11:02; Admin Dose 5 MG; Start 06/03/16 at 17:00 Bisacodyl (Dulcolax Supp) 10 mg DAILY PRN [place] CONSTIPATION Last administered on 06/21/16 05:18; Admin Dose 10 MG; Start 06/03/16 at 17:00 Sodium Biphosphate/ Sodium Phosphate (Fleet Enema) 133 ml DAILY PRN [place] CONSTIPATION; Start 06/03/16 at 17:00 Enoxaparin Sodium (Lovenox) 30 mg DAILY SC Last administered on 06/12/16 08: 27; Admin Dose 30 MG; Start 06/04/16 at 09:00; Status Future Hold Eye Lubricant (Artificial Tears Oph) 2 drop QID BOTH EYES Last administered on 07/26/16 13:22; Admin Dose 2 DROP; Start 06/03/16 at 21:00 Eye Lubricant (Akwa Oint) 1 applic DAILY BOTH EYES Last administered on 09:52; Admin Dose 1 APPLIC; Start 06/04/16 at 09:00 Gabapentin (Neurontin) 200 mg TID PO Last administered on 07/26/16 13:22; Admin Dose 200 MG; Start 06/03/16 at 21:00 Levothyroxine Sodium (Synthroid) 100 mcg DAILY@06 PO Last administered on 05:53; Admin Dose 100 MCG; Start 06/04/16 at 06:00 Pantoprazole (Protonix Iv) 40 mg DAILY@06 IV Last administered on 07/26/16 05: 53; Admin Dose 40 MG; Start 06/09/16 at 06:00 Lorazepam (Ativan) 1 mg Q6H PRN IV AGITATION/ANXIETY Last administered on 22:24; Admin Dose 1 MG; Start 06/08/16 at 18:00 Acetaminophen/ Hydrocodone Bitart ([place] (5/325)) 1 tab Q6H PRN PO PAIN Last administered on 07/25/16 13:08; Admin Dose 1 TAB; Start 06/11/16 at 17:30 Collagenase (Santyl) 1 applic DAILY TOP Last administered on 07/22/16 09:18; Admin Dose 1 APPLIC; Start 06/12/16 at 09:00 Nystatin (Nystatin Susp) 5 ml QID PO Last administered on 07/26/16 09:20; Admin Dose 5 ML; Start 06/18/16 at 17:00 Scopolamine (Transderm-Scop) 1 patch Q72H TRANSDERM Last administered on 21:05; Admin Dose 1 PATCH; Start 06/22/16 at 21:00 Fluconazole 100 mg 100 mg DAILY PO Last administered on 07/26/16 09:20; Admin Dose 100 MG; Start 06/28/16 at 09:00 Sodium Chloride (NS) 1,000 ml @ 100 mls/hr Q10H IV Last administered on 22:24; Admin Dose 100 MLS/HR; Start 07/01/16 at 19:00 Lactobacillus Acidoph/Bulgaricus (Floranex) 1 tab BID PO Last administered on 09:20; Admin Dose 1 TAB; Start 07/01/16 at 21:00 Ibuprofen (Motrin) 600 mg TID PRN PO FEVER Last administered on 07/04/16 01:29 ; Admin Dose 600 MG; Start 07/03/16 at 19:30 Metoclopramide HCl (Reglan) 10 mg Q6H PRN IV NAUSEA Last administered on 01:47; Admin Dose 10 MG; Start 07/16/16 at 08:30 Hydrocodone Bit/ Homatropine Methylb (Hycodan Liquid) 5 ml TID PRN PO COUGH Last administered on 07/25/16 12:40; Admin Dose 5 ML; Start 07/23/16 at 13:30 RODRÍGUEZ ERAZO NP Jul 26, 2016 18:33
[2016-07-26 19:00] VITALS: BP 114/73; RESP 18
[2016-07-26] MEDS: ONDANSETRON 4 MG INJ IV PRN (20:29)
[2016-07-27] MEDS: ALBUTEROL/IPRATROPIUM (NEB) 3 ML AMP HHN SCH ×4 (01:27→20:03)
[2016-07-27 06:08] LABS: BASOPHILS % 0.3 % (0.0-2.0); HEMATOCRIT 25.1 % (37.0-47.0); HEMOGLOBIN 8.7 g/dl (12.0-16.0); LYMPHOCYTES # 1.1 10^3/ul (0.8-2.9); LYMPHOCYTES % 21.6 % (15.0-51.0); MEAN CORPUSCULAR HEMOGLOBIN 30.1 pg (29.0-33.0); MEAN CORPUSCULAR HGB CONC 34.6 g/dl (32.0-37.0); MEAN CORPUSCULAR VOLUME 87.1 fl (82.0-101.0); MEAN PLATELET VOLUME 10.4 fl (7.4-10.4); MONOCYTE # 0.5 10^3/ul (0.3-0.9); MONOCYTES % 9.4 % (0.0-11.0); NEUTROPHIL # 3.5 10^3/ul (1.6-7.5); NEUTROPHILS % 68.7 % (39.0-77.0); PLATELET COUNT 75 10^3/UL (140-440); RED BLOOD COUNT 2.88 10^6/ul (4.20-5.40); RED CELL DISTRIBUTION WIDTH 14.8 % (11.5-14.5); UNCORRECTED WBC 5.1 10^3/ul (4.8-10.8); WHITE BLOOD COUNT 5.1 10^3/ul (4.8-10.8)
[2016-07-27 06:09] LABS: ALBUMIN 2.6 g/dl (3.3-4.9)
[2016-07-27 06:10] LABS: POTASSIUM 3.3 mmol/L (3.5-5.1)
[2016-07-27 06:12] LABS: ALBUMIN/GLOBULIN RATIO 1.18; BILIRUBIN,INDIRECT 0.2 mg/dl (0-1.1); BILIRUBIN,TOTAL 0.2 mg/dl (0.2-1.3); CREATININE 0.36 mg/dl (0.44-1.00); TOTAL PROTEIN 4.8 g/dl (6.1-8.1)
[2016-07-27] MEDS: LEVOTHYROXINE 100 MCG TAB PO SCH (06:12)
[2016-07-27] MEDS: PANTOPRAZOLE 40 MG INJ IV SCH (06:12)
[2016-07-27] MEDS: SOD CHLORIDE 0.9% 1,000 ML IV SCH ×2 (06:12→15:00)
[2016-07-27 06:13] LABS: CALCIUM 8.2 mg/dl (8.4-10.2)
[2016-07-27 06:29] LABS: CONDITION 1; LH ANALYZER COMMENTS 1
--- NOTE | 2016-07-27 06:29 | PN ---
DATE: 07/26/2016 SUBJECTIVE: Ms. Landrum is a 56-year-old lady with history of Burkitt lymphoma status post multip le lines of chemotherapy. The patient now is on R-IVAC regimen. She had one course of chemotherapy , and her tumor is decreased in size. Still, the patient complains of a lot of pain in the tracheos vilma site in the neck. OBJECTIVE: GENERAL: Shows moderately built female who is alert, oriented, cooperative. VITAL SIGNS: She is afebrile. NECK: Supple. The patient has surgical dressing over the neck where she had the tracheostomy. No lymphadenopathy in the neck. HEART: Unremarkable except for sinus tachycardia. LUNGS: There are decreased breath sounds in both bases. ABDOMEN: Soft. No masses. GENITOURINARY: External genitalia normal. SKIN: Showed no rashes or petechiae. MORTGAGE LENDER: No focal deficit. LABORATORY DATA: Her WBC is 5,000, but the hemoglobin is down to 8.7, and the platelet count is 54, 000. The patient PT, INR, and CMP are stable. IMPRESSION: 1. Burkitt lymphoma status post salvage chemotherapy with decrease in blood count. 2. Pain in the neck possibly secondary to lymphoma. PLAN: We need to monitor her for fever. We will also need to monitor her CBC. She might need feliciano sfusion soon of packed cells and platelets. Dictated By: DANIELA MAYEN MD PC/NTS Conf#: [id number] DID#: [id number]
[2016-07-27 07:50] VITALS: BP 119/61; RESP 19
[2016-07-27] MEDS: COLLAGENASE 30 GM TUBE TOP SCH (09:00)
[2016-07-27] MEDS: OCULAR LUBRICANT 3.5 GM OPH OINT BOTH EYES SCH (09:00)
[2016-07-27] MEDS: LACTOBACILLUS CHEW TAB PO SCH ×2 (10:03→21:39)
[2016-07-27] MEDS: ACYCLOVIR 400 MG TAB PO SCH ×2 (10:03→21:39)
[2016-07-27] MEDS: NYSTATIN SUSP 5 ML CUP PO SCH ×4 (10:04→21:39)
[2016-07-27] MEDS: GABAPENTIN 100 MG CAP PO SCH ×3 (10:04→21:39)
[2016-07-27] MEDS: FLUCONAZOLE 100 MG TAB PO SCH (10:04)
[2016-07-27] MEDS ORDERED: POTASSIUM CHLORIDE (SR) 20 MEQ TAB PO SCH (12:00)
[2016-07-27] MEDS: ARTIFICIAL TEARS 15 ML OPH BOTH EYES SCH ×4 (12:50→21:40)
[2016-07-27] MEDS ORDERED: POTASSIUM CHLORIDE 250 ML IVPB ONE (14:30)
[2016-07-27] MEDS: ONDANSETRON INJ 8 MG in SOD CHLORIDE 0.9% 50 ML IV PRN ×2 (14:48→21:05)
[2016-07-27] MEDS: HYDROCODONE/APAP (5/325) TAB PO PRN ×2 (14:48→22:02)
[2016-07-27] MEDS: ONDANSETRON 4 MG INJ IV PRN (18:51)
[2016-07-27 19:53] VITALS: BP 110/60; RESP 20
--- NOTE | 2016-07-27 20:33 | PN ---
DATE: 07/27/2016 SUBJECTIVE: Patient is alert, feels good, looks comfortable, no fevers. Vital signs stable. WBC today 5.1, platelets 75, no bands. BUN 4, creatinine 0.36. INDWELLINGS: PICC line. PHYSICAL EXAMINATION GENERAL: Fragile middle-aged [place] woman who is alert, in no distress. HEENT: Head atraumatic, normocephalic. Sclerae anicteric. Buccal mucosa pink. NECK: Supple. The patient has a dressing over her old tracheostomy site. CHEST: Rise symmetrical. Breath sounds clear. HEART: S1, S2. ABDOMEN: Soft. Bowel tones present. EXTREMITIES: No cyanosis. ASSESSMENT 1. Status post respiratory failure, patient was decannulated yesterday, stable on room air. 2. Burkitt lymphoma, patient just finished cycle of chemotherapy and plan is to resume in 2 weeks. 3. Status post Pseudomonas aeruginosa urinary tract infection. 4. Status post methicillin-resistant Staphylococcus aureus nares colonization and methicillin-resis tant Staphylococcus aureus pneumonia. 5. Status post neutropenic fevers. PLAN: The patient remains stable. Continue present care. Pending discharge planning. Dictated By: RODRÍGUEZ ERAZO [employer]STRUCTION JOB TITLES for JILLIAN CUEVAS/YUNI Conf#: [id number] DID#: [id number]
--- NOTE | 2016-07-27 23:30 | PN ---
Date/Time of Note Date/Time of Note DATE: 07/27/16 TIME: 23:29 Assessment/Plan VTE Prophylaxis VTE Prophylaxis Intervention: other Lines/Catheters IV Catheter Type (from Nrsg): PICC Line Central line still needed: Yes Urinary Cath still in place: No Assessment/Plan Chief Complaint/Hosp Course IMPRESSION: The patient has Burkitt's lymphoma HX tracheostomy, status post thyroid mass, pancytopenia, abnormal liver function test. better SEPSIS better gallstone ABN LFT stable anemia post chemo better HYPOKALEMIA uti pancytopenia better DECANNULATION done home soon arrange for home health PLAN per oncology LABS chemo per dr dang per id capped trac Problems: Subjective 24 Hr Interval Summary Cardiovascular: no complaints Gastrointestinal: no complaints Exam/Review of Systems Vital Signs Vitals Vital Signs Date Time Temp Pulse Resp B/P Pulse Ox O2 Delivery O2 Flow Rate FiO2 07/27/16 20:11 98 4.0 07/27/16 20:10 89 20 Nasal Cannula 07/27/16 19:53 98.4 110/60 07/26/16 14:00 36 Intake and Output 07/26/16 07/26/16 07/27/16 15:00 23:00 07:00 Intake Total 54 ml 920 ml 1500 ml Output Total 1100 ml Balance 54 ml 920 ml 400 ml Exam Neck: non-tender, supple Respiratory: clear to auscultation Cardiovascular: regular rate and rhythm Gastrointestinal: soft Results Result Diagram: 07/27/16 0423 07/27/16 0423 Results 24 hrs Laboratory Tests Test 07/27/16 04:23 Alanine Aminotransferase (ALT/SGPT) 70 H Albumin 2.6 L Albumin/Globulin Ratio 1.18 Alkaline Phosphatase 137 H Anion Gap 13 Aspartate Amino Transf (AST/SGOT) 64 H Basophils # 0.0 Basophils % 0.3 Blood Morphology Comment Blood Urea Nitrogen 4 L Calcium Level 8.2 L Carbon Dioxide Level 27 Chloride Level 103 Creatinine 0.36 L Direct Bilirubin 0.00 Eosinophils # 0.0 Eosinophils % 0.0 Globulin 2.20 Glucose Level 97 Hematocrit 25.1 L Hemoglobin 8.7 L Indirect Bilirubin 0.2 Lymphocytes # 1.1 Lymphocytes % 21.6 Mean Corpuscular Hemoglobin 30.1 Mean Corpuscular Hemoglobin Concent 34.6 Mean Corpuscular Volume 87.1 Mean Platelet Volume 10.4 # Monocytes # 0.5 Monocytes % 9.4 Neutrophils # 3.5 Neutrophils % 68.7 Nucleated Red Blood Cells # 0.0 Nucleated Red Blood Cells % 0.0 Platelet Count 75 #L Potassium Level 3.3 L Red Blood Count 2.88 L Red Cell Distribution Width 14.8 H Sodium Level 140 Total Bilirubin 0.2 Total Protein 4.8 L White Blood Count 5.1 Medications Medications Current Medications Acyclovir (Zovirax) 400 mg BID PO Last administered on 07/27/16 21:39; Admin Dose 400 MG; Start 06/02/16 at 14:30 Diphenhydramine HCl (Benadryl) 25 mg Q4H PRN IV ALLERGIC REACTION Last administered on 06/06/16at 20:26; Admin Dose 25 MG; Start 06/02/16 at 18:30 Dexamethasone 10 mg 10 mg Q4H PRN IV ALLERGIC REACTION; Start 06/02/16 at 18: 30 Ondansetron HCl/ Sodium Chloride (Zofran Inj/NS) 54 ml @ 216 mls/hr Q6H PRN IV NAUSEA AND/OR VOMITING Last administered on 07/27/16 21:05; Admin Dose 216 MLS/HR; Start 06/02/16 at 18:30 Ondansetron HCl (Zofran Inj) 4 mg Q6H PRN IV NAUSEA AND/OR VOMITING Last administered on 07/27/16 18:51; Admin Dose 4 MG; Start 06/03/16 at 17:00 Acetaminophen (Tylenol Tab) 650 mg Q6H PRN PO PAIN LEVEL 1-3 OR FEVER Last administered on 07/12/16 16:42; Admin Dose 650 MG; Start 06/03/16 at 17:00 Acetaminophen (Tylenol Supp) 650 mg Q6H PRN [place] PAIN LEVEL 1-3 OR FEVER Last administered on 07/15/16 19:50; Admin Dose 650 MG; Start 06/03/16 at 17:00 Docusate Sodium (Colace) 100 mg Q12H PRN PO CONSTIPATION Last administered on 11:02; Admin Dose 100 MG; Start 06/03/16 at 17:00 Magnesium Hydroxide (Milk Of Mag) 30 ml DAILY PRN PO CONSTIPATION Last administered on 06/20/16at 06:13; Admin Dose 30 ML; Start 06/03/16 at 17:00 Bisacodyl (Dulcolax) 5 mg DAILY PRN PO CONSTIPATION Last administered on 11:02; Admin Dose 5 MG; Start 06/03/16 at 17:00 Bisacodyl (Dulcolax Supp) 10 mg DAILY PRN [place] CONSTIPATION Last administered on 06/21/16 05:18; Admin Dose 10 MG; Start 06/03/16 at 17:00 Sodium Biphosphate/ Sodium Phosphate (Fleet Enema) 133 ml DAILY PRN [place] CONSTIPATION; Start 06/03/16 at 17:00 Enoxaparin Sodium (Lovenox) 30 mg DAILY SC Last administered on 06/12/16 08: 27; Admin Dose 30 MG; Start 06/04/16 at 09:00; Status Future Hold Eye Lubricant (Artificial Tears Oph) 2 drop QID BOTH EYES Last administered on 07/27/16 21:40; Admin Dose 2 DROP; Start 06/03/16 at 21:00 Eye Lubricant (Akwa Oint) 1 applic DAILY BOTH EYES Last administered on 09:52; Admin Dose 1 APPLIC; Start 06/04/16 at 09:00 Gabapentin (Neurontin) 200 mg TID PO Last administered on 07/27/16 21:39; Admin Dose 200 MG; Start 06/03/16 at 21:00 Levothyroxine Sodium (Synthroid) 100 mcg DAILY@06 PO Last administered on 06:12; Admin Dose 100 MCG; Start 06/04/16 at 06:00 Pantoprazole (Protonix Iv) 40 mg DAILY@06 IV Last administered on 07/27/16 06: 12; Admin Dose 40 MG; Start 06/09/16 at 06:00 Lorazepam (Ativan) 1 mg Q6H PRN IV AGITATION/ANXIETY Last administered on 22:24; Admin Dose 1 MG; Start 06/08/16 at 18:00 Acetaminophen/ Hydrocodone Bitart ([place] (5/325)) 1 tab Q6H PRN PO PAIN Last administered on 07/27/16 22:02; Admin Dose 1 TAB; Start 06/11/16 at 17:30 Collagenase (Santyl) 1 applic DAILY TOP Last administered on 07/22/16 09:18; Admin Dose 1 APPLIC; Start 06/12/16 at 09:00 Nystatin (Nystatin Susp) 5 ml QID PO Last administered on 07/27/16 21:39; Admin Dose 5 ML; Start 06/18/16 at 17:00 Scopolamine (Transderm-Scop) 1 patch Q72H TRANSDERM Last administered on 21:05; Admin Dose 1 PATCH; Start 06/22/16 at 21:00 Fluconazole 100 mg 100 mg DAILY PO Last administered on 07/27/16 10:04; Admin Dose 100 MG; Start 06/28/16 at 09:00 Sodium Chloride (NS) 1,000 ml @ 100 mls/hr Q10H IV Last administered on 06:12; Admin Dose 100 MLS/HR; Start 07/01/16 at 19:00 Lactobacillus Acidoph/Bulgaricus (Floranex) 1 tab BID PO Last administered on 21:39; Admin Dose 1 TAB; Start 07/01/16 at 21:00 Ibuprofen (Motrin) 600 mg TID PRN PO FEVER Last administered on 07/04/16 01:29 ; Admin Dose 600 MG; Start 07/03/16 at 19:30 Metoclopramide HCl (Reglan) 10 mg Q6H PRN IV NAUSEA Last administered on 01:47; Admin Dose 10 MG; Start 07/16/16 at 08:30 Hydrocodone Bit/ Homatropine Methylb (Hycodan Liquid) 5 ml TID PRN PO COUGH Last administered on 07/25/16 12:40; Admin Dose 5 ML; Start 07/23/16 at 13:30 GUERLINE SULLIVAN MD Jul 27, 2016 23:30
[2016-07-28] MEDS: LORAZEPAM 2 MG INJ IV PRN (00:15)
[2016-07-28] MEDS: ALBUTEROL/IPRATROPIUM (NEB) 3 ML AMP HHN SCH ×4 (01:45→19:46)
[2016-07-28 05:29] LABS: BASOPHILS % 0.4 % (0.0-2.0); HEMATOCRIT 23.3 % (37.0-47.0); HEMOGLOBIN 7.9 g/dl (12.0-16.0); LYMPHOCYTES # 1.1 10^3/ul (0.8-2.9); LYMPHOCYTES % 24.5 % (15.0-51.0); MEAN CORPUSCULAR HEMOGLOBIN 29.7 pg (29.0-33.0); MEAN CORPUSCULAR VOLUME 87.5 fl (82.0-101.0); MEAN PLATELET VOLUME 9.9 fl (7.4-10.4); MONOCYTE # 0.4 10^3/ul (0.3-0.9); MONOCYTES % 9.6 % (0.0-11.0); NEUTROPHILS % 65.5 % (39.0-77.0); PLATELET COUNT 104 10^3/UL (140-440); RED BLOOD COUNT 2.66 10^6/ul (4.20-5.40); RED CELL DISTRIBUTION WIDTH 14.8 % (11.5-14.5); UNCORRECTED WBC 4.6 10^3/ul (4.8-10.8); WHITE BLOOD COUNT 4.6 10^3/ul (4.8-10.8)
[2016-07-28 05:33] LABS: ALBUMIN 2.4 g/dl (3.3-4.9); POTASSIUM 3.8 mmol/L (3.5-5.1)
[2016-07-28 05:35] LABS: BILIRUBIN,INDIRECT 0.1 mg/dl (0-1.1); BILIRUBIN,TOTAL 0.1 mg/dl (0.2-1.3); CREATININE 0.36 mg/dl (0.44-1.00)
[2016-07-28 05:36] LABS: ALBUMIN/GLOBULIN RATIO 1.2; TOTAL PROTEIN 4.4 g/dl (6.1-8.1)
[2016-07-28 05:37] LABS: CALCIUM 8.2 mg/dl (8.4-10.2)
[2016-07-28 05:39] LABS: CONDITION 1; LH ANALYZER COMMENTS 1
[2016-07-28] MEDS: LEVOTHYROXINE 100 MCG TAB PO SCH (05:55)
[2016-07-28] MEDS: PANTOPRAZOLE 40 MG INJ IV SCH (05:55)
[2016-07-28] MEDS: SOD CHLORIDE 0.9% 1,000 ML IV SCH ×3 (05:58→21:26)
--- NOTE | 2016-07-28 06:52 | PN ---
DATE: 07/27/2016 HISTORY OF PRESENT ILLNESS: Ms. Landrum is a 56-year-old lady diagnosed with Burkitt's lymphoma a bout a year ago and has had multiple lines of chemotherapy. The patient recently was given salvage c hemotherapy with R-IVAC regimen. She appears to have had some response to it. She still complains of severe pain in the anterior neck and also nausea after eating. She is very emotional. PHYSICAL EXAMINATION: GENERAL: Shows a moderately built female who shows evidence of recent weight loss. VITAL SIGNS: Unremarkable and she is afebrile but is tachycardic. ENT: Normal except patient has stoma from tracheostomy in the neck. HEART and lungs: Unremarkable except for sinus tachycardia and decreased breath sounds in both bases . ABDOMEN: Soft, is slightly tender. EXTREMITIES: Show no edema. LYMPH NODES: No palpable lymphadenopathy. LABORATORY DATA: Her CBC today shows WBC 5100, hemoglobin 8.7 and platelets 75,000. Her CMP is unrem arkable except for persistently elevated liver enzymes. IMPRESSION: 1. Burkitt's lymphoma, recurrent on salvage chemotherapy. 2. Pancytopenia, possibly from chemotherapy. 3. Persistent pain in the anterior neck and nausea. PLAN AND DISCUSSION: This patient is getting pain medications almost around the clock plus Zofran. S he is still eating somewhat poorly. But it appears that she is responding to the new chemotherapy. I will monitor her CBC. Dictated By: DANIELA ORELLANA/YUNI Conf#: [id number] DID#: [id number]
[2016-07-28 08:36] VITALS: BP 111/67; RESP 20
[2016-07-28] MEDS: OCULAR LUBRICANT 3.5 GM OPH OINT BOTH EYES SCH (09:00)
[2016-07-28] MEDS: COLLAGENASE 30 GM TUBE TOP SCH (09:00)
[2016-07-28] MEDS: ONDANSETRON INJ 8 MG in SOD CHLORIDE 0.9% 50 ML IV PRN (09:23)
[2016-07-28] MEDS: ARTIFICIAL TEARS 15 ML OPH BOTH EYES SCH ×4 (09:23→21:25)
[2016-07-28] MEDS: LACTOBACILLUS CHEW TAB PO SCH ×2 (09:23→21:26)
[2016-07-28] MEDS: NYSTATIN SUSP 5 ML CUP PO SCH ×4 (09:23→21:27)
[2016-07-28] MEDS: FLUCONAZOLE 100 MG TAB PO SCH (09:23)
[2016-07-28] MEDS: GABAPENTIN 100 MG CAP PO SCH ×3 (09:23→21:27)
[2016-07-28] MEDS: ACYCLOVIR 400 MG TAB PO SCH ×2 (09:23→21:27)
--- NOTE | 2016-07-28 11:24 | CONS ---
Date/Time of Note Date/Time of Note DATE: 07/28/16 TIME: 11:23 Consult Date/Type/Reason Admit Date/Time Jun 02, 2016 at 15:10 Initial Consult Date 06/02/16 Type of Consultation: pulmonary Ordering Provider: TELLY SOLANO MD Subjective Patient remains stable no new events Still has moderate purulent drainage from trach stoma site Remains hemodynamically stable Blood work this morning shows low hemoglobin no evidence of GI bleeding Objective Vital Signs Date Time Temp Pulse Resp B/P Pulse Ox O2 Delivery O2 Flow Rate FiO2 07/28/16 08:41 92 20 98 Nasal Cannula 3.0 07/28/16 08:36 98.3 111/67 07/26/16 14:00 36 Intake and Output 07/27/16 07/27/16 07/28/16 15:00 23:00 07:00 Intake Total 1254 ml 1374 ml Balance 1254 ml 1374 ml GENERAL: Chronically ill-appearing lady comfortable at rest VITAL SIGNS: per chart NECK: Supple. No JVD or lymphadenopathy. Stoma site slowly healing CARDIAC EXAM: S1, S2. No added sounds or murmurs. CHEST: clear bilaterally, No added sounds, rales or wheezes ABDOMEN: Soft, nontender. No guarding or rebound. EXTREMITIES: No cyanosis, clubbing or edema. NEUROLOGIC: Generalized weakness. No focal deficits. Results/Medications Result Diagram: 07/28/16 0430 07/28/16 0430 Results 24 hrs Laboratory Tests Test 07/28/16 04:30 Alanine Aminotransferase (ALT/SGPT) 70 H Albumin 2.4 L Albumin/Globulin Ratio 1.20 Alkaline Phosphatase 131 H Anion Gap 14 Aspartate Amino Transf (AST/SGOT) 70 H Basophils # 0.0 Basophils % 0.4 Blood Morphology Comment Blood Urea Nitrogen 3 L Calcium Level 8.2 L Carbon Dioxide Level 29 Chloride Level 105 Creatinine 0.36 L Direct Bilirubin 0.00 Eosinophils # 0.0 Eosinophils % 0.0 Globulin 2.00 Glucose Level 92 Hematocrit 23.3 L Hemoglobin 7.9 L Indirect Bilirubin 0.1 Lymphocytes # 1.1 Lymphocytes % 24.5 Mean Corpuscular Hemoglobin 29.7 Mean Corpuscular Hemoglobin Concent 34.0 Mean Corpuscular Volume 87.5 Mean Platelet Volume 9.9 Monocytes # 0.4 Monocytes % 9.6 Neutrophils # 3.0 Neutrophils % 65.5 Nucleated Red Blood Cells # 0.0 Nucleated Red Blood Cells % 0.0 Platelet Count 104 #L Potassium Level 3.8 Red Blood Count 2.66 L Red Cell Distribution Width 14.8 H Sodium Level 144 Total Bilirubin 0.1 L Total Protein 4.4 L White Blood Count 4.6 L Medications Current Medications Acyclovir (Zovirax) 400 mg BID PO Last administered on 07/28/16 09:23; Admin Dose 400 MG; Start 06/02/16 at 14:30 Diphenhydramine HCl (Benadryl) 25 mg Q4H PRN IV ALLERGIC REACTION Last administered on 06/06/16 20:26; Admin Dose 25 MG; Start 06/02/16 at 18:30 Dexamethasone 10 mg 10 mg Q4H PRN IV ALLERGIC REACTION; Start 06/02/16 at 18: 30 Ondansetron HCl/ Sodium Chloride (Zofran Inj/NS) 54 ml @ 216 mls/hr Q6H PRN IV NAUSEA AND/OR VOMITING Last administered on 07/28/16 09:23; Admin Dose 216 MLS/HR; Start 06/02/16 at 18:30 Ondansetron HCl (Zofran Inj) 4 mg Q6H PRN IV NAUSEA AND/OR VOMITING Last administered on 07/27/16 18:51; Admin Dose 4 MG; Start 06/03/16 at 17:00 Acetaminophen (Tylenol Tab) 650 mg Q6H PRN PO PAIN LEVEL 1-3 OR FEVER Last administered on 07/12/16 16:42; Admin Dose 650 MG; Start 06/03/16 at 17:00 Acetaminophen (Tylenol Supp) 650 mg Q6H PRN [place] PAIN LEVEL 1-3 OR FEVER Last administered on 07/15/16 19:50; Admin Dose 650 MG; Start 06/03/16 at 17:00 Docusate Sodium (Colace) 100 mg Q12H PRN PO CONSTIPATION Last administered on 11:02; Admin Dose 100 MG; Start 06/03/16 at 17:00 Magnesium Hydroxide (Milk Of Mag) 30 ml DAILY PRN PO CONSTIPATION Last administered on 06/20/16 06:13; Admin Dose 30 ML; Start 06/03/16 at 17:00 Bisacodyl (Dulcolax) 5 mg DAILY PRN PO CONSTIPATION Last administered on 11:02; Admin Dose 5 MG; Start 06/03/16 at 17:00 Bisacodyl (Dulcolax Supp) 10 mg DAILY PRN [place] CONSTIPATION Last administered on 06/21/16 05:18; Admin Dose 10 MG; Start 06/03/16 at 17:00 Sodium Biphosphate/ Sodium Phosphate (Fleet Enema) 133 ml DAILY PRN [place] CONSTIPATION; Start 06/03/16 at 17:00 Enoxaparin Sodium (Lovenox) 30 mg DAILY SC Last administered on 06/12/16at 08: 27; Admin Dose 30 MG; Start 06/04/16 at 09:00; Status Future Hold Eye Lubricant (Artificial Tears Oph) 2 drop QID BOTH EYES Last administered on 07/28/16 09:23; Admin Dose 2 DROP; Start 06/03/16 at 21:00 Eye Lubricant (Akwa Oint) 1 applic DAILY BOTH EYES Last administered on 09:52; Admin Dose 1 APPLIC; Start 06/04/16 at 09:00 Gabapentin (Neurontin) 200 mg TID PO Last administered on 07/28/16 09:23; Admin Dose 200 MG; Start 06/03/16 at 21:00 Levothyroxine Sodium (Synthroid) 100 mcg DAILY@06 PO Last administered on 05:55; Admin Dose 100 MCG; Start 06/04/16 at 06:00 Pantoprazole (Protonix Iv) 40 mg DAILY@06 IV Last administered on 07/28/16 05: 55; Admin Dose 40 MG; Start 06/09/16 at 06:00 Lorazepam (Ativan) 1 mg Q6H PRN IV AGITATION/ANXIETY Last administered on 00:15; Admin Dose 1 MG; Start 06/08/16 at 18:00 Acetaminophen/ Hydrocodone Bitart ([place] (5/325)) 1 tab Q6H PRN PO PAIN Last administered on 07/27/16 22:02; Admin Dose 1 TAB; Start 06/11/16 at 17:30 Collagenase (Santyl) 1 applic DAILY TOP Last administered on 07/22/16 09:18; Admin Dose 1 APPLIC; Start 06/12/16 at 09:00 Nystatin (Nystatin Susp) 5 ml QID PO Last administered on 07/28/16 09:23; Admin Dose 5 ML; Start 06/18/16 at 17:00 Scopolamine (Transderm-Scop) 1 patch Q72H TRANSDERM Last administered on 21:05; Admin Dose 1 PATCH; Start 06/22/16 at 21:00 Fluconazole 100 mg 100 mg DAILY PO Last administered on 07/28/16 09:23; Admin Dose 100 MG; Start 06/28/16 at 09:00 Sodium Chloride (NS) 1,000 ml @ 100 mls/hr Q10H IV Last administered on 05:58; Admin Dose 100 MLS/HR; Start 07/01/16 at 19:00 Lactobacillus Acidoph/Bulgaricus (Floranex) 1 tab BID PO Last administered on 09:23; Admin Dose 1 TAB; Start 07/01/16 at 21:00 Ibuprofen (Motrin) 600 mg TID PRN PO FEVER Last administered on 07/04/16 01:29 ; Admin Dose 600 MG; Start 07/03/16 at 19:30 Metoclopramide HCl (Reglan) 10 mg Q6H PRN IV NAUSEA Last administered on 01:47; Admin Dose 10 MG; Start 07/16/16 at 08:30 Hydrocodone Bit/ Homatropine Methylb (Hycodan Liquid) 5 ml TID PRN PO COUGH Last administered on 07/25/16 12:40; Admin Dose 5 ML; Start 07/23/16 at 13:30 Assessment/Plan Chief Complaint/Hosp Course a/p 1. Respiratory failure trach in place. Now Decannulated. Continue stoma site care will have Gram stain and culture swab performed 2. Burkitts lymphoma s/p chemo. Continue heme onc recs. Problems: SANDEEP JACKSON MD, FCCP Jul 28, 2016 11:24
--- NOTE | 2016-07-28 11:37 | CONS ---
Date/Time of Note Date/Time of Note DATE: 07/28/16 TIME: 11:36 Assessment/Plan Assessment/Plan Chief Complaint/Hosp Course SUBJECTIVE: Patient is alert, feels good, looks comfortable, no fevers. Vital signs stable. INDWELLINGS: PICC line. PHYSICAL EXAMINATION GENERAL: Fragile middle-aged [place] woman who is alert, in no distress. HEENT: Head atraumatic, normocephalic. Sclerae anicteric. Buccal mucosa pink. NECK: Supple. The patient has a dressing over her old tracheostomy site. CHEST: Rise symmetrical. Breath sounds clear. HEART: S1, S2. ABDOMEN: Soft. Bowel tones present. EXTREMITIES: No cyanosis. ASSESSMENT 1. Status post respiratory failure, patient was decannulated, stable on room air. 2. Burkitt lymphoma, patient just finished cycle of chemotherapy and plan is to resume in 2 weeks. 3. Status post Pseudomonas aeruginosa urinary tract infection. 4. Status post methicillin-resistant Staphylococcus aureus nares colonization and methicillin-resistant Staphylococcus aureus pneumonia. 5. Status post neutropenic fevers. PLAN: The patient remains stable. Continue present care. Pending discharge planning. dw staff Problems: Consultation Date/Type/Reason Admit Date/Time Jun 02, 2016 at 15:10 Initial Consult Date 06/02/16 Type of Consultation: id Referring Provider: TELLY SOLANO MD Exam/Review of Systems Vital Signs Vitals Vital Signs Date Time Temp Pulse Resp B/P Pulse Ox O2 Delivery O2 Flow Rate FiO2 07/28/16 08:41 92 20 98 Nasal Cannula 3.0 07/28/16 08:36 98.3 111/67 07/26/16 14:00 36 Intake and Output 07/27/16 07/27/16 07/28/16 14:59 22:59 06:59 Intake Total 1254 ml 1374 ml Balance 1254 ml 1374 ml Results Result Diagram: 07/28/16 0430 07/28/16 0430 Results 24 hrs Laboratory Tests Test 07/28/16 04:30 Alanine Aminotransferase (ALT/SGPT) 70 H Albumin 2.4 L Albumin/Globulin Ratio 1.20 Alkaline Phosphatase 131 H Anion Gap 14 Aspartate Amino Transf (AST/SGOT) 70 H Basophils # 0.0 Basophils % 0.4 Blood Morphology Comment Blood Urea Nitrogen 3 L Calcium Level 8.2 L Carbon Dioxide Level 29 Chloride Level 105 Creatinine 0.36 L Direct Bilirubin 0.00 Eosinophils # 0.0 Eosinophils % 0.0 Globulin 2.00 Glucose Level 92 Hematocrit 23.3 L Hemoglobin 7.9 L Indirect Bilirubin 0.1 Lymphocytes # 1.1 Lymphocytes % 24.5 Mean Corpuscular Hemoglobin 29.7 Mean Corpuscular Hemoglobin Concent 34.0 Mean Corpuscular Volume 87.5 Mean Platelet Volume 9.9 Monocytes # 0.4 Monocytes % 9.6 Neutrophils # 3.0 Neutrophils % 65.5 Nucleated Red Blood Cells # 0.0 Nucleated Red Blood Cells % 0.0 Platelet Count 104 #L Potassium Level 3.8 Red Blood Count 2.66 L Red Cell Distribution Width 14.8 H Sodium Level 144 Total Bilirubin 0.1 L Total Protein 4.4 L White Blood Count 4.6 L Medications Medications Current Medications Acyclovir (Zovirax) 400 mg BID PO Last administered on 07/28/16 09:23; Admin Dose 400 MG; Start 06/02/16 at 14:30 Diphenhydramine HCl (Benadryl) 25 mg Q4H PRN IV ALLERGIC REACTION Last administered on 06/06/16at 20:26; Admin Dose 25 MG; Start 06/02/16 at 18:30 Dexamethasone 10 mg 10 mg Q4H PRN IV ALLERGIC REACTION; Start 06/02/16 at 18: 30 Ondansetron HCl/ Sodium Chloride (Zofran Inj/NS) 54 ml @ 216 mls/hr Q6H PRN IV NAUSEA AND/OR VOMITING Last administered on 07/28/16 09:23; Admin Dose 216 MLS/HR; Start 06/02/16 at 18:30 Ondansetron HCl (Zofran Inj) 4 mg Q6H PRN IV NAUSEA AND/OR VOMITING Last administered on 07/27/16 18:51; Admin Dose 4 MG; Start 06/03/16 at 17:00 Acetaminophen (Tylenol Tab) 650 mg Q6H PRN PO PAIN LEVEL 1-3 OR FEVER Last administered on 07/12/16 16:42; Admin Dose 650 MG; Start 06/03/16 at 17:00 Acetaminophen (Tylenol Supp) 650 mg Q6H PRN [place] PAIN LEVEL 1-3 OR FEVER Last administered on 07/15/16 19:50; Admin Dose 650 MG; Start 06/03/16 at 17:00 Docusate Sodium (Colace) 100 mg Q12H PRN PO CONSTIPATION Last administered on 11:02; Admin Dose 100 MG; Start 06/03/16 at 17:00 Magnesium Hydroxide (Milk Of Mag) 30 ml DAILY PRN PO CONSTIPATION Last administered on 06/20/16 06:13; Admin Dose 30 ML; Start 06/03/16 at 17:00 Bisacodyl (Dulcolax) 5 mg DAILY PRN PO CONSTIPATION Last administered on 11:02; Admin Dose 5 MG; Start 06/03/16 at 17:00 Bisacodyl (Dulcolax Supp) 10 mg DAILY PRN [place] CONSTIPATION Last administered on 06/21/16 05:18; Admin Dose 10 MG; Start 06/03/16 at 17:00 Sodium Biphosphate/ Sodium Phosphate (Fleet Enema) 133 ml DAILY PRN [place] CONSTIPATION; Start 06/03/16 at 17:00 Enoxaparin Sodium (Lovenox) 30 mg DAILY SC Last administered on 06/12/16 08: 27; Admin Dose 30 MG; Start 06/04/16 at 09:00; Status Future Hold Eye Lubricant (Artificial Tears Oph) 2 drop QID BOTH EYES Last administered on 07/28/16 09:23; Admin Dose 2 DROP; Start 06/03/16 at 21:00 Eye Lubricant (Akwa Oint) 1 applic DAILY BOTH EYES Last administered on 09:52; Admin Dose 1 APPLIC; Start 06/04/16 at 09:00 Gabapentin (Neurontin) 200 mg TID PO Last administered on 07/28/16 09:23; Admin Dose 200 MG; Start 06/03/16 at 21:00 Levothyroxine Sodium (Synthroid) 100 mcg DAILY@06 PO Last administered on 05:55; Admin Dose 100 MCG; Start 06/04/16 at 06:00 Pantoprazole (Protonix Iv) 40 mg DAILY@06 IV Last administered on 07/28/16 05: 55; Admin Dose 40 MG; Start 06/09/16 at 06:00 Lorazepam (Ativan) 1 mg Q6H PRN IV AGITATION/ANXIETY Last administered on 00:15; Admin Dose 1 MG; Start 06/08/16 at 18:00 Acetaminophen/ Hydrocodone Bitart ([place] (5/325)) 1 tab Q6H PRN PO PAIN Last administered on 07/27/16 22:02; Admin Dose 1 TAB; Start 06/11/16 at 17:30 Collagenase (Santyl) 1 applic DAILY TOP Last administered on 07/22/16 09:18; Admin Dose 1 APPLIC; Start 06/12/16 at 09:00 Nystatin (Nystatin Susp) 5 ml QID PO Last administered on 07/28/16 09:23; Admin Dose 5 ML; Start 06/18/16 at 17:00 Scopolamine (Transderm-Scop) 1 patch Q72H TRANSDERM Last administered on 21:05; Admin Dose 1 PATCH; Start 06/22/16 at 21:00 Fluconazole 100 mg 100 mg DAILY PO Last administered on 07/28/16 09:23; Admin Dose 100 MG; Start 06/28/16 at 09:00 Sodium Chloride (NS) 1,000 ml @ 100 mls/hr Q10H IV Last administered on 05:58; Admin Dose 100 MLS/HR; Start 07/01/16 at 19:00 Lactobacillus Acidoph/Bulgaricus (Floranex) 1 tab BID PO Last administered on 09:23; Admin Dose 1 TAB; Start 07/01/16 at 21:00 Ibuprofen (Motrin) 600 mg TID PRN PO FEVER Last administered on 07/04/16 01:29 ; Admin Dose 600 MG; Start 07/03/16 at 19:30 Metoclopramide HCl (Reglan) 10 mg Q6H PRN IV NAUSEA Last administered on 01:47; Admin Dose 10 MG; Start 07/16/16 at 08:30 Hydrocodone Bit/ Homatropine Methylb (Hycodan Liquid) 5 ml TID PRN PO COUGH Last administered on 07/25/16 12:40; Admin Dose 5 ML; Start 07/23/16 at 13:30 RODRÍGUEZ ERAZO NP Jul 28, 2016 11:37
--- NOTE | 2016-07-28 14:05 | CONS ---
Date/Time of Note Date/Time of Note DATE: 07/28/16 TIME: 14:02 Assessment/Plan Assessment/Plan Chief Complaint/Hosp Course 56 yo female with massive neck mass causing tracheal compression and airway compromise s/p tracheostomy placement. 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 Pt was given cycle 1A and 1B of R HyperCVAD but had only a partial response to therapy and severe side effects. We have thus changed her chemotherapy regimen. She is now s/p cycle 1B of R-IVACand has now completed her chemotherapy. Most recent CT neck showed resolution of the mass. . Problems: Additional Assessment/Plan # Burkitt's lymphoma - currently day 20 cycle 1B R -IVAC. chemotherapy regimen is as follows Part 2: R-IVAC Rituximab (Rituxan) 375 mg/m2 IV once on day 1 Ifosfamide (Ifex) 1500 mg/m2 IV over 2 hours once per day on days 1 to 5 Etoposide (Vepesid) 60 mg/m2 IV over 1 hour once per day on days 1 to 5 Cytarabine (Cytosar) 2 g/m2 IV over 3 hours Q12H on days 1 & 2 (4 doses total) [place] (Mesnex) 300 mg/m2 (mixed with Ifosfamide (Ifex)) , then 300mg/m2 IV every four hours x 2, on days 1 to 5 #Neck mass with trach in place -now that patient is not longer neutropenic and counts are stable, Neupogen can be dc'd -pulmonary to evaluate trach to see if it can be removed # Neutropenic fevers -appreciate ID recs. continue meropenem and vancomycin. ANC rising appropriately -f/u blood and urine cultures -ANC ok, can dc neupogen # Supportive Care and prophylactic meds -Started Acyclovir 400mg BID -fluconazole 100mg q day -Neupogen 300mcg q day day after chemotherapy is completed -Zofran ordered prn nausea #Expected Pancytopenia -keep Hg> 8 and platelets > 10. . patient remains [employer]SF[employer]PEND[employer].to get 2 units of PRBCs today # Elevated AST and ALT, likely related to methotrexate. now resolved Approximately 40 min were spent at patient's bedside and in coordination of her care Consultation Date/Type/Reason Admit Date/Time Jun 02, 2016 at 15:10 Initial Consult Date 06/02/16 Type of Consultation: Hematology Reason for Consultation Burkitt's lymphoma Referring Provider: TELLY SOLANO MD 24 HR Interval Summary Free Text/Dictation no acute overnight events Exam/Review of Systems Vital Signs Vitals Vital Signs Date Time Temp Pulse Resp B/P Pulse Ox O2 Delivery O2 Flow Rate FiO2 07/28/16 13:41 99 3.0 07/28/16 13:40 94 20 Nasal Cannula 07/28/16 08:36 98.3 111/67 07/26/16 14:00 36 Intake and Output 07/27/16 07/27/16 07/28/16 14:59 22:59 06:59 Intake Total 1254 ml 1374 ml Balance 1254 ml 1374 ml Exam Constitutional: alert, oriented Psych: no complaints Head: normocephalic Eyes: nl conjunctiva ENMT: nl external ears & nose Neck: other (trach was discontinued) Respiratory: clear to auscultation, normal air movement Cardiovascular: nl pulses, regular rate and rhythm Gastrointestinal: soft Musculoskeletal: nl extremities to inspection, nl gait and stance Extremities: normal pulses Results Result Diagram: 07/28/1642907/28/16 0430 Results 24 hrs Laboratory Tests Test 07/28/16 04:30 Alanine Aminotransferase (ALT/SGPT) 70 H Albumin 2.4 L Albumin/Globulin Ratio 1.20 Alkaline Phosphatase 131 H Anion Gap 14 Aspartate Amino Transf (AST/SGOT) 70 H Basophils # 0.0 Basophils % 0.4 Blood Morphology Comment Blood Urea Nitrogen 3 L Calcium Level 8.2 L Carbon Dioxide Level 29 Chloride Level 105 Creatinine 0.36 L Direct Bilirubin 0.00 Eosinophils # 0.0 Eosinophils % 0.0 Globulin 2.00 Glucose Level 92 Hematocrit 23.3 L Hemoglobin 7.9 L Indirect Bilirubin 0.1 Lymphocytes # 1.1 Lymphocytes % 24.5 Mean Corpuscular Hemoglobin 29.7 Mean Corpuscular Hemoglobin Concent 34.0 Mean Corpuscular Volume 87.5 Mean Platelet Volume 9.9 Monocytes # 0.4 Monocytes % 9.6 Neutrophils # 3.0 Neutrophils % 65.5 Nucleated Red Blood Cells # 0.0 Nucleated Red Blood Cells % 0.0 Platelet Count 104 #L Potassium Level 3.8 Red Blood Count 2.66 L Red Cell Distribution Width 14.8 H Sodium Level 144 Total Bilirubin 0.1 L Total Protein 4.4 L White Blood Count 4.6 L Medications Medications Current Medications Acyclovir (Zovirax) 400 mg BID PO Last administered on 07/28/16 09:23; Admin Dose 400 MG; Start 06/02/16 at 14:30 Diphenhydramine HCl (Benadryl) 25 mg Q4H PRN IV ALLERGIC REACTION Last administered on 06/06/16 20:26; Admin Dose 25 MG; Start 06/02/16 at 18:30 Dexamethasone 10 mg 10 mg Q4H PRN IV ALLERGIC REACTION; Start 06/02/16 at 18: 30 Ondansetron HCl/ Sodium Chloride (Zofran Inj/NS) 54 ml @ 216 mls/hr Q6H PRN IV NAUSEA AND/OR VOMITING Last administered on 07/28/16 09:23; Admin Dose 216 MLS/HR; Start 06/02/16 at 18:30 Ondansetron HCl (Zofran Inj) 4 mg Q6H PRN IV NAUSEA AND/OR VOMITING Last administered on 07/27/16 18:51; Admin Dose 4 MG; Start 06/03/16 at 17:00 Acetaminophen (Tylenol Tab) 650 mg Q6H PRN PO PAIN LEVEL 1-3 OR FEVER Last administered on 07/12/16 16:42; Admin Dose 650 MG; Start 06/03/16 at 17:00 Acetaminophen (Tylenol Supp) 650 mg Q6H PRN [place] PAIN LEVEL 1-3 OR FEVER Last administered on 07/15/16 19:50; Admin Dose 650 MG; Start 06/03/16 at 17:00 Docusate Sodium (Colace) 100 mg Q12H PRN PO CONSTIPATION Last administered on 11:02; Admin Dose 100 MG; Start 06/03/16 at 17:00 Magnesium Hydroxide (Milk Of Mag) 30 ml DAILY PRN PO CONSTIPATION Last administered on 06/20/16 06:13; Admin Dose 30 ML; Start 06/03/16 at 17:00 Bisacodyl (Dulcolax) 5 mg DAILY PRN PO CONSTIPATION Last administered on 11:02; Admin Dose 5 MG; Start 06/03/16 at 17:00 Bisacodyl (Dulcolax Supp) 10 mg DAILY PRN [place] CONSTIPATION Last administered on 12/31/16at 05:18; Admin Dose 10 MG; Start 06/03/16 at 17:00 Sodium Biphosphate/ Sodium Phosphate (Fleet Enema) 133 ml DAILY PRN [place] CONSTIPATION; Start 06/03/16 at 17:00 Enoxaparin Sodium (Lovenox) 30 mg DAILY SC Last administered on 06/12/16at 08: 27; Admin Dose 30 MG; Start 06/04/16 at 09:00; Status Future Hold Eye Lubricant (Artificial Tears Oph) 2 drop QID BOTH EYES Last administered on 07/28/16 13:27; Admin Dose 2 DROP; Start 06/03/16 at 21:00 Eye Lubricant (Akwa Oint) 1 applic DAILY BOTH EYES Last administered on 09:52; Admin Dose 1 APPLIC; Start 06/04/16 at 09:00 Gabapentin (Neurontin) 200 mg TID PO Last administered on 07/28/16 13:27; Admin Dose 200 MG; Start 06/03/16 at 21:00 Levothyroxine Sodium (Synthroid) 100 mcg DAILY@06 PO Last administered on 05:55; Admin Dose 100 MCG; Start 06/04/16 at 06:00 Pantoprazole (Protonix Iv) 40 mg DAILY@06 IV Last administered on 07/28/16 05: 55; Admin Dose 40 MG; Start 06/09/16 at 06:00 Lorazepam (Ativan) 1 mg Q6H PRN IV AGITATION/ANXIETY Last administered on 00:15; Admin Dose 1 MG; Start 06/08/16 at 18:00 Acetaminophen/ Hydrocodone Bitart ([place] (5/325)) 1 tab Q6H PRN PO PAIN Last administered on 07/27/16 22:02; Admin Dose 1 TAB; Start 06/11/16 at 17:30 Collagenase (Santyl) 1 applic DAILY TOP Last administered on 07/22/16 09:18; Admin Dose 1 APPLIC; Start 06/12/16 at 09:00 Nystatin (Nystatin Susp) 5 ml QID PO Last administered on 07/28/16 13:27; Admin Dose 5 ML; Start 06/18/16 at 17:00 Scopolamine (Transderm-Scop) 1 patch Q72H TRANSDERM Last administered on 21:05; Admin Dose 1 PATCH; Start 06/22/16 at 21:00 Fluconazole 100 mg 100 mg DAILY PO Last administered on 07/28/16 09:23; Admin Dose 100 MG; Start 06/28/16 at 09:00 Sodium Chloride (NS) 1,000 ml @ 100 mls/hr Q10H IV Last administered on 13:27; Admin Dose 100 MLS/HR; Start 07/01/16 at 19:00 Lactobacillus Acidoph/Bulgaricus (Floranex) 1 tab BID PO Last administered on 09:23; Admin Dose 1 TAB; Start 07/01/16 at 21:00 Ibuprofen (Motrin) 600 mg TID PRN PO FEVER Last administered on 07/04/16 01:29 ; Admin Dose 600 MG; Start 07/03/16 at 19:30 Metoclopramide HCl (Reglan) 10 mg Q6H PRN IV NAUSEA Last administered on 01:47; Admin Dose 10 MG; Start 07/16/16 at 08:30 Hydrocodone Bit/ Homatropine Methylb (Hycodan Liquid) 5 ml TID PRN PO COUGH Last administered on 07/25/16 12:40; Admin Dose 5 ML; Start 07/23/16 at 13:30 CHANDRIKA MERLOS M.D. Jul 28, 2016 14:05
--- NOTE | 2016-07-28 17:32 | PDOCDIS ---
Discharge Instructions CONDITION Patient Condition: Good HOME CARE INSTRUCTIONS: Special Diet: PUREED DIET ACTIVITY: Activity Restrictions: Slowly Increase Activity FOLLOW UP/APPOINTMENTS Appointments f/u own pcp [address] dang [address] lockett [address] oneal 1 wk GUERLINE SULLIVAN MD Jul 28, 2016 17:32
[2016-07-28] MEDS ORDERED: FLUC100T PO (17:36)
[2016-07-28] MEDS ORDERED: HYDR-3498 PO (17:36)
[2016-07-28] MEDS ORDERED: GABA100C14 PO (17:36)
[2016-07-28] MEDS ORDERED: BISA5TAB6 PO (17:36)
[2016-07-28] MEDS ORDERED: ACYC400T2 PO (17:36)
[2016-07-28] MEDS ORDERED: NYST1000 PO (17:36)
[2016-07-28] MEDS ORDERED: ACID1TAB14 PO (17:36)
[2016-07-28] MEDS ORDERED: ACET325T33 PO (17:36)
[2016-07-28] MEDS ORDERED: SCOP1PAT TRANSDERM (17:36)
[2016-07-28] MEDS ORDERED: SAN30GM TOP (17:36)
[2016-07-28] MEDS ORDERED: IPRA3AMP HHN (17:36)
[2016-07-28 20:47] VITALS: BP 122/70; PULSE 88; RESP 18
[2016-07-28 21:06] VITALS: BP 126/73; RESP 20
[2016-07-28] MEDS: SCOPOLAMINE 1.5 MG PATCH TRANSDERM SCH (21:27)
[2016-07-28] MEDS: ONDANSETRON 4 MG INJ IV PRN (21:30)
--- NOTE | 2016-07-28 21:54 | PN ---
Date/Time of Note Date/Time of Note DATE: 07/28/16 TIME: 21:53 Assessment/Plan VTE Prophylaxis VTE Prophylaxis Intervention: other Lines/Catheters IV Catheter Type (from Nrsg): PICC Line Central line still needed: Yes Urinary Cath still in place: No Reason Cath still needed: other (indicate) Assessment/Plan Chief Complaint/Hosp Course IMPRESSION: The patient has Burkitt's lymphoma HX tracheostomy, status post thyroid mass, pancytopenia, abnormal liver function test. better SEPSIS better gallstone ABN LFT stable anemia post chemo better now prbc HYPOKALEMIA better uti pancytopenia better DECANNULATION done home soon arrange for home health PLAN per oncology LABS chemo per dr dang per id Problems: Subjective 24 Hr Interval Summary Gastrointestinal: no complaints Genitourinary: no complaints Exam/Review of Systems Vital Signs Vitals Vital Signs Date Time Temp Pulse Resp B/P Pulse Ox O2 Delivery O2 Flow Rate FiO2 07/28/16 21:06 98.6 104 20 126/73 97 07/28/16 20:48 Nasal Cannula 2.0 07/26/16 14:00 36 Intake and Output 07/27/16 07/27/16 07/28/16 15:00 23:00 07:00 Intake Total 1254 ml 1374 ml Balance 1254 ml 1374 ml Exam Respiratory: clear to auscultation Cardiovascular: regular rate and rhythm Gastrointestinal: soft Musculoskeletal: nl extremities to inspection Results Result Diagram: 07/28/16 0430 07/28/16 0430 Results 24 hrs Laboratory Tests Test 07/28/16 04:30 Alanine Aminotransferase (ALT/SGPT) 70 H Albumin 2.4 L Albumin/Globulin Ratio 1.20 Alkaline Phosphatase 131 H Anion Gap 14 Aspartate Amino Transf (AST/SGOT) 70 H Basophils # 0.0 Basophils % 0.4 Blood Morphology Comment Blood Urea Nitrogen 3 L Calcium Level 8.2 L Carbon Dioxide Level 29 Chloride Level 105 Creatinine 0.36 L Direct Bilirubin 0.00 Eosinophils # 0.0 Eosinophils % 0.0 Globulin 2.00 Glucose Level 92 Hematocrit 23.3 L Hemoglobin 7.9 L Indirect Bilirubin 0.1 Lymphocytes # 1.1 Lymphocytes % 24.5 Mean Corpuscular Hemoglobin 29.7 Mean Corpuscular Hemoglobin Concent 34.0 Mean Corpuscular Volume 87.5 Mean Platelet Volume 9.9 Monocytes # 0.4 Monocytes % 9.6 Neutrophils # 3.0 Neutrophils % 65.5 Nucleated Red Blood Cells # 0.0 Nucleated Red Blood Cells % 0.0 Platelet Count 104 #L Potassium Level 3.8 Red Blood Count 2.66 L Red Cell Distribution Width 14.8 H Sodium Level 144 Total Bilirubin 0.1 L Total Protein 4.4 L White Blood Count 4.6 L Medications Medications Current Medications Acyclovir (Zovirax) 400 mg BID PO Last administered on 07/28/16 21:27; Admin Dose 400 MG; Start 06/02/16 at 14:30 Diphenhydramine HCl (Benadryl) 25 mg Q4H PRN IV ALLERGIC REACTION Last administered on 06/06/16 20:26; Admin Dose 25 MG; Start 06/02/16 at 18:30 Dexamethasone 10 mg 10 mg Q4H PRN IV ALLERGIC REACTION; Start 06/02/16 at 18: 30 Ondansetron HCl/ Sodium Chloride (Zofran Inj/NS) 54 ml @ 216 mls/hr Q6H PRN IV NAUSEA AND/OR VOMITING Last administered on 07/28/16 09:23; Admin Dose 216 MLS/HR; Start 06/02/16 at 18:30 Ondansetron HCl (Zofran Inj) 4 mg Q6H PRN IV NAUSEA AND/OR VOMITING Last administered on 07/28/16 21:30; Admin Dose 4 MG; Start 06/03/16 at 17:00 Acetaminophen (Tylenol Tab) 650 mg Q6H PRN PO PAIN LEVEL 1-3 OR FEVER Last administered on 07/12/16 16:42; Admin Dose 650 MG; Start 06/03/16 at 17:00 Acetaminophen (Tylenol Supp) 650 mg Q6H PRN SD PAIN LEVEL 1-3 OR FEVER Last administered on 07/15/16 19:50; Admin Dose 650 MG; Start 06/03/16 at 17:00 Docusate Sodium (Colace) 100 mg Q12H PRN PO CONSTIPATION Last administered on 11:02; Admin Dose 100 MG; Start 06/03/16 at 17:00 Magnesium Hydroxide (Milk Of Mag) 30 ml DAILY PRN PO CONSTIPATION Last administered on 06/20/16 06:13; Admin Dose 30 ML; Start 06/03/16 at 17:00 Bisacodyl (Dulcolax) 5 mg DAILY PRN PO CONSTIPATION Last administered on 11:02; Admin Dose 5 MG; Start 06/03/16 at 17:00 Bisacodyl (Dulcolax Supp) 10 mg DAILY PRN SD CONSTIPATION Last administered on 06/21/16 05:18; Admin Dose 10 MG; Start 06/03/16 at 17:00 Sodium Biphosphate/ Sodium Phosphate (Fleet Enema) 133 ml DAILY PRN SD CONSTIPATION; Start 06/03/16 at 17:00 Enoxaparin Sodium (Lovenox) 30 mg DAILY SC Last administered on 06/12/16 08: 27; Admin Dose 30 MG; Start 06/04/16 at 09:00; Status Future Hold Eye Lubricant (Artificial Tears Oph) 2 drop QID BOTH EYES Last administered on 07/28/16 21:25; Admin Dose 2 DROP; Start 06/03/16 at 21:00 Eye Lubricant (Akwa Oint) 1 applic DAILY BOTH EYES Last administered on 09:52; Admin Dose 1 APPLIC; Start 06/04/16 at 09:00 Gabapentin (Neurontin) 200 mg TID PO Last administered on 07/28/16 21:27; Admin Dose 200 MG; Start 06/03/16 at 21:00 Levothyroxine Sodium (Synthroid) 100 mcg DAILY@06 PO Last administered on 05:55; Admin Dose 100 MCG; Start 06/04/16 at 06:00 Pantoprazole (Protonix Iv) 40 mg DAILY@06 IV Last administered on 07/28/16 05: 55; Admin Dose 40 MG; Start 06/09/16 at 06:00 Lorazepam (Ativan) 1 mg Q6H PRN IV AGITATION/ANXIETY Last administered on 00:15; Admin Dose 1 MG; Start 06/08/16 at 18:00 Acetaminophen/ Hydrocodone Bitart ([place] (5/325)) 1 tab Q6H PRN PO PAIN Last administered on 07/27/16 22:02; Admin Dose 1 TAB; Start 06/11/16 at 17:30 Collagenase (Santyl) 1 applic DAILY TOP Last administered on 07/22/16 09:18; Admin Dose 1 APPLIC; Start 06/12/16 at 09:00 Nystatin (Nystatin Susp) 5 ml QID PO Last administered on 07/28/16 21:27; Admin Dose 5 ML; Start 06/18/16 at 17:00 Scopolamine (Transderm-Scop) 1 patch Q72H TRANSDERM Last administered on 21:27; Admin Dose 1 PATCH; Start 06/22/16 at 21:00 Fluconazole 100 mg 100 mg DAILY PO Last administered on 07/28/16 09:23; Admin Dose 100 MG; Start 06/28/16 at 09:00 Sodium Chloride (NS) 1,000 ml @ 100 mls/hr Q10H IV Last administered on 21:26; Admin Dose 100 MLS/HR; Start 07/01/16 at 19:00 Lactobacillus Acidoph/Bulgaricus (Floranex) 1 tab BID PO Last administered on 21:26; Admin Dose 1 TAB; Start 07/01/16 at 21:00 Ibuprofen (Motrin) 600 mg TID PRN PO FEVER Last administered on 07/04/16 01:29 ; Admin Dose 600 MG; Start 07/03/16 at 19:30 Metoclopramide HCl (Reglan) 10 mg Q6H PRN IV NAUSEA Last administered on 01:47; Admin Dose 10 MG; Start 07/16/16 at 08:30 Hydrocodone Bit/ Homatropine Methylb (Hycodan Liquid) 5 ml TID PRN PO COUGH Last administered on 07/25/16 12:40; Admin Dose 5 ML; Start 07/23/16 at 13:30 GUERLINE SULLIVAN MD Jul 28, 2016 21:54
[2016-07-28 22:34] VITALS: BP 124/70; PULSE 102; RESP 18
[2016-07-28 22:52] VITALS: BP 120/64; PULSE 105; RESP 18
[2016-07-29 00:03] VITALS: BP 138/77; PULSE 92; RESP 18
[2016-07-29] MEDS: LORAZEPAM 2 MG INJ IV PRN (00:08)
[2016-07-29] MEDS: ONDANSETRON INJ 8 MG in SOD CHLORIDE 0.9% 50 ML IV PRN ×2 (00:08→15:01)
[2016-07-29] MEDS: ALBUTEROL/IPRATROPIUM (NEB) 3 ML AMP HHN SCH ×3 (01:02→14:00)
[2016-07-29 01:17] VITALS: BP 130/71; PULSE 100; RESP 18
[2016-07-29] MEDS: PANTOPRAZOLE 40 MG INJ IV SCH (05:13)
[2016-07-29] MEDS: LEVOTHYROXINE 100 MCG TAB PO SCH (05:13)
[2016-07-29 05:50] LABS: BASOPHILS % 0.3 % (0.0-2.0); EOSINOPHILS % 0.1 % (0.0-7.0); HEMATOCRIT 33.2 % (37.0-47.0); HEMOGLOBIN 11.5 g/dl (12.0-16.0); LYMPHOCYTES # 2.3 10^3/ul (0.8-2.9); LYMPHOCYTES % 31.6 % (15.0-51.0); MEAN CORPUSCULAR HEMOGLOBIN 30.9 pg (29.0-33.0); MEAN CORPUSCULAR HGB CONC 34.8 g/dl (32.0-37.0); MEAN CORPUSCULAR VOLUME 88.9 fl (82.0-101.0); MEAN PLATELET VOLUME 8.7 fl (7.4-10.4); MONOCYTE # 0.6 10^3/ul (0.3-0.9); MONOCYTES % 7.7 % (0.0-11.0); NEUTROPHIL # 4.4 10^3/ul (1.6-7.5); NEUTROPHILS % 60.3 % (39.0-77.0); PLATELET COUNT 138 10^3/UL (140-440); RED BLOOD COUNT 3.73 10^6/ul (4.20-5.40); RED CELL DISTRIBUTION WIDTH 14.6 % (11.5-14.5); UNCORRECTED WBC 7.3 10^3/ul (4.8-10.8); WHITE BLOOD COUNT 7.3 10^3/ul (4.8-10.8)
[2016-07-29] MEDS: SOD CHLORIDE 0.9% 1,000 ML IV SCH ×2 (06:03→17:00)
[2016-07-29 06:05] LABS: POTASSIUM 3.7 mmol/L (3.5-5.1)
[2016-07-29 06:08] LABS: CREATININE 0.39 mg/dl (0.44-1.00)
[2016-07-29 06:09] LABS: CALCIUM 8.4 mg/dl (8.4-10.2)
[2016-07-29 06:55] LABS: CONDITION 1; LH ANALYZER COMMENTS 1
[2016-07-29 08:11] VITALS: BP 135/75; RESP 18
[2016-07-29] MEDS: COLLAGENASE 30 GM TUBE TOP SCH (09:00)
[2016-07-29] MEDS: GABAPENTIN 100 MG CAP PO SCH ×2 (09:30→15:00)
[2016-07-29] MEDS: FLUCONAZOLE 100 MG TAB PO SCH (09:30)
[2016-07-29] MEDS: ACYCLOVIR 400 MG TAB PO SCH (09:30)
[2016-07-29] MEDS: ARTIFICIAL TEARS 15 ML OPH BOTH EYES SCH ×3 (09:30→17:11)
[2016-07-29] MEDS: NYSTATIN SUSP 5 ML CUP PO SCH ×3 (09:30→17:00)
[2016-07-29] MEDS: LACTOBACILLUS CHEW TAB PO SCH (09:30)
[2016-07-29] MEDS: OCULAR LUBRICANT 3.5 GM OPH OINT BOTH EYES SCH (09:31)
--- NOTE | 2016-07-29 11:31 | CONS ---
Date/Time of Note Date/Time of Note DATE: 07/29/16 TIME: 11:30 Consult Date/Type/Reason Admit Date/Time Jun 02, 2016 at 15:10 Initial Consult Date 06/02/16 Type of Consultation: pulmonary Ordering Provider: TELLY SOLANO MD Subjective Patient remained stable no new events Objective Vital Signs Date Time Temp Pulse Resp B/P Pulse Ox O2 Delivery O2 Flow Rate FiO2 07/29/16 08:11 97.9 80 18 135/75 99 07/29/16 01:17 Nasal Cannula 2.0 07/26/16 14:00 36 Intake and Output 07/28/16 07/28/16 07/29/16 15:00 23:00 07:00 Intake Total 1774 ml 1754 ml Output Total 1200 ml Balance 1774 ml 554 ml GENERAL: Chronically ill-appearing lady comfortable at rest VITAL SIGNS: per chart NECK: Supple. No JVD or lymphadenopathy. Stoma site slowly healing CARDIAC EXAM: S1, S2. No added sounds or murmurs. CHEST: clear bilaterally, No added sounds, rales or wheezes ABDOMEN: Soft, nontender. No guarding or rebound. EXTREMITIES: No cyanosis, clubbing or edema. NEUROLOGIC: Generalized weakness. No focal deficits. Results/Medications Result Diagram: 07/29/165 07/29/16 045 Results 24 hrs Laboratory Tests Test 07/29/16 04:55 Anion Gap 14 Basophils # 0.0 Basophils % 0.3 Blood Morphology Comment Blood Urea Nitrogen 2 L Calcium Level 8.4 Carbon Dioxide Level 28 Chloride Level 106 Creatinine 0.39 L Eosinophils # 0.0 Eosinophils % 0.1 Glucose Level 87 Hematocrit 33.2 #L Hemoglobin 11.5 #L Lymphocytes # 2.3 Lymphocytes % 31.6 Mean Corpuscular Hemoglobin 30.9 Mean Corpuscular Hemoglobin Concent 34.8 Mean Corpuscular Volume 88.9 Mean Platelet Volume 8.7 Monocytes # 0.6 Monocytes % 7.7 Neutrophils # 4.4 Neutrophils % 60.3 Nucleated Red Blood Cells # 0.0 Nucleated Red Blood Cells % 0.0 Platelet Count 138 #L Potassium Level 3.7 Red Blood Count 3.73 #L Red Cell Distribution Width 14.6 H Sodium Level 144 White Blood Count 7.3 # Medications Current Medications Acyclovir (Zovirax) 400 mg BID PO Last administered on 07/29/16 09:30; Admin Dose 400 MG; Start 06/02/16 at 14:30 Diphenhydramine HCl (Benadryl) 25 mg Q4H PRN IV ALLERGIC REACTION Last administered on 06/06/16 20:26; Admin Dose 25 MG; Start 06/02/16 at 18:30 Dexamethasone 10 mg 10 mg Q4H PRN IV ALLERGIC REACTION; Start 06/02/16 at 18: 30 Ondansetron HCl/ Sodium Chloride (Zofran Inj/NS) 54 ml @ 216 mls/hr Q6H PRN IV NAUSEA AND/OR VOMITING Last administered on 07/29/16 00:08; Admin Dose 216 MLS/HR; Start 06/02/16 at 18:30 Ondansetron HCl (Zofran Inj) 4 mg Q6H PRN IV NAUSEA AND/OR VOMITING Last administered on 07/28/16 21:30; Admin Dose 4 MG; Start 06/03/16 at 17:00 Acetaminophen (Tylenol Tab) 650 mg Q6H PRN PO PAIN LEVEL 1-3 OR FEVER Last administered on 07/12/16 16:42; Admin Dose 650 MG; Start 06/03/16 at 17:00 Acetaminophen (Tylenol Supp) 650 mg Q6H PRN [place] PAIN LEVEL 1-3 OR FEVER Last administered on 07/15/16 19:50; Admin Dose 650 MG; Start 06/03/16 at 17:00 Docusate Sodium (Colace) 100 mg Q12H PRN PO CONSTIPATION Last administered on 11:02; Admin Dose 100 MG; Start 06/03/16 at 17:00 Magnesium Hydroxide (Milk Of Mag) 30 ml DAILY PRN PO CONSTIPATION Last administered on 06/20/16 06:13; Admin Dose 30 ML; Start 06/03/16 at 17:00 Bisacodyl (Dulcolax) 5 mg DAILY PRN PO CONSTIPATION Last administered on 11:02; Admin Dose 5 MG; Start 06/03/16 at 17:00 Bisacodyl (Dulcolax Supp) 10 mg DAILY PRN [place] CONSTIPATION Last administered on 06/21/16 05:18; Admin Dose 10 MG; Start 06/03/16 at 17:00 Sodium Biphosphate/ Sodium Phosphate (Fleet Enema) 133 ml DAILY PRN [place] CONSTIPATION; Start 06/03/16 at 17:00 Enoxaparin Sodium (Lovenox) 30 mg DAILY SC Last administered on 06/12/16at 08: 27; Admin Dose 30 MG; Start 06/04/16 at 09:00; Status Future Hold Eye Lubricant (Artificial Tears Oph) 2 drop QID BOTH EYES Last administered on 07/29/16 09:30; Admin Dose 2 DROP; Start 06/03/16 at 21:00 Eye Lubricant (Akwa Oint) 1 applic DAILY BOTH EYES Last administered on 09:31; Admin Dose 1 APPLIC; Start 06/04/16 at 09:00 Gabapentin (Neurontin) 200 mg TID PO Last administered on 07/29/16 09:30; Admin Dose 200 MG; Start 06/03/16 at 21:00 Levothyroxine Sodium (Synthroid) 100 mcg DAILY@06 PO Last administered on 05:13; Admin Dose 100 MCG; Start 06/04/16 at 06:00 Pantoprazole (Protonix Iv) 40 mg DAILY@06 IV Last administered on 07/29/16 05: 13; Admin Dose 40 MG; Start 06/09/16 at 06:00 Lorazepam (Ativan) 1 mg Q6H PRN IV AGITATION/ANXIETY Last administered on 00:08; Admin Dose 1 MG; Start 06/08/16 at 18:00 Acetaminophen/ Hydrocodone Bitart ([place] (5/325)) 1 tab Q6H PRN PO PAIN Last administered on 07/27/16 22:02; Admin Dose 1 TAB; Start 06/11/16 at 17:30 Collagenase (Santyl) 1 applic DAILY TOP Last administered on 07/22/16 09:18; Admin Dose 1 APPLIC; Start 06/12/16 at 09:00 Nystatin (Nystatin Susp) 5 ml QID PO Last administered on 07/29/16 09:30; Admin Dose 5 ML; Start 06/18/16 at 17:00 Scopolamine (Transderm-Scop) 1 patch Q72H TRANSDERM Last administered on 21:27; Admin Dose 1 PATCH; Start 06/22/16 at 21:00 Fluconazole 100 mg 100 mg DAILY PO Last administered on 07/29/16 09:30; Admin Dose 100 MG; Start 06/28/16 at 09:00 Sodium Chloride (NS) 1,000 ml @ 100 mls/hr Q10H IV Last administered on 06:03; Admin Dose 100 MLS/HR; Start 07/01/16 at 19:00 Lactobacillus Acidoph/Bulgaricus (Floranex) 1 tab BID PO Last administered on 09:30; Admin Dose 1 TAB; Start 07/01/16 at 21:00 Ibuprofen (Motrin) 600 mg TID PRN PO FEVER Last administered on 07/04/16 01:29 ; Admin Dose 600 MG; Start 07/03/16 at 19:30 Metoclopramide HCl (Reglan) 10 mg Q6H PRN IV NAUSEA Last administered on 01:47; Admin Dose 10 MG; Start 07/16/16 at 08:30 Hydrocodone Bit/ Homatropine Methylb (Hycodan Liquid) 5 ml TID PRN PO COUGH Last administered on 07/25/16 12:40; Admin Dose 5 ML; Start 07/23/16 at 13:30 Assessment/Plan Chief Complaint/Hosp Course a/p 1. Respiratory failure trach in place. Now Decannulated. Continue stoma site care will have Gram stain and culture swab performed 2. Burkitts lymphoma s/p chemo. Continue heme onc recs. 3. Hemoglobin stable after blood transfusion 4. Discharge planning okay from pulmonary 5. Patient will need ENT follow-up to manage tracheostomy stoma Problems: SANDEEP JACKSON MD, FCCP Jul 29, 2016 11:31
[2016-07-29] MEDS: ONDANSETRON 4 MG INJ IV PRN ×2 (12:16→17:40)
--- NOTE | 2016-07-29 13:03 | CONS ---
Date/Time of Note Date/Time of Note DATE: 07/29/16 TIME: 13:03 Assessment/Plan Assessment/Plan Chief Complaint/Hosp Course SUBJECTIVE: Patient is alert, feels good, looks comfortable, no fevers. Vital signs stable. INDWELLINGS: PICC line. PHYSICAL EXAMINATION GENERAL: Fragile middle-aged [place] woman who is alert, in no distress. HEENT: Head atraumatic, normocephalic. Sclerae anicteric. Buccal mucosa pink. NECK: Supple. The patient has a dressing over her old tracheostomy site. CHEST: Rise symmetrical. Breath sounds clear. HEART: S1, S2. ABDOMEN: Soft. Bowel tones present. EXTREMITIES: No cyanosis. ASSESSMENT 1. Status post respiratory failure, patient was decannulated, stable on room air. 2. Burkitt lymphoma, patient just finished cycle of chemotherapy and plan is to resume in 2 weeks. 3. Status post Pseudomonas aeruginosa urinary tract infection. 4. Status post methicillin-resistant Staphylococcus aureus nares colonization and methicillin-resistant Staphylococcus aureus pneumonia. 5. Status post neutropenic fevers. PLAN: The patient remains stable. Continue present care. Pending discharge planning. dw staff Problems: Consultation Date/Type/Reason Admit Date/Time Jun 02, 2016 at 15:10 Initial Consult Date 06/02/16 Type of Consultation: ID Referring Provider: TELLY SOLANO MD Exam/Review of Systems Vital Signs Vitals Vital Signs Date Time Temp Pulse Resp B/P Pulse Ox O2 Delivery O2 Flow Rate FiO2 07/29/16 11:51 Nasal Cannula 2.0 07/29/16 08:11 97.9 80 18 135/75 99 07/26/16 14:00 36 Intake and Output 07/28/16 07/28/16 07/29/16 15:00 23:00 07:00 Intake Total 1774 ml 1754 ml Output Total 1200 ml Balance 1774 ml 554 ml Results Result Diagram: 07/29/16 0455 07/29/16 0455 Results 24 hrs Laboratory Tests Test 07/29/16 04:55 Anion Gap 14 Basophils # 0.0 Basophils % 0.3 Blood Morphology Comment Blood Urea Nitrogen 2 L Calcium Level 8.4 Carbon Dioxide Level 28 Chloride Level 106 Creatinine 0.39 L Eosinophils # 0.0 Eosinophils % 0.1 Glucose Level 87 Hematocrit 33.2 #L Hemoglobin 11.5 #L Lymphocytes # 2.3 Lymphocytes % 31.6 Mean Corpuscular Hemoglobin 30.9 Mean Corpuscular Hemoglobin Concent 34.8 Mean Corpuscular Volume 88.9 Mean Platelet Volume 8.7 Monocytes # 0.6 Monocytes % 7.7 Neutrophils # 4.4 Neutrophils % 60.3 Nucleated Red Blood Cells # 0.0 Nucleated Red Blood Cells % 0.0 Platelet Count 138 #L Potassium Level 3.7 Red Blood Count 3.73 #L Red Cell Distribution Width 14.6 H Sodium Level 144 White Blood Count 7.3 # Medications Medications Current Medications Acyclovir (Zovirax) 400 mg BID PO Last administered on 07/29/16 09:30; Admin Dose 400 MG; Start 06/02/16 at 14:30 Diphenhydramine HCl (Benadryl) 25 mg Q4H PRN IV ALLERGIC REACTION Last administered on 06/06/16at 20:26; Admin Dose 25 MG; Start 06/02/16 at 18:30 Dexamethasone 10 mg 10 mg Q4H PRN IV ALLERGIC REACTION; Start 06/02/16 at 18: 30 Ondansetron HCl/ Sodium Chloride (Zofran Inj/NS) 54 ml @ 216 mls/hr Q6H PRN IV NAUSEA AND/OR VOMITING Last administered on 07/29/16 00:08; Admin Dose 216 MLS/HR; Start 06/02/16 at 18:30 Ondansetron HCl (Zofran Inj) 4 mg Q6H PRN IV NAUSEA AND/OR VOMITING Last administered on 07/29/16 12:16; Admin Dose 4 MG; Start 06/03/16 at 17:00 Acetaminophen (Tylenol Tab) 650 mg Q6H PRN PO PAIN LEVEL 1-3 OR FEVER Last administered on 07/12/16 16:42; Admin Dose 650 MG; Start 06/03/16 at 17:00 Acetaminophen (Tylenol Supp) 650 mg Q6H PRN [place] PAIN LEVEL 1-3 OR FEVER Last administered on 07/15/16 19:50; Admin Dose 650 MG; Start 06/03/16 at 17:00 Docusate Sodium (Colace) 100 mg Q12H PRN PO CONSTIPATION Last administered on 11:02; Admin Dose 100 MG; Start 06/03/16 at 17:00 Magnesium Hydroxide (Milk Of Mag) 30 ml DAILY PRN PO CONSTIPATION Last administered on 06/20/16 06:13; Admin Dose 30 ML; Start 06/03/16 at 17:00 Bisacodyl (Dulcolax) 5 mg DAILY PRN PO CONSTIPATION Last administered on 11:02; Admin Dose 5 MG; Start 06/03/16 at 17:00 Bisacodyl (Dulcolax Supp) 10 mg DAILY PRN [place] CONSTIPATION Last administered on 06/21/16 05:18; Admin Dose 10 MG; Start 06/03/16 at 17:00 Sodium Biphosphate/ Sodium Phosphate (Fleet Enema) 133 ml DAILY PRN [place] CONSTIPATION; Start 06/03/16 at 17:00 Enoxaparin Sodium (Lovenox) 30 mg DAILY SC Last administered on 06/12/16 08: 27; Admin Dose 30 MG; Start 06/04/16 at 09:00; Status Future Hold Eye Lubricant (Artificial Tears Oph) 2 drop QID BOTH EYES Last administered on 07/29/16 09:30; Admin Dose 2 DROP; Start 06/03/16 at 21:00 Eye Lubricant (Akwa Oint) 1 applic DAILY BOTH EYES Last administered on 09:31; Admin Dose 1 APPLIC; Start 06/04/16 at 09:00 Gabapentin (Neurontin) 200 mg TID PO Last administered on 07/29/16 09:30; Admin Dose 200 MG; Start 06/03/16 at 21:00 Levothyroxine Sodium (Synthroid) 100 mcg DAILY@06 PO Last administered on 05:13; Admin Dose 100 MCG; Start 06/04/16 at 06:00 Pantoprazole (Protonix Iv) 40 mg DAILY@06 IV Last administered on 07/29/16 05: 13; Admin Dose 40 MG; Start 06/09/16 at 06:00 Lorazepam (Ativan) 1 mg Q6H PRN IV AGITATION/ANXIETY Last administered on 00:08; Admin Dose 1 MG; Start 06/08/16 at 18:00 Acetaminophen/ Hydrocodone Bitart ([place] (5/325)) 1 tab Q6H PRN PO PAIN Last administered on 07/27/16 22:02; Admin Dose 1 TAB; Start 06/11/16 at 17:30 Collagenase (Santyl) 1 applic DAILY TOP Last administered on 07/22/16 09:18; Admin Dose 1 APPLIC; Start 06/12/16 at 09:00 Nystatin (Nystatin Susp) 5 ml QID PO Last administered on 07/29/16 09:30; Admin Dose 5 ML; Start 06/18/16 at 17:00 Scopolamine (Transderm-Scop) 1 patch Q72H TRANSDERM Last administered on 21:27; Admin Dose 1 PATCH; Start 06/22/16 at 21:00 Fluconazole 100 mg 100 mg DAILY PO Last administered on 07/29/16 09:30; Admin Dose 100 MG; Start 06/28/16 at 09:00 Sodium Chloride (NS) 1,000 ml @ 100 mls/hr Q10H IV Last administered on 06:03; Admin Dose 100 MLS/HR; Start 07/01/16 at 19:00 Lactobacillus Acidoph/Bulgaricus (Floranex) 1 tab BID PO Last administered on 09:30; Admin Dose 1 TAB; Start 07/01/16 at 21:00 Ibuprofen (Motrin) 600 mg TID PRN PO FEVER Last administered on 07/04/16 01:29 ; Admin Dose 600 MG; Start 07/03/16 at 19:30 Metoclopramide HCl (Reglan) 10 mg Q6H PRN IV NAUSEA Last administered on 01:47; Admin Dose 10 MG; Start 07/16/16 at 08:30 Hydrocodone Bit/ Homatropine Methylb (Hycodan Liquid) 5 ml TID PRN PO COUGH Last administered on 07/25/16 12:40; Admin Dose 5 ML; Start 07/23/16 at 13:30 RODRÍGUEZ ERAZO NP Jul 29, 2016 13:03
--- NOTE | 2016-07-29 13:58 | CONS ---
Date/Time of Note Date/Time of Note DATE: 07/29/16 TIME: 13:56 Assessment/Plan Assessment/Plan Chief Complaint/Hosp Course 56 yo female with massive neck mass causing tracheal compression and airway compromise s/p tracheostomy placement. 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 Pt was given cycle 1A and 1B of R HyperCVAD but had only a partial response to therapy and severe side effects. We have thus changed her chemotherapy regimen. She is now s/p cycle 1B of R-IVACand has now completed her chemotherapy. Most recent CT neck showed resolution of the mass. . Problems: Additional Assessment/Plan # Burkitt's lymphoma - currently day 21 cycle 1B R -IVAC. chemotherapy regimen is as follows Part 2: R-IVAC Rituximab (Rituxan) 375 mg/m2 IV once on day 1 Ifosfamide (Ifex) 1500 mg/m2 IV over 2 hours once per day on days 1 to 5 Etoposide (Vepesid) 60 mg/m2 IV over 1 hour once per day on days 1 to 5 Cytarabine (Cytosar) 2 g/m2 IV over 3 hours Q12H on days 1 & 2 (4 doses total) [place] (Mesnex) 300 mg/m2 (mixed with Ifosfamide (Ifex)) , then 300mg/m2 IV every four hours x 2, on days 1 to 5 -will need to be readmitted for chemotherapy later next week. #Neck mass with trach in place -now that patient is not longer neutropenic and counts are stable, Neupogen can be dc'd -pulmonary to evaluate trach to see if it can be removed # Neutropenic fevers -appreciate ID recs. continue meropenem and vancomycin. ANC rising appropriately -f/u blood and urine cultures -ANC ok, can dc neupogen # Supportive Care and prophylactic meds -Started Acyclovir 400mg BID -fluconazole 100mg q day -Neupogen 300mcg q day day after chemotherapy is completed -Zofran ordered prn nausea #Expected Pancytopenia -keep Hg> 8 and platelets > 10. . patient remains [employer]SF[employer]PEND[employer].to get 2 units of PRBCs today # Elevated AST and ALT, likely related to methotrexate. now resolved Approximately 40 min were spent at patient's bedside and in coordination of her care Consultation Date/Type/Reason Admit Date/Time Jun 02, 2016 at 15:10 Initial Consult Date 06/02/16 Type of Consultation: Hematology Reason for Consultation Burkitt's lymphoma Referring Provider: TELLY SOLANO MD 24 HR Interval Summary Free Text/Dictation patient received 2 units of PRBCs today. Hg responded appropriately Exam/Review of Systems Vital Signs Vitals Vital Signs Date Time Temp Pulse Resp B/P Pulse Ox O2 Delivery O2 Flow Rate FiO2 07/29/16 11:51 Nasal Cannula 2.0 07/29/16 08:11 97.9 80 18 135/75 99 07/26/16 14:00 36 Intake and Output 07/28/16 07/28/16 07/29/16 15:00 23:00 07:00 Intake Total 1774 ml 1754 ml Output Total 1200 ml Balance 1774 ml 554 ml Exam Constitutional: alert Psych: no complaints Head: normocephalic Eyes: nl conjunctiva ENMT: nl external ears & nose Neck: other (trach removed) Respiratory: clear to auscultation, normal air movement Cardiovascular: regular rate and rhythm Gastrointestinal: soft Musculoskeletal: nl extremities to inspection, nl gait and stance Results Result Diagram: 07/29/16 0455 07/29/16 0455 Results 24 hrs Laboratory Tests Test 07/29/16 04:55 Anion Gap 14 Basophils # 0.0 Basophils % 0.3 Blood Morphology Comment Blood Urea Nitrogen 2 L Calcium Level 8.4 Carbon Dioxide Level 28 Chloride Level 106 Creatinine 0.39 L Eosinophils # 0.0 Eosinophils % 0.1 Glucose Level 87 Hematocrit 33.2 #L Hemoglobin 11.5 #L Lymphocytes # 2.3 Lymphocytes % 31.6 Mean Corpuscular Hemoglobin 30.9 Mean Corpuscular Hemoglobin Concent 34.8 Mean Corpuscular Volume 88.9 Mean Platelet Volume 8.7 Monocytes # 0.6 Monocytes % 7.7 Neutrophils # 4.4 Neutrophils % 60.3 Nucleated Red Blood Cells # 0.0 Nucleated Red Blood Cells % 0.0 Platelet Count 138 #L Potassium Level 3.7 Red Blood Count 3.73 #L Red Cell Distribution Width 14.6 H Sodium Level 144 White Blood Count 7.3 # Medications Medications Current Medications Acyclovir (Zovirax) 400 mg BID PO Last administered on 07/29/16t 09:30; Admin Dose 400 MG; Start 06/02/16 at 14:30 Diphenhydramine HCl (Benadryl) 25 mg Q4H PRN IV ALLERGIC REACTION Last administered on 06/06/16at 20:26; Admin Dose 25 MG; Start 06/02/16 at 18:30 Dexamethasone 10 mg 10 mg Q4H PRN IV ALLERGIC REACTION; Start 06/02/16 at 18: 30 Ondansetron HCl/ Sodium Chloride (Zofran Inj/NS) 54 ml @ 216 mls/hr Q6H PRN IV NAUSEA AND/OR VOMITING Last administered on 07/29/16 00:08; Admin Dose 216 MLS/HR; Start 06/02/16 at 18:30 Ondansetron HCl (Zofran Inj) 4 mg Q6H PRN IV NAUSEA AND/OR VOMITING Last administered on 07/29/16 12:16; Admin Dose 4 MG; Start 06/03/16 at 17:00 Acetaminophen (Tylenol Tab) 650 mg Q6H PRN PO PAIN LEVEL 1-3 OR FEVER Last administered on 07/12/16 16:42; Admin Dose 650 MG; Start 06/03/16 at 17:00 Acetaminophen (Tylenol Supp) 650 mg Q6H PRN [place] PAIN LEVEL 1-3 OR FEVER Last administered on 07/15/16 19:50; Admin Dose 650 MG; Start 06/03/16 at 17:00 Docusate Sodium (Colace) 100 mg Q12H PRN PO CONSTIPATION Last administered on 11:02; Admin Dose 100 MG; Start 06/03/16 at 17:00 Magnesium Hydroxide (Milk Of Mag) 30 ml DAILY PRN PO CONSTIPATION Last administered on 06/20/16at 06:13; Admin Dose 30 ML; Start 06/03/16 at 17:00 Bisacodyl (Dulcolax) 5 mg DAILY PRN PO CONSTIPATION Last administered on 11:02; Admin Dose 5 MG; Start 06/03/16 at 17:00 Bisacodyl (Dulcolax Supp) 10 mg DAILY PRN [place] CONSTIPATION Last administered on 06/21/16at 05:18; Admin Dose 10 MG; Start 06/03/16 at 17:00 Sodium Biphosphate/ Sodium Phosphate (Fleet Enema) 133 ml DAILY PRN [place] CONSTIPATION; Start 06/03/16 at 17:00 Enoxaparin Sodium (Lovenox) 30 mg DAILY SC Last administered on 06/12/16at 08: 27; Admin Dose 30 MG; Start 06/04/16 at 09:00; Status Future Hold Eye Lubricant (Artificial Tears Oph) 2 drop QID BOTH EYES Last administered on 07/29/16 09:30; Admin Dose 2 DROP; Start 06/03/16 at 21:00 Eye Lubricant (Akwa Oint) 1 applic DAILY BOTH EYES Last administered on 09:31; Admin Dose 1 APPLIC; Start 06/04/16 at 09:00 Gabapentin (Neurontin) 200 mg TID PO Last administered on 07/29/16 09:30; Admin Dose 200 MG; Start 06/03/16 at 21:00 Levothyroxine Sodium (Synthroid) 100 mcg DAILY@06 PO Last administered on 05:13; Admin Dose 100 MCG; Start 06/04/16 at 06:00 Pantoprazole (Protonix Iv) 40 mg DAILY@06 IV Last administered on 07/29/16 05: 13; Admin Dose 40 MG; Start 06/09/16 at 06:00 Lorazepam (Ativan) 1 mg Q6H PRN IV AGITATION/ANXIETY Last administered on 00:08; Admin Dose 1 MG; Start 06/08/16 at 18:00 Acetaminophen/ Hydrocodone Bitart ([place] (5/325)) 1 tab Q6H PRN PO PAIN Last administered on 07/27/16 22:02; Admin Dose 1 TAB; Start 06/11/16 at 17:30 Collagenase (Santyl) 1 applic DAILY TOP Last administered on 07/22/16 09:18; Admin Dose 1 APPLIC; Start 06/12/16 at 09:00 Nystatin (Nystatin Susp) 5 ml QID PO Last administered on 07/29/16 09:30; Admin Dose 5 ML; Start 06/18/16 at 17:00 Scopolamine (Transderm-Scop) 1 patch Q72H TRANSDERM Last administered on 21:27; Admin Dose 1 PATCH; Start 06/22/16 at 21:00 Fluconazole 100 mg 100 mg DAILY PO Last administered on 07/29/16 09:30; Admin Dose 100 MG; Start 06/28/16 at 09:00 Sodium Chloride (NS) 1,000 ml @ 100 mls/hr Q10H IV Last administered on 06:03; Admin Dose 100 MLS/HR; Start 07/01/16 at 19:00 Lactobacillus Acidoph/Bulgaricus (Floranex) 1 tab BID PO Last administered on 09:30; Admin Dose 1 TAB; Start 07/01/16 at 21:00 Ibuprofen (Motrin) 600 mg TID PRN PO FEVER Last administered on 07/04/16 01:29 ; Admin Dose 600 MG; Start 07/03/16 at 19:30 Metoclopramide HCl (Reglan) 10 mg Q6H PRN IV NAUSEA Last administered on 01:47; Admin Dose 10 MG; Start 07/16/16 at 08:30 Hydrocodone Bit/ Homatropine Methylb (Hycodan Liquid) 5 ml TID PRN PO COUGH Last administered on 07/25/16 12:40; Admin Dose 5 ML; Start 07/23/16 at 13:30 CHANDRIKA MERLOS M.D. Jul 29, 2016 13:57
[2016-07-29 14:02] LABS: AADO2 Arterial 29.8 mmHg (7.0-24.0); Allen Test ACCEPTAB; Arterial Base Excess -0.3 mmol/L (-3.0-3); Arterial COHb 0.3 % (0.0-3.0); Arterial Fraction of Oxyhgb 93.9 % (93.0-99.0); Arterial HCO3 23.7 mmol/L (22.0-26.0); Arterial MetHb 0.4 % (0.0-1.5); Arterial Total Hemglobin 12.4 g/dl (12.0-18.0); MODE ROOM AIR
--- NOTE | 2016-07-29 14:47 | PN ---
Date/Time of Note Date/Time of Note DATE: 07/29/16 TIME: 14:45 Assessment/Plan VTE Prophylaxis VTE Prophylaxis Intervention: other Lines/Catheters IV Catheter Type (from Nrs): PICC Line Central line still needed: No Urinary Cath still in place: No Assessment/Plan Chief Complaint/Hosp Course IMPRESSION: The patient has Burkitt's lymphoma HX tracheostomy, status post thyroid mass, pancytopenia, abnormal liver function test. better SEPSIS better gallstone ABN LFT stable anemia post chemo better now prbc HYPOKALEMIA better uti pancytopenia better DECANNULATION done home soon arrange for home health PLAN home Problems: Subjective 24 Hr Interval Summary Cardiovascular: no complaints Gastrointestinal: no complaints Exam/Review of Systems Vital Signs Vitals Vital Signs Date Time Temp Pulse Resp B/P Pulse Ox O2 Delivery O2 Flow Rate FiO2 07/29/16 11:51 Nasal Cannula 2.0 07/29/16 08:11 97.9 80 18 135/75 99 07/26/16 14:00 36 Intake and Output 07/28/16 07/28/16 07/29/16 15:00 23:00 07:00 Intake Total 1774 ml 1754 ml Output Total 1200 ml Balance 1774 ml 554 ml Exam Neck: supple Respiratory: clear to auscultation Cardiovascular: regular rate and rhythm Gastrointestinal: soft Musculoskeletal: nl extremities to inspection Results Result Diagram: 07/29/16 0455 07/29/16 0455 Results 24 hrs Laboratory Tests Test 07/29/16 04:55 07/29/16 13:45 Anion Gap 14 Basophils # 0.0 Basophils % 0.3 Blood Morphology Comment Blood Urea Nitrogen 2 L Calcium Level 8.4 Carbon Dioxide Level 28 Chloride Level 106 Creatinine 0.39 L Eosinophils # 0.0 Eosinophils % 0.1 Glucose Level 87 Hematocrit 33.2 #L Hemoglobin 11.5 #L Lymphocytes # 2.3 Lymphocytes % 31.6 Mean Corpuscular Hemoglobin 30.9 Mean Corpuscular Hemoglobin Concent 34.8 Mean Corpuscular Volume 88.9 Mean Platelet Volume 8.7 Monocytes # 0.6 Monocytes % 7.7 Neutrophils # 4.4 Neutrophils % 60.3 Nucleated Red Blood Cells # 0.0 Nucleated Red Blood Cells % 0.0 Platelet Count 138 #L Potassium Level 3.7 Red Blood Count 3.73 #L Red Cell Distribution Width 14.6 H Sodium Level 144 White Blood Count 7.3 # Arterial Blood HCO3 23.7 Arterial Blood Base Excess -0.3 Arterial Blood Oxygen Saturation 94.6 L Bryce Test ACCEPTAB Arterial Blood Gas Puncture Site Right Radial Arterial Blood Carboxyhemoglobin 0.3 Arterial Blood Date Drawn 07/29/2016 1:50:51 PM Arterial Blood Methemoglobin 0.4 Arterial Blood pCO2 (Temp correct) 36.5 Arterial Blood pH (Temp corrected) 7.430 Arterial Blood pO2 (Temp corrected) 76.2 L Blood Gas A-a O2 Differential 29.8 H Blood Gas Modality ROOM AIR Blood Gas Notified Time 07/29/2016 2:02:22 PM Blood Gas Notified Whom JLD Blood Gas Specimen Source Blood arterial Blood Gas Temperature 37.0 FiO2 21.0 Oxyhemoglobin Percent 93.9 Total Hemoglobin 12.4 Medications Medications Current Medications Acyclovir (Zovirax) 400 mg BID PO Last administered on 07/29/16 09:30; Admin Dose 400 MG; Start 06/02/16 at 14:30 Diphenhydramine HCl (Benadryl) 25 mg Q4H PRN IV ALLERGIC REACTION Last administered on 06/06/16at 20:26; Admin Dose 25 MG; Start 06/02/16 at 18:30 Dexamethasone 10 mg 10 mg Q4H PRN IV ALLERGIC REACTION; Start 06/02/16 at 18: 30 Ondansetron HCl/ Sodium Chloride (Zofran Inj/NS) 54 ml @ 216 mls/hr Q6H PRN IV NAUSEA AND/OR VOMITING Last administered on 07/29/16 00:08; Admin Dose 216 MLS/HR; Start 06/02/16 at 18:30 Ondansetron HCl (Zofran Inj) 4 mg Q6H PRN IV NAUSEA AND/OR VOMITING Last administered on 07/29/16 12:16; Admin Dose 4 MG; Start 06/03/16 at 17:00 Acetaminophen (Tylenol Tab) 650 mg Q6H PRN PO PAIN LEVEL 1-3 OR FEVER Last administered on 07/12/16 16:42; Admin Dose 650 MG; Start 06/03/16 at 17:00 Acetaminophen (Tylenol Supp) 650 mg Q6H PRN [place] PAIN LEVEL 1-3 OR FEVER Last administered on 07/15/16 19:50; Admin Dose 650 MG; Start 06/03/16 at 17:00 Docusate Sodium (Colace) 100 mg Q12H PRN PO CONSTIPATION Last administered on 11:02; Admin Dose 100 MG; Start 06/03/16 at 17:00 Magnesium Hydroxide (Milk Of Mag) 30 ml DAILY PRN PO CONSTIPATION Last administered on 06/20/16 06:13; Admin Dose 30 ML; Start 06/03/16 at 17:00 Bisacodyl (Dulcolax) 5 mg DAILY PRN PO CONSTIPATION Last administered on 11:02; Admin Dose 5 MG; Start 06/03/16 at 17:00 Bisacodyl (Dulcolax Supp) 10 mg DAILY PRN [place] CONSTIPATION Last administered on 06/21/16 05:18; Admin Dose 10 MG; Start 06/03/16 at 17:00 Sodium Biphosphate/ Sodium Phosphate (Fleet Enema) 133 ml DAILY PRN [place] CONSTIPATION; Start 06/03/16 at 17:00 Enoxaparin Sodium (Lovenox) 30 mg DAILY SC Last administered on 06/12/16 08: 27; Admin Dose 30 MG; Start 06/04/16 at 09:00; Status Future Hold Eye Lubricant (Artificial Tears Oph) 2 drop QID BOTH EYES Last administered on 07/29/16 09:30; Admin Dose 2 DROP; Start 06/03/16 at 21:00 Eye Lubricant (Akwa Oint) 1 applic DAILY BOTH EYES Last administered on 09:31; Admin Dose 1 APPLIC; Start 06/04/16 at 09:00 Gabapentin (Neurontin) 200 mg TID PO Last administered on 07/29/16 09:30; Admin Dose 200 MG; Start 06/03/16 at 21:00 Levothyroxine Sodium (Synthroid) 100 mcg DAILY@06 PO Last administered on 05:13; Admin Dose 100 MCG; Start 06/04/16 at 06:00 Pantoprazole (Protonix Iv) 40 mg DAILY@06 IV Last administered on 07/29/16 05: 13; Admin Dose 40 MG; Start 06/09/16 at 06:00 Lorazepam (Ativan) 1 mg Q6H PRN IV AGITATION/ANXIETY Last administered on 00:08; Admin Dose 1 MG; Start 06/08/16 at 18:00 Acetaminophen/ Hydrocodone Bitart ([place] (5/325)) 1 tab Q6H PRN PO PAIN Last administered on 07/27/16 22:02; Admin Dose 1 TAB; Start 06/11/16 at 17:30 Collagenase (Santyl) 1 applic DAILY TOP Last administered on 07/22/16 09:18; Admin Dose 1 APPLIC; Start 06/12/16 at 09:00 Nystatin (Nystatin Susp) 5 ml QID PO Last administered on 07/29/16 09:30; Admin Dose 5 ML; Start 06/18/16 at 17:00 Scopolamine (Transderm-Scop) 1 patch Q72H TRANSDERM Last administered on 21:27; Admin Dose 1 PATCH; Start 06/22/16 at 21:00 Fluconazole 100 mg 100 mg DAILY PO Last administered on 07/29/16 09:30; Admin Dose 100 MG; Start 06/28/16 at 09:00 Sodium Chloride (NS) 1,000 ml @ 100 mls/hr Q10H IV Last administered on 06:03; Admin Dose 100 MLS/HR; Start 07/01/16 at 19:00 Lactobacillus Acidoph/Bulgaricus (Floranex) 1 tab BID PO Last administered on 09:30; Admin Dose 1 TAB; Start 07/01/16 at 21:00 Ibuprofen (Motrin) 600 mg TID PRN PO FEVER Last administered on 07/04/16 01:29 ; Admin Dose 600 MG; Start 07/03/16 at 19:30 Metoclopramide HCl (Reglan) 10 mg Q6H PRN IV NAUSEA Last administered on 01:47; Admin Dose 10 MG; Start 07/16/16 at 08:30 Hydrocodone Bit/ Homatropine Methylb (Hycodan Liquid) 5 ml TID PRN PO COUGH Last administered on 07/25/16 12:40; Admin Dose 5 ML; Start 07/23/16 at 13:30 GUERLINE SULLIVAN MD Jul 29, 2016 14:47
--- NOTE | 2016-07-29 14:49 | PN ---
Date/Time of Note Date/Time of Note DATE: 07/29/16 TIME: 14:48 Assessment/Plan VTE Prophylaxis VTE Prophylaxis Intervention: other Lines/Catheters IV Catheter Type (from Nrs): PICC Line Central line still needed: No Urinary Cath still in place: No Reason Cath still needed: other (indicate) Assessment/Plan Chief Complaint/Hosp Course IMPRESSION: The patient has Burkitt's lymphoma HX tracheostomy, status post thyroid mass, pancytopenia, abnormal liver function test. better SEPSIS better gallstone ABN LFT stable anemia post chemo better now prbc HYPOKALEMIA better uti pancytopenia better DECANNULATION done home soon arrange for home health PLAN home Problems: Subjective 24 Hr Interval Summary Gastrointestinal: no complaints Genitourinary: no complaints Exam/Review of Systems Vital Signs Vitals Vital Signs Date Time Temp Pulse Resp B/P Pulse Ox O2 Delivery O2 Flow Rate FiO2 07/29/16 11:51 Nasal Cannula 2.0 07/29/16 08:11 97.9 80 18 135/75 99 07/26/16 14:00 36 Intake and Output 07/28/16 07/28/16 07/29/16 15:00 23:00 07:00 Intake Total 1774 ml 1754 ml Output Total 1200 ml Balance 1774 ml 554 ml Exam Respiratory: clear to auscultation Cardiovascular: regular rate and rhythm Gastrointestinal: soft Musculoskeletal: nl extremities to inspection Results Result Diagram: 07/29/16 0455 07/29/16 0455 Results 24 hrs Laboratory Tests Test 07/29/16 04:55 07/29/16 13:45 Anion Gap 14 Basophils # 0.0 Basophils % 0.3 Blood Morphology Comment Blood Urea Nitrogen 2 L Calcium Level 8.4 Carbon Dioxide Level 28 Chloride Level 106 Creatinine 0.39 L Eosinophils # 0.0 Eosinophils % 0.1 Glucose Level 87 Hematocrit 33.2 #L Hemoglobin 11.5 #L Lymphocytes # 2.3 Lymphocytes % 31.6 Mean Corpuscular Hemoglobin 30.9 Mean Corpuscular Hemoglobin Concent 34.8 Mean Corpuscular Volume 88.9 Mean Platelet Volume 8.7 Monocytes # 0.6 Monocytes % 7.7 Neutrophils # 4.4 Neutrophils % 60.3 Nucleated Red Blood Cells # 0.0 Nucleated Red Blood Cells % 0.0 Platelet Count 138 #L Potassium Level 3.7 Red Blood Count 3.73 #L Red Cell Distribution Width 14.6 H Sodium Level 144 White Blood Count 7.3 # Arterial Blood HCO3 23.7 Arterial Blood Base Excess -0.3 Arterial Blood Oxygen Saturation 94.6 L Bryce Test ACCEPTAB Arterial Blood Gas Puncture Site Right Radial Arterial Blood Carboxyhemoglobin 0.3 Arterial Blood Date Drawn 07/29/2016 1:50:51 PM Arterial Blood Methemoglobin 0.4 Arterial Blood pCO2 (Temp correct) 36.5 Arterial Blood pH (Temp corrected) 7.430 Arterial Blood pO2 (Temp corrected) 76.2 L Blood Gas A-a O2 Differential 29.8 H Blood Gas Modality ROOM AIR Blood Gas Notified Time 07/29/2016 2:02:22 PM Blood Gas Notified Whom JLD Blood Gas Specimen Source Blood arterial Blood Gas Temperature 37.0 FiO2 21.0 Oxyhemoglobin Percent 93.9 Total Hemoglobin 12.4 Medications Medications Current Medications Acyclovir (Zovirax) 400 mg BID PO Last administered on 07/29/16 09:30; Admin Dose 400 MG; Start 06/02/16 at 14:30 Diphenhydramine HCl (Benadryl) 25 mg Q4H PRN IV ALLERGIC REACTION Last administered on 06/06/16at 20:26; Admin Dose 25 MG; Start 06/02/16 at 18:30 Dexamethasone 10 mg 10 mg Q4H PRN IV ALLERGIC REACTION; Start 06/02/16 at 18: 30 Ondansetron HCl/ Sodium Chloride (Zofran Inj/NS) 54 ml @ 216 mls/hr Q6H PRN IV NAUSEA AND/OR VOMITING Last administered on 07/29/16 00:08; Admin Dose 216 MLS/HR; Start 06/02/16 at 18:30 Ondansetron HCl (Zofran Inj) 4 mg Q6H PRN IV NAUSEA AND/OR VOMITING Last administered on 07/29/16 12:16; Admin Dose 4 MG; Start 06/03/16 at 17:00 Acetaminophen (Tylenol Tab) 650 mg Q6H PRN PO PAIN LEVEL 1-3 OR FEVER Last administered on 07/12/16 16:42; Admin Dose 650 MG; Start 06/03/16 at 17:00 Acetaminophen (Tylenol Supp) 650 mg Q6H PRN [place] PAIN LEVEL 1-3 OR FEVER Last administered on 07/15/16 19:50; Admin Dose 650 MG; Start 06/03/16 at 17:00 Docusate Sodium (Colace) 100 mg Q12H PRN PO CONSTIPATION Last administered on 11:02; Admin Dose 100 MG; Start 06/03/16 at 17:00 Magnesium Hydroxide (Milk Of Mag) 30 ml DAILY PRN PO CONSTIPATION Last administered on 06/20/16 06:13; Admin Dose 30 ML; Start 06/03/16 at 17:00 Bisacodyl (Dulcolax) 5 mg DAILY PRN PO CONSTIPATION Last administered on 11:02; Admin Dose 5 MG; Start 06/03/16 at 17:00 Bisacodyl (Dulcolax Supp) 10 mg DAILY PRN [place] CONSTIPATION Last administered on 06/21/16 05:18; Admin Dose 10 MG; Start 06/03/16 at 17:00 Sodium Biphosphate/ Sodium Phosphate (Fleet Enema) 133 ml DAILY PRN [place] CONSTIPATION; Start 06/03/16 at 17:00 Enoxaparin Sodium (Lovenox) 30 mg DAILY SC Last administered on 06/12/16 08: 27; Admin Dose 30 MG; Start 06/04/16 at 09:00; Status Future Hold Eye Lubricant (Artificial Tears Oph) 2 drop QID BOTH EYES Last administered on 07/29/16 09:30; Admin Dose 2 DROP; Start 06/03/16 at 21:00 Eye Lubricant (Akwa Oint) 1 applic DAILY BOTH EYES Last administered on 09:31; Admin Dose 1 APPLIC; Start 06/04/16 at 09:00 Gabapentin (Neurontin) 200 mg TID PO Last administered on 07/29/16 09:30; Admin Dose 200 MG; Start 06/03/16 at 21:00 Levothyroxine Sodium (Synthroid) 100 mcg DAILY@06 PO Last administered on 05:13; Admin Dose 100 MCG; Start 06/04/16 at 06:00 Pantoprazole (Protonix Iv) 40 mg DAILY@06 IV Last administered on 07/29/16 05: 13; Admin Dose 40 MG; Start 06/09/16 at 06:00 Lorazepam (Ativan) 1 mg Q6H PRN IV AGITATION/ANXIETY Last administered on 00:08; Admin Dose 1 MG; Start 06/08/16 at 18:00 Acetaminophen/ Hydrocodone Bitart (Preston (5/325)) 1 tab Q6H PRN PO PAIN Last administered on 07/27/16 22:02; Admin Dose 1 TAB; Start 06/11/16 at 17:30 Collagenase (Santyl) 1 applic DAILY TOP Last administered on 07/22/16 09:18; Admin Dose 1 APPLIC; Start 06/12/16 at 09:00 Nystatin (Nystatin Susp) 5 ml QID PO Last administered on 07/29/16 09:30; Admin Dose 5 ML; Start 06/18/16 at 17:00 Scopolamine (Transderm-Scop) 1 patch Q72H TRANSDERM Last administered on 21:27; Admin Dose 1 PATCH; Start 06/22/16 at 21:00 Fluconazole 100 mg 100 mg DAILY PO Last administered on 07/29/16 09:30; Admin Dose 100 MG; Start 06/28/16 at 09:00 Sodium Chloride (NS) 1,000 ml @ 100 mls/hr Q10H IV Last administered on 06:03; Admin Dose 100 MLS/HR; Start 07/01/16 at 19:00 Lactobacillus Acidoph/Bulgaricus (Floranex) 1 tab BID PO Last administered on 09:30; Admin Dose 1 TAB; Start 07/01/16 at 21:00 Ibuprofen (Motrin) 600 mg TID PRN PO FEVER Last administered on 07/04/16 01:29 ; Admin Dose 600 MG; Start 07/03/16 at 19:30 Metoclopramide HCl (Reglan) 10 mg Q6H PRN IV NAUSEA Last administered on 01:47; Admin Dose 10 MG; Start 07/16/16 at 08:30 Hydrocodone Bit/ Homatropine Methylb (Hycodan Liquid) 5 ml TID PRN PO COUGH Last administered on 07/25/16 12:40; Admin Dose 5 ML; Start 07/23/16 at 13:30 GUERLINE SULLIVAN MD Jul 29, 2016 14:49
--- NOTE | 2016-07-30 21:06 | QN ---
Documentation Comment [id number] GUERLINE SULLIVAN MD Jul 30, 2016 21:06
--- NOTE | 2016-07-31 07:44 | DS ---
DATE OF ADMISSION: 06/02/2016 DATE OF DISCHARGE: 07/29/2016 The patient has history of neck mass, tracheostomy. The patient was admitted with the diagnosis of stage IIA Galilea lymphoma. The patient was started on chemotherapy with Rituxan, Cytoxan, oncovin, Adriamycin, methotrexate. The patient was also given acyclovir, Diflucan daily, and Neupogen 300 mcg daily from day 3 to 7. Zofran. The patient also developed anemia, thrombocytopenia, and abnormal LFTs, which were noted. The patient has neuropathy treated with gabapentin. The patient also had systemic inflammatory response syndrome, which was addressed and treated. The patient had episodes of nausea and vomiting IV fluid was given. The patient's anemia was repleted by transfusion. The patient had neutropenic fever, which was and treated with antibiotics. Liver function tests improved. The patient was seen by Dr. Higgins in consultation. His recommendation was followed. The patient also was seen in pulmonary consultation for history of tracheostomy was done. The patient was on bronchodilator. The patient also required physical therapy The patient responded very well to chemotherapy. The patient had part 2 of R- IVAC treatment for Galilea lymphoma including Rituxan, ifosfamide, etoposide, , [place] and the patient received acyclovir, Diflucan, Epogen, and also required platelet transfusion and _ transfusion. The patient's tracheostomy was decannulated. The patient tolerated the procedure well. The patient was cleared by to be discharged . The patient required blood transfusion. The patient had . Wound culture was positive urine, MRSA, respiratory culture negative from the blood on 06/08. The patient underwent neck CT scan and liver ultrasound. Ultrasound of the abdomen showed cholelithiasis, . The patient placement and chemotherapy out pt. DISCHARGE DIAGNOSES: Include: 1. The patient has Galilea lymphoma status post IVAC chemotherapy regimen. 2. Status post neutropenic fever. 3. Polymicrobial infection. 4. Methicillin resistant Staphylococcus aureus. 5. Staph bacteremia. 6. Abnormal LFTs 7. The patient also has anemia, neutropenia, pancytopenia, resolving. 8. The patient has sirs as well. DISCHARGE MEDICATIONS: Include: 1. hhn 2. Tylenol. 3. Acyclovir. 4. pain meds. 5. Santyl. 6. Diflucan. 7. Gabapentin. 8. Hydrocodone. 9. Albuterol. 10. mvi. 11. Minto. DISCHARGE INSTRUCTIONS: Asked the patient to follow up with PCP, Dr. dang, as an outpatient and Dr. Livingston as an outpatient. Dictated By: GUERLINE SULLIVAN MD BS/NTS Conf#: [id number] DID#: [id number] CC: TELLY SOLANO MD;*EndCC* MTDD
== END 2016-07-29 17:50 | disposition home or self-care (01) | DRG 871 ==
LOC: SDS 12:43 → MS1 12:51 → SDS 15:10 → ICU 06-09 05:32 → MS2 06-10 19:15 → MS1 06-14 15:28
PROVIDERS: ADMIT Internal Medicine Nephrology; ATTEND Internal Medicine Nephrology
PROC: 3E04305 Introduction of Other Antineoplastic into Central Vein, Percutaneous Approach (ICD-10-PCS; 2016-06-02)
PROC: 30277N1 Transfusion of Nonautologous Red Blood Cells into Products of Conception, Circulatory, Via Natural or Artificial Opening (ICD-10-PCS; principal; 2016-06-04)
PROC: 30233R1 Transfusion of Nonautologous Platelets into Peripheral Vein, Percutaneous Approach (ICD-10-PCS; 2016-06-11)
DX: A41.9 Sepsis, unspecified organism (principal); J96.90 Respiratory failure, unspecified, unspecified whether with hypoxia or hypercapnia; J69.0 Pneumonitis due to inhalation of food and vomit; Z93.0 Tracheostomy status; D70.9 Neutropenia, unspecified; D61.810 Antineoplastic chemotherapy induced pancytopenia; N39.0 Urinary tract infection, site not specified; C83.71 Burkitt lymphoma, lymph nodes of head, face, and neck; B37.0 Candidal stomatitis; R13.10 Dysphagia, unspecified; D64.81 Anemia due to antineoplastic chemotherapy; B96.5 Pseudomonas (aeruginosa) (mallei) (pseudomallei) as the cause of diseases classified elsewhere; B95.61 Methicillin susceptible Staphylococcus aureus infection as the cause of diseases classified elsewhere; K80.80 Other cholelithiasis without obstruction; F41.9 Anxiety disorder, unspecified; R50.81 Fever presenting with conditions classified elsewhere; R53.1 Weakness; R22.1 Localized swelling, mass and lump, neck; R74.0 Nonspecific elevation of levels of transaminase and lactic acid dehydrogenase [LDH]; E87.6 Hypokalemia; J20.9 Acute bronchitis, unspecified; Z51.5 Encounter for palliative care; Z51.11 Encounter for antineoplastic chemotherapy; Z92.21 Personal history of antineoplastic chemotherapy; Z22.322 Carrier or suspected carrier of Methicillin resistant Staphylococcus aureus
CPT/HCPCS: 36430; 36600; 70492; 71010; 76705; 80048; 80053; 80202; 80299; 81001; 81003; 82803; 82962; 83605; 83615; 83735; 84105; 84443; 84560; 85025; 85610; 85730; 86038; 86255; 86644; 86704; 86709; 86803; 86850; 86900; 86901; 86920; 86945; 87040; 87070; 87081; 87086; 87340; 89220; 94640; 94664; 97001; 97002; 97110; 97116; 97530; J9100; J9181; J9209; J9310; C9113; J0692; J0743; J1100; J1200; J1580; J1650; J2060; J2185; J2405; J2765; J3370; J3480; J7030; J7040; J7042; J7050; J7070; J9000; J9070; J9260; J9370; P9016; P9035; Q9967

== ENCOUNTER 2016-08-18 11:11 | Inpatient (IN) | payer OTHER ==
[2016-08-18] VITALS (21 sets, daily range): BP systolic 109–141; BP diastolic 67–95; PULSE 72–88; RESP 14–18; Ht 157.5 cm; Wt 65.2 kg
[~2016-08-18] VITALS: Ht 157.5 cm; Wt 65.2 kg
[~2016-08-18 11:11] MED LIST changes: +ACET325T33 PO; +ACID1TAB14 PO; +ACYC400T2 PO; +BISA5TAB6 PO; -DEC2 PO; +FLUC100T PO; +GABA100C14 PO; +HYDR-3498 PO; -IBUP-1542 PO; +IPRA3AMP HHN; -LOSA25TA5 PO; +NYST1000 PO; +SAN30GM TOP; +SCOP1PAT TRANSDERM
[2016-08-18] MEDS: SOD CHLORIDE 0.9% 1,000 ML IV SCH (11:44)
[2016-08-18] MEDS ORDERED: RITUXIMAB IV SCH (12:00)
[2016-08-18] MEDS ORDERED: SOD CHLORIDE 0.9% IV SCH ×2 (12:00→16:00)
[2016-08-18] MEDS: ONDANSETRON INJ 16 MG, DEXAMETHASONE 4 MG/ML 10 MG, DIPHENHYDRAMINE 25 MG in SOD CHLORI... IV SCH (12:12)
[2016-08-18 12:25] LABS: ADD SCAN DIFF NO
[2016-08-18] MEDS: ACETAMINOPHEN 325 MG TAB PO SCH (12:29)
[2016-08-18 12:37] LABS: ALBUMIN 3.2 g/dl (3.3-4.9)
[2016-08-18 12:40] LABS: ALBUMIN/GLOBULIN RATIO 1.6; BILIRUBIN,INDIRECT 0.7 mg/dl (0-1.1); BILIRUBIN,TOTAL 0.7 mg/dl (0.2-1.3); CREATININE 0.43 mg/dl (0.44-1.00); TOTAL PROTEIN 5.2 g/dl (6.1-8.1)
[2016-08-18 12:41] LABS: CALCIUM 8.9 mg/dl (8.4-10.2); MAGNESIUM 1.5 mg/dl (1.7-2.5); PHOSPHORUS 4.3 mg/dl (2.5-4.9)
[2016-08-18 12:42] LABS: ABNORMAL IP MESSAGE 1; BASOPHIL # 0.1 10^3/ul (0.0-0.1); BASOPHILS % 0.7 % (0.0-2.0); EOSINOPHILS # 0.2 10^3/ul (0.0-0.5); EOSINOPHILS % 1.7 % (0.0-7.0); HEMATOCRIT 36.3 % (37.0-47.0); HEMOGLOBIN 11.6 g/dl (12.0-16.0); LYMPHOCYTES # 6.4 10^3/ul (0.8-2.9); LYMPHOCYTES % 53.1 % (15.0-51.0); MEAN CORPUSCULAR HEMOGLOBIN 29.6 pg (29.0-33.0); MEAN CORPUSCULAR VOLUME 92.6 fl (82.0-101.0); MEAN PLATELET VOLUME 9.7 fl (7.4-10.4); MONOCYTE # 0.9 10^3/ul (0.3-0.9); MONOCYTES % 7.4 % (0.0-11.0); NEUTROPHIL # 3.8 10^3/ul (1.6-7.5); NEUTROPHILS % 31.9 % (39.0-77.0); NUCLEATED RED BLOOD CELLS% 0.2 /100WBC (0.0-0.0); PLATELET COUNT 172 10^3/UL (140-415); RED BLOOD COUNT 3.92 10^6/ul (4.20-5.40); RED CELL DISTRIBUTION WIDTH 17.2 % (11.5-14.5)
[2016-08-18] MEDS ORDERED: DEXAMETHASONE 10 MG/ML 1 ML INJ IV PRN (13:30)
[2016-08-18] MEDS ORDERED: LORAZEPAM 0.5 MG TAB PO PRN (13:30)
[2016-08-18] MEDS: CEFTRIAXONE 1 GM/50 ML (PMX) 50 ML IVPB SCH (14:25)
--- NOTE | 2016-08-18 14:36 | CONS ---
Date/Time of Note Date/Time of Note DATE: 08/18/16 TIME: 14:22 Assessment/Plan Assessment/Plan Chief Complaint/Hosp Course 56 yo female with massive neck mass causing tracheal compression and airway compromise s/p tracheostomy placement. 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 Pt was given cycle 1A and 1Bof R HyperCVAD but had only a partial response to therapy and severe side effects. We have thus changed her chemotherapy regimen. She is now s/p cycle 1B of R-IVACand has now completed her chemotherapy. Most recent CT neck showed resolution of the mass. . Problems: Additional Assessment/Plan # Burkitt's lymphoma -proceed with cycle 2A R CODOX -M -Rituximab (Rituxan) as follows: * Cycle 1: 375 mg/m2 (660mg) IV on Day 1 -Cyclophosphamide (Cytoxan) 800 mg/m2 ( 1415mg) IV once per day on days 1 & 2 -Vincristine (Oncovin) 1.0 mg (dose reduced for neuropathy) days 1 & 15 . -Doxorubicin (Adriamycin) 50 mg/m2 (88mg) IV once on day 1 . will need to dose reduce by 50% for elevated transaminases -Methotrexate (MTX) 3100mg/m2 (175mg) IV over 1 hour then 900mg/m2 (1590mg) over 23 hours on day 15. will start IVF with 2 amps Na HCo3 prior to MTX infusion since Urine Ph > 7.0. Leucovorin 25mg IV q 4 hours will start 36 hours after MTX starts until MTX level is < 0.05. # Supportive Care and prophylactic meds -Started Acyclovir 400mg BID -fluconazole 100mg q day -Neupogen 300mcg q day -Zofran ordered prn nausea #Expected Pancytopenia -keep Hg> 8 and platelets > 10 # Elevated AST and ALT, likely related to methotrexate. Monitor. 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 all steroids should be discontinued for now unless they are part of the chemotherapy regimen -continue to work with physical therapy. # Respiratory compromise -trach has been removed approximately 40 min were spent at patient's bedside and in coordination of her care Consultation Date/Type/Reason Admit Date/Time Aug 18, 2016 at 11:11 Date of Consultation: Aug 18, 2016 Type of Consultation: Hematology Reason for Consultation Stage II Burkitts lymphona Referring Provider: ABISAI BRANCH Hx of Present Illness 56-year-old female who presented to [facility] on 03/31/2016 complaining of a large swelling in the left side of her neck and with increasing difficulty breathing. CT scan was done which showed a soft tissue mass. PT had an emergent trach place. She was subsequently diagnosed with high grade Burkitt's lymphoma. She has since completed 4 cycles of chemotherapy and is being admitted for her next cycle. Constitutional: no complaints Eyes: no complaints ENT: no complaints Cardiovascular: no complaints Gastrointestinal: no complaints Genitourinary: no complaints Musculoskeletal: no complaints Skin: no complaints Neurologic: no complaints Past Surgical History Past Surgical Hx: endoscopy, other (s/p trach placement and removal) Family History Significant Family History: no pertinent family hx Social History Alcohol Use: none Drug Use: none Exam/Review of Systems Vital Signs Vitals Vital Signs Date Time Temp Pulse Resp B/P Pulse Ox O2 Delivery O2 Flow Rate FiO2 08/18/16 12:02 98.0 88 16 131/95 97 Room Air Exam Constitutional: alert, oriented Psych: anxiety, no complaints Eyes: nl conjunctiva ENMT: nl external ears & nose Neck: non-tender, supple Respiratory: clear to auscultation, normal air movement Cardiovascular: nl pulses, regular rate and rhythm Gastrointestinal: soft Musculoskeletal: nl extremities to inspection, nl gait and stance Extremities: normal pulses Results Result Diagram: 08/18/16 1217 08/18/16 1217 Results 24 hrs Laboratory Tests Test 08/18/16 12:17 Alanine Aminotransferase (ALT/SGPT) 154 H Albumin 3.2 L Albumin/Globulin Ratio 1.60 Alkaline Phosphatase 211 H Anion Gap 12 Aspartate Amino Transf (AST/SGOT) 171 H Basophils # 0.1 Basophils % 0.7 Blood Urea Nitrogen 5 L Calcium Level 8.9 Carbon Dioxide Level 29 Chloride Level 104 Creatinine 0.43 L Direct Bilirubin 0.00 Eosinophils # 0.2 Eosinophils % 1.7 Globulin 2.00 Glucose Level 90 Hematocrit 36.3 L Hemoglobin 11.6 L Indirect Bilirubin 0.7 Lymphocytes # 6.4 H Lymphocytes % 53.1 H Magnesium Level 1.5 L Mean Corpuscular Hemoglobin 29.6 Mean Corpuscular Hemoglobin Concent 32.0 Mean Corpuscular Volume 92.6 Mean Platelet Volume 9.7 Monocytes # 0.9 Monocytes % 7.4 Neutrophils # 3.8 Neutrophils % 31.9 L Nucleated Red Blood Cells # 0.0 Nucleated Red Blood Cells % 0.2 H Phosphorus Level 4.3 Platelet Count 172 Potassium Level 4.0 Red Blood Count 3.92 L Red Cell Distribution Width 17.2 H Sodium Level 141 Total Bilirubin 0.7 Total Protein 5.2 L White Blood Count 12.0 #H Medications Medications Current Medications Sodium Chloride 1,000 ml @ 70 mls/hr [id number] IV Last administered on 11:44; Admin Dose 70 MLS/HR; Start 08/18/16 at 11:00 Ondansetron HCl/ Dexamethasone/ Diphenhydramine HCl/Sodium Chloride (Zofran Inj / Decadron/Benadryl/ NS) 50 ml @ 100 mls/hr DAILY IV Last administered on 08/18 12:12; Admin Dose 100 MLS/HR; Start 08/18/16 at 11:00; Stop 08/19/16 at 13 :00 Acetaminophen 650 mg 650 mg DAILY PO Last administered on 08/18/16 12:29; Admin Dose 650 MG; Start 08/18/16 at 11:00; Stop 08/19/16 at 13:00 Rituximab 500 mg/ Rituximab 155 mg/ Sodium Chloride 500 ml @ 0 mls/hr ONCE IV ; Start 08/18/16 at 12:00; Stop 08/18/16 at 15:00 Cyclophosphamide 1 gm/ Cyclophosphamide 400 mg/Sodium Chloride 250 ml @ 250 mls /hr DAILY@15 IV ; Start 08/18/16 at 15:00; Stop 08/19/16 at 15:59 Vincristine Sulfate 1 mg/ Sodium Chloride 100 ml @ 100 mls/hr Q15D IV ; Start 08/18/16 at 16:00; Stop 09/02/16 at 16:59 Doxorubicin HCl/ Sodium Chloride (Adriamycin/NS) 142.5 ml @ 142.5 mls/ hr ONCE IVPB ; Start 08/18/16 at 17:00; Stop 08/18/16 at 17:59 Diphenhydramine HCl (Benadryl) 25 mg Q4 PRN IV ALLERGIC REACTION; Start at 13:30 Meperidine HCl (Demerol) 25 mg Q2 PRN IV PAIN; Start 08/18/16 at 13:30 Dexamethasone (Decadron) 10 mg Q4 PRN IV ALLERGIC REACTION; Start 08/18/16 at 13:30 Metoclopramide HCl (Reglan) 5 mg Q6H PRN IV NAUSEA; Start 08/18/16 at 13:30 Famotidine 20 mg 20 mg DAILY PO ; Start 08/19/16 at 09:00 Ceftriaxone Sodium (Rocephin) 50 ml @ 100 mls/hr Q24H IVPB ; Start 08/18/16 at 13:30; Stop 08/25/16 at 13:29 Lorazepam (Ativan) 0.5 mg Q6H PRN PO ANXIETY; Start 08/18/16 at 13:30 CHANDRIKA MERLOS M.D. Aug 18, 2016 14:32
--- NOTE | 2016-08-18 15:27 | CONS ---
DATE OF ADMISSION: 08/18/2016 DATE OF CONSULTATION: 08/18/2016 REQUESTING FILLER ROOM ATTENDANT: Dr. Stephanie Thomas CHIEF COMPLAINT: Patient has been admitted for chemotherapy. HISTORY OF PRESENT ILLNESS: This is a very pleasant 56-year-old female with past medical history of neck mass, status post tracheostomy, Burkitt lymphoma status post IV AC chemotherapy regimen, neutr openic fever, polymicrobial infection, methicillin-resistant Staphylococcus aureus, anemia, neutrope shirin, who has been followed by Dr. Stephanie Thomas as outpatient and has been admitted by Dr. Thomas for 2 rounds of chemotherapy. At this time, the patient denies having any chest pain, shortness of kaylan th, nausea, vomiting, diarrhea. No headache, dizziness, lightheadedness. No change in visual acuit y, diplopia, photophobia. No abdominal pain, no discomfort with oral intake or any other discomfort . PAST MEDICAL AND SURGICAL HISTORY: As above per HPI. MEDICATIONS 1. Tylenol. 2. Acyclovir. 3. Combivent. 4. Dulcolax. 5. Santyl. 6. Diclofenac. 7. Diflucan. 8. Gabapentin. 9. Lovelady. 10. Lactobacillus. 11. Nystatin. 12. Transdermal Scopolamine. ALLERGIES: NO KNOWN DRUG ALLERGIES. FAMILY HISTORY: No family history of cancer. SOCIAL HISTORY: Negative x2 for smoking, alcohol, illicit drugs. REVIEW OF SYSTEMS: As above per HPI, otherwise 12 review of systems has been found to be negative. PHYSICAL EXAMINATION: VITAL SIGNS: Temperature 98, pulse 88, respirations 16, blood pressure 131/95, oxygen 97% in room a ir. GENERAL APPEARANCE: The patient is lying in bed comfortably without any distress. She is awake, al ert, oriented. She is able to answer my questions properly. EYES AND ENT: Conjunctivae and lids are normal. Pupils are normal. Extraocular normal. Hearing g rossly normal. Lips are normal. Oral mucosa is moist. NECK: Supple. Trachea is midline. No lymphadenopathy. RESPIRATORY: Effort is normal. Clear to auscultate bilaterally. CARDIOVASCULAR: Normal S1, S2. Regular rhythm and rate. No murmur, no bruits, no edema. Peripher al pulses and radial pulses palpable. Cap refill is normal. CHEST: Normal expansion of thorax during inspiration. GASTROINTESTINAL: Abdomen is soft, nontender, not distended. Bowel sounds present. No guarding, n o rebound. GENITOURINARY: Deferred. MUSCULOSKELETAL: Upper and lower extremities within normal limits. Full range of motion, strength 5/5 both upper and lower extremities. NEUROLOGIC: Cranial nerves II through XII are grossly intact. PSYCHIATRIC: Normal judgment and insight. Alert and oriented x3. Mood and affect is normal. ASSESSMENT AND PLAN: 1. History of Burkitt lymphoma. The patient has been admitted by Dr. Thomas for chemotherapy. 2. History of renal insufficiency. Follow up renal panel. Continue IV fluids. 3. History of transaminitis. Follow up liver function tests. 4. Essential hypertension, well controlled. 5. Tracheostomy status. The patient had pessary removed on the previous admission. The patient wi ll continue wound care. 6. Michelle thyroiditis. The patient has been followed up with facilities maintenance technician as outpatient. 7. For deep venous thrombosis prophylaxis on sequential compression devices. 8. For gastrointestinal prophylaxis, place the patient on Pepcid. 9. We will continue to monitor patient closely. Further recommendations, management and treatment as per clinical course. Total of time was spent for evaluation of patient and admission workup 40 minutes. Dictated By: JANETH BASS/NTS Conf#: [id number] DID#: [id number]
[2016-08-18] MEDS ORDERED: VINCRISTINE IV SCH (16:00)
[2016-08-18 16:38] LABS: HAAIG REFLEX REFLEX FILED
[2016-08-18] MEDS ORDERED: SOD CHLORIDE 0.9% IVPB SCH ×2 (17:00→17:30)
[2016-08-18] MEDS ORDERED: DOXORUBICIN IVPB SCH ×2 (17:00→17:30)
[2016-08-18 17:42] LABS: HEPATITIS B CORE ANTIBODY NEGATIVE (NEGATIVE)
--- NOTE | 2016-08-18 17:43 | RADRPT ---
PROCEDURE: US Abdomen Complete. CLINICAL INDICATION: Transaminitis TECHNIQUE: Multiple real-time images were acquired of the patient's abdomen and retroperitoneum ut ilizing a high resolution transducer. COMPARISON: Liver ultrasound from 06/21/2016 FINDINGS: The liver measures 18.5 cm and demonstrates increased echogenicity. There is no intrahepatic biliary ductal dilatation. The extrahepatic common bile duct measures 6 mm. The main portal vein is patent with proper directional flow. There is cholelithiasis. There is no gallbladder wall thickening or pericholecystic fluid. The visualized pancreas is unremarkable. The spleen measures 11.8 cm. The right kidney measures 10.0 cm. The left kidney measures 9.2 cm. There are no renal calculi or hy dronephrosis bilaterally. The visualized abdominal aorta and IVC are grossly unremarkable. IMPRESSION: Hepatomegaly with moderate to severe fatty infiltration. Cholelithiasis without evidence of acute cholecystitis. The CBD is top - normal. RPTAT: EE Physician Fer Date Time Electronically viewed and signed by Physician Fer on 08/18/2016 17:43 SETH
[2016-08-18] MEDS: CYCLOPHOSPHAMIDE IV SCH (18:13)
[2016-08-18] MEDS: SOD CHLORIDE 0.9% IV SCH (18:13)
[2016-08-19 00:05] VITALS: BP 144/78; PULSE 75; RESP 17
[2016-08-19] MEDS: SOD CHLORIDE 0.9% 1,000 ML IV SCH ×3 (01:18→18:34)
[2016-08-19 05:04] LABS: ADD SCAN DIFF NO
[2016-08-19 05:16] LABS: ABNORMAL IP MESSAGE 1; BASOPHILS % 0.4 % (0.0-2.0); EOSINOPHILS % 0.2 % (0.0-7.0); HEMATOCRIT 31.1 % (37.0-47.0); HEMOGLOBIN 9.8 g/dl (12.0-16.0); LYMPHOCYTES # 3.7 10^3/ul (0.8-2.9); LYMPHOCYTES % 34.8 % (15.0-51.0); MEAN CORPUSCULAR HEMOGLOBIN 29.3 pg (29.0-33.0); MEAN CORPUSCULAR HGB CONC 31.5 g/dl (32.0-37.0); MEAN CORPUSCULAR VOLUME 93.1 fl (82.0-101.0); MEAN PLATELET VOLUME 10.4 fl (7.4-10.4); MONOCYTE # 0.9 10^3/ul (0.3-0.9); MONOCYTES % 8.6 % (0.0-11.0); NEUTROPHIL # 5.2 10^3/ul (1.6-7.5); NEUTROPHILS % 49.7 % (39.0-77.0); PLATELET COUNT 133 10^3/UL (140-415); RED BLOOD COUNT 3.34 10^6/ul (4.20-5.40); RED CELL DISTRIBUTION WIDTH 17.3 % (11.5-14.5); WHITE BLOOD COUNT 10.5 10^3/ul (4.8-10.8)
[2016-08-19 05:30] LABS: ALBUMIN 2.7 g/dl (3.3-4.9)
[2016-08-19 05:31] LABS: POTASSIUM 3.6 mmol/L (3.5-5.1)
[2016-08-19 05:33] LABS: ALBUMIN/GLOBULIN RATIO 1.42; BILIRUBIN,INDIRECT 0.3 mg/dl (0-1.1); BILIRUBIN,TOTAL 0.3 mg/dl (0.2-1.3); CREATININE 0.43 mg/dl (0.44-1.00); TOTAL PROTEIN 4.6 g/dl (6.1-8.1)
[2016-08-19 05:34] LABS: CALCIUM 8.3 mg/dl (8.4-10.2); MAGNESIUM 1.4 mg/dl (1.7-2.5)
[2016-08-19 08:07] VITALS: BP 124/64; RESP 16
[2016-08-19] MEDS ORDERED: ONDANSETRON INJ 8 MG in SOD CHLORIDE 0.9% 50 ML IV PRN (09:00)
[2016-08-19] MEDS ORDERED: ONDANSETRON INJ 8 MG in DEXTROSE 5% 50 ML IV PRN (09:00)
[2016-08-19] MEDS: FAMOTIDINE 20 MG TAB PO SCH (09:10)
[2016-08-19] MEDS ORDERED: TRIMETHOBENZAMIDE 300 MG CAP PO ONE (11:00)
--- NOTE | 2016-08-19 11:06 | PN ---
Date/Time of Note Date/Time of Note DATE: 08/19/16 TIME: 11:04 Assessment/Plan VTE Prophylaxis VTE Prophylaxis Intervention: SCD's Lines/Catheters IV Catheter Type (from Nrs): PICC Line Central line still needed: Yes Assessment/Plan Chief Complaint/Hosp Course ASSESSMENT AND PLAN: 1. History of Burkitt lymphoma. Continue chemotherapy as per oncology. 2. History of renal insufficiency. Follow up renal panel. Continue IV fluids. 3. History of transaminitis. Stable, follow up liver function tests. 4. Essential hypertension, well controlled. 5. Michelle thyroiditis. The patient has been followed up with potato peeler as outpatient. 6. Intractable nausea. Continue Reglan Zofran and Tigan 7. For deep venous thrombosis prophylaxis on sequential compression devices. 8. For gastrointestinal prophylaxis, place the patient on Pepcid. We will continue to monitor patient closely. Further recommendations, management and treatment as per clinical course. Problems: Subjective 24 Hr Interval Summary Free Text/Dictation Patient complains of having nausea without any vomiting Complains of having abdominal pain Denies of any chest pain or shortness of breath Exam/Review of Systems Vital Signs Vitals Vital Signs Date Time Temp Pulse Resp B/P Pulse Ox O2 Delivery O2 Flow Rate FiO2 08/19/16 08:07 97.7 96 16 124/64 98 08/19/16 00:05 Room Air Intake and Output 08/18/16 08/18/16 08/19/16 15:00 23:00 07:00 Intake Total 100 ml 1550 ml 1191 ml Output Total 300 ml 750 ml Balance 100 ml 1250 ml 441 ml Exam General: The patient is well-developed, Not in acute distress. HEENT: Atraumatic, normocephalic. The pupils are equal and round . Neck: Supple with full range of motion. Chest: Normal expansion of the thorax during inspiration Lungs: Clear to auscultation bilaterally Heart: Normal S1-S2, Regular rhythm and rate. Abdomen: Soft , nontender, nondistended , bowel sounds are present. Extremities: Normal to inspection, no edema no cyanosis Neurologic: Normal mental status,The patient is awake, alert and oriented . Results Result Diagram: 08/19/16 0435 08/19/16 0435 Results 24 hrs Laboratory Tests Test 08/18/16 12:17 08/18/16 16:20 08/19/16 04:35 Alanine Aminotransferase (ALT/SGPT) 154 H 175 H Albumin 3.2 L 2.7 L Albumin/Globulin Ratio 1.60 1.42 Alkaline Phosphatase 211 H 198 H Anion Gap 12 13 Aspartate Amino Transf (AST/SGOT) 171 H 202 H Basophils # 0.1 0.0 Basophils % 0.7 0.4 Blood Urea Nitrogen 5 L 7 Calcium Level 8.9 8.3 L Carbon Dioxide Level 29 27 Chloride Level 104 107 Creatinine 0.43 L 0.43 L Direct Bilirubin 0.00 0.00 Eosinophils # 0.2 0.0 Eosinophils % 1.7 0.2 Globulin 2.00 1.90 Glucose Level 90 104 Hematocrit 36.3 L 31.1 L Hemoglobin 11.6 L 9.8 L Indirect Bilirubin 0.7 0.3 Lymphocytes # 6.4 H 3.7 H Lymphocytes % 53.1 H 34.8 Magnesium Level 1.5 L 1.4 L Mean Corpuscular Hemoglobin 29.6 29.3 Mean Corpuscular Hemoglobin Concent 32.0 31.5 L Mean Corpuscular Volume 92.6 93.1 Mean Platelet Volume 9.7 10.4 Monocytes # 0.9 0.9 Monocytes % 7.4 8.6 Neutrophils # 3.8 5.2 Neutrophils % 31.9 L 49.7 Nucleated Red Blood Cells # 0.0 0.0 Nucleated Red Blood Cells % 0.2 H 0.0 Phosphorus Level 4.3 Platelet Count 172 133 #L Potassium Level 4.0 3.6 Red Blood Count 3.92 L 3.34 L Red Cell Distribution Width 17.2 H 17.3 H Sodium Level 141 143 Total Bilirubin 0.7 0.3 Total Protein 5.2 L 4.6 L White Blood Count 12.0 #H 10.5 Hepatitis B Core Total Antibody NEGATIVE Hepatitis B Surface Antibody POSITIVE H Hepatitis B Surface Antigen NEGATIVE Hepatitis C Antibody NEGATIVE Lactate Dehydrogenase 1164 H Medications Medications Current Medications Sodium Chloride 1,000 ml @ 70 mls/hr [id number] IV Last administered on t 03:37; Admin Dose 70 MLS/HR; Start 08/18/16 at 11:00 Ondansetron HCl/ Dexamethasone/ Diphenhydramine HCl/Sodium Chloride (Zofran Inj / Decadron/Benadryl/ NS) 50 ml @ 100 mls/hr DAILY IV Last administered on 08/18 12:12; Admin Dose 100 MLS/HR; Start 08/18/16 at 11:00; Stop 08/19/16 at 13 :00 Acetaminophen 650 mg 650 mg DAILY PO Last administered on 08/18/16 12:29; Admin Dose 650 MG; Start 08/18/16 at 11:00; Stop 08/19/16 at 13:00 Cyclophosphamide 1 gm/ Cyclophosphamide 400 mg/Sodium Chloride 250 ml @ 250 mls /hr DAILY@15 IV Last administered on 08/18/16 18:13; Admin Dose 250 MLS/HR; Start 08/18/16 at 15:00; Stop 08/19/16 at 15:59 Vincristine Sulfate/Sodium Chloride (Oncovin/NS) 100 ml @ 100 mls/hr Q15D IV Last administered on 08/18/16 21:02; Admin Dose 100 MLS/HR; Start 08/18/16 at 16:00; Stop 09/02/16 at 16:59 Diphenhydramine HCl (Benadryl) 25 mg Q4 PRN IV ALLERGIC REACTION; Start at 13:30 Meperidine HCl (Demerol) 25 mg Q2 PRN IV PAIN; Start 08/18/16 at 13:30 Dexamethasone (Decadron) 10 mg Q4 PRN IV ALLERGIC REACTION; Start 08/18/16 at 13:30 Metoclopramide HCl (Reglan) 5 mg Q6H PRN IV NAUSEA; Start 08/18/16 at 13:30 Famotidine 20 mg 20 mg DAILY PO Last administered on 08/19/16 09:10; Admin Dose 20 MG; Start 08/19/16 at 09:00 Ceftriaxone Sodium (Rocephin) 50 ml @ 100 mls/hr Q24H IVPB Last administered on 08/18/16 14:25; Admin Dose 100 MLS/HR; Start 08/18/16 at 13:30; Stop at 13:29 Lorazepam 0.5 mg 0.5 mg Q6H PRN PO ANXIETY Last administered on 08/19/16 01:11 ; Admin Dose 0.5 MG; Start 08/18/16 at 13:30 Ondansetron HCl/ Sodium Chloride (Zofran Inj/NS) 54 ml @ 216 mls/hr Q6H PRN IV NAUSEA AND/OR VOMITING Last administered on 08/19/16 09:31; Admin Dose 216 MLS/HR; Start 08/19/16 at 09:00 JANETH RAMOS MD Aug 19, 2016 11:06
--- NOTE | 2016-08-19 11:59 | CONS ---
Date/Time of Note Date/Time of Note DATE: 08/19/16 TIME: 11:56 Assessment/Plan Assessment/Plan Chief Complaint/Hosp Course 56 yo female with massive neck mass causing tracheal compression and airway compromise s/p tracheostomy placement. 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 Pt was given cycle 1A and 1Bof R HyperCVAD but had only a partial response to therapy and severe side effects. We have thus changed her chemotherapy regimen. She is now s/p cycle 1B of R-IVACand is now being admitted for cycle 2A of R-Codox M. Most recent CT neck showed resolution of the mass. . Problems: Additional Assessment/Plan # Burkitt's lymphoma -proceed with cycle 2A R CODOX -M -Rituximab (Rituxan) as follows: Day 1 is 08/18 * Cycle 1: 375 mg/m2 (660mg) IV on Day 1 -Cyclophosphamide (Cytoxan) 800 mg/m2 ( 1415mg) IV once per day on days 1 & 2 -Vincristine (Oncovin) 1.0 mg (dose reduced for neuropathy) days 1 & 15 . -Doxorubicin (Adriamycin) 50 mg/m2 (88mg) IV once on day 1 . dose reduced by 50 % for elevated transaminases -Methotrexate (MTX) 3100mg/m2 (175mg) IV over 1 hour then 900mg/m2 (1590mg) over 23 hours on day 15. will start IVF with 2 amps Na HCo3 prior to MTX infusion since Urine Ph > 7.0. Leucovorin 25mg IV q 4 hours will start 36 hours after MTX starts until MTX level is < 0.05. # Supportive Care and prophylactic meds -Started Acyclovir 400mg BID -fluconazole 100mg q day -Neupogen 300mcg q day -Zofran ordered prn nausea #Expected Pancytopenia -keep Hg> 8 and platelets > 10 # Elevated AST and ALT, likely related to methotrexate. ultrasound shows fatty liver -continue to monitor LFTs. 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 all steroids should be discontinued for now unless they are part of the chemotherapy regimen -continue to work with physical therapy. # Respiratory compromise -trach has been removed approximately 40 min were spent at patient's bedside and in coordination of her care Consultation Date/Type/Reason Admit Date/Time Aug 18, 2016 at 11:11 Initial Consult Date 08/18/16 Type of Consultation: Hematology Reason for Consultation Burkitt's lymphoma Referring Provider: ABISAI BRANCH 24 HR Interval Summary Free Text/Dictation tolerating chemotherapy well Exam/Review of Systems Vital Signs Vitals Vital Signs Date Time Temp Pulse Resp B/P Pulse Ox O2 Delivery O2 Flow Rate FiO2 08/19/16 08:07 97.7 96 16 124/64 98 08/19/16 00:05 Room Air Intake and Output 08/18/16 08/18/16 08/19/16 14:59 22:59 06:59 Intake Total 100 ml 1550 ml 1191 ml Output Total 300 ml 750 ml Balance 100 ml 1250 ml 441 ml Exam Constitutional: alert, oriented Head: atraumatic, normocephalic Eyes: nl conjunctiva ENMT: nl external ears & nose Neck: non-tender, supple Respiratory: clear to auscultation Cardiovascular: nl pulses, regular rate and rhythm Gastrointestinal: soft Musculoskeletal: nl extremities to inspection Results Result Diagram: 08/19/16 0435 08/19/16 0435 Results 24 hrs Laboratory Tests Test 08/18/16 12:17 08/18/16 16:20 08/19/16 04:35 Alanine Aminotransferase (ALT/SGPT) 154 H 175 H Albumin 3.2 L 2.7 L Albumin/Globulin Ratio 1.60 1.42 Alkaline Phosphatase 211 H 198 H Anion Gap 12 13 Aspartate Amino Transf (AST/SGOT) 171 H 202 H Basophils # 0.1 0.0 Basophils % 0.7 0.4 Blood Urea Nitrogen 5 L 7 Calcium Level 8.9 8.3 L Carbon Dioxide Level 29 27 Chloride Level 104 107 Creatinine 0.43 L 0.43 L Direct Bilirubin 0.00 0.00 Eosinophils # 0.2 0.0 Eosinophils % 1.7 0.2 Globulin 2.00 1.90 Glucose Level 90 104 Hematocrit 36.3 L 31.1 L Hemoglobin 11.6 L 9.8 L Indirect Bilirubin 0.7 0.3 Lymphocytes # 6.4 H 3.7 H Lymphocytes % 53.1 H 34.8 Magnesium Level 1.5 L 1.4 L Mean Corpuscular Hemoglobin 29.6 29.3 Mean Corpuscular Hemoglobin Concent 32.0 31.5 L Mean Corpuscular Volume 92.6 93.1 Mean Platelet Volume 9.7 10.4 Monocytes # 0.9 0.9 Monocytes % 7.4 8.6 Neutrophils # 3.8 5.2 Neutrophils % 31.9 L 49.7 Nucleated Red Blood Cells # 0.0 0.0 Nucleated Red Blood Cells % 0.2 H 0.0 Phosphorus Level 4.3 Platelet Count 172 133 #L Potassium Level 4.0 3.6 Red Blood Count 3.92 L 3.34 L Red Cell Distribution Width 17.2 H 17.3 H Sodium Level 141 143 Total Bilirubin 0.7 0.3 Total Protein 5.2 L 4.6 L White Blood Count 12.0 #H 10.5 Hepatitis B Core Total Antibody NEGATIVE Hepatitis B Surface Antibody POSITIVE H Hepatitis B Surface Antigen NEGATIVE Hepatitis C Antibody NEGATIVE Lactate Dehydrogenase 1164 H Medications Medications Current Medications Sodium Chloride 1,000 ml @ 70 mls/hr [id number] IV Last administered on 03:37; Admin Dose 70 MLS/HR; Start 08/18/16 at 11:00 Ondansetron HCl/ Dexamethasone/ Diphenhydramine HCl/Sodium Chloride (Zofran Inj / Decadron/Benadryl/ NS) 50 ml @ 100 mls/hr DAILY IV Last administered on 08/18 12:12; Admin Dose 100 MLS/HR; Start 08/18/16 at 11:00; Stop 08/19/16 at 13 :00 Acetaminophen 650 mg 650 mg DAILY PO Last administered on 08/18/16 12:29; Admin Dose 650 MG; Start 08/18/16 at 11:00; Stop 08/19/16 at 13:00 Cyclophosphamide 1 gm/ Cyclophosphamide 400 mg/Sodium Chloride 250 ml @ 250 mls /hr DAILY@15 IV Last administered on 08/18/16 18:13; Admin Dose 250 MLS/HR; Start 08/18/16 at 15:00; Stop 08/19/16 at 15:59 Vincristine Sulfate/Sodium Chloride (Oncovin/NS) 100 ml @ 100 mls/hr Q15D IV Last administered on 08/18/16 21:02; Admin Dose 100 MLS/HR; Start 08/18/16 at 16:00; Stop 09/02/16 at 16:59 Diphenhydramine HCl (Benadryl) 25 mg Q4 PRN IV ALLERGIC REACTION; Start at 13:30 Meperidine HCl (Demerol) 25 mg Q2 PRN IV PAIN; Start 08/18/16 at 13:30 Dexamethasone (Decadron) 10 mg Q4 PRN IV ALLERGIC REACTION; Start 08/18/16 at 13:30 Metoclopramide HCl (Reglan) 5 mg Q6H PRN IV NAUSEA; Start 08/18/16 at 13:30 Famotidine 20 mg 20 mg DAILY PO Last administered on 08/19/16 09:10; Admin Dose 20 MG; Start 08/19/16 at 09:00 Ceftriaxone Sodium (Rocephin) 50 ml @ 100 mls/hr Q24H IVPB Last administered on 08/18/16 14:25; Admin Dose 100 MLS/HR; Start 08/18/16 at 13:30; Stop at 13:29 Lorazepam 0.5 mg 0.5 mg Q6H PRN PO ANXIETY Last administered on 08/19/16 01:11 ; Admin Dose 0.5 MG; Start 08/18/16 at 13:30 Ondansetron HCl/ Sodium Chloride (Zofran Inj/NS) 54 ml @ 216 mls/hr Q6H PRN IV NAUSEA AND/OR VOMITING Last administered on 08/19/16 09:31; Admin Dose 216 MLS/HR; Start 08/19/16 at 09:00 CHANDRIKA MERLOS M.D. Aug 19, 2016 11:59
[2016-08-19] MEDS: CALCIUM CARBONATE 500 MG CHEW TAB PO PRN (12:17)
[2016-08-19] MEDS: CEFTRIAXONE 1 GM/50 ML (PMX) 50 ML IVPB SCH (13:29)
[2016-08-19] MEDS ORDERED: AL HYDROX/MG HYDROX/SIMETH 30 ML CUP PO PRN (14:30)
[2016-08-19] MEDS: ACETAMINOPHEN 325 MG TAB PO SCH (17:36)
[2016-08-19] MEDS: ONDANSETRON INJ 16 MG, DEXAMETHASONE 4 MG/ML 10 MG, DIPHENHYDRAMINE 25 MG in SOD CHLORI... IV SCH (17:36)
[2016-08-19 18:35] VITALS: BP 123/69; PULSE 94; RESP 16
[2016-08-19] MEDS: CYCLOPHOSPHAMIDE IV SCH (18:39)
[2016-08-19] MEDS: SOD CHLORIDE 0.9% IV SCH (18:39)
[2016-08-19 19:38] VITALS: BP 117/68; PULSE 68; RESP 18
[2016-08-19 19:49] VITALS: BP 133/71; RESP 18
[2016-08-19 20:12] VITALS: BP 115/65; PULSE 68; RESP 18
[2016-08-20] MEDS: METOCLOPRAMIDE 10 MG INJ IV PRN ×2 (00:13→08:58)
[2016-08-20 07:54] VITALS: BP 156/82; RESP 18
[2016-08-20] MEDS: MEPERIDINE 25 MG INJ IV PRN ×2 (08:58→16:47)
[2016-08-20] MEDS: FAMOTIDINE 20 MG TAB PO SCH (08:58)
[2016-08-20] MEDS: SOD CHLORIDE 0.9% 1,000 ML IV SCH ×2 (09:32→21:24)
--- NOTE | 2016-08-20 11:21 | PN ---
Date/Time of Note Date/Time of Note DATE: 08/20/16 TIME: 11:20 Assessment/Plan VTE Prophylaxis VTE Prophylaxis Intervention: SCD's Lines/Catheters IV Catheter Type (from Nrsg): PICC Line Central line still needed: Yes (IV chemoterha) Assessment/Plan Assessment/Plan 1. History of Burkitt lymphoma. Continue chemotherapy as per oncology. 2. History of renal insufficiency. Follow up renal panel. Continue IV fluids. 3. History of transaminitis. Stable, follow up liver function tests. 4. Essential hypertension, well controlled. 5. Michelle thyroiditis. The patient has been followed up with research analyst as outpatient. 6. Intractable nausea. Continue Reglan Zofran and Tigan 7. For deep venous thrombosis prophylaxis on sequential compression devices. 8. For gastrointestinal prophylaxis, place the patient on Pepcid. We will continue to monitor patient closely. Further recommendations, management and treatment as per clinical course. Subjective 24 Hr Interval Summary Free Text/Dictation LDH 1164,Hb dropped slightly, afebrile, on chemotherapy Exam/Review of Systems Vital Signs Vitals Vital Signs Date Time Temp Pulse Resp B/P Pulse Ox O2 Delivery O2 Flow Rate FiO2 08/20/16 07:54 97.9 81 18 156/82 99 08/19/16 20:12 Room Air Intake and Output 08/19/16 08/19/16 08/20/16 15:00 23:00 07:00 Intake Total 104 ml 1160 ml 1775 ml Output Total 2200 ml 1100 ml Balance 104 ml -1040 ml 675 ml Exam 1. History of Burkitt lymphoma. Continue chemotherapy as per oncology. 2. History of renal insufficiency. Follow up renal panel. Continue IV fluids. 3. History of transaminitis. Stable, follow up liver function tests. 4. Essential hypertension, well controlled. 5. Michelle thyroiditis. The patient has been followed up with research analyst as outpatient. 6. Intractable nausea. Continue Reglan Zofran and Tigan 7. For deep venous thrombosis prophylaxis on sequential compression devices. 8. For gastrointestinal prophylaxis, place the patient on Pepcid. We will continue to monitor patient closely. Further recommendations, management and treatment as per clinical course. Results Result Diagram: 08/19/16 0435 08/19/16 0435 Medications Medications Current Medications Sodium Chloride 1,000 ml @ 70 mls/hr [id number] IV Last administered on 3/1/17at 09:32; Admin Dose 70 MLS/HR; Start 08/18/16 at 11:00 Vincristine Sulfate/Sodium Chloride (Oncovin/NS) 100 ml @ 100 mls/hr Q15D IV Last administered on 08/18/16 21:02; Admin Dose 100 MLS/HR; Start 08/18/16 at 16:00; Stop 09/02/16 at 16:59 Diphenhydramine HCl (Benadryl) 25 mg Q4 PRN IV ALLERGIC REACTION; Start at 13:30 Meperidine HCl (Demerol) 25 mg Q2 PRN IV PAIN Last administered on 08/20/16 08: 58; Admin Dose 25 MG; Start 08/18/16 at 13:30 Dexamethasone (Decadron) 10 mg Q4 PRN IV ALLERGIC REACTION; Start 08/18/16 at 13:30 Metoclopramide HCl (Reglan) 5 mg Q6H PRN IV NAUSEA Last administered on 08:58; Admin Dose 5 MG; Start 08/18/16 at 13:30 Famotidine 20 mg 20 mg DAILY PO Last administered on 08/20/16 08:58; Admin Dose 20 MG; Start 08/19/16 at 09:00 Ceftriaxone Sodium (Rocephin) 50 ml @ 100 mls/hr Q24H IVPB Last administered on 08/19/16 13:29; Admin Dose 100 MLS/HR; Start 08/18/16 at 13:30; Stop at 13:29 Lorazepam 0.5 mg 0.5 mg Q6H PRN PO ANXIETY Last administered on 08/19/16 01:11 ; Admin Dose 0.5 MG; Start 08/18/16 at 13:30 Ondansetron HCl/ Sodium Chloride (Zofran Inj/NS) 54 ml @ 216 mls/hr Q6H PRN IV NAUSEA AND/OR VOMITING Last administered on 08/19/16 09:31; Admin Dose 216 MLS/HR; Start 08/19/16 at 09:00 Al Hydrox/Mg Hydrox/ Simethicone 30 ml 30 ml Q6H PRN PO GASTROINTESTINAL UPSET ; Start 08/19/16 at 14:30 Ondansetron HCl/ Dextrose (Zofran Inj/D5W) 54 ml @ 108 mls/hr Q6H PRN IV NAUSEA AND/OR VOMITING; Start 08/20/16 at 09:30 Metoclopramide HCl (Reglan) 20 mg Q6H PRN IV NAUSEA; Start 08/20/16 at 09:30 TELLY SOLANO MD Aug 20, 2016 11:20
--- NOTE | 2016-08-20 12:45 | CONS ---
Date/Time of Note Date/Time of Note DATE: 08/20/16 TIME: 12:43 Assessment/Plan Assessment/Plan Chief Complaint/Hosp Course 56 yo female with massive neck mass causing tracheal compression and airway compromise s/p tracheostomy placement. 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 Pt was given cycle 1A and 1Bof R HyperCVAD but had only a partial response to therapy and severe side effects. We have thus changed her chemotherapy regimen. She is now s/p cycle 1B of R-IVAC and is now being admitted for cycle 2A of R-Codox M. Most recent CT neck showed resolution of the mass. . Problems: Additional Assessment/Plan # Burkitt's lymphoma -proceed with cycle 2A R CODOX -M -Rituximab (Rituxan) as follows: Day 1 is 08/18 * Cycle 1: 375 mg/m2 (660mg) IV on Day 1 -Cyclophosphamide (Cytoxan) 800 mg/m2 ( 1415mg) IV once per day on days 1 & 2 -Vincristine (Oncovin) 1.0 mg (dose reduced for neuropathy) days 1 & 15 . -Doxorubicin (Adriamycin) 50 mg/m2 (88mg) IV once on day 1 . dose reduced by 50 % for elevated transaminases -Methotrexate (MTX) 3100mg/m2 (175mg) IV over 1 hour then 900mg/m2 (1590mg) over 23 hours on day 15. will start IVF with 2 amps Na HCo3 prior to MTX infusion since Urine Ph > 7.0. Leucovorin 25mg IV q 4 hours will start 36 hours after MTX starts until MTX level is < 0.05. # Supportive Care and prophylactic meds -Started Acyclovir 400mg BID -fluconazole 100mg q day -Neupogen 300mcg q day -Zofran 8mg IV q 6 + Reglan 20mg IV q 6 ordered prn nausea #Expected Pancytopenia -keep Hg> 8 and platelets > 10 # Elevated AST and ALT, likely related to methotrexate. ultrasound shows fatty liver -continue to monitor LFTs. 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 all steroids should be discontinued for now unless they are part of the chemotherapy regimen -continue to work with physical therapy. # Respiratory compromise -trach has been removed approximately 40 min were spent at patient's bedside and in coordination of her care Consultation Date/Type/Reason Admit Date/Time Aug 18, 2016 at 11:11 Initial Consult Date 08/18/16 Type of Consultation: Hematology Reason for Consultation Burkitt's lymphoma Referring Provider: ABISAI BRANCH 24 HR Interval Summary Free Text/Dictation pt completed her chemotherapy yesterday. c/o extreme nausea and abdominal discomfort Exam/Review of Systems Vital Signs Vitals Vital Signs Date Time Temp Pulse Resp B/P Pulse Ox O2 Delivery O2 Flow Rate FiO2 08/20/16 07:54 97.9 81 18 156/82 99 08/19/16 20:12 Room Air Intake and Output 08/19/16 08/19/16 08/20/16 15:00 23:00 07:00 Intake Total 104 ml 1160 ml 1775 ml Output Total 2200 ml 1100 ml Balance 104 ml -1040 ml 675 ml Exam Constitutional: alert, distress, oriented Psych: anxiety, depression Head: normocephalic Eyes: nl conjunctiva ENMT: nl external ears & nose Neck: non-tender, supple Respiratory: clear to auscultation, normal air movement Cardiovascular: regular rate and rhythm Gastrointestinal: other (mild RUQ tenderness), soft Musculoskeletal: nl extremities to inspection, nl gait and stance Extremities: normal pulses Results Result Diagram: 08/19/16 0435 08/19/16 0435 Medications Medications Current Medications Sodium Chloride 1,000 ml @ 70 mls/hr [id number] IV Last administered on 08/20/16 09:32; Admin Dose 70 MLS/HR; Start 08/18/16 at 11:00 Vincristine Sulfate/Sodium Chloride (Oncovin/NS) 100 ml @ 100 mls/hr Q15D IV Last administered on 08/18/16 21:02; Admin Dose 100 MLS/HR; Start 08/18/16 at 16:00; Stop 09/02/16 at 16:59 Diphenhydramine HCl (Benadryl) 25 mg Q4 PRN IV ALLERGIC REACTION; Start at 13:30 Meperidine HCl (Demerol) 25 mg Q2 PRN IV PAIN Last administered on 08/20/16 08: 58; Admin Dose 25 MG; Start 08/18/16 at 13:30 Dexamethasone (Decadron) 10 mg Q4 PRN IV ALLERGIC REACTION; Start 08/18/16 at 13:30 Metoclopramide HCl (Reglan) 5 mg Q6H PRN IV NAUSEA Last administered on 08:58; Admin Dose 5 MG; Start 08/18/16 at 13:30 Famotidine 20 mg 20 mg DAILY PO Last administered on 08/20/16 08:58; Admin Dose 20 MG; Start 08/19/16 at 09:00 Ceftriaxone Sodium (Rocephin) 50 ml @ 100 mls/hr Q24H IVPB Last administered on 08/19/16 13:29; Admin Dose 100 MLS/HR; Start 08/18/16 at 13:30; Stop at 13:29 Lorazepam 0.5 mg 0.5 mg Q6H PRN PO ANXIETY Last administered on 08/19/16 01:11 ; Admin Dose 0.5 MG; Start 08/18/16 at 13:30 Ondansetron HCl/ Sodium Chloride (Zofran Inj/NS) 54 ml @ 216 mls/hr Q6H PRN IV NAUSEA AND/OR VOMITING Last administered on 08/19/16 09:31; Admin Dose 216 MLS/HR; Start 08/19/16 at 09:00 Al Hydrox/Mg Hydrox/ Simethicone 30 ml 30 ml Q6H PRN PO GASTROINTESTINAL UPSET ; Start 08/19/16 at 14:30 Ondansetron HCl/ Dextrose (Zofran Inj/D5W) 54 ml @ 108 mls/hr Q6H PRN IV NAUSEA AND/OR VOMITING; Start 08/20/16 at 09:30 Metoclopramide HCl (Reglan) 20 mg Q6H PRN IV NAUSEA; Start 08/20/16 at 09:30 CHANDRIKA MERLOS M.D. Aug 20, 2016 12:45
[2016-08-20] MEDS: CEFTRIAXONE 1 GM/50 ML (PMX) 50 ML IVPB SCH (13:06)
[2016-08-20] MEDS: ONDANSETRON INJ 8 MG in DEXTROSE 5% 50 ML IV PRN (16:52)
[2016-08-20 17:59] LABS: ADD SCAN DIFF NO
[2016-08-20 18:04] LABS: BASOPHILS % 0.2 % (0.0-2.0); EOSINOPHILS # 0.1 10^3/ul (0.0-0.5); EOSINOPHILS % 1.2 % (0.0-7.0); HEMATOCRIT 27.6 % (37.0-47.0); HEMOGLOBIN 8.9 g/dl (12.0-16.0); LYMPHOCYTES # 1.3 10^3/ul (0.8-2.9); LYMPHOCYTES % 22.3 % (15.0-51.0); MEAN CORPUSCULAR HEMOGLOBIN 30.2 pg (29.0-33.0); MEAN CORPUSCULAR HGB CONC 32.2 g/dl (32.0-37.0); MEAN CORPUSCULAR VOLUME 93.6 fl (82.0-101.0); MEAN PLATELET VOLUME 9.7 fl (7.4-10.4); MONOCYTE # 0.4 10^3/ul (0.3-0.9); MONOCYTES % 6.9 % (0.0-11.0); NEUTROPHIL # 3.7 10^3/ul (1.6-7.5); NEUTROPHILS % 65.9 % (39.0-77.0); PLATELET COUNT 120 10^3/UL (140-415); RED BLOOD COUNT 2.95 10^6/ul (4.20-5.40); RED CELL DISTRIBUTION WIDTH 17.5 % (11.5-14.5); WHITE BLOOD COUNT 5.7 10^3/ul (4.8-10.8)
[2016-08-20 18:11] LABS: ALBUMIN 2.5 g/dl (3.3-4.9)
[2016-08-20 18:12] LABS: POTASSIUM 3.2 mmol/L (3.5-5.1)
[2016-08-20 18:14] LABS: ALBUMIN/GLOBULIN RATIO 0.96; BILIRUBIN,INDIRECT 0.2 mg/dl (0-1.1); BILIRUBIN,TOTAL 0.2 mg/dl (0.2-1.3); CREATININE 0.38 mg/dl (0.44-1.00); TOTAL PROTEIN 5.1 g/dl (6.1-8.1)
[2016-08-20 18:15] LABS: CALCIUM 8.2 mg/dl (8.4-10.2)
[2016-08-20] MEDS: FILGRASTIM 480 MCG INJ SC SCH (18:51)
[2016-08-20 20:14] VITALS: BP 133/83; RESP 19
[2016-08-20] MEDS ORDERED: POTASSIUM CHLORIDE 20 MEQ in SOD CHLORIDE 0.9% 100 ML IVPB ONE (21:00)
[2016-08-21] MEDS: ACETAMINOPHEN 325 MG TAB PO PRN ×2 (04:45→20:53)
[2016-08-21 05:06] LABS: ADD SCAN DIFF NO
[2016-08-21 05:11] LABS: BASOPHILS % 0.1 % (0.0-2.0); EOSINOPHILS % 0.2 % (0.0-7.0); HEMATOCRIT 27.6 % (37.0-47.0); HEMOGLOBIN 8.9 g/dl (12.0-16.0); LYMPHOCYTES # 1.1 10^3/ul (0.8-2.9); LYMPHOCYTES % 6.9 % (15.0-51.0); MEAN CORPUSCULAR HGB CONC 32.2 g/dl (32.0-37.0); MEAN CORPUSCULAR VOLUME 92.9 fl (82.0-101.0); MEAN PLATELET VOLUME 9.8 fl (7.4-10.4); MONOCYTE # 0.4 10^3/ul (0.3-0.9); MONOCYTES % 2.2 % (0.0-11.0); NEUTROPHILS % 89.3 % (39.0-77.0); PLATELET COUNT 109 10^3/UL (140-415); RED BLOOD COUNT 2.97 10^6/ul (4.20-5.40); RED CELL DISTRIBUTION WIDTH 17.4 % (11.5-14.5); WHITE BLOOD COUNT 15.7 10^3/ul (4.8-10.8)
[2016-08-21 05:33] LABS: ALBUMIN 2.4 g/dl (3.3-4.9)
[2016-08-21 05:34] LABS: POTASSIUM 3.4 mmol/L (3.5-5.1)
[2016-08-21 05:36] LABS: BILIRUBIN,INDIRECT 0.4 mg/dl (0-1.1); BILIRUBIN,TOTAL 0.4 mg/dl (0.2-1.3); CREATININE 0.4 mg/dl (0.44-1.00); TOTAL PROTEIN 4.8 g/dl (6.1-8.1)
[2016-08-21 05:37] LABS: CALCIUM 8.2 mg/dl (8.4-10.2)
[2016-08-21 08:53] VITALS: BP 125/70; RESP 18
[2016-08-21] MEDS: FAMOTIDINE 20 MG TAB PO SCH (08:56)
[2016-08-21] MEDS ORDERED: POTASSIUM CHLORIDE (SR) 20 MEQ TAB PO STA (09:57)
--- NOTE | 2016-08-21 10:00 | PN ---
Date/Time of Note Date/Time of Note DATE: 08/21/16 TIME: 09:58 Assessment/Plan VTE Prophylaxis VTE Prophylaxis Intervention: SCD's Lines/Catheters IV Catheter Type (from Nrs): PICC Line Central line still needed: Yes Assessment/Plan Chief Complaint/Hosp Course ASSESSMENT AND PLAN: 1. History of Burkitt lymphoma. Continue chemotherapy as per oncology. 2. History of renal insufficiency. Stable, continue IV fluids. 3. History of transaminitis. Stable, likely secondary to chemotherapy, follow up liver function tests. 4. Essential hypertension, well controlled. 5. Michelle thyroiditis. 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 6. Intractable nausea. Continue Reglan Zofran and Tigan 7. For deep venous thrombosis prophylaxis on sequential compression devices. 8. For gastrointestinal prophylaxis, place the patient on Pepcid. We will continue to monitor patient closely. Further recommendations, management and treatment as per clinical course. Problems: Subjective 24 Hr Interval Summary Free Text/Dictation No acute changes Patient continues to complain of having some nausea without any vomiting Complains of having mild abdominal discomfort Exam/Review of Systems Vital Signs Vitals Vital Signs Date Time Temp Pulse Resp B/P Pulse Ox O2 Delivery O2 Flow Rate FiO2 08/21/16 08:53 98.9 93 18 125/70 96 08/19/16 20:12 Room Air Intake and Output 08/20/16 08/20/16 08/21/16 15:00 23:00 07:00 Intake Total 1890 ml 785 ml Output Total 1250 ml Balance 1890 ml -465 ml Exam General: The patient is well-developed, Not in acute distress. HEENT: Atraumatic, normocephalic. The pupils are equal and round . Neck: Supple with full range of motion. Chest: Normal expansion of the thorax during inspiration Lungs: Clear to auscultation bilaterally Heart: Normal S1-S2, Regular rhythm and rate. Abdomen: Soft , nontender, nondistended , bowel sounds are present. Extremities: Normal to inspection, no edema no cyanosis Neurologic: Normal mental status,The patient is awake, alert and oriented . Results Result Diagram: 08/21/16 0445 08/21/16 0445 Results 24 hrs Laboratory Tests Test 08/20/16 17:50 08/21/16 04:45 Alanine Aminotransferase (ALT/SGPT) 159 H 180 H Albumin 2.5 L 2.4 L Albumin/Globulin Ratio 0.96 1.00 Alkaline Phosphatase 157 H 173 H Anion Gap 13 12 Aspartate Amino Transf (AST/SGOT) 175 H 225 H Basophils # 0.0 0.0 Basophils % 0.2 0.1 Blood Urea Nitrogen 5 L 3 L Calcium Level 8.2 L 8.2 L Carbon Dioxide Level 26 27 Chloride Level 108 107 Creatinine 0.38 L 0.40 L Direct Bilirubin 0.00 0.00 Eosinophils # 0.1 0.0 Eosinophils % 1.2 0.2 Globulin 2.60 2.40 Glucose Level 95 90 Hematocrit 27.6 L 27.6 L Hemoglobin 8.9 L 8.9 L Indirect Bilirubin 0.2 0.4 Lactate Dehydrogenase 823 H 958 H Lymphocytes # 1.3 1.1 Lymphocytes % 22.3 6.9 L Mean Corpuscular Hemoglobin 30.2 30.0 Mean Corpuscular Hemoglobin Concent 32.2 32.2 Mean Corpuscular Volume 93.6 92.9 Mean Platelet Volume 9.7 9.8 Monocytes # 0.4 0.4 Monocytes % 6.9 2.2 Neutrophils # 3.7 14.0 H Neutrophils % 65.9 89.3 H Nucleated Red Blood Cells # 0.0 0.0 Nucleated Red Blood Cells % 0.0 0.0 Platelet Count 120 L 109 L Potassium Level 3.2 L 3.4 L Red Blood Count 2.95 L 2.97 L Red Cell Distribution Width 17.5 H 17.4 H Sodium Level 144 143 Total Bilirubin 0.2 0.4 Total Protein 5.1 L 4.8 L White Blood Count 5.7 # 15.7 #H Medications Medications Current Medications Sodium Chloride 1,000 ml @ 70 mls/hr [id number] IV Last administered on 08/20/16 21:24; Admin Dose 70 MLS/HR; Start 08/18/16 at 11:00 Vincristine Sulfate/Sodium Chloride (Oncovin/NS) 100 ml @ 100 mls/hr Q15D IV Last administered on 08/18/16 21:02; Admin Dose 100 MLS/HR; Start 08/18/16 at 16:00; Stop 09/02/16 at 16:59 Diphenhydramine HCl (Benadryl) 25 mg Q4 PRN IV ALLERGIC REACTION; Start at 13:30 Meperidine HCl (Demerol) 25 mg Q2 PRN IV PAIN Last administered on 08/20/16 16: 47; Admin Dose 25 MG; Start 08/18/16 at 13:30 Dexamethasone (Decadron) 10 mg Q4 PRN IV ALLERGIC REACTION; Start 08/18/16 at 13:30 Metoclopramide HCl (Reglan) 5 mg Q6H PRN IV NAUSEA Last administered on 08:58; Admin Dose 5 MG; Start 08/18/16 at 13:30 Famotidine 20 mg 20 mg DAILY PO Last administered on 08/21/16 08:56; Admin Dose 20 MG; Start 08/19/16 at 09:00 Ceftriaxone Sodium (Rocephin) 50 ml @ 100 mls/hr Q24H IVPB Last administered on 08/20/16 13:06; Admin Dose 100 MLS/HR; Start 08/18/16 at 13:30; Stop 08/25/16 at 13:29 Lorazepam 0.5 mg 0.5 mg Q6H PRN PO ANXIETY Last administered on 08/19/16 01:11 ; Admin Dose 0.5 MG; Start 08/18/16 at 13:30 Ondansetron HCl/ Sodium Chloride (Zofran Inj/NS) 54 ml @ 216 mls/hr Q6H PRN IV NAUSEA AND/OR VOMITING Last administered on 08/19/16 09:31; Admin Dose 216 MLS/HR; Start 08/19/16 at 09:00 Al Hydrox/Mg Hydrox/ Simethicone 30 ml 30 ml Q6H PRN PO GASTROINTESTINAL UPSET ; Start 08/19/16 at 14:30 Ondansetron HCl/ Dextrose (Zofran Inj/D5W) 54 ml @ 108 mls/hr Q6H PRN IV NAUSEA AND/OR VOMITING Last administered on 08/20/16 16:52; Admin Dose 108 MLS/ HR; Start 08/20/16 at 09:30 Metoclopramide HCl (Reglan) 20 mg Q6H PRN IV NAUSEA; Start 08/20/16 at 09:30 Filgrastim (Neupogen) 480 mcg DAILY@17 SC Last administered on 08/20/16 18:51; Admin Dose 480 MCG; Start 08/20/16 at 17:00; Stop 08/24/16 at 17:01 Filgrastim (Neupogen) 480 mcg DAILY@17 SC ; Start 09/01/16 at 17:00; Stop at 17:01 Acetaminophen (Tylenol Tab) 650 mg Q6H PRN PO PAIN AND OR ELEVATED TEMP Last administered on 08/21/16t 04:45; Admin Dose 650 MG; Start 08/20/16 at 23:30 JANETH RAMOS MD Aug 21, 2016 10:00
[2016-08-21] MEDS: SOD CHLORIDE 0.9% 1,000 ML IV SCH ×2 (10:30→14:09)
[2016-08-21] MEDS ORDERED: traMADol 50 MG TAB PO PRN (10:30)
[2016-08-21] MEDS ORDERED: POTASSIUM CHLORIDE 20 MEQ POWDER FOR ORAL SOLN PO STA (10:54)
--- NOTE | 2016-08-21 12:37 | CONS ---
Date/Time of Note Date/Time of Note DATE: 08/21/16 TIME: 12:35 Assessment/Plan Assessment/Plan Chief Complaint/Hosp Course 56 yo female with massive neck mass causing tracheal compression and airway compromise s/p tracheostomy placement. 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 Pt was given cycle 1A and 1Bof R HyperCVAD but had only a partial response to therapy and severe side effects. We have thus changed her chemotherapy regimen. She is now s/p cycle 1B of R-IVAC and is now being admitted for cycle 2A of R-Codox M. Most recent CT neck showed resolution of the mass. . Problems: Additional Assessment/Plan # Burkitt's lymphoma -proceed with cycle 2A R CODOX -M -Rituximab (Rituxan) as follows: Day 1 is 08/18 * Cycle 1: 375 mg/m2 (660mg) IV on Day 1 -Cyclophosphamide (Cytoxan) 800 mg/m2 ( 1415mg) IV once per day on days 1 & 2 -Vincristine (Oncovin) 1.0 mg (dose reduced for neuropathy) days 1 & 15 . -Doxorubicin (Adriamycin) 50 mg/m2 (88mg) IV once on day 1 . dose reduced by 50 % for elevated transaminases -Methotrexate (MTX) 3100mg/m2 (175mg) IV over 1 hour then 900mg/m2 (1590mg) over 23 hours on day 15. will start IVF with 2 amps Na HCo3 prior to MTX infusion since Urine Ph > 7.0. Leucovorin 25mg IV q 4 hours will start 36 hours after MTX starts until MTX level is < 0.05. # Supportive Care and prophylactic meds -Started Acyclovir 400mg BID -fluconazole 100mg q day -Neupogen 300mcg q day -Zofran 8mg IV q 6 + Reglan 20mg IV q 6 ordered prn nausea #Expected Pancytopenia -keep Hg> 8 and platelets > 10 # Elevated AST and ALT, likely related to methotrexate. ultrasound shows fatty liver -continue to monitor LFTs, continue to increase.. 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 all steroids should be discontinued for now unless they are part of the chemotherapy regimen -continue to work with physical therapy. # Respiratory compromise -trach has been removed approximately 40 min were spent at patient's bedside and in coordination of her care Consultation Date/Type/Reason Admit Date/Time Aug 18, 2016 at 11:11 Initial Consult Date 08/18/16 Type of Consultation: Hematology Reason for Consultation Burkitt's Lymphoma Referring Provider: ABISAI BRANCH 24 HR Interval Summary Free Text/Dictation pt was started on Neupogen yesterday. Had extreme nausea and abdominal pain yesterday which she says has resolved Exam/Review of Systems Vital Signs Vitals Vital Signs Date Time Temp Pulse Resp B/P Pulse Ox O2 Delivery O2 Flow Rate FiO2 08/21/16 08:53 98.9 93 18 125/70 96 08/19/16 20:12 Room Air Intake and Output 08/20/16 08/20/16 08/21/16 15:00 23:00 07:00 Intake Total 1890 ml 785 ml Output Total 1250 ml Balance 1890 ml -465 ml Exam Constitutional: alert, distress Psych: nl mood/affect, no complaints Head: normocephalic Eyes: nl conjunctiva ENMT: nl external ears & nose Neck: non-tender, supple Respiratory: clear to auscultation, normal air movement Cardiovascular: regular rate and rhythm Gastrointestinal: soft Musculoskeletal: nl extremities to inspection, nl gait and stance Results Result Diagram: 08/21/165 08/21/165 Results 24 hrs Laboratory Tests Test 08/20/16 17:50 08/21/16 04:45 Alanine Aminotransferase (ALT/SGPT) 159 H 180 H Albumin 2.5 L 2.4 L Albumin/Globulin Ratio 0.96 1.00 Alkaline Phosphatase 157 H 173 H Anion Gap 13 12 Aspartate Amino Transf (AST/SGOT) 175 H 225 H Basophils # 0.0 0.0 Basophils % 0.2 0.1 Blood Urea Nitrogen 5 L 3 L Calcium Level 8.2 L 8.2 L Carbon Dioxide Level 26 27 Chloride Level 108 107 Creatinine 0.38 L 0.40 L Direct Bilirubin 0.00 0.00 Eosinophils # 0.1 0.0 Eosinophils % 1.2 0.2 Globulin 2.60 2.40 Glucose Level 95 90 Hematocrit 27.6 L 27.6 L Hemoglobin 8.9 L 8.9 L Indirect Bilirubin 0.2 0.4 Lactate Dehydrogenase 823 H 958 H Lymphocytes # 1.3 1.1 Lymphocytes % 22.3 6.9 L Mean Corpuscular Hemoglobin 30.2 30.0 Mean Corpuscular Hemoglobin Concent 32.2 32.2 Mean Corpuscular Volume 93.6 92.9 Mean Platelet Volume 9.7 9.8 Monocytes # 0.4 0.4 Monocytes % 6.9 2.2 Neutrophils # 3.7 14.0 H Neutrophils % 65.9 89.3 H Nucleated Red Blood Cells # 0.0 0.0 Nucleated Red Blood Cells % 0.0 0.0 Platelet Count 120 L 109 L Potassium Level 3.2 L 3.4 L Red Blood Count 2.95 L 2.97 L Red Cell Distribution Width 17.5 H 17.4 H Sodium Level 144 143 Total Bilirubin 0.2 0.4 Total Protein 5.1 L 4.8 L White Blood Count 5.7 # 15.7 #H Differential Comment AUTO w/SCAN Medications Medications Current Medications Sodium Chloride 1,000 ml @ 70 mls/hr [id number] IV Last administered on 08/20/16 21:24; Admin Dose 70 MLS/HR; Start 08/18/16 at 11:00 Vincristine Sulfate/Sodium Chloride (Oncovin/NS) 100 ml @ 100 mls/hr Q15D IV Last administered on 08/18/16 21:02; Admin Dose 100 MLS/HR; Start 08/18/16 at 16:00; Stop 09/02/16 at 16:59 Diphenhydramine HCl (Benadryl) 25 mg Q4 PRN IV ALLERGIC REACTION; Start at 13:30 Meperidine HCl (Demerol) 25 mg Q2 PRN IV PAIN Last administered on 08/20/16 16: 47; Admin Dose 25 MG; Start 08/18/16 at 13:30 Dexamethasone (Decadron) 10 mg Q4 PRN IV ALLERGIC REACTION; Start 08/18/16 at 13:30 Metoclopramide HCl (Reglan) 5 mg Q6H PRN IV NAUSEA Last administered on 08:58; Admin Dose 5 MG; Start 08/18/16 at 13:30 Famotidine 20 mg 20 mg DAILY PO Last administered on 08/21/16 08:56; Admin Dose 20 MG; Start 08/19/16 at 09:00 Ceftriaxone Sodium (Rocephin) 50 ml @ 100 mls/hr Q24H IVPB Last administered on 08/20/16 13:06; Admin Dose 100 MLS/HR; Start 08/18/16 at 13:30; Stop 08/25/16 at 13:29 Lorazepam 0.5 mg 0.5 mg Q6H PRN PO ANXIETY Last administered on 08/19/16 01:11 ; Admin Dose 0.5 MG; Start 08/18/16 at 13:30 Ondansetron HCl/ Sodium Chloride (Zofran Inj/NS) 54 ml @ 216 mls/hr Q6H PRN IV NAUSEA AND/OR VOMITING Last administered on 08/19/16 09:31; Admin Dose 216 MLS/HR; Start 08/19/16 at 09:00 Al Hydrox/Mg Hydrox/ Simethicone 30 ml 30 ml Q6H PRN PO GASTROINTESTINAL UPSET ; Start 08/19/16 at 14:30 Ondansetron HCl/ Dextrose (Zofran Inj/D5W) 54 ml @ 108 mls/hr Q6H PRN IV NAUSEA AND/OR VOMITING Last administered on 08/20/16 16:52; Admin Dose 108 MLS/ HR; Start 08/20/16 at 09:30 Metoclopramide HCl (Reglan) 20 mg Q6H PRN IV NAUSEA; Start 08/20/16 at 09:30 Filgrastim (Neupogen) 480 mcg DAILY@17 SC Last administered on 08/20/16 18:51; Admin Dose 480 MCG; Start 08/20/16 at 17:00; Stop 08/24/16 at 17:01 Filgrastim (Neupogen) 480 mcg DAILY@17 SC ; Start 09/01/16 at 17:00; Stop at 17:01 Acetaminophen (Tylenol Tab) 650 mg Q6H PRN PO PAIN AND OR ELEVATED TEMP Last administered on 08/21/16 04:45; Admin Dose 650 MG; Start 08/20/16 at 23:30 Morphine Sulfate (morphine) 2 mg Q4H PRN IV SEVERE PAIN LEVEL 7-10; Start at 11:00 CHANDRIKA MERLOS M.D. Aug 21, 2016 12:37
[2016-08-21] MEDS: morphine 2 MG INJ IV PRN (14:01)
[2016-08-21] MEDS: METOCLOPRAMIDE 10 MG INJ IV PRN ×2 (14:02→20:54)
[2016-08-21] MEDS: CEFTRIAXONE 1 GM/50 ML (PMX) 50 ML IVPB SCH (14:09)
[2016-08-21] MEDS: ONDANSETRON INJ 8 MG in DEXTROSE 5% 50 ML IV PRN (17:24)
[2016-08-21] MEDS: FILGRASTIM 480 MCG INJ SC SCH (17:25)
[2016-08-21 20:28] VITALS: BP 136/65; RESP 20
[2016-08-22 04:51] LABS: ADD SCAN DIFF NO
[2016-08-22 04:57] LABS: ABNORMAL IP MESSAGE 1; BASOPHILS % 0.1 % (0.0-2.0); EOSINOPHILS # 0.1 10^3/ul (0.0-0.5); EOSINOPHILS % 0.3 % (0.0-7.0); HEMATOCRIT 26.7 % (37.0-47.0); HEMOGLOBIN 8.4 g/dl (12.0-16.0); LYMPHOCYTES # 0.9 10^3/ul (0.8-2.9); LYMPHOCYTES % 4.5 % (15.0-51.0); MEAN CORPUSCULAR HEMOGLOBIN 29.6 pg (29.0-33.0); MEAN CORPUSCULAR HGB CONC 31.5 g/dl (32.0-37.0); MEAN PLATELET VOLUME 9.7 fl (7.4-10.4); MONOCYTE # 0.2 10^3/ul (0.3-0.9); MONOCYTES % 0.9 % (0.0-11.0); NEUTROPHIL # 17.4 10^3/ul (1.6-7.5); NEUTROPHILS % 86.5 % (39.0-77.0); PLATELET COUNT 81 10^3/UL (140-415); RED BLOOD COUNT 2.84 10^6/ul (4.20-5.40); RED CELL DISTRIBUTION WIDTH 17.2 % (11.5-14.5); WHITE BLOOD COUNT 20.1 10^3/ul (4.8-10.8)
[2016-08-22 05:12] LABS: ALBUMIN 2.3 g/dl (3.3-4.9); POTASSIUM 3.4 mmol/L (3.5-5.1)
[2016-08-22 05:14] LABS: BILIRUBIN,INDIRECT 0.6 mg/dl (0-1.1); BILIRUBIN,TOTAL 0.6 mg/dl (0.2-1.3); CREATININE 0.33 mg/dl (0.44-1.00)
[2016-08-22 05:15] LABS: ALBUMIN/GLOBULIN RATIO 0.88; CALCIUM 8.3 mg/dl (8.4-10.2); TOTAL PROTEIN 4.9 g/dl (6.1-8.1)
[2016-08-22 08:28] VITALS: BP 131/69; RESP 20
[2016-08-22] MEDS: ACETAMINOPHEN 325 MG TAB PO PRN ×2 (08:45→14:44)
[2016-08-22] MEDS: SOD CHLORIDE 0.9% 1,000 ML IV SCH (08:45)
[2016-08-22] MEDS: FAMOTIDINE 20 MG TAB PO SCH (08:45)
[2016-08-22] MEDS: METOCLOPRAMIDE 10 MG INJ IV PRN ×2 (08:45→14:44)
--- NOTE | 2016-08-22 12:07 | CONS ---
Date/Time of Note Date/Time of Note DATE: 08/22/16 TIME: 12:04 Assessment/Plan Assessment/Plan Chief Complaint/Hosp Course 56 yo female with massive neck mass causing tracheal compression and airway compromise s/p tracheostomy placement. 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 Pt was given cycle 1A and 1Bof R HyperCVAD but had only a partial response to therapy and severe side effects. We have thus changed her chemotherapy regimen. She is now s/p cycle 1B of R-IVAC and is now being admitted for cycle 2A of R-Codox M. Most recent CT neck showed resolution of the mass. . Problems: Additional Assessment/Plan # Burkitt's lymphoma -proceed with cycle 2A R CODOX -M -Rituximab (Rituxan) as follows: Day 1 is 08/18 * Cycle 1: 375 mg/m2 (660mg) IV on Day 1 -Cyclophosphamide (Cytoxan) 800 mg/m2 ( 1415mg) IV once per day on days 1 & 2 -Vincristine (Oncovin) 1.0 mg (dose reduced for neuropathy) days 1 & 15 . -Doxorubicin (Adriamycin) 50 mg/m2 (88mg) IV once on day 1 . dose reduced by 50 % for elevated transaminases -Methotrexate (MTX) 3100mg/m2 (175mg) IV over 1 hour then 900mg/m2 (1590mg) over 23 hours on day 15. will start IVF with 2 amps Na HCo3 prior to MTX infusion since Urine Ph > 7.0. Leucovorin 25mg IV q 4 hours will start 36 hours after MTX starts until MTX level is < 0.05. # Supportive Care and prophylactic meds -Acyclovir 400mg BID on hold for increased LFTS -fluconazole 100mg q day on hold for increased LFTS -Neupogen 300mcg q day. need to continue for 5 days total -Zofran 8mg IV q 6 + Reglan 20mg IV q 6 ordered prn nausea #Expected Pancytopenia -keep Hg> 8 and platelets > 10 # Elevated AST and ALT, likely related to methotrexate. ultrasound shows fatty liver -continue to monitor LFTs, continue to increase.. 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 all steroids should be discontinued for now unless they are part of the chemotherapy regimen -continue to work with physical therapy. # Respiratory compromise -trach has been removed approximately 40 min were spent at patient's bedside and in coordination of her care Consultation Date/Type/Reason Admit Date/Time Aug 18, 2016 at 11:11 Initial Consult Date 08/18/16 Type of Consultation: Hematology Reason for Consultation Burkitt's lymphoma Referring Provider: ABISAI BRANCH 24 HR Interval Summary Free Text/Dictation c/o nausea and headache. nausea controlled with reglan and zofran Exam/Review of Systems Vital Signs Vitals Vital Signs Date Time Temp Pulse Resp B/P Pulse Ox O2 Delivery O2 Flow Rate FiO2 08/22/16 08:28 98.1 105 20 131/69 93 08/19/16 20:12 Room Air Intake and Output 08/21/16 08/21/16 08/22/16 15:00 23:00 07:00 Intake Total 610 ml 874 ml 200 ml Output Total 1000 ml 1150 ml Balance 610 ml -126 ml -950 ml Exam Constitutional: alert, oriented Psych: nl mood/affect, no complaints Head: atraumatic, normocephalic Eyes: nl conjunctiva ENMT: nl external ears & nose Neck: masses (resolved), non-tender, supple Respiratory: clear to auscultation, normal air movement Cardiovascular: nl pulses, regular rate and rhythm Gastrointestinal: soft Musculoskeletal: nl extremities to inspection, nl gait and stance Results Result Diagram: 08/22/16 0415 08/22/16 0415 Results 24 hrs Laboratory Tests Test 08/22/16 04:15 Alanine Aminotransferase (ALT/SGPT) 185 H Albumin 2.3 L Albumin/Globulin Ratio 0.88 Alkaline Phosphatase 175 H Anion Gap 11 Aspartate Amino Transf (AST/SGOT) 209 H Basophils # 0.0 Basophils % 0.1 Blood Urea Nitrogen 5 L Calcium Level 8.3 L Carbon Dioxide Level 29 Chloride Level 106 Creatinine 0.33 L Direct Bilirubin 0.00 Eosinophils # 0.1 Eosinophils % 0.3 Globulin 2.60 Glucose Level 81 Hematocrit 26.7 L Hemoglobin 8.4 L Indirect Bilirubin 0.6 Lactate Dehydrogenase 758 H Lymphocytes # 0.9 Lymphocytes % 4.5 L Mean Corpuscular Hemoglobin 29.6 Mean Corpuscular Hemoglobin Concent 31.5 L Mean Corpuscular Volume 94.0 Mean Platelet Volume 9.7 Monocytes # 0.2 L Monocytes % 0.9 Neutrophils # 17.4 H Neutrophils % 86.5 H Nucleated Red Blood Cells # 0.0 Nucleated Red Blood Cells % 0.0 Platelet Count 81 #L Potassium Level 3.4 L Red Blood Count 2.84 L Red Cell Distribution Width 17.2 H Sodium Level 143 Total Bilirubin 0.6 Total Protein 4.9 L White Blood Count 20.1 #H Medications Medications Current Medications Sodium Chloride 1,000 ml @ 70 mls/hr [id number] IV Last administered on 08/22/16 08:45; Admin Dose 70 MLS/HR; Start 08/18/16 at 11:00 Vincristine Sulfate/Sodium Chloride (Oncovin/NS) 100 ml @ 100 mls/hr Q15D IV Last administered on 08/18/16 21:02; Admin Dose 100 MLS/HR; Start 08/18/16 at 16:00; Stop 09/02/16 at 16:59 Diphenhydramine HCl (Benadryl) 25 mg Q4 PRN IV ALLERGIC REACTION; Start at 13:30 Meperidine HCl (Demerol) 25 mg Q2 PRN IV PAIN Last administered on 08/20/16 16: 47; Admin Dose 25 MG; Start 08/18/16 at 13:30 Dexamethasone (Decadron) 10 mg Q4 PRN IV ALLERGIC REACTION; Start 08/18/16 at 13:30 Metoclopramide HCl (Reglan) 5 mg Q6H PRN IV NAUSEA Last administered on 08:58; Admin Dose 5 MG; Start 08/18/16 at 13:30 Famotidine 20 mg 20 mg DAILY PO Last administered on 08/22/16 08:45; Admin Dose 20 MG; Start 08/19/16 at 09:00 Ceftriaxone Sodium (Rocephin) 50 ml @ 100 mls/hr Q24H IVPB Last administered on 08/21/16 14:09; Admin Dose 100 MLS/HR; Start 08/18/16 at 13:30; Stop 08/25/16 at 13:29 Lorazepam 0.5 mg 0.5 mg Q6H PRN PO ANXIETY Last administered on 08/19/16 01:11 ; Admin Dose 0.5 MG; Start 08/18/16 at 13:30 Ondansetron HCl/ Sodium Chloride (Zofran Inj/NS) 54 ml @ 216 mls/hr Q6H PRN IV NAUSEA AND/OR VOMITING Last administered on 08/19/16 09:31; Admin Dose 216 MLS/HR; Start 08/19/16 at 09:00 Al Hydrox/Mg Hydrox/ Simethicone 30 ml 30 ml Q6H PRN PO GASTROINTESTINAL UPSET ; Start 08/19/16 at 14:30 Ondansetron HCl/ Dextrose (Zofran Inj/D5W) 54 ml @ 108 mls/hr Q6H PRN IV NAUSEA AND/OR VOMITING Last administered on 08/21/16 17:24; Admin Dose 108 MLS/ HR; Start 08/20/16 at 09:30 Metoclopramide HCl (Reglan) 20 mg Q6H PRN IV NAUSEA Last administered on 08:45; Admin Dose 20 MG; Start 08/20/16 at 09:30 Filgrastim (Neupogen) 480 mcg DAILY@17 SC Last administered on 08/21/16 17:25; Admin Dose 480 MCG; Start 08/20/16 at 17:00; Stop 08/24/16 at 17:01 Filgrastim (Neupogen) 480 mcg DAILY@17 SC ; Start 09/01/16 at 17:00; Stop at 17:01 Acetaminophen (Tylenol Tab) 650 mg Q6H PRN PO PAIN AND OR ELEVATED TEMP Last administered on 08/22/16 08:45; Admin Dose 650 MG; Start 08/20/16 at 23:30 Morphine Sulfate (morphine) 2 mg Q4H PRN IV SEVERE PAIN LEVEL 7-10 Last administered on 08/21/16 14:01; Admin Dose 2 MG; Start 08/21/16 at 11:00 CHANDRIKA MERLOS M.D. Aug 22, 2016 12:07
[2016-08-22] MEDS: CEFTRIAXONE 1 GM/50 ML (PMX) 50 ML IVPB SCH (14:44)
[2016-08-22] MEDS: FILGRASTIM 480 MCG INJ SC SCH (17:00)
[2016-08-22 20:17] VITALS: BP 157/85; RESP 19
[2016-08-22 21:50] VITALS: BP 140/70; PULSE 72; RESP 18
[2016-08-23 05:08] LABS: ADD SCAN DIFF NO
[2016-08-23 05:17] LABS: ABNORMAL IP MESSAGE 1; HEMATOCRIT 26.2 % (37.0-47.0); HEMOGLOBIN 8.4 g/dl (12.0-16.0); MEAN CORPUSCULAR HGB CONC 32.1 g/dl (32.0-37.0); MEAN CORPUSCULAR VOLUME 93.6 fl (82.0-101.0); MEAN PLATELET VOLUME 10.2 fl (7.4-10.4); PLATELET COUNT 78 10^3/UL (140-415); RED CELL DISTRIBUTION WIDTH 16.8 % (11.5-14.5); WHITE BLOOD COUNT 15.6 10^3/ul (4.8-10.8)
[2016-08-23 05:45] LABS: ALBUMIN 2.5 g/dl (3.3-4.9)
[2016-08-23 05:47] LABS: CREATININE 0.32 mg/dl (0.44-1.00)
[2016-08-23 05:48] LABS: ALBUMIN/GLOBULIN RATIO 1.31; BILIRUBIN,INDIRECT 0.6 mg/dl (0-1.1); BILIRUBIN,TOTAL 0.6 mg/dl (0.2-1.3); CALCIUM 8.3 mg/dl (8.4-10.2); TOTAL PROTEIN 4.4 g/dl (6.1-8.1)
[2016-08-23] MEDS: SOD CHLORIDE 0.9% 1,000 ML IV SCH ×2 (06:22→20:39)
[2016-08-23 07:00] VITALS: BP 160/91; RESP 20
[2016-08-23] MEDS: FAMOTIDINE 20 MG TAB PO SCH (09:09)
[2016-08-23 09:38] LABS: LYMPHOCYTES # 0.5 10^3/ul (0.8-2.9); MONOCYTE # 0.2 10^3/ul (0.3-0.9); NEUTROPHIL # 14.8 10^3/ul (1.6-7.5); PLATELET ESTIMATE PLT APPEAR DECREASED
[2016-08-23] MEDS: morphine 2 MG INJ IV PRN (11:42)
[2016-08-23] MEDS: METOCLOPRAMIDE 10 MG INJ IV PRN (11:42)
[2016-08-23 11:45] VITALS: BP 152/82; PULSE 85; RESP 18
--- NOTE | 2016-08-23 12:37 | PN ---
Date/Time of Note Date/Time of Note DATE: 08/23/16 TIME: 12:34 Assessment/Plan VTE Prophylaxis VTE Prophylaxis Intervention: SCD's Lines/Catheters IV Catheter Type (from Nrs): PICC Line Central line still needed: Yes Assessment/Plan Chief Complaint/Hosp Course ASSESSMENT AND PLAN: 1. History of Burkitt lymphoma. Continue chemotherapy as per oncology. 2. History of renal insufficiency. Stable, continue IV fluids. 3. History of transaminitis. Stable, likely secondary to chemotherapy, follow up liver function tests. 4. Essential hypertension - high nL range - start low dose losartan 5. Michelle thyroiditis. The patient has been followed up with auto damage appraiser as outpatient. 6. Intractable nausea. Continue Reglan Zofran and Tigan 7. For deep venous thrombosis prophylaxis on sequential compression devices. 8. For gastrointestinal prophylaxis, place the patient on Pepcid. Problems: Subjective 24 Hr Interval Summary Free Text/Dictation Pt asking about home bp meds, otherwise no acute events overnight. Exam/Review of Systems Vital Signs Vitals Vital Signs Date Time Temp Pulse Resp B/P Pulse Ox O2 Delivery O2 Flow Rate FiO2 08/23/16 11:45 98.0 85 18 152/82 98 Room Air Intake and Output 08/22/16 08/22/16 08/23/16 15:00 23:00 07:00 Intake Total 1320 ml 1640 ml Output Total 1200 ml 1400 ml Balance 120 ml 240 ml Exam General: The patient is well-developed, sleeping presently, no acute distress. HEENT: Atraumatic, normocephalic. The pupils are equal and round . Neck: Supple with full range of motion. Chest: Normal expansion of the thorax during inspiration Lungs: Clear to auscultation bilaterally Heart: Normal S1-S2, Regular rhythm and rate. Abdomen: Soft , nontender, nondistended , bowel sounds are present. Extremities: Normal to inspection, no edema no cyanosis Neurologic: no focal deficits Results Result Diagram: 08/23/16 0415 08/23/16 0415 Results 24 hrs Laboratory Tests Test 08/23/16 04:15 Alanine Aminotransferase (ALT/SGPT) 170 H Albumin 2.5 L Albumin/Globulin Ratio 1.31 Alkaline Phosphatase 205 H Anion Gap 10 Aspartate Amino Transf (AST/SGOT) 152 H Band Neutrophils % 1.0 Blood Urea Nitrogen 5 L Calcium Level 8.3 L Carbon Dioxide Level 29 Chloride Level 106 Creatinine 0.32 L Direct Bilirubin 0.00 Eosinophils # Eosinophils % Globulin 1.90 Glucose Level 86 Hematocrit 26.2 L Hemoglobin 8.4 L Indirect Bilirubin 0.6 Lactate Dehydrogenase 733 H Lymphocytes # 0.5 L Lymphocytes % 3.0 L Mean Corpuscular Hemoglobin 30.0 Mean Corpuscular Hemoglobin Concent 32.1 Mean Corpuscular Volume 93.6 Mean Platelet Volume 10.2 Monocytes # 0.2 L Monocytes % 1.0 Neutrophils # 14.8 H Neutrophils % Platelet Count 78 L Platelet Estimate PLT APPEAR DECREASED Potassium Level 3.0 L Red Blood Count 2.80 L Red Cell Distribution Width 16.8 H Sodium Level 142 Total Bilirubin 0.6 Total Protein 4.4 L White Blood Count 15.6 #H Medications Medications Current Medications Sodium Chloride 1,000 ml @ 70 mls/hr [id number] IV Last administered on 08/23/16 06:22; Admin Dose 70 MLS/HR; Start 08/18/16 at 11:00 Vincristine Sulfate/Sodium Chloride (Oncovin/NS) 100 ml @ 100 mls/hr Q15D IV Last administered on 08/18/16 21:02; Admin Dose 100 MLS/HR; Start 08/18/16 at 16:00; Stop 09/02/16 at 16:59 Diphenhydramine HCl (Benadryl) 25 mg Q4 PRN IV ALLERGIC REACTION; Start at 13:30 Meperidine HCl (Demerol) 25 mg Q2 PRN IV PAIN Last administered on 08/20/16 16: 47; Admin Dose 25 MG; Start 08/18/16 at 13:30 Dexamethasone (Decadron) 10 mg Q4 PRN IV ALLERGIC REACTION; Start 08/18/16 at 13:30 Metoclopramide HCl (Reglan) 5 mg Q6H PRN IV NAUSEA Last administered on 11:42; Admin Dose 5 MG; Start 08/18/16 at 13:30 Famotidine 20 mg 20 mg DAILY PO Last administered on 08/23/16 09:09; Admin Dose 20 MG; Start 08/19/16 at 09:00 Ceftriaxone Sodium (Rocephin) 50 ml @ 100 mls/hr Q24H IVPB Last administered on 08/22/16 14:44; Admin Dose 100 MLS/HR; Start 08/18/16 at 13:30; Stop 08/25/16 at 13:29 Lorazepam 0.5 mg 0.5 mg Q6H PRN PO ANXIETY Last administered on 08/19/16 01:11 ; Admin Dose 0.5 MG; Start 08/18/16 at 13:30 Ondansetron HCl/ Sodium Chloride (Zofran Inj/NS) 54 ml @ 216 mls/hr Q6H PRN IV NAUSEA AND/OR VOMITING Last administered on 08/19/16 09:31; Admin Dose 216 MLS/HR; Start 08/19/16 at 09:00 Al Hydrox/Mg Hydrox/ Simethicone 30 ml 30 ml Q6H PRN PO GASTROINTESTINAL UPSET ; Start 08/19/16 at 14:30 Ondansetron HCl/ Dextrose (Zofran Inj/D5W) 54 ml @ 108 mls/hr Q6H PRN IV NAUSEA AND/OR VOMITING Last administered on 08/21/16 17:24; Admin Dose 108 MLS/ HR; Start 08/20/16 at 09:30 Metoclopramide HCl (Reglan) 20 mg Q6H PRN IV NAUSEA Last administered on 14:44; Admin Dose 20 MG; Start 08/20/16 at 09:30 Filgrastim (Neupogen) 480 mcg DAILY@17 SC Last administered on 08/22/16 17:00; Admin Dose 480 MCG; Start 08/20/16 at 17:00; Stop 08/24/16 at 17:01 Filgrastim (Neupogen) 480 mcg DAILY@17 SC ; Start 09/01/16 at 17:00; Stop at 17:01 Acetaminophen (Tylenol Tab) 650 mg Q6H PRN PO PAIN AND OR ELEVATED TEMP Last administered on 08/22/16 14:44; Admin Dose 650 MG; Start 08/20/16 at 23:30 Morphine Sulfate (morphine) 2 mg Q4H PRN IV SEVERE PAIN LEVEL 7-10 Last administered on 08/23/16 11:42; Admin Dose 2 MG; Start 08/21/16 at 11:00 Hydralazine HCl (Apresoline) 10 mg Q6H PRN IV ELEVATED BLOOD PRESSURE; Start at 13:00; Status UNV Losartan Potassium (Cozaar) 25 mg DAILY PO ; Start 08/24/16 at 09:00; Status UNV ABISAI BRANCH Aug 23, 2016 12:37
[2016-08-23] MEDS ORDERED: hydrALAzine 20 MG INJ IV PRN (13:00)
[2016-08-23] MEDS: CEFTRIAXONE 1 GM/50 ML (PMX) 50 ML IVPB SCH (13:41)
[2016-08-23 13:50] VITALS: BP 152/82; PULSE 85
[2016-08-23] MEDS: LOSARTAN 25 MG TAB PO SCH (13:50)
[2016-08-23] MEDS ORDERED: POTASSIUM CHLORIDE 250 ML IVPB ONE (14:30)
[2016-08-23 16:00] VITALS: BP 137/81; PULSE 80
[2016-08-23] MEDS: ONDANSETRON INJ 8 MG in DEXTROSE 5% 50 ML IV PRN (17:54)
[2016-08-23] MEDS: FILGRASTIM 480 MCG INJ SC SCH (17:57)
[2016-08-23 20:24] VITALS: BP 135/88; PULSE 68; RESP 18
[2016-08-23] MEDS ORDERED: ACETAMINOPHEN 1000MG/100ML IV 100 ML IVPB PRN (20:30)
[2016-08-24] MEDS: CALCIUM CARBONATE 500 MG CHEW TAB PO PRN (01:31)
[2016-08-24] MEDS: DIPHENHYDRAMINE 50 MG INJ IV PRN (01:31)
[2016-08-24 08:00] VITALS: BP 123/67; PULSE 101; RESP 16
[2016-08-24] MEDS ORDERED: LOSARTAN 25 MG TAB PO SCH (09:00)
[2016-08-24 09:06] LABS: ADD SCAN DIFF NO
[2016-08-24 09:12] LABS: ABNORMAL IP MESSAGE 1; HEMATOCRIT 26.4 % (37.0-47.0); HEMOGLOBIN 8.3 g/dl (12.0-16.0); MEAN CORPUSCULAR HEMOGLOBIN 29.6 pg (29.0-33.0); MEAN CORPUSCULAR HGB CONC 31.4 g/dl (32.0-37.0); MEAN CORPUSCULAR VOLUME 94.3 fl (82.0-101.0); MEAN PLATELET VOLUME 10.5 fl (7.4-10.4); PLATELET COUNT 55 10^3/UL (140-415); RED CELL DISTRIBUTION WIDTH 16.7 % (11.5-14.5); WHITE BLOOD COUNT 6.4 10^3/ul (4.8-10.8)
[2016-08-24 09:23] LABS: ALBUMIN 2.8 g/dl (3.3-4.9)
[2016-08-24 09:24] LABS: POTASSIUM 3.9 mmol/L (3.5-5.1)
[2016-08-24 09:25] LABS: BILIRUBIN,INDIRECT 0.6 mg/dl (0-1.1); BILIRUBIN,TOTAL 0.6 mg/dl (0.2-1.3); CREATININE 0.32 mg/dl (0.44-1.00)
[2016-08-24 09:26] LABS: ALBUMIN/GLOBULIN RATIO 1.4; CALCIUM 8.9 mg/dl (8.4-10.2); TOTAL PROTEIN 4.8 g/dl (6.1-8.1)
[2016-08-24] MEDS: LOSARTAN 25 MG TAB PO SCH (09:48)
[2016-08-24] MEDS: FAMOTIDINE 20 MG TAB PO SCH (09:49)
[2016-08-24] MEDS: SOD CHLORIDE 0.9% 1,000 ML IV SCH (09:56)
[2016-08-24 10:11] LABS: EOSINOPHILS # 0.2 10^3/ul (0.0-0.5); LYMPHOCYTES # 1.7 10^3/ul (0.8-2.9); MONOCYTE # 0.1 10^3/ul (0.3-0.9); NEUTROPHIL # 4.4 10^3/ul (1.6-7.5)
[2016-08-24 10:21] LABS: PLATELET ESTIMATE PLT APPEAR DECREASED
--- NOTE | 2016-08-24 12:58 | PN ---
Date/Time of Note Date/Time of Note DATE: 08/24/16 TIME: 12:57 Assessment/Plan VTE Prophylaxis VTE Prophylaxis Intervention: SCD's Lines/Catheters IV Catheter Type (from Nrs): PICC Line Central line still needed: Yes Assessment/Plan Chief Complaint/Hosp Course ASSESSMENT AND PLAN: 56F with: 1. History of Burkitt lymphoma. Continue chemotherapy as per oncology, monitor labs 2. History of renal insufficiency. Stable, continue IV fluids. 3. History of transaminitis. Stable, likely secondary to chemotherapy, follow up liver function tests. 4. Essential hypertension - improved - continue losartan 5. Michelle thyroiditis. The patient has been followed up with investigator fraud as outpatient. 6. Intractable nausea. Continue Reglan Zofran and Tigan 7. For deep venous thrombosis prophylaxis on sequential compression devices. 8. For gastrointestinal prophylaxis, place the patient on Pepcid. Problems: Subjective 24 Hr Interval Summary Free Text/Dictation Less nausea today, no acute events overnight. Exam/Review of Systems Vital Signs Vitals Vital Signs Date Time Temp Pulse Resp B/P Pulse Ox O2 Delivery O2 Flow Rate FiO2 08/23/16 20:24 98.2 68 18 135/88 97 Room Air Intake and Output 08/23/16 08/23/16 08/24/16 15:00 23:00 07:00 Intake Total 50 ml 1904 ml 1670 ml Output Total 1110 ml 900 ml Balance 50 ml 794 ml 770 ml Exam General: The patient is well-developed, sleeping presently, no acute distress. HEENT: Atraumatic, normocephalic. The pupils are equal and round . Neck: Supple with full range of motion. Chest: Normal expansion of the thorax during inspiration Lungs: Clear to auscultation bilaterally Heart: Normal S1-S2, Regular rhythm and rate. Abdomen: Soft , nontender, nondistended , bowel sounds are present. Extremities: Normal to inspection, no edema no cyanosis Neurologic: no focal deficits Results Result Diagram: 08/24/1690008/24/16 09 Results 24 hrs Laboratory Tests Test 08/24/16 09:01 Alanine Aminotransferase (ALT/SGPT) 154 H Albumin 2.8 L Albumin/Globulin Ratio 1.40 Alkaline Phosphatase 207 H Anion Gap 13 Aspartate Amino Transf (AST/SGOT) 127 H Blood Urea Nitrogen 5 L Calcium Level 8.9 Carbon Dioxide Level 28 Chloride Level 104 Creatinine 0.32 L Direct Bilirubin 0.00 Eosinophils # 0.2 Eosinophils % 3.0 Globulin 2.00 Glucose Level 96 Hematocrit 26.4 L Hemoglobin 8.3 L Indirect Bilirubin 0.6 Lactate Dehydrogenase 600 Lymphocytes # 1.7 Lymphocytes % 27.0 Mean Corpuscular Hemoglobin 29.6 Mean Corpuscular Hemoglobin Concent 31.4 L Mean Corpuscular Volume 94.3 Mean Platelet Volume 10.5 H Monocytes # 0.1 L Monocytes % 1.0 Neutrophils # 4.4 Neutrophils % 69.0 Platelet Count 55 #L Platelet Estimate PLT APPEAR DECREASED Potassium Level 3.9 Red Blood Count 2.80 L Red Cell Distribution Width 16.7 H Sodium Level 141 Total Bilirubin 0.6 Total Protein 4.8 L White Blood Count 6.4 # Medications Medications Current Medications Sodium Chloride 1,000 ml @ 70 mls/hr [id number] IV Last administered on 08/23/16 20:39; Admin Dose 70 MLS/HR; Start 08/18/16 at 11:00 Vincristine Sulfate/Sodium Chloride (Oncovin/NS) 100 ml @ 100 mls/hr Q15D IV Last administered on 08/18/16 21:02; Admin Dose 100 MLS/HR; Start 08/18/16 at 16:00; Stop 09/02/16 at 16:59 Diphenhydramine HCl (Benadryl) 25 mg Q4 PRN IV ALLERGIC REACTION Last administered on 08/24/16 01:31; Admin Dose 25 MG; Start 08/18/16 at 13:30 Meperidine HCl (Demerol) 25 mg Q2 PRN IV PAIN Last administered on 08/20/16 16: 47; Admin Dose 25 MG; Start 08/18/16 at 13:30 Dexamethasone (Decadron) 10 mg Q4 PRN IV ALLERGIC REACTION; Start 08/18/16 at 13:30 Metoclopramide HCl (Reglan) 5 mg Q6H PRN IV NAUSEA Last administered on 11:42; Admin Dose 5 MG; Start 08/18/16 at 13:30 Famotidine 20 mg 20 mg DAILY PO Last administered on 08/24/16 09:49; Admin Dose 20 MG; Start 08/19/16 at 09:00 Ceftriaxone Sodium (Rocephin) 50 ml @ 100 mls/hr Q24H IVPB Last administered on 08/23/16 13:41; Admin Dose 100 MLS/HR; Start 08/18/16 at 13:30; Stop 08/25/16 at 13:29 Lorazepam 0.5 mg 0.5 mg Q6H PRN PO ANXIETY Last administered on 08/19/16 01:11 ; Admin Dose 0.5 MG; Start 08/18/16 at 13:30 Ondansetron HCl/ Sodium Chloride (Zofran Inj/NS) 54 ml @ 216 mls/hr Q6H PRN IV NAUSEA AND/OR VOMITING Last administered on 08/19/16 09:31; Admin Dose 216 MLS/HR; Start 08/19/16 at 09:00 Al Hydrox/Mg Hydrox/ Simethicone 30 ml 30 ml Q6H PRN PO GASTROINTESTINAL UPSET ; Start 08/19/16 at 14:30 Ondansetron HCl/ Dextrose (Zofran Inj/D5W) 54 ml @ 108 mls/hr Q6H PRN IV NAUSEA AND/OR VOMITING Last administered on 08/23/16 17:54; Admin Dose 108 MLS/ HR; Start 08/20/16 at 09:30 Metoclopramide HCl (Reglan) 20 mg Q6H PRN IV NAUSEA Last administered on 14:44; Admin Dose 20 MG; Start 08/20/16 at 09:30 Filgrastim (Neupogen) 480 mcg DAILY@17 SC Last administered on 08/23/16 17:57; Admin Dose 480 MCG; Start 08/20/16 at 17:00; Stop 08/24/16 at 17:01 Filgrastim (Neupogen) 480 mcg DAILY@17 SC ; Start 09/01/16 at 17:00; Stop at 17:01 Acetaminophen (Tylenol Tab) 650 mg Q6H PRN PO PAIN AND OR ELEVATED TEMP Last administered on 08/22/16 14:44; Admin Dose 650 MG; Start 08/20/16 at 23:30 Morphine Sulfate (morphine) 2 mg Q4H PRN IV SEVERE PAIN LEVEL 7-10 Last administered on 08/23/16 11:42; Admin Dose 2 MG; Start 08/21/16 at 11:00 Hydralazine HCl (Apresoline) 10 mg Q6H PRN IV ELEVATED BLOOD PRESSURE; Start at 13:00 Losartan Potassium 25 mg 25 mg DAILY PO Last administered on 08/24/16 09:48; Admin Dose 25 MG; Start 08/23/16 at 14:00 Acetaminophen (Ofirmev 1000mg/ 100ml Iv) 100 ml @ 400 mls/hr Q6 PRN IVPB HEADACHE Last administered on 08/23/16 20:39; Admin Dose 400 MLS/HR; Start at 20:30 ABISAI BRANCH Aug 24, 2016 12:58
[2016-08-24] MEDS: CEFTRIAXONE 1 GM/50 ML (PMX) 50 ML IVPB SCH (13:39)
[2016-08-24] MEDS: FILGRASTIM 480 MCG INJ SC SCH (16:47)
[2016-08-24 20:22] VITALS: BP 122/74; RESP 20
[2016-08-25] MEDS: DIPHENHYDRAMINE 50 MG INJ IV PRN (00:10)
[2016-08-25] MEDS: SOD CHLORIDE 0.9% 1,000 ML IV SCH ×2 (00:10→15:25)
[2016-08-25 05:17] LABS: ADD SCAN DIFF NO
[2016-08-25 05:31] LABS: ALBUMIN 2.6 g/dl (3.3-4.9); POTASSIUM 3.4 mmol/L (3.5-5.1)
[2016-08-25 05:33] LABS: BILIRUBIN,INDIRECT 0.4 mg/dl (0-1.1); BILIRUBIN,TOTAL 0.4 mg/dl (0.2-1.3); CREATININE 0.31 mg/dl (0.44-1.00)
[2016-08-25 05:34] LABS: ALBUMIN/GLOBULIN RATIO 1.3; CALCIUM 8.4 mg/dl (8.4-10.2); TOTAL PROTEIN 4.6 g/dl (6.1-8.1)
[2016-08-25 05:37] LABS: ABNORMAL IP MESSAGE 1; BASOPHILS % 0.7 % (0.0-2.0); EOSINOPHILS # 0.2 10^3/ul (0.0-0.5); EOSINOPHILS % 6.2 % (0.0-7.0); HEMOGLOBIN 7.6 g/dl (12.0-16.0); LYMPHOCYTES # 0.6 10^3/ul (0.8-2.9); LYMPHOCYTES % 19.9 % (15.0-51.0); MEAN CORPUSCULAR HEMOGLOBIN 29.8 pg (29.0-33.0); MEAN CORPUSCULAR HGB CONC 31.7 g/dl (32.0-37.0); MEAN CORPUSCULAR VOLUME 94.1 fl (82.0-101.0); MEAN PLATELET VOLUME 10.5 fl (7.4-10.4); MONOCYTE # 0.1 10^3/ul (0.3-0.9); MONOCYTES % 4.8 % (0.0-11.0); NEUTROPHIL # 1.8 10^3/ul (1.6-7.5); NEUTROPHILS % 62.9 % (39.0-77.0); PLATELET COUNT 41 10^3/UL (140-415); RED BLOOD COUNT 2.55 10^6/ul (4.20-5.40); RED CELL DISTRIBUTION WIDTH 16.5 % (11.5-14.5); WHITE BLOOD COUNT 2.9 10^3/ul (4.8-10.8)
[2016-08-25 08:42] VITALS: BP 134/66; RESP 18
[2016-08-25] MEDS: LOSARTAN 25 MG TAB PO SCH (08:48)
[2016-08-25] MEDS: FAMOTIDINE 20 MG TAB PO SCH (08:48)
--- NOTE | 2016-08-25 10:22 | PN ---
Date/Time of Note Date/Time of Note DATE: 08/25/16 TIME: 10:19 Assessment/Plan VTE Prophylaxis VTE Prophylaxis Intervention: SCD's Lines/Catheters IV Catheter Type (from Nrs): PICC Line Central line still needed: Yes Assessment/Plan Chief Complaint/Hosp Course ASSESSMENT AND PLAN: 1. History of Burkitt lymphoma. Continue chemotherapy as per oncology. 2. History of renal insufficiency. Stable, continue IV fluids. 3. History of transaminitis. Stable, likely secondary to chemotherapy, follow up liver function tests. 4. Essential hypertension, well controlled. 5. Michelle thyroiditis. The patient has been followed up with steep tender as outpatient. 6. Intractable nausea. Well-controlled Reglan Zofran and Tigan 7. Anemia. 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 For deep venous thrombosis prophylaxis on sequential compression devices. 9. For gastrointestinal prophylaxis, place the patient on Pepcid. We will continue to monitor patient closely. Further recommendations, management and treatment as per clinical course. Problems: Subjective 24 Hr Interval Summary Free Text/Dictation Patient denies of any chest pain or shortness of breath No nausea vomiting or diarrhea No abdominal discomfort Exam/Review of Systems Vital Signs Vitals Vital Signs Date Time Temp Pulse Resp B/P Pulse Ox O2 Delivery O2 Flow Rate FiO2 08/25/16 08:42 97.2 88 18 134/66 95 08/24/16 08:00 Room Air Intake and Output 08/24/16 08/24/16 08/25/16 15:00 23:00 07:00 Intake Total 1620 ml 620 ml Output Total 800 ml Balance 820 ml 620 ml Exam General: The patient is well-developed, Not in acute distress. With significant hair loss HEENT: Atraumatic, normocephalic. The pupils are equal and round . Neck: Supple with full range of motion. Trach site healing well Chest: Normal expansion of the thorax during inspiration Lungs: Clear to auscultation bilaterally Heart: Normal S1-S2, Regular rhythm and rate. Abdomen: Soft , nontender, nondistended , bowel sounds are present. Extremities: Normal to inspection, no edema no cyanosis Neurologic: Normal mental status,The patient is awake, alert and oriented . Results Result Diagram: 08/25/16 0440 08/25/16 0440 Results 24 hrs Laboratory Tests Test 08/25/16 04:40 Alanine Aminotransferase (ALT/SGPT) 138 H Albumin 2.6 L Albumin/Globulin Ratio 1.30 Alkaline Phosphatase 180 H Anion Gap 11 Aspartate Amino Transf (AST/SGOT) 102 H Basophils # 0.0 Basophils % 0.7 Blood Urea Nitrogen 5 L Calcium Level 8.4 Carbon Dioxide Level 27 Chloride Level 104 Creatinine 0.31 L Direct Bilirubin 0.00 Eosinophils # 0.2 Eosinophils % 6.2 Globulin 2.00 Glucose Level 90 Hematocrit 24.0 L Hemoglobin 7.6 L Indirect Bilirubin 0.4 Lactate Dehydrogenase 491 Lymphocytes # 0.6 L Lymphocytes % 19.9 Mean Corpuscular Hemoglobin 29.8 Mean Corpuscular Hemoglobin Concent 31.7 L Mean Corpuscular Volume 94.1 Mean Platelet Volume 10.5 H Monocytes # 0.1 L Monocytes % 4.8 Neutrophils # 1.8 Neutrophils % 62.9 Nucleated Red Blood Cells # 0.0 Nucleated Red Blood Cells % 0.0 Platelet Count 41 #L Potassium Level 3.4 L Red Blood Count 2.55 L Red Cell Distribution Width 16.5 H Sodium Level 139 Total Bilirubin 0.4 Total Protein 4.6 L White Blood Count 2.9 #L Medications Medications Current Medications Sodium Chloride 1,000 ml @ 70 mls/hr [id number] IV Last administered on 08/25/16 00:10; Admin Dose 70 MLS/HR; Start 08/18/16 at 11:00 Vincristine Sulfate/Sodium Chloride (Oncovin/NS) 100 ml @ 100 mls/hr Q15D IV Last administered on 08/18/16 21:02; Admin Dose 100 MLS/HR; Start 08/18/16 at 16:00; Stop 09/02/16 at 16:59 Diphenhydramine HCl (Benadryl) 25 mg Q4 PRN IV ALLERGIC REACTION Last administered on 08/25/16 00:10; Admin Dose 25 MG; Start 08/18/16 at 13:30 Meperidine HCl (Demerol) 25 mg Q2 PRN IV PAIN Last administered on 08/20/16 16: 47; Admin Dose 25 MG; Start 08/18/16 at 13:30 Dexamethasone (Decadron) 10 mg Q4 PRN IV ALLERGIC REACTION; Start 08/18/16 at 13:30 Metoclopramide HCl (Reglan) 5 mg Q6H PRN IV NAUSEA Last administered on 11:42; Admin Dose 5 MG; Start 08/18/16 at 13:30 Famotidine 20 mg 20 mg DAILY PO Last administered on 08/25/16 08:48; Admin Dose 20 MG; Start 08/19/16 at 09:00 Ceftriaxone Sodium (Rocephin) 50 ml @ 100 mls/hr Q24H IVPB Last administered on 08/24/16 13:39; Admin Dose 100 MLS/HR; Start 08/18/16 at 13:30; Stop 08/25/16 at 13:29 Lorazepam 0.5 mg 0.5 mg Q6H PRN PO ANXIETY Last administered on 08/19/16 01:11 ; Admin Dose 0.5 MG; Start 08/18/16 at 13:30 Ondansetron HCl/ Sodium Chloride (Zofran Inj/NS) 54 ml @ 216 mls/hr Q6H PRN IV NAUSEA AND/OR VOMITING Last administered on 08/19/16 09:31; Admin Dose 216 MLS/HR; Start 08/19/16 at 09:00 Al Hydrox/Mg Hydrox/ Simethicone 30 ml 30 ml Q6H PRN PO GASTROINTESTINAL UPSET ; Start 08/19/16 at 14:30 Ondansetron HCl/ Dextrose (Zofran Inj/D5W) 54 ml @ 108 mls/hr Q6H PRN IV NAUSEA AND/OR VOMITING Last administered on 08/23/16 17:54; Admin Dose 108 MLS/ HR; Start 08/20/16 at 09:30 Metoclopramide HCl (Reglan) 20 mg Q6H PRN IV NAUSEA Last administered on 14:44; Admin Dose 20 MG; Start 08/20/16 at 09:30 Filgrastim (Neupogen) 480 mcg DAILY@17 SC ; Start 09/01/16 at 17:00; Stop at 17:01 Acetaminophen (Tylenol Tab) 650 mg Q6H PRN PO PAIN AND OR ELEVATED TEMP Last administered on 08/22/16 14:44; Admin Dose 650 MG; Start 08/20/16 at 23:30 Morphine Sulfate (morphine) 2 mg Q4H PRN IV SEVERE PAIN LEVEL 7-10 Last administered on 08/23/16 11:42; Admin Dose 2 MG; Start 08/21/16 at 11:00 Hydralazine HCl (Apresoline) 10 mg Q6H PRN IV ELEVATED BLOOD PRESSURE; Start at 13:00 Losartan Potassium 25 mg 25 mg DAILY PO Last administered on 08/25/16 08:48; Admin Dose 25 MG; Start 08/23/16 at 14:00 Acetaminophen (Ofirmev 1000mg/ 100ml Iv) 100 ml @ 400 mls/hr Q6 PRN IVPB HEADACHE Last administered on 08/23/16 20:39; Admin Dose 400 MLS/HR; Start at 20:30 JANETH RAMOS MD Aug 25, 2016 10:22
--- NOTE | 2016-08-25 11:32 | CONS ---
Date/Time of Note Date/Time of Note DATE: 08/25/16 TIME: 11:30 Assessment/Plan Assessment/Plan Chief Complaint/Hosp Course 56 yo female with massive neck mass causing tracheal compression and airway compromise s/p tracheostomy placement. 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 Pt was given cycle 1A and 1Bof R HyperCVAD but had only a partial response to therapy and severe side effects. We have thus changed her chemotherapy regimen. She is now s/p cycle 1B of R-IVAC and is now being admitted for cycle 2A of R-Codox M. Most recent CT neck showed resolution of the mass. . Problems: Additional Assessment/Plan # Burkitt's lymphoma -proceed with cycle 2A R CODOX -M -Rituximab (Rituxan) as follows: Day 1 is 08/18 * Cycle 1: 375 mg/m2 (660mg) IV on Day 1 -Cyclophosphamide (Cytoxan) 800 mg/m2 ( 1415mg) IV once per day on days 1 & 2 -Vincristine (Oncovin) 1.0 mg (dose reduced for neuropathy) days 1 & 15 . -Doxorubicin (Adriamycin) 50 mg/m2 (88mg) IV once on day 1 . dose reduced by 50 % for elevated transaminases -Methotrexate (MTX) 3100mg/m2 (175mg) IV over 1 hour then 900mg/m2 (1590mg) over 23 hours on day 15. will start IVF with 2 amps Na HCo3 prior to MTX infusion since Urine Ph > 7.0. Leucovorin 25mg IV q 4 hours will start 36 hours after MTX starts until MTX level is < 0.05. # Supportive Care and prophylactic meds -Acyclovir 400mg BID on hold for increased LFTS -fluconazole 100mg q day on hold for increased LFTS -Neupogen 300mcg q day. need to continue for 5 days total -Zofran 8mg IV q 6 + Reglan 20mg IV q 6 ordered prn nausea #Expected Pancytopenia -keep Hg> 8 and platelets > 10 -will given 1 unit of PRBCs today # Elevated AST and ALT, likely related to methotrexate. ultrasound shows fatty liver -continue to monitor LFTs, continue to increase.. 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 all steroids should be discontinued for now unless they are part of the chemotherapy regimen -continue to work with physical therapy. # Respiratory compromise -trach has been removed approximately 40 min were spent at patient's bedside and in coordination of her care Consultation Date/Type/Reason Admit Date/Time Aug 18, 2016 at 11:11 Initial Consult Date 08/18/16 Type of Consultation: Hematology Reason for Consultation Burkitt's lymphoma Referring Provider: ABISAI BRANCH 24 HR Interval Summary Free Text/Dictation no acute overnight events. patient states her abdominal pain has improved. no nausea Exam/Review of Systems Vital Signs Vitals Vital Signs Date Time Temp Pulse Resp B/P Pulse Ox O2 Delivery O2 Flow Rate FiO2 08/25/16 08:42 97.2 88 18 134/66 95 08/24/16 08:00 Room Air Intake and Output 08/24/16 08/24/16 08/25/16 14:59 22:59 06:59 Intake Total 1620 ml 620 ml Output Total 800 ml Balance 820 ml 620 ml Exam Constitutional: alert, oriented Psych: no complaints Head: atraumatic, normocephalic Eyes: nl conjunctiva ENMT: nl external ears & nose Neck: non-tender, supple Respiratory: clear to auscultation, normal air movement Cardiovascular: nl pulses, regular rate and rhythm Gastrointestinal: soft Musculoskeletal: nl extremities to inspection, nl gait and stance Extremities: normal pulses Results Result Diagram: 08/25/16 0440 08/25/16 0440 Results 24 hrs Laboratory Tests Test 08/25/16 04:40 Alanine Aminotransferase (ALT/SGPT) 138 H Albumin 2.6 L Albumin/Globulin Ratio 1.30 Alkaline Phosphatase 180 H Anion Gap 11 Aspartate Amino Transf (AST/SGOT) 102 H Basophils # 0.0 Basophils % 0.7 Blood Urea Nitrogen 5 L Calcium Level 8.4 Carbon Dioxide Level 27 Chloride Level 104 Creatinine 0.31 L Direct Bilirubin 0.00 Eosinophils # 0.2 Eosinophils % 6.2 Globulin 2.00 Glucose Level 90 Hematocrit 24.0 L Hemoglobin 7.6 L Indirect Bilirubin 0.4 Lactate Dehydrogenase 491 Lymphocytes # 0.6 L Lymphocytes % 19.9 Mean Corpuscular Hemoglobin 29.8 Mean Corpuscular Hemoglobin Concent 31.7 L Mean Corpuscular Volume 94.1 Mean Platelet Volume 10.5 H Monocytes # 0.1 L Monocytes % 4.8 Neutrophils # 1.8 Neutrophils % 62.9 Nucleated Red Blood Cells # 0.0 Nucleated Red Blood Cells % 0.0 Platelet Count 41 #L Potassium Level 3.4 L Red Blood Count 2.55 L Red Cell Distribution Width 16.5 H Sodium Level 139 Total Bilirubin 0.4 Total Protein 4.6 L White Blood Count 2.9 #L Medications Medications Current Medications Sodium Chloride 1,000 ml @ 70 mls/hr [id number] IV Last administered on 08/25/16 00:10; Admin Dose 70 MLS/HR; Start 08/18/16 at 11:00 Vincristine Sulfate/Sodium Chloride (Oncovin/NS) 100 ml @ 100 mls/hr Q15D IV Last administered on 08/18/16 21:02; Admin Dose 100 MLS/HR; Start 08/18/16 at 16:00; Stop 09/02/16 at 16:59 Diphenhydramine HCl (Benadryl) 25 mg Q4 PRN IV ALLERGIC REACTION Last administered on 08/25/16 00:10; Admin Dose 25 MG; Start 08/18/16 at 13:30 Meperidine HCl (Demerol) 25 mg Q2 PRN IV PAIN Last administered on 08/20/16 16: 47; Admin Dose 25 MG; Start 08/18/16 at 13:30 Dexamethasone (Decadron) 10 mg Q4 PRN IV ALLERGIC REACTION; Start 08/18/16 at 13:30 Metoclopramide HCl (Reglan) 5 mg Q6H PRN IV NAUSEA Last administered on 11:42; Admin Dose 5 MG; Start 08/18/16 at 13:30 Famotidine 20 mg 20 mg DAILY PO Last administered on 08/25/16 08:48; Admin Dose 20 MG; Start 08/19/16 at 09:00 Ceftriaxone Sodium (Rocephin) 50 ml @ 100 mls/hr Q24H IVPB Last administered on 08/24/16 13:39; Admin Dose 100 MLS/HR; Start 08/18/16 at 13:30; Stop 08/25/16 at 13:29 Lorazepam 0.5 mg 0.5 mg Q6H PRN PO ANXIETY Last administered on 08/19/16 01:11 ; Admin Dose 0.5 MG; Start 08/18/16 at 13:30 Ondansetron HCl/ Sodium Chloride (Zofran Inj/NS) 54 ml @ 216 mls/hr Q6H PRN IV NAUSEA AND/OR VOMITING Last administered on 08/19/16 09:31; Admin Dose 216 MLS/HR; Start 08/19/16 at 09:00 Al Hydrox/Mg Hydrox/ Simethicone 30 ml 30 ml Q6H PRN PO GASTROINTESTINAL UPSET ; Start 08/19/16 at 14:30 Ondansetron HCl/ Dextrose (Zofran Inj/D5W) 54 ml @ 108 mls/hr Q6H PRN IV NAUSEA AND/OR VOMITING Last administered on 08/23/16 17:54; Admin Dose 108 MLS/ HR; Start 08/20/16 at 09:30 Metoclopramide HCl (Reglan) 20 mg Q6H PRN IV NAUSEA Last administered on 14:44; Admin Dose 20 MG; Start 08/20/16 at 09:30 Filgrastim (Neupogen) 480 mcg DAILY@17 SC ; Start 09/01/16 at 17:00; Stop at 17:01 Acetaminophen (Tylenol Tab) 650 mg Q6H PRN PO PAIN AND OR ELEVATED TEMP Last administered on 08/22/16 14:44; Admin Dose 650 MG; Start 08/20/16 at 23:30 Morphine Sulfate (morphine) 2 mg Q4H PRN IV SEVERE PAIN LEVEL 7-10 Last administered on 08/23/16 11:42; Admin Dose 2 MG; Start 08/21/16 at 11:00 Hydralazine HCl (Apresoline) 10 mg Q6H PRN IV ELEVATED BLOOD PRESSURE; Start at 13:00 Losartan Potassium 25 mg 25 mg DAILY PO Last administered on 08/25/16 08:48; Admin Dose 25 MG; Start 08/23/16 at 14:00 Acetaminophen (Ofirmev 1000mg/ 100ml Iv) 100 ml @ 400 mls/hr Q6 PRN IVPB HEADACHE Last administered on 08/23/16 20:39; Admin Dose 400 MLS/HR; Start at 20:30 CHANDRIKA MERLOS M.D. Aug 25, 2016 11:32
[2016-08-25 20:22] VITALS: BP 121/70; RESP 18
[2016-08-25] MEDS: CALCIUM CARBONATE 500 MG CHEW TAB PO PRN (22:50)
[2016-08-25] MEDS: METOCLOPRAMIDE 10 MG INJ IV PRN (22:51)
[2016-08-26] MEDS: SOD CHLORIDE 0.9% 1,000 ML IV SCH ×2 (04:54→18:19)
[2016-08-26 04:57] LABS: ADD SCAN DIFF NO
[2016-08-26 05:04] LABS: ABNORMAL IP MESSAGE 1; HEMOGLOBIN 8.2 g/dl (12.0-16.0); MEAN CORPUSCULAR HEMOGLOBIN 29.7 pg (29.0-33.0); MEAN CORPUSCULAR HGB CONC 32.8 g/dl (32.0-37.0); MEAN CORPUSCULAR VOLUME 90.6 fl (82.0-101.0); MEAN PLATELET VOLUME 9.8 fl (7.4-10.4); PLATELET COUNT 32 10^3/UL (140-415); RED BLOOD COUNT 2.76 10^6/ul (4.20-5.40); RED CELL DISTRIBUTION WIDTH 16.5 % (11.5-14.5); WHITE BLOOD COUNT 1.4 10^3/ul (4.8-10.8)
[2016-08-26 05:56] LABS: ALBUMIN 2.4 g/dl (3.3-4.9)
[2016-08-26 05:57] LABS: POTASSIUM 3.3 mmol/L (3.5-5.1)
[2016-08-26 05:59] LABS: ALBUMIN/GLOBULIN RATIO 1.33; BILIRUBIN,INDIRECT 0.5 mg/dl (0-1.1); BILIRUBIN,TOTAL 0.5 mg/dl (0.2-1.3); CALCIUM 8.4 mg/dl (8.4-10.2); CREATININE 0.32 mg/dl (0.44-1.00); TOTAL PROTEIN 4.2 g/dl (6.1-8.1)
[2016-08-26 08:24] VITALS: BP 125/67; RESP 18
[2016-08-26] MEDS: FAMOTIDINE 20 MG TAB PO SCH (09:02)
[2016-08-26] MEDS: LOSARTAN 25 MG TAB PO SCH (09:03)
[2016-08-26 10:04] LABS: EOSINOPHILS # 0.2 10^3/ul (0.0-0.5); LYMPHOCYTES # 0.8 10^3/ul (0.8-2.9); NEUTROPHIL # 0.3 10^3/ul (1.6-7.5); PLATELET ESTIMATE PLT APPEAR DECREASED
--- NOTE | 2016-08-26 11:46 | PN ---
Date/Time of Note Date/Time of Note DATE: 08/26/16 TIME: 11:45 Assessment/Plan VTE Prophylaxis VTE Prophylaxis Intervention: SCD's Lines/Catheters IV Catheter Type (from Nrs): PICC Line Central line still needed: Yes Assessment/Plan Chief Complaint/Hosp Course ASSESSMENT AND PLAN: 1. History of Burkitt lymphoma. Continue chemotherapy as per oncology. 2. History of renal insufficiency. Stable, continue IV fluids. 3. History of transaminitis. Stable, likely secondary to chemotherapy, follow up liver function tests. 4. Essential hypertension, well controlled. 5. Michelle thyroiditis. The patient has been followed up with healthcare recruiter as outpatient. 6. Intractable nausea. Well-controlled Reglan Zofran and Tigan 7. Anemia. Likely postchemotherapy, follow-up continuous process rotary drum tanner recommendation for transfusion 8. For deep venous thrombosis prophylaxis on sequential compression devices. 9. For gastrointestinal prophylaxis, place the patient on Pepcid. We will continue to monitor patient closely. Further recommendations, management and treatment as per clinical course. Problems: Subjective 24 Hr Interval Summary Free Text/Dictation Patient denies of any chest pain or shortness of breath Denies of any nausea or vomiting Tolerating oral intake Ambulating without any assistance or discomfort Exam/Review of Systems Vital Signs Vitals Vital Signs Date Time Temp Pulse Resp B/P Pulse Ox O2 Delivery O2 Flow Rate FiO2 08/26/16 08:24 97.8 78 18 125/67 92 08/24/16 08:00 Room Air Intake and Output 08/25/16 08/25/16 08/26/16 15:00 23:00 07:00 Intake Total 1520 ml 400 ml Balance 1520 ml 400 ml Exam General: The patient is well-developed, Not in acute distress. Evidence of hair loss HEENT: Atraumatic, normocephalic. The pupils are equal and round . Neck: Supple with full range of motion. Chest: Normal expansion of the thorax during inspiration Lungs: Clear to auscultation bilaterally Heart: Normal S1-S2, Regular rhythm and rate. Abdomen: Soft , nontender, nondistended , bowel sounds are present. Extremities: Normal to inspection, no edema no cyanosis Neurologic: Normal mental status,The patient is awake, alert and oriented . Results Result Diagram: 08/26/16 0435 08/26/16 0435 Results 24 hrs Laboratory Tests Test 08/26/16 04:35 Alanine Aminotransferase (ALT/SGPT) 130 H Albumin 2.4 L Albumin/Globulin Ratio 1.33 Alkaline Phosphatase 156 H Anion Gap 9 Aspartate Amino Transf (AST/SGOT) 100 H Band Neutrophils % 4.0 Basophils # 0.0 Basophils % 1.0 Blood Urea Nitrogen 3 L Calcium Level 8.4 Carbon Dioxide Level 28 Chloride Level 107 Creatinine 0.32 L Direct Bilirubin 0.00 Eosinophils # 0.2 Eosinophils % 17.0 H Globulin 1.80 Glucose Level 88 Hematocrit 25.0 L Hemoglobin 8.2 L Indirect Bilirubin 0.5 Lactate Dehydrogenase 433 Lymphocytes # 0.8 Lymphocytes % 54.0 H Mean Corpuscular Hemoglobin 29.7 Mean Corpuscular Hemoglobin Concent 32.8 Mean Corpuscular Volume 90.6 Mean Platelet Volume 9.8 Monocytes # 0.0 L Monocytes % 3.0 Neutrophils # 0.3 L Neutrophils % 21.0 L Platelet Count 32 #L Platelet Estimate PLT APPEAR DECREASED Potassium Level 3.3 L Red Blood Count 2.76 L Red Cell Distribution Width 16.5 H Sodium Level 141 Total Bilirubin 0.5 Total Protein 4.2 L White Blood Count 1.4 #L Medications Medications Current Medications Sodium Chloride 1,000 ml @ 70 mls/hr [id number] IV Last administered on 08/25/16 15:25; Admin Dose 70 MLS/HR; Start 08/18/16 at 11:00 Vincristine Sulfate/Sodium Chloride (Oncovin/NS) 100 ml @ 100 mls/hr Q15D IV Last administered on 08/18/16 21:02; Admin Dose 100 MLS/HR; Start 08/18/16 at 16:00; Stop 09/02/16 at 16:59 Diphenhydramine HCl (Benadryl) 25 mg Q4 PRN IV ALLERGIC REACTION Last administered on 08/25/16 00:10; Admin Dose 25 MG; Start 08/18/16 at 13:30 Meperidine HCl (Demerol) 25 mg Q2 PRN IV PAIN Last administered on 08/20/16 16: 47; Admin Dose 25 MG; Start 08/18/16 at 13:30 Dexamethasone (Decadron) 10 mg Q4 PRN IV ALLERGIC REACTION; Start 08/18/16 at 13:30 Metoclopramide HCl (Reglan) 5 mg Q6H PRN IV NAUSEA Last administered on 11:42; Admin Dose 5 MG; Start 08/18/16 at 13:30 Famotidine (Pepcid) 20 mg DAILY PO Last administered on 08/26/16 09:02; Admin Dose 20 MG; Start 08/19/16 at 09:00 Lorazepam 0.5 mg 0.5 mg Q6H PRN PO ANXIETY Last administered on 08/19/16 01:11 ; Admin Dose 0.5 MG; Start 08/18/16 at 13:30 Ondansetron HCl/ Sodium Chloride (Zofran Inj/NS) 54 ml @ 216 mls/hr Q6H PRN IV NAUSEA AND/OR VOMITING Last administered on 08/19/16 09:31; Admin Dose 216 MLS/HR; Start 08/19/16 at 09:00 Al Hydrox/Mg Hydrox/ Simethicone 30 ml 30 ml Q6H PRN PO GASTROINTESTINAL UPSET ; Start 08/19/16 at 14:30 Ondansetron HCl/ Dextrose (Zofran Inj/D5W) 54 ml @ 108 mls/hr Q6H PRN IV NAUSEA AND/OR VOMITING Last administered on 08/23/16 17:54; Admin Dose 108 MLS/ HR; Start 08/20/16 at 09:30 Metoclopramide HCl (Reglan) 20 mg Q6H PRN IV NAUSEA Last administered on 22:51; Admin Dose 20 MG; Start 08/20/16 at 09:30 Filgrastim (Neupogen) 480 mcg DAILY@17 SC ; Start 09/01/16 at 17:00; Stop at 17:01 Acetaminophen (Tylenol Tab) 650 mg Q6H PRN PO PAIN AND OR ELEVATED TEMP Last administered on 08/22/16 14:44; Admin Dose 650 MG; Start 08/20/16 at 23:30 Morphine Sulfate (morphine) 2 mg Q4H PRN IV SEVERE PAIN LEVEL 7-10 Last administered on 08/23/16 11:42; Admin Dose 2 MG; Start 08/21/16 at 11:00 Hydralazine HCl (Apresoline) 10 mg Q6H PRN IV ELEVATED BLOOD PRESSURE; Start at 13:00 Losartan Potassium 25 mg 25 mg DAILY PO Last administered on 08/26/16 09:03; Admin Dose 25 MG; Start 08/23/16 at 14:00 Acetaminophen (Ofirmev 1000mg/ 100ml Iv) 100 ml @ 400 mls/hr Q6 PRN IVPB HEADACHE Last administered on 08/23/16 20:39; Admin Dose 400 MLS/HR; Start at 20:30 JANETH RAMOS MD Aug 26, 2016 11:46
--- NOTE | 2016-08-26 12:52 | CONS ---
Date/Time of Note Date/Time of Note DATE: 08/26/16 TIME: 12:50 Assessment/Plan Assessment/Plan Chief Complaint/Hosp Course 56 yo female with massive neck mass causing tracheal compression and airway compromise s/p tracheostomy placement. 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 Pt was given cycle 1A and 1Bof R HyperCVAD but had only a partial response to therapy and severe side effects. We have thus changed her chemotherapy regimen. She is now s/p cycle 1B of R-IVAC and is now being admitted for cycle 2A of R-Codox M. Most recent CT neck showed resolution of the mass. . Problems: Additional Assessment/Plan # Burkitt's lymphoma -proceed with cycle 2A R CODOX -M -Rituximab (Rituxan) as follows: Day 1 is 08/18 * Cycle 1: 375 mg/m2 (660mg) IV on Day 1 -Cyclophosphamide (Cytoxan) 800 mg/m2 ( 1415mg) IV once per day on days 1 & 2 -Vincristine (Oncovin) 1.0 mg (dose reduced for neuropathy) days 1 & 15 . next dose due 09/02 -Doxorubicin (Adriamycin) 50 mg/m2 (88mg) IV once on day 1 . dose reduced by 50 % for elevated transaminases -Methotrexate (MTX) 3100mg/m2 (175mg) IV over 1 hour then 900mg/m2 (1590mg) over 23 hours on day 15. will start IVF with 2 amps Na HCo3 prior to MTX infusion since Urine Ph > 7.0. Leucovorin 25mg IV q 4 hours will start 36 hours after MTX starts until MTX level is < 0.05. # Supportive Care and prophylactic meds -Acyclovir 400mg BID on hold for increased LFTS -fluconazole 100mg q day on hold for increased LFTS -Neupogen 300mcg q day. need to continue for 5 days total -Zofran 8mg IV q 6 + Reglan 20mg IV q 6 ordered prn nausea #Expected Pancytopenia -keep Hg> 8 and platelets > 10 -will given 1 unit of PRBCs today # Elevated AST and ALT, likely related to methotrexate. ultrasound shows fatty liver -continue to monitor LFTs, continue to increase.. 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 all steroids should be discontinued for now unless they are part of the chemotherapy regimen -continue to work with physical therapy. # Respiratory compromise -trach has been removed approximately 40 min were spent at patient's bedside and in coordination of her care Consultation Date/Type/Reason Admit Date/Time Aug 18, 2016 at 11:11 Initial Consult Date 08/18/16 Type of Consultation: Hematology Reason for Consultation Burkitt's lymphoma Referring Provider: ABISAI BRANCH 24 HR Interval Summary Free Text/Dictation pt denies any nausea nor abdominal pain Exam/Review of Systems Vital Signs Vitals Vital Signs Date Time Temp Pulse Resp B/P Pulse Ox O2 Delivery O2 Flow Rate FiO2 08/26/16 08:24 97.8 78 18 125/67 92 08/24/16 08:00 Room Air Intake and Output 08/25/16 08/25/16 08/26/16 15:00 23:00 07:00 Intake Total 1520 ml 400 ml Balance 1520 ml 400 ml Exam Constitutional: alert, oriented Psych: no complaints Head: atraumatic, normocephalic Eyes: nl conjunctiva ENMT: nl external ears & nose Neck: non-tender, supple Respiratory: clear to auscultation, normal air movement Cardiovascular: regular rate and rhythm Gastrointestinal: soft Musculoskeletal: nl extremities to inspection, nl gait and stance Results Result Diagram: 08/26/1643408/26/16434 Results 24 hrs Laboratory Tests Test 08/26/16 04:35 Alanine Aminotransferase (ALT/SGPT) 130 H Albumin 2.4 L Albumin/Globulin Ratio 1.33 Alkaline Phosphatase 156 H Anion Gap 9 Aspartate Amino Transf (AST/SGOT) 100 H Band Neutrophils % 4.0 Basophils # 0.0 Basophils % 1.0 Blood Urea Nitrogen 3 L Calcium Level 8.4 Carbon Dioxide Level 28 Chloride Level 107 Creatinine 0.32 L Direct Bilirubin 0.00 Eosinophils # 0.2 Eosinophils % 17.0 H Globulin 1.80 Glucose Level 88 Hematocrit 25.0 L Hemoglobin 8.2 L Indirect Bilirubin 0.5 Lactate Dehydrogenase 433 Lymphocytes # 0.8 Lymphocytes % 54.0 H Mean Corpuscular Hemoglobin 29.7 Mean Corpuscular Hemoglobin Concent 32.8 Mean Corpuscular Volume 90.6 Mean Platelet Volume 9.8 Monocytes # 0.0 L Monocytes % 3.0 Neutrophils # 0.3 L Neutrophils % 21.0 L Platelet Count 32 #L Platelet Estimate PLT APPEAR DECREASED Potassium Level 3.3 L Red Blood Count 2.76 L Red Cell Distribution Width 16.5 H Sodium Level 141 Total Bilirubin 0.5 Total Protein 4.2 L White Blood Count 1.4 #L Medications Medications Current Medications Sodium Chloride 1,000 ml @ 70 mls/hr [id number] IV Last administered on 08/25/16 15:25; Admin Dose 70 MLS/HR; Start 08/18/16 at 11:00 Vincristine Sulfate/Sodium Chloride (Oncovin/NS) 100 ml @ 100 mls/hr Q15D IV Last administered on 08/18/16 21:02; Admin Dose 100 MLS/HR; Start 08/18/16 at 16:00; Stop 09/02/16 at 16:59 Diphenhydramine HCl (Benadryl) 25 mg Q4 PRN IV ALLERGIC REACTION Last administered on 08/25/16 00:10; Admin Dose 25 MG; Start 08/18/16 at 13:30 Meperidine HCl (Demerol) 25 mg Q2 PRN IV PAIN Last administered on 08/20/16 16: 47; Admin Dose 25 MG; Start 08/18/16 at 13:30 Dexamethasone (Decadron) 10 mg Q4 PRN IV ALLERGIC REACTION; Start 08/18/16 at 13:30 Metoclopramide HCl (Reglan) 5 mg Q6H PRN IV NAUSEA Last administered on 11:42; Admin Dose 5 MG; Start 08/18/16 at 13:30 Famotidine (Pepcid) 20 mg DAILY PO Last administered on 08/26/16 09:02; Admin Dose 20 MG; Start 08/19/16 at 09:00 Lorazepam 0.5 mg 0.5 mg Q6H PRN PO ANXIETY Last administered on 08/19/16 01:11 ; Admin Dose 0.5 MG; Start 08/18/16 at 13:30 Ondansetron HCl/ Sodium Chloride (Zofran Inj/NS) 54 ml @ 216 mls/hr Q6H PRN IV NAUSEA AND/OR VOMITING Last administered on 08/19/16 09:31; Admin Dose 216 MLS/HR; Start 08/19/16 at 09:00 Al Hydrox/Mg Hydrox/ Simethicone 30 ml 30 ml Q6H PRN PO GASTROINTESTINAL UPSET ; Start 08/19/16 at 14:30 Ondansetron HCl/ Dextrose (Zofran Inj/D5W) 54 ml @ 108 mls/hr Q6H PRN IV NAUSEA AND/OR VOMITING Last administered on 08/23/16 17:54; Admin Dose 108 MLS/ HR; Start 08/20/16 at 09:30 Metoclopramide HCl (Reglan) 20 mg Q6H PRN IV NAUSEA Last administered on 22:51; Admin Dose 20 MG; Start 08/20/16 at 09:30 Filgrastim (Neupogen) 480 mcg DAILY@17 SC ; Start 09/01/16 at 17:00; Stop at 17:01 Acetaminophen (Tylenol Tab) 650 mg Q6H PRN PO PAIN AND OR ELEVATED TEMP Last administered on 08/22/16 14:44; Admin Dose 650 MG; Start 08/20/16 at 23:30 Morphine Sulfate (morphine) 2 mg Q4H PRN IV SEVERE PAIN LEVEL 7-10 Last administered on 08/23/16 11:42; Admin Dose 2 MG; Start 08/21/16 at 11:00 Hydralazine HCl (Apresoline) 10 mg Q6H PRN IV ELEVATED BLOOD PRESSURE; Start at 13:00 Losartan Potassium 25 mg 25 mg DAILY PO Last administered on 08/26/16 09:03; Admin Dose 25 MG; Start 08/23/16 at 14:00 Acetaminophen (Ofirmev 1000mg/ 100ml Iv) 100 ml @ 400 mls/hr Q6 PRN IVPB HEADACHE Last administered on 08/23/16 20:39; Admin Dose 400 MLS/HR; Start at 20:30 CHANDRIKA MERLOS M.D. Aug 26, 2016 12:52
[2016-08-26 19:40] VITALS: BP 136/80; PULSE 98; RESP 18
[2016-08-26] MEDS: METOCLOPRAMIDE 10 MG INJ IV PRN (21:47)
[2016-08-27] MEDS: SOD CHLORIDE 0.9% 1,000 ML IV SCH ×2 (05:20→23:48)
[2016-08-27 05:42] LABS: ADD SCAN DIFF NO
[2016-08-27 05:52] LABS: ABNORMAL IP MESSAGE 1; HEMATOCRIT 26.4 % (37.0-47.0); HEMOGLOBIN 8.6 g/dl (12.0-16.0); MEAN CORPUSCULAR HEMOGLOBIN 29.7 pg (29.0-33.0); MEAN CORPUSCULAR HGB CONC 32.6 g/dl (32.0-37.0); MEAN PLATELET VOLUME 11.6 fl (7.4-10.4); PLATELET COUNT 32 10^3/UL (140-415); RED CELL DISTRIBUTION WIDTH 15.9 % (11.5-14.5); WHITE BLOOD COUNT 1.1 10^3/ul (4.8-10.8)
[2016-08-27 06:43] LABS: ALBUMIN 2.7 g/dl (3.3-4.9); POTASSIUM 3.1 mmol/L (3.5-5.1)
[2016-08-27 06:45] LABS: BILIRUBIN,INDIRECT 0.3 mg/dl (0-1.1); BILIRUBIN,TOTAL 0.3 mg/dl (0.2-1.3); CREATININE 0.32 mg/dl (0.44-1.00)
[2016-08-27 06:46] LABS: ALBUMIN/GLOBULIN RATIO 1.35; CALCIUM 8.4 mg/dl (8.4-10.2); TOTAL PROTEIN 4.7 g/dl (6.1-8.1)
[2016-08-27 09:09] VITALS: BP 126/76; RESP 20
[2016-08-27] MEDS: LOSARTAN 25 MG TAB PO SCH (09:27)
[2016-08-27] MEDS: FAMOTIDINE 20 MG TAB PO SCH (09:27)
[2016-08-27 10:00] LABS: EOSINOPHILS # 0.1 10^3/ul (0.0-0.5); LYMPHOCYTES # 0.8 10^3/ul (0.8-2.9); MONOCYTE # 0.2 10^3/ul (0.3-0.9); PLATELET ESTIMATE PLT APPEAR DECREASED
--- NOTE | 2016-08-27 14:02 | PN ---
Date/Time of Note Date/Time of Note DATE: 08/27/16 TIME: 13:56 Assessment/Plan VTE Prophylaxis VTE Prophylaxis Intervention: SCD's Lines/Catheters IV Catheter Type (from Nrs): PICC Line Central line still needed: Yes Assessment/Plan Chief Complaint/Hosp Course ASSESSMENT AND PLAN: 1. History of Burkitt lymphoma. Continue chemotherapy as per oncology. 2. History of renal insufficiency. Stable, continue IV fluids. 3. History of transaminitis. Stable, likely secondary to chemotherapy, follow up liver function tests. 4. Essential hypertension, well controlled. 5. Michelle thyroiditis. The patient has been followed up with dredge pump operator as outpatient. 6. Intractable nausea. Well-controlled Reglan Zofran and Tigan 7. Anemia. Likely postchemotherapy, follow-up chief payroll clerk recommendation for transfusion 8. Hypothyroidism, repleted -For deep venous thrombosis prophylaxis on sequential compression devices. - For gastrointestinal prophylaxis, place the patient on Pepcid. We will continue to monitor patient closely. Further recommendations, management and treatment as per clinical course. Problems: Subjective 24 Hr Interval Summary Free Text/Dictation Patient denies any chest pain or shortness of breath No nausea vomiting diarrhea No abdominal pain Exam/Review of Systems Vital Signs Vitals Vital Signs Date Time Temp Pulse Resp B/P Pulse Ox O2 Delivery O2 Flow Rate FiO2 08/27/16 09:09 98.2 103 20 126/76 97 08/26/16 19:40 Room Air Intake and Output 08/26/16 08/26/16 08/27/16 15:00 23:00 07:00 Intake Total 1300 ml 1340 ml Output Total 1000 ml 900 ml Balance 300 ml 440 ml Exam General: The patient is well-developed, Not in acute distress. HEENT: Atraumatic, normocephalic. The pupils are equal and round . Neck: Supple with full range of motion. Chest: Normal expansion of the thorax during inspiration Lungs: Clear to auscultation bilaterally Heart: Normal S1-S2, Regular rhythm and rate. Abdomen: Soft , nontender, nondistended , bowel sounds are present. Extremities: Normal to inspection, no edema no cyanosis Neurologic: Normal mental status,The patient is awake, alert and oriented . Results Result Diagram: 08/27/1643908/27/16439 Results 24 hrs Laboratory Tests Test 08/27/16 04:40 Alanine Aminotransferase (ALT/SGPT) 135 H Albumin 2.7 L Albumin/Globulin Ratio 1.35 Alkaline Phosphatase 170 H Anion Gap 12 Aspartate Amino Transf (AST/SGOT) 112 H Basophils # 0.0 Basophils % 3.0 H Blood Urea Nitrogen 2 L Calcium Level 8.4 Carbon Dioxide Level 27 Chloride Level 105 Creatinine 0.32 L Direct Bilirubin 0.00 Eosinophils # 0.1 Eosinophils % 9.0 H Globulin 2.00 Glucose Level 92 Hematocrit 26.4 L Hemoglobin 8.6 L Indirect Bilirubin 0.3 Lactate Dehydrogenase 481 Lymphocytes # 0.8 Lymphocytes % 69.0 H Mean Corpuscular Hemoglobin 29.7 Mean Corpuscular Hemoglobin Concent 32.6 Mean Corpuscular Volume 91.0 Mean Platelet Volume 11.6 H Monocytes # 0.2 L Monocytes % 16.0 H Myelocytes # 0.0 Myelocytes % 1.0 H Neutrophils # 0.0 L Neutrophils % 2.0 L Platelet Count 32 L Platelet Estimate PLT APPEAR DECREASED Potassium Level 3.1 L Red Blood Count 2.90 L Red Cell Distribution Width 15.9 H Sodium Level 141 Total Bilirubin 0.3 Total Protein 4.7 L White Blood Count 1.1 #L Medications Medications Current Medications Sodium Chloride 1,000 ml @ 70 mls/hr [id number] IV Last administered on 08/27/16 05:20; Admin Dose 70 MLS/HR; Start 08/18/16 at 11:00 Vincristine Sulfate/Sodium Chloride (Oncovin/NS) 100 ml @ 100 mls/hr Q15D IV Last administered on 08/18/16 21:02; Admin Dose 100 MLS/HR; Start 08/18/16 at 16:00; Stop 09/02/16 at 16:59 Diphenhydramine HCl (Benadryl) 25 mg Q4 PRN IV ALLERGIC REACTION Last administered on 08/25/16 00:10; Admin Dose 25 MG; Start 08/18/16 at 13:30 Meperidine HCl (Demerol) 25 mg Q2 PRN IV PAIN Last administered on 08/20/16 16: 47; Admin Dose 25 MG; Start 08/18/16 at 13:30 Dexamethasone (Decadron) 10 mg Q4 PRN IV ALLERGIC REACTION; Start 08/18/16 at 13:30 Metoclopramide HCl (Reglan) 5 mg Q6H PRN IV NAUSEA Last administered on 21:47; Admin Dose 5 MG; Start 08/18/16 at 13:30 Famotidine (Pepcid) 20 mg DAILY PO Last administered on 08/27/16 09:27; Admin Dose 20 MG; Start 08/19/16 at 09:00 Lorazepam 0.5 mg 0.5 mg Q6H PRN PO ANXIETY Last administered on 08/19/16 01:11 ; Admin Dose 0.5 MG; Start 08/18/16 at 13:30 Ondansetron HCl/ Sodium Chloride (Zofran Inj/NS) 54 ml @ 216 mls/hr Q6H PRN IV NAUSEA AND/OR VOMITING Last administered on 08/19/16 09:31; Admin Dose 216 MLS/HR; Start 08/19/16 at 09:00 Al Hydrox/Mg Hydrox/ Simethicone 30 ml 30 ml Q6H PRN PO GASTROINTESTINAL UPSET ; Start 08/19/16 at 14:30 Ondansetron HCl/ Dextrose (Zofran Inj/D5W) 54 ml @ 108 mls/hr Q6H PRN IV NAUSEA AND/OR VOMITING Last administered on 08/23/16 17:54; Admin Dose 108 MLS/ HR; Start 08/20/16 at 09:30 Metoclopramide HCl (Reglan) 20 mg Q6H PRN IV NAUSEA Last administered on 22:51; Admin Dose 20 MG; Start 08/20/16 at 09:30 Filgrastim (Neupogen) 480 mcg DAILY@17 SC ; Start 09/01/16 at 17:00; Stop at 17:01 Acetaminophen (Tylenol Tab) 650 mg Q6H PRN PO PAIN AND OR ELEVATED TEMP Last administered on 08/22/16 14:44; Admin Dose 650 MG; Start 08/20/16 at 23:30 Morphine Sulfate (morphine) 2 mg Q4H PRN IV SEVERE PAIN LEVEL 7-10 Last administered on 08/23/16 11:42; Admin Dose 2 MG; Start 08/21/16 at 11:00 Hydralazine HCl (Apresoline) 10 mg Q6H PRN IV ELEVATED BLOOD PRESSURE; Start at 13:00 Losartan Potassium 25 mg 25 mg DAILY PO Last administered on 08/27/16 09:27; Admin Dose 25 MG; Start 08/23/16 at 14:00 Acetaminophen (Ofirmev 1000mg/ 100ml Iv) 100 ml @ 400 mls/hr Q6 PRN IVPB HEADACHE Last administered on 08/23/16 20:39; Admin Dose 400 MLS/HR; Start at 20:30 JANETH RAMOS MD Aug 27, 2016 14:01
--- NOTE | 2016-08-27 14:40 | CONS ---
Date/Time of Note Date/Time of Note DATE: 08/27/16 TIME: 14:39 Assessment/Plan Assessment/Plan Chief Complaint/Hosp Course 56 yo female with massive neck mass causing tracheal compression and airway compromise s/p tracheostomy placement. 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 Pt was given cycle 1A and 1Bof R HyperCVAD but had only a partial response to therapy and severe side effects. We have thus changed her chemotherapy regimen. She is now s/p cycle 1B of R-IVAC and is now being admitted for cycle 2A of R-Codox M. Most recent CT neck showed resolution of the mass. . Problems: Additional Assessment/Plan # Burkitt's lymphoma -proceed with cycle 2A R CODOX -M -Rituximab (Rituxan) as follows: Day 1 is 08/18 * Cycle 1: 375 mg/m2 (660mg) IV on Day 1 -Cyclophosphamide (Cytoxan) 800 mg/m2 ( 1415mg) IV once per day on days 1 & 2 -Vincristine (Oncovin) 1.0 mg (dose reduced for neuropathy) days 1 & 15 . next dose due 09/02 -Doxorubicin (Adriamycin) 50 mg/m2 (88mg) IV once on day 1 . dose reduced by 50 % for elevated transaminases -Methotrexate (MTX) 3100mg/m2 (175mg) IV over 1 hour then 900mg/m2 (1590mg) over 23 hours on day 15. will start IVF with 2 amps Na HCo3 prior to MTX infusion since Urine Ph > 7.0. Leucovorin 25mg IV q 4 hours will start 36 hours after MTX starts until MTX level is < 0.05. # Supportive Care and prophylactic meds -Acyclovir 400mg BID on hold for increased LFTS -fluconazole 100mg q day on hold for increased LFTS -Neupogen 300mcg q day. need to continue for 5 days total -Zofran 8mg IV q 6 + Reglan 20mg IV q 6 ordered prn nausea #Expected Pancytopenia -keep Hg> 8 and platelets > 10 -will given 1 unit of PRBCs today # Elevated AST and ALT, likely related to methotrexate. ultrasound shows fatty liver -continue to monitor LFTs, continue to increase.. 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 all steroids should be discontinued for now unless they are part of the chemotherapy regimen -continue to work with physical therapy. # Respiratory compromise -trach has been removed approximately 40 min were spent at patient's bedside and in coordination of her care Consultation Date/Type/Reason Admit Date/Time Aug 18, 2016 at 11:11 Initial Consult Date 08/18/16 Type of Consultation: Hematology Reason for Consultation burkitt's lymphoma Referring Provider: ABISAI BRANCH 24 HR Interval Summary Free Text/Dictation no acute overnight events Exam/Review of Systems Vital Signs Vitals Vital Signs Date Time Temp Pulse Resp B/P Pulse Ox O2 Delivery O2 Flow Rate FiO2 08/27/16 09:09 98.2 103 20 126/76 97 08/26/16 19:40 Room Air Intake and Output 08/26/16 08/26/16 08/27/16 15:00 23:00 07:00 Intake Total 1300 ml 1340 ml Output Total 1000 ml 900 ml Balance 300 ml 440 ml Exam Constitutional: alert, oriented Psych: no complaints Head: atraumatic, normocephalic Eyes: nl conjunctiva ENMT: nl external ears & nose Neck: non-tender, supple Respiratory: clear to auscultation, normal air movement Cardiovascular: regular rate and rhythm Gastrointestinal: soft Musculoskeletal: nl extremities to inspection, nl gait and stance Results Result Diagram: 08/27/1643908/27/16439 Results 24 hrs Laboratory Tests Test 08/27/16 04:40 Alanine Aminotransferase (ALT/SGPT) 135 H Albumin 2.7 L Albumin/Globulin Ratio 1.35 Alkaline Phosphatase 170 H Anion Gap 12 Aspartate Amino Transf (AST/SGOT) 112 H Basophils # 0.0 Basophils % 3.0 H Blood Urea Nitrogen 2 L Calcium Level 8.4 Carbon Dioxide Level 27 Chloride Level 105 Creatinine 0.32 L Direct Bilirubin 0.00 Eosinophils # 0.1 Eosinophils % 9.0 H Globulin 2.00 Glucose Level 92 Hematocrit 26.4 L Hemoglobin 8.6 L Indirect Bilirubin 0.3 Lactate Dehydrogenase 481 Lymphocytes # 0.8 Lymphocytes % 69.0 H Mean Corpuscular Hemoglobin 29.7 Mean Corpuscular Hemoglobin Concent 32.6 Mean Corpuscular Volume 91.0 Mean Platelet Volume 11.6 H Monocytes # 0.2 L Monocytes % 16.0 H Myelocytes # 0.0 Myelocytes % 1.0 H Neutrophils # 0.0 L Neutrophils % 2.0 L Platelet Count 32 L Platelet Estimate PLT APPEAR DECREASED Potassium Level 3.1 L Red Blood Count 2.90 L Red Cell Distribution Width 15.9 H Sodium Level 141 Total Bilirubin 0.3 Total Protein 4.7 L White Blood Count 1.1 #L Medications Medications Current Medications Sodium Chloride 1,000 ml @ 70 mls/hr [id number] IV Last administered on 08/27/16 05:20; Admin Dose 70 MLS/HR; Start 08/18/16 at 11:00 Vincristine Sulfate/Sodium Chloride (Oncovin/NS) 100 ml @ 100 mls/hr Q15D IV Last administered on 08/18/16 21:02; Admin Dose 100 MLS/HR; Start 08/18/16 at 16:00; Stop 09/02/16 at 16:59 Diphenhydramine HCl (Benadryl) 25 mg Q4 PRN IV ALLERGIC REACTION Last administered on 08/25/16 00:10; Admin Dose 25 MG; Start 08/18/16 at 13:30 Meperidine HCl (Demerol) 25 mg Q2 PRN IV PAIN Last administered on 08/20/16 16: 47; Admin Dose 25 MG; Start 08/18/16 at 13:30 Dexamethasone (Decadron) 10 mg Q4 PRN IV ALLERGIC REACTION; Start 08/18/16 at 13:30 Metoclopramide HCl (Reglan) 5 mg Q6H PRN IV NAUSEA Last administered on 21:47; Admin Dose 5 MG; Start 08/18/16 at 13:30 Famotidine (Pepcid) 20 mg DAILY PO Last administered on 08/27/16 09:27; Admin Dose 20 MG; Start 08/19/16 at 09:00 Lorazepam 0.5 mg 0.5 mg Q6H PRN PO ANXIETY Last administered on 08/19/16 01:11 ; Admin Dose 0.5 MG; Start 08/18/16 at 13:30 Ondansetron HCl/ Sodium Chloride (Zofran Inj/NS) 54 ml @ 216 mls/hr Q6H PRN IV NAUSEA AND/OR VOMITING Last administered on 08/19/16 09:31; Admin Dose 216 MLS/HR; Start 08/19/16 at 09:00 Al Hydrox/Mg Hydrox/ Simethicone 30 ml 30 ml Q6H PRN PO GASTROINTESTINAL UPSET ; Start 08/19/16 at 14:30 Ondansetron HCl/ Dextrose (Zofran Inj/D5W) 54 ml @ 108 mls/hr Q6H PRN IV NAUSEA AND/OR VOMITING Last administered on 08/23/16 17:54; Admin Dose 108 MLS/ HR; Start 08/20/16 at 09:30 Metoclopramide HCl (Reglan) 20 mg Q6H PRN IV NAUSEA Last administered on 22:51; Admin Dose 20 MG; Start 08/20/16 at 09:30 Filgrastim (Neupogen) 480 mcg DAILY@17 SC ; Start 09/01/16 at 17:00; Stop at 17:01 Acetaminophen (Tylenol Tab) 650 mg Q6H PRN PO PAIN AND OR ELEVATED TEMP Last administered on 08/22/16 14:44; Admin Dose 650 MG; Start 08/20/16 at 23:30 Morphine Sulfate (morphine) 2 mg Q4H PRN IV SEVERE PAIN LEVEL 7-10 Last administered on 08/23/16 11:42; Admin Dose 2 MG; Start 08/21/16 at 11:00 Hydralazine HCl (Apresoline) 10 mg Q6H PRN IV ELEVATED BLOOD PRESSURE; Start at 13:00 Losartan Potassium 25 mg 25 mg DAILY PO Last administered on 08/27/16 09:27; Admin Dose 25 MG; Start 08/23/16 at 14:00 Acetaminophen 100 ml @ 400 mls/hr Q6 PRN IVPB HEADACHE Last administered on 20:39; Admin Dose 400 MLS/HR; Start 08/23/16 at 20:30 Potassium Chloride (KCl 40 MEQ/250 ML NS) 250 ml @ 62.5 mls/hr ONCE IVPB ; Start 08/27/16 at 15:30; Stop 08/27/16 at 19:29 CHANDRIKA MERLOS M.D. Aug 27, 2016 14:40
[2016-08-27] MEDS ORDERED: POTASSIUM CHLORIDE 250 ML IVPB SCH (15:30)
[2016-08-27] MEDS: METOCLOPRAMIDE 10 MG INJ IV PRN (19:45)
[2016-08-27] MEDS ORDERED: ONDANSETRON 4 MG INJ IV PRN (20:30)
[2016-08-27 21:07] VITALS: BP 120/67; RESP 18
[2016-08-28] MEDS: SOD CHLORIDE 0.9% 1,000 ML IV SCH (05:32)
[2016-08-28 08:14] VITALS: BP 132/75; RESP 18
[2016-08-28] MEDS: FAMOTIDINE 20 MG TAB PO SCH (10:00)
[2016-08-28] MEDS: LOSARTAN 25 MG TAB PO SCH (10:00)
--- NOTE | 2016-08-28 11:41 | PN ---
Date/Time of Note Date/Time of Note DATE: 08/28/16 TIME: 11:41 Assessment/Plan VTE Prophylaxis VTE Prophylaxis Intervention: SCD's Lines/Catheters IV Catheter Type (from Nrs): PICC Line Central line still needed: Yes Urinary Cath still in place: No Assessment/Plan Chief Complaint/Hosp Course ASSESSMENT AND PLAN: 1. History of Burkitt lymphoma. Continue chemotherapy as per oncology. 2. History of renal insufficiency. Stable, continue IV fluids. 3. History of transaminitis. Stable, likely secondary to chemotherapy, follow up liver function tests. 4. Essential hypertension, well controlled. 5. Michelle thyroiditis. The patient has been followed up with [employer] as outpatient. 6. Intractable nausea. Well-controlled Reglan Zofran and Tigan 7. Anemia. Likely postchemotherapy, follow-up tablet repair recommendation for transfusion 8. Hypothyroidism, repleted -For deep venous thrombosis prophylaxis on sequential compression devices. - For gastrointestinal prophylaxis, place the patient on Pepcid. We will continue to monitor patient closely. Further recommendations, management and treatment as per clinical course. Problems: Subjective 24 Hr Interval Summary Free Text/Dictation No acute changes Patient tolerated oral intake No nausea vomiting diarrhea Exam/Review of Systems Vital Signs Vitals Vital Signs Date Time Temp Pulse Resp B/P Pulse Ox O2 Delivery O2 Flow Rate FiO2 08/28/16 08:14 98.3 87 18 132/75 98 08/26/16 19:40 Room Air Intake and Output 08/27/16 08/27/16 08/28/16 15:00 23:00 07:00 Intake Total 2210 ml 1840 ml Output Total 1500 ml Balance 2210 ml 340 ml Exam General: The patient is well-developed, Not in acute distress. HEENT: Atraumatic, normocephalic. The pupils are equal and round . Neck: Supple with full range of motion. Chest: Normal expansion of the thorax during inspiration Lungs: Clear to auscultation bilaterally Heart: Normal S1-S2, Regular rhythm and rate. Abdomen: Soft , nontender, nondistended , bowel sounds are present. Extremities: Normal to inspection, no edema no cyanosis Neurologic: Normal mental status,The patient is awake, alert and oriented . Results Result Diagram: 08/27/1643908/27/16439 Medications Medications Current Medications Sodium Chloride 1,000 ml @ 70 mls/hr [id number] IV Last administered on 08/28/16 05:32; Admin Dose 70 MLS/HR; Start 08/18/16 at 11:00 Vincristine Sulfate/Sodium Chloride (Oncovin/NS) 100 ml @ 100 mls/hr Q15D IV Last administered on 08/18/16 21:02; Admin Dose 100 MLS/HR; Start 08/18/16 at 16:00; Stop 09/02/16 at 16:59 Diphenhydramine HCl (Benadryl) 25 mg Q4 PRN IV ALLERGIC REACTION Last administered on 08/25/16 00:10; Admin Dose 25 MG; Start 08/18/16 at 13:30 Meperidine HCl (Demerol) 25 mg Q2 PRN IV PAIN Last administered on 08/20/16 16: 47; Admin Dose 25 MG; Start 08/18/16 at 13:30 Dexamethasone (Decadron) 10 mg Q4 PRN IV ALLERGIC REACTION; Start 08/18/16 at 13:30 Metoclopramide HCl (Reglan) 5 mg Q6H PRN IV NAUSEA Last administered on 19:45; Admin Dose 5 MG; Start 08/18/16 at 13:30 Famotidine (Pepcid) 20 mg DAILY PO Last administered on 08/28/16 10:00; Admin Dose 20 MG; Start 08/19/16 at 09:00 Lorazepam (Ativan) 0.5 mg Q6H PRN PO ANXIETY Last administered on 08/19/16 01: 11; Admin Dose 0.5 MG; Start 08/18/16 at 13:30 Al Hydrox/Mg Hydrox/ Simethicone 30 ml 30 ml Q6H PRN PO GASTROINTESTINAL UPSET ; Start 08/19/16 at 14:30 Ondansetron HCl/ Dextrose (Zofran Inj/D5W) 54 ml @ 108 mls/hr Q6H PRN IV NAUSEA AND/OR VOMITING Last administered on 08/23/16 17:54; Admin Dose 108 MLS/ HR; Start 08/20/16 at 09:30 Metoclopramide HCl (Reglan) 20 mg Q6H PRN IV NAUSEA Last administered on 22:51; Admin Dose 20 MG; Start 08/20/16 at 09:30 Filgrastim (Neupogen) 480 mcg DAILY@17 SC ; Start 09/01/16 at 17:00; Stop at 17:01 Acetaminophen (Tylenol Tab) 650 mg Q6H PRN PO PAIN AND OR ELEVATED TEMP Last administered on 08/22/16 14:44; Admin Dose 650 MG; Start 08/20/16 at 23:30 Morphine Sulfate (morphine) 2 mg Q4H PRN IV SEVERE PAIN LEVEL 7-10 Last administered on 08/23/16 11:42; Admin Dose 2 MG; Start 08/21/16 at 11:00 Hydralazine HCl (Apresoline) 10 mg Q6H PRN IV ELEVATED BLOOD PRESSURE; Start at 13:00 Losartan Potassium 25 mg 25 mg DAILY PO Last administered on 08/28/16 10:00; Admin Dose 25 MG; Start 08/23/16 at 14:00 Acetaminophen (Ofirmev 1000mg/ 100ml Iv) 100 ml @ 400 mls/hr Q6 PRN IVPB HEADACHE Last administered on 08/23/16 20:39; Admin Dose 400 MLS/HR; Start at 20:30 Ondansetron HCl (Zofran Inj) 4 mg Q4H PRN IV NAUSEA AND/OR VOMITING; Start 08/27 at 20:30 JANETH RAMOS MD Aug 28, 2016 11:41
--- NOTE | 2016-08-28 12:45 | CONS ---
Date/Time of Note Date/Time of Note DATE: 08/28/16 TIME: 12:41 Assessment/Plan Assessment/Plan Chief Complaint/Hosp Course 56 yo female with massive neck mass causing tracheal compression and airway compromise s/p tracheostomy placement. 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 Pt was given cycle 1A and 1Bof R HyperCVAD but had only a partial response to therapy and severe side effects. We have thus changed her chemotherapy regimen. She is now s/p cycle 1B of R-IVAC and is now being admitted for cycle 2A of R-Codox M. Most recent CT neck showed resolution of the mass. . Problems: Additional Assessment/Plan # Burkitt's lymphoma -proceed with cycle 2A R CODOX -M -Rituximab (Rituxan) as follows: Day 1 is 08/18 * Cycle 1: 375 mg/m2 (660mg) IV on Day 1 -Cyclophosphamide (Cytoxan) 800 mg/m2 ( 1415mg) IV once per day on days 1 & 2 -Vincristine (Oncovin) 1.0 mg (dose reduced for neuropathy) days 1 & 15 . next dose due 09/02 -Doxorubicin (Adriamycin) 50 mg/m2 (88mg) IV once on day 1 . dose reduced by 50 % for elevated transaminases -Methotrexate (MTX) 3100mg/m2 (175mg) IV over 1 hour then 900mg/m2 (1590mg) over 23 hours on day 15. will start IVF with 2 amps Na HCo3 prior to MTX infusion since Urine Ph > 7.0. Leucovorin 25mg IV q 4 hours will start 36 hours after MTX starts until MTX level is < 0.05. # Supportive Care and prophylactic meds -Acyclovir 400mg BID on hold for increased LFTS -fluconazole 100mg q day on hold for increased LFTS -Neupogen 300mcg q day. need to continue for 5 days total -Zofran 8mg IV q 6 + Reglan 20mg IV q 6 ordered prn nausea #Expected Pancytopenia -keep Hg> 8 and platelets > 10 -will given 1 unit of PRBCs today # Elevated AST and ALT, likely related to methotrexate. ultrasound shows fatty liver -continue to monitor LFTs, continue to increase.. 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 all steroids should be discontinued for now unless they are part of the chemotherapy regimen -continue to work with physical therapy. # Respiratory compromise -trach has been removed approximately 40 min were spent at patient's bedside and in coordination of her care Consultation Date/Type/Reason Admit Date/Time Aug 18, 2016 at 11:11 Initial Consult Date 08/18/16 Type of Consultation: Hematology Reason for Consultation Burkitt's lymphoma Referring Provider: ABISAI BRANCH 24 HR Interval Summary Free Text/Dictation no acute overnight events. pt doing well. nausea under control Exam/Review of Systems Vital Signs Vitals Vital Signs Date Time Temp Pulse Resp B/P Pulse Ox O2 Delivery O2 Flow Rate FiO2 08/28/16 08:14 98.3 87 18 132/75 98 08/26/16 19:40 Room Air Intake and Output 08/27/16 08/27/16 08/28/16 15:00 23:00 07:00 Intake Total 2210 ml 1840 ml Output Total 1500 ml Balance 2210 ml 340 ml Exam Constitutional: alert, oriented Psych: no complaints Head: atraumatic, normocephalic Eyes: nl conjunctiva ENMT: nl external ears & nose Neck: non-tender, supple Respiratory: clear to auscultation, normal air movement Cardiovascular: regular rate and rhythm Gastrointestinal: soft Musculoskeletal: nl extremities to inspection Results Result Diagram: 08/27/1643908/27/16 044 Medications Medications Current Medications Sodium Chloride 1,000 ml @ 70 mls/hr [id number] IV Last administered on 08/28/16 05:32; Admin Dose 70 MLS/HR; Start 08/18/16 at 11:00 Vincristine Sulfate/Sodium Chloride (Oncovin/NS) 100 ml @ 100 mls/hr Q15D IV Last administered on 08/18/16 21:02; Admin Dose 100 MLS/HR; Start 08/18/16 at 16:00; Stop 09/02/16 at 16:59 Diphenhydramine HCl (Benadryl) 25 mg Q4 PRN IV ALLERGIC REACTION Last administered on 08/25/16 00:10; Admin Dose 25 MG; Start 08/18/16 at 13:30 Meperidine HCl (Demerol) 25 mg Q2 PRN IV PAIN Last administered on 08/20/16 16: 47; Admin Dose 25 MG; Start 08/18/16 at 13:30 Dexamethasone (Decadron) 10 mg Q4 PRN IV ALLERGIC REACTION; Start 08/18/16 at 13:30 Metoclopramide HCl (Reglan) 5 mg Q6H PRN IV NAUSEA Last administered on 19:45; Admin Dose 5 MG; Start 08/18/16 at 13:30 Famotidine (Pepcid) 20 mg DAILY PO Last administered on 08/28/16 10:00; Admin Dose 20 MG; Start 08/19/16 at 09:00 Lorazepam (Ativan) 0.5 mg Q6H PRN PO ANXIETY Last administered on 08/19/16 01: 11; Admin Dose 0.5 MG; Start 08/18/16 at 13:30 Al Hydrox/Mg Hydrox/ Simethicone 30 ml 30 ml Q6H PRN PO GASTROINTESTINAL UPSET ; Start 08/19/16 at 14:30 Ondansetron HCl/ Dextrose (Zofran Inj/D5W) 54 ml @ 108 mls/hr Q6H PRN IV NAUSEA AND/OR VOMITING Last administered on 08/23/16 17:54; Admin Dose 108 MLS/ HR; Start 08/20/16 at 09:30 Metoclopramide HCl (Reglan) 20 mg Q6H PRN IV NAUSEA Last administered on 22:51; Admin Dose 20 MG; Start 08/20/16 at 09:30 Filgrastim (Neupogen) 480 mcg DAILY@17 SC ; Start 09/01/16 at 17:00; Stop at 17:01 Acetaminophen (Tylenol Tab) 650 mg Q6H PRN PO PAIN AND OR ELEVATED TEMP Last administered on 08/22/16 14:44; Admin Dose 650 MG; Start 08/20/16 at 23:30 Morphine Sulfate (morphine) 2 mg Q4H PRN IV SEVERE PAIN LEVEL 7-10 Last administered on 08/23/16 11:42; Admin Dose 2 MG; Start 08/21/16 at 11:00 Hydralazine HCl (Apresoline) 10 mg Q6H PRN IV ELEVATED BLOOD PRESSURE; Start at 13:00 Losartan Potassium 25 mg 25 mg DAILY PO Last administered on 08/28/16 10:00; Admin Dose 25 MG; Start 08/23/16 at 14:00 Acetaminophen (Ofirmev 1000mg/ 100ml Iv) 100 ml @ 400 mls/hr Q6 PRN IVPB HEADACHE Last administered on 08/23/16 20:39; Admin Dose 400 MLS/HR; Start at 20:30 Ondansetron HCl (Zofran Inj) 4 mg Q4H PRN IV NAUSEA AND/OR VOMITING; Start 08/27 at 20:30 CHANDRIKA MERLOS M.D. Aug 28, 2016 12:44
[2016-08-28 13:47] LABS: ADD SCAN DIFF NO
[2016-08-28 13:52] LABS: ABNORMAL IP MESSAGE 1; HEMATOCRIT 25.1 % (37.0-47.0); HEMOGLOBIN 8.5 g/dl (12.0-16.0); MEAN CORPUSCULAR HEMOGLOBIN 30.6 pg (29.0-33.0); MEAN CORPUSCULAR HGB CONC 33.9 g/dl (32.0-37.0); MEAN CORPUSCULAR VOLUME 90.3 fl (82.0-101.0); MEAN PLATELET VOLUME 10.9 fl (7.4-10.4); PLATELET COUNT 56 10^3/UL (140-415); RED BLOOD COUNT 2.78 10^6/ul (4.20-5.40); RED CELL DISTRIBUTION WIDTH 15.7 % (11.5-14.5); WHITE BLOOD COUNT 1.8 10^3/ul (4.8-10.8)
[2016-08-28 14:02] LABS: ALBUMIN 2.9 g/dl (3.3-4.9)
[2016-08-28 14:03] LABS: POTASSIUM 3.3 mmol/L (3.5-5.1)
[2016-08-28 14:05] LABS: ALBUMIN/GLOBULIN RATIO 1.45; BILIRUBIN,INDIRECT 0.3 mg/dl (0-1.1); BILIRUBIN,TOTAL 0.3 mg/dl (0.2-1.3); CREATININE 0.31 mg/dl (0.44-1.00); TOTAL PROTEIN 4.9 g/dl (6.1-8.1)
[2016-08-28 14:06] LABS: CALCIUM 8.2 mg/dl (8.4-10.2)
[2016-08-28 14:26] LABS: EOSINOPHILS # 0.1 10^3/ul (0.0-0.5); LYMPHOCYTES # 0.6 10^3/ul (0.8-2.9); MONOCYTE # 0.7 10^3/ul (0.3-0.9); NEUTROPHIL # 0.1 10^3/ul (1.6-7.5)
[2016-08-28 14:27] LABS: PLATELET ESTIMATE PLT APPEAR DECREASED
[2016-08-28] MEDS ORDERED: VINCRISTINE IV SCH (17:30)
[2016-08-28] MEDS ORDERED: POTASSIUM CHLORIDE 20 MEQ in SOD CHLORIDE 0.9% 100 ML IVPB SCH (17:30)
[2016-08-28] MEDS ORDERED: SOD CHLORIDE 0.9% IV SCH (17:30)
[2016-08-28 19:55] VITALS: BP 145/77; RESP 20
[2016-08-28] MEDS: CALCIUM CARBONATE 500 MG CHEW TAB PO PRN (23:06)
[2016-08-29] MEDS: SOD CHLORIDE 0.9% 1,000 ML IV SCH ×2 (04:25→17:34)
[2016-08-29 05:48] LABS: ADD SCAN DIFF NO
[2016-08-29 05:53] LABS: ABNORMAL IP MESSAGE 1; HEMATOCRIT 24.8 % (37.0-47.0); HEMOGLOBIN 8.1 g/dl (12.0-16.0); MEAN CORPUSCULAR HEMOGLOBIN 30.2 pg (29.0-33.0); MEAN CORPUSCULAR HGB CONC 32.7 g/dl (32.0-37.0); MEAN CORPUSCULAR VOLUME 92.5 fl (82.0-101.0); MEAN PLATELET VOLUME 10.7 fl (7.4-10.4); PLATELET COUNT 35 10^3/UL (140-415); RED BLOOD COUNT 2.68 10^6/ul (4.20-5.40); RED CELL DISTRIBUTION WIDTH 15.8 % (11.5-14.5); WHITE BLOOD COUNT 1.9 10^3/ul (4.8-10.8)
[2016-08-29 06:10] LABS: POTASSIUM 3.2 mmol/L (3.5-5.1)
[2016-08-29 06:13] LABS: CREATININE 0.3 mg/dl (0.44-1.00)
[2016-08-29 06:14] LABS: CALCIUM 8.3 mg/dl (8.4-10.2); MAGNESIUM 1.4 mg/dl (1.7-2.5)
[2016-08-29 07:00] VITALS: BP 142/84; RESP 20
[2016-08-29] MEDS ORDERED: MAGNESIUM SULFATE 2 GM/50 ML 50 ML IVPB ONE (07:00)
[2016-08-29] MEDS ORDERED: POTASSIUM CHLORIDE 250 ML IVPB SCH ×2 (08:00→16:00)
[2016-08-29] MEDS: LOSARTAN 25 MG TAB PO SCH (09:05)
[2016-08-29] MEDS: FAMOTIDINE 20 MG TAB PO SCH (09:05)
[2016-08-29 10:29] LABS: EOSINOPHILS # 0.1 10^3/ul (0.0-0.5); LYMPHOCYTES # 0.6 10^3/ul (0.8-2.9); MONOCYTE # 0.3 10^3/ul (0.3-0.9); MYELOCYTES # 0.2; NEUTROPHIL # 0.3 10^3/ul (1.6-7.5)
--- NOTE | 2016-08-29 11:12 | CONS ---
Date/Time of Note Date/Time of Note DATE: 08/29/16 TIME: 11:10 Assessment/Plan Assessment/Plan Chief Complaint/Hosp Course 56 yo female with massive neck mass causing tracheal compression and airway compromise s/p tracheostomy placement. 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 Pt was given cycle 1A and 1Bof R HyperCVAD but had only a partial response to therapy and severe side effects. We have thus changed her chemotherapy regimen. She is now s/p cycle 1B of R-IVAC and is now being admitted for cycle 2A of R-Codox M. Most recent CT neck showed resolution of the mass. . Problems: Additional Assessment/Plan # Burkitt's lymphoma -proceed with cycle 2A R CODOX -M -Rituximab (Rituxan) as follows: Day 1 is 08/18 * Cycle 1: 375 mg/m2 (660mg) IV on Day 1 -Cyclophosphamide (Cytoxan) 800 mg/m2 ( 1415mg) IV once per day on days 1 & 2 -Vincristine (Oncovin) 1.0 mg (dose reduced for neuropathy) days 1 & 15 . next dose due 09/02 -Doxorubicin (Adriamycin) 50 mg/m2 (88mg) IV once on day 1 . dose reduced by 50 % for elevated transaminases -Methotrexate (MTX) 3100mg/m2 (175mg) IV over 1 hour then 900mg/m2 (1590mg) over 23 hours on day 15. will start IVF with 2 amps Na HCo3 prior to MTX infusion since Urine Ph > 7.0. Leucovorin 25mg IV q 4 hours will start 36 hours after MTX starts until MTX level is < 0.05. # Supportive Care and prophylactic meds -Acyclovir 400mg BID on hold for increased LFTS -fluconazole 100mg q day on hold for increased LFTS -Neupogen 300mcg q day. need to continue for 5 days total -Zofran 8mg IV q 6 + Reglan 20mg IV q 6 ordered prn nausea #Expected Pancytopenia -keep Hg> 8 and platelets > 10 -will given 1 unit of PRBCs today # Elevated AST and ALT, likely related to methotrexate. ultrasound shows fatty liver -continue to monitor LFTs, continue to increase.. 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 all steroids should be discontinued for now unless they are part of the chemotherapy regimen -continue to work with physical therapy. # Respiratory compromise -trach has been removed approximately 40 min were spent at patient's bedside and in coordination of her care Consultation Date/Type/Reason Admit Date/Time Aug 18, 2016 at 11:11 Initial Consult Date 08/18/16 Type of Consultation: Hematology Reason for Consultation burkitt's lymphoma Referring Provider: ABISAI BRANCH 24 HR Interval Summary Free Text/Dictation pt's nausea is improved. no abdominal pain Exam/Review of Systems Vital Signs Vitals Vital Signs Date Time Temp Pulse Resp B/P Pulse Ox O2 Delivery O2 Flow Rate FiO2 08/29/16 07:00 98.9 84 20 142/84 99 08/26/16 19:40 Room Air Intake and Output 08/28/16 08/28/16 08/29/16 15:00 23:00 07:00 Intake Total 2080 ml 1400 ml Balance 2080 ml 1400 ml Exam Constitutional: alert, oriented Psych: no complaints Eyes: nl conjunctiva ENMT: nl external ears & nose Neck: non-tender, supple Respiratory: clear to auscultation, normal air movement Cardiovascular: regular rate and rhythm Gastrointestinal: soft Musculoskeletal: nl extremities to inspection, nl gait and stance Results Result Diagram: 08/29/1642408/29/16 042 Results 24 hrs Laboratory Tests Test 08/28/16 13:25 08/29/16 04:25 Alanine Aminotransferase (ALT/SGPT) 124 H Albumin 2.9 L Albumin/Globulin Ratio 1.45 Alkaline Phosphatase 163 H Anion Gap 9 11 Aspartate Amino Transf (AST/SGOT) 101 H Band Neutrophils % 13.0 H 8.0 H Blood Urea Nitrogen 2 L 3 L Calcium Level 8.2 L 8.3 L Carbon Dioxide Level 28 26 Chloride Level 105 107 Creatinine 0.31 L 0.30 L Direct Bilirubin 0.00 Eosinophils # 0.1 0.1 Eosinophils % 5.0 3.0 Globulin 2.00 Glucose Level 100 91 Hematocrit 25.1 L 24.8 L Hemoglobin 8.5 L 8.1 L Indirect Bilirubin 0.3 Lymphocytes # 0.6 L 0.6 L Lymphocytes % 34.0 29.0 Mean Corpuscular Hemoglobin 30.6 30.2 Mean Corpuscular Hemoglobin Concent 33.9 32.7 Mean Corpuscular Volume 90.3 92.5 Mean Platelet Volume 10.9 H 10.7 H Metamyelocytes # 0.1 0.2 Metamyelocytes % 5.0 H 13.0 H Monocytes # 0.7 0.3 Monocytes % 37.0 H 14.0 H Myelocytes # 0.0 0.2 Myelocytes % 1.0 H 9.0 H Neutrophils # 0.1 L 0.3 L Neutrophils % 5.0 L 18.0 L Platelet Count 56 #L 35 #L Platelet Estimate PLT APPEAR DECREASED Potassium Level 3.3 L 3.2 L Red Blood Count 2.78 L 2.68 L Red Cell Distribution Width 15.7 H 15.8 H Sodium Level 139 141 Total Bilirubin 0.3 Total Protein 4.9 L White Blood Count 1.8 #L 1.9 L Basophils # Basophils % Blast Cells % 4.0 H Blastocytes # 0.1 Differential Comment MANUAL DIFF Magnesium Level 1.4 L Nucleated Red Blood Cells # Nucleated Red Blood Cells % Promyelocytes # 0.0 Promyelocytes % 2.0 H Medications Medications Current Medications Sodium Chloride (NS) 1,000 ml @ 70 mls/hr [id number] IV Last administered on 08/29 04:25; Admin Dose 70 MLS/HR; Start 08/18/16 at 11:00 Diphenhydramine HCl (Benadryl) 25 mg Q4 PRN IV ALLERGIC REACTION Last administered on 08/25/16 00:10; Admin Dose 25 MG; Start 08/18/16 at 13:30 Meperidine HCl (Demerol) 25 mg Q2 PRN IV PAIN Last administered on 08/20/16 16: 47; Admin Dose 25 MG; Start 08/18/16 at 13:30 Dexamethasone (Decadron) 10 mg Q4 PRN IV ALLERGIC REACTION; Start 08/18/16 at 13:30 Metoclopramide HCl (Reglan) 5 mg Q6H PRN IV NAUSEA Last administered on 19:45; Admin Dose 5 MG; Start 08/18/16 at 13:30 Famotidine (Pepcid) 20 mg DAILY PO Last administered on 08/29/16 09:05; Admin Dose 20 MG; Start 08/19/16 at 09:00 Lorazepam (Ativan) 0.5 mg Q6H PRN PO ANXIETY Last administered on 08/19/16 01: 11; Admin Dose 0.5 MG; Start 08/18/16 at 13:30 Al Hydrox/Mg Hydrox/ Simethicone 30 ml 30 ml Q6H PRN PO GASTROINTESTINAL UPSET ; Start 08/19/16 at 14:30 Ondansetron HCl/ Dextrose (Zofran Inj/D5W) 54 ml @ 108 mls/hr Q6H PRN IV NAUSEA AND/OR VOMITING Last administered on 08/23/16 17:54; Admin Dose 108 MLS/ HR; Start 08/20/16 at 09:30 Metoclopramide HCl (Reglan) 20 mg Q6H PRN IV NAUSEA Last administered on 22:51; Admin Dose 20 MG; Start 08/20/16 at 09:30 Filgrastim (Neupogen) 480 mcg DAILY@17 SC ; Start 09/01/16 at 17:00; Stop at 17:01 Acetaminophen (Tylenol Tab) 650 mg Q6H PRN PO PAIN AND OR ELEVATED TEMP Last administered on 08/22/16 14:44; Admin Dose 650 MG; Start 08/20/16 at 23:30 Morphine Sulfate (morphine) 2 mg Q4H PRN IV SEVERE PAIN LEVEL 7-10 Last administered on 08/23/16 11:42; Admin Dose 2 MG; Start 08/21/16 at 11:00 Hydralazine HCl (Apresoline) 10 mg Q6H PRN IV ELEVATED BLOOD PRESSURE; Start at 13:00 Losartan Potassium 25 mg 25 mg DAILY PO Last administered on 08/29/16 09:05; Admin Dose 25 MG; Start 08/23/16 at 14:00 Acetaminophen (Ofirmev 1000mg/ 100ml Iv) 100 ml @ 400 mls/hr Q6 PRN IVPB HEADACHE Last administered on 08/23/16 20:39; Admin Dose 400 MLS/HR; Start at 20:30 Ondansetron HCl 4 mg 4 mg Q4H PRN IV NAUSEA AND/OR VOMITING; Start 08/27/16 at 20:30 Vincristine Sulfate 1 mg/ Sodium Chloride 100 ml @ 100 mls/hr Q14D IV ; Start 09/01/16 at 12:00; Stop 09/01/16 at 12:59 Sodium Bicarbonate 100 meq/Sodium Chloride 1,100 ml @ 100 mls/hr Q11H IV ; Start 08/31/16 at 09:00 Methotrexate 1750 mg/Dextrose 500 ml @ 125 mls/hr ONCE IV ; Start 09/01/16 at 14:00; Stop 09/01/16 at 17:59 Leucovorin Calcium 350 mg/ Sodium Chloride 100 ml @ 50 mls/hr ONCE IV ; Start 09/02/16 at 12:00; Stop 09/02/16 at 13:59 Leucovorin Calcium 25 mg/ Sodium Chloride 50 ml @ 100 mls/hr Q6H PRN IV UNTIL MTX LEVEL < 0.05; Start 09/02/16 at 12:00 Potassium Chloride 250 ml @ 62.5 mls/hr Q4H IVPB Last administered on t 08:08; Admin Dose 62.5 MLS/HR; Start 08/29/16 at 08:00; Stop 08/29/16 at 11 :59 Potassium Chloride (KCl 40 MEQ/250 ML NS) 250 ml @ 62.5 mls/hr Q4H IVPB ; Start 08/29/16 at 16:00; Stop 08/29/16 at 19:59 CHANDRIKA MERLOS M.D. Aug 29, 2016 11:11
--- NOTE | 2016-08-29 11:58 | PN ---
Date/Time of Note Date/Time of Note DATE: 08/29/16 TIME: 11:55 Assessment/Plan VTE Prophylaxis VTE Prophylaxis Intervention: SCD's Lines/Catheters IV Catheter Type (from Nrs): PICC Line Central line still needed: Yes Urinary Cath still in place: No Assessment/Plan Chief Complaint/Hosp Course ASSESSMENT AND PLAN: 1. History of Burkitt lymphoma. Continue chemotherapy as per oncology. 2. History of renal insufficiency. Stable, continue IV fluids. 3. History of transaminitis. Stable, likely secondary to chemotherapy, follow up liver function tests. 4. Essential hypertension, well controlled. 5. Michelle thyroiditis. The patient has been followed up with technical program manager as outpatient. 6. Intractable nausea. Well-controlled Reglan Zofran and Tigan 7. Pancytopenia. Likely postchemotherapy, follow-up mixer wet pour recommendation for transfusion 8. Hypokalemia, repleted, follow up electrolytes in a.m. 9. Thrombocytopenia, likely secondary to chemotherapy, no evidence of bleeding -For deep venous thrombosis prophylaxis on sequential compression devices. - For gastrointestinal prophylaxis, place the patient on Pepcid. We will continue to monitor patient closely. Further recommendations, management and treatment as per clinical course. Problems: Subjective 24 Hr Interval Summary Free Text/Dictation Patient denies of any chest pain or shortness of breath Tolerating oral intake Ambulating with minimal discomfort or gait disturbance Exam/Review of Systems Vital Signs Vitals Vital Signs Date Time Temp Pulse Resp B/P Pulse Ox O2 Delivery O2 Flow Rate FiO2 08/29/16 07:00 98.9 84 20 142/84 99 08/26/16 19:40 Room Air Intake and Output 08/28/16 08/28/16 08/29/16 15:00 23:00 07:00 Intake Total 2080 ml 1400 ml Balance 2080 ml 1400 ml Exam General: The patient is well-developed, Not in acute distress. HEENT: Atraumatic, normocephalic. The pupils are equal and round . Neck: Supple with full range of motion. Chest: Normal expansion of the thorax during inspiration Lungs: Clear to auscultation bilaterally Heart: Normal S1-S2, Regular rhythm and rate. Abdomen: Soft , nontender, nondistended , bowel sounds are present. Extremities: Normal to inspection, no edema no cyanosis Neurologic: Normal mental status,The patient is awake, alert and oriented . Results Result Diagram: 3/10/17 0425 08/29/16 0425 Results 24 hrs Laboratory Tests Test 08/28/16 13:25 08/29/16 04:25 Alanine Aminotransferase (ALT/SGPT) 124 H Albumin 2.9 L Albumin/Globulin Ratio 1.45 Alkaline Phosphatase 163 H Anion Gap 9 11 Aspartate Amino Transf (AST/SGOT) 101 H Band Neutrophils % 13.0 H 8.0 H Blood Urea Nitrogen 2 L 3 L Calcium Level 8.2 L 8.3 L Carbon Dioxide Level 28 26 Chloride Level 105 107 Creatinine 0.31 L 0.30 L Direct Bilirubin 0.00 Eosinophils # 0.1 0.1 Eosinophils % 5.0 3.0 Globulin 2.00 Glucose Level 100 91 Hematocrit 25.1 L 24.8 L Hemoglobin 8.5 L 8.1 L Indirect Bilirubin 0.3 Lymphocytes # 0.6 L 0.6 L Lymphocytes % 34.0 29.0 Mean Corpuscular Hemoglobin 30.6 30.2 Mean Corpuscular Hemoglobin Concent 33.9 32.7 Mean Corpuscular Volume 90.3 92.5 Mean Platelet Volume 10.9 H 10.7 H Metamyelocytes # 0.1 0.2 Metamyelocytes % 5.0 H 13.0 H Monocytes # 0.7 0.3 Monocytes % 37.0 H 14.0 H Myelocytes # 0.0 0.2 Myelocytes % 1.0 H 9.0 H Neutrophils # 0.1 L 0.3 L Neutrophils % 5.0 L 18.0 L Platelet Count 56 #L 35 #L Platelet Estimate PLT APPEAR DECREASED Potassium Level 3.3 L 3.2 L Red Blood Count 2.78 L 2.68 L Red Cell Distribution Width 15.7 H 15.8 H Sodium Level 139 141 Total Bilirubin 0.3 Total Protein 4.9 L White Blood Count 1.8 #L 1.9 L Basophils # Basophils % Blast Cells % 4.0 H Blastocytes # 0.1 Differential Comment MANUAL DIFF Magnesium Level 1.4 L Nucleated Red Blood Cells # Nucleated Red Blood Cells % Promyelocytes # 0.0 Promyelocytes % 2.0 H Medications Medications Current Medications Sodium Chloride (NS) 1,000 ml @ 70 mls/hr [id number] IV Last administered on 08/29t 04:25; Admin Dose 70 MLS/HR; Start 08/18/16 at 11:00 Diphenhydramine HCl (Benadryl) 25 mg Q4 PRN IV ALLERGIC REACTION Last administered on 08/25/16 00:10; Admin Dose 25 MG; Start 08/18/16 at 13:30 Meperidine HCl (Demerol) 25 mg Q2 PRN IV PAIN Last administered on 08/20/16 16: 47; Admin Dose 25 MG; Start 08/18/16 at 13:30 Dexamethasone (Decadron) 10 mg Q4 PRN IV ALLERGIC REACTION; Start 08/18/16 at 13:30 Metoclopramide HCl (Reglan) 5 mg Q6H PRN IV NAUSEA Last administered on 19:45; Admin Dose 5 MG; Start 08/18/16 at 13:30 Famotidine (Pepcid) 20 mg DAILY PO Last administered on 08/29/16 09:05; Admin Dose 20 MG; Start 08/19/16 at 09:00 Lorazepam (Ativan) 0.5 mg Q6H PRN PO ANXIETY Last administered on 08/19/16 01: 11; Admin Dose 0.5 MG; Start 08/18/16 at 13:30 Al Hydrox/Mg Hydrox/ Simethicone 30 ml 30 ml Q6H PRN PO GASTROINTESTINAL UPSET ; Start 08/19/16 at 14:30 Ondansetron HCl/ Dextrose (Zofran Inj/D5W) 54 ml @ 108 mls/hr Q6H PRN IV NAUSEA AND/OR VOMITING Last administered on 08/23/16 17:54; Admin Dose 108 MLS/ HR; Start 08/20/16 at 09:30 Metoclopramide HCl (Reglan) 20 mg Q6H PRN IV NAUSEA Last administered on 22:51; Admin Dose 20 MG; Start 08/20/16 at 09:30 Filgrastim (Neupogen) 480 mcg DAILY@17 SC ; Start 09/01/16 at 17:00; Stop at 17:01 Acetaminophen (Tylenol Tab) 650 mg Q6H PRN PO PAIN AND OR ELEVATED TEMP Last administered on 08/22/16 14:44; Admin Dose 650 MG; Start 08/20/16 at 23:30 Morphine Sulfate (morphine) 2 mg Q4H PRN IV SEVERE PAIN LEVEL 7-10 Last administered on 08/23/16 11:42; Admin Dose 2 MG; Start 08/21/16 at 11:00 Hydralazine HCl (Apresoline) 10 mg Q6H PRN IV ELEVATED BLOOD PRESSURE; Start at 13:00 Losartan Potassium 25 mg 25 mg DAILY PO Last administered on 08/29/16 09:05; Admin Dose 25 MG; Start 08/23/16 at 14:00 Acetaminophen (Ofirmev 1000mg/ 100ml Iv) 100 ml @ 400 mls/hr Q6 PRN IVPB HEADACHE Last administered on 08/23/16 20:39; Admin Dose 400 MLS/HR; Start at 20:30 Ondansetron HCl 4 mg 4 mg Q4H PRN IV NAUSEA AND/OR VOMITING; Start 08/27/16 at 20:30 Vincristine Sulfate 1 mg/ Sodium Chloride 100 ml @ 100 mls/hr Q14D IV ; Start 09/01/16 at 12:00; Stop 09/01/16 at 12:59 Sodium Bicarbonate 100 meq/Sodium Chloride 1,100 ml @ 100 mls/hr Q11H IV ; Start 08/31/16 at 09:00 Methotrexate 1750 mg/Dextrose 500 ml @ 125 mls/hr ONCE IV ; Start 09/01/16 at 14:00; Stop 09/01/16 at 17:59 Leucovorin Calcium 350 mg/ Sodium Chloride 100 ml @ 50 mls/hr ONCE IV ; Start 09/02/16 at 12:00; Stop 09/02/16 at 13:59 Leucovorin Calcium 25 mg/ Sodium Chloride 50 ml @ 100 mls/hr Q6H PRN IV UNTIL MTX LEVEL < 0.05; Start 09/02/16 at 12:00 Potassium Chloride 250 ml @ 62.5 mls/hr Q4H IVPB Last administered on 08:08; Admin Dose 62.5 MLS/HR; Start 08/29/16 at 08:00; Stop 08/29/16 at 11 :59 Potassium Chloride (KCl 40 MEQ/250 ML NS) 250 ml @ 62.5 mls/hr Q4H IVPB ; Start 08/29/16 at 16:00; Stop 08/29/16 at 19:59 JANEHT RAMOS MD Aug 29, 2016 11:58
[2016-08-29] MEDS ORDERED: POTASSIUM CHLORIDE 30 MEQ in SOD CHLORIDE 0.9% 150 ML IVPB ONE (12:00)
[2016-08-29 20:15] VITALS: BP 130/77; RESP 20
[2016-08-29 21:28] VITALS: BP 130/82; PULSE 92; RESP 18
[2016-08-30 05:12] LABS: ABNORMAL IP MESSAGE 1; ADD SCAN DIFF NO; HEMATOCRIT 27.7 % (37.0-47.0); HEMOGLOBIN 8.9 g/dl (12.0-16.0); MEAN CORPUSCULAR HEMOGLOBIN 29.5 pg (29.0-33.0); MEAN CORPUSCULAR HGB CONC 32.1 g/dl (32.0-37.0); MEAN CORPUSCULAR VOLUME 91.7 fl (82.0-101.0); MEAN PLATELET VOLUME 9.8 fl (7.4-10.4); PLATELET COUNT 51 10^3/UL (140-415); RED BLOOD COUNT 3.02 10^6/ul (4.20-5.40); RED CELL DISTRIBUTION WIDTH 15.9 % (11.5-14.5); WHITE BLOOD COUNT 2.8 10^3/ul (4.8-10.8)
[2016-08-30 05:30] LABS: CHLORIDE 105 mmol/L (97-110)
[2016-08-30 05:32] LABS: SODIUM 140 mmol/L (135-144)
[2016-08-30 05:33] LABS: ALKALINE PHOSPHATASE 155 IU/L (42-121); ANION GAP 13 (8-16); ASPARTATE AMINO TRANSFERASE 88 IU/L (15-46); BILIRUBIN,INDIRECT 0.3 mg/dl (0-1.1); BILIRUBIN,TOTAL 0.3 mg/dl (0.2-1.3); CARBON DIOXIDE 26 mmol/L (21-31); CREATININE 0.34 mg/dl (0.44-1.00); GLUCOSE 91 mg/dl (70-220); TOTAL PROTEIN 5.2 g/dl (6.1-8.1)
[2016-08-30 05:34] LABS: ALANINE AMINOTRANSFERASE 114 IU/L (13-69); CALCIUM 8.7 mg/dl (8.4-10.2)
[2016-08-30 05:42] LABS: BLOOD UREA NITROGEN < 2 mg/dl (7-20)
[2016-08-30 07:50] LABS: EOSINOPHILS # 0.2 10^3/ul (0.0-0.5); LYMPHOCYTES # 0.6 10^3/ul (0.8-2.9); MONOCYTE # 0.1 10^3/ul (0.3-0.9); MYELOCYTES # 0.3
[2016-08-30 09:39] VITALS: BP 116/72; RESP 18
[2016-08-30] MEDS: SOD CHLORIDE 0.9% 1,000 ML IV SCH ×2 (09:49→18:16)
[2016-08-30] MEDS: LOSARTAN 25 MG TAB PO SCH (09:49)
[2016-08-30] MEDS: FAMOTIDINE 20 MG TAB PO SCH (09:49)
--- NOTE | 2016-08-30 11:03 | PN ---
Date/Time of Note Date/Time of Note DATE: 08/30/16 TIME: 11:00 Assessment/Plan VTE Prophylaxis VTE Prophylaxis Intervention: SCD's Lines/Catheters IV Catheter Type (from Nrs): PICC Line Central line still needed: Yes Urinary Cath still in place: No Assessment/Plan Chief Complaint/Hosp Course ASSESSMENT AND PLAN: 1. History of Burkitt lymphoma. Continue chemotherapy as per oncology. Plan for 1 more dose of chemotherapy 2. History of renal insufficiency. Stable, continue IV fluids. 3. History of transaminitis. Stable, likely secondary to chemotherapy, follow up liver function tests. 4. Essential hypertension, well controlled. 5. Michelle thyroiditis. The patient has been followed up with director of special education as outpatient. 6. Intractable nausea. Well-controlled Reglan Zofran and Tigan 7. Pancytopenia. Likely postchemotherapy, follow-up profile saw setup operator recommendation for transfusion, stable 8. Hypokalemia, stable, follow-up electrolytes in a.m. 9. Thrombocytopenia, likely secondary to chemotherapy, no evidence of bleeding , improving -For deep venous thrombosis prophylaxis on sequential compression devices. - For gastrointestinal prophylaxis, place the patient on Pepcid. We will continue to monitor patient closely. Further recommendations, management and treatment as per clinical course. Problems: Subjective 24 Hr Interval Summary Free Text/Dictation Patient denies of any chest pain or shortness of breath Tolerating oral intake Ambulating with a walker and minimal assistance Exam/Review of Systems Vital Signs Vitals Vital Signs Date Time Temp Pulse Resp B/P Pulse Ox O2 Delivery O2 Flow Rate FiO2 08/30/16 09:39 98.4 88 18 116/72 98 08/29/16 21:28 Room Air Intake and Output 08/29/16 08/29/16 08/30/16 15:00 23:00 07:00 Intake Total 50 ml 1650 ml 840 ml Output Total 1200 ml Balance 50 ml 450 ml 840 ml Exam General: The patient is well-developed, Not in acute distress. HEENT: Atraumatic, normocephalic. The pupils are equal and round . Neck: Supple with full range of motion. Chest: Normal expansion of the thorax during inspiration Lungs: Clear to auscultation bilaterally Heart: Normal S1-S2, Regular rhythm and rate. Abdomen: Soft , nontender, nondistended , bowel sounds are present. Extremities: Normal to inspection, no edema no cyanosis Neurologic: Normal mental status,The patient is awake, alert and oriented . Results Result Diagram: 08/30/1643308/30/16433 Results 24 hrs Laboratory Tests Test 08/30/16 04:34 Alanine Aminotransferase (ALT/SGPT) 114 H Albumin 3.0 L Alkaline Phosphatase 155 H Anion Gap 13 Aspartate Amino Transf (AST/SGOT) 88 H Band Neutrophils % 21.0 H Blood Urea Nitrogen < 2 L Calcium Level 8.7 Carbon Dioxide Level 26 Chloride Level 105 Creatinine 0.34 L Direct Bilirubin 0.00 Eosinophils # 0.2 Eosinophils % 6.0 Glucose Level 91 Hematocrit 27.7 L Hemoglobin 8.9 L Indirect Bilirubin 0.3 Lymphocytes # 0.6 L Lymphocytes % 23.0 Mean Corpuscular Hemoglobin 29.5 Mean Corpuscular Hemoglobin Concent 32.1 Mean Corpuscular Volume 91.7 Mean Platelet Volume 9.8 Metamyelocytes # 0.0 Metamyelocytes % 1.0 H Monocytes # 0.1 L Monocytes % 4.0 Myelocytes # 0.3 Myelocytes % 9.0 H Neutrophils # 1.0 L Neutrophils % 36.0 L Nucleated Red Blood Cells % 1.0 H Platelet Count 51 #L Potassium Level 4.0 Red Blood Count 3.02 L Red Cell Distribution Width 15.9 H Sodium Level 140 Total Bilirubin 0.3 Total Protein 5.2 L White Blood Count 2.8 #L Medications Medications Current Medications Sodium Chloride (NS) 1,000 ml @ 70 mls/hr [id number] IV Last administered on 08/30 09:49; Admin Dose 70 MLS/HR; Start 08/18/16 at 11:00 Diphenhydramine HCl (Benadryl) 25 mg Q4 PRN IV ALLERGIC REACTION Last administered on 08/25/16 00:10; Admin Dose 25 MG; Start 08/18/16 at 13:30 Meperidine HCl (Demerol) 25 mg Q2 PRN IV PAIN Last administered on 08/20/16 16: 47; Admin Dose 25 MG; Start 08/18/16 at 13:30 Dexamethasone (Decadron) 10 mg Q4 PRN IV ALLERGIC REACTION; Start 08/18/16 at 13:30 Metoclopramide HCl (Reglan) 5 mg Q6H PRN IV NAUSEA Last administered on 19:45; Admin Dose 5 MG; Start 08/18/16 at 13:30 Famotidine (Pepcid) 20 mg DAILY PO Last administered on 08/30/16 09:49; Admin Dose 20 MG; Start 08/19/16 at 09:00 Lorazepam (Ativan) 0.5 mg Q6H PRN PO ANXIETY Last administered on 08/19/16 01: 11; Admin Dose 0.5 MG; Start 08/18/16 at 13:30 Al Hydrox/Mg Hydrox/ Simethicone 30 ml 30 ml Q6H PRN PO GASTROINTESTINAL UPSET ; Start 08/19/16 at 14:30 Ondansetron HCl/ Dextrose (Zofran Inj/D5W) 54 ml @ 108 mls/hr Q6H PRN IV NAUSEA AND/OR VOMITING Last administered on 08/23/16 17:54; Admin Dose 108 MLS/ HR; Start 08/20/16 at 09:30 Metoclopramide HCl (Reglan) 20 mg Q6H PRN IV NAUSEA Last administered on 22:51; Admin Dose 20 MG; Start 08/20/16 at 09:30 Filgrastim (Neupogen) 480 mcg DAILY@17 SC ; Start 09/01/16 at 17:00; Stop at 17:01 Acetaminophen (Tylenol Tab) 650 mg Q6H PRN PO PAIN AND OR ELEVATED TEMP Last administered on 08/22/16 14:44; Admin Dose 650 MG; Start 08/20/16 at 23:30 Morphine Sulfate (morphine) 2 mg Q4H PRN IV SEVERE PAIN LEVEL 7-10 Last administered on 08/23/16 11:42; Admin Dose 2 MG; Start 08/21/16 at 11:00 Hydralazine HCl (Apresoline) 10 mg Q6H PRN IV ELEVATED BLOOD PRESSURE; Start at 13:00 Losartan Potassium 25 mg 25 mg DAILY PO Last administered on 08/30/16 09:49; Admin Dose 25 MG; Start 08/23/16 at 14:00 Acetaminophen (Ofirmev 1000mg/ 100ml Iv) 100 ml @ 400 mls/hr Q6 PRN IVPB HEADACHE Last administered on 08/23/16 20:39; Admin Dose 400 MLS/HR; Start at 20:30 Ondansetron HCl 4 mg 4 mg Q4H PRN IV NAUSEA AND/OR VOMITING; Start 08/27/16 at 20:30 Vincristine Sulfate 1 mg/ Sodium Chloride 100 ml @ 100 mls/hr Q14D IV ; Start 09/01/16 at 12:00; Stop 09/01/16 at 12:59 Sodium Bicarbonate 100 meq/Sodium Chloride 1,100 ml @ 100 mls/hr Q11H IV ; Start 08/31/16 at 09:00 Methotrexate 1750 mg/Dextrose 500 ml @ 125 mls/hr ONCE IV ; Start 09/01/16 at 14:00; Stop 09/01/16 at 17:59 Leucovorin Calcium 350 mg/ Sodium Chloride 100 ml @ 50 mls/hr ONCE IV ; Start 09/02/16 at 12:00; Stop 09/02/16 at 13:59 Leucovorin Calcium/Sodium Chloride (Leucovorin Calcium Inj/NS) 50 ml @ 100 mls/ hr Q6H PRN IV UNTIL MTX LEVEL < 0.05; Start 09/02/16 at 12:00 JANETH RAMOS MD Aug 30, 2016 11:03
--- NOTE | 2016-08-30 11:10 | PN ---
Date/Time of Note Date/Time of Note DATE: 08/30/16 TIME: 11:08 Assessment/Plan VTE Prophylaxis VTE Prophylaxis Intervention: ambulation Lines/Catheters IV [facility]ter Type (from [facility]): PICC Line Central line still needed: Yes Urinary Cath still in place: No Assessment/Plan Assessment/Plan 56 yo female with massive neck mass causing tracheal compression and airway compromise s/p tracheostomy placement. 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 Pt was given cycle 1A and 1Bof R HyperCVAD but had only a partial response to therapy and severe side effects. We have thus changed her chemotherapy regimen. She is now s/p cycle 1B of R-IVAC and is admitted for cycle 2A of R-Codox M. Most recent CT neck showed resolution of the mass. Problems: Additional Assessment/Plan # Burkitt's lymphoma -proceed with completion of cycle 2A R CODOX -M -Rituximab (Rituxan) as follows: Day 1 is 08/18 * Cycle 1: 375 mg/m2 (660mg) IV on Day 1 -Cyclophosphamide (Cytoxan) 800 mg/m2 ( 1415mg) IV once per day on days 1 & 2 -Vincristine (Oncovin) 1.0 mg (dose reduced for neuropathy) days 1 & 15 . next dose due 09/02 -Doxorubicin (Adriamycin) 50 mg/m2 (88mg) IV once on day 1 . dose reduced by 50 % for elevated transaminases -Methotrexate (MTX) 3100mg/m2 (175mg) IV over 1 hour then 900mg/m2 (1590mg) over 23 hours on day 15. will start IVF with 2 amps Na HCo3 prior to MTX infusion since Urine Ph > 7.0. Leucovorin 25mg IV q 4 hours will start 36 hours after MTX starts until MTX level is < 0.05. # Supportive Care and prophylactic meds -Acyclovir 400mg BID on hold for increased LFTS -fluconazole 100mg q day on hold for increased LFTS -Neupogen 300mcg q day. need to continue for 5 days total -Zofran 8mg IV q 6 + Reglan 20mg IV q 6 ordered prn nausea, helping reasonably #Expected Pancytopenia -keep Hg> 8 and platelets > 10 -stable cbc today # Elevated AST and ALT, likely related to methotrexate. ultrasound shows fatty liver -continue to monitor LFTs, continue to increase.. D bili ok -chemotherapy has been dose reduced appropriately #Weakness - secondary to deconditioning Subjective 24 Hr Interval Summary Subjective hx not possible: pt critical Eyes: no complaints ENT: no complaints Respiratory: no complaints Gastrointestinal: nausea Exam/Review of Systems Vital Signs Vitals Vital Signs Date Time Temp Pulse Resp B/P Pulse Ox O2 Delivery O2 Flow Rate FiO2 08/30/16 09:39 98.4 88 18 116/72 98 08/29/16 21:28 Room Air Intake and Output 08/29/16 08/29/16 08/30/16 15:00 23:00 07:00 Intake Total 50 ml 1650 ml 840 ml Output Total 1200 ml Balance 50 ml 450 ml 840 ml Exam trach scar healed Constitutional: alert, oriented Psych: nl mood/affect Eyes: nl conjunctiva, nl sclera Neck: supple Respiratory: normal air movement Gastrointestinal: soft Results Result Diagram: 08/30/16 0434 08/30/16 0434 Results 24 hrs Laboratory Tests Test 08/30/16 04:34 Alanine Aminotransferase (ALT/SGPT) 114 H Albumin 3.0 L Alkaline Phosphatase 155 H Anion Gap 13 Aspartate Amino Transf (AST/SGOT) 88 H Band Neutrophils % 21.0 H Blood Urea Nitrogen < 2 L Calcium Level 8.7 Carbon Dioxide Level 26 Chloride Level 105 Creatinine 0.34 L Direct Bilirubin 0.00 Eosinophils # 0.2 Eosinophils % 6.0 Glucose Level 91 Hematocrit 27.7 L Hemoglobin 8.9 L Indirect Bilirubin 0.3 Lymphocytes # 0.6 L Lymphocytes % 23.0 Mean Corpuscular Hemoglobin 29.5 Mean Corpuscular Hemoglobin Concent 32.1 Mean Corpuscular Volume 91.7 Mean Platelet Volume 9.8 Metamyelocytes # 0.0 Metamyelocytes % 1.0 H Monocytes # 0.1 L Monocytes % 4.0 Myelocytes # 0.3 Myelocytes % 9.0 H Neutrophils # 1.0 L Neutrophils % 36.0 L Nucleated Red Blood Cells % 1.0 H Platelet Count 51 #L Potassium Level 4.0 Red Blood Count 3.02 L Red Cell Distribution Width 15.9 H Sodium Level 140 Total Bilirubin 0.3 Total Protein 5.2 L White Blood Count 2.8 #L Medications Medications Current Medications Sodium Chloride (NS) 1,000 ml @ 70 mls/hr [id number] IV Last administered on 3/11 /17at 09:49; Admin Dose 70 MLS/HR; Start 08/18/16 at 11:00 Diphenhydramine HCl (Benadryl) 25 mg Q4 PRN IV ALLERGIC REACTION Last administered on 08/25/16 00:10; Admin Dose 25 MG; Start 08/18/16 at 13:30 Meperidine HCl (Demerol) 25 mg Q2 PRN IV PAIN Last administered on 08/20/16 16: 47; Admin Dose 25 MG; Start 08/18/16 at 13:30 Dexamethasone (Decadron) 10 mg Q4 PRN IV ALLERGIC REACTION; Start 08/18/16 at 13:30 Metoclopramide HCl (Reglan) 5 mg Q6H PRN IV NAUSEA Last administered on 19:45; Admin Dose 5 MG; Start 08/18/16 at 13:30 Famotidine (Pepcid) 20 mg DAILY PO Last administered on 08/30/16 09:49; Admin Dose 20 MG; Start 08/19/16 at 09:00 Lorazepam (Ativan) 0.5 mg Q6H PRN PO ANXIETY Last administered on 08/19/16 01: 11; Admin Dose 0.5 MG; Start 08/18/16 at 13:30 Al Hydrox/Mg Hydrox/ Simethicone 30 ml 30 ml Q6H PRN PO GASTROINTESTINAL UPSET ; Start 08/19/16 at 14:30 Ondansetron HCl/ Dextrose (Zofran Inj/D5W) 54 ml @ 108 mls/hr Q6H PRN IV NAUSEA AND/OR VOMITING Last administered on 08/23/16 17:54; Admin Dose 108 MLS/ HR; Start 08/20/16 at 09:30 Metoclopramide HCl (Reglan) 20 mg Q6H PRN IV NAUSEA Last administered on 22:51; Admin Dose 20 MG; Start 08/20/16 at 09:30 Filgrastim (Neupogen) 480 mcg DAILY@17 SC ; Start 09/01/16 at 17:00; Stop at 17:01 Acetaminophen (Tylenol Tab) 650 mg Q6H PRN PO PAIN AND OR ELEVATED TEMP Last administered on 08/22/16 14:44; Admin Dose 650 MG; Start 08/20/16 at 23:30 Morphine Sulfate (morphine) 2 mg Q4H PRN IV SEVERE PAIN LEVEL 7-10 Last administered on 08/23/16 11:42; Admin Dose 2 MG; Start 08/21/16 at 11:00 Hydralazine HCl (Apresoline) 10 mg Q6H PRN IV ELEVATED BLOOD PRESSURE; Start at 13:00 Losartan Potassium 25 mg 25 mg DAILY PO Last administered on 08/30/16 09:49; Admin Dose 25 MG; Start 08/23/16 at 14:00 Acetaminophen (Ofirmev 1000mg/ 100ml Iv) 100 ml @ 400 mls/hr Q6 PRN IVPB HEADACHE Last administered on 08/23/16 20:39; Admin Dose 400 MLS/HR; Start at 20:30 Ondansetron HCl 4 mg 4 mg Q4H PRN IV NAUSEA AND/OR VOMITING; Start 08/27/16 at 20:30 Vincristine Sulfate 1 mg/ Sodium Chloride 100 ml @ 100 mls/hr Q14D IV ; Start 09/01/16 at 12:00; Stop 09/01/16 at 12:59 Sodium Bicarbonate 100 meq/Sodium Chloride 1,100 ml @ 100 mls/hr Q11H IV ; Start 08/31/16 at 09:00 Methotrexate 1750 mg/Dextrose 500 ml @ 125 mls/hr ONCE IV ; Start 09/01/16 at 14:00; Stop 09/01/16 at 17:59 Leucovorin Calcium 350 mg/ Sodium Chloride 100 ml @ 50 mls/hr ONCE IV ; Start 09/02/16 at 12:00; Stop 09/02/16 at 13:59 Leucovorin Calcium/Sodium Chloride (Leucovorin Calcium Inj/NS) 50 ml @ 100 mls/ hr Q6H PRN IV UNTIL MTX LEVEL < 0.05; Start 09/02/16 at 12:00 SUAD FRANCO MD Aug 30, 2016 11:10
[2016-08-30 13:47] LABS: ANISOCYTOSIS 2+; PLATELET ESTIMATE PLT APPEAR DECREASED; POLYCHROMASIA 1+
[2016-08-30 19:00] VITALS: BP 116/77; RESP 18
[2016-08-30 21:47] VITALS: BP 128/70; PULSE 80; RESP 18
[2016-08-30 23:42] LABS: ADD UMIC NO; URINE BILIRUBIN (Dip) NEGATIVE (NEGATIVE); URINE BLOOD (Dip) NEGATIVE (NEGATIVE); URINE COLOR LT. YELLOW (YELLOW); URINE GLUCOSE (Dip) NEGATIVE (NEGATIVE); URINE KETONES (Dip) NEGATIVE (NEGATIVE); URINE LEUKOCYTE ESTERASE (Dip) NEGATIVE (NEGATIVE); URINE NITRITE (Dip) NEGATIVE (NEGATIVE); URINE TOTAL PROTEIN (Dip) NEGATIVE (NEGATIVE); URINE UROBILINOGEN (Dip) 0.2 E.U./dL (0.1-1.0)
[2016-08-31] MEDS: SODIUM BICARBONATE (IV ADD) 100 MEQ in SOD CHLORIDE 0.9% 1,000 ML IV SCH ×2 (00:20→10:35)
[2016-08-31] MEDS: CALCIUM CARBONATE 500 MG CHEW TAB PO PRN (00:57)
[2016-08-31] MEDS: DIPHENHYDRAMINE 50 MG INJ IV PRN (01:25)
[2016-08-31 08:28] VITALS: BP 132/73; RESP 20
[2016-08-31] MEDS: FAMOTIDINE 20 MG TAB PO SCH (10:36)
[2016-08-31] MEDS: LOSARTAN 25 MG TAB PO SCH (10:36)
--- NOTE | 2016-08-31 11:49 | PN ---
Date/Time of Note Date/Time of Note DATE: 08/31/16 TIME: 11:43 Assessment/Plan VTE Prophylaxis VTE Prophylaxis Intervention: other Lines/Catheters [facility] P[facility] Line Central line still needed: Yes Urinary Cath still in place: No Assessment/Plan Chief Complaint/Hosp Course ASSESSMENT AND PLAN: 1. History of Burkitt lymphoma. Continue chemotherapy as per oncology. Plan for 1 more dose of chemotherapy tomorrow 2. History of renal insufficiency. Stable, continue IV fluids. 3. History of transaminitis. Stable, likely secondary to chemotherapy, follow up liver function tests. 4. Essential hypertension, well controlled. 5. Michelle thyroiditis. The patient has been followed up with assistant hall director as outpatient. 6. Intractable nausea. Well-controlled Reglan Zofran and Tigan 7. Pancytopenia. 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 Hypokalemia, stable, follow-up electrolytes in a.m. 9. Thrombocytopenia, likely secondary to chemotherapy, no evidence of bleeding , improving -For deep venous thrombosis prophylaxis on sequential compression devices. - For gastrointestinal prophylaxis, place the patient on Pepcid. We will continue to monitor patient closely. Further recommendations, management and treatment as per clinical course. Problems: Subjective 24 Hr Interval Summary Free Text/Dictation Denies any chest pain or shortness of breath No nausea vomiting diarrhea Tolerating oral intake Exam/Review of Systems Vital Signs Vitals Vital Signs Date Time Temp Pulse Resp B/P Pulse Ox O2 Delivery O2 Flow Rate FiO2 08/31/16 08:28 98.3 94 20 132/73 93 08/30/16 21:47 Room Air Intake and Output 08/30/16 08/30/16 08/31/16 15:00 23:00 07:00 Intake Total 550 ml 1800 ml 1340 ml Output Total 1050 ml 700 ml 1100 ml Balance -500 ml 1100 ml 240 ml Exam General: The patient is well-developed, Not in acute distress. Evidence of hair loss HEENT: Atraumatic, normocephalic. The pupils are equal and round . Neck: Supple with full range of motion. Chest: Normal expansion of the thorax during inspiration Lungs: Clear to auscultation bilaterally Heart: Normal S1-S2, Regular rhythm and rate. Abdomen: Soft , nontender, nondistended , bowel sounds are present. Extremities: Normal to inspection, no edema no cyanosis Neurologic: Normal mental status,The patient is awake, alert and oriented . Results Result Diagram: 08/30/1643308/30/16 043 Results 24 hrs Laboratory Tests Test 08/30/16 22:55 Urine Bilirubin NEGATIVE Urine Clarity CLEAR Urine Color LT. YELLOW Urine Glucose NEGATIVE Urine Hemoglobin NEGATIVE Urine Ketones NEGATIVE Urine Leukocyte Esterase NEGATIVE Urine Nitrite NEGATIVE Urine Specific [place] 1.020 Urine Total Protein NEGATIVE Urine Urobilinogen 0.2 E.U./dL Urine pH 7.5 Medications Medications Current Medications Sodium Chloride (NS) 1,000 ml @ 70 mls/hr [id number] IV Last administered on 08/30 18:16; Admin Dose 70 MLS/HR; Start 08/18/16 at 11:00 Diphenhydramine HCl (Benadryl) 25 mg Q4 PRN IV ALLERGIC REACTION Last administered on 08/31/16 01:25; Admin Dose 25 MG; Start 08/18/16 at 13:30 Meperidine HCl (Demerol) 25 mg Q2 PRN IV PAIN Last administered on 08/20/16 16: 47; Admin Dose 25 MG; Start 08/18/16 at 13:30 Dexamethasone (Decadron) 10 mg Q4 PRN IV ALLERGIC REACTION; Start 08/18/16 at 13:30 Metoclopramide HCl (Reglan) 5 mg Q6H PRN IV NAUSEA Last administered on 19:45; Admin Dose 5 MG; Start 08/18/16 at 13:30 Famotidine (Pepcid) 20 mg DAILY PO Last administered on 08/31/16 10:36; Admin Dose 20 MG; Start 08/19/16 at 09:00 Lorazepam (Ativan) 0.5 mg Q6H PRN PO ANXIETY Last administered on 08/19/16 01: 11; Admin Dose 0.5 MG; Start 08/18/16 at 13:30 Al Hydrox/Mg Hydrox/ Simethicone 30 ml 30 ml Q6H PRN PO GASTROINTESTINAL UPSET ; Start 08/19/16 at 14:30 Ondansetron HCl/ Dextrose (Zofran Inj/D5W) 54 ml @ 108 mls/hr Q6H PRN IV NAUSEA AND/OR VOMITING Last administered on 08/23/16 17:54; Admin Dose 108 MLS/ HR; Start 08/20/16 at 09:30 Metoclopramide HCl (Reglan) 20 mg Q6H PRN IV NAUSEA Last administered on 22:51; Admin Dose 20 MG; Start 08/20/16 at 09:30 Filgrastim (Neupogen) 480 mcg DAILY@17 SC ; Start 09/01/16 at 17:00; Stop at 17:01 Acetaminophen (Tylenol Tab) 650 mg Q6H PRN PO PAIN AND OR ELEVATED TEMP Last administered on 08/22/16 14:44; Admin Dose 650 MG; Start 08/20/16 at 23:30 Morphine Sulfate (morphine) 2 mg Q4H PRN IV SEVERE PAIN LEVEL 7-10 Last administered on 08/23/16 11:42; Admin Dose 2 MG; Start 08/21/16 at 11:00 Hydralazine HCl (Apresoline) 10 mg Q6H PRN IV ELEVATED BLOOD PRESSURE; Start at 13:00 Losartan Potassium 25 mg 25 mg DAILY PO Last administered on 08/31/16 10:36; Admin Dose 25 MG; Start 08/23/16 at 14:00 Acetaminophen (Ofirmev 1000mg/ 100ml Iv) 100 ml @ 400 mls/hr Q6 PRN IVPB HEADACHE Last administered on 08/23/16 20:39; Admin Dose 400 MLS/HR; Start at 20:30 Ondansetron HCl 4 mg 4 mg Q4H PRN IV NAUSEA AND/OR VOMITING; Start 08/27/16 at 20:30 Vincristine Sulfate 1 mg/ Sodium Chloride 100 ml @ 100 mls/hr Q14D IV ; Start 09/01/16 at 12:00; Stop 09/01/16 at 12:59 Sodium Bicarbonate 100 meq/Sodium Chloride 1,100 ml @ 100 mls/hr Q11H IV Last administered on 08/31/16 10:35; Admin Dose 100 MLS/HR; Start 08/31/16 at 09:00 Methotrexate 1750 mg/Dextrose 500 ml @ 125 mls/hr ONCE IV ; Start 09/01/16 at 14:00; Stop 09/01/16 at 17:59 Leucovorin Calcium 350 mg/ Sodium Chloride 100 ml @ 50 mls/hr ONCE IV ; Start 09/02/16 at 14:00; Stop 09/02/16 at 15:59 Leucovorin Calcium/Sodium Chloride (Leucovorin Calcium Inj/NS) 50 ml @ 100 mls/ hr Q6H IV ; Start 09/02/16 at 20:00 JANETH RAMOS MD Aug 31, 2016 11:48
[2016-08-31] MEDS: SOD CHLORIDE 0.9% 1,000 ML IV SCH (13:36)
--- NOTE | 2016-08-31 15:34 | PN ---
Date/Time of Note Date/Time of Note DATE: 08/31/16 TIME: 15:33 Assessment/Plan VTE Prophylaxis VTE Prophylaxis Intervention: ambulation Lines/Catheters [facility] ([facility] PICC Line Central line still needed: Yes Urinary Cath still in place: No Assessment/Plan Assessment/Plan 56 yo female with massive neck mass causing tracheal compression and airway compromise s/p tracheostomy placement. 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 Pt was given cycle 1A and 1Bof R HyperCVAD but had only a partial response to therapy and severe side effects. We have thus changed her chemotherapy regimen. She is now s/p cycle 1B of R-IVAC and is admitted for cycle 2A of R-Codox M. Most recent CT neck showed resolution of the mass. Problems: Additional Assessment/Plan # Burkitt's lymphoma -proceed with completion of cycle 2A R CODOX -M -Rituximab (Rituxan) as follows: Day 1 is 08/18 * Cycle 1: 375 mg/m2 (660mg) IV on Day 1 -Cyclophosphamide (Cytoxan) 800 mg/m2 ( 1415mg) IV once per day on days 1 & 2 -Vincristine (Oncovin) 1.0 mg (dose reduced for neuropathy) days 1 & 15 . next dose due 09/02 -Doxorubicin (Adriamycin) 50 mg/m2 (88mg) IV once on day 1 . dose reduced by 50 % for elevated transaminases -Methotrexate (MTX) 3100mg/m2 (175mg) IV over 1 hour then 900mg/m2 (1590mg) over 23 hours on day 15. will start IVF with 2 amps Na HCo3 prior to MTX infusion since Urine Ph > 7.0. Leucovorin 25mg IV q 4 hours will start 36 hours after MTX starts until MTX level is < 0.05. # Supportive Care and prophylactic meds -Acyclovir 400mg BID on hold for increased LFTS -fluconazole 100mg q day on hold for increased LFTS -Neupogen 300mcg q day. need to continue for 5 days total -Zofran 8mg IV q 6 + Reglan 20mg IV q 6 ordered prn nausea, helping reasonably with no new symptoms. #Expected Pancytopenia -keep Hg> 8 and platelets > 10 -stable cbc and ordered for tomorrow # Elevated AST and ALT, likely related to methotrexate. ultrasound shows fatty liver -continue to monitor LFTs, continue to increase.. D bili ok -chemotherapy has been dose reduced appropriately #Weakness - secondary to deconditioning Subjective 24 Hr Interval Summary Constitutional: no complaints Eyes: no complaints Respiratory: no complaints Cardiovascular: no complaints Exam/Review of Systems Vital Signs Vitals Vital Signs Date Time Temp Pulse Resp B/P Pulse Ox O2 Delivery O2 Flow Rate FiO2 08/31/16 08:28 98.3 94 20 132/73 93 08/30/16 21:47 Room Air Intake and Output 08/30/16 08/30/16 08/31/16 15:00 23:00 07:00 Intake Total 550 ml 1800 ml 1340 ml Output Total 1050 ml 700 ml 1100 ml Balance -500 ml 1100 ml 240 ml Exam Constitutional: alert, oriented Psych: nl mood/affect Eyes: nl conjunctiva Neck: supple Respiratory: normal air movement Gastrointestinal: soft Results Result Diagram: 08/30/16 0434 08/30/16 0434 Results 24 hrs Laboratory Tests Test 08/30/16 22:55 Urine Bilirubin NEGATIVE Urine Clarity CLEAR Urine Color LT. YELLOW Urine Glucose NEGATIVE Urine Hemoglobin NEGATIVE Urine Ketones NEGATIVE Urine Leukocyte Esterase NEGATIVE Urine Nitrite NEGATIVE Urine Specific [place] 1.020 Urine Total Protein NEGATIVE Urine Urobilinogen 0.2 E.U./dL Urine pH 7.5 Medications Medications Current Medications Sodium Chloride (NS) 1,000 ml @ 70 mls/hr [id number] IV Last administered on 08/30 18:16; Admin Dose 70 MLS/HR; Start 08/18/16 at 11:00 Diphenhydramine HCl (Benadryl) 25 mg Q4 PRN IV ALLERGIC REACTION Last administered on 08/31/16 01:25; Admin Dose 25 MG; Start 08/18/16 at 13:30 Meperidine HCl (Demerol) 25 mg Q2 PRN IV PAIN Last administered on 08/20/16 16: 47; Admin Dose 25 MG; Start 08/18/16 at 13:30 Dexamethasone (Decadron) 10 mg Q4 PRN IV ALLERGIC REACTION; Start 08/18/16 at 13:30 Metoclopramide HCl (Reglan) 5 mg Q6H PRN IV NAUSEA Last administered on 19:45; Admin Dose 5 MG; Start 08/18/16 at 13:30 Famotidine (Pepcid) 20 mg DAILY PO Last administered on 08/31/16 10:36; Admin Dose 20 MG; Start 08/19/16 at 09:00 Lorazepam (Ativan) 0.5 mg Q6H PRN PO ANXIETY Last administered on 08/19/16 01: 11; Admin Dose 0.5 MG; Start 08/18/16 at 13:30 Al Hydrox/Mg Hydrox/ Simethicone 30 ml 30 ml Q6H PRN PO GASTROINTESTINAL UPSET ; Start 08/19/16 at 14:30 Ondansetron HCl/ Dextrose (Zofran Inj/D5W) 54 ml @ 108 mls/hr Q6H PRN IV NAUSEA AND/OR VOMITING Last administered on 08/23/16 17:54; Admin Dose 108 MLS/ HR; Start 08/20/16 at 09:30 Metoclopramide HCl (Reglan) 20 mg Q6H PRN IV NAUSEA Last administered on 22:51; Admin Dose 20 MG; Start 08/20/16 at 09:30 Filgrastim (Neupogen) 480 mcg DAILY@17 SC ; Start 09/01/16 at 17:00; Stop at 17:01 Acetaminophen (Tylenol Tab) 650 mg Q6H PRN PO PAIN AND OR ELEVATED TEMP Last administered on 08/22/16 14:44; Admin Dose 650 MG; Start 08/20/16 at 23:30 Morphine Sulfate (morphine) 2 mg Q4H PRN IV SEVERE PAIN LEVEL 7-10 Last administered on 08/23/16 11:42; Admin Dose 2 MG; Start 08/21/16 at 11:00 Hydralazine HCl (Apresoline) 10 mg Q6H PRN IV ELEVATED BLOOD PRESSURE; Start at 13:00 Losartan Potassium 25 mg 25 mg DAILY PO Last administered on 08/31/16 10:36; Admin Dose 25 MG; Start 08/23/16 at 14:00 Acetaminophen (Ofirmev 1000mg/ 100ml Iv) 100 ml @ 400 mls/hr Q6 PRN IVPB HEADACHE Last administered on 08/23/16 20:39; Admin Dose 400 MLS/HR; Start at 20:30 Ondansetron HCl 4 mg 4 mg Q4H PRN IV NAUSEA AND/OR VOMITING; Start 08/27/16 at 20:30 Vincristine Sulfate 1 mg/ Sodium Chloride 100 ml @ 100 mls/hr Q14D IV ; Start 09/01/16 at 12:00; Stop 09/01/16 at 12:59 Sodium Bicarbonate 100 meq/Sodium Chloride 1,100 ml @ 100 mls/hr Q11H IV Last administered on 08/31/16t 10:35; Admin Dose 100 MLS/HR; Start 08/31/16 at 09:00 Methotrexate 1750 mg/Dextrose 500 ml @ 125 mls/hr ONCE IV ; Start 09/01/16 at 14:00; Stop 09/01/16 at 17:59 Leucovorin Calcium 350 mg/ Sodium Chloride 100 ml @ 50 mls/hr ONCE IV ; Start 09/02/16 at 14:00; Stop 09/02/16 at 15:59 Leucovorin Calcium/Sodium Chloride (Leucovorin Calcium Inj/NS) 50 ml @ 100 mls/ hr Q6H IV ; Start 09/02/16 at 20:00 SUAD FRANCO MD Aug 31, 2016 15:34
[2016-08-31] MEDS ORDERED: COLLAGENASE 30 GM TUBE TOP SCH (18:00)
[2016-08-31 18:13] LABS: ADD UMIC NO; URINE BILIRUBIN (Dip) NEGATIVE (NEGATIVE); URINE BLOOD (Dip) NEGATIVE (NEGATIVE); URINE COLOR LT. YELLOW (YELLOW); URINE GLUCOSE (Dip) NEGATIVE (NEGATIVE); URINE KETONES (Dip) NEGATIVE (NEGATIVE); URINE LEUKOCYTE ESTERASE (Dip) NEGATIVE (NEGATIVE); URINE NITRITE (Dip) NEGATIVE (NEGATIVE); URINE TOTAL PROTEIN (Dip) NEGATIVE (NEGATIVE); URINE UROBILINOGEN (Dip) 0.2 E.U./dL (0.1-1.0)
[2016-08-31 20:30] VITALS: PULSE 106
[2016-08-31 20:48] VITALS: BP 130/65; RESP 20
[2016-08-31] MEDS ORDERED: SILVER SULFADIAZINE 1% 25 GM CR TOP SCH (21:00)
[2016-09-01] VITALS (9 sets, daily range): BP systolic 106–121; BP diastolic 55–72; PULSE 82–92; RESP 18–20
[2016-09-01] MEDS: SODIUM BICARBONATE (IV ADD) 100 MEQ in SOD CHLORIDE 0.9% 1,000 ML IV SCH ×2 (00:20→13:31)
[2016-09-01 01:29] LABS: ADD UMIC NO; URINE BILIRUBIN (Dip) NEGATIVE (NEGATIVE); URINE BLOOD (Dip) NEGATIVE (NEGATIVE); URINE COLOR LT. YELLOW (YELLOW); URINE GLUCOSE (Dip) NEGATIVE (NEGATIVE); URINE KETONES (Dip) NEGATIVE (NEGATIVE); URINE LEUKOCYTE ESTERASE (Dip) NEGATIVE (NEGATIVE); URINE NITRITE (Dip) NEGATIVE (NEGATIVE); URINE TOTAL PROTEIN (Dip) NEGATIVE (NEGATIVE); URINE UROBILINOGEN (Dip) 0.2 E.U./dL (0.1-1.0)
[2016-09-01] MEDS: SOD CHLORIDE 0.9% 1,000 ML IV SCH ×2 (03:54→18:12)
[2016-09-01 05:30] LABS: ADD SCAN DIFF NO
[2016-09-01 05:33] LABS: ABNORMAL IP MESSAGE 1; BASOPHILS % 0.2 % (0.0-2.0); EOSINOPHILS # 0.1 10^3/ul (0.0-0.5); EOSINOPHILS % 1.2 % (0.0-7.0); HEMATOCRIT 25.8 % (37.0-47.0); HEMOGLOBIN 8.3 g/dl (12.0-16.0); LYMPHOCYTES % 18.6 % (15.0-51.0); MEAN CORPUSCULAR HGB CONC 32.2 g/dl (32.0-37.0); MEAN CORPUSCULAR VOLUME 93.1 fl (82.0-101.0); MEAN PLATELET VOLUME 11.4 fl (7.4-10.4); MONOCYTE # 0.6 10^3/ul (0.3-0.9); MONOCYTES % 12.1 % (0.0-11.0); NEUTROPHIL # 3.2 10^3/ul (1.6-7.5); PLATELET COUNT 68 10^3/UL (140-415); RED BLOOD COUNT 2.77 10^6/ul (4.20-5.40); RED CELL DISTRIBUTION WIDTH 16.2 % (11.5-14.5); WHITE BLOOD COUNT 5.1 10^3/ul (4.8-10.8)
[2016-09-01 05:52] LABS: POTASSIUM 3.5 mmol/L (3.5-5.1)
[2016-09-01 05:55] LABS: CREATININE 0.38 mg/dl (0.44-1.00)
[2016-09-01 05:56] LABS: CALCIUM 8.2 mg/dl (8.4-10.2)
[2016-09-01] MEDS: LOSARTAN 25 MG TAB PO SCH (09:12)
[2016-09-01] MEDS: FAMOTIDINE 20 MG TAB PO SCH (09:12)
--- NOTE | 2016-09-01 10:54 | PN ---
Date/Time of Note Date/Time of Note DATE: 09/01/16 TIME: 10:51 Assessment/Plan VTE Prophylaxis VTE Prophylaxis Intervention: SCD's Lines/Catheters IV Catheter Type (from Nrs): PICC Line Central line still needed: Yes Urinary Cath still in place: No Assessment/Plan Chief Complaint/Hosp Course ASSESSMENT AND PLAN: 1. History of Burkitt lymphoma. Continue chemotherapy as per oncology. Plan for 1 more dose of chemotherapy tomorrow 2. History of renal insufficiency. Stable, continue IV fluids. 3. History of transaminitis. Stable, likely secondary to chemotherapy, follow up liver function tests. 4. Essential hypertension, well controlled. 5. Michelle thyroiditis. 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 6. Intractable nausea. Well-controlled Reglan Zofran and Tigan 7. Pancytopenia. Likely postchemotherapy, follow-up commission for the blind director recommendation for transfusion, stable 8. Hypokalemia, stable, follow-up electrolytes in a.m. 9. Thrombocytopenia, likely secondary to chemotherapy, no evidence of bleeding , improving -For deep venous thrombosis prophylaxis on sequential compression devices. - For gastrointestinal prophylaxis, place the patient on Pepcid. We will continue to monitor patient closely. Further recommendations, management and treatment as per clinical course. Problems: Subjective 24 Hr Interval Summary Free Text/Dictation Patient complains of having neck discomfort and pain Denies of any chest pain or shortness of breath Tolerating oral intake Exam/Review of Systems Vital Signs Vitals Vital Signs Date Time Temp Pulse Resp B/P Pulse Ox O2 Delivery O2 Flow Rate FiO2 09/01/16 08:12 97.8 97 19 106/64 97 08/30/16 21:47 Room Air Intake and Output 08/31/16 08/31/16 09/01/16 15:00 23:00 07:00 Intake Total 2000 ml Balance 2000 ml Exam General: The patient is well-developed, Not in acute distress. HEENT: Atraumatic, normocephalic. The pupils are equal and round . Neck: Swelling in anterior region of the neck by thyroid area Chest: Normal expansion of the thorax during inspiration Lungs: Clear to auscultation bilaterally Heart: Normal S1-S2, Regular rhythm and rate. Abdomen: Soft , nontender, nondistended , bowel sounds are present. Extremities: Normal to inspection, no edema no cyanosis Neurologic: Normal mental status,The patient is awake, alert and oriented . Results Result Diagram: 09/01/16 0423 09/01/16 0423 Results 24 hrs Laboratory Tests Test 08/31/16 16:45 09/01/16 00:51 09/01/16 04:23 Urine Bilirubin NEGATIVE NEGATIVE Urine Clarity CLEAR CLEAR Urine Color LT. YELLOW LT. YELLOW Urine Glucose NEGATIVE NEGATIVE Urine Hemoglobin NEGATIVE NEGATIVE Urine Ketones NEGATIVE NEGATIVE Urine Leukocyte Esterase NEGATIVE NEGATIVE Urine Nitrite NEGATIVE NEGATIVE Urine Specific [place] 1.015 1.015 Urine Total Protein NEGATIVE NEGATIVE Urine Urobilinogen 0.2 E.U./dL 0.2 E.U./dL Urine pH 8.0 8.5 Anion Gap 12 Basophils # 0.0 Basophils % 0.2 Blood Urea Nitrogen 6 L Calcium Level 8.2 L Carbon Dioxide Level 29 Chloride Level 104 Creatinine 0.38 L Eosinophils # 0.1 Eosinophils % 1.2 Glucose Level 96 Hematocrit 25.8 L Hemoglobin 8.3 L Lymphocytes # 1.0 Lymphocytes % 18.6 Magnesium Level 1.3 L Mean Corpuscular Hemoglobin 30.0 Mean Corpuscular Hemoglobin Concent 32.2 Mean Corpuscular Volume 93.1 Mean Platelet Volume 11.4 H Monocytes # 0.6 Monocytes % 12.1 H Neutrophils # 3.2 Neutrophils % 62.0 Nucleated Red Blood Cells # 0.0 Nucleated Red Blood Cells % 0.0 Platelet Count 68 #L Potassium Level 3.5 Red Blood Count 2.77 L Red Cell Distribution Width 16.2 H Sodium Level 141 White Blood Count 5.1 # Medications Medications Current Medications Sodium Chloride (NS) 1,000 ml @ 70 mls/hr [id number] IV Last administered on 08/30 18:16; Admin Dose 70 MLS/HR; Start 08/18/16 at 11:00 Diphenhydramine HCl (Benadryl) 25 mg Q4 PRN IV ALLERGIC REACTION Last administered on 08/31/16 01:25; Admin Dose 25 MG; Start 08/18/16 at 13:30 Meperidine HCl (Demerol) 25 mg Q2 PRN IV PAIN Last administered on 08/20/16 16: 47; Admin Dose 25 MG; Start 08/18/16 at 13:30 Dexamethasone (Decadron) 10 mg Q4 PRN IV ALLERGIC REACTION; Start 08/18/16 at 13:30 Metoclopramide HCl (Reglan) 5 mg Q6H PRN IV NAUSEA Last administered on 19:45; Admin Dose 5 MG; Start 08/18/16 at 13:30 Famotidine (Pepcid) 20 mg DAILY PO Last administered on 09/01/16 09:12; Admin Dose 20 MG; Start 08/19/16 at 09:00 Lorazepam (Ativan) 0.5 mg Q6H PRN PO ANXIETY Last administered on 08/19/16 01: 11; Admin Dose 0.5 MG; Start 08/18/16 at 13:30 Al Hydrox/Mg Hydrox/ Simethicone 30 ml 30 ml Q6H PRN PO GASTROINTESTINAL UPSET ; Start 08/19/16 at 14:30 Ondansetron HCl/ Dextrose (Zofran Inj/D5W) 54 ml @ 108 mls/hr Q6H PRN IV NAUSEA AND/OR VOMITING Last administered on 08/23/16 17:54; Admin Dose 108 MLS/ HR; Start 08/20/16 at 09:30 Metoclopramide HCl (Reglan) 20 mg Q6H PRN IV NAUSEA Last administered on 22:51; Admin Dose 20 MG; Start 08/20/16 at 09:30 Filgrastim (Neupogen) 480 mcg DAILY@17 SC ; Start 09/01/16 at 17:00; Stop at 17:01 Acetaminophen (Tylenol Tab) 650 mg Q6H PRN PO PAIN AND OR ELEVATED TEMP Last administered on 08/22/16 14:44; Admin Dose 650 MG; Start 08/20/16 at 23:30 Morphine Sulfate (morphine) 2 mg Q4H PRN IV SEVERE PAIN LEVEL 7-10 Last administered on 08/23/16 11:42; Admin Dose 2 MG; Start 08/21/16 at 11:00 Hydralazine HCl (Apresoline) 10 mg Q6H PRN IV ELEVATED BLOOD PRESSURE; Start at 13:00 Losartan Potassium 25 mg 25 mg DAILY PO Last administered on 09/01/16 09:12; Admin Dose 25 MG; Start 08/23/16 at 14:00 Acetaminophen (Ofirmev 1000mg/ 100ml Iv) 100 ml @ 400 mls/hr Q6 PRN IVPB HEADACHE Last administered on 08/23/16t 20:39; Admin Dose 400 MLS/HR; Start at 20:30 Ondansetron HCl 4 mg 4 mg Q4H PRN IV NAUSEA AND/OR VOMITING; Start 08/27/16 at 20:30 Vincristine Sulfate 1 mg/ Sodium Chloride 100 ml @ 100 mls/hr Q14D IV ; Start 09/01/16 at 12:00; Stop 09/01/16 at 12:59 Sodium Bicarbonate 100 meq/Sodium Chloride 1,100 ml @ 100 mls/hr Q11H IV Last administered on 09/01/16 00:20; Admin Dose 100 MLS/HR; Start 08/31/16 at 09:00 Methotrexate 1750 mg/Dextrose 500 ml @ 125 mls/hr ONCE IV ; Start 09/01/16 at 14:00; Stop 09/01/16 at 17:59 Leucovorin Calcium 350 mg/ Sodium Chloride 100 ml @ 50 mls/hr ONCE IV ; Start 09/02/16 at 14:00; Stop 09/02/16 at 15:59 Leucovorin Calcium 25 mg/ Sodium Chloride 50 ml @ 100 mls/hr Q6H IV ; Start at 20:00 Ondansetron HCl/ Dexamethasone/ Sodium Chloride (Zofran Inj/ Decadron/NS) 60.5 ml @ 120 mls/hr 1130 IVPB ; Start 09/01/16 at 11:30; Stop 09/01/16 at 12:01 Diphenhydramine HCl (Benadryl) 25 mg 1130 IV ; Start 09/01/16 at 11:30; Stop at 11:31 Acetaminophen (Tylenol Tab) 325 mg 1130 PO ; Start 09/01/16 at 11:30; Stop 09/01 at 11:31 JANETH RAMOS MD Sep 01, 2016 10:54
[2016-09-01 11:17] LABS: ADD UMIC NO; URINE BILIRUBIN (Dip) NEGATIVE (NEGATIVE); URINE BLOOD (Dip) NEGATIVE (NEGATIVE); URINE COLOR LT. YELLOW (YELLOW); URINE GLUCOSE (Dip) NEGATIVE (NEGATIVE); URINE KETONES (Dip) NEGATIVE (NEGATIVE); URINE LEUKOCYTE ESTERASE (Dip) NEGATIVE (NEGATIVE); URINE NITRITE (Dip) NEGATIVE (NEGATIVE); URINE TOTAL PROTEIN (Dip) NEGATIVE (NEGATIVE); URINE UROBILINOGEN (Dip) 0.2 E.U./dL (0.1-1.0)
[2016-09-01] MEDS ORDERED: ACETAMINOPHEN 325 MG TAB PO SCH (11:30)
[2016-09-01] MEDS ORDERED: ONDANSETRON INJ 16 MG, DEXAMETHASONE 4 MG/ML 10 MG in SOD CHLORIDE 0.9% 50 ML IVPB SCH (11:30)
[2016-09-01] MEDS ORDERED: DIPHENHYDRAMINE 50 MG INJ IV SCH (11:30)
[2016-09-01] MEDS ORDERED: SOD CHLORIDE 0.9% IV SCH (12:00)
[2016-09-01] MEDS ORDERED: VINCRISTINE IV SCH (12:00)
--- NOTE | 2016-09-01 13:27 | RADRPT ---
PROCEDURE: CT Neck noncontrast CLINICAL INDICATION: Right neck mass. History of Burkitt's lymphoma. History of large thyroid gland . TECHNIQUE: Noncontrast CT of the neck was performed. Axial images were obtained through the neck w ith multiplanar reformatted images generated from the axial acquired data. The administered radiatio n dose was CTDI vol = 8.64 mGy, DLP = 246.3 mGy-cm. One or more of the following dose reduction art hniques were used: Automated exposure control, Adjustment of the mA and/or kV according to patient s ize, or Use of iterative reconstruction technique. COMPARISON: CT of the neck with and without contrast from June 10, 2016 and March 30, 2016.. Ul trasound of the thyroid from March 31, 2016. FINDINGS: Evaluation is limited without intravenous contrast. SKULL: The visualized portions of the brain are grossly unremarkable.The visualized orbits are unrem arkable.The visualized paranasal sinuses are well aerated.The bilateral mastoid air cells are within normal limits. PAROTID GLANDS: Unremarkable on this unenhanced examination. SUBMANDIBULAR GLANDS: Unremarkable on this unenhanced examination. THYROID GLAND: There is heterogeneity of the bilateral thyroid lobes again noted. There is apparent increased hypodense soft tissue mass within the right aspect of the thyroid lobe measuring approxim ately 3.9 x 2.2 x 4.0 cm which appears to be increased in size given limitations of contrast when co mpared to the prior CT. This extends to the anterior aspect of the trachea. Underlying tracheal inva luis is not excluded. There is increased circumferential moderate tracheal stenosis measuring 5 mm t ransverse (image 61 series 31) previously measuring 10 mm transverse however a prior tracheostomy tu be was previously noted within this region limiting evaluation. There is no anterior neck defect fr om prior tracheostomy tube. The remaining portions of the left thyroid lobe and visualized right thy roid lobe are heterogeneous. There is a stable 1.4 cm peripherally calcified lesion within the left thyroid lobe. There is new subcutaneous stranding anterior to the right thyroid lobe/lesion. VASCULATURE: Evaluation is limited without intravenous contrast. LYMPH NODES: Multiple small lymph nodes are identified in the neck in levels I-V which are not patho logically enlarged. The lymph nodes are relatively bilateral and symmetric in distribution. AERODIGESTIVE TRACT: There is streak artifact from dental hardware limiting evaluation of the oral c avity.Evaluation for primary aerodigestive tract lesion is limited without contrast. There is no de finite evidence of aerodigestive tract effacement. LUNGS: The lung apices are unremarkable. There is a stable left PICC line. OSSEOUS STRUCTURES: No destructive lytic or blastic osseous lesion is identified. There is reversal of the cervical lordosis suggesting muscle spasm and/or degenerative changes. There are mild to mode rate degenerate changes within the cervical spine. IMPRESSION: 1. The right thyroid lobe demonstrates increased hypodense region in which evaluation is limited g iven limitations. Evaluation is limited without intravenous contrast. There is new subcutaneous str anding anterior to the right thyroid lobe/lesion. Previous noted tracheostomy tube has been removed within this region without residual anterior neck defect. There is increased circumferential moder ate tracheal stenosis in which comparison is difficult given prior tracheostomy tube within this loc ation on prior examination. Findings may be related to patient's residual thyroid goiter. Right th yroid lobe metastatic infiltration or possible primary lesion are not entirely excluded given histor y of lymphoma. Ultrasound of the thyroid is recommended as well as correlation with serum chemistrie s. Tissue sampling may be performed given size as clinically warranted. 2. The remaining portions of the bilateral thyroid glands are again heterogeneous with a 1.4 cm per ipherally calcified left thyroid lobe lesion. 3. No cervical adenopathy. Further findings as detailed above. RPTAT: PP .Wilfredo Dos Santos MD, Date Time Electronically viewed and signed by .Wilfredo Dos Santos MD, on 09/01/2016 13:26 .F/
[2016-09-01] MEDS ORDERED: METHOTREXATE IV SCH (14:00)
[2016-09-01] MEDS ORDERED: DEXTROSE 5% IV SCH (14:00)
--- NOTE | 2016-09-01 14:17 | CONS ---
Date/Time of Note Date/Time of Note DATE: 09/01/16 TIME: 14:10 Assessment/Plan Assessment/Plan Chief Complaint/Hosp Course 56 yo female with massive neck mass causing tracheal compression and airway compromise s/p tracheostomy placement. 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 Pt was given cycle 1A and 1Bof R HyperCVAD but had only a partial response to therapy and severe side effects. We have thus changed her chemotherapy regimen. She is now s/p cycle 1B of R-IVAC and is now being admitted for cycle 2A of R-Codox M. Pt has new neck pain this morning. Most recent Ct soft tissue neck with contrast shows an increased hypodense soft tissue mass within the right aspect of the thyroid lobe measuring approximately 3.9 x 2.2 x 4.0 cm which appears to be increased in size given limitations of contrast when compared to the prior CT. This extends to the anterior aspect of the trachea. It is unclear if this is recurrent lymphoma or this is a goiter Problems: Additional Assessment/Plan #Neck mass -will order stat CT soft tissue neck with contrast -will call ENT. patient's mass may need biopsy to confirm if this is recurrent disease versus goiter # Burkitt's lymphoma -proceed with cycle 2A R CODOX -M. proceed with chemotherapy today -Rituximab (Rituxan) as follows: Day 1 is 08/18 * Cycle 1: 375 mg/m2 (660mg) IV on Day 1 -Cyclophosphamide (Cytoxan) 800 mg/m2 ( 1415mg) IV once per day on days 1 & 2 -Vincristine (Oncovin) 1.0 mg (dose reduced for neuropathy) days 1 & 15 . next dose due 09/02 -Doxorubicin (Adriamycin) 50 mg/m2 (88mg) IV once on day 1 . dose reduced by 50 % for elevated transaminases -Methotrexate (MTX) 3100mg/m2 (175mg) IV over 1 hour then 900mg/m2 (1590mg) over 23 hours on day 15. will start IVF with 2 amps Na HCo3 prior to MTX infusion since Urine Ph > 7.0. Leucovorin 25mg IV q 4 hours will start 36 hours after MTX starts until MTX level is < 0.05. # Supportive Care and prophylactic meds -Acyclovir 400mg BID on hold for increased LFTS -fluconazole 100mg q day on hold for increased LFTS -Neupogen 300mcg q day. need to continue for 5 days total -Zofran 8mg IV q 6 + Reglan 20mg IV q 6 ordered prn nausea #Expected Pancytopenia -keep Hg> 8 and platelets > 10 -will given 1 unit of PRBCs today # Elevated AST and ALT, likely related to methotrexate. ultrasound shows fatty liver -continue to monitor LFTs, continue to increase.. 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 all steroids should be discontinued for now unless they are part of the chemotherapy regimen -continue to work with physical therapy. # Respiratory compromise -trach has been removed approximately 40 min were spent at patient's bedside and in coordination of her care Consultation Date/Type/Reason Admit Date/Time Aug 18, 2016 at 11:11 Initial Consult Date 08/18/16 Type of Consultation: Hematology Reason for Consultation burkitt's lymphoma Referring Provider: ABISAI BRANCH 24 HR Interval Summary Free Text/Dictation pt states she has increased swelling in the neck especially below the thyroid gland. just started having pain in neck this morning Exam/Review of Systems Vital Signs Vitals Vital Signs Date Time Temp Pulse Resp B/P Pulse Ox O2 Delivery O2 Flow Rate FiO2 09/01/16 08:12 97.8 97 19 106/64 97 08/30/16 21:47 Room Air Intake and Output 08/31/16 08/31/16 09/01/16 15:00 23:00 07:00 Intake Total 2000 ml Balance 2000 ml Exam Constitutional: alert, oriented Psych: anxiety, depression Eyes: nl conjunctiva ENMT: nl external ears & nose Neck: other (thyromegaly, trach site healing, tender) Respiratory: clear to auscultation, normal air movement Cardiovascular: regular rate and rhythm Gastrointestinal: soft Musculoskeletal: nl extremities to inspection, nl gait and stance Extremities: normal pulses Results Result Diagram: 09/01/16 0423 09/01/163 Results 24 hrs Laboratory Tests Test 08/31/16 16:45 09/01/16 00:51 09/01/16 04:23 09/01/16 10:50 Urine Bilirubin NEGATIVE NEGATIVE NEGATIVE Urine Clarity CLEAR CLEAR CLEAR Urine Color LT. YELLOW LT. YELLOW LT. YELLOW Urine Glucose NEGATIVE NEGATIVE NEGATIVE Urine Hemoglobin NEGATIVE NEGATIVE NEGATIVE Urine Ketones NEGATIVE NEGATIVE NEGATIVE Urine Leukocyte Esterase NEGATIVE NEGATIVE NEGATIVE Urine Nitrite NEGATIVE NEGATIVE NEGATIVE Urine Specific [place] 1.015 1.015 1.015 Urine Total Protein NEGATIVE NEGATIVE NEGATIVE Urine Urobilinogen 0.2 E.U./dL 0.2 E.U./dL 0.2 E.U./dL Urine pH 8.0 8.5 8.0 Anion Gap 12 Basophils # 0.0 Basophils % 0.2 Blood Urea Nitrogen 6 L Calcium Level 8.2 L Carbon Dioxide Level 29 Chloride Level 104 Creatinine 0.38 L Eosinophils # 0.1 Eosinophils % 1.2 Glucose Level 96 Hematocrit 25.8 L Hemoglobin 8.3 L Lymphocytes # 1.0 Lymphocytes % 18.6 Magnesium Level 1.3 L Mean Corpuscular Hemoglobin 30.0 Mean Corpuscular Hemoglobin Concent 32.2 Mean Corpuscular Volume 93.1 Mean Platelet Volume 11.4 H Monocytes # 0.6 Monocytes % 12.1 H Neutrophils # 3.2 Neutrophils % 62.0 Nucleated Red Blood Cells # 0.0 Nucleated Red Blood Cells % 0.0 Platelet Count 68 #L Potassium Level 3.5 Red Blood Count 2.77 L Red Cell Distribution Width 16.2 H Sodium Level 141 White Blood Count 5.1 # Medications Medications Current Medications Sodium Chloride (NS) 1,000 ml @ 70 mls/hr [id number] IV Last administered on 08/30 18:16; Admin Dose 70 MLS/HR; Start 08/18/16 at 11:00 Diphenhydramine HCl (Benadryl) 25 mg Q4 PRN IV ALLERGIC REACTION Last administered on 08/31/16 01:25; Admin Dose 25 MG; Start 08/18/16 at 13:30 Meperidine HCl (Demerol) 25 mg Q2 PRN IV PAIN Last administered on 08/20/16 16: 47; Admin Dose 25 MG; Start 08/18/16 at 13:30 Dexamethasone (Decadron) 10 mg Q4 PRN IV ALLERGIC REACTION; Start 08/18/16 at 13:30 Metoclopramide HCl (Reglan) 5 mg Q6H PRN IV NAUSEA Last administered on 19:45; Admin Dose 5 MG; Start 08/18/16 at 13:30 Famotidine (Pepcid) 20 mg DAILY PO Last administered on 09/01/16 09:12; Admin Dose 20 MG; Start 08/19/16 at 09:00 Lorazepam (Ativan) 0.5 mg Q6H PRN PO ANXIETY Last administered on 08/19/16 01: 11; Admin Dose 0.5 MG; Start 08/18/16 at 13:30 Al Hydrox/Mg Hydrox/ Simethicone 30 ml 30 ml Q6H PRN PO GASTROINTESTINAL UPSET ; Start 08/19/16 at 14:30 Ondansetron HCl/ Dextrose (Zofran Inj/D5W) 54 ml @ 108 mls/hr Q6H PRN IV NAUSEA AND/OR VOMITING Last administered on 08/23/16 17:54; Admin Dose 108 MLS/ HR; Start 08/20/16 at 09:30 Metoclopramide HCl (Reglan) 20 mg Q6H PRN IV NAUSEA Last administered on 22:51; Admin Dose 20 MG; Start 08/20/16 at 09:30 Filgrastim (Neupogen) 480 mcg DAILY@17 SC ; Start 09/01/16 at 17:00; Stop at 17:01 Acetaminophen (Tylenol Tab) 650 mg Q6H PRN PO PAIN AND OR ELEVATED TEMP Last administered on 08/22/16 14:44; Admin Dose 650 MG; Start 08/20/16 at 23:30 Morphine Sulfate (morphine) 2 mg Q4H PRN IV SEVERE PAIN LEVEL 7-10 Last administered on 08/23/16 11:42; Admin Dose 2 MG; Start 08/21/16 at 11:00 Hydralazine HCl (Apresoline) 10 mg Q6H PRN IV ELEVATED BLOOD PRESSURE; Start at 13:00 Losartan Potassium 25 mg 25 mg DAILY PO Last administered on 09/01/16 09:12; Admin Dose 25 MG; Start 08/23/16 at 14:00 Acetaminophen (Ofirmev 1000mg/ 100ml Iv) 100 ml @ 400 mls/hr Q6 PRN IVPB HEADACHE Last administered on 08/23/16 20:39; Admin Dose 400 MLS/HR; Start at 20:30 Ondansetron HCl 4 mg 4 mg Q4H PRN IV NAUSEA AND/OR VOMITING; Start 3/8/17 at 20:30 Sodium Bicarbonate 100 meq/Sodium Chloride 1,100 ml @ 100 mls/hr Q11H IV Last administered on 09/01/16t 13:31; Admin Dose 100 MLS/HR; Start 08/31/16 at 09:00 Methotrexate 1750 mg/Dextrose 500 ml @ 125 mls/hr ONCE IV ; Start 09/01/16 at 14:00; Stop 09/01/16 at 17:59 Leucovorin Calcium 350 mg/ Sodium Chloride 100 ml @ 50 mls/hr ONCE IV ; Start 09/02/16 at 14:00; Stop 09/02/16 at 15:59 Leucovorin Calcium/Sodium Chloride (Leucovorin Calcium Inj/NS) 50 ml @ 100 mls/ hr Q6H IV ; Start 09/02/16 at 20:00 CHANDRIKA MERLOS M.D. Sep 01, 2016 14:17
[2016-09-01] MEDS ORDERED: IOHEXOL 300MG/ML 150 ML BTL ONE (15:08)
[2016-09-01] MEDS ORDERED: SOD CHLORIDE 0.9% 100 ML ONE (15:08)
--- NOTE | 2016-09-01 15:48 | RADRPT ---
PROCEDURE: CT Neck with contrast CLINICAL INDICATION: Right neck mass. History of Burkitt's lymphoma. History of large thyroid gland. TECHNIQUE: CT of the neck was performed following the intravenous administration of 80 cc of Omnip aque-300 IV Contrast. Axial images were obtained through the neck with multiplanar reformatted image s generated from the axial acquired data. The administered radiation dose was CTDI vol = 8.61 mGy, DLP = 240.04 mGy-cm. One or more of the following dose reduction techniques were used: Automated exp osure control, Adjustment of the mA and/or kV according to patient size, or Use of iterative reconst ruction technique. COMPARISON: CT of the neck with and without contrast from June 10, [address] and n grisel from March 30, 2016. FINDINGS: SKULL: The visualized portions of the brain are grossly unremarkable. The visualized orbits are unre markable. The visualized paranasal sinuses are well aerated. The bilateral mastoid air cells are wit hin normal limits. PAROTID GLANDS: Unremarkable on this unenhanced examination. SUBMANDIBULAR GLANDS: Unremarkable on this unenhanced examination. THYROID GLAND: There is heterogeneity of the bilateral thyroid lobes again noted. There is nonenhanc ing hypodense soft tissue within the right aspect of the thyroid lobe again noted. The remaining po rtions of the right thyroid gland demonstrate enhancement. This appears probably unchanged in size compared to prior CT given the benefit of intravenous contrast on this examination. Enhancing thyro id tissue is again noted extending to the region of the trachea. There is no definite tracheal enha ncement. There is stable circumferential moderate tracheal stenosis measuring 5 mm. There is no ant erior neck defect from prior tracheostomy tube. The remaining portions of the left thyroid lobe and visualized right thyroid lobe are heterogeneous. There is a stable 1.4 cm peripherally calcified les ion within the left thyroid lobe. There is subcutaneous stranding anterior to the right thyroid lobe /lesion. VASCULATURE: Evaluation is limited without intravenous contrast. LYMPH NODES: Multiple small lymph nodes are identified in the neck in levels I-V which are not patho logically enlarged. The lymph nodes are relatively bilateral and symmetric in distribution. AERODIGESTIVE TRACT: There is streak artifact from dental hardware limiting evaluation of the oral c avity.Evaluation for primary aerodigestive tract lesion is limited without contrast. There is no def inite evidence of aerodigestive tract effacement. LUNGS: The lung apices are unremarkable. There is a stable left PICC line. OSSEOUS STRUCTURES: No destructive lytic or blastic osseous lesion is identified. There is reversal of the cervical lordosis suggesting muscle spasm and/or degenerative changes. There are mild to mode rate degenerate changes within the cervical spine. IMPRESSION: 1. Nonenhancing soft tissue within the right thyroid gland with residual enhancement of the remaini ng portion of the right thyroid gland. This appears unchanged in size and configuration given benefi t of contrast compared to June 20, 2016. The left thyroid gland is again heterogeneous with a 1. 4 cm coarse calcification which is unchanged in appearance. Findings are likely related to patient' s underlying thyroid goiter versus less likely etiologies. There is stable mild subcutaneous strand ing within the right anterior neck soft tissues. Continued follow-up may be performed as clinically warranted. 2. No cervical adenopathy. Further findings as detailed above. RPTAT: PP .Wilfredo Dos Santos MD, MD Date Time Electronically viewed and signed by .Wilfredo Dos Santos MD, MD on 09/01/2016 15:48 .F/
[2016-09-01] MEDS ORDERED: FILGRASTIM 480 MCG INJ SC SCH (17:00)
[2016-09-01] MEDS ORDERED: MAGNESIUM SULFATE 3 GM in SOD CHLORIDE 0.9% 100 ML IVPB ONE (22:30)
[2016-09-02] VITALS: BP 118/64; PULSE 81; RESP 18
[2016-09-02] MEDS: SODIUM BICARBONATE (IV ADD) 100 MEQ in SOD CHLORIDE 0.9% 1,000 ML IV SCH (04:37)
[2016-09-02 05:13] LABS: ADD SCAN DIFF NO
[2016-09-02 05:19] LABS: ABNORMAL IP MESSAGE 1; HEMATOCRIT 25.5 % (37.0-47.0); HEMOGLOBIN 8.3 g/dl (12.0-16.0); LYMPHOCYTES # 0.7 10^3/ul (0.8-2.9); LYMPHOCYTES % 9.9 % (15.0-51.0); MEAN CORPUSCULAR HGB CONC 32.5 g/dl (32.0-37.0); MEAN CORPUSCULAR VOLUME 92.1 fl (82.0-101.0); MEAN PLATELET VOLUME 10.5 fl (7.4-10.4); MONOCYTE # 0.5 10^3/ul (0.3-0.9); MONOCYTES % 7.2 % (0.0-11.0); NEUTROPHIL # 5.6 10^3/ul (1.6-7.5); NEUTROPHILS % 79.5 % (39.0-77.0); PLATELET COUNT 84 10^3/UL (140-415); RED BLOOD COUNT 2.77 10^6/ul (4.20-5.40); RED CELL DISTRIBUTION WIDTH 15.3 % (11.5-14.5); WHITE BLOOD COUNT 7.1 10^3/ul (4.8-10.8)
[2016-09-02 05:29] LABS: POTASSIUM 4.3 mmol/L (3.5-5.1)
[2016-09-02 05:32] LABS: CREATININE 0.35 mg/dl (0.44-1.00)
[2016-09-02 05:33] LABS: CALCIUM 8.4 mg/dl (8.4-10.2)
[2016-09-02 07:55] LABS: PHOSPHORUS 3.1 mg/dl (2.5-4.9)
[2016-09-02 08:01] VITALS: BP 115/58; RESP 18
[2016-09-02] MEDS: SOD CHLORIDE 0.9% 1,000 ML IV SCH ×2 (08:21→10:26)
[2016-09-02] MEDS: FAMOTIDINE 20 MG TAB PO SCH (08:22)
[2016-09-02] MEDS: LOSARTAN 25 MG TAB PO SCH (08:25)
--- NOTE | 2016-09-02 11:03 | CONS ---
Date/Time of Note Date/Time of Note DATE: 09/02/16 TIME: 10:58 Assessment/Plan Assessment/Plan Chief Complaint/Hosp Course 56 yo female with massive neck mass causing tracheal compression and airway compromise s/p tracheostomy placement. 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 Pt was given cycle 1A and 1Bof R HyperCVAD but had only a partial response to therapy and severe side effects. We have thus changed her chemotherapy regimen. She is now s/p cycle 1B of R-IVAC and is now being admitted for cycle 2A of R-Codox M. Problems: Additional Assessment/Plan #Neck pain - STAT CT soft tissue neck with contrast demonstrated no residual disease and appeared the same as the study done in May. Large thyroid is likely secondary to goiter -once patient has completed chemotherapy, will perform another thyroid biopsy to ensure there is no residual disease # Burkitt's lymphoma -proceed with cycle 2A R CODOX -M. proceed with chemotherapy today -Rituximab (Rituxan) as follows: Day 1 is 08/18 * Cycle 1: 375 mg/m2 (660mg) IV on Day 1 -Cyclophosphamide (Cytoxan) 800 mg/m2 ( 1415mg) IV once per day on days 1 & 2 -Vincristine (Oncovin) 1.0 mg (dose reduced for neuropathy) days 1 & 15 . dose given 09/02 -Doxorubicin (Adriamycin) 50 mg/m2 (88mg) IV once on day 1 . dose reduced by 50 % for elevated transaminases -Methotrexate (MTX) 3100mg/m2 (175mg) IV over 1 hour then 900mg/m2 (1590mg) over 23 hours on day 15. will start IVF with 2 amps Na HCo3 prior to MTX infusion since Urine Ph > 7.0. Leucovorin 25mg IV q 4 hours will start 36 hours after MTX starts until MTX level is < 0.05. # Supportive Care and prophylactic meds -Acyclovir 400mg BID on hold for increased LFTS -fluconazole 100mg q day on hold for increased LFTS -Neupogen 300mcg q day. need to continue for 5 days total -Zofran 8mg IV q 6 + Reglan 20mg IV q 6 ordered prn nausea #Expected Pancytopenia -keep Hg> 8 and platelets > 10 -will given 1 unit of PRBCs today # Elevated AST and ALT, likely related to methotrexate. ultrasound shows fatty liver -continue to monitor LFTs, continue to increase.. D bili ok -chemotherapy has been dose reduced appropriately # Respiratory compromise -trach has been removed approximately 40 min were spent at patient's bedside and in coordination of her care Consultation Date/Type/Reason Admit Date/Time Aug 18, 2016 at 11:11 Initial Consult Date 08/18/16 Type of Consultation: Hematology Reason for Consultation stage IIA burkitt's lymphoma Referring Provider: ABISAI BRANCH 24 HR Interval Summary Free Text/Dictation still with same right sided neck pain. CT soft tissue of neck w contrast did not demonstrate a new mass. pt feels well. eating and ambulating. completed methotrexate yesterday Exam/Review of Systems Vital Signs Vitals Vital Signs Date Time Temp Pulse Resp B/P Pulse Ox O2 Delivery O2 Flow Rate FiO2 09/02/16 08:01 98.2 77 18 115/58 98 09/02/16 00:00 Room Air Intake and Output 09/01/16 09/01/16 09/02/16 15:00 23:00 07:00 Intake Total 980 ml 2106 ml Output Total 1600 ml 1500 ml Balance -620 ml 606 ml Exam Constitutional: alert, oriented Psych: no complaints Head: normocephalic Eyes: nl conjunctiva ENMT: nl external ears & nose, nl lips & teeth Neck: other (soft, no masses felt, right side is tender.) Respiratory: clear to auscultation, normal air movement Cardiovascular: regular rate and rhythm Gastrointestinal: soft Musculoskeletal: nl extremities to inspection, nl gait and stance Extremities: normal pulses Results Result Diagram: 09/02/16 0437 09/02/16 0437 Results 24 hrs Laboratory Tests Test 09/02/16 04:37 Anion Gap 11 Basophils # 0.0 Basophils % 0.0 Blood Urea Nitrogen 6 L Calcium Level 8.4 Carbon Dioxide Level 31 Chloride Level 103 Creatinine 0.35 L Eosinophils # 0.0 Eosinophils % 0.0 Glucose Level 110 Hematocrit 25.5 L Hemoglobin 8.3 L Lymphocytes # 0.7 L Lymphocytes % 9.9 L Magnesium Level 3.0 H Mean Corpuscular Hemoglobin 30.0 Mean Corpuscular Hemoglobin Concent 32.5 Mean Corpuscular Volume 92.1 Mean Platelet Volume 10.5 H Monocytes # 0.5 Monocytes % 7.2 Neutrophils # 5.6 Neutrophils % 79.5 H Nucleated Red Blood Cells # 0.0 Nucleated Red Blood Cells % 0.0 Phosphorus Level 3.1 Platelet Count 84 #L Potassium Level 4.3 Red Blood Count 2.77 L Red Cell Distribution Width 15.3 H Sodium Level 141 White Blood Count 7.1 # Medications Medications Current Medications Sodium Chloride (NS) 1,000 ml @ 70 mls/hr [id number] IV Last administered on 09/02 10:26; Admin Dose 70 MLS/HR; Start 08/18/16 at 11:00 Diphenhydramine HCl (Benadryl) 25 mg Q4 PRN IV ALLERGIC REACTION Last administered on 08/31/16 01:25; Admin Dose 25 MG; Start 08/18/16 at 13:30 Meperidine HCl (Demerol) 25 mg Q2 PRN IV PAIN Last administered on 08/20/16 16: 47; Admin Dose 25 MG; Start 08/18/16 at 13:30 Dexamethasone (Decadron) 10 mg Q4 PRN IV ALLERGIC REACTION; Start 08/18/16 at 13:30 Metoclopramide HCl (Reglan) 5 mg Q6H PRN IV NAUSEA Last administered on 19:45; Admin Dose 5 MG; Start 08/18/16 at 13:30 Famotidine (Pepcid) 20 mg DAILY PO Last administered on 09/02/16 08:22; Admin Dose 20 MG; Start 08/19/16 at 09:00 Lorazepam (Ativan) 0.5 mg Q6H PRN PO ANXIETY Last administered on 08/19/16 01: 11; Admin Dose 0.5 MG; Start 08/18/16 at 13:30 Al Hydrox/Mg Hydrox/ Simethicone 30 ml 30 ml Q6H PRN PO GASTROINTESTINAL UPSET ; Start 08/19/16 at 14:30 Ondansetron HCl/ Dextrose (Zofran Inj/D5W) 54 ml @ 108 mls/hr Q6H PRN IV NAUSEA AND/OR VOMITING Last administered on 08/23/16 17:54; Admin Dose 108 MLS/ HR; Start 08/20/16 at 09:30 Metoclopramide HCl (Reglan) 20 mg Q6H PRN IV NAUSEA Last administered on 3/6/ 17at 22:51; Admin Dose 20 MG; Start 08/20/16 at 09:30 Acetaminophen (Tylenol Tab) 650 mg Q6H PRN PO PAIN AND OR ELEVATED TEMP Last administered on 08/22/16 14:44; Admin Dose 650 MG; Start 08/20/16 at 23:30 Morphine Sulfate (morphine) 2 mg Q4H PRN IV SEVERE PAIN LEVEL 7-10 Last administered on 08/23/16 11:42; Admin Dose 2 MG; Start 08/21/16 at 11:00 Hydralazine HCl (Apresoline) 10 mg Q6H PRN IV ELEVATED BLOOD PRESSURE; Start at 13:00 Losartan Potassium 25 mg 25 mg DAILY PO Last administered on 09/02/16 08:25; Admin Dose 25 MG; Start 08/23/16 at 14:00 Acetaminophen (Ofirmev 1000mg/ 100ml Iv) 100 ml @ 400 mls/hr Q6 PRN IVPB HEADACHE Last administered on 08/23/16 20:39; Admin Dose 400 MLS/HR; Start at 20:30 Ondansetron HCl 4 mg 4 mg Q4H PRN IV NAUSEA AND/OR VOMITING; Start 08/27/16 at 20:30 Leucovorin Calcium 350 mg/ Sodium Chloride 100 ml @ 50 mls/hr 1830 IV ; Start 09/02/16 at 18:30; Stop 09/02/16 at 20:29 Leucovorin Calcium/Sodium Chloride (Leucovorin Calcium Inj/NS) 50 ml @ 100 mls/ hr Q6H IV ; Start 09/03/16 at 00:00 CHANDRIKA MERLOS M.D. Sep 02, 2016 11:03
--- NOTE | 2016-09-02 11:20 | PN ---
Date/Time of Note Date/Time of Note DATE: 09/02/16 TIME: 11:18 Assessment/Plan VTE Prophylaxis VTE Prophylaxis Intervention: SCD's Lines/Catheters IV Catheter Type (from Nrs): PICC Line Central line still needed: Yes Urinary Cath still in place: No Assessment/Plan Chief Complaint/Hosp Course ASSESSMENT AND PLAN: 1. History of Burkitt lymphoma. Continue chemotherapy as per oncology. CT of the neck: No significant changes from prior studies 2. History of renal insufficiency. Stable, continue IV fluids. 3. History of transaminitis. Stable, likely secondary to chemotherapy, follow up liver function tests. 4. Essential hypertension, well controlled. 5. Michelle thyroiditis. The patient has been followed up with water resource manager as outpatient. 6. Intractable nausea. Well-controlled Reglan Zofran and Tigan 7. Pancytopenia. Likely postchemotherapy, follow-up biofuels product manager recommendation for transfusion, stable 8. Hypokalemia, stable, follow-up electrolytes in a.m. 9. Thrombocytopenia, likely secondary to chemotherapy, no evidence of bleeding , stable -For deep venous thrombosis prophylaxis on sequential compression devices. - For gastrointestinal prophylaxis, place the patient on Pepcid. We will continue to monitor patient closely. Further recommendations, management and treatment as per clinical course. Problems: Subjective 24 Hr Interval Summary Free Text/Dictation Patient denies of any chest pain or shortness of breath Denies of any abdominal pain No nausea vomiting diarrhea Tolerating oral intake Exam/Review of Systems Vital Signs Vitals Vital Signs Date Time Temp Pulse Resp B/P Pulse Ox O2 Delivery O2 Flow Rate FiO2 09/02/16 08:01 98.2 77 18 115/58 98 09/02/16 00:00 Room Air Intake and Output 09/01/16 09/01/16 09/02/16 15:00 23:00 07:00 Intake Total 980 ml 2106 ml Output Total 1600 ml 1500 ml Balance -620 ml 606 ml Exam General: The patient is well-developed, Not in acute distress. HEENT: Atraumatic, normocephalic. The pupils are equal and round . Neck: Supple with full range of motion. Decreased swelling and and anterior neck area, minimal erythema Chest: Normal expansion of the thorax during inspiration Lungs: Clear to auscultation bilaterally Heart: Normal S1-S2, Regular rhythm and rate. Abdomen: Soft , nontender, nondistended , bowel sounds are present. Extremities: Normal to inspection, no edema no cyanosis Neurologic: Normal mental status,The patient is awake, alert and oriented . Results Result Diagram: 09/02/16 0437 09/02/16436 Results 24 hrs Laboratory Tests Test 09/02/16 04:37 Anion Gap 11 Basophils # 0.0 Basophils % 0.0 Blood Urea Nitrogen 6 L Calcium Level 8.4 Carbon Dioxide Level 31 Chloride Level 103 Creatinine 0.35 L Eosinophils # 0.0 Eosinophils % 0.0 Glucose Level 110 Hematocrit 25.5 L Hemoglobin 8.3 L Lymphocytes # 0.7 L Lymphocytes % 9.9 L Magnesium Level 3.0 H Mean Corpuscular Hemoglobin 30.0 Mean Corpuscular Hemoglobin Concent 32.5 Mean Corpuscular Volume 92.1 Mean Platelet Volume 10.5 H Monocytes # 0.5 Monocytes % 7.2 Neutrophils # 5.6 Neutrophils % 79.5 H Nucleated Red Blood Cells # 0.0 Nucleated Red Blood Cells % 0.0 Phosphorus Level 3.1 Platelet Count 84 #L Potassium Level 4.3 Red Blood Count 2.77 L Red Cell Distribution Width 15.3 H Sodium Level 141 White Blood Count 7.1 # Medications Medications Current Medications Sodium Chloride (NS) 1,000 ml @ 70 mls/hr [id number] IV Last administered on 09/02 10:26; Admin Dose 70 MLS/HR; Start 08/18/16 at 11:00 Diphenhydramine HCl (Benadryl) 25 mg Q4 PRN IV ALLERGIC REACTION Last administered on 08/31/16 01:25; Admin Dose 25 MG; Start 08/18/16 at 13:30 Meperidine HCl (Demerol) 25 mg Q2 PRN IV PAIN Last administered on 08/20/16 16: 47; Admin Dose 25 MG; Start 08/18/16 at 13:30 Dexamethasone (Decadron) 10 mg Q4 PRN IV ALLERGIC REACTION; Start 08/18/16 at 13:30 Metoclopramide HCl (Reglan) 5 mg Q6H PRN IV NAUSEA Last administered on 19:45; Admin Dose 5 MG; Start 08/18/16 at 13:30 Famotidine (Pepcid) 20 mg DAILY PO Last administered on 09/02/16 08:22; Admin Dose 20 MG; Start 08/19/16 at 09:00 Lorazepam (Ativan) 0.5 mg Q6H PRN PO ANXIETY Last administered on 08/19/16 01: 11; Admin Dose 0.5 MG; Start 08/18/16 at 13:30 Al Hydrox/Mg Hydrox/ Simethicone 30 ml 30 ml Q6H PRN PO GASTROINTESTINAL UPSET ; Start 08/19/16 at 14:30 Ondansetron HCl/ Dextrose (Zofran Inj/D5W) 54 ml @ 108 mls/hr Q6H PRN IV NAUSEA AND/OR VOMITING Last administered on 08/23/16 17:54; Admin Dose 108 MLS/ HR; Start 08/20/16 at 09:30 Metoclopramide HCl (Reglan) 20 mg Q6H PRN IV NAUSEA Last administered on 22:51; Admin Dose 20 MG; Start 08/20/16 at 09:30 Acetaminophen (Tylenol Tab) 650 mg Q6H PRN PO PAIN AND OR ELEVATED TEMP Last administered on 08/22/16 14:44; Admin Dose 650 MG; Start 08/20/16 at 23:30 Morphine Sulfate (morphine) 2 mg Q4H PRN IV SEVERE PAIN LEVEL 7-10 Last administered on 08/23/16 11:42; Admin Dose 2 MG; Start 08/21/16 at 11:00 Hydralazine HCl (Apresoline) 10 mg Q6H PRN IV ELEVATED BLOOD PRESSURE; Start at 13:00 Losartan Potassium 25 mg 25 mg DAILY PO Last administered on 09/02/16 08:25; Admin Dose 25 MG; Start 08/23/16 at 14:00 Acetaminophen (Ofirmev 1000mg/ 100ml Iv) 100 ml @ 400 mls/hr Q6 PRN IVPB HEADACHE Last administered on 08/23/16 20:39; Admin Dose 400 MLS/HR; Start at 20:30 Ondansetron HCl 4 mg 4 mg Q4H PRN IV NAUSEA AND/OR VOMITING; Start 08/27/16 at 20:30 Leucovorin Calcium 350 mg/ Sodium Chloride 100 ml @ 50 mls/hr 1830 IV ; Start 09/02/16 at 18:30; Stop 09/02/16 at 20:29 Leucovorin Calcium/Sodium Chloride (Leucovorin Calcium Inj/NS) 50 ml @ 100 mls/ hr Q6H IV ; Start 09/03/16 at 00:00 JANETH RAMOS MD Sep 02, 2016 11:19
[2016-09-02] MEDS ORDERED: LEUCOVORIN CALCIUM IV SCH ×3 (14:00→20:00)
[2016-09-02] MEDS ORDERED: SOD CHLORIDE 0.9% IV SCH ×3 (14:00→20:00)
[2016-09-02 20:38] VITALS: BP 118/69; RESP 18
[2016-09-02] MEDS: SOD CHLORIDE 0.9% IV SCH (23:23)
[2016-09-02] MEDS: LEUCOVORIN CALCIUM IV SCH (23:23)
[2016-09-03] MEDS: SOD CHLORIDE 0.9% 1,000 ML IV SCH ×2 (04:33→13:06)
[2016-09-03 05:23] LABS: ADD SCAN DIFF NO
[2016-09-03 05:26] LABS: ALBUMIN 2.7 g/dl (3.3-4.9); POTASSIUM 3.5 mmol/L (3.5-5.1)
[2016-09-03 05:29] LABS: ALBUMIN/GLOBULIN RATIO 1.22; BILIRUBIN,INDIRECT 0.1 mg/dl (0-1.1); BILIRUBIN,TOTAL 0.1 mg/dl (0.2-1.3); CREATININE 0.35 mg/dl (0.44-1.00); TOTAL PROTEIN 4.9 g/dl (6.1-8.1)
[2016-09-03 05:30] LABS: CALCIUM 8.2 mg/dl (8.4-10.2)
[2016-09-03 05:31] LABS: ABNORMAL IP MESSAGE 1; HEMATOCRIT 23.6 % (37.0-47.0); HEMOGLOBIN 7.6 g/dl (12.0-16.0); MEAN CORPUSCULAR HEMOGLOBIN 30.3 pg (29.0-33.0); MEAN CORPUSCULAR HGB CONC 32.2 g/dl (32.0-37.0); MEAN PLATELET VOLUME 10.4 fl (7.4-10.4); PLATELET COUNT 99 10^3/UL (140-415); RED BLOOD COUNT 2.51 10^6/ul (4.20-5.40); RED CELL DISTRIBUTION WIDTH 16.1 % (11.5-14.5); WHITE BLOOD COUNT 2.8 10^3/ul (4.8-10.8)
[2016-09-03] MEDS: SOD CHLORIDE 0.9% IV SCH ×3 (05:40→18:51)
[2016-09-03] MEDS: LEUCOVORIN CALCIUM IV SCH ×3 (05:40→18:51)
[2016-09-03 07:00] VITALS: BP 118/73; RESP 20
[2016-09-03 07:11] LABS: ADD SCAN DIFF NO
[2016-09-03 07:15] LABS: ABNORMAL IP MESSAGE 1; HEMATOCRIT 23.5 % (37.0-47.0); HEMOGLOBIN 7.4 g/dl (12.0-16.0); MEAN CORPUSCULAR HEMOGLOBIN 29.4 pg (29.0-33.0); MEAN CORPUSCULAR HGB CONC 31.5 g/dl (32.0-37.0); MEAN CORPUSCULAR VOLUME 93.3 fl (82.0-101.0); MEAN PLATELET VOLUME 9.5 fl (7.4-10.4); PLATELET COUNT 85 10^3/UL (140-415); RED BLOOD COUNT 2.52 10^6/ul (4.20-5.40); RED CELL DISTRIBUTION WIDTH 16.4 % (11.5-14.5); WHITE BLOOD COUNT 2.9 10^3/ul (4.8-10.8)
[2016-09-03] MEDS: FAMOTIDINE 20 MG TAB PO SCH (09:35)
[2016-09-03] MEDS: LOSARTAN 25 MG TAB PO SCH (09:36)
[2016-09-03 09:39] LABS: EOSINOPHILS # 0.1 10^3/ul (0.0-0.5); LYMPHOCYTES # 0.5 10^3/ul (0.8-2.9); MONOCYTE # 0.1 10^3/ul (0.3-0.9); NEUTROPHIL # 2.1 10^3/ul (1.6-7.5)
[2016-09-03 10:17] LABS: EOSINOPHILS # 0.1 10^3/ul (0.0-0.5); LYMPHOCYTES # 0.4 10^3/ul (0.8-2.9); MONOCYTE # 0.1 10^3/ul (0.3-0.9); NEUTROPHIL # 2.2 10^3/ul (1.6-7.5)
[2016-09-03 10:18] LABS: OVALOCYTES 1+; TEAR DROP CELLS 1+
--- NOTE | 2016-09-03 10:35 | PN ---
Date/Time of Note Date/Time of Note DATE: 09/03/16 TIME: 10:35 Assessment/Plan VTE Prophylaxis VTE Prophylaxis Intervention: SCD's Lines/Catheters IV Catheter Type (from Nrs): PICC Line Central line still needed: Yes Assessment/Plan Chief Complaint/Hosp Course ASSESSMENT AND PLAN: 1. History of Burkitt lymphoma. Continue chemotherapy as per oncology. CT of the neck: No significant changes from prior studies 2. History of renal insufficiency. Stable, continue IV fluids. 3. History of transaminitis. Stable, likely secondary to chemotherapy, follow up liver function tests. 4. Essential hypertension, well controlled. 5. Michelle thyroiditis. The patient has been followed up with electronics worker as outpatient. 6. Intractable nausea. Well-controlled Reglan Zofran and Tigan 7. Pancytopenia. Likely postchemotherapy, follow-up core feeder recommendation for transfusion, stable 8. Hypokalemia, stable, follow-up electrolytes in a.m. 9. Thrombocytopenia, likely secondary to chemotherapy, no evidence of bleeding , stable -For deep venous thrombosis prophylaxis on sequential compression devices. - For gastrointestinal prophylaxis, place the patient on Pepcid. We will continue to monitor patient closely. Further recommendations, management and treatment as per clinical course. Disposition as per core feeder oncologist recommendations Problems: Subjective 24 Hr Interval Summary Free Text/Dictation Patient denies of any chest pain or shortness of breath Tolerating oral intake Denies of any abdominal pain, nausea vomiting Exam/Review of Systems Vital Signs Vitals Vital Signs Date Time Temp Pulse Resp B/P Pulse Ox O2 Delivery O2 Flow Rate FiO2 09/03/16 07:00 98.7 87 20 118/73 97 09/02/16 00:00 Room Air Intake and Output 09/02/16 09/02/16 09/03/16 14:57 22:57 06:57 Intake Total 1450 ml 1140 ml Balance 1450 ml 1140 ml Exam General: The patient is well-developed, Not in acute distress. HEENT: Atraumatic, normocephalic. The pupils are equal and round . Neck: Supple with full range of motion. Chest: Normal expansion of the thorax during inspiration Lungs: Clear to auscultation bilaterally Heart: Normal S1-S2, Regular rhythm and rate. Abdomen: Soft , nontender, nondistended , bowel sounds are present. Extremities: Normal to inspection, no edema no cyanosis Neurologic: Normal mental status,The patient is awake, alert and oriented . Results Result Diagram: 09/03/16 0700 09/03/16 0445 Results 24 hrs Laboratory Tests Test 09/03/16 04:45 09/03/16 07:00 Alanine Aminotransferase (ALT/SGPT) 114 H Albumin 2.7 L Albumin/Globulin Ratio 1.22 Alkaline Phosphatase 126 H Anion Gap 13 Aspartate Amino Transf (AST/SGOT) 89 H Blast Cells % 1.0 H 2.0 H Blastocytes # 0.0 0.1 Blood Urea Nitrogen 7 Calcium Level 8.2 L Carbon Dioxide Level 26 Chloride Level 106 Creatinine 0.35 L Direct Bilirubin 0.00 Eosinophils # 0.1 0.1 Eosinophils % 4.0 3.0 Globulin 2.20 Glucose Level 92 Hematocrit 23.6 L 23.5 L Hemoglobin 7.6 L 7.4 L Indirect Bilirubin 0.1 Lymphocytes # 0.5 L 0.4 L Lymphocytes % 18.0 13.0 L Mean Corpuscular Hemoglobin 30.3 29.4 Mean Corpuscular Hemoglobin Concent 32.2 31.5 L Mean Corpuscular Volume 94.0 93.3 Mean Platelet Volume 10.4 9.5 Monocytes # 0.1 L 0.1 L Monocytes % 2.0 4.0 Neutrophils # 2.1 2.2 Neutrophils % 75.0 76.0 Platelet Count 99 L 85 L Potassium Level 3.5 Red Blood Count 2.51 L 2.52 L Red Cell Distribution Width 16.1 H 16.4 H Sodium Level 141 Total Bilirubin 0.1 L Total Protein 4.9 L White Blood Count 2.8 #L 2.9 L Basophils # 0.0 Basophils % 1.0 Ovalocytes 1+ Reactive Lymphocytes % 1.0 Tear Drop Cells 1+ Medications Medications Current Medications Sodium Chloride (NS) 1,000 ml @ 70 mls/hr [id number] IV Last administered on 09/03 04:33; Admin Dose 70 MLS/HR; Start 08/18/16 at 11:00 Diphenhydramine HCl (Benadryl) 25 mg Q4 PRN IV ALLERGIC REACTION Last administered on 08/31/16 01:25; Admin Dose 25 MG; Start 08/18/16 at 13:30 Meperidine HCl (Demerol) 25 mg Q2 PRN IV PAIN Last administered on 08/20/16 16: 47; Admin Dose 25 MG; Start 08/18/16 at 13:30 Dexamethasone (Decadron) 10 mg Q4 PRN IV ALLERGIC REACTION; Start 08/18/16 at 13:30 Metoclopramide HCl (Reglan) 5 mg Q6H PRN IV NAUSEA Last administered on 19:45; Admin Dose 5 MG; Start 08/18/16 at 13:30 Famotidine (Pepcid) 20 mg DAILY PO Last administered on 09/03/16 09:35; Admin Dose 20 MG; Start 08/19/16 at 09:00 Lorazepam (Ativan) 0.5 mg Q6H PRN PO ANXIETY Last administered on 08/19/16 01: 11; Admin Dose 0.5 MG; Start 08/18/16 at 13:30 Al Hydrox/Mg Hydrox/ Simethicone 30 ml 30 ml Q6H PRN PO GASTROINTESTINAL UPSET ; Start 08/19/16 at 14:30 Ondansetron HCl/ Dextrose (Zofran Inj/D5W) 54 ml @ 108 mls/hr Q6H PRN IV NAUSEA AND/OR VOMITING Last administered on 08/23/16 17:54; Admin Dose 108 MLS/ HR; Start 08/20/16 at 09:30 Metoclopramide HCl (Reglan) 20 mg Q6H PRN IV NAUSEA Last administered on 22:51; Admin Dose 20 MG; Start 08/20/16 at 09:30 Acetaminophen (Tylenol Tab) 650 mg Q6H PRN PO PAIN AND OR ELEVATED TEMP Last administered on 08/22/16 14:44; Admin Dose 650 MG; Start 08/20/16 at 23:30 Morphine Sulfate (morphine) 2 mg Q4H PRN IV SEVERE PAIN LEVEL 7-10 Last administered on 08/23/16 11:42; Admin Dose 2 MG; Start 08/21/16 at 11:00 Hydralazine HCl (Apresoline) 10 mg Q6H PRN IV ELEVATED BLOOD PRESSURE; Start at 13:00 Losartan Potassium 25 mg 25 mg DAILY PO Last administered on 09/03/16 09:36; Admin Dose 25 MG; Start 08/23/16 at 14:00 Acetaminophen (Ofirmev 1000mg/ 100ml Iv) 100 ml @ 400 mls/hr Q6 PRN IVPB HEADACHE Last administered on 08/23/16 20:39; Admin Dose 400 MLS/HR; Start at 20:30 Ondansetron HCl 4 mg 4 mg Q4H PRN IV NAUSEA AND/OR VOMITING; Start 08/27/16 at 20:30 Leucovorin Calcium/Sodium Chloride (Leucovorin Calcium Inj/NS) 50 ml @ 100 mls/ hr Q6H IV Last administered on 09/03/16 05:40; Admin Dose 100 MLS/HR; Start at 00:00 JANETH RAMOS MD Sep 03, 2016 10:34
--- NOTE | 2016-09-03 12:34 | CONS ---
Date/Time of Note Date/Time of Note DATE: 09/03/16 TIME: Assessment/Plan Assessment/Plan Chief Complaint/Hosp Course 56 yo female with massive neck mass causing tracheal compression and airway compromise s/p tracheostomy placement. 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 Pt was given cycle 1A and 1Bof R HyperCVAD but had only a partial response to therapy and severe side effects. We have thus changed her chemotherapy regimen. She is now s/p cycle 1B of R-IVAC and is now being admitted for cycle 2A of R-Codox M. Problems: Additional Assessment/Plan #Neck pain - STAT CT soft tissue neck with contrast demonstrated no residual disease and appeared the same as the study done in May. Large thyroid is likely secondary to goiter -once patient has completed chemotherapy, will perform another thyroid biopsy to ensure there is no residual disease # Burkitt's lymphoma -proceed with cycle 2A R CODOX -M. proceed with chemotherapy today -Rituximab (Rituxan) as follows: Day 1 is 08/18 * Cycle 1: 375 mg/m2 (660mg) IV on Day 1 -Cyclophosphamide (Cytoxan) 800 mg/m2 ( 1415mg) IV once per day on days 1 & 2 -Vincristine (Oncovin) 1.0 mg (dose reduced for neuropathy) days 1 & 15 . dose given 09/02 -Doxorubicin (Adriamycin) 50 mg/m2 (88mg) IV once on day 1 . dose reduced by 50 % for elevated transaminases -Methotrexate (MTX) 3100mg/m2 (175mg) IV over 1 hour then 900mg/m2 (1590mg) over 23 hours on day 15. will start IVF with 2 amps Na HCo3 prior to MTX infusion since Urine Ph > 7.0. Leucovorin 25mg IV q 4 hours will start 36 hours after MTX starts until MTX level is < 0.05. # Supportive Care and prophylactic meds -Acyclovir 400mg BID on hold for increased LFTS -fluconazole 100mg q day on hold for increased LFTS -Neupogen 300mcg q day. need to continue for 5 days total -Zofran 8mg IV q 6 + Reglan 20mg IV q 6 ordered prn nausea #Expected Pancytopenia -keep Hg> 8 and platelets > 10 -will given 1 unit of PRBCs today # Elevated AST and ALT, likely related to methotrexate. ultrasound shows fatty liver -continue to monitor LFTs, continue to increase.. D bili ok -chemotherapy has been dose reduced appropriately # Respiratory compromise -trach has been removed approximately 40 min were spent at patient's bedside and in coordination of her care Consultation Date/Type/Reason Admit Date/Time Aug 18, 2016 at 11:11 Initial Consult Date 08/18/16 Type of Consultation: Hematology Reason for Consultation burkitt's lymphoma Referring Provider: ABISAI BRANCH 24 HR Interval Summary Free Text/Dictation pt with low Hg. no acute overnight events Exam/Review of Systems Vital Signs Vitals Vital Signs Date Time Temp Pulse Resp B/P Pulse Ox O2 Delivery O2 Flow Rate FiO2 09/03/16 07:00 98.7 87 20 118/73 97 09/02/16 00:00 Room Air Intake and Output 09/02/16 09/02/16 09/03/16 15:00 23:00 07:00 Intake Total 1450 ml 1140 ml Balance 1450 ml 1140 ml Exam Constitutional: alert, oriented Psych: no complaints Head: atraumatic, normocephalic Eyes: nl conjunctiva ENMT: nl external ears & nose Neck: other (thyromegaly. no discrete mass) Respiratory: clear to auscultation, normal air movement Cardiovascular: nl pulses, regular rate and rhythm Gastrointestinal: soft Musculoskeletal: nl extremities to inspection, nl gait and stance Extremities: normal pulses Results Result Diagram: 09/03/16 0700 09/03/16 0445 Results 24 hrs Laboratory Tests Test 09/03/16 04:45 09/03/16 07:00 Alanine Aminotransferase (ALT/SGPT) 114 H Albumin 2.7 L Albumin/Globulin Ratio 1.22 Alkaline Phosphatase 126 H Anion Gap 13 Aspartate Amino Transf (AST/SGOT) 89 H Blast Cells % 1.0 H 2.0 H Blastocytes # 0.0 0.1 Blood Urea Nitrogen 7 Calcium Level 8.2 L Carbon Dioxide Level 26 Chloride Level 106 Creatinine 0.35 L Direct Bilirubin 0.00 Eosinophils # 0.1 0.1 Eosinophils % 4.0 3.0 Globulin 2.20 Glucose Level 92 Hematocrit 23.6 L 23.5 L Hemoglobin 7.6 L 7.4 L Indirect Bilirubin 0.1 Lymphocytes # 0.5 L 0.4 L Lymphocytes % 18.0 13.0 L Mean Corpuscular Hemoglobin 30.3 29.4 Mean Corpuscular Hemoglobin Concent 32.2 31.5 L Mean Corpuscular Volume 94.0 93.3 Mean Platelet Volume 10.4 9.5 Monocytes # 0.1 L 0.1 L Monocytes % 2.0 4.0 Neutrophils # 2.1 2.2 Neutrophils % 75.0 76.0 Platelet Count 99 L 85 L Potassium Level 3.5 Red Blood Count 2.51 L 2.52 L Red Cell Distribution Width 16.1 H 16.4 H Sodium Level 141 Total Bilirubin 0.1 L Total Protein 4.9 L White Blood Count 2.8 #L 2.9 L Basophils # 0.0 Basophils % 1.0 Ovalocytes 1+ Reactive Lymphocytes % 1.0 Tear Drop Cells 1+ Medications Medications Current Medications Sodium Chloride (NS) 1,000 ml @ 70 mls/hr [id number] IV Last administered on 09/03 04:33; Admin Dose 70 MLS/HR; Start 08/18/16 at 11:00 Diphenhydramine HCl (Benadryl) 25 mg Q4 PRN IV ALLERGIC REACTION Last administered on 08/31/16 01:25; Admin Dose 25 MG; Start 08/18/16 at 13:30 Meperidine HCl (Demerol) 25 mg Q2 PRN IV PAIN Last administered on 08/20/16 16: 47; Admin Dose 25 MG; Start 08/18/16 at 13:30 Dexamethasone (Decadron) 10 mg Q4 PRN IV ALLERGIC REACTION; Start 08/18/16 at 13:30 Metoclopramide HCl (Reglan) 5 mg Q6H PRN IV NAUSEA Last administered on 19:45; Admin Dose 5 MG; Start 08/18/16 at 13:30 Famotidine (Pepcid) 20 mg DAILY PO Last administered on 09/03/16 09:35; Admin Dose 20 MG; Start 08/19/16 at 09:00 Lorazepam (Ativan) 0.5 mg Q6H PRN PO ANXIETY Last administered on 08/19/16 01: 11; Admin Dose 0.5 MG; Start 08/18/16 at 13:30 Al Hydrox/Mg Hydrox/ Simethicone 30 ml 30 ml Q6H PRN PO GASTROINTESTINAL UPSET ; Start 08/19/16 at 14:30 Ondansetron HCl/ Dextrose (Zofran Inj/D5W) 54 ml @ 108 mls/hr Q6H PRN IV NAUSEA AND/OR VOMITING Last administered on 08/23/16 17:54; Admin Dose 108 MLS/ HR; Start 08/20/16 at 09:30 Metoclopramide HCl (Reglan) 20 mg Q6H PRN IV NAUSEA Last administered on 22:51; Admin Dose 20 MG; Start 08/20/16 at 09:30 Acetaminophen (Tylenol Tab) 650 mg Q6H PRN PO PAIN AND OR ELEVATED TEMP Last administered on 08/22/16 14:44; Admin Dose 650 MG; Start 08/20/16 at 23:30 Morphine Sulfate (morphine) 2 mg Q4H PRN IV SEVERE PAIN LEVEL 7-10 Last administered on 08/23/16 11:42; Admin Dose 2 MG; Start 08/21/16 at 11:00 Hydralazine HCl (Apresoline) 10 mg Q6H PRN IV ELEVATED BLOOD PRESSURE; Start at 13:00 Losartan Potassium 25 mg 25 mg DAILY PO Last administered on 09/03/16 09:36; Admin Dose 25 MG; Start 08/23/16 at 14:00 Acetaminophen (Ofirmev 1000mg/ 100ml Iv) 100 ml @ 400 mls/hr Q6 PRN IVPB HEADACHE Last administered on 08/23/16 20:39; Admin Dose 400 MLS/HR; Start at 20:30 Ondansetron HCl 4 mg 4 mg Q4H PRN IV NAUSEA AND/OR VOMITING; Start 08/27/16 at 20:30 Leucovorin Calcium/Sodium Chloride (Leucovorin Calcium Inj/NS) 50 ml @ 100 mls/ hr Q6H IV Last administered on 09/03/16 12:25; Admin Dose 100 MLS/HR; Start at 00:00 CHANDRIKA MERLOS M.D. Sep 03, 2016 12:34
[2016-09-03 22:10] VITALS: BP 108/53; RESP 20
[2016-09-04] MEDS: LEUCOVORIN CALCIUM IV SCH ×5 (00:32→23:52)
[2016-09-04] MEDS: SOD CHLORIDE 0.9% IV SCH ×5 (00:32→23:52)
[2016-09-04] MEDS: SOD CHLORIDE 0.9% 1,000 ML IV SCH ×3 (03:06→20:19)
[2016-09-04 05:29] LABS: POTASSIUM 3.6 mmol/L (3.5-5.1)
[2016-09-04 05:31] LABS: CREATININE 0.37 mg/dl (0.44-1.00)
[2016-09-04 05:32] LABS: ALBUMIN/GLOBULIN RATIO 1.36; BILIRUBIN,INDIRECT 0.6 mg/dl (0-1.1); BILIRUBIN,TOTAL 0.6 mg/dl (0.2-1.3); TOTAL PROTEIN 5.2 g/dl (6.1-8.1)
[2016-09-04 05:33] LABS: CALCIUM 8.8 mg/dl (8.4-10.2)
[2016-09-04 06:02] LABS: ADD SCAN DIFF NO
[2016-09-04 06:41] LABS: ABNORMAL IP MESSAGE 1; BASOPHILS % 0.4 % (0.0-2.0); EOSINOPHILS % 1.6 % (0.0-7.0); HEMATOCRIT 28.3 % (37.0-47.0); HEMOGLOBIN 9.5 g/dl (12.0-16.0); LYMPHOCYTES # 0.5 10^3/ul (0.8-2.9); LYMPHOCYTES % 18.6 % (15.0-51.0); MEAN CORPUSCULAR HEMOGLOBIN 30.7 pg (29.0-33.0); MEAN CORPUSCULAR HGB CONC 33.6 g/dl (32.0-37.0); MEAN CORPUSCULAR VOLUME 91.6 fl (82.0-101.0); MEAN PLATELET VOLUME 9.8 fl (7.4-10.4); MONOCYTE # 0.1 10^3/ul (0.3-0.9); MONOCYTES % 3.6 % (0.0-11.0); NEUTROPHIL # 1.9 10^3/ul (1.6-7.5); PLATELET COUNT 104 10^3/UL (140-415); RED BLOOD COUNT 3.09 10^6/ul (4.20-5.40); RED CELL DISTRIBUTION WIDTH 15.6 % (11.5-14.5); WHITE BLOOD COUNT 2.5 10^3/ul (4.8-10.8)
[2016-09-04 08:54] VITALS: BP 127/70; RESP 18
[2016-09-04] MEDS: FAMOTIDINE 20 MG TAB PO SCH (09:18)
[2016-09-04] MEDS: LOSARTAN 25 MG TAB PO SCH (09:18)
--- NOTE | 2016-09-04 10:37 | PN ---
Date/Time of Note Date/Time of Note DATE: 09/04/16 TIME: 10:36 Assessment/Plan VTE Prophylaxis VTE Prophylaxis Intervention: SCD's Lines/Catheters IV Catheter Type (from Nrs): PICC Line Central line still needed: Yes Assessment/Plan Chief Complaint/Hosp Course ASSESSMENT AND PLAN: 1. History of Burkitt lymphoma. Continue chemotherapy as per oncology. CT of the neck: No significant changes from prior studies 2. History of renal insufficiency. Stable, continue IV fluids. 3. History of transaminitis. Stable, likely secondary to chemotherapy, follow up liver function tests. 4. Essential hypertension, well controlled. 5. Michelle thyroiditis. The patient has been followed up with proof coins inspector as outpatient. 6. Intractable nausea. Well-controlled Reglan Zofran and Tigan 7. Pancytopenia. Likely postchemotherapy, follow-up advice clerk recommendation for transfusion, stable 8. Hypokalemia, stable, follow-up electrolytes in a.m. 9. Thrombocytopenia, likely secondary to chemotherapy, no evidence of bleeding , stable -For deep venous thrombosis prophylaxis on sequential compression devices. - For gastrointestinal prophylaxis, place the patient on Pepcid. We will continue to monitor patient closely. Further recommendations, management and treatment as per clinical course. Disposition as per advice clerk oncologist recommendations Problems: Subjective 24 Hr Interval Summary Free Text/Dictation Patient denies of any chest pain or shortness of breath Tolerating oral intake Ambulating without any discomfort with minimal assist Exam/Review of Systems Vital Signs Vitals Vital Signs Date Time Temp Pulse Resp B/P Pulse Ox O2 Delivery O2 Flow Rate FiO2 09/04/16 08:54 97.9 84 18 127/70 97 09/02/16 00:00 Room Air Intake and Output 09/03/16 09/03/16 09/04/16 15:00 23:00 07:00 Intake Total 970 ml 570 ml Output Total 800 ml Balance 170 ml 570 ml Exam General: The patient is well-developed, Not in acute distress. HEENT: Atraumatic, normocephalic. The pupils are equal and round . Neck: Supple with full range of motion. Surgical site is dry and clean, no evidence of hematoma Chest: Normal expansion of the thorax during inspiration Lungs: Clear to auscultation bilaterally Heart: Normal S1-S2, Regular rhythm and rate. Abdomen: Soft , nontender, nondistended , bowel sounds are present. Extremities: Normal to inspection, no edema no cyanosis Neurologic: Normal mental status,The patient is awake, alert and oriented . Results Result Diagram: 09/04/160 09/04/16 0440 Results 24 hrs Laboratory Tests Test 09/04/16 04:40 Alanine Aminotransferase (ALT/SGPT) 139 H Albumin 3.0 L Albumin/Globulin Ratio 1.36 Alkaline Phosphatase 129 H Anion Gap 13 Aspartate Amino Transf (AST/SGOT) 121 H Basophils # 0.0 Basophils % 0.4 Blood Urea Nitrogen 7 Calcium Level 8.8 Carbon Dioxide Level 27 Chloride Level 105 Creatinine 0.37 L Direct Bilirubin 0.00 Eosinophils # 0.0 Eosinophils % 1.6 Globulin 2.20 Glucose Level 93 Hematocrit 28.3 #L Hemoglobin 9.5 #L Indirect Bilirubin 0.6 Lymphocytes # 0.5 L Lymphocytes % 18.6 Mean Corpuscular Hemoglobin 30.7 Mean Corpuscular Hemoglobin Concent 33.6 Mean Corpuscular Volume 91.6 Mean Platelet Volume 9.8 Monocytes # 0.1 L Monocytes % 3.6 Neutrophils # 1.9 Neutrophils % 75.0 Nucleated Red Blood Cells # 0.0 Nucleated Red Blood Cells % 0.0 Platelet Count 104 #L Potassium Level 3.6 Red Blood Count 3.09 #L Red Cell Distribution Width 15.6 H Sodium Level 141 Total Bilirubin 0.6 Total Protein 5.2 L White Blood Count 2.5 L Medications Medications Current Medications Sodium Chloride (NS) 1,000 ml @ 70 mls/hr [id number] IV Last administered on 09/04 03:06; Admin Dose 70 MLS/HR; Start 08/18/16 at 11:00 Diphenhydramine HCl (Benadryl) 25 mg Q4 PRN IV ALLERGIC REACTION Last administered on 08/31/16 01:25; Admin Dose 25 MG; Start 08/18/16 at 13:30 Meperidine HCl (Demerol) 25 mg Q2 PRN IV PAIN Last administered on 08/20/16 16: 47; Admin Dose 25 MG; Start 08/18/16 at 13:30 Dexamethasone (Decadron) 10 mg Q4 PRN IV ALLERGIC REACTION; Start 08/18/16 at 13:30 Metoclopramide HCl (Reglan) 5 mg Q6H PRN IV NAUSEA Last administered on 19:45; Admin Dose 5 MG; Start 08/18/16 at 13:30 Famotidine (Pepcid) 20 mg DAILY PO Last administered on 09/04/16 09:18; Admin Dose 20 MG; Start 08/19/16 at 09:00 Lorazepam (Ativan) 0.5 mg Q6H PRN PO ANXIETY Last administered on 08/19/16 01: 11; Admin Dose 0.5 MG; Start 08/18/16 at 13:30 Al Hydrox/Mg Hydrox/ Simethicone 30 ml 30 ml Q6H PRN PO GASTROINTESTINAL UPSET ; Start 08/19/16 at 14:30 Ondansetron HCl/ Dextrose (Zofran Inj/D5W) 54 ml @ 108 mls/hr Q6H PRN IV NAUSEA AND/OR VOMITING Last administered on 08/23/16 17:54; Admin Dose 108 MLS/ HR; Start 08/20/16 at 09:30 Metoclopramide HCl (Reglan) 20 mg Q6H PRN IV NAUSEA Last administered on 22:51; Admin Dose 20 MG; Start 08/20/16 at 09:30 Acetaminophen (Tylenol Tab) 650 mg Q6H PRN PO PAIN AND OR ELEVATED TEMP Last administered on 08/22/16 14:44; Admin Dose 650 MG; Start 08/20/16 at 23:30 Morphine Sulfate (morphine) 2 mg Q4H PRN IV SEVERE PAIN LEVEL 7-10 Last administered on 08/23/16 11:42; Admin Dose 2 MG; Start 08/21/16 at 11:00 Hydralazine HCl (Apresoline) 10 mg Q6H PRN IV ELEVATED BLOOD PRESSURE; Start at 13:00 Losartan Potassium 25 mg 25 mg DAILY PO Last administered on 09/04/16 09:18; Admin Dose 25 MG; Start 08/23/16 at 14:00 Acetaminophen (Ofirmev 1000mg/ 100ml Iv) 100 ml @ 400 mls/hr Q6 PRN IVPB HEADACHE Last administered on 08/23/16 20:39; Admin Dose 400 MLS/HR; Start at 20:30 Ondansetron HCl 4 mg 4 mg Q4H PRN IV NAUSEA AND/OR VOMITING; Start 08/27/16 at 20:30 Leucovorin Calcium/Sodium Chloride (Leucovorin Calcium Inj/NS) 50 ml @ 100 mls/ hr Q6H IV Last administered on 09/04/16t 05:51; Admin Dose 100 MLS/HR; Start at 00:00 JANETH RAMOS MD Sep 04, 2016 10:37
--- NOTE | 2016-09-04 11:47 | CONS ---
Date/Time of Note Date/Time of Note DATE: 09/04/16 TIME: 11:42 Assessment/Plan Assessment/Plan Chief Complaint/Hosp Course 56 yo female with massive neck mass causing tracheal compression and airway compromise s/p tracheostomy placement. 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 Pt was given cycle 1A and 1Bof R HyperCVAD but had only a partial response to therapy and severe side effects. We have thus changed her chemotherapy regimen. She is now s/p cycle 1B of R-IVAC and has now completed cycle 2A of R-Codox M. Problems: Additional Assessment/Plan #Neck pain - STAT CT soft tissue neck with contrast demonstrated no residual disease and appeared the same as the study done in May. Large thyroid is likely secondary to goiter -once patient has completed chemotherapy, will perform another thyroid biopsy to ensure there is no residual disease. will do this as an out patient # Burkitt's lymphoma -proceed with cycle 2A R CODOX -M. proceed with chemotherapy today -Rituximab (Rituxan) as follows: Day 1 is 08/18 * Cycle 1: 375 mg/m2 (660mg) IV on Day 1 -Cyclophosphamide (Cytoxan) 800 mg/m2 ( 1415mg) IV once per day on days 1 & 2 -Vincristine (Oncovin) 1.0 mg (dose reduced for neuropathy) days 1 & 15 . dose given 09/02 -Doxorubicin (Adriamycin) 50 mg/m2 (88mg) IV once on day 1 . dose reduced by 50 % for elevated transaminases -Methotrexate (MTX) 3100mg/m2 (175mg) IV over 1 hour then 900mg/m2 (1590mg) over 23 hours on day 15. will start IVF with 2 amps Na HCo3 prior to MTX infusion since Urine Ph > 7.0. Leucovorin 25mg IV q 4 hours will start 36 hours after MTX starts until MTX level is < 0.05. 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 need to continue for 5 days total -Zofran 8mg IV q 6 + Reglan 20mg IV q 6 ordered prn nausea #Expected Pancytopenia -keep Hg> 8 and platelets > 10 -s/p 2 unit of PRBCs today # Elevated AST and ALT, likely related to methotrexate. ultrasound shows fatty liver -continue to monitor LFTs, continue to increase.. D bili ok -chemotherapy has been dose reduced appropriately # Respiratory compromise -trach has been removed approximately 40 min were spent at patient's bedside and in coordination of her care Consultation Date/Type/Reason Admit Date/Time Aug 18, 2016 at 11:11 Initial Consult Date 08/18/16 Type of Consultation: Hematology Reason for Consultation Burkitt's lymphoma Referring Provider: ABISAI BRANCH 24 HR Interval Summary Free Text/Dictation pt received 2 units of PRBCs yesterday. c/o neuropathy in fingertips Exam/Review of Systems Vital Signs Vitals Vital Signs Date Time Temp Pulse Resp B/P Pulse Ox O2 Delivery O2 Flow Rate FiO2 09/04/16 08:54 97.9 84 18 127/70 97 09/02/16 00:00 Room Air Intake and Output 09/03/16 09/03/16 09/04/16 15:00 23:00 07:00 Intake Total 970 ml 570 ml Output Total 800 ml Balance 170 ml 570 ml Exam Constitutional: alert, oriented Psych: no complaints Head: atraumatic, normocephalic Eyes: nl conjunctiva ENMT: nl external ears & nose Neck: thyromegaly Respiratory: clear to auscultation, normal air movement Cardiovascular: nl pulses, regular rate and rhythm Gastrointestinal: soft Musculoskeletal: nl extremities to inspection, nl gait and stance Extremities: normal pulses Results Result Diagram: 09/04/16 0440 09/04/16 0440 Results 24 hrs Laboratory Tests Test 09/04/16 04:40 Alanine Aminotransferase (ALT/SGPT) 139 H Albumin 3.0 L Albumin/Globulin Ratio 1.36 Alkaline Phosphatase 129 H Anion Gap 13 Aspartate Amino Transf (AST/SGOT) 121 H Basophils # 0.0 Basophils % 0.4 Blood Urea Nitrogen 7 Calcium Level 8.8 Carbon Dioxide Level 27 Chloride Level 105 Creatinine 0.37 L Direct Bilirubin 0.00 Eosinophils # 0.0 Eosinophils % 1.6 Globulin 2.20 Glucose Level 93 Hematocrit 28.3 #L Hemoglobin 9.5 #L Indirect Bilirubin 0.6 Lymphocytes # 0.5 L Lymphocytes % 18.6 Mean Corpuscular Hemoglobin 30.7 Mean Corpuscular Hemoglobin Concent 33.6 Mean Corpuscular Volume 91.6 Mean Platelet Volume 9.8 Monocytes # 0.1 L Monocytes % 3.6 Neutrophils # 1.9 Neutrophils % 75.0 Nucleated Red Blood Cells # 0.0 Nucleated Red Blood Cells % 0.0 Platelet Count 104 #L Potassium Level 3.6 Red Blood Count 3.09 #L Red Cell Distribution Width 15.6 H Sodium Level 141 Total Bilirubin 0.6 Total Protein 5.2 L White Blood Count 2.5 L Medications Medications Current Medications Sodium Chloride (NS) 1,000 ml @ 70 mls/hr [id number] IV Last administered on 09/04 03:06; Admin Dose 70 MLS/HR; Start 08/18/16 at 11:00 Diphenhydramine HCl (Benadryl) 25 mg Q4 PRN IV ALLERGIC REACTION Last administered on 08/31/16 01:25; Admin Dose 25 MG; Start 08/18/16 at 13:30 Meperidine HCl (Demerol) 25 mg Q2 PRN IV PAIN Last administered on 08/20/16 16: 47; Admin Dose 25 MG; Start 08/18/16 at 13:30 Dexamethasone (Decadron) 10 mg Q4 PRN IV ALLERGIC REACTION; Start 08/18/16 at 13:30 Metoclopramide HCl (Reglan) 5 mg Q6H PRN IV NAUSEA Last administered on 19:45; Admin Dose 5 MG; Start 08/18/16 at 13:30 Famotidine (Pepcid) 20 mg DAILY PO Last administered on 09/04/16 09:18; Admin Dose 20 MG; Start 08/19/16 at 09:00 Lorazepam (Ativan) 0.5 mg Q6H PRN PO ANXIETY Last administered on 08/19/16 01: 11; Admin Dose 0.5 MG; Start 08/18/16 at 13:30 Al Hydrox/Mg Hydrox/ Simethicone 30 ml 30 ml Q6H PRN PO GASTROINTESTINAL UPSET ; Start 08/19/16 at 14:30 Ondansetron HCl/ Dextrose (Zofran Inj/D5W) 54 ml @ 108 mls/hr Q6H PRN IV NAUSEA AND/OR VOMITING Last administered on 08/23/16 17:54; Admin Dose 108 MLS/ HR; Start 08/20/16 at 09:30 Metoclopramide HCl (Reglan) 20 mg Q6H PRN IV NAUSEA Last administered on 22:51; Admin Dose 20 MG; Start 08/20/16 at 09:30 Acetaminophen (Tylenol Tab) 650 mg Q6H PRN PO PAIN AND OR ELEVATED TEMP Last administered on 08/22/16 14:44; Admin Dose 650 MG; Start 08/20/16 at 23:30 Morphine Sulfate (morphine) 2 mg Q4H PRN IV SEVERE PAIN LEVEL 7-10 Last administered on 08/23/16 11:42; Admin Dose 2 MG; Start 08/21/16 at 11:00 Hydralazine HCl (Apresoline) 10 mg Q6H PRN IV ELEVATED BLOOD PRESSURE; Start at 13:00 Losartan Potassium 25 mg 25 mg DAILY PO Last administered on 09/04/16 09:18; Admin Dose 25 MG; Start 08/23/16 at 14:00 Acetaminophen (Ofirmev 1000mg/ 100ml Iv) 100 ml @ 400 mls/hr Q6 PRN IVPB HEADACHE Last administered on 08/23/16 20:39; Admin Dose 400 MLS/HR; Start at 20:30 Ondansetron HCl 4 mg 4 mg Q4H PRN IV NAUSEA AND/OR VOMITING; Start 08/27/16 at 20:30 Leucovorin Calcium/Sodium Chloride (Leucovorin Calcium Inj/NS) 50 ml @ 100 mls/ hr Q6H IV Last administered on 09/04/16 05:51; Admin Dose 100 MLS/HR; Start at 00:00 CHANDRIKA MERLOS M.D. Sep 04, 2016 11:47
[2016-09-04] MEDS: GABAPENTIN 100 MG CAP PO SCH ×2 (14:07→20:40)
[2016-09-04 20:11] VITALS: BP 112/76; RESP 20
[2016-09-04] MEDS: COLLAGENASE 30 GM TUBE TOP SCH (21:30)
[2016-09-05 04:58] LABS: ADD SCAN DIFF NO
[2016-09-05 05:02] LABS: ABNORMAL IP MESSAGE 1; BASOPHILS % 0.3 % (0.0-2.0); EOSINOPHILS % 0.9 % (0.0-7.0); HEMATOCRIT 28.9 % (37.0-47.0); HEMOGLOBIN 9.6 g/dl (12.0-16.0); LYMPHOCYTES # 0.5 10^3/ul (0.8-2.9); LYMPHOCYTES % 13.7 % (15.0-51.0); MEAN CORPUSCULAR HEMOGLOBIN 30.1 pg (29.0-33.0); MEAN CORPUSCULAR HGB CONC 33.2 g/dl (32.0-37.0); MEAN CORPUSCULAR VOLUME 90.6 fl (82.0-101.0); MEAN PLATELET VOLUME 9.7 fl (7.4-10.4); MONOCYTE # 0.1 10^3/ul (0.3-0.9); MONOCYTES % 3.2 % (0.0-11.0); NEUTROPHIL # 2.8 10^3/ul (1.6-7.5); NEUTROPHILS % 81.6 % (39.0-77.0); PLATELET COUNT 104 10^3/UL (140-415); RED BLOOD COUNT 3.19 10^6/ul (4.20-5.40); RED CELL DISTRIBUTION WIDTH 15.1 % (11.5-14.5); WHITE BLOOD COUNT 3.4 10^3/ul (4.8-10.8)
[2016-09-05 05:18] LABS: POTASSIUM 3.8 mmol/L (3.5-5.1)
[2016-09-05 05:20] LABS: CREATININE 0.38 mg/dl (0.44-1.00)
[2016-09-05 05:21] LABS: ALBUMIN/GLOBULIN RATIO 1.36; BILIRUBIN,INDIRECT 0.6 mg/dl (0-1.1); BILIRUBIN,TOTAL 0.6 mg/dl (0.2-1.3); TOTAL PROTEIN 5.2 g/dl (6.1-8.1)
[2016-09-05] MEDS: LEUCOVORIN CALCIUM IV SCH ×4 (05:48→23:13)
[2016-09-05] MEDS: SOD CHLORIDE 0.9% IV SCH ×4 (05:48→23:13)
[2016-09-05 08:22] VITALS: BP 107/55; RESP 18
[2016-09-05] MEDS: LOSARTAN 25 MG TAB PO SCH (09:00)
[2016-09-05] MEDS: FAMOTIDINE 20 MG TAB PO SCH (09:12)
[2016-09-05] MEDS: GABAPENTIN 100 MG CAP PO SCH ×3 (09:12→20:56)
[2016-09-05] MEDS: COLLAGENASE 30 GM TUBE TOP SCH (09:15)
--- NOTE | 2016-09-05 12:00 | PN ---
Date/Time of Note Date/Time of Note DATE: 09/05/16 TIME: 11:50 Assessment/Plan VTE Prophylaxis VTE Prophylaxis Intervention: SCD's Lines/Catheters IV Catheter Type (from Nrs): PICC Line Central line still needed: Yes Urinary Cath still in place: No Assessment/Plan Chief Complaint/Hosp Course ASSESSMENT AND PLAN: 1. History of Burkitt lymphoma. Status post chemotherapy as per oncology. CT of the neck: No significant changes from prior studies Follow up Methotrexate level daily 2. History of renal insufficiency. Stable, continue IV fluids. 3. History of transaminitis. Stable, likely secondary to chemotherapy, follow up liver function tests. 4. Essential hypertension, well controlled. 5. Michelle thyroiditis. The patient has been followed up with content writer as outpatient. 6. Intractable nausea. Well-controlled Reglan Zofran and Tigan 7. Pancytopenia. Likely postchemotherapy, follow-up synoptic meteorologist recommendation for transfusion, stable 8. Hypokalemia, stable, follow-up electrolytes in a.m. 9. Thrombocytopenia, likely secondary to chemotherapy, no evidence of bleeding , stable -For deep venous thrombosis prophylaxis on sequential compression devices. - For gastrointestinal prophylaxis, place the patient on Pepcid. We will continue to monitor patient closely. Further recommendations, management and treatment as per clinical course. Disposition as per synoptic meteorologist oncologist recommendations Follow up Methotrexate level daily, and as per oncologist patient may be discharged when the level is less than 0.05 Problems: Subjective 24 Hr Interval Summary Free Text/Dictation She denies any chest pain shortness of breath No nausea vomiting diarrhea Tolerating oral intake Ambulating with minimal assist Exam/Review of Systems Vital Signs Vitals Vital Signs Date Time Temp Pulse Resp B/P Pulse Ox O2 Delivery O2 Flow Rate FiO2 09/05/16 08:22 98.0 91 18 107/55 95 09/02/16 00:00 Room Air Intake and Output 09/04/16 09/04/16 09/05/16 14:59 22:59 06:59 Intake Total 250 ml 1760 ml 50 ml Output Total 400 ml Balance -150 ml 1760 ml 50 ml Exam General: The patient is well-developed, Not in acute distress. Evidence of hair loss HEENT: Atraumatic, normocephalic. The pupils are equal and round . Neck: Supple with full range of motion. Chest: Normal expansion of the thorax during inspiration Lungs: Clear to auscultation bilaterally Heart: Normal S1-S2, Regular rhythm and rate. Abdomen: Soft , nontender, nondistended , bowel sounds are present. Extremities: Normal to inspection, no edema no cyanosis Neurologic: Normal mental status,The patient is awake, alert and oriented . Results Result Diagram: 09/05/16 0430 09/05/16 0430 Results 24 hrs Laboratory Tests Test 09/05/16 04:30 09/05/16 08:35 Alanine Aminotransferase (ALT/SGPT) 188 H Albumin 3.0 L Albumin/Globulin Ratio 1.36 Alkaline Phosphatase 133 H Anion Gap 12 Aspartate Amino Transf (AST/SGOT) 171 H Basophils # 0.0 Basophils % 0.3 Blood Urea Nitrogen 9 Calcium Level 9.0 Carbon Dioxide Level 28 Chloride Level 104 Creatinine 0.38 L Direct Bilirubin 0.00 Eosinophils # 0.0 Eosinophils % 0.9 Globulin 2.20 Glucose Level 108 Hematocrit 28.9 L Hemoglobin 9.6 L Indirect Bilirubin 0.6 Lymphocytes # 0.5 L Lymphocytes % 13.7 L Mean Corpuscular Hemoglobin 30.1 Mean Corpuscular Hemoglobin Concent 33.2 Mean Corpuscular Volume 90.6 Mean Platelet Volume 9.7 Monocytes # 0.1 L Monocytes % 3.2 Neutrophils # 2.8 Neutrophils % 81.6 H Nucleated Red Blood Cells # 0.0 Nucleated Red Blood Cells % 0.0 Platelet Count 104 L Potassium Level 3.8 Red Blood Count 3.19 L Red Cell Distribution Width 15.1 H Sodium Level 140 Total Bilirubin 0.6 Total Protein 5.2 L White Blood Count 3.4 #L Lactate Dehydrogenase 743 H Medications Medications Current Medications Sodium Chloride (NS) 1,000 ml @ 70 mls/hr [id number] IV Last administered on 09/04 20:19; Admin Dose 70 MLS/HR; Start 08/18/16 at 11:00 Diphenhydramine HCl (Benadryl) 25 mg Q4 PRN IV ALLERGIC REACTION Last administered on 08/31/16 01:25; Admin Dose 25 MG; Start 08/18/16 at 13:30 Meperidine HCl (Demerol) 25 mg Q2 PRN IV PAIN Last administered on 08/20/16 16: 47; Admin Dose 25 MG; Start 08/18/16 at 13:30 Dexamethasone (Decadron) 10 mg Q4 PRN IV ALLERGIC REACTION; Start 08/18/16 at 13:30 Metoclopramide HCl (Reglan) 5 mg Q6H PRN IV NAUSEA Last administered on 19:45; Admin Dose 5 MG; Start 08/18/16 at 13:30 Famotidine (Pepcid) 20 mg DAILY PO Last administered on 09/05/16 09:12; Admin Dose 20 MG; Start 08/19/16 at 09:00 Lorazepam (Ativan) 0.5 mg Q6H PRN PO ANXIETY Last administered on 08/19/16 01: 11; Admin Dose 0.5 MG; Start 08/18/16 at 13:30 Al Hydrox/Mg Hydrox/ Simethicone 30 ml 30 ml Q6H PRN PO GASTROINTESTINAL UPSET ; Start 08/19/16 at 14:30 Ondansetron HCl/ Dextrose (Zofran Inj/D5W) 54 ml @ 108 mls/hr Q6H PRN IV NAUSEA AND/OR VOMITING Last administered on 08/23/16 17:54; Admin Dose 108 MLS/ HR; Start 08/20/16 at 09:30 Metoclopramide HCl (Reglan) 20 mg Q6H PRN IV NAUSEA Last administered on 22:51; Admin Dose 20 MG; Start 08/20/16 at 09:30 Acetaminophen (Tylenol Tab) 650 mg Q6H PRN PO PAIN AND OR ELEVATED TEMP Last administered on 08/22/16 14:44; Admin Dose 650 MG; Start 08/20/16 at 23:30 Morphine Sulfate (morphine) 2 mg Q4H PRN IV SEVERE PAIN LEVEL 7-10 Last administered on 08/23/16 11:42; Admin Dose 2 MG; Start 08/21/16 at 11:00 Hydralazine HCl (Apresoline) 10 mg Q6H PRN IV ELEVATED BLOOD PRESSURE; Start at 13:00 Losartan Potassium 25 mg 25 mg DAILY PO Last administered on 09/04/16 09:18; Admin Dose 25 MG; Start 08/23/16 at 14:00 Acetaminophen (Ofirmev 1000mg/ 100ml Iv) 100 ml @ 400 mls/hr Q6 PRN IVPB HEADACHE Last administered on 08/23/16 20:39; Admin Dose 400 MLS/HR; Start at 20:30 Ondansetron HCl 4 mg 4 mg Q4H PRN IV NAUSEA AND/OR VOMITING Last administered on 09/04/16 20:40; Admin Dose 4 MG; Start 08/27/16 at 20:30 Leucovorin Calcium/Sodium Chloride (Leucovorin Calcium Inj/NS) 50 ml @ 100 mls/ hr Q6H IV Last administered on 09/05/16 05:48; Admin Dose 100 MLS/HR; Start at 00:00 Gabapentin (Neurontin) 100 mg TID PO Last administered on 09/05/16 09:12; Admin Dose 100 MG; Start 09/04/16 at 13:00 Collagenase (Santyl) 1 applic DAILY TOP Last administered on 09/05/16 09:15; Admin Dose 1 APPLIC; Start 09/04/16 at 18:00 JANETH ARMOS MD Sep 05, 2016 11:59
[2016-09-05] MEDS: SOD CHLORIDE 0.9% 1,000 ML IV SCH (12:34)
--- NOTE | 2016-09-05 14:13 | CONS ---
Date/Time of Note Date/Time of Note DATE: 09/05/16 TIME: 14:11 Assessment/Plan Assessment/Plan Chief Complaint/Hosp Course 56 yo female with massive neck mass causing tracheal compression and airway compromise s/p tracheostomy placement. 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 Pt was given cycle 1A and 1Bof R HyperCVAD but had only a partial response to therapy and severe side effects. We have thus changed her chemotherapy regimen. She is now s/p cycle 1B of R-IVAC and has now completed cycle 2A of R-Codox M. Problems: Additional Assessment/Plan #Neck pain - STAT CT soft tissue neck with contrast demonstrated no residual disease and appeared the same as the study done in May. Large thyroid is likely secondary to goiter -once patient has completed chemotherapy, will perform another thyroid biopsy to ensure there is no residual disease. will do this as an out patient # Burkitt's lymphoma -proceed with cycle 2A R CODOX -M. proceed with chemotherapy today -Rituximab (Rituxan) as follows: Day 1 is 08/18 * Cycle 1: 375 mg/m2 (660mg) IV on Day 1 -Cyclophosphamide (Cytoxan) 800 mg/m2 ( 1415mg) IV once per day on days 1 & 2 -Vincristine (Oncovin) 1.0 mg (dose reduced for neuropathy) days 1 & 15 . dose given 09/02 -Doxorubicin (Adriamycin) 50 mg/m2 (88mg) IV once on day 1 . dose reduced by 50 % for elevated transaminases -Methotrexate (MTX) 3100mg/m2 (175mg) IV over 1 hour then 900mg/m2 (1590mg) over 23 hours on day 15. will start IVF with 2 amps Na HCo3 prior to MTX infusion since Urine Ph > 7.0. Leucovorin 25mg IV q 4 hours will start 36 hours after MTX starts until MTX level is < 0.05. -ONCE Methotrexate level is < 0.05, patient can be discharged home. PICC line can be removed upon discharge # Neuropathy - likely from vincristine which was dose reduced to 50% - start Gabapentin 100 mg TID # Supportive Care and prophylactic meds -Acyclovir 400mg BID on hold for increased LFTS -fluconazole 100mg q day on hold for increased LFTS -Neupogen 300mcg q day. need to continue for 5 days total -Zofran 8mg IV q 6 + Reglan 20mg IV q 6 ordered prn nausea #Expected Pancytopenia -keep Hg> 8 and platelets > 10 -s/p 2 unit of PRBCs today # Elevated AST and ALT, likely related to methotrexate. ultrasound shows fatty liver -continue to monitor LFTs, continue to increase.. D bili ok -chemotherapy has been dose reduced appropriately # Respiratory compromise -trach has been removed approximately 40 min were spent at patient's bedside and in coordination of her care Consultation Date/Type/Reason Admit Date/Time Aug 18, 2016 at 11:11 Initial Consult Date 08/18/16 Type of Consultation: Hematology Reason for Consultation burkitt's lymphoma Referring Provider: ABISAI BRANCH 24 HR Interval Summary Free Text/Dictation no acute overnight events. pt feels well. neuropathy has improved Exam/Review of Systems Vital Signs Vitals Vital Signs Date Time Temp Pulse Resp B/P Pulse Ox O2 Delivery O2 Flow Rate FiO2 09/05/16 08:22 98.0 91 18 107/55 95 09/02/16 00:00 Room Air Intake and Output 09/04/16 09/04/16 09/05/16 15:00 23:00 07:00 Intake Total 250 ml 1760 ml 50 ml Output Total 400 ml Balance -150 ml 1760 ml 50 ml Exam Constitutional: alert, oriented Psych: no complaints Head: normocephalic Eyes: nl conjunctiva ENMT: nl external ears & nose Neck: non-tender, other (thyromegaly), supple Respiratory: clear to auscultation Cardiovascular: regular rate and rhythm Gastrointestinal: soft Musculoskeletal: nl extremities to inspection, nl gait and stance Results Result Diagram: 09/05/160 09/05/16 0430 Results 24 hrs Laboratory Tests Test 09/05/16 04:30 09/05/16 08:35 Alanine Aminotransferase (ALT/SGPT) 188 H Albumin 3.0 L Albumin/Globulin Ratio 1.36 Alkaline Phosphatase 133 H Anion Gap 12 Aspartate Amino Transf (AST/SGOT) 171 H Basophils # 0.0 Basophils % 0.3 Blood Urea Nitrogen 9 Calcium Level 9.0 Carbon Dioxide Level 28 Chloride Level 104 Creatinine 0.38 L Direct Bilirubin 0.00 Eosinophils # 0.0 Eosinophils % 0.9 Globulin 2.20 Glucose Level 108 Hematocrit 28.9 L Hemoglobin 9.6 L Indirect Bilirubin 0.6 Lymphocytes # 0.5 L Lymphocytes % 13.7 L Mean Corpuscular Hemoglobin 30.1 Mean Corpuscular Hemoglobin Concent 33.2 Mean Corpuscular Volume 90.6 Mean Platelet Volume 9.7 Monocytes # 0.1 L Monocytes % 3.2 Neutrophils # 2.8 Neutrophils % 81.6 H Nucleated Red Blood Cells # 0.0 Nucleated Red Blood Cells % 0.0 Platelet Count 104 L Potassium Level 3.8 Red Blood Count 3.19 L Red Cell Distribution Width 15.1 H Sodium Level 140 Total Bilirubin 0.6 Total Protein 5.2 L White Blood Count 3.4 #L Lactate Dehydrogenase 743 H Medications Medications Current Medications Sodium Chloride (NS) 1,000 ml @ 70 mls/hr [id number] IV Last administered on 09/05 12:34; Admin Dose 70 MLS/HR; Start 08/18/16 at 11:00 Diphenhydramine HCl (Benadryl) 25 mg Q4 PRN IV ALLERGIC REACTION Last administered on 08/31/16 01:25; Admin Dose 25 MG; Start 08/18/16 at 13:30 Meperidine HCl (Demerol) 25 mg Q2 PRN IV PAIN Last administered on 08/20/16 16: 47; Admin Dose 25 MG; Start 08/18/16 at 13:30 Dexamethasone (Decadron) 10 mg Q4 PRN IV ALLERGIC REACTION; Start 08/18/16 at 13:30 Metoclopramide HCl (Reglan) 5 mg Q6H PRN IV NAUSEA Last administered on 19:45; Admin Dose 5 MG; Start 08/18/16 at 13:30 Famotidine (Pepcid) 20 mg DAILY PO Last administered on 09/05/16 09:12; Admin Dose 20 MG; Start 08/19/16 at 09:00 Lorazepam (Ativan) 0.5 mg Q6H PRN PO ANXIETY Last administered on 08/19/16 01: 11; Admin Dose 0.5 MG; Start 08/18/16 at 13:30 Al Hydrox/Mg Hydrox/ Simethicone 30 ml 30 ml Q6H PRN PO GASTROINTESTINAL UPSET ; Start 08/19/16 at 14:30 Ondansetron HCl/ Dextrose (Zofran Inj/D5W) 54 ml @ 108 mls/hr Q6H PRN IV NAUSEA AND/OR VOMITING Last administered on 08/23/16 17:54; Admin Dose 108 MLS/ HR; Start 08/20/16 at 09:30 Metoclopramide HCl (Reglan) 20 mg Q6H PRN IV NAUSEA Last administered on 22:51; Admin Dose 20 MG; Start 08/20/16 at 09:30 Acetaminophen (Tylenol Tab) 650 mg Q6H PRN PO PAIN AND OR ELEVATED TEMP Last administered on 08/22/16 14:44; Admin Dose 650 MG; Start 08/20/16 at 23:30 Morphine Sulfate (morphine) 2 mg Q4H PRN IV SEVERE PAIN LEVEL 7-10 Last administered on 08/23/16 11:42; Admin Dose 2 MG; Start 08/21/16 at 11:00 Hydralazine HCl (Apresoline) 10 mg Q6H PRN IV ELEVATED BLOOD PRESSURE; Start at 13:00 Losartan Potassium 25 mg 25 mg DAILY PO Last administered on 09/04/16 09:18; Admin Dose 25 MG; Start 08/23/16 at 14:00 Acetaminophen (Ofirmev 1000mg/ 100ml Iv) 100 ml @ 400 mls/hr Q6 PRN IVPB HEADACHE Last administered on 08/23/16 20:39; Admin Dose 400 MLS/HR; Start at 20:30 Ondansetron HCl 4 mg 4 mg Q4H PRN IV NAUSEA AND/OR VOMITING Last administered on 09/04/16 20:40; Admin Dose 4 MG; Start 08/27/16 at 20:30 Leucovorin Calcium/Sodium Chloride (Leucovorin Calcium Inj/NS) 50 ml @ 100 mls/ hr Q6H IV Last administered on 09/05/16 12:29; Admin Dose 100 MLS/HR; Start at 00:00 Gabapentin (Neurontin) 100 mg TID PO Last administered on 09/05/16 12:29; Admin Dose 100 MG; Start 09/04/16 at 13:00 Collagenase (Santyl) 1 applic DAILY TOP Last administered on 09/05/16 09:15; Admin Dose 1 APPLIC; Start 09/04/16 at 18:00 CHANDRIKA MERLOS M.D. 17, 2017 14:13
[2016-09-05 20:11] VITALS: BP 107/61; RESP 20
[2016-09-06] MEDS: SOD CHLORIDE 0.9% 1,000 ML IV SCH (05:32)
[2016-09-06 05:33] LABS: ADD SCAN DIFF NO
[2016-09-06 05:36] LABS: POTASSIUM 3.5 mmol/L (3.5-5.1)
[2016-09-06 05:38] LABS: BILIRUBIN,INDIRECT 0.5 mg/dl (0-1.1); BILIRUBIN,TOTAL 0.5 mg/dl (0.2-1.3); CREATININE 0.34 mg/dl (0.44-1.00)
[2016-09-06 05:39] LABS: ALBUMIN/GLOBULIN RATIO 1.3; CALCIUM 8.7 mg/dl (8.4-10.2); TOTAL PROTEIN 5.3 g/dl (6.1-8.1)
[2016-09-06 05:43] LABS: ABNORMAL IP MESSAGE 1; BASOPHILS % 0.3 % (0.0-2.0); EOSINOPHILS % 0.6 % (0.0-7.0); HEMATOCRIT 26.8 % (37.0-47.0); HEMOGLOBIN 9.1 g/dl (12.0-16.0); LYMPHOCYTES # 0.5 10^3/ul (0.8-2.9); LYMPHOCYTES % 16.5 % (15.0-51.0); MEAN CORPUSCULAR HEMOGLOBIN 30.8 pg (29.0-33.0); MEAN CORPUSCULAR VOLUME 90.8 fl (82.0-101.0); MEAN PLATELET VOLUME 10.2 fl (7.4-10.4); MONOCYTE # 0.1 10^3/ul (0.3-0.9); MONOCYTES % 4.4 % (0.0-11.0); NEUTROPHIL # 2.5 10^3/ul (1.6-7.5); NEUTROPHILS % 77.9 % (39.0-77.0); PLATELET COUNT 105 10^3/UL (140-415); RED BLOOD COUNT 2.95 10^6/ul (4.20-5.40); WHITE BLOOD COUNT 3.2 10^3/ul (4.8-10.8)
[2016-09-06] MEDS: LEUCOVORIN CALCIUM IV SCH (06:00)
[2016-09-06] MEDS: SOD CHLORIDE 0.9% IV SCH (06:00)
[2016-09-06 07:00] VITALS: BP 119/56; RESP 18
[2016-09-06] MEDS: FAMOTIDINE 20 MG TAB PO SCH (08:46)
[2016-09-06] MEDS: LOSARTAN 25 MG TAB PO SCH (08:46)
[2016-09-06] MEDS: GABAPENTIN 100 MG CAP PO SCH ×2 (08:46→12:22)
[2016-09-06] MEDS: COLLAGENASE 30 GM TUBE TOP SCH (08:48)
--- NOTE | 2016-09-06 13:17 | PN ---
DATE: 09/06/2016 INTERNAL MEDICINE FOLLOWUP SUBJECTIVE: Chart reviewed. No significant events noted. The patient currently on room air satura ting 97%. PHYSICAL EXAMINATION: VITAL SIGNS: Blood pressure 119/56, pulse 89, respirations 18, temperature 98.4. HEENT: Pupils are equal and reactive to light. NECK: Supple, no JVD noted. No cervical adenopathy. No carotid bruits heard. LUNGS: Fair breath sounds bilaterally. CARDIOVASCULAR: S1, S2 normal. ABDOMEN: Soft, nontender. No organomegaly or masses noted. EXTREMITIES: No clubbing or cyanosis noted. NEUROLOGICAL: Awake. LABORATORY DATA: WBC 3.2, hemoglobin 9.1, hematocrit 26.8, platelets 105. Sodium 139, potassium 3. 5, chloride 103, CO2 of 27, BUN 7, creatinine 0.34, glucose 96. IMPRESSION: 1. Burkitt's lymphoma, status post chemotherapy. 2. History of hypertension. 3. History of Michelle thyroiditis. 4. Status post tracheostomy removal. RECOMMENDATIONS: 1. Continue current treatment. 2. Discharge planning is in process. 3. Disposition per manager beverage. Dictated By: DARLEEN DAVID MD, MA/YUNI Conf#: [id number] DID#: [id number]
--- NOTE | 2016-09-06 16:06 | PDOCDIS ---
Discharge Instructions CONDITION Patient Condition: Good HOME CARE INSTRUCTIONS: Diet Instructions: RegularSpecial Diet: mechanical soft ACTIVITY: Activity Restrictions: Slowly Increase Activity Rest between Activity Avoid heavy lifting Do not operate Machinery Do not operate Power Tool Avoid Heavy Housework Bathing Restrictions: Shower FOLLOW UP/APPOINTMENTS Appointments F/U WITH YOUR PCP AND ONCOLOGIST JOE BARTON Sep 06, 2016 16:06
--- NOTE | 2016-09-07 06:43 | DS ---
DATE OF ADMISSION: 08/18/2016 DATE OF DISCHARGE: 09/06/2016 DISCHARGE DIAGNOSES: 1. Progressive lymphoma status post chemotherapy. 2. Hypertension. 3. History of Michelle thyroiditis. 4. Status post tracheostomy removal. HOSPITAL COURSE: The patient is a 56-year-old female with a history of neck mass status post trache ostomy and progressive lymphoma status post chemotherapy, history of neutropenic fever, MRSA infecti on, and anemia. The patient is followed by Dr. Thomas as an outpatient and was admitted for several rounds chemotherapy. Chemotherapy was given by Dr. Thomas during this hospitalization. The patient did have a CT during this hospitalization that showed no residual disease. The patient had a large thyroid secondary to goiter. Once the patient completes chemotherapy, another thyroid biopsy will h ave to be done to ensure no residual disease. This will be done as outpatient per oncology. The joe mclean does have neuropathy and was given Gabapentin. She was given prophylactic medications with ac yclovir, fluconazole, nystatin, and Zofran during the hospitalization. She did have some elevation of her LFTs which were felt to be secondary to methotrexate. Ultrasound showed fatty liver. The joe mclean had some respiratory compromise that resolved and the trach was removed. The patient was ashish red for discharge per Dr. Thomas. On the day of discharge, the patient's vitals, labs, and physical examination were stable. She had no acute complaints. All questions were answered. CONDITION ON DISCHARGE: Stable. DISPOSITION: To home. MEDICATIONS: The patient is to continue her usual home medications. It was felt that she can stop acyclovir, fluconazole, and nystatin. FOLLOWUP: The patient is to follow up with her PCP and Dr. Thomas. Greater than 30 minutes was spent coordinating discharge of patient. Dictated By: JOE BARTON MD BS/NTS Conf#: [id number] DID#: [id number]
== END 2016-09-06 17:35 | disposition home or self-care (01) | DRG 847 ==
LOC: MS1 11:11
PROVIDERS: ADMIT Family Medicine; ATTEND Family Medicine
PROC: 3E03305 Introduction of Other Antineoplastic into Peripheral Vein, Percutaneous Approach (ICD-10-PCS; principal; 2016-08-18)
PROC: 3E0430M Introduction of Antineoplastic, Monoclonal Antibody, into Central Vein, Percutaneous Approach (ICD-10-PCS; 2016-08-18)
DX: Z51.11 Encounter for antineoplastic chemotherapy (principal); C83.71 Burkitt lymphoma, lymph nodes of head, face, and neck; D61.818 Other pancytopenia; G62.9 Polyneuropathy, unspecified; I10 Essential (primary) hypertension; E06.3 Autoimmune thyroiditis; R74.0 Nonspecific elevation of levels of transaminase and lactic acid dehydrogenase [LDH]; R53.1 Weakness; R11.0 Nausea; E87.6 Hypokalemia; T45.1X5A Adverse effect of antineoplastic and immunosuppressive drugs, initial encounter; Y92.238 Other place in hospital as the place of occurrence of the external cause
CPT/HCPCS: 36430; 70490; 70491; 76700; 80048; 80053; 80076; 80299; 81003; 83615; 83735; 84100; 85025; 86644; 86704; 86706; 86709; 86803; 86850; 86900; 86901; 86920; 86945; 87340; 97110; 97116; 97163; 97530; J9310; J0131; J0696; J1100; J1200; J2175; J2270; J2405; J2765; J3475; J3480; J7030; J7040; J7050; J9000; J9070; J9260; J9370; P9016; Q9967